=== PATIENT | male | born 1985 | race Caucasian/White ===

== ENCOUNTER 2024-02-05 08:13 | Emergency (ER) | payer MEDICAID, SELFPAY ==
--- NOTE | ~2024-02-05 | XR_ITS ---
CHEST RADIOGRAPH CLINICAL HISTORY: seizure . COMPARISON: None available TECHNIQUE: Single portable view of the chest. FINDINGS The cardiomediastinal silhouette is unremarkable. Spinal stimulator projects over the left mid to lower lung field, obscuring the underlying parenchyma . Patchy groundglass opacification detected bilaterally, most concentrated the bilateral pulmonary kavon , probable sequelae of low lung volumes. No focal infiltrate. Visualized osseous structures and soft tissues are unremarkable. IMPRESSION: No focal infiltrate or effusion. Reviewed, dictated and finalized at location [facility]
[2024-02-05 08:15] VITALS: BP 125/82; PULSE 106; RESP 27; O2SAT 97
--- NOTE | 2024-02-05 08:18 | ED.GENADULT ---
HPI - General Adult General Chief complaint: Seizure Stated complaint: seizing Time Seen by Provider: 02/05/24 08:17 History of Present Illness HPI narrative: 38-year-old male with history of traumatic brain injury and seizure disorder presents to the emergency department for evaluation for recurrent seizure. Patient does have a vagal nerve stimulator in place. Patient typically follows up with Dr. Noble and [facility]. Patient typically stays at a senior living and [place] but is home for the holidays. Mother noticed he was having a seizure this morning and did use his vagal nerve stimulator. EMS was called for the persistent seizure in patient was treated with 20 mg of Valium intranasally times to by mother and than as additional 10 mg IV Versed my EMS. Upon arrival to the emergency department patient is alert making eye contact. Related Data Allergies Allergy/AdvReac Type Severity Reaction Status Date / Time marijuana (cannabis) AdvReac Hives Verified 02/05/24 08:31 cillins Allergy Hives Uncoded 02/05/24 08:31 Review of Systems Review of Systems: All systems reviewed & are unremarkable except as noted in HPI and below Exam Narrative: APPEARANCE: Postictal appearing upon arrival to the emergency department. HEAD: normocephalic, atraumatic. EYES: PERRLA/EOMI, conjunctivae clear. NOSE: Normal no drainage EARS:TMS clear with good light reflex. THROAT: Pharynx clear, no exudate. NECK: Supple. No adenopathy, no masses. RESPIRATORY: Airway patent, respirations nonlabored. Clear to auscultation bilaterally, no rales, rhonchi, wheezing. CARDIOVASCULAR: Regular rate and rhythm without murmurs rubs or gallops. ABDOMINAL: Soft, nontender, nondistended, normal bowel sounds MUSCULOSKELETAL: Moves all extremities. Strength/ROM intact, No edema, No calf tenderness. NEURO: Alert. Nonverbal SKIN: Warm, dry. Normal Color Course Vital Signs Vital signs: Vital Signs Pulse Rate 106 H 02/05/24 08:15 Respiratory Rate 27 H 02/05/24 08:15 Blood Pressure 125/82 02/05/24 08:15 Pulse Oximetry 97 02/05/24 08:15 Oxygen Delivery Room Air 02/05/24 08:15 Temperature 97.8 F 02/05/24 12:08 Pulse Rate 84 02/05/24 12:08 Respiratory Rate 18 02/05/24 12:08 Blood Pressure 110/79 02/05/24 12:08 Pulse Oximetry 96 02/05/24 12:08 Oxygen Delivery Room Air 02/05/24 08:47 Medical Decision Making MDM Narrative Medical decision making narrative: 38-year-old male with history of traumatic brain injury presented emergency department for evaluation for increased seizure activity. Patient does have a VNS stimulator and does have history of frequent seizures. Family felt that his seizure frequency had increased over the last 2 days. Mother states that overnight patient had multiple seizures and this morning he had to 20 minute seizures. Upon arrival to the emergency department patient was confused and agitated but no longer having seizure like activity. Patient continued to improve in the emergency department. Patient was afebrile with no leukocytosis and hemoglobin of 13.3 lactic acid of 2.1, no acute abnormalities on the UA and patient was negative for influenza RSV and for COVID. Chest x-ray showed no acute cardiopulmonary abnormality. I did discuss the case with [facility] neurology and they felt with the patient's history intractable seizures that this could still be managed as outpatient. The neurologist did not feel there is going to be any benefit to the patient for inpatient treatment. I did discuss this with the family and they are also comfortable taking the patient back home. They will have close follow-up with to have any medication changes. The neurologist on-call did not feel comfortable making any changes to the med list due to the patient's complex past medical history. Patient was well-appearing at time of discharge. Differential Diagnosis Differential Diagnosis: Status epilepticus, seizure, breakthrough seizure, medication noncompliance, sleep deprivation Vital Signs Vital Signs: Vital Signs Pulse Rate 106 H 02/05/24 08:15 Respiratory Rate 27 H 02/05/24 08:15 Blood Pressure 125/82 02/05/24 08:15 Pulse Oximetry 97 02/05/24 08:15 Oxygen Delivery Room Air 02/05/24 08:15 Temperature 97.8 F 02/05/24 12:08 Pulse Rate 84 02/05/24 12:08 Respiratory Rate 18 02/05/24 12:08 Blood Pressure 110/79 02/05/24 12:08 Pulse Oximetry 96 02/05/24 12:08 Oxygen Delivery Room Air 02/05/24 08:47 Lab Data Lab results reviewed: Yes I reviewed the patient's lab results. 02/05/24 08:55 02/05/24 08:55 Labs: Lab Results 02/05/24 02/05/24 Range/Units 08:55 08:57 WBC 5.3 (4.5-10.0) K/mm3 RBC 4.28 L (4.6-6.20) M/mm3 Hgb 13.3 L (14.0-18.0) g/dL Hct 38.3 L (42.0-52.0) % MCV 89.5 (80-100) fl MCH 31.1 (26-34) pg MCHC 34.7 (32-36) g/dl RDW 14.2 (11.5-14.5) % Plt Count 179 (150-375) k/mm3 MPV 8.9 (7.4-10.4) fl Immature Gran % (Auto) 0.4 (0-0.5) % Neut % (Auto) 59.9 (45.5-73.1) % Lymph % (Auto) 23.9 (18.3-44.2) % [place] % (Auto) 8.8 H (2.6-8.5) % Eos % (Auto) 4.9 H (0-4.4) % Baso % (Auto) 2.1 H (0.2-1.2) % Lymph # (Auto) 1.27 (0.9-3.2) K/mm3 [place] # (Auto) 0.5 (0.1-0.6) K/mm3 Eos # (Auto) 0.3 (0-0.3) K/mm3 Baso # (Auto) 0.1 (0.0-0.1) K/mm3 Abs Immat Gran (auto) 0.02 (0.00-0.031) K/mm3 Absolute Neuts (auto) 3.2 (1.3-6.7) K/mm3 Absolute Nucleated RBC 0.000 (0.0-0.012) K/mm3 Nucleated RBC % 0.0 (0.0-0.2) % Sodium 140 (137-145) mmol/L Potassium 4.0 (3.4-5.0) mmol/L Chloride 110 H (98-107) mmol/L Carbon Dioxide 24 (22-30) mmol/L Anion Gap 6 (4-12) mmol/L BUN 21 H (9-20) mg/dL Creatinine 0.90 (0.7-1.3) mg/dL Estim Creat Clear Calc 99 ml/min Estimated GFR > 60 (59 - ) Glucose 102 (65-110) mg/dL Lactic Acid 2.1 H (0.7-2.0) mmol/L Calcium 9.6 (8.4-10.2) mg/dL Total Bilirubin 0.6 (0.2-1.3) mg/dL AST 28 (17-59) U/L ALT 43 (6-50) U/L Alkaline Phosphatase 120 (38-126) U/L Total Protein 8.0 (6.3-8.2) g/dL Albumin 4.6 (3.5-5.1) g/dL Urine Color Yellow (Yellow) Urine Appearance Clear (Clear) Urine pH 6.5 (5.0-9.0) Ur Specific [place] 1.022 (1.001-1.035) Urine Protein Negative (Negative) mg/dL Urine Glucose (UA) Negative (Negative) mg/dL Urine Ketones Negative (Negative) mg/dL Ur Blood (Man) Negative (Negative) Urine Nitrate Negative (Negative) Urine Bilirubin Negative (Negative) Urine Urobilinogen 1.0 (<2.0) mg/dL Leukocyte Esterase Rfl Negative (Negative) CHAPIS/UL Influenza A (RT-PCR) Negative (Negative) Influenza B (RT-PCR) Negative (Negative) RSV (RT-PCR) Negative (Negative) SARS-CoV-2 RNA (RT-PCR) Negative (Negative) Imaging Data Radiologist's impression: Impressions Chest X-Ray 02/05/24 10:08 IMPRESSION: No focal infiltrate or effusion. Discharge Plan Discharge Clinical Impression: Intractable seizure disorder Patient Disposition: Home, Self-Care Condition: Stable Instructions: Antibiotic Form, Epilepsy (ED) Additional Instructions: Continue to have close follow-up with neurology for potential medication changes. Patient Language: Italian Follow-up/Referrals: Rajesh,MD Gulshan [Primary Care Provider] -
[2024-02-05] MEDS: LORazepam INJ (*CRX) 2 MG/ML VIAL IV PUSH (08:36)
[2024-02-05 08:47] VITALS: PULSE 86; O2SAT 96
[2024-02-05] MEDS: SODIUM CHLORIDE 0.9% IV 1,000 ML 999 ML IV CONT (09:00)
[2024-02-05 09:03] LABS: Basophils Absolute Auto 0.1 K/mm3 (0.0-0.1); Basophils Percent Auto 2.1 % (0.2-1.2); Eosinophils Absolute Auto 0.3 K/mm3 (0-0.3); Eosinophils Percent Auto 4.9 % (0-4.4); Hematocrit 38.3 % (42.0-52.0); Hemoglobin 13.3 g/dL (14.0-18.0); Immature Granulocyte Absolute 0.02 K/mm3 (0.00-0.031); Immature Granulocyte Percent A 0.4 % (0-0.5); Lymphocytes Absolute Auto 1.27 K/mm3 (0.9-3.2); Lymphocytes Percent Auto 23.9 % (18.3-44.2); Mean Corpuscular HGB Conc 34.7 g/dl (32-36); Mean Corpuscular Hemoglobin 31.1 pg (26-34); Mean Corpuscular Volume 89.5 fl (80-100); Mean Platelet Volume 8.9 fl (7.4-10.4); Monocytes Absolute Auto 0.5 K/mm3 (0.1-0.6); Monocytes Percent Auto 8.8 % (2.6-8.5); Neutrophils Absolute Auto 3.2 K/mm3 (1.3-6.7); Neutrophils Percent Auto 59.9 % (45.5-73.1); Platelet Count Result 179 k/mm3 (150-375); Red Blood Count 4.28 M/mm3 (4.6-6.20); Red Cell Distribution Width 14.2 % (11.5-14.5); White Blood Count 5.3 K/mm3 (4.5-10.0)
[2024-02-05 09:15] LABS: Alanine Aminotransferase 43 U/L (6-50); Albumin Level 4.6 g/dL (3.5-5.1); Alkaline Phosphatase 120 U/L (38-126); Anion Gap 6 mmol/L (4-12); Aspartate Amino Transferase 28 U/L (17-59); Bilirubin,Total 0.6 mg/dL (0.2-1.3); Blood Urea Nitrogen 21 mg/dL (9-20); Calcium 9.6 mg/dL (8.4-10.2); Carbon Dioxide 24 mmol/L (22-30); Chloride 110 mmol/L (98-107); Estimated CRCL calculation 99 ml/min; Estimated Glomerular Filt Rate > 60; Glucose 102 mg/dL (65-110); Sodium 140 mmol/L (137-145)
[2024-02-05 09:16] LABS: Lactic Acid Reflex 2.1 mmol/L (0.7-2.0)
[2024-02-05 09:19] LABS: Add Urine Microscopic? NO; Appearance Urine Clear (Clear); Bilirubin Urine Negative (Negative); Blood Urine Negative (Negative); Color Urine Yellow (Yellow); Glucose Urine UA Negative (Negative); Ketones Urine Negative (Negative); Leukocyte Esterase Ur Negative LEU/UL (Negative); Nitrate Urine Negative (Negative); Protein Urine Negative (Negative); Specific Grav Ur 1.022 (1.001-1.035); pH Urine 6.5 (5.0-9.0)
[2024-02-05 09:32] VITALS: BP 109/65; PULSE 87; RESP 19; TEMP 36.6; O2SAT 93
[2024-02-05 09:40] LABS: Influenza A QL RT-PCR Negative (Negative); Influenza B QL RT-PCR Negative (Negative); RSV RNA, RT-PCR Negative (Negative); SARS-CoV-2 RNA PCR Negative (Negative)
[2024-02-05 10:00] VITALS: BP 110/60; PULSE 88; RESP 18; TEMP 36.5; O2SAT 98
[2024-02-05 11:00] VITALS: BP 105/70; PULSE 88; RESP 18; O2SAT 95
[2024-02-05 12:01] LABS: Reflex Lactic Acid Yes or No Add Lactic
[2024-02-05 12:08] VITALS: BP 110/79; PULSE 84; RESP 18; TEMP 36.6; O2SAT 96
--- OUTSIDE RECORDS SUMMARY | 2024-02-12 05:05 | XMS_ITS | Encounter Summary ---
Author Organization [facility] Address [address] [place] [address] Care Team Providers Care Drag Seiner Name Role Phone Gulshan Mena MD Primary Care Provider Reason for Visit * Reason Onset Date Comments Follow-up 05/24/2020 Encounter Details Date Type Department Care Team (Late st Contact Info) Description 05/24/2020 Telephone [facility] [address] [facility] [place] [address] Felicitas Chou Follow-up Social History Tobacco Use Types Packs/Day Years Used Date Smoking Tobacco: Never Smokeless Tobacco: Never Alcohol Use Standard Drinks/Week Comments No 0 (1 standard drink = 0.6 oz pur e alcohol) Sex and Gender Information Value Date Recorded Sex Assigned at Not on file Gender Identity Not on file Sexual Orientation Not on file documented as of this encounter Miscellaneous Notes * Telephone Encounter - Felicitas Chou - 05/24/2020 11:44 AM CDT Contact patient. Reviewed surgery instructions for tomorrow. Arrival time 0700am to [facility] 1st floor ACU. NPO after midnight. Patients mom POA. Left patients [facility] message [facility] Patients mom # [phone]. documented in this encounter Plan of Treatment Not on file documented as of this encounter Visit Diagnoses Not on filedocumented in this encounter Care Teams Drag Seiner Relationship Specialty Start Date End Date Gulshan Mena MD [address] [place] [address] PCP - General Family Medicine 12/19/09 documented as of this encounter
--- OUTSIDE RECORDS SUMMARY | 2024-02-12 05:05 | XMS_ITS | Encounter Summary ---
Author Organization [facility] Address [address] [place] [address] Care Team Providers Care Website Project Manager Name Role Phone Gulshan Mena MD Primary Care Provider [phone] Encounter Details Date Type Department Care Team (Latest Contact Info) Description 05/01/2018 9:10 AM CDT - 05/01/2018 9:47 AM CDT Hospital Encounter [facility] RAD OP [address] [place] [id number] Michi Longo MD [address] [place] [address] Discharge Disposition: Home or Self Care Social History Tobacco Use Types Packs/Day Years Used Date Smoking Tobacco: Never Smokeless Tobacco: Never Alcohol Use Standard Drinks/Week Comments No 0 (1 standard drink = 0.6 oz pur e alcohol) Sex and Gender Information Value Date Recorded Sex Assigned at Not on file Gender Identity Not on file Sexual Orientation Not on file documented as of this encounter Medications at Time of Discharge Medication Sig Dispensed Refills Start Date End Date bisacodyl (DULCOLAX) 10 MG suppository Insert 10 mg into the rectum as needed for Constipation bisacodyl EC (BISACODYL EC) 5 MG tabletIndications:5 pm on day 4 of No BM Take 5 mg by mouth once as needed for Constipation Reasons: 5 pm on day 4 of No BM busPIRone (BUSPAR) 10 MG tablet 1 Tab 3 times daily. cloBAZam (ONFI) 10 MG tabletIndications:At bedtime Take 20 mg by mouth once daily Reasons: At bedtime cloNIDine (CATAPRES) 0.1 MG tablet Take 0.3 mg by mouth once daily docusate sodium (COLACE) 100 MG capsule Take 100 mg by mouth 2 times daily. 12/20/2009 Fexofenadine HCl (MUCINEX ALLERGY PO) Take 400 mg by mouth as needed lacosamide (VIMPAT) 200 MG tablet Take 100 tablets by mouth 2 times daily lamoTRIgine (LAMICTAL) 150 MG tablet 2 Tabs 3 times daily. loperamide (IMODIUM) 2 MG capsuleIndications:Sara rrhea Take 2 mg by mouth as needed for Diarrhea Reasons: Diarrhea loratadine (CLARITIN) 10 MG tablet Take 10 mg by mouth daily. Magnesium Hydroxide (MILK OF MAGNESIA PO) Take 30 mL by mouth every Saturday & Saturday multivitamin daily (THERAGRAN) tablet Take 1 Tab by mouth daily with food. Nutritional Supplements (ENSURE NUTRITION SHAKE PO) Take by mouth as needed Polyethylene Glycol 3350 (MIRALAX PO) Take 8.5 g by mouth as needed propranolol (INDERAL) 80 MG tablet Take 80 mg by mouth once pseudoephedrine (SUDAFED) 30 MG tabletIndications:Nasa l Congestion Take 10 mg by mouth as needed for Nasal Congestion Reasons: Stuffy Nose SALINE NASAL SPRAY NA [place] into the nose as needed VITAMIN D PO Take 50,000 Units by mouth every 14 days Take one tab weekly zonisamide (ZONEGRAN) 100 MG capsule Take 100 mg by mouth 2 times daily raNITIdine (ZANTAC) 150 MG tablet Take 150 mg by mouth 2 times daily 05/24/2020 documented as of this encounter Plan of Treatment Not on file documented as of this encounter Visit Diagnoses Not on filedocumented in this encounter Care Teams Website Project Manager Relationship Specialty Start Date End Date Gulshan Mena MD [address] [place] [address] PCP - General Family Medicine 12/19/09 documented as of this encounter
--- OUTSIDE RECORDS SUMMARY | 2024-02-12 05:05 | XMS_ITS | Encounter Summary ---
Author Organization [facility] Address [address] [place] [address] Care Team Providers Care Garland Machine Operator Name Role Phone Gulshan Mena MD Primary Care Provider [phone] Encounter Details Date Type Department Care Team (Latest Contact Info) Description 07/24/2018 9:40 AM CDT - 07/24/2018 11:59 PM CDT Hospital Encounter [facility] RAD OP [address] [place] [phone] Michi Longo MD [address] [place] [address] Discharge Disposition: Home or Self Care Social [...] 3 times daily. loperamide (IMODIUM) 2 MG capsuleIndications:Di arrhea Take 2 mg by mouth as needed [...] by mouth once pseudoephedrine (SUDAFED) 30 MG tabletIndications:Danilo al Congestion Take 10 mg by mouth as needed for Nasal Congestion Reasons: Stuffy Nose SALINE NASAL SPRAY NA [place] into the nose as needed VITAMIN D PO Take 50,000 Units by mouth every 14 days Take one tab weekly zonisamide (ZONEGRAN) 100 MG capsule Take 100 mg by mouth 2 times daily oxyCODONE-acetaminoph en (PERCOCET) 5-325 MG tablet Take 1 tablet by mouth every 4 hours as needed for Pain Do not exceed 3 grams of acetaminophen (TYLENOL) daily. 20 tablet 05/16/2018 05/24/2020 raNITIdine (ZANTAC) 150 MG tablet Take 150 mg by mouth 2 times daily 05/24/2020 documented as of this encounter Plan of Treatment Not on file documented as of this encounter Procedures Procedure Name Priority Date/Time Associated Diagnosis Comments XR CHEST 1VW Routine 07/24/2018 10:08 AM CDT Development delay documented in this encounter Results * XR CHEST 1VW (07/24/2018 10:08 AM CDT) Anatomical Region Laterality Modality Chest Radiographic Vanessa ging 07/24/2018 10:1 8 AM CDT Impressions 07/24/2018 11:33 AM CDT FINDINGS/IMPRESSION: A vagal nerve stimulator battery pack superimposes the inferior left hemothorax, with lead extending up the left neck. The lungs are hypoinflated with bronchovascular crowding. There is mild left basilar atelectasis. There is no pleural effusion or pneumothorax. The cardiomediastinal silhouette is normal. The visible bony thorax is intact. Dictated by James Black MD (operations vice president). This report was approved ??by James Black ?? on 07/24/2018 10:51 AM . Kristin, Dr. Dr. KATARINA BALDERRAMA MD have personally reviewed and interpreted this examination/study. This report was electronically signed by Dr. KATARINA BALDERRAMA MD ??on 07/24/2018 11:33 AM . Narrative 07/24/2018 11:33 AM CDT EXAMINATION: XR CHEST 1VW HISTORY: post op eval COMPARISON: Chest radiograph dated 05/16/2018. Procedure Note Katarina Balderrama MD - 07/24/2018 EXAMINATION: XR CHEST 1VW HISTORY: post op eval COMPARISON: Chest radiograph dated 05/16/2018. FINDINGS/IMPRESSION: A vagal nerve stimulator battery pack superimposes the inferior left hemothorax, with lead extending up the left neck. The lungs are hypoinflated with bronchovascular crowding. There is mild left basilar atelectasis. There is no pleural effusion or pneumothorax. The cardiomediastinal silhouette is normal. The visible bony thorax isintact. Dictated by James Black MD (operations vice president). This report was approved by James Black on 07/24/2018 10:51 AM . Kristin, Dr. Dr. KATARINA BALDERRAMA MD have personally reviewed and interpretedthis examination/study. This report was electronically signed by Dr. KATARINA BALDERRAMA MD on 07/24/2018 11:33 AM . Diego Olvera MD DIAGNOSTIC IMAGING [facility] documented in this encounter Visit Diagnoses Diagnosis Development delay Unspecified delay in development documented in this encounter Care Teams Garland Machine Operator Relationship Specialty Start Date End Date Gulshan Mena MD [address] [place] [address] PCP - General Family Medicine 12/19/09 documented as of this encounter
--- OUTSIDE RECORDS SUMMARY | 2024-02-12 05:05 | XMS_ITS | Encounter Summary ---
Author Organization [facility] Address [address] [place] [address] Care Team Providers Care Intramural Director Name Role Phone Gulshan Mena MD Primary Care Provider [phone] Reason for Visit * Reason Onset Date Comments Surgery Scheduling 05/13/2018 Encounter Details Date Type Department Care Team (Late st Contact Info) Description 05/13/2018 Telephone [facility] [address] [place] [address] Felicitas Chou Surgery Scheduling Social History Tobacco Use Types Packs/Day Years [...] * Telephone Encounter - Felicitas Chou - 05/13/2018 10:43 AM CDT Spoke with Emmy from nursing facility. Surgery date scheduled for 05/16/2018 [id number]. NPO after midnight can only have small sips of water for anti-seizure medications. Emmy verbalized understanding with no further questions. Patient consent was obtain by patients mother. documented in this encounter Plan of Treatment Not on file documented as of this encounter Visit Diagnoses Not on filedocumented in this encounter Care Teams Intramural Director Relationship Specialty Start Date End Date Gulshan Mena MD [address] [place] [address] PCP - General Family Medicine 12/19/09 documented as of this encounter
--- OUTSIDE RECORDS SUMMARY | 2024-02-12 05:05 | XMS_ITS | Encounter Summary ---
Author Organization [facility] Address [address] [place] [address] Care Team Providers Care Quirk Sander Name Role Phone Gulshan Mena MD Primary Care Provider [phone] Reason for Visit * Reason Comments Post-Op WOUND CHECK Encounter Details Date Type Department Care Team (Late st Contact Info) Description 05/29/2018 8:30 AM CDT Office Visit [facility] [address] [place] [address] Michi Longo MD [address] [place] [address] Status post VNS (vagus nerve stimulator) placement (Primary Dx) Social History Tobacco Use Types Packs/Day Years Used Date Smoking Tobacco: Never Smokeless Tobacco: Never Tobacco Cessation:Counseling Given: No Alcohol Use Standard Drinks/Week Comments No 0 (1 standard drink = 0.6 oz pur e alcohol) Sex and Gender Information Value Date Recorded Sex Assigned at Not on file Gender Identity Not on file Sexual Orientation Not on file documented as of this encounter Last Filed Vital Signs Vital Sign Reading Time Taken Comments Blood Pressure 106/72 05/29/2018 8:19 AM CDT Pulse 70 05/29/2018 8:19 AM CDT Temperature 36.1 ??C (96.9 ??F) 05/29/2018 8:19 AM CD T Respiratory Rate - - Oxygen Saturation - - Inhaled Oxygen Concentration - - Weight 83.9 kg (185 lb) 05/29/2018 8:19 AM CDT Height 170.2 cm (5' 7 ) 05/29/2018 8:19 AM CDT Body Mass Index 28.98 05/29/2018 8:19 AM CDT documented in this encounter Patient Instructions * Patient Instructions* Felicitas Chou - 05/29/2018 8:51 AM CDT Follow up in 6 weeks for wound check Discontinue narcotics For any questions please call Felicitas [phone] documented in this encounter Progress Notes * Michi Longo MD - 05/29/2018 8:53 AM CDT Note from resident reviewed, edited, patient seen and examined, no new images to review, and situation discussed with patient;s caregivers. For additional details please refer to communication to referring physician. * Koby Almanza MD - 05/29/2018 8:36 AM CDT Neurosurgery Clinic Progress Note Chief Complaint (CC): Postoperative follow up HISTORY OF PRESENT ILLNESS (HPI): Travis Beebe is a 33 year-old male with history of Emmett-Gastaut syndrome, autism spectum disorded, mental retardation, refractory generalized non- convulsive epilepsy on four different antiepileptic medications with initial left sided vagal nerve stimulator(VNS) placed in 2013 with battery reached the end of its life now status post left VNS generator revision with [employer] system on 05/16/2018. He is here today for a 2 weeks follow after his recent surgery. Patient is unable to provide any significant history, he is accompanied today by his nurse. Before his recent revision he had 12 to 25 seizures over a month period lasting from 1 to 10 minutes each. Onset of seizures is reported back to 1997. After his recent revision he has had 3 seizures of one minute duration. Left chest incision clean dry well approximated without surrounding erythema or swelling. Past Medical History: Diagnosis Date ??? ADHD (attention deficit hyperactivity disorder) ??? Aggression - adjustment disorder ??? Autism ??? Constipation ??? GERD (gastroesophageal reflux disease) ??? MR (mental retardation) severe ??? Seizure disorder last one 02/13/2014 ??? Static encephalopathy Past Surgical History: Procedure Laterality Date ??? DEEP BRAIN NEURO STIMULATOR Left 05/16/2018 Left; VAGAL NERVE NEUROSTIMULATOR GENERATOR REPLACEMENT ??? EGD 12/20/09 Marcu--gastritis ??? OTHER SURGERY 10/2013 V and S inplanted Current Outpatient Prescriptions Medication ??? bisacodyl (DULCOLAX) 10 MG suppository ??? bisacodyl EC (BISACODYL EC) 5 MG tablet ??? busPIRone (BUSPAR) 10 MG tablet ??? cloBAZam (ONFI) 10 MG tablet ??? cloNIDine (CATAPRES) 0.1 MG tablet ??? docusate sodium (COLACE) 100 MG capsule ??? Fexofenadine HCl (MUCINEX ALLERGY PO) ??? lacosamide (VIMPAT) 200 MG tablet ??? lamoTRIgine (LAMICTAL) 150 MG tablet ??? loperamide (IMODIUM) 2 MG capsule ??? loratadine (CLARITIN) 10 MG tablet ??? Magnesium Hydroxide (MILK OF MAGNESIA PO) ??? multivitamin daily (THERAGRAN) tablet ??? Nutritional Supplements (ENSURE NUTRITION SHAKE PO) ??? oxyCODONE-acetaminophen (PERCOCET) 5-325 MG tablet ??? Polyethylene Glycol 3350 (MIRALAX PO) ??? propranolol (INDERAL) 80 MG tablet ??? pseudoephedrine (SUDAFED) 30 MG tablet ??? raNITIdine (ZANTAC) 150 MG tablet ??? SALINE NASAL SPRAY NA ??? VITAMIN D PO ??? zonisamide (ZONEGRAN) 100 MG capsule No current facility-administered medications for this visit. Allergies Allergen Reactions ??? Amoxicillin ??? Dilantin [Phenytoin Sodium] ??? Tegretol [Carbamazepine] Social History Substance Use Topics ??? Smoking status: Never Smoker ??? Smokeless tobacco: Never Used ??? Alcohol use No Family: No family history on file. REVIEW OF SYSTEMS Pertinent items are noted in HPI. PHYSICAL EXAM BP 106/72 (BP SITE: LEFT ARM, BP POSITION: SITTING, BP CUFF SIZE: 11) Pulse 70 Temp 96.9 ??F (36.1 ??C) (Axillary) Ht 5' 7 (1.702 m) Wt 185 lb (83.9 kg) BMI 28.98 kg/m2 General: No acute distress Chest: L upper chest incision well approximated without surrounding erythema or swelling Cardiovascular: Regular rate Respiratory: non-labored breathing Abdominal: Soft, non tender, non distended Neuro: The patient is awake, alert, follows simple commands. No verbal output during this visit. Pupils are equal and reactive to light. Face is symmetric. Tongue protrudes??midline. Muscle strength is symmetric and good against resistance throughout, with slightly increased tone to the left lower e xtremity.??Sensation unable to assess, withdraws all extremities to light painful stimuli. Deep tendon reflexes Left patellar +3, Right patellar +2, biceps normal +2 and symmetric bilaterally. Gait is unsteady. RADIOLOGICAL REVIEW: No new neuroimaging taken on this visit. Assessment/Plan: Travis Beebe has a [place]-Gastaut syndrome, autism spectum disorded, mental retardation, refractory generalized non-convulsive epilepsy most recently status post left VNS generator revision with [employer] system on 05/16/2018. He is here today for a 2 weeks follow after his recent surgery. He is recovering well. Frequency and duration of seizures has decreased. We would like to see the patient back in 6 weeks for another wound check. Please establish appointment with neurology for generator reprogramming. Please do not hesitate to contact our office with any questions or concerns. Koby Almanza MD 05/29/2018 8:36 AM documented in this encounter Plan of Treatment Not on file documented as of this encounter Visit Diagnoses Diagnosis Status post VNS (vagus nerve stimulator) placement- Primary Other postprocedural status documented in this encounter Care Teams Quirk Sander Relationship Specialty Start Date End Date Gulshan Mena MD [address] [place] [address] PCP - General Family Medicine 12/19/09 documented as of this encounter
--- OUTSIDE RECORDS SUMMARY | 2024-02-12 05:05 | XMS_ITS | Patient Health Summary ---
Author Organization [facility] Address [address] [place] [address] Care Team Providers Care Eyedotter Name Role Phone Gulshan Mena MD Primary Care Provider [phone] Note from [facility] [place],non-owned Affiliates and Associated Physician Practices is amultiple site organization consisting of ambulatory clinics and hospital sitesin [place], [place], [place] and [place]. This disclosure is being madepursuant to the Care Everywhere program and may not contain all information available regarding this patient. Last updated 17.[facility] Allergies * Amoxicillin(Urticaria) -Medium Criticality * Phenytoin Sodium(Urticaria) -Medium Criticality * Penicillins(Urticaria) -High Criticality * Carbamazepine(Angioedema) -High Criticality Medications * Be aware that medications may not be up to date on this document. Alwaysverify current medications with the patient. * lacosamide (VIMPAT) 200 MG tablet Take 100 tablets by mouth 2 times daily * lamoTRIgine (LAMICTAL) 150 MG tablet 2 Tabs 3 times daily. * busPIRone (BUSPAR) 10 MG tablet 1 Tab 3 times daily. * VITAMIN D PO Take 50,000 Units by mouth every 14 days Take one tab weekly * multivitamin daily (THERAGRAN) tablet Take 1 Tab by mouth daily with food. * loratadine (CLARITIN) 10 MG tablet Take 10 mg by mouth daily. * docusate sodium (COLACE) 100 MG capsule(Started 12/20/2009) Take 100 mg by mouth 2 times daily. * cloBAZam (ONFI) 10 MG tablet Take 20 mg by mouth once daily Reasons: At bedtime * cloNIDine (CATAPRES) 0.1 MG tablet Take 0.3 mg by mouth once daily * Magnesium Hydroxide (MILK OF MAGNESIA PO) Take 30 mL by mouth every Saturday & Saturday * Fexofenadine HCl (MUCINEX ALLERGY PO) Take 400 mg by mouth as needed * Nutritional Supplements (ENSURE NUTRITION SHAKE PO) Take by mouth as needed * Polyethylene Glycol 3350 (MIRALAX PO) Take 8.5 g by mouth as needed * SALINE NASAL SPRAY NA [place] into the nose as needed * propranolol (INDERAL) 80 MG tablet Take 80 mg by mouth once * zonisamide (ZONEGRAN) 100 MG capsule Take 100 mg by mouth 2 times daily * bisacodyl EC (BISACODYL EC) 5 MG tablet Take 5 mg by mouth once as needed for Constipation Reasons: 5 pm on day 4 of No BM * bisacodyl (DULCOLAX) 10 MG suppository Insert 10 mg into the rectum as needed for Constipation * loperamide (IMODIUM) 2 MG capsule Take 2 mg by mouth as needed for Diarrhea Reasons: Diarrhea * pseudoephedrine (SUDAFED) 30 MG tablet Take 10 mg by mouth as needed for Nasal Congestion Reasons: Stuffy Nose * diazePAM (VALTOCO 10 MG DOSE) 10 MG/0.1ML nasal spray(Started 03/18/2020) [place] 10 mg into the nose * famotidine (PEPCID) 20 MG tablet Take 20 mg by mouth 2 times daily * HYDROcodone-acetaminophen (NORCO) 5-325 MG tablet(Started 05/25/2020) Take 1 (one) tablet by mouth every 6 hours as needed for Pain * diazePAM (Valtoco 10 MG Dose) 10 MG/0.1ML nasal spray(Started 01/11/2024) [place] 0.1 mL into the nose as needed for Seizures Active Problems Problem Noted Date Diagnosed Date Status post VNS (vagus nerve stimulator) placeme nt 10/06/2017 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, complex pa rtial, with intractable epilepsy 10/15/2013 Development delay 10/14/2013 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 Seizure 07/16/2013 Intractable [place]-Gastaut s yndrome without status epilepticus 10/20/2012 Active autistic disorder 07/10/2012 Developmental delay 07/10/2012 ADHD (attention deficit hyperactivity disorder) 08/17/2009 Intractable epilepsy 08/17/2009 Sleep disorder 08/17/2009 Static encephalopathy 08/17/2009 Battery end of life of vagus nerve stimulator Immunizations * INFLUENZA(Given 11/05/2019) Social History Tobacco Use Types Packs/Day Years Used Date Smoking Tobacco: Never Smokeless Tobacco: Never Tobacco Cessation:Counseling Given: No Alcohol Use Standard Drinks/Week Comments No 0 (1 standard drink = 0.6 oz pur e alcohol) Sex and Gender Information Value Date Recorded Sex Assigned at Not on file Gender Identity Not on file Sexual Orientation Not on file Last Filed Vital Signs Vital Sign Reading Time Taken Comments Blood Pressure 120/82 01/11/2024 3:39 PM [facility] Pulse 98 01/11/2024 3:39 PM [facility] Temperature 37 ??C (98.6 ??F) 01/11/2024 3:39 PM [facility] [employer] Respiratory Rate 18 09/01/2020 9:32 AM CDT Oxygen Saturation 100% 01/11/2024 3:39 PM [facility] Inhaled Oxygen Concentration - - Weight 83.9 kg (185 lb) 09/01/2020 9:32 AM CDT Height 170.2 cm (5' 7 ) 09/01/2020 9:32 AM CDT Body Mass Index 28.98 09/01/2020 9:32 AM CDT Medical Devices Implanted Type Area Technical Support Technician Device Identifier Shelf Expiration Date Model / Serial / Lot Gntr Nrstm Vagus Nrv Ep - [id number] Implanted:Qty: 1 on 05/25/2020 by Michi Longo MD at [facility] Left: Chest [employer] 12/22/2021 [id number] 2 / [id number] / Explanted Type Area Technical Support Technician Device Identifier Shelf Expiration Date Model / Serial / Lot Sys Ns Vagus Nrv Eplp - [id number] Implanted:Qty: 1 on 05/16/2018 by Michi Longo MD at [facility] Explanted:Qty: 1 on 05/25/[address] [facility] Left: Chest [employer] 08/29/2019 1000 / [id number] / Procedures * CARDIAC EKG ORDER(Performed 01/13/2024) * XR CHEST 1VW PORTABLE(Performed 01/11/2024) Performed for Seizure (HCC) * LACTIC ACID BLOOD REFLEX TO REPEAT(Performed 01/11/2024) * MAGNESIUM BLOOD(Performed 01/11/2024) * CK BLOOD(Performed 01/11/2024) * COMPREHENSIVE METABOLIC PANEL(Performed 01/11/2024) * CBC W AUTO DIFFERENTIAL(Performed 01/11/2024) * EKG 12-LEAD(Performed 01/11/2024) Performed for Seizure (HCC) * LAB RESULTS ORDER(Performed 05/27/2020) * XR CHEST 1VW PORTABLE(Performed 05/25/2020) Performed for Status post VNS (vagus nerve stimulator) placement * PATHOLOGY TISSUE(Performed 05/25/2020) Performed for Battery end of life of vagus nerve stimulator * VA INSRT/REPL CRANIAL NEUROSTIM GEN/RECV; W/1 ARRAY(Performed 05/25/2020) Performed for Battery end of life of vagus nerve stimulator * ENDOTRACHEAL TUBE NOTE(Performed 05/25/2020) * PT-INR [facility](Performed 04/21/2020) Performed for Pre-op testing * PTT [facility](Performed 04/21/2020) Performed for Pre-op testing * CBC W AUTO DIFFERENTIAL(Performed 04/21/2020) Performed for Pre-op testing * BASIC METABOLIC PANEL (CALCIUM TOTAL)(Performed 04/21/2020) Performed for Pre-op testing * XR NECK SOFT TISSUE(Performed 04/21/2020) Performed for Pre-op testing * XR CHEST 2VW(Performed 04/21/2020) Performed for Pre-op testing * EKG 12-LEAD(Performed 04/21/2020) Performed for Pre-op testing * CARDIAC EKG ORDER(Performed 08/21/2019) * XR CHEST 1VW(Performed 07/24/2018) Performed for Development delay * CARDIAC PROCEDURE ORDER(Performed 05/19/2018) * XR CHEST 1VW PORTABLE(Performed 05/16/2018) Performed for Status post VNS (vagus nerve stimulator) placement * PATHOLOGY TISSUE(Performed 05/16/2018) Performed for Diagnosis unknown * INSERTION/REPLACEMENT CRANIAL NERVE (VAGUS) NEUROSTIMULATOR(Performed 05/16/2018) Performed for Diagnosis unknown * ENDOTRACHEAL TUBE NOTE(Performed 05/16/2018) * CARDIAC EKG ORDER(Performed 05/08/2018) * XR NECK SOFT TISSUE(Performed 05/01/2018) Performed for Seizures (HCC), Battery end of life of vagus nerve stimulator, Pre-op testing * XR CHEST 2VW(Performed 05/01/2018) Performed for Seizures (HCC), Battery end of life of vagus nerve stimulator, Pre-op testing * CBC W AUTO DIFFERENTIAL(Performed 05/01/2018) Performed for Intractable [place]-Gastaut syndrome without status epilepticus (HCC), Seizure (HCC) * PT-INR [facility](Performed 05/01/2018) Performed for 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 (HCC), Seizure (HCC) * PTT [facility](Performed 05/01/2018) Performed for 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 (HCC), Seizure (HCC) * BASIC METABOLIC PANEL (CALCIUM TOTAL)(Performed 04/29/2018) Performed for Pre-op testing * EKG 12-LEAD(Performed 04/29/2018) Performed for Pre-op testing * LAB HISTORICAL RESULTS-ONBASE(Performed 01/03/2010) * EGD(Performed 12/20/2009) * HELICOBACTER PYLORI UREASE(Performed 12/20/2009) * GROSS + MICRO EXAM(Performed 12/20/2009) Results * CARDIAC EKG ORDER (01/13/2024 3:49 PM [facility]MWORK [employer]P[facility]) Only the most recent of3 resultswithin the time period is included. Narrative 01/13/2024 3:49 PM [facility] Ordered by an unspecified provider. Scanned Document CARDIAC SERVICES ORD ERABLES * XR CHEST 1VW PORTABLE (01/11/2024 1:48 PM [facility]WORK [employer]P[facility]) Only the most recent of3 resultswithin the time period is included. Anatomical Region Laterality Modality Chest Computed Radiogr aphy 01/11/2024 1:55 PM [facility] [employer] Impressions 01/11/2024 1:56 PM [facility] IMPRESSION: No acute cardiopulmonary abnormality. > Interpreting Provider: Destini Ontiveros MD on 01/11/2024 1:56 PM Narrative 01/11/2024 1:56 PM [facility] PROCEDURE: ??XR CHEST 1VW PORTABLE DATE/TIME OF EXAM: ??01/11/2024 1:48 PM INDICATION: R56.9: Unspecified convulsions (HCC). COMPARISON: None. FINDINGS: The cardiomediastinal silhouette is within normal limits. A neurostimulator device projects over the left chest wall. The lungs are clear. No pleural effusion or pneumothorax. No acute osseous abnormality. Procedure Note Destini Ontiveros MD - 01/11/2024 PROCEDURE: XR CHEST 1VW PORTABLE DATE/TIME OF EXAM: 01/11/2024 1:48 PM INDICATION: R56.9: Unspecified convulsions (HCC). COMPARISON: None. FINDINGS: The cardiomediastinal silhouette is within normal limits. Aneurostimulator device projects over the left chest wall. The lungs are clear. Nopleural effusion or pneumothorax. No acute osseous abnormality. IMPRESSION: No acute cardiopulmonary abnormality. > Interpreting Provider: Destini Ontiveros MD on 01/11/2024 1:56 PM Chip Chacon DO DIAGNOSTIC IMAGING O RDERABLES * (ABNORMAL) LACTIC ACID BLOOD REFLEX TO REPEAT (01/11/2024 12:29 PM [facility]) Pathologist [facility] Lactic Acid 2.3(H) <=2.0 mmol/L 01/11/2024 12:55 PM [facility] Blood BLOOD SPECIMEN / Unknown Venipuncture / Unknown 01/11/2024 12:29 PM [facility] [employer] 01/11/2024 12:30 PM [facility] [employer] Leonor Alvares PA-C LAB - CHEMISTRY OR DERABLES [facility] [address] [place] [address] * (ABNORMAL) CBC W AUTO DIFFERENTIAL (01/11/2024 12:29 PM [facility]) Only the most recent of3 resultswithin the time period is included. WBC 7.3 4.0 - 10.7 x10E9/L 01/11/2024 12:36 PM [facility] RBC Count 4.41 4.30 - 5.80 x10E12/L 01/11/2024 12:36 PM [facility] Hemoglobin 13.7 13.3 - 17.5 g/dL 01/11/2024 12:36 PM [facility] Hematocrit 40.6 38.7 - 51.1 % 01/11/2024 12:36 PM [facility] MCV 92.1 80.0 - 98.0 fL 01/11/2024 12:36 PM [facility] MCH 31.1 26.7 - 33.6 pg 01/11/2024 12:36 PM [facility] MCHC 33.7 31.7 - 36.3 g/dL 01/11/2024 12:36 PM [facility] RDW-CV 13.2 11.3 - 14.8 % 01/11/2024 12:36 PM [facility] Platelet Count 184 150 - 420 x10E9/L 01/11/2024 12:36 PM [facility] MPV 9.2 7.8 - 11.4 fL 01/11/2024 12:36 PM [facility] Neutrophil % 71.8 41.0 - 74.0 % 01/11/2024 12:36 PM [facility] [employer] Lymphocyte % 13.2(L) 17.0 - 47.0 % 01/11/2024 12:36 PM [facility] Monocyte % 11.0 3.0 - 11.0 % 01/11/2024 12:36 PM [facility] Eosinophil % 3.3 0.0 - 7.0 % 01/11/2024 12:36 PM [facility] Basophil % 0.6 0.0 - 1.6 % 01/11/2024 12:36 PM [facility] Immature Granulocytes % 0.1 0.0 - 1.0 % 01/11/2024 12:36 PM [facility] Neutrophil Absolute 5.22 1.60 - 7.50 x10E9/L 01/11/2024 12:36 PM [facility] [employer] Lymphocyte Absolute 0.96(L) 1.00 - 4.40 x10E9/L 01/11/2024 12:36 PM [facility] Monocyte Absolute 0.80 0.15 - 1.00 x10E9/L 01/11/2024 12:36 PM [facility] Eosinophil Absolute 0.24 0.00 - 0.60 x10E9/L 01/11/2024 12:36 PM [facility] Basophil Absolute 0.04 0.00 - 0.13 x10E9/L 01/11/2024 12:36 PM [facility] Blood BLOOD SPECIMEN / Unknown Venipuncture / Unknown 01/11/2024 12:29 PM [facility] [employer] 01/11/2024 12:30 PM [facility] Leonor Alvares PA-C LAB - HEMATOLOGY O RDERABLES [facility] [address] [place] [address] * (ABNORMAL) COMPREHENSIVE METABOLIC PANEL (01/11/2024 12:29 PM [facility] [employer]) Glucose 112(H) 70 - 99 mg/dL 01/11/2024 12:59 PM [facility] Sodium 140 136 - 145 mmol/L 01/11/2024 12:59 PM [facility] Potassium 4.7 3.5 - 5.1 mmol/L 01/11/2024 12:59 PM [facility] Chloride 108(H) 98 - 107 mmol/L 01/11/2024 12:59 PM [facility] CO2 23 22 - 29 mmol/L 01/11/2024 12:59 PM [facility] Calcium 9.7 8.4 - 10.4 mg/dL 01/11/2024 12:59 PM [facility] Anion Gap 9 6 - 16 mmol/L 01/11/2024 12:59 PM [facility] BUN 20(H) 5.3 - 18.7 mg/dL 01/11/2024 12:59 PM [facility] Creatinine 0.99 0.72 - 1.25 mg/dL 01/11/2024 12:59 PM [facility] Alkaline Phosphatase 167(H) 40 - 150 U/L 01/11/2024 12:59 PM [facility] ALT 82(H) 0 - 55 U/L 01/11/2024 12:59 PM [facility] AST 36(H) 5 - 34 U/L 01/11/2024 12:59 PM [facility] Protein Total 8.1 6.4 - 8.3 gm/dL 01/11/2024 12:59 PM [facility] Albumin 4.3 3.4 - 5.0 gm/dL 01/11/2024 12:59 PM [facility] Bilirubin Total 0.5 0.2 - 1.2 mg/dL 01/11/2024 12:59 PM [facility] eGFR by CKD-EPI >90 >=90 mL/min/1.7 3 m2 01/11/2024 12:59 PM [facility] Blood BLOOD SPECIMEN / Unknown Venipuncture / Unknown 01/11/2024 12:29 PM [facility] 01/11/2024 12:30 PM [facility] [employer] Leonor Alvares PA-C LAB - CHEMISTRY OR DERABLES Performing Organization Address City/[facility]/ZIP Co de Phone Number [facility] [address] [place] [phone] * MAGNESIUM BLOOD (01/11/2024 12:29 PM [facility]) Magnesium 1.7 1.6 - 2.6 mg/dL 01/11/2024 12:59 PM [facility] -[facility] Blood BLOOD SPECIMEN / Unknown Venipuncture / Unknown 01/11/2024 12:29 PM [facility] [employer] 01/11/2024 12:30 PM [employer] Leonor Alvares PA-C LAB - CHEMISTRY OR DERABLES [facility] [address] [place] [id number] * (ABNORMAL) CK BLOOD (01/11/2024 12:29 PM [facility]) CK 19(L) 30 - 200 U/L 01/11/2024 12:59 PM [facility] Blood BLOOD SPECIMEN / Unknown Venipuncture / Unknown 01/11/2024 12:29 PM [facility] [employer] 01/11/2024 12:30 PM [employer] Leonor Alvares PA-C LAB - CHEMISTRY OR DERABLES Performing Organization Address City/[facility]/ZIP Co de Phone Number -[facility] [address] [place] [address] * EKG 12-LEAD (01/11/2024 12:19 PM [facility]) Only the most recent of3 resultswithin the time period is included. Ventricular Rate 106 BPM [facility] Atrial Rate 106 BPM [facility] P-R Interval 154 ms [facility] QRS Duration ms 80 ms [facility] Q-T Interval ms 310 ms [facility] QTC Calculation (Bezet) 411 ms [facility] Calculated P Leopold 31 degrees [facility] Calculated R Leopold 45 degrees [facility] Calculated T Leopold 39 degrees [facility] Interpretation EKG Sinus tachycardia Otherwise normal ECG No previous ECGs available Confirmed by FLACO AWAN, FLORESITA ([id number]) on 01/13/2024 1:57:39 PM [facility] 01/11/2024 12:1 9 PM [facility] 01/13/2024 1:57 PM [employer] Leonor Alvares PA-C ECG ORDERABLES [facility] * LAB RESULTS ORDER (05/27/2020 2:41 PM CDT) Narrative 05/27/2020 2:41 PM CDT Ordered by an unspecified provider. Scanned Document LAB - THERAPEUTIC DR DEVI MONITORING ORDERABLES * PATHOLOGY TISSUE (05/25/2020 10:12 AM CDT) Only the most recent of2 resultswithin the time period is included. Case Report Surgical Pathology Report ? Case: [id number] ? Authorizing Provider: ??Michi Longo MD ? Collected: ? 05/25/2020 10:12 AM ? Ordering Location: ? [facility] ?Received: ?05/25/2020 11:36 AM ? Pathologist: ? Teena Samayoa MD ? Specimen: ?Foreign Object, Generator for end of life ? 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 06/06/2020 5:33 PM CDT [facility] Gross Description The requisition and specimen(s) are identified with the patient's name, Travis Granados Beebe. Received fresh without fixative, specimen A is a silver metallic foreign object measuring 4.5 x 3.2 x 0.7 cm. There is a plastic component at one end with a wire connection. This writing on one face of the specimen as follows: [employer]rapy , [employer]ENT[employer]A , MODEL 1000 , SN: [id number] , [employer] There is no attached soft tissue. The specimen is submitted for gross examination only. 06/06/2020 5:33 PM CDT [facility] Disclaimer The performance characteristics of all immunohistochemical and indirect immunofluorescence stains (if any) cited in this report were determined by the Histopathology Laboratory of [facility]. Some of these tests were developed by our own laboratory and have not been cleared or approved by the US Food and Drug Administration. The FDA does not require this test to go through premarket FDA review. These tests are used for clinical purposes. They should not be regarded as investigational or for research. This laboratory is certified under the Clinical Laboratory Improvement Amendments (CLIA) as qualified to perform high complexity clinical laboratory testing. This case has been personally reviewed and interpreted by the attending (teaching) pathologist. 06/06/2020 5:33 PM CDT [facility] Embedded Images 06/06/2020 5:33 PM CDT [facility] Removal MISCELLANEOUS SAMPLES / Unknown 05/25/2020 10:12 AM CDT 05/25/2020 11:36 AM CDT Comment:Pre-op diagnosis: end of VNS battery life Michi Longo MD LAB - PATHOLOGY/CYT OLOGY ORDERABLES Performing Organization Address [facility] Phone Number [facility] [address] [phone] * ETT LINE PERFORMABLE (05/25/2020 9:52 AM CDT) Narrative Maura Max APRN-CRNA - 05/25/2020 9:52 AM CDT Maura Max APRN-CRNA ? 05/25/2020 ??9:52 AM Endotracheal Tube Placement: ? Patient Location: OR. Intubation Event Date/Time: ??05/25/2020 9:38 AM Procedure: intubation (23476). Procedure Section: ?? Sedation: under general anesthesia. Indications for Airway Management: ??anesthesia Induction: standard IV Mask Ventilation: easy. Blade Type: Beatriz Blade Size: 4 Laryngoscopy View: grade 1 (full cords) Intubation Adjuncts: stylet Tube: endotracheal tube Placement: oral Tube type: cuff - inflated Tube Size (MM): 8 Depth of Insertion (CM): 23.5 Cuff Inflated With: air Number of Attempts: 1. Placement Verified By: direct visualization, bilateral breath sounds, chest auscultation and CO2 monitor Tube secured with: ??adhesive tape. Dentition unchanged? ??Yes Difficult Airway? ??No. Procedure Start Time: 05/25/2020 9:38 AM. Staff Section ?? Anesthesia Provider: Maura Max, [employer]STITUTE [employer]IVER-[employer] PROFESSOR, Performed the procedure Provider #1: Maura Campbell MD. Maura Campbell MD GENERAL ANESTHESIA ORDERABLES * PTT [facility] (04/21/2020 9:45 AM [facility]) Only the most recent of2 resultswithin the time period is included. APTT 34.7 23.0 - 38.4 Seconds 04/21/2020 10:32 AM [facility] Comment:Suggested therapeuti c range for full dose I.V. unfractionated heparin therapy for venous thromboembolism is 71 to 109 seconds. Blood BLOOD SPECIMEN / Unknown Lab Venipuncture / Unknown 04/21/2020 9:45 AM [facility] 04/21/2020 10:24 AM [employer] Michi Longo MD LAB - COAGULATION O RDERABLES [facility] [address] [place] [address], [facility] [phone] * PT-INR [facility] (04/21/2020 9:45 AM [facility]WORK [employer]P[facility]) Only the most recent of2 resultswithin the time period is included. PT 13.4 12.1 - 14.8 Seconds 04/21/2020 10:32 AM [facility] INR 1.1 See Comment 04/21/2020 10:32 AM [facility] Comment:The suggested therap eutic range for standard coumadin (warfarin) therapy is an INR of 2.0-3.0. For high-risk patients (Mechanical Mitral Valve Prosthesis, etc.), the suggested prophylactic therapeutic range is an INR of 2.5-3.5. Blood BLOOD SPECIMEN / Unknown Lab Venipuncture / Unknown 04/21/2020 9:45 AM [facility] [employer] 04/21/2020 10:24 AM [employer] Michi Longo MD LAB - COAGULATION O RDERABLES [facility] [address] [place] [address], [facility] [phone] * (ABNORMAL) BASIC METABOLIC PANEL (CALCIUM TOTAL) (04/21/2020 9:45 AM [facility]) Only the most recent of2 resultswithin the time period is included. BUN 15 7 - 26 mg/dL 04/21/2020 10:45 AM [facility] Creatinine 0.9 0.6 - 1.2 mg/dL 04/21/2020 10:45 AM [facility] Sodium 143 136 - 145 mmol/L 04/21/2020 10:45 AM [facility] Potassium 3.9 3.5 - 4.5 mmol/L 04/21/2020 10:45 AM [facility] Chloride 109(H) 98 - 107 mmol/L 04/21/2020 10:45 AM [facility] CO2 23 22 - 29 mmol/L 04/21/2020 10:45 AM [facility] Glucose 84 70 - 115 mg/dL 04/21/2020 10:45 AM [facility] Calcium 9.2 8.4 - 10.2 mg/dL 04/21/2020 10:45 AM [facility] Anion Gap 15 8 - 18 04/21/2020 10:45 AM [facility] BUN/Creatinine Ratio 17 7 - 23 04/21/2020 10:45 AM [facility] Osmolality Calculated 296 270 - 300 mOsm/kg 04/21/2020 10:45 AM [facility] eGFR >60 >60 mL/min/1.7 3 m2 04/21/2020 10:45 AM [facility] Blood BLOOD SPECIMEN / Unknown Lab Venipuncture / Unknown 04/21/2020 9:45 AM [facility] 04/21/2020 10:22 AM [facility] Michi Longo MD LAB - CHEMISTRY ORD ERABLES [facility] [address] [place] [address], [facility] [phone] * XR CHEST 2VW (04/21/2020 9:30 AM [facility] [employer]) Only the most recent of2 resultswithin the time period is included. Anatomical Region Laterality Modality Chest Radiographic Vanessa ging 04/21/2020 10:4 4 AM [facility] Impressions 04/21/2020 11:48 AM [facility] IMPRESSION: 1.Vagal nerve stimulator superimposes the left chest with leads extending into the left neck and terminating in the left neck soft tissue. 2.No acute pulmonary process. Dictated by Marley Jaimes MD (president of the [place]). I, Dr. SHAHNAZ HUNT have personally reviewed and interpreted this examination/study. This report was electronically signed by SHAHNAZ HUNT ??on 04/21/2020 11:48 AM . Narrative 04/21/2020 11:48 AM [facility] EXAMINATION: XR NECK SOFT TISSUE, XR CHEST 2VW HISTORY: Z01.818: Pre-op testing COMPARISON: Left neck and chest radiograph dated 05/01/2018. FINDINGS: Vagal nerve stimulator seen superimposing the left chest with leads extending into the left neck and terminating in the left neck soft tissue. Chest: The lungs are hypoinflated with bronchovascular crowding and mild compressive atelectasis. There is no focal consolidation, pleural effusion, or pneumothorax. The cardiomediastinal silhouette is normal. The visible bony thorax is intact. Neck soft tissue: There is no prevertebral soft tissue swelling. The airway is patent. The vertebral bodies are normally aligned. No acute fracture or compression deformity is identified. The intervertebral disc spaces are maintained. Procedure Note Shahnaz Hunt DO - 04/21/2020 EXAMINATION: XR NECK SOFT TISSUE, XR CHEST 2VW HISTORY: Z01.818: Pre-op testing COMPARISON: Left neck and chest radiograph dated 05/01/2018. FINDINGS: Vagal nerve stimulator seen superimposing the left chest with leads extending into the left neck and terminating in the left neck softtissue. Chest: The lungs are hypoinflated with bronchovascular crowding and mild compressive atelectasis. There is no focal consolidation, pleural effusion, or pneumothorax. The cardiomediastinal silhouette is normal.The visible bony thorax is intact. Neck soft tissue: There is no prevertebral soft tissue swelling. The airway is patent. The vertebral bodies are normally aligned. No acute fracture or compression deformity is identified. The intervertebral disc spaces are maintained. IMPRESSION: 1.Vagal nerve stimulator superimposes the left chest with leadsextending into the left neck and terminating in the left neck soft tissue. 2.No acute pulmonary process. Dictated by Marley Jaimes MD (president of the [place]). Dr. SHAHNAZ Foster have personally reviewed and interpreted this examination/study. This report was electronically signed by SHAHNAZ HUNT on 04/21/2020 11:48 AM . Michi Longo MD DIAGNOSTIC IMAGING ORDERABLES * XR NECK SOFT TISSUE (04/21/2020 9:30 AM FORMWORK CARPENTER) Only the most recent of2 resultswithin the time period is included. Anatomical Region Laterality Modality Head Radiographic Vanessa ging 04/21/2020 10:4 4 AM FORMWORK CARPENTER Impressions 04/21/2020 11:48 AM FORMWORK CARPENTER IMPRESSION: 1.Vagal nerve stimulator superimposes the left chest with leads extending into the left neck and terminating in the left neck soft tissue. 2.No acute pulmonary process. Dictated by Marley Jaimes MD (president of the [place]). Dr. SHAHNAZ Foster have personally reviewed and interpreted this examination/study. This report was electronically signed by SHAHNAZ HUNT ??on 04/21/2020 11:48 AM . Narrative 04/21/2020 11:48 AM FORMWORK CARPENTER EXAMINATION: XR NECK SOFT TISSUE, XR CHEST 2VW HISTORY: Z01.818: Pre-op testing COMPARISON: Left neck and chest radiograph dated 05/01/2018. FINDINGS: Vagal nerve stimulator seen superimposing the left chest with leads extending into the left neck and terminating in the left neck soft tissue. Chest: The lungs are hypoinflated with bronchovascular crowding and mild compressive atelectasis. There is no focal consolidation, pleural effusion, or pneumothorax. The cardiomediastinal silhouette is normal. The visible bony thorax is intact. Neck soft tissue: There is no prevertebral soft tissue swelling. The airway is patent. The vertebral bodies are normally aligned. No acute fracture or compression deformity is identified. The intervertebral disc spaces are maintained. Procedure Note Shahnaz Hunt, DO - 04/21/2020 EXAMINATION: XR NECK SOFT TISSUE, XR CHEST 2VW HISTORY: Z01.818: Pre-op testing COMPARISON: Left neck and chest radiograph dated 05/01/2018. FINDINGS: Vagal nerve stimulator seen superimposing the left chest with leads extending into the left neck and terminating in the left neck softtissue. Chest: The lungs are hypoinflated with bronchovascular crowding and mild compressive atelectasis. There is no focal consolidation, pleural effusion, or pneumothorax. The cardiomediastinal silhouette is normal.The visible bony thorax is intact. Neck soft tissue: There is no prevertebral soft tissue swelling. The airway is patent. The vertebral bodies are normally aligned. No acute fracture or compression deformity is identified. The intervertebral disc spaces are maintained. IMPRESSION: 1.Vagal nerve stimulator superimposes the left chest with leadsextending into the left neck and terminating in the left neck soft tissue. 2.No acute pulmonary process. Dictated by Marley Jaimes MD (president of the [place]). I, Dr. SHAHNAZ HUNT have personally reviewed and interpreted this examination/study. This report was electronically signed by SHAHNAZ HUNT on 04/21/2020 11:48 AM . Michi Longo MD DIAGNOSTIC IMAGING ORDERABLES * XR CHEST 1VW (07/24/2018 10:08 AM [...] is intact. Dictated by James Black MD (president of the [place]). This report was approved ??by James Black ?? on 07/24/2018 10:[address] KATARINA Foster MD have personally reviewed and interpreted this [...] thorax isintact. Dictated by James Black MD (president of the [place]). This report was approved by James Black on 07/24/2018 10:[address] KATARINA Foster MD have personally reviewed and interpretedthis examination/study. This report was electronically signed by Dr. KATARINA BALDERRAMA MD on 07/24/2018 11:33 AM . Diego Olvera MD DIAGNOSTIC IMAGING O RDERABLES * CARDIAC PROCEDURE ORDER (05/19/2018 2:13 PM CDT) Narrative 05/19/2018 2:13 PM CDT Ordered by an unspecified provider. Scanned Document CARDIAC SERVICES ORD ERABLES * LAB HISTORICAL RESULTS-ONBASE (01/03/2010) 01/03/2010 Historical Provider LAB - CHEMISTRY O RDERABLES [facility] * EGD (12/20/2009 10:03 AM FORMWORK CARPENTER) Report Indications/ Pre Op Diagnosis: Nausea. Vomiting. Loss of 8 lb over the past 2 weeks. H and P: ??Past medical history was non-contributory. Physical exam revealed lungs and airway clear, heart unremarkable, abdomen unremarkable and mental status normal. Allergies and Medications were reviewed from the patient's Home Medications Sheet. See attached History and Physical note. Consent: ??I have explained the nature, purpose and necessity of the operation/procedur e, possible alternative methods of treatment and anesthetic plan, the risks involved and possibility of complications. Informed consent was obtained from the patient. Preparation: ??EKG, pulse, pulse oximetry and blood pressure were monitored throughout the procedure. ASA Classification: Class 2 - Patient has mild to moderate systemic disturbance that may or may not be related to the disorder requiring surgery. Medications: Monitored anesthesia care. See anesthesia record. Procedure: ??The endoscope was passed with ease through the mouth under direct visualization; it was extended to the 3rd portion of the duodenum. The scope was withdrawn and the mucosa was carefully examined. Findings: ?? Esophagus: The cricopharyngeus, entire esophagus, and cardia appeared to be normal, 38 cm from the entry site. ?Stomach: A striped area of mild non-erosive gastritis was found in the antrum. ?? Two cold forceps biopsies was taken from the antrum and body of the stomach. The specimens were collected for H. pylori. Otherwise, the stomach appeared to be normal. ?? Duodenum: The duodenum appeared to be normal. ??Multiple cold forceps biopsies was taken from the duodenum. The specimens were collected for pathology (jar 1). Unplanned Events: There were no complications. Estimated Blood Loss: ??None. Specimen/ Post Op Diagnosis: Normal cricopharyngeus, entire esophagus, and cardia. Mild gastritis found in the antrum. Biopsy of the antrum and body of the stomach performed. The specimens were collected for H. pylori Normal duodenum. Multiple cold forceps random biopsies taken from the duodenum and placed in (jar 1). Recommendations: Resume regular diet as tolerated. Continue current medications. Begin taking omeprazole (Prilosec) 20 mg PO every day. Call for biopsy results in one (1) week. Follow-up appointment with the attending physician as needed. Follow-up appointment with the referring physician as needed. Discharge home when standard parameters are met. Procedure Codes: 47013: EGD with biopsy Version 1, electronically signed by Dr. RASHI PERKINS on 12/20/2009 at 09:07. [facility] 12/20/2009 10:0 3 AM FORMWORK CARPENTER Rashi Perkins MD GI PROCEDURE ORDERAB LES Performing Organization Address City/[facility]/ZIP Co de Phone Number [facility] * HELICOBACTER PYLORI UREASE (12/20/2009 9:02 AM FORMWORK CARPENTER) Helicobacter pylori Urease Positive at 4hrs Negative [facility] GASTRIC ANTRAL BIOPSY SPECIMEN / Unknown 12/20/2009 9:02 AM FORMWORK CARPENTER 12/20/2009 11:33 AM FORMWORK CARPENTER Narrative [facility] - 12/20/2009 11:34 AM FORMWORK CARPENTER For gastritis Rashi Perkins MD LAB - 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 O RDERABLES Performing Organization Address City/[facility]/ZIP Co de Phone Number [facility] [address] [place] [address] * GROSS + MICRO EXAM (12/20/2009 9:00 AM FORMWORK CARPENTER) [facility] Pre-Op Diagnosis Nausea, vomiting + 8lb wt loss over 2 weeks [facility] Post-Op Diagnosis Mild gastritis + normal duodenum [facility] Clinical Findings as above [facility] Gross Description [facility] Comment: One portion received in Histochoice labeled duodenal biopsy consists of five peace villous mucosal fragments, 3-6 mm, submitted in screened cassette. ME (mep)clr BLOCK: ?A - Duodenal biopsy, levels Grossed By Karthikeyan Garza M.D. [facility] Microscopic Examination [facility] Comment:Microscopic examinat ion corroborates the diagnosis below. (etm)clr Diagnosis [facility] Comment: Duodenum, endoscopic biopsy: ? No pathologic abnormality 12.21.09 Read by Juany Perrin M.D. [facility] Released by JUANY PERRIN, [facility] Performed By [facility],[address] [place] [address] [facility] DUODENAL BIOPSY SPECIMEN / Unknown 12/20/2009 9:00 AM FORMWORK CARPENTER 12/20/2009 11:30 AM FORMWORK CARPENTER Rashi Perkins MD LAB - PATHOLOGY/CYTO LOGY ORDERABLES [facility] [address] [place] [address] Care Teams Eyedotter Relationship Specialty Start Date End Date Gulshan Mena MD [address] [place] [id number] PCP - General Family Medicine 12/19/09
--- OUTSIDE RECORDS SUMMARY | 2024-02-12 05:05 | XMS_ITS | Encounter Summary ---
Author Organization [facility] Address [address] [place] [address] Care Team Providers Care Bench Loom Weaver Name Role Phone Gulshan Mena MD Primary Care Provider [phone] Encounter Details Date Type Department Care Team (Latest Contact Info) Description 05/01/2018 9:00 AM CDT - 05/01/2018 9:09 AM CDT Hospital Encounter [facility] LAB OP DRAW STATION [address] [place] [id number] Michi Longo MD [facility] [place] [address] Discharge Disposition: Home or Self Care Social [...] Reasons: Stuffy Nose SALINE NASAL SPRAY NA [place] into the nose as needed VITAMIN D [...] Procedure Name Priority Date/Time Associated Diagnosis Comments PTT [facility] Routine 05/01/2018 9:22 AM CDT 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 3 /uL 05/01/2018 9:51 AM [facility] RBC 4.61 4.30 - 5.70 10? 6 /uL 05/01/2018 9:51 AM [facility] Hemoglobin 14.7 13.5 - 17.5 g/dL 05/01/2018 9:51 AM [facility] Hematocrit 42.4 39.0 - 50.0 % 05/01/2018 9:51 AM [facility] MCV 92.0 81.0 - 97.0 fL 05/01/2018 9:51 AM [facility] MCH 31.9 28.0 - 34.0 pg 05/01/2018 9:51 AM [facility] MCHC 34.7 32.0 - 36.0 g/dL 05/01/2018 9:51 AM [facility] Platelet Count 212 150 - 400 10? 3 /uL 05/01/2018 9:51 AM [facility] RDW-SD 45.0 36.0 - 50.0 fL 05/01/2018 9:51 AM [facility] RDW-CV 13.6 11.2 - 14.8 % 05/01/2018 9:51 AM [facility] MPV 9.6 9.3 - 12.8 fL 05/01/2018 9:51 AM [facility] nRBC Absolute 0.00 0 10? 3 /uL 05/01/2018 9:51 AM [facility] nRBC Auto 0.0 0 /100 WBC 05/01/2018 9:51 AM [facility] Neutrophils % 59.9 35.0 - 70.0 % 05/01/2018 9:51 AM [facility] Lymphocytes % 27.5 19.7 - 55.1 % 05/01/2018 9:51 AM [facility] Monocytes % 8.8 3.0 - 15.0 % 05/01/2018 9:51 AM [facility] Eosinophils % 3.0 0.0 - 6.0 % 05/01/2018 9:51 AM [facility] Basophil % 0.5 0.0 - 1.5 % 05/01/2018 9:51 AM [facility] Neutrophils Absolute 3.5 1.6 - 7.0 10? 3 /uL 05/01/2018 9:51 AM [facility] Lymphocyte Absolute 1.6 0.8 - 2.9 10? 3 /uL 05/01/2018 9:51 AM [facility] Monocytes Absolute 0.52 0.14 - 0.66 10? 3 /uL 05/01/2018 9:51 AM [facility] Eosinophils Absolute 0.18 0.00 - 0.45 10? 3 /uL 05/01/2018 9:51 AM [facility] Basophils Absolute 0.03 0.00 - 0.06 10? 3 /uL 05/01/2018 9:51 AM [facility] Immature Granulocytes % 0.3 0.0 - 1.0 % 05/01/2018 9:51 AM [facility] Blood BLOOD SPECIMEN / Unknown Lab Venipuncture / Unknown 05/01/2018 9:22 AM CDT 05/01/2018 9:33 AM T Michi Longo MD LAB - HEMATOLOGY OR DERABLES [facility] [address] [phone] * PT-INR [facility] (05/01/2018 9:22 AM CDT) PT 13.1 12.1 - 14.8 Seconds 05/01/2018 9:56 AM [facility] INR 1.0 See Comment 05/01/2018 9:56 AM [facility] Comment: The suggested therapeutic range for standard coumadin (warfarin) therapy is an INR of 2.0-3.0. For high-risk patients (Mechanical Mitral Valve Prosthesis, etc.), the suggested prophylactic therapeutic range is an INR of 2.5-3.5. Blood BLOOD SPECIMEN / Unknown Lab Venipuncture / Unknown 05/01/2018 9:22 AM CDT 05/01/2018 9:33 AM CDT Michi Longo MD LAB - COAGULATION [place] LOZA Performing Organization Address [facility] Co de Phone Number [address] [phone] * PTT [facility] (05/01/2018 9:22 AM CDT) APTT 37.3 23.0 - 38.4 Seconds 05/01/2018 9:57 AM CDT [facility] Comment: Suggested therapeutic range for full dose I.V. heparin therapy for venous thromboembolism is 66.0-91.0 seconds. 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
--- OUTSIDE RECORDS SUMMARY | 2024-02-12 05:05 | XMS_ITS | Encounter Summary ---
Author Organization [facility] Address [address] [place] [place] [address] Care Team Providers Care Concession Worker Name Role Phone Gulshan Mnea MD Primary Care Provider [phone] Reason for Visit * Home Health Care (Routine) - Closed Specialty Diagnoses / Procedures Referred By Contac t Referred To Contact Home Health Services Diagnoses Acute calculous cholecystitis Autism (HCC) Jessica Angel MD [address] [place] [address] [place] [address] [place] [address] Referral ID Status Reason Start Date Expiration Date V isits Requested Visits Authorized [id number] Closed Specialty Services Required 11/28/2023 11/27/[phone] Encounter Details Date Type Department Care Team (Late st Contact Info) Description 11/29/2023 12:00 PM CDT Home Care Visit [facility] [address] [place] [address] Alina Ortega MD [address] [place] [address] Neelima Salinas RN SN NON ADMIT Social History Tobacco Use Types Packs/Day Years Used Date Smoking Tobacco: Never Smokeless Tobacco: Never Alcohol Use Standard Drinks/Week Comments No 0 (1 standard drink = 0.6 oz pur e alcohol) Sex and Gender Information Value Date Recorded Sex Assigned at Not on file Gender Identity Not on file Sexual Orientation Not on file COVID-19 Exposure Response Date Recorded In the last 10 days, have yo u been in contact with someone who was confirmed or suspected to have Coronavirus/COVID-19? No / Unsure 11/29/2023 1:35 PM CDT documented as of this encounter OR Notes * Case Communication - Neelima Salinas RN - 11/29/2023 6:02 PM CDTHHRN ARRIVED FOR SCHED SOC, UPON ARRIVAL TO LONG-TERM WHERE PATIENT RESIDES, THE SENIOR ADMINISTRATOR SUPPORT INFORMED RN THAT PATIENT WAS HAVING A SEIZURE AND 911 HAD BEEN CALLED. school bus operator THEN ARRIVED AND PER [facility] GUIDELINES IF A RESIDENT HAS A SEIZURE FOR 20 MIN OR LONGER MUST BE SENT TO ER VIA AMBULANCE. PATIENT WAS THEN TAKEN TO HOSPITAL. NO ASSESSMENT WAS ABLE TO BE PERFORMED. PATIENT WILL NOT BE OPENED TO SERVICES AT THIS TIME. documented in this encounter Plan of Treatment Scheduled Referrals Name Type Priority Associated Diagnoses Orde r Schedule AMB REFERRAL TO HOME HEALTH CARE Outpatient Referral Routine Acute calculous cholecystitis Autism (HCC) Ordered: 11/28/2023 documented as of this encounter Visit Diagnoses Not on filedocumented in this encounter Care Teams Concession Worker Relationship Specialty Start Date End Date Gulshan Mena MD [address] [place] [address] PCP - General Family Medicine 12/19/09 documented as of this encounter
--- OUTSIDE RECORDS SUMMARY | 2024-02-12 05:05 | XMS_ITS | Encounter Summary ---
Author Organization [facility] Address [address] [place] [address] Care Team Providers Care Repack Room Worker Name Role Phone Gulshan Mena MD Primary Care Provider [phone] Reason for Referral * Procedure (Routine) - Closed Specialty Diagnoses / Procedures Referred By Contac t Referred To Contact Cardiology Diagnoses Pre-op testing Procedures EKG 12-LEAD Michi Longo MD [address] [place] [address] [address] [place] [address] Referral ID Status Reason Start Date Expiration Date Visits Re quested Visits Authorized [id number] Closed 04/21/2020 04/21/2021 1 1 ORIC PRESERVATIONIST Reason for Visit * Reason Comments Establish Care Encounter Details Date Type Department Care Team (Late st Contact Info) Description 04/21/2020 8:30 AM HISTORIC PRESERVATIONIST Office Visit [facility] Neurosurgery [address] [place] [address], [place] [id number] Michi Longo MD [address] [place] [address] [address] [place], [place] [id number] Battery end of life of vagus nerve stimulator (Primary Dx); Pre-op testing; Partial symptomatic epilepsy with complex partial seizures, intractable, without status epilepticus (HCC) Social History Tobacco Use Types Packs/Day Years Used Date Smoking Tobacco: Never Smokeless Tobacco: Never Alcohol Use Standard Drinks/Week Comments No 0 (1 standard drink = 0.6 oz pur e alcohol) Sex and Gender Information Value Date Recorded Sex Assigned at Not on file Gender Identity Not on file Sexual Orientation Not on file COVID-19 Exposure Response Date Recorded In the last month, have you been in contact with someone who was confirmed or suspected to have Coronavirus / COVID-19? No / Unsure 04/21/2020 9:07 AM HISTORIC PRESERVATIONIST documented as of this encounter Last Filed Vital Signs Vital Sign Reading Time Taken Comments Blood Pressure 98/67 04/21/2020 8:41 AM HISTORIC PRESERVATIONIST Pulse 70 04/21/2020 8:41 AM HISTORIC PRESERVATIONIST Temperature 36.2 ??C (97.1 ??F) 04/21/2020 8:41 AM CS T Respiratory Rate 20 04/21/2020 8:41 AM HISTORIC PRESERVATIONIST Oxygen Saturation 98% 04/21/2020 8:41 AM HISTORIC PRESERVATIONIST Inhaled Oxygen Concentration - - Weight 83.9 kg (185 lb) 04/21/2020 8:41 AM HISTORIC PRESERVATIONIST Height - - Body Mass Index 28.98 07/24/2018 10:39 AM CDT documented in this encounter Patient Instructions * Patient Instructions* Felicitas Chou - 04/21/2020 8:56 AM HISTORIC PRESERVATIONIST Surgery date 05/25/2020 will need to arrive at 0700am to [facility] 1st floor ACU Surgery: VNS generator replacement NPO (nothing to eat or drink) after midnight Call pre admission testing 3 weeks prior to surgery for anesthesia clearance at [phone] Hold Asprin and NSAIDs 7 days prior to surgery Covid 19 test 5 days prior to surgery -must self isolate after swab until surgery date For any questions please call Felicitas at [phone] ORIC PRESERVATIONIST documented in this encounter Progress Notes * Kristin Kat APRN-CNP - 04/21/2020 8:38 AM CST Images from the original note were not included. 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 The patient lives in a care home care facil ity is accompanied today by staff. Patient is currently managed on multiple antiepileptic medications. Staff reports patient has about 1 seizures per day when patient falls asleep. The patient has been evaluated by his neurologist, Dr. Noble, who noticed that his VNS system was nearing the end of its service. The device helped to decrease the frequency and severity of their seizures. The prior chest wall and anterior neck surgical scars are without signs of infection. The patient has no major medical co-morbidities and staff denies patient having heart attacks, strokes, or having been on anyblood thinners. Past Medical History: Diagnosis Date ??? ADHD [...] 10/2013 V and S inplanted Current Outpatient Medications Medication ??? bisacodyl (DULCOLAX) 10 MG suppository ??? bisacodyl EC (BISACODYL EC) 5 MG tablet ??? busPIRone (BUSPAR) 10 MG tablet ??? cloBAZam (ONFI) 10 MG tablet ??? cloNIDine (CATAPRES) 0.1 MG tablet ??? diazePAM (VALTOCO 10 MG DOSE) 10 MG/0.1ML nasal spray ??? docusate sodium (COLACE) 100 MG capsule [...] [Phenytoin Sodium] ??? Tegretol [Carbamazepine] Social History Tobacco Use ??? Smoking status: Never Smoker ??? Smokeless tobacco: Never Used Substance Use Topics ??? Alcohol use: No No family history on file. REVIEW OF SYSTEMS per facility staff Constitutional: Negative Eyes: Negative Ears, nose, mouth, throat, and face: Negative Respiratory: Negative Cardiovascular: Negative Gastrointestinal: Negative Genitourinary:negative Integument/breast: negative Hematologic/lymphatic: Negative Musculoskeletal:Negative Neurological: Positive for seizures PHYSICAL EXAM BP 98/67 (BP SITE: LEFT ARM) Pulse 70 Temp 97.1 ??F (36.2 ??C) (Oral) Resp 20 Wt 185 lb (83.9 kg) SpO2 98% BMI 28.98 kg/m2 General: no acute distress Cardiovascular: warm, well profused Respiratory: non-labored breathing Integument: no lesions found. Prior VNS incisions are well healed. Neuro: The patient is awake, alert, and non verbal. Pupils are equal and reactive to light. Extraoccular movements intact. Face is symmetric. Follows simple commands, moves all extremities symmetrically. Patient in wheel chair on exam. RADIOLOGICAL REVIEW: No new neuroradiological imaging for review. VNS INTERROGATION: Assessment/Plan: Travis Beebe is a 35 year old male with a history of Guttenberg-Gastaut syndrome, autism spectum disorded, developmental delay, and medically-refractory generalized non-convulsive epilepsy status post vagal nerve stimulator (VNS) placement in 2013, and VNS generator revision on 05/16/18, who is presenting to clinic today for his VNS battery nearing the end of life. 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 Patient is non verbal and appears in no distress. Staff reports patient has about 1 seizure per day that typically occurs when he sleeps. System interrogation during this visit demonstrating battery was near end of life with 0% remaining. The device helped to decrease the frequency and severity of their seizures. We will plan for a vagus nerve stimulator (VNS) generator revision. Dr. Longo, discussed the risks and benefits of the operation explained in detail including infection, bleeding, need for re-operation, treatment failure, component fracture or disconnection, voice hoarseness, need for entire system replacement, damage to the adjacent structures with the staff. Staff indicated full understanding and selected to proceed with the operation. Patient has a guardian that is his mother. All questions answered BRANDAN Gonzalez 04/21/2020 8:59 AM ORIC PRESERVATIONIST documented in this encounter Plan of Treatment Not on file documented as of this encounter Results * PT-INR [facility] (04/21/2020 9:45 AM HISTORIC PRESERVATIONIST) PT 13.4 12.1 - 14.8 Seconds 04/21/2020 10:32 AM [facility] INR 1.1 See Comment 04/21/2020 10:32 AM [facility] Comment:The suggested therap eutic range for standard coumadin (warfarin) therapy is an INR of 2.0-3.0. For high-risk patients (Mechanical Mitral Valve Prosthesis, etc.), the suggested prophylactic therapeutic range is an INR of 2.5-3.5. Blood BLOOD SPECIMEN / Unknown Lab Venipuncture / Unknown 04/21/2020 9:45 AM HISTORIC PRESERVATIONIST 04/21/2020 10:24 AM HISTORIC PRESERVATIONIST Michi Longo MD LAB - COAGULATION O DENIA [address] [address], [facility] [phone] * PTT [facility] (04/21/2020 9:45 AM HISTORIC PRESERVATIONIST) APTT 34.7 23.0 - 38.4 Seconds 04/21/2020 10:32 AM [facility] Comment:Suggested therapeuti c range for full dose I.V. unfractionated heparin therapy for venous thromboembolism is 71 to 109 seconds. Blood BLOOD SPECIMEN / Unknown Lab Venipuncture / Unknown 04/21/2020 9:45 AM HISTORIC PRESERVATIONIST 04/21/2020 10:24 AM HISTORIC PRESERVATIONIST Michi Longo MD LAB - COAGULATION O DENIA Performing Organization Address City/[facility]/ZIP Co de Phone Number [address] [address], [facility] [phone] * CBC WITH DIFFERENTIAL (04/21/2020 9:45 AM HISTORIC PRESERVATIONIST) WBC 6.4 3.5 - 10.5 10? 3 /uL 04/21/2020 10:27 AM [facility] RBC 4.64 4.30 - 5.70 10? 6 /uL 04/21/2020 10:27 AM [facility] Hemoglobin 15.1 13.5 - 17.5 g/dL 04/21/2020 10:27 AM [facility] Hematocrit 44.0 39.0 - 50.0 % 04/21/2020 10:27 AM [facility] MCV 94.8 81.0 - 97.0 fL 04/21/2020 10:27 AM [facility] MCH 32.5 28.0 - 34.0 pg 04/21/2020 10:27 AM [facility] MCHC 34.3 32.0 - 36.0 g/dL 04/21/2020 10:27 AM [facility] Platelet Count 214 150 - 400 10? 3 /uL 04/21/2020 10:27 AM [facility] RDW-SD 46.9 36.0 - 50.0 fL 04/21/2020 10:27 AM [facility] RDW-CV 13.5 11.2 - 14.8 % 04/21/2020 10:27 AM [facility] MPV 9.8 9.3 - 12.8 fL 04/21/2020 10:27 AM [facility] nRBC Absolute 0.00 0 10? 3 /uL 04/21/2020 10:27 AM [facility] nRBC Auto 0.0 0 /100 WBC 04/21/2020 10:27 AM [facility] Neutrophils % 53.3 35.0 - 70.0 % 04/21/2020 10:27 AM [facility] Lymphocytes % 33.4 19.7 - 55.1 % 04/21/2020 10:27 AM [facility] Monocytes % 8.9 3.0 - 15.0 % 04/21/2020 10:27 AM [facility] Eosinophils % 3.5 0.0 - 6.0 % 04/21/2020 10:27 AM [facility] Basophil % 0.6 0.0 - 1.5 % 04/21/2020 10:27 AM [facility] Neutrophils Absolute 3.4 1.6 - 7.0 10? 3 /uL 04/21/2020 10:27 AM [facility] Lymphocyte Absolute 2.1 0.8 - 2.9 10? 3 /uL 04/21/2020 10:27 AM [facility] Monocytes Absolute 0.57 0.14 - 0.66 10? 3 /uL 04/21/2020 10:27 AM [facility] Eosinophils Absolute 0.22 0.00 - 0.45 10? 3 /uL 04/21/2020 10:27 AM [facility] Basophils Absolute 0.04 0.00 - 0.06 10? 3 /uL 04/21/2020 10:27 AM [facility] Immature Granulocytes % 0.3 0.0 - 1.0 % 04/21/2020 10:27 AM [facility] Blood BLOOD SPECIMEN / Unknown Lab Venipuncture / Unknown 04/21/2020 9:45 AM HISTORIC PRESERVATIONIST 04/21/2020 10:22 AM HISTORIC PRESERVATIONIST Michi Longo MD LAB - HEMATOLOGY OR DERABLES [facility] [address] [place] [id number], [facility] [phone] * (ABNORMAL) BASIC METABOLIC PANEL (CALCIUM TOTAL) (04/21/2020 9:45 AM HISTORIC PRESERVATIONIST) BUN 15 7 - 26 mg/dL 04/21/2020 10:45 AM [facility] Creatinine 0.9 0.6 - 1.2 mg/dL 04/21/2020 10:45 AM [facility] Sodium 143 136 - 145 mmol/L 04/21/2020 10:45 AM [facility] Potassium 3.9 3.5 - 4.5 mmol/L 04/21/2020 10:45 AM [facility] Chloride 109(H) 98 - 107 mmol/L 04/21/2020 10:45 AM [facility] CO2 23 22 - 29 mmol/L 04/21/2020 10:45 AM [facility] Glucose 84 70 - 115 mg/dL 04/21/2020 10:45 AM [facility] Calcium 9.2 8.4 - 10.2 mg/dL 04/21/2020 10:45 AM [facility] Anion Gap 15 8 - 18 04/21/2020 10:45 AM [facility] BUN/Creatinine Ratio 17 7 - 23 04/21/2020 10:45 AM [facility] Osmolality Calculated 296 270 - 300 mOsm/kg 04/21/2020 10:45 AM [facility] eGFR >60 >60 mL/min/1.7 3 m2 04/21/2020 10:45 AM [facility] Blood BLOOD SPECIMEN / Unknown Lab Venipuncture / Unknown 04/21/2020 9:45 AM HISTORIC PRESERVATIONIST 04/21/2020 10:22 AM HISTORIC PRESERVATIONIST Michi Longo MD LAB - CHEMISTRY ORD ERABLES [facility] [address] [place] [phone] [phone] * XR NECK SOFT TISSUE (04/21/2020 9:30 AM HISTORIC PRESERVATIONIST) Anatomical Region Laterality Modality Head Radiographic Vanessa ging 04/21/2020 10:4 4 AM HISTORIC PRESERVATIONIST Impressions 04/21/2020 11:48 AM HISTORIC PRESERVATIONIST IMPRESSION: 1.Vagal nerve stimulator superimposes the left chest with leads extending into the left neck and terminating in the left neck soft tissue. 2.No acute pulmonary process. Dictated by Marley Jaimes MD (residential sales). I, Dr. SHAHNAZ HUNT have personally reviewed and interpreted this examination/study. This report was electronically signed by SHAHNAZ HUNT ??on 04/21/2020 11:48 AM . Narrative 04/21/2020 11:48 AM HISTORIC PRESERVATIONIST EXAMINATION: XR NECK SOFT TISSUE, XR CHEST [...] spaces are maintained. Procedure Note Shahnaz Hunt, - 04/21/2020 EXAMINATION: XR NECK SOFT TISSUE, [...] pulmonary process. Dictated by Marley Jaimes MD (residential sales). Dr. SHAHNAZ Foster have personally reviewed and interpreted this examination/study. This report was electronically signed by SHAHNAZ HUNT on 04/21/2020 11:48 AM . Michi Longo MD DIAGNOSTIC IMAGING ORDERABLES * XR CHEST 2VW (04/21/2020 9:30 AM HISTORIC PRESERVATIONIST) Anatomical Region Laterality Modality Chest Radiographic Vanessa ging 04/21/2020 10:4 4 AM HISTORIC PRESERVATIONIST Impressions 04/21/2020 11:48 AM HISTORIC PRESERVATIONIST IMPRESSION: 1.Vagal nerve stimulator superimposes the left chest with leads extending into the left neck and terminating in the left neck soft tissue. 2.No acute pulmonary process. Dictated by Marley Jaimes MD (residential sales). Dr. SHAHNAZ Foster have personally reviewed and interpreted this examination/study. This report was electronically signed by SHAHNAZ HUNT ??on 04/21/2020 11:48 AM . Narrative 04/21/2020 11:48 AM HISTORIC PRESERVATIONIST EXAMINATION: XR NECK SOFT TISSUE, XR CHEST [...] pulmonary process. Dictated by Marley Jaimes MD (residential sales). I, Dr. SHAHNAZ HUNT have personally reviewed and interpreted this examination/study. This report was electronically signed by SHAHNAZ HUNT on 04/21/2020 11:48 AM . Michi Longo MD DIAGNOSTIC IMAGING ORDERABLES * EKG 12-LEAD (04/21/2020 9:27 AM HISTORIC PRESERVATIONIST) Ventricular Rate 67 BPM [facility] MUSE Atrial Rate 67 BPM [facility] MUSE P-R Interval 172 ms [facility] MUSE QRS Duration ms 86 ms [facility] MUSE Q-T Interval ms 396 ms [facility] MUSE QTC Calculation (Bezet) 418 ms [facility] MUSE Calculated P [place] 24 degrees SL MUSE Calculated R [place] 24 degrees SL MUSE Calculated T [place] 37 degrees [facility] MUSE Interpretation EKG NORMAL SINUS RHYTHM NORMAL ECG WHEN COMPARED WITH ECG OF 29-APR-2018 11:00, NO SIGNIFICANT CHANGE WAS FOUND Confirmed by Augustin Mitchell ([id number]) on 04/23/2020 2:20:05 PM [facility] MUSE 04/21/2020 9:27 AM HISTORIC PRESERVATIONIST 04/23/2020 2:20 PM HISTORIC PRESERVATIONIST Michi Longo MD ECG ORDERABLES [facility] MUSE documented in this encounter Visit Diagnoses Diagnosis Battery end of life of vagus nerve stimulator- Primary Pre-op testing Preoperative examination, unspecified Partial symptomatic epilepsy with complex partial seizures, intractable, without status epilepticus (HCC) Pre-op testing Preoperative examination, unspecified documented in this encounter Care Teams Repack Room Worker Relationship Specialty Start Date End Date Gulshan Mena MD [address] [place] [address] PCP - General Family Medicine 12/19/09 documented as of this encounter
--- OUTSIDE RECORDS SUMMARY | 2024-02-12 05:05 | XMS_ITS | Encounter Summary ---
Author Organization [facility] Health Address [address] [place] [address] Care Team Providers Care Grader Tender Name Role Phone Gulshan Mena MD Primary Care Provider [phone] Reason for Visit * Reason Onset Date Comments Reminder Call 05/26/2018 clld to confirm ANICETO mcnulty LM Encounter Details Date Type Department Care Team (Late st Contact Info) Description 05/26/2018 Telephone [facility] Neurosurgery [address] [place] [address] Michi Longo MD [address] [place] [address] Reminder Call (clld to confirm ANICETO mcnulty LM) Social History Tobacco Use Types Packs/Day Years [...] encounter Miscellaneous Notes * Telephone Encounter - Bruna Atkins - 05/26/2018 10:56 AM CDT clld to confirm pricila NA LM documented in this encounter Plan of Treatment Not on file documented as of this encounter Visit Diagnoses Not on filedocumented in this encounter Care Teams Grader Tender Relationship Specialty Start Date End Date Gulshan Mena MD [address] [place] [address] PCP - General Family Medicine 12/19/09 documented as of this encounter
--- OUTSIDE RECORDS SUMMARY | 2024-02-12 05:05 | XMS_ITS | Encounter Summary ---
Author Organization [facility] Address [address] [place] [address] Care Team Providers Care Reel Repairer Name Role Phone Gulshan Mena MD Primary Care Provider [phone] Encounter Details Date Type Department Care Team (Latest Contact Info) Description 05/01/2018 9:48 AM CDT Hospital Encounter [facility] DIAGNOSTIC RAD OP [address] [place] [id number] Michi Longo MD [address] [facility] [address] [place] [address] Discharge Disposition: Home or Self Care Social [...] Reasons: Stuffy Nose [place] NA [place] into the nose as needed VITAMIN D [...] Priority Date/Time Associated Diagnosis Comments XR CHEST 2VW Routine 05/01/2018 10:18 AM CDT Seizures (HCC) Battery end of life of vagus nerve stimulator Pre-op testing documented in this encounter Results * XR CHEST 2VW (05/01/2018 10:18 AM CDT) Anatomical Region Laterality Modality Chest Radiographic Vanessa ging 05/01/2018 10:1 5 AM CDT Impressions 05/02/2018 6:25 AM CDT IMPRESSION: No acute pulmonary process. Dictated by Dalton Saez MD (rn radiology). Kristin, Dr. QUOC HUNT have personally reviewed and interpreted this examination/study. This report was electronically signed by QUOC HUNT ??on 05/02/2018 6:25 AM . Narrative 05/02/2018 6:25 AM CDT EXAMINATION: XR CHEST 2VW HISTORY: pre op FINDINGS: No prior study is available for comparison at the time of this dictation. A vagus nerve stimulator overlies the left chest with leads extending up the left neck. The lungs are hypoinflated causing marked vascular crowding. There is no focal consolidation, pleural effusion, or pneumothorax. The cardiomediastinal silhouette is normal. The visible bony thorax is intact. Procedure Note Quoc Hunt, DO - 05/02/2018 EXAMINATION: XR CHEST 2VW HISTORY: pre op FINDINGS: No prior study is available for comparison at the time of this dictation. A vagus nerve stimulator overlies the left chest with leads extending up the left neck. The lungs are hypoinflated causing marked vascular crowding. There is no focal consolidation, pleural effusion, or pneumothorax. The cardiomediastinal silhouette is normal. The visible bony thorax isintact. IMPRESSION: No acute pulmonary process. Dictated by Dalton Saez MD (rn radiology). Dr. QUOC Foster have personally reviewed and interpreted this examination/study. This report was electronically signed by QUOC HUNT on 05/02/2018 6:25 AM . Michi Longo MD DIAGNOSTIC IMAGING ORDERABLES documented in this encounter Visit Diagnoses Diagnosis Seizures (HCC) Other convulsions Battery end of life of vagus nerve stimulator Pre-op testing Preoperative examination, unspecified documented in this encounter Care Teams Reel Repairer Relationship Specialty Start Date End Date Gulshan Mena MD [address] [place] [address] PCP - General Family Medicine 12/19/09 documented as of this encounter
--- OUTSIDE RECORDS SUMMARY | 2024-02-12 05:05 | XMS_ITS | Encounter Summary ---
Author Organization [facility] Health Address [address] [facility] [place] [address] Care Team Providers Care Infusion Nurse Name Role Phone Gulshan Mena MD Primary Care Provider [phone] Encounter Details Date Type Department Care Team (Latest Contact Info) Description 01/11/2024 Travel Social History Tobacco Use Types Packs/Day Years Used Date Smoking Tobacco: Never Smokeless Tobacco: Never Alcohol Use Standard Drinks/Week Comments No 0 (1 standard drink = 0.6 oz pur e alcohol) Sex and Gender Information Value Date Recorded Sex Assigned at Not on file Gender Identity Not on file Sexual Orientation Not on file documented as of this encounter Plan of Treatment Not on file documented as of this encounter Visit Diagnoses Not on filedocumented in this encounter Care Teams Infusion Nurse Relationship Specialty Start Date End Date Gulshan Mena MD [address] [place] [address] PCP - General Family Medicine 12/19/09 documented as of this encounter
--- OUTSIDE RECORDS SUMMARY | 2024-02-12 05:05 | XMS_ITS | Encounter Summary ---
Author Organization [facility] Address [address] [place] [address] Care Team Providers Care Senior Javascript Engineer Name Role Phone Gulshan Mena MD Primary Care Provider [phone] Reason for Visit * Auth/Cert Specialty Diagnoses / Procedures Referred By Contac t Referred To Contact Diagnoses Diagnosis unknown end of VNS battery life Procedures INSERTION CRANIAL/VAGAL NERVE NEUROSTIMULATOR ELECTRODES/GENERATOR Referral ID Status Reason Start Date Expiration Date Visits Re quested Visits Authorized [id number] 1 1 Encounter Details Date Type Department Care Team (Late st Contact Info) Description 05/16/2018 7:30 AM CDT - 05/16/2018 9:20 AM CDT Surgery [facility] [address] [place] [id number] Michi Longo MD [address] [place] [address] VAGAL NERVE NEUROSTIMULATOR GENERATOR REPLACEMENT Surgery Details Date/Time Status Location OR Service Patient Class Case Class Case Type Trauma Case? 05/16/2018 7:30 AM Posted [facility] OR OR 09 Neurosurgery Surgery Day Care Panel 1 Procedure LRB Anes Op Region Wound Class Comments VAGAL NERVE NEUROSTIMULATOR GENERATOR REPLACEMENT Left General Chest Clean Surgeon Surgeon Role Service Panel Michi Longo MD Primary Neurosurgery 1 Diego Cota MD Resident - Assisting Neurosurgery 1 Special Needs SUPINE, LIVANOVA documented in this encounter Social History Tobacco Use Types Packs/Day Years [...] Sign Reading Time Taken Comments Blood Pressure 112/67 05/16/2018 10:30 AM CDT Pulse 62 05/16/2018 10:30 AM CDT Temperature 36.6 ??C (97.8 ??F) 05/16/2018 9:45 AM CD T Respiratory Rate 19 05/16/2018 9:50 AM CDT Oxygen Saturation 97% 05/16/2018 10: 30 AM CDT Inhaled Oxygen Concentration - - Weight 79.2 kg (174 lb 11.2 oz) 05/16/2018 5:50 AM CDT Height 170.2 cm (5' 7 ) 05/16/2018 5:50 AM CDT Body Mass Index 27.36 05/16/2018 5:50 AM CDT documented in this encounter Discharge Instructions * Discharge Instructions* Soumya Truong RN - 05/16/2018 10:26 AM CDT Pt had vagal neuro stimulator generator replacement today, 05/16/18. Please return to clinic for follow up in 10-14 days Please keep wound clean dry and intact Please return to ED for abnormal wound discharge, high grade fever Do not lift weights > 10 pounds for the first 6 weeks after surgery Please resume you home medication and your regular diet. documented in this encounter Medications at Time of Discharge [...] Reasons: Stuffy Nose SALINE NASAL SPRAY NA [place] into the nose as needed VITAMIN D [...] daily 05/24/2020 documented as of this encounter H&P Notes * Rah Rinaldi MD - 05/16/2018 6:23 AM CDT Neurosurgery History and Physical Name: Curtpete Ryder : 1985 Date of Admission:05/16/2018 Date of Consult:05/16/2018 6:23 AM Chief Complaint (CC): generalized seizures refractory to medical treatment HISTORY OF PRESENT ILLNESS (HPI): Patient is a 33 year old male with history of [place]-Gast[place] syndrome, autism spectrum disorder, mental retardation, refractory generalized non-convulsive epilepsy, refractory epilepsy s/p left sidedvagal nerve stimulator (VNS) placement in 2013 who was last seen in the clinic with concerns that battery was approximating the end of its life. It was found to be at 70% after interrogation. Patienthas continued to have seizure episodes at least once a month despite a functioning VNS. Today he presents for VNS generator replacement with Sentiva device. Past Medical History: Diagnosis Date ??? ADHD (attention deficit hyperactivity disorder) ??? Aggression - adjustment disorder ??? Autism ??? Constipation ??? GERD (gastroesophageal reflux disease) ??? MR (mental retardation) severe ??? Seizure disorder last one 02/13/2014 ??? Static encephalopathy Past Surgical History: Procedure Laterality Date ??? EGD 12/20/09 Marcu--gastritis ??? OTHER SURGERY 10/2013 V and S inplanted Allergies Allergen Reactions ??? Amoxicillin ??? Dilantin [Phenytoin Sodium] ??? Tegretol [Carbamazepine] Current Medications bisacodyl (DULCOLAX) 10 MG suppository Insert 10 mg into the rectum as needed for Constipation bisacodyl EC (BISACODYL EC) 5 MG tablet Take 5 mg by mouth once as needed for Constipation Reasons:5 pm on day 4 of No BM busPIRone (BUSPAR) 10 MG tablet 1 Tab 3 times daily. cloBAZam (ONFI) 10 MG tablet Take 20 mg by mouth once daily Reasons: At bedtime cloNIDine (CATAPRES) 0.1 MG tablet Take 0.3 mg by mouth once daily docusate sodium (COLACE) 100 MG capsule Take 100 mg by mouth 2 times daily. Fexofenadine HCl (MUCINEX ALLERGY PO) Take 400 mg by mouth as needed lacosamide (VIMPAT) 200 MG tablet Take 100 tablets by mouth 2 times daily lamoTRIgine (LAMICTAL) 150 MG tablet 2 Tabs 3 times daily. loperamide (IMODIUM) 2 MG capsule Take 2 [...] by mouth once pseudoephedrine (SUDAFED) 30 MG tablet Take 10 mg by mouth as needed for Nasal Congestion Reasons: Stuffy Nose raNITIdine (ZANTAC) 150 MG tablet Take 150 mg by mouth 2 times daily SALINE NASAL SPRAY NA [place] into the nose as needed VITAMIN D PO Take 50,000 Units by mouth every 14 days Take one tab weekly zonisamide (ZONEGRAN) 100 MG capsule Take 100 mg by mouth 2 times daily Current Facility-Administered Medications Medication ??? lactated ringers infusion ??? vancomycin (VANCOCIN) 1,000 mg in 0.9% NaCl 250 mL IVPB Social History Substance Use Topics ??? Smoking status: Never Smoker ??? Smokeless tobacco: Never Used ??? Alcohol use No No family history on file. REVIEW OF SYSTEMS Pertinent items per HPI. PHYSICAL EXAM BP 105/72 Pulse 63 Temp 97.4 ??F (36.3 ??C) Resp 20 Ht 5' 7 (1.702 m) Wt 174 lb 11.2 oz (79.2 kg) SpO2 100% BMI 27.36 kg/m2 General: no acute distress Neuro: awake, alert, follows simple commands. No verbal output during this visit.??Pupils are equaland reactive to light. Face is symmetric. Tongue protrudes??midline. Muscle strength is symmetric and good against resistance throughout, with slightly increased tone to the left lower extremity.??Sensation unable to assess, withdraws all extremities to light painful stimuli. Gait deferred. Chest Incisions are well healed for age without surrounding erythema. LABORATORY Recent Labs Component Name 05/01/18 0922 WBC 5.9 HGB 14.7 HCT 42.4 PLTCOUNT 212 Recent Labs Component Name 04/29/18 1321 NA 140 POTASSIUM 3.9 CO2 19* BUN 22 CREATININE 1.0 Recent Labs Component Name 05/01/18 0922 INR 1.0 RADIOLOGY No new neuroimaging. Assessment: 33 year old male with intractable epilepsy status post vagal nerve stimulator insertion (VNS) in 2013 with persistent seizures despite a functioning VNS who presents for left VNS generator revision with Sentiva device. Plan: - OR today for left chest VNS generator replacement. - The risks and benefits of the procedure were discussed in detail, including: pain, infection, bleeding, damage to surrounding tissues, possible need for future procedures. The patient expressed understanding and willingness to proceed. - Consent signed and in chart. - Site marked. - Ok to proceed with OR when ready. Rah Rinaldi MD 05/16/2018 6:23 AM Associated attestation - Michi Longo MD - 05/16/2018 7:01 AM CDT 33 yo patient with severe epilepsy efractory to medical management. Presented to outside neurologist and felt to be a good candidate for left VNS. Underwent the placement of a left VNS system with postop partial reduction of seizures. Now for left generator revision as current system does not offerthe options for programming provided by Sentiva system. Risks and complications of procedure, and alternatives thereunto, discussed at length with patient and family. All questions answered, and informed consent obtained. documented in this encounter Nursing Notes * Irma De La Paz RN - 05/16/2018 6:48 AM CDT 0640 --- pt's eyes closed; does not respond to tactile/verbal stimulation. Emmy, software project manager, states he might be getting ready to have a seizure. Emmy has magnet and Diastat suppositorypresent if needed. SR up x2; rails padded with pillows. residential field manager at bedside and aware. documented in this encounter OR Notes * Brief Op Note - Diego Cota MD - 05/16/2018 8:24 AM CDT Brief Op Note Procedure: VAGAL NERVE NEUROSTIMULATOR GENERATOR REPLACEMENT Patient Name: Curt Ryder Date of Service: 05/16/2018 Pre-Op Diagnosis: end of VNS battery life Post-Op Diagnosis: Same Surgeon(s) and Role: * Michi Longo MD - Primary * Diego Cota MD - Resident - Assisting Anesthesia Type: general Complications: none EBL: minimal blood loss Drains: Specimen(s): none Diego Olvera MD * Operative - Michi Longo MD - 05/16/2018 7:30 AM CDT Images from the original note were not included. NEUROSURGERY OPERATIVE NOTE NAME: CURT RYDER : 1985 AGE: 33 PROC DATE: 05/16/2018 SEX: M SURGEON: Michi Longo MD PREOPERATIVE DIAGNOSIS: Intractable epilepsy. POSTOPERATIVE DIAGNOSIS: Intractable epilepsy. PROCEDURE: Revision of left vagal nerve stimulator generator with electronic analysis and programming of implanted neurostimulator pulse generator. SURGEON: Michi Longo MD CONTROL EQUIPMENT ELECTRICIAN: Diego Olvera MD ESTIMATED BLOOD LOSS: 5 mL. SPONGE COUNT: Correct. INDICATIONS: This patient presents with epilepsy refractory to medical management. He has had a partial response to vagal nerve stimulation. It is felt that replacement of his generator with a SenTiva generator will afford additional capabilities in controlling seizures. FINDINGS: The existing Jobster model 105, serial #[id number] was replaced with a new Jobster [id number], serial #[id number]. Impedance of the system was 2886 ohms as indicated in this screen capture of the programming device taken at the end of the procedure: Heart rate sensitivity was set to 3, heart rate threshold was set at 70%. Programming was set for normal settings of output of 2.0 milliamps, frequency of 30 Hz, pulse width of 500 microseconds, on time of 30 seconds and off time of 1.1 minutes. Magnet mode was set output of 2.5 milliamps, pulse width of 500 microseconds, and on time of 60 seconds. AutoStim settings were set to an output of 2.5 milliamps, pulse width of 500 microseconds and on time of 30 seconds. The patient was brought to the recovery room in good condition. DESCRIPTION OF PROCEDURE: The patient was brought to the operating room and after suitable timeout for identification, placed on the operating room table and placed under general endotracheal anesthesia. The existing scar from the previous operation was prepped and draped in the usual fashion. The incision was infiltrated with 1% lidocaine with epinephrine. Using the PhotonBlade, the incision wastaken down to the capsule around the generator. The capsule was opened. The suture holding the generator to the pectoralis muscle fascia was cut. The generator was delivered out of the wound. New generator was placed side by side to the old generator. Using the torque wrench, the lead was removed to the old generator, cleaned and placed into the new system. It was secured with a torque wrench. The generator was placed back in the pocket. The system was queried and programmed as well. The wound was copiously irrigated with bacitracin irrigation. Vancomycin powder was placed into the wound. Thegenerator was sutured to the pectoralis muscle fascia with two 2-0 silk. The wound was closed with 3-0 Vicryl in the subcutaneous layer and 4-0 Monocryl in subcuticular technique. Dermabond was placed on the skin edges and the patient was brought to recovery room in good condition. I, Dr. Michi Longo, do hereby certify that I was present in the honeycutt aspects of the procedure including identifying the patient, opening the wound, removing the old generator, placing the new generator, programming the system and closing the case. MD VIKTORIYA Basurto Professor of Neurosurgery office chair assembler, Department of Neurosurgery [id number] Doc ID: [id number] Voice Job ID: [id number] documented in this encounter Plan of Treatment Not on file documented as of this encounter Procedures Procedure Name Priority Date/Time Associated Diagnosis Comments CARDIAC PROCEDURE ORDER 05/19/2018 2:13 PM CDT XR CHEST 1VW PORTABLE STAT 05/16/2018 9:49 AM CDT Status post VNS (vagus nerve stimulator) placement PATHOLOGY TISSUE Routine 05/16/2018 8:44 AM CDT Diagnosis unknown INSERTION/REPLACEMENT CRANIAL NERVE (VAGUS) NEUROSTIMULATOR 05/16/2018 8:04 AM CDT Diagnosis unknown Special Needs SUPINE, LIVANOVA documented in this encounter Results * XR [...] is intact. Dictated by James Black MD (resident in diagnostic radiology). This report was approved ??by James Black [...] thorax isintact. Dictated by James Black MD (resident in diagnostic radiology). This report was approved by James Black [...] ORD ERABLES * XR CHEST 1VW PORTABLE (05/16/2018 9:49 AM CDT) Anatomical Region Laterality Modality Chest Radiographic Vanessa ging 05/16/2018 9:47 AM CDT Impressions 05/16/2018 9:50 AM CDT IMPRESSION: Interval placement of a new vagal nerve stimulator. Dictated by Dalton Saez MD (resident in diagnostic radiology). I, Dr. SHAHNAZ HUNT have personally reviewed and interpreted this examination/study. This report was electronically signed by SHAHNAZ HUNT ??on 05/16/2018 9:50 AM . Narrative 05/16/2018 9:50 AM CDT EXAMINATION: XR CHEST 1VW PORTABLE HISTORY: s/p VNS replacement FINDINGS: Comparison is made with a chest radiograph from 05/01/2018 A vagal nerve stimulator battery pack overlies left chest lead extending to the left neck. The lungs are hypoinflated with bibasilar atelectasis and bronchovascular crowding. There is no focal consolidation, pleural effusion, or pneumothorax. The cardiomediastinal silhouette is normal. The visible bony thorax is intact. Procedure Note Shahnaz Hunt, DO - 05/16/2018 EXAMINATION: XR CHEST 1VW PORTABLE HISTORY: s/p VNS replacement FINDINGS: Comparison is made with a chest radiograph from 05/01/2018 A vagal nerve stimulator battery pack overlies left chest lead extending to the left neck. The lungs are hypoinflated with bibasilar atelectasis andbronchovascular crowding. There is no focal consolidation, pleural effusion, or pneumothorax. The cardiomediastinal silhouette is normal. The visiblebony thorax is intact. IMPRESSION: Interval placement of a new vagal nerve stimulator. Dictated by Dalton Saez MD (resident in diagnostic radiology). I, Dr. SHAHNAZ HUNT have personally reviewed and interpreted this examination/study. This report was electronically signed by SHAHNAZ HUNT on 05/16/2018 9:50 AM . Koby Almanza MD DIAGNOSTIC IMAGI NG ORDERABLES * PATHOLOGY TISSUE (05/16/2018 8:44 AM CDT) Case Report Surgical Pathology Report ? Case: [id number] ? Authorizing Provider: ??Michi Longo MD ? Collected: ? 05/16/2018 08:44 AM ? Ordering Location: ? [facility] ? Received: ?05/16/2018 10:10 AM ? Pathologist: ? Teena Samayoa MD ? Specimen: ?Foreign Object, end of life generator ? 05/19/2018 7:42 PM CDT [facility] Final Diagnosis Foreign object, registered medical assistant, replacement: - Vagal nerve neurostimulator generator (gross examination only) 05/19/2018 7:42 PM CDT [facility] Clinical History End of rated battery life of VNS generator, needs replacement 05/19/2018 7:42 PM CDT [facility] Gross Description The requisition and specimen label(s) are identified with the patient name, Curt Ryder. The specimen is received fresh, specimen A, foreign object, end of life generator consists of a metallic discoid registered medical assistant measuring 5.3 x 5.0 x 1.0 cm. The following inscription is seen on one side of the specimen Aspire HC (trademark) Model 105 Serial #[id number] [employer]. [place], [place]. There is no attached soft tissue, no sections are taken. OEM/cml 05/19/2018 7:42 PM [facility] Disclaimer The performance characteristics of all immunohistochemical and indirect immunofluorescence stains (if any) cited in this report were determined by the Histopathology Laboratory of [facility]. Some of these tests were developed by [...] and interpreted by the attending (teaching) pathologist. 05/19/2018 7:42 PM [facility] Embedded Images 05/19/2018 7:42 PM [facility] Removal MISCELLANEOUS SAMPLES / Unknown 05/16/2018 8:44 AM CDT 05/16/2018 10:10 AM CDT Michi Longo MD LAB - PATHOLOGY/CYT OLOGY ORDERABLES Performing Organization Address City/State/[facility] Co de Phone Number [facility] [address] [phone] documented in this encounter Visit Diagnoses Diagnosis Development delay- Primary Unspecified delay in development Diagnosis unknown Other unknown and unspecified cause of morbidity or mortality Status post VNS (vagus nerve stimulator) placement Other postprocedural status Diagnosis unknown Other unknown and unspecified cause of morbidity or mortality Development delay Unspecified delay in development documented in this encounter Administered Medications Inactive Administered Medications - up to 3 most recent administrations Medication Order MAR Action Action Date Dose Rate Site bacitracin 50,000 Units in NaCl 0.9 % 1,000 mL irrigation PRN, Starting on Sat05/16/18 at 0815, Until Sat05/16/18 at 0832, Intra-op $ Given 05/16/2018 8:15 AM CDT lactated ringers infusion at 20 mL/hr, Intravenous, PRE-OP CONTINUOUS, Starting on Sat05/16/18 at 0545, Until Sat05/16/18 at 1154, Pre-op $ New Bag/Syringe 05/16/2018 6:52 AM CDT 1,000 mL 20 mL/hr lidocaine 1% - EPINEPHrine 1:100,000 injection PRN, Starting on Sat05/16/18 at 0815, Until Sat05/16/18 at 0832, Intra-op $ Given 05/16/2018 8:15 AM CDT 6 mL vancomycin (VANCOCIN) injection PRN, Starting on Sat05/16/18 at 0816, Until Sat05/16/18 at 0832, Indication for anti-infective therapy: Surgical prophylaxis, Intra-op $ Given 05/16/2018 8:16 AM CDT 1,000 mg documented in this encounter Active and Recently Administered Medications Times are shown in CDT. Scheduled Medication Order 05/14/2018 05/15/2018 05/16/2018 albuterol-ipratropium (DUO-NEB) nebulizer solution 3 mL 3 mL, Inhalation, POST-OP MULTIPLE, Starting on Sat05/16/18 at 0842, Until Sat05/16/18 at 1154, For wheezing. Notify anesthesia immediately., PACU hydrALAZINE (APRESOLINE) injection 5 mg 5 mg, Intravenous, POST-OP MULTIPLE, Starting on Sat05/16/18 at 0842, Until Sat05/16/18 at 1154, IV given slowly over 1 minute, up to 20 mg. Repeat 5 mg IV dose every 10-15 minutes for sustained hypertension SBP greater than 180, DBP greater than 100., PACU labetalol (NORMODYNE; TRANDATE) injection 5 mg 5 mg, Intravenous, POST-OP MULTIPLE, Starting on Sat05/16/18 at 0842, Until Sat05/16/18 at 1154, IV given slowly over 1 minute up to 20 mg. Repeat every 10-15 minutes in 5 mg doses. Hold if heart rate is less than 60. Give for hypertension SBP greater than 180, DBP greater than 100., PACU naloxone (NARCAN) injection 0.04 mg 0.04 mg, Intravenous, POST-OP MULTIPLE, Starting on Sat05/16/18 at 0842, Until Sat05/16/18 at 1154, Notify physician immediately, and mix 0.4 mg Naloxone in 9 mL Normal Saline for slow IV push. Administer dilute Naloxone solution IV very slowly (1 mL over 30 seconds) while observing the patient response and titrating to effect. If no response, call Rapid Response, continue IV Naloxone at the same rate up to a total of 0.8 mg of diluted Naloxone., PACU vancomycin (VANCOCIN) 1,000 mg in 0.9% NaCl 250 mL IVPB(Linked Group 1) 1,000 mg, at 250 mL/hr, Intravenous, ONCE, 1 dose, On Sat05/16/18 at 0645, Infuse over 60 minutes, initiated within 2 hours prior to surgical incision., Indication for anti-infective therapy: Surgical prophylaxis, Pre-op 0645 (Due) Continuous Medication Order 05/14/2018 05/15/2018 05/16/2018 lactated ringers infusion at 20 mL/hr, Intravenous, PRE-OP CONTINUOUS, Starting on Sat05/16/18 at 0545, Until Sat05/16/18 at 1154, Pre-op 0652 ($ New Bag/Syri nge - Provider: Irma De La Paz RN) PRN Medication Order 05/14/2018 05/15/2018 05/16/2018 bacitracin 50,000 Units in NaCl 0.9 % 1,000 mL irrigation (CANCELED) PRN, Starting on Sat05/16/18 at 0815, Until Sat05/16/18 at 0832, Intra-op 0815 ($ Given - Prov ider: Diego Olvera MD - Comment: concentrated irrigation on sterile field) diphenhydrAMINE (BENADRYL) injection 25 mg 25 mg, Intravenous, ONCE PRN, Nausea/Vomiting, 1 dose, Starting on Sat05/16/18 at 0842, Until Sat05/16/18 at 1154, Second choice, use if first choice was ineffective., PACU fentaNYL (PF) (SUBLIMAZE) injection 50 mcg 50 mcg, Intravenous, EVERY 10 MIN PRN, Moderate Pain, 4 doses, Starting on Sat05/16/18 at 0842, Until Sat05/16/18 at 1154, Maximum total of 4 doses. If patient reaches max total dose, please consult anesthesiologist prior to further administration of pain meds. Hold pain meds if there are signs of hypoventilation., PACU HYDROmorphone (DILAUDID) injection 0.5 mg 0.5 mg, Intravenous, EVERY 10 MIN PRN, Severe Pain, 4 doses, Starting on Sat05/16/18 at 0842, Until Sat05/16/18 at 1154, Maximum total of 4 doses If patient reaches max total dose, please consult anesthesiologist prior to further administration of pain meds. Hold pain meds if there are signs of hypoventilation., PACU lidocaine 1% - EPINEPHrine 1:100,000 injection (CANCELED) PRN, Starting on Sat05/16/18 at 0815, Until Sat05/16/18 at 0832, Intra-op 0815 ($ Given - Prov ider: Diego Olvera MD - Comment: at injection site) meperidine (DEMEROL) injection 12.5 mg 12.5 mg, Intravenous, ONCE PRN, shivering, Starting on Sat05/16/18 at 0842, Until Sat05/16/18 at 1154, PACU ondansetron (ZOFRAN) injection 4 mg 4 mg, Intravenous, ONCE PRN, Nausea/Vomiting, 1 dose, Starting on Sat05/16/18 at 0842, Until Sat05/16/18 at 1154, Third choice, use if first and second choice was ineffective., PACU prochlorperazine (COMPAZINE) injection 10 mg 10 mg, Intravenous, ONCE PRN, Nausea/Vomiting, Starting on Sat05/16/18 at 0842, Until Sat05/16/18 at 1154, First choice, PACU vancomycin (VANCOCIN) injection (CANCELED) PRN, Starting on Sat05/16/18 at 0816, Until Sat05/16/18 at 0832, Indication for anti-infective therapy: Surgical prophylaxis, Intra-op 0816 ($ Given - Prov ider: Diego Olvera MD - Comment: applied to wound bed) Linked Groups Order Group 1: Vancomycin is being ordered due to: () Vancomycin is being ordered due to: Beta-lactam (penicillin or cephalosporin) allergy, Pre-op And vancomycin (VANCOCIN) 1,000 mg in 0.9% NaCl 250 mL IVPBJump to med 1,000 mg, at 250 mL/hr, Intravenous, ONCE, 1 dose, On Sat05/16/18 at 0645, Infuse over 60 minutes, initiated within 2 hours prior to surgical incision., Indication for anti-infective therapy: Surgical prophylaxis, Pre-op documented in this encounter Care Teams Senior Javascript Engineer Relationship Specialty Start Date End Date Gulshan Mena MD [address] [place] [address] PCP - General Family Medicine 12/19/09 documented as of this encounter
--- OUTSIDE RECORDS SUMMARY | 2024-02-12 05:05 | XMS_ITS | Encounter Summary ---
Author Organization [facility] Address [address] [place] [address] Care Team Providers Care Auto Overhauler Name Role Phone Gulshan Mena MD Primary Care Provider [phone] Reason for Referral * Procedure (Routine) - Closed Specialty Diagnoses / Procedures Referred By Contac t Referred To Contact Cardiology Diagnoses Pre-op testing Procedures EKG 12-LEAD Michi Longo MD [address] [facility] [address] [place] [address] Referral ID Status Reason Start Date Expiration Date Visits Re quested Visits Authorized [id number] Closed 04/21/2020 04/21/2021 1 1 RWRITING ANALYST Reason for Visit * Procedure (Routine) - Closed Specialty Diagnoses / Procedures Referred By Contac t Referred To Contact Cardiology Diagnoses Pre-op testing Procedures EKG 12-LEAD Michi Longo MD [address] [facility] [address] [place] [address] Referral ID Status Reason Start Date Expiration Date Visits Re quested Visits Authorized [id number] Closed 04/21/2020 04/21/2021 1 1 Encounter Details Date Type Department Care Team (Latest Contact Info) Description 04/21/2020 9:30 AM UNDERWRITING ANALYST - 04/21/2020 9:36 AM UNDERWRITING ANALYST Hospital Encounter [facility] EKG/HOLTER [address] [place] [id number] Michi Longo MD [address] [facility] [address] [place] [address] Discharge Disposition: Home or Self Care Social [...] COVID-19? No / Unsure 04/21/2020 9:07 AM UNDERWRITING ANALYST documented as of this encounter Medications at [...] Take 0.3 mg by mouth once daily diazePAM (VALTOCO 10 MG DOSE) 10 MG/0.1ML nasal spray [place] 10 mg into the nose 03/18/2020 docusate sodium (COLACE) 100 MG capsule Take 100 mg by mouth 2 times daily. 12/20/2009 famotidine (PEPCID) 20 MG tablet Take 20 mg by mouth 2 times daily Fexofenadine HCl (MUCINEX ALLERGY PO) Take 400 mg by mouth as needed HYDROcodone-acetamino phen (NORCO) 5-325 MG tablet Take 1 (one) tablet by mouth every 6 hours as needed for Pain 12 tablet 05/25/2020 lacosamide (VIMPAT) 200 MG tablet Take 100 [...] Reasons: Stuffy Nose SALINE NASAL SPRAY NA [place] into the nose as needed VITAMIN D [...] Procedure Name Priority Date/Time Associated Diagnosis Comments EKG 12-LEAD Routine 04/21/2020 9:27 AM UNDERWRITING ANALYST Pre-op testing documented in this encounter Results * EKG 12-LEAD (04/21/2020 9:27 AM UNDERWRITING ANALYST) Ventricular Rate 67 BPM [facility] MUSE Atrial Rate 67 BPM [facility] P-R Interval 172 ms [facility] MUSE QRS Duration ms 86 ms [facility] Q-T Interval ms 396 ms [facility] QTC Calculation (Bezet) 418 ms [facility] Calculated P Dalton 24 degrees [facility] Calculated R Dalton 24 degrees [facility] Calculated T Dalton 37 degrees [facility] Interpretation EKG NORMAL SINUS RHYTHM NORMAL ECG WHEN COMPARED WITH ECG OF 29-APR-2018 11:00, NO SIGNIFICANT CHANGE WAS FOUND Confirmed by Augustin Mitchell ([id number]) on 04/23/2020 2:20:05 PM [facility] MUSE 04/21/2020 9:27 AM UNDERWRITING ANALYST 04/23/2020 2:20 PM UNDERWRITING ANALYST Michi Longo MD ECG ORDERABLES [facility] MUSE documented in this encounter Visit Diagnoses Diagnosis Pre-op testing Preoperative examination, unspecified documented in this encounter Care Teams Auto Overhauler Relationship Specialty Start Date End Date Gulshan Mena MD [address] [place] [address] PCP - General Family Medicine 12/19/09 documented as of this encounter
--- OUTSIDE RECORDS SUMMARY | 2024-02-12 05:05 | XMS_ITS | Encounter Summary ---
Author Organization [facility] Address [address] [facility] [address] Care Team Providers Care Supervisor [employer]aking Shop Name Role Phone Gulshan Mena MD Primary Care Provider [phone] Reason for Referral * Home Health Care (Routine) - Closed Specialty Diagnoses / Procedures Referred By Contac t Referred To Contact Home Health Services Diagnoses Acute calculous cholecystitis Autism (HCC) Jessica Angel MD [address] [place] [address], [address] [address] Referral ID Status Reason Start Date Expiration Date V isits Requested Visits Authorized [id number] Closed Specialty Services Required 11/28/2023 11/27/2024 999 999 Encounter Details Date Type Department Care Team (Late st Contact Info) Description 11/28/2023 Orders Only [facility] Scheduling [address] [place] [address] Jessica Angel MD [address] [facility] [id number] Acute calculous cholecystitis ; Autism (HCC) Social History Tobacco Use Types Packs/Day Years Used Date Smoking Tobacco: Never Smokeless Tobacco: Never Alcohol Use Standard Drinks/Week Comments No 0 (1 standard drink = 0.6 oz pur e alcohol) Sex and Gender Information Value Date Recorded Sex Assigned at Not on file Gender Identity Not on file Sexual Orientation Not on file documented as of this encounter Plan of Treatment Scheduled Referrals Name Type Priority Associated Diagnoses Orde r Schedule AMB REFERRAL TO HOME HEALTH CARE Outpatient Referral Routine Acute calculous cholecystitis Autism (HCC) Ordered: 11/28/2023 documented as of this encounter Visit Diagnoses Diagnosis Acute calculous cholecystitis- Primary Calculus of gallbladder with acute cholecystitis, without mention of obstruction Autism (HCC) Autistic disorder, current or active state documented in this encounter Care Teams Supervisor [employer]aking [employer] Relationship Specialty Start Date End Date Gulshan Mena MD [address] [place] [address] PCP - General Family Medicine 12/19/09 documented as of this encounter
--- OUTSIDE RECORDS SUMMARY | 2024-02-12 05:05 | XMS_ITS | Encounter Summary ---
Author Organization [facility] Address [address] [place] [address] Care Team Providers Care Supervisor [employer] Name Role Phone Gulshan Mena MD Primary Care Provider [phone] Reason for Visit * Reason Comments Post-Op 6 WEEK Encounter Details Date Type Department Care Team (Late st Contact Info) Description 07/24/2018 10:45 AM CDT Office Visit [facility] [address] [place] [address] Michi Longo MD [address] [place] [address] Status post VNS (vagus nerve stimulator) placement [...] Sign Reading Time Taken Comments Blood Pressure 108/75 07/24/2018 10:39 AM CDT Pulse 66 07/24/2018 10:39 AM CDT Temperature 35.9 ??C (96.6 ??F) 07/24/2018 10:39 AM C DT Respiratory Rate - - Oxygen Saturation - - Inhaled Oxygen Concentration - - Weight 83.9 kg (185 lb) 07/24/2018 10:39 AM CDT Height 170.2 cm (5' 7 ) 07/24/2018 10:39 AM CDT Body Mass Index 28.98 07/24/2018 10:39 AM CDT documented in this encounter Patient Instructions * Patient Instructions* Felicitas Chou - 07/24/2018 11:12 AM CDT Discharge from clinic For any questions please call Felicitas [phone] documented in this encounter Progress Notes * Tony Caery MD - 07/24/2018 1:47 PM CDT Neurosurgery Clinic Progress Note Chief Complaint (CC): follow up HISTORY OF PRESENT ILLNESS (HPI): This patient is a 33 year old male with a history of Emmett-Gastaut syndrome, autism spectum disorded, mental retardation, and 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 History was obtained from his nurse. She denies any recent fevers, chills, or discharge from the wound. Past Medical History: Diagnosis Date ??? ADHD [...] family history on file. REVIEW OF SYSTEMS Constitutional: negative Cardiovascular: negative Pulmonary: negative Renal: negative Gastrointestinal: negative Musculoskeletal: negative Neurologic: positive for seizures PHYSICAL EXAM BP 108/75 (BP SITE: LEFT ARM, BP POSITION: SITTING, BP CUFF SIZE: 11) Pulse 66 Temp 96.6 ??F (35.9 ??C) (Axillary) Ht 5' 7 (1.702 m) Wt 185 lb (83.9 kg) BMI 28.98 kg/m2 General: no acute distress Cardiovascular: warm, well perfused Respiratory: non-labored breathing Abdominal: soft, nontender, nondistended Integument: no lesions found Vascular: capillary refill < 3 seconds Neurologic: Awake, alert, nonverbal, pupils are equal and reactive to light, face is symmetric, follows simple commands, symmetric strength in extremities, left chest incision is healing well RADIOLOGICAL REVIEW No new neuroimaging was obtained for this visit. Assessment and Plan: Travis Beebe is status post recent VNS generator revision, presenting to clinic for follow up. Hisincision is healing well without concern for infection. He should continue to follow with his neurologist for further management of his VNS. He is discharged from our clinic at this time. Tony Carey MD 07/24/2018 1:47 PM * Michi Longo MD - 07/24/2018 11:10 AM CDT Note from resident reviewed, edited, patient seen and examined, no new images to review, and situation discussed with patient's two caregivers present. For additional details please refer to communication to referring physician / Aide in [place]. documented in this encounter Plan of Treatment Not on file documented as of this encounter Visit Diagnoses Diagnosis Status post VNS (vagus nerve stimulator) placement- Primary Other postprocedural status documented in this encounter Care Teams Supervisor Core Shop Relationship Specialty Start Date End Date Gulshan Mena MD [address] [place] [address] PCP - General Family Medicine 12/19/09 documented as of this encounter
--- OUTSIDE RECORDS SUMMARY | 2024-02-12 05:05 | XMS_ITS | Encounter Summary ---
Author Organization [facility] Address [address] [facility] [place] [address] Care Team Providers Care Presser Hand Name Role Phone Gulshan Mena MD Primary Care Provider [phone] Encounter Details Date Type Department Care Team (Latest Contact Info) Description 04/21/2020 9:10 AM MAGNETIC DOCTOR - 04/21/2020 9:14 AM MAGNETIC DOCTOR Hospital Encounter [facility] DIAGNOSTIC RAD OP [address] [place] [phone] Michi Longo MD [address] [place] [address] Discharge Disposition: Home or Self Care Social [...] COVID-19? No / Unsure 04/21/2020 9:07 AM MAGNETIC DOCTOR documented as of this encounter Medications at [...] 10 MG DOSE) 10 MG/0.1ML nasal spray [place] 10 mg into the nose 03/18/2020 docusate [...] Reasons: Stuffy Nose SALINE NASAL SPRAY NA [place] into the nose as needed VITAMIN D [...] Associated Diagnosis Comments XR CHEST 2VW Routine 04/21/2020 9:30 AM MAGNETIC DOCTOR Pre-op testing XR NECK SOFT TISSUE Routine 04/21/2020 9 :30 AM MAGNETIC DOCTOR Pre-op testing documented in this encounter Results * XR NECK SOFT TISSUE (04/21/2020 9:30 AM MAGNETIC DOCTOR) Anatomical Region Laterality Modality Head Radiographic Vanessa ging 04/21/2020 10:4 4 AM MAGNETIC DOCTOR Impressions 04/21/2020 11:48 AM MAGNETIC DOCTOR IMPRESSION: 1.Vagal nerve stimulator superimposes the left chest with leads extending into the left neck and terminating in the left neck soft tissue. 2.No acute pulmonary process. Dictated by Marley Jaimes MD (vice president of sales). I, Dr. QUOC HUNT have personally reviewed and interpreted this examination/study. This report was electronically signed by QUOC HUNT ??on 04/21/2020 11:48 AM . Narrative 04/21/2020 11:48 AM MAGNETIC DOCTOR EXAMINATION: XR NECK SOFT TISSUE, XR CHEST [...] intervertebral disc spaces are maintained. Procedure Note CarineQuoc cummings Mariana, - 04/21/2020 EXAMINATION: XR NECK SOFT TISSUE, [...] pulmonary process. Dictated by Marley Jaimes MD (vice president of sales). IDr. QUOC have personally reviewed and interpreted this examination/study. This report was electronically signed by QUOC HUNT on 04/21/2020 11:48 AM . Michi Longo MD DIAGNOSTIC IMAGING ORDERABLES * XR CHEST 2VW (04/21/2020 9:30 AM MAGNETIC DOCTOR) Anatomical Region Laterality Modality Chest Radiographic Vanessa ging 04/21/2020 10:4 4 AM MAGNETIC DOCTOR Impressions 04/21/2020 11:48 AM MAGNETIC DOCTOR IMPRESSION: 1.Vagal nerve stimulator superimposes the left chest with leads extending into the left neck and terminating in the left neck soft tissue. 2.No acute pulmonary process. Dictated by Marley Jaimes MD (vice president of sales). Dr. QUOC Foster have personally reviewed and interpreted this examination/study. This report was electronically signed by QUOC HUNT ??on 04/21/2020 11:48 AM . Narrative 04/21/2020 11:48 AM MAGNETIC DOCTOR EXAMINATION: XR NECK SOFT TISSUE, XR CHEST [...] intervertebral disc spaces are maintained. Procedure Note Quoc Hunt, - 04/21/2020 EXAMINATION: XR NECK SOFT [...] pulmonary process. Dictated by Marley Jaimes MD (vice president of sales). I, Dr. QUOC HUNT have personally reviewed and interpreted this examination/study. This report was electronically signed by QUOC HUNT on 04/21/2020 11:48 AM . Michi Longo MD DIAGNOSTIC IMAGING ORDERABLES documented in this encounter Visit Diagnoses Diagnosis Pre-op testing Preoperative examination, unspecified documented in this encounter Care Teams Presser Hand Relationship Specialty Start Date End Date Gulshan Mena MD [address] [place] [address] PCP - General Family Medicine 12/19/09 documented as of this encounter
--- OUTSIDE RECORDS SUMMARY | 2024-02-12 05:05 | XMS_ITS | Encounter Summary ---
Author Organization [facility] Address [address] [facility] [place] [address] Care Team Providers Care Senior Data Mining Analyst Name Role Phone Gulshan Mena MD Primary Care Provider [phone] Reason for Visit * Auth/Cert Specialty Diagnoses / Procedures Referred By Contac t Referred To Contact Diagnoses Diagnosis unknown end of VNS battery life Procedures INSERTION CRANIAL/VAGAL NERVE NEUROSTIMULATOR ELECTRODES/GENERATOR Referral ID Status Reason Start Date Expiration Date Visits Re quested Visits Authorized [id number] 1 1 Encounter Details Date Type Department Care Team (Latest Contact Info) Description 05/16/2018 5:15 AM CDT - 05/16/2018 10:53 AM CDT Hospital Encounter [facility] [address] [place] [phone] Michi Longo MD [address] [facility] 2[address] [place] [address] Neurosurgery Discharge Disposition: Other Facility Not Defined Elsewhere Social History Tobacco Use Types Packs/Day Years [...] Reasons: Stuffy Nose SALINE NASAL SPRAY NA [place] into the nose as needed VITAMIN D [...] AM CDT Neurosurgery History and Physical Name: Curt Ryder : 1985 Date of Admission:05/16/2018 Date of Consult:05/16/2018 6:23 AM Chief Complaint (CC): generalized seizures refractory to medical treatment HISTORY OF PRESENT ILLNESS (HPI): Patient is a 33 year old male with history of Oxford-Gastaut syndrome, autism spectrum disorder, mental retardation, refractory generalized non-convulsive epilepsy, refractory epilepsy s/p left sidedvagal nerve stimulator (VNS) placement in 2013 who was last seen in the clinic with concerns that battery was approximating the end of its life. It was found to be at 70% after interrogation. Patientedis continued to have seizure episodes at least [...] 2 times daily SALINE NASAL SPRAY NA [place] into the nose as needed VITAMIN D [...] m) Wt 174 lb 11.2 oz (79.2 kg)SpO2 100% BMI 27.36 kg/m2 General: no acute [...] presents for left VNS generator revision with ReFlow Medicalva device. Plan: - OR today for left [...] not offerthe options for programming provided by [facility] system. Risks and complications of procedure, and alternatives thereunto, discussed at length with patient and family. All questions answered, and informed consent obtained. documented in this encounter Nursing Notes * Irma De La Paz RN - 05/16/2018 6:48 AM CDT 0640 --- pt's eyes closed; does not respond to tactile/verbal stimulation. Emmy, erp manager, states he might be getting ready to have a seizure. Emmy has magnet and Diastat suppositorypresent if needed. SR up x2; rails padded with pillows. residential child care counselor at bedside and aware. documented in this [...] neurostimulator pulse generator. SURGEON: Michi Longo MD EXPERIENCE PLANNING STRATEGIST: Diego Olvera MD ESTIMATED BLOOD LOSS: 5 mL. SPONGE COUNT: Correct. INDICATIONS: This patient presents with epilepsy refractory to medical management. He has had a partial response to vagal nerve stimulation. It is felt that replacement of his generator with a SenTiva generator will afford additional capabilities in controlling seizures. FINDINGS: The existing Crowd Cast model 105, serial #[id number] was replaced with a new [employer] [id number], serial #[id number]. Impedance of the system was 2886 ohms [...] case. MD VIKTORIYA Basurto Professor of Neurosurgery engineering department chair, Department of Neurosurgery [id number] Doc ID: [id number] Voice Job ID: [id number] documented in this encounter Plan of Treatment [...] intact. Dictated by James Black MD (resident program specialist). This report was approved ??by James Black [...] isintact. Dictated by James Black MD (resident program specialist). This report was approved by James Black [...] stimulator. Dictated by Dalton Saez MD (resident program specialist). Dr. SHAHNAZ Foster have personally reviewed and [...] stimulator. Dictated by Dalton Saez MD (resident program specialist). Dr. SHAHNAZ Foster have personally reviewed and interpreted this examination/study. This report was electronically signed by SHAHNAZ HUNT on 05/16/2018 9:50 AM . Koby Almanza MD DIAGNOSTIC IMAGI NG ORDERABLES * PATHOLOGY TISSUE (05/16/2018 8:44 AM CDT) Case Report Surgical Pathology Report ? Case: [id number] ? Authorizing Provider: ??Michi Longo MD ? Collected: ? 05/16/2018 08:44 AM ? Ordering Location: ? [facility] ? Received: ?05/16/2018 10:10 AM ? Pathologist: ? Teena Samayoa MD ? Specimen: ?Foreign Object, end of life generator ? 05/19/2018 7:42 PM [facility] Final Diagnosis Foreign object, emergency medical service manager, replacement: - Vagal nerve neurostimulator generator (gross examination only) 05/19/2018 7:42 PM [facility] Clinical History End of rated battery life of VNS generator, needs replacement 05/19/2018 7:42 PM [facility] Gross Description The requisition and specimen label(s) are identified with the patient name, Curt Ryder. The specimen is received fresh, specimen A, foreign object, end of life generator consists of a metallic discoid emergency medical service manager measuring 5.3 x 5.0 x 1.0 cm. The following inscription is seen on one side of the specimen [employer]ire HC (trademark) Model 105 Serial #[id number] [employer] [place], [place]. There is no attached soft tissue, no sections are taken. OEM/cml 05/19/2018 7:42 PM CDT [facility] Disclaimer The performance characteristics of all immunohistochemical and indirect immunofluorescence stains (if any) cited in this report were determined by the Histopathology Laboratory of [facility]. Some of these tests were [...] the attending (teaching) pathologist. 05/19/2018 7:42 PM CDT [facility] Embedded Images 05/19/2018 7:42 PM CDT [facility] Removal MISCELLANEOUS SAMPLES / Unknown 05/16/2018 8:44 AM CDT 05/16/2018 10:10 AM CDT Michi Longo MD LAB - PATHOLOGY/CYT OLOGY ORDERABLES [facility] [address] [phone] documented in this encounter Visit Diagnoses Diagnosis Development delay- Primary Unspecified delay in development Diagnosis unknown Other unknown and unspecified cause of morbidity or mortality Status post VNS (vagus nerve stimulator) placement Other postprocedural status Development delay Unspecified delay in development documented in this encounter Administered Medications Inactive Administered Medications - up to 3 most recent administrations Medication Order MAR Action Action Date Dose Rate Site lactated ringers infusion at 20 mL/hr, Intravenous, PRE-OP CONTINUOUS, Starting on Sat05/16/18 at 0545, Until Sat05/16/18 at 1154, Pre-op $ New Bag/Syringe 05/16/2018 6:52 AM CDT 1,000 mL 20 mL/hr documented in this encounter Active and Recently [...] documented in this encounter Care Teams Senior Data Mining Analyst Relationship Specialty Start Date End Date Gulshan Mena MD [address] [place] [address] PCP - General Family Medicine 12/19/09 documented as of this encounter
--- OUTSIDE RECORDS SUMMARY | 2024-02-12 05:05 | XMS_ITS | Encounter Summary ---
Author Organization [facility] Health Address [address] [place] [address] Care Team Providers Care Aircraft Machinist Helper Name Role Phone Gulshan Mena MD Primary Care Provider [phone] Reason for Visit * Auth/Cert Specialty Diagnoses / Procedures Referred By Contac t Referred To Contact Diagnoses Diagnosis unknown end of VNS battery life Procedures INSERTION CRANIAL/VAGAL NERVE NEUROSTIMULATOR ELECTRODES/GENERATOR Referral ID Status Reason Start Date Expiration Date Visits Re quested Visits Authorized [id number] 1 1 Encounter Details Date Type Department Care Team (Latest Contact Info) Description 05/07/2018 10:34 AM CDT - 05/07/2018 1:45 PM CDT Hospital Encounter [facility] [address] [place] [id number] Michi Longo MD [address] [facility] [address] [place] [address] Surgery General Discharge Disposition: Other Facility Not Defined Elsewhere [...] Sign Reading Time Taken Comments Blood Pressure 109/64 05/07/2018 11:05 AM CDT Pulse 64 05/07/2018 11:05 AM CDT Temperature 35.9 ??C (96.6 ??F) 05/07/2018 11:05 AM C DT Respiratory Rate 14 05/07/2018 11:05 AM CDT Oxygen Saturation 100% 05/07/2018 11:05 AM CDT Inhaled Oxygen Concentration - - Weight 76.9 kg (169 lb 8 oz) 05/07/2018 11:05 AM CDT Height 170.2 cm (5' 7 ) 05/07/2018 11:05 AM CDT Body Mass Index 26.55 05/07/2018 11:05 AM CDT documented in this encounter Medications at Time [...] Reasons: Stuffy Nose SALINE NASAL SPRAY NA Parker into the nose as needed VITAMIN D PO Take 50,000 Units by mouth every 14 days Take one tab weekly zonisamide (ZONEGRAN) 100 MG capsule Take 100 mg by mouth 2 times daily raNITIdine (ZANTAC) 150 MG tablet Take 150 mg by mouth 2 times daily 05/24/2020 documented as of this encounter H&P Notes * Michi Longo MD - 05/07/2018 11:58 AM CDT Neurosurgery H&P Name: Travis Beebe :1985 Date of Admission:05/07/2018 Date of Consult:05/07/201811:59 AM HISTORY OF PRESENT ILLNESS (HPI): Patient is a 33 year old male with history of Emmett-Gastaut syndrome, autism spectrum disorder, mental retardation, refractory [...] for VNS generator replacement with Sentiva device. Mom denies any recent changes in boy's health. Consent obtained via the phone(Mary Beebe, mother) Past Medical History: Diagnosis Date ??? ADHD (attention deficit hyperactivity disorder) ??? Aggression - adjustment disorder ??? Autism ??? Constipation ??? GERD (gastroesophageal reflux disease) ??? MR (mental retardation) severe ??? Seizure disorder last one 02/13/2014 ??? Static encephalopathy Past Surgical History: Procedure Laterality Date ??? EGD 12/20/09 Marcu--gastritis ??? OTHER SURGERY 10/2013 V and S inplanted Current Facility-Administered Medications Medication ??? lactated ringers infusion Allergies Allergen Reactions ??? Amoxicillin ??? Dilantin [Phenytoin Sodium] ??? Tegretol [Carbamazepine] Social History Substance Use Topics ??? Smoking status: Never Smoker ??? Smokeless tobacco: Never Used ??? Alcohol use No No family history on file. REVIEW OF SYSTEMS Pertinent items are noted in HPI. PHYSICAL EXAM BP 109/64 Pulse 64 Temp 96.6 ??F (35.9 ??C) Resp 14 Ht 5' 7 (1.702 m) Wt 169 lb 8 oz (76.9 kg) SpO2 100% BMI 26.55 kg/m2 General: The patient is in no acute distress. Heart: Regular rate Lungs: Non labored breathing Neuro: awake, alert, follows simple commands. No verbal output during this visit.??Pupils are equaland reactive to light. Face is symmetric. Tongue protrudes??midline. Muscle strength is symmetric and good against resistance throughout, with slightly increased tone to the left lower extremity.??Sensation unable to assess, withdraws all extremities to light painful stimuli. Gait deferred Chest Incisions are well healed for age without surrounding erythema. ?? 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 ? OR for left VNS generator revision Risks and complications of the procedure, and alternatives thereunto, discussed at length, and all questions answered Consent obtained via the phone(Mary Beebe, mother) Ok to proceed when cleared by an anesthesia Koby Almanza MD 05/07/2018 11:59 AM Multiple attempts to reach mother; according to rn urgent care she has been unreachable for weeks. Battery is in good condition; the surgery was meant to provide the patient with a system with advanced features that might better control his seizures. However, in absence of ability to obtain informed consent, we must cancel surgery and hopefully at some point mother might be reachable and she might bemotivated to give consent for revision. documented in this encounter Nursing Notes * Felicitas Pool RN - 05/07/2018 1:47 PM CDT Unable to get a hold of mother, who is legal guardian, to obtain consent - surgery cancelled documented in this encounter Plan of Treatment Not on file documented as of this encounter Visit Diagnoses Not on filedocumented in this encounter Administered Medications Inactive Administered Medications - up to 3 most recent administrations Medication Order MAR Action Action Date Dose Rate Site 0.9% NaCl infusion at 75 mL/hr, Intravenous, CONTINUOUS, Starting on Sat05/07/18 at 1245, Until Sat05/07/18 at 1501, Pre-op lactated ringers infusion at 20 mL/hr, Intravenous, PRE-OP CONTINUOUS, Starting on Sat05/07/18 at 1115, Until Sat05/07/18 at 1501, Pre-op $ New Bag/Syringe 05/07/2018 12:00 PM CDT 1,000 mL 20 mL/hr documented in this encounter Active and Recently Administered Medications Times are shown in CDT. Scheduled Medication Order 05/05/2018 05/06/2018 05/07/2018 clindamycin (CLEOCIN) 900 mg in 50 mL D5W IVPB 900 mg, at 100 mL/hr, Intravenous, ONCE, 1 dose, On Sat05/07/18 at 1230, Initiate within 30 minutes prior to surgical incision., Indication for anti-infective therapy: Surgical prophylaxis, Pre-op 1230 (Due) Continuous Medication Order 05/05/2018 05/06/2018 05/07/2018 0.9% NaCl infusion at 75 mL/hr, Intravenous, CONTINUOUS, Starting on Sat05/07/18 at 1245, Until Sat05/07/18 at 1501, Pre-op 1245 (Due) lactated ringers infusion at 20 mL/hr, Intravenous, PRE-OP CONTINUOUS, Starting on Sat05/07/18 at 1115, Until Sat05/07/18 at 1501, Pre-op 1200 ($ New Bag/Syri nge - Provider: Felicitas Pool, RN) documented in this encounter Care Teams Aircraft Machinist Helper Relationship Specialty Start Date End Date Gulshan Mena MD [address] [place] [address] PCP - General Family Medicine 12/19/09 documented as of this encounter
--- OUTSIDE RECORDS SUMMARY | 2024-02-12 05:05 | XMS_ITS | Encounter Summary ---
Author Organization [facility] Health Address [address] [place] [address] Care Team Providers Care Test Kitchen Home Economist Name Role Phone Gulshan Mena MD Primary Care Provider [phone] Reason for Visit * Reason Comments Seizure Presents to ED via E MS from long-term after 20 minute seizure. Given 20 mg Volume given by staff. Per EMS, broke upon EMS arrival. Pt arrives to ED at baseline. Hx autism, TBI. Staff present with pt. Encounter Details Date Type Department Care Team (Late st Contact Info) Description 01/11/2024 11:38 AM WATER TREATMENT PLANT REPAIRER - 01/11/2024 3:40 PM WATER TREATMENT PLANT REPAIRER Emergency ER at [facility] [address] [place] [address] Chip Chacon, DO [address] [place] [address] Breakthrough seizure (HCC) (Primary Dx); Seizure (HCC) Discharge Disposition: Home or Self Care Social [...] Comments Blood Pressure 120/82 01/11/2024 3:39 PM WATER TREATMENT PLANT REPAIRER Pulse 98 01/11/2024 3:39 PM WATER TREATMENT PLANT REPAIRER Temperature 37 ??C (98.6 ??F) 01/11/2024 3:39 PM WATER TREATMENT PLANT REPAIRER Respiratory Rate - - Oxygen Saturation 100% 01/11/2024 3:39 PM WATER TREATMENT PLANT REPAIRER Inhaled Oxygen Concentration - - Weight - - Height - - Body Mass Index - - documented in this encounter Discharge Instructions * Discharge Instructions* Chip Chacon DO - 01/11/2024 2:42 PM WATER TREATMENT PLANT REPAIRER Follow up with your primary care physician in 1-3 days. Follow up with your already scheduled appointment on Saturday with urine neurologist. Take medication(s) as prescribed. Return to the emergency department if worse. R TREATMENT PLANT REPAIRER documented in this encounter Medications at Time [...] 0.3 mg by mouth once daily diazePAM (Valtoco 10 MG Dose) 10 MG/0.1ML nasal spray Edwards 0.1 mL into the nose as needed for Seizures 2 Each 01/11/2024 diazePAM (VALTOCO 10 MG DOSE) 10 MG/0.1ML nasal spray Edwards 10 mg into the nose 03/18/2020 docusate sodium (COLACE) 100 MG capsule Take 100 mg by mouth 2 times daily. 12/20/2009 famotidine (PEPCID) 20 MG tablet Take 20 mg by mouth 2 times daily Fexofenadine HCl (MUCINEX ALLERGY PO) Take 400 mg by mouth as needed HYDROcodone-acetaminop hen (NORCO) 5-325 MG tablet Take 1 (one) [...] Reasons: Stuffy Nose SALINE NASAL SPRAY NA Edwards into the nose as needed VITAMIN D PO Take 50,000 Units by mouth every 14 days Take one tab weekly zonisamide (ZONEGRAN) 100 MG capsule Take 100 mg by mouth 2 times daily documented as of this encounter ED Notes * Trixie Haro RN - 01/11/2024 3:35 PM CST Pt discharge prior to blood draw, urine sample. Uelk aware. No further action at this time. R TREATMENT PLANT REPAIRER * Trixie Haro RN - 01/11/2024 3:30 PM CST Discharge instructions reviewed with pt child care sitter at this time. All questions answered. Pt was discharged to child care sitter. Pt left via wheelchair. R TREATMENT PLANT REPAIRER * Trixie Haro RN - 01/11/2024 1:19 PM CST External male pure wick placed for UA sample. Pt tolerated well. R TREATMENT PLANT REPAIRER * Trixie Haro RN - 01/11/2024 1:05 PM CST skilled helper at bedside states pt was crying out earlier. States she thinks pt may be in pain. Oswaldo notified. R TREATMENT PLANT REPAIRER * Chip Chacon DO - 01/11/2024 12:28 PM CST Travis Beebe [id number] ER AT [facility] History Chief Complaint Patient presents with Seizure Presents to ED via EMS from long-term after 20 minute seizure. Given 20 mg Volume given by staff. Per EMS, broke upon EMS arrival. Pt arrives to ED at baseline. Hx autism, TBI. Staff present with pt. HPI 38-year-old male with a history of a TBI and epilepsy presents emergency department complaining of a seizure at his long-term where it reportedly lasted approximately 20-25 minutes and was generalized tonic-clonic like. He was reportedly given 20 mg of Versed with improvement. Reportedly he does have seizures around every other day. Reportedly he had a seizure a couple days ago that lasted approximately 40 minutes and was admitted to [facility] and then discharged yesterday. Reportedly he was seen by Neurology. He is compliant with his medications. He is normally nonverbal therefore history is limited. His significant other has not notice any abnormal symptoms lately other than the seizures. She denies noticing any obvious pain nausea vomiting fevers headache focal weakness focal numbness cough urinary symptoms or any other complaints at this time. 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 Social History Socioeconomic History Marital status: Single Spouse name: Not on file Number of children: Not on file Years of education: Not on file Highest education level: Not on file Occupational History Not on file Tobacco Use Smoking status: Never Smokeless tobacco: Never Vaping Use Vaping status: Never Used Substance and Sexual Activity Alcohol use: No Drug use: No Sexual activity: Never Other Topics Concern Service Not Asked Blood Transfusions Not Asked Caffeine Concern No Occupational Exposure Not Asked Hobby Hazards Not Asked Sleep Concern Not Asked Stress Concern Not Asked Weight Concern Yes Comment: wt loss - 10# in 8 days Special Diet Not Asked Back Care Not Asked Exercise Not Asked Bike Helmet Not Asked Seat Belt Not Asked Self-Exams Not Asked Social History Narrative Not on file Social Determinants of Health Financial Resource Strain: Not on file Food Insecurity: No Food Insecurity (01/08/2024) Received from [place], [place] and [facility] Food Insecurity Social/Environmental Concerns: No concerns Transportation Needs: No Transportation Needs (01/08/2024) Received from [place], [place] and [facility] Transportation Needs Social/Environmental Concerns: No concerns Stress: Not on file Housing Stability: Low Risk (01/08/2024) Received from [place], [place] and [facility] Housing Stability Social/Environmental Concerns: No concerns Review of Systems ROS Physical Exam BP 124/90 Pulse 109 Temp 99.1 ??F (37.3 ??C) (Axillary) SpO2 97% Physical Exam Vitals and nursing note reviewed. Constitutional: General: He is not in acute distress. Appearance: He is well-developed. He is not diaphoretic. HENT: Head: Normocephalic and atraumatic. Eyes: Extraocular Movements: Extraocular movements intact. Conjunctiva/sclera: Conjunctivae normal. Pupils: Pupils are equal, round, and reactive to light. Comments: Pupils 3 mm bilaterally and reactive. Neck: Vascular: No JVD. Trachea: No tracheal deviation. Cardiovascular: Rate and Rhythm: Normal rate and regular rhythm. Heart sounds: Normal heart sounds. No murmur heard. No friction rub. No gallop. Pulmonary: Effort: Pulmonary effort is normal. No respiratory distress. Breath sounds: Normal breath sounds. No stridor. No wheezing or rales. Abdominal: General: Bowel sounds are normal. There is no distension. Palpations: Abdomen is soft. Tenderness: There is no abdominal tenderness. There is no guarding or rebound. Musculoskeletal: General: No tenderness. Normal range of motion. Cervical back: Neck supple. Comments: No edema. Negative Homans sign bilateral lower extremities. Skin: Coloration: Skin is not pale. Findings: No erythema or rash. Neurological: Mental Status: He is alert. GCS: GCS eye subscore is 4. GCS verbal subscore is 5. GCS motor subscore is 6. Coordination: Coordination normal. Comments: Unable to perform heel to forde Unable to perform No meningeal signs Sensation intact x4 extremities Muscular strength 5/5 x4 extremities Finger to nose intact bilaterally Psychiatric: Mood and Affect: Mood normal. Medications Current Outpatient Medications Medication Sig Dispense Refill bisacodyl (DULCOLAX) 10 MG suppository Insert 10 [...] 0.3 mg by mouth once daily diazePAM (Valtoco 10 MG Dose) 10 MG/0.1ML nasal spray Edwards 0.1 mL into the nose as needed for Seizures 2 Each 0 diazePAM (VALTOCO 10 MG DOSE) 10 MG/0.1ML nasal spray Edwards 10 mg into the nose docusate sodium (COLACE) 100 MG capsule Take 100 mg by mouth 2 times daily. famotidine (PEPCID) 20 MG tablet Take 20 mg by mouth 2 times daily Fexofenadine HCl (MUCINEX ALLERGY PO) Take 400 mg by mouth as needed HYDROcodone-acetaminophen (NORCO) 5-325 MG tablet Take 1 (one) tablet by mouth every 6 hours as needed for Pain 12 tablet 0 lacosamide (VIMPAT) 200 MG tablet Take 100 [...] Reasons: Stuffy Nose SALINE NASAL SPRAY NA Edwards into the nose as needed VITAMIN D PO Take 50,000 Units by mouth every 14 days Take one tab weekly zonisamide (ZONEGRAN) 100 MG capsule Take 100 mg by mouth 2 times daily Procedures Procedures EKG: Sinus tachycardia, rate 106. No acute ST or T-wave changes. Impression: Otherwise normal EKG. Lab Interpretation Oxygen Saturation Interpretation Hospital Encounter on 01/11/24 CBC W AUTO DIFFERENTIAL Result Value Ref Range WBC 7.3 4.0 - 10.7 x10E9/L RBC Count 4.41 4.30 - 5.80 x10E12/L Hemoglobin 13.7 13.3 - 17.5 g/dL Hematocrit 40.6 38.7 - 51.1 % MCV 92.1 80.0 - 98.0 fL MCH 31.1 26.7 - 33.6 pg MCHC 33.7 31.7 - 36.3 g/dL RDW-CV 13.2 11.3 - 14.8 % Platelet Count 184 150 - 420 x10E9/L MPV 9.2 7.8 - 11.4 fL Neutrophil % 71.8 41.0 - 74.0 % Lymphocyte % 13.2 (L) 17.0 - 47.0 % Monocyte % 11.0 3.0 - 11.0 % Eosinophil % 3.3 0.0 - 7.0 % Basophil % 0.6 0.0 - 1.6 % Immature Granulocytes % 0.1 0.0 - 1.0 % Neutrophil Absolute 5.22 1.60 - 7.50 x10E9/L Lymphocyte Absolute 0.96 (L) 1.00 - 4.40 x10E9/L Monocyte Absolute 0.80 0.15 - 1.00 x10E9/L Eosinophil Absolute 0.24 0.00 - 0.60 x10E9/L Basophil Absolute 0.04 0.00 - 0.13 x10E9/L COMPREHENSIVE METABOLIC PANEL Result Value Ref Range Glucose 112 (H) 70 - 99 mg/dL Sodium 140 136 - 145 mmol/L Potassium 4.7 3.5 - 5.1 mmol/L Chloride 108 (H) 98 - 107 mmol/L CO2 23 22 - 29 mmol/L Calcium 9.7 8.4 - 10.4 mg/dL Anion Gap 9 6 - 16 mmol/L BUN 20 (H) 5.3 - 18.7 mg/dL Creatinine 0.99 0.72 - 1.25 mg/dL Alkaline Phosphatase 167 (H) 40 - 150 U/L ALT 82 (H) 0 - 55 U/L AST 36 (H) 5 - 34 U/L Protein Total 8.1 6.4 - 8.3 gm/dL Albumin 4.3 3.4 - 5.0 gm/dL Bilirubin Total 0.5 0.2 - 1.2 mg/dL eGFR by CKD-EPI >90 >=90 mL/min/1.73 m2 CK BLOOD Result Value Ref Range CK 19 (L) 30 - 200 U/L MAGNESIUM BLOOD Result Value Ref Range Magnesium 1.7 1.6 - 2.6 mg/dL LACTIC ACID BLOOD REFLEX TO REPEAT Result Value Ref Range Lactic Acid 2.3 (H) <=2.0 mmol/L XR CHEST 1VW PORTABLE Final Result PROCEDURE: XR CHEST 1VW PORTABLE DATE/TIME OF EXAM: 01/11/2024 1:48 PM INDICATION: R56.9: Unspecified convulsions (HCC). COMPARISON: None. FINDINGS: The cardiomediastinal silhouette is within normal limits. A neurostimulator device projects over the left chest wall. The lungs are clear. No pleural effusion or pneumothorax. No acute osseous abnormality. IMPRESSION: No acute cardiopulmonary abnormality. > Interpreting Provider: Destini Ontiveros MD on 01/11/2024 1:56 PM Progress Notes 2:38 PM Patient is significantly improved. Patient was just admitted for similar complaints. Reportedly he was seen by a neurologist. He also has a neurologist appointment on Saturday. Patient stable for outpatient follow-up. Patient advised to follow up with his primary care physician in 1-3 days and his neurologist on his already scheduled appointment on Saturday. Patient advised to return to the emergencydepartment if worse in any way. ED Course Clinical Impressions as of 01/11/24 1512 Seizure (HCC) Breakthrough seizure (HCC) Medical Decision Making Amount and/or Complexity of Data Reviewed Labs: ordered. Radiology: ordered. Risk Prescription drug management. The patient presents with a breakthrough seizure without signs of WELDER SETTER RESISTANCE MACHINE bleed, stroke, infection, or other serious etiology. The patient is neurologically intact. Given the extremely low risk of these diagnoses further testing and evaluation for these possibilities does not appear to be indicated at this time. The patient has been instructed to return if the symptoms worsen or change in any way. Orders Placed This Encounter XR CHEST 1VW PORTABLE CBC W AUTO DIFFERENTIAL COMPREHENSIVE METABOLIC PANEL CK BLOOD MAGNESIUM BLOOD LACTIC ACID BLOOD REFLEX TO REPEAT URINE DRUG SCREEN IMMUNOASSAY URINALYSIS REFLEX TO MICROSCOPIC NO CULTURE LACTIC ACID BLOOD REFLEX TO REPEAT ZONISAMIDE LEVEL LAMOTRIGINE LEVEL LACOSAMIDE EKG 12-LEAD LORazepam (Ativan) injection 2 mg LORazepam (Ativan) injection ADS Med 0.9% NaCl IV bolus ketorolac (Toradol) injection 30 mg diazePAM (Valtoco 10 MG Dose) 10 MG/0.1ML nasal spray Follow-up Information Gulshan Mena MD. Schedule an appointment as soon as possible for a visit in 1 day. Specialty: Family Medicine Contact information: [address] [place] [id number] R TREATMENT PLANT REPAIRER * Trixie Haro RN - 01/11/2024 11:45 AM CST seizure pads placed to bilateral side rails. R TREATMENT PLANT REPAIRER * Trixie Haro RN - 01/11/2024 11:39 AM CST Bed: 25 Expected date: Expected time: Means of arrival: Ambulance Comments: [id number] R TREATMENT PLANT REPAIRER documented in this encounter Plan of Treatment Scheduled Orders Name Type Priority Associated Diagnoses Orde r Schedule URINE DRUG SCREEN IMMUNOASSAY Lab STAT ONCE for 1 Occur rences starting 01/11/2024 until 01/11/2024 URINALYSIS REFLEX TO MICROSCOPIC NO CULTURE Lab STAT ONCE for 1 Occurrences starting 01/11/2024 until 01/11/2024 LACTIC ACID BLOOD REFLEX TO REPEAT Lab Timed STAT Once for 1 Occur rences starting 01/11/2024 until 01/11/2024 ZONISAMIDE LEVEL Lab STAT ONCE for 1 Occurrences starting 01/11/2024 until 01/11/2024 LAMOTRIGINE LEVEL Lab STAT ONCE fo r 1 Occurrences starting 01/11/2024 until 01/11/2024 LACOSAMIDE Lab STAT ONCE for 1 Occ urrences starting 01/11/2024 until 01/11/2024 documented as of this encounter Procedures Procedure Name Priority Date/Time Associated Diagnosis Comments CARDIAC EKG ORDER 01/13/2024 3:4 9 PM WATER TREATMENT PLANT REPAIRER XR CHEST 1VW PORTABLE STAT 01/11/2024 1:48 PM WATER TREATMENT PLANT REPAIRER Seizure (HCC) LACTIC ACID BLOOD REFLEX TO REPEAT STAT 01/11/2024 12:29 PM WATER TREATMENT PLANT REPAIRER CBC W AUTO DIFFERENTIAL STAT 01/11/2024 12:29 PM WATER TREATMENT PLANT REPAIRER COMPREHENSIVE METABOLIC PANEL STAT 01/11/2024 12:29 PM WATER TREATMENT PLANT REPAIRER MAGNESIUM BLOOD STAT 01/11/2024 12:29 PM WATER TREATMENT PLANT REPAIRER CK BLOOD STAT 01/11/2024 12:29 PM WATER TREATMENT PLANT REPAIRER EKG 12-LEAD STAT 01/11/2024 12:19 PM WATER TREATMENT PLANT REPAIRER Seizure (HCC) documented in this encounter Results * CARDIAC EKG ORDER (01/13/2024 3:49 PM WATER TREATMENT PLANT REPAIRER) Narrative 01/13/2024 3:49 PM WATER TREATMENT PLANT REPAIRER Ordered by an unspecified provider. Scanned Document CARDIAC SERVICES ORD ERABLES * XR CHEST 1VW PORTABLE (01/11/2024 1:48 PM WATER TREATMENT PLANT REPAIRER) Anatomical Region Laterality Modality Chest Computed Radiogr aphy 01/11/2024 1:55 PM WATER TREATMENT PLANT REPAIRER Impressions 01/11/2024 1:56 PM WATER TREATMENT PLANT REPAIRER IMPRESSION: No acute cardiopulmonary abnormality. > Interpreting Provider: Destini Ontiveros MD on 01/11/2024 1:56 PM Narrative 01/11/2024 1:56 PM WATER TREATMENT PLANT REPAIRER PROCEDURE: ??XR CHEST 1VW PORTABLE DATE/TIME OF [...] BLOOD REFLEX TO REPEAT (01/11/2024 12:29 PM WATER TREATMENT PLANT REPAIRER) Lactic Acid 2.3(H) <=2.0 mmol/L 01/11/2024 12:55 PM WATER TREATMENT PLANT REPAIRER [facility] Blood BLOOD SPECIMEN / Unknown Venipuncture / Unknown 01/11/2024 12:29 PM WATER TREATMENT PLANT REPAIRER 01/11/2024 12:30 PM WATER TREATMENT PLANT REPAIRER Leonor Alvares PA-C LAB - CHEMISTRY OR DERABLES Performing Organization Address [facility] Co de Phone Number [facility] [address] [place] [phone] * MAGNESIUM BLOOD (01/11/2024 12:29 PM WATER TREATMENT PLANT REPAIRER) Magnesium 1.7 1.6 - 2.6 mg/dL 01/11/2024 12:59 PM WATER TREATMENT PLANT REPAIRER [facility] Blood BLOOD SPECIMEN / Unknown Venipuncture / Unknown 01/11/2024 12:29 PM WATER TREATMENT PLANT REPAIRER 01/11/2024 12:30 PM WATER TREATMENT PLANT REPAIRER Leonor Alvares PA-C LAB - CHEMISTRY OR DERABLES Performing Organization Address [facility] de Phone Number [facility] [address] [place] [phone] * (ABNORMAL) CK BLOOD (01/11/2024 12:29 PM WATER TREATMENT PLANT REPAIRER) CK 19(L) 30 - 200 U/L 01/11/2024 12:59 PM WATER TREATMENT PLANT REPAIRER [facility] Blood BLOOD SPECIMEN / Unknown Venipuncture / Unknown 01/11/2024 12:29 PM WATER TREATMENT PLANT REPAIRER 01/11/2024 12:30 PM WATER TREATMENT PLANT REPAIRER Leonor Alvares PA-C LAB - CHEMISTRY OR DERABLES Performing Organization Address [facility] de Phone Number [facility] [address] [place] [phone] * (ABNORMAL) COMPREHENSIVE METABOLIC PANEL (01/11/2024 12:29 PM WATER TREATMENT PLANT REPAIRER) Glucose 112(H) 70 - 99 mg/dL 01/11/2024 12:59 PM WATER TREATMENT PLANT REPAIRER -[facility] Sodium 140 136 - 145 mmol/L 01/11/2024 12:59 PM WATER TREATMENT PLANT REPAIRER -[facility] Potassium 4.7 3.5 - 5.1 mmol/L 01/11/2024 12:59 PM WATER TREATMENT PLANT REPAIRER -[facility] Chloride 108(H) 98 - 107 mmol/L 01/11/2024 12:59 PM [facility] CO2 23 22 - 29 mmol/L 01/11/2024 12:59 PM [facility] Calcium 9.7 8.4 - 10.4 mg/dL 01/11/2024 12:59 PM [facility] Anion Gap 9 6 - 16 mmol/L 01/11/2024 12:59 PM [facility] BUN 20(H) 5.3 - 18.7 mg/dL 01/11/2024 12:59 PM [facility] Creatinine 0.99 0.72 - 1.25 mg/dL 01/11/2024 12:59 PM [facility] Alkaline Phosphatase 167(H) 40 - 150 U/L 01/11/2024 12:59 PM [facility] ALT 82(H) 0 - 55 U/L 01/11/2024 12:59 PM [facility] AST 36(H) 5 - 34 U/L 01/11/2024 12:59 PM [facility] Protein Total 8.1 6.4 - 8.3 gm/dL 01/11/2024 12:59 PM [facility] Albumin 4.3 3.4 - 5.0 gm/dL 01/11/2024 12:59 PM [facility] Bilirubin Total 0.5 0.2 - 1.2 mg/dL 01/11/2024 12:59 PM [facility] eGFR by CKD-EPI >90 >=90 mL/min/1.7 3 m2 01/11/2024 12:59 PM [facility] Blood BLOOD SPECIMEN / Unknown Venipuncture / Unknown 01/11/2024 12:29 PM WATER TREATMENT PLANT REPAIRER 01/11/2024 12:30 PM [facility] Leonor Alvares PA-C LAB - CHEMISTRY OR DERABLES [facility] [address] [place] [address] * (ABNORMAL) CBC W AUTO DIFFERENTIAL (01/11/2024 12:29 PM [facility]) [facility] WBC 7.3 4.0 - 10.7 x10E9/L 01/11/2024 12:36 PM WATER TREATMENT PLANT REPAIRER [facility] RBC Count 4.41 4.30 - 5.80 x10E12/L 01/11/2024 12:36 PM WATER TREATMENT PLANT REPAIRER [facility] Hemoglobin 13.7 13.3 - 17.5 g/dL 01/11/2024 12:36 PM WATER TREATMENT PLANT REPAIRER [facility] Hematocrit 40.6 38.7 - 51.1 % 01/11/2024 12:36 PM WATER TREATMENT PLANT REPAIRER [facility] MCV 92.1 80.0 - 98.0 fL 01/11/2024 12:36 PM WATER TREATMENT PLANT REPAIRER [facility] MCH 31.1 26.7 - 33.6 pg 01/11/2024 12:36 PM WATER TREATMENT PLANT REPAIRER [facility] MCHC 33.7 31.7 - 36.3 g/dL 01/11/2024 12:36 PM WATER TREATMENT PLANT REPAIRER [facility] RDW-CV 13.2 11.3 - 14.8 % 01/11/2024 12:36 PM WATER TREATMENT PLANT REPAIRER [facility] Platelet Count 184 150 - 420 x10E9/L 01/11/2024 12:36 PM WATER TREATMENT PLANT REPAIRER [facility] MPV 9.2 7.8 - 11.4 fL 01/11/2024 12:36 PM WATER TREATMENT PLANT REPAIRER [facility] Neutrophil % 71.8 41.0 - 74.0 % 01/11/2024 12:36 PM WATER TREATMENT PLANT REPAIRER [facility] Lymphocyte % 13.2(L) 17.0 - 47.0 % 01/11/2024 12:36 PM WATER TREATMENT PLANT REPAIRER [facility] Monocyte % 11.0 3.0 - 11.0 % 01/11/2024 12:36 PM WATER TREATMENT PLANT REPAIRER [facility] Eosinophil % 3.3 0.0 - 7.0 % 01/11/2024 12:36 PM WATER TREATMENT PLANT REPAIRER [facility] Basophil % 0.6 0.0 - 1.6 % 01/11/2024 12:36 PM WATER TREATMENT PLANT REPAIRER [facility] Immature Granulocytes % 0.1 0.0 - 1.0 % 01/11/2024 12:36 PM WATER TREATMENT PLANT REPAIRER [facility] Neutrophil Absolute 5.22 1.60 - 7.50 x10E9/L 01/11/2024 12:36 PM WATER TREATMENT PLANT REPAIRER -[facility] Lymphocyte Absolute 0.96(L) 1.00 - 4.40 x10E9/L 01/11/2024 12:36 PM WATER TREATMENT PLANT REPAIRER -[facility] Monocyte Absolute 0.80 0.15 - 1.00 x10E9/L 01/11/2024 12:36 PM WATER TREATMENT PLANT REPAIRER -[facility] Eosinophil Absolute 0.24 0.00 - 0.60 x10E9/L 01/11/2024 12:36 PM WATER TREATMENT PLANT REPAIRER -[facility] Basophil Absolute 0.04 0.00 - 0.13 x10E9/L 01/11/2024 12:36 PM WATER TREATMENT PLANT REPAIRER -[facility] Blood BLOOD SPECIMEN / Unknown Venipuncture / Unknown 01/11/2024 12:29 PM WATER TREATMENT PLANT REPAIRER 01/11/2024 12:30 PM WATER TREATMENT PLANT REPAIRER Leonor Alvares PA-C LAB - HEMATOLOGY O RDERABLES -[facility] [address] [place] [address] * EKG 12-LEAD (01/11/2024 12:19 PM WATER TREATMENT PLANT REPAIRER) Ventricular Rate 106 BPM [facility] Atrial Rate 106 BPM [facility] P-R Interval 154 ms [facility] QRS Duration ms 80 ms [facility] Q-T Interval ms 310 ms [facility] QTC Calculation (Bezet) 411 ms [facility] Calculated P [place] 31 degrees [facility] Calculated R [place] 45 degrees [facility] Calculated T [place] 39 degrees [facility] Interpretation EKG Sinus tachycardia Otherwise normal ECG No previous ECGs available Confirmed by FLORESITA SAM MD ([id number]) on 01/13/2024 1:57:39 PM [facility] 01/11/2024 12:1 9 PM WATER TREATMENT PLANT REPAIRER 01/13/2024 1:57 PM WATER TREATMENT PLANT REPAIRER Leonor B Giorgio PA-C ECG ORDERABLES [facility] documented in this encounter Visit Diagnoses Diagnosis Breakthrough seizure (HCC)- Primary Unspecified epilepsy with intractable epilepsy Seizure (HCC) Other convulsions documented in this encounter Administered Medications Inactive Administered Medications - up to 3 most recent administrations Medication Order MAR Action Action Date Dose Rate Site 0.9% NaCl IV bolus 1,000 mL, at 1,935.48 mL/hr, Administer over 31 Minutes, NOW, 1 dose, On 01/11/24 at 1230 $ New Bag/Syringe 01/11/2024 1:07 PM WATER TREATMENT PLANT REPAIRER 1,000 mL 1935.48 mL/hr ketorolac (Toradol) injection 30 mg 30 mg, Intravenous, NOW, 1 dose, On 01/11/24 at 1315, Patient preference for lesser PRN pain meds may be honored when the patient requests a less strong medication, a lower dose, or a less intrusive route of administration when the lesser drug, dose and route have been ordered for the patient. This patient request must be documented in the MAR. If both oral and IV options are ordered for the same pain severity, give oral first unless patient cannot tolerate oral intake $ Given 01/11/2024 1:13 PM WATER TREATMENT PLANT REPAIRER 30 mg documented in this encounter Active and Recently Administered Medications Times are shown in WATER TREATMENT PLANT REPAIRER. Scheduled Medication Order 01/09/2024 01/10/2024 01/11/2024 0.9% NaCl IV bolus (COMPLETED) 1,000 mL, at 1,935.48 mL/hr, Administer over 31 Minutes, NOW, 1 dose, On 01/11/24 at 1230 1307 ($ New Bag/Syri nge - Provider: Trixie Haro, MAURO)1533 (Stopped - Provider: Trixie Haro, RN) ketorolac (Toradol) injection 30 mg (COMPLETED) 30 mg, Intravenous, NOW, 1 dose, On 01/11/24 at 1315, Patient preference for lesser PRN pain meds may be honored when the patient requests a less strong medication, a lower dose, or a less intrusive route of administration when the lesser drug, dose and route have been ordered for the patient. This patient request must be documented in the MAR. If both oral and IV options are ordered for the same pain severity, give oral first unless patient cannot tolerate oral intake 1313 ($ Given - Prov ider: Trixie Haro RN) LORazepam (Ativan) injection 2 mg 2 mg, Intravenous, ONCE, 1 dose, On 01/11/24 at 1230 1534 (Not Administer ed - Provider: Trixie Haro RN - Reason: Patient Condition) documented in this encounter Care Teams Test Kitchen Home Economist Relationship Specialty Start Date End Date Gulshan Mena MD [address] [place] [address] PCP - General Family Medicine 12/19/09 documented as of this encounter
--- OUTSIDE RECORDS SUMMARY | 2024-02-12 05:05 | XMS_ITS | Encounter Summary ---
Author Organization [facility], [facility] Address [address] [place] [address] Care Team Providers Care Automotive Service Cashier Name Role Phone Gulshan Mena MD Primary Care Provider [phone] Reason for Visit * Auth/Cert Specialty Diagnoses / Procedures Referred By Contac t Referred To Contact Diagnoses Battery end of life of vagus nerve stimulator end of VNS battery life Procedures REPLACEMENT CRANIAL NEUROSTIMULATOR GENERATOR/BATTERY Referral ID Status Reason Start Date Expiration Date Visits Re quested Visits Authorized [id number] 1 1 Encounter Details Date Type Department Care Team (Late st Contact Info) Description 05/25/2020 9:15 AM CDT - 05/25/2020 10:50 AM CDT Surgery [facility] [address] [place] [id number] Michi Longo MD [address] [place] [address] Vagus nerve stimulator generator replacement Surgery Details Date/Time Status Location OR Service Patient Class Case Class Case Type Trauma Case? 05/25/2020 9:15 AM Posted [facility] OR OR 14 Neurosurgery Surgery Day Care Panel 1 Procedure LRB Anes Op Region Wound Class Comments Vagus nerve stimulator gener ator replacement Left General Clean Surgeon Surgeon Role Service Panel Michi Longo MD Primary Neurosurgery 1 Estefany Gusman MD Resident - Assisting Neurosurgery 1 Special Needs [place] notified 05/20 documented in this encounter Social History Tobacco [...] COVID-19? 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 documented as of this encounter Last Filed Vital Signs Vital Sign Reading Time Taken Comments Blood Pressure 143/90 05/25/2020 10:50 AM CDT Pulse 88 05/25/2020 10:50 AM CDT Temperature 36.4 ??C (97.6 ??F) 05/25/2020 10:42 AM C DT Respiratory Rate 19 05/25/2020 10:50 AM CDT Oxygen Saturation 100% 05/25/2020 10:50 AM CDT Inhaled Oxygen Concentration - - Weight 83.9 kg (185 lb) 05/25/2020 8:10 AM CDT Height 170.2 cm (5' 7 ) 05/25/2020 8:10 AM CDT Body Mass Index 28.98 05/25/2020 8:10 AM CDT documented in this encounter Medications [...] 10 MG DOSE) 10 MG/0.1ML nasal spray [place] 10 mg into the nose 03/18/2020 docusate [...] Reasons: Stuffy Nose SALINE NASAL SPRAY NA [place] into the nose as needed VITAMIN D PO Take 50,000 Units by mouth every 14 days Take one tab weekly zonisamide (ZONEGRAN) 100 MG capsule Take 100 mg by mouth 2 times daily documented as of this encounter H&P Notes * Michi Longo MD - 05/25/2020 8:58 AM CDT Patient with epilepsy responsive to vagal nerve stimulator now with left chest generator at end of service. For revision. Risks and complications of the procedure, and alternatives thereunto, discussed at length, and all questions answered. Informed consent obtained. * Estefany Gusman MD - 05/25/2020 7:03 AM CDT Images from the original note were not included. Neurosurgery History and Physical Note Name: Curt Ryder : 1985 Date of Admission:05/25/2020 No changes to H&P signed by attending below. In Brief, Curt Ryder is here for VNS generator replacement. Denies recent fevers, chills, chest pain, shortness of breath. Allergies: Allergies Allergen Reactions Penicillins Urticaria Amoxicillin Urticaria Tegretol [Carbamazepine] Angioedema meds given no artificial airway needed Dilantin [Phenytoin Sodium] Urticaria EXAM: BP 121/80 Pulse 59 Temp 97.6 ??F (36.4 ??C) (Temporal) Resp 8 Ht 1.702 m (5' 7 ) Wt 83.9 kg (185 lb) SpO2 88% BMI 28.98 kg/m2 Gen:NAD, pleasant Resp: unlabored, no audible wheeze CV: RRR Neuro: The patient is awake, alert, and non verbal. Pupils are equal and reactive to light. Extraoccular movements intact. Face is symmetric. Follows simple commands, moves all extremities symmetrically. Plan: - To OR for L chest VNS generator revision - The risks and benefits of the procedure were discussed in detail, including: pain, infection, bleeding, CSF leak, damage to surrounding tissues including nerves and blood vessels resulting in paralysis,or possible need for future procedures, . - The patient expressed understanding and willingness to proceed. 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 The patient lives in a jail care facil ity is accompanied today by [...] having been on anyblood thinners. Past Medical History Past Medical History: Diagnosis Date ADHD (attention deficit hyperactivity disorder) Aggression - adjustment disorder Autism Constipation GERD (gastroesophageal reflux disease) MR (mental retardation) severe Seizure disorder last one 02/13/2014 Static encephalopathy Past Surgical History Past Surgical History: Procedure Laterality Date DEEP BRAIN NEURO STIMULATOR Left 05/16/2018 Left; VAGAL NERVE NEUROSTIMULATOR GENERATOR REPLACEMENT EGD 12/20/09 Marcu--gastritis OTHER SURGERY 10/2013 V and S inplanted Medications Current Outpatient Medications Medication bisacodyl (DULCOLAX) 10 MG suppository bisacodyl EC (BISACODYL EC) 5 MG tablet busPIRone (BUSPAR) 10 MG tablet cloBAZam (ONFI) 10 MG tablet cloNIDine (CATAPRES) 0.1 MG tablet diazePAM (VALTOCO 10 MG DOSE) 10 MG/0.1ML nasal spray docusate sodium (COLACE) 100 MG capsule Fexofenadine HCl (MUCINEX ALLERGY PO) lacosamide (VIMPAT) 200 MG tablet lamoTRIgine (LAMICTAL) 150 MG tablet loperamide (IMODIUM) 2 MG capsule loratadine (CLARITIN) 10 MG tablet Magnesium Hydroxide (MILK OF MAGNESIA PO) multivitamin daily (THERAGRAN) tablet Nutritional Supplements (ENSURE NUTRITION SHAKE PO) oxyCODONE-acetaminophen (PERCOCET) 5-325 MG tablet Polyethylene Glycol 3350 (MIRALAX PO) propranolol (INDERAL) 80 MG tablet pseudoephedrine (SUDAFED) 30 MG tablet raNITIdine (ZANTAC) 150 MG tablet SALINE NASAL SPRAY NA VITAMIN D PO zonisamide (ZONEGRAN) 100 MG capsule No current facility-administered medications for this visit. Allergies Allergen Reactions Amoxicillin Dilantin [Phenytoin Sodium] Tegretol [Carbamazepine] Social History Tobacco Use Smoking status: Never Smoker Smokeless tobacco: Never Used Substance Use Topics Alcohol use: No Family History No family history on file. REVIEW OF [...] neuroradiological imaging for review. VNS INTERROGATION: Assessment/Plan: Curt Ryder is a 35 year old male with a history of Weldon-Gastaut syndrome, autism spectum disorded, developmental delay, and medically-refractory generalized non-convulsive epilepsy status post vagal nerve stimulator (VNS) placement in 2013, and VNS generator revision on 05/16/18, who is presenting to clinic today for his VNS battery nearing the end of life. 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 All questions answered Kristin Kat APRN-TAPAN 04/21/2020 8:59 AM documented in this encounter OR Notes * Brief Op Note - Estefany Gusman MD - 05/25/2020 9:59 AM CDT Brief Op Note Procedure: Vagus nerve stimulator generator replacement Patient Name: Curt Ryder Date of Service: 05/25/2020 Pre-Op Diagnosis: end of VNS battery life Post-Op Diagnosis: same Surgeon(s) and Role: * Michi Lonog MD - Primary * Estefany Gusman MD - Resident - Assisting Director Of Slot Operations(s): Ethan Dougherty MS3 Anesthesia Type: general ETT Complications: none Findings: end of life geenrator replaced, good impedances EBL: minimal blood loss Urine Output : n/a IV Fluid Intake: per anesthesia Drains: * No LDAs found * Specimen(s): Order Name Source Comment Collection Info Order Time PATHOLOGY TISSUE Foreign Object Pre-op diagnosis: end of VNS battery life Collected By: Michi Longo MD 05/25/2020 10:15 AM Release to patient Immediate Implant Name Type Inv. Item Serial No. Track Moving Machine Operator Lot No. LRB No. Used Action SYS NS VAGUS NRV EPLP - [id number] Gntr Nrstm Vagus Nrv Eplp [id number] LivaNova Left 1 Explanted GNTR NRSTM VAGUS NRV EPLP - [id number] Gntr Nrstm Vagus Nrv Eplp [id number] LivaNova Left 1 Implanted Estefany Gusman MD Associated attestation - Michi Longo MD - 05/25/2020 12:52 PM CDT Note from resident reviewed, patient seen and examined, all images reviewed, and situation discussed with patient and janitor caretaker present. At NE baseline; wound benign; rady for discharge. * Operative - Michi Longo MD - 05/25/2020 9:00 AM CDT Images from the original note were not included. NEUROSURGERY OPERATIVE NOTE NAME: CURT RYDER : 1985 AGE: 35 PROC DATE: 05/25/2020 SEX: M SURGEON: Michi Longo MD TIME: 09:00 a.m. OPERATION PERFORMED: Revision of left vagal nerve stimulator generator with electronic analysis andprogramming of implanted neurostimulator pulse generator. SURGEON: Michi Longo M.D. MULTICULTURAL SERVICES LIBRARIAN: Dr. Estefany Gusman. PREOPERATIVE DIAGNOSIS: Epilepsy, responsive to vagal nerve stimulation with generator at end of service. POSTOPERATIVE DIAGNOSIS: Epilepsy, responsive to vagal nerve stimulation with generator at end of service. SPONGE COUNT: Correct. ESTIMATED BLOOD LOSS: 5 mL INDICATIONS FOR PROCEDURE: This patient has had a partial response with implantation of a vagal nerve stimulator for his epilepsy felt intractable to medical management. The generator is now at end of service. FINDINGS: The existing Novafora, model 1000, serial #[id number] was removed and replaced with a Novafora model 1000, serial #[id number] in the left chest wall. The impedance of the system was 3700 ohms asgiven in the screen capture of the programming device taken at the end of the procedure and reproduced below: Heart rate sensitivity was set to 3, heart rate threshold was set to 40%. As the system had not been activated since December, the system was left in the off position. Therefore, the programming for normal settings were set to an output of 0 milliamps, a frequency of 30 Hz, a pulse width of 500 microseconds and on time of 30 seconds and off time of 1.1 minutes. Magnet mode was set to an output of0 milliamps, a pulse width of 500 microseconds and on time of 60 seconds. AutoStim settings were set to an output of 0 milliamps, a pulse width of 500 microseconds and on time of 30 seconds as per this image: The patient was brought to the recovery room in good condition. DESCRIPTION OF PROCEDURE: The patient was brought to the operating room and after suitable timeout for identification, placed on the operating room table under general endotracheal anesthesia. The existing left chest scar was prepped and draped in the usual fashion as in this image: The incision was infiltrated with 1% lidocaine with epinephrine. Using the PhotonBlade, the incision was taken down to the capsule surrounding the generator. The capsule was opened. The suture holding the generator to the pectoralis muscle was cut. The generator was carefully developed out of the wo und. Using the torque wrench, the electrode was freed from the generator, cleaned and placed into the new generator. The generator was placed into the pocket. The system was queried and programmed above. The wound was copiously irrigated with bacitracin irrigation. Vancomycin powder was placed in the wound. The generator sutured to the pectoralis muscle fascia with 2-0 silk. The wound was closed in layers using 3-0 Vicryl in the subcutaneous tissue, 3-0 Monocryl barbed in the subcuticular technique and an advanced Steri-Drape dressing on the skin. The patient was brought to recovery room in good condition. I, Dr. Michi Longo, do hereby certify that I was present for the honeycutt aspects of the procedure including identifying the patient, opening the incision, removing the old generator, attaching the new generator, programming the system, and closing the case. MD VIKTORIYA Basurto Professor of Neurosurgery office chair assembler, Department of Neurosurgery [id number] Doc ID: [id number] Voice Job ID: [id number] documented in this encounter Plan of Treatment Not on file documented as of this encounter Procedures Procedure Name Priority Date/Time Associated Diagnosis Comments LAB RESULTS ORDER 05/27/2020 2:4 1 PM CDT XR CHEST 1VW PORTABLE Routine 05/25/2020 11:19 AM CDT Status post VNS (vagus nerve stimulator) placement PATHOLOGY TISSUE Routine 05/25/2020 10:1 2 AM CDT Battery end of life of vagus nerve stimulator OK INSRT/REPL CRANIAL NEUROSTIM GEN/RECV; W/1 ARRAY 05/25/2020 9:59 AM CDT Battery end of life of vagus nerve stimulator Special Needs SUPINE, [place]--[place] notified 05/20 documented in this encounter Results * LAB RESULTS ORDER (05/27/2020 2:41 PM CDT) Narrative 05/27/2020 2:41 PM CDT Ordered by an unspecified provider. Scanned Document LAB - THERAPEUTIC DR DEVI MONITORING ORDERABLES * XR CHEST 1VW PORTABLE (05/25/2020 11:19 AM CDT) Anatomical Region Laterality Modality Chest Radiographic Vanessa ging 05/25/2020 11:1 7 AM CDT Impressions 05/25/2020 1:12 PM CDT FINDINGS/IMPRESSION: Lines and tubes: *There is a vagal nerve stimulator superimposing the left lateral chest wall with leads extending into the left neck, terminating within the left neck soft tissues. There are low bilateral lung volumes with associated bronchovascular crowding. There is no focal consolidation, pleural effusion, or pneumothorax. The cardiomediastinal silhouette is normal. The visible bony thorax is intact. Dictated by Rajat Diehl MD (vice president of talent acquisition). This report was approved ??by Rajat Diehl ?? on 05/25/2020 11:20 AM . I, . Dr. KATARINA BALDERRAMA MD have personally reviewed and interpreted this examination/study. This report was electronically signed by Dr. KATARINA BALDERRAMA MD ??on 05/25/2020 1:12 PM . Narrative 05/25/2020 1:12 PM CDT EXAMINATION: XR CHEST 1VW PORTABLE HISTORY: Z96.89: Status post VNS (vagus nerve stimulator) placement COMPARISON: Chest x-ray dated 04/21/2020. Procedure Note Katarina Balderrama MD - 05/25/2020 EXAMINATION: XR CHEST 1VW PORTABLE HISTORY: Z96.89: Status post VNS (vagus nerve stimulator) placement COMPARISON: Chest x-ray dated 04/21/2020. FINDINGS/IMPRESSION: Lines and tubes: *There is a vagal nerve stimulator superimposing the left lateral chest wall with leads extending into the left neck, terminating within theleft neck soft tissues. There are low bilateral lung volumes with associated bronchovascular crowding. There is no focal consolidation, pleural effusion, or pneumothorax. The cardiomediastinal silhouette is normal. The visiblebony thorax is intact. Dictated by Rajat Diehl MD (vice president of talent acquisition). This report was approved by Rajat Diehl on 05/25/2020 11:20 AM . I, Dr. Dr. KATARINA BALDERRAMA MD have personally reviewed and interpretedthis examination/study. This report was electronically signed by Dr. KATARINA BALDERRAMA MD on 05/25/2020 1:12 PM . Michi Longo MD DIAGNOSTIC IMAGING ORDERABLES * PATHOLOGY TISSUE (05/25/2020 10:12 AM CDT) Case Report Surgical Pathology Report ? Case: [id number] ? Authorizing Provider: ??Michi Longo MD ? Collected: ? 05/25/2020 10:12 AM ? Ordering Location: ? [facility] ?Received: ?05/25/2020 11:36 AM ? Pathologist: ? Teena Samayoa MD ? Specimen: ?Foreign Object, Generator for end of life ? 06/06/2020 5:33 PM CDT [facility] Final Diagnosis Foreign object, vagus nerve stimulator generator, replacement: - Foreign object, consistent with medical safety director (gross examination only) 06/06/2020 5:33 PM CDT [facility] Clinical History The patient is a 35-year-old man who presents with battery end of life of the vagus nerve stimulator. 06/06/2020 5:33 PM [facility] Gross Description The requisition and specimen(s) are identified with the patient's name, Curt Ryder. Received fresh without fixative, specimen A is a silver metallic foreign object measuring 4.5 x 3.2 x 0.7 cm. There is a plastic component at one end with a wire connection. This writing on one face of the specimen as follows: VNSTherapy , SENTIVA , MODEL 1000 , SN: [id number] , [employer] There is no attached soft tissue. The specimen is submitted for gross examination only. 06/06/2020 5:33 PM T [facility] Disclaimer The performance characteristics of all immunohistochemical and indirect immunofluorescence stains (if any) cited in this report were determined by the Histopathology Laboratory of [facility]. Some of these tests were developed [...] the attending (teaching) pathologist. 06/06/2020 5:33 PM T [facility] Embedded Images 06/06/2020 5:33 PM [facility] Removal MISCELLANEOUS SAMPLES / Unknown 05/25/2020 10:12 AM CDT 05/25/2020 11:36 AM CDT Comment:Pre-op diagnosis: end of VNS battery life Michi Longo MD LAB - PATHOLOGY/CYT OLOGY ORDERABLES [facility] [address] [phone] documented in this encounter Visit Diagnoses Diagnosis Status post VNS (vagus nerve stimulator) placement- Primary Other postprocedural status Battery end of life of vagus nerve stimulator Battery end of life of vagus nerve stimulator Battery end of life of vagus nerve stimulator documented in this encounter Admitting Diagnoses Diagnosis Battery end of life of vagus nerve stimulator documented in this encounter Administered Medications Inactive Administered Medications - up to 3 most recent administrations Medication Order MAR Action Action Date Dose Rate Site lactated ringers infusion at 20 mL/hr, Intravenous, PRE-OP CONTINUOUS, Starting on Sat05/25/20 at 0800, Until Sat05/25/20 at 1353, Pre-op Rate Change 05/25/2020 10:42 AM CDT 80 0 mL/hr $ New Bag/Syringe 05/25/2020 8:55 AM CDT 20 mL/ hr lidocaine 1% (Xylocaine-MPF) - EPINEPHrine 1:100,000 injection PRN, Starting on Sat05/25/20 at 1008, Until Sat05/25/20 at 1047, Intra-op $ Given 05/25/2020 10:08 AM CDT 4 mL vancomycin (Vancocin) injection PRN, Starting on Sat05/25/20 at 1008, Until Sat05/25/20 at 1047, Indication for anti-infective therapy: Surgical prophylaxis, Intra-op $ Given 05/25/2020 10:08 AM CDT 1,000 mg documented in this encounter Active and Recently Administered Medications Times are shown in CDT. Scheduled Medication Order 05/23/2020 05/24/2020 05/25/2020 naloxone (Narcan) injection 0.04 mg 0.04 mg, Intravenous, POST-OP MULTIPLE, Starting on Sat05/25/20 at 1108, Until Sat05/25/20 at 1353, Notify physician immediately, and mix 0.4 mg Naloxone in 9 mL Normal Saline for slow IV push. Administer dilute Naloxone solution IV very slowly (1 mL over 30 seconds) while observing the patient response and titrating to effect. If no response, call Rapid Response, continue IV Naloxone at the same rate up to a total of 0.8 mg of diluted Naloxone., PACU Continuous Medication Order 05/23/2020 05/24/2020 05/25/2020 lactated ringers infusion at 20 mL/hr, Intravenous, PRE-OP CONTINUOUS, Starting on Sat05/25/20 at 0800, Until Sat05/25/20 at 1353, Pre-op 0855 ($ New Bag/Syri nge - Provider: Maura Sanchez RN)1042 (Rate Change - Provider: Connie Muñiz DO) lactated ringers infusion at 125 mL/hr, Intravenous, CONTINUOUS, Starting on Sat05/25/20 at 1115, Until Sat05/25/20 at 1353, PACU 1115 (Due) PRN Medication Order 05/23/2020 05/24/2020 05/25/2020 fentaNYL (PF) (Sublimaze) injection 25 mcg 25 mcg, Intravenous, EVERY 10 MIN PRN, Mild Pain, 4 doses, Starting on Sat05/25/20 at 1108, Until Sat05/25/20 at 1353, Maximum total of 4 doses. If patient reaches max total dose, please consult anesthesiologist prior to further administration of pain meds. Hold pain meds if there are signs of hypoventilation., PACU fentaNYL (PF) (Sublimaze) injection 50 mcg 50 mcg, Intravenous, EVERY 10 MIN PRN, Moderate Pain, 4 doses, Starting on Sat05/25/20 at 1108, Until Sat05/25/20 at 1353, Maximum total of 4 doses. If patient reaches max total dose, please consult anesthesiologist prior to further administration of pain meds. Hold pain meds if there are signs of hypoventilation., PACU lidocaine 1% (Xylocaine-MPF) - EPINEPHrine 1:100,000 injection (CANCELED) PRN, Starting on Sat05/25/20 at 1008, Until Sat05/25/20 at 1047, Intra-op 1008 ($ Given - Prov ider: Michi Longo MD) prochlorperazine (Compazine) injection 10 mg 10 mg, Intravenous, ONCE PRN, Nausea/Vomiting, 1 dose, Starting on Sat05/25/20 at 1108, Until Sat05/25/20 at 1353, First choice, PACU vancomycin (Vancocin) injection (CANCELED) PRN, Starting on Sat05/25/20 at 1008, Until Sat05/25/20 at 1047, Indication for anti-infective therapy: Surgical prophylaxis, Intra-op 1008 ($ Given - Prov ider: Michi Longo MD) documented in this encounter Care Teams Automotive Service Cashier Relationship Specialty Start Date End Date Gulshan Mena MD [address] [place] [address] PCP - General Family Medicine 12/19/09 documented as of this encounter
--- OUTSIDE RECORDS SUMMARY | 2024-02-12 05:05 | XMS_ITS | Encounter Summary ---
Author Organization [facility] Address [address] [place] [address] Care Team Providers Care Paint Department Supervisor Name Role Phone Gulshan Mena MD Primary Care Provider [phone] Reason for Visit * Reason Onset Date Comments Follow-up 05/06/2018 Encounter Details Date Type Department Care Team (Late st Contact Info) Description 05/06/2018 Telephone [facility] [address] [facility] [facility] [place] [id number] Felicitas Chou Follow-up Social History Tobacco Use [...] * Telephone Encounter - Felicitas Chou - 05/06/2018 1:05 PM CDT Spoke with nursing facility to go over surgery instructions for tomorrow. Arrival time 1030am to [facility] 3rd floor ACU. NPO after midnight. documented in this encounter Plan of Treatment Not on file documented as of this encounter Visit Diagnoses Not on filedocumented in this encounter Care Teams Paint Department Supervisor Relationship Specialty Start Date End Date Gulshan Mena MD [address] [place] [address] PCP - General Family Medicine 12/19/09 documented as of this encounter
--- OUTSIDE RECORDS SUMMARY | 2024-02-12 05:05 | XMS_ITS | Encounter Summary ---
Author Organization [facility] Health Address [address] [place] [address] Care Team Providers Care Fruit Washer Name Role Phone Gulshan Mena MD Primary Care Provider [phone] Reason for Visit * Auth/Cert Specialty Diagnoses / Procedures Referred By Contac t Referred To Contact Diagnoses Battery end of life of vagus nerve stimulator end of VNS battery life Procedures REPLACEMENT CRANIAL NEUROSTIMULATOR GENERATOR/BATTERY Referral ID Status Reason Start Date Expiration Date Visits Re quested Visits Authorized [id number] 1 1 Encounter Details Date Type Department Care Team (Latest Contact Info) Description 05/25/2020 7:25 AM CDT - 05/25/2020 12:51 PM CDT Hospital Encounter [facility] [address] [place] [id number] Michi Longo MD [address] [facility] 2L [place] [address] Neurosurgery Discharge Disposition: Other Facility Not Defined [...] COVID-19? No / Unsure 04/21/2020 9:07 AM FLOUR WORKER documented as of this encounter Last Filed Vital Signs Vital Sign Reading Time Taken Comments Blood Pressure 119/76 05/25/2020 12:15 PM CDT Pulse 76 05/25/2020 12:15 PM CDT Temperature 36.6 ??C (97.8 ??F) 05/25/2020 11:20 AM C DT Respiratory Rate 15 05/25/2020 12:15 PM CDT Oxygen Saturation 99% 05/25/2020 12:00 PM CDT Inhaled Oxygen Concentration - - Weight [...] 10 MG DOSE) 10 MG/0.1ML nasal spray [place] 10 mg into the nose 03/18/2020 docusate [...] Reasons: Stuffy Nose SALINE NASAL SPRAY NA [place] into the nose as needed VITAMIN D [...] signed by attending below. In Brief, Curt Granados Abiel is here for VNS generator replacement. Denies [...] of life. The patient lives in a technician terminal and repeater care facil ity is accompanied today by [...] the end of life. Patient lives in senior care care facility and is accompanied by staff [...] his mother. All questions answered Kristin Kat APRN-SLICING MACHINE FEEDER 04/21/2020 8:59 AM documented in this encounter OR Notes * Brief Op Note - Estefany Gusman MD - 05/25/2020 9:59 AM CDT Brief Op Note Procedure: Vagus nerve stimulator generator replacement Patient Name: Curt Ryder Date of Service: 05/25/2020 Pre-Op Diagnosis: end of VNS battery life Post-Op Diagnosis: same Surgeon(s) and Role: * Michi Longo MD - Primary * Estefany Gusman MD - Resident - Assisting Rubbing Bed Operator(s): Ethan Dougherty, MS3 Anesthesia Type: general ETT Complications: none [...] Implant Name Type Inv. Item Serial No. Network Pricing Consultant Lot No. LRB No. Used Action SYS NS VAGUS NRV EPLP - [id number] Gntr Nrstm Vagus Nrv Eplp [id number] LivaNova Left 1 Explanted GNTR NRSTM VAGUS NRV EPLP - [id number] Gntr Nrstm Vagus Nrv Eplp [id number] LivaNova Left 1 Implanted Etsefany Gusman MD Associated attestation - Michi Longo MD - 05/25/2020 12:52 PM CDT Note from resident reviewed, patient seen and examined, all images reviewed, and situation discussed with patient and child care nurse present. At NE baseline; wound benign; rady [...] neurostimulator pulse generator. SURGEON: Michi Longo M.D. REAGENT TENDER HELPER: Dr. Estefany Gusman. PREOPERATIVE DIAGNOSIS: Epilepsy, responsive [...] at end of service. FINDINGS: The existing Fashionchick, model 1000, serial #[id number] was removed and replaced with a Fashionchick model 1000, serial #[id number] in the left chest wall. The impedance [...] case. MD VIKTORIYA Basurto Professor of Neurosurgery psychology department chair, Department of Neurosurgery [id number] Doc ID: [id number] Voice Job ID: [id number] documented in this encounter Plan of Treatment Not on file documented as of this encounter Procedures Procedure Name Priority Date/Time Associated Diagnosis Comments LAB RESULTS ORDER 05/27/2020 2:4 1 PM CDT XR CHEST 1VW PORTABLE Routine 05/25/2020 11:19 AM CDT Status post VNS (vagus nerve stimulator) placement PATHOLOGY TISSUE Routine 05/25/2020 10:1 2 AM CDT Battery end of life of vagus nerve stimulator [place] INSRT/REPL CRANIAL NEUROSTIM GEN/RECV; W/1 ARRAY 05/25/2020 [...] is intact. Dictated by Rajat Diehl MD (secretary to the vice president). This report was approved ??by Rajat Diehl ?? on 05/25/2020 11:[address] KATARINA Foster MD [...] is intact. Dictated by Rajat Diehl MD (secretary to the vice president). This report was approved by Rajat Diehl on 05/25/2020 11:[address] KATARINA Foster MD have personally reviewed and interpretedthis examination/study. This report was electronically signed by Dr. KATARINA BALDERRAMA MD on 05/25/2020 1:12 PM . Michi Longo MD DIAGNOSTIC IMAGING ORDERABLES * PATHOLOGY TISSUE (05/25/2020 10:12 AM CDT) Case Report Surgical Pathology Report ? Case: [id number] ? Authorizing Provider: ??Michi Longo MD ? Collected: ? 05/25/2020 10:12 AM ? Ordering Location: ? [facility] ?Received: ?05/25/2020 11:36 AM ? Pathologist: ? Teena Samayoa MD ? Specimen: ?Foreign Object, Generator for end of life ? 06/06/2020 5:33 PM CDT [facility] Final Diagnosis Foreign object, vagus nerve stimulator generator, replacement: - Foreign object, consistent with medical records assistant (gross examination only) 06/06/2020 5:33 PM CDT [facility] Clinical History The patient is a 35-year-old man who presents with battery end of life of the vagus nerve stimulator. 06/06/2020 5:33 PM CDT [facility] Gross Description The requisition and specimen(s) are identified with the patient's name, Crut Ryder. Received fresh without fixative, specimen A is a silver metallic foreign object measuring 4.5 x 3.2 x 0.7 cm. There is a plastic component at one end with a wire connection. This writing on one face of the specimen as follows: VNSTherapy , SENTIVA , MODEL 1000 , SN: [id number] , [employer] There is no attached soft tissue. The specimen is submitted for gross examination only. 06/06/2020 5:33 PM CDT [facility] Disclaimer The performance characteristics of all immunohistochemical and indirect immunofluorescence stains (if any) cited in this report were determined by the Histopathology Laboratory of [facility]. Some of these tests were developed [...] attending (teaching) pathologist. 06/06/2020 5:33 PM CDT [facility] Embedded Images 06/06/2020 5:33 PM T [facility] Removal MISCELLANEOUS SAMPLES / Unknown 05/25/2020 10:12 AM CDT 05/25/2020 11:36 AM CDT Comment:Pre-op diagnosis: end of VNS battery life Michi Longo MD LAB - PATHOLOGY/CYT OLOGY ORDERABLES Performing Organization Address City/State/[facility] Co de Phone Number [facility] [address] [phone] documented in this encounter Visit Diagnoses Diagnosis [...] 05/25/2020 8:55 AM CDT 20 mL/ hr documented in this encounter Active and Recently [...] MD) documented in this encounter Care Teams Fruit Washer Relationship Specialty Start Date End Date Gulshan Mena MD [address] [place] [address] PCP - General Family Medicine 12/19/09 documented as of this encounter
--- OUTSIDE RECORDS SUMMARY | 2024-02-12 05:05 | XMS_ITS | Encounter Summary ---
Author Organization [facility] Health Address [address] [place] [address] Care Team Providers Care Performance Improvement Consultant Name Role Phone Gulshan Mena MD Primary Care Provider [phone] Encounter Details Date Type Department Care Team (Latest Contact Info) Description 11/29/2023 Travel Social History Tobacco Use Types Packs/Day [...] PM CDT documented as of this encounter Plan of Treatment Not on file documented as of this encounter Visit Diagnoses Not on filedocumented in this encounter Care Teams Performance Improvement Consultant Relationship Specialty Start Date End Date Gulshan Mena MD [address] [facility] [address] [place] [id number] PCP - General Family Medicine 12/19/09 documented as of this encounter
--- OUTSIDE RECORDS SUMMARY | 2024-02-12 05:05 | XMS_ITS | Referral Summary ---
Author Organization [facility] Address [address] [place] [address] Care Team Providers Care Salesperson Used Cars Name Role Phone Gulshan Mena MD Primary Care Provider [phone] Source Comments [facility],non-owned Affiliates and Associated Physician Practices is amultiple site organization consisting of ambulatory clinics and hospital sitesin [place], [place], [place] and [place]. This disclosure is being madepursuant to the Care Everywhere program and may not contain all information available regarding this patient. Last updated 17.[facility] Encounters Date Type Department Care Team Description 01/11/2024 Travel 01/11/2024 11:38 AM TRAPEZE PERFORMER - 01/11/2024 3:40 PM TRAPEZE PERFORMER Emergency ER at [facility] [address] [place] [address] Chip Chacon, Breakthrough seizure (HCC) (Primary Dx); Seizure (HCC) Discharge Disposition: Home or Self Care 11/29/2023 Travel 11/29/2023 12:00 PM CDT Home Care Visit [facility] [address] [place] [id number] Alina Ortega MD Perry, Allison, RN SN NON ADMIT 11/28/2023 Orders Only [facility] Health at Home Scheduling [address] [place] [address] Jessica Angel MD Acute calculous cholecystitis ; Autism (HCC) from Last 3 Months Allergies Active Allergy Reactions Criticality Noted Date Comments Amoxicillin Urticaria Medium 12/19/2009 Phenytoin Sodium Urticaria Medium 12/19/2009 Penicillins Urticaria High 05/24/2020 Carbamazepine Angioedema High 12/19/2009 meds given no artificial airway needed Medications * Be aware that medications may not be up to date on this document. Alwaysverify current medications with the patient. Medication Sig Dispensed Refills Start Date End Date Status lacosamide (VIMPAT) 200 MG tablet Take 100 tablets by mouth 2 times daily Active lamoTRIgine (LAMICTAL) 150 MG tablet 2 Tabs 3 times daily. Active busPIRone (BUSPAR) 10 MG tablet 1 Tab 3 times daily. Active VITAMIN D PO Take 50,000 Units by mouth every 14 days Take one tab weekly Active multivitamin daily (THERAGRAN) tablet Take 1 Tab by mouth daily with food. Active loratadine (CLARITIN) 10 MG tablet Take 10 mg by mouth daily. Active docusate sodium (COLACE) 100 MG capsule Take 100 mg by mouth 2 times daily. 12/20/2009 Active cloBAZam (ONFI) 10 MG tabletIndications:A t bedtime Take 20 mg by mouth once daily Reasons: At bedtime Active cloNIDine (CATAPRES) 0.1 MG tablet Take 0.3 mg by mouth once daily Active Magnesium Hydroxide (MILK OF MAGNESIA PO) Take 30 mL by mouth every Saturday & Saturday Active Fexofenadine HCl (MUCINEX ALLERGY PO) Take 400 mg by mouth as needed Active Nutritional Supplements (ENSURE NUTRITION SHAKE PO) Take by mouth as needed Active Polyethylene Glycol 3350 (MIRALAX PO) Take 8.5 g by mouth as needed Active SALINE NASAL SPRAY NA [place] into the nose as needed Active propranolol (INDERAL) 80 MG tablet Take 80 mg by mouth once Active zonisamide (ZONEGRAN) 100 MG capsule Take 100 mg by mouth 2 times daily Active bisacodyl EC (BISACODYL EC) 5 MG tabletIndications:5 pm on day 4 of No BM Take 5 mg by mouth once as needed for Constipation Reasons: 5 pm on day 4 of No BM Active bisacodyl (DULCOLAX) 10 MG suppository Insert 10 mg into the rectum as needed for Constipation Active loperamide (IMODIUM) 2 MG capsuleIndications: Diarrhea Take 2 mg by mouth as needed for Diarrhea Reasons: Diarrhea Active pseudoephedrine (SUDAFED) 30 MG tabletIndications:N antonia Congestion Take 10 mg by mouth as needed for Nasal Congestion Reasons: Stuffy Nose Active diazePAM (VALTOCO 10 MG DOSE) 10 MG/0.1ML nasal spray [place] 10 mg into the nose 03/18/2020 Active famotidine (PEPCID) 20 MG tablet Take 20 mg by mouth 2 times daily Active HYDROcodone-acetami nophen (NORCO) 5-325 MG tablet Take 1 (one) tablet by mouth every 6 hours as needed for Pain 12 tablet 05/25/2020 Active diazePAM (Valtoco 10 MG Dose) 10 MG/0.1ML nasal spray [place] 0.1 mL into the nose as needed for Seizures 2 Each 01/11/2024 Active Active Problems Problem Noted Date Diagnosed Date Status post VNS (vagus nerve stimulator) placeme nt 10/06/2017 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 Overview (10/06/2017): Overview: Infantile autism Seizure disorder, complex pa rtial, with intractable epilepsy 10/15/2013 Development delay 10/14/2013 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 Overview (05/29/2018): Overview: Refractory generalized nonconvulsive epilepsy Overview: Refractory generalized nonconvulsive epilepsy Seizure 07/16/2013 Overview (05/29/2018): Overview: Seizure Overview: Seizure 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 Overview (05/29/2018): Overview: Emmett-Gastaut syndrome Overview: Emmett-Gastaut syndrome Active autistic disorder 07/10/2012 Overview (10/06/2017): Overview: Autism disorder Developmental delay 07/10/2012 Overview (10/06/2017): Overview: Development delay ADHD (attention deficit hyperactivity disorder) 08/17/2009 Intractable epilepsy 08/17/2009 Sleep disorder 08/17/2009 Static encephalopathy 08/17/2009 Battery end of life of vagus nerve stimulator Immunizations Name Administration Dates Next Due INFLUENZA 11/05/2019 Social History Tobacco Use Types Packs/Day Years [...] Comments Blood Pressure 120/82 01/11/2024 3:39 PM TRAPEZE PERFORMER Pulse 98 01/11/2024 3:39 PM TRAPEZE PERFORMER Temperature 37 ??C (98.6 ??F) 01/11/2024 3:39 PM TRAPEZE PERFORMER Respiratory Rate 18 09/01/2020 9:32 AM CDT Oxygen Saturation 100% 01/11/2024 3:39 PM TRAPEZE PERFORMER Inhaled Oxygen Concentration - - Weight 83.9 kg (185 lb) 09/01/2020 9:32 AM CDT Height 170.2 cm (5' 7 ) 09/01/2020 9:32 AM CDT Body Mass Index 28.98 09/01/2020 9:32 AM CDT Plan of Treatment Not on file Medical Devices Implanted Type Area Rn Lvn Device Identifier Shelf Expiration Date Model / Serial / Lot Gntr Nrstm Vagus Nrv [facility] - [id number] Implanted:Qty: 1 on 05/25/2020 by Michi Longo MD at [facility] Left: Chest LivaNova 12/22/2021 10-0012-500 2 / [id number] / Explanted Type Area Rn Lvn Device Identifier Shelf Expiration Date Model / Serial / Lot Sys Ns Vagus Nrv Ep - [id number] Implanted:Qty: 1 on 05/16/2018 by Michi Longo MD at [facility] Explanted:Qty: 1 on 05/25/2020 at [facility] Left: Chest LivaNova 08/29/2019 1000 / [id number] / Procedures Procedure Name Priority Date/Time Associated Diagnosis Comments CARDIAC EKG ORDER 01/13/2024 3:4 9 PM TRAPEZE PERFORMER XR CHEST 1VW PORTABLE STAT 01/11/2024 1:48 PM TRAPEZE PERFORMER Seizure (HCC) LACTIC ACID BLOOD REFLEX TO REPEAT STAT 01/11/2024 12:29 PM TRAPEZE PERFORMER MAGNESIUM BLOOD STAT 01/11/2024 12:29 PM TRAPEZE PERFORMER CK BLOOD STAT 01/11/2024 12:29 PM TRAPEZE PERFORMER COMPREHENSIVE METABOLIC PANEL STAT 01/11/2024 12:29 PM TRAPEZE PERFORMER CBC W AUTO DIFFERENTIAL STAT 01/11/2024 12:29 PM TRAPEZE PERFORMER EKG 12-LEAD STAT 01/11/2024 12:19 PM TRAPEZE PERFORMER Seizure (HCC) from Last 3 Months Results * CARDIAC EKG ORDER (01/13/2024 3:49 PM TRAPEZE PERFORMER) Narrative 01/13/2024 3:49 PM TRAPEZE PERFORMER Ordered by an unspecified provider. Scanned Document CARDIAC SERVICES ORD ERABLES * XR CHEST 1VW PORTABLE (01/11/2024 1:48 PM TRAPEZE PERFORMER) Anatomical Region Laterality Modality Chest Computed Radiogr aphy 01/11/2024 1:55 PM TRAPEZE PERFORMER Impressions 01/11/2024 1:56 PM TRAPEZE PERFORMER IMPRESSION: No acute cardiopulmonary abnormality. > Interpreting Provider: Destini Ontiveros MD on 01/11/2024 1:56 PM Narrative 01/11/2024 1:56 PM TRAPEZE PERFORMER PROCEDURE: ??XR CHEST 1VW PORTABLE DATE/TIME OF [...] BLOOD REFLEX TO REPEAT (01/11/2024 12:29 PM TRAPEZE PERFORMER) Pathologist [facility] Lactic Acid 2.3(H) <=2.0 mmol/L 01/11/2024 12:55 PM TRAPEZE PERFORMER [facility] Blood BLOOD SPECIMEN / Unknown Venipuncture / Unknown 01/11/2024 12:29 PM TRAPEZE PERFORMER 01/11/2024 12:30 PM TRAPEZE PERFORMER Leonor Alvares PA-C LAB - CHEMISTRY OR DERABLES [facility] [address] [place] [address] * (ABNORMAL) CBC W AUTO DIFFERENTIAL (01/11/2024 12:29 PM TRAPEZE PERFORMER) Pathologist [facility] WBC 7.3 4.0 - 10.7 x10E9/L 01/11/2024 12:36 PM TRAPEZE PERFORMER [facility] RBC Count 4.41 4.30 - 5.80 x10E12/L 01/11/2024 12:36 PM TRAPEZE PERFORMER [facility] Hemoglobin 13.7 13.3 - 17.5 g/dL 01/11/2024 12:36 PM TRAPEZE PERFORMER [facility] Hematocrit 40.6 38.7 - 51.1 % 01/11/2024 12:36 PM TRAPEZE PERFORMER [facility] MCV 92.1 80.0 - 98.0 fL 01/11/2024 12:36 PM [facility] MCH 31.1 26.7 - 33.6 pg 01/11/2024 12:36 PM TRAPEZE PERFORMER [facility] MCHC 33.7 31.7 - 36.3 g/dL 01/11/2024 12:36 PM [facility] RDW-CV 13.2 11.3 - 14.8 % 01/11/2024 12:36 PM TRAPEZE PERFORMER [facility] Platelet Count 184 150 - 420 x10E9/L 01/11/2024 12:36 PM [facility] MPV 9.2 7.8 - 11.4 fL 01/11/2024 12:36 PM [facility] Neutrophil % 71.8 41.0 - 74.0 % 01/11/2024 12:36 PM [facility] Lymphocyte % 13.2(L) 17.0 - 47.0 % 01/11/2024 12:36 PM [facility] Monocyte % 11.0 3.0 - 11.0 % 01/11/2024 12:36 PM [facility] Eosinophil % 3.3 0.0 - 7.0 % 01/11/2024 12:36 PM [facility] Basophil % 0.6 0.0 - 1.6 % 01/11/2024 12:36 PM [facility] Immature Granulocytes % 0.1 0.0 - 1.0 % 01/11/2024 12:36 PM [facility] Neutrophil Absolute 5.22 1.60 - 7.50 x10E9/L 01/11/2024 12:36 PM [facility] Lymphocyte Absolute 0.96(L) 1.00 - 4.40 x10E9/L 01/11/2024 12:36 PM [facility] Monocyte Absolute 0.80 0.15 - 1.00 x10E9/L 01/11/2024 12:36 PM [facility] Eosinophil Absolute 0.24 0.00 - 0.60 x10E9/L 01/11/2024 12:36 PM [facility] Basophil Absolute 0.04 0.00 - 0.13 x10E9/L 01/11/2024 12:36 PM [facility] Blood BLOOD SPECIMEN / Unknown Venipuncture / Unknown 01/11/2024 12:29 PM TRAPEZE PERFORMER 01/11/2024 12:30 PM TRAPEZE PERFORMER Leonor Alvares PA-C LAB - HEMATOLOGY O RDERABLES [facility] [address] [place] [address] * (ABNORMAL) COMPREHENSIVE METABOLIC PANEL (01/11/2024 12:29 PM TRAPEZE PERFORMER) Glucose 112(H) 70 - 99 mg/dL 01/11/2024 12:59 PM [facility] Sodium 140 136 - 145 mmol/L 01/11/2024 12:59 PM [facility] Potassium 4.7 3.5 - 5.1 mmol/L 01/11/2024 12:59 PM [facility] Chloride 108(H) 98 - 107 mmol/L 01/11/2024 12:59 PM [facility] CO2 23 22 - 29 mmol/L 01/11/2024 12:59 PM [facility] Calcium 9.7 8.4 - 10.4 mg/dL 01/11/2024 12:59 PM [facility] Anion Gap 9 6 - 16 mmol/L 01/11/2024 12:59 PM [facility] BUN 20(H) 5.3 - 18.7 mg/dL 01/11/2024 12:59 PM [facility] Creatinine 0.99 0.72 - 1.25 mg/dL 01/11/2024 12:59 PM [facility] Alkaline Phosphatase 167(H) 40 - 150 U/L 01/11/2024 12:59 PM [facility] ALT 82(H) 0 - 55 U/L 01/11/2024 12:59 PM [facility] AST 36(H) 5 - 34 U/L 01/11/2024 12:59 PM [facility] Protein Total 8.1 6.4 - 8.3 gm/dL 01/11/2024 12:59 PM TRAPEZE PERFORMER [facility] Albumin 4.3 3.4 - 5.0 gm/dL 01/11/2024 12:59 PM TRAPEZE PERFORMER -[facility] Bilirubin Total 0.5 0.2 - 1.2 mg/dL 01/11/2024 12:59 PM TRAPEZE PERFORMER -[facility] eGFR by CKD-EPI >90 >=90 mL/min/1.7 3 m2 01/11/2024 12:59 PM TRAPEZE PERFORMER [facility] Blood BLOOD SPECIMEN / Unknown Venipuncture / Unknown 01/11/2024 12:29 PM TRAPEZE PERFORMER 01/11/2024 12:30 PM TRAPEZE PERFORMER Leonor Alvares PA-C LAB - CHEMISTRY OR DERABLES [facility] [address] [place] [id number] * MAGNESIUM BLOOD (01/11/2024 12:29 PM TRAPEZE PERFORMER) Magnesium 1.7 1.6 - 2.6 mg/dL 01/11/2024 12:59 PM TRAPEZE PERFORMER [facility] Blood BLOOD SPECIMEN / Unknown Venipuncture / Unknown 01/11/2024 12:29 PM TRAPEZE PERFORMER 01/11/2024 12:30 PM TRAPEZE PERFORMER Leonor Alvares PA-C LAB - CHEMISTRY OR DERABLES [facility] [address] [place] [address] * (ABNORMAL) CK BLOOD (01/11/2024 12:29 PM TRAPEZE PERFORMER) CK 19(L) 30 - 200 U/L 01/11/2024 12:59 PM TRAPEZE PERFORMER [facility] Blood BLOOD SPECIMEN / Unknown Venipuncture / Unknown 01/11/2024 12:29 PM TRAPEZE PERFORMER 01/11/2024 12:30 PM TRAPEZE PERFORMER Leonor Alvares PA-C LAB - CHEMISTRY OR DERABLES [facility] [address] [place] [address] * EKG 12-LEAD (01/11/2024 12:19 PM TRAPEZE PERFORMER) Ventricular Rate 106 BPM [facility] Atrial Rate 106 BPM [facility] P-R Interval 154 ms [facility] QRS Duration ms 80 ms [facility] Q-T Interval ms 310 ms [facility] QTC Calculation (Bezet) 411 ms [facility] Calculated P [place] 31 degrees [facility] Calculated R [place] 45 degrees [facility] Calculated T [place] 39 degrees [facility] Interpretation EKG Sinus tachycardia Otherwise normal ECG No previous ECGs available Confirmed by FLORESITA SAM MD ([id number]) on 01/13/2024 1:57:39 PM [facility] 01/11/2024 12:1 9 PM TRAPEZE PERFORMER 01/13/2024 1:57 PM TRAPEZE PERFORMER Leonor Alvares PA-C ECG ORDERABLES Performing Organization Address City/[facility] Co de Phone Number [facility] from Last 3 Months Advance Directives Documents on File Type Date Recorded Patient Helper Driver Expl anation Adv Directive/Living Will/POA 01/11/2024 1:57 PM LEGAL GUARDIAN Care Teams Salesperson Used Cars Relationship Specialty Start Date End Date Gulshan Mena MD [address] [place], [place] [id number] PCP - General Family Medicine 12/19/09
--- OUTSIDE RECORDS SUMMARY | 2024-02-12 05:05 | XMS_ITS | Encounter Summary ---
Author Organization [facility] Health Address [address] [place] [address] Care Team Providers Care Broomcorn Sorter Name Role Phone Gulshan Mean MD Primary Care Provider [phone] Encounter Details Date Type Department Care Team (Latest Contact Info) Description 04/21/2020 Travel Social History Tobacco Use Types Packs/Day [...] COVID-19? No / Unsure 04/21/2020 9:07 AM DRAPERY INSTALLER documented as of this encounter Plan of Treatment Not on file documented as of this encounter Visit Diagnoses Not on filedocumented in this encounter Care Teams Broomcorn Sorter Relationship Specialty Start Date End Date Gulshan Mena MD [address] [place] [id number] PCP - General Family Medicine 12/19/09 documented as of this encounter
--- OUTSIDE RECORDS SUMMARY | 2024-02-12 05:05 | XMS_ITS | Clinical Summary ---
Author Organization [facility] Address [address] [place] [address] Care Team Providers Care Insulation Applicator Name Role Phone Gulshan Mena MD Primary Care Provider [phone] Source Comments [facility],non-owned Affiliates and Associated Physician Practices is amultiple site organization consisting of ambulatory clinics and hospital sitesin [place], [place], [place] and [place]. This disclosure is being madepursuant to the Care Everywhere program and may not contain all information available regarding this patient. Last updated 17.[facility] Allergies Active Allergy Reactions Criticality Noted Date [...] as needed Active SALINE NASAL SPRAY NA Charlo into the nose as needed Active propranolol [...] 10 MG DOSE) 10 MG/0.1ML nasal spray Charlo 10 mg into the nose 03/18/2020 Active famotidine (PEPCID) 20 MG tablet Take 20 mg by mouth 2 times daily Active HYDROcodone-acetami nophen (NORCO) 5-325 MG tablet Take 1 (one) tablet by mouth every 6 hours as needed for Pain 12 tablet 05/25/2020 Active diazePAM (Valtoco 10 MG Dose) 10 MG/0.1ML nasal spray Charlo 0.1 mL into the nose as needed for Seizures 2 Each 01/11/2024 Active Active Problems Problem Noted Date Diagnosed Date Status post VNS (vagus nerve stimulator) placeme nt 10/06/2017 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 Overview (10/06/2017): Overview: Infantile autism Seizure disorder, complex pa rtial, with intractable epilepsy 10/15/2013 Development delay 10/14/2013 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 Overview (05/29/2018): Overview: Refractory generalized nonconvulsive epilepsy Overview: Refractory generalized nonconvulsive epilepsy Seizure 07/16/2013 Overview (05/29/2018): Overview: Seizure Overview: Seizure Intractable [place]-Gastaut s yndrome without status epilepticus 10/20/2012 Overview (05/29/2018): Overview: [place]-Gast[place] syndrome Overview: [place]-Gast[place] syndrome Active autistic disorder 07/10/2012 Overview (10/06/2017): Overview: Autism disorder Developmental delay 07/10/2012 Overview (10/06/2017): Overview: Development delay ADHD (attention deficit hyperactivity disorder) 08/17/2009 Intractable epilepsy 08/17/2009 Sleep disorder 08/17/2009 Static encephalopathy 08/17/2009 Battery end of life of vagus nerve stimulator Encounters Date Type Department Care Team Description 01/11/2024 11:38 AM DIRECTOR CRITICAL CARE - 01/11/2024 3:40 PM DIRECTOR CRITICAL CARE Emergency ER at [facility] [address] [place] [address] Chip Chacon DO Breakthrough seizure (HCC) (Primary Dx); Seizure (HCC) Discharge Disposition: Home or Self Care 01/11/2024 Travel 11/29/2023 12:00 PM CDT Home Care Visit [facility] [address], [address] [address] Alina Ortega MD Perry, AllisonMAUOR SN NON ADMIT 11/29/2023 Travel 11/28/2023 Orders Only [facility] Scheduling [address] [facility] [place] [address] Jessica Angel MD Acute calculous cholecystitis ; Autism (HCC) from Last 3 Months Immunizations Name Administration Dates Next Due INFLUENZA [...] Comments Blood Pressure 120/82 01/11/2024 3:39 PM DIRECTOR CRITICAL CARE Pulse 98 01/11/2024 3:39 PM DIRECTOR CRITICAL CARE Temperature 37 ??C (98.6 ??F) 01/11/2024 3:39 PM DIRECTOR CRITICAL CARE Respiratory Rate 18 09/01/2020 9:32 AM CDT Oxygen Saturation 100% 01/11/2024 3:39 PM DIRECTOR CRITICAL CARE Inhaled Oxygen Concentration - - Weight 83.9 kg (185 lb) 09/01/2020 9:32 AM CDT Height 170.2 cm (5' 7 ) 09/01/2020 9:32 AM CDT Body Mass Index 28.98 09/01/2020 9:32 AM CDT Plan of Treatment Health Maintenance Due Date Last Done Comments HIV SCREENING 2001 HEPATITIS C SCREENING 04/10/2004 DTAP/TDAP/TD VACCINES (1 - Tdap) 2005 HEPATITIS B VACCINE (1 of 3 - 19+ 3-dose series) 2005 DEPRESSION SCREENING 02/11/2023 COVID-19 VACCINE ( - 2023-2 5 season) 2023 INFLUENZA VACCINE (#1) 2023 0, 11/10/2013 ZOSTER VACCINE (1 of 2) 2036 HIB VACCINE Aged Out No longer eligi ble based on patient's age to complete this topic HPV VACCINE Aged Out No longer eligi ble based on patient's age to complete this topic MENINGOCOCCAL VACCINE Aged Out No michelle vonda eligible based on patient's age to complete this topic PNEUMOCOCCAL VACCINE Aged Out No long er eligible based on patient's age to complete this topic Medical Devices Implanted Type Area Consumer Loan Manager Device Identifier Shelf Expiration Date Model / Serial / Lot Gntr Nrstm Vagus Nrv Eplp - [id number] Implanted:Qty: 1 on 05/25/2020 by Michi Longo MD at [facility] Left: Chest [employer] 12/22/2021 [id number] 2 / [id number] / Explanted Type Area Consumer Loan Manager Device Identifier Shelf Expiration Date Model / Serial / Lot Sys Ns Vagus Nrv Eplp - [id number] Implanted:Qty: 1 on 05/16/2018 by Michi Longo MD at [facility] Explanted:Qty: 1 on 05/25/2020 at [facility] Left: Chest [employer] 08/29/2019 1000 / [id number] / Procedures Procedure Name Priority Date/Time Associated Diagnosis Comments CARDIAC EKG ORDER 01/13/2024 3:4 9 PM DIRECTOR CRITICAL CARE XR CHEST 1VW PORTABLE STAT 01/11/2024 1:48 PM DIRECTOR CRITICAL CARE Seizure (HCC) LACTIC ACID BLOOD REFLEX TO REPEAT STAT 01/11/2024 12:29 PM DIRECTOR CRITICAL CARE MAGNESIUM BLOOD STAT 01/11/2024 12:29 PM DIRECTOR CRITICAL CARE CK BLOOD STAT 01/11/2024 12:29 PM DIRECTOR CRITICAL CARE COMPREHENSIVE METABOLIC PANEL STAT 01/11/2024 12:29 PM DIRECTOR CRITICAL CARE CBC W AUTO DIFFERENTIAL STAT 01/11/2024 12:29 PM DIRECTOR CRITICAL CARE EKG 12-LEAD STAT 01/11/2024 12:19 PM DIRECTOR CRITICAL CARE Seizure (HCC) from Last 3 Months Results * CARDIAC EKG ORDER (01/13/2024 3:49 PM DIRECTOR CRITICAL CARE) Narrative 01/13/2024 3:49 PM DIRECTOR CRITICAL CARE Ordered by an unspecified provider. Scanned Document CARDIAC SERVICES ORD ERABLES * XR CHEST 1VW PORTABLE (01/11/2024 1:48 PM DIRECTOR CRITICAL CARE) Anatomical Region Laterality Modality Chest Computed Radiogr aphy 01/11/2024 1:55 PM DIRECTOR CRITICAL CARE Impressions 01/11/2024 1:56 PM DIRECTOR CRITICAL CARE IMPRESSION: No acute cardiopulmonary abnormality. > Interpreting Provider: Destini Ontiveros MD on 01/11/2024 1:56 PM Narrative 01/11/2024 1:56 PM DIRECTOR CRITICAL CARE PROCEDURE: ??XR CHEST 1VW PORTABLE DATE/TIME OF [...] BLOOD REFLEX TO REPEAT (01/11/2024 12:29 PM DIRECTOR CRITICAL CARE) Lactic Acid 2.3(H) <=2.0 mmol/L 01/11/2024 12:55 PM DIRECTOR CRITICAL CARE [facility] Blood BLOOD SPECIMEN / Unknown Venipuncture / Unknown 01/11/2024 12:29 PM DIRECTOR CRITICAL CARE 01/11/2024 12:30 PM DIRECTOR CRITICAL CARE Leonor Alvares PA-C LAB - CHEMISTRY OR DERABLES [facility] [address] [place] [address] * (ABNORMAL) CBC W AUTO DIFFERENTIAL (01/11/2024 12:29 PM DIRECTOR CRITICAL CARE) WBC 7.3 4.0 - 10.7 x10E9/L 01/11/2024 12:36 PM DIRECTOR CRITICAL CARE [facility] RBC Count 4.41 4.30 - 5.80 x10E12/L 01/11/2024 12:36 PM DIRECTOR CRITICAL CARE [facility] Hemoglobin 13.7 13.3 - 17.5 g/dL 01/11/2024 12:36 PM DIRECTOR CRITICAL CARE [facility] Hematocrit 40.6 38.7 - 51.1 % 01/11/2024 12:36 PM DIRECTOR CRITICAL CARE [facility] MCV 92.1 80.0 - 98.0 fL 01/11/2024 12:36 PM DIRECTOR CRITICAL CARE [facility] MCH 31.1 26.7 - 33.6 pg 01/11/2024 12:36 PM DIRECTOR CRITICAL CARE [facility] MCHC 33.7 31.7 - 36.3 g/dL 01/11/2024 12:36 PM DIRECTOR CRITICAL CARE [facility] RDW-CV 13.2 11.3 - 14.8 % 01/11/2024 12:36 PM DIRECTOR CRITICAL CARE [facility] Platelet Count 184 150 - 420 x10E9/L 01/11/2024 12:36 PM DIRECTOR CRITICAL CARE [facility] MPV 9.2 7.8 - 11.4 fL 01/11/2024 12:36 PM DIRECTOR CRITICAL CARE [facility] Neutrophil % 71.8 41.0 - 74.0 % 01/11/2024 12:36 PM DIRECTOR CRITICAL CARE [facility] Lymphocyte % 13.2(L) 17.0 - 47.0 % 01/11/2024 12:36 PM DIRECTOR CRITICAL CARE [facility] Monocyte % 11.0 3.0 - 11.0 % 01/11/2024 12:36 PM DIRECTOR CRITICAL CARE [facility] Eosinophil % 3.3 0.0 - 7.0 % 01/11/2024 12:36 PM DIRECTOR CRITICAL CARE [facility] Basophil % 0.6 0.0 - 1.6 % 01/11/2024 12:36 PM [facility] Immature Granulocytes % 0.1 0.0 - 1.0 % 01/11/2024 12:36 PM [facility] Neutrophil Absolute 5.22 1.60 - 7.50 x10E9/L 01/11/2024 12:36 PM [facility] Lymphocyte Absolute 0.96(L) 1.00 - 4.40 x10E9/L 01/11/2024 12:36 PM [facility] Monocyte Absolute 0.80 0.15 - 1.00 x10E9/L 01/11/2024 12:36 PM [facility] Eosinophil Absolute 0.24 0.00 - 0.60 x10E9/L 01/11/2024 12:36 PM [facility] Basophil Absolute 0.04 0.00 - 0.13 x10E9/L 01/11/2024 12:36 PM [facility] Blood BLOOD SPECIMEN / Unknown Venipuncture / Unknown 01/11/2024 12:29 PM DIRECTOR CRITICAL CARE 01/11/2024 12:30 PM DIRECTOR CRITICAL CARE Leonor Alvares PA-C LAB - HEMATOLOGY O RDERABLES [facility] [address] [place] [address] * (ABNORMAL) COMPREHENSIVE METABOLIC PANEL (01/11/2024 12:29 PM DIRECTOR CRITICAL CARE) Glucose 112(H) 70 - 99 mg/dL 01/11/2024 12:59 PM [facility] Sodium 140 136 - 145 mmol/L 01/11/2024 12:59 PM [facility] Potassium 4.7 3.5 - 5.1 mmol/L 01/11/2024 12:59 PM [facility] Chloride 108(H) 98 - 107 mmol/L 01/11/2024 12:59 PM [facility] CO2 23 22 - 29 mmol/L 01/11/2024 12:59 PM [facility] Calcium 9.7 8.4 - 10.4 mg/dL 01/11/2024 12:59 PM [facility] Anion Gap 9 6 - 16 mmol/L 01/11/2024 12:59 PM [facility] BUN 20(H) 5.3 - 18.7 mg/dL 01/11/2024 12:59 PM [facility] Creatinine 0.99 0.72 - 1.25 mg/dL 01/11/2024 12:59 PM [facility] Alkaline Phosphatase 167(H) 40 - 150 U/L 01/11/2024 12:59 PM [facility] ALT 82(H) 0 - 55 U/L 01/11/2024 12:59 PM [facility] AST 36(H) 5 - 34 U/L 01/11/2024 12:59 PM [facility] Protein Total 8.1 6.4 - 8.3 gm/dL 01/11/2024 12:59 PM [facility] Albumin 4.3 3.4 - 5.0 gm/dL 01/11/2024 12:59 PM [facility] Bilirubin Total 0.5 0.2 - 1.2 mg/dL 01/11/2024 12:59 PM [facility] eGFR by CKD-EPI >90 >=90 mL/min/1.7 3 m2 01/11/2024 12:59 PM [facility] Blood BLOOD SPECIMEN / Unknown Venipuncture / Unknown 01/11/2024 12:29 PM DIRECTOR CRITICAL CARE 01/11/2024 12:30 PM [facility] Leonor Alvares PA-C LAB - CHEMISTRY OR DERABLES [facility] [address] [place] [address] * MAGNESIUM BLOOD (01/11/2024 12:29 PM [facility]) Magnesium 1.7 1.6 - 2.6 mg/dL 01/11/2024 12:59 PM [facility] Blood BLOOD SPECIMEN / Unknown Venipuncture / Unknown 01/11/2024 12:29 PM DIRECTOR CRITICAL CARE 01/11/2024 12:30 PM DIRECTOR CRITICAL CARE Leonor Alvares PA-C LAB - CHEMISTRY OR DERABLES [facility] [address] [place] [address] * (ABNORMAL) CK BLOOD (01/11/2024 12:29 PM DIRECTOR CRITICAL CARE) CK 19(L) 30 - 200 U/L 01/11/2024 12:59 PM DIRECTOR CRITICAL CARE -[facility] Blood BLOOD SPECIMEN / Unknown Venipuncture / Unknown 01/11/2024 12:29 PM DIRECTOR CRITICAL CARE 01/11/2024 12:30 PM DIRECTOR CRITICAL CARE Leonor Alvares PA-C LAB - CHEMISTRY OR DERABLES Performing Organization Address [facility] [employer] de Phone Number [facility] [address] [place] [id number] * EKG 12-LEAD (01/11/2024 12:19 PM DIRECTOR CRITICAL CARE) Ventricular Rate 106 BPM [facility] Atrial Rate 106 BPM [facility] P-R Interval 154 ms [facility] QRS Duration ms 80 ms [facility] Q-T Interval ms 310 ms [facility] QTC Calculation (Bezet) 411 ms [facility] Calculated P [place] 31 degrees [facility] Calculated R [place] 45 degrees [facility] Calculated T [place] 39 degrees [facility] Interpretation EKG Sinus tachycardia Otherwise normal ECG No previous ECGs available Confirmed by FLORESITA SAM MD ([id number]) on 01/13/2024 1:57:39 PM [facility] 01/11/2024 12:1 9 PM DIRECTOR CRITICAL CARE 01/13/2024 1:57 PM DIRECTOR CRITICAL CARE Leonor Alvares PA-C [facility] Advance Directives Documents on File Type Date Recorded Patient Fractionating Still Operator Expl anation Adv Directive/Living Will/POA 01/11/2024 1:57 PM LEGAL GUARDIAN Care Teams Insulation Applicator Relationship Specialty Start Date End Date Gulshan Mena MD [address] [place] [address] PCP - General Family Medicine 12/19/09
--- OUTSIDE RECORDS SUMMARY | 2024-02-12 05:05 | XMS_ITS | Encounter Summary ---
Author Organization [facility] Address [address] [place] [address] Care Team Providers Care Swaging Machine Operator Name Role Phone Gulshan Mena MD Primary Care Provider [phone] Reason for Visit * Reason Comments Establish Care Rev of L VNS 3m f/u Encounter Details Date Type Department Care Team (Late st Contact Info) Description 09/01/2020 8:45 AM CDT Office Visit [facility] [address] [place] [address], [place] [id number] Michi Longo MD [address] [place] [address] [place] [address] Status post VNS (vagus nerve stimulator) placement [...] Sign Reading Time Taken Comments Blood Pressure 121/71 09/01/2020 9:32 AM CDT Pulse 72 09/01/2020 9:32 AM CDT Temperature 36.2 ??C (97.2 ??F) 09/01/2020 9:32 AM CD T Respiratory Rate 18 09/01/2020 9:32 AM CDT Oxygen Saturation 99% 09/01/2020 9:32 AM CDT Inhaled Oxygen Concentration - - Weight 83.9 kg (185 lb) 09/01/2020 9:32 AM CDT Height 170.2 cm (5' 7 ) 09/01/2020 9:32 AM CDT Body Mass Index 28.98 09/01/2020 9:32 AM CDT documented in this encounter Patient Instructions * Patient Instructions* Felicitas Chou - 09/01/2020 9:37 AM CDT Discharge from clinic For any questions please call Felicitas [phone] documented in this encounter Progress Notes * Michi Longo MD - 09/01/2020 9:39 AM CDT Neurosurgery Clinic Progress Note Chief Complaint (CC): follow up revision vagal nerve stimulator (VNS) battery HISTORY OF PRESENT ILLNESS (HPI): This patient is a 35 year old male with a history of??Emmett-Gastaut syndrome, autism spectum disorded,??developmental delay,??and medically-refractory generalized non-convulsive epilepsy??status post vagal nerve stimulator (VNS) placement in 2013, and??VNS generator revision on 05/16/18,??who is??presenting to clinic??today after the latest revision of his generator on May 25, 2020. The??patientwas accompanied on today's visit by one of the care givers in his intermediate card tender care facility who did not know anything about the patient's seizure frequency, but did report that he has had no swelling about the system. She also did not know about follow up appointments with his neurologist.?? Past Medical History: Diagnosis Date ??? ADHD (attention deficit hyperactivity disorder) ??? Aggression - adjustment disorder ??? Autism ??? Constipation ??? Convulsions last seizure 05/24/20 ??? GERD (gastroesophageal reflux disease) ??? Emmett-Gastaut syndrome, intractable, with status epilepticus ??? MR (mental retardation) severe ??? Seizure disorder last one 02/13/2014 ??? Static encephalopathy Past Surgical History: Procedure Laterality Date ??? DEEP BRAIN NEURO STIMULATOR Left 05/16/2018 Left; VAGAL NERVE NEUROSTIMULATOR GENERATOR REPLACEMENT ??? DEEP BRAIN NEURO STIMULATOR Left 05/25/2020 Left; Vagus nerve stimulator generator replacement ??? EGD 12/20/09 Marcu--gastritis ??? OTHER SURGERY [...] docusate sodium (COLACE) 100 MG capsule ??? famotidine (PEPCID) 20 MG tablet ??? Fexofenadine HCl (MUCINEX ALLERGY PO) ??? HYDROcodone-acetaminophen (NORCO) 5-325 MG tablet ??? lacosamide (VIMPAT) 200 MG tablet ??? lamoTRIgine (LAMICTAL) 150 MG tablet ??? loperamide (IMODIUM) 2 MG capsule ??? loratadine (CLARITIN) 10 MG tablet ??? Magnesium Hydroxide (MILK OF MAGNESIA PO) ??? multivitamin daily (THERAGRAN) tablet ??? Nutritional Supplements (ENSURE NUTRITION SHAKE PO) ??? Polyethylene Glycol 3350 (MIRALAX PO) ??? propranolol (INDERAL) 80 MG tablet ??? pseudoephedrine (SUDAFED) 30 MG tablet ??? SALINE NASAL SPRAY NA ??? VITAMIN D PO ??? zonisamide (ZONEGRAN) 100 MG capsule No current facility-administered medications for this visit. Allergies Allergen Reactions ??? Penicillins Urticaria ??? Amoxicillin Urticaria ??? Tegretol [Carbamazepine] Angioedema meds given no artificial airway needed ??? Dilantin [Phenytoin Sodium] Urticaria Social History Tobacco Use ??? Smoking status: Never Smoker ??? Smokeless tobacco: Never Used Substance Use Topics ??? Alcohol use: No Family: No family history on file. REVIEW OF SYSTEMS A comprehensive review of systems was negative. PHYSICAL EXAM BP 121/71 Pulse 72 Temp 97.2 ??F (36.2 ??C) (Temporal) Resp 18 Ht 1.702 m (5' 7 ) Wt 83.9 kg (185 lb) SpO2 99% BMI 28.98 kg/m2 General: NAD Cardiovascular: warm, well profused Respiratory: non-labored breathing Abdominal: S, NT, ND Integument: no lesions found Vascular: capillary refill <3 seconds Neuro: Alert but no speech, pupils equal and reactive to light, extra-occular muscles intact, face symmetric, does not follows commands, wound well healed without erythema or induration. RADIOLOGICAL REVIEW: No films taken on this visit. Assessment/Plan: Travis Beebe is a 35 year old male who is dong well three months following revision of hsi VNS battery. He was discharged from our clinic as of this date. Michi Longo MD 09/01/2020 9:39 AM documented in this encounter Plan of Treatment Not on file documented as of this encounter Visit Diagnoses Diagnosis Status post VNS (vagus nerve stimulator) placement- Primary Other postprocedural status documented in this encounter Care Teams Swaging Machine Operator Relationship Specialty Start Date End Date Gulshan Mena MD [address] [place] [address] PCP - General Family Medicine 12/19/09 documented as of this encounter
--- OUTSIDE RECORDS SUMMARY | 2024-02-12 05:05 | XMS_ITS | Encounter Summary ---
Author Organization [facility] Health Address [address] [place] [address] Care Team Providers Care Referral Specialist Name Role Phone Gulshan Mena MD Primary Care Provider [phone] Encounter Details Date Type Department Care Team (Latest Contact Info) Description 04/21/2020 9:37 AM FITNESS WORKER - 04/21/2020 11:59 PM FITNESS WORKER Hospital Encounter [facility] LAB OP DRAW STATION [address] [place] [id number] Michi Longo MD [address] [place] [address] Discharge Disposition: Home or Self Care Social [...] COVID-19? No / Unsure 04/21/2020 9:07 AM FITNESS WORKER documented as of this encounter Medications at [...] 10 MG DOSE) 10 MG/0.1ML nasal spray Sanford 10 mg into the nose 03/18/2020 docusate [...] Reasons: Stuffy Nose SALINE NASAL SPRAY NA Sanford into the nose as needed VITAMIN D [...] Name Priority Date/Time Associated Diagnosis Comments PTT [facility] Routine 04/21/2020 9:45 AM FITNESS WORKER Pre-op testing PT-INR [facility] Routine 04/21/2020 9:45 AM FITNESS WORKER Pre-op testing CBC W AUTO DIFFERENTIAL Routine 04/21/2020 9:45 AM FITNESS WORKER Pre-op testing BASIC METABOLIC PANEL (CALCIUM TOTAL) Routine 04/21/2020 9:45 AM FITNESS WORKER Pre-op testing documented in this encounter Results * PT-INR [facility] (04/21/2020 9:45 AM FITNESS WORKER) PT 13.4 12.1 - 14.8 Seconds 04/21/2020 10:32 AM [facility] INR 1.1 See Comment 04/21/2020 10:32 AM [facility] Comment:The suggested therap eutic range for standard coumadin (warfarin) therapy is an INR of 2.0-3.0. For high-risk patients (Mechanical Mitral Valve Prosthesis, etc.), the suggested prophylactic therapeutic range is an INR of 2.5-3.5. Blood BLOOD SPECIMEN / Unknown Lab Venipuncture / Unknown 04/21/2020 9:45 AM FITNESS WORKER 04/21/2020 10:24 AM FITNESS WORKER Michi Longo MD LAB - COAGULATION O RDERABLES [facility] [address] [place] [address], [facility] [phone] * PTT [facility] (04/21/2020 9:45 AM FITNESS WORKER) APTT 34.7 23.0 - 38.4 Seconds 04/21/2020 10:32 AM [facility] Comment:Suggested therapeuti c range for full dose I.V. unfractionated heparin therapy for venous thromboembolism is 71 to 109 seconds. Blood BLOOD SPECIMEN / Unknown Lab Venipuncture / Unknown 04/21/2020 9:45 AM FITNESS WORKER 04/21/2020 10:24 AM FITNESS WORKER Michi Longo MD LAB - COAGULATION O RDERABLES [facility] [address] [place] [address], [facility] [phone] * CBC WITH DIFFERENTIAL (04/21/2020 9:45 AM FITNESS WORKER) Pathologist [facility] WBC 6.4 3.5 - 10.5 10? 3 /uL 04/21/2020 10:27 AM [facility] RBC 4.64 4.30 - 5.70 10? 6 /uL 04/21/2020 10:27 AM [facility] Hemoglobin 15.1 13.5 - 17.5 g/dL 04/21/2020 10:27 AM [facility] Hematocrit 44.0 39.0 - 50.0 % 04/21/2020 10:27 AM [facility] MCV 94.8 81.0 - 97.0 fL 04/21/2020 10:27 AM [facility] MCH 32.5 28.0 - 34.0 pg 04/21/2020 10:27 AM [facility] MCHC 34.3 32.0 - 36.0 g/dL 04/21/2020 10:27 AM [facility] Platelet Count 214 150 - 400 10? 3 /uL 04/21/2020 10:27 AM [facility] RDW-SD 46.9 36.0 - 50.0 fL 04/21/2020 10:27 AM [facility] RDW-CV 13.5 11.2 - 14.8 % 04/21/2020 10:27 AM [facility] MPV 9.8 9.3 - 12.8 fL 04/21/2020 10:27 AM [facility] nRBC Absolute 0.00 0 10? 3 /uL 04/21/2020 10:27 AM [facility] nRBC Auto 0.0 0 /100 WBC 04/21/2020 10:27 AM [facility] Neutrophils % 53.3 35.0 - 70.0 % 04/21/2020 10:27 AM [facility] Lymphocytes % 33.4 19.7 - 55.1 % 04/21/2020 10:27 AM [facility] Monocytes % 8.9 3.0 - 15.0 % 04/21/2020 10:27 AM [facility] Eosinophils % 3.5 0.0 - 6.0 % 04/21/2020 10:27 AM [facility] Basophil % 0.6 0.0 - 1.5 % 04/21/2020 10:27 AM [facility] Neutrophils Absolute 3.4 1.6 - 7.0 10? 3 /uL 04/21/2020 10:27 AM [facility] Lymphocyte Absolute 2.1 0.8 - 2.9 10? 3 /uL 04/21/2020 10:27 AM [facility] Monocytes Absolute 0.57 0.14 - 0.66 10? 3 /uL 04/21/2020 10:27 AM [facility] Eosinophils Absolute 0.22 0.00 - 0.45 10? 3 /uL 04/21/2020 10:27 AM [facility] Basophils Absolute 0.04 0.00 - 0.06 10? 3 /uL 04/21/2020 10:27 AM [facility] Immature Granulocytes % 0.3 0.0 - 1.0 % 04/21/2020 10:27 AM [facility] Blood BLOOD SPECIMEN / Unknown Lab Venipuncture / Unknown 04/21/2020 9:45 AM FITNESS WORKER 04/21/2020 10:22 AM [facility] Michi Longo MD LAB - HEMATOLOGY OR DERABLES [facility] [address] [place] [address], [facility] [phone] * (ABNORMAL) BASIC METABOLIC PANEL (CALCIUM TOTAL) (04/21/2020 9:45 AM [facility]) BUN 15 7 - 26 mg/dL 04/21/2020 10:45 AM [facility] Creatinine 0.9 0.6 - 1.2 mg/dL 04/21/2020 10:45 AM [facility] Sodium 143 136 - 145 mmol/L 04/21/2020 10:45 AM [facility] Potassium 3.9 3.5 - 4.5 mmol/L 04/21/2020 10:45 AM [facility] Chloride 109(H) 98 - 107 mmol/L 04/21/2020 10:45 AM [facility] CO2 23 22 - 29 mmol/L 04/21/2020 10:45 AM [facility] Glucose 84 70 - 115 mg/dL 04/21/2020 10:45 AM [facility] Calcium 9.2 8.4 - 10.2 mg/dL 04/21/2020 10:45 AM [facility] Anion Gap 15 8 - 18 04/21/2020 10:45 AM [facility] BUN/Creatinine Ratio 17 7 - 23 04/21/2020 10:45 AM [facility] Osmolality Calculated 296 270 - 300 mOsm/kg 04/21/2020 10:45 AM [facility] eGFR >60 >60 mL/min/1.7 3 m2 04/21/2020 10:45 AM [facility] Blood BLOOD SPECIMEN / Unknown Lab Venipuncture / Unknown 04/21/2020 9:45 AM [facility] 04/21/2020 10:22 AM [facility] Michi Longo MD LAB - CHEMISTRY ORD ERABLES [facility] [address] [place] [address], [place] [phone] documented in this encounter Visit Diagnoses Diagnosis Pre-op testing- Primary Preoperative examination, unspecified documented in this encounter Care Teams Referral Specialist Relationship Specialty Start Date End Date Gulshan Mena MD [address] [place] [address] PCP - General Family Medicine 12/19/09 documented as of this encounter
--- OUTSIDE RECORDS SUMMARY | 2024-02-12 05:05 | XMS_ITS | Encounter Summary ---
Author Organization [facility] Health Address [address] [facility] [place] [address] Care Team Providers Care Day Camp Counselor Name Role Phone Gulshan Mena MD Primary Care Provider [phone] Reason for Visit * Reason Comments Post-Op Encounter Details Date Type Department Care Team (Late st Contact Info) Description 06/09/2020 8:45 AM CDT Office Visit [facility] [address] [place] [address], [place] [id number] Michi Longo MD [address] [place] [address] [place] [address] Status post VNS (vagus nerve stimulator) placement [...] Sign Reading Time Taken Comments Blood Pressure 124/84 06/09/2020 9:02 AM CDT Pulse 79 06/09/2020 9:02 AM CDT Temperature 36.2 ??C (97.2 ??F) 06/09/2020 9:02 AM CD T Respiratory Rate 20 06/09/2020 9:02 AM CDT Oxygen Saturation 97% 06/09/2020 9:02 AM CDT Inhaled Oxygen Concentration - - Weight 82.6 kg (182 lb) 06/09/2020 9:02 AM CDT Height 170.2 cm (5' 7 ) 06/09/2020 9:02 AM CDT Body Mass Index 28.51 06/09/2020 9:02 AM CDT documented in this encounter Patient Instructions * Patient Instructions* Felicitas Chou - 06/09/2020 9:09 AM CDT Follow up in 3 months for wound check For any questions please call Felicitas [phone] documented in this encounter Progress Notes * Michi Longo MD - 06/09/2020 9:10 AM CDT Neurosurgery Clinic Progress Note Chief Complaint (CC): follow up revision vagal nerve stimulator generator HISTORY OF PRESENT ILLNESS (HPI): This patient is a 35 year old male with a 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 The patient was accompanied on today's visit by one of the care givers in his well surveying engineer care facility who indicated that the patient had three seizures yesterday, and that Dr. Noble, activated the system yesterday. The system was left off postop as the system was completely non-functional when he presented to us on 04/21. Dr. Noble will see the patient again in three weeks for further programming. The chest walland anterior neck surgical scars??are??without signs of infection. Past Medical History: Diagnosis Date ??? ADHD (attention deficit hyperactivity disorder) ??? Aggression - adjustment disorder ??? Autism ??? Constipation ??? Convulsions last seizure 4/13/21 ??? GERD (gastroesophageal reflux disease) ??? [place]-Gastaut syndrome, intractable, with status epilepticus ??? MR [...] of systems was negative. PHYSICAL EXAM BP 124/84 (BP SITE: LEFT ARM) Pulse 79 Temp 97.2 ??F (36.2 ??C) (Oral) Resp 20 Ht 1.702 m (5' 7 ) Wt 82.6 kg (182 lb) SpO2 97% BMI 28.51 kg/m2 General: NAD Cardiovascular: warm, well profused Respiratory: non-labored breathing Abdominal: S, NT, ND Integument: no lesions found Vascular: capillary refill <3 seconds Neuro: Alert, essentially no speech clear, pupils equal and reactive to light, extra-occular muscles intact, face symmetric, does not follow commands no apparent sensory deficit. Left chest wound well healed without erythema or swelling. RADIOLOGICAL REVIEW: No additional films taken on this visit. Assessment/Plan: Travis Beebe is a 35 year old male who is status post revision of his VNS battery currently doing well. .We will see him in follow up one last time in three months for a wound check. Michi Longo MD 06/09/2020 9:10 AM documented in this encounter Plan of Treatment Not on file documented as of this encounter Visit Diagnoses Diagnosis Status post VNS (vagus nerve stimulator) placement- Primary Other postprocedural status documented in this encounter Care Teams Day Camp Counselor Relationship Specialty Start Date End Date Gulshan Mena MD [address] [place] [address] PCP - General Family Medicine 12/19/09 documented as of this encounter
--- OUTSIDE RECORDS SUMMARY | 2024-02-12 05:05 | XMS_ITS | Encounter Summary ---
Author Organization [facility] Address [address] [facility] [place] [address] Care Team Providers Care Charge Weigher Name Role Phone Gulshan Mena MD Primary Care Provider [phone] Encounter Details Date Type Department Care Team (Late st Contact Info) Description 05/07/2018 12:55 PM CDT Anesthesia Event [facility] [address] [place] [phone] Jimi Kemp MD [facility] DEPT OF ANESTHESIOLOGY [place], [place] Anesthesia Record Procedure Summary Procedure Name Responsible Anesthesiologist Anesthesia Start Time Anesthesia Stop Time VAGAL NERVE NEUROSTIMULATOR GENERATOR REPLACEMENT (Left: Neck) Events No events on file. Meds * Agents No agents on file. * Blood No blood administrations on file. Lines, Drains, and Airways No LDAs on file. documented in this encounter Social History Tobacco [...] COVID-19? No / Unsure 04/21/2020 9:07 AM ANESTHETIC ASSISTANT documented as of this encounter Consult Notes * Alfred Hoyos MD - 04/29/2018 12:04 PM CDT ANESTHESIA PREOPERATIVE EVALUATION NOTE Procedure: VAGAL NERVE NEUROSTIMULATOR GENERATOR REPLACEMENT (Left Neck) Vitals: No data found. ANESTHESIA PRE-EVALUATION NOTE History of Present Illness: This is a 33 y.o. Male with PMHx of Emmett-Gastaut syndrome, autism spectrum disorder, mental retardation, refractory generalized non-convulsive epilepsy, currently on four different antiepileptic medication, who underwent a left sided vagal nerve stimulator (VNS) placement in 2013. Currently, seizures are not controlled on previous stimulator placement and now he is scheduled for replacement with Dr. Longo. Review of Systems: History of anesthetic complications: No GERD: No Poor Exercise Tolerance: No Recent Chest Pain: No Shortness of Breath: No AICD/Pacemaker: No Renal Disease: No Diagnostic Tests: ECG(s) reviewed: Yes Chest X-Ray(s) reviewed: Yes. Lab(s) reviewed: Yes. Other Findings: 04/29/18 ECG NSR All labs and CXR drawn in PAT clinic reviewed and normal ANESTHESIA PLAN ASA Score: 3 NPO Status: Patient instructed to be NPO after midnight Anesthesia Plan: general ETT Planned Induction: intravenous Planned Postop Destination: PACU Anesthetic plan was discussed with: other - comments (prison caretakers: with consent given by mother) BMI, Height, Weight Tobacco History Estimated body mass index is 29.86 kg/(m^2) as calculated from the following: Height as of an earlier encounter on 04/29/18: 1.676 m (5' 6 ). Weight as of an earlier encounter on 04/29/18: 83.9 kg (185 lb). History Smoking Status ??? Never Smoker Smokeless Tobacco ??? Never Used Alcohol History Drug History History Alcohol Use No History Drug Use No Outpatient Medications: Inpatient Medications: No outpatient prescriptions have been marked as taking for [facility] No current facility-administered medications for this visit. Allergies: Allergies Allergen Reactions ??? Amoxicillin ??? Dilantin [Phenytoin Sodium] ??? Tegretol [Carbamazepine] Problem List: Patient Active Problem List Diagnosis Date Noted ??? Status post VNS (vagus nerve stimulator) placement 10/06/2017 Priority: Not Prioritized ??? 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 Priority: Not Prioritized Overview: Infantile autism ??? Seizure disorder, complex partial, with intractable epilepsy 10/15/2013 Priority: Not Prioritized ??? Development delay 10/14/2013 Priority: Not Prioritized ??? Intractable Emmett-Gastaut syndrome 10/14/2013 Priority: Not Prioritized ??? Refractory generalized nonconvulsive epilepsy 07/16/2013 Priority: Not Prioritized Overview: Refractory generalized nonconvulsive epilepsy ??? Seizure 07/16/2013 Priority: Not Prioritized Overview: Seizure ??? Intractable [place]-Gastaut syndrome without status epilepticus 10/20/2012 Priority: Not Prioritized Overview: [place]-Gastaut syndrome ??? Active autistic disorder 07/10/2012 Priority: Not Prioritized Overview: Autism disorder ??? Developmental delay 07/10/2012 Priority: Not Prioritized Overview: Development delay ??? ADHD (attention deficit hyperactivity disorder) 08/17/2009 Priority: Not Prioritized ??? Intractable epilepsy 08/17/2009 Priority: Not Prioritized ??? Sleep disorder 08/17/2009 Priority: Not Prioritized ??? Static encephalopathy 08/17/2009 Priority: Not Prioritized Medical History: Past Medical History: Diagnosis Date ??? ADHD (attention deficit hyperactivity disorder) ??? Aggression - adjustment disorder ??? Autism ??? MR (mental retardation) severe ??? Seizure disorder last one 02/13/2014 ??? Static encephalopathy Surgical History: Past Surgical History: Procedure Laterality Date ??? EGD 12/20/09 Marcu--gastritis ??? OTHER SURGERY 10/2013 V and S inplanted Lab Results: PAT Evaluation summary: I. Perioperative Cardiac Risk Index Stratification based on 2014 ACC/AHA Guidelines Perioperative risk of a Major Adverse Cardiac Event (MACE). Add one point (0-6) for each positive RCRI (Revised Cardiac Risk Index) Is the surgery high-risk? no Intraperitoneal Intrathoracic Major vascular Neurosurgical spine or craniotomy History of ischemic heart disease? no History of ID History of positive stress test Current chest pain considered due to myocardial ischemia Use of nitrate therapy ECG with pathologic Q waves History of congestive heart failure? no Pulmonary edema, bilateral rales or S3 gallop Paroxysmal nocturnal dyspnea CXR showing pulmonary vascular congestion History of cerebrovascular disease? no Prior TIA or stroke Carotid bruit on exam? no Copy and paste any recent carotid duplex results here Insulin-dependent Diabetes? no Preoperative creatinine > 2 mg/dl? no RCRI correlation with MACE (www.mdcalc.com/taqqdyz-qxwpqjx-efen-inwmj-egp-egrgidvuq-risk, originally validated by Eusebio T. Circulation. 1999;100:5314-0108) 0 Points - 0.4% risk 1 Point - 0.9% risk 2 Points - 6.6% risk 3 or more Points - 11% risk This patient has 0 RCRI and the risk of MACE= 0.4 % If MACE < 1%, no further testing required. Proceed to surgery. Patient is at low risk of MACE. If MACE > 1% Elevated risk. Need to assess the patient's functional capacity. 4 METs = Can walk up a flight of steps or a hill or walk on level ground at 3 mph If > 4 METs. Proceed to surgery. If < 4 METs or unknown functional capacity then discuss with attending, as further workup may beindicated. (Source: 2014 ACC/AHA Guideline on Perioperative Cardiovascular Evaluation and Management of Patients Undergoing Noncardiac Surgery) II. Consults: Cardiology / medicine/ other risk stratification or consults requested: no (date and results): III. CIEDs (cardiovascular implantable electronic device) Patient does not have any CIEDs If yes then complete as below and place interrogation report in chart Information needed (clinical laboratory science professor, mode, indication for CIED, battery life, magnet function, PM dependence): Call PAT director or board worker to discuss any patient with a CIED Timing of interrogation should be: Within 1 year for PM and Within 6 months for AICD (Source: 2010 The Heart Rhythm Society (HRS)/[place] Society of Anesthesiologists (ASA) Expert Consensus Statement on the Perioperative Management of Patients with Implantable Defibrillators, Pacemakers and Arrhythmia Monitors: Facilities and Patient Management) IV. Anticoagulants Is patient receiving antiplatelet/ anticoagulant medications. no If yes then describe the periop plan / last dose / bridging, etc) V. Previous transfusions / blood products If high risk procedure or risk of blood loss > 250 ml, then order: - 1st Type and Screen in PAT AND 2nd Type and Screen for DOS OR - If patient is not seen in PAT then order a T&S for DOS (We will need an additional re-type which blood bank will automatically send to [facility]. [facility] requires a 2nd confirmatory T&S before releasing crossmatched blood) Previous blood transfusion? no - If patient had a previous transfusion and likelihood of surgical blood loss is >250ml or a high risk procedure, then every attempt should be made to obtain a T&S in PAT, otherwise patient should be instructed to arrive early or not scheduled as a first start case. Please call pens and pencils dipper to discuss plan and document here: Patients with previous transfusions may have developed alloantibodies to donor RBC surface antigens, which may cause hemolytic or delayed hemolytic transfusion reactions upon subsequent exposure to donor PRBCs. . Most recent EKG 04/29/18 NSR EKG needed with 3 months if: (based upon 2014 ACC / AHA guidelines) ASA > 2 OR any RCRI (including high risk surgery) VII. Additional testing needed within 1 month prior to DOS (if possible, else on DOS) - CBC w/o diff if ASA >2 OR expected blood loss >250 OR previously abnormal - BMP is ASA >2 OR taking diuretics, K+ supplements, FANNIE-I, ARBs OR any RCRI (including high risk procedure) - for patients with DM, refer to PCP or project management analyst for BG >200 - CMP (instead of BMP) for patient with chronic liver disease or previously abnormal -PT/ PTT/ INR if recent use of anticoagulants (VKAs, DTIs, fXa-I) OR vascular procedures Additional testing needed on DOS as below: - EPOC blood glucose on DOS - EPOC whole blood K+ for patient with ESRD or poorly controlled K+ - any test above not previously available in PAT Any additional tests ordered by the surgical team: yes - CBC, BMP, PT/INR, UA (specify test and date with any relevant results, ie urine cx, UDS, etc.) Summary: Travis Beebe is a 33 year old @GENDER@ presenting for VAGAL NERVE NEUROSTIMULATOR GENERATOR REPLACEMENT (Left Neck). They have an ASA score of ASA 3 and 0 RCRI, which correlates with a MACE score of _0.4____%. They was medically optimized for this procedure. (If not, explain here:) Labs/ tests ordered for DOS: (please list here): Preoperative plan was discussed w/ PAT attending (04/29/18 Dr. Siu). (please note that ALL chartsmust be discussed with the PAT director or designated person) PAT evaluation is complete including review of all pending consults, CIEDs, review of labs ordered in PAT. (Please note that the evaluation is NOT complete until all the above have been reviewed) Jimi Kemp MD 04/29/2018 1:10 PM Patient is non-verbal and unable to give consent. Mother is POA, multiple attempts made to contact her and unable to reach her so case was cancelled. Alfred Hoyos MD 05/07/2018 1:53 PM documented in this encounter Plan of Treatment Not on file documented as of this encounter Visit Diagnoses Not on filedocumented in this encounter Care Teams Charge Weigher Relationship Specialty Start Date End Date Gulshan Mena MD [address] [place] [address] PCP - General Family Medicine 12/19/09 documented as of this encounter
--- OUTSIDE RECORDS SUMMARY | 2024-02-12 05:05 | XMS_ITS | Encounter Summary ---
Author Organization [facility] Health Address [address] [facility] [place] [address] Care Team Providers Care High [employer] Assistant Football Coach Name Role Phone Gulshan Mena MD Primary Care Provider Reason for Visit * Reason Onset Date Comments Reminder Call 07/23/2018 confirmed appt a nd details w/pt mother Encounter Details Date Type Department Care Team (Late st Contact Info) Description 07/23/2018 Telephone [facility] Neurosurgery [address] [place] [address] Michi Longo MD [address] [address] Reminder Call (confirmed appt and details w/pt mother ) Social History Tobacco Use Types Packs/Day Years [...] * Telephone Encounter - Bruna Atkins - 07/23/2018 2:59 PM CDT Confirmed appt and details w/pt mother documented in this encounter Plan of Treatment Not on file documented as of this encounter Visit Diagnoses Not on filedocumented in this encounter Care Teams High School Assistant Football Coach Relationship Specialty Start Date End Date Gulshan Mena MD [address] [place] [address] PCP - General Family Medicine 12/19/09 documented as of this encounter
--- OUTSIDE RECORDS SUMMARY | 2024-02-12 05:05 | XMS_ITS | Encounter Summary ---
Author Organization [facility] Address [address] [place] [address] Care Team Providers Care Electronic Development Technician Name Role Phone Gulshan Mena MD Primary Care Provider [phone] Reason for Visit * Reason Onset Date Comments Follow-up 05/06/2018 Encounter Details Date Type Department Care Team (Late st Contact Info) Description 05/06/2018 Telephone [facility] [address] [place], [place] [id number] Felicitas Chou Follow-up Social History Tobacco Use [...] Telephone Encounter - Felicitas Chou - 05/06/2018 2:14 PM CDT Left patients mom message who is patients POA for consent to call back so we can get consent for tomorrows procedure. Patient mom name Mary Beebe [phone] documented in this encounter Plan of Treatment Not on file documented as of this encounter Visit Diagnoses Not on filedocumented in this encounter Care Teams Electronic Development Technician Relationship Specialty Start Date End Date Gulshan Mena MD [address] [place] [address] PCP - General Family Medicine 12/19/09 documented as of this encounter
--- OUTSIDE RECORDS SUMMARY | 2024-02-12 05:05 | XMS_ITS | Encounter Summary ---
Author Organization [facility] Address [address] [place] [address] Care Team Providers Care Beauty Therapist Name Role Phone Gulshan Mena MD Primary Care Provider [phone] Reason for Visit * Auth/Cert Specialty Diagnoses / Procedures Referred By Contac t Referred To Contact Diagnoses Battery end of life of vagus nerve stimulator end of VNS battery life Procedures REPLACEMENT CRANIAL NEUROSTIMULATOR GENERATOR/BATTERY Referral ID Status Reason Start Date Expiration Date Visits Re quested Visits Authorized [id number] 1 1 Encounter Details Date Type Department Care Team (Late st Contact Info) Description 05/25/2020 9:29 AM CDT Anesthesia Event [facility] [address] [place] [id number] Maura Campbell MD [address] [place] [address] Melyssa Pat, LINE MAINTAINER-TRANSPLANT SURGEON [address] [place] [address] Anesthesia Record Procedure Summary Procedure Name Responsible Anesthesiologist Anesthesia Start Time Anesthesia Stop Time Vagus nerve stimulator generator replacement (Left) Maura Campbell MD 05/25/20 0929 05/25/20 1043 Events Date Time Event Comment 05/25/2020 0853 0929 Pt In Room 0929 An Start 0929 An Start Data 0933 Anes Timeout 0934 Induction 0938 An Intubation 0942 PT Reassessment 0944 Anes Ready 0958 Time Out Anesthesia part icipated in timeout at the time documented in the record by nursing 0959 Proc Start 1008 Local Infiltration by Surgeo n 1029 Proc Stop 1033 An Emergence 1037 Extubation 1039 an stop data 1039 Pt out of Room 1039 ANPTO2 1043 An Stop Meds Name Total midazolam 2 mg/2mL injection 1 mg fentaNYL 100 mcg/2ml injection 50 mcg lidocaine PF 2% 80 mg propofol 200mg/20mL injection 150 mg rocuronium 50 mg/5 mL injection 40 mg ePHEDrine 25 mg/5 mL prefilled syringe 2 0 mg ondansetron 4mg/2mL injection 4 mg dexamethasone 10 mg/ml PF injection 4 mg sugammadex 200 mg/2mL injection 168 mg ceFAZolin 2,000 mg IVPB 2 g labetalol 5 mg/mL injection 10 mg lactated ringers infusion 0 mL * Agents Name Insp. N2O Exp. Sevoflurane Exp. N2O O2 Air Insp. Sevoflurane * Blood No blood administrations on file. Lines, Drains, and Airways Type Details Placement Removal Peripheral IV Date: 05/25/20; Time : 0838; Orientation: Anterior, Left; Tolerance: Well 05/25/20 0838 by Maura Sanchez RN 05/25/20 1253 by Maura Sanchez RN ETT Date: 05/25/20; Time : 0938; Placed By: CÉSAR Shah; Vent: easy mask; Induction: Standard IV; Blade Type: Beatriz; Blade Size: 4; Laryngoscopy View: Grade 1 (full cords); Intubation Adjuncts: Stylet; Tube: Endotracheal Tube; Placement: Oral; Tube Type: Cuffed-inflated; Tube Size(mm): 8 MM; Depth of Insertion: 23.5 CM; Attempts: 1; Cuff Infated: Air; Verified By: Direct visualization, Bilateral breath sounds, Chest Auscultation, CO2 Monitor 05/25/20 0938 by Maura Max APRN-CRNA 05/25/20 1039 by Maura Max APRN-CRNA Procedural Site (Incision) 05/25/20; 1009; Left; Chest; 05/25/20; 1853 05/25/20 1009 by Sue Carson RN 05/25/20 1853 by Generic, Auto Release documented in this encounter Social History Tobacco Use Types Packs/Day Years Used Date Smoking Tobacco: Never Smokeless Tobacco: Never Alcohol Use Standard Drinks/Week Comments No 0 (1 standard drink = 0.6 oz pur e alcohol) Sex and Gender Information Value Date Recorded Sex Assigned at Not on file Gender Identity Not on file Sexual Orientation Not on file documented as of this encounter Progress Notes * Maura Campbell MD - 05/25/2020 11:42 AM CDT ANESTHESIA POSTOP EVALUATION NOTE Procedure: Vagus nerve stimulator generator replacement (Left ) Travis Beebe is a 35 year old male Patient Vitals for the past 6 hrs: BP Temp Pulse Resp SpO2 Pain Scale/Observation 05/25/20 0808 121/80 -- -- -- -- -- 05/25/20 0809 -- -- -- -- 99 % -- 05/25/20 0812 -- -- 61 9 99 % -- 05/25/20 0813 -- -- 59 (!) 8 (!) 88 % -- 05/25/20 0816 -- 97.6 ??F (36.4 ??C) -- -- -- B 05/25/20 1042 144/89 97.6 ??F (36.4 ??C) 86 12 100 % -- 05/25/20 1045 146/90 -- 82 13 100 % -- 05/25/20 1050 143/90 -- 88 19 100 % -- 05/25/20 1055 143/89 -- 85 13 100 % -- 05/25/20 1100 145/87 -- 87 16 100 % -- 05/25/20 1105 133/83 -- 80 13 99 % -- 05/25/20 1110 135/85 -- 81 11 98 % -- 05/25/20 1115 114/80 -- 90 14 99 % -- 05/25/20 1120 113/85 97.8 ??F (36.6 ??C) 76 16 96 % -- Anesthesia Type: general ETT Pre-op Diagnosis Codes: * Battery end of life of vagus nerve stimulator [Z45.42] Mental Status: awake and sufficiently recovered from acute administration of anesthesia to participate in the evaluation Respiratory Function: natural Cardiac Function: stable Postop Pain: adequate Postop Hydration: adequate Postop Nausea: none Assessment: no apparent anesthetic complications, patient tolerated procedure well and no evidence of recall Patient Disposition: Release from Anesthesia Care COMPLICATIONS: No complications documented. 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 He is scheduled for VNS generator replacement with Dr. Longo. Medical history is significant for Emmett-Gastaut syndrome, autism spectum disorded, mental retardation, and medically-refractory generalized non-convulsive epilepsy status post vagal nerve stimulator (VNS) placement in 2013 and revision on 05/16/18, GERD Allergies- Penicillins, amoxicillin, Tegretol, Dilantin Patient accompanied by Attendant from [facility]: Mother has consented via surgeon Physical Exam: Heart: normal - S1 S2 Lungs: clear to ausculation bilaterally Abdomen Exam: normal Physical Exam Additional Comments: Calm in pre-post during interview. Follows staff with his gaze. Attendant describes his seizures as extending of his legs and arms. No real tonic-clonic movements.Will still direct his gaze to attend to his enviroment. Review of Systems: GERD: No Diagnostic Tests: ECG(s) reviewed: Yes (04/21/20 NORMAL SINUS RHYTHM 67 bpm) Chest X-Ray(s) reviewed: Yes (04/21/20). Lab(s) reviewed: Yes (04/21/20 BMP, CBC, PT/INR, PTT without significant findings). Other Findings: 04/21/20 CT NECK IMPRESSION: ?? 1.Vagal nerve stimulator superimposes the left chest with leads extending into the left neck and terminating in the left neck soft tissue. 2.No acute pulmonary process. ?? 04/21/20 XR CHEST IMPRESSION: ?? 1.Vagal nerve stimulator superimposes the left chest with leads extending into the left neck and terminating in the left neck soft tissue. 2.No acute pulmonary process. ANESTHESIA PLAN ASA Score: 3 NPO Status: Patient instructed to be NPO after midnight Anesthesia Plan: general Planned Induction: intravenous Planned Postop Destination: PACU BMI, Height, Weight Tobacco History Estimated body mass index is 28.98 kg/m?? as calculated from the following: Height as of 07/24/18: 1.702 m (5' 7 ). Weight as of 04/21/20: 83.9 kg (185 lb). Social History Tobacco Use Smoking Status Never Smoker Smokeless Tobacco Never Used Alcohol History Drug History Social History Substance and Sexual Activity Alcohol Use No Social History Substance and Sexual Activity Drug Use No Outpatient Medications: Inpatient Medications: Outpatient Medications Marked as Taking for the 05/25/20 encounter (Hospital Encounter) Medication Sig Last Dose ??? bisacodyl Insert 10 mg into the rectum as needed for Constipation ??? bisacodyl EC Take 5 mg by mouth once as needed for Constipation Reasons: 5 pm on day 4 of No BM ??? busPIRone 1 Tab 3 times daily. ??? cloBAZam Take 20 mg by mouth once daily Reasons: At bedtime ??? cloNIDine Take 0.3 mg by mouth once daily ??? Valtoco 10 MG Dose [place] 10 mg into the nose ??? docusate sodium Take 100 mg by mouth 2 times daily. ??? famotidine Take 20 mg by mouth 2 times daily ??? Fexofenadine HCl (MUCINEX ALLERGY PO) Take 400 mg by mouth as needed ??? lacosamide Take 100 tablets by mouth 2 times daily ??? lamoTRIgine 2 Tabs 3 times daily. ??? loperamide Take 2 mg by mouth as needed for Diarrhea Reasons: Diarrhea ??? loratadine Take 10 mg by mouth daily. ? ? Magnesium Hydroxide (MILK OF MAGNESIA PO) Take 30 mL by mouth every Saturday & Saturday ??? multivitamin daily Take 1 Tab by mouth daily with food. ??? Nutritional Supplements (ENSURE NUTRITION SHAKE PO) Take by mouth as needed ??? propranolol Take 80 mg by mouth once ??? pseudoephedrine Take 10 mg by mouth as needed for Nasal Congestion Reasons: Stuffy Nose ??? SALINE NASAL SPRAY NA [place] into the nose as needed ??? VITAMIN D PO Take 50,000 Units by mouth every 14 days Take one tab weekly ??? zonisamide Take 100 mg by mouth 2 times daily No current facility-administered medications for this encounter. Allergies: Allergies Allergen Reactions ??? Penicillins Urticaria ??? Amoxicillin Urticaria ??? Tegretol [Carbamazepine] Angioedema meds given no artificial airway needed ??? Dilantin [Phenytoin Sodium] Urticaria Relevant Problems No relevant active problems Problem List: Patient Active Problem List Diagnosis Date Noted ??? Status post VNS (vagus nerve stimulator) placement 10/06/2017 Priority: Not Prioritized ??? 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 Priority: Not Prioritized Overview: Infantile autism ??? Seizure disorder, complex partial, with intractable epilepsy 10/15/2013 Priority: Not Prioritized ??? Development delay 10/14/2013 Priority: Not Prioritized ??? 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 Refractory generalized nonconvulsive epilepsy 07/16/2013 Priority: Not Prioritized Overview: Refractory generalized nonconvulsive epilepsy Overview: Refractory generalized nonconvulsive epilepsy ??? Seizure 07/16/2013 Priority: Not Prioritized Overview: Seizure Overview: Seizure ??? 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 Active autistic disorder 07/10/2012 Priority: [...] 10/2013 V and S inplanted Lab Results: Recent Labs Component Name 04/21/20 0945 WBC 6.4 RBC 4.64 HCT 44.0 HGB 15.1 PLTCOUNT 214 MCV 94.8 MCH 32.5 MCHC 34.3 MPV 9.8 Recent Labs Component Name 04/21/20 0945 POTASSIUM 3.9 CALCIUM 9.2 CO2 23 GLUCOSE 84 BUN 15 CREATININE 0.9 Recent Labs Component Name 04/21/20 0945 PTT 34.7 PT 13.4 INR 1.1 No results found for requested labs within last 120 days. Recent Labs Result Component Current Result Anion Gap 15 (04/21/2020) eGFR >60 (04/21/2020) PAT Evaluation summary: I. Perioperative Cardiac Risk Index Stratification based on 2014 ACC/AHA Guidelines Perioperative risk of a Major Adverse Cardiac Event (MACE). Add one point (0-6) for each positive RCRI (Revised Cardiac Risk Index) Is the surgery high-risk? no Intraperitoneal Intrathoracic Major vascular Neurosurgical spine or craniotomy History of ischemic heart disease? no Recent IL with 60 days = very high risk of MACE, requires cardiac consultation History of IL > 60 days History of positive stress test Current chest pain considered due to myocardial ischemia Use of nitrate therapy ECG with pathologic Q waves History of congestive heart failure? no Pulmonary edema, bilateral rales or S3 gallop Paroxysmal nocturnal dyspnea CXR showing pulmonary vascular congestion History of cerebrovascular disease? no Prior TIA or stroke Carotid bruit on exam? Not seen in PAT clinic Copy and paste any recent carotid duplex results here Insulin-dependent Diabetes? no Preoperative creatinine > 2 mg/dl? no RCRI correlation with MACE (www.Sitedeskalc.com/jvombbm-rxfcpcv-mnij-nxlbz-wxx-gpogkhhpw-risk, originally validated by Antwan Kaplan. Circulation. 1999;100:7580-7798) 0 Points - 0.4% risk 1 Point [...] other risk stratification or consults requested: no III. CIEDs (cardiovascular implantable electronic device) Patient does not have any CIEDs IV. Anticoagulants Is patient receiving antiplatelet/ anticoagulant medications. no V. Previous transfusions / blood products Previous blood transfusion? Unknown . Most recent EKG 04/21/20 NORMAL SINUS RHYTHM 67 bpm VII. Additional testing needed within 1 month prior to DOS (if possible, else on DOS) - CBC w/o diff if ASA >2 OR expected blood loss >250 OR previously abnormal - BMP is ASA >2 OR taking diuretics, K+ supplements, FANNIE-I, ARBs OR any RCRI (including high risk procedure) - for patients with DM, refer to PCP or rheostat assembler for BG >200 - CMP (instead of [...] additional tests ordered by the surgical team: COVID- surgeon reviews independently Summary: Travis Beebe is a 35 year old male presenting for Vagus nerve stimulator generator replacement (Left ). He has an ASA score of ASA 3 and 0 RCRI, which correlates with a MACE score of 0.4%. He is medically optimized for this procedure. Final evaluation pending evaluation by Body Repairer on DOS. Labs/ tests ordered for DOS: none Preoperative plan was not discussed w/ PAT attending. To be discussed DOS in ACU. COVID Testing- completed 05/23/20 at Facility. Facility to bring in copy of negative result on DOS. PAT evaluation is complete including review of all pending consults, CIEDs, review of labs ordered in PAT. >>Mother is Legal Guardian (Mary) [phone] documented in this encounter Procedure Notes * Maul, MauraCÉSAR Hooks - 05/25/2020 9:52 AM CDTAssociated Order(s): ETT Placement Endotracheal Tube Placement: Patient Location: OR. Intubation Event Date/Time: 05/25/2020 9:38 AM Procedure: intubation ([id number]). Procedure Section: Sedation: under general anesthesia. Indications for Airway Management: anesthesia Induction: standard IV Mask Ventilation: easy. Blade [...] auscultation and CO2 monitor Tube secured with: adhesive tape. Dentition unchanged? Yes Difficult Airway? No. Procedure Start Time: 05/25/2020 9:38 AM. Staff Section Anesthesia Provider: Maura Max APRN-CRNA, Performed the procedure Provider #1: Maura Campbell MD. documented in this encounter Miscellaneous Notes * Anesthesia Transfer of Care - Connie MuñizDO - 05/25/2020 10:43 AM CDT ANESTHESIA TRANSFER OF CARE NOTE Today's Date: 05/25/2020 Date of : 1985 Patient: Travis Beebe Procedure(s): Vagus nerve stimulator generator replacement Surgeon(s): Primary: Michi Longo MD Resident - Assisting: Estefany Gusman MD Preop Diagnosis: Pre-op Diagnois: * Battery end of life of vagus nerve stimulator [Z45.42] Pre-op Meds (From admission, onward) Start Stop Status Route Frequency Ordered 05/25/20 0800 lactated ringers infusion -- Dispensed IV PRE-OP CONTINUOUS 05/25/20 0753 05/25/20 1008 lidocaine 1% (Xylocaine-MPF) - EPINEPHrine 1:100,000 injection -- Sent PRN 05/25/20 1008 05/25/20 1008 vancomycin (Vancocin) injection -- Sent PRN 05/25/20 1008 Post-op Diagnosis: * Battery end of life of vagus nerve stimulator [Z45.42] . Allergies Allergen Reactions ??? Penicillins Urticaria ??? Amoxicillin Urticaria ??? Tegretol [Carbamazepine] Angioedema meds given no artificial airway needed ??? Dilantin [Phenytoin Sodium] Urticaria Vitals: Patient Vitals for the past 3 hrs: BP Temp Pulse Resp SpO2 05/25/20 0816 -- 97.6 ??F (36.4 ??C) -- -- -- 05/25/20 0813 -- -- 59 (!) 8 (!) 88 % 05/25/2012 -- -- 61 9 99 % 05/25/20 0809 -- -- -- -- 99 % 05/25/20 0808 121/80 -- -- -- -- Lines, Drains, and Airways Type Details Placement Removal Peripheral IV Date: 05/25/20; Time: 837; Orientation: Anterior, Left; Location: Wrist; Gauge: 22 Gauge ; Tolerance: Well 05/25/20837 by Maura Sanchez RN ETT Date: 05/25/20; Time: 937; Placed By: CÉSAR Shah; Vent: easy mask; Induction: Standard IV; Blade Type: Beatriz; Blade Size: 4; Laryngoscopy View: Grade 1 (full cords); Intubation Adjuncts: Stylet; Tube: Endotracheal Tube; Placement: Oral; Tube Type: Cuffed-inflated; Tube Size(mm): 8 MM; Depth of Insertion: 23.5 CM; Attempts: 1; Cuff Infated: Air; Verified By: Direct visualization, Bilateral breath sounds, Chest Auscultation, CO2 Monitor 05/25/20 09 by Maura Max APRN-CRNA 05/25/20 1039 by Maura Max APRN-CRNA Intraprocedure I/O Totals None Patient Transfer Location: PACU Transport Airway: spontaneous respirations and supplemental O2 Transport Monitoring: continuous pulse oximetry and heart rate Complications: None Handoff Given? Yes Checklist or Protocol - The honeycutt handoff elements that must be included in the transfer of care checklist include: 1. Identification of patient. 2. Identification of responsible practitioner (PACU nurse or advanced practitioner). 3. Discussion of pertinent medical history. 4. Discussion of the surgical/procedure course (procedure, reason for surgery, procedure performed). 5. Intraoperative anesthetic management and issue/concerns. 6. Expectations/Plans for the early post-procedure period. 7. Opportunity for questions and acknowledgement of understanding of report from the receiving PACUteam. Connie Muñiz DO documented in this encounter Plan of Treatment Not on file documented as of this encounter Procedures Procedure Name Priority Date/Time Associated Diagnosis Comments ENDOTRACHEAL TUBE NOTE Routine 05/25/2020 9:52 AM CDT documented in this encounter Results * ETT LINE PERFORMABLE (05/25/2020 9:52 AM CDT) Narrative Maura Max APRN-CRNA - 05/25/2020 9:52 AM CDT Maura Max APRN-CRNA ? 05/25/2020 ??9:52 AM Endotracheal Tube Placement: ? Patient Location: OR. Intubation Event Date/Time: ??05/25/2020 9:38 AM Procedure: intubation ([id number]). Procedure Section: ?? Sedation: under general anesthesia. [...] AM. Staff Section ?? Anesthesia Provider: Maura Max APRN-CRNA, Performed the procedure Provider #1: Maura Campbell MD. Maura Campbell MD GENERAL ANESTHESIA ORDERABLES documented in this encounter Visit Diagnoses Not on filedocumented in this encounter Administered Medications Inactive Administered Medications - up to 3 most recent administrations Medication Order MAR Action Action Date Dose Rate Site ceFAZolin (Ancef) 2,000 mg in 50 ml IVPB Intravenous, PRN, Starting on Sat05/25/20 at 0947, Until Sat05/25/20 at 1043, Anesthesia Intra-op $ Given 05/25/2020 9:47 AM CDT 2 g Dexamethasone Sod Phosphate PF injection Intravenous, PRN, Starting on Sat05/25/20 at 1000, Until Sat05/25/20 at 1043, Anesthesia Intra-op $ Given 05/25/2020 10:00 AM CDT 4 mg ePHEDrine 50-0.9 MG/10ML-% prefilled syringe Intravenous, PRN, Starting on Sat05/25/20 at 1004, Until Sat05/25/20 at 1043, Anesthesia Intra-op $ Given 05/25/2020 10:07 AM CDT 10 mg $ Given 05/25/2020 10:04 AM CDT 10 mg fentaNYL (PF) (Sublimaze) injection Intravenous, PRN, Starting on Sat05/25/20 at 0934, Until Sat05/25/20 at 1043, Anesthesia Intra-op $ Given 05/25/2020 9:34 AM CDT 50 mcg labetalol (Normodyne; Trandate) injection Intravenous, PRN, Starting on Sat05/25/20 at 1015, Until Sat05/25/20 at 1043, Anesthesia Intra-op $ Given 05/25/2020 10:15 AM CDT 10 mg lactated ringers infusion at 20 mL/hr, Intravenous, PRE-OP CONTINUOUS, Starting on Sat05/25/20 at 0800, Until Sat05/25/20 at 1353, Pre-op Rate Change 05/25/2020 10:42 AM CDT 800 mL /hr $ New Bag/Syringe 05/25/2020 8:55 AM CDT 20 mL/ hr lidocaine hcl (PF) (Xylocaine Mpf) 2 % injection Infiltration, PRN, Starting on Sat05/25/20 at 0934, Until Sat05/25/20 at 1043, Anesthesia Intra-op $ Given 05/25/2020 9:34 AM CDT 80 mg midazolam (Versed) injection Intravenous, PRN, Starting on Sat05/25/20 at 0929, Until Sat05/25/20 at 1043, Anesthesia Intra-op $ Given 05/25/2020 9:29 AM CDT 1 mg Ondansetron HCl (Zofran) injection Intravenous, PRN, Starting on Sat05/25/20 at 1000, Until Sat05/25/20 at 1043, Anesthesia Intra-op $ Given 05/25/2020 10:00 AM CDT 4 mg propofol (Diprivan) injection Intravenous, PRN, Starting on Sat05/25/20 at 0934, Until Sat05/25/20 at 1043, Anesthesia Intra-op $ Given 05/25/2020 9:34 AM CDT 150 mg rocuronium (Zemuron) injection Intravenous, PRN, Starting on Sat05/25/20 at 0935, Until Sat05/25/20 at 1043, Anesthesia Intra-op $ Given 05/25/2020 9:35 AM CDT 40 mg sugammadex (Bridion) injection Intravenous, PRN, Starting on Sat05/25/20 at 1029, Until Sat05/25/20 at 1043, Anesthesia Intra-op $ Given 05/25/2020 10:29 AM CDT 168 mg documented in this encounter Care Teams Beauty Therapist Relationship Specialty Start Date End Date Gulshan Mena MD [address] [place] [address] PCP - General Family Medicine 12/19/09 documented as of this encounter
--- OUTSIDE RECORDS SUMMARY | 2024-02-12 05:05 | XMS_ITS | Encounter Summary ---
Author Organization [facility] Address [address] [address] Care Team Providers Care Fluid Dynamicist Name Role Phone Gulshan Mena MD Primary Care Provider [phone] Encounter Details Date Type Department Care Team (Latest Contact Info) Description 05/01/2018 9:49 AM CDT - 05/01/2018 11:59 PM CDT Hospital Encounter [facility] OP [address] [place] [id number] Michi Longo MD [address] [address] Discharge Disposition: Home or Self Care Social [...] Reasons: Stuffy Nose SALINE NASAL SPRAY NA [place] into the nose as needed VITAMIN D [...] Name Priority Date/Time Associated Diagnosis Comments XR NECK SOFT TISSUE Routine 05/01/2018 1 0:19 AM CDT Seizures (HCC) Battery end of life of vagus nerve stimulator Pre-op testing documented in this encounter Results * XR NECK SOFT TISSUE (05/01/2018 10:19 AM CDT) Anatomical Region Laterality Modality Head Radiographic Vanessa ging 05/01/2018 10:1 6 AM CDT Impressions 05/02/2018 6:26 AM CDT FINDINGS/IMPRESSION: Vagal stimulator is seen in the left chest with a lead extending into the left neck. The lead ends anterior to the fifth cervical body. The trachea is patent. The cervical vertebrae are aligned without signs of fracture. The predental interval and prevertebral soft tissues are normal. Dictated by Lakshmi Galdamez MD (supervisor residential). Dr. QUOC Foster have personally reviewed and interpreted this examination/study. This report was electronically signed by QUOC HUNT ??on 05/02/2018 6:26 AM . Narrative 05/02/2018 6:26 AM CDT EXAMINATION: XR NECK SOFT TISSUE HISTORY: pre op COMPARISON: No prior study is available for comparison at the time of this dictation. Procedure Note Quoc Hunt, DO - 05/02/2018 EXAMINATION: XR NECK SOFT TISSUE HISTORY: pre op COMPARISON: No prior study is available for comparison at the time ofthis dictation. FINDINGS/IMPRESSION: Vagal stimulator is seen in the left chest with a lead extending intothe left neck. The lead ends anterior to the fifth cervical body. Thetrachea is patent. The cervical vertebrae are aligned without signs of fracture. The predental interval and prevertebral soft tissues are normal. Dictated by Lakshmi Galdamez MD (supervisor residential). Dr. QUOC Foster have personally reviewed and interpreted this examination/study. This report was electronically signed by QUOC HUNT on 05/02/2018 6:26 AM . Michi Longo MD DIAGNOSTIC IMAGING ORDERABLES documented in this encounter Visit Diagnoses Diagnosis Seizures (HCC) Other convulsions Battery end of life of vagus nerve stimulator Pre-op testing Preoperative examination, unspecified documented in this encounter Care Teams Fluid Dynamicist Relationship Specialty Start Date End Date Gulshan Mena MD [address] [place] [address] PCP - General Family Medicine 12/19/09 documented as of this encounter
--- OUTSIDE RECORDS SUMMARY | 2024-02-12 05:05 | XMS_ITS | Encounter Summary ---
Author Organization [facility] Address [address] [place] [address] Care Team Providers Care Garbage Collector Name Role Phone Gulshan Mena MD Primary Care Provider [phone] Reason for Visit * Auth/Cert Specialty Diagnoses / Procedures Referred By Contac t Referred To Contact Diagnoses Diagnosis unknown end of VNS battery life Procedures INSERTION CRANIAL/VAGAL NERVE NEUROSTIMULATOR ELECTRODES/GENERATOR Referral ID Status Reason Start Date Expiration Date Visits Re quested Visits Authorized [id number] 1 1 Encounter Details Date Type Department Care Team (Late st Contact Info) Description 05/16/2018 7:31 AM CDT Anesthesia Event [facility] [address] [place] [id number] Leticia Siu MD [address] [place] [address] [place], [address] [facility] [address] [place] [address] Anesthesia Record Procedure Summary Procedure Name Responsible Anesthesiologist Anesthesia Start Time Anesthesia Stop Time VAGAL NERVE NEUROSTIMULATOR GENERATOR REPLACEMENT (Left: Chest) Leticia Siu MD 05/16/18 0731 05/16/18 0836 Events Date Time Event Comment 05/16/2018 0712 0731 Pt In Room 0731 An Start 0731 An Start Data 0733 Anes Timeout 0733 PT Reassessment 0737 Induction 0738 An Intubation 0745 Anes Ready 0804 Time Out Anesthesia part icipated in timeout at the time documented in the record by nursing 0804 Proc Start 0822 Proc Stop 0823 An Emergence 0829 Extubation 0831 an stop data 0831 Pt out of Room 0831 ANPTO2 0836 An Stop Meds Name Total midazolam 2 mg/2mL injection 4 mg fentaNYL 100 mcg/2ml injection 50 mcg lidocaine PF 2% 60 mg propofol 200mg/20mL injection 150 mg succinylcholine 20 mg/mL injection 100 m g ceFAZolin 2,000 mg IVPB 2 g LR (Lactated ringers) 500 mL * Agents Name Exp. Sevoflurane Exp. N2O Insp. Sevoflurane * Blood No blood administrations on file. Lines, Drains, and Airways Type Details Placement Removal Peripheral IV Date: 05/16/18; Time : 06; Orientation: Right; Placed By: Abraham De La Paz RN; Tolerance: Well 05/16/18 0618 by Irma De La Paz RN 05/16/18 1040 by Soumya Truong RN ETT Date: 05/16/18; Time : 07; Placed By: Denzel John MD; Vent: easy mask; Induction: Standard IV; Blade Type: Beatriz; Blade Size: 3; Laryngoscopy View: Grade 1 (full cords); Intubation Adjuncts: Stylet; Tube: Endotracheal Tube; Placement: Oral; Tube Type: Cuffed-inflated; Tube Size(mm): 8 MM; Depth of Insertion: 23 CM; Measured From: lips; Attempts: 1; Cuff Infated: Air; Verified By: Direct visualization, Bilateral breath sounds, Chest Auscultation, CO2 Monitor 05/16/18 0738 by Denzel John MD 05/16/18 0829 by Denzel John MD Procedural Site (Incision) 05/16/18; 0818; Left; Chest; EXOFIN; 05/16/18; 1654 05/16/18 0818 by Gege De La Rosa RN 05/16/18 1654 by Sendori, Auto Release documented in this encounter Social [...] as of this encounter Progress Notes * Leticia Siu MD - 05/16/2018 10:00 AM CDT ANESTHESIA POSTOP EVALUATION NOTE Procedure: VAGAL NERVE NEUROSTIMULATOR GENERATOR REPLACEMENT (Left Chest) Travis Beebe is a 33 year old male Patient Vitals for the past 6 hrs: BP Temp Pulse Resp SpO2 Pain Rating Score #1 05/16/18 0550 105/72 97.4 ??F (36.3 ??C) 63 20 100 % 0 05/16/18 0645 103/66 - 50 17 - - 05/16/18 0835 111/63 97.7 ??F (36.5 ??C) 54 15 100 % - 05/16/18 0840 116/60 - 59 16 100 % - 05/16/18 0845 112/63 - 58 - 100 % - 05/16/18 0850 115/54 - 58 - 99 % - 05/16/18 0855 105/60 - 55 12 99 % - 05/16/18 0900 108/60 - 57 14 97 % - 05/16/18 0905 - - 56 16 96 % - 05/16/18 0910 100/58 - 56 16 95 % - 05/16/18 0915 - - 56 14 97 % - 05/16/18 0920 103/59 - 56 16 95 % - 05/16/18 0925 - - 56 16 97 % - 05/16/18 0930 98/60 - 55 16 98 % - 05/16/18 0935 - - 53 16 98 % - 05/16/18 0940 106/62 - 54 13 99 % - 05/16/18 0945 - 97.8 ??F (36.6 ??C) 60 18 100 % - Anesthesia Type: general Pre-op Diagnosis Codes: * Diagnosis unknown [R69] Mental Status: awake and alert Neuro Status: No numbess, tingling or visual disturbances Respiratory Function: natural Cardiac Function: stable Postop Pain: adequate Postop Hydration: adequate Postop Nausea: none Assessment: no apparent anesthetic complications, patient tolerated procedure well and no evidence of recall Patient Disposition: Release from Anesthesia Care documented in this encounter Procedure Notes * Denzel John MD - 05/16/2018 7:45 AM CDTAssociated Order(s): ENDOTRACHEAL TUBE NOTE Endotracheal Tube Placement: Patient Location: OR. Intubation Event Date/Time: 05/16/2018 7:38 AM Procedure: intubation ([id number]). Procedure Section: Sedation: under general anesthesia. Indications for Airway Management: anesthesia Pretreatment: 100% O2. Induction: standard IV Patient Position: supine Mask Ventilation: easy. Blade Type: Beatriz Blade Size: 3 Laryngoscopy View: grade 1 (full cords) Intubation Adjuncts: stylet Device: endotracheal tube Placement: oral Tube type: cuff - inflated Tube Size (MM): 8 Depth of Insertion (CM): 23 Measured From: lips Cuff Inflated With: air Number of Attempts: 1. Placement Verified By: direct visualization, bilateral breath sounds, chest auscultation and CO2 monitor CXR Findings: ETT in proper place. Procedure Start Time: 05/16/2018 7:38 AM. Staff Section Anesthesia Provider: DENZEL JOHN, Performed the procedure documented in this encounter Consult Notes * Leticia Siu MD - 05/16/2018 6:51 AM CDT ANESTHESIA PREOPERATIVE EVALUATION NOTE Procedure: VAGAL NERVE NEUROSTIMULATOR GENERATOR REPLACEMENT (N/A Neck) NPO status: Since Midnight (05/16/2018 6:37 AM) Vitals: Patient Vitals for the past 6 hrs: BP Temp Pulse Resp SpO2 Pain Rating Score #1 05/16/18 0645 103/66 - 50 17 - - 05/16/18 0550 105/72 97.4 ??F (36.3 ??C) 63 20 100 % 0 ANESTHESIA PRE-EVALUATION NOTE History of Present Illness: 33yoM w/ Emmett-Gastaut syndrome, autism spectrum disorder, mental retardation, refractory generalized non-convulsive epilepsy, refractory epilepsy s/p left sided vagal nerve stimulator (VNS) placement in 2013 who was last seen in the clinic with concerns that battery was approximating the end of its life. It was found to be at 70% after interrogation. Patient has continued to have seizure episodes at least once a month despite a functioning VNS. Today he presents for VNS generator replacement with Sentiva device. Mom denies any recent changes in his health. Previous Airway Management: ETT Placed: ETT Size: 7 Blade Type: Michaels Blade Size: 2 Mask Airway: Easy Physical Exam: Heart: regular rate rhythm Lungs: normal Abdomen Exam: normal Physical Exam Additional Comments: Will not cooperate with exam, non verbal, non communicative Review of Systems: History of anesthetic complications: No GERD: No Poor Exercise Tolerance: No Recent Chest Pain: No Shortness of Breath: No AICD/Pacemaker: No Renal Disease: No Diagnostic Tests: Lab(s) reviewed: Yes. ANESTHESIA PLAN ASA Score: 3 NPO Status: No liquids within 2 hours and No solids since midnight Anesthesia Plan: general ETT Planned Induction: intravenous Planned Postop Destination: PACU Anesthetic plan was discussed with: legal guardian Anesthetic Plan discussion was: Consented Use of blood products were discussed with: legal guardian Use of blood product discussion was: Consented Attending Provider: I have reviewed the chart, I have interviewed and examined the patient, I agree with the documentation and have dicussed the anesthesia plan w/ the Resident, AUTO PORTER or AA and The pateint agrees with the plan and accpets the risks and benefits I attest to documenting, updating or reviewing a patient's current medications using all immediate resources available on the date of the encounter. This list must include ALL known prescriptions, gtfh-[id number], herbals, and vitamin/mineral/dietary (nutritional) supplements AND must contain the medications' name, dosages, frequency and route of administration. BMI, Height, Weight Tobacco History Estimated body mass index is 27.36 kg/(m^2) as calculated from the following: Height as of this encounter: 1.702 m (5' 7 ). Weight as of this encounter: 79.2 kg (174 lb 11.2 oz). History Smoking Status ??? Never Smoker Smokeless Tobacco ??? Never Used Alcohol History Drug History History Alcohol Use No History Drug Use No Outpatient Medications: Inpatient Medications: Outpatient Prescriptions Marked as Taking for the 05/16/18 encounter (Hospital Encounter) Medication Sig Last Dose ??? busPIRone 1 Tab 3 times daily. 05/15/2018 at 2100 ??? cloBAZam Take 20 mg by mouth once daily Reasons: At bedtime 05/15/2018 at Unknown time ??? cloNIDine Take 0.3 mg by mouth once daily 05/15/2018 at Unknown time ??? lacosamide Take 100 tablets by mouth 2 times daily 05/15/2018 at Unknown time ??? lamoTRIgine 2 Tabs 3 times daily. 05/15/2018 at Unknown time ??? loratadine Take 10 mg by mouth daily. 05/15/2018 at Unknown time ? ? Magnesium Hydroxide (MILK OF MAGNESIA PO) Take 30 mL by mouth every Saturday & Saturday Past Week at Unknown time ??? multivitamin daily Take 1 Tab by mouth daily with food. 05/15/2018 at Unknown time ??? Nutritional Supplements (ENSURE NUTRITION SHAKE PO) Take by mouth as needed Past Month at Unknown time ??? propranolol Take 80 mg by mouth once 05/15/2018 at 0800 ??? raNITIdine Take 150 mg by mouth 2 times daily 05/15/2018 at Unknown time ??? VITAMIN D PO Take 50,000 Units by mouth every 14 days Take one tab weekly 05/15/2018 at Unknown time ??? zonisamide Take 100 mg by mouth 2 times daily 05/15/2018 at Unknown time Current Facility-Administered Medications Medication Dose Last Dose ??? lactated ringers ??? vancomycin 1,000 mg Allergies: Allergies Allergen Reactions ??? Amoxicillin ??? [...] Priority: Not Prioritized Overview: Seizure ??? Intractable [place]-Gastaut syndrome without status epilepticus 10/20/2012 Priority: Not Prioritized Overview: Emmett-Gastaut syndrome ??? Active autistic disorder 07/10/2012 Priority: [...] inplanted Lab Results: Recent Labs Component Name 05/01/18 0922 WBC 5.9 HGB 14.7 HCT 42.4 PLTCOUNT 212 INR 1.0 PTT 37.3 Recent Labs Component Name 04/29/18 1321 NA 140 POTASSIUM 3.9 CO2 19* BUN 22 CREATININE 1.0 Recent Labs Component Name 04/29/18 1321 GLU 71 CALCIUM 10.2 documented in this encounter Miscellaneous Notes * Anesthesia Transfer of Care - Leticia Siu MD - 05/16/2018 8:36 AM CDT ANESTHESIA TRANSFER OF CARE NOTE Today's Date: 05/16/2018 Date of : 1985 Patient: Travis Beebe Procedure(s): VAGAL NERVE NEUROSTIMULATOR GENERATOR REPLACEMENT Surgeon(s): Primary: Michi Longo MD Resident - Assisting: Diego Cota MD Preop Diagnosis: Pre-op Diagnois: * Diagnosis unknown [R69] Post-op Diagnosis: * Diagnosis unknown [R69] . Allergies Allergen Reactions ??? Amoxicillin ??? Dilantin [Phenytoin Sodium] ??? Tegretol [Carbamazepine] Vitals: Patient Vitals for the past 3 hrs: BP Temp Pulse Resp SpO2 Pain Rating Score #1 05/16/18 0645 103/66 - 50 17 - - 05/16/18 0550 105/72 97.4 ??F (36.3 ??C) 63 20 100 % 0 Lines, Drains, and Airways Type Details Placement Removal Peripheral IV 05/16/18; 06; Right; Hand; M RN; 20 Gauge; Anatomical Landmarks; 2; None; Well05/16/18 06 by Irma De La Paz RN ETT 05/16/18; 07 (created via procedure documentation); Denzel John MD; easy mask; Standard IV; Beatriz; 3; Grade 1 (full cords); Stylet; Endotracheal Tube; Oral; Cuffed-inflated; 8 MM; 23 CM; lips; 1; Air; Direct visualization, Bilateral breath sounds, Chest Auscultation, CO2 Monitor; 05/16/18; 0829 05/16/18 0738 by Denzel John MD 05/16/18 0829 by Denzel John MD Intraprocedure I/O Totals LR (Lactated ringers) Volume infused 500 ml Patient Transfer Location: PACU Complications: None Handoff Given? Yes Checklist or [...] understanding of report from the receiving PACUteam. Leticia iSu MD documented in this encounter Plan of Treatment Not on file documented as of this encounter Procedures Procedure Name Priority Date/Time Associated Diagnosis Comments ENDOTRACHEAL TUBE NOTE Routine 05/16/2018 7:49 AM CDT Procedure Note - Denzel John MD - 05/16/2018 7:45 AM CDTThis note is in progress. Endotracheal Tube Placement: Patient Location: OR. Intubation Event Date/Time: 05/16/2018 7:38 AM Procedure: intubation ([id number]). Procedure Section: Sedation: under general anesthesia. Indications for Airway Management: anesthesia Pretreatment: 100% O2. Induction: standard IV Patient Position: supine Mask Ventilation: easy. Blade Type: Beatriz Blade Size: 3 Laryngoscopy View: grade 1 (full cords) Intubation Adjuncts: stylet Device: endotracheal tube Placement: oral Tube type: cuff - inflated Tube Size (MM): 8 Depth of Insertion (CM): 23 Measured From: lips Cuff Inflated With: air Number of Attempts: 1. Placement Verified By: direct visualization, bilateral breath sounds,chest auscultation and CO2 monitor CXR Findings: ETT in proper place. Procedure Start Time: 05/16/2018 7:38 AM. Staff Section Anesthesia Provider: DENZEL JOHN, Performed the procedure documented in this encounter Visit Diagnoses Not on filedocumented in this encounter Administered Medications Inactive Administered Medications - up to 3 most recent administrations Medication Order MAR Action Action Date Dose Rate Site ceFAZolin (ANCEF) 2,000 mg in 50 ml IVPB PRN, Starting on Sat05/16/18 at 0742, Until Sat05/16/18 at 0836, Anesthesia Intra-op $ Given 05/16/2018 7:58 AM CDT 1.5 g $ Given 05/16/2018 7:42 AM CDT 0.5 g fentaNYL (PF) (SUBLIMAZE) injection Intravenous, PRN, Starting on Sat05/16/18 at 0806, Until Sat05/16/18 at 0836, Anesthesia Intra-op $ Given 05/16/2018 8:06 AM CDT 50 mcg lactated ringers infusion Intravenous, CONTINUOUS PRN, Starting on Sat05/16/18 at 0730, Until Sat05/16/18 at 0836, Anesthesia Intra-op $ New Bag/Syringe 05/16/2018 7:30 AM CDT lidocaine hcl (PF) (XYLOCAINE MPF) 2 % injection Infiltration, PRN, Starting on Sat05/16/18 at 0737, Until Sat05/16/18 at 0836, Anesthesia Intra-op $ Given 05/16/2018 7:37 AM CDT 60 mg midazolam (VERSED) injection Intravenous, PRN, Starting on Sat05/16/18 at 0733, Until Sat05/16/18 at 08, Anesthesia Intra-op $ Given 05/16/2018 7:33 AM CDT 2 mg $ Given 05/16/2018 7:31 AM CDT 2 mg propofol (DIPRIVAN) injection Intravenous, PRN, Starting on Sat05/16/18 at 0737, Until Sat05/16/18 at 08, Anesthesia Intra-op $ Given 05/16/2018 7:37 AM CDT 150 mg succinylcholine (ANECTINE) injection Intravenous, PRN, Starting on Sat05/16/18 at 0737, Until Sat05/16/18 at 08, Anesthesia Intra-op $ Given 05/16/2018 7:37 AM CDT 100 mg documented in this encounter Care Teams Garbage Collector Relationship Specialty Start Date End Date Gulshan Mena MD [address] [place], [place] [address] [address] PCP - General Family Medicine 12/19/09 documented as of this encounter
--- OUTSIDE RECORDS SUMMARY | 2024-02-12 05:05 | XMS_ITS | Encounter Summary ---
Author Organization [facility] Address [address] [address] Care Team Providers Care Editor News Name Role Phone Gulshan Mena MD Primary Care Provider [phone] Reason for Visit * Reason Onset Date Comments Follow-up 05/15/2018 Encounter Details Date Type Department Care Team (Late st Contact Info) Description 05/15/2018 Telephone [facility] [address] [place] [id number] Felicitas Chou Follow-up Social History Tobacco Use [...] * Telephone Encounter - Felicitas Chou - 05/15/2018 3:56 PM CDT Spoke with Emmy from nursing facility. Reviewed surgery instructions for tomorrow. Arrival time 0530am to [facility] 3rd floor ACU. NPO after midnight. documented in this encounter Plan of Treatment Not on file documented as of this encounter Visit Diagnoses Not on filedocumented in this encounter Care Teams Editor News Relationship Specialty Start Date End Date Gulshan Mena MD [address] [place] [address] PCP - General Family Medicine 12/19/09 documented as of this encounter
--- OUTSIDE RECORDS SUMMARY | 2024-02-12 05:06 | XMS_ITS | Clinical Summary ---
Author Organization [facility] Medical Office Building 3 Address [address] [place] [address] Care Team Providers Care Branch Services Manager Name Role Phone Gulshan Mena DO Primary Care Provider Allergies Active Allergy Reactions Criticality Noted Date Comments Amoxicillin High Carbamazepine High Cannabidiol Rash Medium 01/29/2024 Penicillins Hives Medium Phenytoin Sodium Other (See comments) Low 0 Medications busPIRone (BUSPAR) 10 mg tablet take 1 tablet by oral route 3 times every day 270 3 014 Active ergocalciferol (VITAMIN D2) 50,000 unit capsule take 1 capsule by oral route every week 0 0 013 Active carbamide peroxide (DEBROX) 6.5 % otic solution 6.5 %. 0 drop 0 013 Active multivitamin tablet tablet take 2 Tablet by Oral route every day 0 0 013 Active magnesium hydroxide (CONCENTRATED MILK of MAGNESIA) 240 mg/ mL suspension Take 30 mL by mouth every other day Active cloNIDine (CATAPRES) 0.1 mg tablet Take 3 tablets (0.3 mg total) by mouth daily Active docusate sodium (COLACE) 100 mg capsuleIndicatio ns:constipation Take 1 capsule (100 mg total) by mouth 2 (two) times a day Active acetaminophen (TYLENOL) 325 mg tablet Take 2 tablets (650 mg total) by mouth every 6 (six) hours as needed for pain Active guaiFENesin ER (MUCINEX) 600 mg 12 hr tablet Take 400 mg by mouth Every 4-6 hours as needed cough/congestio n Active bisacodyl (DULCOLAX) 10 mg suppository Insert 1 suppository (10 mg total) into the rectum daily as needed for constipation Active loperamide (IMODIUM) 2 mg capsule Take 2 capsules (4 mg total) by mouth At onset of diarrhea, give adtl tab after each diarrheal stool up to 4 tabs a day Active sodium chloride (OCEAN) 0.65 % nasal spray Administer 2 sprays into each nostril as needed Active zonisamide (ZONEGRAN) 100 mg capsuleIndicatio ns:Partial Epilepsy Treatment Adjunct Take 4 capsules (400 mg total) by mouth 2 (two) times a day. 240 capsule 11 017 Active food supplemt, lactose-reduced 0.04-1.05 gram-kcal/mL liquid Active famotidine (PEPCID) 20 mg tablet Take 1 tablet (20 mg total) by mouth 2 (two) times a day Active bisacodyl EC (DULCOLAX EC) 5 mg EC tabletIndication s:constipation Take 1 tablet (5 mg total) by mouth daily as needed for constipation Active polyethylene glycol (MIRALAX) 17 gram packetIndication s:constipation Take 1 packet (17 g total) by mouth daily Active loratadine (CLARITIN) 10 mg tablet Take 1 tablet (10 mg total) by mouth daily Active diphenhydrAMINE (BENADRYL) 25 mg capsule Take 1 tablet/capsule (25 mg total) by mouth every 6 (six) hours as needed for itching Active propranolol LA (INDERAL LA) 120 mg 24 hr capsule Take 1 capsule (120 mg total) by mouth daily Active lacosamide (VIMPAT) 100 mg tablet TAKE (2) TABLETS BY MOUTH TWICE DAILY. 120 tablet 4 024 Active lacosamide (VIMPAT) 100 mg tablet TAKE (2) TABLETS BY MOUTH TWICE DAILY. 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 IF CONTINUES; USE 2ND DOSE IN OTHER NOSTRIL. MAX DOSE 20MG/24HRS. NO MORE THAN 5 DOSES SHOULD BE UTILIZED IN A WEEK. CALL 2 each 4 Active cloBAZam (ONFI) 20 mg tablet Take 1.5 tablets (30 mg total) by mouth nightly 45 tablet 5 024 2024 Active hydrOXYzine (ATARAX) 50 mg tablet Take 1 tablet (50 mg total) by mouth every 6 (six) hours as needed for anxiety for up to 10 doses 10 tablet 022 2021 Discontinued(E rror) dicyclomine (BENTYL) 20 mg tablet Take 1 tablet (20 mg total) by mouth every 8 (eight) hours as needed (opiate withdrawal abdominal cramping) for up to 10 doses 10 tablet 022 2021 Discontinued(E rror) cloBAZam (ONFI) 20 mg tablet TAKE (1) TABLET BY MOUTH AT BEDTIME. 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 2 each 5 024 2023 Discontinued cannabidiol, CBD, (EPIDIOLEX) 100 mg/mL solutionIndicati ons:Emmett-Gasta ut Epilepsy Take 3.1 mL (310 mg total) by mouth 2 (two) times a day 200 mL 11 024 2023 Discontinued(O ther) cloBAZam (ONFI) 20 mg tablet TAKE (1) TABLET BY MOUTH AT BEDTIME. 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 s yndrome without status epilepticus (CMS/HCC) 10/20/2012 Overview (05/18/2016): Wilton-Gastaut syndrome Active autistic disorder 07/10/2012 Overview (05/17/2016): Autism disorder Developmental delay 07/10/2012 Overview (05/17/2016): Development delay Encounters Date Type Department Care Team Description 02/11/2024 Orders Only [facility] Neurology at [place] [address] [place] [address] Jn Noble DO 02/11/2024 Telephone [facility] Neurology [address] [place] [address] Jn Noble DO Med Management 01/29/2024 Telephone [facility] Neurology [place] [address] [place] [address] Jn Noble DO Rash 01/13/2024 10:45 AM 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 Office Visit [facility] Neurology at [place] [address] [place] [address] Jn Noble DO 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) (Primary Dx); Refractory generalized nonconvulsive epilepsy (HCC); Active autistic disorder; S/P placement of VNS (vagus nerve stimulation) device 01/13/2024 Telephone [facility] Medical Group Neurology at [address] [place] [address] Jn Noble, Med Management 12/03/2023 Telephone [facility] Medical Group Neurology at [address] [place] [address] Tosha Elaine PA Advice Only 11/28/2023 Telephone [facility] Home Care Services [address] [place] [address] Unknown, Notinfile Home Health from Last 3 Months Surgical History Surgery Date Site/Laterality Comments OTHER SURGICAL HISTORY Left VNS GALLBLADDER SURGERY Medical History Medical History Date Comments Wilton-Gastaut syndrome (HCC) Le nnox-Gastaut; Comments: [facility] 07/16/2013 - Seizure disorder (CMS/HCC) (HCC) Seizure disorder Tension headache Headache, tensi on Hx Other Medical Headache, migra ine Autism Encephalopathy Social History Tobacco Use Types Packs/Day Years Used Date Smoking Tobacco: Never Smokeless Tobacco: Never Alcohol Use Standard Drinks/Week Comments No 0 (1 standard drink = 0.6 oz pur e alcohol) AUDIT-C Answer Date Recorded Frequency of Alcohol Consumption Not on file 04/04/2022 Q2: How many drinks containi ng alcohol do you have on a typical day when you are drinking? Patient does not drink Frequency of Binge Drinking Not on file 03/15 Personal Safety Answer Date Recorded Have you ever been in or are you currently in a harmful physical or emotional relationship or is someone making you feel afraid or unsafe? 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 Gender Identity Not on file Sexual Orientation Not on file Obstetrics History Last Filed Vital Signs Vital Sign Reading Time Taken Comments Blood Pressure 118/62 11/06/2023 9:56 AM CDT Pulse 66 05/25/2023 12:55 AM CDT Temperature 36.3 ??C (97.3 ??F) 05/24/2023 11:50 PM C DT Respiratory Rate 15 05/25/2023 12:55 AM CDT Oxygen Saturation 100% 05/25/2023 12:55 AM CDT Inhaled Oxygen Concentration - - Weight 74.8 kg (165 lb) 11/06/2023 9:56 AM CDT Height 165.1 cm (5' 5 ) 01/13/2024 10:54 AM FINAL 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 Body Mass Index 27.46 11/06/2023 9:56 AM CDT Plan of Treatment Health Maintenance Due Date Last Done Comments Depression Screening 1986 Hepatitis C Screening 1986 DTaP/Tdap/Td Vaccine (1 - Tdap) 1997 Varicella Vaccines (1 of 2 - 13+ 2-dose series) 04/16/1999 Hepatitis B Screening 2004 Regular Well Visit/Exam 18-64 2004 Influenza Vaccine (#1) 2023 0, 11/10/2013 HPV Vaccines Aged Out No longer eligi ble based on patient's age to complete this topic Pneumococcal vaccine <65 Aged Out No longer eligible based on patient's age to complete this topic Medical Devices Implanted Type Area Hand Weaver Device Identifier Shelf Expiration Date Model / Serial / Lot Vns Chest Insurance IN [employer] DIVISION [facility] [employer] IN [employer] DIV[employer] Care Teams Branch Services Manager Relationship Specialty Start Date End Date Gulshan Mena DO [address] [place], [place] [phone] PCP - General 05/11/16
--- OUTSIDE RECORDS SUMMARY | 2024-02-12 05:06 | XMS_ITS | Encounter Summary ---
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 Care Coordination phone line and informed her that [facility] Home Health is unable to accept this patient. We are at full clinical capacity inthe patient's area and are unable to staff in a safe and timely manner. Referral declined. Fax Com ID #[id number]. documented in this encounter Plan of Treatment Not on file documented as of this encounter Visit Diagnoses Not on filedocumented in this encounter Care Teams Student Success Advisor Relationship Specialty Start Date End Date Gulshan Mena DO [address] [place] [address] PCP - General 05/11/16 documented as of this encounter
--- OUTSIDE RECORDS SUMMARY | 2024-02-12 05:06 | XMS_ITS | Encounter Summary ---
Author Organization [facility] Health Address [address] [facility] [place] [address] Care Team Providers Care Usability Architect Name Role Phone Gulshan Mena MD Primary Care Provider [phone] Reason for Referral * Procedure (Routine) - Closed Specialty Diagnoses / Procedures Referred By Contac t Referred To Contact Cardiology Diagnoses Pre-op testing Procedures EKG 12-LEAD Michi Longo MD [address] [place] [address] Referral ID Status Reason Start Date Expiration Date Visits Re quested Visits Authorized [id number] Closed 04/25/2018 10/22/2018 1 1 Encounter Details Date Type Department Care Team (Late st Contact Info) Description 04/25/2018 Orders Only [facility] [address] [place] [address] Michi Longo MD [address] [place] [address] Seizures (HCC) ; Battery end of life of vagus nerve stimulator; Pre-op testing Social History Tobacco Use Types Packs/Day Years [...] documented as of this encounter Results * (ABNORMAL) BASIC METABOLIC PANEL (CALCIUM TOTAL) (04/29/2018 1:21 PM CDT) BUN 22 7 - 26 mg/dL 04/29/2018 2:36 PM [facility] Creatinine 1.0 0.6 - 1.2 mg/dL 04/29/2018 2:36 PM [facility] Sodium 140 136 - 145 mmol/L 04/29/2018 2:36 PM [facility] Potassium 3.9 3.5 - 4.5 mmol/L 04/29/2018 2:36 PM [facility] Chloride 108(H) 98 - 107 mmol/L 04/29/2018 2:36 PM [facility] CO2 19(L) 22 - 29 mmol/L 04/29/2018 2:36 PM [facility] Glucose 71 70 - 115 mg/dL 04/29/2018 2:36 PM [facility] Calcium 10.2 8.4 - 10.2 mg/dL 04/29/2018 2:36 PM [facility] Anion Gap 17 8 - 18 04/29/2018 2:36 PM [facility] BUN/Creatinine Ratio 22 7 - 23 04/29/2018 2:36 PM [facility] Osmolality Calculated 292 270 - 300 mOsm/kg 04/29/2018 2:36 PM [facility] eGFR >60 >60 mL/min/1.7 3 m2 04/29/2018 2:36 PM [facility] Blood BLOOD SPECIMEN / Unknown Lab Venipuncture / Unknown 04/29/2018 1:21 PM CDT 04/29/2018 1:40 PM T Michi Longo MD LAB - CHEMISTRY ORD ERABLES [facility] [address] [phone] * EKG 12-LEAD (04/29/2018 11:00 AM CDT) Ventricular Rate 67 BPM [facility] Atrial Rate 67 BPM [facility] P-R Interval 186 ms [facility] QRS Duration ms 92 ms [facility] Q-T Interval ms 382 ms [facility] QTC Calculation (Bezet) 403 ms [facility] Calculated P [place] 13 degrees [facility] Calculated R [place] 0 degrees [facility] Calculated T [place] 18 degrees [facility] Interpretation EKG NORMAL SINUS RHYTHM MINIMAL VOLTAGE CRITERIA FOR LVH, MAY BE NORMAL VARIANT BORDERLINE ECG NO PREVIOUS ECGS AVAILABLE Confirmed by Ehsan BORJAS, MOHAMUD ([id number]), film and video editor YINA CHAVEZ ([id number]) on 05/23/2018 2:33:24 PM [facility] M[facility] 04/29/2018 11:0 0 AM CDT 05/23/2018 2:33 PM CDT Michi Longo MD ECG ORDERABLES [facility] documented in this encounter Visit Diagnoses Diagnosis Seizures (HCC)- Primary Other convulsions Battery end of life of vagus nerve stimulator Pre-op testing Preoperative examination, unspecified documented in this encounter Care Teams Usability Architect Relationship Specialty Start Date End Date Gulshan Mena MD [address] [place] [address] PCP - General Family Medicine 12/19/09 documented as of this encounter
--- OUTSIDE RECORDS SUMMARY | 2024-02-12 05:06 | XMS_ITS | Encounter Summary ---
Author Organization [facility] Health Address [address] [place] [address] Care Team Providers Care Fourth Grade Teacher Name Role Phone Gulshan Mena MD Primary Care Provider [phone] Reason for Referral * Procedure (Routine) - Closed Specialty Diagnoses / Procedures Referred By Contac t Referred To Contact Cardiology Diagnoses Pre-op testing Procedures EKG 12-LEAD Michi Longo MD [address] [place] [id number] Referral ID Status Reason Start Date Expiration Date Visits Re quested Visits Authorized [id number] Closed 04/25/2018 10/22/2018 1 1 Reason for Visit * Procedure (Routine) - Closed Specialty Diagnoses / Procedures Referred By Contac t Referred To Contact Cardiology Diagnoses Pre-op testing Procedures EKG 12-LEAD Michi Longo MD [address] [place] [address] Referral ID Status Reason Start Date Expiration Date Visits Re quested Visits Authorized [id number] Closed 04/25/2018 10/22/2018 1 1 Encounter Details Date Type Department Care Team (Latest Contact Info) Description 04/29/2018 11:45 AM CDT - 04/29/2018 12:29 PM CDT Hospital Encounter [facility] EKG/HOLTER [address] [place] [id number] Melyssa Erikcson MD [address] [facility] [address] [place] [address] Discharge Disposition: Home or Self Care Social [...] Reasons: Stuffy Nose SALINE NASAL [place]AY [place] into the nose as needed VITAMIN D [...] Date/Time Associated Diagnosis Comments CARDIAC EKG ORDER 08/21/2019 9:2 0 AM CDT EKG 12-LEAD Routine 04/29/2018 11:00 AM CDT Pre-op testing documented in this encounter Results * CARDIAC EKG ORDER (08/21/2019 9:20 AM CDT) Narrative 08/21/2019 9:20 AM CDT Ordered by an unspecified provider. Scanned Document CARDIAC SERVICES ORD ERABLES * EKG 12-LEAD (04/29/2018 11:00 AM CDT) Ventricular Rate 67 BPM [facility] Atrial Rate 67 BPM [facility] MUSE P-R Interval 186 ms [facility] MUSE QRS Duration ms 92 ms [facility] MUSE Q-T Interval ms 382 ms [facility] MUSE QTC Calculation (Bezet) 403 ms [facility]USE Calculated P [place] 13 degrees [facility] Calculated R [place] 0 degrees [facility] Calculated T [place] 18 degrees [facility] Interpretation EKG NORMAL SINUS RHYTHM MINIMAL VOLTAGE CRITERIA FOR LVH, MAY BE NORMAL VARIANT BORDERLINE ECG NO PREVIOUS ECGS AVAILABLE Confirmed by Ehsan BORJAS, MOHAMUD ([id number]), advertising editor YINA CHAVEZ ([id number]) on 05/23/2018 2:33:24 PM [facility] MUSE 04/29/2018 11:0 0 AM CDT 05/23/2018 2:33 PM CDT Michi Longo MD ECG ORDERABLES [facility] [id number] documented in this encounter Visit Diagnoses Diagnosis Pre-op testing Preoperative examination, unspecified documented in this encounter Care Teams Fourth Grade Teacher Relationship Specialty Start Date End Date Gulshan Mena MD [address] [address] PCP - General Family Medicine 12/19/09 documented as of this encounter
--- OUTSIDE RECORDS SUMMARY | 2024-02-12 05:06 | XMS_ITS | Encounter Summary ---
Author Organization [facility] Address [address] [place] [address] Care Team Providers Care Planer Setup Operator Name Role Phone Gulshan Mena MD Primary Care Provider [phone] Reason for Visit * Reason Onset Date Comments Future Appointment 10/02/2017 Encounter Details Date Type Department Care Team (Late st Contact Info) Description 10/02/2017 Telephone [facility] [address] [place] [address] Michi Longo MD [address] [address] Future Appointment Social History Tobacco Use Types Packs/Day Years Used Date Smoking Tobacco: Never Alcohol Use Standard Drinks/Week Comments No 0 (1 standard drink = 0.6 oz pur e alcohol) Sex and Gender Information Value Date Recorded Sex Assigned at Not on file Gender Identity Not on file Sexual Orientation Not on file documented as of this encounter Miscellaneous Notes * Telephone Encounter - Lilo Reis - 10/02/2017 8:52 AM CDT Ray spoke to patient about 10/03 appointment @ 10:45. Patient understood and did not have any questions. documented in this encounter Plan of Treatment Not on file documented as of this encounter Visit Diagnoses Not on filedocumented in this encounter Care Teams Planer Setup Operator Relationship Specialty Start Date End Date Gulshan Mena MD [address] [place] [address] PCP - General Family Medicine 12/19/09 documented as of this encounter
--- OUTSIDE RECORDS SUMMARY | 2024-02-12 05:06 | XMS_ITS | Encounter Summary ---
Author Organization [facility] Healthcare Address [address] [place] [address] Care Team Providers Care Nurse Specialist Name Role Phone Gulshan Mena DO Primary Care Provider Encounter Details Date Type Department Care Team (Late st Contact Info) Description 05/10/2023 Telephone [facility] Medical Group Neurology at [place] [address] [facility] [address] [place] [address] Jess Campos LPN Social History Tobacco Use Types Packs/Day Years [...] file 03/15 Personal Safety Answer Date Recorded Getting School Help Needed Not on file 01/21 Sex and Gender Information Value Date Recorded Sex Assigned at Not on file 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 Gender Identity Not on file Sexual Orientation Not on file documented as of this encounter Miscellaneous Notes * Telephone Encounter - Jess Campos LPN - 05/10/2023 11:49 AM CDT ----- Message from ANGIE Hanley sent at 05/10/2023 11:26 AM CDT ----- Please call pt and inform them that their labs were normal documented in this encounter Plan of Treatment Not on file documented as of this encounter Visit Diagnoses Not on filedocumented in this encounter Care Teams Nurse Specialist Relationship Specialty Start Date End Date Gulshan Mena DO [address] [place] [address] PCP - General 05/11/16 documented as of this encounter
--- OUTSIDE RECORDS SUMMARY | 2024-02-12 05:06 | XMS_ITS | Encounter Summary ---
Author Organization [facility] Address [address] [place] [address] Care Team Providers Care Insurance Business Analyst Name Role Phone Gulshan Mena MD Primary Care Provider [phone] Reason for Visit * Reason Comments Weight loss ever since V&S imp lant 10/2013 has not been eating and has lost 15 # - slowly regaining eating habits, wanted to know if there was any other suggestions for the pt Encounter Details Date Type Department Care Team (Late st Contact Info) Description 02/15/2014 2:00 PM TUGBOAT PILOT Office Visit [facility] - GI [address] [place] [address] Rashi Vazquez MD [address] [place] [address] Abnormal weight loss (Primary Dx); Gastritis; Oropharyngeal dysphagia; Seizures (HCC) Social History Tobacco Use Types Packs/Day [...] Sign Reading Time Taken Comments Blood Pressure 122/68 02/15/2014 2:14 PM TUGBOAT PILOT Pulse - - Temperature - - Respiratory Rate - - Oxygen Saturation - - Inhaled Oxygen Concentration - - Weight 68.9 kg (152 lb) 02/15/2014 2:14 PM TUGBOAT PILOT Height 167.6 cm (5' 6 ) 02/15/2014 2:14 PM TUGBOAT PILOT Body Mass Index 24.53 02/15/2014 2:14 PM TUGBOAT PILOT documented in this encounter Progress Notes * Tiff Holliday - 02/16/2014 7:00 AM CST Changed [id number] to [id number] as Medicaid will not accept consults for PBB. OAT PILOT * Rashi Vazquez MD - 02/15/2014 2:54 PM CST GI Consult Note: I was asked to see Travis Beebe by Gulshan Mena for evaluation of decreased appetite and weightloss Thank you for this kind consultation. Subjective: Travis Beebe is an 28 y.o. male, with history of seizures, mental retardation, and gastritis (withthe last EGD done in 12/2009), who presents for evaluation of Weight Loss and Oropharyngeal Dysphagia The patient had a V&S implant in 10/2013 (for treatment of seizures); since then, he decreased the amount of food he eats, with subsequent weight loss of 15 lbs (lateley, he started eating better). The caregiver also describes episodes of coughing after drinking water and other thin liquids (nocoughing with thick liquids or with sold food) and he was evaluated for oropharyngeal dysphagia, but the patient refused to complete the test. Allergies: Allergies Allergen Reactions ??? Amoxicillin ??? Dilantin [Phenytoin Sodium] ??? Tegretol [Carbamazepine] Meds: Current Outpatient Prescriptions Medication Sig Dispense Refill ??? levETIRAcetam (KEPPRA) 750 MG tablet Take 750 mg by mouth 2 times daily. ??? cloBAZam (ONFI) 20 MG TABS tablet Take 30 mg by mouth at bedtime. ??? pantoprazole EC (PROTONIX) 40 MG tablet Take 1 Tab by mouth once daily. 30 Tab 1 ??? propranolol CR 24hr (INDERAL LA) 160 MG capsule daily. ??? zonisamide (ZONEGRAN) 100 MG capsule 2 Caps 2 times daily. ??? lacosamide (VIMPAT) 200 MG tablet 1 Tab 2 times daily. ??? lamoTRIgine (LAMICTAL) 150 MG tablet 2 Tabs 3 times daily. ??? carbamide peroxide (DEBROX) 6.5 % otic solution Instill 3-4 Drops into both ears 2 times daily.First 3 days of the month ??? multivitamin daily (THERAGRAN) tablet Take 1 Tab by mouth daily with food. ??? loratadine (CLARITIN) 10 MG tablet Take 10 mg by mouth daily. ??? docusate sodium (COLACE) 100 MG capsule Take 100 mg by mouth 2 times daily. ??? omeprazole (PRILOSEC) 20 MG capsule Take 1 Cap by mouth daily before breakfast. 30 Cap 1 ??? cloNIDine (CATAPRES) 0.3 MG tablet 1 Tab at bedtime. ??? busPIRone (BUSPAR) 10 MG tablet 1 Tab 3 times daily. ??? clonazePAM (KLONOPIN) 1 MG tablet 1 Tab at bedtime. ??? diazepam (DIASTAT) 10 MG gel prn ??? VITAMIN D PO Take one tab weekly ??? Nutritional Supplements (ENSURE PO) 1 Can 2 times daily. No current facility-administered medications for this visit. No current facility-administered medications for this visit. No current facility-administered medications for this visit. Past Medical History Diagnosis Date ??? Seizure disorder last one 02/13/2014 ??? MR (mental retardation) severe ??? Static encephalopathy ??? ADHD (attention deficit hyperactivity disorder) ??? Aggression - adjustment disorder ??? Autism Past Surgical History Procedure Laterality Date ??? Egd 12/20/09 Marcu--gastritis ??? Other surgery 10/2013 V and S inplanted No family history on file. Patient denies family history of colorectal cancer, polyps, inflammatory bowel disease, chronic liver or pancrease diseases. History Substance Use Topics ??? Smoking status: Never Smoker ??? Smokeless tobacco: Not on file ??? Alcohol Use: No Review of Systems: Constitutional: Negative for fevers, chills, sweats, malaise, anorexia. Eyes: Negative for double vision, redness bilaterally Ears, nose, mouth, and throat: Negative for vertigo, hoarseness Respiratory: Negative for hemoptysis, pleuritic chest pain Cardiovascular: Negative for orthopnea, cyanosis Gastrointestinal: Negative for poor appetite, jaundice Skin: Negative for rash, urticaria Breast: Negative for nipple discharge, tenderness Hematologic/lymphatic: Negative for weight loss, blood clots Musculoskeletal:Negative for chronic low back pain, chronic neck pain, muscle pain Neurological: Negative for seizures, diplopia Behavioral/Psych: Negative for hallucinations, delusions Endocrine: Negative for polyphagia, polydipsia A comprehensive review of systems was otherwise negative except as described above and in HPI. Objective: BP 122/68 Wt 68.947 kg (152 lb) BMI 24.55 kg/m2 General: alert, not cooperative, no distress, not oriented to person, place, and time Skin: Normal. and no rash or abnormalities Eyes: sclera and conjunctiva clear, EOMI and PERRLA, lids normal Mouth: MMM no lesions Lungs: clear to auscultation bilaterally, without rhonchi, crackels, or wheezing Heart: regular rate and rhythm, S1, S2 normal, no murmur, click, rub or gallop Abdomen: soft without mass, non-tender, with normal bowel sounds CVA: absent Genitourinary: defer exam Extremities: extremities normal, atraumatic, no cyanosis or edema, no edema, redness or tenderness in the calves or thighs Neurologic: AOx3. Reflexes and motor strength normal and symmetric. Cranial nerves 2-12 and sensation grossly intact. Psychiatric: mental retardation I reviewed all pertinent labs and radiology data. No results for input(s): CREATININE, BUN, SODIUM, POTASSIUM in the last 47606 hours. No results for input(s): WBC, HGB, PLTCOUNT, MCV, INR in the last 67527 hours. No results for input(s): AST, ALT, ALKPHOS, TBIL, DBIL, ALBUMIN, LIPASE, AMYLASE in the last 02686 hours. No results for input(s): FERRITIN, IRON, TSH in the last 74767 hours. Invalid input(s): SATURATION Assessment: 1. Abnormal weight loss 2. Gastritis 3. Oropharyngeal dysphagia 4. Seizures 1. Abnormal weight loss and decreased appetite after a V&S implant in 10/2013 - in a patient with history of gastritis, seizures, and mental retardation; lately, the patient started eating better. Consider peptic esophagitis/gastritis/peptic ulcer disease. 2. Oropharyngeal dysphagia - episodes of coughing after drinking water and other thin liquids (no coughing with thick liquids or with sold food) and he was evaluated for oropharyngeal dysphagia, but the patient refused to complete the test. Plan: 1. Empiric treatment with Protonix (pantoprazole) 40 mg orally daily for 2 months; for persistent inappetence and weight loss, consider repeating EGD 2. Thicken the liquids, and follow up with the speech therapist at the alf (discussed it with the caregiver). 3. Frequent meals for now (every 2 hours) and snacks. 4. The risks and benefits of my recommendations, as well as other treatment options were discussed with the adult interior surface insulation worker today. Questions were answered. 5. Follow up as needed. OAT PILOT documented in this encounter Miscellaneous Notes * Addendum Note - Tiff Holliday - 02/16/2014 7:01 AM CSTAddended by: TIFF HOLLIDAY on: 02/16/2014 07:01 AM Modules accepted: Level of Service OAT PILOT documented in this encounter Plan of Treatment Not on file documented as of this encounter Visit Diagnoses Diagnosis Abnormal weight loss- Primary Loss of weight Gastritis Unspecified gastritis and gastroduodenitis without mention of hemorrhage Oropharyngeal dysphagia Dysphagia, oropharyngeal phase Seizures (HCC) Other convulsions documented in this encounter Care Teams Insurance Business Analyst Relationship Specialty Start Date End Date Gulshan Mena MD [address] [place] [address] PCP - General Family Medicine 12/19/09 documented as of this encounter
--- OUTSIDE RECORDS SUMMARY | 2024-02-12 05:06 | XMS_ITS | Encounter Summary ---
Author Organization [facility] Address [address] [place] [address] Care Team Providers Care Certified Scrub Tech Name Role Phone Gulshan Mena DO Primary Care Provider [phone] Reason for Visit * Reason Comments Intractable [place]-Gastaut syndrome with out status epilepti Encounter Details Date Type Department Care Team (Late st Contact Info) Description 01/13/2024 10:45 AM MARBLE SETTER Office Visit 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) (HCC) (Primary Dx); Refractory generalized nonconvulsive epilepsy (HCC); Active autistic disorder; S/P placement of VNS (vagus nerve stimulation) device Social History Tobacco Use Types Packs/Day Years [...] on file Legal Sex Male 12:55 PM MARBLE SETTER Gender Identity Not on file Sexual Orientation Not on file documented as of this encounter Last Filed Vital Signs Vital Sign Reading Time Taken Comments Blood Pressure - - Pulse - - Temperature - - Respiratory Rate - - Oxygen Saturation - - Inhaled Oxygen Concentration - - Weight - - Height 165.1 cm (5' 5 ) 01/13/2024 10:54 AM MARBLE SETTER Body Mass Index - - documented in this encounter Ordered Prescriptions Prescription Sig Dispense Quantity Refills Last Filled Start Date End Date cannabidiol, CBD, (EPIDIOLEX) 100 mg/mL solutionIndications :Emmett-Gastaut Epilepsy Take 3.1 mL (310 mg total) by mouth 2 (two) times a day 200 mL 11 01/13/2024 01/13/2024 documented in this encounter Progress Notes * Jn Noble DO - 01/13/2024 10:45 AM CST NEUROLOGY FOLLOW-UP Patient ID: Travis Beebe is a 38 y.o. male This patient is sent from Gulshan Mena DO for treatment of his seizures. IMP/REC: 1. Refractory generalized nonconvulsive epilepsy (CMS/HCC) Patient continues to have refractory seizures. In the future we could consider adding additional medications such as cannabidiol oral solution in the future. The patients VNS was adjusted today. I increased output parameters today and have kept the auto stim off in order to ramp his output current to 2.0 milliamps over the course of the next 8 visits. This would allow for a better battery life. The VNS improved his seizure frequency quite a bit. Railway Shunter understands how to utilize the magnet as well as frequency of intranasal Valtoco. His most recent labs showed elevated lacosamide so we decrease this to 2 in the morning, 1 in the afternoon and 2 at night. We will continue to monitor for toxicity of zonisamide, lacosamide, Lamictal. Increase VNS output parameters today. If he continues to have significant amount of seizures in the future (especially episodes lasting >20 minutes). C He has had multiple refractory seizures recently it has been in the hospital for them. Was last at [facility] in late December of 2023 and no medication changes were made per the neurologist on staff there. 2. 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 Add cannabidiol 3. Active autistic disorder He does follow only the simplest of commands, has a couple of words that he now 4. S/P placement of VNS (vagus nerve stimulation) device The patient had VNS replaced by Dr. Longo. We will keep auto stimulation features since his threshold is so high. Currently, his battery life is estimated to be 25-50 %. History of present illness: Interval history: He has had recent seizures, is on maximal doses of four ASMs Travis Beebe is a 35 y.o. male with a PMHx of Emmett-Gastaut syndrome, epilepsy, developmental delay who p/w seizures. The patient had COVID in July. He also had a 20 minute seizure 09/28/21. It did not subside with VNS magnet nor Valtoco. The due to the length of the seizure the preceded to call EMS. Seizure occurred while he was in the car. There was no injury during the event. He also had 1 week before lasting approximately 9 minutes. He has had VNS replacement and overall had improvement. Prior to the seizures his last seizure was in September. Reportedly, pt was at care home and he had a seizure at around 1930, lasted 1-2 mins 09/15/2020. He rec'd all of his night time seizure meds at [facility]. He had a second seizure at 2014 and was given diazepam 10mg IN at this time. He had reportedly fallen to the ground with this seizure, but reportedly did not fall and hit head and no trauma. EMS was called because they were having difficulty getting pt up off the floor. The patient has Streem model 1000, serial #[id number] in the left chest wall. The impedance of the system was 3700 ohms as given in the screen capture of the programming device taken at the end of the procedure and reproduced below: The magnet is to be used every 1-2 minutes as well as the nasal spray, 10 minutes between dosage, alternate nostrils and max 2 doses per day. If patient continues seizing after 3-5 minutes, call 911.Anson administrations should be by 3 days, with no more than 5 uses per month. Patient is otherwise doing well, appetite is good. Railway Shunter reports difficulty with sleep and night terrors hich are probable seizures. They report that most seizures are occurring in the morningsor waking up from naps. The new VNS has remarkably cut down on need to take diazepam. He is tolerating medications well. Sometimes he hits if asked to do something he doesn't want to do. Railway Shunter rep orts no problems with the vagal nerve stimulator. He takes all his medications as prescribed. Latest Reference Range & Units Most Recent Lamotrigine, ser 2.5 - 15.0 mcg/mL 21.7 (H) 09/12/23 10:37 Zonisamide 10.0 - 40.0 mcg/mL 39.3 09/12/23 10:37 Lacosamide mcg/mL 13.2 09/12/23 10:37 (H): Data is abnormally high Reviewed lacosamide level from 10/02 9.5, ZNG 31 08/01 10.1, zonisamide 08/01 32, both decent levels On January 06 the lamotrigine level was 12 VNS: The [employer] M1000 vagal nerve stimulator device is interrogated and adjusted today as follows... Output current is continued at 1.5 milliamps Signal frequency remains at 30 hertz Pulse width is 250 ??s Signal on time remains at 30 sec Signal off time remains at 1.1 min Magnet output current is 1.875 mA Magnet on and off times remained the same Magnet pulse width is continued at 250 micro Auto stim output current is continued for 1.5 mA Auto stim pulse width is 250 ??s Heart beat detection sensitivity remains at 3 Duty cycle is 35 % Auto stim threshold is 40% Output current is good as well as lead impedance at 3178 battery stimulus indicator remains green, 25-50% At least 25 minutes was spent with patient, evaluate the device and discussing VNS device. Current Outpatient Medications: acetaminophen (TYLENOL) 325 mg tablet, Take 2 tablets (650 mg total) by mouth every 6 (six) hours as needed for pain, Disp: , Rfl: bisacodyl (DULCOLAX) 10 mg suppository, Insert 1 suppository (10 mg total) into the rectum daily asneeded for constipation, Disp: , Rfl: bisacodyl EC (DULCOLAX EC) 5 mg EC tablet, Take 1 tablet (5 mg total) by mouth daily as needed for constipation, Disp: , Rfl: busPIRone (BUSPAR) 10 mg tablet, take 1 tablet by oral route 3 times every day, Disp: 270, Rfl: 3 carbamide peroxide (DEBROX) 6.5 % otic solution, 6.5 %., Disp: 0 drop, Rfl: 0 Chest Congestion Relief 400 mg tablet, , Disp: , Rfl: cloBAZam (ONFI) 20 mg tablet, TAKE (1) TABLET BY MOUTH AT BEDTIME., Disp: 30 tablet, Rfl: 4 cloNIDine (CATAPRES) 0.1 mg tablet, Take 3 tablets (0.3 mg total) by mouth daily, Disp: , Rfl: diazePAM (Valtoco) 10 mg/spray (0.1 mL) spray,non-aerosol, Administer 10 mg into one nostril once as needed (seizure) for up to 1 dose May repeat if needed, max of 2 doses in 1 day., Disp: 2 each, Rfl: 5 diphenhydrAMINE (BENADRYL) 25 mg capsule, Take 1 tablet/capsule (25 mg total) by mouth every 6 (six) hours as needed for itching, Disp: , Rfl: docusate sodium (COLACE) 100 mg capsule, Take 1 capsule (100 mg total) by mouth 2 (two) times a day, Disp: , Rfl: ergocalciferol (VITAMIN D2) 50,000 unit capsule, take 1 capsule by oral route every week, Disp: 0, Rfl: 0 famotidine (PEPCID) 20 mg tablet, Take 1 tablet (20 mg total) by mouth 2 (two) times a day, Disp: ,Rfl: food supplemt, lactose-reduced 0.04-1.05 gram-kcal/mL liquid, , Disp: , Rfl: guaiFENesin ER (MUCINEX) 600 mg 12 hr tablet, Take 400 mg by mouth Every 4-6 hours as needed cough/congestion, Disp: , Rfl: lacosamide (VIMPAT) 100 mg tablet, TAKE (2) TABLETS BY MOUTH TWICE DAILY., Disp: 120 tablet, Rfl: 4 lacosamide (VIMPAT) 100 mg tablet, Take 2 tablets (200 mg total) by mouth 2 (two) times a day, Disp: 360 tablet, Rfl: 3 lamoTRIgine (LaMICtal) 150 mg tablet, Take two tabs in the morning, one tab in the afternoon, and two at night., Disp: 450 tablet, Rfl: 3 loperamide (IMODIUM) 2 mg capsule, Take 2 capsules (4 mg total) by mouth At onset of diarrhea, giveadtl tab after each diarrheal stool up to 4 tabs a day, Disp: , Rfl: loratadine (CLARITIN) 10 mg tablet, Take 1 tablet (10 mg total) by mouth daily, Disp: , Rfl: magnesium hydroxide (CONCENTRATED MILK of MAGNESIA) 240 mg/ mL suspension, Take 30 mL by mouth every other day, Disp: , Rfl: multivitamin tablet tablet, take 2 Tablet by Oral route every day, Disp: 0, Rfl: 0 polyethylene glycol (MIRALAX) 17 gram packet, Take 1 packet (17 g total) by mouth daily, Disp: , Rfl: propranolol LA (INDERAL LA) 120 mg 24 hr capsule, Take 1 capsule (120 mg total) by mouth daily, Disp: , Rfl: sodium chloride (OCEAN) 0.65 % nasal spray, Administer 2 sprays into each nostril as needed, Disp: , Rfl: lacosamide (VIMPAT) 100 mg tablet, TAKE (2) TABLETS BY MOUTH TWICE DAILY., Disp: 120 tablet, Rfl: 4 zonisamide (ZONEGRAN) 100 mg capsule, Take 4 capsules (400 mg total) by mouth 2 (two) times a day.,Disp: 240 capsule, Rfl: 11 No current facility-administered medications for this visit. Review of Systems Much of this is gleaned from staff... Constitutional: Negative for fatigue, fever and unexpected weight change. HENT: Negative for ear discharge, ear pain and hearing loss. Eyes: Negative for pain, itching and visual disturbance. Respiratory: Negative for apnea, cough, chest tightness and shortness of breath. Cardiovascular: Negative for chest pain, palpitations and leg swelling. Gastrointestinal: Negative for diarrhea, nausea and vomiting. Genitourinary: Negative for dysuria, flank pain and hematuria. Musculoskeletal: Negative for arthralgias, back pain and myalgias. Neurological: Negative for weakness, numbness and headaches. Psychiatric/Behavioral: Negative for agitation, confusion and hallucinations. Physical Exam Constitutional: The patient appears well-developed and well-nourished. Vitals reviewed. Head: Normocephalic and atraumatic but he wears the protective helmet. Neck: Normal range of motion. Neck supple. Cardiovascular: Normal rate and regular rhythm. Pulmonary/Chest: Effort normal. No respiratory distress. Abdominal: Soft. There is no rebound. Musculoskeletal: Normal range of motion. Lymphadenopathy: The patient has no cervical adenopathy. Skin: Skin is warm and dry. Neurological exam: Mental Status: Alert and disoriented, speech is mumbly and insight is poor Sensory: A sensory exam is non focal for temperature and vibration bilaterally but he is not the greatest sensory witness Cranial Nerves: PERRL, EOMI, VF's full, vessels normal, face symmetric for sensation and strength, hearing is intact, tongue and oropharynx are symmetric and in the midline, shoulder shrug is intact Motor: 5/5 MRC strength upper & lower extremities, tone is equal, no pronator drift Reflexes: Symmetric in the upper and lower extremities, toes are downgoing Gait and Station: A little bit of an unsteady gait and he has ataxia with finger to nose or rapid alternating movements Zac Noble D.O. 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
--- OUTSIDE RECORDS SUMMARY | 2024-02-12 05:06 | XMS_ITS | Encounter Summary ---
Author Organization [facility] Healthcare Address [address] [place] [address] Care Team Providers Care Mortgage Or Loan Underwriter Name Role Phone Gulshan Mena DO Primary Care Provider Reason for Visit * Reason Comments Seizures Multiple seizures. S ee list. 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 NEUROLOGY FOLLOW-UP Patient ID: Travis Beebe is [...] improved his seizure frequency quite a bit. Radio Mechanic Apprentice understands how to utilize the magnet as [...] in the future (especially episodes lasting >20 minutes considering adding additional medication such as: CANNABIDIOL 100 MG/ML ORAL SOLUTION - Lamotrigine level; Future - Lacosamide level; Future - Zonisamide level; Future 2. 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 3. Active autistic disorder He does follow only the simplest of commands 4. S/P placement of VNS (vagus nerve stimulation) device The patient had VNS replaced by Dr. Longo. We will keep auto stimulation features since his threshold is so high. Currently, his battery life is estimated to be 25-50 %. History of present illness: Interval history: Patient has had taken seizures September. He had 22 seizures. So far in October you had 11 seizures.He has not had to go to the ER for lengthy seizures since June. We are watching his VNS which has been stable although the battery level is 25-50%. 3.2023 Patient had an 8 minute seizure this morning. She did not administer the Valtoco, but this has beenadministered for prior seizures. Radio Mechanic Apprentice is at bedside and helps provide history. She is new and not sure how many seizures patient has experienced since last visit. After review of documentation patient had seizure 04/09/2023, 04/23/2023, 04/25/2023, 04/28/2023, 05/08/2023. Seizures have been frequent. Valtoco is used and is mostly effective. I reviewed 22 page log of seizure journal which included an average of 17 seizures per month. Two which were greater than 20 minutes. Magnet and nasal spray attempted. Denies any difficulty with medication ingestion. 2.2022 Patient's railroad wheels and axle inspector Lorenza is at bedside who helps provide history. She is been with them since fall 2021. She states that he has multiple daily seizure episodes, at baseline. She knows when to use the magnet and when to use the Valtoco nasal spray. She reports that he had to go into the ED for cellulitis of the arm, was admitted and given IV antibiotics in January. Since then he has been doing pretty well. Sleeping well at night and getting along with others. Travis Beebe is a 35 y.o. male with a PMHx of [place]-Gastaut syndrome, epilepsy, developmental delay who p/w seizures. [...] was in September. Reportedly, pt was at nursing home and he had a seizure at [...] up off the floor. The patient has [employer] model 1000, serial #[id number] in the left chest wall. The impedance [...] patient continues seizing after 3-5 minutes, call 911.[place] administrations should be by 3 days, with no more than 5 uses per month. Patient is otherwise doing well, appetite is good. Radio Mechanic Apprentice reports difficulty with sleep and night terrors hich are probable seizures. They report that most seizures are occurring in the morningsor waking up from naps. The new VNS has remarkably cut down on need to take diazepam. He is tolerating medications well. Sometimes he hits if asked to do something he doesn't want to do. Radio Mechanic Apprentice rep orts no problems with the vagal [...] 10.1, zonisamide 08/01 32, both decent levels 06/2017 lacosamide was 12.7, high end of normal, zonisamide was normal at 30 LTG 9, LAC 9.9, ZGN 23 VNS: The [employer]ruik M1000 vagal nerve stimulator device is interrogated and adjusted today as follows... Output current is increased to 1.5 mA Signal frequency remains at 30 hertz Pulse width is 250 ??s Signal on time remains at 30 sec Signal off time remains at 1.1 min Magnet output current is 1.875 mA Magnet on and off times remained the same Magnet pulse width is decreased to 250 ??s Auto stim output current is increased to 1.5 mA Auto stim pulse width is 250 ??s Heart beat detection sensitivity remains at 3 Duty cycle is 35 % Auto stim threshold is 40% Output current is good as well as lead impedance at 3305 battery stimulus indicator remains green, 25-50% At least 25 minutes was spent with patient, adjusting the device and discussing VNS device. Three adjustments were made, counseling is offered, and interview regarding impact in quality of life is also addressed My total encounter time on 11/06/2023 was 35 minutes which was spent in the activities documented inthe note. This includes time spent prior to the visit and after the visit in direct care of the patient. This time does not include time spent in any separately reportable services. Current Outpatient Medications: acetaminophen (TYLENOL) 325 mg [...] peroxide (DEBROX) 6.5 % otic solution, 6.5 %. (Patient taking differently: Administer 4 drops into each ear 2 (two) times a day First 3 days of each month), Disp: 0 drop, Rfl: 0 Chest Congestion [...] TWICE DAILY., Disp: 120 tablet, Rfl: 4 lamoTRIgine (LaMICtal) 150 mg tablet, Take two [...] a day, Disp: 360 tablet, Rfl: 3 zonisamide (ZONEGRAN) 100 mg capsule, Take 4 capsules (400 mg total) by mouth 2 (two) times a day.,Disp: 240 capsule, Rfl: 11 Review of Systems Much of this is [...] finger to nose or rapid alternating movements Return in about 4 months (around 03/07/2024). Physician Area Field Worker, Neurology Office: documented in this encounter Plan of Treatment Not on file documented as of this encounter Visit Diagnoses Diagnosis Intractable [place]-Gastaut syndrome without status epilepticus (CMS/HCC) (HCC)- Primary Refractory generalized nonconvulsive epilepsy (HCC) documented in this encounter Historical Medications * This list may reflect changes made after this encounter. Medication Sig Dispense Quantity Refills Last Filled Start D ate End Date Chest Congestion Relief 400 mg tablet 10/07/2023 added in this encounter Care Teams Mortgage Or Loan Underwriter Relationship Specialty Start Date End Date Gulshan Mena DO [address] [place] [address] PCP - General 05/11/16 documented as of this encounter
--- OUTSIDE RECORDS SUMMARY | 2024-02-12 05:06 | XMS_ITS | Encounter Summary ---
Author Organization [facility] Healthcare Address [address] [place] [address] Care Team Providers Care Head Of Ict Name Role Phone Gulshan Mena DO Primary Care Provider Reason for Visit * Reason Onset Date Comments Scheduling Appointments 05/27/2023 Encounter Details Date Type Department Care Team (Late st Contact Info) Description 05/27/2023 Telephone [facility] Neurology at [place] [address] [facility] [address] [place] [address] Tosha Elaine PA [address] [facility] [address] [place] [address] Scheduling Appointments Social History Tobacco Use Types Packs/Day Years [...] on file 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 Upon return call, please make Johanna aware of below and obtain their fax number to send both seizureand VNS protocols to. * Telephone Encounter - Tosha Elaine PA - 05/28/2023 9:44 AM CDT Patient does not need urgent appointment, he has breakthrough seizures at baseline. Make sure the new home has the information about acute seizure activity for VNS * Telephone Encounter - Pamela Daivs - 05/27/2023 3:01 PM CDT Patient has new alf- he's now with [facility]. Patient recently went to hospital and they sent you summary of care to you. They wanted to make hospital f/u appt for break through seizures, but he was recently here. Please advise/ scheduling? documented in this encounter Plan of Treatment Not on file documented as of this encounter Visit Diagnoses Not on filedocumented in this encounter Care Teams Head Of Ict Relationship Specialty Start Date End Date Gulshan Mena DO [address] [place] [address] PCP - General 05/11/16 documented as of this encounter
--- OUTSIDE RECORDS SUMMARY | 2024-02-12 05:06 | XMS_ITS | Encounter Summary ---
Author Organization [facility] Address [address] [place] [address] Care Team Providers Care Flag Football Coach Name Role Phone Gulshan Mena MD Primary Care Provider [phone] Encounter Details Date Type Department Care Team (Latest Contact Info) Description 12/20/2009 7:42 AM WELDER GAS TUNGSTEN ARC - 12/20/2009 10:25 AM WELDER GAS TUNGSTEN ARC Hospital Encounter [facility] - Endoscopy [address] [place] [address] Rashi Perkins MD [address] [place] [address] Endoscopy Discharge Disposition: Correction Acute Care Social History Tobacco Use Types Packs/Day [...] Sign Reading Time Taken Comments Blood Pressure 97/60 12/20/2009 9:40 AM WELDER GAS TUNGSTEN ARC Pulse 45 12/20/2009 9:40 AM WELDER GAS TUNGSTEN ARC Temperature 36.8 ??C (98.2 ??F) 12/20/2009 8:21 AM CS T Respiratory Rate 13 12/20/2009 9:40 AM WELDER GAS TUNGSTEN ARC Oxygen Saturation 97% 12/20/2009 9:40 AM WELDER GAS TUNGSTEN ARC Inhaled Oxygen Concentration - - Weight 64.4 kg (142 lb) 12/20/2009 8:21 AM WELDER GAS TUNGSTEN ARC Height 170.2 cm (5' 7 ) 12/20/2009 8:21 AM WELDER GAS TUNGSTEN ARC Body Mass Index 22.24 12/20/2009 8:21 AM WELDER GAS TUNGSTEN ARC documented in this encounter Discharge Instructions * Discharge Instructions* Document, Scanned - 12/21/2009 10:03 AM WELDER GAS TUNGSTEN ARC documented in this encounter Medications at Time of Discharge Medication Sig Dispensed Refills Start Date End Date busPIRone (BUSPAR) 10 MG tablet 1 Tab 3 times daily. docusate sodium (COLACE) 100 MG capsule Take 100 mg by mouth 2 times daily. 12/20/2009 lacosamide (VIMPAT) 200 MG tablet Take 100 tablets by mouth 2 times daily lamoTRIgine (LAMICTAL) 150 MG tablet 2 Tabs 3 times daily. loratadine (CLARITIN) 10 MG tablet Take 10 mg by mouth daily. multivitamin daily (THERAGRAN) tablet Take 1 Tab by mouth daily with food. VITAMIN D PO Take 50,000 Units by mouth every 14 days Take one tab weekly carbamide peroxide (DEBROX) 6.5 % otic solution Instill 3-4 Drops into both ears 2 times daily. First 3 days of the month 04/29/2018 clonazePAM (KLONOPIN) 1 MG tablet 1 Tab at bedtime. 02/15/2014 cloNIDine (CATAPRES) 0.3 MG tablet 1 Tab at bedtime. 10/03/2017 diazepam (DIASTAT) 10 MG gel prn 02/15/2014 Nutritional Supplements (ENSURE PO) 1 Can 2 times daily. 018 propranolol CR 24hr (INDERAL LA) 160 MG capsule Take 80 mg by mouth once daily 10/03/2017 zonisamide (ZONEGRAN) 100 MG capsule 2 Caps 2 times daily. 10/03/2017 documented as of this encounter Progress Notes * Wil Bennett MD - 12/29/2009 10:39 AM CST POST-OP ANESTHESIA EVALUATION Travis Beebe is a 24 y.o. male The patient is sufficiently recovered from the acute administration of the anesthesia so as to participate in the evaluation or neurologic status has returned to pre-operative or expected level of consciousness. The post-anesthesia assessment was completed based upon the elements below. The patient is stable and has adequately recovered from anesthesia unless otherwise noted. Post-op Evaluation: Temp: 98.2 ??F Pulse: 45 Resp: 13 SpO2: 97 % BP: 97/60 mmHg Pain Rating Score #: 0 Resp function: Natural Airway Cardiac Function: Stable Mental Status : Awake/Alert Pain: Comfortable / acceptable Nausea / Vomiting: None Post Procedure Hydration: Adequate Other complications A post-op evaluation was performed on the patient with the following assessment: No Apparent Anesthesia Complications Unless otherwise indicated, the patient is being discharged from anesthesia care. Wil Bennett MD ER GAS TUNGSTEN ARC * Silvia Cary RN - 12/22/2009 12:04 PM CSTQuick Note: Results given to residential career counselor, verbalized understanding ER GAS TUNGSTEN ARC * Rashi Perkins MD - 12/22/2009 10:13 AM CSTQuick Note: Please call the patient. 1. Normal PERI gastritis. 2. Normal duodenal biopsy Rec: 1. Cont PPI (Prilosec). 2. Ask the patient to call back for persistent/worsening symptoms. ER GAS TUNGSTEN ARC * Rashi Perkins MD - 12/20/2009 3:42 PM CSTQuick Note: Please call the patient. 1. Normal PERI gastritis. Rec: 1. Cont PPI (Prilosec). 2. Ask the patient to call back for persistent/worsening symptoms. ER GAS TUNGSTEN ARC * Shayla Munroe RN - 12/20/2009 9:06 AM CST EGD w/MAC completed. Pt tolerated well. All specimens verified with MD. Please see MD note for additional information. ER GAS TUNGSTEN ARC * Blanco Méndez CRNA - 12/20/2009 8:50 AM CST PRE-ANESTHESIA EVALUATION Evaluated By: Blanco Méndez CRNA, 12/20/2009 8:50 AM Travis Beebe is a 24 y.o. male Purpose: Hospital Problem List There is no problem list on file for this patient. Allergies Dilantin, Amoxicillin and Tegretol Meds Prescriptions prior to admission Medication Sig Dispense Refill ??? carbamide peroxide (DEBROX) 6.5 % otic solution Instill 3-4 Drops into both ears 2 times daily.First 3 days of the month ??? multivitamin daily (THERAGRAN) tablet Take 1 Tab by mouth daily with food. ??? loratadine (CLARITIN) 10 MG tablet Take 10 mg by mouth daily. ??? docusate sodium (COLACE) 100 MG capsule Take 100 mg by mouth 2 times daily. ??? propranolol CR 24hr (INDERAL LA) 160 MG capsule daily. ??? zonisamide (ZONEGRAN) 100 MG capsule 4 Caps at bedtime. ??? lacosamide (VIMPAT) 200 MG tablet 1 Tab 2 times daily. ??? cloNIDine (CATAPRES) 0.3 MG tablet 1 Tab at bedtime. ??? lamoTRIgine (LAMICTAL) 150 MG tablet 2 Tabs 3 times daily. ??? busPIRone (BUSPAR) 10 MG tablet 1 Tab 3 times daily. ??? clonazePAM (KLONOPIN) 1 MG tablet 1 Tab at bedtime. ??? diazepam (DIASTAT) 10 MG gel prn ??? VITAMIN D PO Take one tab weekly ??? Nutritional Supplements (ENSURE PO) 1 Can 2 times daily. Current facility-administered medications Medication Dose Route Frequency Provider Last Rate Last Dose ??? lactated ringers infusion Intravenous Continuous Rashi Perkins MD 20 mL/hr (12/20/09 0843) ??? lidocaine (XYLOCAINE) 2 % viscous solution 5 mL 5 mL Mouth/Throat Once Rashi Perkins MD Past Medical History Past Medical History Diagnosis Date ??? Seizure disorder ??? MR (mental retardation) severe ??? Static encephalopathy ??? ADHD (attention deficit hyperactivity disorder) ??? Aggression - adjustment disorder ??? Autism Past Surgical History No past surgical history on file. Past Social History History Social History ??? Marital Status: Single Spouse Name: N/A Number of Children: N/A ??? Years of Education: N/A Occupational History ??? Not on file. Social History Main Topics ??? Tobacco Use: Never ??? Alcohol Use: No ??? Drug Use: Not on file ??? Sexually Active: Not on file Other Topics Concern ??? Caffeine Concern No ??? Weight Concern Yes wt loss - 10# in 8 days Social History Narrative ??? No narrative on file Last Vital SignsVITAL SIGNS Temp: 98.2 ??F Pulse: 55 Resp: 11 BP: 93/68 mmHg Weight: 142 lb (64.411 kg) Height: 5' 7 (170.2 cm) SpO2: 100 % Pre-Eval ExamPrevious Review I reviewed previous documentation: Yes PHYSICAL EXAM NPO status: Since Midnight Heart Sounds: S1 S2 Respiratory Pattern/Effort: CTA Oriented x 3: Yes Teeth: Chipped (upper right tooth broken off) Airway Class: II ANESTHESIA ASA: II Anesthesia Choices: MAC Post-Op: PACU PRE-EVAL REVIEW I have reviewed all previously documented physician evaluations: Yes ER GAS TUNGSTEN ARC documented in this encounter H&P Notes * Document, Scanned - 12/21/2009 10:03 AM WELDER GAS TUNGSTEN ARC documented in this encounter Miscellaneous Notes * Miscellaneous Scans - Document, Scanned - 01/02/2010 7:56 AM WELDER GAS TUNGSTEN ARC * Miscellaneous Scans - Document, Scanned - 12/21/2009 10:03 AM WELDER GAS TUNGSTEN ARC * Miscellaneous Scans - Document, Scanned - 12/21/2009 10:03 AM WELDER GAS TUNGSTEN ARC * Miscellaneous Scans - Document, Scanned - 12/21/2009 10:03 AM WELDER GAS TUNGSTEN ARC * Miscellaneous Scans - Document, Scanned - 12/21/2009 10:03 AM WELDER GAS TUNGSTEN ARC documented in this encounter Plan of Treatment Not on file documented as of this encounter Procedures Procedure Name Priority Date/Time Associated Diagnosis Comments EGD Routine 12/20/2009 10:03 AM WELDER GAS TUNGSTEN ARC HELICOBACTER PYLORI UREASE Routine 12/20/2009 9:02 AM WELDER GAS TUNGSTEN ARC GROSS + MICRO EXAM Routine 12/20/2009 9: 00 AM WELDER GAS TUNGSTEN ARC documented in this encounter Results * EGD (12/20/2009 10:03 AM WELDER GAS TUNGSTEN ARC) Report Indications/ Pre Op Diagnosis: Nausea. Vomiting. [...] when standard parameters are met. Procedure Codes: 37522: EGD with biopsy Version 1, electronically signed by Dr. RASHI PERKINS on 12/20/2009 at 09:07. [facility]ADON 12/20/2009 10:0 3 AM WELDER GAS TUNGSTEN ARC Rashi Perkins MD GI PROCEDURE ORDERAB LES Performing Organization Address [facility]/ZIP Co de Phone Number [facility] KAYLAH * HELICOBACTER PYLORI UREASE (12/20/2009 9:02 AM WELDER GAS TUNGSTEN ARC) Helicobacter pylori Urease Positive at 4hrs Negative [facility] GASTRIC ANTRAL BIOPSY SPECIMEN / Unknown 12/20/2009 9:02 AM WELDER GAS TUNGSTEN ARC 12/20/2009 11:33 AM WELDER GAS TUNGSTEN ARC Narrative [facility] - 12/20/2009 11:34 AM WELDER GAS TUNGSTEN ARC For gastritis Rashi Perkins MD LAB - 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 O RDERABLES Performing Organization Address City/[facility] Co de Phone Number [facility] [address] [place] [address] * GROSS + MICRO EXAM (12/20/2009 9:00 AM WELDER GAS TUNGSTEN ARC) [facility] Pre-Op Diagnosis Nausea, vomiting + 8lb wt loss over 2 weeks [facility] Post-Op Diagnosis Mild gastritis + normal duodenum [facility] Clinical Findings as above [facility] Gross Description [facility] Comment: One portion received in Histochoice labeled duodenal biopsy consists of five peace villous mucosal fragments, 3-6 mm, submitted in screened cassette. [place] ([facility])clr BLOCK: ?A - Duodenal biopsy, levels Grossed By Karthikeyan Garza M.D. [facility] Microscopic Examination [facility] Comment:Microscopic examinat ion corroborates the diagnosis below. (etm)clr Diagnosis [facility] Comment: Duodenum, endoscopic biopsy: ? No pathologic abnormality 12.21.09 Read by Juany Perrin M.D. [facility] Released by JUANY PERRIN, [facility] Performed By [facility]ologists [facility],[address] [place] [address] [facility] DUODENAL BIOPSY SPECIMEN / Unknown 12/20/2009 9:00 AM WELDER GAS TUNGSTEN ARC 12/20/2009 11:30 AM WELDER GAS TUNGSTEN ARC Rashi Perkins MD LAB - PATHOLOGY/CYTO LOGY ORDERABLES [facility] [address] [place] [address] documented in this encounter Visit Diagnoses Not on filedocumented in this encounter Administered Medications Inactive Administered Medications - up to 3 most recent administrations Medication Order MAR Action Action Date Dose Rate Site lactated ringers infusion at 20 mL/hr, Intravenous, CONTINUOUS, Starting on Sat12/20/09 at 0845, Until Sat12/20/09 at 1544 $ New Bag/Syringe 12/20/2009 8:43 AM WELDER GAS TUNGSTEN ARC 20 mL/ hr lidocaine (XYLOCAINE) 2 % viscous solution 5 mL 5 mL, Mouth/Throat, ONCE, 1 dose, On Sat12/20/09 at 0845, Maximum 8 doses per day. $ Given 12/20/2009 8:55 AM WELDER GAS TUNGSTEN ARC 5 mL documented in this encounter Active and Recently Administered Medications Due to Daylight Saving Time, this section may contain times in both CDT and WELDER GAS TUNGSTEN ARC. Scheduled Medication Order 12/18/2009 12/19/2009 12/20/2009 lidocaine (XYLOCAINE) 2 % viscous solution 5 mL (COMPLETED) 5 mL, Mouth/Throat, ONCE, 1 dose, On Sat12/20/09 at 0845, Maximum 8 doses per day. 0855 ($ Given - Prov ider: Shayla Munroe RN) Continuous Medication Order 12/18/2009 12/19/2009 12/20/2009 lactated ringers infusion (CANCELED) at 20 mL/hr, Intravenous, CONTINUOUS, Starting on Sat12/20/09 at 0845, Until Sat12/20/09 at 1544 0843 ($ New Bag/Syri nge - Provider: Sally Valeor, MAURO)[id number] (Stopped - Provider: Shayla Munroe, MAURO) documented in this encounter Care Teams Flag Football Coach Relationship Specialty Start Date End Date Gulshan Mena MD [address] [place] [address] PCP - General Family Medicine 12/19/09 documented as of this encounter
--- OUTSIDE RECORDS SUMMARY | 2024-02-12 05:06 | XMS_ITS | Encounter Summary ---
Author Organization [facility] Address [address] [address] Care Team Providers Care Tipple Greaser Name Role Phone Gulshan Mena MD Primary Care Provider [phone] Reason for Visit * Reason Onset Date Comments Medication Issue 02/17/2014 ins. wont appro ve pantoprazole Encounter Details Date Type Department Care Team (Late st Contact Info) Description 02/17/2014 Telephone [facility] - GI [address] [place], [place] [id number] Rashi Vazquez MD [address] [facility] [address] [place] [address] Medication Issue (ins. wont approve pantoprazole) Social History Tobacco Use Types Packs/Day Years Used Date Smoking Tobacco: Never Alcohol Use Standard Drinks/Week Comments No 0 (1 standard drink = 0.6 oz pur e alcohol) Sex and Gender Information Value Date Recorded Sex Assigned at Not on file Gender Identity Not on file Sexual Orientation Not on file documented as of this encounter Miscellaneous Notes * Telephone Encounter - Audra Steele RN - 02/17/2014 2:39 PM SET UP AND LAY OUT INSPECTOR Pt's caregiver Pau notified. Rx ordered. UP AND LAY OUT INSPECTOR * Telephone Encounter - Rashi Vazquez MD - 02/17/2014 2:07 PM CST Jennifer, please call the patient: due to insurance requirements, the patient needs to fail atrial ofZantac (ranitidine) 150 mg orally BID for 60 days prior to starting a proton pump inhibitor. I discontinued Protonix -Please send prescription for Zantac (ranitidine) 150 mg orally BID #30, 11 refills -The insurance is [employer] [phone], can fax a rx or can do electronic. -Also need to call Pau back and let her know so she can call his living place and tell them. Her # [phone] UP AND LAY OUT INSPECTOR * Telephone Encounter - Yasmin Barker MA - 02/17/2014 9:48 AM SET UP AND LAY OUT INSPECTOR Saw him the other day. rx pantoprazole 40 mg od. Insurance wants him to take zantac 150mg od for 60days first because he has never been on any type of this medication before. The insurance is spring [phone], can fax a rx or can do electronic. Would need ranitidine 150mg od # 30 with 1 refill. Needs to try this first. Also need to call Pau back and let her know so she can call his living place and tell them. Her # [phone] Pau UP AND LAY OUT INSPECTOR documented in this encounter Plan of Treatment Not on file documented as of this encounter Visit Diagnoses Not on filedocumented in this encounter Care Teams Tipple Greaser Relationship Specialty Start Date End Date Gulshan Mena MD [address] [place] [address] PCP - General Family Medicine 12/19/09 documented as of this encounter
--- OUTSIDE RECORDS SUMMARY | 2024-02-12 05:06 | XMS_ITS | Encounter Summary ---
Author Organization [facility] Healthcare Address [address] [place] [address] Care Team Providers Care Cash Teller Name Role Phone Gulshan Mena DO Primary Care Provider Reason for Visit * Reason Onset Date Comments Advice Only 12/03/2023 Encounter Details Date Type Department Care Team (Late st Contact Info) Description 12/03/2023 Telephone [facility] [place] [address] [facility] [address] [place] [address] Tosha Elaine PA 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 I refaxed it and called her to let us her know I faxed it. APPLICATION REPRESENTATIVE * Telephone Encounter - Jess Campos LPN - 12/09/2023 8:35 AM CDT Letter faxed * Telephone Encounter - Pamela Davsi - 12/04/2023 4:47 PM CDT Emmy called back so I called her and told her what MARY and MAGDY said. Can you please make that letter for the patient and fax it to Emmy at [phone]. * Telephone Encounter - Blossom Jackson LPN - 12/04/2023 2:29 PM CDT Lvm for call back wanted to give the following I don't feel strongly he needs to come back in so soon. It is likely due to stress on the body fromhis recent surgery caused the longer seizure, check with pcp. Ok to letter to keep daniel appt * Telephone Encounter - Jess Campos LPN - 12/03/2023 3:06 PM CDT LVM for call back * Telephone Encounter - Tosha Elaine PA - 12/03/2023 11:04 AM CDT I don't feel strongly he needs to come back in so soon. It is likely due to stress on the body fromhis recent surgery caused the longer seizure, check with pcp. Ok to letter to keep daniel appt * Telephone Encounter - Pamela Davis - 12/03/2023 10:55 AM CDT Patient's home facility called, he went to [facility] for one seizure that lasted over 25 minutes. This discharge letter say for him to make an appt with his Neurologist within 3 days of discharge. He was recently in, did you want him to come in again? Do you advise of anything? If not, can you writea letter for their records that he doesn't have to come in and fax it to # [phone]. Emmy - Interior Design Assistant at his house. Call- Emmy [phone] if you have questions. documented in this encounter Plan of Treatment Not on file documented as of this encounter Visit Diagnoses Not on filedocumented in this encounter Care Teams Cash Teller Relationship Specialty Start Date End Date Gulshan Mena DO [address] [place] [address] PCP - General 05/11/16 documented as of this encounter
--- OUTSIDE RECORDS SUMMARY | 2024-02-12 05:06 | XMS_ITS | Encounter Summary ---
Author Organization [facility] Address [address] [place] [address] Care Team Providers Care Instructor Painting Name Role Phone Gulshan Mena MD Primary Care Provider [phone] Reason for Visit * Reason Comments Procedure Encounter Details Date Type Department Care Team (Late st Contact Info) Description 12/20/2009 8:00 AM COMMERCIAL REAL ESTATE MANAGER Office Visit [facility] Medical [facility] - [place] [address] [place] [address] Rashi Vazquez MD [address] [place] [address] Other specified gastritis without mention of hemorrhage (Primary Dx) Social History Tobacco Use Types Packs/Day Years Used Date Smoking Tobacco: Never Alcohol Use Standard Drinks/Week Comments No 0 (1 standard drink = 0.6 oz pur e alcohol) Sex and Gender Information Value Date Recorded Sex Assigned at Not on file Gender Identity Not on file Sexual Orientation Not on file documented as of this encounter Progress Notes * Rashi Vazquez MD - 12/20/2009 3:41 PM CSTAddended by: RASHI VAZQUEZ I. on: 12/20/2009 Modules accepted: Orders ERCIAL REAL ESTATE MANAGER * Audra Steele RN - 12/20/2009 9:41 AM CST Outpt EGD ERCIAL REAL ESTATE MANAGER documented in this encounter Plan of Treatment Not on file documented as of this encounter Visit Diagnoses Diagnosis Other specified gastritis without mention of hemorrhage- Primary documented in this encounter Care Teams Instructor Painting Relationship Specialty Start Date End Date Gulshan Mena MD [address] [place] [address] PCP - General Family Medicine 12/19/09 documented as of this encounter
--- OUTSIDE RECORDS SUMMARY | 2024-02-12 05:06 | XMS_ITS | Encounter Summary ---
Author Organization [facility] Address [address] [place] [address] Care Team Providers Care Principal Clerk Name Role Phone Gulshan Mena MD Primary Care Provider [phone] Reason for Visit * Reason Onset Date Comments Update 05/24/2014 eating better an d weight back Encounter Details Date Type Department Care Team (Late st Contact Info) Description 05/24/2014 Telephone [facility] - GI [address] [place], [place] [id number] Rashi Vazquez MD [address] [facility] [address] [place], [place] [id number] Update (eating better and weight back) Social History Tobacco Use Types Packs/Day Years Used Date Smoking Tobacco: Never Alcohol Use Standard Drinks/Week Comments No 0 (1 standard drink = 0.6 oz pur e alcohol) Sex and Gender Information Value Date Recorded Sex Assigned at Not on file Gender Identity Not on file Sexual Orientation Not on file documented as of this encounter Miscellaneous Notes * Telephone Encounter - Rashi Vazquez MD - 05/24/2014 10:22 AM CDT Travis Beebe called. On Ranitidine 150mg BID. Doing real good eating and his weight is back. Recommendations: -Will continue Ranitidine 150 mg BID -Call back for persitent/worsening GI symptoms. * Telephone Encounter - Yasmin Barker MA - 05/24/2014 10:06 AM CDT On ranitidine 150mg BID. Doing real good eating and his weight is back. Will cont. Ranitidine as long as it is ok With you documented in this encounter Plan of Treatment Not on file documented as of this encounter Visit Diagnoses Not on filedocumented in this encounter Care Teams Principal Clerk Relationship Specialty Start Date End Date Gulshan Mena MD [address] [place] [address] PCP - General Family Medicine 12/19/09 documented as of this encounter
--- OUTSIDE RECORDS SUMMARY | 2024-02-12 05:06 | XMS_ITS | Encounter Summary ---
Author Organization [facility] Healthcare Address [address] [place] [address] Care Team Providers Care Production Control Coordinating Clerk Name Role Phone Gulshan Mena DO Primary Care Provider [phone] Reason for Visit * Reason Onset Date Comments Med Management 09/25/2023 Encounter Details Date Type Department Care Team (Late st Contact Info) Description 09/25/2023 Telephone [facility] Medical Group [facility] [place] [address] [facility] [address] [place] [address] Jn Noble DO [address] [address] [place] [address] Med Management Social History Tobacco Use Types Packs/Day Years [...] on file 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 * Telephone Encounter - Pamela Davis - 09/27/2023 12:00 PM CDT Patient's malt house loader Sally called they need the new order and why we changed the lamotrigine medand also the lab results. We can fax it # [phone] * Telephone Encounter - Meg Lee LPN - 09/27/2023 9:37 AM CDT Spoke with malt house loader and informed of lab results and updated dose sent to pharmacy. * Telephone Encounter - Darryl Chacon - 09/26/2023 4:16 PM CDT Mary, patient's mother, LVM that she if we are calling about lab results and any med changes we needto call the malt house loader and [facility] patient [facility]. [phone] * Telephone Encounter - Jess Campos LPN - 09/26/2023 10:43 AM CDT LVM for return call. * Telephone Encounter - Meg Lee LPN - 09/25/2023 9:24 AM CDT LVM for call back to go over lab results and to give the following recommendation: Decrease lamotrigine to two tablets in the morning one in the afternoon and two at night. * Telephone Encounter - Meg Lee LPN - 09/25/2023 9:24 AM CDT ----- Message from Jn Noble DO sent at 09/25/2023 9:13 AM CDT ----- Decrease lamotrigine to two tablets in the morning one in the afternoon and two at night documented in this encounter Plan of Treatment Not on file documented as of this encounter Visit Diagnoses Not on filedocumented in this encounter Care Teams Production Control Coordinating Clerk Relationship Specialty Start Date End Date Gulshan Mena DO [address] [place] [address] PCP - General 05/11/16 documented as of this encounter
--- OUTSIDE RECORDS SUMMARY | 2024-02-12 05:06 | XMS_ITS | Encounter Summary ---
Author Organization [facility] Healthcare Address [address] [place] [address] Care Team Providers Care [employer] Craft Crewman Name Role Phone Gulshan Mena DO Primary Care Provider [phone] Reason for Visit * Reason Comments Seizures BIBEMS: pt non verba l at baseline, lives at a correction. Pt has hx of seizure, facility stated he had a total of 4 tonic colonic seizure lasting a few minutes a time this evening. Pt has an implantable device which stopped the seizures. Pt back to baseline per facility. 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 Gender Identity Not on file Sexual Orientation Not on file documented as of this encounter Last Filed Vital Signs Vital Sign Reading Time Taken Comments Blood Pressure 115/73 05/25/2023 12:55 AM CDT Pulse 66 05/25/2023 12:55 AM CDT Temperature 36.3 ??C (97.3 ??F) 05/24/2023 11:50 PM C DT Respiratory Rate 15 05/25/2023 12:55 AM CDT Oxygen Saturation 100% 05/25/2023 12:55 AM CDT Inhaled Oxygen Concentration - - Weight 81.6 kg (180 lb) 05/24/2023 11:50 PM CDT Height 165.1 cm (5' 5 ) 05/24/2023 11:50 PM CDT Body Mass Index 29.95 05/24/2023 11:50 PM CDT documented in this encounter Discharge Instructions * Discharge Instructions* Timmy Arthur MD - 05/25/2023 12:49 AM CDT Continue current medications and treatment. Return for any concerns * Attachments The following attachments cannot be sent through Care Everywhere. * Seizure, Recurrent (Adult) (Irish) documented in this encounter Medications at Time of Discharge acetaminophen (TYLENOL) 325 mg tablet Take 2 tablets (650 mg total) by mouth every 6 (six) hours as needed for pain bisacodyl (DULCOLAX) 10 mg suppository Insert 1 suppository (10 mg total) into the rectum daily as needed for constipation bisacodyl EC (DULCOLAX EC) 5 mg EC tabletIndications :constipation Take 1 tablet (5 mg total) by mouth daily as needed for constipation busPIRone (BUSPAR) 10 mg tablet take 1 tablet by oral route 3 times every day 270 3 07/16/2013 carbamide peroxide (DEBROX) 6.5 % otic solution 6.5 %. 0 drop 0 08/11/2012 cloNIDine (CATAPRES) 0.1 mg tablet Take 3 tablets (0.3 mg total) by mouth daily diphenhydrAMINE (BENADRYL) 25 mg capsule Take 1 tablet/capsule (25 mg total) by mouth every 6 (six) hours as needed for itching docusate sodium (COLACE) 100 mg capsuleIndication s:constipation Take 1 capsule (100 mg total) by mouth 2 (two) times a day ergocalciferol (VITAMIN D2) 50,000 unit capsule take 1 capsule by oral route every week 0 0 08/11/2012 famotidine (PEPCID) 20 mg tablet Take 1 tablet (20 mg total) by mouth 2 (two) times a day food supplemt, lactose-reduced 0.04-1.05 gram-kcal/mL liquid guaiFENesin ER (MUCINEX) 600 mg 12 hr tablet Take 400 mg by mouth Every 4-6 hours as needed cough/congestion lacosamide (VIMPAT) 100 mg tablet TAKE (2) TABLETS BY MOUTH TWICE DAILY. 120 tablet 4 03/19/2023 lacosamide (VIMPAT) 100 mg tablet TAKE (2) TABLETS BY MOUTH TWICE DAILY. 120 tablet 4 03/19/2023 loperamide (IMODIUM) 2 mg capsule Take 2 capsules (4 mg total) by mouth At onset of diarrhea, give adtl tab after each diarrheal stool up to 4 tabs a day loratadine (CLARITIN) 10 mg tablet Take 1 tablet (10 mg total) by mouth daily magnesium hydroxide (CONCENTRATED MILK of MAGNESIA) 240 mg/ mL suspension Take 30 mL by mouth every other day multivitamin tablet tablet take 2 Tablet by Oral route every day 0 0 08/11/2012 polyethylene glycol (MIRALAX) 17 gram packetIndications :constipation Take 1 packet (17 g total) by mouth daily propranolol LA (INDERAL LA) 120 mg 24 hr capsule Take 1 capsule (120 mg total) by mouth daily sodium chloride (OCEAN) 0.65 % nasal spray Administer 2 sprays into each nostril as needed cloBAZam (ONFI) 20 mg tablet TAKE (1) TABLET BY MOUTH AT BEDTIME. 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 2 each 5 05/08/2023 4 lamoTRIgine (LaMICtal) 150 mg tablet TAKE (2) TABLETS BY MOUTH THREE TIMES DAILY. 186 tablet 08/25/2018 4 documented as of this encounter Discharge Disposition Disposition Code Departure Means Destination Comment s Discharge to home or self care documented in this encounter ED Notes * Timmy Arthur MD - 05/25/2023 12:39 AM CDT HPI Chief Complaint Patient presents with Seizures BIBEMS: pt non verbal at baseline, lives at a correction. Pt has hx of seizure, facility stated he had a total of 4 tonic colonic seizure lasting a few minutes a time this evening. Pt has an implantable device which stopped the seizures. Pt back to baseline per facility. 38-year-old male with history of autism, Emmett-Gastaut syndrome with yrs, vagal nerve stimulator, on zonisamide, lacosamide and Lamictal presents with 4 separate seizures this evening. Apparently seizures were broken with magnet over the vagal nerve stimulator. No head trauma noted. No fevers or chills. Patient is back to neurologic baseline. Bedside caregiver tells me that if he has for seizures that they are supposed to bring him to the hospital. 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 Social History Tobacco Use Smoking status: Never Smokeless tobacco: Never Substance and Sexual Activity Alcohol use: No Drug use: No Sexual activity: Never Social History Social History Narrative Not on file Review of Systems Review of Systems Unable to perform ROS: Patient nonverbal Constitutional: Negative for fever. Gastrointestinal: Negative for vomiting. Neurological: Positive for seizures. Physical Exam ED Triage Vitals [05/24/23 2350] Temp Pulse Resp BP SpO2 36.3 ??C (97.3 ??F) 68 17 108/74 95 % Temp src Heart Rate Source Patient Position BP Location FiO2 (%) Temporal -- -- -- -- Height Height Method Weight Weight Method 1.651 m (5' 5 ) Stated 81.6 kg (180 lb) Bed scale Physical Exam Vitals and nursing note reviewed. Constitutional: General: He is not in acute distress. Appearance: He is not ill-appearing or toxic-appearing. HENT: Head: Atraumatic. Eyes: Extraocular Movements: Extraocular movements intact. Cardiovascular: Rate and Rhythm: Normal rate and regular rhythm. Pulses: Normal pulses. Heart sounds: No murmur heard. Pulmonary: Effort: Pulmonary effort is normal. Breath sounds: Normal breath sounds. No wheezing, rhonchi or rales. Abdominal: General: Abdomen is flat. Bowel sounds are normal. Palpations: Abdomen is soft. Tenderness: There is no abdominal tenderness. There is no guarding or rebound. Musculoskeletal: General: No deformity. Cervical back: Normal range of motion. No tenderness. Right lower leg: No edema. Left lower leg: No edema. Skin: General: Skin is warm and dry. Neurological: Mental Status: He is alert. Mental status is at baseline. [facility] Medical Decision Making 38-year-old male with previously mentioned history presents with recurrent seizure. He does have frequent seizure despite higher ranges of antiepileptic medications. He is back to neurologic baselineat this time. Will evaluate for electrolyte disturbance such as hyponatremia, no symptoms of infection at this time such as cough, vomiting, URI. Suspect breakthrough seizure, will likely discharge home if labs appear within normal limits Amount and/or Complexity of Data Reviewed Labs: Decision-making details documented in ED Course. ECG/medicine tests: ordered and independent interpretation performed. Details: Normal sinus rhythm with a rate of 68, no ST elevation, QTC 392 Attending Summary of Care ED Course as of 05/25/23419 Time: 05/24 48 Value: Alk phos(!): 164 Comment: Baseline By: Timmy Arthur MD Breakthrough seizure (CMS/HCC) ([facility]) Timmy Arthur MD 05/25/23419 * Joe Sparrow RN - 05/24/2023 11:48 PM CDT BIBEMS: pt non verbal at baseline, lives at a correction. Pt has hx of seizure, facility stated he had a total of 4 tonic colonic seizure lasting a few minutes a time this evening. Pt has an implantable device which stopped the seizures. Pt back to baseline per facility. * Swapna Mcbride RN - 05/24/2023 11:45 PM CDT Bed: ED06 Expected date: Expected time: Means of arrival: Comments: 241 seizure Swapna Mcbride RN 05/24/23 0110 documented in this encounter Plan of Treatment Not on file documented as of this encounter Procedures Procedure Name Priority Date/Time Associated Diagnosis Comments EGFR STAT 05/24/2023 11:57 PM CDT DIFFERENTIAL AUTO STAT 05/24/2023 11: 57 PM CDT CBC WITH AUTO DIFFERENTIAL STAT 05/24/2023 11:57 PM CDT COMPREHENSIVE METABOLIC PANEL STAT 05/24/2023 11:57 PM CDT ECG 12-LEAD STAT 05/24/2023 11:50 PM CDT documented in this encounter Results * eGFR (05/24/2023 11:57 PM CDT) eGFR 78 >=60 mL/min/1. 73 m2 Comment: Interpretive Data Reference Interval Normal ?>/= 90 mL/min/1.73m2 Mildly decreased* ? 60 - 89 mL/min/1.73m2 Mildly to moderately decreased ?45 - 59 mL/min/1.73m2 Moderately to severely decreased ??30 - 44 mL/min/1.73m2 Severely decreased ?15 - 29 mL/min/1.73m2 Kidney Failure ?< 15 ??mL/min/1.73m2 *Relative to young adult level Estimated glomerular filtration rate is determined by the 2020 CKD-EPI equation recommended by the National Kidney Foundation (A Unifying Approach to GFR Estimation: Recommendations of the NKF-ASK Task Force on Reassessing the Inclusion of Race in Diagnosing Kidney Disease, JASN 2020). The CKD-EPI equation should not be used for patients with unstable renal function and has not been validated in children and those over 70. Current interpretive data was last reviewed 2020. Blood 05/24/2023 11:5 7 PM CDT 05/25/2023 us Timmy Arthur MD LAB BLOOD ORDERABLES Marissa choi Result [facility] [address] Department [place] [address] * Differential, auto (05/24/2023 11:57 PM CDT) Neutrophil abs 2.9 1.5 - 6.5 K/cumm Imm gran abs 0.0 0.0 - 0.1 K/cumm [facility] Lymphocyte abs 2.3 0.8 - 3.3 K/cumm [facility] Monocyte abs 0.5 0.2 - 0.8 K/cumm [facility] Eosinophil abs 0.1 0.0 - 0.5 K/cumm [facility] Basophil abs 0.0 0.0 - 0.1 K/cumm [facility] Neutrophil pct 49.2 % [facility] Comment: Interpretive Data Percent cell count reference ranges are not reported, since discordance with absolute values may lead to misinterpretation of CBC data. Current Interpretive Data was last revised on 2017. Imm gran pct 0.3 % [facility] Comment: Interpretive Data Percent cell count reference ranges are not reported, since discordance with absolute values may lead to misinterpretation of CBC data. Current Interpretive Data was last revised on 2017. Lymphocyte pct 38.6 % [facility] Comment: Interpretive Data Percent cell count reference ranges are not reported, since discordance with absolute values may lead to misinterpretation of CBC data. Current Interpretive Data was last revised on 2017. Monocyte pct 9.0 % [facility] Comment: Interpretive Data Percent cell count reference ranges are not reported, since discordance with absolute values may lead to misinterpretation of CBC data. Current Interpretive Data was last revised on 2017. Eosinophil pct 2.4 % [facility] Comment: Interpretive Data Percent cell count reference ranges are not reported, since discordance with absolute values may lead to misinterpretation of CBC data. Current Interpretive Data was last revised on 2017. Basophil pct 0.5 % [facility] Comment: Interpretive Data Percent cell count reference ranges are not reported, since discordance with absolute values may lead to misinterpretation of CBC data. Current Interpretive Data was last revised on 2017. Blood 05/24/2023 11:5 7 PM CDT 05/25/2023 us Timmy Arthur MD LAB BLOOD ORDERABLES Marissa choi Result [facility] [address] [facility] Department [place] [address] * (ABNORMAL) Comprehensive metabolic panel (05/24/2023 11:57 PM CDT) Sodium 140 135 - 145 mmol/L Potassium, pl 3.5 3.3 - 4.9 mmol/L [facility] Chloride 104 97 - 110 mmol/L [facility] CO2 27 22 - 32 mmol/L [facility] Anion gap 9 2 - 15 mmol/L [facility] BUN 17 6 - 25 mg/dL [facility] Creatinine 1.23 0.80 - 1.30 mg/dL [facility] Glucose 71 70 - 199 mg/dL [facility] Comment: Interpretive Data Fasting glucose >/= 126 mg/dl is diagnostic for diabetes. ?? Fasting is defined as no caloric intake for at least 8 hours. Fasting glucose between 100 mg/dl to 125 mg/dl is diagnostic of prediabetes. In a patient with classic symptoms of hyperglycemia or hyperglycemic crisis, a random glucose >/= 200 mg/dl is diagnostic for diabetes. In the absence of unequivocal hyperglycemia, results should be confirmed by repeat testing. The classification and Diagnosis of Diabetes Diabetes Care 202; 46: S19-S40. Current interpretive data was last revised 2022. Calcium 9.9 8.5 - 10.3 mg/dL [facility] Bilirubin, total 0.2 0.1 - 1.2 mg/dL [facility] Protein, pl 7.7 6.5 - 8.5 g/dL [facility] Albumin 4.7 3.5 - 5.0 g/dL [facility] Alk phos 164(H) 40 - 130 Units/L [facility] ALT 63(H) 7 - 55 Units/L [facility] AST 36 10 - 50 Units/L [facility] Blood 05/24/2023 11:5 7 PM CDT 05/25/2023 us Timmy Arthur MD LAB BLOOD ORDERABLES Marissa steph Result [address] Department [place] [address] * CBC with auto differential (05/24/2023 11:57 PM CDT) WBC 5.9 3.8 - 9.9 K/cumm Hgb 14.2 13.0 - 17.5 g/dL [facility] Hct 40.9 38.9 - 50.3 % [facility] Plt 200 150 - 400 K/cumm [facility] MPV 9.1 9.1 - 12.3 fL [facility] RBC 4.40 4.30 - 5.80 M/cumm [facility] MCV 93.0 81.3 - 96.4 fL [facility] MCH 32.3 27.1 - 33.3 pg [facility] MCHC 34.7 32.3 - 35.7 g/dL [facility] RDW CV 13.2 11.1 - 14.9 % [facility] RDW SD 44.6 35.7 - 48.1 fL [facility] NRBC abs 0.00 0.00 - 0.01 K/cumm [facility] Blood 05/24/2023 11:5 7 PM CDT 05/25/2023 Timmy Arthur MD LAB BLOOD ORDERABLES Marissa l Result Performing Organization Address [facility]/State/ZIP Co de Phone Number [address] Department [place] [address] * ECG 12 lead (05/24/2023 11:50 PM CDT) 05/24/2023 11:[address] [facility] - 05/27/2023 11:28 AM CDT Vent Rate: 68 bpm RR Interval: 872 msec [place] Interval: 187 msec QRS Duration: 104 msec QT Interval: 374 msec QTC Interval: 392 msec P-R-T [place]: 15 - 12 - 30 degrees IMPRESSION: SINUS RHYTHM NONSPECIFIC T-WAVE ABNORMALITY BORDERLINE ECG Electronically Signed By: Gulshan Gillis DO, [facility] us Timmy Arthur MD ECG ORDERABLES Final Res ult [facility] documented in this encounter Visit Diagnoses Diagnosis Breakthrough seizure (CMS/HCC) (HCC)- Primary documented in this encounter Care Teams [employer]man Relationship Specialty Start Date End Date Gulshan Mena DO [address] [place] [address] PCP - General 05/11/16 documented as of this encounter
--- OUTSIDE RECORDS SUMMARY | 2024-02-12 05:06 | XMS_ITS | Encounter Summary ---
Author Organization [facility] Health Address [address] [place] [address] Care Team Providers Care Travel Guide Name Role Phone Gulshan Mena MD Primary Care Provider [phone] Reason for Visit * Reason Comments Refill Request Encounter Details Date Type Department Care Team (Late st Contact Info) Description 01/12/2015 Refill [facility] - GI [address] [place] [address] Rashi Vazquez MD [address] [facility] [address] [place] [address] Refill Request Social History Tobacco Use Types Packs/Day Years [...] Telephone Encounter - Audra Steele RN - 01/12/2015 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 B TECHNICIAN documented in this encounter Plan of Treatment Not on file documented as of this encounter Visit Diagnoses Not on filedocumented in this encounter Care Teams Travel Guide Relationship Specialty Start Date End Date Gulshan Mena MD [address] [place] [address] PCP - General Family Medicine 12/19/09 documented as of this encounter
--- OUTSIDE RECORDS SUMMARY | 2024-02-12 05:06 | XMS_ITS | Referral Summary ---
Author Organization [facility] Medical Office Building 3 Address [address] [place] [address] Care Team Providers Care Surgical Garment Assembler Name Role Phone Gulshan Mena DO Primary Care Provider Encounters Date Type Department Care Team Description 02/11/2024 Orders Only [facility] Medical [facility] Neurology [address] [address] Jn Noble DO 02/11/2024 Telephone [facility] Neurology [address] [address] Jn Noble, Med Management 01/29/2024 Telephone [facility] Neurology [address] [address] Jn Noble, Rash 01/13/2024 Telephone [facility] Neurology [address] [address] Jn Noble DO Med Management 01/13/2024 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 Office Visit [facility] Neurology [address] [address] Jn Noble, 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 120 tablet 4 Active lacosamide (VIMPAT) 100 mg tablet TAKE (2) TABLETS BY MOUTH TWICE DAILY. 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 IF CONTINUES; USE 2ND DOSE IN OTHER NOSTRIL. MAX DOSE 20MG/24HRS. NO MORE THAN 5 DOSES SHOULD BE UTILIZED IN A WEEK. CALL 2 each 4 Active cloBAZam (ONFI) 20 mg tablet Take 1.5 tablets (30 mg total) by mouth nightly 45 tablet 5 2024 Active hydrOXYzine (ATARAX) 50 mg tablet [...] BY MOUTH AT BEDTIME. 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 Gender Identity Not on file Sexual Orientation [...] cm (5' 5 ) 01/13/2024 10:54 AM NOCTURNIST PHYSICIAN Body Mass Index 27.46 11/06/2023 9:56 AM CDT Plan of Treatment Not on file Medical Devices Implanted Type Area Electric Mule Driver Device Identifier Shelf Expiration Date Model / Serial / Lot Vns Chest Insurance [facility] Member Subscriber Plan / Payer (Ef fective 2016-Present) Name:TRAVIS RYDER Relation to Subscriber:Self Name:Travis Ryder Payer ID:[id number] Group ID:Not on file Type:MEDICAID [place] Address: [place] [id number] [place] [employer] Care Teams Surgical Garment Assembler Relationship Specialty Start Date End Date Gulshan Mena DO [address] [place] [address] PCP - General 05/11/16
--- OUTSIDE RECORDS SUMMARY | 2024-02-12 05:06 | XMS_ITS | Encounter Summary ---
Author Organization [facility] Address [address] [place] [address] Care Team Providers Care Senior Linux Unix Administrator Name Role Phone Gulshan Mena DO Primary Care Provider [phone] Encounter Details Date Type Department Care Team (Late st Contact Info) Description 05/08/2023 10:45 AM CDT Lab [address] [address] Refractory generalized nonconvulsive epilepsy (HCC) Social History [...] on file Legal Sex Male 12:55 PM GLASS BELT SANDER Gender Identity Not on file Sexual Orientation Not on file documented as of this encounter Miscellaneous Notes * Result Encounter Note - Tosha Elaine PA - 05/10/2023 11:26 AM CDT Please call pt and inform them that their labs were normal documented in this encounter Plan of Treatment Not on file documented as of this encounter Procedures Procedure Name Priority Date/Time Associated Diagnosis Comments LACOSAMIDE Routine 05/08/2023 11:00 AM CDT Refractory generalized nonconvulsive epilepsy (HCC) ZONISAMIDE LEVEL Routine 05/08/2023 11:0 0 AM CDT Refractory generalized nonconvulsive epilepsy (HCC) LAMOTRIGINE LEVEL Routine 05/08/2023 11: 00 AM CDT Refractory generalized nonconvulsive epilepsy (HCC) documented in this encounter Results * Lamotrigine level (05/08/2023 11:00 AM CDT) Lamotrigine 16.6 3.0 - 15.0 mcg/mL [place] [facility] Comment: ADDITIONAL INFORMATION This test was developed and its performance characteristics determined by [facility] in a manner consistent with CLIA requirements. This test has not been cleared or approved by the U.S. Food and Drug Administration. Test Performed by: [facility] - [place] [id number] Pathology Secretary/Transcriptionist: Jim Quispe M.D. Ph.D.; CLIA# [id number] Blood 05/08/2023 11:0 0 AM CDT 05/08/2023 11:01 AM CDT us Tosha ADAMS LAB BLOOD ORDERABLES Final Resul t [facility]ERNER [facility] [address] [facility] Department [place] [address] [place] ref [facility] * Zonisamide level (05/08/2023 11:00 AM CDT) Zonisamide 31 10 - 40 mcg/mL [place] [facility] Comment: ADDITIONAL INFORMATION This test was developed and its performance characteristics determined by [facility] in a manner consistent with CLIA requirements. This test has not been cleared or approved by the U.S. Food and Drug Administration. Test Performed by: [facility] [place] [address] Pathology Secretary/Transcriptionist: Jim Quispe M.D. Ph.D.; CLIA# [id number] Blood 05/08/2023 11:0 0 AM CDT 05/08/2023 11:01 AM CDT Tosha ADAMS LAB BLOOD ORDERABLES Final Resul t Performing Organization Address [facility] Co de Phone Number [address] [place] [address] [place] [facility] * (ABNORMAL) Lacosamide level (05/08/2023 11:00 AM CDT) Lacosamide 12.1(H) 1.0 - 10.0 mcg/mL [place] [facility] Comment: ADDITIONAL INFORMATION This test was developed and its performance characteristics determined by [facility] in a manner consistent with CLIA requirements. This test has not been cleared or approved by the U.S. Food and Drug Administration. Test Performed by: [facility] [employer] - [place] [id number] Pathology Secretary/Transcriptionist: Jim Quispe M.D. Ph.D.; CLIA# [id number] Blood 05/08/2023 11:0 0 AM CDT 05/08/2023 11:01 AM CDT Tosha ADAMS LAB BLOOD ORDERABLES Final Resul t Performing Organization Address City/[facility] Co de Phone Number [address] [address] [place] [facility] documented in this encounter Visit Diagnoses Diagnosis Refractory generalized nonconvulsive epilepsy (HCC) documented in this encounter Care Teams Senior Linux Unix Administrator Relationship Specialty Start Date End Date Gulshan Mena DO [address] [place] [address] PCP - General 05/11/16 documented as of this encounter
--- OUTSIDE RECORDS SUMMARY | 2024-02-12 05:06 | XMS_ITS | Encounter Summary ---
Author Organization [facility] Healthcare Address [address] [place] [address] Care Team Providers Care Jet Ski Mechanic Name Role Phone Gulshan Mena DO Primary Care Provider Reason for Visit * Reason Onset Date Comments Rash 01/29/2024 Encounter Details Date Type Department Care Team (Late st Contact Info) Description 01/29/2024 Telephone [facility] Neurology at [place] [address] [place] [id number] Jn Noble DO [address] [place] [address] Rash Social History Tobacco Use Types Packs/Day Years [...] on file Legal Sex Male 12:55 PM KILN BURNER Gender Identity Not on file Sexual Orientation Not on file documented as of this encounter Miscellaneous Notes * Telephone Encounter - Jess Campos LPN - 01/29/2024 1:55 PM KILN BURNER Destini made aware. Called [facility] to d/c med and add to allergy list per Destini's request. BURNER * Telephone Encounter - Meg Lee LPN - 01/29/2024 1:17 PM KILN BURNER LVM with Destini and let her know pt can stop the Epidolex. BURNER * Telephone Encounter - Jn Noble DO - 01/29/2024 12:59 PM CST Please note in his chart that he is allergic to Epidiolex and yes he should stop it BURNER * Telephone Encounter - Darryl Chacon - 01/29/2024 12:28 PM CST Patient's caregiver, Destini, said patient developed a rash over the weekend. It started on arms andlegs. It has now spread all over. It is itchy hives. He went to urgent care and was prescribed pridnisone. This has helped with redness but it still seems like he is itchy. She wants to know if you think it is he new med he started.- Epidiolex. Do you think he should stopthis med? [phone] BURNER documented in this encounter Plan of Treatment Not on file documented as of this encounter Visit Diagnoses Not on filedocumented in this encounter Care Teams Jet Ski Mechanic Relationship Specialty Start Date End Date Gulshan Mena DO [address] [place] [address] PCP - General 05/11/16 documented as of this encounter
--- OUTSIDE RECORDS SUMMARY | 2024-02-12 05:06 | XMS_ITS | Encounter Summary ---
Author Organization [facility] Health Address [address] [facility] [place] [address] Care Team Providers Care Cutting Table Operator Name Role Phone Gulshan Mena MD Primary Care Provider [phone] Reason for Visit * Reason Comments Follow-up Discuss Surgery Encounter Details Date Type Department Care Team (Late st Contact Info) Description 04/29/2018 11:00 AM CDT Office Visit [facility] [address] [place] [address] Michi Longo MD [address] [address] Status post VNS (vagus nerve stimulator) placement [...] Sign Reading Time Taken Comments Blood Pressure 104/66 04/29/2018 11:03 AM CDT Pulse 67 04/29/2018 11:03 AM CDT Temperature - - Respiratory Rate - - Oxygen Saturation - - Inhaled Oxygen Concentration - - Weight 83.9 kg (185 lb) 04/29/2018 11:03 AM CDT Height 167.6 cm (5' 6 ) 04/29/2018 11:03 AM CDT Body Mass Index 29.86 04/29/2018 11:03 AM CDT documented in this encounter Progress Notes * Michi Longo MD - 04/29/2018 11:25 AM CDT Note from resident reviewed, edited, patient seen and examined, no new images to review, and situation discussed with patient's group product manager. For additional details please refer to communication to referring physician. * Rah Rinaldi MD - 04/29/2018 10:53 AM CDT Neurosurgery Clinic Progress Note Chief Complaint (CC): Status post vagal nerve stimulator, generator replacement HISTORY OF PRESENT ILLNESS (HPI): Patient is a 33 year old male with history of Emmett-Gastaut syndrome, autism spectrum disorder, mental retardation, refractory generalized non-convulsive epilepsy, currently on four different antiepileptic medication, who underwent a left sided vagal nerve stimulator (VNS) placement in 2013. Patient was last seen in clinic on 10/04/18 for concerns of possible battery approximating its end of life. Battery was interrogated and found to be above 70% of life. Since last visit, per health partner, patient has continued to have seizure episodes at least once a month despite having a functioning VNS. Instructions were given for patient to come to clinic due to seizures refractory to medical and surgical management. Today, patient presents for pre operative evaluation in light of evidence demonstrating better seizure control with Sentiva battery. PMH: Past Medical History: Diagnosis Date ??? ADHD (attention deficit hyperactivity disorder) ??? Aggression - adjustment disorder ??? Autism ??? MR (mental retardation) severe ??? Seizure disorder last one 02/13/2014 ??? Static encephalopathy PSH: Past Surgical History: Procedure Laterality Date ??? EGD 12/20/09 Marcu--gastritis ??? OTHER SURGERY 10/2013 V and S inplanted Meds: Current Outpatient Prescriptions Medication ??? acetaminophen (TYLENOL) 325 MG tablet ??? busPIRone (BUSPAR) 10 MG tablet ??? carbamide peroxide (DEBROX) 6.5 % otic solution ??? Chlorpheniramine-Phenylephrine 4-10 MG ??? cloBAZam (ONFI) 10 MG tablet ??? cloNIDine (CATAPRES) 0.1 MG tablet ??? Dextromethorphan-Guaifenesin (ROBITUSSIN DM PO) ??? docusate sodium (COLACE) 100 MG capsule ??? Fexofenadine HCl (MUCINEX ALLERGY PO) ??? lacosamide (VIMPAT) 200 MG tablet ??? lamoTRIgine (LAMICTAL) 150 MG tablet ??? levETIRAcetam (KEPPRA) 750 MG tablet ??? loratadine (CLARITIN) 10 MG tablet ??? Magnesium Hydroxide (MILK OF MAGNESIA PO) ??? multivitamin daily (THERAGRAN) tablet ??? Nutritional Supplements (ENSURE NUTRITION SHAKE PO) ??? Polyethylene Glycol 3350 (MIRALAX PO) ??? raNITIdine (ZANTAC) 150 MG tablet ??? SALINE NASAL SPRAY NA ??? VITAMIN D PO No current facility-administered medications for this visit. Allergies Allergies Allergen Reactions ??? Amoxicillin ??? Dilantin [Phenytoin Sodium] ??? Tegretol [Carbamazepine] Social: Social History Substance Use Topics ??? Smoking status: Never Smoker ??? Smokeless tobacco: Never Used ??? Alcohol use No Family: No family history on file. REVIEW OF SYSTEMS Pertinent items are noted in HPI. PHYSICAL EXAM There were no vitals taken for this visit. General: no acute distress Neuro: awake, alert, [...] +2 and symmetric bilaterally. Gait is unsteady. Incisions are well healed for age without surrounding erythema. RADIOLOGY: No new neuroimaging. Assessment/Plan: Travis Beebe is a 33 year old male with [place]-Gastaut syndrome, autism spectum disorded, mental retardation, refractory generalized non-convulsive epilepsy currently on four different antiepilepticmedications who underwent a left sided vagal nerve stimulator placement in 2014 who is here today for pre operative evaluation for generator replacement. Patient's seizure are not under controlled with current VNS system. Updated evidence demonstrates better seizure control with new Sentiva generator. Will plan for left chest VNS generator replacement for a Sentiva generator on 05/07/18. Rah Rinaldi MD 04/29/2018 10:53 AM documented in this encounter Plan of Treatment Not on file documented as of this encounter Visit Diagnoses Diagnosis Status post VNS (vagus nerve stimulator) placement- Primary Other postprocedural status documented in this encounter Care Teams Cutting Table Operator Relationship Specialty Start Date End Date Gulshan Mena MD [address] [place] [address] PCP - General Family Medicine 12/19/09 documented as of this encounter
--- OUTSIDE RECORDS SUMMARY | 2024-02-12 05:06 | XMS_ITS | Encounter Summary ---
Author Organization [facility] Address [address] [address] Care Team Providers Care Lamination Operator Name Role Phone Gulshan Mena MD Primary Care Provider [phone] Reason for Visit * Reason Comments Vomiting liquid diet x 2 week s - improved vomiting - none for 1 week Encounter Details Date Type Department Care Team (Late st Contact Info) Description 12/19/2009 2:20 PM INSIDE SALES SPECIALIST Office Visit [facility] [address] [place] [address] Rashi Vazquez MD [address] [place] [address] Nausea & vomiting (Primary Dx); Loss of weight; Autistic disorder, current or active state (HCC); Unspecified mental retardation Social History Tobacco Use Types Packs/Day Years [...] Sign Reading Time Taken Comments Blood Pressure 104/62 12/19/2009 2:35 PM INSIDE SALES SPECIALIST Pulse - - Temperature - - Respiratory Rate - - Oxygen Saturation - - Inhaled Oxygen Concentration - - Weight 64.8 kg (142 lb 12.8 oz) 12/19/2009 2:35 PM INSIDE SALES SPECIALIST Height 170.2 cm (5' 7 ) 12/19/2009 2:35 PM INSIDE SALES SPECIALIST Body Mass Index 22.37 12/19/2009 2:35 PM INSIDE SALES SPECIALIST documented in this encounter Progress Notes * Melba Velasquez - 12/20/2009 12:47 PM CSTAddended by: MELBA VELASQUEZ on: 12/20/2009 Modules accepted: Level of Service DE SALES SPECIALIST * Audra Steele RN - 12/19/2009 4:12 PM CST Instructions and papers given to pt's caregivers. DE SALES SPECIALIST * Rashi Vazquez MD - 12/19/2009 3:11 PM CST GI Consult Note: I was asked to see Travis Beebe by Gulshan Mena MD for evaluation of nausea, vomiting, and weight loss Thank you for this kind consultation. Subjective: Travis Beebe is an 24 y.o. male, with autism, mental retardation and history of seizures (he is essentially non-verbal), without significant past GI medical history, who presents for evaluation of Nausea / Vomiting Patient complains of nausea and vomiting. Onset of symptoms was 2 weeks ago, when the serum Lamictal level was high. Seen previously for this?: no. The caregiver describes symptoms as nausea: moderate, essentially resolved 1 week ago vomiting: occurring many times over past 2 weeks (no more vomiting over the last week). Course to date has been gradually improving. Evaluation to date has been none. Treatment to date has been none.He has been on liquid diet for the last 2 weeks, and he lost 8 lbs. Allergies Allergen Reactions ??? Dilantin (Phenytoin Sodium) ??? Amoxicillin ??? Tegretol (Carbamazepine) Meds: Current outpatient prescriptions Medication Sig Dispense Refill ??? propranolol CR 24hr (INDERAL LA) 160 [...] (ENSURE PO) 1 Can 2 times daily. Past Medical History Diagnosis Date ??? Seizure disorder ??? MR (mental retardation) severe ??? Static encephalopathy ??? ADHD (attention deficit hyperactivity disorder) ??? Aggression - adjustment disorder ??? Autism No past surgical history on file. No family history on file. Patient denies family history of colorectal cancer, polyps, inflammatory bowel disease, chronic liver or pancrease diseases. History Substance Use Topics ??? Tobacco Use: Never ??? Alcohol Use: No Review of Systems: [...] described above and in HPI. Objective: BP 104/62 Wt 142 lb 12.8 oz (64.774 kg) General: alert, not cooperative, no distress, non verbal, wearing a soft helmet Skin: Normal. and no rash or abnormalities [...] nerves 2-12 and sensation grossly intact. Psychiatric: non focal, with normal mood and memory I reviewed all pertinent labs and radiology data. No results found for this basename: CREATININE:3,BUN:3,SODIUM:3,POTASSIUM:3 in the last 81192 hours No results found for this basename: WBC:3,HGB:3,PLTCOUNT:3,MCV:3,INR:3 in the last 05661 hours No results found for this basename: AST:3,ALT:3,ALKPHOS:3,TBIL:3,DBIL:3,ALBUMIN:3,LIPASE:3,AMYLASE:3 in the last 66703 hours No results found for this basename: FERRITIN:3,IRON:3,SATURATION:3,TSH:3 in the last 25773 hours Assessment: 1. Nausea & vomiting (787.01H) 1. Nausea and vomiting for 3 weeks (significanly improved over the last week), occuring initially when the Lamictal level was high; he has been on liquid diet since then, and he had a weight loss of 8 lbs (probably due to poor nutrition). The nausea and vomiting were probably side effects of medication, but would also rule out gastritis, peptic ulcer disease, and peptic esophagitis Plan: 1. Schedule for upper endoscopy for tomorrow. 2. Consider starting a proton pump inhibitor 3. More recommendation to follow, depending on the findings seen during the endoscopy. 4. The risks and benefits of my recommendations, as well as other treatment options were discussed with the adult counselor marriage and family today. Questions were answered. 5. Follow up: as needed DE SALES SPECIALIST documented in this encounter Plan of Treatment Not on file documented as of this encounter Visit Diagnoses Diagnosis Nausea & vomiting- Primary Nausea with vomiting Loss of weight Autistic disorder, current or active state (HCC) Autistic disorder, current or active state Unspecified intellectual disabilities documented in this encounter Care Teams Lamination Operator Relationship Specialty Start Date End Date Gulshan Mena MD [address] [place] [address] PCP - General Family Medicine 12/19/09 documented as of this encounter
--- OUTSIDE RECORDS SUMMARY | 2024-02-12 05:06 | XMS_ITS | Encounter Summary ---
Author Organization [facility] Health Address [address] [place] [place] [address] Care Team Providers Care Planting Machine Operator Name Role Phone Gulshan Mena MD Primary Care Provider Reason for Visit * Reason Comments Establish Care VNS Encounter Details Date Type Department Care Team (Late st Contact Info) Description 10/03/2017 10:45 AM CDT Office Visit [facility] [address] [place] [address] Michi Longo MD [address] [place] [address] Status post VNS (vagus nerve stimulator) placement [...] Sign Reading Time Taken Comments Blood Pressure 116/70 10/03/2017 11:01 AM CDT Pulse 69 10/03/2017 11:01 AM CDT Temperature - - Respiratory Rate - - Oxygen Saturation - - Inhaled Oxygen Concentration - - Weight 83.9 kg (185 lb) 10/03/2017 11:01 AM CDT Height 167.6 cm (5' 6 ) 10/03/2017 11:01 AM CDT Body Mass Index 29.86 10/03/2017 11:01 AM CDT documented in this encounter Patient Instructions * Patient Instructions* Felicitas Chou - 10/03/2017 11:17 AM CDT Follow up once battery is low For any questions please call Felicitas [phone] documented in this encounter Progress Notes * Michi Longo MD - 10/06/2017 11:04 AM CDT Note from resident reviewed, edited, patient seen and examined, no new images to review, and situation discussed with patient and any and all family present. For additional details please refer to communication to referring physician. * Koby Almanza MD - 10/04/2017 12:52 AM CDT Images from the original note were not included. Neurosurgery Clinic Progress Note Chief Complaint (CC): Status post vagal nerve stimulator, concerns for battery approaching end of life HISTORY OF PRESENT ILLNESS (HPI): Travis Beebe is a 32 year-old male with history of Bruce-Gastaut syndrome, autism spectum disorded, mental retardation, refractory generalized non- convulsive epilepsy currently on four different antiepileptic medications(zonisamide, lacosamide, lamotrigine, onfi) who underwent a left sided vagal nerve stimulator placement in 2013. Patient is unable to provide any significant history, he is accompanied today by his nurse. He has 12 to 25 seizures over a month period. Onset of seizures is reported back to 1997. He was sent to our office with concerns that the battery is nearing the end of itslife. Vagal nerve stimulator device was interrogated during this visit and the battery was found above 70%(images attached). Incisions are clean dry well healed without surrounding erythema. PMH: Past Medical History: Diagnosis Date ??? ADHD (attention deficit hyperactivity disorder) ??? Aggression - adjustment disorder ??? Autism ??? MR (mental retardation) severe ??? Seizure disorder last one 02/13/2014 ??? Static encephalopathy PSH: Past Surgical History: Procedure Laterality Date ??? EGD 12/20/09 Marcu--gastritis ??? OTHER SURGERY 10/2013 V and S inplanted Meds: Current Outpatient Prescriptions Medication ??? cloBAZam (ONFI) 10 MG tablet ??? raNITIdine (ZANTAC) 150 MG tablet ??? cloNIDine (CATAPRES) 0.1 MG tablet ??? Magnesium Hydroxide (MILK OF MAGNESIA PO) ??? acetaminophen (TYLENOL) 325 MG tablet ??? Chlorpheniramine-Phenylephrine 4-10 MG ??? Dextromethorphan-Guaifenesin (ROBITUSSIN DM PO) ??? Fexofenadine HCl (MUCINEX ALLERGY PO) ??? Nutritional Supplements (ENSURE NUTRITION SHAKE PO) ??? Polyethylene Glycol 3350 (MIRALAX PO) ??? SALINE NASAL SPRAY NA ??? carbamide peroxide (DEBROX) 6.5 % otic solution ??? multivitamin daily (THERAGRAN) tablet ??? loratadine (CLARITIN) 10 MG tablet ??? docusate sodium (COLACE) 100 MG capsule ??? lacosamide (VIMPAT) 200 MG tablet ??? lamoTRIgine (LAMICTAL) 150 MG tablet ??? busPIRone (BUSPAR) 10 MG tablet ??? VITAMIN D PO ??? levETIRAcetam (KEPPRA) 750 MG tablet No current facility-administered medications for this visit. Allergies Allergies Allergen Reactions ??? Amoxicillin ??? Dilantin [Phenytoin Sodium] ??? Tegretol [Carbamazepine] Social: Social History Substance Use Topics ??? Smoking status: Never Smoker ??? Smokeless tobacco: Never Used ??? Alcohol use No Family: No family history on file. PHYSICAL EXAM BP 116/70 (BP SITE: LEFT ARM, BP POSITION: SITTING, BP CUFF SIZE: 11) Pulse 69 Ht 5' 6 (1.676 m) Wt 185 lb (83.9 kg) BMI 29.86 kg/m2 General: No acute distress Cardiovascular: Regular rate Respiratory: non-labored breathing Abdominal: [...] well healed for age without surrounding erythema. Assessment/Plan: Travis Beebe has Emmett-Gastaut syndrome, autism spectum disorded, mental retardation, refractory generalized non-convulsive epilepsy currently on four different antiepileptic medications(zonisamide, lacosamide, lamotrigine, onfi) who underwent a left sided vagal nerve stimulator placement in 2013who is here today with concerns that the battery is nearing the end of its life. Vagal nerve stimulator device was interrogated during this visit and the battery was found above 70%(images attached). There is no need for battery replacement at the current time. Please continue regular interrogations and have the patient follow up in our clinic once the battery level is low. Koby Almanza MD 10/04/2017 12:52 AM documented in this encounter Plan of Treatment Not on file documented as of this encounter Visit Diagnoses Diagnosis Status post VNS (vagus nerve stimulator) placement- Primary Other postprocedural status documented in this encounter Care Teams Planting Machine Operator Relationship Specialty Start Date End Date Gulshan Mena MD [address] [place] [address] PCP - General Family Medicine 12/19/09 documented as of this encounter
--- OUTSIDE RECORDS SUMMARY | 2024-02-12 05:06 | XMS_ITS | Encounter Summary ---
Author Organization [facility] Address [address] [place] [address] Care Team Providers Care Weigh Tank Operator Name Role Phone Gulshan Mena MD Primary Care Provider [phone] Encounter Details Date Type Department Care Team (Latest Contact Info) Description 04/29/2018 12:30 PM CDT - 04/29/2018 11:59 PM T Hospital Encounter [facility] OP DRAW STATION [address] [place] [phone] Melyssa Erickson MD [address] [facility] [address] [place] [phone] Discharge Disposition: Home or Self Care Social [...] Reasons: Stuffy Nose SALINE NASAL SPRAY NA [place] into the nose as needed VITAMIN D [...] Procedure Name Priority Date/Time Associated Diagnosis Comments BASIC METABOLIC PANEL (CALCIUM TOTAL) Routine 04/29/2018 1:21 PM CDT Pre-op testing documented in this encounter Results * CBC WITH DIFFERENTIAL (05/01/2018 9:22 AM CDT) [facility] WBC 5.9 3.5 - 10.5 10? 3 /uL 05/01/2018 9:51 AM [facility] RBC 4.61 4.30 - 5.70 10? 6 /uL 05/01/2018 9:51 AM [facility] Hemoglobin 14.7 13.5 - 17.5 g/dL 05/01/2018 9:51 AM [facility] Hematocrit 42.4 39.0 - 50.0 % 05/01/2018 9:51 AM [facility] MCV 92.0 81.0 - 97.0 fL 05/01/2018 9:51 AM [facility] MCH 31.9 28.0 - 34.0 pg 05/01/2018 9:51 AM [facility] MCHC 34.7 32.0 - 36.0 g/dL 05/01/2018 9:51 AM [facility] Platelet Count 212 150 - 400 10? 3 /uL 05/01/2018 9:51 AM [facility] RDW-SD 45.0 36.0 - 50.0 fL 05/01/2018 9:51 AM [facility] RDW-CV 13.6 11.2 - 14.8 % 05/01/2018 9:51 AM [facility] MPV 9.6 9.3 - 12.8 fL 05/01/2018 9:51 AM [facility] nRBC Absolute 0.00 0 10? 3 /uL 05/01/2018 9:51 AM [facility] nRBC Auto 0.0 0 /100 WBC 05/01/2018 9:51 AM [facility] Neutrophils % 59.9 35.0 - 70.0 % 05/01/2018 9:51 AM [facility] Lymphocytes % 27.5 19.7 - 55.1 % 05/01/2018 9:51 AM [facility] Monocytes % 8.8 3.0 - 15.0 % 05/01/2018 9:51 AM [facility] Eosinophils % 3.0 0.0 - 6.0 % 05/01/2018 9:51 AM [facility] Basophil % 0.5 0.0 - 1.5 % 05/01/2018 9:51 AM [facility] Neutrophils Absolute 3.5 1.6 - 7.0 10? 3 /uL 05/01/2018 9:51 AM [facility] Lymphocyte Absolute 1.6 0.8 - 2.9 10? 3 /uL 05/01/2018 9:51 AM [facility] Monocytes Absolute 0.52 0.14 - 0.66 10? 3 /uL 05/01/2018 9:51 AM [facility] Eosinophils Absolute 0.18 0.00 - 0.45 10? 3 /uL 05/01/2018 9:51 AM [facility] Basophils Absolute 0.03 0.00 - 0.06 10? 3 /uL 05/01/2018 9:51 AM [facility] Immature Granulocytes % 0.3 0.0 - 1.0 % 05/01/2018 9:51 AM [facility] Blood BLOOD SPECIMEN / Unknown Lab Venipuncture / Unknown 05/01/2018 9:22 AM CDT 05/01/2018 9:33 AM CDT Michi Longo MD LAB - HEMATOLOGY OR DERABLES Performing Organization Address City/State/[facility] Co de Phone Number [facility] [address] [place] [address] * PT-INR [facility] (05/01/2018 9:22 AM CDT) PT 13.1 12.1 - 14.8 Seconds 05/01/2018 9:56 AM [facility] INR 1.0 See Comment 05/01/2018 9:56 AM [facility] Comment: The suggested therapeutic range for standard coumadin (warfarin) therapy is an INR of 2.0-3.0. For high-risk patients (Mechanical Mitral Valve Prosthesis, etc.), the suggested prophylactic therapeutic range is an INR of 2.5-3.5. Blood BLOOD SPECIMEN / Unknown Lab Venipuncture / Unknown 05/01/2018 9:22 AM CDT 05/01/2018 9:33 AM CDT Michi Longo MD LAB - COAGULATION O RDTOR [address] [phone] * PTT [facility] (05/01/2018 9:22 AM CDT) APTT 37.3 23.0 - 38.4 Seconds 05/01/2018 9:57 AM T [facility] Comment: Suggested therapeutic range for full dose I.V. heparin therapy for venous thromboembolism is 66.0-91.0 seconds. Blood BLOOD SPECIMEN / Unknown Lab Venipuncture / Unknown 05/01/2018 9:22 AM CDT 05/01/2018 9:33 AM CDT Michi Longo MD LAB - COAGULATION O DENIA Performing Organization Address [facility]/ZIP Co de Phone Number [address] [phone] * (ABNORMAL) BASIC METABOLIC PANEL (CALCIUM TOTAL) (04/29/2018 1:21 PM CDT) BUN 22 7 - 26 mg/dL 04/29/2018 2:36 PM [facility] Creatinine 1.0 0.6 - 1.2 mg/dL 04/29/2018 2:36 PM [facility] Sodium 140 136 - 145 mmol/L 04/29/2018 2:36 PM [facility] Potassium 3.9 3.5 - 4.5 mmol/L 04/29/2018 2:36 PM [facility] Chloride 108(H) 98 - 107 mmol/L 04/29/2018 2:36 PM [facility] CO2 19(L) 22 - 29 mmol/L 04/29/2018 2:36 PM [facility] Glucose 71 70 - 115 mg/dL 04/29/2018 2:36 PM [facility] Calcium 10.2 8.4 - 10.2 mg/dL 04/29/2018 2:36 PM [facility] Anion Gap 17 8 - 18 04/29/2018 2:36 PM [facility] BUN/Creatinine Ratio 22 7 - 23 04/29/2018 2:36 PM CDT [facility] Osmolality Calculated 292 270 - 300 mOsm/kg 04/29/2018 2:36 PM CDT [facility] eGFR >60 >60 mL/min/1.7 3 m2 04/29/2018 2:36 PM CDT [facility] Blood BLOOD SPECIMEN / Unknown Lab Venipuncture / Unknown 04/29/2018 1:21 PM CDT 04/29/2018 1:40 PM CDT Michi Longo MD LAB - CHEMISTRY ORD ERABLES [facility] [address] [phone] documented in this encounter Visit Diagnoses Diagnosis 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
--- OUTSIDE RECORDS SUMMARY | 2024-02-12 05:06 | XMS_ITS | Encounter Summary ---
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 Gender Identity Not on file Sexual Orientation Not on file documented as of this encounter Plan of Treatment Not on file documented as of this encounter Procedures Procedure Name Priority Date/Time Associated Diagnosis Comments LACOSAMIDE Routine 09/12/2023 10:37 AM CDT ZONISAMIDE LEVEL Routine 09/12/2023 10:3 7 AM CDT LAMOTRIGINE LEVEL Routine 09/12/2023 10: 37 AM CDT documented in this encounter Results * Zonisamide level (09/12/2023 10:37 AM CDT) ZONISAMIDE 39.3 10.0 - 40.0 mcg/mL [facility] Comment: (Note) This test was developed and its analytical performance characteristics have been determined by [employer]. It has not been cleared or approved by the FDA. This assay has been validated pursuant to the CLIA regulations and is used for clinical purposes. [employer] [address] [address],[address] [facility] [address] Claudia Solo MD, PhD 09/12/2023 10:3 7 AM CDT 09/12/2023 10:39 AM CDT Narrative [facility] - 09/25/2023 1:38 PM CDT FASTING:NO FASTING: NO us F Driss Noble DO LAB BLOOD ORDERABLES Final Res ult S[facility] [address] [place] [address], [address] [place] [address] * Lacosamide level (09/12/2023 10:37 AM CDT) LACOSAMIDE, LC/MS/MS 13.2 mcg/mL [facility] Comment: (Note) Expected concentrations of Lacosamide in patients receiving recommended daily dosages: Up to 15.0 mcg/mL.Toxic range not established. This test was developed and its analytical performance characteristics have been determined by [employer]. It has not been cleared or approved by the FDA. This assay has been validated pursuant to the CLIA regulations and is used for clinical purposes. [employer] [facility] [address] [address],[address] [facility] [address] Claudia Solo MD, PhD 09/12/2023 10:3 7 AM CDT 09/12/2023 10:39 AM CDT Narrative [facility] - 09/25/2023 1:38 PM CDT FASTING:NO FASTING: NO [facility] Aide DO LAB BLOOD ORDERABLES Final Res ult [facility] [address] [place] [address], [address] [place] [phone] * (ABNORMAL) Lamotrigine level (09/12/2023 10:37 AM CDT) LAMOTRIGINE 21.7(H) 2.5 - 15.0 mcg/mL [facility] Comment: (Note) This test was developed and its analytical performance characteristics have been determined by [employer]. It has not been cleared or approved by the FDA. This assay has been validated pursuant to the CLIA regulations and is used for clinical purposes. [employer] [facility] [address] [place] [address],[address] [place] [address] Claudia Solo MD, PhD 09/12/2023 10:3 7 AM CDT 09/12/2023 10:39 AM CDT Narrative [facility] - 09/25/2023 1:38 PM CDT FASTING:NO FASTING: NO [facility] Driss Howe DO LAB BLOOD ORDERABLES Final Res ult [facility] [address] [place] [address], [address] [place] [phone] documented in this encounter Visit Diagnoses Not on filedocumented in this encounter Care Teams Vamp Cut Out Worker Relationship Specialty Start Date End Date Gulshan Mena DO [facility] [place] [address] PCP - General 05/11/16 documented as of this encounter
--- OUTSIDE RECORDS SUMMARY | 2024-02-12 05:06 | XMS_ITS | Encounter Summary ---
Author Organization [facility] Address [address] [place] [address] Care Team Providers Care Marine Insurance Claim Examiner Name Role Phone Gulshan Mena MD Primary Care Provider [phone] Reason for Visit * Reason Onset Date Comments Surgery Scheduling 04/25/2018 Encounter Details Date Type Department Care Team (Late st Contact Info) Description 04/25/2018 Telephone [facility] [address] [place], [place] [id number] Felicitas Chou Surgery Scheduling Social History Tobacco [...] * Telephone Encounter - Felicitas Chou - 04/25/2018 10:53 AM CDT Left patients mom voice mail with surgery date and time. documented in this encounter Plan of Treatment Not on file documented as of this encounter Visit Diagnoses Not on filedocumented in this encounter Care Teams Marine Insurance Claim Examiner Relationship Specialty Start Date End Date Gulshan Mena MD [address] [place] [address] PCP - General Family Medicine 12/19/09 documented as of this encounter
--- OUTSIDE RECORDS SUMMARY | 2024-02-12 05:06 | XMS_ITS | Encounter Summary ---
Author Organization [facility] Healthcare Address [address] [place] [address] Care Team Providers Care Milk Receiver Tank Truck Name Role Phone Gulshan Mena DO Primary Care Provider Reason for Visit * Reason Onset Date Comments Med Management 01/13/2024 Encounter Details Date Type Department Care Team (Late st Contact Info) Description 01/13/[address] 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 It looks like it may have been printed. Could you resend this script to [facility]? P MACHINE TENDER documented in this encounter Plan of Treatment Not on file documented as of this encounter Visit Diagnoses Not on filedocumented in this encounter Care Teams Milk Receiver Tank Truck Relationship Specialty Start Date End Date Gulshan Mena DO [address] [place] [address] PCP - General 05/11/16 documented as of this encounter
--- OUTSIDE RECORDS SUMMARY | 2024-02-12 05:06 | XMS_ITS | Encounter Summary ---
Author Organization [facility] Address [address] [facility] [place] [address] Care Team Providers Care Hydroelectric Powerplant Supervisor Name Role Phone Gulshan Mena MD Primary Care Provider [phone] Encounter Details Date Type Department Care Team (Late st Contact Info) Description 04/29/2018 11:30 AM CDT Clinical Support [facility] [address] [place] [phone] Michi Longo MD [address] [place] [address] Anesthesia Record Procedure Summary Procedure Name Responsible [...] Sign Reading Time Taken Comments Blood Pressure 119/78 04/29/2018 12:03 PM CDT Pulse 70 04/29/2018 12:03 PM CDT Temperature 36.3 ??C (97.3 ??F) 04/29/2018 12:03 PM C DT Respiratory Rate 16 04/29/2018 12:03 PM CDT Oxygen Saturation 99% 04/29/2018 12:03 PM CDT Inhaled Oxygen Concentration - - Weight 83.9 kg (185 lb) 04/29/2018 12:03 PM CDT Height 170.2 cm (5' 7 ) 04/29/2018 12:03 PM CDT Body Mass Index 28.98 04/29/2018 12:03 PM CDT documented in this encounter Plan of Treatment Not on file documented as of this encounter Procedures Procedure Name Priority Date/Time Associated Diagnosis Comments CARDIAC EKG ORDER 05/08/2018 2:1 5 PM CDT documented in this encounter Results * CARDIAC EKG ORDER (05/08/2018 2:15 PM CDT) Narrative 05/08/2018 2:15 PM CDT Ordered by an unspecified provider. Scanned Document CARDIAC SERVICES ORD ERABLES documented in this encounter Visit Diagnoses Not on filedocumented in this encounter Care Teams Hydroelectric Powerplant Supervisor Relationship Specialty Start Date End Date Gulshan Mena MD [address] [place] [address] PCP - General Family Medicine 12/19/09 documented as of this encounter
--- OUTSIDE RECORDS SUMMARY | 2024-02-12 05:07 | XMS_ITS | Encounter Summary ---
Author Organization [facility] Medical [facility] Address [address] [facility] [address] [place] [address] Care Team Providers Care Manager Of Community Relations Name Role Phone Gulshan Mena DO Primary Care Provider [phone] Reason for Visit * Reason Onset Date Comments medication request 12/09/2019 Encounter Details Date Type Department Care Team (Late st Contact Info) Description 12/09/2019 Telephone [facility] Neurology at [facility] [address] [facility] [address] [place] [address] Jn Noble DO [address] [facility] [address] [place] [address] medication request Social History Tobacco Use Types Packs/Day Years Used Date Smoking Tobacco: Never Smokeless Tobacco: Never Alcohol Use Standard Drinks/Week Comments No 0 (1 standard drink = 0.6 oz pur e alcohol) Sex and Gender Information Value Date Recorded Sex Assigned at Not on file 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 Gender Identity Not on file Sexual Orientation Not on file documented as of this encounter Ordered Prescriptions Prescription Sig Dispense Quantity Refills Last Filled Start Date End Date midazolam (NAYZILAM) 5 mg/spray (0.1 mL) spray,non-aerosol spray unitsIndications:A cute Repetitive Seizures Administer 2 sprays (10 mg total) into one nostril as needed (Seizure that does not stop) 4 each 5 12/09/2019 1 documented in this encounter Miscellaneous Notes * Telephone Encounter - Darryl Chacon - 12/09/2019 8:46 AM CDT The pharm states they need a new script for the nasal spray documented in this encounter Plan of Treatment Not on file documented as of this encounter Visit Diagnoses Not on filedocumented in this encounter Discontinued Medications Medication Sig Discontinue Reason Start Date End Da te midazolam 5 mg/spray (0.1 mL) spray,non-aerosolIndic ations:Acute Repetitive Seizures Administer 2 ampules into affected nostril(s) as needed (Seizure that does not stop) 07/31/2019 12/09/2019 documented as of this encounter Care Teams Manager Of Community Relations Relationship Specialty Start Date End Date Gulshan Mena DO [address] [place] [address] PCP - General 05/11/16 documented as of this encounter
--- OUTSIDE RECORDS SUMMARY | 2024-02-12 05:07 | XMS_ITS | Encounter Summary ---
Author Organization [facility] Medical Group Address [address] [facility] [address] [place] [address] Care Team Providers Care Roofing Applicator Name Role Phone Gulshan Mena DO Primary Care Provider [phone] Reason for Visit * Reason Onset Date Comments medication question 11/02/2020 Encounter Details Date Type Department Care Team (Late st Contact Info) Description 11/02/2020 Telephone [facility] at [facility] [address] [facility] [address] [place] [address] Jn Noble DO [address] [facility] [address] [place] [address] medication question Social History Tobacco Use Types Packs/Day Years Used Date Smoking Tobacco: Never Smokeless Tobacco: Never Alcohol Use Standard Drinks/Week Comments No 0 (1 standard drink = 0.6 oz pur e alcohol) Sex and Gender Information Value Date Recorded Sex Assigned at Not on file 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 * Telephone Encounter - Zac Noble DO - 11/02/2020 1:15 PM CDT Yes, he should take all three pills at some point today, spaced out or what ever * Telephone Encounter - InesDarryl - 11/02/2020 12:25 PM CDT Per call from Destini, a nurse at the [facility], patient missed his morning dose of Lamictal. He normally takes it 8, 12 and 8. Should they double up on another dose today or just continue with normal dosage. Please advise [phone] documented in this encounter Plan of Treatment Not on file documented as of this encounter Visit Diagnoses Not on filedocumented in this encounter Care Teams Roofing Applicator Relationship Specialty Start Date End Date Gulshan Mena DO [address] [place] [address] PCP - General 05/11/16 documented as of this encounter
--- OUTSIDE RECORDS SUMMARY | 2024-02-12 05:07 | XMS_ITS | Encounter Summary ---
Author Organization [facility] Address [address] [place] [address] Care Team Providers Care Furnace Feeder Name Role Phone Gulshan Mena DO Primary Care Provider Reason for Visit * Reason Comments Seizures Encounter Details Date Type Department Care Team (Late Contact Info) Description 04/04/2021 9:15 AM MAMMAL CONTROL AGENT Office Visit [facility] Neurology at [facility] [address] [place] [address] Tosha Elaine PA [address] [place] [address] 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 Never 04/04/2021 Average Number of Drinks Not on file 022 Frequency of Binge Drinking Not on file 03/15 Sex and Gender Information Value Date Recorded Sex Assigned at Not on file Legal Sex Male 12:55 PM MAMMAL CONTROL AGENT Gender Identity Not on file Sexual Orientation Not on file documented as of this encounter Last Filed Vital Signs Vital Sign Reading Time Taken Comments Blood Pressure - - Pulse - - Temperature - - Respiratory Rate 18 04/04/2021 9:18 AM MAMMAL CONTROL AGENT Oxygen Saturation - - Inhaled Oxygen Concentration - - Weight 81.6 kg (180 lb) 04/04/2021 9:18 AM MAMMAL CONTROL AGENT Height 165.1 cm (5' 5 ) 04/04/2021 9:18 AM MAMMAL CONTROL AGENT Body Mass Index 29.95 04/04/2021 9:18 AM MAMMAL CONTROL AGENT documented in this encounter Progress Notes * Tosha Diamond PA - 04/04/2021 9:15 AM CST NEUROLOGY FOLLOW-UP Patient ID: Travis Beebe is a 35 y.o. male This patient is sent from Gulshan Mena DO for treatment of his seizures. History of present illness: Travis Beebe is a 35 y.o. male with a PMHx of Emmett-Gastaut syndrome, epilepsy, developmental delay??who p/w seizures. After VNS replacement he has had remarkable improvement. He has not had any seizures reported by caregiver today. His last seizure was in September. Reportedly, pt was at group homeand he had a seizure at around 1930, lasted 1-2 mins 09/15/2020. He rec'd all of his night time seizure meds at around 1999. He had a second seizure at 2014 and was given diazepam 10mg IN at this time. He had reportedly fallen to the ground with this seizure, but reportedly did not fall and hit head and no trauma. EMS was called because they were having difficulty getting pt up off the floor. The patient has Zang model 1000, serial #[id number] in the left chest wall. The impedance [...] patient continues seizing after 3-5 minutes, call 911.[place] administrations should be by 3 days, with no more than 5 uses per month. Patient is otherwise doing well, appetite is good. [employer] Professor reports difficulty with sleep and night terrors hich are probable seizures. They report that most seizures are occurring in the morningsor waking up from naps. The new VNS has remarkably cut down on need to take diazepam. He is tolerating medications well. Sometimes he hits if asked to do something he doesn't want to do. [employer] Professor rep orts no problems with the vagal nerve stimulator. He takes all his medications as prescribed. Reviewed lacosamide level from 08/01 10.1, zonisamide 08/01 32, both decent levels 06/2017 lacosamide was 12.7, high end of normal, zonisamide was normal at 30 LTG 9, LAC 9.9, ZGN 23 The Runcom M1000 vagal nerve stimulator device is interrogated and adjusted today as follows... Output current is increased to 0.875 mA Signal frequency remains at 30 hertz Pulse width is 250 ??s Signal on time remains at 30 sec Signal off time remains at 1.1 min Magnet output current is increased to 1.25 mA Magnet on and off times remained the same Auto stim output current is increased to 0.875 mA Auto stim pulse width is decreased to 250 ??s Heart beat detection sensitivity remains at 3 Duty cycle is 35 % Auto stim threshold is 40% Output current is good as well as lead impedance at 3292 and battery stimulus indicator remains green At least 35 minutes was spent with patient, adjusting the device and discussing VNS device. Three adjustments were made, counseling is offered, and interview regarding impact in quality of life is also addressed Current Outpatient Medications: ??? acetaminophen (TYLENOL) 325 mg tablet, Take 650 mg by mouth every 6 (six) hours as needed for pain., Disp: , Rfl: ??? bisacodyl (DULCOLAX) 10 mg suppository, Insert 10 mg into the rectum daily as needed for constipation., Disp: , Rfl: ??? busPIRone (BUSPAR) 10 mg tablet, take 1 tablet by oral route 3 times every day, Disp: 270, Rfl:3 ??? carbamide peroxide (DEBROX) 6.5 % otic solution, 6.5 %. (Patient taking differently: Administer4 drops into each ear 2 (two) times a day. First 3 days of each month ), Disp: 0 drop, Rfl: 0 ??? cloBAZam (ONFI) 20 mg tablet, Take 2 tablets (40 mg total) by mouth nightly, Disp: 60 tablet, Rfl: 4 ??? clonazePAM (KlonoPIN) 0.5 mg tablet, Take 1 tablet by mouth twice daily, Disp: 60 tablet, Rfl: 3 ??? cloNIDine (CATAPRES) 0.1 mg tablet, Take 0.3 mg by mouth daily., Disp: , Rfl: ??? diazePAM (Valtoco) 10 mg/spray (0.1 mL) spray,non-aerosol, Administer 10 mg into one nostril once as needed (seizure) for up to 1 dose May repeat if needed, max of 2 doses in 1 day., Disp: 2 each, Rfl: 5 ??? docusate sodium (COLACE) 100 mg capsule, Take 100 mg by mouth 2 (two) times a day., Disp: , Rfl: ??? ergocalciferol (VITAMIN D2) 50,000 unit capsule, take 1 capsule by oral route every week, Disp:0, Rfl: 0 ??? food supplemt, lactose-reduced (ENSURE ORIGINAL) 0.04-1.05 gram-kcal/mL liquid, , Disp: , Rfl: ??? guaiFENesin ER (MUCINEX) 600 mg 12 hr tablet, Take 400 mg by mouth. Every 4- 6 hours as needed cough/congestion, Disp: , Rfl: ??? lamoTRIgine (LaMICtal) 150 mg tablet, TAKE (2) TABLETS BY MOUTH THREE TIMES DAILY., Disp: 186 tablet, Rfl: 0 ??? loperamide (IMODIUM) 2 mg capsule, Take 4 mg by mouth. At onset of diarrhea, give adtl tab after each diarrheal stool up to 4 tabs a day, Disp: , Rfl: ??? loratadine (CLARITIN) 10 mg tablet, take 1 tablet by oral route every day, Disp: 0, Rfl: 0 ??? magnesium hydroxide (CONCENTRATED MILK of MAGNESIA) 240 mg/ mL suspension, Take 30 mL by mouth every other day., Disp: , Rfl: ??? magnesium hydroxide (TORRES CHEWS) 311 mg tablet,chewable chewable tablet, Take 30 mL by mouth, Disp: , Rfl: ??? multivitamin tablet tablet, take 2 Tablet by Oral route every day (Patient taking differently: take 1 Tablet by Oral route every day), Disp: 0, Rfl: 0 ??? phenylephrine (SUDAFED PE) 10 mg tablet, Take 10 mg by mouth. Every 4-6 hours prn, Disp: , Rfl: ??? propranolol LA (INDERAL LA) 160 mg 24 hr capsule, take 1 capsule by oral route every bedtime, Disp: 0, Rfl: 0 ??? raNITIdine (ZANTAC) 150 mg tablet, Take 150 mg by mouth 2 (two) times a day. , Disp: , Rfl: ??? sodium chloride (OCEAN) 0.65 % nasal spray, Administer 2 sprays into each nostril as needed., Disp: , Rfl: ??? Vimpat 100 mg tablet, TAKE (2) TABLETS BY MOUTH TWICE DAILY., Disp: 120 tablet, Rfl: 4 ??? Vimpat 100 mg tablet, TAKE (2) TABLETS BY MOUTH TWICE DAILY., Disp: 120 tablet, Rfl: 4 ??? zonisamide (ZONEGRAN) 100 mg capsule, Take 4 capsules (400 mg total) by mouth 2 (two) times a day., Disp: 240 capsule, Rfl: 11 Review of Systems [...] finger to nose or rapid alternating movements IMP/REC: 1. Refractory generalized nonconvulsive epilepsy (CMS/HCC) His last levels were normal in July. The patients VNS was adjust today. My plan is to keep auto stim off and ramp of his output current to 2.0 milliamps over the course of the next 8 visits. This would allow for a better battery life seeing as he is getting less than 1 auto stimulation per day anyway. The VNS improved his seizure frequency quite a bit. [employer] Professor understands how to utilize the magnet as well as frequency of intranasal midazolam Check labs at the next visit, zonisamide, lacosamide 2. 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 3. Active autistic disorder He does follow only the simplest of commands 4. S/P placement of VNS (vagus nerve stimulation) device The patient had VNS replaced by Dr. Longo. We will keep auto stimulation features since his threshold is so high. Return in about 6 months (around 10/02/2021). 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)- Primary Refractory generalized nonconvulsive epilepsy (HCC) Active autistic disorder Autistic disorder, current or active state S/P placement of VNS (vagus nerve stimulation) device documented in this encounter Discontinued Medications Medication Sig Discontinue Reason Start Date End Da te clonazePAM (KlonoPIN) 0.5 mg tablet Take 1 tablet by mouth twice daily 08/14/2018 04/04/2021 magnesium hydroxide (TORRES CHEWS) 311 mg tablet,chewable chewable tablet Take 30 mL by mouth 04/04/2021 phenylephrine (SUDAFED PE) 10 mg tabletIndications:Nasal Congestion Take 10 mg by mouth Every 4-6 hours prn 04/04/2021 raNITIdine (ZANTAC) 150 mg tablet Take 150 mg by mouth 2 (two) times a day. 04/04/2021 documented as of this encounter Historical Medications * This list may reflect changes made after this encounter. polyethylene glycol (MIRALAX) 17 gram packetIndication s:constipation Take 1 packet (17 g total) by mouth daily bisacodyl EC (DULCOLAX EC) 5 mg EC tabletIndication s:constipation Take 1 tablet (5 mg total) by mouth daily as needed for constipation famotidine (PEPCID) 20 mg tablet Take 1 tablet (20 mg total) by mouth 2 (two) times a day added in this encounter Care Teams Furnace Feeder Relationship Specialty Start Date End Date Gulshan Mena DO [address] [place] [address] PCP - General 05/11/16 documented as of this encounter
--- OUTSIDE RECORDS SUMMARY | 2024-02-12 05:07 | XMS_ITS | Encounter Summary ---
Author Organization [facility] Healthcare Address [address] [place] [address] Care Team Providers Care Rug Measurer Name Role Phone Gulshan Mena DO Primary Care Provider Reason for Visit * Reason Comments Altered Mental Status Encounter Details Date Type Department Care Team (Late st Contact Info) Description 09/11/2020 1:11 PM CDT - 09/11/2020 7:02 PM CDT Emergency [facility] [address] [place] [id number] Nas Armas MD [address] [place] [address] [place] [address] Altered mental status, unspecified altered mental status type (Primary Dx); 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) (HCC) Discharge Disposition: Discharge to home or self care Social History Tobacco Use Types Packs/Day Years Used Date Smoking Tobacco: Never Smokeless Tobacco: Never Alcohol Use Standard Drinks/Week Comments No 0 (1 standard drink = 0.6 oz pur e alcohol) Sex and Gender Information Value Date Recorded Sex Assigned at Not on file 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 Gender Identity Not on file Sexual Orientation Not on file documented as of this encounter Last Filed Vital Signs Vital Sign Reading Time Taken Comments Blood Pressure 99/72 09/11/2020 6:30 PM CDT Pulse 52 09/11/2020 6:55 PM CDT Temperature 36.6 ??C (97.9 ??F) 09/11/2020 1:22 PM CD T Respiratory Rate 14 09/11/2020 6:55 PM CDT Oxygen Saturation 99% 09/11/2020 5:45 PM CDT Inhaled Oxygen Concentration - - Weight 85.7 kg (189 lb) 09/11/2020 1:22 PM CDT Height 170.2 cm (5' 7.01 ) 09/11/2020 1:22 PM CD T Body Mass Index 29.59 09/11/2020 1:22 PM CDT documented in this encounter Discharge Diagnoses Diagnosis Altered mental status, unspecified - ALTERED MENTAL STATUS, UNSPECIFIED Tano-Gastaut syndrome, intractable, without status epilepticus (CMS/HCC) (HCC) - TANO-GASTAUT SYNDROME, INTRACTABLE, WITHOUT STATUS EPILEPTICUS Contact with and (suspected) exposure to covid-19 - CONTACT WITH AND (SUSPECTED) EXPOSURE TO COVID-19 documented in this encounter Discharge Instructions * Discharge Instructions* Tony Villalobos MD - 09/11/2020 6:10 PM CDT Please return to the nearest ER immediately if you have any worsening fevers, chills, chest pain, shortness of breath, especially recurrence of headache, focal weakness, any speech, eating, drinking or balance problems, any vision changes, difficulty walking or other concerning signs or symptoms asyou may have an emergency medical condition necessitating additional management and possible inpatient admission. Please follow up with your primary care physician. It is important to follow up with them in 1 weeks as discussed. It was a pleasure to take care of you today. * Attachments The following attachments cannot be sent through Care Everywhere. * Altered Level of Consciousness (LOC) (Moroccan) documented in this encounter Medications at Time of Discharge acetaminophen (TYLENOL) 325 mg tablet Take 2 tablets (650 mg total) by mouth every 6 (six) hours as needed for pain bisacodyl (DULCOLAX) 10 mg suppository Insert 1 suppository (10 mg total) into the rectum daily as needed for constipation busPIRone (BUSPAR) 10 mg tablet take 1 tablet by oral route 3 times every day 270 3 07/16/2013 carbamide peroxide (DEBROX) 6.5 % otic solution 6.5 %. 0 drop 0 08/11/2012 cloNIDine (CATAPRES) 0.1 mg tablet Take 3 tablets (0.3 mg total) by mouth daily docusate sodium (COLACE) 100 mg capsuleIndication s:constipation Take 1 capsule (100 mg total) by mouth 2 (two) times a day ergocalciferol (VITAMIN D2) 50,000 unit capsule take 1 capsule by oral route every week 0 0 08/11/2012 food supplemt, lactose-reduced 0.04-1.05 gram-kcal/mL liquid guaiFENesin ER (MUCINEX) 600 mg 12 hr tablet Take 400 mg by mouth Every 4-6 hours as needed cough/congestion loperamide (IMODIUM) 2 mg capsule Take 2 capsules (4 mg total) by mouth At onset of diarrhea, give adtl tab after each diarrheal stool up to 4 tabs a day magnesium hydroxide (CONCENTRATED MILK of MAGNESIA) 240 mg/ mL suspension Take 30 mL by mouth every other day multivitamin tablet tablet take 2 Tablet by Oral route every day 0 0 08/11/2012 sodium chloride (OCEAN) 0.65 % nasal spray Administer 2 sprays into each nostril as needed cloBAZam (ONFI) 20 mg tablet TAKE (2) TABLETS BY MOUTH AT BEDTIME. 60 tablet 4 08/10/2020 1 clonazePAM (KlonoPIN) 0.5 mg tablet Take 1 tablet by mouth twice daily 60 tablet 3 08/14/2018 2 diazePAM (Valtoco) 10 mg/spray (0.1 mL) spray,non-aerosol Administer 10 mg into affected nostril(s) once as needed (seizure) for up to 1 dose May repeat if needed, max of 2 doses in 1 day. 2 each 5 03/18/2020 1 lamoTRIgine (LaMICtal) 150 mg tablet TAKE (2) TABLETS BY MOUTH THREE TIMES DAILY. 186 tablet 08/25/2018 4 loratadine (CLARITIN) 10 mg tablet take 1 tablet by oral route every day 0 0 07/16/2013 2 magnesium hydroxide (TORRES CHEWS) 311 mg tablet,chewable chewable tablet Take 30 mL by mouth 2 phenylephrine (SUDAFED PE) 10 mg tabletIndications :Nasal Congestion Take 10 mg by mouth Every 4-6 hours prn 2 propranolol LA (INDERAL LA) 160 mg 24 hr capsule take 1 capsule by oral route every bedtime 0 0 07/16/2013 3 raNITIdine (ZANTAC) 150 mg tablet Take 150 mg by mouth 2 (two) times a day. 2 Vimpat 100 mg tablet TAKE (2) TABLETS BY MOUTH TWICE DAILY. 120 tablet 4 04/18/2020 1 Vimpat 100 mg tablet TAKE (2) TABLETS BY MOUTH TWICE DAILY. 120 tablet 4 04/18/2020 1 documented as of this encounter Discharge Disposition Disposition Code Departure Means Destination Discharge to home or self care documented in this encounter ED Notes * Tony Villalobos MD - 09/11/2020 1:26 PM CDT HPI Chief Complaint Patient presents with ??? Altered Mental Status Portions of the record may have been created with voice recognition software. Occasional wrong-word or '[id number]' substitutions may have occurred due to the inherent limitations of voice recognition software. Read the chart carefully and recognize, using context, where substitutions have occurred. 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 At baseline, he lives jose home with constant supervision. He can say 1 word at baseline which is ball. He is A&O times 0 at baseline. This morning, nurses thought that he was much less expressive than usual. He usually can make multiple facial expression. Today, he seemed much more restricted in his facial expression output. In addition, he did not want to shaved today which is unusual. Usually enjoys being shaved in the morning. Finally, nursing staff believes that he felt cold to touch and that his eyes were glossier than usual. Therefore they wanted him to present for further evaluation. Nursing staff denies any recent falls or trauma. Reports that he did have a severe seizure 1 week prior that he was hospitalized for. No recent seizure activity. Has not taken some his seizure medications this morning which is unusual for him. They do not know if he is COVID-19 vaccinated. PSH: Vagal nerve stimulator Rx: Onfi and multiple other antiepileptic All: Amoxicillin SH: Denies drinking, smoking, drug use FH: Unable to obtain as patient is nonverbal Patient History: Patient Active Problem List Diagnosis Date Noted ??? Refractory generalized nonconvulsive epilepsy (CMS/HCC) ([facility] 07/16/2013 ??? 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 Active autistic disorder 07/10/2012 ??? Developmental delay 07/10/2012 Past Medical History: Diagnosis Date ??? HX OTHER MEDICAL Headache, migraine ??? Ottosen-Gastaut syndrome (HCC) Ottosen-Gastaut; Comments: [facility] 07/16/2013 - ??? Seizure disorder (CMS/HCC) ([facility]) Seizure disorder ??? Tension headache Headache, tension Past Surgical History: Procedure Laterality Date ??? OTHER SURGICAL HISTORY Left VNS History reviewed. No pertinent family history. Social History Tobacco Use ??? Smoking status: Never Smoker ??? Smokeless tobacco: Never Used Substance Use Topics ??? Alcohol use: No ??? Drug use: No Social History Social History Narrative ??? Not on file Review of Systems Review of Systems Psychiatric/Behavioral: Positive for decreased concentration. All other systems reviewed and are negative. Physical Exam ED Triage Vitals [09/11/20 1322] Temp Pulse Resp BP SpO2 36.6 ??C (97.9 ??F) 65 18 115/71 96 % Temp src Heart Rate Source Patient Position BP Location FiO2 (%) Oral -- -- -- -- Physical Exam Vitals and nursing note reviewed. Constitutional: General: He is not in acute distress. Appearance: He is not diaphoretic. Comments: Lying in bed no acute distress, afebrile HENT: Head: Normocephalic and atraumatic. Eyes: Conjunctiva/sclera: Conjunctivae normal. Pupils: Pupils are equal, round, and reactive to light. Neck: Vascular: No JVD. Comments: No meningismus Cardiovascular: Rate and Rhythm: Normal rate and regular rhythm. Heart sounds: Normal heart sounds. No murmur heard. No friction rub. No gallop. Pulmonary: Effort: Pulmonary effort is normal. No respiratory distress. Breath sounds: Normal breath sounds. No wheezing. Comments: Lungs are clear Abdominal: General: Bowel sounds are normal. There is no distension. Palpations: Abdomen is soft. Tenderness: There is no abdominal tenderness. There is no guarding or rebound. Musculoskeletal: Cervical back: Neck supple. Lymphadenopathy: Cervical: No cervical adenopathy. Skin: General: Skin is warm and dry. Findings: No rash. Comments: No cellulitis or purpura Neurological: Mental Status: He is alert. GCS: GCS eye subscore is 4. GCS verbal subscore is 1. GCS motor subscore is 5. Cranial Nerves: No cranial nerve deficit. Comments: Patient is able to alert, regards, maintain eye contact. He is not able to follow any commands. He is not able to verbalize. He has no cranial nerve deficit. His pupils are equally round reactive to light. His eyes can cross midline bilaterally. He has slightly increased muscular tone. Heis moving all extremities without a focal motor deficit. Psychiatric: Behavior: Behavior normal. MDM MDM MDM: Assessment: Travis Beebe is a 35 y.o.-old male with the aforementioned past medical history presenting with altered mental status. He is well-appearing on examination, he does not have a focal neurologic deficit, he is afebrile with normal vital signs, his lungs are clear, no murmurs, soft abdomen, no cellulitis or purpura, appears to be at his neurologic baseline. Will plan for broad altered mental status workup including head CT to evaluate vagal nerve stimulator, wide panel labs looking fortoxic, metabolic, electrolyte, infectious causes of altered mental status such as hyponatremia, acute renal injury, uremia, UTI, pneumonia, alcohol intoxication. Disposition pending workup. If no abnormality found, likely be safe to be discharge back to care home with strict return precautions. Otherwise will admit for further care. Attending Summary of Care ED Course as of Sep 11 1904 Time: 09/11 1329 Comment: Chest x-ray with vagal stimulator, clear lungs By: Tony Villalobos MD Time: 09/11 1450 Value: AST: 19 Comment: (Reviewed) By: Tony Villalobos MD Time: 09/11 1450 Value: ALT: 35 Comment: (Reviewed) By: Tony Villalobos MD Time: 09/11 1450 Value: Bilirubin, total: 0.6 Comment: (Reviewed) By: Tony Vlilalobos MD Time: 09/11 1450 Value: Ethanol: <10 Comment: (Reviewed) By: Tony Villalobos MD Time: 09/11 1450 Value: Creatinine: 0.99 Comment: (Reviewed) By: Tony Villalobos MD Time: 08/01 1451 Value: Ammonia, Plasma: 33 Comment: (Reviewed) By: Tony Villalobos MD Time: 09/11 1633 Value: COVID-19 RNA: Negative Comment: (Reviewed) By: Tony Villalobos MD Time: 09/11 1634 Comment: Findings: - No acute intracranial abnormality. By: Tony Villalobos MD Time: 09/11 1808 Value: Specific gravity, ur(!): >=1.030 Comment: (Reviewed) By: Tony Villalobos MD Time: 09/11 1808 Value: Nitrite, ur: Negative Comment: (Reviewed) By: Tony Villalobos MD Time: 09/11 1808 Value: Leukocyte esterase, ur: Negative Comment: Urine clean. Patient has been observed for several hours, he has been afebrile with normalvital signs. No life-threatening pathology found on his broad workup. Will discharge with strict return precautions and outpatient follow-up. 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 I have reviewed and agree with the resident's findings, including all diagnostic interpretations and treatment plan as written. I was present for the honeycutt portions of any procedures performed and the inclusive time noted for any critical care statement. ATTENDING SUMMARY OF CARE Patient was seen with oTny Villalobos MD. Please see his documentation for full details. I have read and agree with the documentation. . PAST MEDICAL HISTORY: I have read and agree with the pertinent medical/surgical history, psychiatric history, social history, and family history as documented by nursing. MEDICAL DECISION MAKING/EMERGENCY DEPARTMENT COURSE Briefly, this is a 35-year-old male with history of intellectual disability, seizure disorder status post vagal nerve stimulator who presents with worsening confusion. On my exam, the patient has returned to his baseline. He is in no distress. We are extending a broad metabolic and infectious workup for further differentiation. . 1. Altered mental status, unspecified altered mental status type 2. 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 [place] altered mental status since last PM. Hx of MR, non-verbal. Usually loves to shave, but today refused to say his only word which is ball. . Strong urine smell coming clothing. Has Hx of tremors and Sz. No Sz activty reported. * Linda Lozoya RN - 09/11/2020 1:11 PM CDT Bed: ED14 Expected date: Expected time: Means of arrival: Comments: EMS Linda Lozoya, MAURO 09/11/20 1311 documented in this encounter Plan of Treatment Not on file documented as of this encounter Procedures Procedure Name Priority Date/Time Associated Diagnosis Comments CT HEAD WO CONTRAST ED 09/11/2020 3 :56 PM CDT URINALYSIS AND REFLEX TO MICROSCOPIC AND CULTURE STAT 09/11/2020 3:45 PM CDT DRUGS OF ABUSE SCREEN, URINE WITHOUT CONFIRMATION STAT 09/11/2020 3:45 PM CDT EGFR STAT 09/11/2020 2:21 PM CDT DIFFERENTIAL AUTO STAT 09/11/2020 2:2 1 PM CDT CALCIUM, IONIZED Routine 09/11/2020 2:21 PM CDT CBC WITH AUTO DIFFERENTIAL STAT 09/11/2020 2:21 PM CDT MAGNESIUM STAT 09/11/2020 2:21 PM CDT AMMONIA STAT 09/11/2020 2:21 PM CDT ETHANOL STAT 09/11/2020 2:21 PM CDT HEPATIC FUNCTION PANEL STAT 09/11/2020 2:21 PM CDT BASIC METABOLIC PANEL STAT 09/11/2020 2:21 PM CDT XR CHEST 1 VIEW ED Urgent/IP Urgent 09/11/2020 1:47 PM CDT COVID-19 CORONAVIRUS RNA Routine 09/11/2020 1:36 PM CDT ECG 12-LEAD STAT 09/11/2020 1:15 PM CDT documented in this encounter Results * CT Head WO Contrast (09/11/2020 3:56 PM CDT) Anatomical Region Laterality Modality Head and Neck N/A Computed Tomogra phy 09/12/2020 7:41 AM CDT Impressions 09/12/2020 7:41 AM CDT 1. ??No CT evidence of any acute intracranial abnormality. 2. ??A preliminary report was provided by the teleradiologist seasonal greenery bundler. ?? Electronically signed by: Joe Adams M.D. Narrative 09/12/2020 7:41 AM CDT EXAMINATION: CT head without contrast DATE: 09/11/2020 3:05 PM HISTORY: Altered mental status. TECHNIQUE: Standard CT head protocol without contrast. ?? COMPARISON: 07/22/2010. FINDINGS: No acute intra or extraaxial fluid collections or hemorrhage. The brain parenchyma is normal with preservation of the rosado-white matter differentiation. The ventricles are of normal size, shape, and morphology. The basilar cisterns are patent. The orbits are intact. The visualized paranasal sinuses and mastoids are normal. No acute fractures. Procedure Note Joe Adams MD - 09/12/2020 EXAMINATION: CT head without contrast DATE: 09/11/2020 3:05 PM HISTORY: Altered mental status. TECHNIQUE: Standard CT head protocol without contrast. COMPARISON: 07/22/2010. FINDINGS: No acute intra or extraaxial fluid collections or hemorrhage. The brain parenchyma is normal with preservation of the rosado-white matter differentiation. The ventricles are of normal size, shape, and morphology. The basilar cisterns are patent. The orbits are intact. The visualized paranasal sinuses and mastoids are normal. No acute fractures. IMPRESSION: 1. No CT evidence of any acute intracranial abnormality. 2. A preliminary report was provided by the teleradiologist seasonal greenery bundler. Electronically signed by: Joe Adams M.D. Tony Villalobos MD IMG CT PROCEDURES Final Resu lt * (ABNORMAL) Drugs of Abuse Screen, Urine without Confirmation (09/11/2020 3:45 PM CDT) Amphetamine, ur Not Detected CutOff 500ng/mL [facility] Comment: Interpretive Data - Amphetamines: ??Samples containing greater than 500 ng/mL d-methamphetamine ??or other cross-reacting amphetamine compounds are reported as positive. ??Amphetamine immunoassays are subject to significant false positive rates due to cross-reactivity of non-amphetamine drugs. Current Interpretive Data was last reviewed 2018. Barbiturates, ur Not Detected CutOff 200ng/mL [facility] Comment: Interpretive Data - Barbiturates: ??Samples containing greater than 200 ng/mL secobarbital or other cross-reacting barbiturate compounds are reported as positive. ??False positive and false negative results are possible. Current Interpretive Data was last reviewed 2018. Benzodiazepines, ur Detected(A) CutOff 100ng/mL [facility] Comment: Interpretive Data - Benzodiazepines: ??Samples containing greater than 100 ng/mL nordiazepam or other cross-reacting compounds are reported as positive. ?? False positive and false negative results are possible. ?? Current Interpretive Data was last reviewed 2018. Cannabinoids, ur Not Detected CutOff 50 ng/mL [facility] Comment: Interpretive Data - Cannabinoids: ??Samples containing greater than 50 ng/mL delta-9 THC -COOH or other cross-reacting compounds are reported as positive. ??False positive and false negative results are possible. ?? Current Interpretive Data was last reviewed 2018. Cocaine, ur Not Detected CutOff 150ng/mL [facility] Comment: Interpretive Data - Cocaine: ??Samples containing greater than 150 ng/mL benzoylecgonine or other cross-reacting compounds are reported as positive. False positive and false negative results are possible. Current Interpretive Data was last reviewed 2018. Fentanyl, Ur Not Detected Cutoff 1 ng/mL [facility] Comment: Interpretive Data - Fentanyls: ??Samples containing greater than 1 ng/mL fentanyl or other cross-reacting fentanyl compounds are reported as detected. ??False positive and false negative results are possible. Current Interpretive Data was last reviewed 2018. Methadone, ur Not Detected CutOff 300ng/mL [facility] Comment: Interpretive Data - Methadone: ??Samples containing greater than 300 ng/mL d,l-methadone or other cross-reacting compounds are reported as positive. ??False positive and false negative results are possible. Current Interpretive Data was last reviewed 2018. Opiates, ur Not Detected CutOff 300ng/mL [facility] Comment: Interpretive Data - Opiates: ??Samples containing greater than 300 ng/mL morphine or other cross-reacting compounds are reported as positive. ??False positive and false negative results are possible. Current Interpretive Data was last reviewed 2018. Oxycodone, ur Not Detected CutOff 100ng/mL [facility] Comment: Interpretive Data - Oxycodone: ??Samples containing greater than 100 ng/mL oxycodone or other cross-reacting compounds are reported as positive. ??False positive and false negative results are possible. ?? Current Interpretive Data was last reviewed 2018. Phencyclidine, ur Detected(A) CutOff 25 ng/mL [facility] Comment: Interpretive Data - Phencyclidine: ??Samples containing greater than 25 ng/mL phencyclidine or other cross-reacting compounds are reported as positive. ??False positive and false negative results are possible. ?? Current Interpretive Data was last reviewed 2018. Urine Creatinine 210 mg/dL [facility] Comment: Interpretive Data Urine Creatinine: < 10 mg/dL is extremely dilute = or > 10 but < 20 mg/dL is dilute = or > 20 mg/dL is normal Current Interpretive Data was last revised on 2017. Urine 09/11/2020 3:45 PM CDT 09/11/2020 5:49 PM CDT Narrative [facility] - 09/11/2020 6:42 PM CDT Drug of Abuse screening is performed by immunoassay for medical purposes only. ??This is not to be used for Pain Management purposes. Tony Villalobos MD LAB URINE ORDERABLES Final R esult [address] Department of Laboratories [place] [id number] * (ABNORMAL) Urinalysis reflex to microscopic and culture Urine (09/11/2020 3:45 PM CDT) Color, ur Yellow [facility] Clarity, ur Clear Clear [facility] Specific gravity, ur >=1.030(A) 1.010 - 1.025 [facility] pH, urine 6.5 [facility] Protein, ur ql Negative Negative [facility] Glucose, ur ql Negative Negative [facility] Ketones, ur Trace Negative [facility] Bilirubin, ur Negative Negative [facility] Blood, ur Negative Negative [facility] Urobilinogen, ur 0.2 <2.0 mg/dL [facility] Nitrite, ur Negative Negative [facility] Leukocyte esterase, ur Negative Negative [facility] UA reflex comment Reflex conditions for microscopic UA and culture not met. [facility] Urine 09/11/2020 3:45 PM CDT 09/11/2020 5:49 PM CDT us Nas Armas MD LAB 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 - GE NERAL ORDERABLES Final Result Performing Organization Address [facility] Co de Phone Number SERGEI HAGEN[address] Department [place] [address] * eGFR (09/11/2020 2:21 PM CDT) Pathologist [facility] eGFR 99 mL/min/1.7 3 m2 [facility] Comment: Interpretive Data Reference Interval Normal ?>/= 90 mL/min/1.73m2 Mildly decreased* ? 60 - 89 mL/min/1.73m2 Mildly to moderately decreased ?45 - 59 mL/min/1.73m2 Moderately to severely decreased ??30 - 44 mL/min/1.73m2 Severely decreased ?15 - 29 mL/min/1.73m2 Kidney Failure ?< 15 ??mL/min/1.73m2 *Relative to young adult level Estimated glomerular filtration rate is determined by the CKD-EPI equation recommended by the National Kidney Foundation (KDIGO 2012 Clinical Practice Guideline for the Evaluation and Management of Chronic Kidney Disease. Kidney Intnl Suppl Feb 2012;3:1). The CKD-EPI equation should not be used for patients with unstable renal function and has not been validated in children and those over 70. Current interpretive data was last reviewed 2020 Blood specimen (specimen) 09/11/2020 2:21 PM CDT 09/11/2020 2:25 PM CDT us Tony Villalobos MD LAB BLOOD ORDERABLES Final R esult Performing Organization Address [facility] Hospital/ZIP Co de Phone Number [address] [place] [address] * Differential, auto (09/11/2020 2:21 PM CDT) Neutrophil abs 3.9 1.7 - 6.5 K/cumm [facility] Imm gran abs 0.0 0.0 - 0.1 K/cumm [facility] Lymphocyte abs 2.1 0.8 - 3.3 K/cumm [facility] Monocyte abs 0.6 0.2 - 0.8 K/cumm [facility] Eosinophil abs 0.2 0.0 - 0.5 K/cumm [facility] Basophil abs 0.0 0.0 - 0.1 K/cumm [facility] Neutrophil pct 57.3 % [facility] Comment: Interpretive Data Percent cell count reference ranges are not reported, since discordance with absolute values may lead to misinterpretation of CBC data. Current Interpretive Data was last revised on 2017. Imm gran pct 0.1 % [facility] Comment: Interpretive Data Percent cell count reference ranges are not reported, since discordance with absolute values may lead to misinterpretation of CBC data. Current Interpretive Data was last revised on 2017. Lymphocyte pct 30.9 % [facility] Comment: Interpretive Data Percent cell count reference ranges are not reported, since discordance with absolute values may lead to misinterpretation of CBC data. Current Interpretive Data was last revised on 2017. Monocyte pct 8.3 % [facility] Comment: Interpretive Data Percent cell count reference ranges are not reported, since discordance with absolute values may lead to misinterpretation of CBC data. Current Interpretive Data was last revised on 2017. Eosinophil pct 2.8 % [facility] Comment: Interpretive Data Percent cell count reference ranges are not reported, since discordance with absolute values may lead to misinterpretation of CBC data. Current Interpretive Data was last revised on 2017. Basophil pct 0.6 % [facility] Comment: Interpretive Data Percent cell count reference ranges are not reported, since discordance with absolute values may lead to misinterpretation of CBC data. Current Interpretive Data was last revised on 2017. Blood specimen (specimen) 09/11/2020 2:21 PM CDT 09/11/2020 2:25 PM CDT us Nas Armas MD LAB BLOOD ORDERABLES Final Result Performing Organization Address City/[facility]/ZIP Co de Phone Number [address] [address] * Ammonia (09/11/2020 2:21 PM CDT) Ammonia 33 17 - 60 mcmol/L [facility] Blood specimen (specimen) 09/11/2020 2:21 PM CDT 09/11/2020 2:25 PM CDT us Tony Villalobos MD LAB BLOOD ORDERABLES Final R esult Performing Organization Address [facility] [place]/[facility] Co de Phone Number [address] [address] * Ethanol (09/11/2020 2:21 PM CDT) Ethanol <10 <=10 mg/dL [facility] Comment: Interpretive Data Legal limit of intoxication > or = 80 mg/dL Levels > or = 400 mg/dL are potentially TOXIC. Current interpretive data was last revised on 2018. Blood specimen (specimen) 09/11/2020 2:21 PM CDT 09/11/2020 2:25 PM CDT us Tony Villalobos MD LAB BLOOD ORDERABLES Final R esult Performing Organization Address [facility] [place]/[facility]/ZIP Co de Phone Number [address] [address] * Calcium, ionized (09/11/2020 2:21 PM CDT) Calcium, Ionized 4.75 4.50 - 5.09 mg/dL [facility] Blood specimen (specimen) 09/11/2020 2:21 PM CDT 09/11/2020 2:25 PM CDT us Tony Villalobos MD LAB BLOOD ORDERABLES Final R esult [address] [place] [address] * Magnesium (09/11/2020 2:21 PM CDT) Pathologist [facility] Magnesium 1.9 1.4 - 2.5 mg/dL [facility] Blood specimen (specimen) 09/11/2020 2:21 PM CDT 09/11/2020 2:25 PM CDT us Tony Villalobos MD LAB BLOOD ORDERABLES Final R esult Performing Organization Address [facility] [place]/[facility] Co de Phone Number [address] [place] [address] * (ABNORMAL) Hepatic function panel (09/11/2020 2:21 PM CDT) Bilirubin, total 0.6 0.1 - 1.2 mg/dL [facility] Bilirubin, direct <0.2 0.1 - 0.3 mg/dL [facility] Protein, pl 8.1 6.5 - 8.5 g/dL [facility] Albumin 4.8 3.5 - 5.0 g/dL [facility] Alk phos 162(H) 40 - 130 Units/L [facility] ALT 35 7 - 55 Units/L [facility] AST 19 10 - 50 Units/L [facility] Blood specimen (specimen) 09/11/2020 2:21 PM CDT 09/11/2020 2:25 PM CDT us Tony Villalobos MD LAB BLOOD ORDERABLES Final R esult Performing Organization Address City/[facility]/ZIP Co de Phone Number [address] [place] [address] * Basic metabolic panel (09/11/2020 2:21 PM CDT) Pathologist [facility] Sodium 139 135 - 145 mmol/L [facility] Potassium, pl 4.1 3.3 - 4.9 mmol/L [facility] Chloride 105 97 - 110 mmol/L [facility] CO2 23 22 - 32 mmol/L [facility] Anion gap 11 2 - 15 mmol/L [facility] BUN 21 8 - 25 mg/dL [facility] Creatinine 0.99 0.80 - 1.30 mg/dL [facility] Glucose 89 70 - 199 mg/dL [facility] Comment: Interpretive Data Fasting glucose >/= 126 [...] classification and Diagnosis of Diabetes Diabetes Care 2017;40 (Suppl. 1):S11. Current interpretive data was last revised 2016. Calcium 9.8 8.5 - 10.3 mg/dL [facility] Blood specimen (specimen) 09/11/2020 2:21 PM CDT 09/11/2020 2:25 PM CDT Tony Villalobos MD LAB BLOOD ORDERABLES Final R esult [facility] [address] [facility] [place] [address] * CBC with auto differential (09/11/2020 2:21 PM CDT) Pathologist [facility] WBC 6.9 3.8 - 9.9 K/cumm [facility] Hgb 15.7 13.0 - 17.5 g/dL [facility] Hct 46.1 38.9 - 50.3 % [facility] Plt 192 150 - 400 K/cumm [facility] MPV 9.4 9.1 - 12.3 fL [facility] RBC 4.81 4.30 - 5.80 M/cumm [facility] MCV 95.8 81.3 - 96.4 fL [facility] MCH 32.6 27.1 - 33.3 pg [facility] MCHC 34.1 32.3 - 35.7 g/dL [facility] RDW CV 13.3 11.1 - 14.9 % [facility] RDW SD 47.1 35.7 - 48.1 fL [facility] NRBC abs 0.00 0.00 - 0.01 K/cumm [facility] Blood specimen (specimen) 09/11/2020 2:21 PM CDT 09/11/2020 2:25 PM CDT Nas Armas MD LAB BLOOD ORDERABLES Final Result Performing Organization Address City/State/[facility] Co de Phone Number [address] [place] [address] * XR Chest 1 Vw (09/11/2020 1:47 PM CDT) Anatomical Region Laterality Modality Body, Chest N/A Computed Radiogr aphy 09/12/2020 8:06 AM CDT Impressions 09/12/2020 8:06 AM CDT 1. Hypoventilation with resulting bibasilar platelike atelectasis and crowding of the central pulmonary vascular structures. Electronically signed by: Joe Adams M.D. Narrative 09/12/2020 8:06 AM CDT EXAMINATION: Chest Radiograph, 1 view DATE: 09/11/2020 1:25 PM HISTORY: ??Altered mental status. COMPARISON: 01/19/2014. ?? FINDINGS: ??Lung volumes are small, with streaky platelike atelectasis seen at both lung bases and crowding of the central vascular structures. The cardiomediastinal silhouette is stable in appearance. A left-sided vagal nerve stimulator device noted. Procedure Note Joe Adams MD - 09/12/2020 EXAMINATION: Chest Radiograph, 1 view DATE: 09/11/2020 1:25 PM HISTORY: Altered mental status. COMPARISON: 01/19/2014. FINDINGS: Lung volumes are small, with streaky platelike atelectasis seen at both lung bases and crowding of the central vascular structures. The cardiomediastinal silhouette is stable in appearance. A left-sided vagal nerve stimulator device noted. IMPRESSION: 1. Hypoventilation with resulting bibasilar platelike atelectasis and crowding of the central pulmonary vascular structures. Electronically signed by: Joe Adams M.D. Tony Villalobos MD IMG XR PROCEDURES Final Resu lt * COVID-19 Coronavirus RNA Nasopharyngeal (09/11/2020 1:36 PM CDT) COVID-19 RNA Negative Negative [facility] Comment: Interpretive data: Synonyms for this test include: PCR and NAAT . ??This test is performed using the [employer] Xpert Xpress assay. This is a real-time RT-PCR test intended for the qualitative detection of nucleic acid from the SARS-CoV-2. This assay has been reviewed by the FDA for Emergency Use Authorization (EUA). The performance characteristics have been verified by the performing laboratory. Results must be considered in the clinical context and a negative result does not rule out infection. Interpretive data last revised March 17, 2020. First COVID-19 test? No [facility] Employeed in healthcare? No [facility] status? No [facility] Group care resident? No [facility] Hospitalized? No [facility] Is patient in ICU? No [facility] Symptomatic as defined by CDC? 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 OPERATOR Vent Rate: 62 bpm RR Interval: 964 msec CA Interval: 183 msec QRS Duration: 92 msec QT Interval: 373 msec QTC Interval: 378 msec P-R-T [place]: 9 - 0 - 30 degrees SINUS RHYTHM NONSPECIFIC T-WAVE ABNORMALITY BORDERLINE ECG Electronically Signed By: Gulshan Gillis DO, [facility] us Nas Armas MD ECG ORDERABLES Edite d Result - Final Performing Organization Address City/[facility]/ZIP Co de Phone Number [facility] documented in this encounter Visit Diagnoses Diagnosis Altered mental status, unspecified altered mental status type- Primary 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 Scheduled Medication Order 09/09/2020 09/10/2020 09/11/2020 OLANZapine (ZyPREXA ZYDIS) disintegrating tablet 5 mg (COMPLETED) 5 mg, sublingual, Once, On 09/11/20 at 1445, For 1 dose 1450 (Given - Provid er: Heike Harris RN) documented in this encounter Orders Medications Ordered That Negro ht Not Have Been Administered Count Last Ordered Date First Ordered Date midazolam (VERSED) 1 mg/mL p reservative free injection 1 mg 1 09/11/2020 documented in this encounter Care Teams Rug Measurer Relationship Specialty Start Date End Date Gulshan Mena DO [address] [place] [address] PCP - General 05/11/16 documented as of this encounter
--- OUTSIDE RECORDS SUMMARY | 2024-02-12 05:07 | XMS_ITS | Encounter Summary ---
Author Organization [facility] Medical [facility] Address [address] [place] [address] Care Team Providers Care Implementation Specialist Name Role Phone Gulshan Mena DO Primary Care Provider Reason for Visit * Reason Onset Date Comments medication request 08/10/2020 Encounter Details Date Type Department Care Team (Late st Contact Info) Description 08/10/2020 Telephone [facility] at [facility] [address] [place] [address] Jn Noble DO [address] [facility] [address] [place] [address] medication request Social History Tobacco Use Types Packs/Day Years Used Date Smoking Tobacco: Never Smokeless Tobacco: Never Alcohol Use Standard Drinks/Week Comments No 0 (1 standard drink = 0.6 oz pur e alcohol) Sex and Gender Information Value Date Recorded Sex Assigned at Not on file 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 * Telephone Encounter - Darryl Chacon - 08/10/2020 3:59 PM CDT Donal egan called and said they did not get our script for the Onfi. She ask if we can re fax it to [phone] documented in this encounter Plan of Treatment Not on file documented as of this encounter Visit Diagnoses Not on filedocumented in this encounter Care Teams Implementation Specialist Relationship Specialty Start Date End Date Gulshan Mena DO [address] [place] [address] PCP - General 05/11/16 documented as of this encounter
--- OUTSIDE RECORDS SUMMARY | 2024-02-12 05:07 | XMS_ITS | Encounter Summary ---
Author Organization [facility] Medical Group Address [address] [place] [address] Care Team Providers Care Port Purser Name Role Phone Gulshan Mena DO Primary Care Provider [phone] Reason for Visit * Reason Onset Date Comments Med Management 03/17/2020 Encounter Details Date Type Department Care Team (Late st Contact Info) Description 03/17/2020 [facility] [address] [place] [address] Cass Walker MA Med Management Social History Tobacco Use Types Packs/Day Years Used Date Smoking Tobacco: Never Smokeless Tobacco: Never Alcohol Use Standard Drinks/Week Comments No 0 (1 standard drink = 0.6 oz pur e alcohol) Sex and Gender Information Value Date Recorded Sex Assigned at Not on file 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 2 each 5 03/18/2020 1 documented in this encounter Miscellaneous Notes * Telephone Encounter - Jess Campos LPN - 03/18/2020 8:34 AM RUBBER WASHER Please send pended script ER WASHER * Telephone Encounter - Zac Noble DO - 03/17/2020 4:27 PM CST 20 mg ER WASHER * Telephone Encounter - Jess Campos LPN - 03/17/2020 4:20 PM RUBBER WASHER What is the max dose per day? ER WASHER * Telephone Encounter - Zac Noble DO - 03/17/2020 3:51 PM CST 10 mg spray once prn seizure ER WASHER * Telephone Encounter - Jess Campos LPN - 03/17/2020 3:47 PM RUBBER WASHER What is the strength and sig for Valtoco? ER WASHER * Telephone Encounter - Zac Noble DO - 03/17/2020 3:45 PM CST Yes please do so ER WASHER * Telephone Encounter - Cass Walker MA - 03/17/2020 2:16 PM RUBBER WASHER Nica from pharmacy said nasal spray is not covered by insurance pt must try and fail nasal spray Valtoco first per insurance, would you like to switch to this one? ER WASHER documented in this encounter Plan of Treatment Not on file documented as of this encounter Visit Diagnoses Not on filedocumented in this encounter Discontinued Medications Medication Sig Discontinue Reason Start Date End Da te midazolam (NAYZILAM) 5 mg/spray (0.1 mL) spray,non-aerosol spray unitsIndications:Acute Repetitive Seizures Administer 2 sprays (10 mg total) into one nostril as needed (Seizure that does not stop) Alternate therapy 12/09/2019 03/18/2020 documented as of this encounter Care Teams Port Purser Relationship Specialty Start Date End Date Gulshan Mena DO [address] [place] [address] PCP - General 05/11/16 documented as of this encounter
--- OUTSIDE RECORDS SUMMARY | 2024-02-12 05:07 | XMS_ITS | Encounter Summary ---
Author Organization [facility] Medical Group Address [address] [place] [address] Care Team Providers Care Mobile Designer Name Role Phone Gulshan Mena DO Primary Care Provider Reason for Visit * Reason Onset Date Comments Forms/questionnaires 07/31/2019 Encounter Details Date Type Department Care Team (Late st Contact Info) Description 07/31/2019 Telephone 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 Gender Identity Not on file Sexual Orientation Not on file documented as of this encounter Ordered Prescriptions Prescription Sig Dispense Quantity Refills Last Filled Start Date End Date midazolam 5 mg/spray (0.1 mL) spray,non-aerosolI ndications:Acute Repetitive Seizures Administer 2 ampules into affected nostril(s) as needed (Seizure that does not stop) 4 each 5 07/31/2019 0 documented in this encounter Miscellaneous Notes * Telephone Encounter - Jess Campos LPN - 07/31/2019 4:01 PM CDT Letter faxed * Telephone Encounter - Zac Noble DO - 07/31/2019 3:21 PM CDT Looks good, thanks * Telephone Encounter - Jess Campos LPN - 07/31/2019 2:44 PM CDT Seizure Precautions: -Do not try to hold the patient or stop their movements. -Stay with the patient until they are fully awake. -Remove harmful objects near the patient and if possible, gently move the patient away from dangerous areas. Call 911 if: -Not breathing or turning blue -Generalized tonic-clonic seizures that last longer than five minutes -Repeated seizures without any response to touch and sound between seizures -Fall with concern for injury before, during or after seizure -Seizures in water, such as a pool or bathtub -No response to painful stimuli after seizures -Neurological symptoms after the seizure, such as weakness on one side, that are not usually present or lasting longer than usual -Vomiting during a seizure, followed by unconsciousness or not breathing properly Anything you would like added or removed? * Telephone Encounter - Zac Noble DO - 07/31/2019 11:18 AM CDT Do we have a ???seizure protocol?? ? * Telephone Encounter - Darryl Chacon - 07/31/2019 10:49 AM CDT [facility] a seizure prodigal For this patient that can be given to the nursing staff Fax number [phone] documented in this encounter Plan of Treatment Not on file documented as of this encounter Visit Diagnoses Not on filedocumented in this encounter Discontinued Medications Medication Sig Discontinue Reason Start Date End Da te midazolam 5 mg/spray (0.1 mL) spray,non-aerosolIndic ations:Acute Repetitive Seizures Administer 2 ampules into affected nostril(s) as needed (Seizure that does not stop) Reorder 01/22/2019 07/31/2019 documented as of this encounter Care Teams Mobile Designer Relationship Specialty Start Date End Date Gulshan Mena DO [address] [place] [address] PCP - General 05/11/16 documented as of this encounter
--- OUTSIDE RECORDS SUMMARY | 2024-02-12 05:07 | XMS_ITS | Encounter Summary ---
Author Organization [facility] Healthcare Address [address] [place] [address] Care Team Providers Care Spacecraft Systems Engineer Name Role Phone Gulshan Mena DO Primary Care Provider Reason for Visit * Reason Comments Seizures Encounter Details Date Type Department Care Team (Late st Contact Info) Description 09/28/2021 3:53 PM CDT - 09/28/2021 7:55 PM CDT Emergency [facility] Emergency Department [address] [place] [id number] Nas Armas MD [address] [place] [address] [place] [address] Breakthrough seizure (CMS/HCC) (HCC) (Primary Dx) Discharge [...] on file Legal Sex Male 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 Gender Identity Not on file Sexual Orientation Not on file documented as of this encounter Last Filed Vital Signs Vital Sign Reading Time Taken Comments Blood Pressure 132/87 09/28/2021 7:30 PM CDT Pulse 68 09/28/2021 7:30 PM CDT Temperature 37.2 ??C (98.9 ??F) 09/28/2021 3:54 PM CD T Respiratory Rate 20 09/28/2021 7:30 PM CDT Oxygen Saturation 95% 09/28/2021 7:30 PM CDT Inhaled Oxygen Concentration - - Weight 81 kg (178 lb 9.2 oz) 09/28/2021 3:54 PM CDT Height - - Body Mass Index 29.72 04/04/2021 9:18 AM NEWSPAPER PRESS OPERATOR APPRENTICE documented in this encounter Discharge Diagnoses Diagnosis Epilepsy, unspecified, not intractable, without status epilepticus (HCC) - EPILEPSY, UNSPECIFIED, NOT INTRACTABLE, WITHOUT STATUS EPILEPTICUS Other terminal operator (current) drug therapy - OTHER LUBE ATTENDANT (CURRENT) DRUG THERAPY senior care (current) use of non-steroidal anti-inflammatories (nsaid) - RETIREMENT (CURRENT) USE OF NON-STEROIDAL ANTI-INFLAMMATORIES (NSAID) Allergy status to penicillin - ALLERGY STATUS TO PENICILLIN Allergy status to other drugs, medicaments and biological substances - ALLERGY STATUS TO OTHER DRUGS, MEDICAMENTS AND BIOLOGICAL SUBSTANCES documented in this encounter Discharge Instructions * Discharge Instructions* Girish Guzmán PA - 09/28/2021 5:35 PM CDT Continue current medications. Follow-up on 10/02 as already scheduled. * Attachments The following attachments cannot be sent through Care Everywhere. * Seizure, Recurrent (Adult) (Guinean) documented in this encounter Medications at Time [...] packet (17 g total) by mouth daily sodium chloride (OCEAN) 0.65 % nasal spray Administer 2 sprays into each nostril as needed cloBAZam (ONFI) 20 mg tablet Take 1 tablet (20 mg total) by mouth nightly 60 tablet 4 06/30/2021 2 diazePAM (Valtoco) 10 mg/spray (0.1 mL) spray,non-aerosol Administer 10 mg into one nostril once as needed (seizure) for up to 1 dose May repeat if needed, max of 2 doses in 1 day. 2 each 5 06/27/2021 2 lacosamide (Vimpat) 100 mg tablet Take 2 tablets by mouth twice daily 180 tablet 5 09/26/2021 3 lamoTRIgine (LaMICtal) 150 mg tablet TAKE (2) TABLETS BY MOUTH THREE TIMES DAILY. 186 tablet 08/25/2018 4 propranolol LA (INDERAL LA) 160 mg 24 hr capsule take 1 capsule by oral route every bedtime 0 0 07/16/2013 3 Vimpat 100 mg tablet TAKE (2) TABLETS BY MOUTH TWICE DAILY. 120 tablet 4 03/20/2021 3 documented as of this encounter Ordered Prescriptions Prescription Sig Dispense Quantity Refills Last Filled Start Date End Date dicyclomine (BENTYL) 20 mg tablet Take 1 tablet (20 mg total) by mouth every 8 (eight) hours as needed (opiate withdrawal abdominal cramping) for up to 10 doses 10 tablet 09/28/2021 2 ondansetron ODT (ZOFRAN-ODT) 4 mg disintegrating tablet Take 1 tablet (4 mg total) by mouth every 8 (eight) hours as needed for nausea or vomiting 20 tablet 09/28/2021 2 hydrOXYzine (ATARAX) 50 mg tablet Take 1 tablet (50 mg total) by mouth every 6 (six) hours as needed for anxiety for up to 10 doses 10 tablet 09/28/2021 2 documented in this encounter Discharge Disposition Disposition Code Departure Means Destination Discharge to home or self care documented in this encounter ED Notes * Girish Guzmán PA - 09/28/2021 5:01 PM CDT Images from the original note were not included. ED Provider Note HPI: Travis Beebe is a 36 y.o. male with history of Autism, encephalopathy, Emmett- Gastaut syndrome, seizure disorder who presents to ED via EMS due to seizures. He is treated with a vagal nerve stimulator and multiple seizure medications. Intranasal midazolam is also utilized prn. Per caregiver patient was sitting in the car when he had a seizure for 27 minutes. Per their protocol they have to call EMS when it has continued for more than 25 minutes while administering their medication sequence. She states he didn't fall or sustain any injuries while seizing. The last time she witnessed a seizureit was for 19 minutes on Saturday and a second pharmacy customer care specialist witnessed one last week lasting 9 minutes in length. The normal amount of time for his seizure duration is 1-2 minutes. She states since arrival he has been calm and comfortable, noting that when his leg is crossed that an indication that he is relaxed. According to erp business analyst patient has a neurology appointment scheduled for next week 10/02. PMH: Past Medical History: Diagnosis Date ??? Autism ??? Encephalopathy ??? HX OTHER MEDICAL Headache, migraine ??? [place]-Gastaut syndrome (HCC) Emmett-Gastaut; Comments: [facility] 07/16/2013 - ??? Seizure disorder (CMS/HCC) (HCC) Seizure disorder ??? Tension headache Headache, tension PMHx, SOCIAL / FAMILY HISTORY: I have read and agree with the pertinent medical/surgical history, psychiatric history, social history, and family history as documented by nursing. REVIEW OF SYSTEMS: Review of Systems Unable to perform ROS: Patient nonverbal Neurological: Positive for seizures. HOME MEDICATIONS: No current facility-administered medications on file prior to encounter. Current Outpatient Medications on File Prior to Encounter Medication Sig Dispense Refill ??? acetaminophen (TYLENOL) 325 mg tablet Take 650 mg by mouth every 6 (six) hours as needed for pain. ??? bisacodyl (DULCOLAX) 10 mg suppository Insert 10 mg into the rectum daily as needed for constipation. ??? bisacodyl EC (DULCOLAX EC) 5 mg EC tablet Take 5 mg by mouth daily as needed for constipation ??? busPIRone (BUSPAR) 10 mg tablet take 1 tablet by oral route 3 times every day (Patient taking differently: Take 5 mg by mouth 3 (three) times a day) 270 3 ??? carbamide peroxide (DEBROX) 6.5 % otic solution 6.5 %. (Patient taking differently: Administer 4 drops into each ear 2 (two) times a day First 3 days of each month) 0 drop 0 ??? cloBAZam (ONFI) 20 mg tablet Take 1 tablet (20 mg total) by mouth nightly 60 tablet 4 ??? cloNIDine (CATAPRES) 0.1 mg tablet Take 0.3 mg by mouth daily. ??? diazePAM (Valtoco) 10 mg/spray (0.1 mL) spray,non-aerosol Administer 10 mg into one nostril once as needed (seizure) for up to 1 dose May repeat if needed, max of 2 doses in 1 day. 2 each 5 ??? docusate sodium (COLACE) 100 mg capsule Take 100 mg by mouth 2 (two) times a day. ??? ergocalciferol (VITAMIN D2) 50,000 unit capsule take 1 capsule by oral route every week 0 0 ??? famotidine (PEPCID) 20 mg tablet Take 20 mg by mouth 2 (two) times a day ??? food supplemt, lactose-reduced 0.04-1.05 gram-kcal/mL liquid ??? guaiFENesin ER (MUCINEX) 600 mg 12 hr tablet Take 400 mg by mouth Every 4-6 hours as needed cough/congestion ??? lacosamide (Vimpat) 100 mg tablet Take 2 tablets by mouth twice daily 180 tablet 5 ??? lamoTRIgine (LaMICtal) 150 mg tablet TAKE (2) TABLETS BY MOUTH THREE TIMES DAILY. 186 tablet 0 ??? loperamide (IMODIUM) 2 mg capsule Take 4 mg by mouth At onset of diarrhea, give adtl tab after each diarrheal stool up to 4 tabs a day ??? magnesium hydroxide (CONCENTRATED MILK of MAGNESIA) 240 mg/ mL suspension Take 30 mL by mouth every other day. ??? multivitamin tablet tablet take 2 Tablet by Oral route every day 0 0 ??? polyethylene glycol (MIRALAX) 17 gram packet Take 17 g by mouth daily ??? propranolol LA (INDERAL LA) 160 mg 24 hr capsule take 1 capsule by oral route every bedtime 0 0 ??? sodium chloride (OCEAN) 0.65 % nasal spray Administer 2 sprays into each nostril as needed. ??? Vimpat 100 mg tablet TAKE (2) TABLETS BY MOUTH TWICE DAILY. 120 tablet 4 ??? zonisamide (ZONEGRAN) 100 mg capsule Take 4 capsules (400 mg total) by mouth 2 (two) times a day. 240 capsule 11 VITALS: Vitals: 09/28/21 1554 09/28/21 1900 09/28/21 1930 BP: 117/81 117/71 132/87 Pulse: 83 70 68 Resp: 16 21 20 Temp: 37.2 ??C (98.9 ??F) TempSrc: Temporal SpO2: 96% 94% 95% Weight: 81 kg (178 lb 9.2 oz) PHYSICAL EXAM: Vital signs reviewed. General: Patient is calm and resting comfortably in bed. Skin: warm, dry, small red lesions noted in different stages of healing bilaterally on LE. Head: Normocephalic, atraumatic, wearing padded head protection. HEENT: PEARLA, EOM intact. No nasal discharge. External ear intact bilaterally. Mucus membranes arepink and moist. Neck: Supple, trachea midline. CV: Regular rate and rhythm. No murmurs appreciated. Pulm: Lungs clear to auscultation. Abdomen: Non-tender, non-distended scaphoid abdomen. Normoactive BS. Musculoskeletal: No new weakness or deficits noted by caretakers. Neuro: Neurologic exam unable to complete due to patient's nonverbal status. Labs Reviewed COMPREHENSIVE METABOLIC PANEL - Abnormal Result Value Sodium 140 Potassium, pl 3.9 Chloride 106 CO2 22 Anion gap 13 BUN 21 Creatinine 0.95 Glucose 142 Calcium 9.8 Bilirubin, total 0.2 Protein, pl 7.7 Albumin 4.7 Alk phos 149 (*) ALT 28 AST 18 CBC WITH AUTO DIFFERENTIAL - Abnormal WBC 6.3 Hgb 13.8 Hct 40.2 Plt 232 MPV 9.3 RBC 4.29 (*) MCV 93.7 MCH 32.2 MCHC 34.3 RDW CV 13.2 RDW SD 44.8 NRBC abs 0.00 URINALYSIS AND REFLEX TO MICROSCOPIC AND CULTURE DIFFERENTIAL AUTO Neutrophil abs 3.6 Imm gran abs 0.0 Lymphocyte abs 2.0 Monocyte abs 0.5 Eosinophil abs 0.2 Basophil abs 0.1 Neutrophil pct 56.9 Imm gran pct 0.3 Lymphocyte pct 31.3 Monocyte pct 8.2 Eosinophil pct 2.4 Basophil pct 0.9 EGFR eGFR 107 LACOSAMIDE ZONISAMIDE LEVEL No orders to display Procedures ED Course: Travis Beebe is a 36 y.o. male who presents to ED today due to a seizure lasting 27 minutes. He isback to baseline at this time. Labs are normal. Seizure medication levels will be sent out. Case discussed with patient's neurologist, Dr. Noble, who recommends no change in meds at this time. I have explained plan of care to patient's group social worker, who will update family about plan of care. Impression: 1. Breakthrough seizure (CMS/HCC) (HCC) Signed by ANGIE Schaefer, 09/29/21 1:17 AM. Medications given/initiated during ED stay: Medications - No data to display New Rx for this encounter: No orders of the defined types were placed in this encounter. Girish Guzmán PA 09/29/21 0119 Cosigned by Nas Armas MD at 10/03/2021 12:39 AM CDT * Vijay Chan RN - 09/28/2021 3:57 PM CDT Pt presents to ED via EMS from day care/residential for c/o seizures. Pt has hx of MR/CP and frequent seizures. Pt had 3 seizures today that the caregiver noted to be of a duration longer than usual. Caregiver administered diazepam IN prior to EMS arrival, no seizure activity for EMS. Pt at baselineon arrival. VSS, caregiver at bedside with instructions to call if seizure activity presents. * Arti Neal RN - 09/28/2021 3:53 PM CDT Bed: ED07 Expected date: 09/28/21 Expected time: 3:39 PM Means of arrival: Comments: [facility] 221 Arti Neal RN 09/28/21 1553 documented in this encounter Plan of Treatment Scheduled Orders Name Type Priority Associated Diagnoses Orde r Schedule Urinalysis reflex to microscopic and culture Urine Microbiology STAT STAT for 1 Occurrences starting 09/28/2021 until 09/28/2021 documented as of this encounter Procedures Procedure Name Priority Date/Time Associated Diagnosis Comments ECG 12-LEAD STAT 09/28/2021 4:49 PM CDT EGFR STAT 09/28/2021 4:42 PM CDT DIFFERENTIAL AUTO STAT 09/28/2021 4:4 2 PM CDT LACOSAMIDE Routine 09/28/2021 4:42 PM CDT CBC WITH AUTO DIFFERENTIAL STAT 09/28/2021 4:42 PM CDT ZONISAMIDE LEVEL Timed 09/28/2021 4:42 PM CDT COMPREHENSIVE METABOLIC PANEL STAT 09/28/2021 4:42 PM CDT documented in this encounter Results * ECG 12 lead (09/28/2021 4:49 PM CDT) 09/28/2021 4:49 PM CDT Narrative [facility] - 10/01/2021 1:47 PM CDT Vent Rate: 77 bpm RR Interval: 773 msec DE Interval: 177 msec QRS Duration: 93 msec QT Interval: 362 msec QTC Interval: 394 msec P-R-T Beattie: 8 - 5 - 13 degrees SINUS RHYTHM NONSPECIFIC T-WAVE ABNORMALITY BORDERLINE ECG Electronically Signed By: Otoniel Stakr MD, [facility] us Nas Armas MD ECG ORDERABLES Final Result [facility] * eGFR (09/28/2021 4:42 PM CDT) eGFR 107 mL/min/1. 73 m2 [facility] Comment: Interpretive Data Reference Interval Normal [...] interpretive data was last reviewed 2020. Blood 09/28/2021 4:42 PM CDT 09/28/2021 4:45 PM CDT us Nas Armas MD LAB BLOOD ORDERABLES Final Result [address] Department [place] [address] * Differential, auto (09/28/2021 4:42 PM CDT) Neutrophil abs 3.6 1.7 - 6.5 K/cumm [facility] Imm gran abs 0.0 0.0 - 0.1 K/cumm [facility] Lymphocyte abs 2.0 0.8 - 3.3 K/cumm [facility] Monocyte abs 0.5 0.2 - 0.8 K/cumm [facility] Eosinophil abs 0.2 0.0 - 0.5 K/cumm [facility] Basophil abs 0.1 0.0 - 0.1 K/cumm [facility] Neutrophil pct 56.9 % [facility] Comment: Interpretive Data Percent cell count reference ranges are not reported, since discordance with absolute values may lead to misinterpretation of CBC data. Current Interpretive Data was last revised on 2017. Imm gran pct 0.3 % [facility] Comment: Interpretive Data Percent cell count reference ranges are not reported, since discordance with absolute values may lead to misinterpretation of CBC data. Current Interpretive Data was last revised on 2017. Lymphocyte pct 31.3 % [facility] Comment: Interpretive Data Percent cell count reference ranges are not reported, since discordance with absolute values may lead to misinterpretation of CBC data. Current Interpretive Data was last revised on 2017. Monocyte pct 8.2 % [facility] Comment: Interpretive Data Percent cell count reference ranges are not reported, since discordance with absolute values may lead to misinterpretation of CBC data. Current Interpretive Data was last revised on 2017. Eosinophil pct 2.4 % [facility] Comment: Interpretive Data Percent cell count reference ranges are not reported, since discordance with absolute values may lead to misinterpretation of CBC data. Current Interpretive Data was last revised on 2017. Basophil pct 0.9 % [facility] Comment: Interpretive Data Percent cell count reference ranges are not reported, since discordance with absolute values may lead to misinterpretation of CBC data. Current Interpretive Data was last revised on 2017. Blood 09/28/2021 4:42 PM CDT 09/28/2021 4:45 PM CDT us Nas Armas MD LAB BLOOD ORDERABLES Final Result [address] Department [place] [address] * (ABNORMAL) CBC with auto differential (09/28/2021 4:42 PM CDT) WBC 6.3 3.8 - 9.9 K/cumm [facility] Hgb 13.8 13.0 - 17.5 g/dL [facility] Hct 40.2 38.9 - 50.3 % [facility] Plt 232 150 - 400 K/cumm [facility] MPV 9.3 9.1 - 12.3 fL [facility] RBC 4.29(L) 4.30 - 5.80 M/cumm [facility] MCV 93.7 81.3 - 96.4 fL [facility] MCH 32.2 27.1 - 33.3 pg [facility] MCHC 34.3 32.3 - 35.7 g/dL [facility] RDW CV 13.2 11.1 - 14.9 % [facility] RDW SD 44.8 35.7 - 48.1 fL [facility] NRBC abs 0.00 0.00 - 0.01 K/cumm [facility] Blood 09/28/2021 4:42 PM CDT 09/28/2021 4:45 PM CDT us Nas Armas MD LAB BLOOD ORDERABLES Final Result [address] Department [place] [address] * (ABNORMAL) Comprehensive metabolic panel (09/28/2021 4:42 PM CDT) Sodium 140 135 - 145 mmol/L [facility] Potassium, pl 3.9 3.3 - 4.9 mmol/L [facility] Chloride 106 97 - 110 mmol/L [facility] CO2 22 22 - 32 mmol/L [facility] Anion gap 13 2 - 15 mmol/L [facility] BUN 21 8 - 25 mg/dL [facility] Creatinine 0.95 0.80 - 1.30 mg/dL [facility] Glucose 142 70 - 199 mg/dL [facility] Comment: Interpretive Data Fasting glucose >/= [...] 2016. Calcium 9.8 8.5 - 10.3 mg/dL [facility] Bilirubin, total 0.2 0.1 - 1.2 mg/dL [facility] Protein, pl 7.7 6.5 - 8.5 g/dL [facility] Albumin 4.7 3.5 - 5.0 g/dL [facility] Alk phos 149(H) 40 - 130 Units/L [facility] ALT 28 7 - 55 Units/L [facility] AST 18 10 - 50 Units/L [facility] Blood 09/28/2021 4:42 PM CDT 09/28/2021 4:45 PM CDT Nas Armas MD LAB BLOOD ORDERABLES Final Result Performing Organization Address City/[facility]/ZIP Co de Phone Number [address] [address] * Zonisamide level (09/28/2021 4:42 PM CDT) Zonisamide 31 10 - 40 mcg/mL [facility] Comment: ADDITIONAL INFORMATION This test was developed and its performance characteristics determined by [facility] in a manner consistent with CLIA requirements. This test has not been cleared or approved by the U.S. Food and Drug Administration. Test Performed by: [facility] [place] [address] Bleaching Machine Operator: Jim Quispe M.D. Ph.D.; CLIA# [id number] Blood 09/28/2021 4:42 PM CDT 09/28/2021 4:45 PM CDT aNs Armas MD LAB BLOOD ORDERABLES Final Result Performing Organization Address City/[facility]/ZIP Co de Phone Number [address] [phone] * Lacosamide level (09/28/2021 4:42 PM CDT) Lacosamide 9.5 1.0 - 10.0 mcg/mL [facility] Comment: ADDITIONAL INFORMATION This test was developed and its performance characteristics determined by [facility] in a manner consistent with CLIA requirements. This test has not been cleared or approved by the U.S. Food and Drug Administration. Test Performed by: [facility] - [facility] [address] [place] [address] Bleaching Machine Operator: Jim Quispe M.D. Ph.D.; CLIA# [id number] Blood 09/28/2021 4:42 PM CDT 09/28/2021 4:45 PM CDT Nas Armas MD LAB BLOOD ORDERABLES Final Result [address] Department [place] [address] documented in this encounter Visit Diagnoses Diagnosis Breakthrough seizure (CMS/HCC) (HCC)- Primary documented in this encounter Discontinued Medications Medication Sig Discontinue Reason Start Date End Da te loratadine (CLARITIN) 10 mg tablet take 1 tablet by oral route every day Therapy completed 07/16/2013 09/28/2021 hydrOXYzine (ATARAX) 50 mg tablet Take 1 tablet (50 mg total) by mouth every 6 (six) hours as needed for anxiety for up to 10 doses Error 09/28/2021 09/28/2021 ondansetron ODT (ZOFRAN-ODT) 4 mg disintegrating tablet Take 1 tablet (4 mg total) by mouth every 8 (eight) hours as needed for nausea or vomiting Error 09/28/2021 09/28/2021 dicyclomine (BENTYL) 20 mg tablet Take 1 tablet (20 mg total) by mouth every 8 (eight) hours as needed (opiate withdrawal abdominal cramping) for up to 10 doses Error 09/28/2021 09/28/2021 documented as of this encounter Additional Health Concerns Infection Onset Date Last Indicated Resolved Time COVID: Recovered Comment:Added based on recent COVID infection. 08/19/2021 09/26/2021 12/17/2021 3:05 AM Maureen HORNE documented as of this encounter Care Teams Spacecraft Systems Engineer Relationship Specialty Start Date End Date Gulshan Mena DO [address] [place] [address] PCP - General 05/11/16 documented as of this encounter
--- OUTSIDE RECORDS SUMMARY | 2024-02-12 05:07 | XMS_ITS | Encounter Summary ---
Author Organization [facility] Medical [facility] Address [address] [place] [address] Care Team Providers Care Emotional Support Teacher Name Role Phone Gulshan Mena DO Primary Care Provider [phone] Reason for Visit * Reason Comments Seizures Encounter Details Date Type Department Care Team (Late st Contact Info) Description 12/30/2019 10:15 AM RN SPINE Office [place] [facility] [place] [facility] [address] [place] [address] Tosha Elaine PA [address] [facility] [address] [place] [address] 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); Refractory generalized nonconvulsive epilepsy (CMS/HCC); Active autistic disorder Social History Tobacco Use Types Packs/Day Years Used Date Smoking Tobacco: Never Smokeless Tobacco: Never Alcohol Use Standard Drinks/Week Comments No 0 (1 standard drink = 0.6 oz pur e alcohol) Sex and Gender Information Value Date Recorded Sex Assigned at Not on file Legal Sex Male 12:55 PM RN SPINE Gender Identity Not on file Sexual Orientation Not on file documented as of this encounter Last Filed Vital Signs Vital Sign Reading Time Taken Comments Blood Pressure 110/60 12/30/2019 10:55 AM RN SPINE Pulse - - Temperature 35.8 ??C (96.4 ??F) 12/30/2019 10:[address] Respiratory Rate - - Oxygen Saturation - - Inhaled Oxygen Concentration - - Weight 80.3 kg (177 lb) 12/30/2019 10:55 AM RN SPINE Height 175.3 cm (5' 9 ) 12/30/2019 10:55 AM RN SPINE Body Mass Index 26.14 12/30/2019 10:55 AM RN SPINE documented in this encounter Progress Notes * Tosha Diamond PA - 12/30/2019 10:15 AM CST NEUROLOGY FOLLOW-UP Patient ID: Travis Beebe is a 34 y.o. male This patient is sent from Gulshan Mena DO for treatment of his seizures. History of present illness: Patient presents today with his program project analyst. Patient's VNS battery is low at 8-15% and needs to be replaced. This was discussed with program project analyst and understood. Rn Cardiology is using the magnet every 2 minutes and using the nasal spray as directed when seizures occur. Nasal spray frequency was discussed with the program project analyst: One spray in nostril when seizure occurs and another in opposite nostril 10 minutes after, if needed. [place] administrations should be by 3 days, with no more than [address] Longo is the neurosurgeon last seen 07/24/18. Patient is otherwise doing well, appetite is good. Rn Cardiology reports difficulty with sleep and night terror. Patient experienced 7 seizures in the month of Dec thus far which is average for him. 15 seizures were reported in the month of November. The longest seizure was 14 minutes in Nov. 15 seizures were reported in the month of October. Interrogated his vagal nerve stimulator device today. This device was implanted May 16, 2017 The output current is decreased to 2.25 milliamps, auto stim output is 2.5 milliamps and magnet output is increased to 2.75 milliamps. signal on time is is to remain at 30 sec, signal off time is to remain at 1.1 min, pulse width is 500 micro seconds and magnet stimulation time is 60 seconds Lead impedence is 3028 ohms Battery status is low at 8-15% Duty cycle is 35% Pt presents today with his program project analyst. Most seizures are occurring in the mornings or waking up fromnaps. The new VNS has remarkably cut down on need to take diazepam. He is tolerating medications well. Sometimes he hits if asked to do something he doesn't want to do. Rn Cardiology reports no problems with the vagal nerve stimulator. He takes all his medications as prescribed. This patient has last had a seizure on the of this month, frequency is now at 2-3 per month. December he had around 18. Reviewed lamotrigine level from 06/2017 which was normal at 7.1, lacosamide was 12.7, high end of normal, zonisamide was normal at 30 6/19 LTG 9, LAC 9.9, ZGN 23 Current Outpatient Medications: ??? acetaminophen (TYLENOL) 325 [...] Disp: 0 drop, Rfl: 0 ??? cloBAZam (Onfi) 20 mg tablet, Take 2 tablets by mouth daily at bedtime, Disp: 60 tablet, Rfl: 5 ??? clonazePAM (KlonoPIN) 0.5 mg tablet, Take 1 tablet by mouth twice daily, Disp: 60 tablet, Rfl: 3 ??? cloNIDine (CATAPRES) 0.1 mg tablet, Take 0.3 mg by mouth daily., Disp: , Rfl: ??? docusate sodium (COLACE) 100 mg capsule, [...] mL by mouth, Disp: , Rfl: ??? midazolam (NAYZILAM) 5 mg/spray (0.1 mL) spray,non-aerosol spray units, Administer 2 sprays (10mg total) into one nostril as needed (Seizure that does not stop), Disp: 4 each, Rfl: 5 ??? multivitamin tablet tablet, take 2 Tablet [...] IMP/REC: 1. Refractory generalized nonconvulsive epilepsy (CMS/HCC) We will check antiepileptic drug levels today. The patient already has a low battery since his lastreplacement May 2018. We will start the paperwork and have him follow with Dr. Longo. I would advise going back to a 106 and not using the auto stimulation features since his threshold is so high. This would allow for a better battery life seeing as he is getting less than 1 auto stimulation per day anyway. The VNS improved his seizure frequency quite a bit. Advised the patient's caregiver directions on how to use the magnet as well as frequency of intranasal midazolam - Lamotrigine level; Future - Zonisamide level; Future - Lacosamide level; Future 2. 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 3. 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 Every 4-6 hours as needed for cough 12/30/2019 documented as of this encounter Care Teams Emotional Support Teacher Relationship Specialty Start Date End Date Gulshan Mena DO [address] [place] [address] PCP - General 05/11/16 documented as of this encounter
--- OUTSIDE RECORDS SUMMARY | 2024-02-12 05:07 | XMS_ITS | Encounter Summary ---
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); [...] on file 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 male This patient is sent from Gulshan Mena DO for treatment of his seizures. History of present illness: Patient presents today with his digital marketing lead. Patient's VNS was replaced by Dr. Longo as he had battery depleted. Patient had Uevoc model 1000, serial #[id number] in the left chest wall. The impedance [...] 30 seconds as per this image: The patient's digital marketing lead had questions today regarding utilizing magnet. I advised utilizing magnet every 1-2 minutes as well as the nasal spray, 10 minutes between dosage, alternate nostrils and max 2 doses per day. If patient continues seizing after 3-5 minutes, call 911. [place] administrations should be by 3 days, with no more than 5 uses per month. Patient is otherwise doing well, appetite is good. Striker Out reports difficulty with sleep and night terrors hich are probable seizures. They report that most seizures are occurring in the morningsor waking up from naps. The new VNS has remarkably cut down on need to take diazepam. He is tolerating medications well. Sometimes he hits if asked to do something he doesn't want to do. Striker Out rep orts no problems with the vagal nerve stimulator. He takes all his medications as prescribed. Reviewed lamotrigine level from 06/2017 which was normal at 7.1, lacosamide was 12.7, high end of normal, zonisamide was normal at 30 / LTG 9, LAC 9.9, ZGN 23 The [employer] M1000 vagal nerve stimulator device is interrogated and adjusted today as follows... Output current is increased to 0.125 mA Signal frequency remains at 30 hertz Pulse width is 500 ??s Signal on time remains at 30 sec Signal off time remains at 1.1 min Magnet output current is increased to 0.25 mA Magnet on and off times remained the same Auto stim output current is increased to 0.125 mA Auto stim pulse width is 500 ??s Heart beat detection sensitivity remains at 3 Duty cycle is 35 % Output current is good as well as lead impedance at 3866 and battery stimulus indicator remains green At least 35 minutes was spent with patient, adjusting the device and discussing VNS device. Five adjustments were made, counseling is offered, and [...] 0 ??? cloBAZam (ONFI) 20 mg tablet, TAKE (2) TABLETS BY MOUTH AT BEDTIME., Disp: 60 tablet, Rfl: 4 ??? clonazePAM (KlonoPIN) 0.5 mg tablet, Take 1 tablet by mouth twice daily, Disp: 60 tablet, Rfl: 3 ??? cloNIDine (CATAPRES) 0.1 mg tablet, Take 0.3 mg by mouth daily., Disp: , Rfl: ??? diazePAM (Valtoco) 10 mg/spray (0.1 mL) spray,non-aerosol, Administer 10 mg into affected nostril(s) once [...] will check antiepileptic drug levels today. The patients VNS battery and now have to start normal output current protocol, increasing settings every 2 weeks. Likely will increase 0.25 milliamps each visit. My plan is to keep auto stim off and ramp of his output current to 2.0 milliamps overthe course of the next 8 visits. The patient had VNS replaced by Dr. Longo. We will keep auto stimulation features since his threshold is so high. This would allow for a better battery life seeing as he is getting less than 1 auto stimulation per day anyway. The VNS improved his seizure frequencyquite a bit. Advised the patient's caregiver directions on how to use the magnet as well as frequency of intranasal midazolam - Lamotrigine level; Future - Zonisamide level; Future 2. 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 3. Active autistic disorder He does follow only the simplest of commands Follow up again in 2 weeks, sooner if needed No follow-ups on file. Tosha Diamond PA-C Physician Ply Splicer, Neurology Office: documented in this encounter Plan of Treatment Not on file documented as of this encounter Results * (ABNORMAL) Lacosamide level (06/08/2020 12:03 PM CDT) Lacosamide 11.4(H) 1.0 - 10.0 mcg/mL SERGEI CHA Comment: ADDITIONAL INFORMATION This test was developed and its performance characteristics determined by [facility] in a manner consistent with CLIA requirements. This test has not been cleared or approved by the U.S. Food and Drug Administration. Test Performed by: [facility] [place] [address] Gill Tender: Jim Quispe M.D. Ph.D.; CLIA# [id number] Blood specimen (specimen) 06/08/2020 12:03 PM CDT 06/08/2020 6:35 PM CDT Tosha ADAMS LAB BLOOD ORDERABLES Final Resul t Performing Organization Address City/[facility] Co de Phone Number SERGEI STARLA [phone] [place] [address] * Zonisamide level (06/08/2020 12:03 PM CDT) Zonisamide 30 10 - 40 mcg/mL SERGEI CHA Comment: ADDITIONAL INFORMATION This test was developed and its performance characteristics determined by [facility] in a manner consistent with CLIA requirements. This test has not been cleared or approved by the U.S. Food and Drug Administration. Test Performed by: [facility] [place] [address] Gill Tender: Jim Quispe M.D. 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
--- OUTSIDE RECORDS SUMMARY | 2024-02-12 05:07 | XMS_ITS | Encounter Summary ---
Author Organization [facility] Healthcare Address [address] [place] [address] Care Team Providers Care Food Service Driver Name Role Phone Gulshan Mena DO Primary Care Provider Reason for Visit * Reason Comments [facility], per staff pt has had a cough and mild congestion as of recent, reports a hx of covid in March, staff was also concerned that pt was not getting up for wheelchair and walking around as much a he usually does, upon ems arrival pt stood up from chair and began walking without any difficulty, pt is nonverbal at baseline Encounter Details Date Type Department Care Team (Late st Contact Info) Description 08/09/2021 11:31 AM CDT - 08/09/2021 6:37 PM CDT Emergency [facility] Emergency Department [address] [place] [id number] Jim Garcia, [address] [place] [address] URI with cough and congestion (Primary Dx); COVID-19 virus detected Discharge Disposition: Discharge to home or self [...] on file 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 Gender Identity Not on file Sexual Orientation Not on file documented as of this encounter Last Filed Vital Signs Vital Sign Reading Time Taken Comments Blood Pressure 113/80 08/09/2021 3:24 PM CDT Pulse 84 08/09/2021 5:00 PM CDT Temperature 36.7 ??C (98.1 ??F) 08/09/2021 11:36 AM C DT Respiratory Rate 16 08/09/2021 5:00 PM CDT Oxygen Saturation 94% 08/09/2021 5:00 PM CDT Inhaled Oxygen Concentration - - Weight - - Height - - Body Mass Index - - documented in this encounter Discharge Diagnoses Diagnosis COVID-19 - COVID-19 Acute upper respiratory infection, unspecified - ACUTE UPPER RESPIRATORY INFECTION, UNSPECIFIED documented in this encounter Discharge Instructions * Attachments The following attachments cannot be sent through Care Everywhere. * Coronavirus Disease 2019 (COVID-19)- Overview (Citizen [place]) * Coronavirus Disease 2019: Caring for Yourself and Others (Citizen [place]) * Coronavirus Disease 2019 (COVID-19): Prevention (Citizen [place]) * URI, Viral, No Abx (Adult) (Citizen [place]) documented in this encounter Medications at Time [...] 1 day. 2 each 5 06/27/2021 2 lamoTRIgine (LaMICtal) 150 mg tablet TAKE (2) TABLETS BY MOUTH THREE TIMES DAILY. 186 tablet 08/25/2018 4 loratadine (CLARITIN) 10 mg tablet take 1 tablet by oral route every day 0 0 07/16/2013 2 propranolol LA (INDERAL LA) 160 mg 24 hr capsule take 1 capsule by oral route every bedtime 0 0 07/16/2013 3 Vimpat 100 mg tablet TAKE (2) TABLETS BY MOUTH TWICE DAILY. 120 tablet 4 03/20/2021 2 Vimpat 100 mg tablet TAKE (2) TABLETS BY MOUTH TWICE DAILY. 120 tablet 4 03/20/2021 3 documented as of this encounter Discharge Disposition Disposition Code Departure Means Destination Discharge to home or self care documented in this encounter ED Notes * Maxwell Salinas PA - 08/09/2021 1:27 PM CDT ED Provider Note HPI: Travis Beebe is a 36 y.o. 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 Per career technical supervisor patient has notbeen himself since onset of symptoms and last time patient was this way he had COVID. Denies fever,ST, neck stiffness, CP, SOB, N/V/D, abdominal pain, dysuria, rash, or other complaints. No sick cont acts. 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 PMH: Past Medical History: Diagnosis Date ??? Autism ??? Encephalopathy ??? HX OTHER MEDICAL Headache, migraine ??? Deerton-Gastaut syndrome (HCC) Deerton-Gastaut; Comments: [facility] 07/16/2013 - ??? Seizure disorder (CMS/HCC) (HCC) Seizure disorder ??? Tension headache Headache, tension PMHx, SOCIAL / FAMILY HISTORY: I have read and agree with the pertinent medical/surgical history, psychiatric history, social history, and family history as documented by nursing. REVIEW OF SYSTEMS: Review of Systems Reason unable to perform ROS: Limited due to patients medical condition. Constitutional: Positive for malaise/fatigue. Negative for chills and fever. HENT: Positive for congestion. Negative for sore throat. Respiratory: Positive for cough. Negative for shortness of breath. Cardiovascular: Negative for chest pain. Gastrointestinal: Negative for abdominal pain, diarrhea, nausea and vomiting. Genitourinary: Negative for dysuria and hematuria. Musculoskeletal: Negative for back pain. Skin: Negative for rash. Neurological: Negative for dizziness and headaches. Psychiatric/Behavioral: The patient is not nervous/anxious. All other systems reviewed and are negative. HOME MEDICATIONS: No current facility-administered medications on [...] Every 4-6 hours as needed cough/congestion ??? lamoTRIgine (LaMICtal) 150 mg tablet TAKE (2) TABLETS BY MOUTH THREE TIMES DAILY. 186 tablet 0 ??? loperamide (IMODIUM) 2 mg capsule Take 4 mg by mouth At onset of diarrhea, give adtl tab after each diarrheal stool up to 4 tabs a day ??? loratadine (CLARITIN) 10 mg tablet take 1 tablet by oral route every day 0 0 ??? magnesium hydroxide (CONCENTRATED MILK of [...] MOUTH TWICE DAILY. 120 tablet 4 ??? Vimpat 100 mg tablet TAKE (2) TABLETS BY MOUTH TWICE DAILY. 120 tablet 4 ??? zonisamide (ZONEGRAN) 100 mg capsule Take 4 capsules (400 mg total) by mouth 2 (two) times a day. 240 capsule 11 VITALS: Vitals: 08/09/21 1136 08/09/21 1339 BP: 122/77 117/73 Pulse: 81 86 Resp: 16 16 Temp: 36.7 ??C (98.1 ??F) TempSrc: Temporal SpO2: 96% 98% PHYSICAL EXAM: Vital signs reviewed. Physical Exam Vitals and nursing note reviewed. Constitutional: General: He is not in acute distress. Appearance: Normal appearance. He is obese. He is not ill-appearing or toxic-appearing. HENT: Head: Normocephalic and atraumatic. Right Ear: Tympanic membrane, ear canal and external ear normal. Left Ear: Tympanic membrane, ear canal and external ear normal. Nose: Congestion (Clear) present. Mouth/Throat: Mouth: Mucous membranes are moist. Pharynx: Oropharynx is clear. Eyes: Conjunctiva/sclera: Conjunctivae normal. Cardiovascular: Rate and Rhythm: Normal rate and regular rhythm. Pulses: Normal pulses. Pulmonary: Effort: Pulmonary effort is normal. No respiratory distress. Breath sounds: Normal breath sounds. No stridor. No wheezing, rhonchi or rales. Abdominal: General: Abdomen is flat. Bowel sounds are normal. There is no distension. Palpations: Abdomen is soft. Tenderness: There is no abdominal tenderness. There is no guarding or rebound. Musculoskeletal: General: Normal range of motion. Cervical back: Normal range of motion and neck supple. No rigidity or tenderness. Skin: General: Skin is warm and dry. Capillary Refill: Capillary refill takes less than 2 seconds. Findings: No erythema or rash. Neurological: General: No focal deficit present. Mental Status: He is alert. Mental status is at baseline. Psychiatric: Mood and Affect: Mood normal. Behavior: Behavior normal. Labs Reviewed INFLUENZA A/B, RSV, AND COVID-19 PCR - Abnormal Result Value COVID-19 RNA Positive (*) Influenza A RNA Negative Influenza B RNA Negative RSV RNA Negative Narrative: Is the Patient experiencing symptoms consistent with COVID?->Yes Date of Symptom Onset->08/07/21 Reason for testing?->Symptomatic XR Chest 1 View Final Result 1. Low lung volumes with mild bibasilar atelectasis. Electronically signed by: Ethan aSlamanca M.D. MDM: Travis Beebe is a 36 y.o. male who presents to ED today due to cough, congestion and fatigue. CXR is unremarkable. No clinical evidence of pneumonia, dehydration, meningitis or sepsis. Do not suspect bacterial infection at this time. Will not treat with antibiotics at this time. COVID (+). RSV (-). Influenza (-). The patient was evaluated during the global COVID-19 pandemic, and that diagnosis was suspected/considered upon their initial presentation. Their evaluation, treatment and testing wasconsistent with current guidelines for patients who present with complaints or symptoms that may berelated to COVID-19. Patient is afebrile and non-toxic appearing. Patient with no S/S of distress. Impression: 1. URI with cough and congestion 2. COVID-19 virus detected Signed by ANGIE Barrios, 08/09/21 3:00 PM. Medications given/initiated during ED stay: Medications - No data to display New Rx for this encounter: No orders of the defined types were placed in this encounter. Maxwell Salinas PA 08/09/21 1501 Cosigned by Jim Garcia DO at 08/30/2021 9:59 AM CDT * Gulshan Cohen RN - 08/09/2021 11:31 AM CDT Bed: ED08 Expected date: Expected time: Means of arrival: Comments: 242 Gulshan Cohen RN 08/09/21 1131 documented in this encounter Plan of Treatment Not on file documented as of this encounter Procedures Procedure Name Priority Date/Time Associated Diagnosis Comments XR CHEST 1 VIEW ED 08/09/2021 1:59 PM CDT INFLUENZA A/B, RSV, AND COVID-19 PCR Routine 08/09/2021 1:38 PM CDT documented in this encounter Results * XR Chest 1 View (08/09/2021 1:59 PM CDT) Anatomical Region Laterality Modality Body, Chest N/A Computed Radiogr aphy 08/09/2021 2:06 PM CDT Impressions 08/09/2021 2:06 PM CDT 1. ??Low lung volumes with mild bibasilar atelectasis. Electronically signed by: Ethan Salamanca M.D. Narrative 08/09/2021 2:06 PM CDT EXAMINATION: Chest x ray, 1 view DATE: ??08/09/2021 1:40 PM HISTORY: cough COMPARISON: 09/11/2020 FINDINGS: ?? Low lung volumes. ??Mild bibasilar atelectasis. ??No definite pleural effusion. ??No pneumothorax. ??The cardiomediastinal silhouette is normal. ??Left-sided vagal nerve stimulator present. Procedure Note Ethan Salamanca MD - 08/09/2021 EXAMINATION: Chest x ray, 1 view DATE: 08/09/2021 1:40 PM HISTORY: cough COMPARISON: 09/11/2020 FINDINGS: Low lung volumes. Mild bibasilar atelectasis. No definite pleural effusion. No pneumothorax. The cardiomediastinal silhouette is normal. Left-sided vagal nerve stimulator present. IMPRESSION: 1. Low lung volumes with mild bibasilar atelectasis. Electronically signed by: Ethan Salamanca M.D. [facility] XR PROCEDURES F inal Result * (ABNORMAL) Influenza A/B, RSV, and COVID-19 PCR Nasopharyngeal (08/09/2021 1:38 PM CDT) COVID-19 RNA Positive(A) Negative [facility] Influenza A RNA Negative Negative [facility] Influenza B RNA Negative Negative [facility] RSV RNA Negative Negative [facility] Comment: Interpretive data: This test is performed using the [employer] Xpert Xpress CoV-2/Flu/RSV plus assay. This is a multiplex, real-time reverse transcriptase PCR assay intended for the qualitative detection of nucleic acid from SARS-CoV-2, influenza A, influenza B, and respiratory syncytial virus. This assay has been reviewed by the FDA for Emergency Use Authorization (EUA). The performance characteristics have been verified by the performing laboratory. Results must be considered in the clinical context, and a negative result does not rule out infection. Interpretive Data last revised 2021. Nasopharyngeal 08/09/2021 1: 38 PM CDT 08/09/2021 1:45 PM CDT Narrative [facility] - 08/09/2021 2:23 PM CDT Is the Patient experiencing symptoms consistent with COVID?->Yes Date of Symptom Onset->08/07/21 Reason for testing?->Symptomatic [facility] 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 - GENERAL ORDERABLES Final Result [facility] [address] [place] [address] documented in this encounter Visit Diagnoses Diagnosis URI with cough and congestion- Primary COVID-19 virus detected documented in this encounter Additional Health Concerns Infection Onset Date Last Indicated Resolved Time COVID: Suspected 08/09/2021 08/09/2021 08/09/2021 2:23 PM CDT COVID19 08/09/2021 08/09/2021 08/19/2021 3:05 AM CDT documented as of this encounter Care Teams Food Service Driver Relationship Specialty Start Date End Date Gulshan Mena DO [address] [place] [address] PCP - General 05/11/16 documented as of this encounter
--- OUTSIDE RECORDS SUMMARY | 2024-02-12 05:07 | XMS_ITS | Encounter Summary ---
Author Organization [facility] Medical Group Address [address] [place] [address] Care Team Providers Care Rustic Fence Builder Name Role Phone Gulshan Mena DO Primary Care Provider [phone] Reason for Visit * Reason Onset Date Comments Med Management 12/02/2019 Encounter Details Date Type Department Care Team (Late st Contact Info) Description 12/02/2019 Telephone [facility] [address] [place] [address] Jn Noble DO [address] [place] [address] Med Management Social History Tobacco Use Types Packs/Day Years Used Date Smoking Tobacco: Never Smokeless Tobacco: Never Alcohol Use Standard Drinks/Week Comments No 0 (1 standard drink = 0.6 oz pur e alcohol) Sex and Gender Information Value Date Recorded Sex Assigned at Not on file 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 Is there a different medication we want to have filled for the patient? documented in this encounter Plan of Treatment Not on file documented as of this encounter Visit Diagnoses Not on filedocumented in this encounter Care Teams Rustic Fence Builder Relationship Specialty Start Date End Date Gulshan Mena DO [address] [place] [address] PCP - General 05/11/16 documented as of this encounter
--- OUTSIDE RECORDS SUMMARY | 2024-02-12 05:07 | XMS_ITS | Encounter Summary ---
Author Organization [facility] Medical Group Address [address] [address] Care Team Providers Care Custom Home Installer Name Role Phone Gulshan Mena DO Primary Care Provider Reason for Visit * Reason Onset Date Comments Covid-19 Home Monitoring 08/12/2021 Enrollm ent call Encounter Details Date Type Department Care Team (Late st Contact Info) Description 08/12/2021 Telephone [facility] Accountable Care Organization [address] [place] [address] Yanci Morton MA [address] [place] [phone] Covid-19 Home Monitoring (Enrollment call) Social History Tobacco Use Types Packs/Day Years [...] on file 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 She states that he is still bed bound but that's because he isn't walking very well. This patient was identified as a candidate for the [facility]/ COVID home monitoring program. The patient was contacted via phone for enrollment in the program. The patient has declined to participate in the automated MyChart Insurance Appraiser Program, but has verbally agreed to the Phone Only Home Monitoring Program, which includes being contacted for a daily phone assessment by a [facility] staff member. The patient was informed that members of the healthcare team will contact them depending on the symptoms that they report. This call could come from a variety of phone numbers depending on which member of the healthcare team is contacting the patient, and the patient should be prepared to answer calls from a variety of phone numbers. If the patient is unable to be reached for 3 days, they will be disenrolled from the program. Patient is aware that we will try and reach them at every available phone number, including HIPAA contacts. After review, the patient declined to participate. The ???COVID19 Home Monitoring?? order was not placed to enroll the patient in the phone only version of the program. documented in this encounter Plan of Treatment Not on file documented as of this encounter Visit Diagnoses Not on filedocumented in this encounter Additional Health Concerns Infection Onset Date Last Indicated Resolved Time COVID19 08/09/2021 08/09/2021 08/19/2021 3:05 AM CDT documented as of this encounter Care Teams Custom Home Installer Relationship Specialty Start Date End Date Gulshan Mena DO NPKristin: [phone] [address] [place] [address] PCP - General 05/11/16 documented as of this encounter
--- OUTSIDE RECORDS SUMMARY | 2024-02-12 05:07 | XMS_ITS | Encounter Summary ---
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 [...] on file 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 Gender Identity Not on file Sexual Orientation Not on file documented as of this encounter Last Filed Vital Signs Vital Sign Reading Time Taken Comments Blood Pressure - - Pulse - - Temperature - - Respiratory Rate - - Oxygen Saturation - - Inhaled Oxygen Concentration - - Weight 81.6 kg (180 lb) 05/08/2023 10:05 AM CDT Height 166 cm (5' 5.35 ) 05/08/2023 10:05 AM CDT Body Mass Index 29.63 05/08/2023 10:05 AM CDT documented in this encounter Ordered Prescriptions Prescription Sig Dispense Quantity Refills Last Filled Start Date End Date diazePAM (Valtoco) 10 mg/spray (0.1 mL) spray,non-aerosolI ndications: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 2 each 5 05/08/2023 4 documented in this encounter Progress Notes * Tosha Elaine PA - 05/08/2023 10:00 AM CDT Images from the original note were not included. NEUROLOGY FOLLOW-UP Patient ID: Travis Beebe is a 38 y.o. male This patient is sent from Gulshan Mena DO for treatment of his seizures. IMP/REC: 1. Refractory generalized nonconvulsive epilepsy (CMS/HCC) Patient continues to have refractory seizures despite stable ASM levels that are above normal. Discussed adding additional medications such as cannabidiol oral solution in the future. The patients VNS was adjusted today. I increased output parameters today and have kept the auto stim off in order to ramp his output current to 2.0 milliamps over the course of the next 8 visits. This would allow for a better battery life seeing as he is getting less than 1 autostimulation per day anyway. The VNS improved his seizure frequency quite a bit. Attendant Sales understands how to utilize the magnet as well as frequency of intranasal Valtoco. That you use to do this recognizes I just seen in Skye pre on because at 0 2 why remember the main role Neurology working stopped caring I have a day it is hard Checked labs today to monitor for toxicity of zonisamide, lacosamide, Lamictal. Increase VNS outputparameters today. If he continues to have significant [...] %. History of present illness: Interval history: 3 Patient had an 8 minute seizure this morning. She did not administer the Valtoco, but this has beenadministered for prior seizures. Attendant Sales is at bedside and helps provide history. She is new and not sure how many seizures patient has experienced since last visit. After review of documentation patient had seizure 04/09/2023, 04/23/2023, 04/25/2023, 04/28/2023, 05/08/2023. 8 Seizures have been frequent. Valtoco is used and is mostly effective. I reviewed 22 page log of seizure journal which included an average of 17 seizures per month. Two which were greater than 20 minutes. Magnet and nasal spray attempted. Denies any difficulty with medication ingestion. Patient's gum scoring machine operator Lorenza is at bedside who helps provide [...] was in September. Reportedly, pt was at detention and he had a seizure at around [...] up off the floor. The patient has [employer] model 1000, serial #[id number] in the left chest wall. The impedance [...] patient continues seizing after 3-5 minutes, call 911.[place] administrations should be by 3 days, with no more than 5 uses per month. Patient is otherwise doing well, appetite is good. Attendant Sales reports difficulty with sleep and night terrors hich are probable seizures. They report that most seizures are occurring in the morningsor waking up from naps. The new VNS has remarkably cut down on need to take diazepam. He is tolerating medications well. Sometimes he hits if asked to do something he doesn't want to do. Attendant Sales rep orts no problems with the vagal nerve stimulator. He takes all his medications as prescribed. Reviewed lacosamide level from 10/02 9.5, ZNG 31 08/01 10.1, zonisamide 08/01 32, both decent levels 06/2017 lacosamide was 12.7, high end of normal, zonisamide was normal at 30 6/'19 LTG 9, LAC 9.9, ZGN 23 Latest Reference Range & Units Most Recent 04/04/22 10:00 Lamotrigine, ser 3.0 - 15.0 mcg/mL 13.9 04/04/22 10:00 13.9 Zonisamide 10 - 40 mcg/mL 34 04/04/22 10:00 34 Lacosamide 1.0 - 10.0 mcg/mL 10.4 (H) 04/04/22 10:00 10.4 (H) (H): Data is abnormally high VNS: The [employer] M1000 vagal nerve stimulator device is interrogated and adjusted today as follows... Output current is increased to 1.375 mA Signal frequency remains at 30 hertz Pulse width is 250 ??s Signal on time remains at 30 sec Signal off time remains at 1.1 min Magnet output current is 1.75 mA Magnet on and off times remained the same Magnet pulse width is decreased to 250 ??s Auto stim output current is increased to 1.375 mA Auto stim pulse width is 250 [...] also addressed My total encounter time on 05/08/2023 was 37 minutes which was spent in the activities [...] each month), Disp: 0 drop, Rfl: 0 cloBAZam (ONFI) 20 mg tablet, TAKE (1) TABLET BY MOUTH AT BEDTIME., Disp: 30 tablet, Rfl: 4 cloNIDine (CATAPRES) 0.1 mg tablet, Take 3 tablets (0.3 mg total) by mouth daily, Disp: , Rfl: diphenhydrAMINE (BENADRYL) 25 mg capsule, Take 1 [...] Rfl: 4 lacosamide (VIMPAT) 100 mg tablet, TAKE (2) TABLETS BY MOUTH TWICE DAILY., Disp: 120 tablet, Rfl: 4 lamoTRIgine (LaMICtal) 150 mg tablet, TAKE (2) TABLETS BY MOUTH THREE TIMES DAILY., Disp: 186 tablet, Rfl: 0 loperamide (IMODIUM) 2 mg capsule, Take 2 [...] each nostril as needed, Disp: , Rfl: diazePAM (Valtoco) 10 mg/spray (0.1 mL) spray,non-aerosol, Administer 10 mg into one nostril once as needed (seizure) for up to 1 dose May repeat if needed, max of 2 doses in 1 day., Disp: 2 each, Rfl: 5 zonisamide (ZONEGRAN) 100 mg capsule, Take 4 [...] or rapid alternating movements Return in about 6 months (around 11/08/2023). Physician Wheel Cleaner, Neurology Office: documented in this encounter Plan of Treatment Not on file documented as of this encounter Results * (ABNORMAL) Lacosamide level (05/08/2023 11:00 AM CDT) Lacosamide 12.1(H) 1.0 - 10.0 mcg/mL [facility] Comment: ADDITIONAL INFORMATION This test was developed and its performance characteristics determined by [facility] in a manner consistent with CLIA requirements. This test has not been cleared or approved by the U.S. Food and Drug Administration. Test Performed by: [facility] - [address] [address] Radio Repair Teacher: Jim Quispe M.D. Ph.D.; CLIA# [id number] Blood 05/08/2023 11:0 0 AM CDT 05/08/2023 11:01 AM CDT us Tosha ADAMS LAB BLOOD ORDERABLES Final Resul t [facility] [address] [facility] Department [place] [address] [facility] * Zonisamide level (05/08/2023 11:00 AM CDT) Zonisamide 31 10 - 40 mcg/mL [facility] Comment: ADDITIONAL INFORMATION This test was developed and its performance characteristics determined by [facility] in a manner consistent with CLIA requirements. This test has not been cleared or approved by the U.S. Food and Drug Administration. Test Performed by: [facility] [place] [address] Radio Repair Teacher: Jim Quispe M.D. Ph.D.; CLIA# [id number] Blood 05/08/2023 11:0 0 AM CDT 05/08/2023 11:01 AM CDT Tosha ADAMS LAB BLOOD ORDERABLES Final Resul t [facility] [address] Department [place] [address] [facility] * Lamotrigine level (05/08/2023 11:00 AM CDT) Lamotrigine 16.6 3.0 - 15.0 mcg/mL [facility] Comment: ADDITIONAL INFORMATION This test was developed and its performance characteristics determined by [facility] in a manner consistent with CLIA requirements. This test has not been cleared or approved by the U.S. Food and Drug Administration. Test Performed by: [facility] - [place] [address] Radio Repair Teacher: Jim Quispe M.D. 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 Reorder 08/02/2022 05/08/2023 documented as of this encounter Care Teams Turbine Mechanic Relationship Specialty Start Date End Date Gulshan Mena DO [address] [place] [address] PCP - General 05/11/16 documented as of this encounter
--- OUTSIDE RECORDS SUMMARY | 2024-02-12 05:07 | XMS_ITS | Encounter Summary ---
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
--- OUTSIDE RECORDS SUMMARY | 2024-02-12 05:07 | XMS_ITS | Encounter Summary ---
Author Organization [facility] Medical Group Address [address] [place] [address] Care Team Providers Care Chancery Clerk Name Role Phone Gulshan Mena DO Primary Care Provider Reason for Visit * Reason Onset Date Comments medication question 12/03/2019 Encounter Details Date Type Department Care Team (Late st Contact Info) Description 12/03/2019 Telephone [facility] [place] [facility] [address] [place] [address] Jn Noble DO [address] [facility] [address] [place] [address] medication question Social History Tobacco Use Types Packs/Day Years Used Date Smoking Tobacco: Never Smokeless Tobacco: Never Alcohol Use Standard Drinks/Week Comments No 0 (1 standard drink = 0.6 oz pur e alcohol) Sex and Gender Information Value Date Recorded Sex Assigned at Not on file 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 * Telephone Encounter - Jess Campos LPN - 12/04/2019 10:26 AM CDT Tootie made aware yesterday- see previous message * Telephone Encounter - Zac Noble DO - 12/03/2019 4:22 PM CDT I do not, he can wait a couple of weeks * Telephone Encounter - Darryl Chacon - 12/03/2019 4:17 PM CDT Monica from [facility] called to let us know the nasal spray Midazolam is on back order and they probably won't be able to get it until 12/18. Do you want to send a different script? documented in this encounter Plan of Treatment Not on file documented as of this encounter Visit Diagnoses Not on filedocumented in this encounter Care Teams Chancery Clerk Relationship Specialty Start Date End Date Gulshan Mena DO [address] [place] [address] PCP - General 05/11/16 documented as of this encounter
--- OUTSIDE RECORDS SUMMARY | 2024-02-12 05:07 | XMS_ITS | Encounter Summary ---
Author Organization [facility] Healthcare Address [address] [place] [address] Care Team Providers Care Systems Design Engineer Name Role Phone Gulshan Mena DO Primary Care Provider [phone] Reason for Visit * Reason Comments Seizures Patient has had mult iple seizures per staff this AM that have lasted longer than usual. Encounter Details Date Type Department Care Team (Late st Contact Info) Description 09/08/2020 9:01 AM CDT - 09/08/2020 11:29 AM CDT Emergency [facility] Emergency Department [address] [place] [id number] Gulshan Lopez MD [address] [place] [address] [place] [address] Breakthrough seizure (CMS/HCC) (HCC) (Primary Dx) Discharge Disposition: Discharge to home or self care Social History Tobacco Use Types Packs/Day Years Used Date Smoking Tobacco: Never Smokeless Tobacco: Never Alcohol Use Standard Drinks/Week Comments No 0 (1 standard drink = 0.6 oz pur e alcohol) Sex and Gender Information Value Date Recorded Sex Assigned at Not on file 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 Gender Identity Not on file Sexual Orientation Not on file documented as of this encounter Last Filed Vital Signs Vital Sign Reading Time Taken Comments Blood Pressure 163/141 09/08/2020 9:30 AM CDT Pulse 84 09/08/2020 11:25 AM CDT Temperature 37.4 ??C (99.3 ??F) 09/08/2020 9:00 AM CD T Respiratory Rate 22 09/08/2020 11:25 AM CDT Oxygen Saturation 99% 09/08/2020 11:25 AM CDT Inhaled Oxygen Concentration - - Weight 81.6 kg (180 lb) 09/08/2020 9:41 AM CDT Height - - Body Mass Index 28.19 07/05/2020 11:01 AM CDT documented in this encounter Discharge Diagnoses Diagnosis Unspecified convulsions (HCC) - UNSPECIFIED CONVULSIONS documented in this encounter Discharge Instructions * Discharge Instructions* Gulshan Lopez MD - 09/08/2020 11:08 AM CDT Schedule a follow up appointment with neurology. * Attachments The following attachments cannot be sent through Care Everywhere. * Seizure, Recurrent (Adult) (Ghanaian) documented in this encounter Medications at Time [...] documented in this encounter ED Notes * Gulshan Lopez MD - 09/08/2020 9:14 AM CDT HPI: Travis Beebe is a 35 y.o. male with a PMHx of Emmett-Gastaut syndrome, epilepsy, developmental delay who p/w seizures. He does have frequent breakthrough seizures. Today, he had a seizure, he was given his nasal diazepam and his vagal nerve stimulator was used, but according to his caregiver, his s eizure lasted longer than usual, about 16 minutes and so he was brought here. I am unable to get further information at this time due to pt's baseline mental status, and caregiver was not present during the event this morning. He did receive his morning medications today. He takes clobazam (Onfi) 40mg qHS, lamotrigine (Lamictal) 200mg TID, Vimpat 200mg BID, zonisamide (Zonegran) 400mg BID. He was here on 06/17/20 with a similar presentation. VNS was interrogated and adjusted on 06/21, 07/05, 07/19. As of 07/22, AED levels were good and dose was kept. PMHx, SOCIAL / FAMILY HISTORY: I have read and agree with the pertinent medical/surgical history, psychiatric history, social history, and family history as documented by nursing. REVIEW OF SYSTEMS: unable to perform ROS due to pt's mental status and caregiver not being with pt today until ED presentation. VITALS Vitals: 09/08/20 0900 09/08/20 0930 09/08/20 0941 BP: (!) 142/115 (!) 163/141 Pulse: 82 72 Resp: 20 16 Temp: 37.4 ??C (99.3 ??F) TempSrc: Axillary SpO2: 99% Weight: 81.6 kg (180 lb) PHYSICAL EXAM: VS Reviewed - CONSTITUTIONAL: Well-developed, well-nourished. - HEAD: Normocephalic, atraumatic. - EYES: EOMI, no conjunctival injection. - CARDS: Regular rate and rhythm - RESP: Breath sounds clear b/l. Breathing unlabored. - ABD: Soft, non-tender w/o guarding or rebound. - EXT: Full ROM x4. Distal pulses intact. No edema. - SKIN: Warm and dry. No rashes. - NEURO: Alert, interactive with examiner, CN II-XII intact. Grossly intact w no focal abnormality. MEDICAL DECISION MAKING: - Pt with frequent breakthrough seizures here with breakthrough seizure. He has been seizure free since he has been here. His AED levels were just checked a month ago, and his VNS was adjusted then as well. ED Course as of Sep 09 1107 Time: 09/08 1106 Comment: I spoke to Dr. Anguiano. No AED adjustments recommended today. Will have him f/u as an outpt with neuro. By: Gulshan Lopez MD 1. Breakthrough seizure (CMS/HCC) Signed by Gulshan Lopez MD, 09/08/20 11:08 AM. ???Portions of the record may have been created with voice recognition software. Occasional wrong-word or ???[id number]??? substitutions may have occurred due to the inherent limitations of voice recognition software. Read the chart carefully and recognize, using context, where substitutions haveoccurred.?? Gulshan Lopez MD 09/08/201107 * Christine Richardson RN - 09/08/2020 9:01 AM CDT Bed: ED04 Expected date: Expected time: Means of arrival: Comments: Sccad [address] Christine Richardson, MAURO 09/08/20 09 documented in this encounter Plan of Treatment Not on file documented as of this encounter Visit Diagnoses Diagnosis Breakthrough seizure (CMS/HCC) (HCC)- Primary documented in this encounter Care Teams Systems Design Engineer Relationship Specialty Start Date End Date Gulshan Mena DO [facility] [address] [place] [address] PCP - General 05/11/16 documented as of this encounter
--- OUTSIDE RECORDS SUMMARY | 2024-02-12 05:07 | XMS_ITS | Encounter Summary ---
Author Organization [facility] Medical Group Address [address] [place] [address] Care Team Providers Care Desk Top Publisher Name Role Phone Gulshan Mena DO Primary Care Provider Reason for Visit * Reason Onset Date Comments Seizure protocol 02/15/2020 Encounter Details Date Type Department Care Team (Late st Contact Info) Description 02/15/2020 Telephone [facility] [place] at [facility] [address] [place] [address] Jn Noble DO [address] [facility] [address] [place] [address] Seizure protocol Social History Tobacco Use Types Packs/Day Years Used Date Smoking Tobacco: Never Smokeless Tobacco: Never Alcohol Use Standard Drinks/Week Comments No 0 (1 standard drink = 0.6 oz pur e alcohol) Sex and Gender Information Value Date Recorded Sex Assigned at Not on file 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 INSERTER * Telephone Encounter - Mamadou Shi LPN - 02/16/2020 1:44 PM TIP INSERTER LVM for Destini to call back office. Please inform her that said every 3 minutes, total oftwo doses if needed. If seizures continue after 2nd dose and 3-5 minutes has passed, call 911 INSERTER * Telephone Encounter - Darryl Chacon - 02/16/2020 12:02 PM CST Destini LVM returning our call [phone] INSERTER * Telephone Encounter - Mamadou Shi LPN - 02/15/2020 3:10 PM TIP INSERTER Unable to reach DestiniCUBA for her to call back office. INSERTER * Telephone Encounter - Skye Daly - 02/15/2020 1:25 PM CST Emmy and Destini have two diff seizure protocols, one was from the office visit in Nov and the other from the mychart note. She would like a call to go over the seizure protocol with someone so theyknow they have it right. INSERTER documented in this encounter Plan of Treatment Not on file documented as of this encounter Visit Diagnoses Not on filedocumented in this encounter Care Teams Desk Top Publisher Relationship Specialty Start Date End Date Gulshan Mena DO [address] [address] PCP - General 05/11/16 documented as of this encounter
--- OUTSIDE RECORDS SUMMARY | 2024-02-12 05:07 | XMS_ITS | Encounter Summary ---
Author Organization [facility] Medical Group Address [address] [place] [address] Care Team Providers Care Drilling Engineer Name Role Phone Gulshan Mena DO Primary Care Provider Reason for Visit * Reason Onset Date Comments Test Results 06/13/2020 Encounter Details Date Type Department Care Team (Late st Contact Info) Description 06/13/2020 Telephone [facility] Neurology at [facility] [address] [place] [address] Cass Walker MA Test Results Social History Tobacco Use Types Packs/Day Years Used Date Smoking Tobacco: Never Smokeless Tobacco: Never Alcohol Use Standard Drinks/Week Comments No 0 (1 standard drink = 0.6 oz pur e alcohol) Sex and Gender Information Value Date Recorded Sex Assigned at Not on file 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 Gender Identity Not on file Sexual Orientation Not on file documented as of this encounter Miscellaneous Notes * Telephone Encounter - Mamadou Shi LPN - 06/16/2020 8:16 AM CDT Unable to reach, box full * Telephone Encounter - Mamadou Shi LPN - 06/14/2020 8:58 AM CDT Unable to reach, vm box full * Telephone Encounter - Cass Walker MA - 06/13/2020 12:30 PM CDT LVM asked for r/c * Telephone Encounter - Cass Walker MA - 06/13/2020 12:30 PM CDT ----- Message from ANGIE Rodriguez sent at 06/13/2020 12:26 PM CDT ----- Please call patient's defense analyst and inform them that I note some minor lab abnormalities that have been stable over time, these are of doubtful clinical significance; continue meds as prescribed documented in this encounter Plan of Treatment Not on file documented as of this encounter Visit Diagnoses Not on filedocumented in this encounter Care Teams Drilling Engineer Relationship Specialty Start Date End Date Gulshan Mena DO [address] [place] [address] PCP - General 05/11/16 documented as of this encounter
--- OUTSIDE RECORDS SUMMARY | 2024-02-12 05:07 | XMS_ITS | Encounter Summary ---
Author Organization [facility] Healthcare Address [address] [place] [address] Care Team Providers Care Welding Machine Operator Arc Name Role Phone Gulshan Mena DO Primary Care Provider Reason for Visit * Reason Comments Seizures Encounter Details Date Type Department Care Team (Late st Contact Info) Description 06/17/2020 7:45 PM CDT - 06/17/2020 11:24 PM CDT Emergency [facility] Emergency Department [address] [place] [address] Timmy Arthur MD [facility] [place] [address] Breakthrough seizure (CMS/HCC) (Primary Dx) Discharge Disposition: Discharge to home or self care Social History Tobacco Use Types Packs/Day Years Used Date Smoking Tobacco: Never Smokeless Tobacco: Never Alcohol Use Standard Drinks/Week Comments No 0 (1 standard drink = 0.6 oz pur e alcohol) Sex and Gender Information Value Date Recorded Sex Assigned at Not on file Legal Sex Male 12:55 PM 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 Gender Identity Not on file Sexual Orientation Not on file documented as of this encounter Last Filed Vital Signs Vital Sign Reading Time Taken Comments Blood Pressure 116/83 06/17/2020 11:00 PM CDT Pulse 68 06/17/2020 9:45 PM CDT Temperature 37.3 ??C (99.2 ??F) 06/17/2020 7:50 PM CD T Respiratory Rate 18 06/17/2020 9:45 PM CDT Oxygen Saturation 98% 06/17/2020 8:00 PM CDT Inhaled Oxygen Concentration - - Weight 83.9 kg (185 lb) 06/17/2020 7:50 PM CDT Height 170.2 cm (5' 7 ) 06/17/2020 7:50 PM CDT Body Mass Index 28.98 06/17/2020 7:50 PM CDT documented in this encounter Discharge Diagnoses Diagnosis Epilepsy, unspecified, not intractable, without status epilepticus (HCC) - EPILEPSY, UNSPECIFIED, NOT INTRACTABLE, WITHOUT STATUS EPILEPTICUS Fairview-Gastaut syndrome, not intractable, with status epilepticus (CMS/HCC) (HCC) - TANO-GASTAUT SYNDROME, NOT INTRACTABLE, WITH STATUS EPILEPTICUS Unspecified lack of expected normal physiological development in childhood - UNSPECIFIED LACK OF EXPECTED NORMAL PHYSIOLOGICAL DEVELOPMENT IN CHILDHOOD documented in this encounter Discharge Instructions * Discharge Instructions* Timmy Arthur MD - 06/17/2020 10:55 PM CDT Continue current seizure medication, return for any concerns * Attachments The following attachments cannot be sent through Care Everywhere. * Epilepsy (AfterCare(R) Instructions(ER/ED)) (Hungarian) documented in this encounter Medications at Time [...] BY MOUTH AT BEDTIME. 60 tablet 4 03/09/2020 1 clonazePAM (KlonoPIN) 0.5 mg tablet Take [...] ED Notes * Timmy Arthur MD - 06/17/2020 9:59 PM CDT HPI Chief Complaint Patient presents with ??? Seizures 35 year old male with a history of Tano-Gastaut syndrome, epilepsy, developmental delay presents with breakthrough seizures. He started having seizure tonight around 18:41. He has a vagus nerve stimulator which was used which initially stopped the seizure. He had recurrence around 10 minutes later, vagal nerve stimulator used again which did not completely stop the seizure. He was given intranasal diazepam 10 mg, then repeated for ongoing seizure activity. The seizure activities began to slow, however he continued to have intermittent grimacing and twitching to the face. He did not have generalized tonic-clonic activity. Since arriving to the emergency department the grimacing has slow tahmina n. There has been no other tonic-clonic activity. There has been no other illness such as fever, cough or diarrhea. There has been no trauma. He does have very frequent seizures Patient History: Patient Active Problem List Diagnosis Date Noted ??? 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 Active autistic disorder 07/10/2012 ??? Developmental delay 07/10/2012 Past Medical History: Diagnosis Date ??? HX OTHER MEDICAL Headache, migraine ??? Tano-Gastaut syndrome (CMS/HCC) Fairview-Gastaut; Comments: [facility] 07/16/2013 - ??? Seizure disorder (CMS/HCC) Seizure disorder ??? Tension headache Headache, tension [...] file Review of Systems Review of Systems Constitutional: Negative for fever. Eyes: Positive for itching. Respiratory: Negative. Cardiovascular: Negative. Gastrointestinal: Negative. Neurological: Positive for seizures. Psychiatric/Behavioral: Negative. Physical Exam ED Triage Vitals Temp Pulse Resp BP SpO2 06/17/20194906/17/20194406/17/20194906/17/20194406/17/201944 37.3 ??C (99.2 ??F) 68 21 102/73 97 % Temp src Heart Rate Source Patient Position BP Location FiO2 (%) 06/17/201949 -- -- -- -- Axillary Physical Exam Vitals and nursing note reviewed. Constitutional: General: He is not in acute distress. Appearance: Normal appearance. He is not ill-appearing or toxic-appearing. HENT: Head: Normocephalic. Eyes: Extraocular Movements: Extraocular movements intact. Comments: Tracks examiner Cardiovascular: Rate and Rhythm: Normal rate and regular rhythm. Pulses: Normal pulses. Heart sounds: Normal heart sounds. Pulmonary: Effort: Pulmonary effort is normal. Breath sounds: Normal breath sounds. Abdominal: General: Abdomen is flat. There is no distension. Palpations: Abdomen is soft. Tenderness: There is no abdominal tenderness. Musculoskeletal: General: No deformity. Cervical back: Normal range of motion and neck supple. Skin: Capillary Refill: Capillary refill takes less than 2 seconds. Neurological: Mental Status: He is alert. Mental status is at baseline. [facility] Medical Decision Making Differential Diagnosis or Management Options: 35-year-old male with previously mentioned past medical history presents with breakthrough seizures. He has been given 2 doses of intranasal diazepam prior to arrival and patient has not had any seizure activity during my examination. He is back to his baseline per staff. He is due for his evening medications including Vimpat and Onfi. Will obtain these through pharmacy, check for electrolyte disturbance. Fortunately he had no head trauma. He has had no recent illnesses. If seizure activity stabilizes anticipate discharge home. Attending Summary of Care ED Course as of Jun 18 2307 Time: 06/17 2252 Comment: No further seizure activity noted. Labs reassuring. Will discharge back home. He has received his evening antiepileptic medication. By: Timmy Arthur MD Breakthrough seizure (CMS/HCC) Timmy Arthur MD 06/17/200 * Fela Dickson RN - 06/17/2020 8:19 PM CDT Pt presented to ED with complaint of seizure activity tonight. Pt has a VNS implanted in left chest. Pt is non-verbal at baseline. Pt was given seizure medication, last dose at 0, pt still having small seizure like activity. Seizure pads placed on bed, suction ready at bedside if needed, caregiver at bedside. Fela Dickson RN 06/17/202020 * Tammy Esteves RN - 06/17/2020 7:45 PM CDT Bed: ED05 Expected date: Expected time: Means of arrival: Comments: Medic 242 Tammy Esteves RN 06/17/201944 documented in this encounter Plan of Treatment Not on file documented as of this encounter Procedures Procedure Name Priority Date/Time Associated Diagnosis Comments EGFR STAT 06/17/2020 8:08 PM CDT DIFFERENTIAL AUTO STAT 06/17/2020 8:0 8 PM CDT CBC WITH AUTO DIFFERENTIAL STAT 06/17/2020 8:08 PM CDT BASIC METABOLIC PANEL STAT 06/17/2020 8:08 PM CDT documented in this encounter Results * eGFR (06/17/2020 8:08 PM CDT) eGFR 99 mL/min/1.7 3 m2 [facility] Comment: Interpretive Data Reference Interval Normal [...] was last reviewed 2020 Blood specimen (specimen) 06/17/2020 8:08 PM CDT 06/17/2020 8:12 PM CDT us Timmy Arthur MD LAB BLOOD ORDERABLES Marissa l Result [facility] [address] [facility] Department [place] [address] * Differential, auto (06/17/2020 8:08 PM CDT) Pathologist [facility] Neutrophil abs 3.5 1.7 - 6.5 K/cumm [facility] Imm gran abs 0.0 0.0 - 0.1 K/cumm [facility] Lymphocyte abs 2.4 0.8 - 3.3 K/cumm [facility] Monocyte abs 0.5 0.2 - 0.8 K/cumm [facility] Eosinophil abs 0.2 0.0 - 0.5 K/cumm [facility] Basophil abs 0.0 0.0 - 0.1 K/cumm [facility] Neutrophil pct 52.7 % [facility] Comment: Interpretive Data Percent cell count reference ranges are not reported, since discordance with absolute values may lead to misinterpretation of CBC data. Current Interpretive Data was last revised on 2017. Imm gran pct 0.5 % [facility] Comment: Interpretive Data Percent cell count reference ranges are not reported, since discordance with absolute values may lead to misinterpretation of CBC data. Current Interpretive Data was last revised on 2017. Lymphocyte pct 35.9 % [facility] Comment: Interpretive Data Percent cell count reference ranges are not reported, since discordance with absolute values may lead to misinterpretation of CBC data. Current Interpretive Data was last revised on 2017. Monocyte pct 7.6 % [facility] Comment: Interpretive Data Percent cell count reference ranges are not reported, since discordance with absolute values may lead to misinterpretation of CBC data. Current Interpretive Data was last revised on 2017. Eosinophil pct 2.7 % [facility] Comment: Interpretive Data Percent cell count reference ranges are not reported, since discordance with absolute values may lead to misinterpretation of CBC data. Current Interpretive Data was last revised on 2017. Basophil pct 0.6 % [facility] Comment: Interpretive Data Percent cell count reference ranges are not reported, since discordance with absolute values may lead to misinterpretation of CBC data. Current Interpretive Data was last revised on 2017. Blood specimen (specimen) 06/17/2020 8:08 PM CDT 06/17/2020 8:12 PM CDT us Timmy Arthur MD LAB BLOOD ORDERABLES Marissa l Result [facility] [address] [facility] Department [place] [address] * Basic metabolic panel (06/17/2020 8:08 PM CDT) Pathologist [facility] Sodium 135 135 - 145 mmol/L [facility] Potassium, pl 4.3 3.3 - 4.9 mmol/L [facility] Chloride 104 97 - 110 mmol/L [facility] CO2 22 22 - 32 mmol/L [facility] Anion gap 9 2 - 15 mmol/L [facility] BUN 19 8 - 25 mg/dL [facility] Creatinine 0.99 0.80 - 1.30 mg/dL [facility] Glucose 90 70 - 199 mg/dL [facility] Comment: Interpretive Data Fasting glucose >/= [...] interpretive data was last revised 2016. Calcium 9.0 8.5 - 10.3 mg/dL [facility] Blood specimen (specimen) 06/17/2020 8:08 PM CDT 06/17/2020 8:12 PM CDT Timmy Arthur MD LAB BLOOD ORDERABLES Marissa l Result [facility] [address] [facility] Department [place] [address] * CBC with auto differential (06/17/2020 8:08 PM CDT) Pathologist [facility] WBC 6.6 3.8 - 9.9 K/cumm [facility] Hgb 14.5 13.0 - 17.5 g/dL [facility] Hct 42.7 38.9 - 50.3 % [facility] Plt 228 150 - 400 K/cumm [facility] MPV 9.3 9.1 - 12.3 fL [facility] RBC 4.53 4.30 - 5.80 M/cumm [facility] MCV 94.3 81.3 - 96.4 fL [facility] MCH 32.0 27.1 - 33.3 pg [facility] MCHC 34.0 32.3 - 35.7 g/dL [facility] RDW CV 12.4 11.1 - 14.9 % [facility] RDW SD 42.6 35.7 - 48.1 fL [facility] NRBC abs 0.00 0.00 - 0.01 K/cumm [facility] Blood specimen (specimen) 06/17/2020 8:08 PM CDT 06/17/2020 8:12 PM CDT Timmy Arthur MD LAB BLOOD ORDERABLES Marissa choi Result Performing Organization Address City/State/[facility] Co de Phone Number [facility] [address] [facility] Department [place] [address] documented in this encounter Visit Diagnoses Diagnosis Breakthrough seizure (CMS/HCC) (HCC)- Primary documented in this encounter Administered Medications Inactive Administered Medications - up to 3 most recent administrations Medication Order MAR Action Action Date Dose Rate Site cloBAZam (ONFI) tablet 40 mg 40 mg, oral, Nightly, First dose on Sat06/17/20 at 2134, Indications: Tano-Gastaut Syndrome Treatment AdjunctIndications:Fairview-Gastaut Syndrome Treatment Adjunct Given 06/17/2020 9:53 PM CDT 40 mg lacosamide (VIMPAT) tablet 200 mg 200 mg, oral, Once, On Sat06/17/20 at 2133, For 1 dose Given 06/17/2020 9:51 PM CDT 200 mg documented in this encounter Active and Recently Administered Medications Times are shown in CDT. Scheduled Medication Order 06/15/2020 06/16/2020 06/17/2020 cloBAZam (ONFI) tablet 40 mg 40 mg, oral, Nightly, First dose on Sat06/17/20 at 2134, Indications: Fairview-Gastaut Syndrome Treatment Adjunct 2152 (Given - Provid er: Fela Dickson RN) lacosamide (VIMPAT) tablet 200 mg (COMPLETED) 200 mg, oral, Once, On Sat06/17/20 at 2133, For 1 dose 2150 (Given - Provid er: Fela Dickson RN) documented in this encounter Orders Medications Ordered That Negro ht Not Have Been Administered Count Last Ordered Date First Ordered Date lacosamide (VIMPAT) tablet 200 mg 1 021 documented in this encounter Care Teams Welding Machine Operator Arc Relationship Specialty Start Date End Date Gulshan Mena DO [address] [place] [address] PCP - General 05/11/16 documented as of this encounter
--- OUTSIDE RECORDS SUMMARY | 2024-02-12 05:07 | XMS_ITS | Encounter Summary ---
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 Destini can be reached at [phone] documented in this encounter Plan of Treatment Not on file documented as of this encounter Visit Diagnoses Not on filedocumented in this encounter Care Teams Washer Operator Relationship Specialty Start Date End Date Gulshan Mena DO [address] [place] [address] PCP - General 05/11/16 documented as of this encounter
--- OUTSIDE RECORDS SUMMARY | 2024-02-12 05:07 | XMS_ITS | Encounter Summary ---
Author Organization [facility] Medical Group Address [address] [place] [address] Care Team Providers Care Disk Recordist Name Role Phone Gulshan Mena DO Primary Care Provider Reason for Visit * Reason Comments Seizures Encounter Details Date Type Department Care Team (Late Contact Info) Description 01/22/2019 10:15 AM HISTORICAL ARCHEOLOGIST Office Visit 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 (CMS/HCC) (Primary Dx); [...] on file Legal Sex Male 12:55 PM HISTORICAL ARCHEOLOGIST Gender Identity Not on file Sexual Orientation Not on file documented as of this encounter Last Filed Vital Signs Vital Sign Reading Time Taken Comments Blood Pressure 128/68 01/22/2019 10:33 AM HISTORICAL ARCHEOLOGIST Pulse - - Temperature - - Respiratory Rate 18 01/22/2019 10:33 AM HISTORICAL ARCHEOLOGIST Oxygen Saturation - - Inhaled Oxygen Concentration - - Weight 78.9 kg (174 lb) 01/22/2019 10:33 AM HISTORICAL ARCHEOLOGIST Height 175.3 cm (5' 9 ) 01/22/2019 10:33 AM HISTORICAL ARCHEOLOGIST Body Mass Index 25.7 01/22/2019 10:33 AM HISTORICAL ARCHEOLOGIST documented in this encounter Ordered Prescriptions Prescription Sig Dispense Quantity Refills Last Filled Start Date End Date midazolam 5 mg/spray (0.1 mL) spray,non-aerosolI ndications:Acute Repetitive Seizures Administer 2 ampules into affected nostril(s) as needed (Seizure that does not stop) 4 each 5 01/22/2019 0 documented in this encounter Progress Notes * Zac Noble DO - 01/22/2019 10:15 AM CST NEUROLOGY FOLLOW-UP NOTE Patient ID: Travis Beebe is a 33 y.o. male This patient is sent from Gulshan Mena DO for treatment of his seizures. History of present illness: Interrogated his new vagal nerve stimulator device today. The output current is increased to 2.5 milliamps, auto stim output is 2.5 milliamps and magnet output is increased to 2.75 milliamps. signal on time is is to remain at 30 sec, signal off time is to remain at 1.1 min, pulse width is 500 micro seconds and magnet stimulation time is 60 seconds Lead impedence is 3212 ohms Battery status is 50-75 the % Duty cycle is 35% Pt presents today with his loss prevention officer. Most seizures are occurring in the mornings or waking up fromnaps. The new VNS has remarkably cut down on need to take diazepam. He is tolerating medications well. Sometimes he hits if asked to do something he doesn't want to do. Tube Mounter reports no problems with the vagal nerve stimulator. He takes all his medications as prescribed. This patient has last had a seizure on the of this month, frequency is now at 2-3 per month. December he had around 18. Reviewed lamotrigine level from 06/2017 which was normal at 7.1, lacosamide was 12.7, high end of normal, zonisamide was normal at 30 6/ LTG 9, LAC 9.9, ZGN 23 Current [...] (ONFI) 20 mg tablet, Take 2 tablets by mouth daily at bedtime, Disp: 60 tablet, Rfl: 5 ??? clonazePAM (KlonoPIN) 0.5 mg tablet, Take 1 tablet by mouth twice daily, Disp: 60 tablet, Rfl: 3 ??? cloNIDine (CATAPRES) 0.1 mg tablet, Take 0.3 mg by mouth daily., Disp: , Rfl: ??? dextromethorphan-guaiFENesin (ROBITUSSIN-DM) 2-20 mg/mL liquid, Take 10 mL by mouth. Every 4-6 hours as needed for cough, Disp: , Rfl: ??? diazePAM (DIASTAT ACUDIAL) rectal kit, GIVE 20MG DIRECTED ONE TIME ONLY FOR STATUS EPILEPTICUS (Patient taking differently: give 20mg rectally for generalized seizures lasting more than 5 minutes, if still convulsing 30 minutes later give diastat 10mg rectally. If continuous partial seizure lasting more than 15 minutes guve diastat 20mg rectally. If still ticking or asn't returned to baseline 60 minutes later, give Diastat 10mg rectally. Call nurse if seizure activity continues after above protocol. Protocol m/b repeated in 4 hours PRN), Disp: 20 mg, Rfl: 5 ??? docusate sodium (COLACE) 100 [...] as needed cough/congestion, Disp: , Rfl: ??? lacosamide (VIMPAT) 100 mg tablet, Take 2 tablets (200 mg total) by mouth 2 (two) times a day, Disp: 120 tablet, Rfl: 5 ??? lamoTRIgine (LaMICtal) 150 mg tablet, TAKE [...] nostril as needed., Disp: , Rfl: ??? zonisamide (ZONEGRAN) 100 mg capsule, Take [...] (CMS/HCC) We will check antiepileptic drug levels at the next visit. The new vagal nerve stimulator device has improved his seizure frequency quite a bit but had a bad month in December of 2018. Will change Diastat to intranasal midazolam 2. 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 3. Active autistic disorder He does follow only the simplest of commands Follow up again in four months, sooner if needed Zac Noble D.O. 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
--- OUTSIDE RECORDS SUMMARY | 2024-02-12 05:07 | XMS_ITS | Encounter Summary ---
Author Organization [facility] Medical Group Address [address] [place] [address] Care Team Providers Care Medical Imaging Technologist Name Role Phone Gulshan Mena DO Primary Care Provider Reason for Visit * Reason Onset Date Comments Refill request 09/16/2020 Encounter Details Date Type Department Care Team (Late st Contact Info) Description 09/16/2020 Telephone [facility] Neurology at [facility] [address] [facility] [address] [place] [address] Jn Bishop DO [address] [facility] [address] [place] [address] Refill request Social History Tobacco Use Types Packs/Day Years Used Date Smoking Tobacco: Never Smokeless Tobacco: Never Alcohol Use Standard Drinks/Week Comments No 0 (1 standard drink = 0.6 oz pur e alcohol) Sex and Gender Information Value Date Recorded Sex Assigned at Not on file 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 2 each 5 09/16/2020 2 documented in this encounter Miscellaneous Notes * Addendum Note - Zac Bishop DO - 09/16/2020 3:56 PM CDTAddended by: Zac BISHOP on: 09/16/2020 03:56 PM Modules accepted: Orders * Addendum Note - Yash Daigle LPN - 09/16/2020 3:55 PM CDTAddended by: YASH DAIGLE on: 09/16/2020 03:55 PM Modules accepted: Orders * Telephone Encounter - Yash Daigle LPN - 09/16/2020 3:55 PM CDT Med pended * Telephone Encounter - Skye Daly - 09/16/2020 3:17 PM CDT Destini, nurse from [facility] told them a refill is needed for the Valtoco nasal spray. She would appreciate this done today so they have one at the facility [facility]. Dsetini would like a r/c at [phone] documented in this encounter Plan of Treatment [...] of 2 doses in 1 day. Reorder 03/18/2020 09/16/2020 documented as of this encounter Care Teams Medical Imaging Technologist Relationship Specialty Start Date End Date Gulshan Mena DO [address] [place] [address] PCP - General 05/11/16 documented as of this encounter
--- OUTSIDE RECORDS SUMMARY | 2024-02-12 05:07 | XMS_ITS | Encounter Summary ---
Author Organization [facility] Medical Group Address [address] [place] [address] Care Team Providers Care Programmable Logic Controller Assembler Name Role Phone Gulshan Mena DO Primary Care Provider [phone] Reason for Visit * Reason Onset Date Comments medication questions 12/10/2019 Encounter Details Date Type Department Care Team (Late st Contact Info) Description 12/10/2019 Telephone [facility] [place] [place] Neurology at [facility] [address] [place] [address] Jn Noble DO [address] [place] [address] medication questions Social History Tobacco Use Types Packs/Day Years Used Date Smoking Tobacco: Never Smokeless Tobacco: Never Alcohol Use Standard Drinks/Week Comments No 0 (1 standard drink = 0.6 oz pur e alcohol) Sex and Gender Information Value Date Recorded Sex Assigned at Not on file 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 * Telephone Encounter - Zac Noble DO - 12/10/2019 3:42 PM CDT ok * Telephone Encounter - Jess Campos LPN - 12/10/2019 2:46 PM CDT See below * Telephone Encounter - Darryl Chacon - 12/10/2019 2:02 PM CDT Yanely from [facility] wants a call from us to verify if we are increasing the nasal spray. Previously it was 1 spray PRN and now it is 2. [phone] documented in this encounter Plan of Treatment Not on file documented as of this encounter Visit Diagnoses Not on filedocumented in this encounter Care Teams Programmable Logic Controller Assembler Relationship Specialty Start Date End Date Gulshan [place] [address] PCP - General 05/11/16 documented as of this encounter
--- OUTSIDE RECORDS SUMMARY | 2024-02-12 05:07 | XMS_ITS | Encounter Summary ---
Author Organization [facility] Address [address] [place] [address] Care Team Providers Care Airplane Flight Attendant Name Role Phone Gulshan Mena DO Primary Care Provider [phone] Encounter Details Date Type Department Care Team (Late st Contact Info) Description 04/18/2020 Telephone [facility] [place] Neurology at [address] [address] Jess Campos LPN Social History Tobacco Use Types Packs/Day Years Used Date Smoking Tobacco: Never Smokeless Tobacco: Never Alcohol Use Standard Drinks/Week Comments No 0 (1 standard drink = 0.6 oz pur e alcohol) Sex and Gender Information Value Date Recorded Sex Assigned at Not on file Legal Sex Male 12:55 PM ONCOLOGY PHYSICIAN ASSISTANT Gender Identity Not on file Sexual Orientation Not on file documented as of this encounter Miscellaneous Notes * Telephone Encounter - Jess Campos LPN - 04/18/2020 8:30 AM ONCOLOGY PHYSICIAN ASSISTANT LVM for someone to call back regarding pt's VNS surgery. Is he still planning on getting his battery changed? Per the note, it is less than 15% so this needs to be scheduled urgently. The VNS surgeon's office has been unable to get in contact with anyone to schedule this procedure. If they want to go ahead with the VNS battery change, please call James at [phone] LOGY PHYSICIAN ASSISTANT documented in this encounter Plan of Treatment Not on file documented as of this encounter Visit Diagnoses Not on filedocumented in this encounter Care Teams Airplane Flight Attendant Relationship Specialty Start Date End Date Gulshan Mena DO [address] [place] [address] PCP - General 05/11/16 documented as of this encounter
--- OUTSIDE RECORDS SUMMARY | 2024-02-12 05:07 | XMS_ITS | Encounter Summary ---
Author Organization [facility] Healthcare Address [address] [place] [address] Care Team Providers Care Principal Quality Engineer Name Role Phone Gulshan Mena DO Primary Care Provider [phone] Encounter Details Date Type Department Care Team (Late st Contact Info) Description 04/04/2022 9:50 AM BAIL BONDSMAN Lab [address] [address] Refractory generalized nonconvulsive epilepsy (CMS/HCC) ([facility]) Social History Tobacco Use Types Packs/Day Years [...] on file Legal Sex Male 12:55 PM BAIL BONDSMAN Gender Identity Not on file Sexual Orientation Not on file documented as of this encounter Miscellaneous Notes * Result Encounter Note - Tosha Diamond PA - 04/06/2022 1:27 PM CST Please call pt and inform them that their labs were normal BONDSMAN documented in this encounter Plan of Treatment Not on file documented as of this encounter Procedures Procedure Name Priority Date/Time Associated Diagnosis Comments EDILIAMIDE Routine 04/04/2022 10:00 AM BAIL BONDSMAN Refractory generalized nonconvulsive epilepsy (CMS/HCC) (HCC) ZONISAMIDE LEVEL Routine 04/04/2022 10:0 0 AM BAIL BONDSMAN Refractory generalized nonconvulsive epilepsy (CMS/HCC) (HCC) LAMOTRIGINE LEVEL Routine 04/04/2022 10: 00 AM BAIL BONDSMAN Refractory generalized nonconvulsive epilepsy (CMS/HCC) (HCC) documented in this encounter Results * Zonisamide level (04/04/2022 10:00 AM BAIL BONDSMAN) Zonisamide 34 10 - 40 mcg/mL [facility] Comment: ADDITIONAL INFORMATION This test was developed and its performance characteristics determined by [facility] in a manner consistent with CLIA requirements. This test has not been cleared or approved by the U.S. Food and Drug Administration. Test Performed by: [facility] [place] [address] Chemical Inspector: Jim Quispe M.D. Ph.D.; CLIA# [id number] Blood 04/04/2022 10:0 0 AM BAIL BONDSMAN 04/04/2022 10:02 AM BAIL BONDSMAN us Tosha [facility] BLOOD ORDERABLES Final Resul t [facility] [address] Department [place] [address] * Lamotrigine level (04/04/2022 10:00 AM BAIL BONDSMAN) Lamotrigine 13.9 3.0 - 15.0 mcg/mL [facility] Comment: ADDITIONAL INFORMATION This test was developed and its performance characteristics determined by [facility] in a manner consistent with CLIA requirements. This test has not been cleared or approved by the U.S. Food and Drug Administration. Test Performed by: [facility] [place] [address] Chemical Inspector: Jim Quispe M.D. Ph.D.; CLIA# [id number] Blood 04/04/2022 10:0 0 AM BAIL BONDSMAN 04/04/2022 10:02 AM BAIL BONDSMAN us Tosha [facility] BLOOD ORDERABLES Final Resul t Performing Organization Address [facility] de Phone Number [address] [address] * (ABNORMAL) Lacosamide level (04/04/2022 10:00 AM BAIL BONDSMAN) Lacosamide 10.4(H) 1.0 - 10.0 mcg/mL [facility] Comment: ADDITIONAL INFORMATION This test was developed and its performance characteristics determined by [facility] in a manner consistent with CLIA requirements. This test has not been cleared or approved by the U.S. Food and Drug Administration. Test Performed by: [facility] [place] [address] Chemical Inspector: Jim Quispe M.D. Ph.D.; CLIA# [id number] Blood 04/04/2022 10:0 0 AM BAIL BONDSMAN 04/04/2022 10:02 AM BAIL BONDSMAN us Tosha [facility] BLOOD ORDERABLES Final Resul t Performing Organization Address [facility] Co de Phone Number [address] [phone] documented in this encounter Visit Diagnoses Diagnosis Refractory generalized nonconvulsive epilepsy (HCC) documented in this encounter Care Teams Principal Quality Engineer Relationship Specialty Start Date End Date Gulshan Mena DO [address] [place] [address] PCP - General 05/11/16 documented as of this encounter
--- OUTSIDE RECORDS SUMMARY | 2024-02-12 05:07 | XMS_ITS | Encounter Summary ---
Author Organization [facility] Medical Group Address [address] [place] [address] Care Team Providers Care Drawing Tender Name Role Phone Gulshan Mena DO Primary Care Provider Reason for Visit * Reason Comments Seizures Encounter Details Date Type Department Care Team (Late st Contact Info) Description 10/04/2020 9:30 AM CDT Office Visit [facility] Neurology at [facility] [address] [place] [phone] Tosha Elaine PA [address] [place] [address] Refractory generalized nonconvulsive epilepsy (CMS/HCC) (HCC) (Primary Dx); 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 male This patient is sent from Gulshan Mena DO for treatment of his seizures. History of present illness: Travis Beebe is a 35 y.o. male with a PMHx of Emmett-Gastaut syndrome, epilepsy, developmental delay??who p/w seizures. Reportedly, pt was at skilled nursing and he had a seizure at around 1930, lasted 1-2 mins 09/15/2020. He rec'd all of his night time seizure meds at around 1999. He had a second seizure at 2014 and was given diazepam 10mg IN at this time. He had reportedly fallen to the ground withthis seizure, but reportedly did not fall and hit head and no trauma. EMS was called because they were having difficulty getting pt up off the floor. EMS found his glucose to be 99. Pt is non-verbal and I am unable to get further hx at this time Patient presents today with his central office operator supervisor Andria. The patient has NanoRackss model 1000, serial #[id number] in the left chest wall. The impedance [...] 30 seconds as per this image: The magnet is to be used every 1-2 minutes as well as the nasal spray, 10 minutes between dosage, alternate nostrils and max 2 doses per day. If patient continues seizing after 3-5 minutes, call 911.Shinglehouse administrations should be by 3 days, with no more than 5 uses per month. Patient is otherwise doing well, appetite is good. Quality Inspector reports difficulty with sleep and night terrors hich are probable seizures. They report that most seizures are occurring in the morningsor waking up from naps. The new VNS has remarkably cut down on need to take diazepam. He is tolerating medications well. Sometimes he hits if asked to do something he doesn't want to do. Quality Inspector rep orts no problems with the vagal nerve stimulator. He takes all his medications as prescribed. Reviewed lacosamide level from 08/01 10.1, zonisamide 08/01 32, both decent levels 06/2017 lacosamide was 12.7, high end of normal, zonisamide was normal at 30 LTG 9, LAC 9.9, ZGN 23 The eMithilaHaat M1000 vagal nerve stimulator device is interrogated [...] 0.875 mA Auto stim pulse width is 500 [...] needed cough/congestion, Disp: , Rfl: ??? lacosamide (Vimpat) 100 mg tablet, Take 2 tablets (200 mg total) by mouth 2 (two) times a day, Disp: 360 tablet, Rfl: 3 ??? lamoTRIgine (LaMICtal) 150 mg tablet, TAKE [...] normal in July. The patients VNS was increased today. My plan is to keep auto stim off and ramp of his output current to 2.0 milliamps over the course of the next 8 visits. The patient had VNS replaced by Dr. Longo. We will keep auto stimulation features since his threshold is so high. This would allow for a better battery life seeing as he is getting less than 1 auto stimulation per day anyway. The VNS improved his seizure frequency quite a bit. Quality Inspector understands howto utilize the magnet as well as frequency of intranasal midazolam 2. 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 3. Active autistic disorder He does follow only the simplest of commands Return in about 6 months (around 04/06/2021). 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
--- OUTSIDE RECORDS SUMMARY | 2024-02-12 05:07 | XMS_ITS | Encounter Summary ---
Author Organization [facility] Address [address] [place] [address] Care Team Providers Care Store Operations Associate Name Role Phone Gulshan Mena DO Primary Care Provider Reason for Visit * Reason Comments Seizures Encounter Details Date Type Department Care Team (Latest Contact Info) Description 06/21/2020 11:00 AM CDT Procedure visit [facility] [place] Neurology at [facility] [address] [place] [address] Intractable [place]-Gastaut syndrome without status epilepticus (CMS/HCC) (Primary Dx) Social History Tobacco Use Types Packs/Day Years Used Date Smoking Tobacco: Never Smokeless Tobacco: Never Alcohol Use Standard Drinks/Week Comments No 0 (1 standard drink = 0.6 oz pur e alcohol) Sex and Gender Information Value Date Recorded Sex Assigned at Not on file Legal Sex Male 12:55 PM WINDOWS TECHNICAL SPECIALIST Gender Identity Not on file Sexual Orientation Not on file documented as of this encounter Last Filed Vital Signs Vital Sign Reading Time Taken Comments Blood Pressure 120/72 06/21/2020 10:54 AM CDT Pulse - - Temperature - - Respiratory Rate - - Oxygen Saturation - - Inhaled Oxygen Concentration - - Weight 83.9 kg (185 lb) 06/21/2020 10:54 AM CDT Height 170.2 cm (5' 7 ) 06/21/2020 10:54 AM CDT Body Mass Index 28.98 06/21/2020 10:54 AM CDT documented in this encounter Procedure Notes * Tosha Diamond PA - 06/21/2020 11:00 AM CDT Procedures Reviewed lamotrigine level from 06/08/2020 lacosamide was 11.4, high end of normal, zonisamide was normal at 30 LTG 9, LAC 9.9, ZGN 23 ?? The Sentiva M1000 vagal nerve stimulator device is interrogated and adjusted today as follows... Output current is increased to 0.375 mA Signal frequency remains at 30 hertz Pulse width is decreased to 250 ??s Signal on time remains at 30 sec Signal off time remains at 1.1 min Magnet output current is increased to 0.5 mA Magnet on and off times remained the same Auto stim output current is increased to 0.375 mA Auto stim pulse width is decreased [...] in quality of life is also addressed The patient had a seizure lasting approximately 1 hour 06/18/2020. [facility] proceeded to [facility]. He was given intranasal diazepam 10 mg, then repeated for ongoing seizure activity. The seizure activities began to slow, however he continued to have intermittent grimacing and twitching to the face. He did not have generalized tonic-clonic activity. There has been no other tonic-clonic activity. ?? 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
--- OUTSIDE RECORDS SUMMARY | 2024-02-12 05:07 | XMS_ITS | Encounter Summary ---
Author Organization [facility] Medical Group Address [address] [place] [address] Care Team Providers Care Protozoologist Name Role Phone Gulshan Mena DO Primary Care Provider Reason for Visit * Reason Onset Date Comments Medication order 09/01/2018 Encounter Details Date Type Department Care Team (Late st Contact Info) Description 09/01/2018 Telephone [facility] [place]rology at [facility] [address] [place] [address] Jn Noble DO [address] [place] [address] Medication order Social History Tobacco Use Types Packs/Day Years Used Date Smoking Tobacco: Never Smokeless Tobacco: Never Alcohol Use Standard Drinks/Week Comments No 0 (1 standard drink = 0.6 oz pur e alcohol) Sex and Gender Information Value Date Recorded Sex Assigned at Not on file Legal Sex Male 12:55 PM MENTAL HEALTH NURSE Gender Identity Not on file Sexual Orientation Not on file documented as of this encounter Miscellaneous Notes * Telephone Encounter - Dereck Jesus LPN - 09/01/2018 12:51 PM CDT Verbal order given to [facility] * Telephone Encounter - Zac Noble DO - 09/01/2018 11:11 AM CDT OK * Telephone Encounter - Skye Daly - 09/01/2018 10:54 AM CDT Nicci at [facility] called stating the pharmacy needs a new order for the Diastat acudial rectal kit. documented in this encounter Plan of Treatment Not on file documented as of this encounter Visit Diagnoses Not on filedocumented in this encounter Care Teams Protozoologist Relationship Specialty Start Date End Date Gulshan Mena DO [address] [place] [address] PCP - General 05/11/16 documented as of this encounter
--- OUTSIDE RECORDS SUMMARY | 2024-02-12 05:07 | XMS_ITS | Encounter Summary ---
Author Organization [facility] Medical Group Address [address] [place] [address] Care Team Providers Care Metallurgical Engineer Name Role Phone Gulshan Mena DO Primary Care Provider Encounter Details Date Type Department Care Team (Late st Contact Info) Description 08/14/2018 Orders Only [facility]rology at [facility] [address] [place] [address] Tosha Elaine PA [address] [place] [address] Social History Tobacco Use Types Packs/Day Years Used Date Smoking Tobacco: Never Smokeless Tobacco: Never Alcohol Use Standard Drinks/Week Comments No 0 (1 standard drink = 0.6 oz pur e alcohol) Sex and Gender Information Value Date Recorded Sex Assigned at Not on file Legal Sex Male 12:55 PM FLAME CUTTING SUPERVISOR Gender Identity Not on file Sexual Orientation Not on file documented as of this encounter Ordered Prescriptions Prescription Sig Dispense Quantity Refills Last Filled Start Date End Date clonazePAM (KlonoPIN) 0.5 mg tablet Take 1 tablet by mouth twice daily 60 tablet 3 08/14/2018 04/04/2021 documented in this encounter Plan of Treatment Not on file documented as of this encounter Visit Diagnoses Not on filedocumented in this encounter Discontinued Medications Medication Sig Discontinue Reason Start Date End Da te clonazePAM (KlonoPIN) 0.5 mg tablet TAKE (1) TABLET BY MOUTH TWICE A DAY. Reorder 06/16/2018 08/14/2018 documented as of this encounter Care Teams Metallurgical Engineer Relationship Specialty Start Date End Date Gulshan Mena DO [address] [place] [address] PCP - General 05/11/16 documented as of this encounter
--- OUTSIDE RECORDS SUMMARY | 2024-02-12 05:07 | XMS_ITS | Encounter Summary ---
Author Organization [facility] Medical Group Address [address] [place] [address] Care Team Providers Care Nuclear Worker Technician Name Role Phone Gulshan Mena DO Primary Care Provider Encounter Details Date Type Department Care Team (Late st Contact Info) Description 06/30/2021 Orders Only [facility] [address] [place] [address] Lali Diaz, [facility] Social History Tobacco Use Types Packs/Day Years [...] on file Legal Sex Male 12:55 PM INVESTIGATION MANAGER Gender Identity Not on file Sexual Orientation Not on file documented as of this encounter Plan of Treatment Not on file documented as of this encounter Visit Diagnoses Not on filedocumented in this encounter Care Teams Nuclear Worker Technician Relationship Specialty Start Date End Date Gulshan Mena DO [address] [place] [address] PCP - General 05/11/16 documented as of this encounter
--- OUTSIDE RECORDS SUMMARY | 2024-02-12 05:07 | XMS_ITS | Encounter Summary ---
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) Discharge Disposition: Discharge to home or self care Social History Tobacco Use Types Packs/Day Years Used Date Smoking Tobacco: Never Smokeless Tobacco: Never Alcohol Use Standard Drinks/Week Comments No 0 (1 standard drink = 0.6 oz pur e alcohol) Sex and Gender Information Value Date Recorded Sex Assigned at Not on file Legal Sex Male 12:55 PM BOX REPAIRER Gender Identity Not on file Sexual Orientation Not on file documented as of this encounter Discharge Disposition Disposition Code Departure Means Destination Discharge to home or self care documented in this encounter Plan of Treatment Not on file documented as of this encounter Procedures Procedure Name Priority Date/Time Associated Diagnosis Comments LACOSAMIDE Routine 06/08/2020 12:03 PM CDT 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 This test has not been cleared or approved by the U.S. Food and Drug Administration. Test Performed by: [facility] [place] [address] Police Commissioner: Jim Quispe M.D. Ph.D.; CLIA# [id number] Blood specimen (specimen) 06/08/2020 12:03 PM CDT 06/08/2020 6:35 PM CDT us Tosha ADAMS LAB BLOOD ORDERABLES Final Resul t SERGEI [address] Department [place] [address] * (ABNORMAL) Lacosamide level (06/08/2020 12:03 PM CDT) Lacosamide 11.4(H) 1.0 - 10.0 mcg/mL SERGEI Comment: ADDITIONAL INFORMATION This test was developed and its performance characteristics determined by [facility] in a manner consistent with CLIA requirements. This test has not been cleared or approved by the U.S. Food and Drug Administration. Test Performed by: [facility] [address] [place] [address] Police Commissioner: Jim Quispe M.D. 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
--- OUTSIDE RECORDS SUMMARY | 2024-02-12 05:07 | XMS_ITS | Encounter Summary ---
Author Organization [facility] Medical Group Address [address] [place] [address] Care Team Providers Care Market Stall Vendor Name Role Phone Gulshan Mena DO Primary Care Provider [phone] Reason for Visit * Reason Onset Date Comments medication request 08/13/2018 Encounter Details Date Type Department Care Team (Late st Contact Info) Description 08/13/2018 Telephone [facility] Neurology at [facility] [address] [place] [address] Tosha Elaine PA [address] [address] [address] [place] [address] medication request Social History Tobacco Use Types Packs/Day Years Used Date Smoking Tobacco: Never Smokeless Tobacco: Never Alcohol Use Standard Drinks/Week Comments No 0 (1 standard drink = 0.6 oz pur e alcohol) Sex and Gender Information Value Date Recorded Sex Assigned at Not on file Legal Sex Male 12:55 PM HAT MAKER Gender Identity Not on file Sexual Orientation Not on file documented as of this encounter Miscellaneous Notes * Telephone Encounter - Tosha Diamond PA - 08/14/2018 9:13 AM CDT done * Telephone Encounter - Darryl Chacon - 08/13/2018 11:31 AM CDT Abena from [facility] needs us to send a new script for Clonazepam with Tosha as prescriber since Dr Noble is not able to prescribe [place]. Pt will be out of med today. Can we E scribe a new script? documented in this encounter Plan of Treatment Not on file documented as of this encounter Visit Diagnoses Not on filedocumented in this encounter Care Teams Market Stall Vendor Relationship Specialty Start Date End Date Gulshan Mena DO [address] [place] [address] PCP - General 05/11/16 documented as of this encounter
--- OUTSIDE RECORDS SUMMARY | 2024-02-12 05:07 | XMS_ITS | Encounter Summary ---
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); Refractory generalized nonconvulsive epilepsy (CMS/HCC); Developmental delay; Active autistic disorder Social History Tobacco Use Types Packs/Day Years Used Date Smoking Tobacco: Never Smokeless Tobacco: Never Alcohol Use Standard Drinks/Week Comments No 0 (1 standard drink = 0.6 oz pur e alcohol) Sex and Gender Information Value Date Recorded Sex Assigned at Not on file 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 The??Sentiva M1000 vagal nerve stimulator device is interrogated and adjusted today as follows... Output current is increased to 0.75 mA Signal frequency remains at 30 hertz Pulse width is??decreased to 250?s Signal on time remains at??30??sec Signal off time remains at??1.1??min Magnet output current is increased to??1.00??mA Magnet on and off times remained the same Magnet pulse width remains at 500 ??s Auto stim output current is increased to 0.75 mA Auto stim pulse width is??decreased to 250 ??s Heart beat detection sensitivity remains at 3 Duty cycle is 35 % Output current is good as well as lead impedance at 3866 and battery stimulus indicator remains green At least 35 minutes was spent with patient, adjusting the device and discussing VNS device. ??Five adjustments were made, counseling is offered, and interview regarding impact in quality of life is also addressed ?? The patient had two seizures this morning, each lasting approximately 1 minute. They were able to use the magnet which stopped the seizure activity. ??The seizure activities began to slow, however hecontinued to have intermittent grimacing and twitching to the face. ??He did not have generalized tonic-clonic activity.??There has been no other tonic-clonic activity. Some lethargy. documented in this encounter Plan of Treatment Not on file documented as of this encounter Results * (ABNORMAL) Lacosamide level (07/19/2020 12:17 PM CDT) Lacosamide 10.1(H) 1.0 - 10.0 mcg/mL SER[facility] CHA Comment: ADDITIONAL INFORMATION This test was developed and its performance characteristics determined by [facility] in a manner consistent with CLIA requirements. This test has not been cleared or approved by the U.S. Food and Drug Administration. Test Performed by: [facility] [address] [place] [address] Customer Solutions Specialist: Jim Quispe M.D. Ph.D.; CLIA# [id number] Blood specimen (specimen) 07/19/2020 12:17 PM CDT 07/19/2020 6:52 PM CDT Tosha ADAMS LAB BLOOD ORDERABLES Final Resul t Performing Organization Address [facility] Co de Phone Number SERGEI CHA [address] [place] [address] * Zonisamide level (07/19/2020 12:17 PM CDT) Zonisamide 32 10 - 40 mcg/mL SERGE[facility] CHA Comment: ADDITIONAL INFORMATION This test was developed and its performance characteristics determined by [facility] in a manner consistent with CLIA requirements. This test has not been cleared or approved by the U.S. Food and Drug Administration. Test Performed by: [facility] [address] [place] [address] Customer Solutions Specialist: Jim Quispe M.D. 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
--- OUTSIDE RECORDS SUMMARY | 2024-02-12 05:07 | XMS_ITS | Encounter Summary ---
Author Organization [facility] Medical Group Address [address] [place] [address] Care Team Providers Care Executive Producer Name Role Phone Gulshan Mena DO Primary Care Provider Reason for Visit * Reason Onset Date Comments Test Results 07/22/2020 Encounter Details Date Type Department Care Team (Late st Contact Info) Description 07/22/2020 Telephone [facility] Neurology at [address] [address] Cass Walker MA Test Results Social History Tobacco Use Types Packs/Day Years Used Date Smoking Tobacco: Never Smokeless Tobacco: Never Alcohol Use Standard Drinks/Week Comments No 0 (1 standard drink = 0.6 oz pur e alcohol) Sex and Gender Information Value Date Recorded Sex Assigned at Not on file 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 Gender Identity Not on file Sexual Orientation Not on file documented as of this encounter Miscellaneous Notes * Telephone Encounter - Cass Walker MA - 07/22/2020 3:15 PM CDT lvm for pt no need to r/c * Telephone Encounter - Cass Walker MA - 07/22/2020 3:14 PM CDT ----- Message from Zac Noble DO sent at 07/22/2020 2:29 PM CDT ----- The AED level is good, stay on the current dose documented in this encounter Plan of Treatment Not on file documented as of this encounter Visit Diagnoses Not on filedocumented in this encounter Care Teams Executive Producer Relationship Specialty Start Date End Date Gulshan Mena DO [address] [place] [address] PCP - General 05/11/16 documented as of this encounter
--- OUTSIDE RECORDS SUMMARY | 2024-02-12 05:07 | XMS_ITS | Encounter Summary ---
Author Organization [facility] Address [address] [place] [address] Care Team Providers Care Assistant Softball Coach Name Role Phone Gulshan Mena DO Primary Care Provider Reason for Visit * Reason Onset Date Comments medication question 08/18/2018 Encounter Details Date Type Department Care Team (Late st Contact Info) Description 08/18/2018 Telephone [facility] Neurology at [facility] [address] [place] [address] Jn Noble DO [address] [facility] [address] [place] [address] medication question Social History Tobacco Use Types Packs/Day Years Used Date Smoking Tobacco: Never Smokeless Tobacco: Never Alcohol Use Standard Drinks/Week Comments No 0 (1 standard drink = 0.6 oz pur e alcohol) Sex and Gender Information Value Date Recorded Sex Assigned at Not on file 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 Gender Identity Not on file Sexual Orientation Not on file documented as of this encounter Miscellaneous Notes * Telephone Encounter - Dereck Jesus LPN - 08/19/2018 2:21 PM CDT Left message for Erin to return call with fax# to fax Clonazepam D/C order * Telephone Encounter - Zac Noble DO - 08/18/2018 4:22 PM CDT DC clonazepam * Telephone Encounter - Steff Evans LPN - 08/18/2018 3:08 PM CDT MSG sent to to review and determine if medication was to be d/c or if pt is to still be on both medications * Telephone Encounter - Darryl Chacon - 08/18/2018 12:07 PM CDT Erin, a nurse from [facility], said she thinks there has been a miscommunication about meds.We need to send an order to DC Clonazepam because pt has not been taking this and to take Clobazam.These orders need to go to [facility] jignesh and erin for her file. Erin number [phone] documented in this encounter Plan of Treatment Not on file documented as of this encounter Visit Diagnoses Not on filedocumented in this encounter Care Teams Assistant Softball Coach Relationship Specialty Start Date End Date Gulshan Mena DO [address] [place] [address] PCP - General 05/11/16 documented as of this encounter
--- OUTSIDE RECORDS SUMMARY | 2024-02-12 05:07 | XMS_ITS | Encounter Summary ---
Author Organization [facility] Healthcare Address [address] [place] [address] Care Team Providers Care Emergency Veterinarian Name Role Phone Gulshan Mena DO Primary Care Provider Encounter Details Date Type Department Care Team (Late st Contact Info) Description 07/19/2020 12:20 PM CDT Lab [facility] Outpatient [facility] Services at [facility] [address] [place] [phone] Jn Noble DO [address] [place] [address] Tosha Elaine PA [address] [place] [address] Intractable [place]-Gastaut syndrome without status epilepticus (CMS/HCC) Discharge Disposition: Discharge to home or self care Social History Tobacco Use Types Packs/Day Years Used Date Smoking Tobacco: Never Smokeless Tobacco: Never Alcohol Use Standard Drinks/Week Comments No 0 (1 standard drink = 0.6 oz pur e alcohol) Sex and Gender Information Value Date Recorded Sex Assigned at Not on file 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 Gender Identity Not on file Sexual Orientation Not on file documented as of this encounter Discharge Disposition Disposition Code Departure Means Destination Discharge to home or self care documented in this encounter Plan of Treatment Not on file documented as of this encounter Procedures Procedure Name Priority Date/Time Associated Diagnosis Comments LACOSAMIDE Routine 07/19/2020 12:17 PM CDT 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 This test has not been cleared or approved by the U.S. Food and Drug Administration. Test Performed by: [place] [address] Director Of Alumni Relations: Jim Quispe M.D. Ph.D.; CLIA# [id number] Blood specimen (specimen) 07/19/2020 12:17 PM CDT 07/19/2020 6:52 PM CDT us Tosha ADAMS LAB BLOOD ORDERABLES Final Resul t SERGEI CHA [address] [place] [address] * (ABNORMAL) Lacosamide level (07/19/2020 12:17 PM CDT) Lacosamide 10.1(H) 1.0 - 10.0 mcg/mL SER[facility]I CHA Comment: ADDITIONAL INFORMATION This test was developed and its performance characteristics determined by [facility] in a manner consistent with CLIA requirements. This test has not been cleared or approved by the U.S. Food and Drug Administration. Test Performed by: [facility] [address] [place] [address] Director Of Alumni Relations: Jim Quispe M.D. Ph.D.; CLIA# [id number] Blood specimen (specimen) 07/19/2020 12:17 PM CDT 07/19/2020 6:52 PM CDT us Tosha ADAMS LAB BLOOD ORDERABLES Final Resul t SERGEI [address] [place] [address] documented in this encounter Visit Diagnoses Diagnosis Intractable El[place]-Gastaut syndrome without status epilepticus (CMS/HCC) (HCC) documented in this encounter Care Teams Emergency Veterinarian Relationship Specialty Start Date End Date Gulshan Mena DO [address] [place] [address] PCP - General 05/11/16 documented as of this encounter
--- OUTSIDE RECORDS SUMMARY | 2024-02-12 05:07 | XMS_ITS | Encounter Summary ---
Author Organization [facility] Address [address] [place] [address] Care Team Providers Care Yard Caller Name Role Phone Gulshan Mena DO Primary Care Provider [phone] Encounter Details Date Type Department Care Team (Late st Contact Info) Description 04/04/2022 9:00 AM LANDING SCALER Office Visit [facility] Neurology at [address] [place] [phone] Emiliana Elaine PA [address] [place] [address] Refractory generalized nonconvulsive epilepsy (CMS/HCC) (HCC) (Primary Dx); 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) (HCC); Active autistic disorder; S/P placement [...] on file Legal Sex Male 12:55 PM LANDING SCALER Gender Identity Not on file Sexual Orientation Not on file documented as of this encounter Last Filed Vital Signs Vital Sign Reading Time Taken Comments Blood Pressure 116/76 04/04/2022 9:12 AM LANDING SCALER Pulse - - Temperature - - Respiratory Rate - - Oxygen Saturation - - Inhaled Oxygen Concentration - - Weight 80.7 kg (178 lb) 04/04/2022 9:12 AM LANDING SCALER Height 166 cm (5' 5.35 ) 04/04/2022 9:12 AM LANDING SCALER Body Mass Index 29.3 04/04/2022 9:12 AM LANDING SCALER documented in this encounter Progress Notes * Emiliana Diamond PA - 04/04/2022 9:00 AM CST NEUROLOGY FOLLOW-UP Patient ID: Travis Beebe is a 36 y.o. male This patient is sent from Gulshan Mena DO for treatment of his seizures. History of present illness: Patient's travel registered nurse icu Lorenza is at bedside who helps provide [...] in January. Since then he has been doingpretty well. Sleeping well at night and getting along with others. Travis Beebe is a 35 y.o. male with a PMHx of Centerpoint-Gastaut syndrome, epilepsy, developmental delay who p/w seizures. [...] was in September. Reportedly, [facility] and he had a seizure at around [...] up off the floor. The patient has [employer] model 1000, serial #[id number] in the left chest wall. The impedance [...] patient continues seizing after 3-5 minutes, call 911.[place] administrations should be by 3 days, with no more than 5 uses per month. Patient is otherwise doing well, appetite is good. Global Sales Manager reports difficulty with sleep and night terrors hich are probable seizures. They report that most seizures are occurring in the morningsor waking up from naps. The new VNS has remarkably cut down on need to take diazepam. He is tolerating medications well. Sometimes he hits if asked to do something he doesn't want to do. Global Sales Manager rep orts no problems with the vagal nerve stimulator. He takes all his medications as prescribed. Reviewed lacosamide level from 10/02 9.5, ZNG 31 08/01 10.1, zonisamide 08/01 32, both decent levels 06/2017 lacosamide was 12.7, high end of normal, zonisamide was normal at 30 6/19 LTG 9, LAC 9.9, ZGN 23 [employer] M1000 vagal nerve stimulator device is interrogated and adjusted today as follows... Output current is increased to 1.125 mA Signal frequency remains at 30 hertz Pulse width is 250 ??s Signal on time remains at 30 sec Signal off time remains at 1.1 min Magnet output current is increased to 1.625 mA Magnet on and off times remained the same Auto stim output current is increased to 1.125 mA Auto stim pulse width is decreased to 250 ??s Heart beat detection sensitivity remains at 3 Duty cycle is 35 % Auto stim threshold is 40% Output current is good as well as lead impedance at 3318 and battery stimulus indicator remains green, 50-75% At least 25 minutes was spent with patient, adjusting the device and discussing VNS device. Three adjustments were made, counseling is offered, and interview regarding impact in quality of life is also addressed Current Outpatient Medications: acetaminophen (TYLENOL) 325 mg tablet, Take 650 mg by mouth every 6 (six) hours as needed for pain., Disp: , Rfl: bisacodyl (DULCOLAX) 10 mg suppository, Insert 10 mg into the rectum daily as needed for constipation., Disp: , Rfl: bisacodyl EC (DULCOLAX EC) 5 mg EC tablet, Take 5 mg by mouth daily as needed for constipation, Disp: , Rfl: busPIRone (BUSPAR) 10 mg tablet, take 1 tablet by oral route 3 times every day (Patient taking differently: Take 10 mg by mouth 3 (three) times a day), Disp: 270, Rfl: 3 carbamide peroxide (DEBROX) 6.5 % otic solution, 6.5 %. (Patient taking differently: Administer 4 drops into each ear 2 (two) times a day First 3 days of each month), Disp: 0 drop, Rfl: 0 cloBAZam (ONFI) 20 mg tablet, TAKE (1) TABLET BY MOUTH AT BEDTIME., Disp: 30 tablet, Rfl: 5 cloNIDine (CATAPRES) 0.1 mg tablet, Take 0.3 mg by mouth daily., Disp: , Rfl: diazePAM (Valtoco) 10 mg/spray (0.1 mL) spray,non-aerosol, Administer 10 mg into one nostril once as needed (seizure) for up to 1 dose May repeat if needed, max of 2 doses in 1 day., Disp: 2 each, Rfl: 5 docusate sodium (COLACE) 100 mg capsule, Take 100 mg by mouth 2 (two) times a day., Disp: , Rfl: ergocalciferol (VITAMIN D2) 50,000 unit capsule, take 1 capsule by oral route every week, Disp: 0, Rfl: 0 famotidine (PEPCID) 20 mg tablet, Take 20 mg by mouth 2 (two) times a day, Disp: , Rfl: food supplemt, lactose-reduced 0.04-1.05 gram-kcal/mL liquid, , Disp: , Rfl: guaiFENesin ER (MUCINEX) 600 mg 12 hr tablet, Take 400 mg by mouth Every 4-6 hours as needed cough/congestion, Disp: , Rfl: lacosamide (VIMPAT) 100 mg tablet, TAKE (2) TABLETS BY MOUTH TWICE DAILY., Disp: 120 tablet, Rfl: 5 lamoTRIgine (LaMICtal) 150 mg tablet, TAKE (2) TABLETS BY MOUTH THREE TIMES DAILY., Disp: 186 tablet, Rfl: 0 loperamide (IMODIUM) 2 mg capsule, Take 4 mg by mouth At onset of diarrhea, give adtl tab after each diarrheal stool up to 4 tabs a day, Disp: , Rfl: loratadine (CLARITIN) 10 mg tablet, Take 10 mg by mouth daily, Disp: , Rfl: magnesium hydroxide (CONCENTRATED MILK of MAGNESIA) 240 mg/ mL suspension, Take 30 mL by mouth every other day., Disp: , Rfl: multivitamin tablet tablet, take 2 Tablet by Oral route every day, Disp: 0, Rfl: 0 polyethylene glycol (MIRALAX) 17 gram packet, Take 17 g by mouth daily, Disp: , Rfl: propranolol LA (INDERAL LA) 160 mg 24 hr capsule, take 1 capsule by oral route every bedtime, Disp:0, Rfl: 0 sodium chloride (OCEAN) 0.65 % nasal spray, Administer 2 sprays into each nostril as needed., Disp:, Rfl: zonisamide (ZONEGRAN) 100 mg capsule, Take 4 [...] nonconvulsive epilepsy (CMS/HCC) His last levels were normal. The patients VNS was adjusted today. My plan is to keep auto stim off and ramp of his output current to 2.0 milliamps over the course of the next 8 visits. This would allow for a better battery life seeing as he is getting less than 1 autostimulation per day anyway. TheVNS improved his seizure frequency quite a bit. Global Sales Manager understands how to utilize the magnet as well as frequency of intranasal Valtoco. Check labs today zonisamide, lacosamide, Lamictal to monitor for toxicity - Lamotrigine level; Future - Lacosamide level; [...] his battery life is estimated to be 50-75%. Return in about 4 months (around 08/02/2022). My total encounter time on 04/04/2022 was 25 minutes which was spent in the activities documented inthe note. This includes time spent prior to the visit and after the visit in direct care of the patient. This time does not include time spent in any separately reportable services. Emiliana Diamond PA-C Physician Channel Man, Neurology Office: ING SCALER documented in this encounter Miscellaneous Notes * Addendum Note - Emiliana Diamond PA - 04/04/2022 9:00 AM CSTAddended by: EMILIANA DIAMOND on: 04/04/2022 10:50 AM Modules accepted: Level of Service ING SCALER documented in this encounter Plan of Treatment Not on file documented as of this encounter Results * Zonisamide level (04/04/2022 10:00 AM LANDING SCALER) Zonisamide 34 10 - 40 mcg/mL [facility] Comment: ADDITIONAL INFORMATION This test was developed and its performance characteristics determined by [facility] in a manner consistent with CLIA requirements. This test has not been cleared or approved by the U.S. Food and Drug Administration. Test Performed by: [facility] [place] [address] Airways Operations Specialist: Jim Quispe M.D. Ph.D.; CLIA# [id number] Blood 04/04/2022 10:0 0 AM LANDING SCALER 04/04/2022 10:02 AM LANDING SCALER us Emiliana ADAMS LAB BLOOD ORDERABLES Final Resul t [facility] [address] [facility] [facility] Department [place] [address] * (ABNORMAL) Lacosamide level (04/04/2022 10:00 AM LANDING SCALER) Lacosamide 10.4(H) 1.0 - 10.0 mcg/mL [facility] Comment: ADDITIONAL INFORMATION This test was developed and its performance characteristics determined by [facility] in a manner consistent with CLIA requirements. This test has not been cleared or approved by the U.S. Food and Drug Administration. Test Performed by: [facility] [place] [address] Airways Operations Specialist: Jim Quispe M.D. Ph.D.; CLIA# [id number] Blood 04/04/2022 10:0 0 AM LANDING SCALER 04/04/2022 10:02 AM LANDING SCALER us Emiliana ADAMS LAB BLOOD ORDERABLES Final Resul t Performing Organization Address [facility] de Phone Number [address] Department [place] [address] * Lamotrigine level (04/04/2022 10:00 AM LANDING SCALER) Pathologist [facility] Lamotrigine 13.9 3.0 - 15.0 mcg/mL [facility] Comment: ADDITIONAL INFORMATION This test was developed and its performance characteristics determined by [facility] in a manner consistent with CLIA requirements. This test has not been cleared or approved by the U.S. Food and Drug Administration. Test Performed by: [facility] - [address] [address] Airways Operations Specialist: Jim Quispe M.D. Ph.D.; CLIA# [id number] Blood 04/04/2022 10:0 0 AM LANDING SCALER 04/04/2022 10:02 AM LANDING SCALER us Emiliana ADAMS LAB BLOOD ORDERABLES Final Resul t Performing Organization Address [facility] de Phone Number [facility] [address] [facility] Department 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 03/20/2021 04/04/2022 propranolol LA (INDERAL LA) 160 mg 24 hr capsule take 1 capsule by oral route every bedtime 07/16/2013 04/04/2022 documented as of this encounter Historical Medications * This list may reflect changes made after this encounter. propranolol LA (INDERAL LA) 120 mg 24 hr capsule Take 1 capsule (120 mg total) by mouth daily diphenhydrAMINE (BENADRYL) 25 mg capsule Take 1 tablet/capsule (25 mg total) by mouth every 6 (six) hours as needed for itching added in this encounter Care Teams Yard Caller Relationship Specialty Start Date End Date Gulshan [place] [address] PCP - General 05/11/16 documented as of this encounter
--- OUTSIDE RECORDS SUMMARY | 2024-02-12 05:07 | XMS_ITS | Encounter Summary ---
Author Organization [facility] Address [address] [place] [address] Care Team Providers Care Clinical Nurse Reviewer Name Role Phone Gulshan Mena DO Primary Care Provider Encounter Details Date Type Department Care Team (Late st Contact Info) Description 04/06/2022 Telephone [facility] at [address] [place] [address] Meg Lee LPN Social History Tobacco Use Types Packs/Day [...] on file Legal Sex Male 12:55 PM MANAGER OF CUSTOMER BILLING Gender Identity Not on file Sexual Orientation Not on file documented as of this encounter Miscellaneous Notes * Telephone Encounter - Meg Lee LPN - 04/06/2022 1:39 PM MANAGER OF CUSTOMER BILLING Spoke with Hermila on hippa to inform that pt labs were normal. GER OF CUSTOMER BILLING * Telephone Encounter - Meg Lee LPN - 04/06/2022 1:38 PM MANAGER OF CUSTOMER BILLING ----- Message from ANGIE Rodriguez sent at 04/06/2022 1:27 PM MANAGER OF CUSTOMER BILLING ----- Please call pt and inform them that their labs were normal GER OF CUSTOMER BILLING documented in this encounter Plan of Treatment Not on file documented as of this encounter Visit Diagnoses Not on filedocumented in this encounter Care Teams Clinical Nurse Reviewer Relationship Specialty Start Date End Date Gulshan Mena DO [address] [place] [address] PCP - General 05/11/16 documented as of this encounter
--- OUTSIDE RECORDS SUMMARY | 2024-02-12 05:07 | XMS_ITS | Encounter Summary ---
Author Organization [facility] Address [address] [place] [address] Care Team Providers Care Retread Builder Name Role Phone Gulshan Mena DO Primary Care Provider [phone] Encounter Details Date Type Department Care Team (Late st Contact Info) Description 10/10/2022 11:00 AM CDT Office Visit [facility] Neurology at [place] [address] 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 Gender Identity Not on file Sexual Orientation Not on file documented as of this encounter Last Filed Vital Signs Vital Sign Reading Time Taken Comments Blood Pressure 120/74 10/10/2022 11:18 AM CDT Pulse - - Temperature - - Respiratory Rate - - Oxygen Saturation - - Inhaled Oxygen Concentration - - Weight - - Height - - Body Mass Index - - documented in this encounter Patient Instructions * Patient Instructions* Tosha Diamond PA - 10/10/2022 11:00 AM CDT documented in this encounter Progress Notes * Tosha Diamond PA - 10/10/2022 11:00 AM CDT NEUROLOGY FOLLOW-UP Patient ID: Travis Beebe is a 37 y.o. male This patient is sent from Gulshan Mena DO for treatment of his seizures. IMP/REC: 1. Refractory generalized nonconvulsive epilepsy (CMS/HCC) Patient continues to have refractory seizures despite stable ASM levels that are above normal. Discussed adding additional medications such as cannabidiol oral solution. The patients VNS was adjustedtoday. I increased output parameters today and have kept the auto stim off in order to ramp his output current to 2.0 milliamps over the course of the next 8 visits. This would allow for a better battery life seeing as he is getting less than 1 autostimulation per day anyway. The VNS improved his seizure frequency quite a bit. Contract Technical Writer understands how to utilize the magnet as well as frequency of intranasal Valtoco. That you use to do this recognizes I just seen in [place] pre on because at 0 2 why remember the main role Neurology working stopped caring I have a day it is hard Checked labs at the last visit for zonisamide, lacosamide, Lamictal to monitor for toxicity and there were normal. Increase VNS output parameters today. If he continues to have significant amount of seizures in the future (especially episodes lasting >20 minutes considering adding additional medication such as: CANNABIDIOL 100 MG/ML ORAL SOLUTION Unfortunately, this may result in having to change onfi, etc dosages Repeat in 6 months: - Lamotrigine level; Future - Lacosamide level; Future - Zonisamide level; Future 2. 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 History of present illness: Interval history: Seizures have been frequent. Valtoco is used and is mostly effective. I reviewed 22 page log of seizure journal which included an average of 17 seizures per month. Two which were greater than 20 minutes. Magnet and nasal spray attempted. Denies any difficulty with medication ingestion. 2.[address] judge Lorenza is at bedside who helps provide [...] was in September. Reportedly, pt was at [facility] and he had a seizure at around [...] up off the floor. The patient has [employer] model 1000, serial #[id number] in the left chest wall. The impedance [...] patient continues seizing after 3-5 minutes, call 911.[place] administrations should be by 3 days, with no more than 5 uses per month. Patient is otherwise doing well, appetite is good. Contract Technical Writer reports difficulty with sleep and night terrors hich are probable seizures. They report that most seizures are occurring in the morningsor waking up from naps. The new VNS has remarkably cut down on need to take diazepam. He is tolerating medications well. Sometimes he hits if asked to do something he doesn't want to do. Contract Technical Writer rep orts no problems with the vagal [...] 10.4 (H) (H): Data is abnormally high [employer] M1000 vagal nerve stimulator device is interrogated and adjusted today as follows... Output current is increased to 1.25 mA Signal frequency remains at 30 hertz Pulse width is 250 ??s Signal on time remains at 30 sec Signal off time remains at 1.1 min Magnet output current is increased to 1.75 mA Magnet on and off times remained the same Auto stim output current is increased to 1.25 mA Auto stim pulse width is decreased [...] also addressed My total encounter time on 10/10/2022 was 32 minutes which was spent in the activities [...] 4 cloNIDine (CATAPRES) 0.1 mg tablet, Take 0.3 mg by mouth daily., Disp: , Rfl: diazePAM (Valtoco) 10 mg/spray (0.1 mL) spray,non-aerosol, Administer 10 mg into one nostril once as needed (seizure) for up to 1 dose May repeat if needed, max of 2 doses in 1 day., Disp: 2 each, Rfl: 5 diphenhydrAMINE (BENADRYL) 25 mg capsule, Take 25 mg by mouth every 6 (six) hours [...] LA) 120 mg 24 hr capsule, Take 120 mg by mouth daily, Disp: , Rfl: sodium [...] movements Return in about 6 months (around 04/11/2023). 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
--- OUTSIDE RECORDS SUMMARY | 2024-02-12 05:07 | XMS_ITS | Encounter Summary ---
Author Organization [facility] Address [address] [place] [address] Care Team Providers Care Skill Training Program Coordinator Name Role Phone Gulshan Mena DO Primary Care Provider [phone] Reason for Visit * Reason Comments Seizures 8/18- 20 min seizure . VNS was swiped. 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 male This patient is sent from Gulshan Mena DO for treatment of his seizures. History of present illness: Travis Beebe is a 35 y.o. male with a PMHx of Mullica Hill-Gastaut syndrome, epilepsy, developmental delay??who p/w seizures. The patient had COVID in July. He also had a 20 minute seizure 09/28/21. It didnot subside with VNS magnet nor Valtoco. The [...] was in September. Reportedly, [facility] and he had a seizure at around 1930, lasted 1-2 mins 09/15/2020. He rec'd all of his night time seizure meds at ar ound 1999. He had a second seizure at 2014 and was given diazepam 10mg IN at this time. He had reportedly fallen to the ground with this seizure, but reportedly did not fall and hit head and no trauma. EMS was called because they were having difficulty getting pt up off the floor. The patient has [employer] model 1000, serial #[id number] in the left chest wall. The impedance [...] patient continues seizing after 3-5 minutes, call 911.[place] administrations should be by 3 days, with no more than 5 uses per month. Patient is otherwise doing well, appetite is good. Ground Support Agent reports difficulty with sleep and night terrors hich are probable seizures. They report that most seizures are occurring in the morningsor waking up from naps. The new VNS has remarkably cut down on need to take diazepam. He is tolerating medications well. Sometimes he hits if asked to do something he doesn't want to do. Ground Support Agent rep orts no problems with the vagal nerve stimulator. He takes all his medications as prescribed. Reviewed lacosamide level from 10/02 9.5, ZNG 31 08/01 10.1, zonisamide 08/01 32, both decent levels 06/2017 lacosamide was 12.7, high end of normal, zonisamide was normal at 30 LTG 9, LAC 9.9, ZGN 23 The Sentiva M1000 vagal nerve stimulator device is interrogated and adjusted today as follows... Output current is increased to 1.00 mA Signal frequency remains at 30 hertz Pulse width is 250 ??s Signal on time remains at 30 sec Signal off time remains at 1.1 min Magnet output current is increased to 1.5 mA Magnet on and off times remained the same Auto stim output current is increased to 1.00 mA Auto stim pulse width is decreased to 250 ??s Heart beat detection sensitivity remains at 3 Duty cycle is 35 % Auto stim threshold is 40% Output current is good as well as lead impedance at 3445 and battery stimulus indicator remains green, 50-75% At least 35 minutes was spent with [...] needed for constipation., Disp: , Rfl: ??? bisacodyl EC (DULCOLAX EC) 5 mg EC tablet, Take 5 mg by mouth daily as needed for constipation,Disp: , Rfl: ??? busPIRone (BUSPAR) 10 mg tablet, take 1 tablet by oral route 3 times every day (Patient taking differently: Take 5 mg by mouth 3 (three) times a day), Disp: 270, Rfl: 3 ??? carbamide peroxide (DEBROX) 6.5 % otic solution, 6.5 %. (Patient taking differently: Administer4 drops into each ear 2 (two) times a day First 3 days of each month), Disp: 0 drop, Rfl: 0 ??? cloBAZam (ONFI) 20 mg tablet, Take 1 tablet (20 mg total) by mouth nightly, Disp: 60 tablet, Rfl: 4 ??? cloNIDine (CATAPRES) 0.1 mg tablet, Take [...] route every week, Disp:0, Rfl: 0 ??? famotidine (PEPCID) 20 mg tablet, Take 20 mg by mouth 2 (two) times a day, Disp: , Rfl: ??? food supplemt, lactose-reduced 0.04-1.05 gram-kcal/mL liquid, , Disp: , Rfl: ??? guaiFENesin ER (MUCINEX) 600 mg 12 hr tablet, Take 400 mg by mouth Every 4-6 hours as needed cough/congestion, Disp: , Rfl: ??? lacosamide (Vimpat) 100 mg tablet, Take 2 tablets by mouth twice daily, Disp: 180 tablet, Rfl: 5 ??? lamoTRIgine (LaMICtal) 150 mg tablet, TAKE (2) TABLETS BY MOUTH THREE TIMES DAILY., Disp: 186 tablet, Rfl: 0 ??? loperamide (IMODIUM) 2 mg capsule, Take 4 mg by mouth At onset of diarrhea, give adtl tab aftereach diarrheal stool up to 4 tabs a day, Disp: , Rfl: ??? magnesium hydroxide (CONCENTRATED MILK of MAGNESIA) 240 mg/ mL suspension, Take 30 mL by mouth every other day., Disp: , Rfl: ??? multivitamin tablet tablet, take 2 Tablet by Oral route every day, Disp: 0, Rfl: 0 ??? polyethylene glycol (MIRALAX) 17 gram packet, Take 17 g by mouth daily, Disp: , Rfl: ??? propranolol LA (INDERAL LA) 160 mg 24 hr capsule, take 1 capsule by oral route every bedtime, Disp: 0, Rfl: 0 ??? sodium chloride (OCEAN) 0.65 % [...] (CMS/HCC) His last levels were normal in this month. The patients VNS was adjusted today. My plan is to keep auto stim off and ramp of his output current to 2.0 milliamps over the course of the next 8 visits. This would allow for a better battery life seeing as he is getting less than 1 autostimulation per day anyway. The VNS improved his seizure frequency quite a bit. Ground Support Agent understands how to utilize the magnet as well as frequency of intranasal Valtoco. Check labs at the next visit, zonisamide, [...] estimated to be 50-75%. Return in about 6 months (around 04/04/2022). 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 loratadine (CLARITIN) 10 mg tablet Take 1 tablet (10 mg total) by mouth daily added in this encounter Additional Health Concerns Infection Onset Date Last Indicated Resolved Time COVID: Recovered Comment:Added based on recent COVID infection. 08/19/2021 09/26/2021 12/17/2021 3:[address] documented as of this encounter Care Teams Skill Training Program Coordinator Relationship Specialty Start Date End Date Gulshan Mena DO [address] [place] [address] PCP - General 05/11/16 documented as of this encounter
--- OUTSIDE RECORDS SUMMARY | 2024-02-12 05:07 | XMS_ITS | Encounter Summary ---
Author Organization [facility] Address [address] [place] [address] Care Team Providers Care Bookkeeping Machine Mechanic Name Role Phone Gulshan Mena DO Primary Care Provider Reason for Visit * Reason Comments Seizures Encounter Details Date Type Department Care Team (Late st Contact Info) Description 09/15/2020 8:59 PM CDT - 09/15/2020 10:52 PM CDT Emergency [facility] Emergency Department [address] [place] [id number] Gulshan Lopez MD [address] [place] [address] [place] [address] Breakthrough seizure (CMS/HCC) (HCC) (Primary Dx) Discharge Disposition: Discharge to home or self care Social History Tobacco Use Types Packs/Day Years Used Date Smoking Tobacco: Never Smokeless Tobacco: Never Alcohol Use Standard Drinks/Week Comments No 0 (1 standard drink = 0.6 oz pur e alcohol) Sex and Gender Information Value Date Recorded Sex Assigned at Not on file 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 Gender Identity Not on file Sexual Orientation Not on file documented as of this encounter Last Filed Vital Signs Vital Sign Reading Time Taken Comments Blood Pressure 105/67 09/15/2020 10:00 PM CDT Pulse 77 09/15/2020 10:00 PM CDT Temperature 36.9 ??C (98.5 ??F) 09/15/2020 9:02 PM CD T Respiratory Rate 19 09/15/2020 10:00 PM CDT Oxygen Saturation 95% 09/15/2020 10:00 PM CDT Inhaled Oxygen Concentration - - Weight 81.7 kg (180 lb 1.9 oz) 09/15/2020 9:02 P M CDT Height 165.1 cm (5' 5 ) 09/15/2020 9:02 PM CDT Body Mass Index 29.97 09/15/2020 9:02 PM CDT documented in this encounter Discharge Diagnoses Diagnosis Tracy-Gastaut syndrome, not intractable, with status epilepticus (CMS/HCC) (HCC) - TANO-GASTAUT SYNDROME, NOT INTRACTABLE, WITH STATUS EPILEPTICUS Allergy status to penicillin - ALLERGY STATUS TO PENICILLIN documented in this encounter Discharge Instructions * Discharge Instructions* Gulshan Lopez MD - 09/15/2020 10:15 PM CDT Call your neurologist to discuss further management as needed. * Attachments The following attachments cannot be sent through Care Everywhere. * Seizure, Recurrent (Adult) (Sammarinese) documented in this encounter Medications at Time [...] ED Notes * Gulshan Lopez MD - 09/15/2020 10:06 PM CDT HPI: Travis Beebe is a 35 y.o. male with a PMHx of Tano-Gastaut syndrome, epilepsy, developmental delay who p/w seizures. Reportedly, pt was at [facility]-way and he had a seizure at around 1930, lasted 1-2 mins. He rec'd all of his night time [...] unable to get further hx at this time. PMHx, SOCIAL / FAMILY HISTORY: I have read and agree with the pertinent medical/surgical history, psychiatric history, social history, and family history as documented by nursing. REVIEW OF SYSTEMS: Unable to perform ROS due to non-verbal VITALS Vitals: 09/15/20 2102 09/15/20 2130 09/15/20 2200 BP: 112/76 103/64 105/67 Pulse: 77 74 77 Resp: 16 17 19 Temp: 36.9 ??C (98.5 ??F) TempSrc: Axillary SpO2: 93% 93% 95% Weight: 81.7 kg (180 lb 1.9 oz) Height: 165.1 cm (5' 5 ) PHYSICAL EXAM: VS Reviewed - CONSTITUTIONAL: Well-developed, well-nourished. - HEAD: Normocephalic. - EYES: EOMI, no conjunctival injection. - CARDS: Regular rate and rhythm - RESP: Breath sounds clear b/l. Breathing unlabored. - ABD: Soft, non-tender w/o guarding or rebound. - EXT: MAEW. Distal pulses intact. No edema. - SKIN: Warm and dry. No rashes. - NEURO: Alert and interactive, regards examiner, non-verbal which is baseline. Appears grossly intact w no focal abnormality. MEDICAL DECISION MAKING: - Pt here with breakthrough seizures this evening. No signs of trauma. Workup here is unremarkable.Will instruct outpt f/u with neuro. 1. Breakthrough seizure (CMS/HCC) (HCC) Signed by Gulshan Lopez MD, 09/15/20 10:15 PM. ???Portions of the record may have been created with voice recognition software. Occasional wrong-word or ???[id number]??? substitutions may have occurred due to the inherent limitations of voice recognition software. Read the chart carefully and recognize, using context, where substitutions haveoccurred.?? Gulshan Lopez MD 09/15/202214 * Tammy Esteves RN - 09/15/2020 8:59 PM CDT Bed: ED02 Expected date: Expected time: Means of arrival: Comments: Medic 242 Tammy Esteves RN 09/15/202058 * Sally Warren RN - 09/15/2020 8:57 PM CDT Pt from half-way w/ 3 witnessed seizures, each lasting about 1-2 min per staff. First seizure around 1930; 3rd seizure around 2014 and IN Valtoco 10mg given. VSS for medics, BS 99. Non-verbal baseline. documented in this encounter Plan of Treatment Not on file documented as of this encounter Procedures Procedure Name Priority Date/Time Associated Diagnosis Comments LACTATE STAT 09/15/2020 9:04 PM CDT EGFR STAT 09/15/2020 9:04 PM CDT DIFFERENTIAL AUTO STAT 09/15/2020 9:0 4 PM CDT CBC WITH AUTO DIFFERENTIAL STAT 09/15/2020 9:04 PM CDT BASIC METABOLIC PANEL STAT 09/15/2020 9:04 PM CDT ECG 12-LEAD STAT 09/15/2020 9:01 PM CDT documented in this encounter Results * eGFR (09/15/2020 9:04 PM CDT) eGFR 84 mL/min/1.7 3 m2 [facility] Comment: Interpretive Data Reference Interval Normal [...] was last reviewed 2020 Blood specimen (specimen) 09/15/2020 9:04 PM CDT 09/15/2020 9:14 PM CDT us Gulshan Lopez MD LAB BLOOD ORDERABLES Final Re sult [facility] [address] [place] [address] * Differential, auto (09/15/2020 9:04 PM CDT) Neutrophil abs 3.8 1.7 - 6.5 K/cumm [facility] Imm gran abs 0.0 0.0 - 0.1 K/cumm [facility] Lymphocyte abs 1.9 0.8 - 3.3 K/cumm [facility] Monocyte abs 0.6 0.2 - 0.8 K/cumm [facility] Eosinophil abs 0.2 0.0 - 0.5 K/cumm [facility] Basophil abs 0.1 0.0 - 0.1 K/cumm [facility] Neutrophil pct 57.3 % [facility] Comment: Interpretive Data Percent cell count reference ranges are not reported, since discordance with absolute values may lead to misinterpretation of CBC data. Current Interpretive Data was last revised on 2017. Imm gran pct 0.2 % [facility] Comment: Interpretive Data Percent cell count reference ranges are not reported, since discordance with absolute values may lead to misinterpretation of CBC data. Current Interpretive Data was last revised on 2017. Lymphocyte pct 29.4 % [facility] Comment: Interpretive Data Percent cell count reference ranges are not reported, since discordance with absolute values may lead to misinterpretation of CBC data. Current Interpretive Data was last revised on 2017. Monocyte pct 9.6 % [facility] Comment: Interpretive Data Percent cell count reference ranges are not reported, since discordance with absolute values may lead to misinterpretation of CBC data. Current Interpretive Data was last revised on 2017. Eosinophil pct 2.7 % [facility] Comment: Interpretive Data Percent cell count reference ranges are not reported, since discordance with absolute values may lead to misinterpretation of CBC data. Current Interpretive Data was last revised on 2017. Basophil pct 0.8 % [facility] Comment: Interpretive Data Percent cell count reference ranges are not reported, since discordance with absolute values may lead to misinterpretation of CBC data. Current Interpretive Data was last revised on 2017. Blood specimen (specimen) 09/15/2020 9:04 PM CDT 09/15/2020 9:14 PM CDT Gulshan Lopez MD LAB BLOOD ORDERABLES Final Re sult Performing Organization Address City/[facility]/ZIP Co de Phone Number [address] [place] [address] * Lactate (09/15/2020 9:04 PM CDT) [facility] Lactate 0.9 0.7 - 2.0 mmol/L [facility] Blood specimen (specimen) 09/15/2020 9:04 PM CDT 09/15/2020 9:15 PM CDT Gulshan Lopez MD LAB BLOOD ORDERABLES Final Re sult Performing Organization Address [facility] Co de Phone Number [address] [address] * CBC with auto differential (09/15/2020 9:04 PM CDT) [facility] WBC 6.6 3.8 - 9.9 K/cumm [facility] Hgb 14.2 13.0 - 17.5 g/dL [facility] Hct 41.3 38.9 - 50.3 % [facility] Plt 209 150 - 400 K/cumm [facility] MPV 9.3 9.1 - 12.3 fL [facility] RBC 4.39 4.30 - 5.80 M/cumm [facility] MCV 94.1 81.3 - 96.4 fL [facility] MCH 32.3 27.1 - 33.3 pg [facility] MCHC 34.4 32.3 - 35.7 g/dL [facility] RDW CV 13.0 11.1 - 14.9 % [facility] RDW SD 44.7 35.7 - 48.1 fL [facility] NRBC abs 0.00 0.00 - 0.01 K/cumm [facility] Blood specimen (specimen) 09/15/2020 9:04 PM CDT 09/15/2020 9:14 PM CDT Gulshan Lopez MD LAB BLOOD ORDERABLES Final Re sult Performing Organization Address [facility] Co de Phone Number [facility] [address] Department [place] [address] * Basic metabolic panel (09/15/2020 9:04 PM CDT) [facility] Sodium 137 135 - 145 mmol/L [facility] Potassium, pl 4.0 3.3 - 4.9 mmol/L [facility] Chloride 106 97 - 110 mmol/L [facility] CO2 22 22 - 32 mmol/L [facility] Anion gap 9 2 - 15 mmol/L [facility] BUN 18 8 - 25 mg/dL [facility] Creatinine 1.13 0.80 - 1.30 mg/dL [facility] Glucose 107 70 - 199 mg/dL [facility] Comment: Interpretive Data Fasting glucose >/= 126 [...] interpretive data was last revised 2016. Calcium 9.1 8.5 - 10.3 mg/dL [facility] Blood specimen (specimen) 09/15/2020 9:04 PM CDT 09/15/2020 9:14 PM CDT Gulshan Lopez MD LAB BLOOD ORDERABLES Final Re sult Performing Organization Address [facility] Co de Phone Number [address] [place] [address] * ECG 12 lead (09/15/2020 9:01 PM CDT) 09/15/2020 9:01 PM CDT Narrative [facility] - 01/27/2021 2:54 AM GRAVITY PROSPECTING OBSERVER HELPER Vent Rate: 77 bpm RR Interval: 777 msec MA Interval: 175 msec QRS Duration: 98 msec QT Interval: 361 msec QTC Interval: 392 msec P-R-T [place]: 2 - -2 - 8 degrees SINUS RHYTHM NONSPECIFIC T-WAVE ABNORMALITY BORDERLINE ECG Electronically Signed By: Gulshan Gillis DO, [facility] us Gulshan Lopez MD ECG ORDERABLES Edited Result - Final [facility] documented in this encounter Visit Diagnoses Diagnosis Breakthrough seizure (CMS/HCC) (HCC)- Primary documented in this encounter Orders Nursing Count Last Ordered Date First Orde red Date CARDIO RESPIRATORY MONITORING 1 09/15/2020 IV Count Last Ordered Date First Orde red Date INSERT PERIPHERAL IV 1 09/15/2020 SALINE LOCK IV 1 09/15/2020 documented in this encounter Care Teams Bookkeeping Machine Mechanic Relationship Specialty Start Date End Date Gulshan Mena DO [address] [place] [address] PCP - General 05/11/16 documented as of this encounter
--- OUTSIDE RECORDS SUMMARY | 2024-02-12 05:07 | XMS_ITS | Encounter Summary ---
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
--- OUTSIDE RECORDS SUMMARY | 2024-02-12 05:07 | XMS_ITS | Encounter Summary ---
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) Social History Tobacco Use Types Packs/Day Years Used Date Smoking Tobacco: Never Smokeless Tobacco: Never Alcohol Use Standard Drinks/Week Comments No 0 (1 standard drink = 0.6 oz pur e alcohol) Sex and Gender Information Value Date Recorded Sex Assigned at Not on file Legal Sex Male 12:55 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 Gender Identity Not on file Sexual Orientation Not on file documented as of this encounter Last Filed Vital Signs Vital Sign Reading Time Taken Comments Blood Pressure 122/70 07/05/2020 11:01 AM CDT Pulse - - Temperature - - Respiratory Rate - - Oxygen Saturation - - Inhaled Oxygen Concentration - - Weight 83.9 kg (185 lb) 07/05/2020 11:01 AM CDT Height 170.2 cm (5' 7 ) 07/05/2020 11:01 AM CDT Body Mass Index 28.98 07/05/2020 11:01 AM CDT documented in this encounter Procedure Notes * Tosha Diamond PA - 07/05/2020 11:00 AM CDT Procedures Reviewed lamotrigine level from 06/08/2020 lacosamide was 11.4, high end of normal, zonisamide was normal at 30 6/'19 ??LTG 9, LAC 9.9, ZGN 23 ?? The??Sentiva M1000 vagal nerve stimulator device is interrogated and adjusted today as follows... Output current is increased to 0.5 mA Signal frequency remains at 30 hertz Pulse width is decreased to 250 ??s Signal on time remains at??30??sec Signal off time remains at??1.1??min Magnet output current is increased to??0.75??mA Magnet on and off times remained the same Auto stim output current is increased to 0.5 mA Auto stim pulse width is decreased [...] is also addressed ?? The patient had a seizure lasting approximately 1 hour 06/18/2020. He proceeded to [facility]. ??He was given intranasal diazepam 10 mg, then repeated for ongoing seizure activity. ??The seizure activities began to slow, however he continued to have intermittent grimacing and twitching to the face. ??He did not have generalized tonic-clonic activity.??There has been no othertonic-clonic activity. ?? 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
--- OUTSIDE RECORDS SUMMARY | 2024-02-12 05:08 | XMS_ITS | Encounter Summary ---
Author Organization [facility] Medical Group Address [address] [place] [address] Care Team Providers Care Tube Bending Machine Operator Name Role Phone Gulshan Mena DO Primary Care Provider Reason for Visit * Reason Onset Date Comments Med Refill 05/05/2018 Encounter Details Date Type Department Care Team (Late st Contact Info) Description 05/05/2018 Telephone [facility] [place] Neurology at 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 It can be called or faxed in. He is down to his last one. documented in this encounter Plan of Treatment Not on file documented as of this encounter Visit Diagnoses Not on filedocumented in this encounter Care Teams Tube Bending Machine Operator Relationship Specialty Start Date End Date Gulshan Mena DO [address] [place] [address] PCP - General 05/11/16 documented as of this encounter
--- OUTSIDE RECORDS SUMMARY | 2024-02-12 05:08 | XMS_ITS | Encounter Summary ---
Author Organization [facility] Medical Group Address [address] [place] [address] Care Team Providers Care Data Governance Analyst Name Role Phone Gulshan Mena DO Primary Care Provider [phone] Reason for Visit * Reason Onset Date Comments VNS question 04/30/2017 Encounter Details Date Type Department Care Team (Late st Contact Info) Description 04/30/2017 Telephone [facility] [place] Neurology at [facility] [address] [place] [address] Jn Noble DO [address] [place] [address] VNS question Social History Tobacco Use Types Packs/Day Years Used Date Smoking Tobacco: Never Alcohol Use Standard Drinks/Week Comments No 0 (1 standard drink = 0.6 oz pur e alcohol) Sex and Gender Information Value Date Recorded Sex Assigned at Not on file 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 Noble he wants the pt to get the new model for his VNS replacement,Gudelia was informed. * Telephone Encounter - Darryl Chacon - 04/30/2017 1:51 PM CDT Pt is waiting to Sentiva to be approved. Gudelia wants to talk to some one about which model they should pick. documented in this encounter Plan of Treatment Not on file documented as of this encounter Visit Diagnoses Not on filedocumented in this encounter Care Teams Data Governance Analyst Relationship Specialty Start Date End Date Gulshan Mena DO [address] [place] [address] PCP - General 05/11/16 documented as of this encounter
--- OUTSIDE RECORDS SUMMARY | 2024-02-12 05:08 | XMS_ITS | Encounter Summary ---
Author Organization [facility] Medical Group Address [address] [place] [address] Care Team Providers Care Desktop Publishing Operator Name Role Phone Gulshan Mena DO Primary Care Provider Encounter Details Date Type Department Care Team (Late st Contact Info) Description 01/18/2017 10:00 AM POLE PEELING MACHINE OPERATOR Procedure visit [facility] [address] [place] [address] Jn Noble DO [address] [place] [address] 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); Active autistic disorder Social History Tobacco Use Types Packs/Day Years Used Date Smoking Tobacco: Never Alcohol Use Standard Drinks/Week Comments No 0 (1 standard drink = 0.6 oz pur e alcohol) Sex and Gender Information Value Date Recorded Sex Assigned at Not on file Legal Sex Male 12:55 PM POLE PEELING MACHINE OPERATOR Gender Identity Not on file Sexual Orientation Not on file documented as of this encounter Ordered Prescriptions Prescription Sig Dispense Quantity Refills Last Filled Start Date End Date zonisamide (ZONEGRAN) 100 mg capsuleIndications :Partial Epilepsy Treatment Adjunct Take 4 capsules (400 mg total) by mouth 2 (two) times a day. 240 capsule 11 01/18/2017 documented in this encounter Progress Notes * Jn Noble DO - 01/18/2017 10:00 AM CST Patient ID: Travis Beebe is a 31 y.o. male This patient is sent from Gulshan Mena DO for treatment of his seizures. HPI: Seizures Patient been doing pretty well with the seizures. He has had 12 over the past month which is under decent control for Travis. In September there were 13 seizures, October he had quite a few more 22 nic exact. He has had to have Diastat utilized in the past few months. He takes his medications as prescribed. He has been more active in the community, going bowling. He is happy for the most part. They are interested newer VNS device with the heart rate detector. Reviewed laboratory data from 08/06/2016 which revealed lamotrigine level of 10.4, good, lacosamidelevel of 8, good, zonisamide level 22.2, decent. Current Outpatient Prescriptions: ??? acetaminophen (TYLENOL) 325 mg tablet, Take 650 mg by mouth every 6 (six) hours as needed for pain., Disp: , Rfl: ??? bisacodyl (DULCOLAX) 10 mg suppository, Insert 10 mg into the rectum daily as needed for constipation., Disp: , Rfl: ??? bisacodyl 5 mg tablet, Take 10 mg by mouth daily as needed (constipation)., Disp: , Rfl: ??? busPIRone (BUSPAR) 10 mg tablet, take 1 tablet by oral route 3 times every day, Disp: 270, Rfl:3 ??? carbamide peroxide (DEBROX) 6.5 % otic solution, 6.5 %. (Patient taking differently: Administer4 drops into each ear 2 (two) times a day. First 3 days of each month ), Disp: 0 drop, Rfl: 0 ??? cloBAZam (ONFI) tablet, Take 2 tablet by mouth daily at bedtime (Patient taking differently: Take 20 mg by mouth nightly. Take 2 tablet by mouth daily at bedtime ), Disp: 60 tablet, Rfl: 5 ??? cloNIDine (CATAPRES) 0.1 mg tablet, Take [...] PRN), Disp: 20 mg, Rfl: 5 ??? diazePAM (DIASTAT) 2.5 mg kit, insert 10 milligram by rectal route every prn seizure (Patient taking differently: 2.5 mg. give 20mg rectally for generalized seizures lasting more than 5 minutes, if still convulsing 30 minutes later give diastat 10mg rectally. If continuous partial seizure lasting more than 15 minutes guve diastat ), Disp: 2 kit, Rfl: 1 ??? docusate sodium (COLACE) 100 mg capsule, Take 100 mg by mouth 2 (two) times a day., Disp: , Rfl: ??? ergocalciferol (VITAMIN D2) 50,000 unit capsule, take 1 capsule by oral route every week, Disp:0, Rfl: 0 ??? guaiFENesin ER (MUCINEX) 600 mg 12 hr tablet, Take 400 mg by mouth. Every 4- 6 hours as needed cough/congestion, Disp: , Rfl: ??? lacosamide (VIMPAT) 100 mg tablet, Take 2 tablets (200 mg total) by mouth 2 (two) times a day.,Disp: , Rfl: ??? lamoTRIgine (LaMICtal) 150 mg tablet, Take 300 mg by mouth 3 (three) times a day. , Disp: , Rfl: ??? loperamide (IMODIUM) 2 mg capsule, Take [...] ??? zonisamide (ZONEGRAN) 100 mg capsule, Take 100 mg by mouth. Take 2 caps by mouth at 8am and 4 caps at 8pm, Disp: , Rfl: Review of Systems Much of this is [...] Refractory generalized nonconvulsive epilepsy (CMS/HCC) We will increase the zonisamide by 200 mg, he will take 40 mg twice daily and continue the other seizure medications as prescribed. 2. 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 3. Active autistic disorder He does follow only the simplest of commands Vagal nerve stimulator device was interrogated, we did not make changes to any of the settings and could not get a good handle on the battery life but we are pretty certain that it is nearing the endof its life cycle prompting need for the newer device. Zac Noble D.O. 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 Take 2 caps by mouth at 8am and 4 caps at 8pm Reorder 01/18/2017 documented as of this encounter Care Teams Desktop Publishing Operator Relationship Specialty Start Date End Date Gulshan Mena DO [facility] [place] [address] PCP - General 05/11/16 documented as of this encounter
--- OUTSIDE RECORDS SUMMARY | 2024-02-12 05:08 | XMS_ITS | Encounter Summary ---
Author Organization [facility] Medical Group Address [address] [place] [address] Care Team Providers Care Manuscripts Curator Name Role Phone Gulshan Mena DO Primary Care Provider [phone] Reason for Visit * Reason Onset Date Comments Med Refill 07/04/2017 vimpat Encounter Details Date Type Department Care Team (Late st Contact Info) Description 07/04/2017 Telephone [facility] [place] Neurology at [facility] [address] [place] [address] Jn Noble DO [address] [place] [address] Med Refill (vimpat) Social History Tobacco Use Types Packs/Day Years Used Date Smoking Tobacco: Never Alcohol Use Standard Drinks/Week Comments No 0 (1 standard drink = 0.6 oz pur e alcohol) Sex and Gender Information Value Date Recorded Sex Assigned at Not on file 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 Can we send refill to [facility]. documented in this encounter Plan of Treatment Not on file documented as of this encounter Visit Diagnoses Not on filedocumented in this encounter Discontinued Medications Medication Sig Discontinue Reason Start Date End Da te lacosamide (VIMPAT) 100 mg tablet Take 2 tablets (200 mg total) by mouth 2 (two) times a day. Reorder 08/29/2016 07/04/2017 documented as of this encounter Care Teams Manuscripts Curator Relationship Specialty Start Date End Date Gulshan Mena DO [address] [place] [address] PCP - General 05/11/16 documented as of this encounter
--- OUTSIDE RECORDS SUMMARY | 2024-02-12 05:08 | XMS_ITS | Encounter Summary ---
Author Organization [facility] Medical Group Address [address] [place] [address] Care Team Providers Care Senior Windows Administrator Name Role Phone Gulshan Mena DO Primary Care Provider [phone] Reason for Visit * Reason Onset Date Comments VNS update 02/22/2017 Encounter Details Date Type Department Care Team (Late st Contact Info) Description 02/22/2017 Telephone [facility] [place] [facility] [address] [place] [address] Jn Noble DO [address] [place] [address] VNS update Social History Tobacco Use Types Packs/Day Years Used Date Smoking Tobacco: Never Alcohol Use Standard Drinks/Week Comments No 0 (1 standard drink = 0.6 oz pur e alcohol) Sex and Gender Information Value Date Recorded Sex Assigned at Not on file 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 He scheduled with Dr Ingram at [facility]. PROCESSING SUPERVISOR documented in this encounter Plan of Treatment Not on file documented as of this encounter Visit Diagnoses Not on filedocumented in this encounter Care Teams Senior Windows Administrator Relationship Specialty Start Date End Date Gulshan Mena DO [address] [place] [address] PCP - General 05/11/16 documented as of this encounter
--- OUTSIDE RECORDS SUMMARY | 2024-02-12 05:08 | XMS_ITS | Encounter Summary ---
Author Organization [facility] Medical Group Address [address] [place] [address] Care Team Providers Care Technical Rep Name Role Phone Gulshan Mena DO Primary Care Provider Reason for Visit * Reason Comments Seizures Encounter Details Date Type Department Care Team (Late Contact Info) Description 03/20/2018 9:45 AM NURSE SCHOOL Office Visit [facility] [place] Neurology at [facility] [address] [place] [address] Jn Noble DO [address] [facility] [address] [place] [address] 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); Developmental delay Social History Tobacco Use Types Packs/Day Years Used Date Smoking Tobacco: Never Smokeless Tobacco: Never Alcohol Use Standard Drinks/Week Comments No 0 (1 standard drink = 0.6 oz pur e alcohol) Sex and Gender Information Value Date Recorded Sex Assigned at Not on file Legal Sex Male 12:55 PM 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 SCHOOL Gender Identity Not on file Sexual Orientation Not on file documented as of this encounter Last Filed Vital Signs Vital Sign Reading Time Taken Comments Blood Pressure 106/66 03/20/2018 9:57 AM NURSE SCHOOL Pulse 88 03/20/2018 9:57 AM NURSE SCHOOL Temperature - - Respiratory Rate - - Oxygen Saturation - - Inhaled Oxygen Concentration - - Weight 82.5 kg (181 lb 12.8 oz) 03/20/2018 9:57 AM NURSE SCHOOL Height 175.3 cm (5' 9.02 ) 03/20/2018 9:57 AM CS T Body Mass Index 26.83 03/20/2018 9:57 AM NURSE SCHOOL documented in this encounter Progress Notes * Zac Noble, - 03/20/2018 9:45 AM CST Patient ID: Travis Beebe is a 32 y.o. male This patient is sent from Gulshan Mena DO for treatment of his seizures. 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 The output current remains at 2.0, signal on time is decreased to 30 sec, signal off time is decreased to 1.1 min Battery status indicator is now accurate and is at 25%-50% Lead impedence is 2922 ohms Duty cycle is 35% Pt presents today with his academic computing director. Most seizures are occurring in the mornings or waking up fromnaps. Seizures are as follows: 11/2017 - 9, 12/29 - 6, 01/28 - 14. 1 seizure in January required diazepam. VNS has remarkably cut down on need to take diazepam. He is tolerating medications well. Sometimes he hits if asked to do something he doesn't want to do. Nail Technician Teacher reports no problems with the vagal nerve stimulator. He takes all his medications as prescribed. This patient has frequent nocturnal seizures, up to 12 per night, we believe this is an indication for the new vagal nerve stimulator device that monitors heart rate and initiates a stimulus. Reviewed lamotrigine level from 06/2017 which was normal at 7.1, lacosamide was 12.7, high end of normal, zonisamide was normal at 30 Current Outpatient Prescriptions: ??? acetaminophen (TYLENOL) 325 [...] 0 ??? cloBAZam (ONFI) tablet, Take 2 tablets (40 mg total) by mouth nightly., Disp: 60 tablet, Rfl: 5 ??? clonazePAM (KlonoPIN) 0.5 mg disintegrating tablet, Take 0.5 mg by mouth 2 (two) times a day., Disp: , Rfl: ??? cloNIDine (CATAPRES) 0.1 mg tablet, Take [...] by mouth 2 (two) times a day. Take 2 tablets by mouth BID, Disp: 120 tablet, Rfl: 4 ??? lamoTRIgine (LaMICtal) 150 mg tablet, Take [...] Refractory generalized nonconvulsive epilepsy (CMS/HCC) We will continue zonisamide 400 mg twice daily and continue the other seizure medications as prescribed. 2. 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 We will follow with Dr. Longo for the Sentiva VNS device. 3. Active autistic disorder He does follow only the simplest of commands Follow up again in three months, sooner if needed Zac Noble D.O. , Neurology & Neurophysiology Office: [employer] documented in this encounter Plan of Treatment Not on file documented as of this encounter Visit Diagnoses Diagnosis Refractory generalized nonconvulsive epilepsy (HCC)- Primary Developmental delay Unspecified delay in development documented in this encounter Historical Medications * This list may reflect changes made after this encounter. clonazePAM (KlonoPIN) 0.5 mg disintegrating tablet Take 0.5 mg by mouth 2 (two) times a day. 9 added in this encounter Care Teams Technical Rep Relationship Specialty Start Date End Date Gulshan Mena DO [address] [place] [address] PCP - General 05/11/16 documented as of this encounter
--- OUTSIDE RECORDS SUMMARY | 2024-02-12 05:08 | XMS_ITS | Encounter Summary ---
Author Organization [facility] Address [address] [place] [address] Care Team Providers Care Quality Assurance Project Manager Name Role Phone Gulshan Mena DO Primary Care Provider Encounter Details Date Type Department Care Team (Late st Contact Info) Description 08/19/2014 9:55 PM CDT - 08/19/2014 11:01 PM CDT [facility] [address] [place] [address] Convulsions (CMS/[facility]) Social History Tobacco Use Types Packs/Day Years Used Date Smoking Tobacco: Never Alcohol Use Standard Drinks/Week Comments No 0 (1 standard drink = 0.6 oz pur e alcohol) Sex and Gender Information Value Date Recorded Sex Assigned at Not on file 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 Gender Identity Not on file Sexual Orientation Not on file documented as of this encounter Last Filed Vital Signs Vital Sign Reading Time Taken Comments Blood Pressure - - Pulse - - Temperature - - Respiratory Rate - - Oxygen Saturation - - Inhaled Oxygen Concentration - - Weight 65.1 kg (143 lb 8.3 oz) 08/19/2014 10:13 PM CDT Height 175.3 cm (5' 9.02 ) 08/19/2014 10:13 PM C DT Body Mass Index 21.18 08/19/2014 10:13 PM CDT documented in this encounter Medications at Time of Discharge busPIRone (BUSPAR) 10 mg tablet take 1 tablet by oral route 3 times every day 270 3 07/16/2013 carbamide peroxide (DEBROX) 6.5 % otic solution 6.5 %. 0 drop 0 08/11/2012 ergocalciferol (VITAMIN D2) 50,000 unit capsule take 1 capsule by oral route every week 0 0 08/11/2012 multivitamin tablet tablet take 2 Tablet by Oral route every day 0 0 08/11/2012 cloBAZam (ONFI) tablet take 2 Tablet by oral route once at bedtime 60 5 05/12/2014 7 cloNIDine (CATAPRES) 0.1 mg tablet take 1 tablet by oral route every evening 0 0 07/16/2013 7 diazePAM (DIASTAT) 2.5 mg kit insert 10 milligram by rectal route every prn seizure 2 kit 1 05/12/2014 9 docusate sodium (COLACE) 100 mg capsule take 1 capsule by oral route every day at bedtime as needed 0 0 08/11/2012 7 lacosamide (VIMPAT) 100 mg tablet take 2 Tablet by Oral route 2 times every day 120 5 09/23/2013 7 lamoTRIgine (LaMICtal) 150 mg tablet take 2 tablet by oral route 3 times every day 0 0 03/24/2013 7 loratadine (CLARITIN) 10 mg tablet take 1 tablet by oral route every day 0 0 07/16/2013 2 propranolol LA (INDERAL LA) 160 mg 24 hr capsule take 1 capsule by oral route every bedtime 0 0 07/16/2013 3 zonisamide (ZONEGRAN) 100 mg capsule take 2 Capsule by oral route in the morning, and 4 Capsule by oral route every bedtime. 540 3 05/12/2014 7 documented as of this encounter Plan of Treatment Not on file documented as of this encounter Procedures Procedure Name Priority Date/Time Associated Diagnosis Comments PLASMA COMPREHENSIVE METABOLIC PANEL Routine 08/19/2014 5:20 PM CDT BLOOD CELL COUNT (CBC), MORPHOLOGIC EXAM Routine 08/19/2014 5:20 PM CDT DISCHARGE LABORATORY CUMULATIVE REPORT 08/19/2014 documented in this encounter Results * (ABNORMAL) Plasma comprehensive metabolic panel (08/19/2014 5:20 PM CDT) eGFR >60 ml/min/1.7 3 m2 HISTORICAL RESULTS Comment: GFR Reference Range: = > 60 mL/min/1.73 m2 This result has been calculated assuming the patient is Non-. ??If the patient is , please multiply this result by 1.21. Sodium 137 136 - 145 mmol/L HISTORICAL RESULTS K, pl 3.5 3.5 - 5.1 mmol/L HISTORICAL RESULTS Chloride 105 98 - 107 mmol/L HISTORICAL RESULTS CO2 23 22 - 29 mmol/L HISTORICAL RESULTS A. gap 9 5 - 15 mmol/L HISTORICAL RESULTS Glucose 126(H) 65 - 99 mg/dl HISTORICAL RESULTS Comment: If specimen is from a non-fasting patient, Reference Range is 70 - 99 mg/dL. BUN 19(H) 7 - 18 mg/dl HISTORICAL RESULTS Creatinine 1.1 0.7 - 1.2 mg/dl HISTORICAL RESULTS Calcium 9.1 8.6 - 10.2 mg/dl HISTORICAL RESULTS Alb 4.3 3.5 - 5.2 g/dl HISTORICAL RESULTS Alk phos 132(H) 40 - 129 Units/L HISTORICAL RESULTS ALT 81(H) 5 - 40 Units/L HISTORICAL RESULTS AST 35 5 - 39 Units/L HISTORICAL RESULTS Bilirubin 0.4 0.1 - 1.0 mg/dl HISTORICAL RESULTS Protein, pl 7.3 6.6 - 8.7 g/dl HISTORICAL RESULTS Plasma 08/19/2014 5:20 PM CDT Narrative HISTORICAL RESULTS - 08/19/2014 5:50 PM CDT Special Instructions: us Miguel Rae MD LAB BLOOD ORDERABLES Final Result HISTORICAL RESULTS * (ABNORMAL) Blood cell count (CBC), morphologic exam (08/19/2014 5:20 PM CDT) WBC 6.1 3.8 - 9.8 K/cumm HISTORICAL RESULTS RBC 4.18(L) 4.50 - 5.70 M/cumm HISTORICAL RESULTS Hgb 13.6(L) 13.8 - 17.2 g/dl HISTORICAL RESULTS Hct 38.0(L) 40.7 - 50.3 % HISTORICAL RESULTS MCV 90.9 80.0 - 100.0 fl HISTORICAL RESULTS MCH 32.5 26.7 - 33.7 pg HISTORICAL RESULTS MCHC 35.8 32.7 - 36.0 g/dl HISTORICAL RESULTS RDW 40.3 38.0 - 56.6 fl HISTORICAL RESULTS Rdw 12.2 11.5 - 14.6 % HISTORICAL RESULTS Platelets 170 140 - 440 K/cumm HISTORICAL RESULTS MPV 9.4 8.0 - 12.0 fl HISTORICAL RESULTS Neutrophils 55.8 42.0 - 75.0 % HISTORICAL RESULTS Immature granulocytes 0.2 0.0 - 0.6 % HISTORICAL RESULTS Comment: Please note new methodology and reference ranges due to new instrumentation Lymphocytes 32.6 16.7 - 46.3 % HISTORICAL RESULTS Monos 7.9 0.0 - 10.0 % HISTORICAL RESULTS Eosinophils 3.0 0.0 - 6.8 % HISTORICAL RESULTS Basophils 0.5 0.0 - 1.5 % HISTORICAL RESULTS NRBC 0.0 0.0 - 0.0 % HISTORICAL RESULTS Neutrophils, abs 3.4 1.4 - 7.4 K/cumm HISTORICAL RESULTS Immature granulocyte, abs 0.0 0.0 - 0.1 K/cumm HISTORICAL RESULTS Lymphocytes, abs 2.0 0.6 - 3.4 K/cumm HISTORICAL RESULTS Monocytes, absolute 0.5 0.0 - 0.9 K/cumm HISTORICAL RESULTS Eosinophils, abs 0.2 0.0 - 0.6 K/cumm HISTORICAL RESULTS Basophils, abs 0.0 0.0 - 0.5 K/cumm HISTORICAL RESULTS NRBC, abs 0. 0 - 0 K/cumm HISTORICAL RESULTS Blood specimen (specimen) 08/19/2014 5:20 PM CDT Narrative HISTORICAL RESULTS - 08/19/2014 5:32 PM CDT Special Instructions: Miguel Rae MD LAB BLOOD ORDERABLES Final Result HISTORICAL RESULTS * DISCHARGE LABORATORY CUMULATIVE REPORT (08/19/2014) Narrative 08/19/2014 Ordered by an unspecified provider. us Historical Provider LAB BLOOD ORDERABLES Marissa l Result documented in this encounter Visit Diagnoses Diagnosis Convulsions (HCC) Other convulsions documented in this encounter Care Teams Quality Assurance Project Manager Relationship Specialty Start Date End Date Gulshan Mena DO [address] [place] [address] PCP - General 05/12/14 05/10/16 documented as of this encounter
--- OUTSIDE RECORDS SUMMARY | 2024-02-12 05:08 | XMS_ITS | Encounter Summary ---
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) Procedures VNS Analysis - Jn Bishop DO Phone: tel: fax: Referral ID Status Reason Start Date Expiration Date Visits Re quested Visits Authorized [id number] Closed 08/02/2016 01/29/2017 1 1 Reason for Visit * Reason Comments Seizures VNS Autism Other [place]-G[place] syndr ome Encounter Details Date Type Department Care Team (Late st Contact Info) Description 08/02/2016 1:30 PM CDT Office Visit [facility] [address] [place] [address] Jn Bishop DO [address] [place] [address] 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); 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); Active autistic disorder Social History Tobacco Use Types Packs/Day Years Used Date Smoking Tobacco: Never Alcohol Use Standard Drinks/Week Comments No 0 (1 standard drink = 0.6 oz pur e alcohol) Sex and Gender Information Value Date Recorded Sex Assigned at Not on file 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 Gender Identity Not on file Sexual Orientation Not on file documented as of this encounter Last Filed Vital Signs Vital Sign Reading Time Taken Comments Blood Pressure 104/62 08/02/2016 1:55 PM CDT Pulse 72 08/02/2016 1:55 PM CDT Temperature - - Respiratory Rate 16 08/02/2016 1:55 PM CDT Oxygen Saturation - - Inhaled Oxygen Concentration - - Weight 77.1 kg (170 lb) 08/02/2016 1:55 PM CDT Height 175.3 cm (5' 9 ) 08/02/2016 1:55 PM CDT Body Mass Index 25.1 08/02/2016 1:55 PM CDT documented in this encounter Ordered Prescriptions Prescription Sig Dispense Quantity Refills Last Filled Start Date End Date lamoTRIgine (LaMICtal) 150 mg tablet Take 2 tablets (300 mg total) by mouth 2 (two) times a day. 120 tablet 11 08/02/2016 7 zonisamide (ZONEGRAN) 100 mg capsule Take 3 capsules (300 mg total) by mouth 2 (two) times a day. 180 capsule 08/02/2016 7 lacosamide (VIMPAT) 100 mg tablet Take 1 tablet (100 mg total) by mouth 2 (two) times a day. 60 tablet 5 08/02/2016 7 cloBAZam (ONFI) tablet Take 2 tablet by mouth daily at bedtime 60 tablet 5 08/02/2016 8 documented in this encounter Progress Notes * Zac Bishop DO - 08/02/2016 1:30 PM CDT Patient ID: Travis Beebe is a 31 y.o. male This patient is sent from Gulshan Mena DO for treatment of his seizures HPI: HPI Patient been doing pretty well with the seizures. He has had 13 over the past month which is good for Travis. No Diastat has been utilized. He takes his medications as prescribed. He has been more active in the community, going to the zoo. He is happy for the most part. We interrogated and investigated the vagal nerve stimulator device and made adjustments as well as made note of patient's response Reviewed lamotrigine level from 01/2016 which was normal at 8.6, lacosamide was 7.6, zonisamide wasnormal at 20 I have reviewed: allergies, current medications, past family history, past medical history, past social history, past surgical history and problem list Current Outpatient Prescriptions: ??? busPIRone (BUSPAR) 10 mg tablet, take 1 tablet by oral route 3 times every day, Disp: 270, Rfl:3 ??? carbamide peroxide (DEBROX) 6.5 % otic solution, 6.5 %., Disp: 0 drop, Rfl: 0 ??? cloBAZam (ONFI) tablet, Take 2 tablet by mouth daily at bedtime, Disp: 60 tablet, Rfl: 5 ??? cloNIDine (CATAPRES) 0.1 mg tablet, take 1 tablet by oral route every evening (Patient taking differently: 0.3 mg. ), Disp: 0, Rfl: 0 ??? docusate sodium (COLACE) 100 mg capsule, take 1 capsule by oral route every day at bedtime as needed, Disp: 0, Rfl: 0 ??? ergocalciferol (VITAMIN D2) 50,000 unit capsule, take 1 capsule by oral route every week, Disp:0, Rfl: 0 ??? lacosamide (VIMPAT) 100 mg tablet, take 2 Tablet by Oral route 2 times every day, Disp: 120, Rfl: 5 ??? lamoTRIgine (LaMICtal) 150 mg tablet, take 2 tablet by oral route 3 times every day, Disp: 0, Rfl: 0 ??? loratadine (CLARITIN) 10 mg tablet, take 1 tablet by oral route every day, Disp: 0, Rfl: 0 ??? magnesium hydroxide (CONCENTRATED MILK of MAGNESIA) 240 mg/ mL suspension, Take 30 mL by mouth every other day., Disp: , Rfl: ??? multivitamin tablet tablet, take 2 Tablet by Oral route every day, Disp: 0, Rfl: 0 ??? propranolol LA (INDERAL LA) 160 mg 24 hr capsule, take 1 capsule by oral route every bedtime, Disp: 0, Rfl: 0 ??? zonisamide (ZONEGRAN) 100 mg capsule, take 2 Capsule by oral route in the morning, and 4 Capsule by oral route every bedtime., Disp: 540, Rfl: 3 ??? diazePAM (DIASTAT) 2.5 mg kit, insert 10 milligram by rectal route every prn seizure, Disp: 2 kit, Rfl: 1 ??? raNITIdine (ZANTAC) 150 mg tablet, Take 150 mg by mouth., Disp: , Rfl: Review of Systems Much [...] and well-nourished. Vitals reviewed. Head: Normocephalic and atraumatic. Neck: Normal range of motion. Neck supple. Cardiovascular: Normal rate and regular rhythm. Pulmonary/Chest: Effort normal. No respiratory distress. Abdominal: Soft. There is no rebound. Musculoskeletal: Normal range of motion. Lymphadenopathy: The patient has no cervical adenopathy. Skin: Skin is warm and dry. Neurological exam: Mental Status: Alert and disoriented times three, speech is mumbly and insight is poor [...] Refractory generalized nonconvulsive epilepsy (CMS/HCC) We will stay the course with his current seizure medications. 2. 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 Active autistic disorder He does follow only the simplest of commands Zac Bishop D.O. 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) VNS Analysis Date/Time: 08/02/2016 2:28 PM Performed by: Zac BISHOP Authorized by: Zac BISHOP Local anesthesia used: no Anesthesia: Local anesthesia used: no Sedation: Patient sedated: no Patient tolerance: Patient tolerated the procedure well with no immediate complications Comments: We adjusted the vagal nerve stimulator device as follows, signal frequency is increased from 25 hertz to 30 hertz, output current is good, average number seizures per day is improved to oneevery two days and his mood has improved and impact on quality of life has improved documented in this encounter Plan of Treatment Not on file documented as of this encounter Procedures Procedure Name Priority Date/Time Associated Diagnosis Comments VNS ANALYSIS Routine 08/02/2016 2:30 PM CDT 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 08/02/2016 ??2:30 PM VNS Analysis Date/Time: 08/02/2016 2:28 PM Performed by: Zac BISHOP Authorized by: Zac BISHOP Local anesthesia used: no Anesthesia: Local anesthesia used: no Sedation: Patient sedated: no Patient tolerance: Patient tolerated the procedure well with no immediate complications Comments: We adjusted the vagal nerve stimulator device as follows, signal frequency is increased from 25 hertz to 30 hertz, output current is good, average number seizures per day is improved to one every two days and his mood has improved and impact on quality of life has improved F Driss Bishop DO NEUROLOGY ORDERABLES Final Res ult documented in this encounter Visit Diagnoses Diagnosis Refractory generalized nonconvulsive epilepsy (HCC)- Primary 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 Reorder 05/12/2014 08/02/2016 lamoTRIgine (LaMICtal) 150 mg tablet take 2 tablet by oral route 3 times every day Reorder 03/24/2013 08/02/2016 documented as of this encounter Historical Medications * This list may reflect changes made after this encounter. magnesium hydroxide (CONCENTRATED MILK of MAGNESIA) 240 mg/ mL suspension Take 30 mL by mouth every other day raNITIdine (ZANTAC) 150 mg tablet Take 150 mg by mouth 2 (two) times a day. 04/04/2021 added in this encounter Care Teams Silvering Applicator Relationship Specialty Start Date End Date Gulshan Mena DO [facility] [address] [place] [address] PCP - General 05/11/16 documented as of this encounter
--- OUTSIDE RECORDS SUMMARY | 2024-02-12 05:08 | XMS_ITS | Encounter Summary ---
Author Organization [facility] Healthcare Address [address] [place] [address] Care Team Providers Care Curb Attendant Name Role Phone Unavailable Primary Care Provider Unavailabl e Encounter Details Date Type Department Care Team (Late st Contact Info) Description 01/20/2011 11:22 AM AMBULATORY SERVICE REPRESENTATIVE - 01/20/2011 1:41 PM AMBULATORY SERVICE REPRESENTATIVE Hospital Encounter [facility] Miguel Rae MD [address] [place] [address] Convulsions (HCC) Social History Tobacco Use Types Packs/Day Years Used Date Smoking Tobacco: Never Assessed Sex and Gender Information Value Date Recorded Sex Assigned at Not on file 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
--- OUTSIDE RECORDS SUMMARY | 2024-02-12 05:08 | XMS_ITS | Encounter Summary ---
Author Organization [facility] Address [address] [place] [address] Care Team Providers Care Student Success Counselor Name Role Phone Gulshan Mena DO Primary Care Provider Reason for Visit * Reason Comments Refractory generalized nonconvulsive epi lepsy Encounter Details Date Type Department Care Team (Late st Contact Info) Description 07/23/2018 10:00 AM CDT Office Visit [facility] [address] [place] [address] Jn Noble DO [address] [facility] [address] [address] [address] [place] [address] Intractable [place]-Gastaut syndrome without status epilepticus (CMS/HCC) (Primary Dx); Developmental delay Social History Tobacco Use Types Packs/Day Years Used Date Smoking Tobacco: Never Smokeless Tobacco: Never Alcohol Use Standard Drinks/Week Comments No 0 (1 standard drink = 0.6 oz pur e alcohol) Sex and Gender Information Value Date Recorded Sex Assigned at Not on file 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 Gender Identity Not on file Sexual Orientation Not on file documented as of this encounter Last Filed Vital Signs Vital Sign Reading Time Taken Comments Blood Pressure 114/66 07/23/2018 10:05 AM CDT Pulse - - Temperature - - Respiratory Rate 16 07/23/2018 10:05 AM CDT Oxygen Saturation - - Inhaled Oxygen Concentration - - Weight 79.4 kg (175 lb) 07/23/2018 10:05 AM CDT Height 175.3 cm (5' 9.02 ) 07/23/2018 10:05 AM C DT Body Mass Index 25.83 07/23/2018 10:05 AM CDT documented in this encounter Progress Notes * Zac Noble DO - 07/23/2018 10:00 AM CDT NEUROLOGY FOLLOW-UP NOTE Patient ID: Travis Beebe is a 33 y.o. male This patient is sent from Gulshan Mena DO for treatment of his seizures. History of present illness: Interrogated his new vagal nerve stimulator device today. The output current remains at 2.0, auto stim output is 2.5 milliamps as is the magnet. signal on time is decreased to 30 sec, signal off time is decreased to 1.1 min, pulse width is 500 micro secondsand magnet stimulation time is 60 seconds Lead impedence is 3141 ohms Battery status is 75-100% Duty cycle is 35% Pt presents today with his meter attendant. Most seizures are occurring in the mornings or waking up fromnaps. The new VNS has remarkably cut down on need to take diazepam. He is tolerating medications well. Sometimes he hits if asked to do something he doesn't want to do. Anode Crew Supervisor reports no problems with the vagal nerve stimulator. He takes all his medications as prescribed. This patient has last had a seizure on the 8th of this month, frequency is now at 3-4 per month. Reviewed lamotrigine level from 06/2017 which was normal at 7.1, lacosamide was 12.7, high end of normal, zonisamide was normal at 30 Current Outpatient Medications: ??? acetaminophen (TYLENOL) 325 [...] 5 ??? clonazePAM (KlonoPIN) 0.5 mg tablet, TAKE (1) TABLET BY MOUTH TWICE A DAY., Disp: 60 tablet, Rfl: 0 ??? cloNIDine (CATAPRES) 0.1 mg tablet, Take [...] nostril as needed., Disp: , Rfl: ??? VIMPAT 100 mg tablet, TAKE 2 TABLETS BY MOUTH 2 TIMES A DAY., Disp: 120 tablet, Rfl: 5 ??? zonisamide (ZONEGRAN) 100 mg capsule, Take [...] (CMS/HCC) We will check antiepileptic drug levels now. The new vagal nerve stimulator device has improved his seizure frequency dramatically. 2. 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 3. Active autistic disorder He does follow only the simplest of commands Follow up again in six months, sooner if needed Zac Noble D.O. 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 07/23/2018 cloBAZam 20 mg film Take 40 mg by mouth daily 07/23/2018 documented as of this encounter Care Teams Student Success Counselor Relationship Specialty Start Date End Date Gulshan Mena DO [address] [place] [address] PCP - General 05/11/16 documented as of this encounter
--- OUTSIDE RECORDS SUMMARY | 2024-02-12 05:08 | XMS_ITS | Encounter Summary ---
Author Organization [facility] Healthcare Address [address] [place] [address] Care Team Providers Care Rn Occupational Name Role Phone Gulshan Mena DO Primary Care Provider Encounter Details Date Type Department Care Team (Late st Contact Info) Description 12/31/2013 9:57 AM BIOMEDICAL ELECTRONICS TECHNICIAN - 12/31/2013 11:59 PM BIOMEDICAL ELECTRONICS TECHNICIAN Hospital Encounter [facility] Gulshan Mena DO [address] [facility] [place] [address] Epilepsy (HCC); Weight loss; Constipation; Other postprocedural states Social History Tobacco Use Types Packs/Day Years Used Date Smoking Tobacco: Never Alcohol Use Standard Drinks/Week Comments No 0 (1 standard drink = 0.6 oz pur e alcohol) Sex and Gender Information Value Date Recorded Sex Assigned at Not on file Legal Sex Male 12:55 PM BIOMEDICAL ELECTRONICS TECHNICIAN Gender Identity Not on file Sexual Orientation Not on file documented as of this encounter Last Filed Vital Signs Vital Sign Reading Time Taken Comments Blood Pressure - - Pulse - - Temperature - - Respiratory Rate - - Oxygen Saturation - - Inhaled Oxygen Concentration - - Weight 65.1 kg (143 lb 8.3 oz) 12/31/2013 9:03 A M BIOMEDICAL ELECTRONICS TECHNICIAN Height 175.3 cm (5' 9.02 ) 12/31/2013 9:03 AM CS T Body Mass Index 21.18 12/31/2013 9:03 AM BIOMEDICAL ELECTRONICS TECHNICIAN documented in this encounter Medications at Time [...] Oral route every day 0 0 08/11/2012 cloNIDine (CATAPRES) 0.1 mg tablet take 1 tablet by oral route every evening 0 0 07/16/2013 12/13/2016 docusate sodium (COLACE) 100 mg capsule take 1 capsule by oral route every day at bedtime as needed 0 0 08/11/2012 12/13/2016 lacosamide (VIMPAT) 100 mg tablet take 2 Tablet by Oral route 2 times every day 120 5 09/23/2013 08/02/2016 lamoTRIgine (LaMICtal) 150 mg tablet take 2 tablet by oral route 3 times every day 0 0 03/24/2013 08/02/2016 loratadine (CLARITIN) 10 mg tablet take 1 tablet by oral route every day 0 0 07/16/2013 09/28/2021 propranolol LA (INDERAL LA) 160 mg 24 hr capsule take 1 capsule by oral route every bedtime 0 0 07/16/2013 04/04/2022 documented as of this encounter Plan of Treatment Not on file documented as of this encounter Procedures Procedure Name Priority Date/Time Associated Diagnosis Comments PHARYNGEAL RADIOGRAPHY WITH BARIUM CONTRAST, MODIFIED Routine 01/01/2014 12:00 AM BIOMEDICAL ELECTRONICS TECHNICIAN FL ESOPHAGRAM, SINGLE CONTRAST Routine 12/31/2013 10:44 AM BIOMEDICAL ELECTRONICS TECHNICIAN documented in this encounter Results * PHARYNGEAL RADIOGRAPHY WITH BARIUM CONTRAST, MODIFIED (01/01/2014 12:00 AM BIOMEDICAL ELECTRONICS TECHNICIAN) Anatomical Region Laterality Modality N/A Radiographic Vanessa ging 01/01/2014 Narrative 01/01/2014 5:16 PM BIOMEDICAL ELECTRONICS TECHNICIAN ?Account: ??[id number] : ? 1985 ?Admit Date: ? 12/31/2013 ? Proc. Date: ? 01/01/2014 Patient: ??TRAVIS RYDER Attending: ? GULSHAN MENA D.O. Room No: Patient Type: ANC Dictating: ? ERINN GARCIA, MS [facility] YARDER OPERATOR ?MODIFIED BARIUM SWALLOW STUDY PROCEDURE PERFORMED: ??MODIFIED BARIUM SWALLOW SPEECH/LANGUAGE PATHOLOGIST: ??ERINN GARCIA MS [facility]-GRAPPLE YARDER OPERATOR RADIOLOGIST: ??DR. KATARINA ONEAL INDICATION: ??The patient presents with a history of infantile autism and chronic epilepsy. A vagus nerve stimulator has recently been placed. ??The patient exhibits decreased willingness to eat in recent weeks and has lost weight. EVALUATION: ??The patient exhibits unwillingness to participate in the exam. One trial of puree was administered successfully. ??The oral and pharyngeal stages of the swallow appeared to be intact with no weakness or signs or symptoms of aspiration. IMPRESSION: ??One trial of puree is within normal limits. RECOMMENDATIONS: ??Encourage increased PO to maintain appropriate nutrition and hydration needs. Thank you, Dr. Mena, for the referral for the modified barium swallow. ERINN GARCIA MS CCC-GRAPPLE YARDER OPERATOR / Job #: ??[id number] DD: ??01/01/2014 16:53 TD: ??01/01/2014 17:16 CC: GULSHAN MENA MD Authenticated and Edited by Erinn Garcia, [facility] YARDER OPERATOR On 01/04/14 5:22:54 PM Procedure Note Provider, MD [place] - 06/12/2016 Account: [id number] : 1985 Admit Date: 12/31/2013 Proc. Date: 01/01/2014 Patient: TRAVIS RYDER Attending: GULSHAN MENA D.O. Room No: Patient Type: ANC Dictating: ERINN GARCIA, MS CCC-GRAPPLE YARDER OPERATOR MODIFIED BARIUM SWALLOW STUDY PROCEDURE PERFORMED: MODIFIED BARIUM SWALLOW SPEECH/LANGUAGE PATHOLOGIST: ERINN GARCIA, MS CCC-GRAPPLE YARDER OPERATOR RADIOLOGIST: DR. KATARINA ONEAL INDICATION: The patient presents with a history of infantile autism and chronic epilepsy. A vagus nerve stimulator has recently been placed.The patient exhibits decreased willingness to eat in recent weeks and haslost weight. EVALUATION: The patient exhibits unwillingness to participate in theexam. One trial of puree was administered successfully. The oral and pharyngealstages of the swallow appeared to be intact with no weakness or signs or symptomsof aspiration. IMPRESSION: One trial of puree is within normal limits. RECOMMENDATIONS: Encourage increased PO to maintain appropriate nutritionand hydration needs. Thank you, Dr. Mena, for the referral for the modified barium swallow. ERINN GARCIA, MS CCC-GRAPPLE YARDER OPERATOR /sl TD: 01/01/2014 17:16 CC: GULSHAN MENA MD Authenticated and Edited by Erinn Garcia, MSCCC-GRAPPLE YARDER OPERATOR On 01/04/14 5:22:54PM us Historical Provider MD PIPER FLUOROSCOPY PROCEDURE S Final Result * XR ESOPHAGRAM BARIUM SWALLOW (12/31/2013 10:44 AM BIOMEDICAL ELECTRONICS TECHNICIAN) Anatomical Region Laterality Modality Body N/A Radiographic Vanessa ging 12/31/2013 10:4 4 AM BIOMEDICAL ELECTRONICS TECHNICIAN Narrative 12/31/2013 10:54 AM BIOMEDICAL ELECTRONICS TECHNICIAN EXAMINATION: Modified Barium Swallow DATE: ??Dec 31, 2013 10:44:00 AM HISTORY: 28-year-old male with chronic epilepsy status post recent vagal nerve stimulator placement, presenting with significant weight loss and refusal to eat. ?? TECHNIQUE: ??In conjunction with the speech pathology service, the patient was given barium of multiple different consistencies to swallow. ??Video fluoroscopy was employed during the exam. FINDINGS: The distal aspect of vagal nerve stimulator wire leads are identified in the neck soft tissues. ??Due to inability of the patient to fully cooperate, only one identifiable swallow was recorded. This demonstrated normal oral stage of swallowing, with the swallow response is initiated at the level of the vallecula. ??No significant base of tongue weakness, vallecular residue, or reduction in pharyngeal strength. There was no laryngeal penetration or aspiration seen during this single swallow. ?? IMPRESSION: 1. Suboptimal examination (secondary to inability of the patient to fully cooperate) demonstrates no significant oropharyngeal swallowing dysfunction. 2. No evidence of penetration/aspiration during the single recorded swallow. ?? 3. Please see separate Speech Pathology report for further details and recommendations. Radiologist: KATARINA ONEAL M.D. RADIOLOGIST ?? Attending: ??GULSHAN MENA DO Requesting: GULSHAN MENA DO Requesting Fax: ?? Requesting ID: [id number] Attending Fax: ?? Attending ID: ?? [id number] Completed Time: ?? 12/31/2013 10:44 AM Dictated Time: ?N/A Transcribed Time: 12/31/2013 10:54 AM Signed by: ?KATARINA ONEAL M.D. ??RADIOLOGIST on 12/31/2013 10:54 AM Report To 1 ID: Report To 1 Name: , Report To 1 FAX: Report To 2 ID: Report To 2 Name: , Report To 2 FAX: Report To 3 ID: Report To 3 Name: , Report To 3 FAX: NextGen Order #: Procedure Note Provider, MD [place] - 06/02/2016 EXAMINATION: Modified Barium Swallow DATE: Dec 31, 2013 10:44:00 AM HISTORY: 28-year-old male with chronic epilepsy status post recent vagal nerve stimulator placement, presenting with significant weight loss and refusal to eat. TECHNIQUE: In conjunction with the speech pathology service, the patient was given barium of multiple different consistencies to swallow. Video fluoroscopy was employed during the exam. FINDINGS: The distal aspect of vagal nerve stimulator wire leads are identified in the neck soft tissues. Due to inability of the patient to fully cooperate, only one identifiable swallow was recorded. This demonstrated normal oral stage of swallowing, with the swallow response is initiated at the level of the vallecula. No significant base of tongue weakness, vallecular residue, or reduction in pharyngeal strength. There was no laryngeal penetration or aspiration seen during this single swallow. IMPRESSION: 1. Suboptimal examination (secondary to inability of the patient to fully cooperate) demonstrates no significant oropharyngeal swallowing dysfunction. 2. No evidence of penetration/aspiration during the single recorded swallow. 3. Please see separate Speech Pathology report for further details and recommendations. Radiologist: KATARINA ONEAL M.D. RADIOLOGIST Attending: GULSHAN MENA DO Requesting: GULSHAN MENA DO Requesting Requesting ID: [id number] Attending Attending ID: [id number] Completed Time: 12/31/2013 10:44 AM Dictated Time: N/A Transcribed Time: 12/31/2013 10:54 AM Signed by: KATARINA ONEAL M.D. RADIOLOGIST on 12/31/2013 10:54AM Report To 1 ID: Report To 1 Name: , Report To 1 FAX: Report To 2 ID: Report To 2 Name: , Report To 2 FAX: Report To 3 ID: Report To 3 Name: , Report To 3 FAX: NextGen Order #: us Historical Provider MD PIPER FLUOROSCOPY PROCEDURE S Final Result documented in this encounter Visit Diagnoses Diagnosis Epilepsy (HCC) Unspecified epilepsy without mention of intractable epilepsy Weight loss Loss of weight Constipation Unspecified constipation Other postprocedural states documented in this encounter Care Teams Rn Occupational Relationship Specialty Start Date End Date Gulshan Mena DO [facility] [place] [place] [address] PCP - General 11/04/13 05/11/14 documented as of this encounter
--- OUTSIDE RECORDS SUMMARY | 2024-02-12 05:08 | XMS_ITS | Encounter Summary ---
Author Organization [facility] Address [address] [place] [address] Phone Care Team Providers Care Compound Machine Operator Name Role Phone Gulshan Mena DO Primary Care Provider Reason for Visit * Reason Comments Skin Exam Encounter Details Date Type Department Care Team (Late st Contact Info) Description 06/17/2018 10:15 AM CDT Office Visit [facility] [address] [place] [address] Dereck Santiago MD [address] [place] [address] [address] Seborrheic dermatitis (Primary Dx) Social History Tobacco Use Types Packs/Day Years Used Date Smoking Tobacco: Never Smokeless Tobacco: Never Alcohol Use Standard Drinks/Week Comments No 0 (1 standard drink = 0.6 oz pur e alcohol) Sex and Gender Information Value Date Recorded Sex Assigned at Not on file Legal Sex Male 12:55 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 male patient here for a full skin check. Pt was previously treated for seborrheic dermatitis and symptoms are resolved currently with tx. He is using Head and Shoulders shampoo with good control. Caregiver notes that when he has seizures, he scratches his arms and still has some scratches present, healing. *Pt here with a social work program coordinator and a complex care nurse present [facility]. Pt has hx of MR with severe developmental delay, seizure disorder, ADHD, Autism, and Anxiety disorder He also had VNS placement for his seizure disorder History of non-melanoma skin cancer: no History of Melanoma: no Sunscreen Use: no Family History of Melanoma: no History of Tanning bed use: no History of Blistering Sunburn: no Visit Patient Questionnaire Reviewed: 06/17/2018 Relevant changes documented ROS Fever: not present Unintentional weight loss: not present Fatigue: not present Headache: not present Vision Problems: not present Difficulty Breathing: not present Chest Pain: not present Cough: not present Sore Throat: not present Abdominal Pain: not present Nausea/Diarrhea: not present Burning sensation when urinating: not present Joint Pain, Localized: not present. PHYSICAL EXAM GENERAL: Pt. sitting in chair with helmet on, rocking occasionally. He is somewhat responsive with moving for exam but not verbal. FACE: No cutaneous abnormalities EYES: No icterus, No Scleral Injection, No Conjunctival erythema EYELIDS:No cutaneous abnormalities LIPS:No cutaneous abnormalities EARS:No cutaneous abnormalities SCALP: Healing scratches on dorsal forearms HAIR: No abnormalities. Normal consistency. No alopecia NECK: No cutaneous abnormalities CHEST: No cutaneous abnormalities BACK: No cutaneous abnormalities ABDOMEN: No cutaneous abnormalities Right Upper Extremity: Healing scratches on dorsal forearms - no evidence of secondary infection Left Upper Extremity: Healing scratches on dorsal forearms Right Lower Extremity: No cutaneous abnormalities Left Lower Extremity:No cutaneous abnormalities DIGITS/NAILS: No pitting, no onychodystrophy, no erythema. A complete skin examination was not done. The patient's caregivers declined to have evaluation under their shorts. They assisted in lifting his shirt up for eval. They are aware if the risks of missed lesions. LYMPH: No head/neck lymphadenopathy including negative lymph node exam of anterior & posterior cervical chain, submental & submandibular nodes ASSESSMENT / PLAN Seborrheic Dermatitis - resolved/well controlled -Continue OTC Head and Shoulders Discussed chronic intermittent nature of seborrheic dermatitis and that it is not infectious or contagious. Reviewed symptomatic treatment options. Use medicated shampoo: nizoral or selsun. Apply for10 minutes dry then lather, shampoo, and rinse off. Treat daily for one week and then twice weekly as needed to control symptoms. Follow up promptly if worsening or as needed. Healing excoriations on dorsal forearms No evidence of infection Discussed using vaseline petroleum jelly or aquaphor on arms to help them heal and keeping nails cut short to help him not get scratches with seizures. Return visit can be made as needed if scalp symptoms return/prn All patient questions were answered in detail. Additional comments and concerns were solicited by the provider. The patient and complex care nurse indicated satisfaction with their care. They were instructedto immediately report back to the clinic or contact me directly with any new, changing and/or worsening lesions or systemic symptoms, side effects of treatment, or as needed. The patient was advised on monthly self-skin exams, daily sun protection/avoidance, Vitamin D, and routine follow up dermatology skin exams. Scribe statement: Evita Foster scribe, am personally taking down the notes in the presence of Dr. Santiago. documented in this encounter Plan of Treatment Not on file documented as of this encounter Visit Diagnoses Diagnosis Seborrheic dermatitis- Primary Unspecified seborrheic dermatitis documented in this encounter Historical Medications * This list may reflect changes made after this encounter. magnesium hydroxide (TORRES CHEWS) 311 mg tablet,chewable chewable tablet Take 30 mL by mouth 04/04/2021 cloBAZam 20 mg film Take 40 mg by mouth daily 07/23/2018 added in this encounter Care Teams Compound Machine Operator Relationship Specialty Start Date End Date Gulshan Mena DO [address] [place] [address] PCP - General 05/11/16 documented as of this encounter
--- OUTSIDE RECORDS SUMMARY | 2024-02-12 05:08 | XMS_ITS | Encounter Summary ---
Author Organization [facility] Healthcare Address [address] [place] [address] Care Team Providers Care Finish Remover Name Role Phone Unavailable Primary Care Provider Unavailabl e Encounter Details Date Type Department Care Team (Latest Contact Info) Description 07/22/2010 1:32 PM CDT - 07/22/2010 4:45 PM T [facility] [address] [place] [address] Observation following accident; Epilepsy (HCC); Mental retardation; Fall resulting in striking against other object; Unspecified place of occurrence Social History Tobacco Use Types Packs/Day Years Used Date Smoking Tobacco: Never Assessed Sex and Gender Information Value Date Recorded Sex Assigned at Not on file Legal Sex Male 12:55 PM 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
--- OUTSIDE RECORDS SUMMARY | 2024-02-12 05:08 | XMS_ITS | Encounter Summary ---
Author Organization [facility] Healthcare Address [address] [place] [address] Care Team Providers Care Investment Advisor Name Role Phone Unavailable Primary Care Provider Unavailabl e Encounter Details Date Type Department Care Team (Late st Contact Info) Description 12/30/2010 11:13 AM FLEET MANAGER/DISPATCH - 12/30/2010 2:38 PM FLEET MANAGER/DISPATCH Hospital Encounter [facility] Timmy Arthur MD [address] [place] [address] Convulsions (HCC); Fever due to unspecified condition; Mental retardation Social History Tobacco Use Types Packs/Day Years Used Date Smoking Tobacco: Never Assessed Sex and Gender Information Value Date Recorded Sex Assigned at Not on file Legal Sex Male 12:55 PM FLEET MANAGER/DISPATCH Gender Identity Not on file Sexual Orientation Not on file documented as of this encounter Plan of Treatment Not on file documented as of this encounter Visit Diagnoses Diagnosis Convulsions (HCC) Other convulsions Fever due to unspecified condition Mental retardation Unspecified mental retardation documented in this encounter
--- OUTSIDE RECORDS SUMMARY | 2024-02-12 05:08 | XMS_ITS | Encounter Summary ---
Author Organization [facility] Address [address] [place] [address] Care Team Providers Care Business School Dean Name Role Phone Gulshan Mena DO Primary Care Provider Reason for Visit * Reason Onset Date Comments medication question 08/28/2016 Vimpat Encounter Details Date Type Department Care Team (Late st Contact Info) Description 08/28/2016 Telephone [facility] [address] [place] [address] Jn Noble DO [address] [place] [address] medication question (Vimpat) Social History Tobacco Use Types Packs/Day Years Used Date Smoking Tobacco: Never Alcohol Use Standard Drinks/Week Comments No 0 (1 standard drink = 0.6 oz pur e alcohol) Sex and Gender Information Value Date Recorded Sex Assigned at Not on file Legal Sex Male 12:55 PM NONFARM ANIMAL CARETAKER Gender Identity Not on file Sexual Orientation Not on file documented as of this encounter Ordered Prescriptions Prescription Sig Dispense Quantity Refills Last Filled Start Date End Date lacosamide (VIMPAT) 100 mg tablet Take 2 tablets (200 mg total) by mouth 2 (two) times a day. 08/29/2016 8 documented in this encounter Miscellaneous Notes * Telephone Encounter - Jess Campos LPN - 08/30/2016 8:43 AM CDT Meds were clarified with [facility] by Bernie * Telephone Encounter - Darryl Chacon - 08/28/2016 9:50 AM CDT Silvia from [facility] needs to know how much Vimpat pt is to get. They have down that he Is to take 200mg BID and they talked to chery and they are showing 100mg BID. Please contact Lisandra let her know which it should be. [phone] documented in this encounter Plan of Treatment Not on file documented as of this encounter Visit Diagnoses Not on filedocumented in this encounter Discontinued Medications Medication Sig Discontinue Reason Start Date End Da te lacosamide (VIMPAT) 100 mg tablet Take 1 tablet (100 mg total) by mouth 2 (two) times a day. Reorder 08/02/2016 08/29/2016 documented as of this encounter Care Teams Business School Dean Relationship Specialty Start Date End Date Gulshan Mena DO [address] [place] [address] PCP - General 05/11/16 documented as of this encounter
--- OUTSIDE RECORDS SUMMARY | 2024-02-12 05:08 | XMS_ITS | Encounter Summary ---
Author Organization [facility] Healthcare Address [address] [place] [address] Care Team Providers Care Lehr Stripper Name Role Phone Unavailable Primary Care Provider Unavailabl e Encounter Details Date Type Department Care Team (Late st Contact Info) Description 12/07/2009 12:20 PM CDT - 12/07/2009 11:59 PM CDT Hospital Encounter [facility] Gulshan Mena, DO [address] [place] [address] Vomiting alone; Constipation Social History Tobacco Use Types Packs/Day Years Used Date Smoking Tobacco: Never Assessed Sex and Gender Information Value Date Recorded Sex Assigned at Not on file Legal Sex Male 12:55 PM GEOGRAPHY TEACHER Gender Identity Not on file Sexual Orientation Not on file documented as of this encounter Plan of Treatment Not on file documented as of this encounter Visit Diagnoses Diagnosis Vomiting alone Constipation Unspecified constipation documented in this encounter
--- OUTSIDE RECORDS SUMMARY | 2024-02-12 05:08 | XMS_ITS | Encounter Summary ---
Author Organization [facility] Healthcare Address [address] [place] [address] Care Team Providers Care Public Relations Sales Marketing Name Role Phone Unavailable Primary Care Provider Unavailabl e Encounter Details Date Type Department Care Team (Late st Contact Info) Description 09/18/2008 1:33 PM CDT - 09/18/2008 4:04 PM CDT Hospital Encounter [facility] Otoniel Benjamin MD [address] [place] [id number] Epilepsy (HCC) Social History Tobacco Use Types Packs/Day Years Used Date Smoking Tobacco: Never Assessed Sex and Gender Information Value Date Recorded Sex Assigned at Not on file Legal Sex Male 12:55 PM MANAGER OF APPLICATION DEVELOPMENT Gender Identity Not on file Sexual Orientation Not on file documented as of this encounter Plan of Treatment Not on file documented as of this encounter Visit Diagnoses Diagnosis Epilepsy (HCC) Unspecified epilepsy without mention of intractable epilepsy documented in this encounter
--- OUTSIDE RECORDS SUMMARY | 2024-02-12 05:08 | XMS_ITS | Encounter Summary ---
Author Organization [facility] Medical [facility] Address [address] [place] [address] Care Team Providers Care Line Up Examiner Name Role Phone Gulshan Mena DO Primary Care Provider Reason for Visit * Reason Comments Seizures Intractable Rob[place]-G astaut syndrome without status epilepticus Seizures Refractory generaliz ed nonconvulsive epilepsy Neuro Problem Active autistic diso rder Encounter Details Date Type Department Care Team (Late st Contact Info) Description 11/12/2017 10:00 AM CDT Office Visit [facility] [place] at [facility] [address] [place] [address] Tosha Elaine PA [address] [facility] [address] [place] [address] 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); Developmental delay; Active autistic disorder; Refractory generalized nonconvulsive epilepsy (CMS/HCC) Social History Tobacco Use Types Packs/Day Years Used Date Smoking Tobacco: Never Smokeless Tobacco: Never Alcohol Use Standard Drinks/Week Comments No 0 (1 standard drink = 0.6 oz pur e alcohol) Sex and Gender Information Value Date Recorded Sex Assigned at Not on file Legal Sex Male 12:55 PM INTERNAL CONSULTANT Gender Identity Not on file Sexual Orientation Not on file documented as of this encounter Ordered Prescriptions Prescription Sig Dispense Quantity Refills Last Filled Start Date End Date lacosamide (VIMPAT) 100 mg tablet Take 2 tablets (200 mg total) by mouth 2 (two) times a day. Take 2 tablets by mouth BID 120 tablet 4 11/12/2017 9 cloBAZam (ONFI) tablet Take 2 tablets (40 mg total) by mouth nightly. 60 tablet 5 11/12/2017 9 documented in this encounter Progress Notes * Tosha Diamond PA - 11/12/2017 10:00 AM CDT Patient ID: Travis Beebe is a 32 y.o. male This patient is sent from Gulshan Mena DO for treatment of his seizures. HPI: Seizures He has been unsteady on his feet for the past couple of days. Patient has been having more seizures. He has had more at night, especially in the morning hours which is worse for Travis. He usually has them in the mornings. In September there were 13 seizures, October he had quite a few more 24 to beexact. He has had to have Diastat utilized in the past few months. He takes his medications as presc ribed. He has been more active in the community, going bowling. He is happy for the most part. Theyare interested in the Sentiva VNS device which would be better for him as he has nocturnal seizuresand it would be covered by insurance. Reviewed lamotrigine level from 06/2017 which was [...] nightly., Disp: 60 tablet, Rfl: 5 ??? cloNIDine [...] (VIMPAT) 100 mg tablet, Take 2 tablets by mouth BID, Disp: [...] other seizure medications as prescribed. 2. 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 We will follow with Dr. Longo for the Sentiva VNS device. 3. Active autistic disorder He does follow only the simplest of commands Follow up again in three months, sooner if needed Tosha Diamond PA-C Physician Hot Repairman, Neurology Office: Zac Noble D.O. 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 The output current remains at 2.0, signal on time is decreased to 30 sec, signal off time is decreased to 1.1 min Battery status indicator is now accurate and is at 50%-75% This patient has frequent nocturnal seizures, up to 12 per night, we believe this is an indication for the new vagal nerve stimulator device that monitors heart rate and initiates a stimulus. The Zac Noble D.O. 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 Reorder 06/14/2017 11/12/2017 lacosamide (VIMPAT) 100 mg tablet Take 2 tablets by mouth BID Reorder 07/04/2017 11/12/2017 documented as of this encounter Care Teams Line Up Examiner Relationship Specialty Start Date End Date Gulshan Mena DO [address] [place] [address] PCP - General 05/11/16 documented as of this encounter
--- OUTSIDE RECORDS SUMMARY | 2024-02-12 05:08 | XMS_ITS | Encounter Summary ---
Author Organization [facility] Medical [facility] Address [address] [place] [address] Care Team Providers Care English Composition Instructor Name Role Phone Gulshan Mena DO Primary Care Provider Encounter Details Date Type Department Care Team (Late st Contact Info) Description 02/28/2017 [place] [facility] [place] [address] [address] Jess Campos LPN Social History Tobacco Use Types Packs/Day Years Used Date Smoking Tobacco: Never Alcohol Use Standard Drinks/Week Comments No 0 (1 standard drink = 0.6 oz pur e alcohol) Sex and Gender Information Value Date Recorded Sex Assigned at Not on file Legal Sex Male 12:55 PM WIRE STRETCHER Gender Identity Not on file Sexual Orientation Not on file documented as of this encounter Miscellaneous Notes * Telephone Encounter - Jess Campos LPN - 08/28/2017 3:43 PM CDT Note written to close encounter documented in this encounter Plan of Treatment Not on file documented as of this encounter Visit Diagnoses Not on filedocumented in this encounter Care Teams English Composition Instructor Relationship Specialty Start Date End Date Gulshan Mena DO [address] [place], [place] [id number] PCP - General 05/11/16 documented as of this encounter
--- OUTSIDE RECORDS SUMMARY | 2024-02-12 05:08 | XMS_ITS | Encounter Summary ---
Author Organization [facility] Medical [facility] Address [address] [place] [address] Care Team Providers Care Polisher Sand Name Role Phone Gulshan Mena DO Primary Care Provider Reason for Visit * Reason Onset Date Comments Medication Problem 08/17/2016 Encounter Details Date Type Department Care Team (Late st Contact Info) Description 08/17/2016 Telephone [facility] 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 Sariah crum she was informed that it has been taking care of . documented in this encounter Plan of Treatment Not on file documented as of this encounter Visit Diagnoses Not on filedocumented in this encounter Care Teams Polisher Sand Relationship Specialty Start Date End Date Gulshan Mena DO [address] [place] [address] PCP - General 05/11/16 documented as of this encounter
--- OUTSIDE RECORDS SUMMARY | 2024-02-12 05:08 | XMS_ITS | Encounter Summary ---
Author Organization [facility] Healthcare Address [address] [place] [address] Care Team Providers Care Automotive Parts Counterperson Name Role Phone Gulshan Mena DO Primary Care Provider [phone] Encounter Details Date Type Department Care Team (Late st Contact Info) Description 01/21/2016 5:31 PM CORE ANALYST - 01/21/2016 8:19 PM CORE ANALYST Hospital Encounter [facility] Jose R Koroma MD [address] [place] [address] Epilepsy without status epilepticus, not intractable (CMS/HCC); Autistic disorder; Anxiety disorder Social History Tobacco Use Types Packs/Day Years Used Date Smoking Tobacco: Never Alcohol Use Standard Drinks/Week Comments No 0 (1 standard drink = 0.6 oz pur e alcohol) Sex and Gender Information Value Date Recorded Sex Assigned at Not on file Legal Sex Male 12:55 PM CORE ANALYST Gender Identity Not on file Sexual Orientation Not on file documented as of this encounter Last Filed Vital Signs Vital Sign Reading Time Taken Comments Blood Pressure - - Pulse - - Temperature - - Respiratory Rate - - Oxygen Saturation - - Inhaled Oxygen Concentration - - Weight 65.1 kg (143 lb 8.3 oz) 01/21/2016 5:07 P M CORE ANALYST Height 175.3 cm (5' 9.02 ) 01/21/2016 5:07 PM CS T Body Mass Index 21.18 01/21/2016 5:07 PM CORE ANALYST documented in this encounter Medications at Time [...] Procedure Name Priority Date/Time Associated Diagnosis Comments BLOOD GLUCOSE, POC Routine 01/21/2016 5: 43 PM CORE ANALYST SERUM ZONISAMIDE DRUG LEVEL Routine 01/21/2016 2:08 PM CORE ANALYST SERUM LAMOTRIGINE DRUG LEVEL Routine 01/21/2016 2:08 PM CORE ANALYST SERUM LACOSAMIDE DRUG LEVEL Routine 01/21/2016 2:08 PM CORE ANALYST PLASMA COMPREHENSIVE METABOLIC PANEL Routine 01/21/2016 11:51 AM CORE ANALYST BLOOD CELL COUNT (CBC), MORPHOLOGIC EXAM Routine 01/21/2016 11:51 AM CORE ANALYST DISCHARGE LABORATORY CUMULATIVE REPORT 01/21/2016 documented in this encounter Results * Blood glucose, POC (01/21/2016 5:43 PM CORE ANALYST) Glucose, POC, bld 100 70 - 100 mg/dl CDR HISTORICAL RESULTS Blood specimen (specimen) 01/21/2016 5:43 PM CORE ANALYST Historical Provider LAB BLOOD ORDERABLES Marissa l Result Performing Organization Address [facility] Co de Phone Number CDR HISTORICAL RESULTS * Serum lamotrigine drug level (01/21/2016 2:08 PM CORE ANALYST) Lamotrigine 8.6 2.5 - 15.0 mcg/ml CDR HISTORICAL RESULTS Comment: ADDITIONAL INFORMATION This test was developed and its performance characteristics determined by [facility] in a manner consistent with CLIA requirements. This test has not been cleared or approved by the U.S. Food and Drug Administration. Serum 01/21/2016 2:08 PM CORE ANALYST Narrative CDR HISTORICAL RESULTS - 01/24/2016 2:35 PM CORE ANALYST Test performed at [facility] Medicine [facility] Pathology, [address] [place] [address], [place], [address]. Jose R Ebenezer Koroma MD LAB BLOOD ORDERABLES Final R esult Performing Organization Address [facility]/ZIP Co de Phone Number CDR HISTORICAL RESULTS * Serum lacosamide drug level (01/21/2016 2:08 PM CORE ANALYST) Lacosamide 7.6 1.0 - 10.0 mcg/ml CDR HISTORICAL RESULTS Comment: ADDITIONAL INFORMATION This test was developed and its performance characteristics determined by [facility] in a manner consistent with CLIA requirements. This test has not been cleared or approved by the U.S. Food and Drug Administration. Serum 01/21/2016 2:08 PM CORE ANALYST Narrative CDR HISTORICAL RESULTS - 01/25/2016 4:45 AM CORE ANALYST Test performed at [facility], [address] [place] [address], [facility]. Jose R Koroma MD LAB BLOOD ORDERABLES Final R AppShare Performing Organization Address [facility] de Phone Number CDR HISTORICAL RESULTS * Serum zonisamide drug level (01/21/2016 2:08 PM CORE ANALYST) Zonisamide 20 10 - 40 mcg/ml CDR HISTORICAL RESULTS Comment: ADDITIONAL INFORMATION This test was developed and its performance characteristics determined by [facility] in a manner consistent with CLIA requirements. This test has not been cleared or approved by the U.S. Food and Drug Administration. Serum 01/21/2016 2:08 PM CORE ANALYST Narrative CDR HISTORICAL RESULTS - 01/26/2016 1:45 AM CORE ANALYST Test performed at [facility] Pathology, [address] [place] [address], [facility]. Jose R Koroma MD LAB BLOOD ORDERABLES Final R esult Performing Organization Address [facility] de Phone Number CDR HISTORICAL RESULTS * (ABNORMAL) Plasma comprehensive metabolic panel (01/21/2016 11:51 AM CORE ANALYST) Pathologist [facility] eGFR >60 ml/min/1. 73 m2 CDR HISTORICAL RESULTS Comment: GFR Reference Range: = > 60 mL/min/1.73 m2 This result has been calculated assuming the patient is Non-. ??If the patient is , please multiply this result by 1.21. Sodium 141 136 - 145 mmol/L CDR HISTORICAL RESULTS K, pl 3.9 3.5 - 5.1 mmol/L CDR HISTORICAL RESULTS Chloride 103 98 - 107 mmol/L CDR HISTORICAL RESULTS CO2 23 22 - 29 mmol/L CDR HISTORICAL RESULTS A. gap 15 5 - 15 mmol/L CDR HISTORICAL RESULTS Glucose 98 65 - 99 mg/dl CDR HISTORICAL RESULTS Comment: If specimen is from a non-fasting patient, Reference Range is 70 - 99 mg/dL. BUN 21(H) 7 - 18 mg/dl CDR HISTORICAL RESULTS Creatinine 1.0 0.7 - 1.2 mg/dl CDR HISTORICAL RESULTS Comment: Due to the Methodology of this test it may be falsely decreased when the test is run on samples obtained before sufficient time has lasped after the administration of the drugs Acetaminophen and N-acetylcysteine. Calcium 9.7 8.6 - 10.2 mg/dl CDR HISTORICAL RESULTS Alb 4.8 3.5 - 5.2 g/dl CDR HISTORICAL RESULTS Alk phos 149(H) 40 - 129 Units/L CDR HISTORICAL RESULTS ALT 66(H) 5 - 40 Units/L CDR HISTORICAL RESULTS AST 32 5 - 39 Units/L CDR HISTORICAL RESULTS Bilirubin 0.4 0.1 - 1.0 mg/dl CDR HISTORICAL RESULTS Protein, pl 8.0 6.6 - 8.7 g/dl CDR HISTORICAL RESULTS Plasma 01/21/2016 11:5 1 AM CORE ANALYST Narrative CDR HISTORICAL RESULTS - 01/21/2016 12:22 PM CORE ANALYST Special Instructions: us Jose R Koroma MD LAB BLOOD ORDERABLES Final R esult CDR HISTORICAL RESULTS * Blood cell count (CBC), morphologic exam (01/21/2016 11:51 AM CORE ANALYST) Pathologist [facility] Rdw 12.6 11.5 - 14.6 % CDR HISTORICAL RESULTS WBC 6.9 3.8 - 9.8 K/cumm CDR HISTORICAL RESULTS Platelets 200 140 - 440 K/cumm CDR HISTORICAL RESULTS RBC 4.66 4.50 - 5.70 M/cumm CDR HISTORICAL RESULTS MPV 9.7 8.0 - 12.0 fl CDR HISTORICAL RESULTS Hgb 15.4 13.8 - 17.2 g/dl CDR HISTORICAL RESULTS Neutrophils 67.4 42.0 - 75.0 % CDR HISTORICAL RESULTS Hct 43.2 40.7 - 50.3 % CDR HISTORICAL RESULTS Immature granulocytes 0.6 0.0 - 0.6 % CDR HISTORICAL RESULTS MCV 92.7 80.0 - 100.0 fl CDR HISTORICAL RESULTS Lymphocytes 22.4 16.7 - 46.3 % CDR HISTORICAL RESULTS MCH 33.0 26.7 - 33.7 pg CDR HISTORICAL RESULTS Monos 6.1 0.0 - 10.0 % CDR HISTORICAL RESULTS MCHC 35.6 32.7 - 36.0 g/dl CDR HISTORICAL RESULTS Eosinophils 3.1 0.0 - 6.8 % CDR HISTORICAL RESULTS RDW 42.5 38.0 - 56.6 fl CDR HISTORICAL RESULTS Basophils 0.4 0.0 - 1.5 % CDR HISTORICAL RESULTS NRBC 0.0 0.0 - 0.0 % CDR HISTORICAL RESULTS Neutrophils, abs 4.6 1.4 - 7.4 K/cumm CDR HISTORICAL RESULTS Immature granulocyte, abs 0.0 0.0 - 0.1 K/cumm CDR HISTORICAL RESULTS Lymphocytes, abs 1.5 0.6 - 3.4 K/cumm CDR HISTORICAL RESULTS Monocytes, absolute 0.4 0.0 - 0.9 K/cumm CDR HISTORICAL RESULTS Eosinophils, abs 0.2 0.0 - 0.6 K/cumm CDR HISTORICAL RESULTS Basophils, abs 0.0 0.0 - 0.5 K/cumm CDR HISTORICAL RESULTS NRBC, abs 0.00 0.00 - 0.00 K/cumm CDR HISTORICAL RESULTS Blood specimen (specimen) 01/21/2016 11:51 AM CORE ANALYST Narrative CDR HISTORICAL RESULTS - 01/21/2016 12:03 PM CORE ANALYST Special Instructions: us Jose R Ebenezer Koroma MD LAB BLOOD ORDERABLES Final R esult CDR HISTORICAL RESULTS * DISCHARGE LABORATORY CUMULATIVE REPORT (01/21/2016) Narrative 01/21/2016 Ordered by an unspecified provider. us Historical Provider LAB BLOOD ORDERABLES Marissa l Result documented in this encounter Visit Diagnoses Diagnosis Epilepsy without status epilepticus, not intractable (HCC) Autistic disorder Autistic disorder, current or active state Anxiety disorder Anxiety state, unspecified documented in this encounter Care Teams Automotive Parts Counterperson Relationship Specialty Start Date End Date Gulshan Mena DO [address] [place] [address] PCP - General 05/12/14 05/10/16 documented as of this encounter
--- OUTSIDE RECORDS SUMMARY | 2024-02-12 05:08 | XMS_ITS | Encounter Summary ---
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; Attention deficit disorder with hyperactivity Social History Tobacco Use Types Packs/Day Years Used Date Smoking Tobacco: Never Assessed Sex and Gender Information Value Date Recorded Sex Assigned at Not on file Legal Sex Male 12:55 PM HOSPITAL TELEVISION RENTAL CLERK Gender Identity Not on file Sexual Orientation Not on file documented as of this encounter Last Filed Vital Signs Vital Sign Reading Time Taken Comments Blood Pressure - - Pulse - - Temperature - - Respiratory Rate - - Oxygen Saturation - - Inhaled Oxygen Concentration - - Weight 65.1 kg (143 lb 8.3 oz) 03/30/2012 4:58 P M HOSPITAL TELEVISION RENTAL CLERK Height 175.3 cm (5' 9.02 ) 03/30/2012 4:58 PM CS T Body Mass Index 21.18 04/24/2012 8:50 AM CDT documented in this encounter Plan of Treatment Not on file documented as of this encounter Procedures Procedure Name Priority Date/Time Associated Diagnosis Comments PLASMA PHENYTOIN DRUG LEVEL Routine 03/30/2012 12:40 PM HOSPITAL TELEVISION RENTAL CLERK PLASMA BASIC METABOLIC PANEL Routine 03/30/2012 12:40 PM HOSPITAL TELEVISION RENTAL CLERK DISCHARGE LABORATORY CUMULATIVE REPORT 03/30/2012 documented in this encounter Results * Plasma basic metabolic panel (03/30/2012 12:40 PM HOSPITAL TELEVISION RENTAL CLERK) eGFR >60 ml/min/1.7 3 m2 HISTORICAL RESULTS Comment: GFR Reference Range: = > 60 mL/min/1.73 m2 This result has been calculated assuming the patient is Non-. ??If the patient is , please multiply this result by 1.21. Sodium 139 136 - 145 mmol/L HISTORICAL RESULTS K, pl 3.9 3.5 - 5.1 mmol/L HISTORICAL RESULTS Chloride 105 98 - 107 mmol/L HISTORICAL RESULTS CO2 26 22 - 29 mmol/L HISTORICAL RESULTS A. gap 8 5 - 15 mmol/L HISTORICAL RESULTS Glucose 96 65 - 99 mg/dl HISTORICAL RESULTS Comment: If specimen is from a non-fasting patient, Reference Range is 65-199 mg/dL. BUN 16 7 - 18 mg/dl HISTORICAL RESULTS Creatinine 0.8 0.7 - 1.2 mg/dl HISTORICAL RESULTS Calcium 9.4 8.6 - 10.2 mg/dl HISTORICAL RESULTS Plasma 03/30/2012 12:4 0 PM HOSPITAL TELEVISION RENTAL CLERK Narrative HISTORICAL RESULTS - 03/30/2012 1:18 PM HOSPITAL TELEVISION RENTAL CLERK Special Instructions: Dereck Villagomez MD LAB BLOOD ORDERABLES Final Re sult Performing Organization Address City/State/[facility] Co de Phone Number HISTORICAL RESULTS * (ABNORMAL) Plasma phenytoin drug level (03/30/2012 12:40 PM HOSPITAL TELEVISION RENTAL CLERK) Phenytoin 22.8(H) 10.0 - 20.0 mcg/ml HISTORICAL RESULTS Plasma 03/30/2012 12:4 0 PM HOSPITAL TELEVISION RENTAL CLERK Narrative HISTORICAL RESULTS - 03/30/2012 1:18 PM HOSPITAL TELEVISION RENTAL CLERK Special Instructions: us Dereck Villagomez MD LAB BLOOD ORDERABLES Final Re sult HISTORICAL RESULTS * DISCHARGE LABORATORY CUMULATIVE REPORT (03/30/2012) Narrative 03/30/2012 Ordered by an unspecified provider. 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
--- OUTSIDE RECORDS SUMMARY | 2024-02-12 05:08 | XMS_ITS | Encounter Summary ---
Author Organization [facility] Medical [facility] Address [address] [facility] [address] [place] [address] Care Team Providers Care Cab Starter Name Role Phone Gulshan Mena DO Primary Care Provider [phone] Encounter Details Date Type Department Care Team (Late st Contact Info) Description 07/22/2017 Telephone [facility] [place] Neurology at [address] [address] Jess Campos LPN Social History Tobacco Use Types Packs/Day Years Used Date Smoking Tobacco: Never Smokeless Tobacco: Never Alcohol Use Standard Drinks/Week Comments No 0 (1 standard drink = 0.6 oz pur e alcohol) Sex and Gender Information Value Date Recorded Sex Assigned at Not on file Legal Sex Male 12:55 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 She will relay info to Ana Lilia who will let us know if pt is having any seizures and needs the lamotrigine increased. * Telephone Encounter - Jess Campos LPN - 07/22/2017 3:02 PM CDT ----- Message from Jn Noble DO sent at 07/19/2017 10:30 AM CDT ----- Lamotrigine is 7, lacosamide is 12, zonisamide is 30. Room to increase the lamotrigine if needed documented in this encounter Plan of Treatment Not on file documented as of this encounter Visit Diagnoses Not on filedocumented in this encounter Care Teams Cab Starter Relationship Specialty Start Date End Date Gulshan Mena DO [address] [place] [address] PCP - General 05/11/16 documented as of this encounter
--- OUTSIDE RECORDS SUMMARY | 2024-02-12 05:08 | XMS_ITS | Encounter Summary ---
Author Organization [facility] Address [address] [place] [address] Care Team Providers Care Packaging Specialist Name Role Phone Gulshan Mena DO Primary Care Provider Encounter Details Date Type Department Care Team (Late st Contact Info) Description 07/19/2016 Orders Only [facility] [address] [place] [address] Roxanne Banuelos [place] Social History Tobacco Use Types Packs/Day Years Used Date Smoking Tobacco: Never Alcohol Use Standard Drinks/Week Comments No 0 (1 standard drink = 0.6 oz pur e alcohol) Sex and Gender Information Value Date Recorded Sex Assigned at Not on file Legal Sex Male 12:55 PM COMMUNICATION ASSISTANT Gender Identity Not on file Sexual Orientation Not on file documented as of this encounter Ordered Prescriptions Prescription Sig Dispense Quantity Refills Last Filled Start Date End Date cloBAZam (ONFI) tablet Take 2 tablet by mouth daily at bedtime 60 tablet 3 07/19/2016 7 documented in this encounter Plan of Treatment Not on file documented as of this encounter Visit Diagnoses Not on filedocumented in this encounter Discontinued Medications Medication Sig Discontinue Reason Start Date End Da te cloBAZam (ONFI) tablet take 2 Tablet by oral route once at bedtime Reorder 05/12/2014 07/19/2016 documented as of this encounter Care Teams Packaging Specialist Relationship Specialty Start Date End Date Gulshan Mena DO [address] [place] [address] PCP - General 05/11/16 documented as of this encounter
--- OUTSIDE RECORDS SUMMARY | 2024-02-12 05:08 | XMS_ITS | Encounter Summary ---
Author Organization [facility] Healthcare Address [address] [place] [address] Care Team Providers Care Chart Calculator Name Role Phone Unavailable Primary Care Provider Unavailabl e Encounter Details Date Type Department Care Team (Late st Contact Info) Description 05/30/2010 8:37 PM CDT - 05/30/2010 10:16 PM CDT Hospital Encounter [facility] Dereck Villagomez MD [address] [place] [address] Generalized convulsive epilepsy (HCC) Social History Tobacco Use Types Packs/Day Years Used Date Smoking Tobacco: Never Assessed Sex and Gender Information Value Date Recorded Sex Assigned at Not on file Legal Sex Male 12:55 PM HEALTHCARE CONSULTANT Gender Identity Not on file Sexual Orientation Not on file documented as of this encounter Plan of Treatment Not on file documented as of this encounter Visit Diagnoses Diagnosis Generalized convulsive epilepsy (HCC) Generalized convulsive epilepsy without mention of intractable epilepsy documented in this encounter
--- OUTSIDE RECORDS SUMMARY | 2024-02-12 05:08 | XMS_ITS | Encounter Summary ---
Author Organization [facility] Medical [facility] Address [address] [place] [address] Care Team Providers Care Cyber Security Specialist Name Role Phone Gulshan Mena DO Primary Care Provider Reason for Visit * Reason Comments Seizures VNS Encounter Details Date Type Department Care Team (Late Contact Info) Description 07/09/2017 10:45 AM CDT Procedure visit [facility] at [facility] [address] [place] [address] Jn Noble DO [address] [place] [address] 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); Refractory generalized nonconvulsive epilepsy (CMS/HCC) Social History Tobacco Use Types Packs/Day Years Used Date Smoking Tobacco: Never Smokeless Tobacco: Never Alcohol Use Standard Drinks/Week Comments No 0 (1 standard drink = 0.6 oz pur e alcohol) Sex and Gender Information Value Date Recorded Sex Assigned at Not on file 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 Gender Identity Not on file Sexual Orientation Not on file documented as of this encounter Last Filed Vital Signs Vital Sign Reading Time Taken Comments Blood Pressure 118/62 07/09/2017 11:09 AM CDT Pulse 76 07/09/2017 11:09 AM CDT Temperature - - Respiratory Rate 18 07/09/2017 11:09 AM CDT Oxygen Saturation - - Inhaled Oxygen Concentration - - Weight 87.8 kg (193 lb 9.6 oz) 07/09/2017 11:09 AM CDT Height 175.3 cm (5' 9.02 ) 07/09/2017 11:09 AM C DT Body Mass Index 28.58 07/09/2017 11:09 AM CDT documented in this encounter Progress Notes * [place], F DO Driss - 07/09/2017 10:45 AM CDT Patient ID: Travis Beebe is a 32 y.o. male This patient is sent from Gulshan Mena DO for treatment of his seizures. HPI: Seizures He has been unsteady on his feet for the past couple of days. Patient been doing pretty well with the seizures. He has had none at HS, a few during the day which is under decent control for Travis. He usually has them in the mornings. In September there were 13 seizures, October he had quite a few more 22 to be exact. He has had to have Diastat utilized in the past few months. He has had 15 or so per month. He takes his medications as prescribed. He has been more active in the community, going bowling. He is happy for the most part. They are interested newer VNS device coming out next month. Reviewed lamotrigine level from 01/2016 which was normal at 8.6, lacosamide was 7.6, zonisamide wasnormal at 20 Reviewed laboratory data from 08/06/2016 which revealed [...] zonisamide by 200 mg, he will take 400 mg twice daily and continue the other seizure medications as prescribed. 2. 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 We will start the paperwork for the new VNS device. 3. Active autistic disorder He does follow only the simplest of commands Follow up again in three months, sooner if needed Zac Noble D.O. [facility], Neurology & Neurophysiology Office: documented in this encounter Procedure Notes * Jn Noble DO - 07/09/2017 10:45 AM CDT Procedures VNS adjustment note Is output current is increased to two milliamps All other parameters remain the same His lead impedance is 2950 Ohms Is battery status indicators screen, 50-75% Seizure severity is about the same, his level of alertness and interaction with the environment is decent Zac Noble D.O. 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) Ordered: 07/09/2017 documented as of this encounter Procedures Procedure Name Priority Date/Time Associated Diagnosis Comments LACOSAMIDE Routine 07/17/2017 2:55 PM CDT 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 Medication Sig Dispense Quantity Refills Last Filled Start D ate End Date food supplemt, lactose-reduced 0.04-1.05 gram-kcal/mL liquid added in this encounter Care Teams Cyber Security Specialist Relationship Specialty Start Date End Date Gulshan Mena DO [address] [place] [address] PCP - General 05/11/16 documented as of this encounter
--- OUTSIDE RECORDS SUMMARY | 2024-02-12 05:08 | XMS_ITS | Encounter Summary ---
Author Organization [facility] Healthcare Address [address] [place] [address] Care Team Providers Care Motion Designer Name Role Phone Unavailable Primary Care Provider Unavailabl e Encounter Details Date Type Department Care Team (Late st Contact Info) Description 11/18/2009 7:35 PM CDT - 11/18/2009 10:32 PM CDT Hospital Encounter [facility] Dereck Villagomez MD [address] [place] [address] Closed fracture of other facial bone; Closed fracture of nasal bone; Fall; Place of occurrence, home Social History Tobacco Use Types Packs/Day Years Used Date Smoking Tobacco: Never Assessed Sex and Gender Information Value Date Recorded Sex Assigned at Not on file 

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
--- OUTSIDE RECORDS SUMMARY | 2024-02-12 05:08 | XMS_ITS | Encounter Summary ---
Author Organization [facility] Address [address] [place] [address] Care Team Providers Care Machine Sign Writer Name Role Phone Gulshan Mena DO Primary Care Provider Encounter Details Date Type Department Care Team (Late st Contact Info) Description 06/14/2017 [facility] [facility] [place] [address] [place] [address] Jess Campos LPN Social History Tobacco Use Types Packs/Day Years Used Date Smoking Tobacco: Never Alcohol Use Standard Drinks/Week Comments No 0 (1 standard drink = 0.6 oz pur e alcohol) Sex and Gender Information Value Date Recorded Sex Assigned at Not on file 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 60 tablet 5 06/14/2017 8 documented in this encounter Miscellaneous Notes * Telephone Encounter - Jess Campos LPN - 06/14/2017 1:52 PM CDT Onfi refilled per faxed request. TO given to Rico documented in this encounter Plan of Treatment Not on file documented as of this encounter Visit Diagnoses Not on filedocumented in this encounter Discontinued Medications Medication Sig Discontinue Reason Start Date End Da te cloBAZam (ONFI) tablet Take 2 tablet by mouth daily at bedtime Reorder 08/02/2016 06/14/2017 documented as of this encounter Care Teams Machine Sign Writer Relationship Specialty Start Date End Date Gulshan Mena DO [address] [place] [address] PCP - General 05/11/16 documented as of this encounter
--- OUTSIDE RECORDS SUMMARY | 2024-02-12 05:08 | XMS_ITS | Encounter Summary ---
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
--- OUTSIDE RECORDS SUMMARY | 2024-02-12 05:08 | XMS_ITS | Encounter Summary ---
Author Organization [facility] Medical [facility] Address [address] [place] [address] Care Team Providers Care Rehabilitation Specialist Name Role Phone Gulshan Mena DO Primary Care Provider Reason for Visit * Reason Onset Date Comments medication request 06/21/2017 [facility] Encounter Details Date Type Department Care Team (Late st Contact Info) Description 06/21/2017 [facility] at [facility] [address] [address] Jn Noble DO [address] [place] [address] medication request ([facility]) Social History Tobacco Use Types Packs/Day Years Used Date Smoking Tobacco: Never Alcohol Use Standard Drinks/Week Comments No 0 (1 standard drink = 0.6 oz pur e alcohol) Sex and Gender Information Value Date Recorded Sex Assigned at Not on file 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 He is down to one so can we fill this AILYN. documented in this encounter Plan of Treatment Not on file documented as of this encounter Visit Diagnoses Not on filedocumented in this encounter Care Teams Rehabilitation Specialist Relationship Specialty Start Date End Date Gulshan Mena DO [address] [place] [address] PCP - General 05/11/16 documented as of this encounter
--- OUTSIDE RECORDS SUMMARY | 2024-02-12 05:08 | XMS_ITS | Encounter Summary ---
Author Organization [facility] Address [address] [place] [address] Care Team Providers Care Clerk Analyst Name Role Phone Gulshan Mena DO Primary Care Provider Reason for Visit * Reason Comments Seizures Encounter Details Date Type Department Care Team (Late st Contact Info) Description 12/13/2016 10:00 AM CDT Office Visit [facility] [address] [place] [address] Tosha Elaine PA [address] [place] [address] Refractory generalized nonconvulsive epilepsy (CMS/HCC) [...] on file 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 Gender Identity Not on file Sexual Orientation Not on file documented as of this encounter Last Filed Vital Signs Vital Sign Reading Time Taken Comments Blood Pressure 118/62 12/13/2016 10:29 AM CDT Pulse 76 12/13/2016 10:29 AM CDT Temperature - - Respiratory Rate 16 12/13/2016 10:29 AM CDT Oxygen Saturation - - Inhaled Oxygen Concentration - - Weight 77.1 kg (170 lb) 12/13/2016 10:29 AM CDT Height 175.3 cm (5' 9 ) 12/13/2016 10:29 AM CDT Body Mass Index 25.1 12/13/2016 10:29 AM CDT documented in this encounter Progress Notes * Tosha Diamond PA - 12/13/2016 10:00 AM CDT Patient ID: Travis Beebe is a 31 y.o. male This patient is sent from Gulshan Mena DO for treatment of his seizures. HPI: HPI Patient been doing pretty well [...] of 8, good, zonisamide level 22.2, decent. I have reviewed: allergies, current medications, past family history, past medical history, past social history, past surgical history and problem list Current Outpatient Prescriptions: ??? lacosamide (VIMPAT) 100 mg tablet, Take 2 tablets (200 mg total) by mouth 2 (two) times a day.,Disp: , Rfl: ??? zonisamide (ZONEGRAN) 100 mg capsule, Take 100 mg by mouth. Take 2 caps by mouth at 8am and 4 caps at 8pm, Disp: , Rfl: ??? busPIRone (BUSPAR) 10 mg tablet, take 1 tablet by oral route 3 times every day, Disp: 270, Rfl:3 ??? carbamide peroxide (DEBROX) 6.5 % otic solution, 6.5 %., Disp: 0 drop, Rfl: 0 ??? cloBAZam (ONFI) tablet, Take 2 tablet by mouth daily at bedtime, Disp: 60 tablet, Rfl: 5 ??? diazePAM (DIASTAT ACUDIAL) rectal kit, GIVE 20MG DIRECTED ONE TIME ONLY FOR STATUS EPILEPTICUS, Disp: 20 mg, Rfl: 5 ??? diazePAM (DIASTAT) 2.5 mg kit, insert 10 milligram by rectal route every prn seizure, Disp: 2 kit, Rfl: 1 ??? ergocalciferol (VITAMIN D2) 50,000 unit capsule, take 1 capsule by oral route every week, Disp:0, Rfl: 0 ??? lamoTRIgine (LaMICtal) 150 mg tablet, Take 300 mg by mouth., Disp: , Rfl: ??? loratadine (CLARITIN) 10 [...] other seizure medications as prescribed. 2. Intractable [place]-Gastaut syndrome without status epilepticus (CMS/HCC) He is on decent doses of lacosamide, lamotrigine and Onfi, we will refill prescriptions today. We will start the paperwork for the new VNS device. 3. Active autistic disorder He does follow only the simplest of commands Return in about 6 months (around 06/12/2017). Tosha Diamond PA-C Physician Hydramatic Mechanic, Neurology Office: documented in this encounter Plan of Treatment Not on file documented as of this encounter Visit Diagnoses Diagnosis Refractory generalized nonconvulsive epilepsy (HCC)- Primary Intractable [place]-Gastaut syndrome without status epilepticus (CMS/HCC) (HCC) Active autistic disorder Autistic disorder, current or active state documented in this encounter Discontinued Medications Medication Sig Discontinue Reason Start Date End Da te zonisamide (ZONEGRAN) 100 mg capsule Take 3 capsules (300 mg total) by mouth 2 (two) times a day. 08/02/2016 12/13/2016 lamoTRIgine (LaMICtal) 150 mg tablet Take 2 tablets (300 mg total) by mouth 2 (two) times a day. 08/02/2016 12/13/2016 cloNIDine (CATAPRES) 0.1 mg tablet take 1 tablet by oral route every evening 07/16/2013 12/13/2016 docusate sodium (COLACE) 100 mg capsule take 1 capsule by oral route every day at bedtime as needed 08/11/2012 12/13/2016 documented as of this encounter Historical Medications * This list may reflect changes made after this encounter. sodium chloride (OCEAN) 0.65 % nasal spray Administer 2 sprays into each nostril as needed loperamide (IMODIUM) 2 mg capsule Take 2 capsules (4 mg total) by mouth At onset of diarrhea, give adtl tab after each diarrheal stool up to 4 tabs a day bisacodyl (DULCOLAX) 10 mg suppository Insert 1 suppository (10 mg total) into the rectum daily as needed for constipation guaiFENesin ER (MUCINEX) 600 mg 12 hr tablet Take 400 mg by mouth Every 4-6 hours as needed cough/congestion acetaminophen (TYLENOL) 325 mg tablet Take 2 tablets (650 mg total) by mouth every 6 (six) hours as needed for pain docusate sodium (COLACE) 100 mg capsuleIndication s:constipation Take 1 capsule (100 mg total) by mouth 2 (two) times a day cloNIDine (CATAPRES) 0.1 mg tablet Take 3 tablets (0.3 mg total) by mouth daily bisacodyl 5 mg tablet Take 10 mg by mouth daily as needed (constipation). 9 dextromethorphan- guaiFENesin (ROBITUSSIN-DM) 2-20 mg/mL liquid Take 10 mL by mouth. Every 4-6 hours as needed for cough 0 phenylephrine (SUDAFED PE) 10 mg tabletIndications :Nasal Congestion Take 10 mg by mouth Every 4-6 hours prn 2 lamoTRIgine (LaMICtal) 150 mg tablet Take 300 mg by mouth 3 (three) times a day. 9 zonisamide (ZONEGRAN) 100 mg capsuleIndication s:Partial Epilepsy Treatment Adjunct Take 100 mg by mouth. Take 2 caps by mouth at 8am and 4 caps at 8pm 7 added in this encounter Care Teams Clerk Analyst Relationship Specialty Start Date End Date Gulshan Mena DO [address] [place] [address] PCP - General 05/11/16 documented as of this encounter
--- OUTSIDE RECORDS SUMMARY | 2024-02-12 05:08 | XMS_ITS | Encounter Summary ---
Author Organization [facility] Healthcare Address [address] [place] [address] Care Team Providers Care Principal Law Clerk Name Role Phone Gulshan Mena DO Primary Care Provider Encounter Details Date Type Department Care Team (Late st Contact Info) Description 01/19/2014 12:55 PM CLOTH TRIMMER HAND - 01/19/2014 3:23 PM CLOTH TRIMMER HAND Hospital Encounter [facility] Chase Villagomez MD [address] [place] [address] Influenza with respiratory manifestation Social History Tobacco Use Types Packs/Day Years Used Date Smoking Tobacco: Never Alcohol Use Standard Drinks/Week Comments No 0 (1 standard drink = 0.6 oz pur e alcohol) Sex and Gender Information Value Date Recorded Sex Assigned at Not on file 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 Gender Identity Not on file Sexual Orientation Not on file documented as of this encounter Last Filed Vital Signs Vital Sign Reading Time Taken Comments Blood Pressure - - Pulse - - Temperature - - Respiratory Rate - - Oxygen Saturation - - Inhaled Oxygen Concentration - - Weight 65.1 kg (143 lb 8.3 oz) 01/19/2014 12:04 PM CLOTH TRIMMER HAND Height 175.3 cm (5' 9.02 ) 01/19/2014 12:[address] Body Mass Index 21.18 01/19/2014 12:04 PM CLOTH TRIMMER HAND documented in this encounter Medications at Time [...] Associated Diagnosis Comments XR CHEST 1 VIEW Routine 01/19/2014 2:24 PM CLOTH TRIMMER HAND INFLUENZA A OR B SCREEN 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 Routine 01/19/2014 12:00 AM CLOTH TRIMMER HAND DISCHARGE LABORATORY CUMULATIVE REPORT 01/19/2014 documented in this encounter Results * XR Chest 1 View (01/19/2014 2:24 PM CLOTH TRIMMER HAND) Anatomical Region Laterality Modality Body, Chest N/A Radiographic Vanessa ging 01/19/2014 2:24 PM CLOTH TRIMMER HAND Narrative 01/19/2014 2:32 PM CLOTH TRIMMER HAND EXAMINATION: ??Single portable view of the chest DATE: ??Jan 19, 2014 02:24:00 PM COMPARISON: 01/20/2011 HISTORY: Cough FINDINGS: There is a battery projected over the left hemithorax. ?? There is a lead that extends superiorly towards the left neck. ??There are bibasilar opacities most likely representing atelectasis. ??No vascular redistribution. ??The bones are unchanged. ??Heart size and mediastinal contours are similar to before. ?? IMPRESSION: ?? 1. Bibasilar opacities most likely representing atelectasis. ?? Follow-up. Radiologist: CARLITO DELGADO ? Attending: ??CHASE VILLAGOMEZ ??Evan Requesting: PAT SALAZAR ?? Requesting Fax: ?? Requesting ID: [id number] Attending Fax: ?? Attending ID: ?? [id number] Completed Time: ?? 01/19/2014 2:24 PM Dictated Time: ?N/A Transcribed Time: 01/19/2014 2:32 PM Signed by: ?CARLITO DELGADO ?on 01/19/2014 2:32 PM Report To 1 ID: Report To 1 Name: , Report To 1 FAX: Report To 2 ID: Report To 2 Name: , Report To 2 FAX: Report To 3 ID: Report To 3 Name: , Report To 3 FAX: NextGen Order #: Procedure Note Provider, MD [place] - 06/02/2016 EXAMINATION: Single portable view of the chest DATE: Jan 19, 2014 02:24:00 PM COMPARISON: 01/20/2011 HISTORY: Cough FINDINGS: There is a battery projected over the left hemithorax. There is a lead that extends superiorly towards the left neck. There are bibasilar opacities most likely representing atelectasis. No vascular redistribution. The bones are unchanged. Heart size and mediastinal contours are similar to before. IMPRESSION: 1. Bibasilar opacities most likely representing atelectasis. Follow-up. Radiologist: CARLITO DELGADO Attending: CHASE VILLAGOMEZ M.D. Requesting: PAT SALAZAR Requesting Requesting ID: [id number] Attending Attending ID: [id number] Completed Time: 01/19/2014 2:24 PM Dictated Time: N/A Transcribed Time: 01/19/2014 2:32 PM Signed by: CARLITO DELGADO on 01/19/2014 2:32 PM Report To 1 ID: Report To 1 Name: , Report To 1 FAX: Report To 2 ID: Report To 2 Name: , Report To 2 FAX: Report To 3 ID: Report To 3 Name: , Report To 3 FAX: NextGen Order #: us Historical Provider MD PIPER XR PROCEDURES Final R esult * Influenza A or B Screen Microbiology (01/19/2014 12:00 AM CLOTH TRIMMER HAND) 01/19/2014 12:0 0 AM CLOTH TRIMMER HAND Narrative HISTORICAL RESULTS - 01/19/2014 5:08 PM CLOTH TRIMMER HAND ? [facility] Microbiology ? [address] ??[place], [place] ??[address] ? Tele: ?Honey Andrade M.D. - Public Health Outreach Worker - Doreen Llamas - Brushing Operator ?? Patient: CURT RYDER ? Admission #: ??[id number] ?? : 1985 ?Location:[facility] ?? Gender: M ?? Admit Date: 01/19/2014 ? = = = = = = = = = = = = = = = = = = = = = = = = = = = = = = = = = = = = = = Rapid Influenza Antigen ? Nasopharyngeal ?? Swab ?? Collected ? 01/19/2014 ?Units ? Reference Range ?(1) ? 13:15 ? (2) ?? Influenza A ? Positive ?Negative ?? Antigen ? (3) ?? Influenza B ? Negative ?Negative ?? Antigen ?? (1) ?? Special Instructions: ?? (2) ?? CALLED TO [facility] ?? (3) ?? Presumptive negative for the presence of Influenza B Antigen. = = = = = = = = = = = = = = = = = = = = = = = = = = = = = = = = = = = = = ? Physician: ?[facility] Microbiology Report-ClinDesk ? Historical Provider LAB 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 - GENERA L ORDERABLES Final Result HISTORICAL RESULTS * DISCHARGE LABORATORY CUMULATIVE REPORT (01/19/2014) Narrative 01/19/2014 Ordered by an unspecified provider. us Historical Provider LAB BLOOD ORDERABLES Marissa l Result documented in this encounter Visit Diagnoses Diagnosis Influenza with respiratory manifestation documented in this encounter Care Teams Principal Law Clerk Relationship Specialty Start Date End Date Gulshan Mena DO [address] [place] [address] PCP - General 11/04/13 05/11/14 documented as of this encounter
--- OUTSIDE RECORDS SUMMARY | 2024-02-12 05:08 | XMS_ITS | Encounter Summary ---
Author Organization [facility] Address [address] [place] [address] Care Team Providers Care Hand Cutter Name Role Phone Gulshan Mena DO Primary Care Provider Reason for Visit * Reason Onset Date Comments sched question 12/25/2016 Encounter Details Date Type Department Care Team (Late st Contact Info) Description 12/25/[address] [facility] 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 NIC PREPARATION ANALYST * Telephone Encounter - Darryl Chacon - 12/25/2016 2:25 PM CST Gudelia wants to talk to malika or eh about sched this pt. She wants him to see Dr Noble and wants him soon. NIC PREPARATION ANALYST documented in this encounter Plan of Treatment Not on file documented as of this encounter Visit Diagnoses Not on filedocumented in this encounter Care Teams Hand Cutter Relationship Specialty Start Date End Date Gulshan Mena DO [address] [place] [address] PCP - General 05/11/16 documented as of this encounter
--- OUTSIDE RECORDS SUMMARY | 2024-02-12 05:08 | XMS_ITS | Encounter Summary ---
Author Organization [facility] Address [address] [place] [address] Care Team Providers Care Ad Compositor Name Role Phone Gulshan Mena DO Primary Care Provider [phone] Reason for Visit * Reason Onset Date Comments medical question 02/15/2017 Encounter Details Date Type Department Care Team (Late st Contact Info) Description 02/15/2017 Telephone [facility] [address] [place] [address] Jn Noble DO [address] [facility] [address] [place] [address] medical question Social History Tobacco Use Types Packs/Day Years Used Date Smoking Tobacco: Never Alcohol Use Standard Drinks/Week Comments No 0 (1 standard drink = 0.6 oz pur e alcohol) Sex and Gender Information Value Date Recorded Sex Assigned at Not on file 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 AT INFORMATION CENTER OFFICER * Telephone Encounter - Darryl Chacon - 02/15/2017 4:19 PM CST Nicci said she wants to talk to Kim or Bernie about pt being sched. She said she can not get hold of James. AT INFORMATION CENTER OFFICER documented in this encounter Plan of Treatment Not on file documented as of this encounter Visit Diagnoses Not on filedocumented in this encounter Care Teams Ad Compositor Relationship Specialty Start Date End Date Gulshan Mena DO [address] [place] [address] PCP - General 05/11/16 documented as of this encounter
--- OUTSIDE RECORDS SUMMARY | 2024-02-12 05:08 | XMS_ITS | Encounter Summary ---
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
--- OUTSIDE RECORDS SUMMARY | 2024-02-12 05:08 | XMS_ITS | Encounter Summary ---
Author Organization [facility] Healthcare Address [address] [place] [address] Care Team Providers Care Carton Maker Name Role Phone Unavailable Primary Care Provider Unavailabl e Encounter Details Date Type Department Care Team (Late st Contact Info) Description 10/31/2009 6:54 AM CDT - 11/03/2009 2:56 PM CDT Hospital [place] [address] [address] Epilepsy (HCC); Other encephalopathy; Mental retardation Social History Tobacco Use Types Packs/Day Years Used Date Smoking Tobacco: Never Assessed Sex and Gender Information Value Date Recorded Sex Assigned at Not on file 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
--- OUTSIDE RECORDS SUMMARY | 2024-02-12 05:08 | XMS_ITS | Encounter Summary ---
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
--- OUTSIDE RECORDS SUMMARY | 2024-02-12 05:08 | XMS_ITS | Encounter Summary ---
Author Organization [facility] Healthcare Address [address] [place] [address] Care Team Providers Care Mountain Or Glacier Guide Name Role Phone Unavailable Primary Care Provider Unavailabl e Encounter Details Date Type Department Care Team (Late st Contact Info) Description 07/14/2008 8:58 AM CDT - 07/15/2008 1:01 PM CDT Hospital Encounter [facility] Joe Ku, DMD [address] [place] [address] Disturbances in tooth eruption; Dental caries; Active autistic disorder; Attention deficit disorder with hyperactivity; Epilepsy (HCC) Social History Tobacco Use Types Packs/Day Years Used Date Smoking Tobacco: Never Assessed Sex and Gender Information Value Date Recorded Sex Assigned at Not on file 

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
--- OUTSIDE RECORDS SUMMARY | 2024-02-12 05:12 | XMS_ITS | Encounter Summary ---
Author Organization [facility] Address [address] Miguel: Epic Prelude ADT [place] [address] Care Team Providers Care Grad Intern Name Role Phone Gulshan Mena DO Primary Care Provider [phone] Encounter Details Date Type Department Care Team (Latest Contact Info) Description 12/28/2023 Travel Social History Tobacco Use Types Packs/Day Years Used Date Smoking Tobacco: Never Smokeless Tobacco: Never Alcohol Use Standard Drinks/Week Comments No 0 (1 standard drink = 0.6 oz pur e alcohol) Feeling Safe Answer Date Recorded Are you in a relationship wi th someone who hurts you emotionally and/or physically? No 12/28/2023 Food Insecurity Answer Date Recorded Social/Environmental Concerns [...] on filedocumented in this encounter Care Teams Grad Intern Relationship Specialty Start Date End Date Gulshan Mena DO [address] [place] [address] PCP - General 01/26/15 documented as of this encounter
--- OUTSIDE RECORDS SUMMARY | 2024-02-12 05:12 | XMS_ITS | Encounter Summary ---
Author Organization [employer] Address [address] [place] [address] Care Team Providers Care Shoulder Sawyer Name Role Phone Gulshan Mena DO Primary Care Provider [phone] Encounter Details Date Type Department Care Team (Late st Contact Info) Description 12/16/2023 External Device Data [place] ABSTRACTION Provider, Abstract NO ADDRESS ON FILE Social History Tobacco Use Types Packs/Day Years Used Date Smoking Tobacco: Never Smokeless Tobacco: Never Alcohol Use Standard Drinks/Week Comments No 0 (1 standard drink = 0.6 oz pur e alcohol) Feeling Safe Answer Date Recorded Are you in a relationship wi th someone who hurts you emotionally and/or physically? No 11/29/2023 Food Insecurity Answer Date Recorded Social/Environmental Concerns [...] on filedocumented in this encounter Care Teams Shoulder Sawyer Relationship Specialty Start Date End Date Gulshan Mena DO [address] [place] [address] PCP - General 01/26/15 documented as of this encounter
--- OUTSIDE RECORDS SUMMARY | 2024-02-12 05:12 | XMS_ITS | Encounter Summary ---
Author Organization [facility] Address [address] [place] [address] Care Team Providers Care Insurance Agency Manager Name Role Phone Gulshan Mena DO Primary Care Provider [phone] Reason for Visit * Reason Onset Date Comments Letter for School/Work 12/23/2023 Encounter Details Date Type Department Care Team (Late st Contact Info) Description 12/23/2023 Telephone [facility] Tra[facility] Surgery [address] [place] [address] Henok Artis MD [address] [facility] [facility] [place] [address] Letter for School/Work Social History Tobacco Use Types Packs/Day Years [...] encounter Miscellaneous Notes * Telephone Encounter - Sindy Dye CMA - 12/23/2023 11:43 AM [facility] Emmy phoned to get a letter for patient to be able to return to normal activities, such as swimming and his regular day program. Patient was restricted to no lifting more than 10 pounds at last visit, will include in letter. [facility] documented in this encounter Plan of Treatment Not on file documented as of this encounter Visit Diagnoses Not on filedocumented in this encounter Care Teams Insurance Agency Manager Relationship Specialty Start Date End Date Gulshan Mena DO [address] [place] [address] PCP - General 01/26/15 documented as of this encounter
--- OUTSIDE RECORDS SUMMARY | 2024-02-12 05:12 | XMS_ITS | Clinical Summary ---
Author Organization [email or web address] [facility] Address [address] [facility] [place] [address] Phone Care Team Providers Care Receiver Name Role Phone Gulshan Mena DO Primary Care Provider [phone] Allergies Active Allergy Reactions Criticality Noted Date Comments Amoxicillin Hives High 12/19/2009 Carbamazepine Other (See Comments) High 12/19/2009 tremors Penicillins Hives High Phenytoin Sodium Rash,Nausea and Vomiting Low 12/19 Medications Medication Sig Dispensed Refills Start Date End Date Status lamoTRIgine (LaMICtal) 150 mg tablet Take 300 mg by mouth 2 times daily. Active docusate sodium (COLACE) 100 mg Oral capsule Take 100 mg by mouth 2 times daily. Active lacosamide (VIMPAT) 100 mg tablet Take 200 mg by mouth 2 times daily . Active busPIRone (BUSPAR) 10 mg Oral tablet Take 10 mg by mouth 3 times daily. Active LACTOSE-FREE FOOD (ENSURE ORAL) Take by mouth 1 time daily as needed. Active ergocalciferol (VITAMIN D2) 50,000 unit capsule Take 50,000 Units by mouth every 7 days Saturday. Active multivitamin (DAILY-KALYN) tablet Take 1 Tab by mouth daily. Active acetaminophen (TYLENOL) 325 mg tablet Take 2 Tabs by mouth every 4 hours as needed for Pain. 60 Tab 0 10/27/2013 Active bisacodyl (DULCOLAX) 5 mg Delayed Release tablet Take 10 mg by mouth 1 time daily as needed for Constipation. Active GUAIFENESIN (MUCINEX ORAL) Take 400 mg by mouth Every 4-6 hours PRN . Active Zonisamide (ZONEGRAN) 100 mg capsuleIndications:A T HS Take 400 mg by mouth 2 times daily. Active magnesium hydroxide (MILK OF MAGNESIA) 400 mg/5 mL suspension Take 30 mL by mouth 1 time daily as needed for Constipation. Active diazePAM (Valtoco) 10 mg/spray (0.1 mL) [place], Non-Aerosol Administer 10 mg in each nostril 1 time daily as needed for Seizures. 01/09/2022 Active cloBAZam (ONFI) 10 mg Tablet Take 20 mg by mouth daily at bedtime. Active famotidine (PEPCID) 20 mg tablet Take 20 mg by mouth 2 times daily. Active lamoTRIgine (LaMICtal) 150 mg tablet Take 150 mg by mouth daily after lunch. Active diphenhydrAMINE (Banophen) 25 mg capsule Take 25 mg by mouth every 6 hours as needed for Allergies or Itching. Active hydrOXYzine HCL (ATARAX) 25 mg tablet Take 25 mg by mouth 3 times daily as needed for Itching. Active loratadine (CLARITIN) 10 mg tablet Take 10 mg by mouth 1 time daily as needed for Allergies. Active cloNIDine HCL (CATAPRES) 0.3 mg tablet Take 1 Tablet (0.3 mg) by mouth late in the day. 11/28/2023 Active propranoloL (INDERAL LA) 160 mg Long Acting 24 hour capsule Take 160 mg by mouth daily. 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 Development delay 10/14/2013 Autism 10/14/2013 ADHD (attention deficit hyperactivity disorder) 10/14/2013 Encounters Date Type Department Care Team Description 02/08/2024 9:26 PM HAT MODEL - 02/11/2024 10:23 AM HAT MODEL Hospital Encounter [facility] [address] [place] [phone] Daniel Cid DO Long, Robert Nathan, MD Husain, Ali, MD Austin, Karen, MD Seizure disorder Discharge Disposition: Home or Self Care 02/07/2024 8:11 PM HAT MODEL - 02/08/2024 1:50 AM [facility] Emergency Department [address] [place] [phone] Bulmaro Hoff MD 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 (Primary Dx); Seizure disorder, complex partial, with intractable epilepsy Discharge Disposition: Home or Self Care 02/07/2024 Travel 02/01/2024 9:54 AM HAT MODEL - 02/01/2024 3:16 PM [facility] Emergency Department [address] [place] [phone] Juany Hu MD Breakthrough seizure (Primary Dx) Discharge Disposition: Another type of healthcare institution not defined elsewhere 02/01/2024 Travel 01/14/2024 External Device Data ST[facility] ABSTRACTION Provider, Abstract 01/07/2024 9:27 PM HAT MODEL - 01/10/2024 4:00 PM [facility]science [address] [place] [phone] Darius Sanchez MD Long, Robert Nathan, MD Khan, Mafaza, MD Garri, Mikael, MD Seizure disorder, complex partial, with intractable epilepsy Discharge Disposition: Home or Self Care 12/28/2023 8:53 PM HAT MODEL - 12/28/2023 11:39 PM [facility] Emergency Department [address] [place] [phone] Darius Sanchez MD Seizure (Primary Dx) Discharge Disposition: Home or Self Care 12/28/2023 Travel 12/23/2023 8:54 PM HAT MODEL - 12/24/2023 12:50 AM [facility] Emergency Department [address] [place] [address] Dereck Perez MD Seizure (Primary Dx) Discharge Disposition: Home or Self Care 12/23/2023 Telephone [facility] Tra[facility] General Surgery [address] [address] Henok Artis MD Letter for School/Work 12/16/2023 External Device Data STL ABSTRACTION Provider, Abstract 12/04/2023 10:00 AM CDT Office Visit [facility] Tra[facility] and General Surgery [address] [phone] Henok Artis MD Postoperative follow-up (Primary Dx) 11/29/2023 2:30 PM CDT - 11/29/2023 10:38 PM CDT Emergency [facility] Emergency Department [address] [place] [address] Juany Hu MD Breakthrough seizure (Primary Dx); Nonintractable epilepsy without status epilepticus, unspecified epilepsy type Discharge Disposition: Home or Self Care 11/29/2023 Travel 11/19/2023 External Device Data STL ABSTRACTION Provider, Abstract 11/19/2023 External Device Data STL ABSTRACTION Provider, Abstract 11/19/2023 External Device Data STL ABSTRACTION Provider, Abstract 11/16/2023 3:31 PM CDT Anesthesia Event [facility] Operating Room [address] [place] [address] Olga Walters MD Simeon, Rudy M, MD 11/16/2023 12:48 PM CDT - 11/16/2023 3:14 PM CDT Surgery [facility] [address] [place] [address] Henok Artis MD CHOLECYSTECTOMY LAPAROSCOPIC 11/14/2023 Travel 11/13/2023 6:02 PM CDT - 11/28/2023 9:40 PM CDT Hospital Encounter [facility] Medicine [address]B [address] [place] [address] Gilberto Nettles DO Nuspl, Kara Elise, DO PaulaYaima MD Freie, Jordan A, MD Dundoo, Gayathri, MD Gravely, Sean Eric, DO Chinnasamy, Ramya, MD Acute calculous cholecystitis Discharge Disposition: Intermediate Care Facility from Last 3 Months Family History Medical History Relation Name Comments Healthy Brother 1 MERRILL Healthy Brother 2 EDWIGE Other Father PSYCHIATRIC ISS UES Cancer Maternal Grandfather PERHAPS KIDNEY OR LIVER Diabetes Maternal Grandfather High Cholesterol Maternal Grandfather Hypertension Maternal Grandfather Hypertension Maternal Grandmother Other Mother SANDOR MS Diabetes Paternal Grandmother Hypertension Paternal Grandmother Healthy Sister 1 CRISTOBAL Healthy Sister 2 YOBANY Relation Name Status Comments Brother 1 MERRILL Alive Brother 2 EDWIGE Alive Father Alive Maternal Grandfather Maternal Grandmother Alive Mother SANDOR Alive Paternal Grandmother Alive Sister 1 CRISTOBAL Alive Sister 2 YOBANY Alive Social History Tobacco Use Types Packs/Day Years Used Date Smoking Tobacco: Never Smokeless Tobacco: Never Tobacco Cessation:Counseling Given: Not Answered Alcohol Use Standard Drinks/Week Comments No 0 (1 standard drink = 0.6 oz pur e alcohol) Feeling Safe Answer Date Recorded Are you in a relationship wi th someone who hurts you emotionally and/or physically? No 02/09/2024 Food Insecurity Answer Date Recorded Social/Environmental Concerns [...] Sign Reading Time Taken Comments Blood Pressure 123/72 02/11/2024 4:51 AM HAT MODEL Pulse 90 02/11/2024 4:51 AM HAT MODEL Temperature 36.2 ??C (97.1 ??F) 02/11/2024 4:51 AM CS T Respiratory Rate 18 02/11/2024 4:51 AM HAT MODEL Oxygen Saturation 97% 02/11/2024 4:51 AM HAT MODEL Inhaled Oxygen Concentration - - Weight 72.9 kg (160 lb 11.5 oz) 12:02 AM HAT MODEL Height 170.2 cm (5' 7 ) 02/09/2024 12:0 2 AM HAT MODEL Body Mass Index 25.17 02/09/2024 12:02 AM HAT MODEL Plan of Treatment Health Maintenance Due Date Last Done Comments Pre-Diabetes and Diabetes Screening 1986 DTAP/TDAP/TD VACCINES (1 - Tdap) 2005 HEPATITIS B VACCINES (1 of 3 - 19+ 3-dose series) 2005 INFLUENZA VACCINE (#1) 2023 HPV VACCINES Aged Out No longer eligi ble based on patient's age to complete this topic PNEUMOCOCCAL VACCINE 0-64 YEARS Aged Out No longer eligible based on patient's age to complete this topic Medical Devices Implanted Type Area Cath Lab Device Identifier Shelf Expiration Date Model / Serial / Lot Agent Hemostat Surgicel 4x8in 2s - [id number] Implanted:Qty : 1 on 11/16/2023 by Jewels Hermosillo MD at [facility] Hemostatic N/A: Abdomen J&J- [employer] 03/13/2028 1952S / / [id number] Agent Hemostat Surgicel 4x8in - Sna Implanted:Qty : 1 on 11/16/2023 by Jewels Hermosillo MD at [facility] Hemostatic N/A: Abdomen J&J- [employer] 03/13/20282S / NA / [id number] Hemostatic Surgiflo 8ml W/ Thrombin 2993 - Sna Implanted:Qty : 1 on 11/16/2023 by Henok Artis MD at [facility] Hemostatic N/A: Abdomen J[employer]J- [employer] 05/11/2024 2994 / NA / [id number] Description:it s a kit Agent Hemostat Surgicel 4x8in - Sna Implanted:Qty : 1 on 11/16/2023 by Henok Artis MD at [facility] Hemostatic N/A: Abdomen J&J- [employer] [id number] 02/11/2028 1952S / NA / [id number] Lead Vns Therapy 2mm 303-20 - [id number] Implanted:Qty : 1 on 10/27/2013 by Hieu Macias MD at [facility] Lead Left: Chest [employer] 09/10/2017 303-20 / [id number] / Generator Vns 105 - [id number] Implanted:Qty : 1 on 10/27/2013 by Hieu Macias MD at [facility] Neuro Left: Chest [employer] 08/11/2015 105 / [id number] / Procedures Procedure Name Priority Date/Time Associated Diagnosis Comments PROLACTIN Stat 02/08/2024 9:44 PM HAT MODEL BASIC METABOLIC PANEL Stat 02/08/2024 9:44 PM HAT MODEL CBC WITH DIFFERENTIAL Stat 02/08/2024 9:44 PM HAT MODEL POC ELECTROLYTES/BMP Stat 02/07/2024 10:04 PM HAT MODEL CBC WITH DIFFERENTIAL Stat 02/07/2024 8:51 PM HAT MODEL COMPREHENSIVE METABOLIC PANEL Stat 02/07/2024 8:51 PM HAT MODEL LAMOTRIGINE LEVEL Stat 02/01/2024 10:41 AM HAT MODEL LACOSAMIDE LEVEL Stat 02/01/2024 10:41 AM HAT MODEL COMPREHENSIVE METABOLIC PANEL Stat 02/01/2024 10:41 AM HAT MODEL CBC WITH DIFFERENTIAL Stat 02/01/2024 10:41 AM HAT MODEL URINALYSIS W/REFLEX MICROSCOPIC Stat 01/08/2024 1:42 PM HAT MODEL PURCHASING DEPARTMENT CLERK EVALUATE AND TREAT Routine 10:[address] HEAD WO CONTRAST Stat 01/07/2024 11:28 PM HAT MODEL RESPIRATORY PATHOGEN PCR PANEL Stat 01/07/2024 10:32 PM HAT MODEL ZONISAMIDE LEVEL Stat 01/07/2024 10:11 PM HAT MODEL LAMOTRIGINE LEVEL Stat 01/07/2024 10:11 PM HAT MODEL MAGNESIUM LEVEL Stat 01/07/2024 10:11 PM HAT MODEL COMPREHENSIVE METABOLIC PANEL Stat 01/07/2024 10:11 PM HAT MODEL CBC WITH DIFFERENTIAL Stat 01/07/2024 10:11 PM HAT MODEL EKG 12-LEAD Stat 01/07/2024 9:33 PM HAT MODEL LAMOTRIGINE LEVEL Stat 12/28/2023 9:0 6 PM HAT MODEL PHOSPHORUS Stat 12/28/2023 9:06 PM HAT MODEL MAGNESIUM LEVEL Stat 12/28/2023 9:06 PM HAT MODEL COMPREHENSIVE METABOLIC PANEL Stat 12/28/2023 9:06 PM HAT MODEL CBC WITH DIFFERENTIAL Stat 12/28/2023 9:06 PM HAT MODEL PROLACTIN Stat 12/23/2023 10:05 PM HAT MODEL COMPREHENSIVE METABOLIC PANEL Stat 12/23/2023 10:05 PM HAT MODEL CBC WITH DIFFERENTIAL Stat 12/23/2023 10:05 PM HAT MODEL C-REACTIVE PROTEIN Stat 11/29/2023 3: 09 PM CDT LAMOTRIGINE LEVEL Stat 11/29/2023 3:0 9 PM CDT COMPREHENSIVE METABOLIC PANEL Stat 11/29/2023 3:09 PM CDT CBC WITH DIFFERENTIAL Stat 11/29/2023 3:09 PM CDT EEG 24 HOUR Routine 11/26/2023 8:02 AM CDT DIFFERENTIAL, MANUAL Routine 11/25/2023 6:16 AM CDT BASIC METABOLIC PANEL Routine 11/25/2023 6:16 AM CDT CBC WITH DIFFERENTIAL Routine 11/25/2023 6:16 AM CDT URINALYSIS W/REFLEX MICROSCOPIC Routine 11/25/2023 6:16 AM CDT URINE CULTURE Routine 11/25/2023 6:[address] HEAD WO CONTRAST Stat 11/24/2023 7 :49 PM CDT BLOOD GAS ARTERIAL Routine 11/24/2023 6: 42 PM CDT DIFFERENTIAL, MANUAL Routine 11/24/2023 6:41 PM CDT MAGNESIUM LEVEL Routine 11/24/2023 6:41 PM CDT BASIC METABOLIC PANEL Routine 11/24/2023 6:41 PM CDT CBC WITH DIFFERENTIAL Routine 11/24/2023 6:41 PM CDT LACTIC ACID Stat 11/24/2023 6:41 PM CDT PROLACTIN Routine 11/24/2023 6:41 PM CDT POC GLUCOSE Routine 11/24/2023 6:17 PM CDT BLOOD CULTURE Routine 11/24/2023 1:56 PM CDT BLOOD CULTURE Routine 11/24/2023 1:56 PM CDT BLOOD CULTURE Routine 11/24/2023 1:56 PM CDT BLOOD CULTURE Routine 11/24/2023 1:56 PM CDT XR CHEST PA OR AP 1 VW Routine 11:12 AM CDT DIFFERENTIAL, MANUAL Routine 11/24/2023 5:08 AM CDT CBC WITH DIFFERENTIAL Routine 11/24/2023 5:08 AM CDT DIFFERENTIAL, MANUAL Routine 11/23/2023 6:18 AM CDT CBC WITH DIFFERENTIAL Routine 11/23/2023 6:18 AM CDT DIFFERENTIAL, MANUAL Routine 11/22/2023 6:11 AM CDT BASIC METABOLIC PANEL Routine 11/22/2023 6:11 AM CDT CBC WITH DIFFERENTIAL Routine 11/22/2023 6:11 AM CDT HEMOGLOBIN AND HEMATOCRIT Routine 11/21/2023 12:21 PM CDT CTA CHEST W WO CONTRAST Pending Discharge 11/21/2023 10:16 AM CDT DIFFERENTIAL, MANUAL Routine 11/21/2023 5:54 AM CDT CBC WITH DIFFERENTIAL Routine 11/21/2023 5:54 AM CDT COMPREHENSIVE METABOLIC PANEL Routine 11/21/2023 5:54 AM CDT BLOOD GAS ARTERIAL Stat 11/20/2023 2: 48 PM CDT XR CHEST PA OR AP 1 VW Pending Discharge 11/20/2023 12:54 PM CDT CBC WITH DIFFERENTIAL Routine 11/20/2023 3:38 AM CDT COMPREHENSIVE METABOLIC PANEL Routine 11/20/2023 3:38 AM CDT CBC WITH DIFFERENTIAL Routine 11/19/2023 6:10 AM CDT COMPREHENSIVE METABOLIC PANEL Routine 11/19/2023 6:10 AM CDT URINALYSIS W/REFLEX MICROSCOPIC Stat 11/18/2023 1:39 PM CDT C-REACTIVE PROTEIN Routine 11/18/2023 4: 35 AM CDT CBC WITH DIFFERENTIAL Routine 11/18/2023 4:35 AM CDT COMPREHENSIVE METABOLIC PANEL Routine 11/18/2023 4:35 AM CDT ECHOCARDIOGRAM W/ CONTRAST AGENT Routine 11/17/2023 6:00 AM CDT C-REACTIVE PROTEIN Routine 11/17/2023 5: 03 AM CDT PHOSPHORUS Routine 11/17/2023 5:03 AM CDT MAGNESIUM LEVEL Routine 11/17/2023 5:03 AM CDT COMPREHENSIVE METABOLIC PANEL Routine 11/17/2023 5:03 AM CDT BLOOD CULTURE Routine 11/17/2023 5:03 AM CDT BLOOD CULTURE Routine 11/17/2023 5:03 AM CDT CBC WITH DIFFERENTIAL Routine 11/17/2023 4:55 AM CDT BLOOD CULTURE Routine 11/17/2023 4:55 AM CDT BLOOD CULTURE Routine 11/17/2023 4:[address] SINUS FACIAL BONES W CONTRAST Routine 11/17/2023 3:46 AM CDT CBC WITH DIFFERENTIAL Routine 11/16/2023 11:59 PM CDT PATHOLOGY Pathology 11/16/2023 6:26 PM CDT WA ANES INSERT ENDOTRACHEAL AIRWAY Routine 11/16/2023 3:59 PM CDT WA CHOLECSTOT/CHOLECSTOST W/EXPL DRG/RMVL ST1 SPX 11/16/2023 12:48 PM CDT WA LAPAROSCOPY SURG CHOLECYSTECTOMY 11/16/2023 12:48 PM CDT CBC WITH DIFFERENTIAL Routine 11/16/2023 3:53 AM CDT COMPREHENSIVE METABOLIC PANEL Routine 11/16/2023 3:53 AM CDT NM HEPATOBILIARY SCAN Stat 11/15/2023 10:30 AM CDT C-REACTIVE PROTEIN Routine 11/15/2023 3: 17 AM CDT CBC WITH DIFFERENTIAL Routine 11/15/2023 3:17 AM CDT COMPREHENSIVE METABOLIC PANEL Routine 11/15/2023 3:17 AM CDT BLOOD GAS VENOUS Routine 11/14/2023 7:28 PM CDT LACTIC ACID Stat 11/14/2023 5:23 PM CDT CBC WITH DIFFERENTIAL Stat 11/14/2023 3:44 AM CDT COMPREHENSIVE METABOLIC PANEL Stat 11/14/2023 3:44 AM CDT TROPONIN 6 HR, 5TH GEN Stat 4 3:44 AM CDT C-REACTIVE PROTEIN Stat 11/13/2023 10:25 PM CDT TROPONIN 2 HR, 5TH GEN Timed Study 10:[address] CHEST ABDOMEN PELVIS WO CONT Stat 11/13/2023 8:39 PM CDT POC LACTIC ACID Stat 11/13/2023 6:57 PM CDT LIPASE Stat 11/13/2023 6:51 PM CDT PROLACTIN Stat 11/13/2023 6:51 PM CDT TROPONIN BASELINE, 5TH GEN Stat 11/13/2023 6:51 PM CDT BRAIN NATRIURETIC PEPTIDE, BNP OR PROBNP Stat 11/13/2023 6:51 PM CDT COMPREHENSIVE METABOLIC PANEL Stat 11/13/2023 6:51 PM CDT CBC WITH DIFFERENTIAL Stat 11/13/2023 6:51 PM CDT BLOOD CULTURE PATHOGEN PCR PANEL Routine 11/13/2023 6:51 PM CDT BLOOD CULTURE Stat 11/13/2023 6:51 PM CDT BLOOD CULTURE Stat 11/13/2023 6:51 PM CDT BLOOD CULTURE Stat 11/13/2023 6:51 PM CDT BLOOD CULTURE Stat 11/13/2023 6:51 PM CDT EKG 12-LEAD Stat 11/13/2023 6:26 PM CDT RESPIRATORY PATHOGEN PCR PANEL Stat 11/13/2023 6:11 PM CDT from Last 3 Months Results * (ABNORMAL) CBC WITH DIFFERENTIAL (02/08/2024 9:44 PM HAT MODEL) Only the most recent of22 resultswithin the time period is included. Pathologist [facility] WBC 7.1 4.0 - 9.8 K/uL 02/08/2024 10:05 PM HAT MODEL [facility] RBC 4.17(L) 4.50 - 5.40 M/uL 02/08/2024 10:05 PM HAT MODEL [facility] HEMOGLOBIN 13.2(L) 13.6 - 16.5 g/dL 02/08/2024 10:05 PM [facility] HEMATOCRIT 37.3(L) 40.0 - 48.0 % 02/08/2024 10:05 PM HAT MODEL [facility] MCV 89.4 82.0 - 99.0 fL 02/08/2024 10:05 PM HAT MODEL [employer] MCH 31.7 27.2 - 32.6 pg 02/08/2024 10:05 PM HAT MODEL [facility] [facility] MCHC 35.4 31.5 - 35.5 g/dL 02/08/2024 10:05 PM HAT MODEL [facility] [facility] RDW 14.3 11.5 - 14.5 % 02/08/2024 10:05 PM [facility] RDW-STDEV 46.5 37.1 - 48.7 fL 02/08/2024 10:05 PM [facility] PLATELETS 201 140 - 350 K/uL 02/08/2024 10:05 PM [facility] MPV 9.5 9.3 - 12.4 fL 02/08/2024 10:05 PM [facility] NEUTROPHILS 57 % 02/08/2024 10:05 PM HAT MODEL [facility] [facility] [facility] LYMPHOCYTES 27 % 02/08/2024 10:05 PM [facility] MONOCYTES 11 % 02/08/2024 10:05 PM [facility] EOSINOPHILS 4 % 02/08/2024 10:05 PM HAT MODEL [facility] [facility] BASOPHILS 1 % 02/08/2024 10:05 PM HAT MODEL [facility] [facility] IMMATURE GRANULOCYTES 0 % 02/08/2024 10:05 PM HAT MODEL [facility] [facility] NEUTROPHIL ABSOLUTE 4.03 1.90 - 7.00 K/uL 02/08/2024 10:05 PM HAT MODEL [facility] [facility] LYMPHOCYTE ABSOLUTE 1.88 0.70 - 4.50 K/uL 02/08/2024 10:05 PM [facility] MONOCYTE ABSOLUTE 0.77 0.10 - 1.30 K/uL 02/08/2024 10:05 PM HAT MODEL [facility] EOSINOPHIL ABSOLUTE 0.30 0.00 - 0.70 K/uL 02/08/2024 10:05 PM HAT MODEL [facility] BASOPHILS ABSOLUTE 0.08 0.00 - 0.20 K/uL 02/08/2024 10:05 PM HAT MODEL [facility] IMMATURE GRANULOCYTES ABSOLUTE 0.02 0.00 - 0.03 K/uL 02/08/2024 10:05 PM [facility] Blood Venipuncture / Unknown 02/08/2024 9:44 PM HAT MODEL 02/08/2024 9:48 PM HAT MODEL Daniel Cid DO HEMATOLOGY ORDERABLE S [facility] CLIA# [id number] [address] [place], [place] [id number] * PROLACTIN (02/08/2024 9:44 PM HAT MODEL) Only the most recent of4 resultswithin the time period is included. PROLACTIN 5.0 4.0 - 15.2 ng/mL 02/08/2024 10:48 PM HAT MODEL [facility] Blood Venipuncture / Unknown 02/08/2024 9:44 PM HAT MODEL 02/08/2024 9:48 PM HAT MODEL Daniel Rowlandeo DO CHEMISTRY ORDERABLES [id number] [address] [place], [place] [address] * BASIC METABOLIC PANEL (02/08/2024 9:44 PM HAT MODEL) Only the most recent of4 resultswithin the time period is included. SODIUM 141 136 - 145 mmol/L 02/08/2024 10:48 PM HAT MODEL [facility] POTASSIUM 3.6 3.5 - 5.0 mmol/L 02/08/2024 10:48 PM HAT MODEL [facility] CHLORIDE 107 98 - 107 mmol/L 02/08/2024 10:48 PM [facility] CO2 23 22 - 29 mmol/L 02/08/2024 10:48 PM [facility] CALCIUM 9.9 8.6 - 10.2 mg/dL 02/08/2024 10:48 PM [facility] BUN 20 6 - 20 mg/dL 02/08/2024 10:48 PM [facility] CREATININE 0.87 0.67 - 1.17 mg/dL 02/08/2024 10:48 PM [facility] GLUCOSE 94 74 - 99 mg/dL 02/08/2024 10:48 PM [facility] GFR >60 >=60 mL/min/1.7 3 sq meter 02/08/2024 10:48 PM [facility] Comment:eGFR calculated with 2020 CKD-EPI equation. Vegetarian diet, extremely high or low muscle mass, and may affect results. Cystatin C with Glomerular Filtration Rate is a suitable alternative for these patients. ANION GAP 11 8 - 16 mmol/L 02/08/2024 10:48 PM [facility] [employer] [facility] Blood Venipuncture / Unknown 02/08/2024 9:44 PM HAT MODEL 02/08/2024 9:48 PM HAT MODEL Daniel Cid DO CHEMISTRY ORDERABLES [facility] [employer] [facility]# [id number] [address] [place] [id number] * POC ELECTROLYTES/BMP (02/07/2024 10:04 PM HAT MODEL) POTASSIUM POC 4.3 3.5 - 5.0 mmol/L 02/07/2024 10:04 PM [facility] COMMENT, BMP POC Responsible Clinical Caregiver notified 02/07/2024 10:04 PM [facility] [employer] [facility] Blood 02/07/2024 10:0 4 PM HAT MODEL 02/07/2024 10:05 PM HAT MODEL Bulmaro Hoff MD POINT OF CARE TESTIN G [facility]# [id number] [address] [facility] [place] [id number] * COMPREHENSIVE METABOLIC PANEL (02/07/2024 8:51 PM HAT MODEL) Only the most recent of15 resultswithin the time period is included. SODIUM 140 136 - 145 mmol/L 02/07/2024 9:51 PM HAT MODEL [facility] [facility] [facility] POTASSIUM 02/07/2024 9:51 PM HAT MODEL [facility] [facility] - [facility] Comment: Test cannot be performed. ??Sample hemolysis interference above limits. ??Redraw if indicated. ED team secure chatted at [id number] 107 98 - 107 mmol/L 02/07/2024 9:51 PM H[facility]DEL [employer] [facility]ORAT[facility] - [facility] CO2 22 22 - 29 mmol/L 02/07/2024 9:51 PM [facility] [employer] [employer] [facility]ORATORY [facility] - [facility] CALCIUM 9.7 8.6 - 10.2 mg/dL 02/07/2024 9:51 PM [facility] [employer] LABORATORY [facility] - . [facility] BUN 15 6 - 20 mg/dL 02/07/2024 9:51 PM [facility] [employer] LABORATORY SERVICES [facility] CREATININE 0.98 0.67 - 1.17 mg/dL 02/07/2024 9:51 PM [facility] [employer] [employer] LABORATORY SERVICES [facility]. [facility] GLUCOSE 93 74 - 99 mg/dL 02/07/2024 9:51 PM H[facility] [employer]DEL [employer] LABORATORY SERVICES [facility]. [facility] TOTAL PROTEIN 8.0 6.7 - 8.6 g/dL 02/07/2024 9:51 PM H[facility] MODEL [employer] LABORATORY SERVICES - . [facility] ALBUMIN 4.4 3.5 - 5.2 g/dL 02/07/2024 9:51 PM H[facility] [employer]DEL [employer] LABORATORY SERVICES - . [facility] BILIRUBIN TOTAL 0.4 0.3 - 1.2 mg/dL 02/07/2024 9:51 PM H[facility] MODEL [employer] LABORATORY SERVICES [facility] ALKALINE PHOSPHATASE 02/07/2024 9:51 PM [facility] Comment:Test cannot be perfo rmed. Sample hemolysis interference above limits. Redraw if indicated. AST 02/07/2024 9:51 PM [facility] Comment:Test cannot be perfo rmed. Sample hemolysis interference above limits. Redraw if indicated. ALT 02/07/2024 9:51 PM [facility] Comment:Test cannot be perfo rmed. Sample hemolysis interference above limits. Redraw if indicated. GFR >60 >=60 mL/min/1.7 3 sq meter 02/07/2024 9:51 PM [facility] Comment:eGFR calculated with 2020 CKD-EPI equation. Vegetarian diet, extremely high or low muscle mass, and may affect results. Cystatin C with Glomerular Filtration Rate is a suitable alternative for these patients. ANION GAP 11 8 - 16 mmol/L 02/07/2024 9:51 PM [facility] Blood Venipuncture / Unknown 02/07/2024 8:51 PM HAT MODEL 02/07/2024 8:57 PM HAT MODEL Narrative [facility] - 02/07/2024 9:51 PM HAT MODEL Samples containing indocyanine green cause interferences on Total and/or Direct Bilirubin and must not be measured. Bulmaro Hoff MD CHEMISTRY ORDERABLES [facility]# [id number] [address] [place] [address] [place] [address] * LACOSAMIDE LEVEL (02/01/2024 10:41 AM HAT MODEL) LACOSAMIDE 13.0 mcg/mL 02/06/2024 1:32 PM HAT MODEL [facility] Comment: (Note) Expected concentrations of Lacosamide in patients receiving recommended daily dosages: Up to 15.0 mcg/mL.Toxic range not established. This test was developed and its analytical performance characteristics have been determined by [employer]. It has not been cleared or approved by the FDA. This assay has been validated pursuant to the CLIA regulations and is used for clinical purposes. [facility] [address] [facility] [address] [employer] [address] Claudia Solo MD, PhD Blood Venipuncture / Unknown 02/01/2024 10:41 AM HAT MODEL 02/01/2024 10:44 AM HAT MODEL Narrative [facility] - 02/06/2024 1:32 PM HAT MODEL Performing Organization Information: ?Site ID: [id number] ?Name: [facility] ?Address: [address] [place] [address] [address], [address] [place] [address] ?Director: Claudia Solo MD,PhD Juany Hu MD CHEMISTRY ORDERA BLES [facility] [phone] * LAMOTRIGINE LEVEL (02/01/2024 10:41 AM HAT MODEL) Only the most recent of4 resultswithin the time period is included. LAMOTRIGINE LEVEL 11.1 2.5 - 15.0 mcg/mL 02/06/2024 1:32 PM HAT MODEL [facility] Comment: This test was developed and its analytical performance characteristics have been determined by [facility] [place]. It has not been cleared or approved by the U.S. Food and Drug Administration. This assay has been validated pursuant to the CLIA regulations and is used for clinical purposes. Blood Venipuncture / Unknown 02/01/2024 10:41 AM HAT MODEL 02/01/2024 10:44 AM HAT MODEL Narrative [facility] - 02/06/2024 1:32 PM HAT MODEL Performing Organization Information: ?Site ID: AMD ?Name: [facility] ?Address: [address] [place] [address] [place], [place] ?Director: Kwasi Pham M.D.,PhD Performing Organization Information: ?Site ID: AMD ?Name: [facility] ?Address: [address] [place] [address] [place] ?Director: Kwasi Pham M.D.,PhD Juany Hu MD CHEMISTRY ORDERA BLES [facility] [phone] * (ABNORMAL) URINALYSIS WITH REFLEX MICROSCOPIC (01/08/2024 1:42 PM HAT MODEL) Only the most recent of3 resultswithin the time period is included. COLOR UA Yellow Pale to Dark Yellow 01/08/2024 2:05 PM HAT MODEL [facility] LABORATORY SERVICES - [facility] CLARITY UA Cloudy(A) Clear 01/08/2024 2:05 PM HAT MODEL [facility] LABORATORY SERVICES - [facility] SPECIFIC GRAVITY UA 1.014 1.003 - 1.035 01/08/2024 2:05 PM HAT MODEL [facility] LABORATORY SERVICES - [facility] PH UA 7.0 5.0 - 8.0 01/08/2024 2:05 PM HAT MODEL [facility] LABORATORY SERVICES - [facility] LEUKOCYTE ESTERASE UA Negative Negative 01/08/2024 2:05 PM HAT MODEL [facility] LABORATORY SERVICES - [facility] NITRITE UA Negative Negative 01/08/2024 2:05 PM HAT MODEL [facility] LABORATORY SERVICES - [facility] PROTEIN UA Negative Negative 01/08/2024 2:05 PM HAT MODEL [facility] LABORATORY SERVICES - [facility] GLUCOSE UA Negative Negative 01/08/2024 2:05 PM HAT MODEL [facility] LABORATORY SERVICES - [facility] KETONES UA Negative Negative 01/08/2024 2:05 PM HAT MODEL [facility] LABORATORY SERVICES - [facility] UROBILINOGEN UA Normal <2.0 mg/dL 2:05 PM HAT MODEL [facility] LABORATORY SERVICES - [facility] BILIRUBIN UA Negative Negative 01/08/2024 2:05 PM HAT MODEL [facility] LABORATORY SERVICES - [facility] BLOOD UA Negative Negative 01/08/2024 2:05 PM HAT MODEL [facility] LABORATORY SERVICES - [facility] WBC UA 6-10(A) 0 - 2 /hpf 01/08/2024 2:05 PM HAT MODEL [facility] LABORATORY SERVICES - [facility] RBC UA 3-5(A) 0 - 2 /hpf 01/08/2024 2:05 PM HAT MODEL [facility] BACTERIA UA 1+(A) Negative /hpf 01/08/2024 2:05 PM [facility] AMORPHOUS CRYSTAL Present(A) Absent 01/08/2024 2:05 PM HAT MODEL [facility] Urine URINE SPECIMEN OBTAINED BY CLEAN CATCH PROCEDURE / Unknown Collection / Unknown 01/08/2024 1:42 PM HAT MODEL 01/08/2024 1:48 PM HAT MODEL Darius Sanchez MD URINE ORDERABLES [facility] CLIA# [id number] [address] [place] [address] * CT HEAD WO CONTRAST (01/07/2024 11:28 PM HAT MODEL) Only the most recent of2 resultswithin the time period is included. Anatomical Region Laterality Modality Head Computed Tomogra phy 01/07/2024 11:2 8 PM HAT MODEL Impressions 01/07/2024 11:33 PM HAT MODEL IMPRESSION: 1. ??No CT evidence of acute intracranial abnormality within the limitations of patient motion. 2. ??Mild cerebellar atrophy. DICTATION LOCATION: Location 4 Narrative 01/07/2024 11:[address] HEAD WO CONTRAST DATE: 01/07/2024 11:28 PM CLINICAL INDICATION: Seizure. COMPARISON: CT head without contrast 11/24/2023. TECHNIQUE: CT of the head was performed without the administration of intravenous contrast. The examination was performed with the adjustment of mA according to the patient size and/or the use of Iterative Reconstruction Technique. ?? FINDINGS: ?? No CT evidence of acute infarction, intracranial hemorrhage or mass lesion. The ventricles are normal without evidence of hydrocephalus. Mild prominence of the cerebellar folia suggests mild cerebellar atrophy. There are no extra-axial fluid collections. The visualized orbits are grossly unremarkable. Minimal paranasal sinus mucosal inflammatory changes. The mastoid air cells are clear. The visualized calvarium appears grossly intact. Procedure Note Tyshawn Lee DO - 01/07/2024 CT HEAD WO CONTRAST DATE: 01/07/2024 11:28 PM CLINICAL INDICATION: Seizure. COMPARISON: CT head without contrast 11/24/2023. TECHNIQUE: CT of the head was performed without the administration of intravenous contrast. The examination was performed with the adjustment of mA according to the patient size and/or the use of Iterative Reconstruction Technique. FINDINGS: No CT evidence of acute infarction, intracranial hemorrhage or mass lesion. The ventricles are normal without evidence of hydrocephalus. Mild prominence of the cerebellar folia suggests mild cerebellar atrophy. There are no extra-axial fluid collections. The visualized orbits are grossly unremarkable. Minimal paranasal sinus mucosal inflammatory changes. The mastoid air cells are clear. The visualized calvarium appears grossly intact. IMPRESSION: 1. No CT evidence of acute intracranial abnormality within the limitations of patient motion. 2. Mild cerebellar atrophy. DICTATION LOCATION: Location [address] ORDERABLES * RESPIRATORY PATHOGEN PCR PANEL (01/07/2024 10:32 PM HAT MODEL) Only the most recent of2 resultswithin the time period is included. Pathologist [facility] Respiratory Pathogen PCR Panel NOT DETECTED No respiratory pathogen nucleic acids detected. 01/07/2024 11:41 PM HAT MODEL [facility] COVID-19 PCR NOT DETECTED Not Detected 01/07/2024 11:41 PM HAT MODEL [facility] Upper Respiratory ENTIRE NASOPHARYNX / Unknown Collection / Unknown 01/07/2024 10:32 PM HAT MODEL 01/07/2024 10:38 PM HAT MODEL Narrative [facility] LABORATORY [facility] - 01/07/2024 11:41 PM HAT MODEL The Film Array Respiratory Panel (RP2.1) is a multiplex nucleic acid detection test for 22 targets. Viruses: Adenovirus Coronavirus HKU1, NL63, 229E, and OC43 COVID-19/Severe Acute Respiratory Syndrome Coronavirus 2 Influenza A with the following subtypes: H1, H1-2009, and H3 Influenza B Human Metapneumovirus Parainfluenza virus 1, 2, 3, and 4 Respiratory Syncytial virus (RSV) Rhinovirus/Enterovirus (cannot differentiate due to genetic similarities) Bacteria: Bordetella pertussis Bordetella parapertussis Chlamydophila pneumoniae Mycoplasma pneumoniae Darius Sanchez MD 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 - [facility] AL ORDERABLES [facility] CLIA# [id number] [address] [place] [address] * ZONISAMIDE LEVEL (01/07/2024 10:11 PM HAT MODEL) ZONISAMIDE, BLOOD 21.1 10.0 - 40.0 mcg/mL 01/13/2024 5:49 PM HAT MODEL [facility] Comment: (Note) This test was developed and its analytical performance characteristics have been determined by [employer]. It has not been cleared or approved by the FDA. This assay has been validated pursuant to the CLIA regulations and is used for clinical purposes. [facility] [address] [place] [address],[address] [place] [address] Claudia Solo MD, PhD Blood Venipuncture / Unknown 01/07/2024 10:11 PM HAT MODEL 01/07/2024 10:16 PM HAT MODEL Narrative [facility] - 01/13/2024 5:49 PM HAT MODEL Performing Organization Information: ?Site ID: [id number] ?Name: [facility] ?Address: [address] [place] [address], [address] [address] ?Director: Claudia Solo MD,PhD Darius Sanchez MD CHEMISTRY ORDERABLES [facility] [phone] * MAGNESIUM LEVEL (01/07/2024 10:11 PM HAT MODEL) Only the most recent of4 resultswithin the time period is included. MAGNESIUM 2.3 1.6 - 2.6 mg/dL 01/07/2024 10:59 PM HAT MODEL [facility] Blood Venipuncture / Unknown 01/07/2024 10:11 PM HAT MODEL 01/07/2024 10:16 PM HAT MODEL Darius Sanchez MD CHEMISTRY ORDERABLES Performing Organization Address [facility]/State/ZIP Co de Phone Number [facility] LABORATORY SERVICES [facility]# [id number] [address] [facility] [place] [address] * EKG 12-LEAD (01/07/2024 9:33 PM HAT MODEL) Only the most recent of2 resultswithin the time period is included. 01/07/2024 9:33 PM HAT MODEL Narrative INTERFACE SYSTEM - 01/08/2024 8:25 AM HAT MODEL ? [facility] ? [address] [facility] [place] [address] ? Test Date: ?2024-01-07 Pat Name: ? CURT RYDER ?Department: ?? 38 ? Room: ? 3348 Gender: ? Male ? 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 [email or web address] : ?1985 ? Requested By: DARIUS SANCHEZ ?? Order Number: [id number] ? Aixa AWAN: ?? Rob Almendarez ? Measurements Intervals ?Icard ? Rate: ? 74 ? P: ?13 WA: ? 174 ?QRS: ?7 QRSD: ? 101 ?T: ?8 QT: ? 387 ? QTc: ?430 ? Interpretive Statements Sinus rhythm Electronically Signed On 01-08-2024 8:25:08 HAT MODEL by Rob Almendarez Procedure Note Rob Almendarez MD - 01/08/2024 [facility] [address] [place] [address] Test Date: 2024-01-07 Pat Name: CURT RYDER Department: 38 Room: 3348 Gender: Male Automotive Professional: [email or web address] : 1985 Requested By: DARIUS SANCHEZ Order Number: [id number] Aixa MD: Rob Almendarez Measurements Intervals Icard Rate: 74 P: 13 WA: 174 QRS: 7 QRSD: 101 T: 8 QT: 387 QTc: 430 Interpretive Statements Sinus rhythm Electronically Signed On 01-08-2024 8:25:08 HAT MODEL by Rob Almendarez Darius Sanchez MD ECG ORDERABLES INTERFACE SYSTEM Refer to clinic/hospital department * PHOSPHORUS (12/28/2023 9:06 PM HAT MODEL) Only the most recent of2 resultswithin the time period is included. PHOSPHORUS 3.6 2.5 - 4.5 mg/dL 12/28/2023 10:02 PM HAT MODEL [facility] LABORATORY [facility] Blood Venipuncture / Unknown 12/28/2023 9:06 PM HAT MODEL 12/28/2023 9:08 PM HAT MODEL Darius Sanchez MD CHEMISTRY ORDERABLES Performing Organization Address [facility] Co de Phone Number [facility] CLNY# [id number] [address] [place] [address] * C-REACTIVE PROTEIN (11/29/2023 3:09 PM CDT) Only the most recent of5 resultswithin the time period is included. CRP 4.1 <5.0 mg/L 11/29/2023 4:16 PM CDT [facility] Blood Venipuncture / Unknown 11/29/2023 3:09 PM CDT 11/29/2023 3:18 PM CDT Juany Hu MD CHEMISTRY ORDERA BLES Performing Organization Address City/[facility]/ZIP Co de Phone Number [facility] CLIA# [id number] [address] [place] [address] * EEG 24 HOUR (11/26/2023 8:02 AM CDT) Narrative [facility] - 11/26/2023 8:02 AM CDT Raleigh Kaplan MD ? 11/26/2023 ??5:05 PM Video-EEG Report Patient Name: Curt Ryder [facility] Medical Record Number (MRN): [id number] Date of (): 1985 Start Time: 9:22 AM on 11/25/2023 ? End Time: 7 AM on 11/26/2023 Introduction: Mr. Ryder is a 38 y.o. male. Reason for the study: Developmental delay, seizure. This is a report of continuous video-EEG monitoring. High definition digital video and digital EEG were recorded continuously. Electrodes were placed following the 10/20 International System. EEG Description: As the recording began, the patient was seen on the video lethargic. The patient's background rhythm consisted of mild to moderate background slowing and disorganization. There were no focal, lateralized or epileptiform abnormalities. There were no clinical or electrographic events. The patient's EKG showed a sinus rhythm. The patient's video portion was simultaneously reviewed as appropriate with the EEG recording. Interpretation: No seizures were captured during the recording. The interictal EEG was abnormal due to background slowing and disorganization consistent with significant but nonspecific global cerebral dysfunction. Tomasa Kaplan MD Neurology Lyndon Reed Dashnoris NEUROLOGY ORDERABLE S [facility] * (ABNORMAL) MANUAL DIFFERENTIAL (11/25/2023 6:16 AM CDT) Only the most recent of6 resultswithin the time period is included. SEGMENTED NEUTROPHILS 61 % 11/25/2023 7:04 AM CDT [facility] LABORATORY SERVICES - . [facility] LYMPHOCYTES RELATIVE 24(L) 43 - 53 % 11/25/2023 7:04 AM CDT [facility] LABORATORY SERVICES - . [facility] ATYPICAL LYMPHOCYTES RELATIVE 5 0 - 5 % 11/25/2023 7:04 AM CDT [facility] LABORATORY SERVICES - . [facility] MONOCYTES RELATIVE 4 % 11/25/2023 7:04 AM CDT [facility] LABORATORY SERVICES - . [facility] EOSINOPHILS RELATIVE 3 % 11/25/2023 7:04 AM CDT [facility] LABORATORY SERVICES - . [facility] METAMYELOCYTES RELATIVE 2(H) <=0 % 11/25/2023 7:04 AM CDT [facility] LABORATORY SERVICES - . [facility] MYELOCYTES - REL (DIFF) 2(H) <=0 % 11/25/2023 7:04 AM CDT [facility] LABORATORY SERVICES - [facility] NEUTROPHILS ABSOLUTE COUNT 5.35 1.90 - 7.00 K/uL 11/25/2023 7:04 AM CDT [facility] LAB[facility]ATORY SERVICES - [facility] LYMPHOCYTES ABSOLUTE 2.08 0.70 - 4.50 K/uL 11/25/2023 7:04 AM T [facility]ATORY SERVICES - [facility] MONOCYTES ABSOLUTE 0.32 0.10 - 1.30 K/uL 11/25/2023 7:04 AM CDT [facility]ATORY SERVICES - [facility] EOSINOPHILS ABSOLUTE 0.24 0.00 - 0.70 K/uL 11/25/2023 7:04 AM T [facility]ATORY SERVICES - [facility] TOTAL CELLS COUNTED IN DIFF 109 11/25/2023 7:04 AM [facility] LABORATORY SERVICES - [facility] RBC MORPHOLOGY abnormal 11/25/2023 7:04 AM [facility] LABORATORY SERVICES - [facility] PLATELET EST. Consistent w Count 11/25/2023 7:04 AM T [facility] - [facility] ANISOCYTOSIS 2+ /hpf 11/25/2023 7:04 AM T [facility] - [facility] MACROCYTES 1+ /hpf 11/25/2023 7:04 AM T [facility] SERVICES - [facility] POLYCHROMASIA 2+ /hpf 11/25/2023 7:04 AM [facility] LABORATORY SERVICES - [facility] Blood Venipuncture / Unknown 11/25/2023 6:16 AM CDT 11/25/2023 6:21 AM CDT Yaima Mitchell MD HEMATOLOGY ORDERABLE S COM [facility] [id number] [address] [facility] [address] [address] * URINE CULTURE (11/25/2023 6:16 AM CDT) CULTURE No growth at 24 hours 11/26/2023 7:11 AM T [facility] - [facility] Urine URINE SPECIMEN OBTAINED BY CLEAN CATCH PROCEDURE / Unknown Collection / Unknown 11/25/2023 6:16 AM CDT 11/25/2023 6:40 AM CDT Lyndon Gupta DO 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 - GENE RAL ORDERABLES [facility] LABORATORY SERVICES [facility] CLIA# [id number] [address] [place] [address] * (ABNORMAL) BLOOD GAS ARTERIAL (11/24/2023 6:42 PM CDT) Only the most recent of2 resultswithin the time period is included. PH ARTERIAL 7.39 7.35 - 7.45 11/24/2023 6:58 PM CDT [facility] LABORATORY SERVICES [facility] PCO2 ARTERIAL 37 35 - 48 mm Hg 11/24/2023 6:58 PM CDT [facility] LABORATORY SERVICES [facility] PO2 ARTERIAL 89 83 - 108 mm Hg 11/24/2023 6:58 PM T [facility] LAB[facility] HCO3 ARTERIAL 22 22 - 26 mmol/L 11/24/2023 6:58 PM CDT [facility] LABORATORY SERVICES [facility] BASE EXCESS ABG -2.3(L) -2.0 - 3.0 mmol/L 11/24/2023 6:58 PM CDT [facility] LABORATORY SERVICES [facility] O2 SAT EST ARTERIAL 98 95 - 99 % 11/24/2023 6:58 PM T [facility] LABORATORY SERVICES [facility] P/F RATIO ARTERIAL 424 11/24/2023 6:58 PM T [facility] LABORATORY SERVICES [facility] OXYGEN MODE Room Air 11/24/2023 6:58 PM T [facility] LABORATORY SERVICES [facility] FIO2 21.0 21.0 - 100.0 % 11/24/2023 6:58 PM T [facility] LABORATORY SERVICES [facility] Blood, arterial Arterial / Unknown 2023 6:42 PM CDT 11/24/2023 6:47 PM CDT Chely L Elías [employer] OPERATOR ABG ORDERABLES [facility] LABORATORY [facility]# [id number] [address] [place] [address] * LACTIC ACID (11/24/2023 6:41 PM CDT) Only the most recent of2 resultswithin the time period is included. Pathologist [facility] LACTIC ACID 1.2 <=2.0 mmol/L 11/24/2023 7:12 PM CDT [facility] Blood Venipuncture / Unknown 11/24/2023 6:41 PM CDT 11/24/2023 6:47 PM CDT Chely Mckinley [employer] OPERATOR CHEMISTRY ORDERABLES Performing Organization Address [facility]/State/ZIP Co de Phone Number [facility]# [id number] [address] [place] [address] * (ABNORMAL) POC GLUCOSE (11/24/2023 6:17 PM CDT) [facility] GLUCOSE POC 112(H) 74 - 99 mg/dL 11/24/2023 6:17 PM CDT [facility] SPECIMEN SOURCE, GLUCOSE POC Whole Blood 11/24/2023 6:17 PM CDT [facility] Blood, whole 11/24/2023 6:17 PM CDT 11/24/2023 6:25 PM CDT Lyndon Gupta DO POINT OF CARE TESTI NG [facility]# [id number] [address] [place] [address] * BLOOD CULTURE (11/24/2023 1:56 PM CDT) Only the most recent of6 resultswithin the time period is included. [facility] BLOOD CULTURE No growth 11/29/2023 2:51 PM CDT [facility] Blood (Peripheral) Venipuncture / Unknown 11/24/2023 1:56 PM CDT 11/24/2023 1:59 PM CDT Lyndon Gupta DO 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 - GENE RAL ORDERABLES [facility] [employer] CLJOAO# [id number] [address] [place] [address] * XR CHEST PA OR AP 1 VW (11/24/2023 11:12 AM CDT) Only the most recent of2 resultswithin the time period is included. Anatomical Region Laterality Modality Chest Computed Radiogr aphy 11/24/2023 11:1 2 AM CDT Impressions 11/24/2023 3:22 PM CDT IMPRESSION: Decreased bibasilar opacities and right effusion. ?? DICTATION LOCATION: Location 4 Narrative 11/24/2023 3:22 PM CDT PORTABLE AP VIEW OF THE CHEST ?? DATE: 11/24/2023 11:12 AM HISTORY: Fever COMPARISON: 11/20/2023 FINDINGS: ?? Left chest vagal nerve stimulator is present. Lung volumes remain small with decreased bibasilar opacities. The heart size is normal. The right pleural effusion appears decreased. Procedure Note Skye Mark MD - 11/24/2023 PORTABLE AP VIEW OF THE CHEST DATE: 11/24/2023 11:12 AM HISTORY: Fever COMPARISON: 11/20/2023 FINDINGS: Left chest vagal nerve stimulator is present. Lung volumes remain small with decreased bibasilar opacities. The heart size is normal. The right pleural effusion appears decreased. IMPRESSION: Decreased bibasilar opacities and right effusion. DICTATION LOCATION: Location 4 Lyndon Gupta DO DIAGNOSTIC IMAGING ORDERABLES * (ABNORMAL) HEMOGLOBIN AND HEMATOCRIT (11/21/2023 12:21 PM CDT) HEMOGLOBIN 8.1(L) 13.6 - 16.5 g/dL 11/21/2023 12:37 PM CDT [facility] [employer] HEMATOCRIT 25.5(L) 40.0 - 48.0 % 11/21/2023 12:37 PM CDT [facility] LAB[facility] Blood Venipuncture / Unknown 11/21/2023 12:21 PM CDT 11/21/2023 12:29 PM CDT Jessica Angel MD HEMATOLOGY ORDERABLE S [facility] CLIA# [id number] [address] [place] [address] * CTA CHEST W WO CONTRAST (11/21/2023 10:16 AM CDT) Anatomical Region Laterality Modality Chest Computed Tomogra phy 11/21/2023 10:1 6 AM CDT Impressions 11/21/2023 10:38 AM CDT IMPRESSION: 1. ??No pulmonary embolus. 2. ??New small right pleural effusion. Bilateral lower lobe and right middle lobe atelectasis. 3. ??Right upper lobe pulmonary tree-in-bud opacities are likely infectious/inflammatory. 4. ??Interval cholecystectomy. DICTATION LOCATION: Location 1 - [facility] Narrative 11/21/2023 10:38 AM CDT EXAMINATION: Computed tomography angiography (CTA) of the chest without and with intravenous contrast with reformatted images DATE: 11/21/2023 10:16 AM HISTORY: Pulmonary embolism (PE) suspected, high prob. 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 ?? TECHNIQUE: CTA of the chest was performed prior to and following the uneventful intravenous administration of IOPAMIDOL 61 % INTRAVENOUS SOLUTION (MULTI-DOSE BULK PACK) Given:80 mL contrast according to standard protocol. 3-D reconstructions were created on a separate workstation by a certified ophthalmic technologist and submitted for review. The examination was performed with the adjustment of mA according to the patient size and/or the use of Iterative Reconstruction Technique. ?? COMPARISON: 11/13/2023 FINDINGS: Vascular: There is adequate opacification of the pulmonary arteries. No evidence of pulmonary embolus. The aorta and main pulmonary artery normal in caliber. Mild coronary artery atherosclerosis. Chest: LUNGS: New small right pleural effusion. Complete right lower lobe atelectasis. Partial left lower lobe and right middle lobe atelectasis. Patchy opacification of the left lower lobe bronchi with mucous/debris. No pneumothorax. Right upper lobe tree-in-bud opacities are new. HEART/VESSELS: Normal heart size without a pericardial effusion. ?? MEDIASTINUM/RADHA: Within normal limits. CHEST WALL/LOWER NECK: Left chest electronic device and left neck lead are partially imaged. UPPER ABDOMEN: Interval cholecystectomy. OSSEOUS: ??Within normal limits Procedure Note Joe Hall MD - 11/21/2023 EXAMINATION: Computed tomography angiography (CTA) of the chest without and with intravenous contrast with reformatted images DATE: 11/21/2023 10:16 AM HISTORY: Pulmonary embolism (PE) suspected, high prob. 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 TECHNIQUE: CTA of the chest was performed prior to and following the uneventful intravenous administration of IOPAMIDOL 61 % INTRAVENOUS SOLUTION (MULTI-DOSE BULK PACK) Given:80 mL contrast according to standard protocol. 3-D reconstructions were created on a separate workstation by a certified ophthalmic technologist and submitted for review. The examination was performed with the adjustment of mA according to the patient size and/or the use of Iterative Reconstruction Technique. COMPARISON: 11/13/2023 FINDINGS: Vascular: There is adequate opacification of the pulmonary arteries. No evidence of pulmonary embolus. The aorta and main pulmonary artery normal in caliber. Mild coronary artery atherosclerosis. Chest: LUNGS: New small right pleural effusion. Complete right lower lobe atelectasis. Partial left lower lobe and right middle lobe atelectasis. Patchy opacification of the left lower lobe bronchi with mucous/debris. No pneumothorax. Right upper lobe tree-in-bud opacities are new. HEART/VESSELS: Normal heart size without a pericardial effusion. MEDIASTINUM/RADHA: Within normal limits. CHEST WALL/LOWER NECK: Left chest electronic device and left neck lead are partially imaged. UPPER ABDOMEN: Interval cholecystectomy. OSSEOUS: Within normal limits IMPRESSION: 1. No pulmonary embolus. 2. New small right pleural effusion. Bilateral lower lobe and right middle lobe atelectasis. 3. Right upper lobe pulmonary tree-in-bud opacities are likely infectious/inflammatory. 4. Interval cholecystectomy. DICTATION LOCATION: Location 1 - [facility] Jessica Angel MD CT ORDERABLES * ECHOCARDIOGRAM W/ CONTRAST AGENT (11/17/2023 6:00 AM CDT) EJECTION FRACTION 701 INTERFACE SYSTEM 11/17/2023 5:34 AM CDT Narrative INTERFACE SYSTEM - 11/17/2023 8:38 AM CDT [address] [address] [employer] Transthoracic Echocardiogram Patient: ?Abiel, Curt Darwin MRN: ?[id number] Study ID: ? ECHO COMPLETE - Gender: ? M : ?1985 Age: ?38 Race: ? CAU Height ?170.2cm Study Date: ? 11/17/2023 Weight: ? 76.1kg Access. #: ?[id number] Account #: ?[id number] BP: *Referring Physician:* Evelio Miller *Ordering Physician:* ??Evelio Miller commissioner of conciliation: Nurse: Indications: Bacteremia / Endocarditis. STUDY CONCLUSIONS: SUMMARY: - Left ventricle: The cavity size was normal. Wall thickness was normal. ??Global systolic function is normal. For Epic reporting: the left ventricular ??ejection fraction is 701% . Left ventricular diastolic function parameters ??are normal. - Left atrium: The atrium is normal in size. - Right ventricle: The cavity size is normal. Systolic function is normal. - Pulmonary arteries: Systolic pressure was within the normal range. Cardiac Anatomy: LEFT VENTRICLE: ??The cavity size was normal. Wall thickness was normal. Global systolic function is normal. For Epic reporting: the left ventricular ejection fraction is 701% . Wall motion is normal; there are no regional wall motion abnormalities. Left ventricular diastolic function parameters are normal. AORTIC VALVE: ?? Structurally normal valve. Trileaflet. Velocity is within the normal range. There was no stenosis. ??No significant regurgitation. The mean systolic gradient is 6mm Hg. The peak systolic gradient is 11mm Hg. The LVOT to aortic valve VTI ratio is 0.75. The valve area is 3.4cm^2. The ratio of LVOT to aortic valve peak velocity is 0.77. AORTA: Aortic root: The root is normal-sized. MITRAL VALVE: ?? Structurally normal valve. ?? Inflow velocity is within the normal range. There is no evidence for stenosis. ??Trace regurgitation. The mean diastolic gradient is 2mm Hg. The peak diastolic gradient is 2mm Hg. LEFT ATRIUM: ??The atrium is normal in size. RIGHT VENTRICLE: ??The cavity size is normal. Systolic function is normal. PULMONIC VALVE: ?? Structurally normal valve. ?No significant regurgitation. TRICUSPID VALVE: ?? Structurally normal valve. ?Mild regurgitation. PULMONARY ARTERY: ??Systolic pressure was within the normal range. RIGHT ATRIUM: ??The atrium was normal in size. SYSTEMIC VEINS: Inferior vena cava: The IVC is normal-sized. PERICARDIUM: ?? There is no pericardial effusion. Measurements Left ventricle ? Value ?Ref DELL, LAX ? (L) 3.1 ?? cm ? 4.2 - 5.8 DELL/bsa, LAX ? (L) 1.7 ?? cm/m^2 ?? 2.2 - 3.0 DELL, LAX chord ? (N) 5.2 ?? cm ? 4.2 - 5.8 ESD, LAX chord ? (N) 3.1 ?? cm ? 2.5 - 4.0 DELL/bsa, LAX chord ? (N) 2.8 ?? cm/m^2 ?? 2.2 - 3.0 ESD/bsa, LAX chord ? (N) 1.6 ?? cm/m^2 ?? 1.3 - 2.1 FS, LAX chord ?(N) 41 ?% ?25 - 43 IVS, ED ?(H) 1.1 ?? cm ? 0.6 - 1.0 PW, ED ? (H) 1.1 ?? cm ? 0.6 - 1.0 EDV, 2-p ? (N) 140 ?? ml ? 62 - 150 ESV, 2-p ? (N) 31 ?ml ? 21 - 61 SV, 2-p ?109 ?? ml ? --------- SV/bsa, 2-p ?58 ?ml/m^2 ?? --------- E', lat fernie, TDI ? (N) 18.3 ??cm/sec ?? >=10.0 E/e', lat fernie, TDI ? (N) 5 ?<=13 E', med fernie, TDI ? (N) 12.6 ??cm/sec ?? >=7.0 E/e', med fernie, TDI ? 7 ?--------- E', avg, TDI ? 15.5 ??cm/sec ?? --------- E/e', avg, TDI ? (N) 5 ?<=14 LVOT ? Value ?Ref Diam, S ?2.3 ?? cm ? --------- Area ? 4.5 ?? cm^2 ? --------- Peak patricia, S ?1.13 ??m/sec ?--------- VTI, S ? 20.3 ??cm ? --------- Peak grad, S ? 5 ? mm Hg ?--------- Right ventricle ?Value ?Ref DELL minor ax, A4C base (N) 3.8 ?? cm ? 2.5 - 4.1 DELL minor ax, A4C mid ??(H) 4.2 ?? cm ? 1.9 - 3.5 Left atrium ?Value ?Ref AP dim, ES ? (N) 3.5 ?? cm ? 3.0 - 4.0 AP dim index, ES ? (N) 1.9 ?? cm/m^2 ?? 1.5 - 2.3 SI dim, A4C ?4.5 ?? cm ? --------- Area ES, A4C ? (N) 14 ?cm^2 ? <=20 Area/bsa ES, A4C ? 7.39 ??cm^2/m^2 --------- SI dim, A2C ?4.1 ?? cm ? --------- SI dim, shorter ?4.1 ?? cm ? --------- Vol, ES, 1-p A4C ? (N) 33 ?ml ? 18 - 58 Vol/bsa, ES, 1-p A4C ?? (N) 18 ?ml/m^2 ?? 12 - 37 Vol, ES, 1-p A2C ? (N) 35 ?ml ? 18 - 58 Vol/bsa, ES, 1-p A2C ?? (N) 19 ?ml/m^2 ?? 11 - 43 Vol, ES, 2-p ? 36 ?ml ? --------- Vol/bsa, ES, 2-p ? (N) 19 ?ml/m^2 ?? 16 - 34 LA/Ao root ratio ? 1.03 ? --------- Right atrium ? Value ?Ref SI dim, ES, A4C ?(N) 4.4 ?? cm ? 3.4 - 5.3 SI dim/bsa, ES, A4C ?(N) 2.3 ?? cm/m^2 ?? 1.8 - 3.0 Area, ES, A4C ?(N) 10 ?cm^2 ? 10 - 18 Vol, ES, 1-p A4C ? 15 ?ml ? --------- Vol/bsa, ES, 1-p A4C ?? (L) 8 ? ml/m^2 ?? 11 - 39 Aortic valve ? Value ?Ref Peak v, S ?1.5 ?? m/sec ?--------- Mean v, S ?1.13 ??m/sec ?--------- VTI, S ? 27.1 ??cm ? --------- Mean grad, S ? 6 ? mm Hg ?--------- Peak grad, S ? 11 ?mm Hg ?--------- LVOT/AV, VTI ratio ? 0.75 ? --------- RAMONE, VTI ? 3.4 ?? cm^2 ? --------- RAMONE/bsa, VTI ? 1.8 ?? cm^2/m^2 --------- LVOT/AV, Vpeak ratio ? 0.77 ? --------- RAMONE, Vmax ?3.3 ?? cm^2 ? --------- RAMONE/bsa, Vmax ?1.74 ??cm^2/m^2 --------- Mitral valve ? Value ?Ref Mean v, D ?0.6 ?? m/sec ?--------- Peak E ? 0.84 ??m/sec ?--------- Peak A ? 0.73 ??m/sec ?--------- Decel time ? 179 ?? ms ? --------- PHT ?52 ?ms ? --------- Mean grad, D ? 2 ? mm Hg ?--------- Peak grad, D ? 2 ? mm Hg ?--------- Peak E/A ratio ? 1.1 ?--------- A-VTI ?18.2 ??cm ? --------- MVA, PHT ? 4.2 ?? cm^2 ? --------- MVA/bsa, PHT ? 2.25 ??cm^2/m^2 --------- Pulmonic valve ? Value ?Ref Peak v, S ?1.4 ?? m/sec ?--------- Peak grad, S ? 8 ? mm Hg ?--------- Tricuspid valve ?Value ?Ref TR peak v ?(N) 2.7 ?? m/sec ?<=2.8 Peak RV-RA grad, S ? 30 ?mm Hg ?--------- Aortic root ?Value ?Ref Root diam, ? 3.4 ?? cm ? --------- Ascending aorta ?Value ?Ref AAo AP diam, S ? 3.4 ?? cm ? --------- AAo AP diam/bsa, S ? 1.8 ?? cm/m^2 ?? --------- Legend: (L) ??and ??(H) ??girish values outside specified reference range. (N) ??luke values inside specified reference range. Procedure data: Procedure information: ??A transthoracic echocardiogram was performed. Scanning was performed from the parasternal, apical, and subcostal acoustic windows. Intravenous contrast (Definity) was administered. ?Transthoracic echocardiogram. ??Complete 2D, complete spectral Doppler, and color Doppler. Birthdate: ??Patient birthdate: 1985. ??Age: ??Patient is 38year(s) old. Sex: ?? gender: male. ??Height: ??170.2cm. 67in. ??Weight: ??76.1kg. 167.8lb. Body mass index: ??26.3kg/m^2. ??Body surface area: ?1.88m^2. ??Study date: Study date: 11/17/2023. Study time: 05:34 AM. ?Prepared and Electronically Authenticated Rob Almendarez MD [id number] Procedure Note Rob Almendarez MD - 11/17/2023 [place] [address] [employer] Transthoracic Echocardiogram Patient: Curt Ryder Study ID: ECHO COMPLETE - Gender: M : 1985 Age: 38 Race: [facility] Height 170.2cm Study Date: 11/17/2023 Weight: 76.1kg Access. #: [id number] BP: *Referring Physician:* Evelio Miller *Ordering Physician:Evelio Mederos commissioner of conciliation: Nurse: Indications: Bacteremia / Endocarditis. STUDY CONCLUSIONS: SUMMARY: - Left ventricle: The cavity size was normal. Wall thickness was normal. Global systolic function is normal. For Epic reporting: the leftventricular ejection fraction is 701% . Left ventricular diastolic functionparameters are normal. - Left atrium: The atrium is normal in size. - Right ventricle: The cavity size is normal. Systolic function isnormal. - Pulmonary arteries: Systolic pressure was within the normal range. Cardiac Anatomy: LEFT VENTRICLE: The cavity size was normal. Wall thickness was normal.Global systolic function is normal. For Epic reporting: the left ventricularejection fraction is 701% . Wall motion is normal; there are no regional wallmotion abnormalities. Left ventricular diastolic function parameters arenormal. AORTIC VALVE: Structurally normal valve. Trileaflet. Velocity is withinthe normal range. There was no stenosis. No significant regurgitation. Themean systolic gradient is 6mm Hg. The peak systolic gradient is 11mm Hg. TheLVOT to aortic valve VTI ratio is 0.75. The valve area is 3.4cm^2. The ratioof LVOT to aortic valve peak velocity is 0.77. AORTA: Aortic root: The root is normal-sized. MITRAL VALVE: Structurally normal valve. Inflow velocity is withinthe normal range. There is no evidence for stenosis. Trace regurgitation.The mean diastolic gradient is 2mm Hg. The peak diastolic gradient is 2mmHg. LEFT ATRIUM: The atrium is normal in size. RIGHT VENTRICLE: The cavity size is normal. Systolic function isnormal. PULMONIC VALVE: Structurally normal valve. No significantregurgitation. TRICUSPID VALVE: Structurally normal valve. Mild regurgitation. PULMONARY ARTERY: Systolic pressure was within the normal range. RIGHT ATRIUM: The atrium was normal in size. SYSTEMIC VEINS: Inferior vena cava: The IVC is normal-sized. PERICARDIUM: There is no pericardial effusion. Measurements Left ventricle Value Ref DELL, LAX (L) 3.1 cm 4.2 - 5.8 DELL/bsa, LAX (L) 1.7 cm/m^2 2.2 - 3.0 DELL, LAX chord (N) 5.2 cm 4.2 - 5.8 ESD, LAX chord (N) 3.1 cm 2.5 - 4.0 DELL/bsa, LAX chord (N) 2.8 cm/m^2 2.2 - 3.0 ESD/bsa, LAX chord (N) 1.6 cm/m^2 1.3 - 2.1 FS, LAX chord (N) 41 % 25 - 43 IVS, ED (H) 1.1 cm 0.6 - 1.0 PW, ED (H) 1.1 cm 0.6 - 1.0 EDV, 2-p (N) 140 ml 62 - 150 ESV, 2-p (N) 31 ml 21 - 61 SV, 2-p 109 ml --------- SV/bsa, 2-p 58 ml/m^2 --------- E', lat fernie, TDI (N) 18.3 cm/sec >=10.0 E/e', lat fernie, TDI (N) 5 <=13 E', med fernie, TDI (N) 12.6 cm/sec >=7.0 E/e', med frenie, TDI 7 --------- E', avg, TDI 15.5 cm/sec --------- E/e', avg, TDI (N) 5 <=14 LVOT Value Ref Diam, S 2.3 cm --------- Area 4.5 cm^2 --------- Peak patricia, S 1.13 m/sec --------- VTI, S 20.3 cm --------- Peak grad, S 5 mm Hg --------- Right ventricle Value Ref DELL minor ax, A4C base (N) 3.8 cm 2.5 - 4.1 DELL minor ax, A4C mid (H) 4.2 cm 1.9 - 3.5 Left atrium Value Ref AP dim, ES (N) 3.5 cm 3.0 - 4.0 AP dim index, ES (N) 1.9 cm/m^2 1.5 - 2.3 SI dim, A4C 4.5 cm --------- Area ES, A4C (N) 14 cm^2 <=20 Area/bsa ES, A4C 7.39 cm^2/m^2 --------- SI dim, A2C 4.1 cm --------- SI dim, shorter 4.1 cm --------- Vol, ES, 1-p A4C (N) 33 ml 18 - 58 Vol/bsa, ES, 1-p A4C (N) 18 ml/m^2 12 - 37 Vol, ES, 1-p A2C (N) 35 ml 18 - 58 Vol/bsa, ES, 1-p A2C (N) 19 ml/m^2 11 - 43 Vol, ES, 2-p 36 ml --------- Vol/bsa, ES, 2-p (N) 19 ml/m^2 16 - 34 LA/Ao root ratio 1.03 --------- Right atrium Value Ref SI dim, ES, A4C (N) 4.4 cm 3.4 - 5.3 SI dim/bsa, ES, A4C (N) 2.3 cm/m^2 1.8 - 3.0 Area, ES, A4C (N) 10 cm^2 10 - 18 Vol, ES, 1-p A4C 15 ml --------- Vol/bsa, ES, 1-p A4C (L) 8 ml/m^2 11 - 39 Aortic valve Value Ref Peak v, S 1.5 m/sec --------- Mean v, S 1.13 m/sec --------- VTI, S 27.1 cm --------- Mean grad, S 6 mm Hg --------- Peak grad, S 11 mm Hg --------- LVOT/AV, VTI ratio 0.75 --------- RAMONE, VTI 3.4 cm^2 --------- RAMONE/bsa, VTI 1.8 cm^2/m^2 --------- LVOT/AV, Vpeak ratio 0.77 --------- RAMONE, Vmax 3.3 cm^2 --------- RAMONE/bsa, Vmax 1.74 cm^2/m^2 --------- Mitral valve Value Ref Mean v, D 0.6 m/sec --------- Peak E 0.84 m/sec --------- Peak A 0.73 m/sec --------- Decel time 179 ms --------- PHT 52 ms --------- Mean grad, D 2 mm Hg --------- Peak grad, D 2 mm Hg --------- Peak E/A ratio 1.1 --------- A-VTI 18.2 cm --------- MVA, PHT 4.2 cm^2 --------- MVA/bsa, PHT 2.25 cm^2/m^2 --------- Pulmonic valve Value Ref Peak v, S 1.4 m/sec --------- Peak grad, S 8 mm Hg --------- Tricuspid valve Value Ref TR peak v (N) 2.7 m/sec <=2.8 Peak RV-RA grad, S 30 mm Hg --------- Aortic root Value Ref Root diam, 3.4 cm --------- Ascending aorta Value Ref AAo AP diam, S 3.4 cm --------- AAo AP diam/bsa, S 1.8 cm/m^2 --------- Legend: (L) and (H) girish values outside specified reference range. (N) luke values inside specified reference range. Procedure data: Procedure information: A transthoracic echocardiogram was performed.Scanning was performed from the parasternal, apical, and subcostal acousticwindows. Intravenous contrast (Definity) was administered. Transthoracic echocardiogram. Complete 2D, complete spectral Doppler, and colorDoppler. Birthdate: Patient birthdate: 1985. Age: Patient is 38year(s)old. Sex: gender: male. Height: 170.2cm. 67in. Weight: 76.1kg.167.8lb. Body mass index: 26.3kg/m^2. Body surface area: 1.88m^2. Studydate: Study date: 11/17/2023. Study time: 05:34 AM. Prepared andElectronically Authenticated Rob Almendarez MD [id number] Evelio Miller MD ORDERABLES INTERFACE SYSTEM Refer to clinic/hospital department * CT SINUS FACIAL BONES W CONTRAST (11/17/2023 3:46 AM CDT) Anatomical Region Laterality Modality Head Computed Tomogra phy 11/17/2023 3:15 AM CDT Impressions 11/17/2023 7:40 AM CDT IMPRESSION: ?? 1. ??No obvious bone erosion, periapical lucency, or peripherally enhancing fluid collection in the oral cavity. Correlation with dental evaluation is recommended. ?? The examination was performed with the adjustment of mA according to the patient size and/or the use of Iterative Reconstruction Technique. ?? DICTATION LOCATION: Location 1 - [facility] 11/17/2023 7:40 AM CDT EXAM: CT SINUS FACIAL BONES W CONTRAST DATE: 11/17/2023 3:46 AM CLINICAL INDICATION: suspected oral source for bacteremia, evaluate for tooth abscess, jaw osteomyelitis ?? TECHNIQUE: ?? Multiple contiguous axial CT images were obtained through the maxillofacial ??region after the administration of IV contrast material. Sagittal and coronal reformations were rendered utilizing the axial image data set. ?? IV CONTRAST: ??100 mL Isovue 300 COMPARISON: December 06, 2006. FINDINGS: The visualized intracranial structures are unremarkable. ??The visualized portions of the globes and orbits appear normal. The visualized mastoid air cells are clear. ??Bony spur on the nasal septum on the left. Mild to moderate sinus mucosal disease involving the ethmoid and maxillary sinuses. Mild sphenoid sinus mucosal disease. No areas of osseous destruction or bony dehiscence are identified. No abnormality is identified in the visualized soft tissues. INCIDENTAL FINDINGS: ??Metallic leads for presumed vagal nerve stimulator on the left. Procedure Note Maxwell Menchaca MD - 11/17/2023 EXAM: CT SINUS FACIAL BONES W CONTRAST DATE: 11/17/2023 3:46 AM CLINICAL INDICATION: suspected oral source for bacteremia, evaluate for tooth abscess, jaw osteomyelitis TECHNIQUE: Multiple contiguous axial CT images were obtained through the maxillofacial region after the administration of IV contrast material. Sagittal and coronal reformations were rendered utilizing the axial image data set. IV CONTRAST: 100 mL Isovue 300 COMPARISON: December 06, 2006. FINDINGS: The visualized intracranial structures are unremarkable. The visualized portions of the globes and orbits appear normal. The visualized mastoid air cells are clear. Bony spur on the nasal septum on the left. Mild to moderate sinus mucosal disease involving the ethmoid and maxillary sinuses. Mild sphenoid sinus mucosal disease. No areas of osseous destruction or bony dehiscence are identified. No abnormality is identified in the visualized soft tissues. INCIDENTAL FINDINGS: Metallic leads for presumed vagal nerve stimulator on the left. IMPRESSION: 1. No obvious bone erosion, periapical lucency, or peripherally enhancing fluid collection in the oral cavity. Correlation with dental evaluation is recommended. The examination was performed with the adjustment of mA according to the patient size and/or the use of Iterative Reconstruction Technique. DICTATION LOCATION: Location 1 - [facility] Evelio Miller MD CT ORDERABLES * PATHOLOGY (11/16/2023 6:26 PM CDT) CASE REPORT Surgical Pathology Report ? Case: [id number] ? Authorizing Provider: ??Henok Artis MD Collected: ? 11/16/2023 06:26 PM ? Ordering Location: ? [facility] ?Received: ?11/18/2023 06:56 AM ? Operating Room ? Pathologist: ? Skylar Nevarez MD ? Specimen: ?Gallbladder, gallbladder ? 4 10:33 AM [facility] [employer] [facility] FINAL DIAGNOSIS Gallbladder, laparoscopic cholecystectomy: -Acute gangrenous cholecystitis with abscess formation. -No evidence of malignancy. 10:33 AM [facility] [employer] [facility] S DESCRIPTION Received in a single container labeled Curt Granados Ryder and gallbladder, is a 9.8 x 6 x 2.8 cm gallbladder with a clamped, patent cystic duct that has a diameter of 0.3 cm and is inked blue. The serosal surface is red, focally hemorrhagic, rubbery, and has focal green discolored areas. There is a 3 x 2 cm defect in the fundus. The lumen contains no bile and no stones. The mucosa is edematous, red-ma to dark green, focally velvety, and has a wall thickness 0.4 to 1.9 cm. There is green discoloration in the wall, consistent with possible necrosis. Property Accountant sections of gallbladder wall are submitted in cassettes A1 through A3, with A1 containing the en face cystic duct margin. [facility] 4 10:33 AM [facility] MICROSCOPIC DESCRIPTION The slides are labeled [id number] and Curt Ryder. Sections of gallbladder reveal thickened wall with diffuse acute inflammation, surface ulceration, gangrenous necrosis and abscess formation. A piece of adhesed the liver with acute and chronic inflammation is present. There are submucosal spindled to epithelioid cells, suggestive of reactive fibroblasts with surrounding vascular proliferation. The cells are negative for pancytokeratin and CD34, confirming reactive changes. 4 10:33 AM [facility] OPERATIVE PROCEDURE 1: CHOLECYSTECTOMY LAPAROSCOPIC 2: CHOLECYSTOMY 4 10:33 AM [facility] COMMENT Special stain, immunohistochemical, and/or in situ hybridization results are interpreted with controls that demonstrate appropriate staining reactions. Note on use of immunohistochemistry reagents and in situ hybridization probes: These tests were developed and their performance characteristics determined by [facility] Department of Laboratory Medicine. It has not been cleared or approved by the U.S. Food and Drug Administration. The FDA has determined that such clearance or approval is not necessary. The test is used for clinical purposes. It should not be regarded as investigational or for research. This laboratory is certified to perform high complexity testing. Frozen section/operating room consultation, gross examination and dissection, and case sign out may have been performed in part or completely in the following laboratories: [facility], CLIA #[id number] [address] [place] [address] [facility], CLIA #[id number] [address] [place] [address] [facility], CLIA #[id number] [place] [address] This report was created with the [employer] voice-activated dictation system. Inherent to this system is the possibility of syntax, grammar, punctuation and other errors that could impact the interpretation of the report. If there are interpretative questions about aspects of this report, please contact the performing pathologist. 10:33 AM CDT [facility] Tissue ENTIRE GALLBLADDER / Unknown Collection / Unknown 11/16/2023 6:26 PM CDT 11/18/2023 6:56 AM CDT Henok Artis MD PATHOLOGY/CYTOL OGY ORDERABLES [facility]# [id number] [address] [place] [address] * WA ANES INSERT ENDOTRACHEAL AIRWAY (11/16/2023 3:59 PM CDT) Narrative Leroy Hopkins AA - 11/16/2023 3:59 PM CDT Leroy Hopkins AA ? 11/16/2023 ??4:39 PM Airway Date/Time: 11/16/2023 3:59 PM Location: OR Plan: routine intubation Patient Identity Confirmed by: ??Verbally with patient and armband Airway: not difficult Staffing Performed: Student NA/AA Authorized by: Trevor Velazco MD ?? Performed by: Leroy Hopkins AA Indications and Patient Condition: ??Indications for Airway Management: ??Anesthesia ??Sedation Level: general anesthesia ??Preoxygenated: yes ?Patient Position: ??Sniffing ??Mask Difficulty Assessment: ??1 - vent by mask ??Plan to extubate at end of case: Yes ?? Final Airway Details: ??Final Airway Type: ??Endotracheal airway ??ETT ??Cuffed: Yes ?Cuff Volume (mL): ??6 ??Technique Used for Successful ETT Placement: ??Video laryngoscopy ??Devices/Methods Used in Placement: ??Intubating stylet ??Blade Size: ??3 ??Insertion Site: ??Oral ??ETT Size (mm): ??7.0 ??Video Laryngoscopy Devices: GlideScope ??Measured from: ??Teeth ??ETT to Teeth (cm): ??22 ??Tube secured with: ??Tape ??Placement Verified by: auscultation, end tidal CO2 and chest rise ?Cormack-Lehane Classification: ??Grade I - full view of glottis ??Number of Attempts at Approach: ??1 Additional Procedure Information: atraumatic and dentition unchanged Trevor Velazco MD PROCEDURE/MINOR SURG ICAL ORDERABLES * NM HEPATOBILIARY SCAN (11/15/2023 10:30 AM CDT) Anatomical Region Laterality Modality Abdomen Nuclear Medicine 11/15/2023 11:3 4 AM CDT Impressions 11/15/2023 11:41 AM CDT IMPRESSION: ??Abnormal hepatobiliary imaging study. Nonvisualization of the gallbladder at 60 minutes supportive of the diagnosis of acute acalculous cholecystitis. Dictated by Dr. Girish Sanchez MD DICTATION LOCATION: 1 Narrative 11/15/2023 11:41 AM CDT HEPATOBILIARY IMAGING DATE: 11/15/2023 9:34 AM History: Right upper quadrant abdominal pain. Suspected acute cholecystitis. Prior exams: CT of the chest, abdomen and pelvis 11/13/2023 showed a distended gallbladder with circumferential gallbladder wall thickening and adjacent inflammatory fat stranding suspicious for cholecystitis. PROCEDURE: Static imaging of the abdomen at 60 minutes. RADIOPHARMACEUTICAL: 5.03 mCi Technetium-99m Mebrofenin Route of injection: Left antecubital vein. INCIDENTAL FINDINGS: ??None. IMAGE QUALITY: Satisfactory. FINDINGS: The liver has typical morphology. Substantial small bowel activity is present with nonvisualization of the gallbladder Procedure Note Girish Sanchez MD - 11/15/2023 HEPATOBILIARY IMAGING DATE: 11/15/2023 9:34 AM History: Right upper quadrant abdominal pain. Suspected acute cholecystitis. Prior exams: CT of the chest, abdomen and pelvis 11/13/2023 showed a distended gallbladder with circumferential gallbladder wall thickening and adjacent inflammatory fat stranding suspicious for cholecystitis. PROCEDURE: Static imaging of the abdomen at 60 minutes. RADIOPHARMACEUTICAL: 5.03 mCi Technetium-99m Mebrofenin Route of injection: Left antecubital vein. INCIDENTAL FINDINGS: None. IMAGE QUALITY: Satisfactory. FINDINGS: The liver has typical morphology. Substantial small bowel activity is present with nonvisualization of the gallbladder IMPRESSION: Abnormal hepatobiliary imaging study. Nonvisualization of the gallbladder at 60 minutes supportive of the diagnosis of acute acalculous cholecystitis. Dictated by Dr. Girish Sanchez MD DICTATION LOCATION: [address] [facility] [place] ORDERABLES * (ABNORMAL) BLOOD GAS VENOUS (11/14/2023 7:28 PM CDT) PH, VENOUS 7.41 7.32 - 7.43 11/14/2023 7:32 PM CDT [facility] PCO2 VENOUS 31(L) 38 - 50 mm Hg 11/14/2023 7:32 PM CDT [facility] PO2 VENOUS 90(H) 25 - 40 mm Hg 11/14/2023 7:32 PM CDT [facility] HCO3 VENOUS 19(L) 22 - 29 mmol/L 7:32 PM CDT [facility] BASE EXCESS VENOUS -4.2 Reference Range Not Established mmol/L 11/14/2023 7:32 PM CDT [facility] HEMOGLOBIN VENOUS 14.4 No Ref Range Estab g/dL 11/14/2023 7:32 PM CDT [facility] O2 SAT EST VENOUS 98(H) 40 - 70 % 11/14/2023 7:32 PM T [facility] Blood, venous Venipuncture / Unknown 11/14/2023 7:28 PM CDT 11/14/2023 6:41 PM CDT Jim Nguyen MD ABG ORDERABLES [facility] [id number] [address] [place] [address] * TROPONIN 6 HR, 5TH GEN (11/14/2023 3:44 AM CDT) TROPONIN T, 6 HR 5TH GEN 9 <=15 ng/L 11/14/2023 4:44 AM CDT [facility] Blood Venipuncture / Unknown 11/14/2023 3:44 AM CDT 11/14/2023 3:51 AM CDT Critical access hospital [facility] - 11/14/2023 4:44 AM CDT Troponin Detectable but normal range. Unable to calculate delta. Delay in collection of timed specimen beyond recommended collection interval. Results must be interpreted in clinical context. Yaima Mitchell MD CHEMISTRY ORDERABLES Performing Organization Address [facility] Co de Phone Number [facility] CLNY# [id number] [address] [place] [address] * TROPONIN 2 HR, 5TH GEN (11/13/2023 10:25 PM CDT) TROPONIN T, 2 HR 5TH GEN 6 <=15 ng/L 11/13/2023 11:24 PM CDT [facility] Blood Venipuncture / Unknown 11/13/2023 10:25 PM CDT 11/13/2023 10:40 PM CDT Critical access hospital [facility] - 11/13/2023 11:24 PM CDT Troponin Detectable but normal range. Delay in collection of timed specimen beyond recommended collection interval. Results must be interpreted in clinical context. Unable to calculate delta. Gilberto Nettles DO CHEMISTRY ORDERABLES [facility] CLNY# [id number] [address] [place] [address] * CT CHEST ABDOMEN PELVIS WO CONT (11/13/2023 8:39 PM CDT) Anatomical Region Laterality Modality Chest Computed Tomogra phy 11/13/2023 8:39 PM CDT Impressions 11/13/2023 9:59 PM CDT IMPRESSION: 1. Mild right middle and lower lobe basilar opacities that favor atelectasis. 2. Otherwise no acute process within limits of motion artifact and a noncontrast exam. ABDOMEN AND PELVIS FINDINGS: The gallbladder is distended and there is circumferential bladder wall thickening with adjacent inflammatory fat stranding. There is no CT evidence of cholelithiasis or biliary dilatation. The spleen, liver, pancreas, adrenal glands, and kidneys are normal aside from a couple of nonobstructing left renal calculi that measure up to 3 mm. The stomach and bowel loops are normal in caliber with no acute process. The appendix is normal. The bladder is decompressed. The abdominal aorta is normal in caliber. No organized collection, free air, or lymphadenopathy is seen. The osseous structures are intact with no acute change. IMPRESSION: 1. Distended gallbladder with moderate wall thickening and surrounding inflammatory stranding suggestive of cholecystitis. DICTATION LOCATION: Location 1 [facility] 11/13/2023 9:[address] CHEST, ABDOMEN AND PELVIS WITHOUT CONTRAST ?? DATE: 11/13/2023 8:39 PM HISTORY: Fever. ? TECHNIQUE: Multislice helical axial without contrast. The examination was performed with the adjustment of mA according to the patient size and/or the use of Iterative Reconstruction Technique. COMPARISON: None. ?? CHEST FINDINGS: The heart size is normal. The thoracic aorta is normal in caliber. There is no coronary artery calcification. No lymphadenopathy is seen within the chest. There is an implanted stimulator device at the left anterior chest wall with a lead extending towards the left neck. The osseous structures are intact with no acute process. The lungs are obscured by breathing motion artifact. There are mild right middle and bilateral lower lobe opacities that suggest atelectasis. No dense consolidation, pleural effusion, or pneumothorax is seen. Evaluation for pulmonary nodules is technically limited. Procedure Note Pablo Meng MD - 11/13/2023 CT CHEST, ABDOMEN AND PELVIS WITHOUT CONTRAST DATE: 11/13/2023 8:39 PM HISTORY: Fever. TECHNIQUE: Multislice helical axial without contrast. The examination was performed with the adjustment of mA according to the patient size and/or the use of Iterative Reconstruction Technique. COMPARISON: None. CHEST FINDINGS: The heart size is normal. The thoracic aorta is normal in caliber. There is no coronary artery calcification. No lymphadenopathy is seen within the chest. There is an implanted stimulator device at the left anterior chest wall with a lead extending towards the left neck. The osseous structures are intact with no acute process. The lungs are obscured by breathing motion artifact. There are mild right middle and bilateral lower lobe opacities that suggest atelectasis. No dense consolidation, pleural effusion, or pneumothorax is seen. Evaluation for pulmonary nodules is technically limited. IMPRESSION: 1. Mild right middle and lower lobe basilar opacities that favor atelectasis. 2. Otherwise no acute process within limits of motion artifact and a noncontrast exam. ABDOMEN AND PELVIS FINDINGS: The gallbladder is distended and there is circumferential bladder wall thickening with adjacent inflammatory fat stranding. There is no CT evidence of cholelithiasis or biliary dilatation. The spleen, liver, pancreas, adrenal glands, and kidneys are normal aside from a couple of nonobstructing left renal calculi that measure up to 3 mm. The stomach and bowel loops are normal in caliber with no acute process. The appendix is normal. The bladder is decompressed. The abdominal aorta is normal in caliber. No organized collection, free air, or lymphadenopathy is seen. The osseous structures are intact with no acute change. IMPRESSION: 1. Distended gallbladder with moderate wall thickening and surrounding inflammatory stranding suggestive of cholecystitis. DICTATION LOCATION: Location 1 - [facility] Gilberto MURILLO ORDERABLES * POC LACTIC ACID (11/13/2023 6:57 PM CDT) LACTIC ACID POC 1.9 <=2.0 mmol/L 11/13/2023 6:57 PM CDT [facility] SPECIMEN SOURCE, GASES POC Blank 11/13/2023 6:57 PM CDT [facility] COMMENT, GASES POC Responsible Clinical Caregiver notified 11/13/2023 6:57 PM CDT [facility] Blood 11/13/2023 6:57 PM CDT 11/13/2023 6:58 PM CDT Gilberto Nettles DO POINT OF CARE TESTIN G Performing Organization Address [facility]/State/ZIP Co de Phone Number [facility]# [id number] [address] [place] [address] * TROPONIN BASELINE, 5TH GEN (11/13/2023 6:51 PM CDT) Pathologist [facility] TROPONIN T, BASELINE 5TH GEN <6 <=15 ng/L 11/13/2023 7:49 PM CDT [facility] Blood Venipuncture / Unknown 11/13/2023 6:51 PM CDT 11/13/2023 7:03 PM CDT Critical access hospital [facility] - 11/13/2023 7:49 PM CDT Troponin Undetectable Gilberto Nettles DO CHEMISTRY ORDERABLES Performing Organization Address [facility] Co de Phone Number [facility]# [id number] [address] [place] [address] * (ABNORMAL) BLOOD CULTURE PATHOGEN PCR PANEL (11/13/2023 6:51 PM CDT) [facility] Streptococcus spp by PCR DETECTED( A) Not Detected 11/14/2023 2:28 PM CDT [facility] Blood (Peripheral) Venipuncture / Unknown 11/13/2023 6:51 PM CDT 11/13/2023 7:02 PM CDT Critical access hospital [facility] - 11/14/2023 2:28 PM CDT [employer] Blood Culture Identification Panel is a multiplexed nucleic acid detection test for bacterial and yeast nucleic acids in positive blood cultures. ??It also detects genetic determinants of resistance to methicillin (mecA/C and MREJ), vancomycin (Jalen and vanB), carbapenems (IMP, KPC, NDM, OXA-48 like and VIM), colistin (mcr-1) and ESBL (CTX-M). ??The following organisms are identified using the [employer] BCID Panel: Gram Positive Bacteria Enterococcus faecalis Enterococcus faecium Listeria monocytogenes Staphylococcus Staphylococcus aureus Staphylococcus epidermidis Staphylococcus lugdunensis Streptococcus Streptococcus agalactiae Streptococcus pneumoniae Streptococcus pyogenes Gram Negative Bacteria Acinetobacter calcoaceticus-baumannii Bacteroides fragilis Haemophilus influenzae Neisseria meningitidis (encapsulated) Pseudomonas aeruginosa Stenotrophomonas maltophilia Enterobacterales Enterobacter cloacae complex Escherichia coli Klebsiella aerogenes Klebsiella oxytoca Klebsiella pneumoniae group Proteus Salmonella Serratia marcescens Yeast Tatiana albicans Tatiana auris Nakaseomyces glabrata(formerly Tatiana glabrata) Pichia kudriavzevii(formerly Attiana krusei) Tatiana parapsilosis Tatiana tropicalis Cryptococcus neoformans/iveth Gilberto Nettles DO 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 - GENER AL ORDERABLES [facility]# [id number] [address] [facility] [place] [address] * (ABNORMAL) BRAIN NATRIURETIC PEPTIDE, BNP OR PROBNP (11/13/2023 6:51 PM CDT) PROBNP, N TERMINAL 979(H) <124 pg/mL 11/13/2023 7:49 PM CDT [facility] Comment: INTERPRETIVE COMMENT based on diagnosis: Diagnostic NT pro-BNP cutoffs for Heart Failure in the absence of renal failure is suggested for the following ranges ?? <75 ??years: <125 pg/mL >=75 ??years: <450 pg/mL Exclusionary rule out cut-point for Acute Decompensated Heart Failure(ADHF) All ages: <300 pg/mL Diagnostic NT pro-BNP cutoffs for Acute Decompensated Heart Failure(ADHF) in the absence of renal failure is suggested for the following ages ?? <50 ??years: > 450 ??pg/mL 50-75 years: > 900 ??pg/mL ?? >75 ??years: >1800 pg/mL Blood Venipuncture / Unknown 11/13/2023 6:51 PM CDT 11/13/2023 7:03 PM CDT Gilberto Nettles DO CHEMISTRY ORDERABLES Performing Organization Address City/[facility]/ZIP Co de Phone Number [facility] CLIA# [id number] [address] [place] [address] * (ABNORMAL) LIPASE (11/13/2023 6:51 PM CDT) LIPASE 10(L) 13 - 60 U/L 11/13/2023 9:35 PM CDT [facility] Blood Venipuncture / Unknown 11/13/2023 6:51 PM CDT 11/13/2023 7:03 PM CDT Gilberto Nettles DO CHEMISTRY ORDERABLES Performing Organization Address [facility]/ZIP Co de Phone Number [facility] CLIA# [id number] [address] [place] [address] from Last 3 Months Advance Directives For more information, please contact: [phone] * Full Code (Latest Code Status on File) Date Activated Date Inactivated Comments 02/09/2024 8:20 AM 02/11/2024 12:24 PM * Full Code Date Activated Date Inactivated Comments 01/08/2024 9:42 AM 01/10/2024 6:00 PM * Full Code Date Activated Date Inactivated Comments 11/16/2023 4:52 PM 11/29/2023 12:06 AM * Full Code Date Activated Date Inactivated Comments 11/14/2023 1:23 AM 11/16/2023 4:52 PM * Full Code Date Activated Date Inactivated Comments 02/09/2022 11:15 PM 02/13/2022 7:14 PM Care Teams Receiver Relationship Specialty Start Date End Date Gulshan Mena DO [address] [place] [phone] PCP - General 01/26/15
--- OUTSIDE RECORDS SUMMARY | 2024-02-12 05:12 | XMS_ITS | Encounter Summary ---
Author Organization [facility] Address [address] [place] [address] Care Team Providers Care Cop Breaker Name Role Phone Gulshan Mena DO Primary Care Provider [phone] Reason for Visit * Reason Comments Seizure 38y/o male arrives v ia EMS after possible seizure. Staff states pt.had a witnessed seizure and they administered 10mg of IN Diazepam @2049. Per EMS pt.is non-verbal and has tremors at baseline. BS 113. HX.of epilepsy and tremors * Auth/Cert (Routine) Specialty Diagnoses / Procedures Referred By Padmini t Referred To Contact Emergency Medicine [facility] Emergency Dept [address] [place] [address] Referral ID Status Reason Start Date Expiration Date Visits Re quested Visits Authorized [id number] 1 1 Encounter Details Date Type Department Care Team (Latest Contact Info) Description 01/07/2024 9:27 PM GMAT TUTOR - 01/10/2024 4:00 PM GMAT TUTOR Hospital Encounter [facility] [address] [place] [address] Darius Sanchez MD [address] [place] [address] Joe Auguste MD [address] [facility] [address] [place] [address] Divina Valero MD [address] [place] [address] Alfie Toledo MD [address] [facility] [address] [place] [address] Seizure disorder, complex partial, with intractable epilepsy Discharge Disposition: Home or Self Care Social [...] Sign Reading Time Taken Comments Blood Pressure 122/76 01/10/2024 1:00 PM GMAT TUTOR Pulse 83 01/10/2024 1:00 PM GMAT TUTOR Temperature 37.1 ??C (98.8 ??F) 01/10/2024 1:00 PM CS T Respiratory Rate 16 01/09/2024 7:43 PM GMAT TUTOR Oxygen Saturation 98% 01/10/2024 1:00 PM GMAT TUTOR Inhaled Oxygen Concentration - - Weight 72.6 kg (160 lb) 01/07/2024 9:31 PM GMAT TUTOR Height 170.2 cm (5' 7 ) 01/07/2024 9:31 PM GMAT TUTOR Body Mass Index 25.06 01/07/2024 9:31 PM GMAT TUTOR documented in this encounter Discharge Summaries * Daron Borja NP - 01/10/2024 1:57 PM CST Images from the original note were not included. [facility] Adult Hospitalist Discharge Summary Curt Benoitb 38 y.o. male 1985 CSN: [id number] Date of Admission: 01/07/2024 Date of Discharge: 01/10/2024 Discharging Physician: Alfie Toledo MD Kevin M Kuria, NP LOS: 3 days PCP: Gulshan Mena DO Activity: activity as tolerated. Dispo: home Diet: DIET GENERAL Effective Now Code Status at Discharge: Full Code Wound Care: None needed Hospital Course: Curt Ryder is a 38 y.o. 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 Last night, the staff states the patient had a witnessed seizure and they administered 10 mg of diazepam at 8:50 PM. At the facility patient has a protocol where they allow him to seize for 10 minutes, then give benzodiazepines, wait another 10 minutes and then call EMS. In the ED, patient is at his baseline which is nonverbal. Labs unremarkable. EKG without ischemia. Head CT negative. Neurology was consulted for further input. Per neurology, the patient's breakthrough seizure is likely unprovoked hiven his known history of refractory epilepsy. UA negative for infection. Given that the patient is already on four different anti-seizure medications at near-maximum doses, we will plan to continue current his regimen. Per chart review, primary neurologist noted considering adding another anti-seizure medication such as felbamate or Epidiolex. We will defer any medication to the patient's primary neurologist in the outpatient setting. Patient is currently stable at his baseline. 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, complex partial, with intractable epilepsy S/p placement of VNS (vagus nerve stimulation) device - Patient presented with increasing frequency of breakthrough seizures - Follows with neurology at [facility] - CT head with no acute abnormality - Resumed [place] [employer] LAW CLERK Zonisamide 400mg BID, Lacosamide 200 mg BID, Lamictal 300mg BID and 150mg at noon, and Clobazam 20 mg at bedtime - Neurology consulted, appreciate recommendations HTN - Held [place] [employer] LAW CLERK clonidine due to normal/low pressures - monitored BP closely -stable at the time of discharge S/p recent open cholecystomy (11/16/23) - Follows with up with TACS as outpatient, recovering well Essential tremor - Continued [place] [employer] LAW CLERK propranolol GERD - Continue [place] LAW CL[employer] Pepcid Autism with developmental delay - nonverbal, currently at baseline - Continued [facility] [employer] [place] [employer] LAW CLERK Buspar Nutritional status and in-house recommendations: Current Diet and/or Nutritional Supplementation ordered: DIET GENERAL Effective Now Admitting Dx: Seizure disorder, complex partial, with intractable epilepsy Discharge Diagnoses: Active Hospital Problems Diagnosis Breakthrough seizure Seizure disorder, complex partial, with intractable epilepsy Autism Development delay Intractable Mount Vernon-Gastaut syndrome Resolved Hospital Problems No resolved problems to display. Follow-up: Gulshan Mena DO in 3 days. Labs Needing Follow Up: N/A Discharge medications and new prescriptions: Medication List CONTINUE taking these medications acetaminophen 325 mg tablet Commonly known as: TYLENOL Take 2 Tabs by mouth every 4 hours as needed for Pain. Signed by: Dr. Antwan Macias Quantity: 60 Tab Refills: 0 Banophen 25 mg capsule Take 25 mg by mouth every 6 hours as needed for Allergies or Itching. Refills: 0 Generic drug: diphenhydrAMINE bisacodyL 5 mg Delayed Release tablet Commonly known as: DULCOLAX Take 10 mg by mouth 1 time daily as needed for Constipation. Refills: 0 busPIRone 10 mg tablet Commonly known as: BUSPAR Take 10 mg by mouth 3 times daily. Refills: 0 cloBAZam 10 mg Tablet Commonly known as: ONFI Take 20 mg by mouth daily at bedtime. Refills: 0 cloNIDine HCL 0.3 mg tablet Commonly known as: CATAPRES Take 1 Tablet (0.3 mg) by mouth late in the day. Signed by: Dr. Elaine Gutierrez Refills: 0 Colace 100 mg capsule Take 100 mg by mouth 2 times daily. Refills: 0 Generic drug: docusate sodium ENSURE ORAL Take by mouth 1 time daily as needed. Refills: 0 famotidine 20 mg tablet Commonly known as: PEPCID Take 20 mg by mouth 2 times daily. Refills: 0 hydrOXYzine HCL 25 mg tablet Commonly known as: ATARAX Take 25 mg by mouth 3 times daily as needed for Itching. Refills: 0 lacosamide 100 mg tablet Commonly known as: VIMPAT Take 200 mg by mouth 2 times daily . Refills: 0 * lamoTRIgine 150 mg tablet Commonly known as: LaMICtal Take 150 mg by mouth daily after lunch. Refills: 0 * LaMICtal 150 mg tablet Take 300 mg by mouth 2 times daily. Refills: 0 Generic drug: lamoTRIgine loratadine 10 mg tablet Commonly known as: CLARITIN Take 10 mg by mouth 1 time daily as needed for Allergies. Refills: 0 magnesium hydroxide 400 mg/5 mL suspension Commonly known as: MILK OF MAGNESIA Take 30 mL by mouth 1 time daily as needed for Constipation. Refills: 0 MUCINEX ORAL Take 400 mg by mouth Every 4-6 hours PRN . Refills: 0 multivitamin tablet Commonly known as: DAILY-KALYN Take 1 Tab by mouth daily. Refills: 0 propranoloL 160 mg Long Acting 24 hour capsule Commonly known as: INDERAL LA Take 160 mg by mouth daily. Refills: 0 Valtoco 10 mg/spray (0.1 mL) [place], Non-Aerosol Administer 10 mg in each nostril 1 time daily as needed for Seizures. Refills: 0 Generic drug: diazePAM Vitamin D2 50,000 unit capsule Take 50,000 Units by mouth every 7 days Saturday. Refills: 0 Generic drug: ergocalciferol Zonisamide 100 mg capsule Commonly known as: ZONEGRAN Take 400 mg by mouth 2 times daily. Refills: 0 Indications of Use: AT HS * !!Potential duplicate medications found. Review medication list carefully. Consultants: IP CONSULT TO NEUROLOGY Significant Diagnostic Studies This Admission: N/A Discharge Lab Data: Lab Results Component Value Date WBC 5.8 01/07/2024 HGB 12.3 (L) 01/07/2024 HCT 35.6 (L) 01/07/2024 PLT 172 01/07/2024 NA 137 01/07/2024 CL 105 01/07/2024 K 4.1 01/07/2024 CO2 22 01/07/2024 BUN 15 01/07/2024 CREAT 0.88 01/07/2024 GLUCOSE 117 (H) 01/07/2024 AST 01/07/2024 Comment: Test cannot be performed. Sample hemolysis interference above limits. Redraw if indicated. ALT 53 (H) 01/07/2024 CRP 4.1 11/29/2023 Discharge Exam: BP 122/76 (BP Location: Left arm, Patient Position (BP): Supine) Pulse 83 Temp 98.8 ??F (37.1 ??C) (Axillary) Resp 16 Ht 5' 7 (1.702 m) Wt 72.6 kg (160 lb) SpO2 98% BMI 25.06 kg/m?? Exam: Gen alert, no distress Lungs clear to auscultation bilaterally Heart regular rate and rhythm, S1, S2 normal, no murmur, Abdomen soft, non-tender. Bowel sounds normal. Extremities No edema Mental Status Pleasant mood, non-verbal Discharge Condition: improved to baseline Daron Borja NP TUTOR Associated attestation - Alfie Toledo MD - 01/10/2024 2:50 PM GMAT TUTOR I discussed this pt with Daron Borja NP and I agree with her plan as outlined. I also examined the pt independently. Exam Not in any distress Chest : B/L air entry Neuro: awake and alert Seizure disorder, complex partial, with intractable epilepsy: Increasing frequency of breakthrough seizures Continue [employer] LAW CLERK, lacosamide, Lamictal, clobazam. CT head nonconcerning. Not in status epilepticus currently. Seen by neurology * Shirlene Alcazar PA-C - 01/08/2024 2:38 PM CST Images from the original note were not included. [facility] Adult Hospitalist Discharge Summary Curt Ryder 38 y.o. male 1985 CSN: [id number] Date of Admission: 01/07/2024 Date of Discharge: 01/08/2024 Discharging Physician: Divina Valero MD Abbigail Webster, PA-C LOS: 1 day PCP: Gulshan Mena DO Activity: activity as tolerated. Dispo: home Diet: DIET GENERAL Effective Now Code Status at Discharge: Full Code Wound Care: None needed Hospital Course: Curt Ryder is a 38 y.o. 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 Last night, the staff states the patient had a witnessed seizure and they administered 10 mg of diazepam at 8:50 PM. At the facility patient has a protocol where they allow him to seize for 10 minutes, then give benzodiazepines, wait another 10 minutes and then call EMS. In the ED, patient is at his baseline which is nonverbal. Labs unremarkable. EKG without ischemia. Head CT negative. Neurology was consulted for further input. Per neurology, the patient's breakthrough seizure is likely unprovoked hiven his known history of refractory epilepsy. UA negative for infection. Given that the patient is already on four different anti-seizure medications at near-maximum doses, we will plan to continue current his regimen. Per chart review, primary neurologist noted considering adding another anti-seizure medication such as felbamate or Epidiolex. We will defer any medication to the patient's primary neurologist in the outpatient setting. Patient is currently stable at his baseline. Nutritional status and in-house recommendations: Current Diet and/or Nutritional Supplementation ordered: DIET GENERAL Effective Now Admitting Dx: Seizure disorder, complex partial, with intractable epilepsy Discharge Diagnoses: Active Hospital Problems Diagnosis Breakthrough seizure Seizure disorder, complex partial, with intractable epilepsy Autism Development delay Intractable Mount Vernon-Gastaut syndrome Resolved Hospital Problems No resolved problems to display. Follow-up: Gulshan Mena DO in 3 days. Labs Needing Follow Up: N/A Discharge medications and new prescriptions: Medication List CONTINUE taking these medications acetaminophen 325 mg tablet Commonly known as: TYLENOL Take 2 Tabs by mouth every 4 hours as needed for Pain. Signed by: Dr. Antwan Macias Quantity: 60 Tab Refills: 0 Banophen 25 mg capsule Take 25 mg by mouth every 6 hours as needed for Allergies or Itching. Refills: 0 Generic drug: diphenhydrAMINE bisacodyL 5 mg Delayed Release tablet Commonly known as: DULCOLAX Take 10 mg by mouth 1 time daily as needed for Constipation. Refills: 0 busPIRone 10 mg tablet Commonly known as: BUSPAR Take 10 mg by mouth 3 times daily. Refills: 0 cloBAZam 10 mg Tablet Commonly known as: ONFI Take 20 mg by mouth daily at bedtime. Refills: 0 cloNIDine HCL 0.3 mg tablet Commonly known as: CATAPRES Take 1 Tablet (0.3 mg) by mouth late in the day. Signed by: Dr. Elaine Gutierrez Refills: 0 Colace 100 mg capsule Take 100 mg by mouth 2 times daily. Refills: 0 Generic drug: docusate sodium ENSURE ORAL Take by mouth 1 time daily as needed. Refills: 0 famotidine 20 mg tablet Commonly known as: PEPCID Take 20 mg by mouth 2 times daily. Refills: 0 hydrOXYzine HCL 25 mg tablet Commonly known as: ATARAX Take 25 mg by mouth 3 times daily as needed for Itching. Refills: 0 lacosamide 100 mg tablet Commonly known as: VIMPAT Take 200 mg by mouth 2 times daily . Refills: 0 * lamoTRIgine 150 mg tablet Commonly known as: LaMICtal Take 150 mg by mouth daily after lunch. Refills: 0 * LaMICtal 150 mg tablet Take 300 mg by mouth 2 times daily. Refills: 0 Generic drug: lamoTRIgine loratadine 10 mg tablet Commonly known as: CLARITIN Take 10 mg by mouth 1 time daily as needed for Allergies. Refills: 0 magnesium hydroxide 400 mg/5 mL suspension Commonly known as: MILK OF MAGNESIA Take 30 mL by mouth 1 time daily as needed for Constipation. Refills: 0 MUCINEX ORAL Take 400 mg by mouth Every 4-6 hours PRN . Refills: 0 multivitamin tablet Commonly known as: DAILY-KALYN Take 1 Tab by mouth daily. Refills: 0 propranoloL 160 mg Long Acting 24 hour capsule Commonly known as: INDERAL LA Take 160 mg by mouth daily. Refills: 0 Valtoco 10 mg/spray (0.1 mL) [place], Non-Aerosol Administer 10 mg in each nostril 1 time daily as needed for Seizures. Refills: 0 Generic drug: diazePAM Vitamin D2 50,000 unit capsule Take 50,000 Units by mouth every 7 days Saturday. Refills: 0 Generic drug: ergocalciferol Zonisamide 100 mg capsule Commonly known as: ZONEGRAN Take 400 mg by mouth 2 times daily. Refills: 0 Indications of Use: AT HS * !!Potential duplicate medications found. Review medication list carefully. Consultants: IP CONSULT TO NEUROLOGY Significant Diagnostic Studies This Admission: N/A Discharge Lab Data: Lab Results Component Value Date WBC 5.8 01/07/2024 HGB 12.3 (L) 01/07/2024 HCT 35.6 (L) 01/07/2024 PLT 172 01/07/2024 NA 137 01/07/2024 CL 105 01/07/2024 K 4.1 01/07/2024 CO2 22 01/07/2024 BUN 15 01/07/2024 CREAT 0.88 01/07/2024 GLUCOSE 117 (H) 01/07/2024 AST 01/07/2024 Comment: Test cannot be performed. Sample hemolysis interference above limits. Redraw if indicated. ALT 53 (H) 01/07/2024 CRP 4.1 11/29/2023 Discharge Exam: BP (!) 116/95 (BP Location: Left arm, Patient Position (BP): Sitting) Pulse 75 Temp 97.8 ??F (36.6 ??C) (Axillary) Resp 18 Ht 5' 7 (1.702 m) Wt 72.6 kg (160 lb) SpO2 100% BMI 25.06 kg/m?? Exam: Gen alert, no distress Lungs clear to auscultation bilaterally Heart regular rate and rhythm, S1, S2 normal, no murmur, click, rub or gallop Abdomen soft, non-tender. Bowel sounds normal. Extremities No cyanosis or edema Mental Status Pleasant mood, non-verbal Discharge Condition: improved to baseline Shirlene Alcazar PA-C TUTOR Associated attestation - Divina Valero MD - 01/23/2024 3:58 PM GMAT TUTOR Patient information and note discussed with Advanced Practitioner Shirlene Alcazar PA-C 01/08/2024. I agree with major elements of this note as outlined. Divina Valero MD Please contact the [facility] via [employer] Secure Chat from 7am-7pm After hours please place E-ticket to [facility]ist documented in this encounter Medications at Time [...] Allergies. diazePAM (Valtoco) 10 mg/spray (0.1 mL) [place], Non-Aerosol Administer 10 mg in each nostril [...] as needed. 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, complex partial, with intractable epilepsy S/p placement of VNS (vagus nerve stimulation) device - Patient presents with increasing frequency of breakthrough seizures - Follows with neurology at [facility] - CT head with no acute abnormality - Resume [facility] [employer] LAW CLERK Zonisamide 400mg BID, Lacosamide 200 mg BID, Lamictal 300mg BID and 150mg at noon, andClobazam 20 mg at bedtime - Neurology consulted, appreciate recommendations HTN - Holding [facility] [employer] LAW CLERK clonidine due to normal/low pressures - monitor BP closely S/p recent open cholecystomy (11/16/23) - Followed up with TACS as outpatient, recovering well Essential tremor - Continue [facility] [employer] LAW CLERK propranolol GERD - Continue [facility] [employer] LAW CLERK Pepcid Autism with developmental delay - Minimally verbal, currently at baseline - Continue [facility] [employer] LAW CLERK Buspar Nutrition: Current Diet and/or Nutritional Supplementation ordered: DIET GENERAL Effective Now Quality/Safety/Core Measures/Disposition Planning: DVT Prophylaxis - Enoxaparin PT POC OT POC Chavez catheter:absent Current Code Status -Full Code Plan discussed with patient, questions answered. Estimated Discharge Day: Current Planned Disposition - Dispo: assisted pending placement availability. Subjective Previous history of present illness and review of systems have been reviewed today as documented inthe H&P on 01/07/2024; medications, labs, studies, notes, orders and consults have been reviewed. I have reviewed the notes from admission. 01/08: The patient is seen and evaluated. The patient is nonverbal. The patient does not follow anycommands. The patient does not seem to be in any acute distress. Objective BP 99/62 (BP Location: Left arm, Patient Position (BP): Supine) Pulse 73 Temp 99 ??F (37.2 ??C)(Axillary) Resp 18 Ht 5' 7 (1.702 m) Wt 72.6 kg (160 lb) SpO2 100% BMI 25.06 kg/m?? Temp(24hrs), Av.6 ??F (37.6 ??C), Min:99 ??F (37.2 ??C), Max:100.1 ??F (37.8 ??C) Exam: Gen alert, not in any acute distress, appears stated age Lungs clear to auscultation bilaterally Heart regular rate and rhythm, S1, S2 normal, no murmur Abdomen soft, non-tender. Bowel sounds normal. Nondistended Extremities Extremities atraumatic, no edema Mental Status Not oriented, nonverbal. Data: I have reviewed all new labs and studies resulted and pertinent ones are noted above Daron Borja NP Please contact me via [employer] Secure Chat from 7am-7pm After hours please place E-ticket to [facility] TUTOR Associated attestation - Alfie Toledo MD - 01/09/2024 2:50 PM GMAT TUTOR I discussed this pt with Daron Borja NP and I agree with her plan as outlined. I also examined the pt independently. Exam Not in any distress Chest : B/L air entry Neuro: awake and alert Seizure disorder, complex partial, with intractable epilepsy: Increasing frequency of breakthrough seizures Continue [employer] LAW CLERK, lacosamide, Lamictal, clobazam. CT head nonconcerning. Not in status epilepticus currently. Seen by neurology * Macie Donahue RN - 01/07/2024 9:54 PM CST Virtual Neurology Team vRN Note: Patient Name: Curt Ryder Patient Patient : 1985 Patient Age: 38 y.o. Patient gender: male Virtual Neurology Nurse notified by [facility] via secure chat at: 01-07-2024 21:49:45 Phone consultation request sent to virtual neurologist at: 01-07-2024 21:51:45 Macie Donahue RN, SCRN 01/07/2024 9:54 PM To reach [facility] Neurology please call [phone]. TUTOR documented in this encounter H&P Notes * Shirlene Alcazar PA-C - 01/08/2024 9:29 AM CST [facility] Adult Hospitalist H&P Patient Name: Curt Ryder 1985 Primary Care Doctor: Gulshan Mena DO Date of Admission: 01/07/2024 Date of Service: 01/08/2024 Assessment and Plan: Intractable Emmett-Gastaut syndrome Refractory generalized epilepsy S/p placement of VNS (vagus nerve stimulation) device - Patient presents with increasing frequency of breakthrough seizures - Follows with neurology at [facility] - CT head with no acute abnormality - Resume [facility] [employer] LAW CLERK Zonisamide 400mg BID, Lacosamide 200 mg BID, Lamictal 300mg BID and 150mg at noon, andClobazam 20 mg at bedtime - Neurology consulted, appreciate recommendations HTN - Holding [facility] [employer] LAW CLERK clonidine due to normal/low pressures S/p recent open cholecystomy (11/16/23) - Followed up with TACS as outpatient, recovering well Recent streptococcus sanguinous bacteremia - Completed 2 weeks course of ceftriaxone Essential tremor - Continue [facility] [employer] LAW CL[employer] propranolol GERD - Continue [facility] [facility] [employer] LAW CLERK Pepsid Autism with developmental delay - Minimally verbal, currently at baseline - Continue [facility] [employer] LAW CLERK Buspar DVT Prophylaxis Enoxaparin GI Prophylaxis: None Code status Prior Disposition: This patient was admitted under Inpatient: Based upon the patient's clinical conditionand documented clinical information, the patient is expected to require hospital care that crosses 2 midnights or more. Chief Complaint: Breakthrough seizures HPI: Patient is a 38 y.o. male with PMHx of autism with developmental delay, GERD, essential tremor, andintractable [place]-Gastaut syndrome with refractory generalized epilepsy who presents from his homeat [place] with increasing frequency of breakthrough seizures. Last night, the staff states the patient had a witnessed seizure and they administered 10 mg of diazepam at 8:50 PM. At the facility patient has a protocol where they allow him to seize for 10 minutes, then give benzodiazepines, wait another 10 minutes and then call EMS. In the ED, patient is at his baseline which is nonverbal. Labs unremarkable. EKG without ischemia. Head CT negative. Patient admitted and neurology consulted for further workup. Past Medical History: Diagnosis Date ADHD (attention deficit hyperactivity disorder) Adjustment reaction with aggression Allergic rhinitis Autism Constipation COVID-19 virus detected 02/13/2021 02/13/2021 Developmental delay disorder Mount Vernon-Gastaut syndrome Other general symptoms(780.99) Aggression-Adjustment Disorder Psychiatric disorder anxiety S/P placement of VNS (vagus nerve stimulation) device Seizure disorder Static encephalopathy Tremors of nervous system Past Surgical History: Procedure Laterality Date HX WISDOM TEETH EXTRACTION 2008 front teeth ND CHOLECSTOT/CHOLECSTOST W/EXPL DRG/RMVL ST1 SPX N/A 11/16/2023 CONVERTED TO OPEN CHOLECYSTOMY performed by Henok Artis MD at [facility] OR MAIN ND INSJ/RPLCMT CRANIAL NEUROSTIM GENER 2/> ELTRDS Left 10/27/2013 VAGUS NERVE STIMULATOR PLACEMENT performed by Hieu Macias MD at [facility] OR ND LAPAROSCOPY SURG CHOLECYSTECTOMY N/A 11/16/2023 CHOLECYSTECTOMY LAPAROSCOPIC performed by Henok Artis MD at [facility] OR MAIN ND UNLISTED PROCEDURE DENTOALVEOLAR STRUCTURES N/A 10/20/2014 DENTAL REHABILITATION performed by Dereck Dunbar DDS at [facility] OR MAIN ND UNLISTED PROCEDURE DENTOALVEOLAR STRUCTURES N/A 12/06/2016 DENTAL REHABILITATION performed by Dereck Dunbar DDS at [facility] OR MAIN Family History Problem Relation Name Age of Onset Other Father PSYCHIATRIC ISSUES Other Mother SANDOR MS Healthy Sister CRISTOBAL Healthy Brother MERRILL Hypertension Maternal Grandmother High Cholesterol Maternal Grandfather Hypertension Maternal Grandfather Diabetes Maternal Grandfather Cancer Maternal Grandfather PERHAPS KIDNEY OR LIVER Hypertension Paternal Grandmother Diabetes Paternal Grandmother Healthy Sister YOBANY Healthy Brother EDWIGE Social History Tobacco Use Smoking status: Never Smokeless tobacco: Never Substance Use Topics Alcohol use: No Prior to Admission Medications Prescriptions Last Dose Informant Patient Reported? Taking? GUAIFENESIN (MUCINEX ORAL) Yes Yes Sig: Take 400 mg by mouth Every 4-6 hours PRN . LACTOSE-FREE FOOD (ENSURE ORAL) Yes No Sig: Take by mouth 1 time daily as needed. Zonisamide (ZONEGRAN) 100 mg capsule Yes Yes Sig: Take 400 mg by mouth 2 times daily. acetaminophen (TYLENOL) 325 mg tablet No Yes Sig: Take 2 Tabs by mouth every 4 hours as needed for Pain. bisacodyl (DULCOLAX) 5 mg Delayed Release tablet Yes Yes Sig: Take 10 mg by mouth 1 time daily as needed for Constipation. busPIRone (BUSPAR) 10 mg Oral tablet Yes No Sig: Take 10 mg by mouth 3 times daily. cloBAZam (ONFI) 10 mg Tablet Yes No Sig: Take 40 mg by mouth daily at bedtime. cloNIDine HCL (CATAPRES) 0.3 mg tablet No No Sig: Take 1 Tablet (0.3 mg) by mouth late in the day. diazePAM (Valtoco) 10 mg/spray (0.1 mL) [place], Non-Aerosol Yes Yes Sig: Administer 10 mg in each nostril 1 time daily as needed for Seizures. diphenhydrAMINE (Banophen) 25 mg capsule Yes Yes Sig: Take 25 mg by mouth every 6 hours as needed for Allergies or Itching. docusate sodium (COLACE) 100 mg Oral capsule Yes No Sig: Take 100 mg by mouth 2 times daily. ergocalciferol (VITAMIN D2) 50,000 unit capsule Yes Yes Sig: Take 50,000 Units by mouth every 7 days Saturday. famotidine (PEPCID) 20 mg tablet Yes No Sig: Take 20 mg by mouth 2 times daily. hydrOXYzine HCL (ATARAX) 25 mg tablet Yes Yes Sig: Take 25 mg by mouth 3 times daily as needed for Itching. lacosamide (VIMPAT) 100 mg tablet Yes No Sig: Take 200 mg by mouth 2 times daily . lamoTRIgine (LaMICtal) 150 mg tablet Yes No Sig: Take 300 mg by mouth 2 times daily. lamoTRIgine (LaMICtal) 150 mg tablet Yes No Sig: Take 150 mg by mouth daily after lunch. loratadine (CLARITIN) 10 mg tablet Yes Yes Sig: Take 10 mg by mouth 1 time daily as needed for Allergies. magnesium hydroxide (MILK OF MAGNESIA) 400 mg/5 mL suspension Yes No Sig: Take 30 mL by mouth 1 time daily as needed for Constipation. multivitamin (DAILY-KALYN) tablet Yes No Sig: Take 1 Tab by mouth daily. propranoloL (INDERAL LA) 120 mg Long Acting 24 hour capsule Yes Yes Sig: Take 120 mg by mouth daily at bedtime. Facility-Administered Medications: None Allergies Allergen Reactions Amoxicillin Hives Carbamazepine Other (See Comments) tremors Penicillins Hives Phenytoin Sodium Rash and Nausea and Vomiting Review of Systems: Unable to obtain as patient is nonverbal Physical Exam: Patient Vitals for the past 8 hrs: BP Temp Temp src Pulse Resp SpO2 01/08/24 0510 98/52 97.8 ??F (36.6 ??C) Axillary 98 18 99 % General: Alert, no distress. Heart: Regular rate and rhythm, S1, S2 normal, no murmur, click, rub or gallop. Lungs: Clear to auscultation bilaterally Abdomen: Soft, non-tender. Bowel sounds times four. Extremities: No clubbing, cyanosis or edema Skin: Skin color, texture, turgor normal. No rashes or lesions. Warm and dry. Head: Normocephalic, atraumatic Neck: Supple, symmetrical, trachea midline, no adenopathy. Data Base: Lab: Results for orders placed or performed during the hospital encounter of 01/07/24 (from the past 24 hour(s)) CBC WITH DIFFERENTIAL Result Value Ref Range WBC 5.8 4.0 - 9.8 K/uL RBC 3.88 (L) 4.50 - 5.40 M/uL HEMOGLOBIN 12.3 (L) 13.6 - 16.5 g/dL HEMATOCRIT 35.6 (L) 40.0 - 48.0 % MCV 91.8 82.0 - 99.0 fL MCH 31.7 27.2 - 32.6 pg MCHC 34.6 31.5 - 35.5 g/dL RDW 13.2 11.5 - 14.5 % RDW-STDEV 43.9 37.1 - 48.7 fL PLATELETS 172 140 - 350 K/uL MPV 9.5 9.3 - 12.4 fL NEUTROPHILS 61 % LYMPHOCYTES 27 % MONOCYTES 8 % EOSINOPHILS 3 % BASOPHILS 1 % IMMATURE GRANULOCYTES 0 % NEUTROPHIL ABSOLUTE 3.56 1.90 - 7.00 K/uL LYMPHOCYTE ABSOLUTE 1.59 0.70 - 4.50 K/uL MONOCYTE ABSOLUTE 0.45 0.10 - 1.30 K/uL EOSINOPHIL ABSOLUTE 0.17 0.00 - 0.70 K/uL BASOPHILS ABSOLUTE 0.03 0.00 - 0.20 K/uL IMMATURE GRANULOCYTES ABSOLUTE 0.01 0.00 - 0.03 K/uL COMPREHENSIVE METABOLIC PANEL Result Value Ref Range SODIUM 137 136 - 145 mmol/L POTASSIUM 4.1 3.5 - 5.0 mmol/L CHLORIDE 105 98 - 107 mmol/L CO2 22 22 - 29 mmol/L CALCIUM 9.0 8.6 - 10.2 mg/dL BUN 15 6 - 20 mg/dL CREATININE 0.88 0.67 - 1.17 mg/dL GLUCOSE 117 (H) 74 - 99 mg/dL TOTAL PROTEIN 6.9 6.7 - 8.6 g/dL ALBUMIN 4.2 3.5 - 5.2 g/dL BILIRUBIN TOTAL 0.3 0.3 - 1.2 mg/dL ALKALINE PHOSPHATASE 160 (H) 40 - 129 U/L AST ALT 53 (H) <42 U/L GFR >60 >=60 mL/min/1.73 sq meter ANION GAP 10 8 - 16 mmol/L MAGNESIUM LEVEL Result Value Ref Range MAGNESIUM 2.3 1.6 - 2.6 mg/dL RESPIRATORY PATHOGEN PCR PANEL Specimen: Nasopharynx; Upper Respiratory Result Value Ref Range Respiratory Pathogen PCR Panel No respiratory pathogen nucleic acids detected. No respiratory pathogen nucleic acids detected. COVID-19 PCR Not Detected Not Detected ECG personally reviewed: NSR, rate 74, no ST elevation or depression, no T wave inversion, normal axis, normal ND and QT intervals Patient discussed and reviewed with attending, Divina Valero MD. Shirlene Alcazar PA-C Please contact me via [employer] Secure Chat from 7am-7pm After hours please place E-ticket to [facility] TUTOR Associated attestation - Divina Valero MD - 01/08/2024 12:55 PM GMAT TUTOR Patient seen and examined with the Advanced Practitioner Shirlene Alcazar PA-C on 01/08/2024. I have reviewed the note as dictated and agree with the assessment and plan, as dictated, with the exceptions, if any, noted below. BP 98/52 (BP Location: Left arm, Patient Position (BP): Lying right side) Pulse 98 Temp 97.8 ??F (36.6 ??C) (Axillary) Resp 18 Ht 5' 7 (1.702 m) Wt 72.6 kg (160 lb) SpO2 99% BMI 25.06 kg/m?? Exam: General: Alert, no distress. Heart: Regular rate and rhythm, S1, S2 normal, no murmur, click, rub or gallop. Lungs: Clear to auscultation bilaterally Abdomen: Soft, non-tender. Bowel sounds times four. No masses, No organomegaly. Extremities: No clubbing, cyanosis or edema Skin: Skin color, texture, turgor normal. No rashes or lesions. Warm and dry. Head: Normocephalic, atraumatic Data Review: Discussed and as indicated above. Assessment/Plan: Seizure disorder, complex partial, with intractable epilepsy: Increasing frequency of breakthrough seizures. Neurology consulted, appreciate recs. 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 CT head nonconcerning. Not in status epilepticus currently. Divina Valero MD, [facility] documented in this encounter Consult Notes * Burton Snow MD - 01/08/2024 9:[address] [facility] Neurohospitalist Service Neurology Consultation Date of Consult: 01/08/24 Patient Location: 3348/ Requesting Physician: Divina Valero MD ASSESSMENT Curt Ryder is a 38 y.o. 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 His breakthrough seizure is likely unprovoked given his known history of refractory epilepsy. His urinalysis should be checked to ensure he does not have a urinary tract infection lowering his seizure threshold. Given that he is on four different anti-seizure medications at near-maximum doses, I do not think it would be helpful to increase the dose of his anti- seizure medications or add a fifth conventional anti-seizure medication. He may benefit from the addition of a medication such as felbamate or Epidiolex, but these medications are non-formulary, require prior authorization, and should be started inthe outpatient setting at the behest of his neurologist. PLAN Urinalysis Continue Zonisamide 400 mg BID Continue Lamotrigine 300/150/300 Continue Lacosamide 200 mg BID Continue Onfi 20 mg nightly Given his history of refractory epilepsy with protracted seizures, I would reserve benzodiazapine administration for seizures lasting longer than five minutes. No additional neurologic workup is required in the inpatient setting. He appears to be at his baseline. He should follow-up with his outpatient neurologist. We will sign off. Burton Snow MD [facility] Neurohospitalist Between 07:00 - 19:00, please secure chat me. Between 19:00 - 07:00, please contact Virtual Neurology (Epic Group Chat: [facility] Neurohospitalist Consults or call [phone]) CHIEF COMPLAINT / CONSULT QUESTION Seizure HISTORY OF PRESENT ILLNESS Curt Ryder is a 38 y.o. 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 His last appointment with his outpatient neurology PA, Tosha Elaine, was on 11/06/2023. At this time, he reportedly had 22 seizures in September 2023 and 11+ seizures in October 2023. His VNS output parameters were increased during this clinic visit. There was a tentative plan that if he continues to have significant seizure burden in the future, then there would be consideration for starting Epidiolex. He had an episode where he had increased tone in his upper extremities and was making chewing motions with his mouth. The episode lasted for an unclear duration. According to the facility staff, thisepisode is apparently different than his typical seizures where he puts his hands up in the air andmakes incomprehensible sounds. He was given IN diazepam 10 mg and sent to our facility. It is unclear if he received his evening anti-seizure medications prior to arrival to our facility. He has not received any medications while at our facility to-date. PAST MEDICAL/SURGICAL/FAMILY/SOCIAL HISTORY Reviewed with relevant information documented in the history of present illness. MEDICATIONS & ALLERGIES Medications Prior to Admission Medication Sig Dispense Refill Last Dose propranoloL (INDERAL LA) 160 mg Long Acting 24 hour capsule Take 160 mg by mouth daily. cloNIDine HCL (CATAPRES) 0.3 mg tablet Take 1 Tablet (0.3 mg) by mouth late in the day. famotidine (PEPCID) 20 mg tablet Take 20 [...] Allergies. diazePAM (Valtoco) 10 mg/spray (0.1 mL) [place], Non-Aerosol Administer 10 mg in each nostril 1 time daily as needed for Seizures. cloBAZam (ONFI) 10 mg Tablet Take 20 mg by mouth daily at bedtime. Zonisamide (ZONEGRAN) 100 mg capsule Take 400 mg by mouth 2 times daily. GUAIFENESIN (MUCINEX ORAL) Take 400 mg by mouth Every 4-6 hours PRN . bisacodyl (DULCOLAX) 5 mg Delayed Release tablet Take 10 mg by mouth 1 time daily as needed for Constipation. acetaminophen (TYLENOL) 325 mg tablet Take 2 Tabs by mouth every 4 hours as needed for Pain. 60 Tab0 ergocalciferol (VITAMIN D2) 50,000 unit capsule Take 50,000 Units by mouth every 7 days Saturday. lamoTRIgine (LaMICtal) 150 mg tablet Take 300 mg by mouth 2 times daily. lacosamide (VIMPAT) 100 mg tablet Take 200 mg by mouth 2 times daily . magnesium hydroxide (MILK OF MAGNESIA) 400 mg/5 mL suspension Take 30 mL by mouth 1 time daily as needed for Constipation. multivitamin (DAILY-KALYN) tablet Take 1 Tab by mouth daily. docusate sodium (COLACE) 100 mg Oral capsule Take 100 mg by mouth 2 times daily. busPIRone (BUSPAR) 10 mg Oral tablet Take 10 mg by mouth 3 times daily. LACTOSE-FREE FOOD (ENSURE ORAL) Take by mouth 1 time daily as needed. Current Facility-Administered Medications Medication bisacodyL (DULCOLAX) delayed release tablet 10 mg busPIRone (BUSPAR) tablet 10 mg [Held by Provider] cloNIDine HCL (CATAPRES) tablet 0.3 mg docusate sodium (COLACE) capsule 100 mg famotidine (PEPCID) tablet 20 mg hydrOXYzine HCL (ATARAX) tablet 25 mg lamoTRIgine (LaMICtal) tablet 150 mg lamoTRIgine (LaMICtal) tablet 300 mg magnesium hydroxide (MILK OF MAGNESIA) oral suspension 30 mL multivitamin tx with iron and folic acid tablet tablet 1 Tablet lacosamide (VIMPAT) tablet 200 mg Zonisamide (ZONEGRAN) capsule 400 mg sodium chloride flush injection 5 mL sodium chloride flush injection 5 mL sodium chloride 0.9 % flush bag 25 mL dextrose 5 % in water 250 mL flush bag 25 mL naloxone (NARCAN) 0.4 mg/mL injection 0.1-0.4 mg enoxaparin (LOVENOX) injection 40 mg propranoloL (INDERAL LA) SR 24 hour capsule 160 mg cloBAZam (ONFI) tablet 20 mg LORazepam (ATIVAN) 2 mg/mL injection 1 mg Allergies Allergen Reactions Amoxicillin Hives Carbamazepine Other (See Comments) tremors Penicillins Hives Phenytoin Sodium Rash and Nausea and Vomiting REVIEW OF SYSTEMS Reviewed with relevant information documented in the history of present illness. PHYSICAL EXAM Vital Signs: BP (!) 116/95 (BP Location: Left arm, Patient Position (BP): Sitting) Pulse 75 Temp 97.8 ??F (36.6 ??C) (Axillary) Resp 18 Ht 5' 7 (1.702 m) Wt 72.6 kg (160 lb) SpO2 100% BMI 25.06 kg/m?? NEUROLOGIC EXAM: MENTAL STATUS: Awake with spontaneous eye opening. Alert and able to track & regard. He does not follow any commands. LANGUAGE: Non-verbal. CRANIAL NERVES: Pupils are equal and round. Extraocular movements are full. Face is symmetric at rest and on activation. MOTOR: Moves all four extremities at least antigravity with no gross asymmetry. SENSORY: SILT x 4. DATA CBC normal, no leukocytosis. CMP/Mg unremarkable, no significant electrolyte abnormalities. RVP negative. UA pending. HEAD CT: No acute findings. All brain imaging was personally reviewed and interpreted. TIME & MEDICAL DECISION MAKING The medical decision making complexity is high due to: 1 acute or chronic illness or injury that poses a threat to life or bodily function Extensive amount and/or complexity of data reviewed and analyzed including review of prior externalnotes and results and independent interpretation of a test performed by another physician or qualified health professional TUTOR * Rick Larson MD - 01/07/2024 10:39 PM CSTAssociated Order(s): IP CONSULT TO NEUROLOGY Neuro Consult for AM TUTOR documented in this encounter ED Notes * Anne Connelly RN - 01/07/2024 11:59 PM CST Pt.laying comfortably on stretcher with career information specialist at bedside. outside dealer sales representative updated on plan of care and bed status at this time TUTOR * Juana Fleming RN - 01/07/2024 11:05 PM CST Pt to CT TUTOR * Anne Connelly RN - 01/07/2024 10:18 PM CST Chief Complaint Patient presents with Seizure 38y/o male arrives via EMS after possible seizure. Staff states pt.had a witnessed seizure and theyadministered 10mg of IN Diazepam @2049. Per EMS pt.is non-verbal and has tremors at baseline. BS 113. HX.of epilepsy and tremors This RN wrote and agrees with triage note. Per facility staff pt.usually tenses up his arms up intothe air and makes incomprehensible sounds when having seizures. Staff says this time it was different , pt.was tensing hands and making chewing motions with his mouth. 10mg of IN valium was administered by staff prior to arrival to ED. Per EMS pt.became agitated and aggressive toward them on the way to the ED. Pt.making chew motion upon initial arrival to txt room. Pt.now calm and laying still on stretcher with eyes closed. Pt.opens eyes to name but is unable to respond verbally or physically to questions which is his baseline. Pt.placed on continuous cardiac monitoring, SPO2 and BP upon arri eh. Facility staff at bedside. TUTOR * Darius Sanchez MD - 01/07/2024 9:27 PM CST HISTORY OF PRESENT ILLNESS 9:27 PM: Curt Ryder is a 38 y.o. male with a history of seizure disorder, autism, and ADHD, who presents to the Emergency Department with complaints of seizure. Per EMS, the patient is non verbal and has tremors at baseline. He also has history of epilepsy andtremors. The staff states the patient had a witnessed seizure and they administered 10 mg of IM Diazepam at 8:50 PM. History provided by: The EMS personnel and medical records History limited by: The condition of the patient Arrived by: EMS Arrived from: Home Seizure PAST MEDICAL HISTORY REVIEWED MEDICAL: Patient has a past medical history of ADHD (attention deficit hyperactivity disorder), Adjustment reaction with aggression, Allergic rhinitis, Autism, Constipation, COVID-19 virus detected (02/13/2021), Developmental delay disorder, [place]-Gastaut syndrome, Other general symptoms(780.99), Psychiatric disorder, S/P [...] Phenytoin sodium PHYSICAL EXAM INITIAL VS BP: 104/67 (01/07/242130), Heart Rate: 72 bpm (01/07/242130), Resp: 18 (01/07/242130), Pulse: 72(01/07/242130), Temp: 97.2 ??F (36.2 ??C) (01/07/242130), Temp src: Axillary (01/07/242130), SpO2: 99 % (01/07/242130), Height: 5' 7 (170.2 cm) (01/07/242130), Weight: 72.6 kg (160 lb) (01/07/242130), BMI (Calculated): (!) 25.06 (01/07/242130) No LMP for male patient. Physical Exam Vitals and nursing note reviewed. Constitutional: General: He is not in acute distress. Appearance: He is not toxic-appearing. HENT: Head: Normocephalic and atraumatic. Right Ear: External ear normal. Left Ear: External ear normal. Nose: No congestion or rhinorrhea. Mouth/Throat: Mouth: Mucous membranes are moist. Eyes: General: Right eye: No discharge. Left eye: No discharge. Pupils: Pupils are equal, round, and reactive to light. Cardiovascular: Rate and Rhythm: Normal rate and regular rhythm. Heart sounds: No murmur heard. Pulmonary: Effort: Pulmonary effort is normal. Breath sounds: Normal breath sounds. Abdominal: General: There is no distension. Palpations: Abdomen is soft. Musculoskeletal: General: Normal range of motion. Cervical back: Normal range of motion. Skin: General: Skin is warm and dry. Capillary Refill: Capillary refill takes less than 2 seconds. Findings: No rash. Neurological: Mental Status: He is alert. Comments: Nonverbal. Alert. Tracks movements with eyes. DIAGNOSTICS LAB: CBC WITH DIFFERENTIAL - Abnormal Result Value WBC 5.8 RBC 3.88 (*) HEMOGLOBIN 12.3 (*) HEMATOCRIT 35.6 (*) MCV 91.8 MCH 31.7 MCHC 34.6 RDW 13.2 RDW-STDEV 43.9 PLATELETS 172 MPV 9.5 NEUTROPHILS 61 LYMPHOCYTES 27 MONOCYTES 8 EOSINOPHILS 3 BASOPHILS 1 IMMATURE GRANULOCYTES 0 NEUTROPHIL ABSOLUTE 3.56 LYMPHOCYTE ABSOLUTE 1.59 MONOCYTE ABSOLUTE 0.45 EOSINOPHIL ABSOLUTE 0.17 BASOPHILS ABSOLUTE 0.03 IMMATURE GRANULOCYTES ABSOLUTE 0.01 COMPREHENSIVE METABOLIC PANEL - Abnormal SODIUM 137 POTASSIUM 4.1 CHLORIDE 105 CO2 22 CALCIUM 9.0 BUN 15 CREATININE 0.88 GLUCOSE 117 (*) TOTAL PROTEIN 6.9 ALBUMIN 4.2 BILIRUBIN TOTAL 0.3 ALKALINE PHOSPHATASE 160 (*) AST ALT 53 (*) GFR >60 ANION GAP 10 MAGNESIUM LEVEL - Normal MAGNESIUM 2.3 RESPIRATORY PATHOGEN PCR PANEL URINALYSIS WITH REFLEX MICROSCOPIC LAMOTRIGINE LEVEL ZONISAMIDE LEVEL RADIOLOGY: No orders to display EKG: NSR, rate 74, no ST elevation or depression, no T wave inversion, normal axis, normal ND and QT intervals PROCEDURES Procedures MEDICAL DECISION MAKING AND PLAN OF CARE --On initial evaluation, saw and examined the patient. Discussed plan for labs, imaging, and EKG. ED provider and ED nurse verbally discussed patient plan of care at this time. 10:38 PM: Discussed with neurology who agree to consult on this patient. Medical Decision Making 38-year-old male with history of Emmett-Gastaut syndrome, epilepsy, frequent breakthrough seizures presenting to the emergency department from his living facility for a breakthrough seizure. Patient was seen 2 other times in the past 2 weeks for breakthrough seizures. This is an increased frequencyfrom normal. At the facility patient has a protocol where they allow him to seize for 10 minutes, then give benzodiazepines, wait another 10 minutes and then call EMS. So each time he arrives he has had already a prolonged seizure. Patient is currently at his baseline, which is nonverbal, tracks. Vital signs reassuring. Labs without significant concerning derangement, EKG without ischemia. Head CT negative. Discussed with neurology. Plan for admission for further workup for increased seizure activity. Amount and/or Complexity of Data Reviewed Independent Historian: EMS External Data Reviewed: labs and notes. Labs: ordered. Decision-making details documented in ED Course. Radiology: ordered and independent interpretation performed. Decision-making details documented in ED Course. ECG/medicine tests: ordered and independent interpretation performed. Decision- making details documented in ED Course. Risk Prescription drug management. Decision regarding hospitalization. MDM Consults: neurology . New Prescriptions for this Encounter LAST VS BP: 104/67 (01/07/242130), Heart Rate: 72 bpm (01/07/242130), Resp: 18 (01/07/242130), Pulse: 72(01/07/242130), Temp: 97.2 ??F (36.2 ??C) (01/07/242130), Temp src: Axillary (01/07/242130), SpO2: 99 % (01/07/242130) CLINICAL IMPRESSION Final diagnoses: [G40.919] Breakthrough seizure (Primary) DISPOSITION, EDUCATION AND MEDICATION RECONCILIATION Medications reconciled. See after visit summary for patient education on discharged patients. ED Disposition ED Disposition Admit Condition Stable User Darius Sanchez MD Date/Time SatJan 07, 2024 9:47 PM Comment -- ATTESTATION STATEMENTS This note has been prepared by Sandra Weinberg and KEATON acting as a scribe for Dr. Darius Sanchez on 01/07/2024 at 9:55 PM. The scribe's documentation has been prepared under my direction and personally reviewed by me, Darius Sanchez, in its entirety on 01/07/24 at 10:59 PM. I confirm that the note above accurately reflects all work, treatment, procedures, and medical decision making performed by me. Diagnosis Diagnosis Comment Added By Time Added Breakthrough seizure [G40.919] Darius Sanchez MD 01/07/2024 9:47 PM TUTOR documented in this encounter Miscellaneous Notes * Care Plan - Patrizia Dior RN - 01/10/2024 2:10 PM CST Problem: Pain, Potential/Actual Goal: Verbalizes/displays acceptable comfort level or baseline comfort level Description: Outcome: Progressing Problem: Infection Risk/Actual Goal: Infection Risk/Actual: Infection prevention, control, or resolution by discharge Description: Outcome: Progressing Problem: Safety/Fall Goal: Safety/Fall: Absence of fall, injury, harm during hospitalization Description: Absence of/reduce fall risk during current hospitalization related to: 1. History of falls 2. Mobility deficits 3. Medications 4. Mental status/LOC/awareness 5. Toileting needs 6. Volume/electrolyte status 7. Communication/sensory 8. Behavior Outcome: Progressing Problem: Discharge Planning Goal: Identify discharge needs upon admission and through discharge Description: Outcome: Progressing Problem: Cognitive/Perceptual/Neuro Goal: Achieve optimal cognitive/perceptual/neurological function by discharge or maintain baseline function Outcome: Progressing Problem: Genitourinary/Renal Goal: Achieve optimal genitourinary and renal function by discharge or maintain baseline function Outcome: Progressing Problem: Musculoskeletal Goal: Achieve optimal musculoskeletal function by discharge or maintain baseline function Outcome: Progressing Problem: Skin Goal: Maintain skin integrity and/or promote wound healing by discharge Outcome: Progressing Problem: Gastrointestinal Goal: Achieve optimal gastrointestinal function by discharge or maintain baseline function Outcome: Progressing TUTOR * Care Plan - Merna Schneider LMSW - 01/10/2024 9:33 AM CST FERNANDO spoke to Emmy ([phone]) with [facility] who confirmed they reviewed DC summary and patient can return today. Stated their transport will be at the hospital around 1400 and come to the room for transport. INSULATION FOREMAN and RN informed. FERNANDO called patient's legal guardian Sandor to confirm DC today. Sandor agreeable. SW will continue to follow. SONI Schaefer, [facility] Neuro Fitness Coordinator [phone] Problem: Discharge Planning Goal: Identify discharge needs upon admission and through discharge Description: Outcome: Progressing TUTOR * Care Plan - Patrizia Dior RN - 01/09/2024 6:48 PM CST Pt is A&o x0, nonverbal, does not appear to be in pain He is resting in bed Problem: Pain, Potential/Actual Goal: Verbalizes/displays acceptable comfort level or baseline comfort level Description: Outcome: Progressing Problem: Infection Risk/Actual Goal: Infection Risk/Actual: Infection prevention, control, or resolution by discharge Description: Outcome: Progressing Problem: Safety/Fall Goal: Safety/Fall: Absence of fall, injury, harm during hospitalization Description: Absence of/reduce fall risk during current hospitalization related to: 1. History of falls 2. Mobility deficits 3. Medications 4. Mental status/LOC/awareness 5. Toileting needs 6. Volume/electrolyte status 7. Communication/sensory 8. Behavior Outcome: Progressing Problem: Discharge Planning Goal: Identify discharge needs upon admission and through discharge Description: Outcome: Progressing Problem: Cognitive/Perceptual/Neuro Goal: Achieve optimal cognitive/perceptual/neurological function by discharge or maintain baseline function Outcome: Progressing Problem: Genitourinary/Renal Goal: Achieve optimal genitourinary and renal function by discharge or maintain baseline function Outcome: Progressing Problem: Musculoskeletal Goal: Achieve optimal musculoskeletal function by discharge or maintain baseline function Outcome: Progressing Problem: Skin Goal: Maintain skin integrity and/or promote wound healing by discharge Outcome: Progressing Problem: Therapy: Dysphagia/Swallow Goal: Tolerates least restrictive diet utilizing swallowing precautions/strategies with no signs/symptoms of aspiration Outcome: Progressing Problem: Gastrointestinal Goal: Achieve optimal gastrointestinal function by discharge or maintain baseline function Outcome: Progressing TUTOR * Care Plan - Oswald Ross RN - 01/09/2024 1:25 AM CST A&OX 0-1/unable to assess due to not talking. Calm. No pain. Room air. VSS. Body temperature slightly elevated hospitalist notified and PRN tylenol X1 given. General diet with good appetite. Mealneeds assist. Took meds whole with ice cream and water/soda. External catheter in place with adequate UOP. No BM. Problem: Cognitive/Perceptual/Neuro Goal: Achieve optimal cognitive/perceptual/neurological function by discharge or maintain baseline function Outcome: Variance Problem: Musculoskeletal Goal: Achieve optimal musculoskeletal function by discharge or maintain baseline function Outcome: Variance TUTOR * Care Plan - Merna Schneider LMSW - 01/08/2024 2:46 PM CST SW added legal guardianship paperwork to patient's paper chart. [facility] (F: [phone]). If they are able to review paperwork, patient should be able to return to [facility] on Saturday. SW will continue to follow. SONI Schaefer, JER Neuro Fitness Coordinator [phone] TUTOR * Care Plan - Lucy Steele SLP - 01/08/2024 2:09 PM CST Problem: Therapy: Dysphagia/Swallow Goal: Tolerates least restrictive diet utilizing swallowing precautions/strategies with no signs/symptoms of aspiration Outcome: Progressing Flowsheets (Taken 01/08/2024 9337) Therapy Plan of Care: s/o on 01/07 Therapy Start Time: 1130 Therapy Stop Time: 1153 Total Therapy Minutes: 23 Wed: X Pain Rating: Rest: 0 Speech-Language Pathology Swallow Evaluation Pertinent Medical History: Curt Ryder is a 38 y.o. 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 His last appointment with his outpatient neurology PA, Tosha Elaine, was on 11/06/2023. At this time, he reportedly had 22 seizures in September 2023 and 11+ seizures in October 2023. His VNS output parameters were increased during this clinic visit. There was a tentative plan that if he continues to have significant seizure burden in the future, then there would be consideration for starting Epidiolex. Consent: Consent for swallow evaluation given by Patient Orientation/Cognition/Behavior: Pt alert. Non-verbal (baseline). At times appear to nod head yes and pushes any food or drinks away that he is not interested in. Oral Mechanism Examination: Unable to follow commands for formal oral mech evaluation. Upon informal observation, pt appears to maintain majority of natural dentition with the exception of his two top anterior teeth. Oral cavity appears clean and moist. Respiratory Status: Oxygen Therapy O2 Device: room air (01/08/24 1223) Baseline Diet/Dysphagia: Pt's baseline diet is unknown. Currently NPO pending swallow assessment. Results of po trials: ACETYLENE TORCH OPERATOR administering po trials of soda via standard straw, vanilla ice cream, and hue crackers. Oral phase was fairly prompt with some mild oral residuals present following hue cracker trials. Pt benefiting from liquid wash to fully clear oral residuals. AP transit appearedto be functional. Laryngeal elevation was present and appeared appropriate as well. No overt s/s ofaspiration noted. Patient Education: The Pt was educated on the impressions, recommendations, and aspiration precautions. Pt verbalized understanding RN notified of recommendations Impressions: Pt's oropharyngeal swallow appears intact. Pt is safe for diet of regular solids and thin liquids. Use of general aspiration precautions recommended. ACETYLENE TORCH OPERATOR will sign off, as pt appears to be at baseline swallow function. Recommendations: 1. Regular solids and Level 0 Thin liquid 2. Aspiration Precautions: - Sit fully upright for all PO intake including medication, - Alternate liquids and solids, - Small, single bites, - Small, single sips, - Slow rate 3. ACETYLENE TORCH OPERATOR signing off. Pt at baseline level of function and has accomplished all goals. No further skilled ACETYLENE TORCH OPERATOR intervention warranted at this time. Please reconsult if needed. Lucy Moser M.S., [facility]-ACETYLENE TORCH OPERATOR Speech Therapy Ext. [phone] For Weekend ACETYLENE TORCH OPERATOR: [phone] TUTOR * Care Plan - Merna Schneider, NNP - 01/08/2024 9:34 AM CST Care Management Initial Assessment Initial Discharge Planning Assessment completed. Discussed Care Management's role and Discharge planning. Discharge Plan: Plan Discharge To: Home with family assist Does the patient have family and/or a caregiver that is willing, able and available to assist if needed? Yes - Name/Relation: Caregivers at assisted Comments: FERNANDO called patient's assisted house decorator Emmy to complete assessment and confirm demographics. Per Emmy, they are unable to accept patient tomorrow () and are unable to accept over the weekend. Stated they can accept Saturday, but need DC paperwork 24 hours in advance to review. Also stated that patient does not require an onsite at this time, as he was admitted for a seizure and will not require any kind of surgery. Confirmed assisted can provide transport M-F until 1600. FERNANDO also informed by Emmy that patient's mother Sandor is patient's legal guardian. Per chart review, there is no paperwork and no mention of a legal guardian. SW was also unable to find paperworkon [employer]. Per Emmy, she is faxing PA information and can include guardianship paperwork, as well. Patient Discharge Planning Goal: medical stability Patient will potentially discharge to a SNF/NH? No Care Management visited with: assisted house decorator Emmy via phone. Prior to admission, patient resides at: [facility]. Patient resides in a 1 story home with 0 stairs to enter. Patient's bedroom and bathroom are located on the first floor. Prior to admission, living arrangements: group setting. Prior to admission, patient's functional level:requires assistance; uses gait belt for mobility, isable to walk in the community but caregivers always have a wheelchair if needed; needs assistance with iADLs: bathing, dressing, toileting, meal preparation, transportation, shopping, running errands, medication management, housekeeping, telephone use, and managing finances Community Ambulator: yes Prior to admission, the patient has the following DME? Yes - gait belt, helmet, wheelchair Services in the home/community: caregivers at assisted provide all care for patient Receives hemodialysis? No Emergency contact(s): Extended Emergency Contact Information Primary Emergency Contact: ALEKSEYSANDOR Address: [address] [place] [address] [address] [place], [place] [id number] [place] [address] Mobile Relation: Mother Secondary Emergency Contact: EMMY NAVARRO Mobile Relation: Patient Identified Receptionist Nurse Outreach Case Manager needed? No Prescription coverage: yes Preferred Pharmacy verified: [facility] - [place], [place] - [address] [facility] [address], [address] [place] [address] Insurance coverage verified: Payor: MEDICAID / Plan: [place]ICAID [place] / Product Type: Medicaid / Secondary Insurance:N/A Medicaid Status: no spend down Has VA Benefits: no Employment Status: disabled DOES receive Disability Income. PCP verified as: Gulshan Mena, DO Patient has not had a stay at an acute care hospital in the last 30 days. Recent Falls?: Last Known Fall: No falls Plan for transportation at discharge: assisted transport Care Management contact information provided. Care Management will continue to follow and assist asneeded. SONI Schaefer, JER Neuro Fitness Coordinator [phone] Problem: Discharge Planning Goal: Identify discharge needs upon admission and through discharge Description: Outcome: Progressing TUTOR * Care Plan - Felicitas Quintanilla RN - 01/08/2024 1:15 AM CST Problem: Pain, Potential/Actual Goal: Verbalizes/displays acceptable comfort level or baseline comfort level Description: Outcome: Progressing Problem: Infection Risk/Actual Goal: Infection Risk/Actual: Infection prevention, control, or resolution by discharge Description: Outcome: Progressing Problem: Safety/Fall Goal: Safety/Fall: Absence of fall, injury, harm during hospitalization Description: Absence of/reduce fall risk during current hospitalization related to: 1. History of falls 2. Mobility deficits 3. Medications 4. Mental status/LOC/awareness 5. Toileting needs 6. Volume/electrolyte status 7. Communication/sensory 8. Behavior Outcome: Progressing Problem: Discharge Planning Goal: Identify discharge needs upon admission and through discharge Description: Outcome: Progressing Problem: Cognitive/Perceptual/Neuro Goal: Achieve optimal cognitive/perceptual/neurological function by discharge or maintain baseline function Outcome: Progressing Problem: Genitourinary/Renal Goal: Achieve optimal genitourinary and renal function by discharge or maintain baseline function Outcome: Progressing Problem: Musculoskeletal Goal: Achieve optimal musculoskeletal function by discharge or maintain baseline function Outcome: Progressing Problem: Skin Goal: Maintain skin integrity and/or promote wound healing by discharge Outcome: Progressing TUTOR * Gen AI ED Handoff - NURSING, GENERAUSMAN AI HANDOFF NOTE - 01/08/2024 12:05 AM CST ##Situation##: Patient ( ) is a 38-year-old male who has been in the ER for 2 hours. He came to the ER due to seizure. The patient's most recent care team on record included: Anne Connelly. ##Background##: This patient has allergies to Amoxicillin, Carbamazepine, Penicillins, Phenytoin Sodium. ##Assessment##: Patient's most recent vitals recorded in flowsheets were as follows: *BP: 107/57 *Temp: 36.2C, 97.2F *Resp: 18 *Pulse oximetry: 97% *Pulse: 72 Lines most recently placed include: angiocath at 2024-01-07 22:18:29. Last recorded oxygen source was room air. The patient, Curt Ryder, is a 38-year-old male with a history of seizure disorder, autism, ADHD, epilepsy, and tremors. He is non-verbal and has tremors at baseline. The patient had a witnessed seizure and was administered 10 mg of IM Diazepam. He has a VNS (vagus nerve stimulation) device and a history of [place]-Gastaut syndrome, static encephalopathy, and developmental delay disorder. The patient has allergies to Amoxicillin, Carbamazepine, Penicillins, and Phenytoin sodium. The physical exam shows he is alert but non-verbal, tracks movements with his eyes, and has normal vital signs. The CBC and comprehensive metabolic panel showed some abnormal values, including low RBC, hemoglobin, hematocrit, elevated glucose, and alkaline phosphatase. ##Recommendation##: Continue monitoring the patient with continuous cardiac monitoring, SPO2, and BP. Neurology consult has been placed and agreed upon. Ensure the patient is on a stable condition plan. Administer medications as needed for seizure management. Follow up on the abnormal lab results, particularly the low RBC, hemoglobin, hematocrit, elevated glucose, and alkaline phosphatase. Maintain communication with the patient's director of compensation and update them on the plan of care. Ensure the patient is comfortable and monitor for any changes in his condition. Consider further imaging and diagnostics as needed. This summary was created by juwan GOMES. The responses are meant to enhance, not replace normal workflow. Please contact the ED nurse for any follow up or additional information. TUTOR * ED Bed Hold Comment Note - Sally Soliz RN - 01/07/2024 9:27 PM GMAT TUTOR Bed: 18 Expected date: 01/07/24 Expected time: 9:27 PM Means of arrival: [facility]. EMS Comments: 242 - 38M seizure, non-verbal at baseline, caregivers gave 10 mg Diazepam nasally, not seizing for EMS, tremors at baseline TUTOR documented in this encounter Plan of Treatment Not on file documented as of this encounter Procedures Procedure Name Priority Date/Time Associated Diagnosis Comments URINALYSIS W/REFLEX MICROSCOPIC Stat 01/08/2024 1:42 PM GMAT TUTOR ACETYLENE TORCH OPERATOR EVALUATE AND TREAT Routine 10:[address] HEAD WO CONTRAST Stat 01/07/2024 1 1:28 PM GMAT TUTOR RESPIRATORY PATHOGEN PCR PANEL Stat 01/07/2024 10:32 PM GMAT TUTOR ZONISAMIDE LEVEL Stat 01/07/2024 10:1 1 PM GMAT TUTOR CBC WITH DIFFERENTIAL Stat 01/07/2024 10:11 PM GMAT TUTOR LAMOTRIGINE LEVEL Stat 01/07/2024 10: 11 PM GMAT TUTOR MAGNESIUM LEVEL Stat 01/07/2024 10:11 PM GMAT TUTOR COMPREHENSIVE METABOLIC PANEL Stat 01/07/2024 10:11 PM GMAT TUTOR EKG 12-LEAD Stat 01/07/2024 9:33 PM GMAT TUTOR documented in this encounter Results * (ABNORMAL) URINALYSIS WITH REFLEX MICROSCOPIC (01/08/2024 1:42 PM GMAT TUTOR) COLOR UA Yellow Pale to Dark Yellow 01/08/2024 2:05 PM GMAT TUTOR [facility] CLARITY UA Cloudy(A) Clear 01/08/2024 2:05 PM GMAT TUTOR [facility] SPECIFIC GRAVITY UA 1.014 1.003 - 1.035 01/08/2024 2:05 PM GMAT TUTOR [facility] PH UA 7.0 5.0 - 8.0 01/08/2024 2:05 PM GMAT TUTOR [facility] LEUKOCYTE ESTERASE UA Negative Negative 01/08/2024 2:05 PM GMAT TUTOR [facility] NITRITE UA Negative Negative 01/08/2024 2:05 PM [facility] PROTEIN UA Negative Negative 01/08/2024 2:05 PM GMAT TUTOR [facility] GLUCOSE UA Negative Negative 01/08/2024 2:05 PM GMAT TUTOR [facility] KETONES UA Negative Negative 01/08/2024 2:05 PM GMAT TUTOR [facility] UROBILINOGEN UA Normal <2.0 mg/dL 2:05 PM GMAT TUTOR [facility] BILIRUBIN UA Negative Negative 01/08/2024 2:05 PM GMAT TUTOR [facility] BLOOD UA Negative Negative 01/08/2024 2:05 PM GMAT TUTOR [facility] WBC UA 6-10(A) 0 - 2 /hpf 01/08/2024 2:05 PM GMAT TUTOR [facility]ATORY SERVICES - [facility] MELY RBC UA 3-5(A) 0 - 2 /hpf 01/08/2024 2:05 PM GMAT TUTOR [facility] BACTERIA UA 1+(A) Negative /hpf 01/08/2024 2:05 PM [facility] AMORPHOUS CRYSTAL Present(A) Absent 01/08/2024 2:05 PM [facility] Urine URINE SPECIMEN OBTAINED BY CLEAN CATCH PROCEDURE / Unknown Collection / Unknown 01/08/2024 1:42 PM GMAT TUTOR 01/08/2024 1:48 PM GMAT TUTOR Darius Sanchez MD URINE ORDERABLES [facility] CLIA# [id number] [address] [place] [address] * CT HEAD WO CONTRAST (01/07/2024 11:28 PM GMAT TUTOR) Anatomical Region Laterality Modality Head Computed Tomogra phy 01/07/2024 11:2 8 PM GMAT TUTOR Impressions 01/07/2024 11:33 PM GMAT TUTOR IMPRESSION: 1. ??No CT evidence of acute intracranial abnormality within the limitations of patient motion. 2. ??Mild cerebellar atrophy. DICTATION LOCATION: Location 4 Narrative 01/07/2024 11:[address] HEAD WO CONTRAST DATE: 01/07/2024 11:28 [...] RESPIRATORY PATHOGEN PCR PANEL (01/07/2024 10:32 PM GMAT TUTOR) [facility] Respiratory Pathogen PCR Panel NOT DETECTED No respiratory pathogen nucleic acids detected. 01/07/2024 11:41 PM GMAT TUTOR [facility] COVID-19 PCR NOT DETECTED Not Detected 01/07/2024 11:41 PM GMAT TUTOR [facility] Upper Respiratory ENTIRE NASOPHARYNX / Unknown Collection / Unknown 01/07/2024 10:32 PM GMAT TUTOR 01/07/2024 10:38 PM GMAT TUTOR [facility]ATORY [facility] - 01/07/2024 11:41 PM GMAT TUTOR The Film Array Respiratory Panel (RP2.1) is [...] Mycoplasma pneumoniae Darius Sanchez MD 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 - [facility] AL ORDERABLES Performing Organization Address [facility]/State/ZIP Co de Phone Number [facility]# [id number] [address] [place] [address] * ZONISAMIDE LEVEL (01/07/2024 10:11 PM GMAT TUTOR) ZONISAMIDE, BLOOD 21.1 10.0 - 40.0 mcg/mL 01/13/2024 5:49 PM GMAT TUTOR [facility] Comment: (Note) This test was developed and its analytical performance characteristics have been determined by [facility]. It has not been cleared or approved by the FDA. This assay has been validated pursuant to the CLIA regulations and is used for clinical purposes. [facility] [address] [place] [address],[place] [address] Claudia Solo MD, PhD Blood Venipuncture / Unknown 01/07/2024 10:11 PM GMAT TUTOR 01/07/2024 10:16 PM GMAT TUTOR Narrative [facility] - 01/13/2024 5:49 PM GMAT TUTOR Performing Organization Information: ?Site ID: [id number] ?Name: [facility] ?Address: [address] [place] [address], [address] [address] ?Director: Claudia Solo MD,PhD Darius Sanchez MD CHEMISTRY ORDERABLES [facility] [phone] * LAMOTRIGINE LEVEL (01/07/2024 10:11 PM GMAT TUTOR) LAMOTRIGINE LEVEL 12.0 2.5 - 15.0 mcg/mL 01/13/2024 5:49 PM GMAT TUTOR [facility] Comment: This test was developed and its analytical performance characteristics have been determined by [facility] [place]. It has not been cleared or approved by the U.S. Food and Drug Administration. This assay has been validated pursuant to the CLIA regulations and is used for clinical purposes. Blood Venipuncture / Unknown 01/07/2024 10:11 PM GMAT TUTOR 01/07/2024 10:16 PM GMAT TUTOR Narrative [facility] - 01/13/2024 5:49 PM GMAT TUTOR Performing Organization Information: ?Site ID: AMD ?Name: [facility] ?Address: [address] [place] [address] [place], [place] ?Director: Kwasi Pham M.D.,PhD Performing Organization Information: ?Site ID: AMD ?Name: [facility] ?Address: [address] [place] [address] [place] ?Director: Kwasi Pham M.D.,PhD Darius Sanchez MD CHEMISTRY ORDERABLES Performing Organization Address City/[facility]/ZIP Co de Phone Number [facility]ENCE [facility] [phone] * MAGNESIUM LEVEL (01/07/2024 10:11 PM GMAT TUTOR) Pathologist [facility] MAGNESIUM 2.3 1.6 - 2.6 mg/dL 01/07/2024 10:59 PM GMAT TUTOR [facility] Blood Venipuncture / Unknown 01/07/2024 10:11 PM GMAT TUTOR 01/07/2024 10:16 PM GMAT TUTOR Darius Sanchez MD CHEMISTRY ORDERABLES Performing Organization Address City/[facility]/ZIP Co de Phone Number [facility] [employer] [facility] CLIA# [id number] [address] [address] * (ABNORMAL) COMPREHENSIVE METABOLIC PANEL (01/07/2024 10:11 PM GMAT TUTOR) SODIUM 137 136 - 145 mmol/L 01/07/2024 10:59 PM GMAT TUTOR [facility] POTASSIUM 4.1 3.5 - 5.0 mmol/L 01/07/2024 10:59 PM [facility] CHLORIDE 105 98 - 107 mmol/L 01/07/2024 10:59 PM [facility] LABORATORY [facility] - . [facility] CO2 22 22 - 29 mmol/L 01/07/2024 10:59 PM [facility] - [facility] CALCIUM 9.0 8.6 - 10.2 mg/dL 01/07/2024 10:59 PM [facility] BUN 15 6 - 20 mg/dL 01/07/2024 10:59 PM [facility] CREATININE 0.88 0.67 - 1.17 mg/dL 01/07/2024 10:59 PM [facility] GLUCOSE 117(H) 74 - 99 mg/dL 01/07/2024 10:59 PM [facility] TOTAL PROTEIN 6.9 6.7 - 8.6 g/dL 01/07/2024 10:59 PM [facility] ALBUMIN 4.2 3.5 - 5.2 g/dL 01/07/2024 10:59 PM [facility] BILIRUBIN TOTAL 0.3 0.3 - 1.2 mg/dL 01/07/2024 10:59 PM [facility] ALKALINE PHOSPHATASE 160(H) 40 - 129 U/L 01/07/2024 10:59 PM [facility] AST 01/07/2024 10:59 PM [facility] Comment:Test cannot be perfo rmed. Sample hemolysis interference above limits. Redraw if indicated. ALT 53(H) <42 U/L 01/07/2024 10:59 PM [facility] GFR >60 >=60 mL/min/1.7 3 sq meter 01/07/2024 10:59 PM [facility] Comment:eGFR calculated with 2020 CKD-EPI equation. Vegetarian diet, extremely high or low muscle mass, and may affect results. Cystatin C with Glomerular Filtration Rate is a suitable alternative for these patients. ANION GAP 10 8 - 16 mmol/L 01/07/2024 10:59 PM [facility] Blood Venipuncture / Unknown 01/07/2024 10:11 PM GMAT TUTOR 01/07/2024 10:16 PM GMAT TUTOR [facility] - 01/07/2024 10:59 PM GMAT TUTOR Samples containing indocyanine green cause interferences on Total and/or Direct Bilirubin and must not be measured. Darius Sanchez MD CHEMISTRY ORDERABLES [facility] CLIA# [id number] [address] [facility] [address] [place] [address] * (ABNORMAL) CBC WITH DIFFERENTIAL (01/07/2024 10:11 PM GMAT TUTOR) WBC 5.8 4.0 - 9.8 K/uL 01/07/2024 10:26 PM [facility] [employer] [facility] RBC 3.88(L) 4.50 - 5.40 M/uL 01/07/2024 10:26 PM [facility] HEMOGLOBIN 12.3(L) 13.6 - 16.5 g/dL 01/07/2024 10:26 PM [facility] HEMATOCRIT 35.6(L) 40.0 - 48.0 % 01/07/2024 10:26 PM [facility] [employer] [facility] MCV 91.8 82.0 - 99.0 fL 01/07/2024 10:26 PM [facility] [employer] [facility] MCH 31.7 27.2 - 32.6 pg 01/07/2024 10:26 PM [facility] [employer] [facility] MCHC 34.6 31.5 - 35.5 g/dL 01/07/2024 10:26 PM [facility] [employer] [facility] RDW 13.2 11.5 - 14.5 % 01/07/2024 10:26 PM [facility] [employer] [facility] RDW-STDEV 43.9 37.1 - 48.7 fL 01/07/2024 10:26 PM [facility] [employer] [facility] PLATELETS 172 140 - 350 K/uL 01/07/2024 10:26 PM [facility] MPV 9.5 9.3 - 12.4 fL 01/07/2024 10:26 PM [facility] NEUTROPHILS 61 % 01/07/2024 10:26 PM [facility] LYMPHOCYTES 27 % 01/07/2024 10:26 PM [facility] MONOCYTES 8 % 01/07/2024 10:26 PM [facility] EOSINOPHILS 3 % 01/07/2024 10:26 PM [facility] BASOPHILS 1 % 01/07/2024 10:26 PM [facility] IMMATURE GRANULOCYTES 0 % 01/07/2024 10:26 PM [facility] NEUTROPHIL ABSOLUTE 3.56 1.90 - 7.00 K/uL 01/07/2024 10:26 PM [facility] LYMPHOCYTE ABSOLUTE 1.59 0.70 - 4.50 K/uL 01/07/2024 10:26 PM [facility] MONOCYTE ABSOLUTE 0.45 0.10 - 1.30 K/uL 01/07/2024 10:26 PM [facility] EOSINOPHIL ABSOLUTE 0.17 0.00 - 0.70 K/uL 01/07/2024 10:26 PM [facility] [employer] BASOPHILS ABSOLUTE 0.03 0.00 - 0.20 K/uL 01/07/2024 10:26 PM [facility] IMMATURE GRANULOCYTES ABSOLUTE 0.01 0.00 - 0.03 K/uL 01/07/2024 10:26 PM [facility] [employer] Blood Venipuncture / Unknown 01/07/2024 10:11 PM GMAT TUTOR 01/07/2024 10:16 PM GMAT TUTOR Darius Sanchez MD HEMATOLOGY ORDERABLE S [facility] CLIA# [id number] [address] [facility] [place] [address] * EKG 12-LEAD (01/07/2024 9:33 PM GMAT TUTOR) 01/07/2024 9:33 PM GMAT TUTOR Narrative INTERFACE SYSTEM - 01/08/2024 8:25 AM GMAT TUTOR ? [facility] ? [address], [place] [address] ? Test Date: ?2024-01-07 Pat Name: ? CURT RYDER ?Department: ?? 38 ? Room: ? 3348 Gender: ? Male ? Industrial Maintenance Millwright: ?? [email or web address] : ?1985 ? Requested By: DARIUS SANCHEZ ?? Order Number: [id number] ? Reading MD: ?? Rob Almendarez ? Measurements Intervals ?Yantic ? Rate: ? 74 ? P: ?13 ND: ? 174 ?QRS: ?7 QRSD: ? 101 ?T: ?8 QT: ? 387 ? QTc: ?430 ? Interpretive Statements Sinus rhythm Electronically Signed On 01-08-2024 8:25:08 GMAT TUTOR by Rob Almendarez Procedure Note Rob Almendarez MD - 01/08/2024 [facility] [address] [place] [address] Test Date: 2024-01-07 Pat Name: CURT RYDER Department: 38 Room: 334 Gender: Male Industrial Maintenance Millwright: [email or web address] : 1985 Requested By: DARIUS SANCHEZ Order Number: [id number] Reading MD: Rob Almendarez Measurements Intervals Yantic Rate: 74 P: 13 ND: 174 QRS: 7 QRSD: 101 T: 8 QT: 387 QTc: 430 Interpretive Statements Sinus rhythm Electronically Signed On 01-08-2024 8:25:08 GMAT TUTOR by Rob Almendarez Darius Sanchez MD ECG ORDERABLES INTERFACE SYSTEM Refer to clinic/hospital department documented in this encounter Visit Diagnoses Diagnosis Seizure disorder, complex partial, with intractable epilepsy- Primary Localization-related (focal) (partial) epilepsy and epileptic syndromes with complex partial seizures, with intractable epilepsy Breakthrough seizure Unspecified epilepsy with intractable epilepsy Autism Autistic disorder, current or active state Development delay Unspecified delay in development Intractable Emmett-Gastaut syndrome Breakthrough seizure Unspecified epilepsy with intractable epilepsy documented in this encounter Administered Medications Inactive Administered Medications - up to 3 most recent administrations Medication Order MAR Action Action Date Dose Rate Site acetaminophen (TYLENOL) tablet 650 mg 650 mg, Oral, EVERY 4 HOURS PRN, Starting on Sat01/08/24 at 2149, Until Sat01/10/24 at 1800, Pain, Temperature, >100F, Routine Given 01/08/2024 10:08 PM GMAT TUTOR 650 mg busPIRone (BUSPAR) tablet 10 mg 10 mg, Oral, THREE TIMES DAILY, First dose on Sat01/08/24 at 1200, Until Discontinued, Routine, Previous Med: busPIRone (BUSPAR) 10 mg Oral tablet - Orig Sig - Take 10 mg by mouth 3 times daily. Given 01/10/2024 12:50 PM GMAT TUTOR 10 mg Given 01/10/2024 6:58 AM GMAT TUTOR 10 mg Given 01/09/2024 6:21 PM GMAT TUTOR 10 mg cloBAZam (ONFI) tablet 20 mg 20 mg, Oral, DAILY AT BEDTIME, First dose (after last modification) on Sat01/08/24 at 2100, Until Discontinued, Routine, Previous Med: cloBAZam (ONFI) 10 mg Tablet - Orig Sig - Take 40 mg by mouth daily at bedtime. Given 01/09/2024 10:33 PM GMAT TUTOR 20 mg Given 01/08/2024 10:07 PM GMAT TUTOR 20 mg dextrose 5 % in water 250 mL flush bag 25 mL 25 mL, IV, SEE ADMIN INSTRUCTIONS, Starting on Sat01/08/24 at 0941, Until Sat01/10/24 at 1800, Routine docusate sodium (COLACE) capsule 100 mg 100 mg, Oral, TWO TIMES DAILY, First dose on Sat01/08/24 at 0845, Until Discontinued, Routine, Previous Med: docusate sodium (COLACE) 100 mg Oral capsule - Orig Sig - Take 100 mg by mouth 2 times daily. Given 01/10/2024 6:58 AM GMAT TUTOR 100 mg Given 01/09/2024 6:21 PM GMAT TUTOR 100 mg Given 01/09/2024 6:00 AM GMAT TUTOR 100 mg enoxaparin (LOVENOX) injection 40 mg 40 mg, subCUT, EVERY 24 HOURS, First dose on Sat01/08/24 at 1000, Until Discontinued, Routine, Indication: Prophylaxis of VTE, Dose to be adjusted per facility protocol? Yes Given 01/10/2024 12:50 PM GMAT TUTOR 40 mg Abdomen, Right Lower Quadrant Given 01/09/2024 12:07 PM GMAT TUTOR 40 mg A bdomen, Left Lower Quadrant Given 01/08/2024 12:23 PM GMAT TUTOR 40 mg A bdominal Tissue famotidine (PEPCID) tablet 20 mg 20 mg, Oral, TWO TIMES DAILY, First dose on Sat01/08/24 at 0845, Until Discontinued, Routine, Previous Med: famotidine (PEPCID) 20 mg tablet - Orig Sig - Take 20 mg by mouth 2 times daily. Given 01/10/2024 6:58 AM GMAT TUTOR 20 mg Given 01/09/2024 6:21 PM GMAT TUTOR 20 mg Given 01/09/2024 6:00 AM GMAT TUTOR 20 mg lacosamide (VIMPAT) tablet 200 mg 200 mg, Oral, TWO TIMES DAILY, First dose on Sat01/08/24 at 0845, Until Discontinued, Routine, Previous Med: lacosamide (VIMPAT) 100 mg tablet - Orig Sig - Take 200 mg by mouth 2 times daily . Given 01/10/2024 6:57 AM GMAT TUTOR 200 mg Given 01/09/2024 6:20 PM GMAT TUTOR 200 mg Given 01/09/2024 6:00 AM GMAT TUTOR 200 mg lamoTRIgine (LaMICtal) tablet 150 mg 150 mg, Oral, DAILY AFTER LUNCH, First dose on Sat01/08/24 at 1300, Until Discontinued, Routine, Previous Med: lamoTRIgine (LaMICtal) 150 mg tablet - Orig Sig - Take 150 mg by mouth daily after lunch. Given 01/10/2024 12:50 PM GMAT TUTOR 150 mg Given 01/09/2024 12:05 PM GMAT TUTOR 150 mg Given 01/08/2024 12:20 PM GMAT TUTOR 150 mg lamoTRIgine (LaMICtal) tablet 300 mg 300 mg, Oral, TWO TIMES DAILY, First dose on Sat01/08/24 at 0845, Until Discontinued, Routine, Previous Med: lamoTRIgine (LaMICtal) 150 mg tablet - Orig Sig - Take 300 mg by mouth 2 times daily. Given 01/10/2024 6:57 AM GMAT TUTOR 300 mg Given 01/09/2024 6:20 PM GMAT TUTOR 300 mg Given 01/09/2024 6:00 AM GMAT TUTOR 300 mg multivitamin tx with iron and folic acid tablet tablet 1 Tablet 1 Tablet, Oral, DAILY, First dose on Sat01/08/24 at 0900, Until Discontinued, Routine, Previous Med: multivitamin (DAILY-KALYN) tablet - Orig Sig - Take 1 Tab by mouth daily. Given 01/10/2024 6:58 AM GMAT TUTOR 1 Tablet Given 01/09/2024 6:00 AM GMAT TUTOR 1 Tablet Given 01/08/2024 12:22 PM GMAT TUTOR 1 Tablet naloxone (NARCAN) 0.4 mg/mL injection 0.1-0.4 mg 0.1-0.4 mg, IV, SEE ADMIN INSTRUCTIONS, Starting on Sat01/08/24 at 0941, Until Sat01/10/24 at 1800, Routine propranoloL (INDERAL LA) SR 24 hour capsule 160 mg 160 mg, Oral, DAILY, First dose (after last modification) on Sat01/08/24 at 1100, Until Discontinued, Routine, Previous Med: propranoloL (INDERAL LA) 120 mg Long Acting 24 hour capsule - Orig Sig - Take 120 mg by mouth daily at bedtime. Given 01/10/2024 6:58 AM GMAT TUTOR 160 mg Given 01/09/2024 6:02 AM GMAT TUTOR 160 mg sodium chloride 0.9 % flush bag 25 mL 25 mL, IV, SEE ADMIN INSTRUCTIONS, Starting on Sat01/08/24 at 0941, Until Sat01/10/24 at 1800, Routine sodium chloride flush injection 5 mL 5 mL, IV, EVERY 12 HOURS (BlD), First dose on Sat01/08/24 at 0945, Until Discontinued, Routine Given 01/10/2024 6:59 AM GMAT TUTOR 5 mL Given 01/09/2024 6:02 AM GMAT TUTOR 5 mL Given 01/08/2024 6:00 PM GMAT TUTOR 5 mL sodium chloride flush injection 5 mL 5 mL, IV, SEE ADMIN INSTRUCTIONS, Starting on Sat01/08/24 at 0941, Until Sat01/10/24 at 1800, Routine Zonisamide (ZONEGRAN) capsule 400 mg 400 mg, Oral, TWO TIMES DAILY, First dose on Sat01/08/24 at 0900, Until Discontinued, Routine, Previous Med: Zonisamide (ZONEGRAN) 100 mg capsule - Orig Sig - Take 400 mg by mouth 2 times daily. Given 01/10/2024 6:57 AM GMAT TUTOR 400 mg Given 01/09/2024 10:33 PM GMAT TUTOR 400 mg Given 01/09/2024 6:05 AM GMAT TUTOR 400 mg documented in this encounter Active and Recently Administered Medications Times are shown in GMAT TUTOR. Scheduled Medication Order 01/08/2024 01/09/2024 01/10/2024 busPIRone (BUSPAR) tablet 10 mg 10 mg, Oral, THREE TIMES DAILY, First dose on Sat01/08/24 at 1200, Until Discontinued, Routine, Previous Med: busPIRone (BUSPAR) 10 mg Oral tablet - Orig Sig - Take 10 mg by mouth 3 times daily. 1220 (Given - Provider: Rigo Henley, MAURO)1716 (Given - Provider: Rigo Henley RN) 0600 (Given - Provider: Oswald Ross RN)1205 (Given - Provider: Patrizia Dior, MAURO)1821 (Given - Provider: Patrizia Dior, MAURO) 0658 (Given - Provider: Jennifer Giordano, MAURO)1250 (Given - Provider: Patrizia Dior RN) cloBAZam (ONFI) tablet 20 mg 20 mg, Oral, DAILY AT BEDTIME, First dose (after last modification) on Sat01/08/24 at 2100, Until Discontinued, Routine, Previous Med: cloBAZam (ONFI) 10 mg Tablet - Orig Sig - Take 40 mg by mouth daily at bedtime. 2207 (Given - Provider: Oswald Ross, MAURO) 2233 (Given - Provider: Jennifer Giordano, MAURO) cloNIDine HCL (CATAPRES) tablet 0.3 mg 0.3 mg, Oral, DAILY LATE, First dose on Sat01/08/24 at 1600, Until Discontinued, Routine, Previous Med: cloNIDine HCL (CATAPRES) 0.3 mg tablet - Orig Sig - Take 1 Tablet (0.3 mg) by mouth late in the day. , On hold since Sat01/08/2024 at 0838 until manually unheld 0838 (Held by Provider - Provider: Shirlene Alcazar PA-C - Reason: Lab results)1600 (Automatically Held) 1600 (Automatically Held) 1600 (Automatically Held)1800 (Order Unhold - Provider: PROVIDER, DISCHARGE PATIENT) dextrose 5 % in water 250 mL flush bag 25 mL 25 mL, IV, SEE ADMIN INSTRUCTIONS, Starting on Sat01/08/24 at 0941, Until Sat01/10/24 at 1800, Routine docusate sodium (COLACE) capsule 100 mg 100 mg, Oral, TWO TIMES DAILY, First dose on Sat01/08/24 at 0845, Until Discontinued, Routine, Previous Med: docusate sodium (COLACE) 100 mg Oral capsule - Orig Sig - Take 100 mg by mouth 2 times daily. 0845 (Not Given - Provider: Rigo Henley RN - Reason: Other - See Comment - Comment: ACETYLENE TORCH OPERATOR consult)1716 (Given - Provider: Rigo Henley RN) 0600 (Given - Provider: Oswald Ross, MAURO)1821 (Given - Provider: Patrizia Dior, MAURO) 0658 (Given - Provider: Jennifer Giordano, MAURO) enoxaparin (LOVENOX) injection 40 mg 40 mg, subCUT, EVERY 24 HOURS, First dose on Sat01/08/24 at 1000, Until Discontinued, Routine, Indication: Prophylaxis of VTE, Dose to be adjusted per facility protocol? Yes 1223 (Given - Provider: Rigo Henley RN) 1207 (Given - Provider: Patrizia Dior, MAURO) 1250 (Given - Provider: Patrizia Dior, MAURO) famotidine (PEPCID) tablet 20 mg 20 mg, Oral, TWO TIMES DAILY, First dose on Sat01/08/24 at 0845, Until Discontinued, Routine, Previous Med: famotidine (PEPCID) 20 mg tablet - Orig Sig - Take 20 mg by mouth 2 times daily. 1222 (Given - Provider: Rigo Henley RN)1716 (Given - Provider: Rigo Henley RN) 0600 (Given - Provider: Oswald Ross, MAURO)1821 (Given - Provider: Patrizia Dior, MAURO) 0658 (Given - Provider: Jennifer Giordano, MAURO) lacosamide (VIMPAT) tablet 200 mg 200 mg, Oral, TWO TIMES DAILY, First dose on Sat01/08/24 at 0845, Until Discontinued, Routine, Previous Med: lacosamide (VIMPAT) 100 mg tablet - Orig Sig - Take 200 mg by mouth 2 times daily . 1221 (Given - Provider: Rigo Henley RN)1716 (Given - Provider: Rigo Henley RN) 0600 (Given - Provider: Oswald Ross, MAURO)1820 (Given - Provider: Patrizia Dior, MAURO) 0657 (Given - Provider: Jennifer Giordano, MAURO) lamoTRIgine (LaMICtal) tablet 150 mg 150 mg, Oral, DAILY AFTER LUNCH, First dose on Sat01/08/24 at 1300, Until Discontinued, Routine, Previous Med: lamoTRIgine (LaMICtal) 150 mg tablet - Orig Sig - Take 150 mg by mouth daily after lunch. 1220 (Given - Provider: Rigo Henley RN) 1205 (Given - Provider: Patrizia Dior, MAURO) 1250 (Given - Provider: Patrizia Dior RN) lamoTRIgine (LaMICtal) tablet 300 mg 300 mg, Oral, TWO TIMES DAILY, First dose on Sat01/08/24 at 0845, Until Discontinued, Routine, Previous Med: lamoTRIgine (LaMICtal) 150 mg tablet - Orig Sig - Take 300 mg by mouth 2 times daily. 0845 (Not Given - Provider: Rigo Henley RN - Reason: Other - See Comment)1716 (Given - Provider: Rigo Henley RN) 0600 (Given - Provider: Oswald Ross RN)1820 (Given - Provider: Patrizia Dior, MAURO) 0657 (Given - Provider: Jennifer Giordano, MAURO) LORazepam (ATIVAN) 2 mg/mL injection 1 mg 1 mg, IV, ONE TIME ONLY, 1 dose, On Sat01/07/24 at 2200, Routine multivitamin tx with iron and folic acid tablet tablet 1 Tablet 1 Tablet, Oral, DAILY, First dose on Sat01/08/24 at 0900, Until Discontinued, Routine, Previous Med: multivitamin (DAILY-KALYN) tablet - Orig Sig - Take 1 Tab by mouth daily. 1222 (Given - Provider: Rigo Henley RN) 0600 (Given - Provider: Oswald Ross, MAURO) 0658 (Given - Provider: Jennifer Giordano, RN) naloxone (NARCAN) 0.4 mg/mL injection 0.1-0.4 mg 0.1-0.4 mg, IV, SEE ADMIN INSTRUCTIONS, Starting on Sat01/08/24 at 0941, Until Sat01/10/24 at 1800, Routine propranoloL (INDERAL LA) SR 24 hour capsule 160 mg 160 mg, Oral, DAILY, First dose (after last modification) on Sat01/08/24 at 1100, Until Discontinued, Routine, Previous Med: propranoloL (INDERAL LA) 120 mg Long Acting 24 hour capsule - Orig Sig - Take 120 mg by mouth daily at bedtime. 1100 (Not Given - Provider: Rigo Henley RN - Reason: Patient condition) 0602 (Given - Provider: Oswald Ross, MAURO) 0658 (Given - Provider: Jennifer Giordano, RN) sodium chloride 0.9 % flush bag 25 mL 25 mL, IV, SEE ADMIN INSTRUCTIONS, Starting on Sat01/08/24 at 0941, Until Sat01/10/24 at 1800, Routine sodium chloride flush injection 5 mL 5 mL, IV, EVERY 12 HOURS (BlD), First dose on Sat01/08/24 at 0945, Until Discontinued, Routine 0945 (Refused - Provider: Rigo Henley RN)1800 (Given - Provider: Rigo Henley RN) 0602 (Given - Provider: Oswald Ross, MAURO)1800 (Canceled Entry - Provider: Patrizia Dior RN) 0659 (Given - Provider: Jennifer Giordano, MAURO) sodium chloride flush injection 5 mL 5 mL, IV, SEE ADMIN INSTRUCTIONS, Starting on Sat01/08/24 at 0941, Until Sat01/10/24 at 1800, Routine Zonisamide (ZONEGRAN) capsule 400 mg 400 mg, Oral, TWO TIMES DAILY, First dose on Sat01/08/24 at 0900, Until Discontinued, Routine, Previous Med: Zonisamide (ZONEGRAN) 100 mg capsule - Orig Sig - Take 400 mg by mouth 2 times daily. 1222 (Given - Provider: Rigo Henley RN)1733 (Given - Provider: Rigo Henley RN) 0605 (Given - Provider: Oswald Ross, MAURO)2233 (Given - Provider: Jennifer Giordano, RN) 0657 (Given - Provider: Jennifer Giordano, RN) PRN Medication Order 01/08/2024 01/09/2024 01/10/2024 acetaminophen (TYLENOL) tablet 650 mg 650 mg, Oral, EVERY 4 HOURS PRN, Starting on Sat01/08/24 at 2149, Until Sat01/10/24 at 1800, Pain, Temperature, >100F, Routine 2208 (Given - Provider: Oswald Ross RN) bisacodyL (DULCOLAX) delayed release tablet 10 mg 10 mg, Oral, DAILY PRN, Starting on Sat01/08/24 at 0835, Until Sat01/10/24 at 1800, Constipation, Routine, Previous Med: bisacodyl (DULCOLAX) 5 mg Delayed Release tablet - Orig Sig - Take 10 mg by mouth 1 time daily as needed for Constipation. hydrOXYzine HCL (ATARAX) tablet 25 mg 25 mg, Oral, THREE TIMES DAILY PRN, Starting on Sat01/08/24 at 0837, Until Sat01/10/24 at 1800, Itching, Routine, Previous Med: hydrOXYzine HCL (ATARAX) 25 mg tablet - Orig Sig - Take 25 mg by mouth 3 times daily as needed for Itching. magnesium hydroxide (MILK OF MAGNESIA) oral suspension 30 mL 30 mL, Oral, DAILY PRN, Starting on Sat01/08/24 at 0837, Until Sat01/10/24 at 1800, Constipation, Routine, Previous Med: magnesium hydroxide (MILK OF MAGNESIA) 400 mg/5 mL suspension - Orig Sig - Take 30 mL by mouth 1 time daily as needed for Constipation. documented in this encounter Additional Health Concerns Infection Onset Date Last Indicated Resolved Time R/O Respiratory 01/07/2024 01/07/2024 01/07/2024 1 1:41 PM GMAT TUTOR documented as of this encounter Care Teams Cop Breaker Relationship Specialty Start Date End Date Gulshan Mena DO [address] [place] [address] PCP - General 01/26/15 documented as of this encounter
--- OUTSIDE RECORDS SUMMARY | 2024-02-12 05:12 | XMS_ITS | Encounter Summary ---
Author Organization [facility] Address [address] [place] [address] Care Team Providers Care School Athletic Director Name Role Phone Gulshan Mena DO Primary Care Provider [phone] Reason for Visit * Reason Comments Post-op Visit S/p marilou shin 11/15 Encounter Details Date Type Department Care Team (Latest Contact Info) Description 12/04/2023 10:00 AM CDT Office Visit [facility] Trauma and General Surgery [address] [facility] [address] [place] [address] Henok Artis MD [address] [facility] [address] [place] [address] Postoperative follow-up (Primary Dx) Social History Tobacco Use Types [...] Sign Reading Time Taken Comments Blood Pressure 110/70 12/04/2023 10:10 AM CDT Pulse 95 12/04/2023 10:10 AM CDT Temperature - - Respiratory Rate 18 12/04/2023 10:10 AM CDT Oxygen Saturation 98% 12/04/2023 10:10 AM CDT Inhaled Oxygen Concentration - - Weight 75.8 kg (167 lb) 12/04/2023 10:10 AM CDT Height 170.2 cm (5' 7 ) 12/04/2023 10:10 AM CDT Body Mass Index 26.16 12/04/2023 10:10 AM CDT documented in this encounter Progress Notes * Henok Artis MD - 12/04/2023 10:28 AM CDT Progress Note 12/04/23 Subjective: Patient is s/p laparoscopic converted to an open cholecystectomy on 11/16/23 No complaints. Tolerating PO. Having BM. No nausea or emesis. Denies fever or chills. Past Medical History: Diagnosis Date ADHD (attention deficit hyperactivity disorder) Adjustment reaction with aggression Allergic rhinitis Autism Constipation COVID-19 virus detected 02/13/2021 02/13/2021 Developmental delay disorder Emmett-Gastaut syndrome Other general symptoms(780.99) Aggression-Adjustment Disorder Psychiatric disorder anxiety S/P placement of VNS (vagus nerve stimulation) device Seizure disorder Static encephalopathy Tremors of nervous system Past Surgical History: Procedure Laterality Date HX WISDOM TEETH EXTRACTION 2008 front teeth MS CHOLECSTOT/CHOLECSTOST W/EXPL DRG/RMVL ST1 SPX N/A 11/16/2023 CONVERTED TO OPEN CHOLECYSTOMY performed by Henok Artis MD at [facility] OR MAIN MS INSJ/RPLCMT CRANIAL NEUROSTIM GENER 2/> ELTRDS Left 10/27/2013 VAGUS NERVE STIMULATOR PLACEMENT performed by Hieu Macias MD at [facility] OR MS LAPAROSCOPY SURG CHOLECYSTECTOMY N/A 11/16/2023 CHOLECYSTECTOMY LAPAROSCOPIC performed by Henok Artis MD at [facility] OR MAIN MS UNLISTED PROCEDURE DENTOALVEOLAR STRUCTURES N/A 10/20/2014 DENTAL REHABILITATION performed by Dereck Dunbar DDS at [facility] OR MAIN MS UNLISTED PROCEDURE DENTOALVEOLAR STRUCTURES N/A 12/06/2016 DENTAL REHABILITATION performed by Dereck Dunbar DDS at [facility] OR MAIN Family History Problem Relation Name Age of Onset Other Father PSYCHIATRIC ISSUES Other Mother SANDOR LERNER Healthy Sister CRISTOBAL Healthy Brother MERRILL Hypertension Maternal Grandmother High Cholesterol Maternal Grandfather Hypertension Maternal Grandfather Diabetes Maternal Grandfather Cancer Maternal Grandfather PERHAPS KIDNEY OR LIVER Hypertension Paternal Grandmother Diabetes Paternal Grandmother Healthy Sister YOBANY Healthy Brother EDWIGE Tobacco Use: Low Risk (12/04/2023) Patient History Smoking Tobacco Use: Never Smokeless Tobacco Use: Never Passive Exposure: Not on file Objective: BP 110/70 (BP Location: Left arm, Patient Position (BP): Sitting, BP Cuff Size: Adult) Pulse 95 Resp 18 Ht 5' 7 (1.702 m) Wt 75.8 kg (167 lb) SpO2 98% BMI 26.16 kg/m?? Physical Examination: Gen: no distress HEENT: normal Abdomen: soft, ND, NT, incision clean/dry, healed, helen removed, steri strips placed. Extremities: No edema, pulses intact Data Review: Pathology: acute gangrenous cholecystitis with abscess A/P Keep Incision clean and dry Do not remove steri strips until it falls off Weight lift restrictions: 10 lbs for two months. Follow up with PCP for medical management Follow up with surgery as needed. Henok Artis MD, 12/04/2023 10:33 AM * Arleen Guzmán, [facility] - 12/04/2023 10:00 AM CDT Patient is here for a Follow Up visit from ED admit on 11/13/2023 for epilepsy, presenting with seizure and Acute calculous cholecystitis - S/p Laparoscopic converted to open cholecystocolotomy on 11/[address] Artis. Pt discharged to care facility (epilepsy+seizure) on 11/27, but back to ED on 11/28 for seizure. *Pt is non-verbal* Pt here for post op wound check and staple removal. has complaints of decrease in appetite (unsure if related to pain).. Pain is controlled with current analgesics. Medication(s) being used: acetaminophen. No GI Sx absent fever documented in this encounter Miscellaneous Notes * Patient Instructions - Henok Artis MD - 12/04/2023 10:33 AM CDT Keep Incision clean and dry Do not remove steri strips until it falls off Weight lift restrictions: 10 lbs for two months. Follow up with PCP for medical management Follow up with surgery as needed. documented in this encounter Plan of Treatment Not on file documented as of this encounter Visit Diagnoses Diagnosis Postoperative follow-up- Primary Follow-up examination, following unspecified surgery documented in this encounter Additional Health Concerns Infection Onset Date Last Indicated Resolved Time Respiratory Syncytial Virus (RSV) 11/13/2023 024 12/11/2023 1:16 AM CDT documented as of this encounter Care Teams School Athletic Director Relationship Specialty Start Date End Date Gulshan Mena DO [address] [place] [id number] PCP - General 01/26/15 documented as of this encounter
--- OUTSIDE RECORDS SUMMARY | 2024-02-12 05:12 | XMS_ITS | Encounter Summary ---
Author Organization [facility] Address [address] Miguel: Epic Prelude ADT [place] [address] Care Team Providers Care Baller Tender Name Role Phone Gulshan Mena DO Primary Care Provider [phone] Encounter Details Date Type Department Care Team (Latest Contact Info) Description 02/01/2024 Travel Social History Tobacco Use Types Packs/Day [...] on filedocumented in this encounter Care Teams Baller Tender Relationship Specialty Start Date End Date Gulshan Mena DO [address] [place] [address] PCP - General 01/26/15 documented as of this encounter
--- OUTSIDE RECORDS SUMMARY | 2024-02-12 05:12 | XMS_ITS | Encounter Summary ---
Author Organization [employer] Address [address] [place] [address] Care Team Providers Care Business Applications Manager Name Role Phone RajeshGulshan Primary Care Provider [phone] Reason for Visit * Reason Comments Seizure 38 y/o male presents to the ER after a seizure today from home. Pt has 24/hr care and caregivers reported Pt started seizing at 1940 and did not stop seizing until EMS arrived at 2014. Pt given 20mg of Valtoko intranasally by caregivers. When EMS arrived Pt received 5mg versed IM. EMS reported Pt stopped seizing after receiving the versed. Per EMS Pts BG was 66. Pt is A/Ox0 at baseline, has hx of autism and developmental delays. Pt has tremors at baseline. * Auth/Cert (Routine) Specialty Diagnoses / Procedures Referred By Padmini vogt Referred To Contact Emergency Medicine [facility] Emergency Dept [address] [place] [address] Referral ID Status Reason Start Date Expiration Date Visits Re quested Visits Authorized [id number] 1 1 Encounter Details Date Type Department Care Team (Late st Contact Info) Description 12/23/2023 8:54 PM ROPE COILING MACHINE OPERATOR - 12/24/2023 12:50 AM [facility] [[email or web address]] Emergency [facility] Emergency Department [address] [place] [address] Dereck Perez MD [address] [place] [address] Seizure (Primary Dx) Discharge Disposition: Home or Self Care Social [...] Sign Reading Time Taken Comments Blood Pressure 96/61 12/24/2023 12:00 AM ROPE COILING MACHINE OPERATOR Pulse 62 12/23/2023 11:00 PM ROPE COILING MACHINE OPERATOR Temperature 36.4 ??C (97.6 ??F) 12/24/2023 12:[address] Respiratory Rate 14 12/24/2023 12:00 AM ROPE COILING MACHINE OPERATOR Oxygen Saturation 96% 12/24/2023 12:00 AM ROPE COILING MACHINE OPERATOR Inhaled Oxygen Concentration - - Weight - - Height - - Body Mass Index - - documented in this encounter Discharge Instructions * Discharge Instructions* Dereck Perez MD - 12/23/2023 10:46 PM ROPE COILING MACHINE OPERATOR Return for any fevers, chest pain, shortness or breath, worsening pain or symptoms, or any new concerns. Follow up with your regular doctor this week Return for any new concerns Take home medications as prescribed COILING MACHINE OPERATOR documented in this encounter Medications at Time of Discharge Medication Sig Dispensed Refills Start Date End Date cloNIDine HCL (CATAPRES) 0.3 mg tablet Take [...] Allergies. diazePAM (Valtoco) 10 mg/spray (0.1 mL) [place], Non-Aerosol Administer 10 mg in each nostril [...] by mouth 1 time daily as needed. propranoloL (INDERAL LA) 160 mg Long Acting 24 hour capsule Take 120 mg by mouth daily. 01/08/2024 documented as of this encounter ED Notes * Fior Jain RN - 12/24/2023 12:47 AM CST Pts Mom called 3x times to update her on Pts dc to come back home with caregiver Marquise Discharge instructions reviewed with patient. Patient verbalizes understanding of teaching and needfor follow up care. Pt denies any other needs or concerns at this time. COILING MACHINE OPERATOR * Fior Jain RN - 12/23/2023 10:15 PM CST Patient resting comfortably and quietly in bed with even and non-labored respirations. No new verbalized needs at this time. Call light in reach. Caregiver at bedside COILING MACHINE OPERATOR * Fior Jain RN - 12/23/2023 9:12 PM CST Chief Complaint Patient presents with Seizure 38 y/o male presents to the ER after a seizure today from home. Pt has 24/hr care and caregivers reported Pt started seizing at 1940 and did not stop seizing until EMS arrived at 2014. Pt given 20mg of Valtoko intranasally by caregivers. When EMS arrived Pt received 5mg versed IM. EMS reported Pt stopped seizing after receiving the versed. Per EMS Pts BG was 66. Pt is A/Ox0 at baseline, has hx of autism and developmental delays. Pt has tremors at baseline. A&Ox0 upon arrival (baseline) RR equal and unlabored. Skin pink, warm and dry. Pt connected to continuous cardiac monitoring, NIBP, and pulse oximetry. Bed in low position, wheels locked and calllight in reach. COILING MACHINE OPERATOR * Dereck Perez MD - 12/23/2023 9:08 PM CST HISTORY OF PRESENT ILLNESS Documented Triage Chief Complaint: Seizure 9:08 PM: Travis Beebe is a 38 y.o. male with a history of seizure disorder, autism, and ADHD, who presents to the Emergency Department. Per EMS: They report the patient had a seizure today from 7:40 PM to 8:15 PM and his care givers gave him nasal diazepam. EMS administered 5 mg IM versed en route. They report the patient's caregivers are on their way . Physician(s): Gulshan Mena DO History provided by: Medical records and the EMS personnel History limited by: A developmental delay interpreter for the deaf used: No Arrived by: Private vehicle Arrived from: Home PAST MEDICAL HISTORY REVIEWED MEDICAL: Patient has a past medical history of ADHD (attention deficit hyperactivity disorder), Adjustment reaction with aggression, Allergic rhinitis, Autism, Constipation, COVID-19 virus detected (02/13/2021), Developmental delay disorder, [place] syndrome, Other general symptoms(780.99), Psychiatric disorder, S/P [...] Phenytoin sodium PHYSICAL EXAM INITIAL VS BP: 117/77 (12/23/232101), Heart Rate: 75 bpm (12/23/232101), Resp: 17 (12/23/232101), Pulse: (not recorded), Temp: 97.7 ??F (36.5 ??C) (12/23/232101), Temp src: Axillary (12/23/232101), SpO2: 98 % (12/23/232101), Height: (not recorded), Weight: (not recorded), BMI (Calculated): (not recorded) No LMP for male patient. Physical Exam Vitals and nursing note reviewed. Constitutional: General: He is not in acute distress. Appearance: He is not diaphoretic. HENT: Head: Normocephalic and atraumatic. Mouth/Throat: Pharynx: No oropharyngeal exudate. Eyes: General: No scleral icterus. Neck: Trachea: No tracheal deviation. Cardiovascular: Rate and Rhythm: Normal rate and regular rhythm. Heart sounds: Normal heart sounds. No murmur heard. No friction rub. No gallop. Pulmonary: Effort: No respiratory distress. Breath sounds: No wheezing or rales. Chest: Chest wall: No tenderness. Abdominal: General: Bowel sounds are normal. There is no distension. Palpations: Abdomen is soft. There is no mass. Tenderness: There is no abdominal tenderness. There is no guarding or rebound. Musculoskeletal: General: No tenderness. Lymphadenopathy: Cervical: No cervical adenopathy. Skin: Findings: No erythema or rash. Neurological: Mental Status: He is alert. Comments: Tracks as you walk across the room. Moving all extremities spontaneously. Does not followcommands or answer questions, which is baseline per caregivers. Psychiatric: Judgment: Judgment normal. DIAGNOSTICS LAB: CBC WITH DIFFERENTIAL - Abnormal Result Value WBC 5.5 RBC 3.63 (*) HEMOGLOBIN 11.3 (*) HEMATOCRIT 34.8 (*) MCV 95.9 MCH 31.1 MCHC 32.5 RDW 13.3 RDW-STDEV 47.1 PLATELETS 155 MPV 9.5 NEUTROPHILS 64 LYMPHOCYTES 24 MONOCYTES 8 EOSINOPHILS 3 BASOPHILS 1 IMMATURE GRANULOCYTES 0 NEUTROPHIL ABSOLUTE 3.50 LYMPHOCYTE ABSOLUTE 1.33 MONOCYTE ABSOLUTE 0.44 EOSINOPHIL ABSOLUTE 0.18 BASOPHILS ABSOLUTE 0.03 IMMATURE GRANULOCYTES ABSOLUTE 0.02 COMPREHENSIVE METABOLIC PANEL PROLACTIN RADIOLOGY: No orders to display EKG: PROCEDURES Procedures MEDICAL DECISION MAKING AND PLAN OF CARE --On initial evaluation, saw and examined the patient. Discussed plan for labs. ED provider and ED nurse verbally discussed patient plan of care at this time. Medical Decision Making 38-year-old white male presents to the emergency room after having a seizure at home. Differential diagnosis includes, is not limited to, epilepsy, electrolyte disturbance, meningitis. Prior encounters to healthcare system reviewed and he is nonverbal and does have a history of epilepsy. Imaging obtained in the emergency room was none. History is provided by EMS personnel and prehospital notes asno one was with the patient and the patient is nonverbal at baseline. Social determinants to healthinclude chronic illness. Meds given in the emergency room were none. The patient was observed in the emergency room for several hours. There is no further seizure activity. Blood work was unremarkable . The patient was discharged home in stable condition to follow-up with his primary care physician. Amount and/or Complexity of Data Reviewed Independent Historian: EMS Labs: ordered. Decision-making details documented in ED Course. Clinical Scoring & Consults . New Prescriptions for this Encounter LAST VS BP: 117/77 (12/23/232101), Heart Rate: 75 bpm (12/23/232101), Resp: 17 (12/23/232101), Pulse: (not recorded), Temp: 97.7 ??F (36.5 ??C) (12/23/232101), Temp src: Axillary (12/23/232101), SpO2: 98 % (12/23/232101) CLINICAL IMPRESSION Final diagnoses: [R56.9] Seizure (Primary) DISPOSITION, EDUCATION AND MEDICATION RECONCILIATION Medications reconciled. See after visit summary for patient education on discharged patients. ED Disposition ED Disposition Discharge Condition Stable User Dereck Perez MD Date/Time SatDec 23, 2023 10:46 PM Comment -- ATTESTATION STATEMENTS This note has been prepared by Yolanda Feliz Enterprise Application Developer, for Dr. Dereck Perez on 12/23/23 8:59 PM. The scribe's documentation has been prepared under my direction and personally reviewed by me in its entirety. I confirm that the note above accurately reflects all work, treatment, procedures, and medical decision making performed by me -- Chris on 12/23/23 10:49 PM. Diagnosis Diagnosis Comment Added By Time Added Seizure [R56.9] Dereck Perez MD 12/23/2023 10:46 PM COILING MACHINE OPERATOR documented in this encounter Miscellaneous Notes * ED Bed Hold Comment Note - Sebastien Nicholson RN - 12/23/2023 8:54 PM ROPE COILING MACHINE OPERATOR Bed: 21 Expected date: Expected time: Means of arrival: [place] EMS Comments: Sccad 241-37 seizure COILING MACHINE OPERATOR documented in this encounter Plan of Treatment Not on file documented as of this encounter Procedures Procedure Name Priority Date/Time Associated Diagnosis Comments CBC WITH DIFFERENTIAL Stat 12/23/2023 10:05 PM ROPE COILING MACHINE OPERATOR PROLACTIN Stat 12/23/2023 10:05 PM ROPE COILING MACHINE OPERATOR COMPREHENSIVE METABOLIC PANEL Stat 12/23/2023 10:05 PM ROPE COILING MACHINE OPERATOR documented in this encounter Results * PROLACTIN (12/23/2023 10:05 PM ROPE COILING MACHINE OPERATOR) Pathologist [facility] PROLACTIN 14.6 4.0 - 15.2 ng/mL 12/23/2023 10:54 PM ROPE COILING MACHINE OPERATOR [employer] LABORATORY SERVICES - [facility] Blood Venipuncture / Unknown 12/23/2023 10:05 PM ROPE COILING MACHINE OPERATOR 12/23/2023 10:08 PM ROPE COILING MACHINE OPERATOR Dereck Perez MD CHEMISTRY ORDERABLES [facility] [employer] [facility]# [id number] [address] [facility] [place] [address] * (ABNORMAL) COMPREHENSIVE METABOLIC PANEL (12/23/2023 10:05 PM ROPE COILING MACHINE OPERATOR) [facility] SODIUM 136 136 - 145 mmol/L 12/23/2023 10:54 PM [facility] [[email or web address]] [employer] LABOR[facility]ORY SERVICES - [facility] POTASSIUM 3.9 3.5 - 5.0 mmol/L 12/23/2023 10:54 PM [facility] [[email or web address]] [employer] LABORATORY SERVICES - . [facility] CHLORIDE 107 98 - 107 mmol/L 12/23/2023 10:54 PM [facility] [[email or web address]] [employer] LABORATORY SERVICES - . [facility] CO2 20(L) 22 - 29 mmol/L 12/23/2023 10:54 PM ROPE COILING MACHINE OPERATOR [employer] [facility] - . [facility] CALCIUM 9.1 8.6 - 10.2 mg/dL 12/23/2023 10:54 PM ROPE COILING MACHINE OPERATOR [employer] [facility] BUN 18 6 - 20 mg/dL 12/23/2023 10:54 PM ROPE COILING MACHINE OPERATOR [employer] [facility]AT[facility] - . [facility] CREATININE 0.84 0.67 - 1.17 mg/dL 12/23/2023 10:54 PM ROPE COILING MACHINE OPERATOR [employer] LABORATORY SERVICES - . [facility] GLUCOSE 116(H) 74 - 99 mg/dL 12/23/2023 10:54 PM ROPE COILING MACHINE OPERATOR [employer] LABORATORY SERVICES - . [facility] TOTAL PROTEIN 6.7 6.7 - 8.6 g/dL 12/23/2023 10:54 PM [facility] ALBUMIN 3.9 3.5 - 5.2 g/dL 12/23/2023 10:54 PM [facility] BILIRUBIN TOTAL 0.2(L) 0.3 - 1.2 mg/dL 12/23/2023 10:54 PM [facility] ALKALINE PHOSPHATASE 154(H) 40 - 129 U/L 12/23/2023 10:54 PM [facility] AST 27 <41 U/L 12/23/2023 10:54 PM [facility] ALT 39 <42 U/L 12/23/2023 10:54 PM [facility] GFR >60 >=60 mL/min/1.7 3 sq meter 12/23/2023 10:54 PM [facility] Comment:eGFR calculated with 2020 CKD-EPI equation. Vegetarian diet, extremely high or low muscle mass, and may affect results. Cystatin C with Glomerular Filtration Rate is a suitable alternative for these patients. ANION GAP 9 8 - 16 mmol/L 12/23/2023 10:54 PM [facility] Blood Venipuncture / Unknown 12/23/2023 10:05 PM ROPE COILING MACHINE OPERATOR 12/23/2023 10:08 PM [facility] - 12/23/2023 10:54 PM ROPE COILING MACHINE OPERATOR Samples containing indocyanine green cause interferences on Total and/or Direct Bilirubin and must not be measured. Dereck Perez MD CHEMISTRY ORDERABLES [facility] CLIA# [id number] [address] [facility] [place] [address] * (ABNORMAL) CBC WITH DIFFERENTIAL (12/23/2023 10:05 PM ROPE COILING MACHINE OPERATOR) WBC 5.5 4.0 - 9.8 K/uL 12/23/2023 10:15 PM [facility] RBC 3.63(L) 4.50 - 5.40 M/uL 12/23/2023 10:15 PM ROPE COILING MACHINE OPERATOR [employer] [facility] HEMOGLOBIN 11.3(L) 13.6 - 16.5 g/dL 12/23/2023 10:15 PM ROPE COILING MACHINE OPERATOR [employer] [facility] - [facility] HEMATOCRIT 34.8(L) 40.0 - 48.0 % 12/23/2023 10:15 PM ROPE COILING MACHINE OPERATOR [employer] [facility] MCV 95.9 82.0 - 99.0 fL 12/23/2023 10:15 PM ROPE COILING MACHINE OPERATOR [employer] [facility] MCH 31.1 27.2 - 32.6 pg 12/23/2023 10:15 PM ROPE COILING MACHINE OPERATOR [employer] [facility] MCHC 32.5 31.5 - 35.5 g/dL 12/23/2023 10:15 PM ROPE COILING MACHINE OPERATOR [employer] [facility] RDW 13.3 11.5 - 14.5 % 12/23/2023 10:15 PM ROPE COILING MACHINE OPERATOR [employer] [facility] RDW-STDEV 47.1 37.1 - 48.7 fL 12/23/2023 10:15 PM ROPE COILING MACHINE OPERATOR [employer] [facility] PLATELETS 155 140 - 350 K/uL 12/23/2023 10:15 PM ROPE COILING MACHINE OPERATOR [employer] [facility] MPV 9.5 9.3 - 12.4 fL 12/23/2023 10:15 PM ROPE COILING MACHINE OPERATOR [employer] [facility] NEUTROPHILS 64 % 12/23/2023 10:15 PM ROPE COILING MACHINE OPERATOR [employer] [facility] LYMPHOCYTES 24 % 12/23/2023 10:15 PM ROPE COILING MACHINE OPERATOR [employer] [facility] MONOCYTES 8 % 12/23/2023 10:15 PM ROPE COILING MACHINE OPERATOR [employer] [facility] EOSINOPHILS 3 % 12/23/2023 10:15 PM ROPE COILING MACHINE OPERATOR [employer] [facility] BASOPHILS 1 % 12/23/2023 10:15 PM ROPE COILING MACHINE OPERATOR [employer] [facility] IMMATURE GRANULOCYTES 0 % 12/23/2023 10:15 PM ROPE COILING MACHINE OPERATOR [employer] [facility] NEUTROPHIL ABSOLUTE 3.50 1.90 - 7.00 K/uL 12/23/2023 10:15 PM ROPE COILING MACHINE OPERATOR [employer] [facility] LYMPHOCYTE ABSOLUTE 1.33 0.70 - 4.50 K/uL 12/23/2023 10:15 PM ROPE COILING MACHINE OPERATOR [facility] MONOCYTE ABSOLUTE 0.44 0.10 - 1.30 K/uL 12/23/2023 10:15 PM ROPE COILING MACHINE OPERATOR [facility] EOSINOPHIL ABSOLUTE 0.18 0.00 - 0.70 K/uL 12/23/2023 10:15 PM ROPE COILING MACHINE OPERATOR [facility] BASOPHILS ABSOLUTE 0.03 0.00 - 0.20 K/uL 12/23/2023 10:15 PM ROPE COILING MACHINE OPERATOR [facility] IMMATURE GRANULOCYTES ABSOLUTE 0.02 0.00 - 0.03 K/uL 12/23/2023 10:15 PM ROPE COILING MACHINE OPERATOR [facility] Blood Venipuncture / Unknown 12/23/2023 10:05 PM ROPE COILING MACHINE OPERATOR 12/23/2023 10:08 PM ROPE COILING MACHINE OPERATOR Dereck Perez MD HEMATOLOGY ORDERABLE S [facility] LABORATORY SERVICES [facility]# [id number] [address] [place] [address] documented in this encounter Visit Diagnoses Diagnosis Seizure- Primary Other convulsions documented in this encounter Care Teams Business Applications Manager Relationship Specialty Start Date End Date Gulshan Mena DO [address] [place] [id number] PCP - General 01/26/15 documented as of this encounter
--- OUTSIDE RECORDS SUMMARY | 2024-02-12 05:12 | XMS_ITS | Encounter Summary ---
Author Organization [employer] [facility] Address [address] [place] [address] Care Team Providers [employer] Name Role Phone Gulshan Mena DO Primary Care Provider [phone] Reason for Visit * Reason Comments Seizure Patient presents to ED from [facility] after having a seizure lasting approximately 20 minutes. Long hx of seizures. Patient got 2 doses of intranasal diazepam and his vagus nerve stimulator with no relief of the seizure. Patient has hx of autism and aggressive behavior and is now awake upon arrival swinging at staff. No injury from the seizure. * Auth/Cert (Routine) Specialty Diagnoses / Procedures Referred By Padmini vogt Referred To Contact Emergency Medicine [facility] Emergency Dept [address] [place] [address] Referral ID Status Reason Start Date Expiration Date Visits Re quested Visits Authorized [id number] 1 1 Encounter Details Date Type Department Care Team (Late st Contact Info) Description 11/29/2023 2:30 PM CDT - 11/29/2023 10:38 PM CDT Emergency [facility] Emergency Department [address] [place] [address] [place] [address] [place] [address] Breakthrough seizure (Primary Dx); Nonintractable epilepsy without status epilepticus, unspecified epilepsy type Discharge Disposition: Home or Self Care Social [...] Sign Reading Time Taken Comments Blood Pressure 118/91 11/29/2023 4:30 PM CDT Pulse 140 11/29/2023 2:31 PM CDT Temperature 36.2 ??C (97.1 ??F) 11/29/2023 2:31 PM CD T Respiratory Rate 18 11/29/2023 2:31 PM CDT Oxygen Saturation 96% 11/29/2023 2:31 PM CDT Inhaled Oxygen Concentration - - Weight - - Height - - Body Mass Index - - documented in this encounter Discharge Instructions * Discharge Instructions* Juany Hu MD - 11/29/2023 4:43 PM CDT Travis's workup today was reassuring. His inflammatory markers were normal and his electrolytes were normal. He should follow-up with his neurologist for medication management for his seizures. He should follow-up with his primary doctor in the next several days for reevaluation. Return immediately if you develop worsening pain, shortness of breath, fevers, or any new or concerning symptoms. * Attachments The following attachments cannot be sent through Care Everywhere. * Epilepsy (Kazakh) documented in this encounter Medications at Time [...] Allergies. diazePAM (Valtoco) 10 mg/spray (0.1 mL) [place], Non-Aerosol Administer 10 mg in each nostril [...] by mouth 1 time daily as needed. naproxen (NAPROSYN) 250 mg tablet Take 1 Tablet (250 mg) by mouth 2 times daily with meals for 14 days. 28 Tablet 11/27/2023 12/11/2023 propranoloL (INDERAL LA) 160 mg Long Acting 24 hour capsule Take 120 mg by mouth daily. 01/08/2024 documented as of this encounter ED Notes * Christie Cain RN - 11/29/2023 8:49 PM CDT Linens and dirty brief changed. Pt cleaned and clean brief and linens placed under pt. Caregiver remains at bedside. * Gayatri Cam RN - 11/29/2023 5:00 PM CDT Pt cleaned up and new diaper placed on patient. Caregiver updated on discharge plan. States the patient will need an EMS transport back to facility. * Rajat Vicente RN - 11/29/2023 3:00 PM CDT Patient is a 38-year-old male presents to [facility] emergency department via EMS complaints of a seizure from his care home last approximately 20 minutes long. According to EMS patient was given 2 dosesof intranasal diazepam along with using his vagus nerve stimulator none of which stopped the seizure. Patient seizure eventually stopped on his own according to EMS upon their arrival patient was postictal with intermittent episodes of waking up and being agitated. Patient has history of autism andaggressive behavior. He arrives to ED awake but nonverbal swinging at staff. Caregiver states that the patient also has RSV was diagnosed a little over a week ago. Patient vital signs are stable he does not appear in any acute distress. * Juany Hu MD - 11/29/2023 2:30 PM CDT HISTORY OF PRESENT ILLNESS 38-year-old male with a history of developmental delay, nonverbal at baseline, recent admission forgallbladder removal, epilepsy, presenting with seizure. The patient was recently admitted for gallbladder removal, RSV, bacteremia. Went home to his care facility yesterday evening. Today he had a prolonged seizure lasting more than 20 minutes. He does get breakthrough seizures relatively frequently but per his caregiver this lasted longer and was continuous as opposed to intermittent. He received 2 doses of diazepam as well as basal nerve stimulator. EMS was called. By time he arrived to the emergency department he was no longer seizing. He is mildly combative, hitting at caregivers. His certified social workers in health care reports he is acting normal but it has been a little more irritable since getting back. Patient nonverbal and unable to give additional history. PAST MEDICAL HISTORY REVIEWED MEDICAL: Patient has [...] Phenytoin sodium PHYSICAL EXAM INITIAL VS BP: 139/83 (11/29/23 1431), Heart Rate: (!) 140 bpm (11/29/23 1431), Resp: 18 (11/29/23 1431), Pulse: (!) 140 (11/29/23 1431), Temp: 97.1 ??F (36.2 ??C) (11/29/23 1431), Temp src: Oral (11/29/23 1431), SpO2: 96 % (11/29/23 1431), Height: (not recorded), Weight: (not recorded), BMI (Calculated): (not recorded) No LMP for male patient. Physical Exam Vitals and nursing note reviewed. Constitutional: General: He is not in acute distress. Appearance: Normal appearance. He is not toxic-appearing. HENT: Head: Normocephalic and atraumatic. Right Ear: External ear normal. Left Ear: External ear normal. Nose: Nose normal. Mouth/Throat: Mouth: Mucous membranes are moist. Pharynx: No oropharyngeal exudate or posterior oropharyngeal erythema. Eyes: Extraocular Movements: Extraocular movements intact. Pupils: Pupils are equal, round, and reactive to light. Cardiovascular: Rate and Rhythm: Regular rhythm. Tachycardia present. Pulses: Normal pulses. Heart sounds: Normal heart sounds. No murmur heard. No friction rub. No gallop. Pulmonary: Effort: Pulmonary effort is normal. No respiratory distress. Breath sounds: No wheezing, rhonchi or rales. Abdominal: General: There is no distension. Palpations: Abdomen is soft. There is no mass. Tenderness: There is no abdominal tenderness. There is no guarding or rebound. Comments: No obvious abdominal tenderness. Gallbladder incision with helen in place. No redness, warmth, or drainage. Musculoskeletal: General: No tenderness or deformity. Cervical back: Normal range of motion and neck supple. No muscular tenderness. Right lower leg: No edema. Left lower leg: No edema. Skin: General: Skin is warm and dry. Capillary Refill: Capillary refill takes less than 2 seconds. Findings: No rash. Neurological: Mental Status: He is alert. Comments: Awake and alert, moving all extremities equally. Psychiatric: Mood and Affect: Mood normal. DIAGNOSTICS LAB: CBC WITH DIFFERENTIAL - Abnormal Result Value WBC 7.9 RBC 3.56 (*) HEMOGLOBIN 11.4 (*) HEMATOCRIT 35.0 (*) MCV 98.3 MCH 32.0 MCHC 32.6 RDW 16.0 (*) RDW-STDEV 56.3 (*) PLATELETS 535 (*) MPV 8.8 (*) NEUTROPHILS 65 LYMPHOCYTES 23 MONOCYTES 9 EOSINOPHILS 2 BASOPHILS 1 IMMATURE GRANULOCYTES 1 NEUTROPHIL ABSOLUTE 5.11 LYMPHOCYTE ABSOLUTE 1.77 MONOCYTE ABSOLUTE 0.70 EOSINOPHIL ABSOLUTE 0.13 BASOPHILS ABSOLUTE 0.06 IMMATURE GRANULOCYTES ABSOLUTE 0.10 (*) COMPREHENSIVE METABOLIC PANEL - Abnormal SODIUM 139 POTASSIUM 4.1 CHLORIDE 103 CO2 22 CALCIUM 9.5 BUN 22 (*) CREATININE 0.87 GLUCOSE 94 TOTAL PROTEIN 8.0 ALBUMIN 4.2 BILIRUBIN TOTAL 0.2 (*) ALKALINE PHOSPHATASE 268 (*) AST 37 ALT 49 (*) GFR >60 ANION GAP 14 C-REACTIVE PROTEIN - Normal CRP 4.1 LAMOTRIGINE LEVEL RADIOLOGY: No orders to display EKG: PROCEDURES Procedures MEDICAL DECISION MAKING AND PLAN OF CARE Medical Decision Making 38-year-old male with developmental delay presenting with breakthrough seizure. Differential diagnosis includes simple breakthrough seizure, infection, electrolyte abnormality, trauma, among others. Caregiver denies hitting his head or falls at his facility. Labs notable for normal electrolytes andwhite blood cell count. CRP normal. Lamictal level ordered and pending. Abdominal incision site appears to be healing well with no redness or warmth. No obvious tenderness on abdominal exam but exam limited by nonverbal status. Heart rate mildly elevated on arrival but improving on its own. Given reassuring workup and baseline labs suspect this is just due to breakthrough seizure. Will discharge w ith outpatient follow-up. Amount and/or Complexity of Data Reviewed Independent Historian: caregiver External Data Reviewed: notes. Details: Recent hospital admission for cholecystitis Labs: ordered. Risk Prescription drug management. Decision regarding hospitalization. Diagnosis or treatment significantly limited by social determinants of health. Clinical Scoring & Consults . New Prescriptions for this Encounter LAST VS BP: 139/83 (11/29/23 143), Heart Rate: (!) 140 bpm (11/29/23 1431), Resp: 18 (11/29/23 1431), Pulse: (!) 140 (11/29/23 143), Temp: 97.1 ??F (36.2 ??C) (11/29/23 1431), Temp src: Oral (11/29/23 143), SpO2: 96 % (11/29/23 143) CLINICAL IMPRESSION Final diagnoses: [G40.919] Breakthrough seizure (Primary) [G40.909] Nonintractable epilepsy without status epilepticus, unspecified epilepsy type DISPOSITION, EDUCATION AND MEDICATION RECONCILIATION Medications reconciled. See after visit summary for patient education on discharged patients. ED Disposition ED Disposition Discharge Condition Stable User Juany Hu MD Date/Time SatNov 29, 2023 4:41 PM Comment -- ATTESTATION STATEMENTS Diagnoses Diagnosis Comment Added By Time Added Breakthrough seizure [G40.919] Juany Hu MD 11/29/2023 4:41 PM Nonintractable epilepsy without status epilepticus, unspecified epilepsy type [G40.909] Juany Hu MD 11/29/2023 4:42 PM documented in this encounter Miscellaneous Notes * ED Bed Hold Comment Note - Maia Reyes, RN - 11/29/2023 2:30 PM CDT Bed: 17 Expected date: Expected time: Means of arrival: Comments: [id number]: 38M sz for approx 20min, agitated, VSS documented in this encounter Plan of Treatment Not on file documented as of this encounter Procedures Procedure Name Priority Date/Time Associated Diagnosis Comments CBC WITH DIFFERENTIAL Stat 11/29/2023 3:09 PM CDT LAMOTRIGINE LEVEL Stat 11/29/2023 3:0 9 PM CDT C-REACTIVE PROTEIN Stat 11/29/2023 3: 09 PM CDT COMPREHENSIVE METABOLIC PANEL Stat 11/29/2023 3:09 PM CDT documented in this encounter Results * C-REACTIVE PROTEIN (11/29/2023 3:09 PM CDT) CRP 4.1 <5.0 mg/L 11/29/2023 4:16 PM CDT [facility] Blood Venipuncture / Unknown 11/29/2023 3:09 PM CDT 11/29/2023 3:18 PM CDT Juany Hu MD CHEMISTRY ORDERA BLES [facility] CLIA# [id number] [address] [place] [address] * LAMOTRIGINE LEVEL (11/29/2023 3:09 PM CDT) [facility] LAMOTRIGINE LEVEL 7.0 2.5 - 15.0 mcg/mL 12/04/2023 7:17 AM CDT [facility] Comment: This test was developed and its analytical performance characteristics have been determined by [facility] [place], [place]. It has not been cleared or approved by the U.S. Food and Drug Administration. This assay has been validated pursuant to the CLIA regulations and is used for clinical purposes. Blood Venipuncture / Unknown 11/29/2023 3:09 PM CDT 11/29/2023 3:18 PM CDT Narrative [facility] - 12/04/2023 7:17 AM CDT Performing Organization Information: ?Site ID: AMD ?Name: [facility] ?Address: [address] [place] [address] [place], [place] ?Director: Kwasi Pham M.D.,PhD Juany Hu MD CHEMISTRY ORDERA BLES [facility] [phone] * (ABNORMAL) COMPREHENSIVE METABOLIC PANEL (11/29/2023 3:09 PM CDT) [facility] SODIUM 139 136 - 145 mmol/L 11/29/2023 4:16 PM CDT [facility] POTASSIUM 4.1 3.5 - 5.0 mmol/L 11/29/2023 4:16 PM CDT [facility] CHLORIDE 103 98 - 107 mmol/L 11/29/2023 4:16 PM CDT [facility] - . [facility] CO2 22 22 - 29 mmol/L 11/29/2023 4:16 PM CDT [facility] - . [facility] CALCIUM 9.5 8.6 - 10.2 mg/dL 11/29/2023 4:16 PM CDT [facility] BUN 22(H) 6 - 20 mg/dL 11/29/2023 4:16 PM CDT [facility] - . [facility] CREATININE 0.87 0.67 - 1.17 mg/dL 11/29/2023 4:16 PM [facility] GLUCOSE 94 74 - 99 mg/dL 11/29/2023 4:16 PM [facility] TOTAL PROTEIN 8.0 6.7 - 8.6 g/dL 11/29/2023 4:16 PM [facility] ALBUMIN 4.2 3.5 - 5.2 g/dL 11/29/2023 4:16 PM [facility] BILIRUBIN TOTAL 0.2(L) 0.3 - 1.2 mg/dL 11/29/2023 4:16 PM [facility] ALKALINE PHOSPHATASE 268(H) 40 - 129 U/L 11/29/2023 4:16 PM [facility] AST 37 <41 U/L 11/29/2023 4:16 PM [facility] Comment:Hemolysis present. R esult may be falsely elevated. ALT 49(H) <42 U/L 11/29/2023 4:16 PM [facility] GFR >60 >=60 mL/min/1.7 3 sq meter 11/29/2023 4:16 PM [facility] Comment:eGFR calculated with 2020 CKD-EPI equation. Vegetarian diet, extremely high or low muscle mass, and may affect results. Cystatin C with Glomerular Filtration Rate is a suitable alternative for these patients. ANION GAP 14 8 - 16 mmol/L 11/29/2023 4:16 PM [facility] Blood Venipuncture / Unknown 11/29/2023 3:09 PM CDT 11/29/2023 3:18 PM CDT [facility] - 11/29/2023 4:16 PM CD Samples containing indocyanine green cause interferences on Total and/or Direct Bilirubin and must not be measured. Juany Hu MD CHEMISTRY ORDERA BLES [facility]. [facility] CLIA# [id number] [address] [place] [address] * (ABNORMAL) CBC WITH DIFFERENTIAL (11/29/2023 3:09 PM CDT) [facility] WBC 7.9 4.0 - 9.8 K/uL 11/29/2023 4:00 PM CDT [facility]. [facility] RBC 3.56(L) 4.50 - 5.40 M/uL 11/29/2023 4:00 PM T [facility] HEMOGLOBIN 11.4(L) 13.6 - 16.5 g/dL 11/29/2023 4:00 PM [facility] Comment:Significant change f rom prior result, correlate clinically and redraw if necessary. HEMATOCRIT 35.0(L) 40.0 - 48.0 % 11/29/2023 4:00 PM CDT [facility] MCV 98.3 82.0 - 99.0 fL 11/29/2023 4:00 PM CDT [facility] MCH 32.0 27.2 - 32.6 pg 11/29/2023 4:00 PM CDT [facility] MCHC 32.6 31.5 - 35.5 g/dL 11/29/2023 4:00 PM CDT [facility] RDW 16.0(H) 11.5 - 14.5 % 11/29/2023 4:00 PM CDT [facility] RDW-STDEV 56.3(H) 37.1 - 48.7 fL 11/29/2023 4:00 PM CDT [facility] PLATELETS 535(H) 140 - 350 K/uL 11/29/2023 4:00 PM CDT [facility] [employer] [facility]. [facility] MPV 8.8(L) 9.3 - 12.4 fL 11/29/2023 4:00 PM CDT [facility]. [facility] NEUTROPHILS 65 % 11/29/2023 4:00 PM CDT [facility]. [facility] LYMPHOCYTES 23 % 11/29/2023 4:00 PM CDT [facility] MONOCYTES 9 % 11/29/2023 4:00 PM CDT [facility] - . [facility] EOSINOPHILS 2 % 11/29/2023 4:00 PM CDT [facility] - . [facility] BASOPHILS 1 % 11/29/2023 4:00 PM CDT [facility] IMMATURE GRANULOCYTES 1 % 11/29/2023 4:00 PM CDT [facility] Comment:IG (Immature Granulo cyte) count includes Metamyelocytes, Myelocytes, and Promyelocytes NEUTROPHIL ABSOLUTE 5.11 1.90 - 7.00 K/uL 11/29/2023 4:00 PM CDT [facility] - . [facility] LYMPHOCYTE ABSOLUTE 1.77 0.70 - 4.50 K/uL 11/29/2023 4:00 PM CDT [facility] - . [facility] MONOCYTE ABSOLUTE 0.70 0.10 - 1.30 K/uL 11/29/2023 4:00 PM CDT [facility] - . [facility] EOSINOPHIL ABSOLUTE 0.13 0.00 - 0.70 K/uL 11/29/2023 4:00 PM CDT [facility] - . [facility] BASOPHILS ABSOLUTE 0.06 0.00 - 0.20 K/uL 11/29/2023 4:00 PM CDT [facility] IMMATURE GRANULOCYTES ABSOLUTE 0.10(H) 0.00 - 0.03 K/uL 11/29/2023 4:00 PM T [facility] Blood Venipuncture / Unknown 11/29/2023 3:09 PM CDT 11/29/2023 3:18 PM CDT Juany Hu MD HEMATOLOGY ORDER [facility]# [id number] 5 [facility] [address] [place] [address] documented in this encounter Visit Diagnoses Diagnosis Breakthrough seizure- Primary Unspecified epilepsy with intractable epilepsy Nonintractable epilepsy without status epilepticus, unspecified epilepsy type documented in this encounter Additional Health Concerns Infection Onset Date Last Indicated Resolved Time Respiratory Syncytial Virus (RSV) 11/13/2023 024 12/11/2023 1:16 AM CDT documented as of this encounter Care Teams [employer] Relationship Specialty Start Date End Date Gulshan Mena DO [address] [place] [address] PCP - General 01/26/15 documented as of this encounter
--- OUTSIDE RECORDS SUMMARY | 2024-02-12 05:12 | XMS_ITS | Encounter Summary ---
Author Organization [employer] Address [address] [place] [address] Care Team Providers Care Web Search Evaluator Name Role Phone Rajesh Blane DO Primary Care Provider [phone] Reason for Visit * Reason Comments Seizure Pt is special needs pt and lives in a half-way. He has hx of seizures and tonight he had a seizure and after 10 min staff gave him 10mg of Valuim intranasally and still seizing 10 min from that so they gave another 10mg. Continued to seize. Per protocol after the 2nd dose given if still seizing 3 min call 911. Per EMS pt didn't have any seizure activity for them and is not seizing now. He is nonverbal. * Auth/Cert (Routine) Specialty Diagnoses / Procedures Referred By Padmini vogt Referred To Contact Emergency Medicine [facility] Emergency Dept [address] [place] [address] Referral ID Status Reason Start Date Expiration Date Visits Re quested Visits Authorized [id number] 1 1 Encounter Details Date Type Department Care Team (Late st Contact Info) Description 12/28/2023 8:53 PM PLANNING COORDINATOR - 12/28/2023 11:39 PM [facility] Emergency [facility] Emergency Department [address] [place] [address] Yanci Gardner MD [address] [place] [address] Seizure (Primary Dx) Discharge Disposition: Home or [...] Sign Reading Time Taken Comments Blood Pressure 94/60 12/28/2023 11:00 PM PLANNING COORDINATOR Pulse 77 12/28/2023 11:00 PM PLANNING COORDINATOR Temperature 36.3 ??C (97.4 ??F) 12/28/2023 11:[address] Respiratory Rate 18 12/28/2023 8:56 PM PLANNING COORDINATOR Oxygen Saturation 97% 12/28/2023 11:00 PM PLANNING COORDINATOR Inhaled Oxygen Concentration - - Weight - - Height - - Body Mass Index - - documented in this encounter Discharge Instructions * Discharge Instructions* Yanci Gardner MD - 12/28/2023 10:18 PM PLANNING COORDINATOR Your labs today did not show any concerning abnormalities. Continue previously prescribed medications. Please contact your neurologist for medication adjustments given breakthrough seizures. Return to the ER with recurrence of seizure or any other new concerning issue. NING COORDINATOR * Attachments The following attachments cannot be sent through Care Everywhere. * Seizure (Swedish) documented in this encounter Medications at Time [...] Allergies. diazePAM (Valtoco) 10 mg/spray (0.1 mL) [place], Non-Aerosol Administer 10 mg in each nostril [...] as of this encounter ED Notes * Marion Wallace RN - 12/28/2023 11:39 PM CST Caregiver verbalizes understanding of discharge instructions and need for follow up at this time. Pt ambulates with steady gait and is being transported home with caregiver. NING COORDINATOR * Marion Wallace RN - 12/28/2023 11:00 PM CST This RN received report from Emmy WADE and assumed care for this pt. Pt resting on stretcher with caregiver at bedside. NING COORDINATOR * Yanci Gardner MD - 12/28/2023 9:00 PM CST HISTORY OF PRESENT ILLNESS Documented Triage Chief Complaint: Seizure 9:00 PM: Travis Beebe is a 38 y.o. male with a history of Eldena-Gastaut syndrome, Autism, ADHD, and Seizure disorder, who presents to the Emergency Department with complaints of a seizure. Per Pt's power transmission engineer: Pt began having a seizure that lasted a total of 30 minutes. Pt was given nasalvalium at 10 and 20 minutes. After the 30 minutes EMS was called. Yarder Operator denies fever, chills, vomiting, diarrhea, cold symptoms, cough, or missed medicine doses. Pt had his gallbladder removed on 11/16/23. Physician(s): Gulshan Mena DO History provided by: Medical records, the EMS personnel and a caregiver History limited by: A developmental delay cardiovascular surgical tech used: No Arrived by: EMS Arrived from: Home PAST MEDICAL HISTORY REVIEWED [...] Phenytoin sodium PHYSICAL EXAM INITIAL VS BP: (!) 116/93 (12/28/232054), Heart Rate: 84 bpm (12/28/232054), Resp: 18 (12/28/232055), Pulse: 85 (12/28/232054), Temp: 97.9 ??F (36.6 ??C) (12/28/232055), Temp src: Oral (12/28/232055), SpO2: 99 % (12/28/232054), Height: (not recorded), Weight: (not recorded), BMI (Calculated): (not recorded) No LMP for male patient. Physical Exam Vitals and nursing note reviewed. Constitutional: General: He is awake. Appearance: He is not toxic-appearing. Comments: Nonverbal tracks. Doesn't respond to instructions. HENT: Head: Normocephalic and atraumatic. Right Ear: [...] than 2 seconds. Findings: No rash. Neurological: General: No focal deficit present. Mental Status: He is alert. DIAGNOSTICS LAB: No data to display RADIOLOGY: No orders to display EKG: PROCEDURES Procedures MEDICAL DECISION MAKING AND PLAN OF CARE --On initial evaluation, saw and examined the patient. Discussed plan for labs. Patient understandsand agrees with the plan. ED provider and ED nurse verbally discussed patient plan of care at this time. Medical Decision Making 38-year-old male with history of Eldena-Gastaut syndrome, autism, ADHD, seizure disorder presentingemergency department after a seizure. EMS and caregiver bedside and help provide history as patientis nonverbal at baseline. Their protocol is to allow him to seize for 10 minutes, give first dose of benzodiazepine, after another 10 minutes a second dose is given and if patient continues to seize for 3 additional minutes they are to call EMS. This occurred today. Seizure lasted approximately 30 minutes total. Patient is now awake and alert, tracking is removed, responding to voice, nonverbal, does not respond to basic instruction which is his baseline. Vital signs reassuring. Plan for labs, monitoring. If patient remains seizure-free could potentially just discharge back to facility with outpatient neurology follow-up Amount and/or Complexity of Data Reviewed Independent Historian: caregiver Details: Caregiver provided the HPI. Labs: ordered. Clinical Scoring & Consults . New Prescriptions for this Encounter LAST VS BP: (!) 116/93 (12/28/232054), Heart Rate: 84 bpm (12/28/232055), Resp: 18 (12/28/232055), Pulse: 84 (12/28/232055), Temp: 97.9 ??F (36.6 ??C) (12/28/232055), Temp src: Oral (12/28/232055), SpO2: 97 % (12/28/232055) CLINICAL IMPRESSION Final diagnoses: None DISPOSITION, EDUCATION AND MEDICATION RECONCILIATION Medications reconciled. See after visit summary for patient education on discharged patients. ATTESTATION STATEMENTS This note has been prepared by Trevor Reddy acting as a scribe for Dr. Yanci Gardner on 12/28/2023 at 9:27 PM. The scribe's documentation has been prepared under my direction and personally reviewed by me, Yanci Gardner, in its entirety on 12/28/23 at 8:59 PM. I confirm that the note above accurately reflects all work, treatment, procedures, and medical decision making performed by me. Diagnosis None NING COORDINATOR documented in this encounter Miscellaneous Notes * ED Bed Hold Comment Note - Elaine Turpin RN - 12/28/2023 8:53 PM PLANNING COORDINATOR Bed: 29 Expected date: Expected time: Means of arrival: Comments: [id number] NING COORDINATOR documented in this encounter Plan of Treatment Not on file documented as of this encounter Procedures Procedure Name Priority Date/Time Associated Diagnosis Comments CBC WITH DIFFERENTIAL Stat 12/28/2023 9:06 PM PLANNING COORDINATOR LAMOTRIGINE LEVEL Stat 12/28/2023 9:0 6 PM PLANNING COORDINATOR PHOSPHORUS Stat 12/28/2023 9:06 PM PLANNING COORDINATOR MAGNESIUM LEVEL Stat 12/28/2023 9:06 PM PLANNING COORDINATOR COMPREHENSIVE METABOLIC PANEL Stat 12/28/2023 9:06 PM PLANNING COORDINATOR documented in this encounter Results * LAMOTRIGINE LEVEL (12/28/2023 9:06 PM PLANNING COORDINATOR) LAMOTRIGINE LEVEL 9.2 2.5 - 15.0 mcg/mL 01/02/2024 7:53 AM PLANNING COORDINATOR [facility] Comment: This test was developed and its analytical performance characteristics have been determined by [facility] [place], [place]. It has not been cleared or approved by the U.S. Food and Drug Administration. This assay has been validated pursuant to the CLIA regulations and is used for clinical purposes. Blood Venipuncture / Unknown 12/28/2023 9:06 PM PLANNING COORDINATOR 12/28/2023 9:08 PM PLANNING COORDINATOR Narrative [facility] - 01/02/2024 7:53 AM PLANNING COORDINATOR Performing Organization Information: ?Site ID: AMD ?Name: [facility] ?Address: [address] [place] [address] [place], [place] ?Director: Kwasi Pham M.D.,PhD Yanci Gardner MD CHEMISTRY ORDERABLES [facility] [phone] * PHOSPHORUS (12/28/2023 9:06 PM PLANNING COORDINATOR) PHOSPHORUS 3.6 2.5 - 4.5 mg/dL 12/28/2023 10:02 PM PLANNING COORDINATOR [facility] Blood Venipuncture / Unknown 12/28/2023 9:06 PM PLANNING COORDINATOR 12/28/2023 9:08 PM PLANNING COORDINATOR Yanci Gardner MD CHEMISTRY ORDERABLES Performing Organization Address City/[facility]/ZIP Co de Phone Number [facility] [employer] [facility] CLIA# [id number] [address] [place] [address] * MAGNESIUM LEVEL (12/28/2023 9:06 PM PLANNING COORDINATOR) MAGNESIUM 2.1 1.6 - 2.6 mg/dL 12/28/2023 10:02 PM PLANNING COORDINATOR [employer] [facility] Blood Venipuncture / Unknown 12/28/2023 9:06 PM PLANNING COORDINATOR 12/28/2023 9:08 PM PLANNING COORDINATOR Yanci Gardner MD CHEMISTRY ORDERABLES Performing Organization Address City/[facility]/ZIP Co de Phone Number [facility] [employer] [facility] CLIA# [id number] [address] [place] [address] * (ABNORMAL) COMPREHENSIVE METABOLIC PANEL (12/28/2023 9:06 PM PLANNING COORDINATOR) SODIUM 137 136 - 145 mmol/L 12/28/2023 10:02 PM PLANNING COORDINATOR [facility] [employer] POTASSIUM 4.1 3.5 - 5.0 mmol/L 12/28/2023 10:02 PM PLANNING COORDINATOR [employer] [facility] CHLORIDE 105 98 - 107 mmol/L 12/28/2023 10:02 PM PLANNING COORDINATOR [facility] CO2 21(L) 22 - 29 mmol/L 12/28/2023 10:02 PM [facility] . [facility] CALCIUM 9.7 8.6 - 10.2 mg/dL 12/28/2023 10:02 PM [facility]. [facility] BUN 14 6 - 20 mg/dL 12/28/2023 10:02 PM [facility]. [facility] CREATININE 0.98 0.67 - 1.17 mg/dL 12/28/2023 10:02 PM [facility]. [facility] GLUCOSE 99 74 - 99 mg/dL 12/28/2023 10:02 PM [facility]. [facility] TOTAL PROTEIN 8.4 6.7 - 8.6 g/dL 12/28/2023 10:02 PM [facility]. [facility] ALBUMIN 4.7 3.5 - 5.2 g/dL 12/28/2023 10:02 PM [facility] BILIRUBIN TOTAL 0.4 0.3 - 1.2 mg/dL 12/28/2023 10:02 PM [facility] ALKALINE PHOSPHATASE 190(H) 40 - 129 U/L 12/28/2023 10:02 PM [facility] AST 28 <41 U/L 12/28/2023 10:02 PM [facility] ALT 35 <42 U/L 12/28/2023 10:02 PM [facility] GFR >60 >=60 mL/min/1.7 3 sq meter 12/28/2023 10:02 PM [facility] Comment:eGFR calculated with 2020 CKD-EPI equation. Vegetarian diet, extremely high or low muscle mass, and may affect results. Cystatin C with Glomerular Filtration Rate is a suitable alternative for these patients. ANION GAP 11 8 - 16 mmol/L 12/28/2023 10:02 PM [facility] Blood Venipuncture / Unknown 12/28/2023 9:06 PM PLANNING COORDINATOR 12/28/2023 9:08 PM [facility] LABORATORY SERVICES - [facility] - 12/28/2023 10:02 PM PLANNING COORDINATOR Samples containing indocyanine green cause interferences on Total and/or Direct Bilirubin and must not be measured. Yanci Gardner MD CHEMISTRY ORDERABLES [facility] [employer] SERVICES [facility] CLIA# [id number] [address] [place] [address] * (ABNORMAL) CBC WITH DIFFERENTIAL (12/28/2023 9:06 PM PLANNING COORDINATOR) [facility] WBC 5.4 4.0 - 9.8 K/uL 12/28/2023 9:44 PM [facility] [facility] RBC 4.46(L) 4.50 - 5.40 M/uL 12/28/2023 9:44 PM [facility] [employer] [facility] HEMOGLOBIN 14.2 13.6 - 16.5 g/dL 12/28/2023 9:44 PM [facility] Comment:Significant change f rom prior result, correlate clinically and redraw if necessary. HEMATOCRIT 41.8 40.0 - 48.0 % 12/28/2023 9:44 PM [facility] MCV 93.7 82.0 - 99.0 fL 12/28/2023 9:44 PM [facility] [employer] [facility] MCH 31.8 27.2 - 32.6 pg 12/28/2023 9:44 PM [facility] [employer] [facility] MCHC 34.0 31.5 - 35.5 g/dL 12/28/2023 9:44 PM [facility] [employer] [facility] - . [facility] RDW 13.2 11.5 - 14.5 % 12/28/2023 9:44 PM [facility] [employer] [facility] RDW-STDEV 45.1 37.1 - 48.7 fL 12/28/2023 9:44 PM [facility] PLATELETS 224 140 - 350 K/uL 12/28/2023 9:44 PM [facility] [employer] [facility] - . [facility] MPV 9.6 9.3 - 12.4 fL 12/28/2023 9:44 PM [facility] NEUTROPHILS 60 % 12/28/2023 9:44 PM [facility] LYMPHOCYTES 29 % 12/28/2023 9:44 PM [facility] MONOCYTES 7 % 12/28/2023 9:44 PM [facility] EOSINOPHILS 3 % 12/28/2023 9:44 PM [facility] BASOPHILS 1 % 12/28/2023 9:44 PM [facility] IMMATURE GRANULOCYTES 1 % 12/28/2023 9:44 PM [facility] Comment:IG (Immature Granulo cyte) count includes Metamyelocytes, Myelocytes, and Promyelocytes NEUTROPHIL ABSOLUTE 3.24 1.90 - 7.00 K/uL 12/28/2023 9:44 PM [facility] LYMPHOCYTE ABSOLUTE 1.57 0.70 - 4.50 K/uL 12/28/2023 9:44 PM [facility] MONOCYTE ABSOLUTE 0.39 0.10 - 1.30 K/uL 12/28/2023 9:44 PM [facility] EOSINOPHIL ABSOLUTE 0.14 0.00 - 0.70 K/uL 12/28/2023 9:44 PM [facility] BASOPHILS ABSOLUTE 0.04 0.00 - 0.20 K/uL 12/28/2023 9:44 PM [facility] - . [facility] IMMATURE GRANULOCYTES ABSOLUTE 0.03 0.00 - 0.03 K/uL 12/28/2023 9:44 PM [facility] - . [facility] Blood Venipuncture / Unknown 12/28/2023 9:06 PM PLANNING COORDINATOR 12/28/2023 9:08 PM PLANNING COORDINATOR Yanci Gardner MD HEMATOLOGY ORDERABLE S [facility] SERVICES [facility] CLIA# [id number] [address] [facility] [place] [address] documented in this encounter Visit Diagnoses Diagnosis Seizure- Primary Other convulsions documented in this encounter Care Teams Web Search Evaluator Relationship Specialty Start Date End Date Gulshan Mena DO [address] [place] [address] PCP - General 01/26/15 documented as of this encounter
--- OUTSIDE RECORDS SUMMARY | 2024-02-12 05:13 | XMS_ITS | Encounter Summary ---
Author Organization [employer] Address [address] [place] [address] Care Team Providers Care Farm Machine Operator Name Role Phone Gulshan Mena DO Primary Care Provider [phone] Encounter Details Date Type Department Care Team (Late st Contact Info) Description 11/19/2023 External Device Data [place] ABSTRACTION Provider, Abstract NO ADDRESS ON FILE Social History Tobacco Use Types Packs/Day Years Used Date Smoking Tobacco: Never Smokeless Tobacco: Never Alcohol Use Standard Drinks/Week Comments No 0 (1 standard drink = 0.6 oz pur e alcohol) Feeling Safe Answer Date Recorded Are you in a relationship wi th someone who hurts you emotionally and/or physically? No 11/14/2023 Food Insecurity Answer Date Recorded Social/Environmental Concerns [...] documented as of this encounter Care Teams Farm Machine Operator Relationship Specialty Start Date End Date Gulshan Mena DO [address] [place] [id number] PCP - General 01/26/15 documented as of this encounter
--- OUTSIDE RECORDS SUMMARY | 2024-02-12 05:13 | XMS_ITS | Encounter Summary ---
Author Organization [facility] Address [address] [facility] Attn: Epic Prelude [place]T [place] [address] Care Team Providers Care Tool And Die Maker Name Role Phone Gulshan Mena DO Primary Care Provider [phone] Encounter Details Date Type Department Care Team (Latest Contact Info) Description 11/14/2023 Travel Social History Tobacco Use Types Packs/Day [...] documented as of this encounter Care Teams Tool And Die Maker Relationship Specialty Start Date End Date Gulshan Mena DO [address] [place] [address] PCP - General 01/26/15 documented as of this encounter
--- OUTSIDE RECORDS SUMMARY | 2024-02-12 05:13 | XMS_ITS | Encounter Summary ---
Author Organization [facility] Address [address] [place] [address] Care Team Providers Care K 12 Principal Name Role Phone Gulshan Mena DO Primary Care Provider [phone] Reason for Referral * Occupational Therapy (Routine) - Open Specialty Diagnoses / Procedures Referred By Padmini vogt Referred To Contact Diagnoses Generalized muscle weakness Jessica Angel MD [address] [address] Referral ID Status Reason Start Date Expiration Date Visits Re quested Visits Authorized [id number] Open 11/20/2023 11/19/2024 1 1 * Physical Therapy (Routine) - Open Specialty Diagnoses / Procedures Referred By Padmini vogt Referred To Contact Physical Therapy Diagnoses Generalized muscle weakness Jessica Angel MD [address] [address] Referral ID Status Reason Start Date Expiration Date Visits Re quested Visits Authorized [id number] Open 11/20/2023 11/19/2024 6 6 Reason for Visit * Reason Comments Fever 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 Pt is non-verbal at baseline. * Auth/Cert (Routine) Specialty Diagnoses / Procedures Referred By Padmini vogt Referred To Contact Emergency [facility] [address] [place] [address] Referral ID Status Reason Start Date Expiration Date Visits Re quested Visits Authorized [id number] 1 1 Encounter Details Date Type Department Care Team (Latest Contact Info) Description 11/13/2023 6:02 PM CDT - 11/28/2023 9:40 PM CDT Hospital Encounter [facility] Medicine [address] [place] [address] Gilberto Cote DO NO ADDRESS ON FILE Moiragentrysteph Pau Alaniz DO [address] [facility] [address] [place] [address] [place] [address] [facility] [address] [place] [address] Jim Nguyen MD [address] [facility] [address] [address] Jessica Angel MD [address] [address] [facility] [id number] Lyndon Gupta DO [address] [place] [address] Aundrea Gutierrez MD [address] [place] [address] Acute calculous cholecystitis Discharge Disposition: Intermediate Care Facility Social History Tobacco Use Types Packs/Day Years [...] Sign Reading Time Taken Comments Blood Pressure 137/58 11/28/2023 9:19 PM CDT Pulse 94 11/28/2023 9:19 PM CDT Temperature 36.7 ??C (98.1 ??F) 11/28/2023 4:53 PM CD T Respiratory Rate 20 11/28/2023 4:53 PM CDT Oxygen Saturation 97% 11/28/2023 9:19 PM CDT Inhaled Oxygen Concentration - - Weight 76.1 kg (167 lb 12.8 oz) 11/14/2023 3:12 AM CDT Height 170.2 cm (5' 7 ) 11/14/2023 3:12 AM CDT Body Mass Index 26.28 11/14/2023 3:12 AM CDT documented in this encounter Discharge Summaries * Aundrea Gutierrez MD - 11/28/2023 7:54 AM CDT Images from the original note were not included. Curt Beebe 38 y.o. male 1985 CSN: [id number] Date of Admission: 11/13/2023 Date of Discharge: 11/28/2023 Discharging Physician: Aundrea Gutierrez MD LOS: 15 days PCP: Gulshan Mena, Activity: activity as tolerated. Dispo: home Diet: DIET GENERAL Effective Now DIET SUPPLEMENT GEN ADULT TID; Complete Oral Supplement, Code Status at Discharge: Full Code Wound Care: As directed Admitting Dx: Acute calculous cholecystitis Discharge Diagnoses: Principal Problem: Acute calculous cholecystitis Active Problems: Development delay Autism Seizure disorder, complex partial, with intractable epilepsy RSV infection Streptococcal bacteremia History of penicillin allergy Generalized muscle weakness Post-ictal state Discharge medications and new prescriptions: Medication List START taking these medications naproxen 250 mg tablet Commonly known as: NAPROSYN Take 1 Tablet (250 mg) by mouth 2 times daily with meals for 14 days. Signed by: Dr. Elaine Gutierrez Quantity: 28 Tablet Refills: 0 CHANGE how you take these medications cloNIDine HCL 0.3 mg tablet Commonly known as: CATAPRES What changed: additional instructions Take 1 Tablet (0.3 mg) by mouth late in the day. Signed by: Dr. Elaine Gutierrez Refills: 0 CONTINUE taking these medications acetaminophen 325 mg [...] mg Tablet Commonly known as: ONFI Take 40 mg by mouth daily at bedtime. Refills: 0 Colace 100 mg capsule Take [...] Refills: 0 Valtoco 10 mg/spray (0.1 mL) [place], Non-Aerosol Administer 10 mg in each nostril [...] duplicate medications found. Review medication list carefully. Where to Get Your Medications These medications were sent to [address] [address] Hours: Open Daily 8 am - 12 am (midnight) naproxen 250 mg tablet Information about where to get these medications is not yet available Ask your nurse or doctor about these medications cloNIDine HCL 0.3 mg tablet Consultants: IP CONSULT TO GENERAL SURGERY IP CONSULT TO INFECTIOUS DISEASES IP CONSULT TO SOCIAL WORK IP CONSULT TO HOME CARE NEEDS Significant Diagnostic Studies This Admission: CT C/A/P: 1. Mild right middle and lower lobe basilar opacities that favor atelectasis. 2. Otherwise no acute process within limits of motion artifact and a noncontrast exam. 1. Distended gallbladder with moderate wall thickening and surrounding inflammatory stranding suggestive of cholecystitis HIDA: Abnormal hepatobiliary imaging study. Nonvisualization of the gallbladder at 60 minutes supportive of the diagnosis of acute acalculous cholecystitis. CT sinus and face: No obvious bone erosion, periapical lucency, or peripherally enhancing fluid collection in the oral cavity. Correlation with dental evaluation is recommended. CTA chest: 1. No pulmonary embolus. 2. New small right pleural effusion. Bilateral lower lobe and right middle lobe atelectasis. 3. Right upper lobe pulmonary tree-in-bud opacities are likely infectious/inflammatory. 4. Interval cholecystectomy CT head: No acute intracranial abnormality. TTE: - Left ventricle: The cavity size was normal. Wall thickness was normal. Global systolic function is normal. For Epic reporting: the left ventricular ejection fraction is 70% . Left ventricular diastolic function parameters are normal. - Left atrium: The atrium is normal in size. - Right ventricle: The cavity size is normal. Systolic function is normal. - Pulmonary arteries: Systolic pressure was within the normal range. Labs from this Hospitalization Needing Follow Up: None Discharge Lab Data: Lab Results Component Value Date WBC 8.7 11/25/2023 HGB 8.5 (L) 11/25/2023 HCT 27.1 (L) 11/25/2023 PLT 329 11/25/2023 NA 137 11/25/2023 CL 106 11/25/2023 K 4.1 11/25/2023 CO2 21 (L) 11/25/2023 BUN 16 11/25/2023 CREAT 0.70 11/25/2023 GLUCOSE 94 11/25/2023 AST 33 11/21/2023 ALT 33 11/21/2023 CRP 146.0 (H) 11/18/2023 Discharge Exam: BP 99/59 (BP Location: Right arm, Patient Position (BP): Supine) Pulse 82 Temp 97.5 ??F (36.4 ??C) (Axillary) Resp 20 Ht 5' 7 (1.702 m) Wt 76.1 kg (167 lb 12.8 oz) SpO2 97% BMI 26.28 kg/m?? Physical Exam: General: Alert, no distress. Heart: Regular rate and rhythm, S1, S2 normal Lungs: Clear to auscultation bilaterally Abdomen: Soft, non-tender. Bowel sounds times four. Extremities: No clubbing, cyanosis or edema Skin: Skin color, texture, turgor normal. Head: Normocephalic, atraumatic Neck: Supple, symmetrical, trachea midline, no adenopathy. Neuro: Moving all 4 extremities. HPI: As per HPI, aisha is a 38 y.o. male with PMHx of Intellectual disability who presents to the emergency room with increased work of breathing. The patient is nonverbal so history is obtained from the caregiver at the bedside. The patient lives in a snf. He yesterday was noted to be a little out of it but the caregiver reports that he intermittently gets that way. However, today, he was noticed to have increased work of breathing and increased respiratory rate. He was brought to the emergency roomfor further evaluation. In the emergency room, he was found to have RSV. He also was found on imaging to have possible cholecystitis. He is being admitted for further management. The caregiver denies any nausea or vomiting. He is unable to tell if he is having any abdominal pain but he has not been visibly uncomfortable I was able to talk to him mom/caregiver. She reports that the patient had significant decreased po intake yesterday but no pain. She admits that it is hard to tell if he is uncomfortable due to his intellectual disability. Hospital Course: Acute calculus cholecystitis-laparoscopic converted to open cholecystectomy on 11/15. TRENT drain removed on 11/18. Follow-up with TACS 2 weeks postdischarge. Streptococcus sanguinous bacteremia- TTE without vegetation.CT facial bones and sinus-no abscess orosteomyelitis. Completed 2 weeks course of ceftriaxone. RSV-not hypoxic. Conservative management. Acute on chronic postop anemia-H&H stable. Monitor. Complex partial seizure disorder-follows up with neurologist at [facility].S/p VNS in place. No need for device check per prior hospitalist discussion with device rep. Concern for breakthrough seizure on 11/23 with postictal.MET was called. CT head no acute process and cEEG no seizures. Refused to take meds intermittently for few days.Takes meds w chocolate icecream.Continue clobazam, Vimpat ,zonisamide and Lamictal. Essential tremor-continue Inderal and clonidine. GERD-continue Pepcid. Autism with developmental delay-minimally verbal. Continue BuSpar. Physical debility-patient need manual wheelchair for home mobility. Unable to ambulate with walker.Patient has caregiver who is willing to navigate wheelchair. DIET GENERAL Effective Now DIET SUPPLEMENT GEN ADULT TID; Complete Oral Supplement, Discharge Condition: improving. Follow-up: Gulshan Mena DO in 5 day(s). More than 32 minutes were spent in this discharge activity. Signed: Aundrea Gutierrez MD 11/28/2023, 7:55 AM * Aundrea Gutierrez MD - 11/27/2023 10:57 AM CDT Images from the original note were not included. Curt Beebe 38 y.o. male 1985 CSN: [id number] Date of Admission: 11/13/2023 Date of Discharge: 11/27/2023 Discharging Physician: Aundrea Gutierrez MD LOS: 14 days PCP: Gulshan Mena DO Activity: activity as tolerated. Dispo: home Diet: DIET GENERAL Effective Now DIET SUPPLEMENT GEN ADULT TID; Complete Oral Supplement, Code Status at Discharge: Full Code Wound Care: As directed Admitting Dx: Acute calculous cholecystitis Discharge Diagnoses: Principal Problem: Acute calculous cholecystitis Active Problems: Development delay Autism Seizure disorder, complex partial, with intractable epilepsy RSV infection Streptococcal bacteremia History of penicillin allergy Generalized muscle weakness Post-ictal state Discharge medications and new prescriptions: Medication List START taking these medications naproxen 250 mg tablet Commonly known as: NAPROSYN Take 1 Tablet (250 mg) by mouth 2 times daily with meals for 14 days. Signed by: Dr. Elaine Gutierrez Quantity: 28 Tablet Refills: 0 CHANGE how you take these medications cloNIDine HCL 0.3 mg tablet Commonly known as: CATAPRES What changed: additional instructions Take 1 Tablet (0.3 mg) by mouth late in the day. He has clonidine patch. Remove the patch on 11/28/2023 and then restart clonidine pill 8 to 12 hours later removing the patch. Signed by: Dr. Elaine Gutierrez Refills: 0 CONTINUE taking these medications acetaminophen 325 mg [...] mg Tablet Commonly known as: ONFI Take 40 mg by mouth daily at bedtime. Refills: 0 Colace 100 mg capsule Take [...] Refills: 0 Valtoco 10 mg/spray (0.1 mL) [place], Non-Aerosol Administer 10 mg in each nostril [...] duplicate medications found. Review medication list carefully. Where to Get Your Medications These medications were sent to [address] [facility] [address] Hours: Open Daily 8 am - 12 am (midnight) naproxen 250 mg tablet Information about where to get these medications is not yet available Ask your nurse or doctor about these medications cloNIDine HCL 0.3 mg tablet Consultants: IP CONSULT TO GENERAL SURGERY IP CONSULT TO INFECTIOUS DISEASES IP CONSULT TO SOCIAL WORK IP CONSULT TO HOME CARE NEEDS Significant Diagnostic Studies This Admission: CT C/A/P: 1. Mild right middle and lower lobe basilar opacities that favor atelectasis. 2. Otherwise no acute process within limits of motion artifact and a noncontrast exam. 1. Distended gallbladder with moderate wall thickening and surrounding inflammatory stranding suggestive of cholecystitis HIDA: Abnormal hepatobiliary imaging study. Nonvisualization of the gallbladder at 60 minutes supportive of the diagnosis of acute acalculous cholecystitis. CT sinus and face: No obvious bone erosion, periapical lucency, or peripherally enhancing fluid collection in the oral cavity. Correlation with dental evaluation is recommended. CTA chest: 1. No pulmonary embolus. 2. New small right pleural effusion. Bilateral lower lobe and right middle lobe atelectasis. 3. Right upper lobe pulmonary tree-in-bud opacities are likely infectious/inflammatory. 4. Interval cholecystectomy CT head: No acute intracranial abnormality. TTE: - Left ventricle: The cavity size was normal. Wall thickness was normal. Global systolic function is normal. For Epic reporting: the left ventricular ejection fraction is 70% . Left ventricular diastolic function parameters are normal. - Left atrium: The atrium is normal in size. - Right ventricle: The cavity size is normal. Systolic function is normal. - Pulmonary arteries: Systolic pressure was within the normal range. Labs from this Hospitalization Needing Follow Up: None Discharge Lab Data: Lab Results Component Value Date WBC 8.7 11/25/2023 HGB 8.5 (L) 11/25/2023 HCT 27.1 (L) 11/25/2023 PLT 329 11/25/2023 NA 137 11/25/2023 CL 106 11/25/2023 K 4.1 11/25/2023 CO2 21 (L) 11/25/2023 BUN 16 11/25/2023 CREAT 0.70 11/25/2023 GLUCOSE 94 11/25/2023 AST 33 11/21/2023 ALT 33 11/21/2023 CRP 146.0 (H) 11/18/2023 Discharge Exam: BP 128/84 Pulse 82 Temp 98.4 ??F (36.9 ??C) (Axillary) Resp 23 Ht 5' 7 (1.702 m) Wt 76.1kg (167 lb 12.8 oz) SpO2 95% BMI 26.28 kg/m?? Physical Exam: General: Alert, no distress. Heart: Regular rate and rhythm, S1, S2 normal Lungs: Clear to auscultation bilaterally Abdomen: Soft, non-tender. Bowel sounds times four. Extremities: No clubbing, cyanosis or edema Skin: Skin color, texture, turgor normal. Head: Normocephalic, atraumatic Neck: Supple, symmetrical, trachea midline, no adenopathy. Neuro: Moving all 4 extremities. HPI: As per HPI, aisha is a 38 y.o. male with PMHx of Intellectual disability who presents to the emergency room with increased work of breathing. The patient is nonverbal so history is obtained from the caregiver at the bedside. The patient lives in a snf. He yesterday was noted to be a little out of it but the caregiver reports that he intermittently gets that way. However, today, he was noticed to have increased work of breathing and increased respiratory rate. He was brought to the emergency roomfor further evaluation. In the emergency room, he was found to have RSV. He also was found on imaging to have possible cholecystitis. He is being admitted for further management. The caregiver denies any nausea or vomiting. He is unable to tell if he is having any abdominal pain but he has not been visibly uncomfortable I was able to talk to him mom/caregiver. She reports that the patient had significant decreased po intake yesterday but no pain. She admits that it is hard to tell if he is uncomfortable due to his intellectual disability. Hospital Course: Acute calculus cholecystitis-laparoscopic converted to open cholecystectomy on 11/15. TRENT drain removed on 11/18. Follow-up with TACS 2 weeks postdischarge. Streptococcus sanguinous bacteremia- TTE without vegetation.CT facial bones and sinus-no abscess orosteomyelitis. Completed 2 weeks course of ceftriaxone. RSV-not hypoxic. Conservative management. Acute on chronic postop anemia-H&H stable. Monitor. Complex partial seizure disorder-follows up with neurologist at [facility].S/p VNS in place. No need for device check per prior hospitalist discussion with device rep. Concern for breakthrough seizure on 11/23 with postictal.MET was called. CT head no acute process and cEEG no seizures. Refused to take meds intermittently for few days. Now compliance w meds.Continue clobazam, Vimpat ,zonisamide and Lamictal. 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 Instruction given for transition from clonidine patch to pill. GERD-continue Pepcid. Autism with developmental delay-minimally verbal. Continue BuSpar. Physical debility-patient need manual wheelchair for home mobility. Unable to ambulate with walker.Patient has caregiver who is willing to navigate wheelchair. DIET GENERAL Effective Now DIET SUPPLEMENT GEN ADULT TID; Complete Oral Supplement, Discharge Condition: improving. Follow-up: Gulshan Mena DO in 5 day(s). More than 32 minutes were spent in this discharge activity. Signed: Aundrea Gutierrez MD 11/27/2023, 1:41 PM * Aundrea Gutierrez MD - 11/26/2023 9:40 AM CDT Images from the original note were not included. Curt Granados Beebe 38 y.o. male 1985 CSN: [id number] Date of Admission: 11/13/2023 Date of Discharge: 11/26/2023 Discharging Physician: Aundrea Gutierrez MD LOS: 13 days PCP: Gulshan Mena DO Activity: activity as tolerated. Dispo: home Diet: DIET GENERAL Effective Now DIET SUPPLEMENT GEN ADULT TID; Complete Oral Supplement, Code Status at Discharge: Full Code Wound Care: As directed Admitting Dx: Acute calculous cholecystitis Discharge Diagnoses: Principal Problem: Acute calculous cholecystitis Active Problems: Development delay Autism Seizure disorder, complex partial, with intractable epilepsy RSV infection Streptococcal bacteremia History of penicillin allergy Generalized muscle weakness Post-ictal state Discharge medications and new prescriptions: Medication List START taking these medications cefdinir 300 mg capsule Commonly known as: OMNICEF Take 1 Capsule (300 mg) by mouth every 12 hours for 1 day. Start taking on: November 27, 2023 Signed by: Dr. Elaine Gutierrez Quantity: 2 Capsule Refills: 0 naproxen 250 mg tablet Commonly known as: NAPROSYN Take 1 Tablet (250 mg) by mouth 2 times daily as needed for Pain, Moderate. Signed by: Dr. Elaine Gutierrez Quantity: 60 Tablet Refills: 0 CHANGE how you take these medications cloNIDine HCL 0.3 mg tablet Commonly known as: CATAPRES What changed: additional instructions Take 1 Tablet (0.3 mg) by mouth late in the day. He has clonidine patch. Remove the patch on 11/28/2023 and then restart clonidine pill 8 to 12 hours later removing the patch. Signed by: Dr. Elaine Gutierrez Refills: 0 CONTINUE taking these medications acetaminophen 325 mg [...] mg Tablet Commonly known as: ONFI Take 40 mg by mouth daily at bedtime. Refills: 0 Colace 100 mg capsule Take [...] Refills: 0 Valtoco 10 mg/spray (0.1 mL) [place], Non-Aerosol Administer 10 mg in each nostril [...] duplicate medications found. Review medication list carefully. Where to Get Your Medications These medications were sent to [place] [id number] Hours: Open Daily 8 am - 12 am (midnight) cefdinir 300 mg capsule naproxen 250 mg tablet Information about where to get these medications is not yet available Ask your nurse or doctor about these medications cloNIDine HCL 0.3 mg tablet Consultants: IP CONSULT TO GENERAL SURGERY IP CONSULT TO INFECTIOUS DISEASES IP CONSULT TO SOCIAL WORK IP CONSULT TO HOME CARE NEEDS Significant Diagnostic Studies This Admission: CT C/A/P: 1. Mild right middle and lower lobe basilar opacities that favor atelectasis. 2. Otherwise no acute process within limits of motion artifact and a noncontrast exam. 1. Distended gallbladder with moderate wall thickening and surrounding inflammatory stranding suggestive of cholecystitis HIDA: Abnormal hepatobiliary imaging study. Nonvisualization of the gallbladder at 60 minutes supportive of the diagnosis of acute acalculous cholecystitis. CT sinus and face: No obvious bone erosion, periapical lucency, or peripherally enhancing fluid collection in the oral cavity. Correlation with dental evaluation is recommended. CTA chest: 1. No pulmonary embolus. 2. New small right pleural effusion. Bilateral lower lobe and right middle lobe atelectasis. 3. Right upper lobe pulmonary tree-in-bud opacities are likely infectious/inflammatory. 4. Interval cholecystectomy CT head: No acute intracranial abnormality. TTE: - Left ventricle: The cavity size was normal. Wall thickness was normal. Global systolic function is normal. For Epic reporting: the left ventricular ejection fraction is 70% . Left ventricular diastolic function parameters are normal. - Left atrium: The atrium is normal in size. - Right ventricle: The cavity size is normal. Systolic function is normal. - Pulmonary arteries: Systolic pressure was within the normal range. Labs from this Hospitalization Needing Follow Up: None Discharge Lab Data: Lab Results Component Value Date WBC 8.7 11/25/2023 HGB 8.5 (L) 11/25/2023 HCT 27.1 (L) 11/25/2023 PLT 329 11/25/2023 NA 137 11/25/2023 CL 106 11/25/2023 K 4.1 11/25/2023 CO2 21 (L) 11/25/2023 BUN 16 11/25/2023 CREAT 0.70 11/25/2023 GLUCOSE 94 11/25/2023 AST 33 11/21/2023 ALT 33 11/21/2023 CRP 146.0 (H) 11/18/2023 Discharge Exam: BP 97/58 (BP Location: Left arm, Patient Position (BP): Supine) Pulse 93 Temp 98.5 ??F (36.9 ??C) (Axillary) Resp 16 Ht 5' 7 (1.702 m) Wt 76.1 kg (167 lb 12.8 oz) SpO2 99% BMI 26.28 kg/m?? Physical Exam: General: Alert, no distress. Heart: Regular rate and rhythm, S1, S2 normal Lungs: Clear to auscultation bilaterally Abdomen: Soft, non-tender. Bowel sounds times four. Extremities: No clubbing, cyanosis or edema Skin: Skin color, texture, turgor normal. Head: Normocephalic, atraumatic Neck: Supple, symmetrical, trachea midline, no adenopathy. Neuro: Moving all 4 extremities. HPI: As per HPI, aisha is a 38 y.o. male with PMHx of Intellectual disability who presents to the emergency room with increased work of breathing. The patient is nonverbal so history is obtained from the caregiver at the bedside. The patient lives in a snf. He yesterday was noted to be a little out of it but the caregiver reports that he intermittently gets that way. However, today, he was noticed to have increased work of breathing and increased respiratory rate. He was brought to the emergency roomfor further evaluation. In the emergency room, he was found to have RSV. He also was found on imaging to have possible cholecystitis. He is being admitted for further management. The caregiver denies any nausea or vomiting. He is unable to tell if he is having any abdominal pain but he has not been visibly uncomfortable I was able to talk to him mom/caregiver. She reports that the patient had significant decreased po intake yesterday but no pain. She admits that it is hard to tell if he is uncomfortable due to his intellectual disability. Hospital Course: Acute calculus cholecystitis-laparoscopic converted to open cholecystectomy on 11/15. TRENT drain removed on 11/18. Follow-up with TACS 2 weeks postdischarge. Streptococcus sanguinous bacteremia- TTE without vegetation.CT facial bones and sinus-no abscess orosteomyelitis. Complete total of 2 weeks course of antibiotic through 11/26. Received ceftriaxone in the hospital. Changed to cefdinir at DC to complete the course. RSV-not hypoxic. Conservative management. Acute on chronic postop anemia-H&H stable. Monitor. Complex partial seizure disorder-follows up with neurologist at [facility].S/p VNS in place. No need for device check per prior hospitalist discussion with device rep. Concern for breakthrough seizure on 11/23 with postictal.MET was called. CT head no acute process and cEEG no seizures. Refused to take meds intermittently for few days. Now compliance w meds.Continue clobazam, Vimpat ,zonisamide and Lamictal. 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 Instruction given for transition from clonidine patch to pill. GERD-continue Pepcid. Autism with developmental delay-minimally verbal. Continue BuSpar. Physical debility-patient need manual wheelchair for home mobility. Unable to ambulate with walker.Patient has caregiver who is willing to navigate wheelchair. DIET GENERAL Effective Now DIET SUPPLEMENT GEN ADULT TID; Complete Oral Supplement, Discharge Condition: improving. Follow-up: Gulshan Mena DO in 5 day(s). More than 32 minutes were spent in this discharge activity. Signed: Aundrea Gutierrez MD 11/26/2023, 9:44 AM documented in this encounter Discharge Instructions * Discharge Instructions* Aundrea Gutierrez MD - 11/19/2023 10:50 AM CDT Your discharging physician is Aundrea Gutierrez MD and may be reached at for any questions or concerns until you see your doctor. FOLLOW-UP Follow up with Gulshan Mena DO in 5 days. Follow up with surgeon in 2 weeks. Prescriptions given?No ACTIVITY Your activity level is: increase activity as tolerated. DIET Your diet is: DIET GENERAL Effective Now DIET SUPPLEMENT GEN ADULT TID; Complete Oral Supplement, General Surgery Discharge Instructions: Incisions have glue on them. Do not pick it off, it will fall off on its own. You may shower, allow soap/water to run over incisions and pat dry afterwards. No submerging in pool/tub/bath until incisions are completely healed. OK for regular diet, would recommend small/light frequent meals for the first few days as your intestines recover. No lifting above 10 lbs for 4 weeks OK for stairs, normal activities No driving while taking narcotic pain medications or still having abdominal pain Follow up in surgery clinic in 2 weeks for routine check documented in this encounter Medications at Time [...] Allergies. diazePAM (Valtoco) 10 mg/spray (0.1 mL) [place], Non-Aerosol Administer 10 mg in each nostril [...] daily. 01/08/2024 documented as of this encounter Progress Notes * Merrill Soliman MSW - 11/28/2023 3:38 PM CDT 11/28/23 1300 Discharge Planning Plan Discharge To Intermediate care facility/assisted living;Other (Comment) (senior living) Patient/Family Communications Confirmed Discharge Plan Discharge Plan Agreed Upon Family member Has discharge transport been arranged? Yes Transportation Provider [facility] Provider Phone Final Discharge Arrangements Final Discharge Disposition Intermedia (senior living) Care Facility Name [facility] Contact Name [facility] Services Arranged For Discharge Home health Agency Name [facility] Service Agency Contact Name [facility] Date Of Pick-Up 11/28/23 Time Of Pick-Up 2100 Copy of this transfer form will be sent with patient along with: Demographic sheet;AVS;Pertinent Medical Records All discharge arrangements completed. [facility] and pt's mother notified of EMS transport time, all amenable. Transportation upon Discharge form completed. Patient requires supervision for transport: YES Options for safe transport discussed with care team and presented to patient/ family. Mother contacted and aware of discharge. If patient going LTAC, REHAB, SNF, INTERMEDIATE CARE FACILITY: Attending MD is Gulshan Mena DO, who can be reached at [phone]. * Tammy Sena RN - 11/27/2023 11:30 PM CDT Shift Summary Assumed care around 1500. Alert. Non-verbal. Appears comfortable. RA. No new UO noted around 2030; bladder scan showed 440 ml. Tatianna Briones notified. Order for straight cath received. Prior to performing straight cath, pt was incontinent of large amount of urine. Repeat bladder scan showed 7 ml. Straight cath was not performed. Abdominal incision WDL. Fall and seizure precautions. Report given to and care assumed by MAURO Graham around 2330. * Odalys Brantley NP - 11/27/2023 8:43 PM CDT [facility] 11/27/23 8:44 PM Contacted for: I have not noticed urine output since I took over Curt's care at 1500. I just bladder scanned him and it showed 440 ml. Can I straight cath? Vitals: 11/27/232020 BP: 108/77 Pulse: 84 Resp: 20 Temp: 98.8 ??F (37.1 ??C) SpO2: 98% Intervention/Follow up/Discussion: Reviewed chart, patient here for acute calculus cholecystitis, autism, complex partial seizure. Straight cath x 1 ordered. Odalys Brantley NP * Naty Varner RN - 11/26/2023 5:47 PM CDT Report called to 6th floor RN, transportation ordered. * Fanny Pappas GN - 11/26/2023 5:03 AM CDT End of Shift Note: Patient had no acute changes this shift. No contact from family during this shift. Patient is resting in bed at this time. No complaints or concerns. Neuro: Non verbal patient. Does follow commands. Seizure precautions in place. Resp: Room air. Clear lung sounds bilaterally. CV: HR 80-90. SBP 110. 2/2 pulses. Afebrile. GI: One moderate BM this shift. Endocrine: General diet. : Male purwick in place. Adequate urine output. Skin: Scattered bruising. 20G L arm. Q2 turns. Sleep Evaluation: Patient slept during most of this shift. But sleep was interrupted during turningtimes. * Raleigh Kaplan MD - 11/25/2023 4:29 PM CDT Continuous EEG a 38-year-old man with developmental delay, history of seizure EEG shows mild to moderate generalized background slowing and disorganization. No seizure. * Cate Cartagena RD - 11/25/2023 12:08 PM CDT Images from the original note were not included. CLINICAL DIETITIAN PROGRESS NOTE [facility] Follow Up Nutrition Assessment PT with improved PO intake with 100% of most meals. Sending 10 oz shakes & Ensure - variety of flavors at all meals. Encouraged high protein foods q meals to aid with healing and recovery. Assessment: Recent Labs 11/24/23 1841 11/25/23 0616 GLUCOSE 123* 94 BUN 18 16 CREAT 0.67 0.70 GFR >60 >60 NA 137 137 K 4.0 4.1 CL 105 106 CO2 20* 21* ANIONGAP 12 10 CA 8.7 8.8 MG 2.6 -- Skin: See Flowsheet for more wound documentation Star Score: 13 (11/25/23 0923) Anthropometrics: Height: 5' 7 (170.2 cm) (11/14/23311) Weight: 76.1 kg (167 lb 12.8 oz) (11/14/23311) Body massindex is 26.28 kg/m??. Last Bowel Movement (mm/dd/yyyy): 11/23/23 (11/23/23 2100) Nutrition Prescription: DIET GENERAL Effective Now DIET SUPPLEMENT GEN ADULT TID; Complete Oral Supplement, Food/Meal: Breakfast (11/25/23 0800) Diet/Feeding Tolerance: good (11/24/23 0900) Nutrition intake is currently meeting recommended nutritional needs D: Same/ I:Nutrition Intervention: DIET GENERAL Effective Now DIET SUPPLEMENT GEN ADULT TID; Complete Oral Supplement, Goal: Consume 75% of meals/ supplements Time spent: 15 minutes M/E: 1. Continue to monitor: Anthropometrics, Digestive, Skin, and Biochemical data 2. Follow up every 4-7 days and as needed. Samantha Cartagena RD LD Cell phone [phone] Office phone: [phone] Secure chat * Aundrea Gutierrez MD - 11/25/2023 10:56 AM CDT [facility] Adult Hospitalist Progress Note Admit Date: 11/13/2023 Date of Note: 11/25/2023, 11:14 AM LOS: 12 days Previous history of present illness and review of systems have been reviewed today as documented inthe H&P on 11/13/2023; medications, labs, studies, notes, orders and consults have been reviewed. I have reviewed the notes from yesterday. Assessment and Plan Principal Problem: Acute calculous cholecystitis Active Problems: Development delay Autism Seizure disorder, complex partial, with intractable epilepsy RSV infection Streptococcal bacteremia History of penicillin allergy Generalized muscle weakness Post-ictal state Acute calculus cholecystitis-laparoscopic converted to open cholecystectomy on 11/15. TRENT drain removed on 11/18. Follow-up with TACS 2 weeks postdischarge. Streptococcus sanguinous bacteremia- TTE without vegetation.CT facial bones and sinus-no abscess orosteomyelitis. Complete total of 2 weeks course of antibiotic through 11/26. Continue IV ceftriaxone in the hospital. Changed to cefdinir at DC to complete the course. RSV-not hypoxic. Conservative management. Acute on chronic postop anemia-H&H stable. Monitor. Complex partial seizure disorder-follows up with neurologist at [facility].S/p VNS in place. No need for device check per prior hospitalist discussion with device rep. Concern for breakthrough seizure on 11/23 with postictal.MET was called. CT head no acute process. Follow-up EEG. Patient has been taking his medications for the past 3 days. Continue clobazam, Vimpat ,zonisamide and Lamictal. Essential tremor-continue clonidine patch and Inderal. GERD-continue Pepcid. Autism with developmental delay-minimally verbal. Continue BuSpar. Physical debility-patient need manual wheelchair for home mobility. Unable to ambulate with walker.Patient has caregiver who is willing to navigate wheelchair. Called patient's mom Mary, didn't answer.Left VM. DIET GENERAL Effective Now DIET SUPPLEMENT GEN ADULT TID; Complete Oral Supplement, DVT Prophylaxis - Enoxaparin Chavez catheter:absent Lines: Peripheral IV Activity Order: As tolerated Current Code Status -Full Code Current Planned Disposition - Home ? tomorrow Subjective: Patient seen today morning. Alert. No fever. Objective: BP 106/66 (BP Location: Left arm, Patient Position (BP): Supine) Pulse 78 Temp 97.7 ??F (36.5 ??C) (Axillary) Resp 25 Ht 5' 7 (1.702 m) Wt 76.1 kg (167 lb 12.8 oz) SpO2 98% BMI 26.28 kg/m?? Temp (24hrs), Av.3 ??F (36.8 ??C), Min:97.6 ??F (36.4 ??C), Max:98.8 ??F (37.1 ??C) Incontinent large amount stool (11/23/23 2100) Exam: General: Alert, no distress. Heart: Regular rate and rhythm, S1, S2 normal. Lungs: Clear to auscultation bilaterally. Abdomen: Soft, non-tender. Bowel sounds times four. Extremities: No clubbing, cyanosis or edema Skin: Skin color, texture, turgor normal. Head: Normocephalic, atraumatic Neck: Supple, symmetrical, trachea midline. Neuro: Moving all 4 extremities Labs Recent labs reviewed. CT C/A/P: 1. Mild right middle and lower lobe basilar opacities that favor atelectasis. 2. Otherwise no acute process within limits of motion artifact and a noncontrast exam. 1. Distended gallbladder with moderate wall thickening and surrounding inflammatory stranding suggestive of cholecystitis HIDA: Abnormal hepatobiliary imaging study. Nonvisualization of the gallbladder at 60 minutes supportive of the diagnosis of acute acalculous cholecystitis. CT sinus and face: No obvious bone erosion, periapical lucency, or peripherally enhancing fluid collection in the oral cavity. Correlation with dental evaluation is recommended. CTA chest: 1. No pulmonary embolus. 2. New small right pleural effusion. Bilateral lower lobe and right middle lobe atelectasis. 3. Right upper lobe pulmonary tree-in-bud opacities are likely infectious/inflammatory. 4. Interval cholecystectomy CT head: No acute intracranial abnormality. TTE: - Left ventricle: The cavity size was normal. Wall thickness was normal. Global systolic function is normal. For Epic reporting: the left ventricular ejection fraction is 70% . Left ventricular diastolic function parameters are normal. - Left atrium: The atrium is normal in size. - Right ventricle: The cavity size is normal. Systolic function is normal. - Pulmonary arteries: Systolic pressure was within the normal range. Aundrea Gutierrez MD, Hospitalist Please contact via T[employer] Secure Chat from 7am-7pm After hours please place [facility] * Chely Mckinley, BUTTON MAKER AND INSTALLER - 11/24/2023 6:24 PM CDT Images from the original note were not included. RAPID RESPONSE TEAM ADULT CRITICAL CARE MEDICINE DATE: 11/24/2023 NAME: Curt Beebe : 1985 CSN: [id number] Subjective: Reason for rapid response team activation: AMS, lethargy. Brief summary of events leading to activation of rapid response: During RN afternoon assessment patient appeared to be less responsive and somnolent. Patient briefly wakes to verbal and tactile stimulation but will quickly fall back asleep. MET team called for evaluation. Objective: History of present illness and review of systems have been reviewed today as documented in the on admission. Medications, labs, pertinent imaging studies, notes, consults (if present) and orders from current encounter have been reviewed. Most recent vital signs: Patient Vitals for the past 2 hrs: Temp 11/24/23 1800 98.8 ??F (37.1 ??C) Intake/Output Summary (Last 24 hours) at 11/24/2023 1928 Last data filed at 11/24/2023 1630 Gross per 24 hour Intake 493.31 ml Output 765 ml Net -271.69 ml Results for orders placed or performed during the hospital encounter of 11/13/23 (from the past 24 hour(s)) CBC WITH DIFFERENTIAL Result Value Ref Range WBC 9.8 4.0 - 9.8 K/uL RBC 2.90 (L) 4.50 - 5.40 M/uL HEMOGLOBIN 9.0 (L) 13.6 - 16.5 g/dL HEMATOCRIT 27.5 (L) 40.0 - 48.0 % MCV 94.8 82.0 - 99.0 fL MCH 31.0 27.2 - 32.6 pg MCHC 32.7 31.5 - 35.5 g/dL RDW 13.9 11.5 - 14.5 % RDW-STDEV 44.9 37.1 - 48.7 fL PLATELETS 361 (H) 140 - 350 K/uL MPV 8.9 (L) 9.3 - 12.4 fL MANUAL DIFFERENTIAL Result Value Ref Range SEGMENTED NEUTROPHILS 61 % LYMPHOCYTES RELATIVE 27 (L) 43 - 53 % ATYPICAL LYMPHOCYTES RELATIVE 5 0 - 5 % MONOCYTES RELATIVE 2 % EOSINOPHILS RELATIVE 3 % BASOPHILS RELATIVE 2 % METAMYELOCYTES RELATIVE 1 (H) <=0 % NEUTROPHILS ABSOLUTE COUNT 5.97 1.90 - 7.00 K/uL LYMPHOCYTES ABSOLUTE 2.67 0.70 - 4.50 K/uL MONOCYTES ABSOLUTE 0.18 0.10 - 1.30 K/uL EOSINOPHILS ABSOLUTE 0.27 0.00 - 0.70 K/uL BASOPHILS ABSOLUTE 0.18 0.00 - 0.20 K/uL TOTAL CELLS COUNTED IN DIFF 110 RBC MORPHOLOGY abnormal PLATELET EST. Consistent w Count ANISOCYTOSIS 1+ /hpf POLYCHROMASIA 1+ /hpf POC GLUCOSE Result Value Ref Range GLUCOSE POC 112 (H) 74 - 99 mg/dL SPECIMEN SOURCE, GLUCOSE POC Whole Blood LACTIC ACID Result Value Ref Range LACTIC ACID 1.2 <=2.0 mmol/L CBC WITH DIFFERENTIAL Result Value Ref Range WBC 10.3 (H) 4.0 - 9.8 K/uL RBC 2.73 (L) 4.50 - 5.40 M/uL HEMOGLOBIN 8.6 (L) 13.6 - 16.5 g/dL HEMATOCRIT 25.9 (L) 40.0 - 48.0 % MCV 94.9 82.0 - 99.0 fL MCH 31.5 27.2 - 32.6 pg MCHC 33.2 31.5 - 35.5 g/dL RDW 14.5 11.5 - 14.5 % RDW-STDEV 46.1 37.1 - 48.7 fL PLATELETS 370 (H) 140 - 350 K/uL MPV 8.8 (L) 9.3 - 12.4 fL BASIC METABOLIC PANEL Result Value Ref Range SODIUM 137 136 - 145 mmol/L POTASSIUM 4.0 3.5 - 5.0 mmol/L CHLORIDE 105 98 - 107 mmol/L CO2 20 (L) 22 - 29 mmol/L CALCIUM 8.7 8.6 - 10.2 mg/dL BUN 18 6 - 20 mg/dL CREATININE 0.67 0.67 - 1.17 mg/dL GLUCOSE 123 (H) 74 - 99 mg/dL GFR >60 >=60 mL/min/1.73 sq meter ANION GAP 12 8 - 16 mmol/L MAGNESIUM LEVEL Result Value Ref Range MAGNESIUM 2.6 1.6 - 2.6 mg/dL BLOOD GAS ARTERIAL Result Value Ref Range PH ARTERIAL 7.39 7.35 - 7.45 PCO2 ARTERIAL 37 35 - 48 mm Hg PO2 ARTERIAL 89 83 - 108 mm Hg HCO3 ARTERIAL 22 22 - 26 mmol/L BASE EXCESS ABG -2.3 (L) -2.0 - 3.0 mmol/L O2 SAT EST ARTERIAL 98 95 - 99 % P/F RATIO ARTERIAL 424 OXYGEN MODE Room Air FIO2 21.0 21.0 - 100.0 % POC glucose: 113 POC ABG: pH 7.39 , pCO2 37 , HCO3 22, pO2 89, SO2 98 12 lead ECG: (independent interpretation) PHYSICAL EXAM: Gen: Afebrile. Appears in no acute distress. Somnolent Neuro: Wakes briefly to verbal and tactile stimulation. HEENT: PERRLA. EOMI. Sclera clear, anicteric. Oropharynx clear, no oral lesions noted, mucous membranes pink and moist. Trachea midline. Cardiac: Normal rate, regular rhythm. No murmurs, rubs, clicks or gallops appreciated. Pulm: Lungs CTA in all lobes. Resp deep, even and unlabored. Good john air entry with symmetrical chest wall movement. Abdomen: Round, soft, non-tender, non-distended. Normal bowel sounds. Skin: [place], warm/dry. Extremities: Peripheral pulses 2+ with no edema noted. Assessment/Plan: On arrival of Met team, patient was laying in bed with eyes closed. Patient did not appear in acutedistress. Patient afebrile, VSS. RN states that patient was awake and alert for breakfast and lunch. At baseline patient has known developmental delay and autism and is minimally verbal. During afternoon assessment, RN noticed that patient was more somnolent. Patient has known seizure disorder and takes 4 different medications for seizure control. Patient had received all medications today and also has a history of breakthrough seizures while on medication. Patient was not observed having a seizure. Cannot rule out seizure with postictal presentation. Patient has not received any narcotics. Patient will wake up to verbal and tactile stimulation. Patient will drift back to sleep once stimulation has stopped. ABG, CBC, BMP, lactic, prolactin ordered. Discussed with hospitalist. Hospitalist ordered 24-hour EEG and CT of head. RN also notes that patient has not urinated since 9 AM. 1 L LR started. UA and urine culture pending collection from this morning. Brother came to visit and states that patient has a history of seizures that he will freeze position and stare . Explained to brother that patient was suspected postictal. VS remained stable. Patient on room air. As patient was leaving for CT scan he woke up and was laughing and communicating with family. Patient remained awake and alert. Somnolent suspected secondary to seizure -CT head -ABG -CBC, BMP, MG, Phos, Lactic Additional comments: I reviewed rapid response team events with Dr. Gupta via phone call. Patient disposition: stayed in room. Critical care time approximately 60 minutes. E/M visit level III Chely Mckinley APRN-[facility] Adult Critical Care Medicine [facility] * Kanika Feliz GN - 11/24/2023 5:25 PM CDT Neuro: Nonverbal, Utilized FLACC; Seizure Precaution in place Resp: RA CV: HR: 80-90 SBP: 90-120. SQ Lovenox GI/: Regular Diet Skin: Abdominal Incision [place] Met Call @ 1817: Caregiver at the bedside reporting difficulty arousing patient. Pt responds to painful stimuli and a sternal rub but remains hard to arouse. Eventually, pt became arousable, though still lethargic. Met team was called to assess. Labs were collected, and a CT completed for further evaluation. To confirm, the patient has received all antiepileptic medications over the past three days. There has been no urine output since 0900. BSCAN performed at 1600 @250. Provider notified at 1630 of absence of urine and BSCAN amount. Blood cultures were collected today; currently awaiting urine output to send UA specimen. * Lyndon Gupta, DO - 11/24/2023 10:52 AM CDT [facility] Adult Hospitalist Progress Note Admit Date: 11/13/2023 Date of Note: 11/24/2023, 10:55 AM LOS: 11 days ASSESSMENT AND PLAN: Principal Problem: Cholecystitis Active Problems: Development delay Seizure disorder, complex partial, with intractable epilepsy RSV (acute bronchiolitis due to respiratory syncytial virus) Leukocytosis (leucocytosis) Febrile RSV infection Streptococcal bacteremia History of penicillin allergy Acute acalculous cholecystitis Generalized muscle weakness Impression/plan 1. Streptococcus sanguinis bacteremia-appreciate infectious disease assistance in patient care. Echocardiogram did not show any evidence of vegetations. Patient will continue with IV Rocephin while inpatient with plans to transition to oral cefdinir for 1 week at discharge per infectious disease recommendations. CRP is trending down. CT facial bones did not show any evidence of osteomyelitis nor abscess. CT of chest showed opacities in right middle and lower lobes. CT of abdomen showed distended gallbladder consistent with cholecystitis. Will need to monitor vagal nerve stimulator closely forany signs of infection. 2. Acute calculus cholecystitis-patient is status post cholecystectomy on 11/16/2023. TRENT drain was removed on 11/19/2023. Surgery signed off. Patient will need to follow-up with surgery in outpatient setting in 2 weeks after discharge. 3. RSV infection-will continue on droplet/contact precautions. Patient has not been hypoxic. Will continue with symptomatic care. 4. Seizure disorder-status post vagal nerve stimulator placement. Patient has been more compliant with taking his medications over the past 3 days per nursing report. Patient will continue with Vimpat, Lamictal and Zonegran. Patient has been following with neurology at [facility]. Patient has a history ofhaving frequent breakthrough seizures. Prior hospitalist discussed with VNS device rep and it was felt that there is no need for device check while inpatient. Patient will need to follow-up with neurology in the office after discharge for device check. 5. Essential tremor-patient will continue with Inderal and clonidine patch. 6. Acute on chronic anemia-hemoglobin appears to be stable. Will continue to monitor closely for now. 7. Fever-will obtain portable chest x-ray along with urinalysis with urine C&S if indicated andwill repeat blood cultures. Nutrition: Current Diet and/or Nutritional Supplementation ordered: DIET GENERAL Effective Now DIET SUPPLEMENT GEN ADULT TID; Complete Oral Supplement, Quality/Safety/Core Measures/Disposition Planning: DVT Prophylaxis - Enoxaparin PT POC OT Current Discharge Recommendation: Other (comment in note) (11/22/23 8914) OT POC PT Current Discharge Recommendation: Post acute care;Will tolerate 3 hours of therapy (11/22/23 3435) Chavez catheter:absent Current Code Status -Full Code Plan discussed with patient, questions answered. Estimated Discharge Day: 11/27/2023 Current Planned Disposition - Dispo: home SUBJECTIVE: Patient was seen and evaluated at bedside this morning with nursing present in the room. Patient was sitting up in the chair without any acute distress. It was brought to my attention that patient had a temperature of 100.2 degrees last evening. Patient does not appear to have any obvious pain nor respiratory distress. Patient has been compliant with taking his antiseizure medication per nursing report over the past 3 days. ROS: History obtained from patient's nurse Constitutional: Patient had a fever last pm. Pulmonary: No obvious respiratory distress Objective BP 110/60 (BP Location: Left arm, Patient Position (BP): Supine) Pulse 89 Temp 99.8 ??F (37.7 ??C) Resp 28 Ht 5' 7 (1.702 m) Wt 76.1 kg (167 lb 12.8 oz) SpO2 97% BMI 26.28 kg/m?? Temp (24hrs), Av.3 ??F (37.4 ??C), Min:98.4 ??F (36.9 ??C), Max:100.2 ??F (37.9 ??C) Incontinent large amount stool (11/23/23 2100) EXAM: General: alert, in no distress . Patient is nonverbal. Neurologic: Grossly normal HEENT: atraumatic, Normocephalic, without obvious abnormality Lungs: clear to auscultation bilaterally, normal respiratory effort Heart: normal rate, regular rhythm, normal S1, S2, no murmurs, rubs, clicks or gallops Abdomen: Soft, non-tender. Bowel sounds normal. No masses, no organomegaly. Incision with helen is without any signs of obvious infection. Extremities: no cyanosis or edema LABORATORY: Recent Labs 11/21/23 1221 11/22/23 0611 11/23/23 0618 11/24/23 0508 WBC -- 10.1* 8.5 9.8 HGB 8.1* 8.4* 8.9* 9.0* HCT 25.5* 25.2* 27.0* 27.5* PLT -- 335 295 361* Recent Labs 11/22/23 0611 NA 138 K 4.0 CL 107 CO2 21* CA 8.5* BUN 12 CREAT 0.66* GLUCOSE 113* Diagnostic testing reviewed by me: Medications reviewed by me Lyndon Gupta DO Please contact me via [employer] Secure Chat from 7am-7pm After hours please place E-ticket to [facility] This documentation was written in part with the use of [employer]ap speech to text software. Effort has been done to assure accuracy of boiler welder. Any errors in spelling, syntax, or meaningshould be interpreted in the context of the broader note. Any obvious errors or omissions should beclarified with the author of the document. * Trish Romero RN - 11/24/2023 6:03 AM CDT End of Shift Note: Neuro: Nonverbal No c/o pain. Sz precautions in place Resp: Room air Clear lung sounds CV: SR 90 SBP 90-110 Pulses 2/1 TMAX 100.2, Tylenol given SQ Lovenox GIGU: Regular Purewick w/AUOP +BM Skin: Abd incision helen CDI. No new skin changes. Q2 turns Lines: 20 L arm * Kanika Feliz GN - 11/23/2023 5:57 PM CDT Neuro: Nonverbal; FLACC utalized. Resp: Room Air CV: WDL; SubQ lovenox GI/: Male Purewick; General Diet; takes meds with chocolate ice cream. Skin: Abdominal helen * Lyndon Gupta DO - 11/23/2023 12:27 PM CDT [facility] Adult Hospitalist Progress Note Admit Date: 11/13/2023 Date of Note: 11/23/2023, 12:28 PM LOS: 10 days ASSESSMENT AND PLAN: Principal Problem: Cholecystitis Active Problems: Development delay Seizure disorder, complex partial, with intractable epilepsy RSV (acute bronchiolitis due to respiratory syncytial virus) Leukocytosis (leucocytosis) Febrile RSV infection Streptococcal bacteremia History of penicillin allergy Acute acalculous cholecystitis Generalized muscle weakness Impression/plan 1. Streptococcus sanguinis bacteremia-appreciate infectious disease assistance in patient care. Echocardiogram did not show any evidence of vegetations. Patient will continue with IV Rocephin while inpatient with plans to transition to oral cefdinir for 1 week at discharge per infectious disease recommendations. CRP is trending down. CT facial bones did not show any evidence of osteomyelitis nor abscess. CT of chest showed opacities in right middle and lower lobes. CT of abdomen showed distended gallbladder consistent with cholecystitis. Will need to monitor vagal nerve stimulator closely forany signs of infection. 2. Acute calculus cholecystitis-patient is status post cholecystectomy on 11/16/2023. TRENT drain was removed on 11/19/2023. Surgery signed off. Patient will need to follow-up with surgery in outpatient setting in 2 weeks after discharge. 3. RSV infection-will continue on droplet/contact precautions. Patient has not been hypoxic. Will continue with symptomatic care. 4. Seizure disorder-status post vagal nerve stimulator placement. Patient has been refusing oral medications intermittently. Patient will continue with Vimpat, Lamictal and Zonegran. [facility]. Patient has a history of having frequent breakthrough seizures. Prior hospitalist discussed with [employer] device rep and it was felt that there is no need for device checkwhile inpatient. Patient will need to follow-up with neurology in the office after discharge for device check. 5. Essential tremor-patient will continue with Inderal and clonidine patch. 6. Acute on chronic anemia-hemoglobin appears to be stable. Will continue to monitor closely for now. Nutrition: Current Diet and/or Nutritional Supplementation ordered: DIET GENERAL Effective Now DIET SUPPLEMENT GEN ADULT TID; Complete Oral Supplement, Quality/Safety/Core Measures/Disposition Planning: DVT Prophylaxis - Enoxaparin PT POC OT Current Discharge Recommendation: Other (comment in note) (11/22/23 0808) OT POC PT Current Discharge Recommendation: Post acute care;Will tolerate 3 hours of therapy (11/22/23 0993) Chavez catheter:absent Current Code Status -Full Code Plan discussed with patient, questions answered. Estimated Discharge Day: 11/25/2023 Current Planned Disposition - Dispo: home SUBJECTIVE: Patient was seen and evaluated at bedside this morning with nursing present in the room. Patient isnonverbal. According to nursing report, patient has not consistently been taking his medications. Patient has been eating. Patient does not appear to have any obvious pain or respiratory distress. Telemetry showed a sinus rhythm. ROS: History obtained from patient's nurse Constitutional: Patient's been afebrile Pulmonary: No obvious respiratory distress Objective BP 100/60 (BP Location: Left arm, Patient Position (BP): Supine) Pulse 85 Temp 98.9 ??F (37.2 ??C) (Axillary) Resp 25 Ht 5' 7 (1.702 m) Wt 76.1 kg (167 lb 12.8 oz) SpO2 95% BMI 26.28 kg/m?? Temp (24hrs), Av.1 ??F (37.3 ??C), Min:98.8 ??F (37.1 ??C), Max:99.6 ??F (37.6 ??C) Incontinent large amount stool (11/22/23 0000) EXAM: General: alert, in no distress Neurologic: Grossly normal HEENT: atraumatic, Normocephalic, without obvious abnormality Lungs: clear to auscultation bilaterally, normal respiratory effort Heart: normal rate, regular rhythm, normal S1, S2, no murmurs, rubs, clicks or gallops Abdomen: Soft, non-tender. Bowel sounds normal. No masses, no organomegaly. Extremities: no cyanosis or edema LABORATORY: Recent Labs 11/21/23 0554 11/21/23 1221 11/22/23 0611 11/23/23 0618 WBC 9.1 -- 10.1* 8.5 HGB 7.3* 8.1* 8.4* 8.9* HCT 22.1* 25.5* 25.2* 27.0* PLT 324 -- 335 295 Recent Labs 11/21/23 0554 11/22/23 0611 NA 139 138 K 3.6 4.0 CL 107 107 CO2 21* 21* CA 8.1* 8.5* BUN 13 12 CREAT 0.68 0.66* GLUCOSE 117* 113* Recent Labs 11/21/23 0554 TOTALPROTEIN 5.8* ALBUMIN 3.0* BILITOTAL 0.4 ALKPHOS 206* AST 33 ALT 33 Diagnostic testing reviewed by me: Medications reviewed by me Lyndon Gupta, DO Please contact me via [employer] Secure Chat from 7am-7pm After hours please place E-ticket to [facility] This documentation was written in part with the use of [employer] speech to text software. Effort has been done to assure accuracy of boiler welder. Any errors in spelling, syntax, or meaningshould be interpreted in the context of the broader note. Any obvious errors or omissions should beclarified with the author of the document. * Trish Romero RN - 11/23/2023 6:32 AM CDT End of Shift Note: Neuro: Nonverbal No c/o pain. Sz precautions in place Resp: Room air Clear lung sounds Tachypnea CV: SR 80 SBP 100-110 Pulses 2/ Afebrile SQ Lovenox GIGU: Regular Purewick w/AUOP Skin: Abd incision helen CDI. No new skin changes. Q2 turns Lines: 20 L arm * Jessica Angel MD - 11/22/2023 1:22 PM CDT [facility] ([facility] Adult Hospitalist Progress Note Admit Date: 11/13/2023 Date of Note: 11/22/2023, 1:22 PM LOS: 9 days Assessment and Plan: Active Problems: Strep sanguinis bacteremia- CT facial bones without abscess or OM. CT chest revealed opacities in the right middle and lower lobe. CT abdomen with distended gallbladder c/w cholecystitis. Echo without vegetations. Close monitoring of vagal nerve stimulator site for any signs of infection. Continue IV antibiotics with Rocephin while inpt. BC 11/16 NGTD. Transition to po abx cefdinir for 1 week at discharge per ID recs. CRP trending down Acute calculous cholecystitis- s/p open CCK 11/15. TRENT drain removed by surgery today 11/18. Surgery signed off. Follow-up with surgery as outpatient in 2 weeks after dc RSV- symptomatic care. Droplet/contact precautions. Not hypoxic Acute on chronic anemia- rpt H/H today. Monitor. Physical debility- Patient needs manual wheelchair for in home mobility and is unable to ambulate with walker, patient has caregiver that is willing and able to navigate wheelchair. SW consulted ?SOB- CTA negative for PE. Sats are fine on RA. Chronic/Stable/Resolved Problems: Seizure disorder, VNS-refuses medications intermittently. Pt took all his morning meds today also 11/21. 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 Continue Vimpat IV. Hold iv Keppra for now. Hx of frequent breakthrough seizures. Follows with neurology at [facility] Dr. Noble. No need for device check per prior hospitalist's discussion with device rep. Follow up in office with neurology fordevice check. Developmental delay, autism- noted. Minimally verbal. Essential tremor- Inderal if he will take. Clonidine patch. GERD- H2 flora. Family communication: updated mother Mary via telephone today 11/19 and 11/20. Case was discussed with social work staff regarding disposition planning, bedside RN about plan of care. Nutrition: Current Diet and/or Nutritional Supplementation ordered: DIET GENERAL Effective Now DIET SUPPLEMENT GEN ADULT TID; Complete Oral Supplement, Quality/Safety/Core Measures/Disposition Planning: DVT Prophylaxis - Enoxaparin PT POC OT Current Discharge Recommendation: Other (comment in note) (11/22/23 0814) OT POC PT Current Discharge Recommendation: Post acute care;To be determined (11/20/23 4690) Chavez catheter: absent Current Code Status -Full Code Plan discussed with patient, questions answered. Estimated Discharge Day: 11/23/2023 Current Planned Disposition - Dispo: return to snf in 1-2 days. Subjective Previous history of present illness and review of systems have been reviewed today as documented inthe H&P on 11/13/2023; medications, labs, studies, notes, orders and consults have been reviewed. I have reviewed the notes from admission. Overnight no acute overnight events. Nonverbal at baseline Afebrile now Objective BP 104/79 (BP Location: Left arm, Patient Position (BP): Sitting) Pulse 87 Temp 99.1 ??F (37.3 ??C) (Axillary) Resp 29 Ht 5' 7 (1.702 m) Wt 76.1 kg (167 lb 12.8 oz) SpO2 97% BMI 26.28 kg/m?? Temp (24hrs), Av.5 ??F (36.9 ??C), Min:98 ??F (36.7 ??C), Max:99.1 ??F (37.3 ??C) Incontinent large amount stool (11/22/23 0000) Exam: GENERAL: Alert, NAD HEENT: NCAT. EOMI. CARDIOVASCULAR: RRR, no m/r/g PULMONARY: CTAB, no w/r/r ABDOMEN: SNT, Bsx4. No masses or organomegaly, helen RUQ in place NEURO: alert and nonverbal at baseline. Moves all extremities spontaneously. EXTREMITIES: Atraumatic. No pedal edema. Data: I have reviewed all new labs and studies resulted and independently interpreted below. Jessica Angel MD Please contact me via [employer] Secure Chat from 7am-7pm After hours please place E-ticket to [facility] Hospitalist * Jessica Angel MD - 11/21/2023 11:24 AM CDT [facility] ([facility] Adult Hospitalist Progress Note Admit Date: 11/13/2023 Date of Note: 11/21/2023, 11:24 AM LOS: 8 days Assessment and Plan: Active Problems: Strep sanguinis bacteremia- CT facial bones without abscess or OM. CT chest revealed opacities in the right middle and lower lobe. CT abdomen with distended gallbladder c/w cholecystitis. Echo without vegetations. ID following the patient. Close monitoring of vagal nerve stimulator site for any signs of infection. Continue IV antibiotics with Rocephin while inpt. BC 10/6 NGTD. Transition to po abx cefdinir for 1 week at discharge per ID recs. CRP trending down Acute calculous cholecystitis- s/p open CCK 11/15. TRENT drain removed by surgery today 11/18. Surgery signed off. Follow-up with surgery as outpatient in 2 weeks after dc RSV- symptomatic care. Droplet/contact precautions. Not hypoxic Acute on chronic anemia- rpt H/H today. Monitor. Physical debility- Patient needs manual wheelchair for in home mobility and is unable to ambulate with walker, patient has caregiver that is willing and able to navigate wheelchair. SW consulted ?SOB- CTA negative for PE. Sats are fine on RA. Chronic/Stable/Resolved Problems: Seizure disorder, VNS-refuses medications intermittently. Pt took all his morning meds today. 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 Continue Vimpat IV. Hold iv Keppra for now. Hx of frequent breakthrough seizures. This was prior discussed with neurology by prior hospitalist. Follows with neurology at [facility] Dr. Noble. No need for device check per prior hospitalist's discussion withpolly garcia. Follow up in office with neurology for device check. Developmental delay, autism- noted. Minimally verbal. Essential tremor- Inderal if he will take. Clonidine patch. GERD- H2 flora. Family communication: updated mother Mary via telephone today 11/19 and 11/20. Case was discussed with social work staff regarding disposition planning, bedside RN about plan of care. Nutrition: Current Diet and/or Nutritional Supplementation ordered: DIET GENERAL Effective Now DIET SUPPLEMENT GEN ADULT TID; Complete Oral Supplement, Quality/Safety/Core Measures/Disposition Planning: DVT Prophylaxis - Enoxaparin PT POC OT Current Discharge Recommendation: Post acute care (11/20/23 0800) OT POC PT Current Discharge Recommendation: Post acute care;To be determined (11/20/23 1615) Chavez catheter: absent Current Code Status -Full Code Plan discussed with patient, questions answered. Estimated Discharge Day: 11/20/2023 Current Planned Disposition - Dispo: return to snf in 1-2 days. Subjective Previous history of present illness and review of systems have been reviewed today as documented inthe H&P on 11/13/2023; medications, labs, studies, notes, orders and consults have been reviewed. I have reviewed the notes from admission. Overnight no acute overnight events. Nonverbal at baseline RN called for bedside plan of care visit, and discussed about plan of care . Tmax 100.6 over the last 24 hrs Objective BP 105/71 (BP Location: Left arm, Patient Position (BP): Lying left side) Pulse 85 Temp 98.5 ??F (36.9 ??C) (Axillary) Resp 26 Ht 5' 7 (1.702 m) Wt 76.1 kg (167 lb 12.8 oz) SpO2 97% BMI 26.28 kg/m?? Temp (24hrs), Av.4 ??F (37.4 ??C), Min:98.1 ??F (36.7 ??C), Max:100.6 ??F (38.1 ??C) Incontinent large amount stool (11/20/23 1651) Exam: GENERAL: Alert, NAD HEENT: NCAT. EOMI. CARDIOVASCULAR: RRR, no m/r/g PULMONARY: CTAB, no w/r/r ABDOMEN: SNT, Bsx4. No masses or organomegaly, helen RUQ in place NEURO: alert and nonverbal at baseline. Moves all extremities spontaneously. EXTREMITIES: Atraumatic. No pedal edema. Data: I have reviewed all new labs and studies resulted and independently interpreted below. Jessica Angel MD Please contact me via [employer] Secure Chat from 7am-7pm After hours please place E-ticket to [facility] Hospitalist * Glenna Gray GN - 11/20/2023 7:09 PM CDT End of Shift Note: Patient refused PO medications ~ 1300 (buspirone 10mg, lacosamide 200mg, and lamotrigine 150mg). Provider notified. Neuro: Patient nonverbal. Flacc scale used to assess pain, toradol given per MAR. Resp: RA. CV: SR-ST 90-100s. SBP 100-130s. 2/2 pulses. GI: Suppository given per APR. BM this shift. Decreased oral intake. : Purewick in place. Skin: No acute skin changes this shift. Procedures/Labs/Diagnostic Tests: ABG collected this shift. * Cate Cartagena, RD - 11/20/2023 1:18 PM CDT Images from the original note were not included. CLINICAL DIETITIAN PROGRESS NOTE [facility] Nutrition Risk Screen for LOS with decreased PO intake. 38 y.o. male with PMHx of Intellectual disability with increased work of breathing. Now with RSV. He also was found on imaging to have possible cholecystitis. Pt is non verbal. Food and Nutrition Related History: PO intake 10-20% of meals, pt seen asleep with lunch tray. Will add 10 oz shakes & Ensure - variety of flavors to help with PO intake. Noted wt loss 5% x 6 mos. Will follow PO intake and wt trends. -Assist & encouraged high protein foods q meals to aid with healing and recovery. Assessment: Recent Labs 11/18/23 0435 11/19/23 0610 11/20/23 0338 GLUCOSE 164* 104* 117* BUN 6 8 11 CREAT 0.55* 0.61* 0.60* GFR >60 >60 >60 NA 139 139 140 K 3.9 3.9 3.9 CL 108* 108* 105 CO2 21* 22 23 ANIONGAP 10 9 12 CA 8.2* 8.4* 8.5* ALBUMIN 3.3* 3.1* 3.1* ALKPHOS 110 161* 213* ALT 35 31 28 AST 39 27 24 BILITOTAL 0.3 0.4 0.4 No results found for: HGBA1C , [id number] Pert Meds:noted Skin: See Flowsheet for more wound documentation Star Score: 13 (11/20/23 0925) Anthropometrics: Height: 5' 7 (170.2 cm) (11/14/23311) Weight: 76.1 kg (167 lb 12.8 oz) (11/14/23311) Body mass index is 26.28 kg/m??. [place] body weight: 66.1 kg (145 lb 11.6 oz) Adjusted ideal body weight: 70.1 kg (154 lb 8.9 oz) Admit weight: Weight: 76.1 kg (167 lb 12.8 oz) (11/14/23311) Wt Readings from Last 10 Encounters: 11/14/23 76.1 kg (167 lb 12.8 oz) 06/06/23 79.4 kg (175 lb) 04/19/23 79.7 kg (175 lb 9.6 oz) 08/08/22 83.5 kg (184 lb) 02/10/22 86.5 kg (190 lb 11.2 oz) 02/13/21 74.4 kg (164 lb) 12/11/17 83.9 kg (185 lb) 07/09/17 85.3 kg (188 lb) 07/07/17 85.3 kg (188 lb) 12/06/16 86.2 kg (190 lb) Last seven weights (if available) from 10/23/23 1450 to 11/20/23 1449 (Last 7 readings): Weight Weight Method 11/14/23311 76.1 kg (167 lb 12.8 oz) Actual 11/13/23 1804 79.4 kg (175 lb) -- Nutrition Prescription: DIET GENERAL Effective Now DIET SUPPLEMENT GEN ADULT TID; Complete Oral Supplement, Food/Meal: Breakfast (11/20/23 0800) Diet/Feeding Tolerance: fair (11/20/23 0338) Nutrition intake is meeting less than 50% of recommended nutritional needs Food Allergies: No known food allergies D: Inadequate oral intake, Risk of malnutrition r/t oral/esophageal/GI motility changes as evidenced by inadequate nutrient intake compared to estimated or measure nutrient requirements Nutrition Needs: 25-30 kcal/ kg= 3494-4018 kcal Pro:1.1-1.1 g/kg= 85-91 g Normal fluids: 1 ml/kcal I:Nutrition Intervention: DIET GENERAL Effective Now DIET SUPPLEMENT GEN ADULT TID; Complete Oral Supplement, Goal: improved PO intake Time spent: 15 minutes M/E: 1. Continue to monitor: Anthropometrics, Digestive, Skin, and Biochemical data 2. Follow up every 4-7 days and as needed. Samantha Cartagena RD LD Cell phone [phone] Office phone: [phone] Secure chat * Rachael Valadez GN - 11/20/2023 8:14 AM CDT End of Shift Note: Pt intermittently refused meds. See MAR for refused meds. Pt has a poor diet, he refused his dinner. Gave him jello and applesauce, he only took a bite from each with a few sips from apple juice Neuro: Pt non verbal A/Ox0 Resp: Pt on room air CV: Pt was tachycardic overnight, no signs of pain using behavioral pain scale * Jessica Angel MD - 11/20/2023 7:26 AM CDT [facility] Adult Hospitalist Progress Note Admit Date: 11/13/2023 Date of Note: 11/20/2023, 7:26 AM LOS: 7 days Assessment and Plan: Active Problems: Strep sanguinis bacteremia- ID following. CT facial bones without abscess or OM. CT chest revealed opacities in the right middle and lower lobe. CT abdomen with distended gallbladder c/w cholecystitis. Echo without vegetations. ID following the patient. Close monitoring of vagal nerve stimulator site for any signs of infection. Continue IV antibiotics with Rocephin. BC 11/16 NGTD. Transition to po abx cefdinir for 1 week at discharge per ID recs. CRP trending down Acute calculous cholecystitis- s/p open CCK 11/15. TRENT drain removed by surgery today 11/18. Surgery signed off. Follow-up with surgery as outpatient in 2 weeks after dc RSV- symptomatic care. Droplet/contact precautions. Not hypoxic Chronic/Stable/Resolved Problems: Seizure disorder, VNS-refuses medications intermittently. 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 Continue Vimpat IV. iv Keppra added this admission until reliably taking meds, as there is a history of frequent breakthrough seizures. This was prior discussed with neurology by prior kathryn alvarengatalvanessa. Follows with neurology at [facility] Dr. Noble. No need for device check per prior hospitalist's discussion with device rep. Follow up in office with neurology for device check. Developmental delay, autism- noted. Minimally verbal. Essential tremor- Inderal if he will take. Clonidine patch. GERD- H2 flora. Family communication: updated mother Mary via telephone today 11/19. Mother is concerned about patient's shortness of breath at times. Will repeat chest x-ray today. Case was discussed with social work staff regarding disposition planning, bedside RN about plan of care. Nutrition: Current Diet and/or Nutritional Supplementation ordered: DIET GENERAL Effective Now Quality/Safety/Core Measures/Disposition Planning: DVT Prophylaxis - Enoxaparin PT POC OT Current Discharge Recommendation: Post acute care (11/19/23 1400) OT POC PT Current Discharge Recommendation: Post acute care;Will tolerate 3 hours of therapy (11/17/23 1439) Chavez catheter: absent Current Code Status -Full Code Plan discussed with patient, questions answered. Estimated Discharge Day: 11/20/2023 Current Planned Disposition - Dispo: pending therapy recs- ?SNF prior to returning to snf. Subjective Previous history of present illness and review of systems have been reviewed today as documented inthe H&P on 11/13/2023; medications, labs, studies, notes, orders and consults have been reviewed. I have reviewed the notes from admission. Overnight no acute overnight events. Patient not answering the questions. Not at his baseline per mother and per staff at the snf. RN called for bedside plan of care visit, and discussed about plan of care . Objective BP 131/73 (BP Location: Right leg, Patient Position (BP): Supine) Pulse (!) 101 Temp 99.6 ??F (37.6 ??C) (Axillary) Resp (!) 31 Ht 5' 7 (1.702 m) Wt 76.1 kg (167 lb 12.8 oz) SpO2 93% BMI 26.28 kg/m?? Temp (24hrs), Av.4 ??F (37.4 ??C), Min:98.9 ??F (37.2 ??C), Max:99.7 ??F (37.6 ??C) Small amount stool (11/15/23 1700) Exam: GENERAL: Alert, NAD HEENT: NCAT. EOMI. CARDIOVASCULAR: RRR, no m/r/g PULMONARY: CTAB, no w/r/r ABDOMEN: SNT, Bsx4. No masses or organomegaly, NEURO: Moves all extremities spontaneously. Nonverbal. EXTREMITIES: Atraumatic. No pedal edema. Data: I have reviewed all new labs and studies resulted and independently interpreted below. Jessica Angel MD Please contact me via [employer] Secure Chat from 7am-7pm After hours please place E-ticket to [facility] * Glenna Gray GN - 11/19/2023 8:08 PM CDT End of Shift Note: Patient refused PO medications ~ 1930pm (lamotrigine 300mg, zonisamide 400mg, buspirone 10mg). tool pusher RN notified to see if patient will take later this night. Neuro: Nonverbal. FLACC scale used to assess pain. Resp: RA. CV: SR-ST 70-100s.SBP 120-130s. 2/2 pulses. Temperature 99s F. GI: No BM this shift. Diet changed to general diet. : Purewick in place. Skin: Right TRENT drain removed by provider this shift. Abdominal dressings removed by provider, abdominal helen open to air. * Evelio Miller MD - 11/19/2023 11:54 AM CDT Infectious Diseases Progress Note Date of service: 11/19/2023,11:54 AM Admit Date: 11/13/2023 LOS: 6 days Current antimicrobials/duration: Rocephin Subjective-24 hr events: Doing well. No concerning fever Objective: Patient Vitals for the past 24 hrs: BP Temp Temp src Pulse Resp SpO2 11/19/23 1100 133/86 99.5 ??F (37.5 ??C) Axillary -- -- -- 11/19/23 0800 -- 99.7 ??F (37.6 ??C) Axillary -- -- -- 11/19/23 0600 -- -- -- 88 27 94 % 11/19/23 0400 129/71 99.9 ??F (37.7 ??C) Axillary 80 15 93 % 11/19/23 0129 -- -- -- 89 10 92 % 11/19/23 0000 112/71 100 ??F (37.8 ??C) Axillary 88 26 94 % 11/18/23 2354 113/65 98.9 ??F (37.2 ??C) Axillary 84 26 95 % 11/18/23 2019 -- 99 ??F (37.2 ??C) Axillary 88 30 96 % 11/18/23 2000 (!) 149/92 -- -- -- 27 96 % 11/18/23 1800 -- 100.3 ??F (37.9 ??C) -- -- -- -- 11/18/23 1636 -- 98.6 ??F (37 ??C) Axillary -- -- -- 11/18/23 1600 -- 99.7 ??F (37.6 ??C) Axillary -- -- -- Intake/Output Summary (Last 24 hours) at 11/19/2023 1154 Last data filed at 11/19/2023 1037 Gross per 24 hour Intake 288.82 ml Output 1736 ml Net -1447.18 ml Physical Exam: General Appearance: awake, appears comfortable HEENT: no icterus Heart:RRR Chest: CTA Abdomen: soft, dressings intact Extremities: no edema Results for orders placed or performed during the hospital encounter of 11/13/23 (from the past 24 hour(s)) URINALYSIS WITH REFLEX MICROSCOPIC Result Value Ref Range COLOR UA Yellow Pale to Dark Yellow CLARITY UA Clear Clear SPECIFIC GRAVITY UA 1.025 1.003 - 1.035 PH UA 7.0 5.0 - 8.0 LEUKOCYTE ESTERASE UA Negative Negative NITRITE UA Negative Negative PROTEIN UA 1+ (A) Negative GLUCOSE UA Negative Negative KETONES UA Negative Negative UROBILINOGEN UA 0.2 <2.0 mg/dL BILIRUBIN UA Negative Negative BLOOD UA 1+ (A) Negative WBC UA 3-5 (A) 0 - 2 /hpf RBC UA 0-2 0 - 2 /hpf BACTERIA UA 1+ (A) Negative /hpf COMPREHENSIVE METABOLIC PANEL Result Value Ref Range SODIUM 139 136 - 145 mmol/L POTASSIUM 3.9 3.5 - 5.0 mmol/L CHLORIDE 108 (H) 98 - 107 mmol/L CO2 22 22 - 29 mmol/L CALCIUM 8.4 (L) 8.6 - 10.2 mg/dL BUN 8 6 - 20 mg/dL CREATININE 0.61 (L) 0.67 - 1.17 mg/dL GLUCOSE 104 (H) 74 - 99 mg/dL TOTAL PROTEIN 5.9 (L) 6.7 - 8.6 g/dL ALBUMIN 3.1 (L) 3.5 - 5.2 g/dL BILIRUBIN TOTAL 0.4 0.3 - 1.2 mg/dL ALKALINE PHOSPHATASE 161 (H) 40 - 129 U/L AST 27 <41 U/L ALT 31 <42 U/L GFR >60 >=60 mL/min/1.73 sq meter ANION GAP 9 8 - 16 mmol/L CBC WITH DIFFERENTIAL Result Value Ref Range WBC 10.9 (H) 4.0 - 9.8 K/uL RBC 2.73 (L) 4.50 - 5.40 M/uL HEMOGLOBIN 8.6 (L) 13.6 - 16.5 g/dL HEMATOCRIT 25.7 (L) 40.0 - 48.0 % MCV 94.1 82.0 - 99.0 fL MCH 31.5 27.2 - 32.6 pg MCHC 33.5 31.5 - 35.5 g/dL RDW 12.9 11.5 - 14.5 % RDW-STDEV 44.0 37.1 - 48.7 fL PLATELETS 304 140 - 350 K/uL MPV 9.2 (L) 9.3 - 12.4 fL NEUTROPHILS 67 % LYMPHOCYTES 16 % MONOCYTES 12 % EOSINOPHILS 3 % BASOPHILS 1 % IMMATURE GRANULOCYTES 2 % NEUTROPHIL ABSOLUTE 7.33 (H) 1.90 - 7.00 K/uL LYMPHOCYTE ABSOLUTE 1.71 0.70 - 4.50 K/uL MONOCYTE ABSOLUTE 1.26 0.10 - 1.30 K/uL EOSINOPHIL ABSOLUTE 0.35 0.00 - 0.70 K/uL BASOPHILS ABSOLUTE 0.05 0.00 - 0.20 K/uL IMMATURE GRANULOCYTES ABSOLUTE 0.21 (H) 0.00 - 0.03 K/uL Estimated Creatinine Clearance: 155 mL/min (A) (by C-G formula based on SCr of 0.61 mg/dL (L)). Assessment: RSV infection Acute acalculous cholecystitis S/P cholecystectomy Strep sanguinis bacteremia Echo without vegetations CT facial bones with no abscess or osteomyelitis History of penicillin allergy Plan: Continue same treatment. Noted repeat blood cultures are negative at 48 hours No objection to discharge in AM, if stable, on PO Cefdinir for 1 week Follow-up after discharge: Evelio Miller MD, FACP, [facility] Infectious Diseases Office Exchange: [phone] * Ronaldo Mendoza DO - 11/19/2023 10:46 AM CDT TACS Attending: S/E at bedside. No nausea/vomiting since yesterday. No objective signs of distress at this time. JPserosang. Abdomen benign. Dressings removed, incisions clear/dry/intact. AVSS, baseline mental status, no distress NCAT, MMM RRR CTAB Soft, subcostal incision c/d/I with helen, TRENT serosang (removed), umbilical incision healing well -c/c/e WPD 38M s/p lap converted to open cholecystectomy General diet TRENT removed, site dressed OK for other incisions to be covered with dry gauze or open to air No antibiotic need from general surgery. Defer to 1' given patient's bacteremia Cleared for discharge from surgery standpoint. DC instructions and followup information placed in DC navigator. Will sign off. For routine needs, contact the TACS team signed onto the patient's care team. For urgent needs: TACS Consult Pager: [phone] TACS Trauma Emergency: [phone] (STAB) [facility] General Surgery Emergency: [phone] (GALL) Ronaldo Mendoza DO, MPH Trauma & Acute Care Surgery Attending * Pau Melendrez DO - 11/19/2023 10:35 AM CDT [facility] (Former[facility]) Adult Hospitalist Progress Note Admit Date: 11/13/2023 Date of Note: 11/19/2023, 10:35 AM LOS: 6 days Assessment and Plan: Active Problems: Strep sanguinis bacteremia- ?GB source. CT facial bones without abscess/OM. TTE without vegetations. Continue Rocephin. ID consulted, appreciate recommendations. BC 11/16 NGTD. Acute calculous cholecystitis- s/p open CCK 11/15. General surgery following, appreciate recommendations. TRENT drain removed by surgery today. RSV- symptomatic care. Droplet/contact precautions. 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 Continue Vimpat IV, added Keppra until reliably taking meds, as there is a history of frequent breakthrough seizures. This was prior discussed with neurology by prior hospitalist. Follows with neurology at [facility] Dr. Noble. No need for device check per prior hospitalist's discussion with device rep. Follow up in office with neurology for device check. Developmental delay, autism- noted. Minimally verbal. Essential tremor- Inderal if he will take. Clonidine patch. GERD- H2 flora. Family communication: updated mother Mary via telephone. Case was discussed with social work staff regarding disposition planning, bedside RN about plan of care. Nutrition: Current Diet and/or Nutritional Supplementation ordered: DIET GENERAL Effective Now Quality/Safety/Core Measures/Disposition Planning: DVT Prophylaxis - Enoxaparin PT POC OT Current Discharge Recommendation: Post acute care (11/18/23 0777) OT POC PT Current Discharge Recommendation: Post acute care;Will tolerate 3 hours of therapy (11/17/23 1439) Chavez catheter: absent Current Code Status -Full Code Plan discussed with patient, questions answered. Estimated Discharge Day: 11/21/2023 Current Planned Disposition - Dispo: pending therapy recs- ?SNF prior to returning to snf. Subjective Previous history of present illness and review of systems have been reviewed today as documented inthe H&P on 11/13/2023; medications, labs, studies, notes, orders and consults have been reviewed. I have reviewed the notes from admission. Overnight no acute overnight events. Unable to answer questions this AM RN called for bedside plan of care visit, no answer. Objective BP 129/71 Pulse 88 Temp 99.7 ??F (37.6 ??C) (Axillary) Resp 27 Ht 5' 7 (1.702 m) Wt 76.1kg (167 lb 12.8 oz) SpO2 94% BMI 26.28 kg/m?? Temp (24hrs), Av.5 ??F (37.5 ??C), Min:98.6 ??F (37 ??C), Max:100.3 ??F (37.9 ??C) Small amount stool (11/15/23 1700) Exam: GENERAL: Alert, nor oriented, NAD HEENT: NCAT. EOMI. Oral mucosa moist. CARDIOVASCULAR: RRR, no m/r/g PULMONARY: CTAB, no w/r/r ABDOMEN: SNT, Bsx4. No masses or organomegaly NEURO: No focal deficits. Moves all extremities spontaneously. Minimally verbal. EXTREMITIES: Atraumatic. No pedal edema. Data: I have reviewed all new labs and studies resulted and independently interpreted below. Pau Melendrez DO Please contact me via [employer] Secure Chat from 7am-7pm After hours please place [facility] * Yanci De La Rosa, RN - 11/19/2023 7:42 AM CDT 0700 - Hospitalist notified that pt refusing po medications this am including anti-seizure medications - lamotrigine, propanolol, zonisamide - as well as colace, multivitamin (centrum silver). and buspar. Day shift RN notified. Due time of medications moved to 0800 in agreement with day shift RN Glenna. Glenna RN will see if family arrives soon to assist in pt compliance with po medications. * Jim Deras NP - 11/18/2023 2:37 PM CDT Images from the original note were not included. DATE: 11/18/2023 NAME: Curt Beebe : 1985 CSN: [id number] [facility] General Surgery Progress Note Last 24 hours: - No acute events overnight - Started on clear liquid diet today - Resting comfortably in bed, sitter remains at bs ASSESSMENT/PLAN: 38 y.o. male presenting with increased work of breathing and tachypnea, found to have RSV, and Strep viridans bacteremia and elevated CRP. HIDA is suggestive for an acute cholecystitis. Operations/Procedures Course: -11/16/23: Laparoscopic converted to open cholecystectomy (Chandra) Problem List: # Incidentally found inflamed/distended gallbladder # RUQ tenderness to palpation - Patient having RUQ tenderness on examination - HIDA positive for acute acute cholecystitis. - s/p open cholecystectomy for acute calculous cholecystitis. - Continue clear liquids - advance diet as tolerated. - Watch TRENT output, possibly DC tomorrow 11/18 - Continue antibiotics per ID recommendation - Rest of care per primary # RSV #Bacteremia - Per primary # History of Mental Disability # Malnutrition?: No (if yes, add MELISSASPCMSulaiman dot phrase here) Nutritional status: Current Diet and/or Nutritional Supplementation ordered: DIET CLEAR LIQUID Jim Deras, REPAIR TECH, 11/18/2023 2:37 PM For routine needs from 7am-7pm, contact the [facility] team signed onto the patient's care team via secure chat. For urgent needs: [facility] Pager: [phone] [facility] Trauma Emergency Phone: (1STAB) [facility] General Emergency Phone: (1GALL) Admit Date: 11/13/2023 LOS: 0 days Active Hospital Problems Diagnosis Streptococcal bacteremia History of penicillin allergy Acute acalculous cholecystitis Leukocytosis (leucocytosis) Febrile RSV infection Cholecystitis RSV (acute bronchiolitis due to respiratory syncytial virus) Seizure disorder, complex partial, with intractable epilepsy Development delay Resolved Hospital Problems No resolved problems to display. 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 Pt is non-verbalat baseline. HPI: Curt Beebe is a 38 y.o. male with a PMH of autisum, ADHD, static encephalopathy, nonverbal at baseline who is presenting with fevers and leukocytosis. Caregiver said patient had been acting differently the last few days and was not eating today. Lives [facility]. Nonverbal at baseline. David gil consulted when CT remarkable for cholecystitis Scheduled Medications: cefTRIAXone, 2,000 mg, every 24 hours (daily) levETIRAcetam, 1,000 mg, BID cloNIDine, 1 Patch, every 7 days lamoTRIgine, 300 mg, BID propranoloL, 160 mg, daily docusate sodium, 100 mg, BID [Held by Provider] lacosamide, 200 mg, BID busPIRone, 10 mg, TID ergocalciferol, 50,000 Units, every 7 days multivitamin with ydtudhvd-tlvlvinu-fipobw, 1 Tablet, daily [Held by Provider] cloNIDine HCL, 0.3 mg, daily LATE Zonisamide, 400 mg, BID cloBAZam, 40 mg, daily BEDTIME famotidine, 20 mg, BID lamoTRIgine, 150 mg, daily AFTER lunch naloxone, 0.1 mg, see admin instructions LORazepam, , LORazepam, 1 mg, ONE time only enoxaparin, 40 mg, every 24 hours lacosamide, 200 mg, every 12 hours IV Medications: potassium Cl in dextrose 5% - NaCl 0.9% 1,000 mL, Last Rate: 75 mL/hr at 11/18/23 0813 PRN Medications: ibuprofen, 400 mg, every 6 hours PRN bisacodyL, 10 mg, daily PRN magnesium hydroxide, 30 mL, daily PRN diphenhydrAMINE, 25 mg, every 6 hours PRN hydrOXYzine HCL, 25 mg, TID PRN aluminum - magnesium - simethicone, 30 mL, every 2 hours PRN HYDROcodone-acetaminophen, 1 Tablet, every 4 hours PRN morphine, 2 mg, every 4 hours PRN LORazepam, , LORazepam, 1 mg, every 6 hours PRN ondansetron, 4 mg, every 6 hours PRN prochlorperazine, 5 mg, every 6 hours PRN acetaminophen, 650 mg, every 6 hours PRN OBJECTIVE: BP 135/81 (BP Location: Left arm, Patient Position (BP): Supine) Pulse 80 Temp 99.6 ??F (37.6 ??C) (Axillary) Resp 24 Ht 5' 7 (1.702 m) Wt 76.1 kg (167 lb 12.8 oz) SpO2 99% BMI 26.28 kg/m?? BP Min: 130/85 Max: 142/89 Temp Av.7 ??F (37.6 ??C) Min: 99.1 ??F (37.3 ??C) Max: 100.4 ??F (38 ??C) Pulse Av.4 Min: 65 Max: 82 Resp Av Min: 23 Max: 35 SpO2 Av.3 % Min: 95 % Max: 99 % Intake/Output Summary (Last 24 hours) at 11/18/2023 1437 Last data filed at 11/18/2023 1400 Gross per 24 hour Intake 30 ml Output 2533 ml Net -2503 ml Output by Drain (mL) 11/16/23 0700 - 11/16/23185811/16/231899 - 11/17/23 0659 11/17/23699 - 11/17/23 18511/17/231899 - 11/18/23 0659 11/18/23 07 - 11/18/23 1437 Drain/Device Site 11/16/23 1752 #1 Right: abdomen channel 80 50 20 Small amount stool (11/15/23 1700) Physical Exam: Gen Alert, in no distress, sitting up in bed, no family at bs Neuro Eyes open, nonverbal, YOUNG HEENT Normal Heart regular rate Lungs normal respiratory effort Abdomen Soft, mildly distended, incision with intact dressing. TRENT drain with serosanguinous output. Extremities no edema, redness or tenderness in the calves or thighs Skin Skin color, texture, turgor normal. No rashes or lesions Other PIV Labs/Imaging: Most recent CBC results: Recent Labs 11/16/23 2359 11/17/23 0455 11/18/23 0435 WBC 7.2 8.3 11.1* HGB 8.4* 8.7* 9.3* HCT 24.2* 25.3* 28.4* PLT 205 243 338 Most recent BMP results: Recent Labs 11/16/23 0353 11/17/23 0503 11/18/23 0435 NA 142 141 139 K 3.5 3.8 3.9 CL 110* 111* 108* CO2 21* 22 21* BUN 11 7 6 CREAT 0.65* 0.62* 0.55* GLUCOSE 122* 167* 164* CA 8.8 7.9* 8.2* MG -- 1.8 -- PO4 -- 2.3* -- Most recent LFT results: Recent Labs 11/16/23 0353 11/17/23 0503 11/18/23 0435 TOTALPROTEIN 6.7 5.5* 5.8* ALBUMIN 3.3* 3.2* 3.3* BILITOTAL 0.5 0.3 0.3 ALKPHOS 182* 266* 110 AST 14 69* 39 ALT 14 41 35 Most recent Coagulation results: No results for input(s): PT , INR in the last 72 hours. Invalid input(s): PTT Most recent ABG results: No results for input(s): PH , PHARTERIAL , PCO2 , JNQ1EFD , PO2 , PO2ART , HCO3 , LKI8XEN , BASEEXCESS , SO2 , PUNCSITE in the last 72 hours. Most recent Accucheck results: Lab Results Component Value Date GLUCPOC 106 (H) 06/13/2023 GLUCPOC 105 (H) 06/06/2023 GLUCPOC 89 04/19/2023 GLUCPOC 159 (H) 02/14/2021 GLUCPOC 148 (H) 02/14/2021 I personally reviewed all images. Jim Deras, AMADA Associated attestation - Ronaldo Mendoza DO - 11/18/2023 6:10 PM CDT S/E at bedside, agree with REPAIR TECH note. Postop, incision c/d/I. Some vomiting earlier today. Resting comfortably, TRENT serous with possibly slight bilious tinge. Keep on clears for today, if no vomiting overnight then will advance diet tomorrow. If TRENT continues to appear bilious, may need HIDA, but patient's mental status may preclude that particular study being done easily. Will re-eval based on drain volume and character tomorrow Remainder per 1'. For routine needs, contact the [facility] team signed onto the patient's care team. For urgent needs: [facility] Consult Pager: [phone] [facility] Trauma Emergency: [phone] (STAB) [facility] General Surgery Emergency: [phone] (GALL) Ronaldo Mendoza DO, MPH Trauma & Acute Care Surgery Attending * Kanika Feliz GN - 11/18/2023 11:22 AM CDT Neuro: Nonverbal, Utilized FLACC to asses pain. Resp: RA CV: HR 60-80; BP 120-140's GI/: Clear liquid diet. Male Purewick. Bladder Scan 130ml at 1700. 1 emesis episode. Skin: Abdominal Incision w/Island dressing. TRENT drain with sanguineous output. * Jim Nguyen MD - 11/18/2023 8:49 AM CDT [facility] Adult Hospitalist Progress Note Admit Date: 11/13/2023 Date of Note: 11/18/2023, 8:49 AM LOS: 0 days Previous history of present illness and review of systems have been reviewed today as documented inthe H&P on 11/13/2023; medications, labs, studies, notes, orders and consults have been reviewed. I have reviewed the notes from admission. Subjective: Nonverbal, no high fever past 2+ days, tolerated clears yest, no reported overnight events, taking pills reasonably well Objective: BP 130/85 (BP Location: Left arm, Patient Position (BP): Supine) Pulse 80 Temp 99.1 ??F (37.3 ??C) (Axillary) Resp 24 Ht 5' 7 (1.702 m) Wt 76.1 kg (167 lb 12.8 oz) SpO2 99% BMI 26.28 kg/m?? Temp (24hrs), Av.7 ??F (37.6 ??C), Min:99.1 ??F (37.3 ??C), Max:100.4 ??F (38 ??C) Small amount stool (11/15/23 1700) Exam: Gen Awake alert, nonverbal, noncooperative, no distress, appears stated age, unable to follow commands Lungs clear to auscultation bilaterally Heart regular rhythm, tachy rate, S1, S2 normal Abdomen soft, suspect mild postop RUQ TTP, Bowel sounds normal. No masses, No organomegaly, no guard/rebound Ext no cyanosis or edema Data Base: I have reviewed all new labs and studies resulted and pertinent ones are noted below. Assessment/Plan of Actively Managed Problems Strep viridans-sanguinis bacteremia/Fever: CRP 300=> 146. CXR ?infiltrate. Appreciate Dr Paul COOMBS assistance. ?GB origin. CT face/sinuses benign. TTE benign. Repeat blood cult 11/16 pending NGTD. Cont IV ceftriaxone. Calculous cholecystitis: S/P lap converted to open cholecystectomy 11/[address] Artis. Now on clears. N/V: Likely from cholecystitis. Moving bowels. CT neg for obs. Cont IVF and prn nausea meds. Appears resolved RSV - supportive care. Droplet precautions. This is not the cause of his illness Seizure disorder - continue on home medications. Changed vimpat to IV and added keppra IV after discussion with Neuroogy due to N/V limiting PO meds at times. Pt has freq breakthrough seizures even on 4 meds and has implanted L chest VagalNerveStimulator as well. Stop keppra once reliably taking seizure meds Developmental delay/Autism: Minimally verbal Tremor: Cont inderal. Changed PO clonidine to patch for now Anti-Seizure VNS: Anesth Dr Velazco spoke with pt's Neuro at [facility] Dr Noble who indicated that no follow up needed to verify VNS function post op. I spoke with the device company [employer] who indicatedno specific interrogation is conducted by them and they advise to follow up with pt's Neurologist to ensure device function Nutrition: Current Diet and/or Nutritional Supplementation ordered: DIET CLEAR LIQUID DVT Prophylaxis - Enoxaparin Chavez catheter:absent Lines: Peripheral IV PT/OT:yes Current Code Status -Full Code Plan discussed with patient,Mom Current Planned Disposition - TBD, lives [facility] ?if will need SNF short term >35 minutes spent in patient care today > 50 %time spent in coordinating care communicating with nursing staff, social work. Jim Nguyen MD * Mark ArevaloWESTLEY - 11/18/2023 6:50 AM CDT End of Shift Note: Pt resting in bed w/ bed alarm on. No concerns or complaints noted. Neuro: Pt nonverbal, ISMAEL. Pain assessment FLACC scale utilized. Two episodes of emesis. Given PRN antiemetic. Resp: RA. CV: NSR 60s-80s. BP 120s-140s sys. Low grade fever, Tylenol administered PRN. GI: Clear liquid diet. Last BM 11/16/23. Chavez cath in place. Chavez care performed. Clear, yellow output noted. Skin: Surgical abdominal incision w/ island drsg WDL. TRENT drain w/ drsg WDL and sanguineous output noted. * Evelio Miller MD - 11/17/2023 2:44 PM CDT Infectious Diseases Progress Note Date of service: 11/17/2023,2:44 PM Admit Date: 11/13/2023 LOS: 0 days Current antimicrobials/duration: Rocephin Subjective-24 hr events: Underwent open cholecystectomy yesterday. Doing well post-op. Low grade fever Objective: Patient Vitals for the past 24 hrs: BP Temp Temp src Pulse Resp SpO2 11/17/23 1113 126/89 99.8 ??F (37.7 ??C) Axillary 90 21 93 % 11/17/23 0844 132/78 -- -- 94 -- -- 11/17/23 0732 139/82 100.1 ??F (37.8 ??C) Axillary -- 21 -- 11/17/23 0600 -- -- -- 89 20 91 % 11/17/23 0500 -- -- -- 92 22 95 % 11/17/23 0400 130/76 -- -- 94 (!) 32 92 % 11/17/23 0336 135/70 99.5 ??F (37.5 ??C) Axillary 98 30 97 % 11/17/23 0300 136/79 -- -- 88 25 99 % 11/17/23 0200 -- -- -- 96 26 94 % 11/17/23 0100 -- -- -- 99 20 94 % 11/17/23 0000 127/82 -- -- (!) 102 29 98 % 11/16/23 2344 127/70 98.3 ??F (36.8 ??C) Axillary 94 24 92 % 11/16/23 2300 -- -- -- 95 24 100 % 11/16/23 2245 123/75 98.9 ??F (37.2 ??C) Axillary (!) 112 27 92 % 11/16/23 2159 138/77 98.8 ??F (37.1 ??C) Oral (!) 103 21 97 % 11/16/23 2130 (!) 143/72 98.1 ??F (36.7 ??C) Temporal (!) 101 20 97 % 11/16/232114 (!) 145/81 -- -- 95 20 97 % 11/16/232099 136/73 -- -- 93 19 97 % 11/16/232044 (!) 144/73 -- -- 98 20 97 % 11/16/232029 (!) 155/79 -- -- 99 23 97 % 11/16/232024 (!) 152/77 -- -- (!) 102 20 92 % 11/16/232014 (!) 145/84 -- -- (!) 103 26 (!) 65 % 11/16/232007 133/72 98.1 ??F (36.7 ??C) Temporal (!) 104 24 96 % Intake/Output Summary (Last 24 hours) at 11/17/2023 1444 Last data filed at 11/17/2023 1300 Gross per 24 hour Intake 3554.57 ml Output 2845 ml Net 709.57 ml Physical Exam: General Appearance: arouses to touch HEENT: no icterus Heart:RRR Chest: CTA Abdomen: soft, dressings intact Extremities: no edema Results for orders placed or performed during the hospital encounter of 11/13/23 (from the past 24 hour(s)) CBC WITH DIFFERENTIAL Result Value Ref Range WBC 7.2 4.0 - 9.8 K/uL RBC 2.60 (L) 4.50 - 5.40 M/uL HEMOGLOBIN 8.4 (L) 13.6 - 16.5 g/dL HEMATOCRIT 24.2 (L) 40.0 - 48.0 % MCV 93.1 82.0 - 99.0 fL MCH 32.3 27.2 - 32.6 pg MCHC 34.7 31.5 - 35.5 g/dL RDW 13.0 11.5 - 14.5 % RDW-STDEV 44.3 37.1 - 48.7 fL PLATELETS 205 140 - 350 K/uL MPV 8.9 (L) 9.3 - 12.4 fL NEUTROPHILS 85 % LYMPHOCYTES 6 % MONOCYTES 9 % EOSINOPHILS 0 % BASOPHILS 0 % IMMATURE GRANULOCYTES 1 % NEUTROPHIL ABSOLUTE 6.07 1.90 - 7.00 K/uL LYMPHOCYTE ABSOLUTE 0.40 (L) 0.70 - 4.50 K/uL MONOCYTE ABSOLUTE 0.62 0.10 - 1.30 K/uL EOSINOPHIL ABSOLUTE 0.01 0.00 - 0.70 K/uL BASOPHILS ABSOLUTE 0.01 0.00 - 0.20 K/uL IMMATURE GRANULOCYTES ABSOLUTE 0.04 (H) 0.00 - 0.03 K/uL CBC WITH DIFFERENTIAL Result Value Ref Range WBC 8.3 4.0 - 9.8 K/uL RBC 2.73 (L) 4.50 - 5.40 M/uL HEMOGLOBIN 8.7 (L) 13.6 - 16.5 g/dL HEMATOCRIT 25.3 (L) 40.0 - 48.0 % MCV 92.7 82.0 - 99.0 fL MCH 31.9 27.2 - 32.6 pg MCHC 34.4 31.5 - 35.5 g/dL RDW 13.0 11.5 - 14.5 % RDW-STDEV 43.6 37.1 - 48.7 fL PLATELETS 243 140 - 350 K/uL MPV 9.0 (L) 9.3 - 12.4 fL NEUTROPHILS 78 % LYMPHOCYTES 10 % MONOCYTES 12 % EOSINOPHILS 0 % BASOPHILS 0 % IMMATURE GRANULOCYTES 1 % NEUTROPHIL ABSOLUTE 6.44 1.90 - 7.00 K/uL LYMPHOCYTE ABSOLUTE 0.83 0.70 - 4.50 K/uL MONOCYTE ABSOLUTE 0.95 0.10 - 1.30 K/uL EOSINOPHIL ABSOLUTE 0.01 0.00 - 0.70 K/uL BASOPHILS ABSOLUTE 0.01 0.00 - 0.20 K/uL IMMATURE GRANULOCYTES ABSOLUTE 0.04 (H) 0.00 - 0.03 K/uL COMPREHENSIVE METABOLIC PANEL Result Value Ref Range SODIUM 141 136 - 145 mmol/L POTASSIUM 3.8 3.5 - 5.0 mmol/L CHLORIDE 111 (H) 98 - 107 mmol/L CO2 22 22 - 29 mmol/L CALCIUM 7.9 (L) 8.6 - 10.2 mg/dL BUN 7 6 - 20 mg/dL CREATININE 0.62 (L) 0.67 - 1.17 mg/dL GLUCOSE 167 (H) 74 - 99 mg/dL TOTAL PROTEIN 5.5 (L) 6.7 - 8.6 g/dL ALBUMIN 3.2 (L) 3.5 - 5.2 g/dL BILIRUBIN TOTAL 0.3 0.3 - 1.2 mg/dL ALKALINE PHOSPHATASE 266 (H) 40 - 129 U/L AST 69 (H) <41 U/L ALT 41 <42 U/L GFR >60 >=60 mL/min/1.73 sq meter ANION GAP 8 8 - 16 mmol/L MAGNESIUM LEVEL Result Value Ref Range MAGNESIUM 1.8 1.6 - 2.6 mg/dL PHOSPHORUS Result Value Ref Range PHOSPHORUS 2.3 (L) 2.5 - 4.5 mg/dL C-REACTIVE PROTEIN Result Value Ref Range CRP 184.0 (H) <5.0 mg/L ECHOCARDIOGRAM W/ CONTRAST AGENT Result Value Ref Range EJECTION FRACTION 701 Estimated Creatinine Clearance: 152.5 mL/min (A) (by C-G formula based on SCr of 0.62 mg/dL (L)). Assessment: RSV infection Acute acalculous cholecystitis S/P cholecystectomy Strep sanguinis bacteremia Echo without vegetations CT facial bones with no abscess or osteomyelitis History of penicillin allergy Plan: Continue same treatment. Monitoring repeat blood cultures Will follow Follow-up after discharge: Evelio Miller MD, FACP, [facility] Infectious Diseases Office Exchange: [phone] * Henok Artis MD - 11/17/2023 12:38 PM CDT Images from the original note were not included. DATE: 11/17/2023 NAME: Curt Beebe : 1985 CSN: [id number] [facility] General Surgery Progress Note Last 24 hours: - Had laparoscopic converted to open cholecystectomy yesterday. - H/H dropped, now stable. ASSESSMENT/PLAN: 38 y.o. male presenting with increased work of breathing and tachypnea, found to have RSV, and Strep viridans bacteremia and elevated CRP. HIDA is suggestive for an acute cholecystitis. Operations/Procedures Course: -11/16/23: Laparoscopic converted to open cholecystectomy (Chandra) Problem List: # Incidentally found inflamed/distended gallbladder # RUQ tenderness to palpation - Patient having RUQ tenderness on examination - HIDA positive for acute acute cholecystitis. - s/p cholecystectomy for acute calculous cholecystitis. -start clear liquids - advance diet as tolerated. - Watch TRENT output. - Continue antibiotics per ID recommendation - Medical management per medicine service # RSV #Bacteremia - Per primary # History of Mental Disability # Malnutrition?: No (if yes, add TACSPCMSulaiman dot phrase here) Nutritional status: Current Diet and/or Nutritional Supplementation ordered: DIET NPO Sips w/Meds, Henok Artis MD, 11/17/2023 12:38 PM For routine needs from 7am-7pm, contact the [facility] team signed onto the patient's care team via secure chat. For urgent needs: [facility] Pager: [phone] [facility] Trauma Emergency Phone: (1STAB) [facility] General Emergency Phone: (1GALL) Admit Date: 11/13/2023 LOS: 0 days Active Hospital Problems Diagnosis Streptococcal bacteremia History of penicillin allergy Acute acalculous cholecystitis Leukocytosis (leucocytosis) Febrile RSV infection Cholecystitis RSV (acute bronchiolitis due to respiratory syncytial virus) Seizure disorder, complex partial, with intractable epilepsy Development delay Resolved Hospital Problems No resolved problems to display. 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 Pt is non-verbalat baseline. HPI: Curt Beebe is a 38 y.o. male with a PMH of autisum, ADHD, static encephalopathy, nonverbal at baseline who is presenting with fevers and leukocytosis. Caregiver said patient had been acting differently the last few days and was not eating today. Lives [facility] snf. Nonverbal at baseline. S urgery consulted when CT remarkable for cholecystitis Scheduled Medications: cefTRIAXone, 2,000 mg, every 24 hours (daily) levETIRAcetam, 1,000 mg, BID cloNIDine, 1 Patch, every 7 days lamoTRIgine, 300 mg, BID propranoloL, 160 mg, daily docusate sodium, 100 mg, BID [Held by Provider] lacosamide, 200 mg, BID busPIRone, 10 mg, TID ergocalciferol, 50,000 Units, every 7 days multivitamin with icwgygmk-jhiwzmgn-xngfhs, 1 Tablet, daily [Held by Provider] cloNIDine HCL, 0.3 mg, daily LATE Zonisamide, 400 mg, BID cloBAZam, 40 mg, daily BEDTIME famotidine, 20 mg, BID lamoTRIgine, 150 mg, daily AFTER lunch naloxone, 0.1 mg, see admin instructions LORazepam, , LORazepam, 1 mg, ONE time only enoxaparin, 40 mg, every 24 hours lacosamide, 200 mg, every 12 hours IV Medications: potassium Cl in dextrose 5% - NaCl 0.9% 1,000 mL, Last Rate: 125 mL/hr at 11/17/23 0626 PRN Medications: ibuprofen, 400 mg, every 6 hours PRN bisacodyL, 10 mg, daily PRN magnesium hydroxide, 30 mL, daily PRN diphenhydrAMINE, 25 mg, every 6 hours PRN hydrOXYzine HCL, 25 mg, TID PRN aluminum - magnesium - simethicone, 30 mL, every 2 hours PRN HYDROcodone-acetaminophen, 1 Tablet, every 4 hours PRN morphine, 2 mg, every 4 hours PRN LORazepam, , LORazepam, 1 mg, every 6 hours PRN ondansetron, 4 mg, every 6 hours PRN prochlorperazine, 5 mg, every 6 hours PRN acetaminophen, 650 mg, every 6 hours PRN OBJECTIVE: BP 126/89 (BP Location: Left arm, Patient Position (BP): Supine) Pulse 90 Temp 99.8 ??F (37.7 ??C) (Axillary) Resp 21 Ht 5' 7 (1.702 m) Wt 76.1 kg (167 lb 12.8 oz) SpO2 93% BMI 26.28 kg/m?? BP Min: 107/91 Max: 155/79 Temp Av ??F (37.2 ??C) Min: 98.1 ??F (36.7 ??C) Max: 100.1 ??F (37.8 ??C) Pulse Av.6 Min: 88 Max: 118 Resp Av.9 Min: 18 Max: 32 SpO2 Av.3 % Min: 65 % Max: 100 % Intake/Output Summary (Last 24 hours) at 11/17/2023 1238 Last data filed at 11/17/2023 0859 Gross per 24 hour Intake 3554.57 ml Output 1670 ml Net 1884.57 ml Output by Drain (mL) 11/15/23699 - 11/15/23 18511/15/23 190 - 11/16/23 0659 11/16/23699 - 11/16/23 18511/16/23 1900 - 11/17/23 0659 11/17/23 07 - 11/17/23 1238 Drain/Device Site 11/16/23 1752 #1 Right: abdomen channel 80 40 Small amount stool (11/15/23 1700) Physical Exam: Gen alert, in no distress, non-verbal, appears uncomfortable Neuro Eyes open, nonverbal, YOUNG HEENT Normal Heart regular rate Lungs normal respiratory effort Abdomen Soft, mildly distended, incision with intact dressing. TRENT drain with serosanguinous output. Extremities no edema, redness or tenderness in the calves or thighs Skin Skin color, texture, turgor normal. No rashes or lesions Other PIV Labs/Imaging: Most recent CBC results: Recent Labs 11/16/2335211/16/23 2359 11/17/23 0455 WBC 9.3 7.2 8.3 HGB 11.4* 8.4* 8.7* HCT 33.4* 24.2* 25.3* PLT 249 205 243 Most recent BMP results: Recent Labs 11/15/2331611/16/23 0353 11/17/23 0503 NA 139 142 141 K 3.7 3.5 3.8 CL 107 110* 111* CO2 20* 21* 22 BUN 16 11 7 CREAT 0.79 0.65* 0.62* GLUCOSE 110* 122* 167* CA 8.9 8.8 7.9* MG -- -- 1.8 PO4 -- -- 2.3* Most recent LFT results: Recent Labs 11/15/2331611/16/23 0353 11/17/23 0503 TOTALPROTEIN 7.0 6.7 5.5* ALBUMIN 3.4* 3.3* 3.2* BILITOTAL 0.7 0.5 0.3 ALKPHOS 159* 182* 266* AST 17 14 69* ALT 17 14 41 Most recent Coagulation results: No results for input(s): PT , INR in the last 72 hours. Invalid input(s): PTT Most recent ABG results: Recent Labs 11/14/231927 PH 7.41 Most recent Accucheck results: Lab Results Component Value Date GLUCPOC 106 (H) 06/13/2023 GLUCPOC 105 (H) 06/06/2023 GLUCPOC 89 04/19/2023 GLUCPOC 159 (H) 02/14/2021 GLUCPOC 148 (H) 02/14/2021 I personally reviewed all images. Henok Artis MD * Jim Nguyen MD - 11/17/2023 11:45 AM CDT [facility] (Formerly [facility]) Adult Hospitalist Progress Note Admit Date: 11/13/2023 Date of Note: 11/17/2023, 11:45 AM LOS: 0 days Previous history of present illness and review of systems have been reviewed today as documented inthe H&P on 11/13/2023; medications, labs, studies, notes, orders and consults have been reviewed. I have reviewed the notes from admission. Subjective: Nonverbal, afebrile last 24H Objective: BP 126/89 (BP Location: Left arm, Patient Position (BP): Supine) Pulse 90 Temp 100.1 ??F (37.8 ??C) (Axillary) Resp 21 Ht 5' 7 (1.702 m) Wt 76.1 kg (167 lb 12.8 oz) SpO2 93% BMI 26.28 kg/m?? Temp (24hrs), Av.9 ??F (37.2 ??C), Min:98.1 ??F (36.7 ??C), Max:100.1 ??F (37.8 ??C) Small amount stool (11/15/23 1700) Exam: Gen Awake alert,nonverbal, noncooperative, no distress, appears stated age, unable to follow commands Lungs clear to auscultation bilaterally Heart regular rhythm, tachy rate, S1, S2 normal Abdomen soft, mild postop RUQ TTP, Bowel sounds normal. No masses, No organomegaly Ext no cyanosis or edema Data Base: I have reviewed all new labs and studies resulted and pertinent ones are noted below. Assessment/Plan of Actively Managed Problems Strep viridans-sanguinis bacteremia/Fever: CRP 300. CXR ?infiltrate. Appreciate ID assistance. ?GB origin. CT face/sinuses benign. TTE benign. Repeat blood cult 11/16 pending Cont IV ceftriaxone. Calculous cholecystitis: S/P lap converted to open cholecystectomy 11/[address] Artis N/V: Likely from cholecystitis. Moving bowels. CT neg for obs. Cont IVF and prn nausea meds RSV - supportive care. Droplet precautions. This is not the cause of his illness Seizure disorder - continue on home medications. Changed vimpat to IV and added keppra IV after discussion with Neuroogy due to N/V limiting PO meds at times Pt has freq breakthrough seizures even on4 meds and uses VNS as well Developmental delay/Autism: Miimally verbal Tremor: Cont inderal. Changed PO clonidine to patch Nutrition: Current Diet and/or Nutritional Supplementation ordered: DIET NPO Sips w/Meds, DVT Prophylaxis - Enoxaparin Chavez catheter:absent Lines: Peripheral IV PT/OT:yes Current Code Status -Full Code Plan discussed with patient,Mom Current Planned Disposition - TBD >35 minutes spent in patient care today > 50 %time spent in coordinating care communicating with nursing staff, social work. Jim Nguyen MD * Shaun Maloney, RT - 11/17/2023 3:47 AM CDT Images from the original note were not included. ST[facility] IMS Medication and Flush Protocol- CT and MRI Procedures [facility] Approved by: [facility]-Medical Executive Committee Approval Date: 08/01/2023 ORDERS ARE ENTERED ???PER PROTOCOL?? Enter the protocol in the patient's electronic health record using smartphrase: .imagingctmriprotocol Communication Orders: For ordered imaging procedures requiring intravenous access: Initiate a peripheral IV, if not already in place, and discontinue IV prior to discharge (if outpatient). Enter order if needed: Insert Peripheral IV Bariatric Oral Contrast: Post-surgical bariatric patients will have markedly reduced ability to drink normal quantities of liquid. Four ounces will be the maximum amount or less if the patient cannot comfortably tolerate. Cancel oral contrast if patient is nauseated or vomiting. Water based contrast only. Medication Orders: Local Anesthetic for use to initiate IV ADULT Lidocaine 4% (L.M.X.4) applied topically ONE TIME prior to IV catheter insertion PRN (L.M.X.4 % should be applied 15 minutes prior to procedure) PEDIATRIC Lidocaine 4% (L.M.X.4) applied topically ONE TIME prior to IV catheter insertion PRN (apply 30 minutes prior to procedure) Sucrose 24% (Squirts) given PO prior to IV catheter insertion (administer 1 - 2 minutes prior to procedure) OR Sucrose 24% (Tootsweet; Sweet-Ease) oral solution 0.2 mL oral (apply to tongue on pacifier or clean, gloved finger), ONE TIME 2 minutes prior to painful procedure. May repeat dose x1 PRN to complete procedure. Sodium chloride 0.9% (normal saline) flush 10 mL PRN for saline lock or medication administration. For respiratory distress, initiate oxygen and/or increase O2 to maintain saturation greater than 90% For all invasive procedures: obtain Lidocaine 1% for intra-procedure administration. If Lidocaine 1% unavailable, may substitute Lidocaine 2%. PROCEDURE SPECIFIC CT MEDICATIONS Any exceptions to these contrast protocols must be approved by a Radiologist and documented in the EHR Progress Notes. When multiple medications are listed with the comment ???OR?? them, select the first option until challenges from product availability make this option unavailable. Cystogram (CT Pelvis): Iopamidol (Isovue 300) 61%, 50 mL, diluted with 250mL of sterile NS. Inject Isovue into 250 mL bag of NS. Clamp chavez catheter prior to instilling solution via catheter. Instill up to 300 mL of Isovue and NS solution into bladder via catheter, one time. CT ORAL CONTRAST PROTOCOLS FOR ADULTS Use Iohexol (Omnipaque) 240 mg/mL for CT scan unless patient has a documented allergy to contrast dye. If allergy present, use Barium Sulfate (EZ Paque) for procedure. Iopamidol (Isovue 300) 300mg/ml: 30ml added to 960mL of clear liquid of patient's choice. Preferredroute is oral. May use nasoenteric tube if needed. Utilize the following administration instructions when there is a need to conserve contrast 15 mL of Iopamidol (Isovue 300) split into two cups (7.5 mL in each cup) Dilute as usual with 960 mL of clear liquid of patient's choice (480 mL in each cup) Have patient drink one cup an hour before the test, wait 30 minutes then start to drink the next cup, leaving a little over an inch in the bottom of the second cup. As the technologist is getting thepatient from the waiting room after an hour, have the patient finish the rest of the second cup so it can coat and fill the stomach OR Iohexol (Omnipaque) 240 mg/mL: 50ml added to 960mL of clear liquid of patient's choice. Preferred route is oral. May use nasoenteric tube if needed. Administer 900mL of the diluted Omnipaque 240, orally, one time only. Barium Sulfate (EZ Paque /Vanilla Silq) 96% oral suspension: Preferred route is oral. May use nasoenteric tube if needed. Administer 900mL of barium sulfate, orally, one time only. Bariatric Patient: Post-Surgery to 1 year- 50 mL total volume. NO carbonated liquids lopamidol (Isovue 300) 300 mg/mL: mixed with water. Draw 50 mL of mixed solution for patient. Preferred route is orally. May use nasoenteric tube if needed. OR lohexol (Omnipaque) 240 mg/mL: mixed with water. Draw 50mL of mixed solution for patient. Preferredroute is orally. May use nasoenteric tube if needed. (SUBJECT TO AVAILABILITY) After 1 year- no more than 236 mL (8oz) total volume. NO carbonated liquids. lopamidol (Isovue 300) 300 mg/mL: mixed with water OR lohexol (Omnipaque) 240 mg/mL: mixed with water (SUBJECT TO AVAILABILITY) CT ORAL CONTRAST PROTOCOLS FOR PEDIATRICS Pediatrics = up to age 18 Pediatric Radiologist will approve of one of the following products selected for procedure. Barium Sulfate (EZ Paque) 96% oral suspension: preferred route is oral. May use nasoenteric tube ifneeded. to 3 months Administer up to 90mL of Barium sulfate, orally, one time only 4 months to 1 year old Administer up to 240mL of Barium sulfate, Orally, One Time Only 1 year old to 5 years old Administer up to 360mL of Barium sulfate, Orally, One Time Only 5 years old to 10 years old Administer up to 480mL of Barium sulfate, Orally, One Time Only Over 10 years old Administer up to 600mL of Barium sulfate, Orally, One Time Only Iopamidol (Isovue 300) 300 mg/mL oral solution Dilute 25mL of Iohexol with 480mL of clear liquid of patient's choice. Administer the diluted solution per age as follows: Preferred route is orally. May use nasoenteric tube if needed. Send any remaining diluted Iohexol solution with the patient's nurse to CT Iopamidol (Isovue) 300 mg/ml oral solution age appropriate guidelines [place] Administer 45mL of diluted Iopamidol oral solution, orally every 30 minutes x 2 doses. 1 month to 1 year old Administer 120mL of diluted Iopamidol oral solution, orally every 30 min x 2 doses. 1 year old to 5 years old Administer 180mL of diluted Iopamidol oral solution, orally every 30 min x 2 doses. 5 years old to 10 years old Administer 240mL of diluted Iopamidol oral solution, orally every 30 min x 2 doses. Over 10 years old Administer 245mL of diluted Iopamidol oral solution, orally every 30 min x 2 doses. OR Iohexol (Omnipaque) 240 mg/mL oral solution Dilute 25mL of Iohexol with 480mL of clear liquid of patient's choice. Administer the diluted solution per age as follows: Preferred route is orally. May use nasoenteric tube if needed. Send any remaining diluted Iohexol solution with the patient's nurse to CT Iohexol (Omnipaque) 240mg/ml oral solution age appropriate guidelines [place] Administer 45mL of diluted Iohexol oral solution, orally every 30 minutes x 2 doses. 1 month to 1 year old Administer 120mL of diluted Iohexol oral solution, orally every 30 min x 2 doses. 1 year old to 5 years old Administer 180mL of Iohexol orally every 30 min x 2 doses. 5 years old to 10 years old Administer 240mL of Iohexol orally every 30 min x 2 doses. Over 10 years old Administer 250mL of Iohexol orally every 30 min x [address] RECTAL CONTRAST PROTOCOLS ADULTS: Iopamidol (Isovue) 300 mg/mL: Dilute 30mL of Isovue with 900mL of warm water in an enema bag. Administer the diluted solution rectally via gravity per patient's tolerance, up to 950mLs, one time only. OR Iohexol (Omnipaque) 240 mg/mL: Dilute 50mL of Omnipaque with 900mL of warm water in an enema bag. Administer the diluted solution rectally via gravity per patient's tolerance, up to 950mLs, one time only. CT IV CONTRAST PROTOCOLS for ADULT ADULTS: (If patient is less than 55kg and confirm dose with radiologist) Iopadmidol (Isovue-300): Administer 2.2mL/kg of Iopamidol 61%, intravenously, one time only. See table below for maximum dose, unless otherwise authorized by radiologist. If exam has been completed before the entire dose has been administered, stop the injection. Multiple doses of iodine contrast within a 24-hour period are a risk factor for OSMANY and should be avoided if possible. Emergent or other unusual circumstances where multiple doses of contrast are required in a short interval time should prompt consideration by the referring professional and radiologist to discuss the risks and benefits of contrast media administration. If exam not included in table below, contact radiologist for orders. Procedure Maximum Dose CT Head with Contrast Up to [address] Chest with Contrast Up to [address] Maxillofacial with Contrast Up to [address] Soft Tissue Neck with Contrast CT Chest Abdomen Pelvis with Contrast CT Chest Abdomen with Contrast CT Abdomen Pelvis with Contrast CT Pelvis with Contrast CT Angiogram Examinations (all) CT Soft Tissue Neck and Chest Abdomen Pelvis with Contrast Up to [address] Soft Tissue Neck and Chest with Contrast CT Urogram with Contrast CT IV CONTRAST PROTOCOLS for PEDIATRICS PEDIATRICS: Use weight-based dosing if patient is less than 55kg and confirm dose with radiologist. [place] to 15 years old Administer 2.2mL/kg (to MAX of 80 mL) of Iopamidol (Isovue-300) 61%, intravenously, one time only 15 years old and older Administer 2.2mL/kg (to MAX of 150mL) of Iopamidol (Isovue-300) 61%, intravenously, one time only PROCEDURE SPECIFIC MRI MEDICATIONS: MRI ENTEROGRAPHY: GLUGACON ADMINISTRATION Nurse will enter the following medication orders for MRI Enterography if not otherwise ordered. ADULTS: (patient 18 years or older) If the patient is diabetic, call the radiologist to verify administration of Glucagon For Outpatients: Patient will receive 2 doses of Glucagon one dose 0.5mg IM administered by nurse prior to the MRI exam beginning 2nd dose 0.5mg IV prior to the IV contrast being administered. For Inpatients: Patient will receive 1 dose of Glucagon 1 mg IV, administered by nurse prior to thestarting the MRI exam. PEDIATRICS: If the patient is diabetic call the radiologist to verify administration of Glucagon Outpatient pediatric patient: Pediatric patient weighing 24.9 kg or less should have one dose of Glucagon 0.5mg IM administered by nurse prior to MRI exam beginning. Pediatric patient weighing 25 kg or greater should have one dose of Glucagon 1 mg IM administered by nurse prior to the MRI exam beginning. Inpatient pediatric patient: Pediatric patient weighing 24.9 kg or less should have one dose of Glucagon 0.5 mg IV administered by nurse prior to MRI exam beginning. Pediatric patient weighing 25 kg or greater should have one dose of Glucagon 1 mg IV administered by nurse prior to the MRI exam beginning. MRI UROGRAM: LASIX ADMINISTRATION Nurse will enter the following medication orders for MRI Enterography if not otherwise ordered. ADULTS: Call radiologist with any questions regarding administration of Lasix Lasix 0.1mg per kg with a minimum dose of Lasix 5mg IV being given up to a max dose of Lasix 10mg IV being given. The Lasix should be administered by nurse prior to the IV contrast being administered. (Hold Lasix if: obstruction, anuria and hypersensitivity to furosemide, and electrolyte imbalance or hypotension should be corrected by nurse before administering) MRI IV CONTRAST PROTOCOLS ADULTS: Multihance and Prohance can be used for most MRI scans Prohance should be used primarily. Multihance is useful in specific circumstances as directed by the radiologist or per the appropriate sections established protocols. Group I gadolinium contrast agents shall not be administered. Generally, multiple doses of gadolinium contrast should not be administered within a 24-hour period. In emergent or other unusual circumstances where this is necessary, only Group II agents should beadministered. For Liver Studies: Contact radiologist to determine use of one of the following: Gadobenate Dimeglumine (Multihance) (0.1mmol/0.2mL), Administer 0.1mmol/kg = 0.2mL/kg up to MAX of 20 mL, intravenously, one time only Gadoteridol (Prohance) (0.1mmol/0.2mL), Administer 0.1mmol/kg = 0.2mL/kg up to MAX of 20mL, intravenously, one time only Gadoxetate (Eovist) (2.5 mmol/10mL), Administer 0.025mmol/kg = 0.1mL/kg up to MAX of 10mL, intravenously, one time only PEDIATRICS: Radiologist to determine need for contrast Term neonates up to 2 years: Gadobuterol (Gadavist) (1mmol/mL injection), Administer 0.1mmol/kg = 0.1mL/kg up to MAX of 14mmol=14mL, intravenously, one time only OR Gadobenate Dimeglumine (Multihance) (0.1mmol/mL), Administer 0.1mmol/kg = 0.1mL/kg up to MAX of 14mmol = 14mL, intravenously, one time only 2 years and older Gadobenate Dimeglumine (Multihance) (0.1mmol/0.2mL), Administer 0.1mmol/kg = 0.2mL/kg up to MAX of 20mL, intravenously, one time only OR Gadoteridol (Prohance) (0.1mmol/0.2mL), Administer 0.1mmol/kg = 0.2mL/kg up to MAX of 20mL, intravenously, one time only TABLE 1. ACR Manual Classification of Gadolinium-Based Agents Relative to Nephrogenic Systemic Fibrosis Group I: Agents associated with the greatest number of NSF cases: Gadodiamide (Omniscan?? - [employer]) Gadopentetate dimeglumine (Magnevist?? - [employer]) Gadoversetamide (OptiMARK?? - [employer]) Group II: Agents associated with few, if any, unconfounded cases of NSF: Gadobenate dimeglumine (MultiHance?? - [employer]) Gadobutrol (Gadavist?? - [employer]; Gadovist in many countries) Gadoteric acid (Dotarem?? - [employer]bet, Clariscan - [employer]) Gadoteridol (ProHance?? - [employer]) Group III: Agents for which data remains limited regarding NSF risk, but for which few, if any unconfounded cases of NSF have been reported: Gadoxetate disodium (Eovist - [employer]; Primovist in many countries) * Enedelia Strong LPN - 11/16/2023 12:15 PM CDT Patient remained stable this so far shift. No emesis. No facial grimacing indicative of pain or discomfort. Patient is non verbal with mother advocating for him at bedside. Pt has remained free of falls and is resting comfortably. Hourly rounding and safety monitoring completed this shift. * Henok Artis MD - 11/16/2023 10:24 AM CDT Images from the original note were not included. DATE: 11/16/2023 NAME: Curt Beebe : 1985 CSN: [id number] [facility] General Surgery Progress Note Last 24 hours: - no acute events. - NPO for OR ASSESSMENT/PLAN: 38 y.o. male presenting with increased work of breathing and tachypnea, found to have RSV, and Strep viridans bacteremia and elevated CRP. HIDA is suggestive for an acute cholecystitis. Operations/Procedures Course: -N/A Problem List: # Incidentally found inflamed/distended gallbladder # RUQ tenderness to palpation - Patient having RUQ tenderness on examination - HIDA positive for acute acute cholecystitis. Plan is for lap cholecystectomy today. Risks of surgery including bleeding, infection, common bile duct injury, and possibility of an open procedure were discussed with patient's mother (POA). She wishes to proceed with surgery. - Continue antibiotics # RSV #Bacteremia - Per primary # History of Mental Disability # Malnutrition?: No (if yes, add TACSPCMN dot phrase here) Nutritional status: Current Diet and/or Nutritional Supplementation ordered: DIET NPO Sips w/Meds, Henok Artis MD, 11/16/2023 10:24 AM For routine needs from 7am-7pm, contact the TACS team signed onto the patient's care team via secure chat. For urgent needs: TACS Pager: [phone] [facility] Trauma Emergency Phone: [phone] [facility] General Emergency Phone: [phone]) Admit Date: 11/13/2023 LOS: 0 days Active Hospital Problems Diagnosis Leukocytosis (leucocytosis) Febrile RSV infection Cholecystitis RSV (acute bronchiolitis due to respiratory syncytial virus) Seizure disorder, complex partial, with intractable epilepsy Development delay Resolved Hospital Problems No resolved problems to display. 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 Pt is non-verbalat baseline. HPI: Curt Beebe is a 38 y.o. male with a PMH of autisum, ADHD, static encephalopathy, nonverbal at baseline who is presenting with fevers and leukocytosis. Caregiver said patient had been acting differently the last few days and was not eating today. Lives [facility]. Nonverbal at baseline. S louise consulted when CT remarkable for cholecystitis Scheduled Medications: cefTRIAXone, 2,000 mg, every 24 hours (daily) levETIRAcetam, 1,000 mg, BID cloNIDine, 1 Patch, every 7 days lamoTRIgine, 300 mg, BID propranoloL, 160 mg, daily docusate sodium, 100 mg, BID [Held by Provider] lacosamide, 200 mg, BID busPIRone, 10 mg, TID ergocalciferol, 50,000 Units, every 7 days multivitamin with bjwwhgby-vnpmoqtg-erpjkm, 1 Tablet, daily [Held by Provider] cloNIDine HCL, 0.3 mg, daily LATE Zonisamide, 400 mg, BID cloBAZam, 40 mg, daily BEDTIME famotidine, 20 mg, BID lamoTRIgine, 150 mg, daily AFTER lunch naloxone, 0.1 mg, see admin instructions LORazepam, , LORazepam, 1 mg, ONE time only [Held by Provider] enoxaparin, 40 mg, every 24 hours lacosamide, 200 mg, every 12 hours IV Medications: potassium Cl in dextrose 5% - NaCl 0.9% 1,000 mL, Last Rate: 125 mL/hr at 11/16/23 0837 PRN Medications: ibuprofen, 400 mg, every 6 hours PRN bisacodyL, 10 mg, daily PRN magnesium hydroxide, 30 mL, daily PRN diphenhydrAMINE, 25 mg, every 6 hours PRN hydrOXYzine HCL, 25 mg, TID PRN aluminum - magnesium - simethicone, 30 mL, every 2 hours PRN HYDROcodone-acetaminophen, 1 Tablet, every 4 hours PRN morphine, 2 mg, every 4 hours PRN LORazepam, , LORazepam, 1 mg, every 6 hours PRN ondansetron, 4 mg, every 6 hours PRN prochlorperazine, 5 mg, every 6 hours PRN acetaminophen, 650 mg, every 6 hours PRN OBJECTIVE: BP 129/79 (BP Location: Right arm, Patient Position (BP): Supine) Pulse (!) 125 Temp 100 ??F (37.8 ??C) (Axillary) Resp 27 Ht 5' 7 (1.702 m) Wt 76.1 kg (167 lb 12.8 oz) SpO2 90% BMI 26.28 kg/m?? BP Min: 118/81 Max: 149/93 Temp Av.9 ??F (37.7 ??C) Min: 98.5 ??F (36.9 ??C) Max: 101.3 ??F (38.5 ??C) Pulse Av.6 Min: 106 Max: 125 Resp Av.5 Min: 27 Max: 36 SpO2 Av.5 % Min: 90 % Max: 98 % No intake or output data in the 24 hours ending 11/16/23 1024 Output by Drain (mL) 11/14/23 0700 - 11/14/23 1859 11/14/23 1900 - 11/15/23 0659 11/15/23 07 - 11/15/23 1859 11/15/23 1900 - 11/16/23 0659 11/16/23 0700 - 11/16/23 1024 Patient has no LDAs of requested type attached. Small amount stool (11/15/23 1700) Physical Exam: Gen alert, in no distress, non-verbal, appears uncomfortable Neuro Eyes open, nonverbal, YOUNG HEENT Normal Heart regular rate Lungs normal respiratory effort Abdomen Soft, mildly distended, wincing to palpation in the RUQ No chavez Extremities no edema, redness or tenderness in the calves or thighs Skin Skin color, texture, turgor normal. No rashes or lesions Other PIV Labs/Imaging: Most recent CBC results: Recent Labs 11/14/23 03411/15/2331611/16/23352 WBC 16.7* 9.9* 9.3 HGB 13.0* 11.8* 11.4* HCT 38.8* 34.6* 33.4* PLT 234 228 249 Most recent BMP results: Recent Labs 11/14/2334311/15/2331611/16/23352 NA 133* 139 142 K 3.7 3.7 3.5 CL 103 107 110* CO2 19* 20* 21* BUN 16 16 11 CREAT 0.64* 0.79 0.65* GLUCOSE 142* 110* 122* CA 8.8 8.9 8.8 Most recent LFT results: Recent Labs 11/13/23 1851 11/14/2334311/15/2331611/16/23352 TOTALPROTEIN 8.6 7.3 7.0 6.7 ALBUMIN 4.4 3.8 3.4* 3.3* BILITOTAL 1.1 1.2 0.7 0.5 ALKPHOS 212* 192* 159* 182* AST 32 31 17 14 ALT 22 23 17 14 LIPASE 10* -- -- -- Most recent Coagulation results: No results for input(s): PT , INR in the last 72 hours. Invalid input(s): PTT Most recent ABG results: Recent Labs 11/14/231927 PH 7.41 Most recent Accucheck results: Lab Results Component Value Date GLUCPOC 106 (H) 06/13/2023 GLUCPOC 105 (H) 06/06/2023 GLUCPOC 89 04/19/2023 GLUCPOC 159 (H) 02/14/2021 GLUCPOC 148 (H) 02/14/2021 I personally reviewed all images. Henok Artis MD * Jim Nguyen MD - 11/16/2023 7:00 AM CDT [facility] (Former[facility]) Adult Hospitalist Progress Note Admit Date: 11/13/2023 Date of Note: 11/16/2023, 7:00 AM LOS: 0 days Previous history of present illness and review of systems have been reviewed today as documented inthe H&P on 11/13/2023; medications, labs, studies, notes, orders and consults have been reviewed. I have reviewed the notes from admission. Subjective: Nonverbal, febrile again yest, + BM overnight, N/V this AM Objective: BP 129/79 (BP Location: Right arm, Patient Position (BP): Supine) Pulse (!) 125 Temp 100 ??F (37.8 ??C) (Axillary) Resp 27 Ht 5' 7 (1.702 m) Wt 76.1 kg (167 lb 12.8 oz) SpO2 90% BMI 26.28 kg/m?? Temp (24hrs), Av.9 ??F (37.7 ??C), Min:98.5 ??F (36.9 ??C), Max:101.3 ??F (38.5 ??C) Small amount stool (11/15/23 1700) Exam: Gen Asleep, awakens, opens eyes, nonverbal, noncooperative, no distress, appears stated age, unableto follow commands Lungs clear to auscultation bilaterally Heart regular rhythm, tachy rate, S1, S2 normal Abdomen soft, mild diffuse apparent TTP, Bowel sounds normal. No masses, No organomegaly Ext no cyanosis or edema Data Base: I have reviewed all new labs and studies resulted and pertinent ones are noted below. Assessment/Plan of Actively Managed Problems Strep viridans bacteremia/Fever: CRP 300. CXR ?infiltrate. CT and HIDA suggests cholecystitis. Appreciate Gen surg assistance. Plan lap kip today. LFTs benign. Cont IV ceftriaxone. ?BG source of strep bacteremia. ID consult N/V: Likely from cholecystitis. Moving bowels. CT neg for obs. Cont IVF and prn nausea meds RSV - supportive care. Droplet precautions. This is not the cause of his illness Seizure disorder - continue on home medications. Changed vimpat to IV and added keppra IV after discussion with Neuroogy due to N/V limiting PO meds at times Pt has freq breakthrough seizures even on4 meds and uses VNS as well Developmental delay/Autism: Miimally verbal Tremor: Cont inderal. Changed PO clonidine to patch Nutrition: Current Diet and/or Nutritional Supplementation ordered: DIET NPO Sips w/Meds, DVT Prophylaxis - Enoxaparin Chavez catheter:absent Lines: Peripheral IV PT/OT:yes Current Code Status -Full Code Plan discussed with patient,Mom Current Planned Disposition - TBD >35 minutes spent in patient care today > 50 %time spent in coordinating care communicating with nursing staff, social work. Jim Nguyen MD * Ivy Gan RN - 11/16/2023 12:08 AM CDT 0: Patient received from PACU, post surgery, in bed, accompanied by x2 nurses, on 2l/NC, non verbal, vital signs stable, dressing on incision site, right abdominal dressing scanty moist drainage, abdominal dressing dry and intact, TRENT drain site dry and intact, bulb compressed and patent, teleroom called, introduced to the nurse. * Walker Oakley PA - 11/15/2023 10:00 AM CDT Images from the original note were not included. DATE: 11/15/2023 NAME: Curt Beebe : 1985 CSN: [id number] [facility] General Surgery Progress Note Last 24 hours: no acute events. ASSESSMENT/PLAN: 38 y.o. male presenting with increased work of breathing and tachypnea, found to have RSV but also incidentally noted to have an inflamed and distended gallbladder on imaging. Operations/Procedures Course: -N/A Problem List: # Incidentally found inflamed/distended gallbladder # RUQ tenderness to palpation - Patient having RUQ tenderness on examination - HIDA ordered to r/o acute cholecystitis- results pending - NPO at midnight in event patient needs OR tomorrow, can have diet today per primary. - Continue antibiotics - OK for DVT ppx from a surgical standpoint # RSV #Bacteremia - Per primary # History of Mental Disability # Malnutrition?: No (if yes, add TACSPCMN dot phrase here) Nutritional status: Current Diet and/or Nutritional Supplementation ordered: DIET NPO Sips w/Meds, On the day of the visit, I spent 35 minutes providing care to this patient including Preparing to see the patient, Obtaining and/or reviewing separately obtained history, Performing a medically appropriate examination and/or evaluation, Counseling and educating the patient/family/caregiver, Ordering medications, tests or procedures, Documenting clinical information in the medical record, Referring and communication with other health doggy daycare activities director (not separately reported), and Independently interpreting results and communicating results to the patient/family/caregiver (not separately reported). ANGIE Mcbride, 11/15/2023 10:07 AM For routine needs from 7am-7pm, contact the [facility] team signed onto the patient's care team via secure chat. For urgent needs: [facility] Pager: [phone] [facility] Trauma Emergency Phone: (1STAB) [facility] General Emergency Phone: [phone]) Admit Date: 11/13/2023 LOS: 0 days Active Hospital Problems Diagnosis Leukocytosis (leucocytosis) Febrile RSV infection Cholecystitis RSV (acute bronchiolitis due to respiratory syncytial virus) Seizure disorder, complex partial, with intractable epilepsy Development delay Resolved Hospital Problems No resolved problems to display. 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 Pt is non-verbalat baseline. HPI: Curt Beebe is a 38 y.o. male with a PMH of autisum, ADHD, static encephalopathy, nonverbal at baseline who is presenting with fevers and leukocytosis. Caregiver said patient had been acting differently the last few days and was not eating today. Lives jose snf. Nonverbal at baseline. S louise consulted when CT remarkable for cholecystitis Scheduled Medications: cefTRIAXone, 2,000 mg, every 24 hours (daily) lamoTRIgine, 300 mg, BID propranoloL, 160 mg, daily docusate sodium, 100 mg, BID [Held by Provider] lacosamide, 200 mg, BID busPIRone, 10 mg, TID ergocalciferol, 50,000 Units, every 7 days multivitamin with bfopzuht-hbjhanff-nskfuw, 1 Tablet, daily cloNIDine HCL, 0.3 mg, daily LATE Zonisamide, 400 mg, BID cloBAZam, 40 mg, daily BEDTIME famotidine, 20 mg, BID lamoTRIgine, 150 mg, daily AFTER lunch naloxone, 0.1 mg, see admin instructions LORazepam, , LORazepam, 1 mg, ONE time only enoxaparin, 40 mg, every 24 hours lacosamide, 200 mg, every 12 hours levETIRAcetam, 1,000 mg, BID IV Medications: sodium chloride 0.9%, Last Rate: 100 mL/hr at 11/15/23 0831 PRN Medications: bisacodyL, 10 mg, daily PRN magnesium hydroxide, 30 mL, daily PRN diphenhydrAMINE, 25 mg, every 6 hours PRN hydrOXYzine HCL, 25 mg, TID PRN aluminum - magnesium - simethicone, 30 mL, every 2 hours PRN HYDROcodone-acetaminophen, 1 Tablet, every 4 hours PRN morphine, 2 mg, every 4 hours PRN LORazepam, , LORazepam, 1 mg, every 6 hours PRN ondansetron, 4 mg, every 6 hours PRN prochlorperazine, 5 mg, every 6 hours PRN acetaminophen, 650 mg, every 6 hours PRN OBJECTIVE: BP 113/72 (BP Location: Right arm, Patient Position (BP): Supine) Pulse (!) 106 Temp 99.7 ??F (37.6 ??C) (Oral) Resp 23 Ht 5' 7 (1.702 m) Wt 76.1 kg (167 lb 12.8 oz) SpO2 95% BMI 26.28kg/m?? BP Min: 111/61 Max: 128/85 Temp Av ??F (37.8 ??C) Min: 98.3 ??F (36.8 ??C) Max: 102.8 ??F (39.3 ??C) Pulse Av.8 Min: 76 Max: 107 Resp Av.6 Min: 18 Max: 36 SpO2 Av.5 % Min: 91 % Max: 97 % No intake or output data in the 24 hours ending 11/15/23 1007 Output by Drain (mL) 11/13/23 0700 - 11/13/23 1859 11/13/23 1900 - 11/14/23 0659 11/14/23 0700 - 11/14/23 1859 11/14/23 1900 - 11/15/23 0659 11/15/23 0700 - 11/15/23 1007 Patient has no LDAs of requested type attached. Large amount stool (11/15/23 1000) Physical Exam: Gen alert, in no distress, non-verbal, appears uncomfortable Neuro Eyes open, nonverbal, YONUG HEENT Normal Heart regular rate Lungs normal respiratory effort Abdomen Soft, mildly distended, wincing to palpation in the RUQ No chavez Extremities no edema, redness or tenderness in the calves or thighs Skin Skin color, texture, turgor normal. No rashes or lesions Other PIV Labs/Imaging: Most recent CBC results: Recent Labs 11/13/23185011/14/2334311/15/23316 WBC 19.9* 16.7* 9.9* HGB 14.0 13.0* 11.8* HCT 41.5 38.8* 34.6* PLT 281 234 228 Most recent BMP results: Recent Labs 11/13/23185011/14/2334311/15/23316 NA 134* 133* 139 K 4.3 3.7 3.7 CL 99 103 107 CO2 21* 19* 20* BUN 17 16 16 CREAT 0.80 0.64* 0.79 GLUCOSE 165* 142* 110* CA 10.0 8.8 8.9 Most recent LFT results: Recent Labs 11/13/23185011/14/2334311/15/23316 TOTALPROTEIN 8.6 7.3 7.0 ALBUMIN 4.4 3.8 3.4* BILITOTAL 1.1 1.2 0.7 ALKPHOS 212* 192* 159* AST 32 31 17 ALT 22 23 17 LIPASE 10* -- -- Most recent Coagulation results: No results for input(s): PT , INR in the last 72 hours. Invalid input(s): PTT Most recent ABG results: Recent Labs 11/14/231927 PH 7.41 Most recent Accucheck results: Lab Results Component Value Date GLUCPOC 106 (H) 06/13/2023 GLUCPOC 105 (H) 06/06/2023 GLUCPOC 89 04/19/2023 GLUCPOC 159 (H) 02/14/2021 GLUCPOC 148 (H) 02/14/2021 I personally reviewed all images. ANGIE Mcbride Associated attestation - Jewels Hermosillo MD - 11/16/2023 7:47 AM CDT I agree with the note below with the following comments: HIDA completed and shows acalculous cholecystitis. Will post for laparoscopic cholecystectomy on 11/15, tentative pending OR availability. NPO after midnight. Jewels Hermosillo MD Trauma, General Surgery, & Surgical Critical Care P: [phone] * Jim Nguyen MD - 11/15/2023 8:22 AM CDT [facility] ([facility] Adult Hospitalist Progress Note Admit Date: 11/13/2023 Date of Note: 11/15/2023, 8:22 AM LOS: 0 days Previous history of present illness and review of systems have been reviewed today as documented inthe H&P on 11/13/2023; medications, labs, studies, notes, orders and consults have been reviewed. I have reviewed the notes from admission. Subjective: Nonverbal, afebrile today so far today but high fever yesterday, no emesis today reports thus far Objective: BP 111/61 (BP Location: Right arm, Patient Position (BP): Lying left side) Pulse (!) 101 Temp 99.1 ??F (37.3 ??C) (Oral) Resp 27 Ht 5' 7 (1.702 m) Wt 76.1 kg (167 lb 12.8 oz) SpO2 92% BMI 26.28 kg/m?? Temp (24hrs), Av ??F (37.8 ??C), Min:98.3 ??F (36.8 ??C), Max:102.8 ??F (39.3 ??C) Moderate amount stool (11/15/23 0615) Exam: Gen Asleep, awakes, opens eyes, nonverbal, noncooperative, no distress, appears stated age, unable to follow commands Lungs clear to auscultation bilaterally Heart regular rate and rhythm, S1, S2 normal Abdomen soft, non-tender. Bowel sounds normal. No masses, No organomegaly Ext no cyanosis or edema Data Base: I have reviewed all new labs and studies resulted and pertinent ones are noted below. Assessment/Plan of Actively Managed Problems GPC chains bacteremia/Fever: High fever yest none today so far. CRP 266. CXR ?infiltrate. CT suggests cholecystitis await HIDA today. Appreciate Gen surg assistance. LFTs benign. Cont IV levoflox (PCN allergy). Tolerated ceftriaxone RSV - supportive care. Droplet precautions. This is not the cause of his illness Seizure disorder - continue on home medications. Changed vimpat to IV ad added keppra IV yest afterdiscussion with Neuroogy due to N/V but stop soon if tolerates meds. Pt has freq breakthrough seizures even on 4 meds and uses VNS as well Developmental delay/Autism: Miimally verbal N/V: CT abd/pel on admit neg for obs. Clears then ADAT after HIDA Nutrition: Current Diet and/or Nutritional Supplementation ordered: DIET NPO Sips w/Meds, DVT Prophylaxis - Enoxaparin Chavez catheter:absent Lines: Peripheral IV PT/OT:yes Current Code Status -Full Code Plan discussed with patient Current Planned Disposition - TBD home possibly 1-2 days >35 minutes spent in patient care today > 50 %time spent in coordinating care communicating with nursing staff, social work. Jim Nguyen MD * Tamy Spring RN - 11/15/2023 7:27 AM CDT This RN called and spoke with [facility]CS due to patient bowel sounds appearing to be extremely hypo active. At this time TACCS stated no new orders and to continue to monitor for any new symptoms. Patient mother discussed with this RN how the keppra is a new medication and they thought they would be stopping the other seizure medications as they were oral and only doing the keppra. This RN stated understanding and educated mother that we can get clarified when MD rounds. Mother stated understanding and asked that this RN call with an update on patient time to go for HIDA scan in AM. This RN called and spoke with mom about the scan being scheudled for approximately 0830. Mother stated understanding. * Jewels Hermosillo MD - 11/14/2023 2:39 PM CDT Images from the original note were not included. DATE: 11/14/2023 NAME: Curt Beebe : 1985 CSN: [id number] [facility] General Surgery Progress Note Last 24 hours: no acute events. Patient's mother at bedside providing additional subjective historyas patient noncontributory. She states he hasn't been eating well and not having regular BM's. She also mentions that his abdomen seems more distended than normal. ASSESSMENT/PLAN: 38 y.o. male presenting with increased work of breathing and tachypnea, found to have RSV but also incidentally noted to have an inflamed and distended gallbladder on imaging. Operations/Procedures Course: -N/A Problem List: # Incidentally found inflamed/distended gallbladder # RUQ tenderness to palpation - Patient having RUQ tenderness on exam today - HIDA ordered to r/o acute cholecystitis - NPO at midnight in event patient needs OR tomorrow - Continue antibiotics - OK for DVT ppx from a surgical standpoint # RSV - Per primary # Malnutrition?: No (if yes, add TACSPCMN dot phrase here) Nutritional status: Current Diet and/or Nutritional Supplementation ordered: DIET NPO Sips w/Meds, DIET NPO Strict On the day of the visit, I spent 35 minutes providing care to this patient including Preparing to see the patient, Obtaining and/or reviewing separately obtained history, Performing a medically appropriate examination and/or evaluation, Counseling and educating the patient/family/caregiver, Ordering medications, tests or procedures, Documenting clinical information in the medical record, Referring and communication with other health doggy daycare activities director (not separately reported), and Independently interpreting results and communicating results to the patient/family/caregiver (not separately reported). Jewels Hermosillo MD, 11/14/2023 2:39 PM For routine needs from 7am-7pm, contact the [facility] team signed onto the patient's care team via secure chat. For urgent needs: [facility] Pager: [phone] [facility] Trauma Emergency Phone: (1STAB) [facility] General Emergency Phone: [phone]) Admit Date: 11/13/2023 LOS: 0 days Active Hospital Problems Diagnosis Leukocytosis (leucocytosis) Febrile RSV infection Cholecystitis RSV (acute bronchiolitis due to respiratory syncytial virus) Seizure disorder, complex partial, with intractable epilepsy Development delay Resolved Hospital Problems No resolved problems to display. 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 Pt is non-verbalat baseline. HPI: Curt Beebe is a 38 y.o. male with a PMH of autisum, ADHD, static encephalopathy, nonverbal at baseline who is presenting with fevers and leukocytosis. Caregiver said patient had been acting differently the last few days and was not eating today. Lives jose snf. Nonverbal at baseline. S louise consulted when CT remarkable for cholecystitis Scheduled Medications: lamoTRIgine, 300 mg, BID propranoloL, 160 mg, daily docusate sodium, 100 mg, BID [Held by Provider] lacosamide, 200 mg, BID busPIRone, 10 mg, TID ergocalciferol, 50,000 Units, every 7 days multivitamin with olpdlpzu-jzsvgspw-yukmhu, 1 Tablet, daily cloNIDine HCL, 0.3 mg, daily LATE Zonisamide, 400 mg, BID cloBAZam, 40 mg, daily BEDTIME famotidine, 20 mg, BID lamoTRIgine, 150 mg, daily AFTER lunch naloxone, 0.1 mg, see admin instructions LORazepam, , LORazepam, 1 mg, ONE time only levoFLOXacin, 500 mg, every 24 hours enoxaparin, 40 mg, every 24 hours lacosamide, 200 mg, every 12 hours levETIRAcetam, 1,000 mg, BID metroNIDAZOLE, 500 mg, every 8 hours IV Medications: sodium chloride 0.9% PRN Medications: acetaminophen, 650 mg, every 4 hours PRN bisacodyL, 10 mg, daily PRN magnesium hydroxide, 30 mL, daily PRN diphenhydrAMINE, 25 mg, every 6 hours PRN hydrOXYzine HCL, 25 mg, TID PRN prochlorperazine maleate, 10 mg, every 6 hours PRN aluminum - magnesium - simethicone, 30 mL, every 2 hours PRN HYDROcodone-acetaminophen, 1 Tablet, every 4 hours PRN morphine, 2 mg, every 4 hours PRN LORazepam, , LORazepam, 1 mg, every 6 hours PRN ondansetron, 4 mg, every 6 hours PRN OBJECTIVE: BP 115/76 (BP Location: Right arm, Patient Position (BP): Sitting) Pulse 99 Temp 100.3 ??F (37.9 ??C) (Axillary) Resp 18 Ht 5' 7 (1.702 m) Wt 76.1 kg (167 lb 12.8 oz) SpO2 91% BMI 26.28 kg/m?? BP Min: 115/76 Max: 155/92 Temp Av.9 ??F (37.7 ??C) Min: 98.3 ??F (36.8 ??C) Max: 101.4 ??F (38.6 ??C) Pulse Av.8 Min: 67 Max: 99 Resp Av.6 Min: 18 Max: 24 SpO2 Av.9 % Min: 91 % Max: 98 % Height Av' 7 (170.2 cm) Min: 5' 7 (170.2 cm) Max: 5' 7 (170.2 cm) Weight Av.7 kg (171 lb 6.4 oz) Min: 76.1 kg (167 lb 12.8 oz) Max: 79.4 kg (175 lb) Intake/Output Summary (Last 24 hours) at 11/14/2023 1439 Last data filed at 11/14/2023 1000 Gross per 24 hour Intake 0 ml Output 0 ml Net 0 ml Output by Drain (mL) 11/12/23699 - 11/12/23 18511/12/231899 - 11/13/23 0659 11/13/23699 - 11/13/23 18511/13/23 190 - 11/14/23 0659 11/14/23 07 - 11/14/23 1439 Patient has no LDAs of requested type attached. Physical Exam: Gen alert, in no distress, non-verbal, appears uncomfortable Neuro Eyes open, nonverbal, YOUNG HEENT Normal Heart regular rate Lungs normal respiratory effort Abdomen Soft, mildly distended, wincing to palpation in the RUQ No chavez Extremities no edema, redness or tenderness in the calves or thighs Skin Skin color, texture, turgor normal. No rashes or lesions Other PIV Labs/Imaging: Most recent CBC results: Recent Labs 11/13/23 1851 11/14/23 0344 WBC 19.9* 16.7* HGB 14.0 13.0* HCT 41.5 38.8* PLT 281 234 Most recent BMP results: Recent Labs 11/13/23 18511/14/23 0344 NA 134* 133* K 4.3 3.7 CL 99 103 CO2 21* 19* BUN 17 16 CREAT 0.80 0.64* GLUCOSE 165* 142* CA 10.0 8.8 Most recent LFT results: Recent Labs 11/13/23 18511/14/23 0344 TOTALPROTEIN 8.6 7.3 ALBUMIN 4.4 3.8 BILITOTAL 1.1 1.2 ALKPHOS 212* 192* AST 32 31 ALT 22 23 LIPASE 10* -- Most recent Coagulation results: No results for input(s): PT , INR in the last 72 hours. Invalid input(s): PTT Most recent ABG results: No results for input(s): PH , PHARTERIAL , PCO2 , OVT3IIB , PO2 , PO2ART , HCO3 , NMM4JMD , BASEEXCESS , SO2 , PUNCSITE in the last 72 hours. Most recent Accucheck results: Lab Results Component Value Date GLUCPOC 106 (H) 06/13/2023 GLUCPOC 105 (H) 06/06/2023 GLUCPOC 89 04/19/2023 GLUCPOC 159 (H) 02/14/2021 GLUCPOC 148 (H) 02/14/2021 I personally reviewed all images. Jewels Hermosillo MD * Jim Nguyen MD - 11/14/2023 9:54 AM CDT [facility] Adult Hospitalist Progress Note Admit Date: 11/13/2023 Date of Note: 11/14/2023, 9:54 AM LOS: 1 day Previous history of present illness and review of systems have been reviewed today as documented inthe H&P on 11/13/2023; medications, labs, studies, notes, orders and consults have been reviewed. I have reviewed the notes from admission. Subjective: Nonverbal, afebrile today so far, no distress evident this AM Objective: BP (!) 137/91 (BP Location: Right arm, Patient Position (BP): Supine) Pulse 87 Temp 98.4 ??F (36.9 ??C) (Axillary) Resp 20 Ht 5' 7 (1.702 m) Wt 76.1 kg (167 lb 12.8 oz) SpO2 96% BMI 26.28 kg/m?? Temp (24hrs), Av.3 ??F (37.9 ??C), Min:98.4 ??F (36.9 ??C), Max:101.4 ??F (38.6 ??C) Exam: Gen alert, nonverbal, noncooperative, no distress, appears stated age Lungs clear to auscultation bilaterally Heart regular rate and rhythm, S1, S2 normal Abdomen soft, non-tender. Bowel sounds normal. No masses, No organomegaly Ext no cyanosis or edema Data Base: I have reviewed all new labs and studies resulted and pertinent ones are noted below. Assessment/Plan of Actively Managed Problems Fever: High fever yest none today so far. CRP 266. CXR ?infiltrate. CT suggests cholecystitis but Gen surg thinks less likely. LFTS benign. ?RSV cause of fever but high CRP unexpected. Blood cult NGTD. Cont IV flagyl. Change IV aztreonam to IV levoflox (PCN allergy) RSV - supportive care. Droplet precautions Seizure disorder - continue on home medications Developmental delay Nutrition: Current Diet and/or Nutritional Supplementation ordered: DIET NPO Strict DVT Prophylaxis - Enoxaparin Chavez catheter:absent Lines: Peripheral IV PT/OT:yes Current Code Status -Full Code Plan discussed with patient Current Planned Disposition - TBD home possibly 1-2 days >35 minutes spent in patient care today > 50 %time spent in coordinating care communicating with nursing staff, social work. Jim Nguyen MD documented in this encounter H&P Notes * Yaima Mitchell MD - 11/13/2023 11:26 PM CDT [facility] Adult Hospitalist H&P Patient Name: Curt Beebe 1985 Primary Care Doctor: Gulshan Mena DO Date of Admission: 11/13/2023 Date of Service: 11/13/2023 Assessment and Plan: Principal Problem: Cholecystitis Active Problems: Development delay Seizure disorder, complex partial, with intractable epilepsy RSV (acute bronchiolitis due to respiratory syncytial virus) Acute cholecystitis - general surgery consulted. Planning for ultrasound Will continue on antibiotics NPO after midnight RSV - supportive care. Droplet precautions Seizure disorder - continue on home medications Developmental delay DVT Prophylaxis scds only pending input from surgeons GI Prophylaxis: None Code status full per discussion with patient's mom Disposition: This patient was admitted under Observation: Based upon the patient's clinical condition and documented clinical information, the patient is expected to require hospital care for less than 2 midnights. Chief Complaint: increased work of breathing HPI: Patient is a 38 y.o. male with PMHx of Intellectual disability who presents to the emergency room with increased work of breathing. The patient is nonverbal so history is obtained from the caregiver at the bedside. The patient lives in a snf. He yesterday was noted to be a little out of it but the caregiver reports that he intermittently gets that way. However, today, he was noticed to have increased work of breathing and increased respiratory rate. He was brought to the emergency roomfor further evaluation. In the emergency room, he was found to have RSV. He also was found on imaging to have possible cholecystitis. He is being admitted for further management. The caregiver denies any nausea or vomiting. He is unable to tell if he is having any abdominal pain but he has not been visibly uncomfortable I was able to talk to him mom/caregiver. She reports that the patient had significant decreased po intake yesterday but no pain. She admits that it is hard to tell if he is uncomfortable due to his intellectual disability. Past Medical History: Diagnosis Date ADHD (attention deficit hyperactivity disorder) Adjustment reaction with aggression Allergic rhinitis Autism Constipation COVID-19 virus detected 02/13/2021 02/13/2021 Developmental delay disorder Mayfield-Gastaut syndrome Other general symptoms(780.99) Aggression-Adjustment Disorder Psychiatric disorder anxiety S/P placement of VNS (vagus nerve stimulation) device Seizure disorder Static encephalopathy Tremors of nervous system Past Surgical History: Procedure Laterality Date HX WISDOM TEETH EXTRACTION 2008 front teeth [place] INSJ/RPLCMT CRANIAL NEUROSTIM GENER 2/> ELTRDS Left 10/27/2013 VAGUS NERVE STIMULATOR PLACEMENT performed by Hieu Macias MD at [facility] OR [place] UNLISTED PROCEDURE DENTOALVEOLAR STRUCTURES N/A 10/20/2014 DENTAL REHABILITATION performed by Dereck Dunbar DDS at [facility] OR [facility] [place] UNLISTED PROCEDURE DENTOALVEOLAR STRUCTURES N/A 12/06/2016 DENTAL REHABILITATION performed by Dereck Dunbar DDS at [facility] OR [facility] Family History Problem Relation Name Age of Onset Other Father PSYCHIATRIC ISSUES Other Mother YULIANA MS Healthy Sister CRISTOBAL Healthy Brother MERRILL [...] Patient Reported? Taking? GUAIFENESIN (MUCINEX ORAL) Yes No Sig: Take 400 mg by mouth Every 4-6 hours PRN . LACTOSE-FREE FOOD (ENSURE ORAL) Yes No Sig: Take by mouth 1 time daily as needed. Zonisamide (ZONEGRAN) 100 mg capsule Yes No Sig: Take 400 mg by mouth 2 times daily. acetaminophen (TYLENOL) 325 mg tablet No No Sig: Take 2 Tabs by mouth every 4 hours as needed for Pain. bisacodyl (DULCOLAX) 5 mg Delayed Release tablet Yes No Sig: Take 10 mg by mouth 1 time daily as needed for Constipation. busPIRone (BUSPAR) 10 mg Oral tablet Yes No Sig: Take 10 mg by mouth 3 times daily. cloBAZam (ONFI) 10 mg Tablet Yes No Sig: Take 40 mg by mouth daily at bedtime. cloNIDine HCl (CATAPRES) 0.3 mg tablet Yes No Sig: Take 0.3 mg by mouth Daily LATE. At 8 PM diazePAM (Valtoco) 10 mg/spray (0.1 mL) [place], Non-Aerosol Yes No Sig: Administer 10 mg in each nostril 1 time daily as needed for Seizures. docusate sodium (COLACE) 100 mg Oral capsule Yes No Sig: Take 100 mg by mouth 2 times daily. ergocalciferol (VITAMIN D2) 50,000 unit capsule Yes No Sig: Take 50,000 Units by mouth every 7 days Saturday. lacosamide (VIMPAT) 100 mg tablet Yes No Sig: Take 200 mg by mouth 2 times daily . lamoTRIgine (LaMICtal) 150 mg tablet Yes No Sig: Take 300 mg by mouth 3 times daily. magnesium hydroxide (MILK OF MAGNESIA) 400 mg/5 mL suspension Yes No Sig: Take 30 mL by mouth 1 time daily as needed for Constipation. multivitamin (DAILY-KALYN) tablet Yes No Sig: Take 1 Tab by mouth daily. propranoloL (INDERAL LA) 160 mg Long Acting 24 hour capsule Yes No Sig: Take 160 mg by mouth daily. ranitidine (ZANTAC) 150 mg tablet Yes No Sig: Take 150 mg by mouth 2 times daily. Facility-Administered Medications: None Allergies Allergen Reactions Amoxicillin Hives Carbamazepine Other (See Comments) tremors Penicillins Hives Phenytoin Sodium Rash and Nausea and Vomiting Review of Systems: Unable to obtain as patient is non verbal Physical Exam: Patient Vitals for the past 8 hrs: BP Temp Temp src Pulse Resp SpO2 Weight 11/13/23 2215 127/83 (!) 101.2 ??F (38.4 ??C) Oral 71 23 94 % -- 11/13/23 1806 -- (!) 101.4 ??F (38.6 ??C) Oral -- -- -- -- 11/13/23 1804 (!) 155/92 -- -- 67 24 98 % 79.4 kg (175 lb) General: awake alert Lungs: clear to ausculation. Occasional increased work of breathing CV: rrr Abdomen: non distended, soft. Non tender Neuro: awake, alert. Makes eye contact. Non verbal Data Base: Lab: Results for orders placed or performed during the hospital encounter of 11/13/23 (from the past 24 hour(s)) RESPIRATORY PATHOGEN PCR PANEL Specimen: Nasopharynx; Upper Respiratory Result Value Ref Range COVID-19 PCR Not Detected Not Detected Respiratory syncytial virus by PCR Detected (A) Not Detected CBC WITH DIFFERENTIAL Result Value Ref Range WBC 19.9 (H) 4.0 - 9.8 K/uL RBC 4.39 (L) 4.50 - 5.40 M/uL HEMOGLOBIN 14.0 13.6 - 16.5 g/dL HEMATOCRIT 41.5 40.0 - 48.0 % MCV 94.5 82.0 - 99.0 fL MCH 31.9 27.2 - 32.6 pg MCHC 33.7 31.5 - 35.5 g/dL RDW 13.4 11.5 - 14.5 % RDW-STDEV 47.4 37.1 - 48.7 fL PLATELETS 281 140 - 350 K/uL MPV 10.1 9.3 - 12.4 fL NEUTROPHILS 82 % LYMPHOCYTES 5 % MONOCYTES 12 % EOSINOPHILS 0 % BASOPHILS 0 % IMMATURE GRANULOCYTES 1 % NEUTROPHIL ABSOLUTE 16.39 (H) 1.90 - 7.00 K/uL LYMPHOCYTE ABSOLUTE 0.94 0.70 - 4.50 K/uL MONOCYTE ABSOLUTE 2.37 (H) 0.10 - 1.30 K/uL EOSINOPHIL ABSOLUTE 0.02 0.00 - 0.70 K/uL BASOPHILS ABSOLUTE 0.03 0.00 - 0.20 K/uL IMMATURE GRANULOCYTES ABSOLUTE 0.14 (H) 0.00 - 0.03 K/uL COMPREHENSIVE METABOLIC PANEL Result Value Ref Range SODIUM 134 (L) 136 - 145 mmol/L POTASSIUM 4.3 3.5 - 5.0 mmol/L CHLORIDE 99 98 - 107 mmol/L CO2 21 (L) 22 - 29 mmol/L CALCIUM 10.0 8.6 - 10.2 mg/dL BUN 17 6 - 20 mg/dL CREATININE 0.80 0.67 - 1.17 mg/dL GLUCOSE 165 (H) 74 - 99 mg/dL TOTAL PROTEIN 8.6 6.7 - 8.6 g/dL ALBUMIN 4.4 3.5 - 5.2 g/dL BILIRUBIN TOTAL 1.1 0.3 - 1.2 mg/dL ALKALINE PHOSPHATASE 212 (H) 40 - 129 U/L AST 32 <41 U/L ALT 22 <42 U/L GFR >60 >=60 mL/min/1.73 sq meter ANION GAP 14 8 - 16 mmol/L BRAIN NATRIURETIC PEPTIDE, BNP OR PROBNP Result Value Ref Range PROBNP, N TERMINAL 979 (H) <124 pg/mL TROPONIN BASELINE, 5TH GEN Result Value Ref Range TROPONIN T, BASELINE 5TH GEN <6 <=15 ng/L PROLACTIN Result Value Ref Range PROLACTIN 5.5 4.0 - 15.2 ng/mL LIPASE Result Value Ref Range LIPASE 10 (L) 13 - 60 U/L POC LACTIC ACID Result Value Ref Range LACTIC ACID POC 1.9 <=2.0 mmol/L SPECIMEN SOURCE, GASES POC Blank COMMENT, GASES POC Responsible Clinical Caregiver notified TROPONIN 2 HR, 5TH GEN Result Value Ref Range TROPONIN T, 2 HR 5TH GEN 6 <=15 ng/L Yaima Mitchell MD Please contact me via [employer] Secure Chat from 7am-7pm After hours please place E-ticket to [facility] documented in this encounter Procedure Notes * Raleigh Kaplan MD - 11/26/2023 8:02 AM CDTAssociated Order(s): EEG 24 HOUR Video-EEG Report Patient Name: Curt Beebe [facility] Medical Record Number (MRN): [id number] Date of (): 1985 Start Time: 9:22 AM on 11/25/2023 End Time: 7 AM on 11/26/2023 Introduction: Mr. Beebe is a 38 y.o. male. Reason for [...] global cerebral dysfunction. Tomasa Kaplan MD Neurology * Elsa Emmanuel, RDCS - 11/17/2023 6:46 AM CDT Images from the original note were not included. [facility] DCS Definity Protocol [facility] Approved by: [facility] - Medical Executive Committee Approval Date: 08/21/2023 ORDERS ARE ENTERED ???PER PROTOCOL?? Enter the protocol in the patient's electronic health record using smartphrase: .definityprotocol SCOPE: DEFINITY?? is approved for intravenous use in patients with technically suboptimal echocardiograms to assist in left ventricular opacification, left ventricular endocardial border definition, and to offer other imaging enhancements to benefit the diagnostic value of the echocardiogram INCLUSION CRITERIA: Patient meets at least one of these inclusion criteria Credentialed provider request Patient is technically difficult to image (Citizen Of [place] Society of Echocardiography guidelines recommend use when 2 or more segments within the apical/parasternal short axis views are not discernable) The question of left ventricular function has been raised and/or suspicion for estimated ejection fraction being less than 35 percent, regardless of image quality Furthermore, DEFINITY?? use is strongly recommended by the ASE, when visualization of the endocardium is critical, particularly for use with stress echocardiography EXCLUSIONS: Verify patient does not meet any of these exclusion criteria. If patient meets/states ???yes?? to any exclusion criteria, DO NOT PROCEED WITH PROCEDURE, and annotate exam accordingly. Allergy or hypersensitivity to DEFINITY?? or octafluoropropane Allergy or hypersensitivity to Polyethylene Glycol Is DEFINITY?? is not recommended while you are , however, is not a criterion for exclusion. If patient is , formula feedings should be substituted for for one cycle following the administration of Definity. Breast milk produced within that time should be discarded. Actively being supported by ECMO (extracorporeal membrane oxygenation) *Critical Care physicians can request use of DEFINITY?? on ECMO patients. The ECMO cement kiln operator must bepresent when the DEFINITY ?? is administered and while images are being obtained. The ECMO operatorcan be reached at [phone] ([phone] in [place]) ADMINISTRATION INSTRUCTIONS: DEFINITY?? may be ordered by a credentialed provider, RN or road advisor Educate patient or responsible alliance party on DEFINITY?? indications and potential side effects and review procedure goals with the patient and/or caregiver Verify patient does not have any allergy or contraindications to receive DEFINITY?? or octaflouropropane and confirm Allergies by ???Marking as Reviewed?? in patient's chart Verify peripheral or central line IV access. If IV access is not available, then a trained road advisor liquor department manager may place peripheral IV access, as appropriate, for medication administration NOTE: Do NOT access dialysis catheter or arterial line catheter. Before activating DEFINITY??, allow the refrigerated vial to warm to room temperature Activate DEFINITY?? using the VialMix machine: Vial of DEFINITY?? should be vented prior to withdrawing medication (18g or 20g needle) and care should be taken to ensure that any excess air has been cleared from the syringe Dilute the DEFINITY?? in a syringe with 8.5mL Normal Saline to make 10 mL Administer DEFINITY?? in small increments as needed to enhance visualization up to a total of 10 mLof the diluted DEFINITY?? DEFINITY?? vials may require resuspension and/or reactivation (see image below for further information) RN or trained road advisor may discontinue peripheral IV access when IV no longer required for treatment, document start and stop time in EHR Change procedure order to include DEFINITY??, then END EXAM DEFINITY? Activation/Reactivation1,6 If activated vial is not used within 5 minutes, resuspend with 10 seconds of hand agitation prior to use. DEFINITY? may be used for up to 12 hours after activation with VIALMIX??1 If not used within 12 hours, vial may be returned to refrigeration and reactivated once with VIALMIX?? within 24 hours6 Reactivated DEFINITY? may be used for up to 12 hours1,6 documented in this encounter Consult Notes * Evelio Miller MD - 11/16/2023 11:32 AM CDTAssociated Order(s): IP CONSULT TO INFECTIOUS DISEASES INFECTIOUS DISEASES CONSULTATION NOTE Reason for consultation: Bacteremia Referring Service/Physician: Hospitalist Date of service: 11/16/2023 Subjective Patient is a 38 y.o. male admitted on 11/13/2023 with fever and cough. Here, he was noted to have leukocytosis with elevated CRP. He tested positive for RSV and imaging was suggestive of cholecystitis. Blood cultures grew Strep sanguinis. He is on Rocephin and will be undergoing laparoscopic cholecystectomy today. Principal Problem: Cholecystitis Active Problems: Development delay Seizure disorder, complex partial, with intractable epilepsy RSV (acute bronchiolitis due to respiratory syncytial virus) Leukocytosis (leucocytosis) Febrile RSV infection Past Medical History: Diagnosis Date ADHD (attention [...] HX WISDOM TEETH EXTRACTION 2008 front teeth [place] INSJ/RPLCMT CRANIAL NEUROSTIM GENER 2/> ELTRDS Left 10/27/2013 VAGUS NERVE STIMULATOR PLACEMENT performed by Hieu Macias MD at [facility] OR [place] UNLISTED PROCEDURE DENTOALVEOLAR STRUCTURES N/A 10/20/2014 DENTAL REHABILITATION performed by Dereck Dunbar DDS at [facility] OR [facility] [place] UNLISTED PROCEDURE DENTOALVEOLAR STRUCTURES N/A 12/06/2016 DENTAL REHABILITATION performed by Dereck Dunbar DDS at [facility] OR [facility] Facility-Administered Medications as of 11/16/2023 Medication Dose Frequency Provider Last Rate Last Admin potassium Cl in dextrose 5% - NaCl 0.9% 1,000 mL 20 mEq/L infusion continuous Jim Nguyen MD 125 mL/hr at 11/16/23 0837 New Bag at 11/16/23 0837 cefTRIAXone (ROCEPHIN) 2,000 mg in sodium chloride 0.9% 50 mL IVPB (MBP) 2,000 mg every 24 hours (daily) Jim Nguyen MD Stopped at 11/16/23 0721 [COMPLETED] sodium chloride flush injection 10 mL 10 mL ONE time only Girish Sanchez MD 10 mL at 11/15/23 0915 levETIRAcetam (KEPPRA) 500 mg/5 mL injection 1,000 mg 1,000 mg BID Jim Nguyen MD 1,000 mg at 11/16/23 0652 ibuprofen (MOTRIN) tablet 400 mg 400 mg every 6 hours PRN Jim Nguyen MD 400 mg at 11/15/23 182 cloNIDine (SADFJINJ-PDN-4) 0.1 mg/24 hr transdermal patch 1 Patch 1 Patch every 7 days Jim Nguyen MD 1 Patch at 11/15/232052 [COMPLETED] acetaminophen (TYLENOL) 325 mg/10.15 mL oral solution 650 mg 650 mg ONE time only Yaima Mitchell MD 650 mg at 11/14/23 0322 lamoTRIgine (LaMICtal) tablet 300 mg 300 mg BID Yaima Mitchell MD 300 mg at 11/15/23 1800 propranoloL (INDERAL LA) SR 24 hour capsule 160 mg 160 mg daily Yaima Mitchell MD docusate sodium (COLACE) capsule 100 mg 100 mg BID Yaima Mitchell MD 100 mg at 11/15/23 182 [Held by Provider] lacosamide (VIMPAT) tablet 200 mg 200 mg BID Yaima Mitchell MD busPIRone (BUSPAR) tablet 10 mg 10 mg TID Yaima Mitchell MD 10 mg at 11/15/23 182 ergocalciferol (VITAMIN D2) capsule 50,000 Units 50,000 Units every 7 days Yaima Mitchell MD multivitamin with yjtvnsew-gwqjrdjq-nldaiz (CENTRUM SILVER) 0.4 mg-300 mcg- 250 mcg per tablet 1 Tablet 1 Tablet daily Yaima Mitchell MD [Held by Provider] cloNIDine HCL (CATAPRES) tablet 0.3 mg 0.3 mg daily LATE Yaima Mitchell MD 0.3 mg at 11/14/23 174 bisacodyL (DULCOLAX) delayed release tablet 10 mg 10 mg daily PRN Yaima Mitchell MD Zonisamide (ZONEGRAN) capsule 400 mg 400 mg BID Yaima Mitchell MD 400 mg at 11/15/231824 magnesium hydroxide (MILK OF MAGNESIA) oral suspension 30 mL 30 mL daily PRN Yaima Mitchell MD cloBAZam (ONFI) tablet 40 mg 40 mg daily BEDTIME Yaima Mitchell MD 40 mg at 11/15/232052 famotidine (PEPCID) tablet 20 mg 20 mg BID Yaima Mitchell MD 20 mg at 11/15/231824 lamoTRIgine (LaMICtal) tablet 150 mg 150 mg daily AFTER lunch Yaima Mitchell MD 150 mg at 11/15/231233 diphenhydrAMINE (BENADRYL) tablet 25 mg 25 mg every 6 hours PRN Yaima iMtchell MD hydrOXYzine HCL (ATARAX) tablet 25 mg 25 mg TID PRN Yamia Mitchell MD naloxone (NARCAN) 0.4 mg/mL injection 0.1 mg 0.1 mg see admin instructions Yaima Mitchell MD aluminum - magnesium - simethicone (MYLANTA) 200-200-20 mg/5 mL oral suspension 30 mL 30 mL every 2hours PRN Yaima Mitchell MD HYDROcodone-acetaminophen (NORCO) 5-325 mg per tablet 1 Tablet 1 Tablet every 4 hours PRN Yaima Mitchell MD morphine 4 mg/mL injection 2 mg 2 mg every 4 hours PRN Yaima Mitchell MD LORAZEPAM 2 MG/ML INJECTION SOLUTION (CABINET OVERRIDE) LORazepam (ATIVAN) 2 mg/mL injection 1 mg 1 mg ONE time only Gilberto Cote DO [Held by Provider] enoxaparin (LOVENOX) injection 40 mg 40 mg every 24 hours Jim Nguyen MD 40mg at 11/15/23 1234 lacosamide (VIMPAT) 200 mg/20 mL injection 200 mg 200 mg every 12 hours Jim Nguyen MD 200 mg at 11/16/23 0017 LORazepam (ATIVAN) 2 mg/mL injection 1 mg 1 mg every 6 hours PRN Jim Nguyen MD ondansetron (ZOFRAN) 4 mg/2 mL injection 4 mg 4 mg every 6 hours PRN Jim Nguyen MD 4 mg at 11/16/23 0638 prochlorperazine (COMPAZINE) injection 5 mg 5 mg every 6 hours PRN Jim Nguyen MD 5 mg at 11/14/23 1612 acetaminophen (TYLENOL) 325 mg/10.15 mL oral solution 650 mg 650 mg every 6 hours PRN Priscilla Nguyen MD 650 mg at 11/14/23 1701 [COMPLETED] sodium chloride 0.9% bolus solution 500 mL 500 mL ONE time only Jim Nguyen MD Stopped at 11/14/23 1851 [COMPLETED] cefTRIAXone (ROCEPHIN) 2,000 mg in sodium chloride 0.9% 50 mL IVPB (MBP) 2,000 mg ONE time only Jim Nguyen MD Stopped at 11/14/23 1824 [COMPLETED] sodium chloride 0.9% bolus solution 500 mL 500 mL ONE time only Gilberto Cote DO 999 mL/hr at 11/13/23 2220 500 mL at 11/13/23 2220 [COMPLETED] aztreonam (AZACTAM) 1,000 mg in sodium chloride 0.9% 50 mL IVPB (MBP) 1,000 mg ONE timeonly Gilberto Cote DO Stopped at 11/14/23 0049 Allergies Allergen Reactions Amoxicillin Hives Carbamazepine Other (See Comments) tremors Penicillins Hives Phenytoin Sodium Rash and Nausea and Vomiting Social History Tobacco Use Smoking status: Never Smokeless tobacco: Never Substance Use Topics Alcohol use: No Family History Problem Relation Name Age of Onset Other Father PSYCHIATRIC ISSUES Other Mother YULIANA MS Healthy Sister CRISTOBAL Healthy Brother MERRILL Hypertension Maternal Grandmother High Cholesterol Maternal Grandfather Hypertension Maternal Grandfather Diabetes Maternal Grandfather Cancer Maternal Grandfather PERHAPS KIDNEY OR LIVER Hypertension Paternal Grandmother Diabetes Paternal Grandmother Healthy Sister YOBANY Healthy Brother EDWIGE There is no immunization history on file for this patient. Review of Systems Constitutional: fevers Eye: denies cataracts, glaucoma, visual disturbance, irritation, color issues Ear, Nose, Mouth, Throat: denies hearing loss, tinnitus, ear issues, nasal congestion, epistaxis, snoring, neck mass, oral issues, hoarse voice Respiratory: cough Cardiovascular: denies chest pain or discomfort, exertional chest pressure/discomfort, fatigue, pounding heart/chest, nausea, syncope, shortness of breath Gastrointestinal: abdominal pain and vomiting Genitourinary: denies dysuria, frequency, hematuria, hesitancy, nocturia, urinary incontinence Integementary, Breast: denies skin lesion(s), color change, lumps, masses, discharge, tenderness Hematologic, Oncologic, Lymphatic: denies: bruising, bleeding, lymphadenopathy, petechiae Musculoskeletal: denies: myalgia, arthralgia, stiff joints, neck pain, back pain, muscle weakness Neurological: denies blurry or disturbed vision, gait problems, dizziness, difficulty swallowing, muscle weakness, difficulty saying words Behavior, Psychologic: developmental delay Objective Patient Vitals for the past 8 hrs: BP Temp src Pulse SpO2 11/16/23 0641 129/79 Axillary (!) 125 90 % No intake or output data in the 24 hours ending 11/16/23 1132 Estimated Creatinine Clearance: 145.5 mL/min (A) (by C-G formula based on SCr of 0.65 mg/dL (L)). General Appearance: awake, no distress HEENT: no icterus, difficult to examine oral cavity Neck: supple Heart:RRR Chest: CTA Abdomen: no apparent tenderness Extremities:no edema Musculoskeletal: no joint effusions Skin: no acute rash All labs, imaging and notes from this admission have been reviewed, in addition to pertinent labs, imaging, and notes from prior admissions and hospital visits. Assessment RSV infection Acute acalculous cholecystitis Strep sanguinis bacteremia History of penicillin allergy Plan Continue Rocephin Close monitoring of vagal nerve stimulator site for signs of infection in the setting of bacteremia Ordered CT facial bones to rule out oral source of bacteremia Ordered echo to evaluate for vegetations Will repeat blood cultures tomorrow Thank you for the consultation, Evelio Miller MD, FACP, [facility] Infectious Diseases Office Exchange: [phone] * Iva Joseph PA-C - 11/13/2023 11:03 PM CDT Images from the original note were not included. DATE: 11/13/2023 NAME: Curt Beebe : 1985 CSN: [id number] [facility] General Surgery Consult ASSESSMENT/PLAN: Curt Beebe is a 38 y.o. male with PMH of autism, ADHD, static encephalopathy, nonverbal at baseline who is presenting with fevers and leukocytosis. # Acute Cholecystitis - admit to medicine - WBC 19.9 on admission, febrile Tmax 101.2 - LFTs and Tbili WNL - CT scan w/distended GB, wall thickening, fat stranding - US ordered - trend LFTs, Tbili - allergic to PCN - recommend flagyl & rocephin or flagyl & aztreonam - recommend additional w/u to r/o other causes of fever - blood cultures, UA & resp PCR - no indication for surgical intervention at this time - will follow and make decision after workupis complete. Guarding is patient's mom Mary Beebe. # in chart Incidental Findings: n/a See orders. I have reviewed this patient's history and physical, family history, acute and chronic diagnoses, all pertinent notes, vitals, labs, medications and images during my development of the above assessment and plan. I discussed case with Dr. Gresham. This patient was admitted under Inpatient: Based upon the patient's clinical condition and documented clinical information, the patient is expected to require hospital care that crosses 2 midnights or more. Iav Joseph PA-C, 11/13/2023 11:03 PM For routine needs from 7am-7pm, contact the [facility] team signed onto the patient's care team via secure chat. For urgent needs: [facility] Pager: [phone] [facility] Trauma Emergency Phone: [phone]) [facility] General Emergency Phone: [phone]) Subjective: Chief Complaint Patient presents with Fever 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 Pt is non-verbalat baseline. There are no hospital problems to display for this patient. HPI: Curt Beebe is a 38 y.o. male with a PMH of autisum, ADHD, static encephalopathy, nonverbal at baseline who is presenting with fevers and leukocytosis. Caregiver said patient had been acting differently the last few days and was not eating today. Lives jose snf. Nonverbal at baseline. S urgery consulted when CT remarkable for cholecystitis Allergies Allergen Reactions Amoxicillin Hives Carbamazepine Other (See Comments) tremors Penicillins Hives Phenytoin Sodium Rash and Nausea and Vomiting (Not in a hospital admission) Past Medical History: Diagnosis Date ADHD (attention deficit hyperactivity disorder) Adjustment reaction with aggression Allergic rhinitis Autism Constipation COVID-19 virus detected 02/13/2021 02/13/2021 Developmental delay disorder Emmett-Gastaut syndrome Other general symptoms(780.99) Aggression-Adjustment Disorder Psychiatric disorder anxiety S/P placement of VNS (vagus nerve stimulation) device Seizure disorder Static encephalopathy Tremors of nervous system Past Surgical History: Procedure Laterality Date HX WISDOM TEETH EXTRACTION 2009 front teeth [place] INSJ/RPLCMT CRANIAL NEUROSTIM GENER 2/> ELTRDS Left 10/27/2013 VAGUS NERVE STIMULATOR PLACEMENT performed by Hieu Macias MD at [facility] OR [place] UNLISTED PROCEDURE DENTOALVEOLAR STRUCTURES N/A 10/20/2014 DENTAL REHABILITATION performed by Dereck Dunbar DDS at [facility] OR [facility] [place] UNLISTED PROCEDURE DENTOALVEOLAR STRUCTURES N/A 12/06/2016 DENTAL REHABILITATION performed by Dereck Dunbar DDS at [facility] OR [facility] Family History Problem Relation Name Age of Onset Other Father PSYCHIATRIC ISSUES Other Mother YULIANA MS Healthy Sister CRISTOBAL Healthy Brother MERRILL Hypertension Maternal Grandmother High Cholesterol Maternal Grandfather Hypertension Maternal Grandfather Diabetes Maternal Grandfather Cancer Maternal Grandfather PERHAPS KIDNEY OR LIVER Hypertension Paternal Grandmother Diabetes Paternal Grandmother Healthy Sister YOBANY Healthy Brother EDWIGE Noncontributory Social History Socioeconomic History Marital status: Single Spouse name: Not on file Number of children: Not on file Years of education: Not on file Highest education level: Not on file Occupational History Employer: NOT EMPLOYED Tobacco Use Smoking status: Never Smokeless tobacco: Never Substance and Sexual Activity Alcohol use: No Drug use: No Sexual activity: Not on file Other Topics Concern Not on file Social History Narrative Not on file Social Determinants of Health Financial Resource Strain: Not on file Food Insecurity: Not on file Transportation Needs: Not on file Social Connections: Not on file Intimate Partner Violence: Patient Unable To Answer (06/13/2023) Intimate Partner Violence Patient has indicated abuse: : Patient unable to answer Housing Stability: Not on file TOBACCO COUNSELING He is not a tobacco/nicotine user. Review of Systems: Review of Systems Unable to perform ROS: Patient nonverbal Unable to obtain Objective: Patient Vitals for the past 8 hrs: BP Temp Temp src Pulse Resp SpO2 Weight 11/13/23 2215 127/83 (!) 101.2 ??F (38.4 ??C) Oral 71 23 94 % -- 11/13/23 1806 -- (!) 101.4 ??F (38.6 ??C) Oral -- -- -- -- 11/13/23 1804 (!) 155/92 -- -- 67 24 98 % 79.4 kg (175 lb) BP 127/83 (BP Location: Right arm, Patient Position (BP): Supine) Pulse 71 Temp (!) 101.2 ??F (38.4 ??C) (Oral) Resp 23 Wt 79.4 kg (175 lb) SpO2 94% BMI 27.41 kg/m?? Physical Exam: Gen In NAD. Awake and alert Neuro Grossly normal HEENT Anicteric. Dry MM Heart regular rate, regular rhythm Lungs clear to auscultation bilaterally, normal respiratory effort Abdomen Soft and ND. No guarding. No rebound No chavez Extremities Moves all extremities Skin Warm and dry Other Labs/Imaging: Results for orders placed or performed during the hospital encounter of 11/13/23 (from the past 24 hour(s)) RESPIRATORY PATHOGEN PCR PANEL Specimen: Nasopharynx; Upper Respiratory Result Value Ref Range COVID-19 PCR Not Detected Not Detected Respiratory syncytial virus by PCR Detected (A) Not Detected CBC WITH DIFFERENTIAL Result Value Ref Range WBC 19.9 (H) 4.0 - 9.8 K/uL RBC 4.39 (L) 4.50 - 5.40 M/uL HEMOGLOBIN 14.0 13.6 - 16.5 g/dL HEMATOCRIT 41.5 40.0 - 48.0 % MCV 94.5 82.0 - 99.0 fL MCH 31.9 27.2 - 32.6 pg MCHC 33.7 31.5 - 35.5 g/dL RDW 13.4 11.5 - 14.5 % RDW-STDEV 47.4 37.1 - 48.7 fL PLATELETS 281 140 - 350 K/uL MPV 10.1 9.3 - 12.4 fL NEUTROPHILS 82 % LYMPHOCYTES 5 % MONOCYTES 12 % EOSINOPHILS 0 % BASOPHILS 0 % IMMATURE GRANULOCYTES 1 % NEUTROPHIL ABSOLUTE 16.39 (H) 1.90 - 7.00 K/uL LYMPHOCYTE ABSOLUTE 0.94 0.70 - 4.50 K/uL MONOCYTE ABSOLUTE 2.37 (H) 0.10 - 1.30 K/uL EOSINOPHIL ABSOLUTE 0.02 0.00 - 0.70 K/uL BASOPHILS ABSOLUTE 0.03 0.00 - 0.20 K/uL IMMATURE GRANULOCYTES ABSOLUTE 0.14 (H) 0.00 - 0.03 K/uL COMPREHENSIVE METABOLIC PANEL Result Value Ref Range SODIUM 134 (L) 136 - 145 mmol/L POTASSIUM 4.3 3.5 - 5.0 mmol/L CHLORIDE 99 98 - 107 mmol/L CO2 21 (L) 22 - 29 mmol/L CALCIUM 10.0 8.6 - 10.2 mg/dL BUN 17 6 - 20 mg/dL CREATININE 0.80 0.67 - 1.17 mg/dL GLUCOSE 165 (H) 74 - 99 mg/dL TOTAL PROTEIN 8.6 6.7 - 8.6 g/dL ALBUMIN 4.4 3.5 - 5.2 g/dL BILIRUBIN TOTAL 1.1 0.3 - 1.2 mg/dL ALKALINE PHOSPHATASE 212 (H) 40 - 129 U/L AST 32 <41 U/L ALT 22 <42 U/L GFR >60 >=60 mL/min/1.73 sq meter ANION GAP 14 8 - 16 mmol/L BRAIN NATRIURETIC PEPTIDE, BNP OR PROBNP Result Value Ref Range PROBNP, N TERMINAL 979 (H) <124 pg/mL TROPONIN BASELINE, 5TH GEN Result Value Ref Range TROPONIN T, BASELINE 5TH GEN <6 <=15 ng/L PROLACTIN Result Value Ref Range PROLACTIN 5.5 4.0 - 15.2 ng/mL LIPASE Result Value Ref Range LIPASE 10 (L) 13 - 60 U/L POC LACTIC ACID Result Value Ref Range LACTIC ACID POC 1.9 <=2.0 mmol/L SPECIMEN SOURCE, GASES POC Blank COMMENT, GASES POC Responsible Clinical Caregiver notified I personally reviewed all images. Iva Joseph PA-C Associated attestation - Ruben Gresham Jr., MD - 11/14/2023 2:40 AM CDT I saw and examined the patient with the ANNA and directed all care. I agree with the note as written, with the addition of the below. 38-year-old nonverbal gentleman who presents with less than 24 hours of increased work of breathingand tachypnea. Per guardian, patient has not demonstrated any signs of abdominal pain or vomiting. He was evaluated in the ED and found to be febrile above 101 and has RSV on respiratory cultures. Vital signs are within normal limits. On exam abdomen is soft, nontender and nondistended. Cartagena sign is negative. White count is 19.9 LFTs are essentially within normal limits except for alk phos being 212 from a baseline of 140s based on previous labs. CT scan shows a distended gallbladder with moderate wall thickening and fat stranding suggesting inflammation. While the CT scan is concerning for acute cholecystitis patient does not clinically demonstrate this. High fevers are likely secondary to respiratory illness. There is no need for right upper quadrant ultrasound as the CT scan provides more than enough information about the state of the gallbladder. Will recommend a 10-day course of antibiotics for gallbladder inflammation but will defer surgery for now given respiratory illness. I spent 35 minutes in the direct care of this patient. Ruben Gresham MD Trauma and General Surgery - [facility] For routine needs from 7am to 5pm, contact the [facility] team signed onto the patient's care team. For urgent needs: [facility] Pager: [phone] [facility] Emergency Phone: documented in this encounter OR Notes * Operative Report - Henok Artis MD - 11/16/2023 6:41 PM CDT Images from the original note were not included. [address] [place] [address] OPERATIVE REPORT PATIENT NAME: Curt Beebe DATE OF : 1985 CSN: [id number] Date of Procedure: 11/16/2023 Pre-operative Diagnosis: Acalculous acute cholecystitis Post-operative Diagnosis: Calculous acute cholecystitis Procedure: Laparoscopic converted to open cholecystocolotomy. Surgeon: Henok Artis MD Metal Burnisher: Jewels Hermosillo MD, and Vijay Ray, ANNA: -- present and necessary for assist in every aspect of case. They provided direct assistance in retraction, mobilization of the gallbladder, suturing, and closure during the procedure. Procedure Details: The patient is a 38 yrs old with autism presented with sepsis and respiratory distress. His workup revealed Strep viridans bacteremia, RSV, and acalculous cholecystitis. A decision was made to proceed with laparoscopic cholecystectomy. The risks, benefits, complications, treatment options, and expected outcomes were discussed with the patient's mother (POA). The possibilities of reaction to medication, pulmonary aspiration, perforation of viscus, bleeding, infection, common bile duct injury, the need for an open procedure were discussed. The patient's mother concurred with the proposed plan, giving informed consent. The patient was taken to Operating Room # 22, identified as Curt Beebe and the procedure verified. A Time Out was held and the above information confirmed. The patient was placed supine after induction of a general anesthetic, an orogastric tube, Venodyne, and a Chavez catheter were placed. The abdomen was prepped and draped . An infraumbilical incision was made. The fascia was incised, 0/Vicryl suture was placed in the fascia. A Burns trocar was placed in the peritoneal cavity and pneumoperitoneum was established at a steady pressure of 15 mmHg. The abdominal cavity visually explored. A 12 mm port was placed in the epigastrium and two 5 mm ports were placed under the right subcostal margin. The patient was positioned to facilitate exposure of the right upper quadrant. The GB was very distended and acutely inflamed. The omentum was adherentto GB. The omentum was taken down with electrocautery. The GB was decompressed after aspiration of thick dark bile. The structures of the triangle of Calot was difficult to identify due to severe inflammation. At this point a decision was made to convert into an open procedure. The infraumbilical fascia was closed with 0-Vicryl suture.A skin incision was made in the right quadrant connecting the previously placed incisions in the epigastric and right upper quadrant. The fascia and muscles were divided using electrocautery. A Book sergey retractor was placed. The GB was mobilized from the fundus towards the infundibulum using electrocautery and blunt dissection. During mobilization of the GB, we entered in the GB lumen and identified stones. After mobilization of the infundibulum, the cystic artery and cystic ducts were identified. The cystic artery andthe cystic duct were divided after clips were placed in these structures. After GB was removed, we identified bleeding in the GB fossa that was controlled with bhanu seal, surgicel, and electrocautery. The GB fossa was irrigated with saline. A 19 Zackary drain was placed at the subhepatic space and secured to the skin with 3-0 Nylon suture. The fascia and muscles were closed in two layers using looped Maxon suture x 2. The skin incision was closed with helen. The infraumbilical skin incision was closed with 4-0 Monocryl suture. Dry dressing were placed at the incision sites. The patient tolerated the procedure well and was transferred to the PACU in stable condition. Instrument, sponge, and needle counts were correct prior to closure and at the conclusion of the case. Patient transferred to PACU in stable condition. Findings: Acute calculus cholecystitis Estimated Blood Loss: less than 100 ml Drains: Zackary drain x 1 Specimens: ID Type Source Tests Collected by Time A : gallbladder Tissue Gallbladder PATHOLOGY Henok Artis MD 11/16/2023 223 Implants: Implant Name Type Inv. Item Serial No. Machine Feed Operator Lot No. LRB No. Used Action AGENT HEMOSTAT SURGICEL 4X8IN 1952S - [id number] Hemostatic AGENT HEMOSTAT SURGICEL 4X8IN 1952S [employer] [id number] N/A 1 Implanted AGENT HEMOSTAT SURGICEL 4X8IN 1952S - SNA Hemostatic AGENT HEMOSTAT SURGICEL 4X8IN 1952S NA [employer] [id number] N/A 1 Implanted HEMOSTATIC SURGIFLO 8ML W/ THROMBIN 2994 - SNA Hemostatic HEMOSTATIC SURGIFLO 8ML W/ THROMBIN 2994 NA [employer] [id number] N/A 1 Implanted AGENT HEMOSTAT SURGICEL 4X8IN 1952S - SNA Hemostatic AGENT HEMOSTAT SURGICEL 4X8IN 1952S NA [employer] [id number] N/A 1 Implanted Complications: None; patient tolerated the procedure well. Henok Artis MD * Anesthesiology - Trevor Velazco MD - 11/16/2023 4:53 PM CDT Curt has vagal nerve stim implanted for seizure control. Spoke to Dr Driss Noble [facility] neurologist. Stated nothing needs to be done to device periop including postprocedure interrogation. Spoke twice to him. Device wand can be place over implant to deactivate if necessary . Device info [employer] model 1000, serial number [id number] . documented in this encounter ED Notes * Fior Kumari RN - 11/14/2023 1:22 AM CDT Pt had seizure that lasted 1min long. Pt medicated per APR with IV ativan. Siderails padded. Okay to go to ready IP bed a this time per Dr. Cote. * Fior Kumari RN - 11/13/2023 10:28 PM CDT IVF bolus started per APR. 2H trop collected and sent to lab. Pt caregiver remains at bedside. Pt remains running fever of 101.2*F oral, Dr. Cote updated on this. Pt and pt caregiver decline any further needs at this time. Call light in reach. Will continue to assess. * Fior Kumari RN - 11/13/2023 7:00 PM CDT Bedside report received from MAURO Sierra. Pt resting in stretcher. Patient remains on continuous cardiac monitoring, intermittent blood pressure and pulse oximetry. Family member at bedside. Pt and pt family member deny any further needs at this time. Will continue to assess. * Santi Marroquin RN - 11/13/2023 6:54 PM CDT Chief Complaint Patient presents with Fever 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 Pt is non-verbalat baseline. Staff denies any recent exposure to illness. Pt is resting and does not appear to be in distress. PT tolerated iv start. * Gilberto Cote DO - 11/13/2023 6:09 PM CDT HISTORY OF PRESENT ILLNESS Documented Triage Chief Complaint: Fever 6:09 PM: Curt Beebe is a 38 y.o. male with a history of ADHD, autism, seizure disorder, static encephalopathy, and tremors of nervous system, who presents to the Emergency Department with complaints of rapid and shallow breathing, and a cough. Patient's caregiver noticed these symptoms, along with the patient not acting like himself . Otherassociated symptoms include straining/grunting noises made by the patient, and loss of appetite andthirst that began today. The patient had a slight fever (101.4) upon arrival. Patient's caregiver denies any recent COVID exposure. The patient lives in a snf and is nonverbal. Physician(s): Gulshan Mena DO History provided by: A caregiver [facility] HISTORY LIMITED BY: nonverbal. Arrived by: EMS Arrived from: Other PAST MEDICAL HISTORY REVIEWED MEDICAL: Patient has [...] pr unlisted procedure dentoalveolar structures (N/A, 10/20/2014); and pr unlisted procedure dentoalveolar structures (N/A, 12/06/2016). ALLERGIES Amoxicillin, Carbamazepine, Penicillins, and Phenytoin sodium PHYSICAL EXAM INITIAL VS BP: (!) 155/92 (11/13/23 180), Heart Rate: 67 bpm (11/13/231803), Resp: 24 (11/13/231803), Pulse: 67 (11/13/231803), Temp: (!) 101.4 ??F (38.6 ??C) (11/13/231805), Temp src: Oral (11/13/231805), SpO2: 98 % (11/13/231803), Height: (not recorded), Weight: 79.4 kg (175 lb) (11/13/231803), BMI ( Calculated): (not recorded) No LMP for male patient. Physical Exam Vitals and nursing note reviewed. Constitutional: General: He is not in acute distress. Appearance: He is not diaphoretic. HENT: Head: Normocephalic and atraumatic. Nose: Nose normal. Mouth/Throat: Mouth: Mucous membranes are dry. Eyes: General: Right eye: No discharge. Left eye: No discharge. Conjunctiva/sclera: Conjunctivae normal. Pupils: Pupils are equal, round, and reactive to light. Neck: Thyroid: No thyromegaly. Vascular: No JVD. Trachea: No tracheal deviation. Cardiovascular: Rate and Rhythm: Normal rate and regular rhythm. Heart sounds: No murmur heard. No friction rub. Gallop present. S3 sounds present. Pulmonary: Effort: Pulmonary effort is normal. No respiratory distress. Breath sounds: No stridor. No rales. Abdominal: General: Bowel sounds are normal. There is no distension. Palpations: Abdomen is soft. There is no mass. Tenderness: There is no abdominal tenderness. There is no rebound. Musculoskeletal: General: No tenderness. Normal range of motion. Cervical back: Normal range of motion and neck supple. Lymphadenopathy: Cervical: No cervical adenopathy. Skin: General: Skin is warm and dry. Findings: No erythema or rash. Neurological: Mental Status: He is alert and oriented to person, place, and time. Motor: No abnormal muscle tone. DIAGNOSTICS LAB: RESPIRATORY PATHOGEN PCR PANEL - Abnormal Result Value COVID-19 PCR Not Detected Respiratory syncytial virus by PCR Detected (*) CBC WITH DIFFERENTIAL - Abnormal WBC 19.9 (*) RBC 4.39 (*) HEMOGLOBIN 14.0 HEMATOCRIT 41.5 MCV 94.5 MCH 31.9 MCHC 33.7 RDW 13.4 RDW-STDEV 47.4 PLATELETS 281 MPV 10.1 NEUTROPHILS 82 LYMPHOCYTES 5 MONOCYTES 12 EOSINOPHILS 0 BASOPHILS 0 IMMATURE GRANULOCYTES 1 NEUTROPHIL ABSOLUTE 16.39 (*) LYMPHOCYTE ABSOLUTE 0.94 MONOCYTE ABSOLUTE 2.37 (*) EOSINOPHIL ABSOLUTE 0.02 BASOPHILS ABSOLUTE 0.03 IMMATURE GRANULOCYTES ABSOLUTE 0.14 (*) COMPREHENSIVE METABOLIC PANEL - Abnormal SODIUM 134 (*) POTASSIUM 4.3 CHLORIDE 99 CO2 21 (*) CALCIUM 10.0 BUN 17 CREATININE 0.80 GLUCOSE 165 (*) TOTAL PROTEIN 8.6 ALBUMIN 4.4 BILIRUBIN TOTAL 1.1 ALKALINE PHOSPHATASE 212 (*) AST 32 ALT 22 GFR >60 ANION GAP 14 BRAIN NATRIURETIC PEPTIDE, BNP OR PROBNP - Abnormal PROBNP, N TERMINAL 979 (*) LIPASE - Abnormal LIPASE 10 (*) C-REACTIVE PROTEIN - Abnormal CRP 266.0 (*) TROPONIN BASELINE, 5TH GEN - Normal TROPONIN T, BASELINE 5TH GEN <6 TROPONIN 2 HR, 5TH GEN - Normal TROPONIN T, 2 HR 5TH GEN 6 PROLACTIN - Normal PROLACTIN 5.5 BLOOD CULTURE BLOOD CULTURE BLOOD CULTURE BLOOD CULTURE URINALYSIS WITH REFLEX MICROSCOPIC TROPONIN 6 HR, 5TH GEN COMPREHENSIVE METABOLIC PANEL CBC WITH DIFFERENTIAL POC LACTIC ACID LACTIC ACID POC 1.9 SPECIMEN SOURCE, GASES POC Blank COMMENT, GASES POC Responsible Clinical Caregiver notified POC LACTIC ACID RADIOLOGY: CT CHEST ABDOMEN PELVIS WO CONT Radiologist Impression IMPRESSION: 1. Mild right middle and lower [...] of cholecystitis. DICTATION LOCATION: Location 1 - [facility] EKG: As interpreted by me: Sinus rhythm 66 regular, nonspecific T waves. PROCEDURES Procedures MEDICAL DECISION MAKING AND PLAN OF CARE --On initial evaluation, saw and examined the patient. Discussed plan for labs, EKG, and imaging. Patient understands and agrees with the plan. 10:48 PM: D/w surgery ANNA who will consult. 10:54 PM: Discussed with Rigo ANNA for [facility] Hospitalist, who agrees with admission. 11:10 PM: Updated patient on results, diagnosis, and the plan for admission. Patient agrees with the plan. The opportunity for questions was given and questions were answered to the patient's satisfaction. All questions and concerns have been addressed. ED provider and ED nurse verbally discussed patient plan of care at this time. Medical Decision Making Summary: 38 y/o male with a history of nonverbal autism presents with a fever. Labs show leukocytosis. Imaging showed cholecystitis. EKG showed normal sinus rhythm of 66, nonspecific T waves. Hospitalist accepts for admission. Surgery will consult. Differential diagnosis includes, but is not limited to, rsv cholecystis. By virtue of history and physical, some of these diagnoses can be excluded. Imaging was interpreted by me and notable for CT abdomen pelvis with cholecystitis. Non-ED notes reviewed: 11/06/23 visit. Additional information obtained from independent historian, Caregiver. The following social determinants of health potentially complicated the patient's course and were considered in my plan of care: Transportation needs Amount and/or Complexity of Data Reviewed Independent Historian: caregiver External Data Reviewed: ECG and notes. Labs: ordered. Decision-making details documented in ED Course. Radiology: ordered and independent interpretation performed. Decision-making details documented in ED Course. ECG/medicine tests: ordered and independent interpretation performed. Decision- making details documented in ED Course. Risk OTC drugs. Prescription drug management. Decision regarding hospitalization. MDM Consults: hospitalist and general/trauma surgery Medications Administered During the ED Stay from 11/13/2023 1803 to 11/14/2023 0103 Date/Time Order Dose Route Action 11/13/20233 CDT sodium chloride 0.9% infusion -- IV Not Given 11/14/2023 0018 CDT sodium chloride 0.9% infusion -- IV New Bag 11/13/20232219 CDT sodium chloride 0.9% infusion -- IV New Bag 11/13/20232219 CDT sodium chloride 0.9% bolus solution 500 mL 500 mL IV Bolus 11/14/2023 0019 CDT aztreonam (AZACTAM) 1,000 mg in sodium chloride 0.9% 50 mL IVPB (MBP) 1,000 mg IV New Bag 11/14/2023 0043 CDT acetaminophen (TYLENOL) tablet 975 mg 975 mg Oral Not Given . 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 See after visit summary for patient education on discharged patients. ED Disposition ED Disposition Admit Condition Stable User Gilberto Cote DO Date/Time SatNov 13, 2023 10:27 PM Comment -- ATTESTATION STATEMENTS This note has been prepared by Kimberley Thacker and Kimberley Tucker acting as a scribe for Gilberto Cote DOon 11/13/2023 at 11:11 PM. The scribe's documentation has been prepared under my direction and personally reviewed by me, Gilberto Cote DO, in its entirety on 11/14/23 at 1:03 AM. I confirm that the note above accurately reflects all work, treatment, procedures, and medical decision making performed by me. 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] Gilberto Cote DO 11/13/2023 9:28 PM Seizure disorder, complex partial, with intractable epilepsy [G40.219] Gilberto Cote DO 11/13/2023 9:28 PM Leukocytosis, unspecified type [D72.829] Gilberto Cote DO 11/13/2023 9:28 PM RSV infection [B33.8] Gilberto Cote DO 11/14/2023 12:23 AM documented in this encounter Miscellaneous Notes * Home Health - Maura Paris RN - 11/28/2023 10:07 AM CDT Home Health FINAL arrangements Home Care Agency: [facility] Home Health [facility] Agency Rep: Deborah Anticipated Start of Care Date: 12/01/23 Spoke with Deborah is calling the [facility] to let them know the details. Additional Comments: * Care Plan - Gladys Mnedoza RN - 11/28/2023 6:15 AM CDT Bladder scan this morning was 310 mL. Pt voided around 2100 last night, very little after that. Hospitalist notified, did not receive any message back. Assumed care from 2300. Pt unable to verbalize needs. No signs of pain or distress noted. Clonidine patch removed from behind right ear. Abd incision dry and intact, abd binder on. Externalcath on. Turns continued. Bed alarm on. Rested well. * Care Plan - Concepcion Sahu RN - 11/27/2023 2:39 PM CDT Pain has been well controlled this shift. Patient tolerating diet well, caregiver from facility at bedside. Problem: Pain, Potential/Actual Goal: Verbalizes/displays acceptable comfort level or baseline comfort level Description: Outcome: Progressing Problem: Musculoskeletal Goal: Achieve optimal musculoskeletal function by discharge or maintain baseline function Outcome: Progressing Problem: Gastrointestinal Goal: Achieve optimal gastrointestinal function by discharge or maintain baseline function Outcome: Progressing * Therapy Progress Note - Lyric Sevilla, Occupational Therapist - 11/27/2023 12:24 PM CDT Recommend: Post acute care;Will tolerate 3 hours of therapy (11/27/23 7095) Recommendations were made on today's assessment. Additional recommendations will be based on patient's progress in therapy. Equipment Recommended at discharge: To be determined (11/17/23 1234) Additional Adaptive Equipment Recommended: none at this time S: Patient agrees to therapy on this date. The patient is non-verbal, however agreeable to therapy session. No c/o of pain as observed through facial expression O: Cognition/ Perception: Alert and oriented x person only. Follows simple one step commands inconsistently during tasks. Skin Integrity: No skin breakdown in visible areas observed, RN following Weight Bearing: No restrictions Precautions: Fall; abdominal 2/2 to abdominal incision FUNCTIONAL ACTIVITIES Grooming: Attempted to complete face washing task, however the patient throws the wash cloth on theground, does not appear to want to wash his face at this time. Mod A for hand over hand assistance to hold comb and brush hair while seated at the EOB. UE Dressing: Mod A to adjust hospital gown while seated at the EOB LE Dressing: Max A to don socks at the EOB due to decreased functional reach and balance Bed Mobility: Mod A X 2 to move supine > sit at the EOB. Assistance needed to raise trunk and lower LE's to the EOB in preparation for functional activity. Mod tactile cues for sequencing through bed mobility tasks. Min A for dynamic sitting balance to complete functional asks at the EOB. [facility] Daily Activity How much help from another person does the patient currently need? Score 1. Putting on and taking off regular lower body clothing? 2 - A lot (max to mod assist) 2. Bathing (including washing, rinsing, drying)? 2 - A lot (max to mod assist) 3. Toileting, which includes using toilet, bedpan or urinal? 2 4. Putting on and taking off regular upper body clothing? 2 - A lot (max to mod assist) 5. Taking care of personal grooming such as brushing teeth? 3 - A little (supervision to min assist) 6. Eating meals? 3 - A little (supervision to min assist) Total score 14/24 Scale: 1 - Total - requires total assistance, or cannot do at all 2 - A lot - requires a lot of help (max to mod assist), can use assistive devices 3 - A little - requires a little help (supervision, min assist) can use assistive devices 4 - None - does not require any help and does the activity independently, can use assistive devices Education: Role of OT, d/c planning, transfer training, reinforcement of education needed Positioning after tx: Patient repositioned in supine w/ bed alarm on, call light in reach, tray table in reach. senior living employee present for session. Other: bed alarm on A: Response to treatment: progressing towards goals P: Continue 2-5x/wk at bedside for: ADL Training, Functional Mobility Training, UE ROM/Strengthening, Patient Education, Cognition/Perception unless change in status [facility] Plan of Care developed, as indicated by OT assessment and patient's current status. Additional Discharge Information: none Please refer to plan of care for updates on goals. Zone #: [id number] * Care Plan - Yuliana Rincon, Dental Surgeon - 11/27/2023 12:03 PM CDT Problem: Physical Mobility, Impaired Goal: Mobility goal: Improve ambulation by discharge Description: Patient will ambulate 100 feet on level surface, using no assistive device, with independence so patient can navigate discharge environment. Outcome: Progressing Recommend: Post acute care;Will tolerate 3 hours of therapy (11/27/23 1055) Recommendations were made on today's assessment. Additional recommendations will be based on patient's progress in therapy. Equipment to be issued at discharge: DME: To be determined (11/27/23 3205) S: Patient agreeable to therapy. Pt non verbal, did not appear to be in pain O: Cognition/ Perception: Alert and followed some commands, non verbal as prior to arrival Weight Bearing: full Precautions: Fall, abdominal would benefit from binder Exercises: Bilateral LE A-AROM x 10 reps, sitting Type: Sitting exercises: hip flexion, hip abduction/adduction, Long arc quads, gluteal sets, ankle pumps --LE exercises performed to increase ROM, increase strength to promote independence with functionalmobility and gait. Therapist providing necessary assistance and/or cueing for proper mechanics and symptom management. MOBILITY ASSESSMENT Bed Mobility: supine<>sit Min-Mod A of 2 for scooting, lowering, lifting B LE's, lifting/lowering trunk, boosting to head of bed, scooting to edge of bed, lacks initiation Transfers: sit<>stand from bed Mod A of 2 w/ hand hold assist of 2, pt unable to take steps, forward flexed posture, posterior lean [facility] AM-PAC Basic Mobility How much help from another person does the patient currently need? Score 1. Turning from your back to your side while in a flat bed without using bedrails? 1 - Total assistor cannot do at all 2. Moving from lying on your back to sitting on the side of a flat bed without using bedrails? 1 - Total assist or cannot do at all 3. Moving to and from a bed to a chair (including a wheelchair)? 1 - Total assist or cannot do at all 4. Standing up from a chair using your arms (e.g., wheelchair, or bedside chair)? 1 - Total assist or cannot do at all 5. Walking in hospital room? 1 - Total assist or cannot do at all 6. Climbing 3-5 steps with a railing? 1 - Total assist or cannot do at all Total score 08/04 Scale: 1 - Total - requires total assistance, or cannot do at all 2 - A lot - requires a lot of help (max to mod assist), can use assistive devices 3 - A little - requires a little help (supervision, min assist) can use assistive devices 4 - None - does not require any help and does the activity independently, can use assistive devices Education: transfer Other: sat edge of bed Min-SBA due to leaning R, snf employee present for session Positioning after tx: pt repositioned in supine w/ bed alarm on, call light in reach, tray table inreach A: Response to treatment: Progressing towards goals P: Continue PT 2-5x/wk at bedside for Transfer training, Gait training, Exercises, Balance training, unless change in status or patient is discharged from the facility. Plan of Care developed, as indicated by PT assessment and patient's current status. Please refer to plan of care for updates on goals. Zone #: [id number] * Care Plan - Merrill Soliman MSW - 11/27/2023 10:25 AM CDT [place] Discharge Planning Expected Discharge Date Nov 26, 2023 Plan Discharge To: (Facility) (11/17/23 6020) Comment: 10:20 AM Placed call to Zeferino luciano requesting call back 10:25 AM Placed call to Zeferino Booth to discuss pt discharge plans. Karla stated she was unsure if Destini had reviewed DC Summary for the pt. Karla stated that she or Sally and Destini WADE plan on seeing pt in the hospital to confirm whether he would be able to return. SW informed Karla pt is medicallyready for discharge and provided call back number at Karla's request. 1100 Met with Destini WADE and Sally Photo Cartographer at [facility] in pt room at bedside to discuss DC. [facility] staff requested the following; -DC summary be updated to reflect DC of abx medication -Naproxen order be changed from prn to scheduled -Clonidine patch be removed prior to dc -Bandages on pt's feet be removed -Abdominal binder be ordered - Observe pt transfer with therapy from bed w/gait belt. 3:22 PM Pt DC summary updated to reflect changes in medications, Clonidine patch due to be removed 11/27, bandages on pt's feet may be removed prior to DC, abdominal binder to be delivered by [employer], and [facility] staff have observed pt transfer using gait belt with therapy staff. Referrals Status: Durable Medical Equipment - Accepted Preferred Pharmacy: [facility] - [facility], [place] - [address], [address] Patient / Family Communications Resources Provided Transportation Plan Merrill SHAFER Care Management [phone] Hrs - Saturday 8am - 6pm * Care Plan - Lincoln Paez RN - 11/27/2023 3:11 AM CDT Pt remains in bed through the night. Due to him being non-verbal, it is difficult to understand hisneeds. Meds given per MAR and mixed w/ pudding. Pt has been incontinent x 2 overnight w/ male suction catheter in place. Seizure precautions in place. Pt was displaying seizure like activity and was then becoming aggressive, ativan given. Bed low and locked with alarm in place. VSS on room air, no tele. Problem: Pain, Potential/Actual Goal: Verbalizes/displays acceptable comfort level or baseline comfort level Description: Outcome: Progressing Problem: Safety/Fall Goal: Safety/Fall: Absence of fall, injury, harm during hospitalization Description: Absence of/reduce fall risk during current hospitalization related to: 1. History of falls 2. Mobility deficits 3. Medications 4. Mental status/LOC/awareness 5. Toileting needs 6. Volume/electrolyte status 7. Communication/sensory 8. Behavior Outcome: Progressing Problem: Cognitive/Perceptual/Neuro Goal: Achieve optimal cognitive/perceptual/neurological function by discharge or maintain baseline function Outcome: Progressing * Care Plan - Pretty Gonsalves RN - 11/26/2023 6:37 PM CDT Transfer from [facility], arrived to room 6301,patient alert but unable to verbalized. Eroded coccyx noted, mepilex applied. Heels elevated on pillows and repositioned to left side. * Care Plan - Tammy De Souza MSW - 11/26/2023 10:40 AM CDT FERNANDO talked to nurse AMARI with snf and plastics fabrication supervisor. They requested clinicals and DC summary. FERNANDO faxed, SW informed mother of DC, no concerns. She is still working on [employer] anna, aware he can get PT/OTadded to if completed. Nurse AMARI is working to figure out transportation for patient. 1:00PM FERNANDO called house nurse CM about transport arrangements. They said they still haven't receivedclinicals and need to review meds. FERNANDO told them she faxed clinicals this morning with success but will resent at least DC summary and med list again. Patient has not been cleared by snf staff to return to facility. Facility to transport vs ambulance pending mobility. SONI Garza [id number] Problem: Discharge Planning Goal: Identify discharge needs upon admission and through discharge Description: 11/26/2023 1011 by Tammy De Souza MSW Outcome: Progressing * Care Plan - Tammy De Souza MSW - 11/26/2023 10:11 AM CDT FERNANDO left message with [facility] case work aide, mix house operator,house nurse case work aide, and mother to informof DC. Left voicemail's for all. SONI Garza [id number] Problem: Discharge Planning Goal: Identify discharge needs upon admission and through discharge Description: Outcome: Progressing * Care Plan - Mihir Chambers Physical Therapist - 11/25/2023 10:53 AM CDT Problem: Physical Mobility, Impaired Goal: Mobility goal: Improve transfer ability by discharge Description: Patient will transfer supine to sit and bed to/from chair with independence. Outcome: Progressing Flowsheets (Taken 11/25/2023 1053) Therapy Plan of Care: 2-5x/wk Mon: X Total Treatment Time (min): 19 PT Current Discharge Recommendation: Post acute care Will tolerate 3 hours of therapy PT Recommended DME: To be determined PT Treatment Start Time: 1053 PT Treatment Stop Time: 1111 Recommend: Post acute care;Will tolerate 3 hours of therapy (11/25/23 1053) Recommendations were made on today's assessment. Additional recommendations will be based on patient's progress in therapy. Equipment to be issued at discharge: DME: To be determined (11/25/231052) S: OK to see per RN. Patient received supine with HOB partially elevated, connected to EEG, telemetry, and male external catheter. O: Cognition/ Perception: Alert, nonverbal, unable to follow commands, enjoys halloween pumpkins and balloon toss Weight Bearing: No restrictions listed Skin Integrity: Consistent with EMR Precautions: Fall, seizure, contact, droplet Exercises: Bilateral LE PROM x 5 reps - supine ankle DF/PF and knee flexion/extension (pt only tolerated 5 reps before withdrawing legs away from therapist's touch, and was unable to follow commands to complete actively) --LE exercises performed to increase ROM, prevent loss of joint mobility to promote independence with functional mobility and gait. Therapist providing necessary assistance and/or cueing for proper mechanics and symptom management. MOBILITY ASSESSMENT Bed Mobility: - Max A for BLE advancement toward EOB to initiate supine > sit EOB. Pt initially assisted with reaching arms toward bed rail to roll, but then withdrew BLE. PT provided encouragement for participation, however pt continued withdrawing BLE with further attempts to sit EOB. Pt sat in long sittingin bed for ~5 min and intermittently participated in balloon toss. Mod A for long sitting to supinefor controlled descent of trunk - Max A to roll L/R for placement of new elizabeth pad and pillow under L hip for gluteal offloading - Max A x2 to boost toward HOB for improved therapeutic positioning Transfers, Gait: Unable to progress at current functional level [facility]-PAC Basic Mobility How much help from another person does the patient currently need? Score 1. Turning from your back to your side while in a flat bed without using bedrails? 2 - A lot (max to mod assist) 2. Moving from lying on your back to sitting on the side of a flat bed without using bedrails? 2 - A lot (max to mod assist) 3. Moving to and from a bed to a chair (including a wheelchair)? 2 - A lot (max to mod assist) 4. Standing up from a chair using your arms (e.g., wheelchair, or bedside chair)? 2 - A lot (max tomod assist) 5. Walking in hospital room? 1 - Total assist or cannot do at all 6. Climbing 3-5 steps with a railing? 1 - Total assist or cannot do at all Total score 10/24 Scale: 1 - Total - requires total assistance, or cannot do at all 2 - A lot - requires a lot of help (max to mod assist), can use assistive devices 3 - A little - requires a little help (supervision, min assist) can use assistive devices 4 - None - does not require any help and does the activity independently, can use assistive devices Education: PT purpose and POC, safety with functional mobility, importance of activity and exerciseduring hospitalization Positioning after tx: Patient positioned in bed with bed alarm on/patient educated on alarm, all lines intact, call light in reach, B UE/LEs elevated for comfort and maintained skin integrity, all needs met, RN aware A: Response to treatment: Progressing towards goals P: Continue PT 2-5x/wk at bedside for Transfer training, Gait training, Exercises, Balance training, unless change in status or patient is discharged from the facility. Plan of Care developed, as indicated by PT assessment and patient's current status. Please refer to plan of care for updates on goals. Zone #: [phone] Mihir Chambers, PT, DPT * Care Plan - Lyndon Gupta, DO - 11/24/2023 6:41 PM CDT Notified by patient's nurse of patient possibly having absence seizure. Nurse had to sternal rub toget patient to arouse. Patient is now arousable however appears more lethargic. Met team called to assess patient. Patient was arousable during their exam. ABG, lactic acid, CBC, BMP, prolactin, CT of head without contrast and EEG ordered for further evaluation. It was also brought to my attention this evening that today was the first day the patient actually received all of his antiepileptic medication. This may also contribute to drowsiness. * Care Plan - Kanika Feliz GN - 11/24/2023 2:01 PM CDT Problem: Pain, Potential/Actual Goal: Verbalizes/displays acceptable comfort [...] or maintain baseline function Outcome: Progressing Problem: Cardiovascular Goal: Achieve optimal cardiovascular function by discharge or maintain baseline function Outcome: Progressing Problem: Peripheral Neurovascular Goal: Achieve optimal peripheral neurovascular function by discharge or maintain baseline function Outcome: Progressing Problem: Respiratory Goal: Achieve optimal respiratory function by discharge and/or maintain baseline function Outcome: Progressing Problem: Coping (Adult) Goal: Demonstrates effective coping mechanisms and psychosocial functioning throughout hospitalization Outcome: Progressing Problem: Violence, Potential/Actual Goal: Residential: Demonstrates ability to control behavior as evidenced by reduction of violence by discharge. Outcome: Progressing Problem: Physical Mobility, Impaired Goal: Mobility goal: Improve transfer ability by discharge Description: Patient will transfer to/from toilet with minimal assistance. Outcome: Progressing Problem: Self-Care Deficit Goal: Self care goal: Improve ability to perform self care activities by discharge Description: Patient will require minimal assistance with grooming/bathing with adaptive equipment. Outcome: Progressing Problem: Physical Mobility, Impaired Goal: Mobility goal: Improve transfer ability by discharge Description: Patient will transfer supine to sit and bed to/from chair with independence. Outcome: Progressing Goal: Mobility goal: Improve ambulation by discharge Description: Patient will ambulate 100 feet on level surface, using no assistive device, with independence so patient can navigate discharge environment. Outcome: Progressing Problem: Nutrition/Endocrine Goal: Achieve optimal nutrition and fluid status to meet metabolic needs throughout hospitalization Outcome: Progressing Problem: Spiritual/Cultural Goal: Identify spiritual/cultural needs to support beliefs and values throughout hospitalization Outcome: Progressing * Care Plan - Lyndon Gupta DO - 11/24/2023 10:57 AM CDT I called the patient's mother Yuliana Beebe this morning and gave her an update on patient's medical condition and current treatment plan. Patient's mother requested for patient to be placed on medication similar to Toradol scheduled. Patient's mother stated that patient is not able to communicate very well whenever he has pain. Patient's mother did agree with plan to start Naprosyn twice daily. * Care Plan - Kanika Feliz GN - 11/23/2023 1:01 PM CDT Problem: Pain, Potential/Actual Goal: Verbalizes/displays acceptable comfort [...] or maintain baseline function Outcome: Progressing Problem: Cardiovascular Goal: Achieve optimal cardiovascular function by discharge or maintain baseline function Outcome: Progressing Problem: Peripheral Neurovascular Goal: Achieve optimal peripheral neurovascular function by discharge or maintain baseline function Outcome: Progressing Problem: Respiratory Goal: Achieve optimal respiratory function by discharge and/or maintain baseline function Outcome: Progressing Problem: Coping (Adult) Goal: Demonstrates effective coping mechanisms and psychosocial functioning throughout hospitalization Outcome: Progressing Problem: Violence, Potential/Actual Goal: Remote Control Mirror Installer: Demonstrates ability to control behavior as evidenced by reduction of violence by discharge. Outcome: Progressing Problem: Physical Mobility, Impaired Goal: Mobility goal: Improve transfer ability by discharge Description: Patient will transfer to/from toilet with minimal assistance. Outcome: Progressing Problem: Self-Care Deficit Goal: Self care goal: Improve ability to perform self care activities by discharge Description: Patient will require minimal assistance with grooming/bathing with adaptive equipment. Outcome: Progressing Problem: Physical Mobility, Impaired Goal: Mobility goal: Improve transfer ability by discharge Description: Patient will transfer supine to sit and bed to/from chair with independence. Outcome: Progressing Goal: Mobility goal: Improve ambulation by discharge Description: Patient will ambulate 100 feet on level surface, using no assistive device, with independence so patient can navigate discharge environment. Outcome: Progressing Problem: Nutrition/Endocrine Goal: Achieve optimal nutrition and fluid status to meet metabolic needs throughout hospitalization Outcome: Progressing Problem: Spiritual/Cultural Goal: Identify spiritual/cultural needs to support beliefs and values throughout hospitalization Outcome: Progressing * Home Health - Zeynep Mohan RN - 11/22/2023 4:23 PM CDT HOME HEALTH- HOSPITAL CONSULT - PENDING ARRANGEMENT Spoke with Yuliana Benoitb, mother, regarding the following recommended home health services. MD/REPAIR TECH in agreement to sign home care orders: Gulshan Mena DO Recommended Skilled Disciplines: [x] SN [] PT [] OT [] ST [] AIDE [] ARTILLERY SPECIALIST Place of Service: [x] Home Care will take place at permanent address [facility] in [facility] [] Home Care will take place at alternate address [address] SOL[address] disclosure of ownership discussed, list of area agencies offered for review [] Declined list of agencies for review Patient has requested consideration from the following agencies First Choice: [employer] [facility] Second Choice: First Available Agency Additional Comments: Will be adding PT/OT after being approved for [employer]. Call [phone] with questions * Care Plan - Nael Cote, Occupational Therapist - 11/22/2023 10:38 AM CDT Problem: Self-Care Deficit Goal: Self care goal: Improve ability to perform self care activities by discharge Description: Patient will require minimal assistance with grooming/bathing with adaptive equipment. Outcome: Progressing Recommend: Post acute care (11/22/23 8993) Recommendations were made on today's assessment. Additional recommendations will be based on patient's progress in therapy. Equipment Recommended at discharge: To be determined (11/22/23 4486) Additional Adaptive Equipment Recommended: to be determined S: Patient agrees to therapy O: Cognition/ Perception: non-verbal, no real command following, sleepy and groggy this AM, lookingmore alert today Skin Integrity: No signs of breakdown noted Weight Bearing: No restrictions Precautions: Fall Exercises: Bilateral UE AAROM, PROM x 15 reps ---UE Exercises: Shoulder flex/extension and abduction/adduction, elbow flex/extension, pronation/supination, hand/wrist ROM. UE exercises to help improve pts strength, ROM and [place] with selfcare. FUNCTIONAL ACTIVITIES LE Dressing: Max A to don socks Functional mobility: Max A x1 for bed mobility going supine to sitting EOB. Patient tolerates sitting up for about 5 minutes. Patient not interacting much while EOB and remains fairly sleepy and lethargic. Attempted to play with balloons with patient but not hitting balloon back to therapist and then lays himself back down. Patient then max A x1 for bed mobility going sitting to supine for safety [employer] AM-PAC Daily Activity How much help from another person does the patient currently need? Score 1. Putting on and taking off regular lower body clothing? 2 - A lot (max to mod assist) 2. Bathing (including washing, rinsing, drying)? 2 - A lot (max to mod assist) 3. Toileting, which includes using toilet, bedpan or urinal? 2 - A lot (max to mod assist) 4. Putting on and taking off regular upper body clothing? 2 - A lot (max to mod assist) 5. Taking care of personal grooming such as brushing teeth? 2 - A lot (max to mod assist) 6. Eating meals? 2 - A lot (max to mod assist) Total score 12/24 Scale: 1 - Total - requires total assistance, or cannot do at all 2 - A lot - requires a lot of help (max to mod assist), can use assistive devices 3 - A little - requires a little help (supervision, min assist) can use assistive devices 4 - None - does not require any help and does the activity independently, can use assistive devices Education: OT plan of care Positioning after tx: supine in bed Other: bed alarm on, all lines intact, RN aware A: Response to treatment: Progressing towards goals P: Continue 2-5x/wk at bedside for: ADL Training, Functional Mobility Training, UE ROM/Strengthening, Patient Education, Cognition/Perception unless change in status [facility] Plan of Care developed, as indicated by OT assessment and patient's current status. Additional Discharge Information: none Please refer to plan of care for updates on goals. Zone #: [id number] * Care Plan - Delores Aguila Physical Therapist - 11/22/2023 9:47 AM CDT Problem: Physical Mobility, Impaired Goal: Mobility goal: Improve transfer ability by discharge Description: Patient will transfer supine to sit and bed to/from chair with independence. Outcome: Progressing Goal: Mobility goal: Improve ambulation by discharge Description: Patient will ambulate 100 feet on level surface, using no assistive device, with independence so patient can navigate discharge environment. Outcome: Progressing Flowsheets Taken 11/22/2023 1323 Assistive Devices Screening: Gait belt Assistive Devices Used: Gait belt Present Activity: up to chair dangled at bedside Physical Assist/Nonphysical Assist: w/ 1 person assist Taken 11/22/2023 09 Therapy Plan of Care: 2-5x/wk Fri: X Total Treatment Time (min): 24 PT Current Discharge Recommendation: Post acute care Will tolerate 3 hours of therapy PT Recommended DME: To be determined PT Treatment Start Time: 946 PT Treatment Stop Time: 1011 Recommend: Post acute care;Will tolerate 3 hours of therapy (11/22/23946) Recommendations were made on today's assessment. Additional recommendations will be based on patient's progress in therapy. Equipment to be issued at discharge: DME: To be determined (11/22/23946) S: Patient agreeable to therapy. Patient supine in bed with telemetry and external suction catheterintact upon PT entering room. Per RN, patient is appropriate for therapy. Patient denied any pain or discomfort throughout therapy session. O: Cognition/ Perception: Alert and follows 1 step commands, nonverbal throughout session but able to nod yes/no to some questions Weight Bearing: No restrictions Skin Integrity: Consistent with EMR Precautions: Fall, seizure, abdominal, droplet, contact MOBILITY ASSESSMENT Bed Mobility: Supine to sit with HOB slightly raised and mod-max assist x1 for BLE advancement and trunk elevation. Patient required mod assist to scoot hips towards EOB and able to sit with close SBA. Transfers: Sit to stand from EOB with max assist x1 for force production. Patient required mod assist for static standing balance with cues for upright posture. Patient required mod assist to controldescent into recliner. Attempted to engage patient in dynamic sitting balance with balloon toss, however patient fatigued following transfer and did not engage in balloon toss. Gait: Patient ambulated ~4 feet from bed to chair with mod-max assist x1 for steadying using gait belt and BATCH MIXING TRUCK DRIVER. Ambulation distance limited due to bilateral knee buckling and fatigue. --Gait deviations: decreased blake, decreased step length and height, bilateral knee buckling, foot flat contact, very unsteady Stairs: Unable to perform at CLOF Returned to room from 1:51pm - 2:01pm to assist patient back to bed. Sit to stand from recliner with max assist x1 for force production and steadying. Stand pivot transfer from chair to bed with max assist x1 + min assist of another for steadying. Max assist required to control descent onto EOB. Max assist x1 for sit to supine. Max assist x2 to boost up in bed. [facility] Basic Mobility How much help from another person does the patient currently need? Score 1. Turning from your back to your side while in a flat bed without using bedrails? 2 - A lot (max to mod assist) 2. Moving from lying on your back to sitting on the side of a flat bed without using bedrails? 2 - A lot (max to mod assist) 3. Moving to and from a bed to a chair (including a wheelchair)? 2 - A lot (max to mod assist) 4. Standing up from a chair using your arms (e.g., wheelchair, or bedside chair)? 2 - A lot (max tomod assist) 5. Walking in hospital room? 1 - Total assist or cannot do at all 6. Climbing 3-5 steps with a railing? 1 - Total assist or cannot do at all Total score 10/24 Scale: 1 - Total - requires total assistance, or cannot do at all 2 - A lot - requires a lot of help (max to mod assist), can use assistive devices 3 - A little - requires a little help (supervision, min assist) can use assistive devices 4 - None - does not require any help and does the activity independently, can use assistive devices Education: Pt educated on PT role/plan of care and safety during mobility. Other: Patient tolerated therapy session fairly well, although overall mobility limited due to weakness and decreased command following. Positioning after tx: Patient positioned up in chair with chair alarm on/patient educated on alarm,all lines intact, call light in reach, B UE/LEs elevated for comfort and maintained skin integrity,all needs met, heels floated, RN aware A: Response to treatment: Progressing towards goals P: Continue PT 2-5x/wk at bedside for Transfer training, Gait training, Exercises, Balance training, unless change in status or patient is discharged from the facility. Plan of Care developed, as indicated by PT assessment and patient's current status. Additional Discharge Information: Please refer to plan of care for updates on goals. Zone #: [id number] * Care Plan - Tammy De Souza MSW - 11/22/2023 8:11 AM CDT SW attempted to call house nurse case work aide again this morning, unable to reach her. SW did get ahold of [facility] die turner Gayatri and spoke to her about WC deliver. SW informed her that we are aware the house needs 24 hour notice but I was not able to reach anyone yesterday to give them the notice and patient is ready for DC today. SW also left message for patients mother. SONI Garza [id number] Problem: Discharge Planning Goal: Identify discharge needs upon admission and through discharge Description: Outcome: Progressing * Care Plan - Maura Murray RN - 11/22/2023 6:52 AM CDT Sent message to [facility] Hosp.that patient refusing all po meds this am. Betzy RN * Care Plan - Maura Murray RN - 11/21/2023 9:33 PM CDT Explained rationale for meds and all procedures to patient , but patient is nonverbal but does appear to understand Betzy RN * Care Plan - Tammy De Souza MSW - 11/21/2023 3:54 PM CDT SW was bedside with patient, he was more interactive with SW, hitting the balloon, saying balloon. He ate a cookie that his mom made, a pack of fruit snacks, and drank an entire ensure. FERNANDO turned on [email or web address] on computer for patient. SW still waiting to hear back from house staff to schedule DCmeeting. SONI Garza [id number] Problem: Discharge Planning Goal: Identify discharge needs upon admission and through discharge Description: 11/21/2023 1443 by Tammy De Souza MSW Outcome: Progressing * Care Plan - Tammy De Souza MSW - 11/21/2023 2:43 PM CDT FERNANDO called mix house operator, she is not working today. SW called nurse case work aide at the house to schedule meeting for return. SW left message. SW also called [facility] case work aide and also left message to discuss DME orders and return to home. Gayatri said there has to be a meeting help with house staff/nurse CM and hospital SW before patient can return. SONI Garza [id number] Problem: Discharge Planning Goal: Identify discharge needs upon admission and through discharge Description: Outcome: Progressing * Care Plan - Katie Medrano RN - 11/21/2023 10:51 AM CDT Problem: Pain, Potential/Actual Goal: Verbalizes/displays acceptable comfort [...] or maintain baseline function Outcome: Progressing Problem: Cardiovascular Goal: Achieve optimal cardiovascular function by discharge or maintain baseline function Outcome: Progressing Problem: Peripheral Neurovascular Goal: Achieve optimal peripheral neurovascular function by discharge or maintain baseline function Outcome: Progressing Problem: Respiratory Goal: Achieve optimal respiratory function by discharge and/or maintain baseline function Outcome: Progressing Problem: Coping (Adult) Goal: Demonstrates effective coping mechanisms and psychosocial functioning throughout hospitalization Outcome: Progressing Problem: Violence, Potential/Actual Goal: Remote Control Mirror Installer: Demonstrates ability to control behavior as evidenced by reduction of violence by discharge. Outcome: Progressing Problem: Physical Mobility, Impaired Goal: Mobility goal: Improve transfer ability by discharge Description: Patient will transfer to/from toilet with minimal assistance. Outcome: Progressing Problem: Self-Care Deficit Goal: Self care goal: Improve ability to perform self care activities by discharge Description: Patient will require minimal assistance with grooming/bathing with adaptive equipment. Outcome: Progressing Problem: Physical Mobility, Impaired Goal: Mobility goal: Improve transfer ability by discharge Description: Patient will transfer supine to sit and bed to/from chair with independence. Outcome: Progressing Goal: Mobility goal: Improve ambulation by discharge Description: Patient will ambulate 100 feet on level surface, using no assistive device, with independence so patient can navigate discharge environment. Outcome: Progressing Problem: Nutrition/Endocrine Goal: Achieve optimal nutrition and fluid status to meet metabolic needs throughout hospitalization Outcome: Progressing * Treatment Plan - Arleen Amaya RT - 11/21/2023 10:10 AM CDT Images from the original note were not included. [facility] IMS Medication and Flush Protocol- CT and MRI Procedures [facility] Approved by: [facility]-Medical Executive Committee Approval Date: 08/01/2023 ORDERS ARE ENTERED ???PER PROTOCOL?? Enter the protocol in the patient's electronic health record using smartphrase: .imagingctmriprotocol Communication Orders: For ordered imaging procedures requiring intravenous access: Initiate a peripheral IV, if not already in place, and discontinue IV prior to discharge (if outpatient). Enter order if needed: Insert Peripheral IV Bariatric Oral Contrast: Post-surgical bariatric patients will have markedly reduced ability to drink normal quantities of liquid. Four ounces will be the maximum amount or less if the patient cannot comfortably tolerate. Cancel oral contrast if patient is nauseated or vomiting. Water based contrast only. Medication Orders: Local Anesthetic for use to initiate IV ADULT Lidocaine 4% (L.M.X.4) applied topically ONE TIME prior to IV catheter insertion PRN (L.M.X.4 % should be applied 15 minutes prior to procedure) PEDIATRIC Lidocaine 4% (L.M.X.4) applied topically ONE TIME prior to IV catheter insertion PRN (apply 30 minutes prior to procedure) Sucrose 24% (Squirts) given PO prior to IV catheter insertion (administer 1 - 2 minutes prior to procedure) OR Sucrose 24% (Tootsweet; Sweet-Ease) oral solution 0.2 mL oral (apply to tongue on pacifier or clean, gloved finger), ONE TIME 2 minutes prior to painful procedure. May repeat dose x1 PRN to complete procedure. Sodium chloride 0.9% (normal saline) flush 10 mL PRN for saline lock or medication administration. For respiratory distress, initiate oxygen and/or increase O2 to maintain saturation greater than 90% For all invasive procedures: obtain Lidocaine 1% for intra-procedure administration. If Lidocaine 1% unavailable, may substitute Lidocaine 2%. PROCEDURE SPECIFIC CT MEDICATIONS Any exceptions to these contrast protocols must be approved by a Radiologist and documented in the EHR Progress Notes. When multiple medications are listed with the comment ???OR?? them, select the first option until challenges from product availability make this option unavailable. Cystogram (CT Pelvis): Iopamidol (Isovue 300) 61%, 50 mL, diluted with 250mL of sterile NS. Inject Isovue into 250 mL bag of NS. Clamp chavez catheter prior to instilling solution via catheter. Instill up to 300 mL of Isovue and NS solution into bladder via catheter, one time. CT ORAL CONTRAST PROTOCOLS FOR ADULTS Use Iohexol (Omnipaque) 240 mg/mL for CT scan unless patient has a documented allergy to contrast dye. If allergy present, use Barium Sulfate (EZ Paque) for procedure. Iopamidol (Isovue 300) 300mg/ml: 30ml added to 960mL of clear liquid of patient's choice. Preferredroute is oral. May use nasoenteric tube if needed. Utilize the following administration instructions when there is a need to conserve contrast 15 mL of Iopamidol (Isovue 300) split into two cups (7.5 mL in each cup) Dilute as usual with 960 mL of clear liquid of patient's choice (480 mL in each cup) Have patient drink one cup an hour before the test, wait 30 minutes then start to drink the next cup, leaving a little over an inch in the bottom of the second cup. As the technologist is getting thepatient from the waiting room after an hour, have the patient finish the rest of the second cup so it can coat and fill the stomach OR Iohexol (Omnipaque) 240 mg/mL: 50ml added to 960mL of clear liquid of patient's choice. Preferred route is oral. May use nasoenteric tube if needed. Administer 900mL of the diluted Omnipaque 240, orally, one time only. Barium Sulfate (EZ Paque /Vanilla Silq) 96% oral suspension: Preferred route is oral. May use nasoenteric tube if needed. Administer 900mL of barium sulfate, orally, one time only. Bariatric Patient: Post-Surgery to 1 year- 50 mL total volume. NO carbonated liquids lopamidol (Isovue 300) 300 mg/mL: mixed with water. Draw 50 mL of mixed solution for patient. Preferred route is orally. May use nasoenteric tube if needed. OR lohexol (Omnipaque) 240 mg/mL: mixed with water. Draw 50mL of mixed solution for patient. Preferredroute is orally. May use nasoenteric tube if needed. (SUBJECT TO AVAILABILITY) After 1 year- no more than 236 mL (8oz) total volume. NO carbonated liquids. lopamidol (Isovue 300) 300 mg/mL: mixed with water OR lohexol (Omnipaque) 240 mg/mL: mixed with water (SUBJECT TO AVAILABILITY) CT ORAL CONTRAST PROTOCOLS FOR PEDIATRICS Pediatrics = up to age 18 Pediatric Radiologist will approve of one of the following products selected for procedure. Barium Sulfate (EZ Paque) 96% oral suspension: preferred route is oral. May use nasoenteric tube ifneeded. [place] to 3 months Administer up to 90mL of Barium sulfate, orally, one time only 4 months to 1 year old Administer up to 240mL of Barium sulfate, Orally, One Time Only 1 year old to 5 years old Administer up to 360mL of Barium sulfate, Orally, One Time Only 5 years old to 10 years old Administer up to 480mL of Barium sulfate, Orally, One Time Only Over 10 years old Administer up to 600mL of Barium sulfate, Orally, One Time Only Iopamidol (Isovue 300) 300 mg/mL oral solution Dilute 25mL of Iohexol with 480mL of clear liquid of patient's choice. Administer the diluted solution per age as follows: Preferred route is orally. May use nasoenteric tube if needed. Send any remaining diluted Iohexol solution with the patient's nurse to CT Iopamidol (Isovue) 300 mg/ml oral solution age appropriate guidelines [place] Administer 45mL of diluted Iopamidol oral solution, orally every 30 minutes x 2 doses. 1 month to 1 year old Administer 120mL of diluted Iopamidol oral solution, orally every 30 min x 2 doses. 1 year old to 5 years old Administer 180mL of diluted Iopamidol oral solution, orally every 30 min x 2 doses. 5 years old to 10 years old Administer 240mL of diluted Iopamidol oral solution, orally every 30 min x 2 doses. Over 10 years old Administer 245mL of diluted Iopamidol oral solution, orally every 30 min x 2 doses. OR Iohexol (Omnipaque) 240 mg/mL oral solution Dilute 25mL of Iohexol with 480mL of clear liquid of patient's choice. Administer the diluted solution per age as follows: Preferred route is orally. May use nasoenteric tube if needed. Send any remaining diluted Iohexol solution with the patient's nurse to CT Iohexol (Omnipaque) 240mg/ml oral solution age appropriate guidelines [place] Administer 45mL of diluted Iohexol oral solution, orally every 30 minutes x 2 doses. 1 month to 1 year old Administer 120mL of diluted Iohexol oral solution, orally every 30 min x 2 doses. 1 year old to 5 years old Administer 180mL of Iohexol orally every 30 min x 2 doses. 5 years old to 10 years old Administer 240mL of Iohexol orally every 30 min x 2 doses. Over 10 years old Administer 250mL of Iohexol orally every 30 min x [address] RECTAL CONTRAST PROTOCOLS ADULTS: Iopamidol (Isovue) 300 mg/mL: Dilute 30mL of Isovue with 900mL of warm water in an enema bag. Administer the diluted solution rectally via gravity per patient's tolerance, up to 950mLs, one time only. OR Iohexol (Omnipaque) 240 mg/mL: Dilute 50mL of Omnipaque with 900mL of warm water in an enema bag. Administer the diluted solution rectally via gravity per patient's tolerance, up to 950mLs, one time only. CT IV CONTRAST PROTOCOLS for ADULT ADULTS: (If patient is less than 55kg and confirm dose with radiologist) Iopadmidol (Isovue-300): Administer 2.2mL/kg of Iopamidol 61%, intravenously, one time only. See table below for maximum dose, unless otherwise authorized by radiologist. If exam has been completed before the entire dose has been administered, stop the injection. Multiple doses of iodine contrast within a 24-hour period are a risk factor for OSMANY and should be avoided if possible. Emergent or other unusual circumstances where multiple doses of contrast are required in a short interval time should prompt consideration by the referring professional and radiologist to discuss the risks and benefits of contrast media administration. If exam not included in table below, contact radiologist for orders. Procedure Maximum Dose CT Head with Contrast Up to [address] Chest with Contrast Up to [address] Maxillofacial with Contrast Up to [address] Soft Tissue Neck with Contrast CT Chest Abdomen Pelvis with Contrast CT Chest Abdomen with Contrast CT Abdomen Pelvis with Contrast CT Pelvis with Contrast CT Angiogram Examinations (all) CT Soft Tissue Neck and Chest Abdomen Pelvis with Contrast Up to [address] Soft Tissue Neck and Chest with Contrast CT Urogram with Contrast CT IV CONTRAST PROTOCOLS for PEDIATRICS PEDIATRICS: Use weight-based dosing if patient is less than 55kg and confirm dose with radiologist. [place] to 15 years old Administer 2.2mL/kg (to MAX of 80 mL) of Iopamidol (Isovue-300) 61%, intravenously, one time only 15 years old and older Administer 2.2mL/kg (to MAX of 150mL) of Iopamidol (Isovue-300) 61%, intravenously, one time only PROCEDURE SPECIFIC MRI MEDICATIONS: MRI ENTEROGRAPHY: GLUGACON ADMINISTRATION Nurse will enter the following medication orders for MRI Enterography if not otherwise ordered. ADULTS: (patient 18 years or older) If the patient is diabetic, call the radiologist to verify administration of Glucagon For Outpatients: Patient will receive 2 doses of Glucagon one dose 0.5mg IM administered by nurse prior to the MRI exam beginning 2nd dose 0.5mg IV prior to the IV contrast being administered. For Inpatients: Patient will receive 1 dose of Glucagon 1 mg IV, administered by nurse prior to thestarting the MRI exam. PEDIATRICS: If the patient is diabetic call the radiologist to verify administration of Glucagon Outpatient pediatric patient: Pediatric patient weighing 24.9 kg or less should have one dose of Glucagon 0.5mg IM administered by nurse prior to MRI exam beginning. Pediatric patient weighing 25 kg or greater should have one dose of Glucagon 1 mg IM administered by nurse prior to the MRI exam beginning. Inpatient pediatric patient: Pediatric patient weighing 24.9 kg or less should have one dose of Glucagon 0.5 mg IV administered by nurse prior to MRI exam beginning. Pediatric patient weighing 25 kg or greater should have one dose of Glucagon 1 mg IV administered by nurse prior to the MRI exam beginning. MRI UROGRAM: LASIX ADMINISTRATION Nurse will enter the following medication orders for MRI Enterography if not otherwise ordered. ADULTS: Call radiologist with any questions regarding administration of Lasix Lasix 0.1mg per kg with a minimum dose of Lasix 5mg IV being given up to a max dose of Lasix 10mg IV being given. The Lasix should be administered by nurse prior to the IV contrast being administered. (Hold Lasix if: obstruction, anuria and hypersensitivity to furosemide, and electrolyte imbalance or hypotension should be corrected by nurse before administering) MRI IV CONTRAST PROTOCOLS ADULTS: Multihance and Prohance can be used for most MRI scans Prohance should be used primarily. Multihance is useful in specific circumstances as directed by the radiologist or per the appropriate sections established protocols. Group I gadolinium contrast agents shall not be administered. Generally, multiple doses of gadolinium contrast should not be administered within a 24-hour period. In emergent or other unusual circumstances where this is necessary, only Group II agents should beadministered. For Liver Studies: Contact radiologist to determine use of one of the following: Gadobenate Dimeglumine (Multihance) (0.1mmol/0.2mL), Administer 0.1mmol/kg = 0.2mL/kg up to MAX of 20 mL, intravenously, one time only Gadoteridol (Prohance) (0.1mmol/0.2mL), Administer 0.1mmol/kg = 0.2mL/kg up to MAX of 20mL, intravenously, one time only Gadoxetate (Eovist) (2.5 mmol/10mL), Administer 0.025mmol/kg = 0.1mL/kg up to MAX of 10mL, intravenously, one time only PEDIATRICS: Radiologist to determine need for contrast Term neonates up to 2 years: Gadobuterol (Gadavist) (1mmol/mL injection), Administer 0.1mmol/kg = 0.1mL/kg up to MAX of 14mmol=14mL, intravenously, one time only OR Gadobenate Dimeglumine (Multihance) (0.1mmol/mL), Administer 0.1mmol/kg = 0.1mL/kg up to MAX of 14mmol = 14mL, intravenously, one time only 2 years and older Gadobenate Dimeglumine (Multihance) (0.1mmol/0.2mL), Administer 0.1mmol/kg = 0.2mL/kg up to MAX of 20mL, intravenously, one time only OR Gadoteridol (Prohance) (0.1mmol/0.2mL), Administer 0.1mmol/kg = 0.2mL/kg up to MAX of 20mL, intravenously, one time only TABLE 1. ACR Manual Classification of Gadolinium-Based Agents Relative to Nephrogenic Systemic Fibrosis Group I: Agents associated with the greatest number of NSF cases: Gadodiamide (Omniscan?? - [employer]) Gadopentetate dimeglumine (Magnevist?? - [employer]) Gadoversetamide (OptiMARK?? - [employer]) Group II: Agents associated with few, if any, unconfounded cases of NSF: Gadobenate dimeglumine (MultiHance?? - [employer]) Gadobutrol (Gadavist?? - [employer]; Gadovist in many countries) Gadoteric acid (Dotarem?? - Guerbet, Clariscan - [employer]) Gadoteridol (ProHance?? - [employer]) Group III: Agents for which data remains limited regarding NSF risk, but for which few, if any unconfounded cases of NSF have been reported: Gadoxetate disodium (Eovist - [employer]; Primovist in many countries) * Care Plan - Kate Borrego, Physical Therapist - 11/20/2023 4:15 PM CDT Problem: Physical Mobility, Impaired Goal: Mobility goal: Improve transfer ability by discharge Description: Patient will transfer supine to sit and bed to/from chair with independence. Outcome: Progressing Flowsheets (Taken 11/20/2023 3505) Assistive Devices Screening: Transfer pad Assistive Devices Used: Friction reducing device Present Activity: in bed dangled at bedside back to bed Physical Assist/Nonphysical Assist: w/ 2 person assist Goal: Mobility goal: Improve ambulation by discharge Description: Patient will ambulate 100 feet on level surface, using no assistive device, with independence so patient can navigate discharge environment. Outcome: Progressing Flowsheets (Taken 11/20/2023 1615) Assistive Devices Screening: Transfer pad Assistive Devices Used: Friction reducing device Present Activity: in bed dangled at bedside back to bed Physical Assist/Nonphysical Assist: w/ 2 person assist Recommend: Post acute care;To be determined (11/20/23 1545) Recommendations were made on today's assessment. Additional recommendations will be based on patient's progress in therapy. Equipment to be issued at discharge: DME: To be determined (11/17/23 5899) S: Patient agreeable to therapy. Nonverbal throughout session, does not follow commands. Mom present at end of session, reports this is very unlike pt typically. Pt received supine in bed and connected to telemetry, SPo2 monitor, purewick. O: Cognition/ Perception: Alert, nonverbal, does not follow commands Weight Bearing: No restrictions Skin Integrity: See RN notes for assessment of abdominal incisions Precautions: Fall, abdomina, contact/droplet, seizure MOBILITY ASSESSMENT Bed Mobility: maxA for supine<>sitting EOB, PT attempting to have pt perform automatic movements of getting into/out of bed but pt unable to follow commands to participate. Pt sits EOB with close SBA for ~5 min. Attempted multiple exercises and activities for BLE strength, UE coordination, and trunk support/control however pt not following commands for participation, instead motions frequently to pillow at HOB, wanting to lay down. Once supine again, pt incontinent of bowels, maxA to rollside to side to change linens and get pt cleaned up with additional assist of PCT. maxAx2 to boost to HOB Transfers: Unable to progress at current functional level Gait: Unable to progress at current functional level [facility] AM-PAC Basic Mobility How much help from another person does the patient currently need? Score 1. Turning from your back to your side while in a flat bed without using bedrails? 2 - A lot (max to mod assist) 2. Moving from lying on your back to sitting on the side of a flat bed without using bedrails? 2 - A lot (max to mod assist) 3. Moving to and from a bed to a chair (including a wheelchair)? 2 - A lot (max to mod assist) 4. Standing up from a chair using your arms (e.g., wheelchair, or bedside chair)? 2 - A lot (max tomod assist) 5. Walking in hospital room? 1 - Total assist or cannot do at all 6. Climbing 3-5 steps with a railing? 1 - Total assist or cannot do at all Total score 10/24 Scale: 1 - Total - requires total assistance, or cannot do at all 2 - A lot - requires a lot of help (max to mod assist), can use assistive devices 3 - A little - requires a little help (supervision, min assist) can use assistive devices 4 - None - does not require any help and does the activity independently, can use assistive devices Education: PT POC and role of PT Positioning after tx: Patient positioned in bed with bed alarm on/patient educated on alarm, all lines intact, call light in reach, B UE/LEs elevated for comfort and maintained skin integrity, familypresent, all needs met, heels floated, RN aware A: Response to treatment: Progressing towards goals P: Continue PT 2-5x/wk at bedside for Transfer training, Gait training, Exercises, Balance trainingunless change in status or patient is discharged from the facility. Plan of Care developed, as indicated by PT assessment and patient's current status. Please refer to plan of care for updates on goals. Zone #: [phone] Kate Borrego, PT, DPT * Care Plan - Tammy De Souza MSW - 11/20/2023 3:44 PM CDT SW spoke with patients test facility engineer. She said that baseline patient eats well, interacts with staff by laughing, smiling, pointing, and speaks a few words. He walks SBA. Now patient is not interacting with staff at all. Very hard to arouse, not eating well, and has not ambulated with therapy, barely tolerating EOB therapy and following very limited commands. Last night when mom was visiting patient was making a wincing face eyes slightly twitching. SW informed doctor and nurse of baseline information. Facility management came bedside to see patient,they said he is far from baseline. When they were baseline patient made face again, they said that is not a face he normally makes, this wasthe same face patient made when nursing stuck him for ABG indicating he is possibly in pain when making that face. Patient did take a few sips when SW assisted him with water and ensure but not interested in food. FERNANDO has attempted to schedule OP therapy for patient, he does not have therapy benefits for OP or SNF. He can receive therapy at [facility] if his mother fills out MFA and hegets approved. SW to provide mother with MFA application. Tammy De Souza, SONI [id number] Problem: Discharge Planning Goal: Identify discharge needs upon admission and through discharge Description: Outcome: Progressing * Care Plan - Nael Cote, Occupational Therapist - 11/20/2023 11:28 AM CDT Problem: Self-Care Deficit Goal: Self care goal: Improve ability to perform self care activities by discharge Description: Patient will require minimal assistance with grooming/bathing with adaptive equipment. Outcome: Progressing Recommend: Post acute care (11/20/23 0745) Recommendations were made on today's assessment. Additional recommendations will be based on patient's progress in therapy. Equipment Recommended at discharge: To be determined (11/20/23 1364) Additional Adaptive Equipment Recommended: to be determined S: Patient agrees to therapy O: Cognition/ Perception: non-verbal, no real command following, sleepy and groggy this AM Skin Integrity: No signs of breakdown noted Weight Bearing: No restrictions Precautions: Fall Exercises: Bilateral UE AAROM, PROM x 15 reps ---UE Exercises: Shoulder flex/extension and abduction/adduction, elbow flex/extension, pronation/supination, hand/wrist ROM. UE exercises to help improve pts strength, ROM and Whitley with selfcare. FUNCTIONAL ACTIVITIES LE Dressing: Max A to don socks Functional mobility: Max A x1 for bed mobility going supine to sitting EOB. Patient tolerates sitting up for about 5 minutes. Patient not interacting much while EOB and remains fairly sleepy and lethargic. Patient then max A x1 for bed mobility going sitting to supine [facility] Daily Activity How much help from another person does the patient currently need? Score 1. Putting on and taking off regular lower body clothing? 2 - A lot (max to mod assist) 2. Bathing (including washing, rinsing, drying)? 2 - A lot (max to mod assist) 3. Toileting, which includes using toilet, bedpan or urinal? 2 - A lot (max to mod assist) 4. Putting on and taking off regular upper body clothing? 2 - A lot (max to mod assist) 5. Taking care of personal grooming such as brushing teeth? 2 - A lot (max to mod assist) 6. Eating meals? 2 - A lot (max to mod assist) Total score 1224 Scale: 1 - Total - requires total assistance, or cannot do at all 2 - A lot - requires a lot of help (max to mod assist), can use assistive devices 3 - A little - requires a little help (supervision, min assist) can use assistive devices 4 - None - does not require any help and does the activity independently, can use assistive devices Education: OT plan of care Positioning after tx: supine in bed Other: bed alarm on, all lines intact A: Response to treatment: Progressing towards goals P: Continue 2-5x/wk at bedside for: ADL Training, Functional Mobility Training, UE ROM/Strengthening, Patient Education, Cognition/Perception unless change in status or patient is discharged from [facility]. Plan of Care developed, as indicated by OT assessment and patient's current status. Additional Discharge Information: none Please refer to plan of care for updates on goals. Zone #: [id number] * Care Plan - Nael Cote, Occupational Therapist - 11/19/2023 2:26 PM CDT Problem: Self-Care Deficit Goal: Self care goal: Improve ability to perform self care activities by discharge Description: Patient will require minimal assistance with grooming/bathing with adaptive equipment. Outcome: Progressing Recommend: Post acute care (11/19/23 0745) Recommendations were made on today's assessment. Additional recommendations will be based on patient's progress in therapy. Equipment Recommended at discharge: To be determined (11/17/23 1234) Additional Adaptive Equipment Recommended: to be determined S: Patient agrees to therapy O: Cognition/ Perception: non-verbal, no real command following, a little more alert today Skin Integrity: No signs of breakdown noted Weight Bearing: No restrictions Precautions: Fall Exercises: Bilateral UE AAROM, PROM x 15 reps ---UE Exercises: Shoulder flex/extension and abduction/adduction, elbow flex/extension, pronation/supination, hand/wrist ROM. UE exercises to help improve pts strength, ROM and Whitley with selfcare. FUNCTIONAL ACTIVITIES LE Dressing: Max A to don socks Functional mobility: Max A x1 for bed mobility going supine to sitting EOB. Patient tolerates sitting up for about 5 minutes. Patient more alert today but no true command following noted. Patient tolerates sitting up better today. Patient then max A x1 for bed mobility going sitting to supine [facility] Daily Activity How much help from another person does the patient currently need? Score 1. Putting on and taking off regular lower body clothing? 2 - A lot (max to mod assist) 2. Bathing (including washing, rinsing, drying)? 2 - A lot (max to mod assist) 3. Toileting, which includes using toilet, bedpan or urinal? 2 - A lot (max to mod assist) 4. Putting on and taking off regular upper body clothing? 2 - A lot (max to mod assist) 5. Taking care of personal grooming such as brushing teeth? 2 - A lot (max to mod assist) 6. Eating meals? 2 - A lot (max to mod assist) Total score 12/24 Scale: 1 - Total - requires total assistance, or cannot do at all 2 - A lot - requires a lot of help (max to mod assist), can use assistive devices 3 - A little - requires a little help (supervision, min assist) can use assistive devices 4 - None - does not require any help and does the activity independently, can use assistive devices Education: OT plan of care Positioning after tx: supine in bed Other: bed alarm on, all lines intact A: Response to treatment: Progressing towards goals P: Continue 2-5x/wk at bedside for: ADL Training, Functional Mobility Training, UE ROM/Strengthening, Patient Education, Cognition/Perception [facility] Plan of Care developed, as indicated by OT assessment and patient's current status. Additional Discharge Information: none Please refer to plan of care for updates on goals. Zone #: [phone] * Care Plan - Tammy De Souza MSW - 11/19/2023 10:42 AM CDT FERNANDO talked to microbiology lab manager, Sally in regards to meeting patients needs at DC. She said there is a house nurse that can evaluate his needs prior to DC and determine if it something she can accommodate. Destini's number is [phone]. FERNANDO will speak with her once DC needs are determined. SONI Garza [id number] Problem: Discharge Planning Goal: Identify discharge needs upon admission and through discharge Description: Outcome: Progressing * Care Plan - Nael Cote, Occupational Therapist - 11/18/2023 10:21 AM CDT Problem: Self-Care Deficit Goal: Self care goal: Improve ability to perform self care activities by discharge Description: Patient will require minimal assistance with grooming/bathing with adaptive equipment. Outcome: Progressing Recommend: Post acute care (11/18/23 9739) Recommendations were made on today's assessment. Additional recommendations will be based on patient's progress in therapy. Equipment Recommended at discharge: To be determined (11/17/23 5254) Additional Adaptive Equipment Recommended: to be determined S: Patient agrees to therapy O: Cognition/ Perception: non-verbal, no real command following, sleepy and lethargic this AM Skin Integrity: No signs of breakdown noted Weight Bearing: No restrictions Precautions: Fall Exercises: Bilateral UE AAROM, PROM x 15 reps ---UE Exercises: Shoulder flex/extension and abduction/adduction, elbow flex/extension, pronation/supination, hand/wrist ROM. UE exercises to help improve pts strength, ROM and Whitley with selfcare. FUNCTIONAL ACTIVITIES LE Dressing: Max A to don socks Functional mobility: Max A x1 for bed mobility going supine to sitting EOB. Patient tolerates sitting up for about 5 minutes. Patient not interacting much while EOB and remains fairly sleepy and lethargic. Patient then max A x1 for bed mobility going sitting to supine [facility] Daily Activity How much help from another person does the patient currently need? Score 1. Putting on and taking off regular lower body clothing? 2 - A lot (max to mod assist) 2. Bathing (including washing, rinsing, drying)? 2 - A lot (max to mod assist) 3. Toileting, which includes using toilet, bedpan or urinal? 2 - A lot (max to mod assist) 4. Putting on and taking off regular upper body clothing? 2 - A lot (max to mod assist) 5. Taking care of personal grooming such as brushing teeth? 2 - A lot (max to mod assist) 6. Eating meals? 2 - A lot (max to mod assist) Total score 12/24 Scale: 1 - Total - requires total assistance, or cannot do at all 2 - A lot - requires a lot of help (max to mod assist), can use assistive devices 3 - A little - requires a little help (supervision, min assist) can use assistive devices 4 - None - does not require any help and does the activity independently, can use assistive devices Education: OT plan of care Positioning after tx: supine in bed Other: bed alarm on, all lines intact A: Response to treatment: Progressing towards goals P: Continue 2-5x/wk at bedside for: ADL Training, Functional Mobility Training, UE ROM/Strengthening, Patient Education, Cognition/Perception unless change [facility] Plan of Care developed, as indicated by OT assessment and patient's current status. Additional Discharge Information: none Please refer to plan of care for updates on goals. Zone #: [phone] * Care Plan - Mark ArevaloWESTLEY - 11/17/2023 9:48 PM CDT Problem: Pain, Potential/Actual Goal: Verbalizes/displays acceptable comfort [...] or maintain baseline function Outcome: Progressing Problem: Cardiovascular Goal: Achieve optimal cardiovascular function by discharge or maintain baseline function Outcome: Progressing Problem: Peripheral Neurovascular Goal: Achieve optimal peripheral neurovascular function by discharge or maintain baseline function Outcome: Progressing Problem: Respiratory Goal: Achieve optimal respiratory function by discharge and/or maintain baseline function Outcome: Progressing Problem: Coping (Adult) Goal: Demonstrates effective coping mechanisms and psychosocial functioning throughout hospitalization Outcome: Progressing Problem: Violence, Potential/Actual Goal: Remote Control Mirror Installer: Demonstrates ability to control behavior as evidenced by reduction of violence by discharge. Outcome: Progressing Problem: Physical Mobility, Impaired Goal: Mobility goal: Improve transfer ability by discharge Description: Patient will transfer to/from toilet with minimal assistance. Outcome: Progressing Problem: Self-Care Deficit Goal: Self care goal: Improve ability to perform self care activities by discharge Description: Patient will require minimal assistance with grooming/bathing with adaptive equipment. Outcome: Progressing Problem: Physical Mobility, Impaired Goal: Mobility goal: Improve transfer ability by discharge Description: Patient will transfer supine to sit and bed to/from chair with independence. Outcome: Progressing Goal: Mobility goal: Improve ambulation by discharge Description: Patient will ambulate 100 feet on level surface, using no assistive device, with independence so patient can navigate discharge environment. Outcome: Progressing * Therapy Evaluation - Pau Daniel Physical Therapist - 11/17/2023 2:39 PM CDT Physical Therapy order received, chart reviewed, and evaluation completed. Please see full evaluation below for details. Daily PT notes will be located in Care Plan notes. Thank You. PT INITIAL EVALUATION Reason for Admission: calculous cholecystitis s/p open cholecystectomy, strep viridans Ordered by: Patrick Activity Order: ambulate with assist Weight Bearing Status: no restrictions Precautions: Fall; PMH: Past Medical History: Diagnosis Date ADHD (attention deficit hyperactivity disorder) Adjustment reaction with aggression Allergic rhinitis Autism Constipation COVID-19 virus detected 02/13/2021 02/13/2021 Developmental delay disorder Mayfield-Gastaut syndrome Other general symptoms(780.99) Aggression-Adjustment Disorder Psychiatric disorder anxiety S/P placement of VNS (vagus nerve stimulation) device Seizure disorder Static encephalopathy Tremors of nervous system Recommend: Post acute care;Will tolerate 3 hours of therapy (11/17/23 4014) Recommendations were made on today's assessment. Additional recommendations will be based on patient's progress in therapy. Equipment to be issued at DC: To be determined (11/17/23 6196) S: Patient agreeable to therapy. Patient reports unrated pain. Per RN, pt is appropriate for therapy Pain intervention: Unneccessary movement avoided Response to pain intervention: Appeared content Living Situation/Functional Level LABVIEW PROGRAMMER: per chart, pt was living in a residential community/snf. Pt is typically ambulatory with a gait belt and helmet (due to seizure disorder). Home Equipment: per facility O: Appearance: pt is a 38 yo male, supine in bed, RN at bedside Cognition/Perception: pt is alert, cooperative. Follows tactile cues, limited ability to follow verbal cues. Pt is nonverbal. Appears to get more restless when in pain. Skin Integrity: no concerns noted ROM: Bilateral Upper Extremity WFL, Lower Extremity WFL Muscle Tone: WFL Strength: Bilateral Upper Extremity WFL, Lower Extremity WFL Sensation: pt responds to light touch MOBILITY ASSESSMENT: Bed Mobility: pt performed supine <> sit with maxAx1 for assist with all parts of transfer Pt sat EOB for a few minutes with minAx1 for trunk support, pt appears to be in pain with mobility so pt laying self back down at this time PT assisted with therapeutic positioning of pt to allow proper BLE alignment and relief of pressurepoints. Balance: fair sitting [facility] AM-PAC Basic Mobility How much help from another person does the patient currently need? Score 1. Turning from your back to your side while in a flat bed without using bedrails? 2 - A lot (max to mod assist) 2. Moving from lying on your back to sitting on the side of a flat bed without using bedrails? 2 - A lot (max to mod assist) 3. Moving to and from a bed to a chair (including a wheelchair)? 2 - A lot (max to mod assist) 4. Standing up from a chair using your arms (e.g., wheelchair, or bedside chair)? 2 - A lot (max tomod assist) 5. Walking in hospital room? 2 - A lot (max to mod assist) 6. Climbing 3-5 steps with a railing? 1 - Total assist or cannot do at all Total score 11/24 Scale: 1 - Total - requires total assistance, or cannot do at all 2 - A lot - requires a lot of help (max to mod assist), can use assistive devices 3 - A little - requires a little help (supervision, min assist) can use assistive devices 4 - None - does not require any help and does the activity independently, can use assistive devices Patient/Family Education: PT plan of care Other: pt tolerated fair, limited by pain. Increased time for session for communication Positioning after tx: Patient positioned in bed with bed alarm on/patient educated on alarm, all lines intact, call light in reach, B UE/LEs elevated for comfort and maintained skin integrity, all needs met, heels floated A: Disabilities: Decreased functional mobility and activity tolerance Assessment: Pt would benefit from continued skilled PT services to address these deficits. Clinical Presentation: Stable and/or uncomplicated EVALUATION COMPLEXITY: Low Complexity -These findings are based on patient's self reporting, therapist's objective findings and professional determinations. P: PT to see patient: At bedside 2-5x/wk. Will continue therapy unless patient has a change in status or patient is discharged from the facility. Plan of Care developed, as indicated by PT assessmentand patient's current status. Treatment Plan: Patient to be seen for Transfer training, Gait training, Exercises, Balance training Additional Discharge Information: Recommendations: For: Patient, Nursing --OOB to chair with chair alarm, ambulate in room or hallway, with assist Equipment to be issued at DC: To be determined (11/17/23 1439) --Patient involved in goal setting: yes Patient goals will be found in the Care Plan section of the medical chart. Zone #: [phone] On weekends--please call [phone] * Therapy Evaluation - Deborah Mendoza, Occupational Therapist - 11/17/2023 12:34 PM CDT Occupational Therapy order received, chart reviewed, and evaluation completed. Please see full evaluation below for details. Daily OT notes will be located in Care Plan notes. Thank You. 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 Additional recommendations will be based on patient's progress in therapy. Equipment needed at DC: To be determined (11/17/23 1234) Additional Adaptive Equipment Recommended: to be determined S: Patient agreeable to therapy. Pain intervention: Unneccessary movement avoided, Repositioned for comfort, Premedicated for activity, RN provided medications, RN aware Response to pain intervention: appeared content Living Situation/Functional Level LABVIEW PROGRAMMER: Per chart, pt living in residential community. Per chart, ptwalks with gait belt and helmet (2/2 seizures). Can feed self with weighted utensils but requires assistance for hygiene and toileting. O: Appearance: 38yo male met in bed upon arrival, RN cleared for session Vision: unknown visual acuity at this time; pt noted to track therapist, look towards speaker. Cognition/Perception: unknown cognitive level, pt not following most commands. Often reaching for therapist at eob attempting to stand intermittently UE ROM: WFL ; preference for elbow flexion, hand stimming intermittently Muscle Tone: WFL UE Strength: WFL Coordination: bilateral Hand Dominant: unable to follow coordination assessment Sensation: unknown; pt responding to tactile stim Skin Integrity: consistent with EMR FUNCTIONAL ACTIVITIES ASSESSMENT: Feeding: total assist Grooming: max a, attempted [place] initiation for wiping face UE Dressing: total assistance LE Dressing: total assistance Toilet Transfer: total assistance; max a for standing for [place] care Tub/Shower Transfer: dependent Functional Mobility: pt met at bed level; max a for advancement for LE towards eob, max a for trunkuprighting, pt able to sustain upright posture with supervision. Requiring max a for initiation forstanding, able to progress and decrease assistance at subsequent trials with mod a, pt often reaching for therapist to initiate standing. Completed standing for [place] care and bathing with RN assistance. Assistance for return to bed, mod a for initiation for return to bed. Pt assisted with positioning for comfort, RN at bedside, SCDs replaced [facility] AM-PAC Daily Activity How much help from another person does the patient currently need? Score 1. Putting on and taking off regular lower body clothing? 1 - Total assist or cannot do at all 2. Bathing (including washing, rinsing, drying)? 1 - Total assist or cannot do at all 3. Toileting, which includes using toilet, bedpan or urinal? 1 - Total assist or cannot do at all 4. Putting on and taking off regular upper body clothing? 2 - A lot (max to mod assist) 5. Taking care of personal grooming such as brushing teeth? 2 - A lot (max to mod assist) 6. Eating meals? 2 - A lot (max to mod assist) Total score 9/24 Scale: 1 - Total - requires total assistance, or cannot do at all 2 - A lot - requires a lot of help (max to mod assist), can use assistive devices 3 - A little - requires a little help (supervision, min assist) can use assistive devices 4 - None - does not require any help and does the activity independently, can use assistive devices Positioning after tx: in bed, alarm on, needs in reach and RN aware Other: Patient/Family Education: role and poc for OT; no evidence for understanding A: Disabilities: Pt presents with decreased endurance, UE strength/ROM, decreased safety awareness/cognition, and decreased independence in basic ADLs and functional mobility. Assessment: Pt would benefit from continued skilled OT services to address deficits listed above and increase independence in basic ADLs and functional mobility prior to discharge. EVALUATION COMPLEXITY: Low Complexity -These findings are based on patient's self reporting, therapist's objective findings and professional determinations. P: OT to see patient: 2-5x/wk at bedside Treatment: OT to see patient for: ADL Training, Functional Mobility Training, UE ROM/Strengthening,Patient Education Will continue therapy unless patient has a change in status or patient is discharged from the facility. Additional Discharge Information: --Patient involved in goal setting: unable to at this time 2/2 cognition Patient goals will be found in the Care Plan section of the medical chart. Zone #: [phone] On weekends--please call [phone] * Care Plan - Shirlene Grigsby RN - 11/17/2023 6:47 AM CDT U&A (undress & assess) completed by: Niesha RN and Ivy RN - no new breakdown noted End of Shift Note: this RN assumed care @ 2300. Pt awake most of night. FLACC negative for pain. Went down to CT and tolerated well. Blood cultures drawn. Started on Rocephin. Pt took all morning meds except Propranolol (will attempt later) Neuro: Non-verbal. Follows some commands. Purposeful movements. PERRLA. FLACC negative for pain. Tremors/shaking in hands when awake. Resp: 2L vs RA. LS clear CV: HR 90s-100s. SBP 120s-130s. 2/2 pulses. Afebrile GI: NPO sips with meds. BM dredge captain. Bowel sounds hypoactive. : good u/o via [place]avez Skin: [place] drsgs to abdominal incisions. Scant amount of sanguineous drainage noted. TRENT drain in place with sanguineous output Sleep Evaluation: awake most of night Medication titrations/Procedures/OR/Labs/Diagnostic Tests: - Hgb 8.7 - Phos 2.3 - CRP 184.0 Patient Goals Not Met: sleep * Care Plan - Yanci Montes RN - 11/16/2023 8:11 PM CDT Potential for pain related to surgical/procedural intervention Interventions: Assess level of pain/comfort utilizing verbal/nonverbal pain scales; assess culturalor spiritism indicators attached to pain; administer pain medications as prescribed; utilize non-pharmacologic pain control and comfort measures Expected Outcome: Patient demonstrates and reports adequate pain control Outcome Met: Patient denies pain, PRN's available. Potential for anxiety related to surgical intervention Interventions: convey caring/supportive attitude; offer emotional support as needed; provide comfort measures (warm blanket, pillow, quiet environment); allow patient opportunity to verbalize concerns/fears/questions; explore coping behaviors; allow age-specific/special needs family support Expected Outcome: Patient will demonstrate decreased anxiety or adaptive coping strategies Outcome Met: VSS * Care Plan - Glen Clark RN - 11/16/2023 2:32 PM CDT Knowledge deficit related to procedure/environment Interventions: Assess learning needs and willingness to learn; give clear, concise explanations of the environment and sequence of events surrounding the periop experience; address patient/family questions and concerns; provide teaching as indicated, provide teaching related to postoperative pain assessment utilizing pain scales Expected Outcome: Patient verbalizes or demonstrates awareness/understanding of surgery and perioperative experience Outcome Met: patient understands nakita-op process * Therapy Evaluation - Mario Lee, Occupational Therapist - 11/16/2023 10:37 AM CDT OT order received; therapy held today as patient w/ planned procedure this date. Will continue to follow * Therapy Evaluation - Brynn Pagan, Physical Therapist - 11/16/2023 8:49 AM CDT PT ordered received and chart reviewed. Pt held on this date due to finally resting after a difficult night and planned for OR later this morning. Will continue to follow, evaluate, and treat as appropriate. Please reach out with any questions or concerns regarding physical therapy care. Thanks, [phone] * Care Plan - Manny May RN - 11/16/2023 4:37 AM CDT Problem: Safety/Fall Goal: Safety/Fall: Absence of fall, injury, harm during hospitalization Description: Absence of/reduce fall risk during current hospitalization related to: 1. History of falls 2. Mobility deficits 3. Medications 4. Mental status/LOC/awareness 5. Toileting needs 6. Volume/electrolyte status 7. Communication/sensory 8. Behavior Outcome: Progressing * Care Plan - Enedelia Strong LPN - 11/15/2023 5:01 PM CDT Problem: Pain, Potential/Actual Goal: Verbalizes/displays acceptable comfort [...] discharge or maintain baseline function Outcome: Progressing * Therapy Evaluation - Alicja Ma, Physical Therapist - 11/15/2023 9:37 AM CDT Patient not seen for PT secondary to RN hold for further testing. Will continue to follow patient .Thank you. Zone #: [id number] * Treatment Plan - Tony Banuelos CNMT - 11/15/2023 9:34 AM CDT Images from the original note were not included. [facility] IMS Medication and Flush Protocol - Nuclear Medicine Procedures [facility] Approved by: [facility] - Medical Executive Committee Approval Date: 11/01/2023 ORDERS ARE ENTERED ???PER PROTOCOL?? Enter the protocol in the patient's electronic health record using smartphrase: .imagingnucmedicineprotocol The Nuclear Medicine Department and PET/CT Department, in collaboration with the Radiology Television Host, Group Director, Non-Invasive Cardiology Television Host, the Pharmacy and Therapeutic Committee, and the Medical Executive Committee, has approved the Nuclear Medicine Medication and Flush Protocol available for implementation by the Student Life Coordinator The Student Life Coordinator may implement the Nuclear Medicine Medication and Flush Protocol when a provider orders a Nuclear Medicine study by paper or electronic order The Student Life Coordinator will order all medication that appears on the MAR using 'Per Protocol or Standing - Cosign Required' The Student Life Coordinator will: Verify the correct patient using two patient identifiers Review the order to verify appropriate procedure by reviewing the paper or electronic order before administering the radiopharmaceutical. The order must be signed by a provider. For female patients, confirm the patient is not or breast-feeding as described in department policies Ensure consent forms are obtained for Stress Test and Therapeutic procedures At the time of administration of the radiopharmaceutical, verify the correct patient, correct dosage and radiopharmaceutical with the dose ticket, and the route of administration. All administrationswill be performed in designated areas. Only authorized personnel are to administer radiopharmaceuticals. All injections are performed using radiation safety and universal precautions The exact dose amount assayed in the dose calibrator will be recorded in the Nuclear Medicine Information System Communication Orders: For ordered imaging procedures requiring intravenous access: Initiate a peripheral IV, if not already in place, and discontinue IV prior to discharge (if outpatient). Enter order if needed: Insert Peripheral IV Medication Orders: Local Anesthetic for use to initiate IV ADULT Lidocaine 4% (L.M.X.4) applied topically ONE TIME prior to IV catheter insertion PRN (L.M.X.4 % should be applied 15 minutes prior to procedure) Chart RBCTAGGINGSTL and/or WBCTAGGINGSTL smartphrase as appropriate PEDIATRIC Lidocaine 4% (L.M.X.4) applied topically ONE TIME prior to IV catheter insertion PRN (apply 15 minutes prior to procedure) Sucrose 24% (Tootsweet; Sweet-Ease) oral solution 0.2 mL oral (apply to tongue on pacifier or clean, gloved finger), ONE TIME 2 minutes prior to painful procedure. May repeat dose x1 PRN to complete procedure Sodium chloride 0.9% (normal saline) flush 10 mL PRN for saline lock or medication administration. For respiratory distress, initiate oxygen and/or increase O2 to maintain saturation greater than 90% Procedure Specific Medications: Adult Procedures & Dosages: Note: Radiopharmaceuticals dosages with a range are determined by deputy probation officer calibration Note: In acute Tc99m shortages, radiopharmaceutical dosages may be decreased with approval and documentation within department from medical sales specialist/AU. Note: Hybrid SPECT/CT imaging used as appropriate for exam and/or as directed by Radiologist PROCEDURE DOSAGE Bone Marrow Imaging Ct49g-Opiwwxdj Sulfur Colloid (Gdjkykhnjs55i- filtered sulfur colloid), Administer 8mCi, IV, ONE TIME. Bone Scan Imaging (Whole Body, Limited, 3-Phase, or SPECT) Gt83l-JUD (Trctdejxgp06l-gzdaxzcei diphosphonate), Administer 25mCi, IV, ONE TIME. OR Yi49n-EDE (Eeakmvzrsd55l-geifdwwpxvsfwknp diphosphonate), Administer 25mCi, IV, ONE TIME. Brain Imaging Gk98y-TOGZ (Hnybcztuvj34e-xejymwueqz-ahtzpqgc-rsvbsgppjiyw), Administer 20mCi, IV, ONE TIME. Brain SPECT Imaging Dw41d-UBYRL (Ceretec) (Gdaqjcrhkw35o-svxzwaomfaldcbpawju amine oxime), Administer 20mCi, IV, ONE TIME. OR Tl-201 (Thallium Chloride-201), Administer 6mCi, IV, ONE TIME. C14 Urea Breath Test (PY Test) J98-Jqwi (Carbon-14 Urea), Administer 1uCi capsule, Orally, ONE TIME. Cisternogram Imaging In-111 DTPA (Indium-111 tslwonommo-iytelfqx-dplivsevgbkc), Neuroradiologist toadminister 0.5mCi, Intrathecally, ONE TIME. Cystogram Imaging Tc-99m Pertechnetate (Swfgewforo01e-xokncodlpmgzw) Administer 1mCi Ub33w-mnwuojtyxzqbi, intra-chavez catheter, ONE TIME AND Administer NS per calculated expected bladder volume, intra-chavez catheter, ONE TIME. DaTscan Imaging I-123 Ioflupane (Iodine-123 ioflupane), Administer 5mCi, IV, ONE TIME. AND Administer SSKI (Potassium Iodide) drops, 130mg, Orally, ONE TIME 30 minutes prior to radiopharmaceutical injection. Diverticulum/Meckel's Imaging Tc-99m Pertechnetate (Wgvrjvetzb95m- pertechnetate), Administer 15mCi,IV, ONE TIME. Esophageal Reflux Imaging Wb77q-Hgryym Colloid (Jhtfthsymf60b-ckofwk colloid), Administer 1mCi in 1oz whole milk. Follow with additional 7oz whole milk, Orally, ONE TIME. Ga-67 Citrate - Planar Imaging Ga-67 Citrate (Gallium-67 Citrate), Administer 5mCi, IV, ONE TIME. Ga-67 Citrate - SPECT Imaging Ga-67 Citrate (Gallium-67 Citrate), Administer 10mCi, IV, ONE TIME. Gastric Empty Imaging - Liquid Meal Uj03g-LHZB (Zieziipttv96w-fndfruucmu-vqwnviug-nqhalbqwggb), Administer 1mCi in 300mL tap water, Orally, ONE TIME. Gastric Empty Imaging - Solid Meal Ln66j-Ohafvz Colloid (Azgencvbbi66y-zbrvlf colloid), Administer 0.5mCi in 4 oz egg beaters or in 1 package of cooked instant oatmeal or in 1 container cooked of Easy Mac 'n Cheese, Orally, ONE TIME. GI Bleed Imaging (GI Blood Loss) Tc-99m Pertechnetate (Dvwchkcnhr45z- pertechnetate), Administer 25mCi heparinized RBCs, IV, ONE TIME. Hepatic Blood Pool Imaging Tc-99m Pertechnetate (Wwrmofcsme26f-pppntijthlzck), Administer 25mCi heparinized RBCs, IV, ONE TIME. Hepatic Hemangioma Imaging Tc-99m Pertechnetate (Ltxzezlhun07m-hscvngbzsdjgs), Administer 25mCi heparinized RBCs, IV, ONE TIME. Hepatobiliary Scan Imaging Tc-99m Mebrofenin (Mkxabhvuyf40n-hvxcwpenox), Administer 5 mCi IV, ONE TIME *For inpatients only, if bilirubin >5mg/dL, Administer 8 mCi IV, ONE TIME *For inpatients only, if bilirubin > 8mg/dL, consult nuclear medicine physician prior to administering radiopharmaceutical Hepatobiliary Scan with Ejection Fraction Imaging Tc-99m Mebrofenin (Xraiiykodx66l-ovelmqmolu), Administer 5 mCi IV, ONE TIME. *For inpatients only, if bilirubin >5mg/dL, Administer 8 mCi IV, ONE TIME *For inpatients only, if bilirubin > 8mg/dL, consult nuclear medicine physician prior to administering radiopharmaceutical AND For immediate use - Sincalide (Kinevac) 0.02 mcg/kg IV, ONE TIME, diluted with NS to a total infused volume of 30 mL. Infuse via an infusion device over 30 minutes. *If Sincalide unavailable, 240mL (8oz) Ensure Plus, Orally, ONE TIME. Hepatobiliary Scan with Pre-Treatment Imaging Tc-99m Mebrofenin (Sznazgqxaq22u-dzeniyeeop), Administer 5 mCi IV, ONE TIME. *For inpatients only, if bilirubin >5mg/dL, Administer 8 mCi IV, ONE TIME *For inpatients only, if bilirubin > 8mg/dL, consult nuclear medicine physician prior to administering radiopharmaceutical AND For immediate use - Sincalide (Kinevac) 0.01 mcg/kg IV, ONE TIME, diluted with NS to a total infused volume of 5 mL, Infuse via hand push over 5 minutes. In-111 Dual Isotope Imaging In-111 Oxine (Indium-111 Oxine), Administer at least 300uCi, up to 600uCi, heparanized WBC, IV, ONETIME. AND Eo16n-NXM (Fggjkjwywc10t-hlrdrqoxk diphosphonate), Administer 20mCi for BMI < 35; Administer 25 mCi for BMI >= 35, IV, ONE TIME. OR In-111 Oxine (Indium-111 Oxine), Administer at least 300uCi, up to 600uCi, heparanized WBC, IV, ONETIME. AND Jz83g-Zofdgqkq Sulfur Colloid (Ffahvdkndd25p-uirceusl sulfur colloid), Administer 8mCi, IV, ONE TIME. In-111 WBC Imaging In-111 Oxine (Indium-111 Oxine), Administer at least 300uCi, up to 600uCi, heparanized WBC, IV, ONE TIME. Liver/Spleen Imaging Dk04j-Eaayou Colloid (Jwutquljdi96y-gwwvrb colloid), Administer 5mCi, IV, ONE TIME. Lung Xenon Perfusion Imaging (normal or quantitative) Tc-99m MAA (Tcohjmxtcq11c- macroaggregated albumin), Administer 4mCi, IV, ONE TIME. Lung Xenon Ventilation Imaging (normal or quantitative) Xe-133 (Xenon-133), Administer at least 10 mCi, up to 30 mCi, Inhalation, ONE TIME. Lung Perfusion Imaging (normal or quantitative) Tc-99m MAA (Nrjriviekt20u- macroaggregated albumin),Administer 4mCi, IV, ONE TIME. Lung Perfusion SPECT Imaging Tc-99m MAA (Lspgpjfrvc34z-gkulwyyrrcoveuu albumin), Administer 4mCi, IV, ONE TIME Lung Perfusion Imaging - Patient (normal or quantitative) Tc-99m MAA (Xnogvlwdoj40b-acsomvfoqhsldcb albumin), Administer 2mCi, IV, ONE TIME. Lymphoscintigraphy - Breast Cancer, Next Day Surgery Ne13z-Viazjdbcmr (Ubcgcicgqt96i-fvtgdpbsbw), Administer 2mCi in 2 divided doses of 1mCi each, intradermal, ONE TIME. Lymphoscintigraphy - Breast Cancer, Same Day Surgery Hr42g-Wjidmqrziy (Ittbdryftg45w-qzbeentnzp), Administer 0.5mCi in 2 divided doses of 250uCi each, intradermal, ONE TIME. Lymphoscintigraphy - Lymphedema On00n-Lptadrmmvc (Leaceetjpz16p-iskeuvcvkj), For each extremity, administer 2mCi in 2 divided dosesof 1mCi each, subcutaneous, ONE TIME. Lymphoscintigraphy - Head & Neck Cancer, Next Day Surgery Ev92j-Yiecmqhjmz (Nfwtndjwzu03r-helvwzbrjw), Administer 2mCi in 2 divided doses of 1mCi each, intradermal, ONE TIME. Lymphoscintigraphy - Head & Neck Cancer, Same Day Surgery Yu09e-Svehjqplup (Kramlavoqe73b-otvvrwyglh), Administer 0.5mCi in 2 divided doses of 250uCi each, intradermal, ONE TIME. Lymphoscintigraphy - Skin Cancer, Next Day Surgery Xe05o-Kwwvyjjuru (Wdokuunzpu18u-wupkkikhxd), Administer 2mCi in 4 divided doses of 0.5mCi each, intradermal, ONE TIME. Lymphoscintigraphy - Skin Cancer, Same Day Surgery Az80u-Dzhdaprtab (Znqvdefoer71j-xgdozckdxb), Administer 0.5mCi in 4 divided doses of 125uCi each, intradermal, ONE TIME. Lymphoscintigraphy - Skin Cancer, Small Body Area, Next Day Surgery Gy20b-Pceqaxhgoh (Vcbtbedlby79a-gtepkmphpt), Administer 2mCi in 2 divided doses of 1mCi each, intradermal, ONE TIME. Lymphoscintigraphy - Skin Cancer, Small Body Area, Same Day Surgery Tc99m- Lymphoseek (Ycxdmmgpbg36a-egbgqzkyqh), Administer 0.5mCi in 2 divided doses of 250uCi each, intradermal, ONE TIME. Lymphoscintigraphy - Vulvar Melanoma Next Day Surgery Mj25l-Mrmdnouzjf (Wtlkcmgokh90o-xxbkvdraiy), Administer 2mCi in 1 dose, intradermal, ONE TIME. Lymphoscintigraphy - Vulvar Melanoma, Same Day Surgery Uc28i-Tqkjwrarmt (Dxtpoiqqrs18r-xzzqatmoik), Administer 0.5mCi in 1 dose, intradermal, ONE TIME. MIBG Imaging I-123 MIBG (Iodine-123 metaiodobenzylguandidine), Administer 10mCi, IV, ONE TIME. AND Administer SSKI (Potassium Iodide) drops, 130mg, Orally, ONE TIME 30 minutes prior to radiopharmaceutical injection. Microsphere Mapping (Y90 Mapping) Tc-99m MAA (Fbgkrfzwju82d-lowexdhjrjiangm albumin), Interventional Radiologist to administer (1) 2mCi in in 2mL NS, intra-arterial via catheter, ONE TIME. OR Tc-99m MAA (Ybnlukefng69l-bnbnqglxhbdrlon albumin), Interventional Radiologist to administer (2) 2mCi in in 2mL NS, intra-arterial via catheter, ONE TIME. MUGA/RVG Imaging Tc-99m Pertechnetate (Tiavtzzdfo96a-dynfsqfipnehi), Administer 25mCi heparinized RBCs, IV, ONE TIME. Myocardial Amyloid Scintigraphy (Hot PYP Scan) Ih92v-PJY (Coomonbbcn29w-bgocglqolarkd), Administer 15mCi, IV, ONE TIME. OR Pe52-UWK (Rhsyluirca54s-aflhbugbgjdpbals diphosphonate), Administer 15mCi, IV, ONE TIME. Myocardial Dual Isotope Imaging Tl-201 (Thallium Chloride-201) AND Mm83a-Meqejwz (Lhohumdmvk71w-sqhlqek), Administer 3mCi Tl-201forresting images, IV, ONE TIME AND Administer Da07z-Bkowtfh (Fvdbxjybfg64q-sxvtlau), for stress images based on patient's weight, IV, ONE TIME. Male or Female Patients: <180lbs: 12mCi Male or Female Patients: 181-240lbs: 15mCi Female Patients 241-265lbs: 18mCi Male Patients 241-330lbs: 18mCi Female Patients >265lbs: 24mCi Male Patients >330lbs: 24mCi Myocardial Planar Imaging (for patients >= table weight limit) Lw64c-Hgqeqvw (Uqzhdvthbk15o-Mncimgu), Administer 30mCi, IV, ONE TIME for rest images, ONE TIME for stress images. Myocardial Rest Imaging - SPECT Imaging Tl-201 (Thallium Chloride-201), Administer 4mCi, IV, ONE TIME. OR Zu37f-Gmmfurg (Cufzrufzhi72u-Wzvyjun), Administer 6mCi for female patients ?? 264 lb., IV, ONE TIME. OR Bo33y-Tptkknr (Fommhptqha04k-Bpiaevt), Administer 6mCi for male patients ?? 329 lb., IV, ONE TIME. OR Sj72j-Shnrdbr (Wrcbosifje13u-Exsmtzk), Administer 8mCi for female patients >= 265-399 lb., IV, ONE TIME. OR Qv14b-Tgdfngi (Aeejcqjwzb34u-Bomijpz), Administer 8mCi for male patients >= 330- 399 lb., IV, ONETIME. OR Uc37w-Nkcbbci (Lygwgbnlpa18o-Lixcywj), Administer 10mCi for all patients >= 400- 500 lb., IV, ONETIME. Myocardial Stress - SPECT Imaging Me44m-Ezzbtxa (Uvsukkxdnm87s-Cztvovj), Administer 18mCi for female patients ?? 264 lb., IV, ONE TIME. OR Ge81i-Lqjcuho (Aeejuazybf05d-Atsrfnh), Administer 18mCi for male patients ?? 329 lb., IV, ONE TIME. OR Di23g-Tlbgfns (Bfghfszofx26i-Bxxedce), Administer 24mCi for female patients >= 265-399 lb., IV, ONE TIME. OR Yv31r-Ukkjepg (Kquadaurem83o-Eqguqif), Administer 24mCi for male patients >= 330-399 lb., IV, ONE TIME. OR Ez37m-Nzcigkw (Plmcnjnevv79j-Ekhwyuj), Administer 30mCi for all patients >= 400- 500 lb., IV, ONETIME. Myocardial Viability Imaging Tl-201 (Thallium Chloride-201), Administer 2.5mCi, IV, ONE TIME. Note: If patient >=250 lbs, TI-201 (Thallium Chloride-201), Administer 3.5mCi, IV, ONE TIME. Octreoscan In-111 Pentetreotide (Indium-111 Pentetreotide), Administer 6mCi, IV, ONE TIME. Parathyroid Imaging Yk82f-Ezqeyzfpr (Znlxlecfmj73z-grbyolixl), Administer 20mCi, IV, ONE TIME. Peritoneal Cavity Scintigraphy Av00e-Hzooar Colloid (Mcuotehtim45s-xkamgw colloid), Administer 2mCiin 3mL NS, via peritoneal dialysis, ONE TIME. Peritoneovenous Shunt Scintigraphy Tc-99m MAA (Yogzheicbe81s-ytnycpdvobmnvht albumin), Physician toadminister 5mCi in 3mL NS, Intraperitoneal, ONE TIME. PET/CT Axumin F-18 Axumin (Xrgdnpkg08-pzhxjmhonwgx), Administer 10mCi, IV, ONE TIME. PET/CT Brain Imaging (Amyvid) F18- florbetapir [Amyvid??, (E)-4-(2-(6-(2-(2-(2[F-18]- (fluoroethoxy)ethoxy)ethoxy)somuvdky-9-tz)vinyl)-N-methylbenzamine], Administer 10mCi, IV, ONE TIME. PET/CT Brain Imaging (FDG) F18-FDG (Vpxvjdxy47-fziktozmwitiiydcge), Administer 10mCi, IV, ONE TIME. PET/CT Dotatate Imaging Ga-68 Dotatate (Gallium-68 Dotatate), Administer 5.4mCi, IV, ONE TIME. PET/CT Dotatate Imaging Cu-64 Detectnet (Copper-64 Dotatate), Administer 4mCi, IV, ONE TIME. PET/CT Myocardial Scan (Sarcoidosis or Viability) F18-FDG (Ehuyejzb56- fluorodeoxyglucose), Administer 0.11mCi/kg with at least 8mCi, up to 17mCi, IV, ONE TIME. PET/CT Limited, Standard, or Whole-Body Oncology Imaging F18-FDG (Tnvpxsue43-zknalqkmplimrwecaf), Administer 0.11mCi/kg, with at least 8mCi, up to 17mCi, IV, ONE TIME. PET/CT Pylarify Imaging R20-Ncuejzrt (Xbensuki53-Fzucoboqpavyp), Administer 9mCi, IV, ONE TIME. Pluvicto Therapy Laverne-177 (Lutetium-177 vipivotide tetraxetan), Administer per Written Directive, IV,ONE TIME. Renal Scintigraphy (FANNIE-Inhibitor Renal Scan) Ol95r-EDQ0 (Zdcuojwzza73x- mercaptoacetyltriglcine), Administer 5mCi, IV, ONE TIME. AND Administer Enalaprilat (Vasotec) 2.5mg, IV, ONE TIME. Dilute to 5mL total volume with normal salineand infuse via hand push injection over 5 minutes. OR Administer Captopril, 50mg capsule crushed and dissolved in 150mL tap water, Orally, ONE TIME. Renal Scintigraphy (Cortical Imaging) Qz09s-VISR (Odiyquznsp91f- dimercaptosuccinic acid), Administer 5mCi, IV, ONE TIME. Renal Scintigraphy (Diuretic Renal Scan) Pg33w-HWOY (Gehkiqmphw49j-hsiizejrev-gufknkae-dpmukgkksrbz), Administer 5mCi, IV, ONE TIME. AND Administer Lasix (furosemide) 40mg, IV push over 2 minutes, ONE TIME. OR Lq68n-BQU0 (Yythgcvujj95j-hkazosyalgrfmuupdpfujsv), Administer 5mCi, IV, ONE TIME. AND Administer Lasix (furosemide), 40mg, IV push over 2 minutes, ONE TIME. Renal Scintigraphy (Flow and Function Scan) Gc97e-ZVXM (Fjnbqhkmxp11i-noeumgpool-wytvzbom-vursbgzjakbb), Administer 5mCi, IV, ONE TIME. OR Bb06v-TVV2 (Pjeqnzlmsp43v-xlrthdmfmwgsgbmllhyxtlb), Administer 5mCi, IV, ONE TIME. Renal Scintigraphy (Renal Transplant Scan) Xc71b-LHEI (Dknzhjzerr35r-jxymohppib-vjdnakuf-pivllrzazatk), Administer 5mCi, IV, ONE TIME. OR Pp44z-TTI5 (Wfsfwzddjs72i-kybhcchlwybxgyiwksxmkgm), Administer 5mCi, IV, ONE TIME. Salivary Imaging Tc-99m Pertechnetate (Yzbeopigoe02a-danclvmsgxkmp), Administer 5mCi, Orally, ONE TIME. Shunt Patency Imaging (CSF Shunt Imaging) Dx81d-QQMC (Tebscytqlq05u-csjprlxvaw-tsilzgkv-dlhiqazytaof), Neurosurgeon or neurosurgeon's PA to administer 0.5mCi, intra-shunt reservoir, ONE TIME. Splenic Imaging Tc-99m Pertechnetate (Ytyglstdoj79j-imdspzqnperwq), Administer 6mCi heparinized, heat damaged RBCs, IV, ONE TIME. Rq81m-USF Imaging Oh40m-Vwkbwbu (Zmvpkeuznv81d-Ztqudrt), Administer 15mCi heparinized WBC, IV, ONE TIME. Thyrogen Injection Thyrogen (thyrotopin maame), Administer 0.9mg, deep IM, every 24 hours for 2 doses. Thyroid Imaging Tc-99m Pertechnetate (Tqzpwhucxy52l-kujrvyiufvquv), Administer 10mCi, IV, ONE TIME. OR I-123 Na Iodide (Iodide-123 Na Iodide), Administer 200 uCi capsule, Orally, ONE TIME. Thyroid Scan & Uptake I-123 Na Iodide (Iodide-123 Na Iodide), Administer 220 uCi capsule, Orally, ONE TIME. Thyroid Uptake I-123 Na Iodide (Iodide-123 Na Iodide), Administer 220 uCi capsule, Orally, ONE TIME. OR I-131 Na Iodide (Iodide-131 Na Iodide), Administer at least 5 uCi, up to 25 uCi, Orally, ONE TIME. Whole Body I-123 Imaging I-123 Na Iodide (Iodide-123 Na Iodide), Administer 2.5 mCi capsule, Orally, ONE TIME. Whole Body I-131 Imaging Diagnostic: I-131 Na Iodide (Iodide-131 Na Iodide), Administer 3 mCi capsule or solution, Orally, ONE TIME. Therapeutic: Administer per Written Directive Xofigo Treatment Ra-223 dichloride, Administer 1.49 mCi/kg per Written Directive, IV, ONE TIME. Y90 Microsphere Treatment Y-90 SirSpheres (Yittrium-90 microspheres), Administer per Written Directive, Intra-Arterial, ONE TIME. Pediatric Procedures & Dosages: Note: Radiopharmaceuticals dosages with a range are determined by deputy probation officer calibration Note: In acute Tc99m shortages, radiopharmaceutical dosages may be decreased with approval and documentation within department from medical sales specialist/AU. Note: Hybrid SPECT/CT imaging used as appropriate for exam and/or as directed by Radiologist PROCEDURE DOSAGE Bone Marrow Imaging Yk93e-Mqhlweww Sulfur Colloid (Yahmtfaemv99h-ualvynya sulfur colloid), Administer 0.14mCi/kg with at least 1mCi, up to 8mCi, IV, ONE TIME. Bone Scan Imaging (Whole Body, Limited, 3-Phase, or SPECT) Rt31q-BNS (Tikbaeytea97x-gaijfvmis diphosphonate), Administer 0.25mCi/kg with at least 1mCi, up to 25mCi, IV, ONE TIME. OR Er37c-OFQ (Eacphrpzat93z-nuvdaxknqikozzbk diphosphonate), Administer 0.25mCi/kg with at least 1mCi,up to 25mCi, IV, ONE TIME Brain Imaging Ym96z-CVBY (Mjjkyxywav31n-gcfozxdngk-gbvnkfjy-gltqqhcwfdqb), Administer 0.3mCi/kg with at least 5mCi, up to 20mCi, IV, ONE TIME. Brain SPECT Imaging Vv33m-GFJFE (Ceretec) (Fplpagiehk68s-iwxmzsualonckpmpgfd amine oxime), Administer 0.3mCi/kg with atleast 3mCi, up to 20mCi, IV, ONE TIME. C14 Urea Breath Test (PY Test) T70-Ealk (Carbon-14 Urea), Administer 1uCi capsule, Orally, ONE TIME. Cisternogram Imaging In-111 DTPA (Indium-111 yzxuroejbp-vlwhzdth-fsxdcvoawxaw), Neuroradiologist to administer 0.07mCi/kg with at least 0.1mCi, up to 0.5mCi, Intrathecally, ONE TIME. Cystogram Imaging Tc-99m Pertechnetate (Fozsuoriog70d-yrycgfkgvzkde) Administer 1mCi, intra-chavez catheter, ONE TIME AND Administer NS per calculated expected bladder volume, intra-chavez catheter, ONE TIME. Diverticulum/Meckel's Imaging Tc-99m Pertechnetate (Znjgczrbdi58e-fpyrmggrgadqq), Administer 0.05mCi/kg with at least 0.25mCi, upto 15mCi, IV, ONE TIME. Esophageal Reflux Imaging - <1yoa Ya83g-Iqthmt Colloid (Lbrannjnfl94a-xvpjqf colloid), Administer 0.1mCi for patients <3.5lb., Orally, ONE TIME. OR Administer 0.2mCi for patients 3.5-6.5lb., Orally, ONE TIME. OR Administer 0.3mCi for patients >6.5lb., Orally, ONE TIME. *For all administrations, determine amount of formula or breast milk patient consumes in 1 hour by dividing their normal feed amount by 4. Then, take this calculated amount and divide into 2 so that you can tag ?? with the radiopharmaceutical and feed the remaining ?? 'cold'; feed the radioac tive labeled formula/milk and then 'cold' formula/milk over a 10-minute total period of time. Esophageal Reflux Imaging - >1yoa Kn05f-Zoaxqn Colloid (Shtcucnhgi98k-effywl colloid), Administer 0.5mCi in 1 oz whole milk, Orally, ONE TIME. Follow with 7 oz whole milk. Ga-67 Citrate - Planar Imaging Ga-67 Citrate (Gallium-67 Citrate), Administer 0.07mCi/kg with at least 0.5mCi, up to 5mCi, IV, ONETIME. Ga-67 Citrate - SPECT Imaging Ga-67 Citrate (Gallium-67 Citrate), Administer 0.14mCi/kg with at least 1mCi, up to 10mCi, IV, ONE TIME. Gastric Empty Imaging - Liquid Meal Xk09n-Zhohff Colloid (Cuqavwuxyb78m-xhsezr colloid), Administer7 uCi/kg with at least 250uCi, up to 500uCi, Orally, ONE TIME. *For all administrations, determine amount of formula or breast milk patient consumes in 1 hour by dividing their normal feed amount by 4. Then, take this calculated amount and divide into 2 so that you can tag ?? with the radiopharmaceutical and feed the remaining ?? 'cold'; feed the infant radioac tive labeled formula/milk and then 'cold' formula/milk over a 10-minute total period of time.OR Yg77i-XINF (Hfyuvzrgvk85g-kreryjozqr-iinkkyin-exxtbmynspi), Administer 1mCi in 300mL tap water, Orally, ONE TIME. *Follow Ux38k-NNJF dosing if the pediatric patient is not an and consumes water. Gastric Empty Imaging - Solid Meal Sn76c-Xrtkpt Colloid (Zzhxgjcfqo81o-fyvbwt colloid), Administer 7uCi/kg with at least 250uCi, up to 500uCi in 4 oz eggbeaters or in 1 package of cooked instant oatmeal, or in 1 container cooked of Easy Mac 'n Cheese, Orally, ONE TIME. GI Bleed Imaging (GI Blood Loss) Tc-99m Pertechnetate (Bvwmxbefci98v- pertechnetate), Administer 0.32mCi heparinized RBCs with at least 2mCi, up to 25mCi, IV, ONE TIME. Hepatic Blood Pool Imaging Tc-99m Pertechnetate (Qabwhncpnc63i-funqiukdpadhu), Administer 0.32mCi heparinized RBCs with at least 2mCi, up to 25mCi, IV, ONE TIME. Hepatic Hemangioma Imaging Tc-99m Pertechnetate (Iclylowukp80l-yggtwxbegdiks), Administer 0.32mCi heparinized RBCs with at least 2mCi, up to 25mCi, IV, ONE TIME. Hepatobiliary Scan Imaging Tc-99m Mebrofenin (Nnyfdwfmsn52a-qenzmqfpji), Administer 0.05mCi/kg withat least 0.5mCi, up to 5mCi, IV, ONE TIME *For inpatients only, if bilirubin >5mg/dL, Administer 0.08mCi/kg with at least 1mCi, up to 8mCi, IV, ONE TIME *For inpatients only, if bilirubin > 8mg/dL, consult nuclear medicine physician prior to administering radiopharmaceutical Hepatobiliary Scan Imaging for in Jaundice Tc-99m Mebrofenin (Uyawaiaafo05g-msfyrsvior), Administer 0.08mCi/kg with at least 1mCi, up to 8mCi, IV, ONE TIME AND Administer Phenobarbital 5mg/kg/day (may be administered in 2 divided doses) for 3 days prior to imaging, IV, ONE TIME PER DAY. Hepatobiliary Scan with Ejection Fraction Imaging Tc-99m Mebrofenin (Jtcmpkbzar59r-kyrnixehju), Administer 0.05mCi/kg with a at least 0.5mCi, up to 5mCi IV, ONE TIME *For inpatients only, if bilirubin >5mg/dL, Administer 0.08mCi/kg with at least 1mCi, up to 8mCi, IV, ONE TIME *For inpatients only, if bilirubin > 8mg/dL, consult nuclear medicine physician prior to administering radiopharmaceutical AND For immediate use - Sincalide (Kinevac) 0.02 mcg/kg IV, ONE TIME, diluted with NS to a total infused volume of 30 mLs. Infuse via an infusion device over 30 minutes. *If Sincalide unavailable, 3.5ml/kg, up to 240mL (8oz) Ensure Plus, Orally, ONE TIME. Hepatobiliary Scan with Pre-Treatment Imaging Tc-99m Mebrofenin (Cdaorebrmk50h- mebrofenin), Administer 0.05mCi/kg with a at least 0.5mCi, up to 5mCi IV, ONE TIME *For inpatients only, if bilirubin >5mg/dL, Administer 0.08mCi/kg with at least 1mCi, up to 8mCi, IV, ONE TIME *For inpatients only, if bilirubin > 8mg/dL, consult nuclear medicine physician prior to administering radiopharmaceutical AND For immediate use - Sincalide (Kinevac) 0.01 mcg/kg IV, ONE TIME, diluted with NS to a total infused volume of 5 mL, Infuse via hand push over 5 minutes. In-111 Dual Isotope Imaging In-111 Oxine (Indium-111 Oxine), Administer 5uCi/kg with at least 300uCi, up to 500uCi, heparanized WBC, IV, ONE TIME. AND Ki25c-FJQ (Gcxdsrdmld16l-tptraxwwo diphosphonate), Administer 0.25mCi/kg with at least 1mCi, up to 20mCi, IV, ONE TIME. OR In-111 Oxine (Indium-111 Oxine), Administer 5uCi/kg with at least 300uCi, up to 500uCi, heparanizedWBC, IV, ONE TIME. AND Iv79a-Kxidtnvq Sulfur Colloid (Ajpwogtcwd13u-tukoxjwn sulfur colloid), Administer 0.14mCi/kg with at least 1mCi, up to 8mCi, IV, ONE TIME. In-111 WBC Imaging In-111 Oxine (Indium-111 Oxine), Administer 5uCi/kg with at least 300uCi, up to 500uCi, heparanized WBC, IV, ONE TIME. Liver/Spleen Imaging Ai61y-Swudhf Colloid (Ashjlflxjv99l-faoilv colloid), Administer 0.05mCi/kg with at least 0.5mCi, up to 5mCi, IV, ONE TIME. Lung Xenon Perfusion Imaging (normal or quantitative) Tc-99m MAA (Ljbzccyijt93q-zevbiqirxigshmh albumin), Administer 0.03mCi/kg, with at least 0.4mCi, upto 4mCi IV, ONE TIME. Lung Xenon Ventilation Imaging (normal or quantitative) Xe-133 (Xenon-133), Administer 10 mCi, inhalation, ONE TIME. Lung Perfusion Imaging (normal or quantitative) Tc-99m MAA (Bhoynridca49u-ucxjrhndvrrynzg albumin), Administer 0.03mCi/kg, with at least 0.4mCi, upto 4mCi IV, ONE TIME. Lung Perfusion Imaging - Patient (normal or quantitative) Tc-99m MAA (Nvbllojbwl90y-zfdtqgytddnfzqv albumin), Administer 0.03mCi/kg, with at least 0.4mCi, upto 2mCi IV, ONE TIME. MIBG Imaging I-123 MIBG (Iodine-123 metaiodobenzylguandidine), Administer 0.14mCi/kg with at least 1mCi, up to 10mCi, IV, ONE TIME AND Administer SSKI (Potassium Iodide) drops 30 minutes prior to radiopharmaceutical injection. * to 1 month: 16mg, Orally, ONE TIME. * 1 month to 3 years of age: 32mg, Orally, ONE TIME. * Greater than 3 years to 17 years of age: 65mg, Orally, ONE TIME. MUGA/RVG Imaging Tc-99m Pertechnetate (Sacswhanuu11m-mfmxtzixuztgr), Administer 0.32mCi/kg heparinized RBCs with at least 2mCi, up to 25mCi, IV, ONE TIME. Myocardial Amyloid Scintigraphy (Hot PYP Scan) Tp73x-GRK (Pxccipzzwo35e- pyrophosphate), Administer 0.28mCi/kg, with at least 2.5mCi, up to 15mCi IV, ONE TIME. Myocardial Rest Imaging - SPECT Imaging Ld27j-Zgckvbb (Qgcvsfptfz15t-Kqtjrqv), Administer 0.15mCi/kg, with at least 2mCi, up to 8mCi IV, ONE TIME. Myocardial Stress Imaging - SPECT Imaging Vz84c-Pdjtlml (Mduyaxmyow37t-Wgnixhn), Administer 0.45mCi/kg, with at least 6mCi, up to 24mCi IV, ONE TIME. Octreoscan In-111 Pentetreotide (Indium-111 Pentetreotide), Administer 0.08mCi/kg with at least 1mCi, up to 6mCi, IV, ONE TIME. Parathyroid Imaging Qf89f-Fmjprwbjj (Ihkhleuoec67l-qpspwvnma), Administer 0.25mCi/kg, with at least 2mCi, up to 20mCi IV, ONE TIME. Peritoneal Cavity Scintigraphy Eb19x-Aiarep Colloid (Osbmhkzkoy68c-yqonsz colloid), Administer 0.07mCi/kg in 2mL NS with at least 1mCi, up to 2mCi, via peritoneal dialysis, ONE TIME. Peritoneovenous Shunt Scintigraphy Tc-99m MAA (Rxmdspzytq11r-rsavurgmhfebaoq albumin), Physician to administer 0.07mCi/kg with at least 1mCi, up to 5mCi in 2mL NS, Intraperitoneal, ONE TIME. PET/CT Brain Imaging (FDG) F18-FDG (Learckpn19-sdrnbebxptwvabuuxd), Administer 0.10mCi/kg with at least 2mCi, up to 10mCi, IV,ONE TIME. PET/CT Limited, Standard, or Whole-Body Oncology Imaging F18-FDG (Sqhfinnw40-maltrcisnrdatarkld), Administer 0.11mCi/kg with at least 2mCi, up to 10mCi, IV,ONE TIME. PET/CT Dotatate Imaging Ga-68 Dotatate (Gallium-68 Dotatate), Administer 0.054mCi/kg up to 5.4mCi, IV, ONE TIME. (Minimum dose determined by AU). Renal Scintigraphy (FANNIE-Inhibitor Renal Scan) Lj45b-EMY9 (Seddoiprwt87n-xvyzwpzgtrktbcrdinmwbqv), Administer 0.1mCi/kg with at least 1mCi, up to 5mCi, IV, ONE TIME. AND Administer Enalaprilat (Vasotec) 0.04mg/kg with a maximum dose of 2.5mg, IV, ONE TIME. Dilute to 5mL total volume with normal saline and infuse via hand push over 5 minutes. Renal Scintigraphy (Cortical Imaging) Fw08x-UXIZ (Diufynxzzk20e-plzquhjflefxhcfqvy acid), Administer 0.05mCi/kg with at least 0.5mCi, up to 5mCi, IV, ONE TIME. Renal Scintigraphy (Diuretic Renal Scan) Dq58p-UVWW (Hmxfobvjei69i-npgdqkhhvz-nsprjqek-gqkntuqrkapl), Administer 0.2mCi/kg with at least 2mCi, up to 5mCi, IV, ONE TIME. AND Administer Lasix (furosemide), 1mg/kg, up to 40mg, IV push over 2 minutes, ONE TIME. A reduced dosage of 0.5mg/kg may be used per direction of nuclear medicine physician. OR Sp79a-EDN7 (Gmqijlhuyy49k-zqzhvipoowopgmrqsolsjye), Administer 0.1mCi/kg with at least 1mCi, up to 5mCi, IV, ONE TIME. AND Administer Lasix (furosemide), 1mg/kg, up to 40mg, IV push over 2 minutes, ONE TIME. A reduced dosage of 0.5mg/kg may be used per direction of the nuclear medicine physician. Renal Scintigraphy (Flow and Function Scan) Lg15b-FJOW (Gxqotejaun72b-cwxiwqkuwj-ivgksana-ygknhvktcspj), Administer 0.2mCi/kg with at least 2mCi, up to 5mCi OR Fy32c-AMQ0 (Cflrayfncp88p-jtngiwgtgyygoshtoyxqkvf), Administer 0.1mCi/kg with at least 1mCi, up to 5mCi, IV, ONE TIME. Renal Scintigraphy (Renal Transplant Scan) Bj14f-HHTZ (Nzawrigazh45r-jltdawmgqw-nlvfrvjz-gghpgpolqlhi), Administer 0.2mCi/kg with at least 2mCi, up to 5mCi OR Ps23c-IDO8 (Yqfxbfyusj83s-rrymmxtzgsjvvmdjfnyspqb), Administer 0.1mCi/kg with at least 1mCi, up to 5mCi, IV, ONE TIME. Salivary Imaging Tc-99m Pertechnetate (Fdwobakhsh05q-jvyixqanhqjzc), Administer 0.05mCi/kg with at least 0.25mCi, up to 5mCi, Orally, ONE TIME. Shunt Patency Imaging (CSF Shunt Imaging) Mx04h-WZHL (Sdbsrfzttf86g-jccujmihhx-coawrsdk-yljlvfsbujzj), Neurosurgeon or neurosurgeon's PA to administer 0.01mCi/kg with at least 0.4mCi, up to 0.5mCi, intra-shunt reservoir, ONE TIME. Splenic Imaging Tc-99m Pertechnetate (Dpbatrrtzj58l-pyeyujizdvjcz), Administer 0.03mCi/kg with at least 0.5mCi, up to 6mCi heparinized, heat damaged RBCs, IV, ONE TIME. Kk08x-JAY Imaging Fv72d-Wynozhy (Bqfbzrtsrr67h-Ilezhiz), Administer 0.2mCi/kg with at least 2mCi, up to 15mCi, heparinized WBC, IV, ONE TIME. Thyroid Imaging Tc-99m Pertechnetate (Vuyxtclnod46b-owzqaxuhyamkn), Administer 0.07mCi/kg with at least 1mCi, up to 10mCi, IV, ONE TIME. Thyroid Scan & Uptake I-123 Na Iodide (Iodide-123 Na Iodide), 110uCi, Orally, ONE TIME. Thyroid Uptake I-123 Na Iodide (Iodide-123 Na Iodide), Administer dosage per treating AU & fillout special prescription form, Orally, ONE TIME. OR I-131 Na Iodide (Iodide-131 Na Iodide), Administer dosage per treating AU & fill out special prescription form, Orally, ONE TIME. Whole Body I-131 Imaging Diagnostic: I-131 Na Iodide (Iodide-131 Na Iodide), Administer 0.07uCi/kg, up to 3mCi capsule or solution (minimum dose per treating AU), Orally, ONE TIME. Therapeutic: Administer per Written Directive * Therapy Evaluation - Deborah Mendoza, Occupational Therapist - 11/15/2023 9:27 AM CDT OT orders received, Pt pending further exams to determine possible OR per RN . Will plan for followup as appropriate. [id number] * Therapy Evaluation - Kassidy Thomas Occupational Therapist - 11/14/2023 2:59 PM CDT OT orders received and pt's chart reviewed. Per RN, hold OT evaluation at this time due to current medical status. Will continue to follow [id number] * Care Plan - Carey Hopkins MSW - 11/14/2023 9:34 AM CDT Care Management Initial Assessment Initial Discharge Planning Assessment completed. Discussed Care Management's role and Discharge planning. Discharge Plan: return to snf Does the patient have family and/or a caregiver that is willing, able and available to assist if needed? Yes - Name/Relation:snf staff Comments: Spoke to pt's microbiology lab manager Karla for assessment [phone]. Verified listed address & verified pharmacy. At baseline pt walks with gait belt/helmet (d/t seizure disorder). He can feed self with weighted dishes but needs assistance with hygiene etc. At this time pt has all needed DME. Discharge will need to be coordinated with snf. . Clinicals faxed through [employer]. senior living can transport on weekdays M-F until 4pm; no returns accepted on weekend. Karla is going on vacation tomorrow so if pt does not discharge today will need to coordinate with Sally [phone]. Addendum 1:53 PM Spoke to Karla, they have received clinical information. Pt anticipated to be ready to dc in 1-2 days. senior living needs pt to return before 4pm on Saturday if he is ready to dc then; they are not able to reaccept on the weekend. Pt's helmet is being brought back to facility. Facility is unable to have caregiver at bedside during IP stay d/t it being considered double billing by state. Patient Discharge Planning Goal: medical stability Patient will potentially discharge to a SNF/NH? No [facility]. Prior to admission, patient resides at: [facility] . Patient resides in a 1 story home with 0 stairs to enter. Patient's bedroom and bathroom are located on the main floor. Prior to admission, living arrangements: group setting. Prior to admission, patient's functional level:requires assistance; uses N/A for mobility; needs assistance with iADLs: bathing, toileting, meal preparation, transportation, shopping, running errands, medication management, housekeeping, telephone use, and managing finances Community Ambulator: yes Prior to admission, the patient has the following DME? Yes other gait belt, helmet Services in the home/community: other snf caregivers Serviced by snf Receives hemodialysis? No Emergency contact(s): Extended Emergency Contact Information Primary Emergency Contact: YULIANA BEEBE Address: [address] [place] [address] [address] [place], [place] [id number] [address] Relation: Mother Secondary Emergency Contact: KARLA NAVARRO Mobile Relation: Patient Identified Finance Teacher Encyclopedia Research Worker needed? No Prescription coverage: yes Preferred Pharmacy verified: [facility] [place], [place] - [address] [place] [address], [address] [place] [address] Insurance coverage verified: Payor: MEDICAID / Plan: MEDICAID [place] / Product Type: Medicaid / Secondary Insurance:N/A Medicaid Status: no spend down Has VA Benefits: no Employment Status: not employed PCP verified as: Gulshan Mena, DO Patient has not had a stay at an acute care hospital in the last 30 days. Recent Falls?: Last Known Fall: No falls Plan for transportation at discharge: snf transport Care Management contact information provided. Care Management will continue to follow and assist asneeded. Carey Hopkins LMSW Care Management Department: [phone] Hours: Thurs-Sun [id number] * Care Plan - Richie Neves RN - 11/14/2023 3:19 AM CDT Pt admitted and resting in bed * Gen [facility] ED Handoff - JUWAN VILLAVICENCIO HANDOFF NOTE - 11/14/2023 2:46 AM CDT ##Situation##: Patient ( ) is a 38-year-old male who has been in the ER for 8 hours. He came to the ER due to fever. The patient's most recent care team on record included: Fior Kumari; Richie Neves. ##Background##: This patient has allergies to Amoxicillin, Carbamazepine, Penicillins, Phenytoin Sodium. ##Assessment##: Patient's most recent vitals recorded in flowsheets were as follows: *BP: 132/95 *Temp: 38.4C, 101.1F *Resp: 23 *Pulse oximetry: 97 *Pulse: 75 Last recorded oxygen source was room air. The patient, Curt Beebe, presents with increased work of breathing, fever, and lethargy. He is non-verbal at baseline and has a history of autism, ADHD, static encephalopathy, and seizure disorder. The patient was found to have RSV and possible cholecystitis. He has a history of developmental delay, Mayfield-Gastaut syndrome, and intractable epilepsy. The patient also has a VNS device and has experienced a seizure during the ED stay. ##Recommendation##: The patient is to be admitted for further management. General surgery has been consulted for acute cholecystitis, and an ultrasound is planned. The patient will continue on antibiotics and be NPO after midnight. Supportive care for RSV with droplet precautions is recommended. The patient's seizure disorder will be managed with home medications. DVT prophylaxis with SCDs is pending input from surgeons. Blood cultures, UA, and respiratory PCR have been ordered to rule out other causes of fever. The patient is on continuous cardiac monitoring, intermittent blood pressure, and pulse oximetry. A 10-day course of antibiotics for gallbladder inflammation is recommended, and surgery will be deferred for now due to the respiratory illness. The patient is on full code status as per discussion with the patient's mom. The patient is expected to require hospital care for less than 2 midnights. This summary was created by juwan GOMES. The responses are meant to enhance, not replace normal workflow. Please contact the ED nurse for any follow up or additional information. * ED Bed Hold Comment Note - Chino Barker RN - 11/13/2023 6:03 PM CDT Bed: 10 Expected date: Expected time: Means of arrival: Comments: [id number] nonverbal breathing fast? documented in this encounter Plan of Treatment Scheduled Referrals Name Type Priority Associated Diagnoses Order Schedule AMB REFERRAL TO PHYSICAL THERAPY Outpatient Referral Routine Generalized muscle weakness Ordered: 11/20/2023 AMB REFERRAL TO OCCUPATIONAL THERAPY Outpatient Referral Routine Generalized muscle weakness Ordered: 11/20/2023 documented as of this encounter Procedures Procedure Name Priority Date/Time Associated Diagnosis Comments EEG 24 HOUR Routine 11/26/2023 8:02 AM CDT DIFFERENTIAL, MANUAL Routine 11/25/2023 6:16 AM CDT CBC WITH DIFFERENTIAL Routine 11/25/2023 6:16 AM CDT URINALYSIS W/REFLEX MICROSCOPIC Routine 11/25/2023 6:16 AM CDT URINE CULTURE Routine 11/25/2023 6:16 AM CDT BASIC METABOLIC PANEL Routine 11/25/2023 6:[address] HEAD WO CONTRAST Stat 11/24/2023 7 :49 PM CDT BLOOD GAS ARTERIAL Routine 11/24/2023 6: 42 PM CDT DIFFERENTIAL, MANUAL Routine 11/24/2023 6:41 PM CDT LACTIC ACID Stat 11/24/2023 6:41 PM CDT CBC WITH DIFFERENTIAL Routine 11/24/2023 6:41 PM CDT PROLACTIN Routine 11/24/2023 6:41 PM CDT MAGNESIUM LEVEL Routine 11/24/2023 6:41 PM CDT BASIC METABOLIC PANEL Routine 11/24/2023 6:41 PM CDT POC GLUCOSE [...] DIFFERENTIAL, MANUAL Routine 11/22/2023 6:11 AM CDT CBC WITH DIFFERENTIAL Routine 11/22/2023 6:11 AM CDT BASIC METABOLIC PANEL Routine 11/22/2023 6:11 AM CDT HEMOGLOBIN AND [...] W/REFLEX MICROSCOPIC Stat 11/18/2023 1:39 PM CDT CBC WITH DIFFERENTIAL Routine 11/18/2023 4:35 AM CDT C-REACTIVE PROTEIN Routine 11/18/2023 4: 35 AM CDT COMPREHENSIVE METABOLIC PANEL Routine 11/18/2023 4:35 AM CDT ECHOCARDIOGRAM W/ CONTRAST AGENT Routine 11/17/2023 6:00 AM CDT BLOOD CULTURE Routine 11/17/2023 5:03 AM CDT BLOOD CULTURE Routine 11/17/2023 5:03 AM CDT C-REACTIVE PROTEIN Routine 11/17/2023 5: 03 AM CDT PHOSPHORUS Routine 11/17/2023 5:03 AM CDT MAGNESIUM LEVEL Routine 11/17/2023 5:03 AM CDT COMPREHENSIVE METABOLIC PANEL Routine 11/17/2023 5:03 AM CDT BLOOD CULTURE Routine 11/17/2023 4:55 AM CDT CBC WITH DIFFERENTIAL Routine 11/17/2023 4:55 AM CDT BLOOD CULTURE Routine 11/17/2023 4:[address] SINUS FACIAL BONES W CONTRAST Routine 11/17/2023 3:46 AM CDT CBC WITH DIFFERENTIAL Routine 11/16/2023 11:59 PM CDT PATHOLOGY Pathology 11/16/2023 6:26 PM CDT OH CHOLECSTOT/CHOLECSTOST W/EXPL DRG/RMVL ST1 SPX 11/16/2023 12:48 PM CDT OH LAPAROSCOPY SURG CHOLECYSTECTOMY 11/16/2023 12:48 PM CDT CBC WITH DIFFERENTIAL Routine 11/16/2023 3:53 AM CDT COMPREHENSIVE METABOLIC PANEL Routine 11/16/2023 3:53 AM CDT NM HEPATOBILIARY SCAN Stat 11/15/2023 10:30 AM CDT CBC WITH DIFFERENTIAL Routine 11/15/2023 3:17 AM CDT C-REACTIVE PROTEIN Routine 11/15/2023 3: 17 AM CDT COMPREHENSIVE METABOLIC PANEL Routine 11/15/2023 3:17 AM CDT BLOOD GAS VENOUS Routine 11/14/2023 7:28 PM CDT LACTIC ACID Stat 11/14/2023 5:23 PM CDT TROPONIN 6 HR, 5TH GEN Stat 4 3:44 AM CDT CBC WITH DIFFERENTIAL Stat 11/14/2023 3:44 AM CDT COMPREHENSIVE METABOLIC PANEL Stat 11/14/2023 3:44 AM CDT TROPONIN 2 HR, 5TH GEN Timed Study 10:25 PM CDT C-REACTIVE PROTEIN Stat 11/13/2023 10:[address] CHEST ABDOMEN PELVIS WO CONT Stat 11/13/2023 8:39 PM CDT POC LACTIC ACID Stat 11/13/2023 6:57 PM CDT TROPONIN BASELINE, 5TH GEN Stat 11/13/2023 6:51 PM CDT BLOOD CULTURE Stat 11/13/2023 6:51 PM CDT BLOOD CULTURE Stat 11/13/2023 6:51 PM CDT BLOOD CULTURE PATHOGEN PCR PANEL Routine 11/13/2023 6:51 PM CDT CBC WITH DIFFERENTIAL Stat 11/13/2023 6:51 PM CDT PROLACTIN Stat 11/13/2023 6:51 PM CDT BLOOD CULTURE Stat 11/13/2023 6:51 PM CDT BLOOD CULTURE Stat 11/13/2023 6:51 PM CDT BRAIN NATRIURETIC PEPTIDE, BNP OR PROBNP Stat 11/13/2023 6:51 PM CDT LIPASE Stat 11/13/2023 6:51 PM CDT COMPREHENSIVE METABOLIC PANEL Stat 11/13/2023 6:51 PM CDT EKG 12-LEAD Stat 11/13/2023 6:26 PM CDT RESPIRATORY PATHOGEN PCR PANEL Stat 11/13/2023 6:11 PM CDT documented in this encounter Results * EEG 24 HOUR (11/26/2023 8:02 AM CDT) Narrative [facility] - 11/26/2023 8:02 AM CDT Raleigh Kaplan MD ? 11/26/2023 ??5:05 PM Video-EEG Report Patient Name: Curt Beebe [facility] Medical Record Number (MRN): [id number] Date of (): 1985 Start Time: 9:22 AM on 11/25/2023 ? End Time: 7 AM on 11/26/2023 Introduction: Mr. Beebe is a 38 y.o. male. Reason for [...] (ABNORMAL) MANUAL DIFFERENTIAL (11/25/2023 6:16 AM CDT) SEGMENTED NEUTROPHILS 61 % 11/25/2023 7:04 AM [facility] LYMPHOCYTES RELATIVE 24(L) 43 - 53 % 11/25/2023 7:04 AM [facility] ATYPICAL LYMPHOCYTES RELATIVE 5 0 - 5 % 11/25/2023 7:04 AM [facility] MONOCYTES RELATIVE 4 % 11/25/2023 7:04 AM [email or web address] EOSINOPHILS RELATIVE 3 % 11/25/2023 7:04 AM [email or web address] METAMYELOCYTES RELATIVE 2(H) <=0 % 11/25/2023 7:04 AM [facility] MYELOCYTES - REL (DIFF) 2(H) <=0 % 11/25/2023 7:04 AM [facility] NEUTROPHILS ABSOLUTE COUNT 5.35 1.90 - 7.00 K/uL 11/25/2023 7:04 AM [facility] LYMPHOCYTES ABSOLUTE 2.08 0.70 - 4.50 K/uL 11/25/2023 7:04 AM [facility] MONOCYTES ABSOLUTE 0.32 0.10 - 1.30 K/uL 11/25/2023 7:04 AM [facility] EOSINOPHILS ABSOLUTE 0.24 0.00 - 0.70 K/uL 11/25/2023 7:04 AM [facility] TOTAL CELLS COUNTED IN DIFF 109 11/25/2023 7:04 AM [facility] RBC MORPHOLOGY abnormal 11/25/2023 7:04 AM [facility] PLATELET EST. Consistent w Count 11/25/2023 7:04 AM [facility] ANISOCYTOSIS 2+ /hpf 11/25/2023 7:04 AM [facility] MACROCYTES 1+ /hpf 11/25/2023 7:04 AM [facility] POLYCHROMASIA 2+ /hpf 11/25/2023 7:04 AM [facility] Blood Venipuncture / Unknown 11/25/2023 6:16 AM CDT 11/25/2023 6:21 AM CDT Yaima Mitchell MD HEMATOLOGY ORDERABLE S COM [facility] CLIA# [id number] 5 SSharif [facility] [place] [address] * (ABNORMAL) CBC WITH DIFFERENTIAL (11/25/2023 6:16 AM CDT) Pathologist [facility] WBC 8.7 4.0 - 9.8 K/uL 11/25/2023 6:32 AM CDT [facility] RBC 2.72(L) 4.50 - 5.40 M/uL 11/25/2023 6:32 AM CDT [facility] HEMOGLOBIN 8.5(L) 13.6 - 16.5 g/dL 11/25/2023 6:32 AM CDT [facility] HEMATOCRIT 27.1(L) 40.0 - 48.0 % 11/25/2023 6:32 AM CDT [facility] . [facility] MCV 99.6(H) 82.0 - 99.0 fL 11/25/2023 6:32 AM CDT [facility] . [facility] MCH 31.3 27.2 - 32.6 pg 11/25/2023 6:32 AM CDT [facility] - . [facility] MCHC 31.4(L) 31.5 - 35.5 g/dL 11/25/2023 6:32 AM CDT [facility] - . [facility] RDW 14.9(H) 11.5 - 14.5 % 11/25/2023 6:32 AM CDT [facility] - . [facility] RDW-STDEV 49.1(H) 37.1 - 48.7 fL 11/25/2023 6:32 AM CDT [facility] - . [facility] PLATELETS 329 140 - 350 K/uL 11/25/2023 6:32 AM CDT [facility] SYSTEM MPV 9.0(L) 9.3 - 12.4 fL 11/25/2023 6:32 AM [facility] [employer] LABORATORY SERVICES [facility] Blood Venipuncture / Unknown 11/25/2023 6:16 AM CDT 11/25/2023 6:21 AM CDT Yaima Mitchell MD HEMATOLOGY ORDERABLE S [facility] [id number] [address] [facility] [facility] [place] [address] * (ABNORMAL) BASIC METABOLIC PANEL (11/25/2023 6:16 AM CDT) SODIUM 137 136 - 145 mmol/L 11/25/2023 7:29 AM [facility] [employer] LABORATORY [facility] POTASSIUM 4.1 3.5 - 5.0 mmol/L 11/25/2023 7:29 AM [facility] [employer] LABORATORY [facility] CHLORIDE 106 98 - 107 mmol/L 11/25/2023 7:29 AM [facility] One[facility] CO2 21(L) 22 - 29 mmol/L 11/25/2023 7:29 AM [facility] LABORATORY [facility] CALCIUM 8.8 8.6 - 10.2 mg/dL 11/25/2023 7:29 AM [facility] LABORATORY [facility] BUN 16 6 - 20 mg/dL 11/25/2023 7:29 AM [facility] LABORATORY [facility] CREATININE 0.70 0.67 - 1.17 mg/dL 11/25/2023 7:29 AM [facility] [employer] [facility] GLUCOSE 94 74 - 99 mg/dL 11/25/2023 7:29 AM [facility] [employer] LABORATORY SERVICES [facility] GFR >60 >=60 mL/min/1.7 3 sq meter 11/25/2023 7:29 AM [facility] [employer] LABORATORY SERVICES [facility] Comment:eGFR calculated with 2020 CKD-EPI equation. Vegetarian diet, extremely high or low muscle mass, and may affect results. Cystatin C with Glomerular Filtration Rate is a suitable alternative for these patients. ANION GAP 10 8 - 16 mmol/L 11/25/2023 7:29 AM CDT [employer] LABORATORY SERVICES - [facility] Blood Venipuncture / Unknown 11/25/2023 6:16 AM CDT 11/25/2023 6:21 AM CDT Lyndon Gupta DO CHEMISTRY ORDERABLE S Performing Organization Address City/[facility]/ZIP Co de Phone Number [facility] CLIA# [id number] [address] [place] [address] * URINE CULTURE (11/25/2023 6:16 AM CDT) CULTURE No growth at 24 hours 11/26/2023 7:11 AM CDT [employer] LABORATORY SERVICES [facility] Urine URINE SPECIMEN OBTAINED BY CLEAN CATCH PROCEDURE / Unknown Collection / Unknown 11/25/2023 6:16 AM CDT 11/25/2023 6:40 AM CDT Lyndon Gupta DO 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 - GENE RAL ORDERABLES Performing Organization Address City/[facility]/ZIP Co de Phone Number [facility] [id number] [address] [place] [address] * URINALYSIS WITH REFLEX MICROSCOPIC (11/25/2023 6:16 AM CDT) COLOR UA Yellow Pale to Dark Yellow 11/25/2023 6:46 AM CDT [employer] LABORATORY SERVICES - [facility] CLARITY UA Clear Clear 11/25/2023 6:46 AM CDT [employer] LABORATORY SERVICES - . [facility] SPECIFIC GRAVITY UA 1.026 1.003 - 1.035 11/25/2023 6:46 AM CDT [employer] LABORATORY SERVICES - . [facility] PH UA 5.0 5.0 - 8.0 11/25/2023 6:46 AM CDT [employer] LABORATORY SERVICES - . [facility] LEUKOCYTE ESTERASE UA Negative Negative 11/25/2023 6:46 AM CDT [employer] LABORATORY SERVICES - . [facility] NITRITE UA Negative Negative 11/25/2023 6:46 AM CDT [facility] LABORATORY [facility] PROTEIN UA Negative Negative 11/25/2023 6:46 AM CDT [facility] LABORATORY [facility] GLUCOSE UA Negative Negative 11/25/2023 6:46 AM CDT [facility] KETONES UA Negative Negative 11/25/2023 6:46 AM CDT [facility] LABORATORY [facility] UROBILINOGEN UA Normal <2.0 mg/dL 6:46 AM CDT [facility] LABORATORY [facility] BILIRUBIN UA Negative Negative 11/25/2023 6:46 AM CDT [facility] BLOOD UA Negative Negative 11/25/2023 6:46 AM CDT [facility] LABORATORY [facility] Urine URINE SPECIMEN OBTAINED BY CLEAN CATCH PROCEDURE / Unknown Collection / Unknown 11/25/2023 6:16 AM CDT 11/25/2023 6:40 AM CDT Lyndon Gupta DO URINE ORDERABLES Performing Organization Address City/State/[facility] Co de Phone Number [facility]# [id number] [address] [place] [address] * CT HEAD WO CONTRAST (11/24/2023 7:49 PM CDT) Anatomical Region Laterality Modality Head Computed Tomogra phy 11/24/2023 7:50 PM CDT Impressions 11/24/2023 7:58 PM CDT IMPRESSION: ?? No acute intracranial abnormality. DICTATION LOCATION: Location 1 - [facility] Narrative 11/24/2023 7:58 PM CDT EXAMINATION: CT OF THE HEAD WITHOUT CONTRAST ?? DATE: 11/24/2023 7:49 PM HISTORY: Altered mental status. TECHNIQUE: Noncontrast images of the head were obtained from the vertex to the skull base using standard protocol. The examination was performed with the adjustment of mA according to the patient size and/or the use of Iterative Reconstruction Technique. ?? COMPARISON: None FINDINGS: PARENCHYMA AND VENTRICLES: No midline shift or mass effect. No acute intracranial hemorrhage. No evidence of acute ischemic infarct. ?? Normal ventricular size. EXTRA-AXIAL: No abnormal extra-axial collection. SOFT TISSUES: Normal. ?? SINUSES: Clear. ?? MASTOID AIR CELLS: Clear. ORBITS: Normal. OSSEOUS STRUCTURES: Unremarkable. Procedure Note Ac Pelletier MD - 11/24/2023 EXAMINATION: CT OF THE HEAD WITHOUT CONTRAST DATE: 11/24/2023 7:49 PM HISTORY: Altered mental status. TECHNIQUE: Noncontrast images of the head were obtained from the vertex to the skull base using standard protocol. The examination was performed with the adjustment of mA according to the patient size and/or the use of Iterative Reconstruction Technique. COMPARISON: None FINDINGS: PARENCHYMA AND VENTRICLES: No midline shift or mass effect. No acute intracranial hemorrhage. No evidence of acute ischemic infarct. Normal ventricular size. EXTRA-AXIAL: No abnormal extra-axial collection. SOFT TISSUES: Normal. SINUSES: Clear. MASTOID AIR CELLS: Clear. ORBITS: Normal. OSSEOUS STRUCTURES: Unremarkable. IMPRESSION: No acute intracranial abnormality. DICTATION LOCATION: Location 1 - [facility] Lyndon Gupta DO CT ORDERABLES * (ABNORMAL) BLOOD GAS ARTERIAL (11/24/2023 6:42 PM CDT) PH ARTERIAL 7.39 7.35 - 7.45 11/24/2023 6:58 PM T [facility] LABORATORY SERVICES [facility] PCO2 ARTERIAL 37 35 - 48 mm Hg 11/24/2023 6:58 PM T [facility] LABORATORY SERVICES [facility] PO2 ARTERIAL 89 83 - 108 mm Hg 11/24/2023 6:58 PM T [facility] LABORATORY SERVICES [facility] HCO3 ARTERIAL 22 22 - 26 mmol/L 11/24/2023 6:58 PM T [facility] LABORATORY SERVICES [facility] BASE EXCESS ABG -2.3(L) -2.0 - 3.0 mmol/L 11/24/2023 6:58 PM T [facility] LABORATORY SERVICES [facility] O2 SAT EST ARTERIAL 98 95 - 99 % 11/24/2023 6:58 PM T [facility] LABORATORY SERVICES [facility] P/F RATIO ARTERIAL 424 11/24/2023 6:58 PM [facility] LABORATORY [facility] OXYGEN MODE Room Air 11/24/2023 6:58 PM CDT [employer] LABORATORY SERVICES - [facility] FIO2 21.0 21.0 - 100.0 % 11/24/2023 6:58 PM CDT [employer] LABORATORY SERVICES - [facility] Blood, arterial Arterial / Unknown 2023 6:42 PM CDT 11/24/2023 6:47 PM CDT Chely L Elías [employer] ABG ORDERABLES [facility] LABORATORY SERVICES - [facility] CLIA# [id number] [address] [facility] [place] [address] * (ABNORMAL) MANUAL DIFFERENTIAL (11/24/2023 6:41 PM CDT) SEGMENTED NEUTROPHILS 67 % 11/24/2023 7:42 PM CDT [employer] LABORATORY SERVICES - [facility] LYMPHOCYTES RELATIVE 21(L) 43 - 53 % 11/24/2023 7:42 PM CDT [employer] LABORATORY SERVICES - . [facility] MONOCYTES RELATIVE 5 % 11/24/2023 7:42 PM CDT [employer] LABORATORY SERVICES - . [facility] EOSINOPHILS RELATIVE 5 % 11/24/2023 7:42 PM CDT [employer] LABORATORY SERVICES - . [facility] METAMYELOCYTES RELATIVE 3(H) <=0 % 11/24/2023 7:42 PM CDT [employer] LABORATORY SERVICES - [facility] MYELOCYTES - REL (DIFF) 1(H) <=0 % 11/24/2023 7:42 PM CDT [employer] LABORATORY SERVICES - . [facility] NEUTROPHILS ABSOLUTE COUNT 6.87 1.90 - 7.00 K/uL 11/24/2023 7:42 PM CDT [employer] LABORATORY SERVICES - . [facility] LYMPHOCYTES ABSOLUTE 2.13 0.70 - 4.50 K/uL 11/24/2023 7:42 PM CDT [employer] LABORATORY SERVICES - . [facility] MONOCYTES ABSOLUTE 0.46 0.10 - 1.30 K/uL 11/24/2023 7:42 PM CDT [employer] LABORATORY SERVICES - . [facility] EOSINOPHILS ABSOLUTE 0.46 0.00 - 0.70 K/uL 11/24/2023 7:42 PM CDT [facility] LABORATORY SERVICES - [facility] TOTAL CELLS COUNTED IN DIFF 111 11/24/2023 7:42 PM CDT [facility] LABORATORY SERVICES - . [facility] RBC MORPHOLOGY abnormal 11/24/2023 7:42 PM CDT [facility] LABORATORY SERVICES - . [facility] PLATELET EST. Consistent w Count 11/24/2023 7:42 PM CDT [facility] LABORATORY SERVICES - . [facility] POLYCHROMASIA 1+ /hpf 11/24/2023 7:42 PM CDT [facility] LABORATORY SERVICES - [facility] Blood Venipuncture / Unknown 11/24/2023 6:41 PM CDT 11/24/2023 6:47 PM CDT Chely L Elísa [employer] HEMATOLOGY ORDERABLE S COM Performing Organization Address City/[facility]/ZIP Co de Phone Number [facility]ORATORY [facility] CLIA# [id number] [address] [place] [address] * MAGNESIUM LEVEL (11/24/2023 6:41 PM CDT) MAGNESIUM 2.6 1.6 - 2.6 mg/dL 11/24/2023 7:27 PM CDT [facility] LABORATORY SERVICES - [facility] Blood Venipuncture / Unknown 11/24/2023 6:41 PM CDT 11/24/2023 6:47 PM CDT Chelytino Mckinley [employer] CHEMISTRY ORDERABLES Performing Organization Address City/[facility]/ZIP Co de Phone Number [facility] CLIA# [id number] [address] [place] [address] * (ABNORMAL) BASIC METABOLIC PANEL (11/24/2023 6:41 PM CDT) SODIUM 137 136 - 145 mmol/L 11/24/2023 7:27 PM CDT [facility] LABORATORY SERVICES - [facility] POTASSIUM 4.0 3.5 - 5.0 mmol/L 11/24/2023 7:27 PM CDT [facility] LABORATORY SERVICES - [facility] CHLORIDE 105 98 - 107 mmol/L 11/24/2023 7:27 PM T [facility] LABORATORY SERVICES - . [facility] CO2 20(L) 22 - 29 mmol/L 11/24/2023 7:27 PM CDT [facility] LABORATORY SERVICES - . [facility] CALCIUM 8.7 8.6 - 10.2 mg/dL 11/24/2023 7:27 PM CDT [facility] LABORATORY SERVICES - . [facility] BUN 18 6 - 20 mg/dL 11/24/2023 7:27 PM T [facility] LABORATORY SERVICES - . [facility] CREATININE 0.67 0.67 - 1.17 mg/dL 11/24/2023 7:27 PM T [facility] LABORATORY SERVICES - . [facility] GLUCOSE 123(H) 74 - 99 mg/dL 11/24/2023 7:27 PM T [facility] LABORATORY [facility] GFR >60 >=60 mL/min/1.7 3 sq meter 11/24/2023 7:27 PM T [facility] LABORATORY SERVICES - [facility] Comment:eGFR calculated with 2020 CKD-EPI equation. Vegetarian diet, extremely high or low muscle mass, and may affect results. Cystatin C with Glomerular Filtration Rate is a suitable alternative for these patients. ANION GAP 12 8 - 16 mmol/L 11/24/2023 7:27 PM T [facility] LABORATORY SERVICES [facility] Blood Venipuncture / Unknown 11/24/2023 6:41 PM CDT 11/24/2023 6:47 PM CDT Chely Mckinley [employer] CHEMISTRY ORDERABLES [facility] LABORATORY SERVICES [facility] CLIA# [id number] [address] [place], [place] [address] * (ABNORMAL) CBC WITH DIFFERENTIAL (11/24/2023 6:41 PM CDT) WBC 10.3(H) 4.0 - 9.8 K/uL 11/24/2023 7:05 PM CDT [facility] LABORATORY SERVICES [facility] RBC 2.73(L) 4.50 - 5.40 M/uL 11/24/2023 7:05 PM CDT [facility] LABORATORY SERVICES - [facility] HEMOGLOBIN 8.6(L) 13.6 - 16.5 g/dL 11/24/2023 7:05 PM T [facility] LABORATORY SERVICES - [facility] HEMATOCRIT 25.9(L) 40.0 - 48.0 % 11/24/2023 7:05 PM CDT [facility] LABORATORY SERVICES - [facility] MCV 94.9 82.0 - 99.0 fL 11/24/2023 7:05 PM CDT [facility] LABORATORY SERVICES - [facility] MCH 31.5 27.2 - 32.6 pg 11/24/2023 7:05 PM CDT [facility]ATORY SERVICES - [facility] MCHC 33.2 31.5 - 35.5 g/dL 11/24/2023 7:05 PM CDT [facility]ATORY SERVICES - [facility] RDW 14.5 11.5 - 14.5 % 11/24/2023 7:05 PM T [facility] LABORATORY SERVICES - [facility] RDW-STDEV 46.1 37.1 - 48.7 fL 11/24/2023 7:05 PM CDT [facility] LABORATORY SERVICES - [facility] PLATELETS 370(H) 140 - 350 K/uL 11/24/2023 7:05 PM T [facility]ORATORY SERVICES - [facility] MPV 8.8(L) 9.3 - 12.4 fL 11/24/2023 7:05 PM T [facility]ATORY SERVICES - [facility] Blood Venipuncture / Unknown 11/24/2023 6:41 PM CDT 11/24/2023 6:47 PM CDT Chely Mckinley [facility] HEMATOLOGY ORDERABLE S [facility] CLIA# [id number] [address] [place] [id number] * LACTIC ACID (11/24/2023 6:41 PM CDT) LACTIC ACID 1.2 <=2.0 mmol/L 11/24/2023 7:12 PM CDT [facility] LABORATORY SERVICES [facility] Blood Venipuncture / Unknown 11/24/2023 6:41 PM CDT 11/24/2023 6:47 PM CDT Chely Mckinley [employer] CHEMISTRY ORDERABLES Performing Organization Address [facility]/ZIP Co de Phone Number [facility]# [id number] [address] [place] [address] * PROLACTIN (11/24/2023 6:41 PM CDT) Pathologist [facility] PROLACTIN 7.5 4.0 - 15.2 ng/mL 11/24/2023 8:02 PM CDT [facility] Blood Venipuncture / Unknown 11/24/2023 6:41 PM CDT 11/24/2023 6:47 PM CDT Lyndon Gupta DO CHEMISTRY ORDERABLE S Performing Organization Address [facility] Co al Phone Number [facility]# [id number] [address] [place] [address] * (ABNORMAL) POC GLUCOSE (11/24/2023 6:17 PM CDT) [facility] GLUCOSE POC 112(H) 74 - 99 mg/dL 11/24/2023 6:17 PM CDT [facility] SPECIMEN SOURCE, GLUCOSE POC Whole Blood 11/24/2023 6:17 PM CDT [facility] Blood, whole 11/24/2023 6:17 PM CDT 11/24/2023 6:25 PM CDT Lyndon Gupta DO POINT OF CARE TESTI NG Performing Organization Address [facility] Co de Phone Number [facility]# [id number] [address] [place] [address] * BLOOD CULTURE (11/24/2023 1:56 PM CDT) BLOOD CULTURE No growth 11/29/2023 2:51 PM CDT [facility] Blood (Peripheral) Venipuncture / Unknown 11/24/2023 1:56 PM CDT 11/24/2023 1:59 PM CDT Lyndonsulaiman Gupta DO 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 - GENE RAL ORDERABLES Performing Organization Address [facility]/ZIP Co de Phone Number [facility]# [id number] [address] [place] [address] * BLOOD CULTURE (11/24/2023 1:56 PM CDT) BLOOD CULTURE No growth 11/29/2023 2:51 PM CDT [facility] Blood (Peripheral) Venipuncture / Unknown 11/24/2023 1:56 PM CDT 11/24/2023 1:59 PM CDT Narrative [facility] - 11/29/2023 2:51 PM CDT Specimen processed with suboptimal blood volume collected. Lyndon Derek Gupta DO 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 - GENE RAL ORDERABLES Performing Organization Address [facility] Co de Phone Number [facility]# [id number] [address] [place] [address] * XR CHEST PA OR AP 1 VW (11/24/2023 11:12 AM CDT) Anatomical Region Laterality Modality Chest Computed Radiogr [...] Gupta DO DIAGNOSTIC IMAGING ORDERABLES * (ABNORMAL) MANUAL DIFFERENTIAL (11/24/2023 5:08 AM CDT) SEGMENTED NEUTROPHILS 61 % 11/24/2023 8:14 AM CDT [facility]ORATORY SERVICES - . [facility] LYMPHOCYTES RELATIVE 27(L) 43 - 53 % 11/24/2023 8:14 AM CDT [facility] ATYPICAL LYMPHOCYTES RELATIVE 5 0 - 5 % 11/24/2023 8:14 AM CDT [facility] MONOCYTES RELATIVE 2 % 11/24/2023 8:14 AM CDT [facility] EOSINOPHILS RELATIVE 3 % 11/24/2023 8:14 AM CDT [facility] BASOPHILS RELATIVE 2 % 11/24/2023 8:14 AM CDT [facility] METAMYELOCYTES RELATIVE 1(H) <=0 % 11/24/2023 8:14 AM CDT [facility] - [facility] NEUTROPHILS ABSOLUTE COUNT 5.97 1.90 - 7.00 K/uL 11/24/2023 8:14 AM CDT [facility] - [facility] LYMPHOCYTES ABSOLUTE 2.67 0.70 - 4.50 K/uL 11/24/2023 8:14 AM CDT [facility] MONOCYTES ABSOLUTE 0.18 0.10 - 1.30 K/uL 11/24/2023 8:14 AM CDT [facility] - [facility] EOSINOPHILS ABSOLUTE 0.27 0.00 - 0.70 K/uL 11/24/2023 8:14 AM CDT [facility] LABORATORY SERVICES - [facility] BASOPHILS ABSOLUTE 0.18 0.00 - 0.20 K/uL 11/24/2023 8:14 AM CDT [facility] LABORATORY SERVICES [facility] TOTAL CELLS COUNTED IN DIFF 110 11/24/2023 8:14 AM CDT [facility] SERVICES [facility] RBC MORPHOLOGY abnormal 11/24/2023 8:14 AM CDT [facility]ATORY SERVICES [facility] PLATELET EST. Consistent w Count 11/24/2023 8:14 AM CDT [facility] ANISOCYTOSIS 1+ /hpf 11/24/2023 8:14 AM CDT [facility]ATORY SERVICES - [facility] POLYCHROMASIA 1+ /hpf 11/24/2023 8:14 AM CDT [facility] Blood Venipuncture / Unknown 11/24/2023 5:08 AM CDT 11/24/2023 5:12 AM CDT Yaima Mitchell MD HEMATOLOGY ORDERABLE S COM [facility] SERVICES - [facility]# [id number] [address] [place] [address] * (ABNORMAL) CBC WITH DIFFERENTIAL (11/24/2023 5:08 AM CDT) WBC 9.8 4.0 - 9.8 K/uL 11/24/2023 5:37 AM CDT [facility] LABORATORY SERVICES - . [facility] RBC 2.90(L) 4.50 - 5.40 M/uL 11/24/2023 5:37 AM CDT [facility] LABORATORY SERVICES - . [facility] HEMOGLOBIN 9.0(L) 13.6 - 16.5 g/dL 11/24/2023 5:37 AM CDT [facility] LABORATORY SERVICES - . [facility] HEMATOCRIT 27.5(L) 40.0 - 48.0 % 11/24/2023 5:37 AM CDT [facility] LABORATORY SERVICES - . [facility] MCV 94.8 82.0 - 99.0 fL 11/24/2023 5:37 AM CDT [facility]ORATORY SERVICES - [facility] MCH 31.0 27.2 - 32.6 pg 11/24/2023 5:37 AM CDT [facility] - [facility] MCHC 32.7 31.5 - 35.5 g/dL 11/24/2023 5:37 AM CDT [facility] RDW 13.9 11.5 - 14.5 % 11/24/2023 5:37 AM CDT [facility]ORY SERVICES - . [facility] RDW-STDEV 44.9 37.1 - 48.7 fL 11/24/2023 5:37 AM CDT [facility] SERVICES - . [facility] PLATELETS 361(H) 140 - 350 K/uL 11/24/2023 5:37 AM CDT [facility] SERVICES - . [facility] MPV 8.9(L) 9.3 - 12.4 fL 11/24/2023 5:37 AM CDT [facility] Blood Venipuncture / Unknown 11/24/2023 5:08 AM CDT 11/24/2023 5:12 AM CDT Yaima Mitchell MD HEMATOLOGY ORDERABLE S [facility] LABORATORY SERVICES [facility]# [id number] [address] [facility] [address] * (ABNORMAL) MANUAL DIFFERENTIAL (11/23/2023 6:18 AM CDT) SEGMENTED NEUTROPHILS 67 % 11/23/2023 7:24 AM CDT [facility] LYMPHOCYTES RELATIVE 15(L) 43 - 53 % 11/23/2023 7:24 AM CDT [facility] LABORATORY SERVICES - [facility] ATYPICAL LYMPHOCYTES RELATIVE 5 0 - 5 % 11/23/2023 7:24 AM CDT [facility] SERVICES - [facility] MONOCYTES RELATIVE 5 % 11/23/2023 7:24 AM CDT [facility] SERVICES - [facility] EOSINOPHILS RELATIVE 5 % 11/23/2023 7:24 AM CDT [facility] SERVICES - . [facility] BASOPHILS RELATIVE 3 % 11/23/2023 7:24 AM CDT [facility] METAMYELOCYTES RELATIVE 1(H) <=0 % 11/23/2023 7:24 AM CDT [facility] MYELOCYTES - REL (DIFF) 1(H) <=0 % 11/23/2023 7:24 AM CDT [facility] NEUTROPHILS ABSOLUTE COUNT 5.72 1.90 - 7.00 K/uL 11/23/2023 7:24 AM CDT [facility] LYMPHOCYTES ABSOLUTE 1.24 0.70 - 4.50 K/uL 11/23/2023 7:24 AM CDT [facility] MONOCYTES ABSOLUTE 0.39 0.10 - 1.30 K/uL 11/23/2023 7:24 AM CDT [facility] EOSINOPHILS ABSOLUTE 0.39 0.00 - 0.70 K/uL 11/23/2023 7:24 AM CDT [facility] BASOPHILS ABSOLUTE 0.23(H) 0.00 - 0.20 K/uL 11/23/2023 7:24 AM CDT [facility] TOTAL CELLS COUNTED IN DIFF 110 11/23/2023 7:24 AM T [facility] RBC MORPHOLOGY abnormal 11/23/2023 7:24 AM CDT [facility] PLATELET EST. Consistent w Count 11/23/2023 7:24 AM CDT [facility] POLYCHROMASIA 1+ /hpf 11/23/2023 7:24 AM T [facility] Blood Venipuncture / Unknown 11/23/2023 6:18 AM CDT 11/23/2023 6:24 AM CDT Yaima Mitchell MD HEMATOLOGY ORDERABLE S COM [facility] CLIA# [id number] [address] [facility] [place] [id number] * (ABNORMAL) CBC WITH DIFFERENTIAL (11/23/2023 6:18 AM CDT) WBC 8.5 4.0 - 9.8 K/uL 11/23/2023 6:46 AM CDT [facility] RBC 2.90(L) 4.50 - 5.40 M/uL 11/23/2023 6:46 AM CDT [facility] HEMOGLOBIN 8.9(L) 13.6 - 16.5 g/dL 11/23/2023 6:46 AM CDT [facility] HEMATOCRIT 27.0(L) 40.0 - 48.0 % 11/23/2023 6:46 AM CDT [facility] MCV 93.1 82.0 - 99.0 fL 11/23/2023 6:46 AM CDT [facility] MCH 30.7 27.2 - 32.6 pg 11/23/2023 6:46 AM CDT [facility] MCHC 33.0 31.5 - 35.5 g/dL 11/23/2023 6:46 AM CDT [facility] GENERAL LABORATORY [facility] - . [facility] RDW 13.6 11.5 - 14.5 % 11/23/2023 6:46 AM CDT [facility] - . [facility] RDW-STDEV 44.3 37.1 - 48.7 fL 11/23/2023 6:46 AM CDT [facility] - . [facility] PLATELETS 295 140 - 350 K/uL 11/23/2023 6:46 AM CDT [facility] - . [facility] MPV 8.9(L) 9.3 - 12.4 fL 11/23/2023 6:46 AM CDT [facility] - . [facility] Blood Venipuncture / Unknown 11/23/2023 6:18 AM CDT 11/23/2023 6:24 AM CDT Yaima Mitchell MD HEMATOLOGY ORDERABLE S [facility] CLIA# [id number] [address] [place] [address] * (ABNORMAL) MANUAL DIFFERENTIAL (11/22/2023 6:11 AM CDT) Pathologist [facility] SEGMENTED NEUTROPHILS 71 % 11/22/2023 7:25 AM CDT [facility] LYMPHOCYTES RELATIVE 13(L) 43 - 53 % 11/22/2023 7:25 AM CDT [facility] ATYPICAL LYMPHOCYTES RELATIVE 3 0 - 5 % 11/22/2023 7:25 AM CDT [facility] MONOCYTES RELATIVE 8 % 11/22/2023 7:25 AM CDT [facility] EOSINOPHILS RELATIVE 2 % 11/22/2023 7:25 AM CDT [facility] BASOPHILS RELATIVE 1 % 11/22/2023 7:25 AM CDT [facility] METAMYELOCYTES RELATIVE 2(H) <=0 % 11/22/2023 7:25 AM CDT [facility] - . [place] MYELOCYTES - REL (DIFF) 1(H) <=0 % 11/22/2023 7:25 AM CDT [facility] NEUTROPHILS ABSOLUTE COUNT 7.18(H) 1.90 - 7.00 K/uL 11/22/2023 7:25 AM CDT [facility] LYMPHOCYTES ABSOLUTE 1.33 0.70 - 4.50 K/uL 11/22/2023 7:25 AM CDT [facility] MONOCYTES ABSOLUTE 0.80 0.10 - 1.30 K/uL 11/22/2023 7:25 AM CDT [facility] EOSINOPHILS ABSOLUTE 0.18 0.00 - 0.70 K/uL 11/22/2023 7:25 AM CDT [email or web address] BASOPHILS ABSOLUTE 0.09 0.00 - 0.20 K/uL 11/22/2023 7:25 AM CDT [facility] - . [place] TOTAL CELLS COUNTED IN DIFF 114 11/22/2023 7:25 AM CDT [facility] RBC MORPHOLOGY abnormal 11/22/2023 7:25 AM CDT [facility] - . [facility] PLATELET EST. Consistent w Count 11/22/2023 7:25 AM CDT [facility] - . [facility] PLATELET MORPHOLOGY abnormal 11/22/2023 7:25 AM CDT [facility] ANISOCYTOSIS 1+ /hpf 11/22/2023 7:25 AM CDT [facility] POIKILOCYTES 1+ /hpf 11/22/2023 7:25 AM CDT [facility] POLYCHROMASIA 1+ /hpf 11/22/2023 7:25 AM CDT [facility] OVALOCYTES 1+ /hpf 11/22/2023 7:25 AM CDT [facility] - [facility] GIANT PLATELETS Present 7:25 AM CDT [facility] Blood Venipuncture / Unknown 11/22/2023 6:11 AM CDT 11/22/2023 6:17 AM CDT Yaima Mitchell MD HEMATOLOGY ORDERABLE S COM [id number] [place] [address] * (ABNORMAL) CBC WITH DIFFERENTIAL (11/22/2023 6:11 AM CDT) WBC 10.1(H) 4.0 - 9.8 K/uL 11/22/2023 6:37 AM CDT [facility] - . [facility] RBC 2.64(L) 4.50 - 5.40 M/uL 11/22/2023 6:37 AM CDT [facility] HEMOGLOBIN 8.4(L) 13.6 - 16.5 g/dL 11/22/2023 6:37 AM CDT [facility] HEMATOCRIT 25.2(L) 40.0 - 48.0 % 11/22/2023 6:37 AM CDT [facility] MCV 95.5 82.0 - 99.0 fL 11/22/2023 6:37 AM CDT [facility] MCH 31.8 27.2 - 32.6 pg 11/22/2023 6:37 AM CDT [facility] MCHC 33.3 31.5 - 35.5 g/dL 11/22/2023 6:37 AM CDT [facility] - . [facility] RDW 13.3 11.5 - 14.5 % 11/22/2023 6:37 AM CDT [facility] RDW-STDEV 45.1 37.1 - 48.7 fL 11/22/2023 6:37 AM CDT [facility] - . [place] PLATELETS 335 140 - 350 K/uL 11/22/2023 6:37 AM CDT [facility] - . [place] MPV 9.1(L) 9.3 - 12.4 fL 11/22/2023 6:37 AM T [facility] Blood Venipuncture / Unknown 11/22/2023 6:11 AM CDT 11/22/2023 6:17 AM CDT Yaima Mitchell MD HEMATOLOGY ORDERABLE S [facility] [id number] [facility] [place], [place] [id number] * (ABNORMAL) BASIC METABOLIC PANEL (11/22/2023 6:11 AM CDT) SODIUM 138 136 - 145 mmol/L 11/22/2023 6:56 AM T [facility] - . [place] POTASSIUM 4.0 3.5 - 5.0 mmol/L 11/22/2023 6:56 AM T [facility] CHLORIDE 107 98 - 107 mmol/L 11/22/2023 6:56 AM CDT [facility] CO2 21(L) 22 - 29 mmol/L 11/22/2023 6:56 AM CDT [facility] CALCIUM 8.5(L) 8.6 - 10.2 mg/dL 11/22/2023 6:56 AM CDT [facility] BUN 12 6 - 20 mg/dL 11/22/2023 6:56 AM CDT [facility] CREATININE 0.66(L) 0.67 - 1.17 mg/dL 11/22/2023 6:56 AM CDT [facility] GLUCOSE 113(H) 74 - 99 mg/dL 11/22/2023 6:56 AM CDT [facility] GFR >60 >=60 mL/min/1.7 3 sq meter 11/22/2023 6:56 AM T [facility] Comment:eGFR calculated with 2020 CKD-EPI equation. Vegetarian diet, extremely high or low muscle mass, and may affect results. Cystatin C with Glomerular Filtration Rate is a suitable alternative for these patients. ANION GAP 10 8 - 16 mmol/L 11/22/2023 6:56 AM T [facility] Blood Venipuncture / Unknown 11/22/2023 6:11 AM CDT 11/22/2023 6:17 AM CDT Jessica Angel MD CHEMISTRY ORDERABLES [facility] CLIA# [id number] [address] [place] [address] * (ABNORMAL) HEMOGLOBIN AND HEMATOCRIT (11/21/2023 12:21 PM CDT) [facility] HEMOGLOBIN 8.1(L) 13.6 - 16.5 g/dL 11/21/2023 12:37 PM CDT [facility] HEMATOCRIT 25.5(L) 40.0 - 48.0 % 11/21/2023 12:37 PM CDT [facility] Blood Venipuncture / Unknown 11/21/2023 12:21 PM CDT 11/21/2023 12:29 PM CDT Jessica Angel MD HEMATOLOGY ORDERABLE S [facility] CLIA# [id number] [address] [place] [address] * CTA CHEST W WO CONTRAST (11/21/2023 [...] ??Interval cholecystectomy. DICTATION LOCATION: Location 1 - [facility] 11/21/2023 10:38 AM CDT EXAMINATION: Computed tomography angiography (CTA) of the chest without and with intravenous contrast with reformatted images DATE: 11/21/2023 10:16 AM HISTORY: Pulmonary embolism (PE) suspected, high prob. 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 ?? TECHNIQUE: CTA of the chest was performed prior to and following the uneventful intravenous administration of IOPAMIDOL 61 % INTRAVENOUS SOLUTION (MULTI-DOSE BULK PACK) Given:80 mL contrast according to standard protocol. 3-D reconstructions were created on a separate workstation by a blood bank laboratory technologist and submitted for review. The examination [...] created on a separate workstation by a blood bank laboratory technologist and submitted for review. The examination [...] Interval cholecystectomy. DICTATION LOCATION: Location 1 - [facility] Jessica Angel MD CT ORDERABLES * (ABNORMAL) MANUAL DIFFERENTIAL (11/21/2023 5:54 AM CDT) Pathologist [facility] SEGMENTED NEUTROPHILS 70 % 11/21/2023 7:28 AM CDT [facility] LYMPHOCYTES RELATIVE 20(L) 43 - 53 % 11/21/2023 7:28 AM T [facility] MONOCYTES RELATIVE 7 % 11/21/2023 7:28 AM T [email or web address] - [facility] EOSINOPHILS RELATIVE 2 % 11/21/2023 7:28 AM T [facility] MYELOCYTES - REL (DIFF) 1(H) <=0 % 11/21/2023 7:28 AM T [facility] NEUTROPHILS ABSOLUTE COUNT 6.39 1.90 - 7.00 K/uL 11/21/2023 7:28 AM T [facility] LYMPHOCYTES ABSOLUTE 1.80 0.70 - 4.50 K/uL 11/21/2023 7:28 AM T [facility] MONOCYTES ABSOLUTE 0.66 0.10 - 1.30 K/uL 11/21/2023 7:28 AM T [facility] EOSINOPHILS ABSOLUTE 0.16 0.00 - 0.70 K/uL 11/21/2023 7:28 AM T [facility] TOTAL CELLS COUNTED IN DIFF 111 11/21/2023 7:28 AM T [facility] RBC MORPHOLOGY abnormal 11/21/2023 7:28 AM [email or web address] - [facility] PLATELET EST. Consistent w Count 11/21/2023 7:28 AM T [facility] ANISOCYTOSIS 1+ /hpf 11/21/2023 7:28 AM [email or web address] - [facility] MICROCYTES 1+ /hpf 11/21/2023 7:28 AM T [facility] POLYCHROMASIA 1+ /hpf 11/21/2023 7:28 AM T [facility] HYPOCHROMIA 1+ /hpf 11/21/2023 7:28 AM [email or web address] - [facility] Blood Venipuncture / Unknown 11/21/2023 5:54 AM CDT 11/21/2023 6:11 AM CDT Yaima Mitchell MD HEMATOLOGY ORDERABLE S COM [facility] CLIA# [id number] [address] [place] [address] * (ABNORMAL) CBC WITH DIFFERENTIAL (11/21/2023 5:54 AM CDT) [facility] WBC 9.1 4.0 - 9.8 K/uL 11/21/2023 6:51 AM CDT [facility] RBC 2.31(L) 4.50 - 5.40 M/uL 11/21/2023 6:51 AM CDT [facility] HEMOGLOBIN 7.3(L) 13.6 - 16.5 g/dL 11/21/2023 6:51 AM CDT [facility] HEMATOCRIT 22.1(L) 40.0 - 48.0 % 11/21/2023 6:51 AM CDT [facility] MCV 95.7 82.0 - 99.0 fL 11/21/2023 6:51 AM CDT [facility] MCH 31.6 27.2 - 32.6 pg 11/21/2023 6:51 AM CDT [facility] MCHC 33.0 31.5 - 35.5 g/dL 11/21/2023 6:51 AM CDT [facility] RDW 13.0 11.5 - 14.5 % 11/21/2023 6:51 AM CDT [facility] RDW-STDEV 44.4 37.1 - 48.7 fL 11/21/2023 6:51 AM CDT [facility] PLATELETS 324 140 - 350 K/uL 11/21/2023 6:51 AM CDT [facility] MPV 9.2(L) 9.3 - 12.4 fL 11/21/2023 6:51 AM CDT [facility] Blood Venipuncture / Unknown 11/21/2023 5:54 AM CDT 11/21/2023 6:11 AM CDT Yaima Mitchell MD HEMATOLOGY ORDERABLE S [facility] - [facility]# [id number] [address] [place] [address] * (ABNORMAL) COMPREHENSIVE METABOLIC PANEL (11/21/2023 5:54 AM CDT) SODIUM 139 136 - 145 mmol/L 11/21/2023 7:24 AM CDT [facility] POTASSIUM 3.6 3.5 - 5.0 mmol/L 11/21/2023 7:24 AM T [facility] CHLORIDE 107 98 - 107 mmol/L 11/21/2023 7:24 AM T [facility] CO2 21(L) 22 - 29 mmol/L 11/21/2023 7:24 AM T [facility] CALCIUM 8.1(L) 8.6 - 10.2 mg/dL 11/21/2023 7:24 AM T [facility] BUN 13 6 - 20 mg/dL 11/21/2023 7:24 AM T [facility] CREATININE 0.68 0.67 - 1.17 mg/dL 11/21/2023 7:24 AM T [facility] GLUCOSE 117(H) 74 - 99 mg/dL 11/21/2023 7:24 AM [facility] - [facility] TOTAL PROTEIN 5.8(L) 6.7 - 8.6 g/dL 11/21/2023 7:24 AM T [facility] ALBUMIN 3.0(L) 3.5 - 5.2 g/dL 11/21/2023 7:24 AM T [facility] BILIRUBIN TOTAL 0.4 0.3 - 1.2 mg/dL 11/21/2023 7:24 AM T [facility] ALKALINE PHOSPHATASE 206(H) 40 - 129 U/L 11/21/2023 7:24 AM T [facility] AST 33 <41 U/L 11/21/2023 7:24 AM T [facility] ALT 33 <42 U/L 11/21/2023 7:24 AM [facility] GFR >60 >=60 mL/min/1.7 3 sq meter 11/21/2023 7:24 AM [facility] Comment:eGFR calculated with 2020 CKD-EPI equation. Vegetarian diet, extremely high or low muscle mass, and may affect results. Cystatin C with Glomerular Filtration Rate is a suitable alternative for these patients. ANION GAP 11 8 - 16 mmol/L 11/21/2023 7:24 AM [facility] Blood Venipuncture / Unknown 11/21/2023 5:54 AM CDT 11/21/2023 6:11 AM CDT [facility] - 11/21/2023 7:24 AM CDT Samples containing indocyanine green cause interferences on Total and/or Direct Bilirubin and must not be measured. Yaima Mitchell MD CHEMISTRY ORDERABLES [facility]# [id number] [address] [facility] [place] [address] * (ABNORMAL) BLOOD GAS ARTERIAL (11/20/2023 2:48 PM CDT) PH ARTERIAL 7.47(H) 7.35 - 7.45 11/20/2023 2:56 PM CDT [facility] PCO2 ARTERIAL 32(L) 35 - 48 mm Hg 11/20/2023 2:56 PM T [facility] PO2 ARTERIAL 63(L) 83 - 108 mm Hg 11/20/2023 2:56 PM T [facility] HCO3 ARTERIAL 23 22 - 26 mmol/L 11/20/2023 2:56 PM T [facility] BASE EXCESS ABG -0.2 -2.0 - 3.0 mmol/L 11/20/2023 2:56 PM CDT [facility] O2 SAT EST ARTERIAL 94(L) 95 - 99 % 11/20/2023 2:56 PM CDT [facility] P/F RATIO ARTERIAL 300 11/20/2023 2:56 PM CDT [facility] OXYGEN MODE Room Air 11/20/2023 2:56 PM CDT [facility] FIO2 21.0 21.0 - 100.0 % 11/20/2023 2:56 PM CDT [facility] Blood, arterial Arterial / Unknown 2023 2:48 PM CDT 11/20/2023 2:53 PM CDT Jessica Angel MD ABG ORDERABLES [facility]# [id number] [address] [place] [address] * XR CHEST PA OR AP 1 VW (11/20/2023 12:54 PM CDT) Anatomical Region Laterality Modality Chest Computed Radiogr aphy 11/20/2023 12:5 4 PM CDT Narrative 11/20/2023 12:58 PM CDT XR CHEST PA OR AP 1 VW DATE: 11/20/2023 12:54 PM HISTORY: ??Pneumonia COMPARISON: 11/13/2023 FINDINGS: There is a shallow degree of inspiration with new infiltrate/atelectasis at the right lung base. There is an associated [id number] right pleural effusion. ??No pneumothorax. Cardiac silhouette is stable. Distended air-filled bowel is seen. There are surgical clips in the right upper quadrant and a stimulator device over the left chest. ?? DICTATION LOCATION: Location 1 - [facility] Procedure Note Maura Jones MD - 11/20/2023 XR CHEST PA OR AP 1 VW DATE: 11/20/2023 12:54 PM HISTORY: Pneumonia COMPARISON: 11/13/2023 FINDINGS: There is a shallow degree of inspiration with new infiltrate/atelectasis at the right lung base. There is an associated [id number] right pleural effusion. No pneumothorax. Cardiac silhouette is stable. Distended air-filled bowel is seen. There are surgical clips in the right upper quadrant and a stimulator device over the left chest. DICTATION LOCATION: Location 1 - [facility] Jessica Angel MD DIAGNOSTIC IMAGING O RDERABLES * (ABNORMAL) CBC WITH DIFFERENTIAL (11/20/2023 3:38 AM CDT) Pathologist [facility] WBC 9.6 4.0 - 9.8 K/uL 11/20/2023 3:53 AM CDT [facility] - [facility] RBC 2.89(L) 4.50 - 5.40 M/uL 11/20/2023 3:53 AM T [facility] - [facility] HEMOGLOBIN 8.9(L) 13.6 - 16.5 g/dL 11/20/2023 3:53 AM [facility]ATORY SERVICES - [facility] HEMATOCRIT 26.9(L) 40.0 - 48.0 % 11/20/2023 3:53 AM CDT [facility] - [facility] MCV 93.1 82.0 - 99.0 fL 11/20/2023 3:53 AM CDT [facility] - [facility] MCH 30.8 27.2 - 32.6 pg 11/20/2023 3:53 AM CDT [facility] - [facility] MCHC 33.1 31.5 - 35.5 g/dL 11/20/2023 3:53 AM CDT [facility] - [facility] RDW 12.7 11.5 - 14.5 % 11/20/2023 3:53 AM CDT [facility] - [facility] RDW-STDEV 42.5 37.1 - 48.7 fL 11/20/2023 3:53 AM CDT [facility] - [facility] PLATELETS 357(H) 140 - 350 K/uL 11/20/2023 3:53 AM CDT [facility] - [facility] MPV 8.8(L) 9.3 - 12.4 fL 11/20/2023 3:53 AM CDT [facility] - . [facility] NEUTROPHILS 63 % 11/20/2023 3:53 AM CDT [facility] LYMPHOCYTES 19 % 11/20/2023 3:53 AM CDT [facility] MONOCYTES 12 % 11/20/2023 3:53 AM CDT [facility] EOSINOPHILS 2 % 11/20/2023 3:53 AM CDT [facility] - [facility] BASOPHILS 1 % 11/20/2023 3:53 AM CDT [facility] - [facility] IMMATURE GRANULOCYTES 3 % 11/20/2023 3:53 AM CDT [facility] Comment:IG (Immature Granulo cyte) count includes Metamyelocytes, Myelocytes, and Promyelocytes NEUTROPHIL ABSOLUTE 6.08 1.90 - 7.00 K/uL 11/20/2023 3:53 AM CDT [facility] - . [facility] LYMPHOCYTE ABSOLUTE 1.79 0.70 - 4.50 K/uL 11/20/2023 3:53 AM CDT [facility] - [facility] MONOCYTE ABSOLUTE 1.13 0.10 - 1.30 K/uL 11/20/2023 3:53 AM CDT [facility] EOSINOPHIL ABSOLUTE 0.23 0.00 - 0.70 K/uL 11/20/2023 3:53 AM CDT [facility] - . [facility] BASOPHILS ABSOLUTE 0.05 0.00 - 0.20 K/uL 11/20/2023 3:53 AM CDT [facility] - . [facility] IMMATURE GRANULOCYTES ABSOLUTE 0.33(H) 0.00 - 0.03 K/uL 11/20/2023 3:53 AM CDT [facility] - . [facility] Blood Venipuncture / Unknown 11/20/2023 3:38 AM CDT 11/20/2023 3:44 AM CDT Yaima Mitchell MD HEMATOLOGY ORDERABLE S [facility] [id number] [address] [facility] [address] [place] [address] * (ABNORMAL) COMPREHENSIVE METABOLIC PANEL (11/20/2023 3:38 AM CDT) [facility] SODIUM 140 136 - 145 mmol/L 11/20/2023 4:24 AM [facility] POTASSIUM 3.9 3.5 - 5.0 mmol/L 11/20/2023 4:24 AM [facility] CHLORIDE 105 98 - 107 mmol/L 11/20/2023 4:24 AM [facility] CO2 23 22 - 29 mmol/L 11/20/2023 4:24 AM [facility] CALCIUM 8.5(L) 8.6 - 10.2 mg/dL 11/20/2023 4:24 AM [facility] - [facility] BUN 11 6 - 20 mg/dL 11/20/2023 4:24 AM [facility] - . [facility] CREATININE 0.60(L) 0.67 - 1.17 mg/dL 11/20/2023 4:24 AM [facility] - [facility] GLUCOSE 117(H) 74 - 99 mg/dL 11/20/2023 4:24 AM [facility] - [facility] TOTAL PROTEIN 7.6 6.7 - 8.6 g/dL 11/20/2023 4:24 AM [facility]. [facility] ALBUMIN 3.1(L) 3.5 - 5.2 g/dL 11/20/2023 4:24 AM [facility]. [facility] BILIRUBIN TOTAL 0.4 0.3 - 1.2 mg/dL 11/20/2023 4:24 AM [facility] - [facility] ALKALINE PHOSPHATASE 213(H) 40 - 129 U/L 11/20/2023 4:24 AM [facility] AST 24 <41 U/L 11/20/2023 4:24 AM [facility]. [facility] ALT 28 <42 U/L 11/20/2023 4:24 AM [facility] GFR >60 >=60 mL/min/1.7 3 sq meter 11/20/2023 4:24 AM [facility] Comment:eGFR calculated with 2020 CKD-EPI equation. Vegetarian diet, extremely high or low muscle mass, and may affect results. Cystatin C with Glomerular Filtration Rate is a suitable alternative for these patients. ANION GAP 12 8 - 16 mmol/L 11/20/2023 4:24 AM CDT [facility] Blood Venipuncture / Unknown 11/20/2023 3:38 AM CDT 11/20/2023 3:44 AM CDT [facility] - 11/20/2023 4:24 AM CDT Samples containing indocyanine green cause interferences on Total and/or Direct Bilirubin and must not be measured. Yaima Mitchell MD CHEMISTRY ORDERABLES [facility]# [id number] [address] [facility] [place] [address] * (ABNORMAL) CBC WITH DIFFERENTIAL (11/19/2023 6:10 AM CDT) WBC 10.9(H) 4.0 - 9.8 K/uL 11/19/2023 6:53 AM CDT [facility] RBC 2.73(L) 4.50 - 5.40 M/uL 11/19/2023 6:53 AM T [facility] HEMOGLOBIN 8.6(L) 13.6 - 16.5 g/dL 11/19/2023 6:53 AM CDT [facility] HEMATOCRIT 25.7(L) 40.0 - 48.0 % 11/19/2023 6:53 AM CDT [facility] MCV 94.1 82.0 - 99.0 fL 11/19/2023 6:53 AM CDT [facility] MCH 31.5 27.2 - 32.6 pg 11/19/2023 6:53 AM CDT [facility] MCHC 33.5 31.5 - 35.5 g/dL 11/19/2023 6:53 AM CDT [facility] RDW 12.9 11.5 - 14.5 % 11/19/2023 6:53 AM CDT [facility] RDW-STDEV 44.0 37.1 - 48.7 fL 11/19/2023 6:53 AM CDT [facility] PLATELETS 304 140 - 350 K/uL 11/19/2023 6:53 AM CDT [facility] MPV 9.2(L) 9.3 - 12.4 fL 11/19/2023 6:53 AM CDT [facility] NEUTROPHILS 67 % 11/19/2023 6:53 AM CDT [facility] LYMPHOCYTES 16 % 11/19/2023 6:53 AM CDT [facility] MONOCYTES 12 % 11/19/2023 6:53 AM CDT [facility] EOSINOPHILS 3 % 11/19/2023 6:53 AM CDT [facility] BASOPHILS 1 % 11/19/2023 6:53 AM CDT [facility] IMMATURE GRANULOCYTES 2 % 11/19/2023 6:53 AM CDT [facility] Comment:IG (Immature Granulo cyte) count includes Metamyelocytes, Myelocytes, and Promyelocytes NEUTROPHIL ABSOLUTE 7.33(H) 1.90 - 7.00 K/uL 11/19/2023 6:53 AM [employer] [facility] [place] [facility] LYMPHOCYTE ABSOLUTE 1.71 0.70 - 4.50 K/uL 11/19/2023 6:53 AM CDT [facility] MONOCYTE ABSOLUTE 1.26 0.10 - 1.30 K/uL 11/19/2023 6:53 AM CDT [facility] EOSINOPHIL ABSOLUTE 0.35 0.00 - 0.70 K/uL 11/19/2023 6:53 AM CDT [facility] BASOPHILS ABSOLUTE 0.05 0.00 - 0.20 K/uL 11/19/2023 6:53 AM CDT [facility] IMMATURE GRANULOCYTES ABSOLUTE 0.21(H) 0.00 - 0.03 K/uL 11/19/2023 6:53 AM T [facility] Blood Venipuncture / Unknown 11/19/2023 6:10 AM CDT 11/19/2023 6:34 AM CDT Yaima Mitchell MD HEMATOLOGY ORDERABLE S [facility] CLIA# [id number] [address] [facility] [place], [place] [address] * (ABNORMAL) COMPREHENSIVE METABOLIC PANEL (11/19/2023 6:10 AM CDT) SODIUM 139 136 - 145 mmol/L 11/19/2023 7:18 AM T [facility] POTASSIUM 3.9 3.5 - 5.0 mmol/L 11/19/2023 7:18 AM T [facility] CHLORIDE 108(H) 98 - 107 mmol/L 11/19/2023 7:18 AM T [facility] CO2 22 22 - 29 mmol/L 11/19/2023 7:18 AM T [facility] CALCIUM 8.4(L) 8.6 - 10.2 mg/dL 11/19/2023 7:18 AM T [facility] BUN 8 6 - 20 mg/dL 11/19/2023 7:18 AM T [facility] CREATININE 0.61(L) 0.67 - 1.17 mg/dL 11/19/2023 7:18 AM T [facility] GLUCOSE 104(H) 74 - 99 mg/dL 11/19/2023 7:18 AM T [facility] TOTAL PROTEIN 5.9(L) 6.7 - 8.6 g/dL 11/19/2023 7:18 AM T [facility] ALBUMIN 3.1(L) 3.5 - 5.2 g/dL 11/19/2023 7:18 AM T [facility] BILIRUBIN TOTAL 0.4 0.3 - 1.2 mg/dL 11/19/2023 7:18 AM T [facility] ALKALINE PHOSPHATASE 161(H) 40 - 129 U/L 11/19/2023 7:18 AM [facility] AST 27 <41 U/L 11/19/2023 7:18 AM [facility] ALT 31 <42 U/L 11/19/2023 7:18 AM [facility] GFR >60 >=60 mL/min/1.7 3 sq meter 11/19/2023 7:18 AM T [facility] Comment:eGFR calculated with 2020 CKD-EPI equation. Vegetarian diet, extremely high or low muscle mass, and may affect results. Cystatin C with Glomerular Filtration Rate is a suitable alternative for these patients. ANION GAP 9 8 - 16 mmol/L 11/19/2023 7:18 AM [facility] Blood Venipuncture / Unknown 11/19/2023 6:10 AM CDT 11/19/2023 6:34 AM CDT Narrative [facility] - 11/19/2023 7:18 AM CDT Samples containing indocyanine green cause interferences on Total and/or Direct Bilirubin and must not be measured. Yaima Mitchell MD CHEMISTRY ORDERABLES [facility]# [id number] [address] [place] [address] [place] [address] * (ABNORMAL) URINALYSIS WITH REFLEX MICROSCOPIC (11/18/2023 1:39 PM CDT) COLOR UA Yellow Pale to Dark Yellow 11/18/2023 2:39 PM CDT [facility] CLARITY UA Clear Clear 11/18/2023 2:39 PM CDT [facility] SPECIFIC GRAVITY UA 1.025 1.003 - 1.035 11/18/2023 2:39 PM T [facility] PH UA 7.0 5.0 - 8.0 11/18/2023 2:39 PM CDT [facility] LEUKOCYTE ESTERASE UA Negative Negative 11/18/2023 2:39 PM CDT [facility] NITRITE UA Negative Negative 11/18/2023 2:39 PM CDT [facility] PROTEIN UA 1+(A) Negative 11/18/2023 2:39 PM CDT [facility] GLUCOSE UA Negative Negative 11/18/2023 2:39 PM CDT [facility] KETONES UA Negative Negative 11/18/2023 2:39 PM CDT [facility] UROBILINOGEN UA 0.2 <2.0 mg/dL 2:39 PM CDT [facility] BILIRUBIN UA Negative Negative 11/18/2023 2:39 PM CDT [facility] BLOOD UA 1+(A) Negative 11/18/2023 2:39 PM CDT [facility] WBC UA 3-5(A) 0 - 2 /hpf 11/18/2023 2:39 PM CDT [facility] RBC UA 0-2 0 - 2 /hpf 11/18/2023 2:39 PM CDT [facility] Comment:<2mL of urine sample received. Microscopic performed on uncentrifuged urine. Urine sediment results may be falsely decreased. BACTERIA UA 1+(A) Negative /hpf 11/18/2023 2:39 PM CDT [facility] Urine (Urine, indwelling (Chavez) catheter) Collection / Unknown 11/18/2023 1:39 PM CDT 11/18/2023 2:04 PM CDT Yaima Mitchell MD URINE ORDERABLES [facility]# [id number] [address] [facility] [place] [address] * (ABNORMAL) CBC WITH DIFFERENTIAL (11/18/2023 4:35 AM CDT) [facility] WBC 11.1(H) 4.0 - 9.8 K/uL 11/18/2023 4:55 AM CDT [facility] RBC 2.99(L) 4.50 - 5.40 M/uL 11/18/2023 4:55 AM CDT [facility] HEMOGLOBIN 9.3(L) 13.6 - 16.5 g/dL 11/18/2023 4:55 AM CDT [facility] HEMATOCRIT 28.4(L) 40.0 - 48.0 % 11/18/2023 4:55 AM CDT [facility] MCV 95.0 82.0 - 99.0 fL 11/18/2023 4:55 AM CDT [facility] MCH 31.1 27.2 - 32.6 pg 11/18/2023 4:55 AM CDT [facility] MCHC 32.7 31.5 - 35.5 g/dL 11/18/2023 4:55 AM CDT [facility] RDW 13.0 11.5 - 14.5 % 11/18/2023 4:55 AM CDT [facility] RDW-STDEV 44.8 37.1 - 48.7 fL 11/18/2023 4:55 AM CDT [facility] PLATELETS 338 140 - 350 K/uL 11/18/2023 4:55 AM CDT [facility] MPV 8.6(L) 9.3 - 12.4 fL 11/18/2023 4:55 AM CDT [facility] - . [facility] NEUTROPHILS 74 % 11/18/2023 4:55 AM CDT [facility] LYMPHOCYTES 10 % 11/18/2023 4:55 AM CDT [facility] MONOCYTES 14 % 11/18/2023 4:55 AM CDT [facility] EOSINOPHILS 1 % 11/18/2023 4:55 AM CDT [facility] BASOPHILS 0 % 11/18/2023 4:55 AM CDT [facility] IMMATURE GRANULOCYTES 1 % 11/18/2023 4:55 AM CDT [facility] Comment:IG (Immature Granulo cyte) count includes Metamyelocytes, Myelocytes, and Promyelocytes NEUTROPHIL ABSOLUTE 8.19(H) 1.90 - 7.00 K/uL 11/18/2023 4:55 AM CDT [facility] - . [facility] LYMPHOCYTE ABSOLUTE 1.11 0.70 - 4.50 K/uL 11/18/2023 4:55 AM CDT [facility] - . [facility] MONOCYTE ABSOLUTE 1.58(H) 0.10 - 1.30 K/uL 11/18/2023 4:55 AM CDT [facility] - . [facility] EOSINOPHIL ABSOLUTE 0.10 0.00 - 0.70 K/uL 11/18/2023 4:55 AM CDT [facility] - . [facility] BASOPHILS ABSOLUTE 0.02 0.00 - 0.20 K/uL 11/18/2023 4:55 AM CDT [facility] - . [facility] IMMATURE GRANULOCYTES ABSOLUTE 0.09(H) 0.00 - 0.03 K/uL 11/18/2023 4:55 AM CDT [facility] Blood Venipuncture / Unknown 11/18/2023 4:35 AM CDT 11/18/2023 4:48 AM CDT Yaima Mitchell MD HEMATOLOGY ORDERABLE S [facility]# [id number] [address] [place] [address] * (ABNORMAL) COMPREHENSIVE METABOLIC PANEL (11/18/2023 4:35 AM CDT) Pathologist [facility] SODIUM 139 136 - 145 mmol/L 11/18/2023 5:51 AM CDT [facility] SERVICES [facility] POTASSIUM 3.9 3.5 - 5.0 mmol/L 11/18/2023 5:51 AM CDT [facility] - [facility] CHLORIDE 108(H) 98 - 107 mmol/L 11/18/2023 5:51 AM CDT [facility] CO2 21(L) 22 - 29 mmol/L 11/18/2023 5:51 AM [facility] CALCIUM 8.2(L) 8.6 - 10.2 mg/dL 11/18/2023 5:51 AM [facility] BUN 6 6 - 20 mg/dL 11/18/2023 5:51 AM [facility] CREATININE 0.55(L) 0.67 - 1.17 mg/dL 11/18/2023 5:51 AM [facility] GLUCOSE 164(H) 74 - 99 mg/dL 11/18/2023 5:51 AM [facility] TOTAL PROTEIN 5.8(L) 6.7 - 8.6 g/dL 11/18/2023 5:51 AM [facility] ALBUMIN 3.3(L) 3.5 - 5.2 g/dL 11/18/2023 5:51 AM [facility] BILIRUBIN TOTAL 0.3 0.3 - 1.2 mg/dL 11/18/2023 5:51 AM [facility] ALKALINE PHOSPHATASE 110 40 - 129 U/L 11/18/2023 5:51 AM [facility] AST 39 <41 U/L 11/18/2023 5:51 AM [facility] ALT 35 <42 U/L 11/18/2023 5:51 AM [facility] GFR >60 >=60 mL/min/1.7 3 sq meter 11/18/2023 5:51 AM [facility] Comment:eGFR calculated with 2020 CKD-EPI equation. Vegetarian diet, extremely high or low muscle mass, and may affect results. Cystatin C with Glomerular Filtration Rate is a suitable alternative for these patients. ANION GAP 10 8 - 16 mmol/L 11/18/2023 5:51 AM [facility] Blood Venipuncture / Unknown 11/18/2023 4:35 AM CDT 11/18/2023 4:48 AM CDT Narrative [facility] - 11/18/2023 5:51 AM CDT Samples containing indocyanine green cause interferences on Total and/or Direct Bilirubin and must not be measured. Yaima Mitchell MD CHEMISTRY ORDERABLES Performing Organization Address [facility]/ZIP Co de Phone Number [facility] [id number] [address] [place] [address] [place] [address] * (ABNORMAL) C-REACTIVE PROTEIN (11/18/2023 4:35 AM CDT) CRP 146.0(H) <5.0 mg/L 11/18/2023 5:51 AM CDT [facility] Blood Venipuncture / Unknown 11/18/2023 4:35 AM CDT 11/18/2023 4:48 AM CDT Jim Nguyen MD CHEMISTRY ORDERABLES Performing Organization Address City/[facility] Co de Phone Number [facility] [id number] [address] [place] [address] [place] [address] * ECHOCARDIOGRAM W/ CONTRAST AGENT (11/17/2023 6:00 AM CDT) EJECTION FRACTION 701 INTERFACE SYSTEM 11/17/2023 5:34 AM CDT Narrative INTERFACE SYSTEM - 11/17/2023 8:38 AM CDT [facility] [address] [place] [address] [email or web address]/[email or web address] Transthoracic Echocardiogram Patient: ?Beebe, Curt D MRN: ?[id number] Study ID: ? ECHO COMPLETE - Gender: ? M : ?1985 Age: ?38 Race: ? CAU Height ?170.2cm Study Date: ? 11/17/2023 Weight: ? 76.1kg Access. #: ?[id number] Account #: ?[id number] BP: *Referring Physician:* Evelio Miller *Ordering Physician:* ??Evelio Miller school speech therapist: Nurse: Indications: Bacteremia / Endocarditis. STUDY CONCLUSIONS: [...] ?Prepared and Electronically Authenticated Rob Almendarez MD [id number] Procedure Note Rob Almendarez MD - 11/17/2023 [place] [address] [email or web address] rehabilitation institute of [email or web address]/[email or web address] Transthoracic Echocardiogram Patient: Curt Beebe Study ID: ECHO COMPLETE - Gender: M : 1985 Age: 38 Race: CAU Height 170.2cm Study Date: 11/17/2023 Weight: 76.1kg Access. #: [id number] BP: *Referring Physician:* Evelio Miller *Ordering Physician:* Evelio Miller school speech therapist: Nurse: Indications: Bacteremia / Endocarditis. STUDY CONCLUSIONS: [...] TDI (N) 12.6 cm/sec >=7.0 E/e', med fernie, TDI 7 --------- E', avg, TDI 15.5 [...] AM. Prepared andElectronically Authenticated Rob Almendarez MD [id number] Evelio Miller MD ORDERABLES INTERFACE SYSTEM Refer to clinic/hospital department * BLOOD CULTURE (11/17/2023 5:03 AM CDT) BLOOD CULTURE No growth 11/22/2023 6:44 AM T [facility] Blood (Peripheral) Venipuncture / Unknown 11/17/2023 5:03 AM CDT 11/17/2023 5:11 AM CDT Evelio Miller MD 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 - [facility] AL ORDERABLES [facility] SERVICES [facility] CLIA# [id number] [address] [facility] [place] [address] * (ABNORMAL) COMPREHENSIVE METABOLIC PANEL (11/17/2023 5:03 AM CDT) SODIUM 141 136 - 145 mmol/L 11/17/2023 6:04 AM [facility] LABORATORY SERVICES [facility] POTASSIUM 3.8 3.5 - 5.0 mmol/L 11/17/2023 6:04 AM [facility] LABORATORY SERVICES [facility] CHLORIDE 111(H) 98 - 107 mmol/L 11/17/2023 6:04 AM [facility] LABORATORY SERVICES - . [facility] CO2 22 22 - 29 mmol/L 11/17/2023 6:04 AM [facility] LABORATORY SERVICES [facility]. [facility] CALCIUM 7.9(L) 8.6 - 10.2 mg/dL 11/17/2023 6:04 AM [facility] LABORATORY SERVICES [facility]. [facility] BUN 7 6 - 20 mg/dL 11/17/2023 6:04 AM [facility]ORATORY SERVICES - . [facility] CREATININE 0.62(L) 0.67 - 1.17 mg/dL 11/17/2023 6:04 AM [facility]ATORY SERVICES - . [facility] GLUCOSE 167(H) 74 - 99 mg/dL 11/17/2023 6:04 AM [facility]ORATORY SERVICES - . [facility] TOTAL PROTEIN 5.5(L) 6.7 - 8.6 g/dL 11/17/2023 6:04 AM [facility] LABORATORY SERVICES - [facility] ALBUMIN 3.2(L) 3.5 - 5.2 g/dL 11/17/2023 6:04 AM [facility] BILIRUBIN TOTAL 0.3 0.3 - 1.2 mg/dL 11/17/2023 6:04 AM [facility] ALKALINE PHOSPHATASE 266(H) 40 - 129 U/L 11/17/2023 6:04 AM [facility] AST 69(H) <41 U/L 11/17/2023 6:04 AM [facility] Comment:Hemolysis present. R esult may be falsely elevated. ALT 41 <42 U/L 11/17/2023 6:04 AM [facility] GFR >60 >=60 mL/min/1.7 3 sq meter 11/17/2023 6:04 AM [facility] Comment:eGFR calculated with 2020 CKD-EPI equation. Vegetarian diet, extremely high or low muscle mass, and may affect results. Cystatin C with Glomerular Filtration Rate is a suitable alternative for these patients. ANION GAP 8 8 - 16 mmol/L 11/17/2023 6:04 AM [facility] Blood Venipuncture / Unknown 11/17/2023 5:03 AM CDT 11/17/2023 5:11 AM T [facility] - 11/17/2023 6:04 AM CDT Samples containing indocyanine green cause interferences on Total and/or Direct Bilirubin and must not be measured. Yaima Mitchell MD CHEMISTRY ORDERABLES [facility] CLIA# [id number] [address] [facility] [address] [place] [address] * (ABNORMAL) C-REACTIVE PROTEIN (11/17/2023 5:03 AM CDT) CRP 184.0(H) <5.0 mg/L 11/17/2023 6:04 AM [facility] Blood Venipuncture / Unknown 11/17/2023 5:03 AM CDT 11/17/2023 5:11 AM CDT Iva Joseph PA-C CHEMISTRY ORDERABL ES [facility]# [id number] [address] [place] [address] * (ABNORMAL) PHOSPHORUS (11/17/2023 5:03 AM CDT) PHOSPHORUS 2.3(L) 2.5 - 4.5 mg/dL 11/17/2023 6:04 AM CDT [facility] Blood Venipuncture / Unknown 11/17/2023 5:03 AM CDT 11/17/2023 5:11 AM CDT Jim Nguyen MD CHEMISTRY ORDERABLES Performing Organization Address City/[facility]/ZIP Co de Phone Number [facility]# [id number] [address] [place] [address] * MAGNESIUM LEVEL (11/17/2023 5:03 AM CDT) MAGNESIUM 1.8 1.6 - 2.6 mg/dL 11/17/2023 6:04 AM CDT [facility] Blood Venipuncture / Unknown 11/17/2023 5:03 AM CDT 11/17/2023 5:11 AM CDT Jim Nguyen MD CHEMISTRY ORDERABLES [facility]# [id number] [address] [place] [address] * BLOOD CULTURE (11/17/2023 4:55 AM CDT) BLOOD CULTURE No growth 11/22/2023 6:44 AM CDT [facility] Blood (Peripheral) Venipuncture / Unknown 11/17/2023 4:55 AM CDT 11/17/2023 4:59 AM CDT Evelio Miller MD 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 - [facility] AL ORDERABLES [facility] - [facility] CLIA# [id number] [address] [place] [address] * (ABNORMAL) CBC WITH DIFFERENTIAL (11/17/2023 4:55 AM CDT) WBC 8.3 4.0 - 9.8 K/uL 11/17/2023 5:14 AM CDT [facility] RBC 2.73(L) 4.50 - 5.40 M/uL 11/17/2023 5:14 AM CDT [facility] HEMOGLOBIN 8.7(L) 13.6 - 16.5 g/dL 11/17/2023 5:14 AM CDT [facility] HEMATOCRIT 25.3(L) 40.0 - 48.0 % 11/17/2023 5:14 AM CDT [facility] MCV 92.7 82.0 - 99.0 fL 11/17/2023 5:14 AM CDT [facility] MCH 31.9 27.2 - 32.6 pg 11/17/2023 5:14 AM CDT [facility] MCHC 34.4 31.5 - 35.5 g/dL 11/17/2023 5:14 AM CDT [facility] RDW 13.0 11.5 - 14.5 % 11/17/2023 5:14 AM CDT [facility] RDW-STDEV 43.6 37.1 - 48.7 fL 11/17/2023 5:14 AM CDT [facility] PLATELETS 243 140 - 350 K/uL 11/17/2023 5:14 AM CDT [facility] MPV 9.0(L) 9.3 - 12.4 fL 11/17/2023 5:14 AM CDT [facility]ORATORY SERVICES - [facility] NEUTROPHILS 78 % 11/17/2023 5:14 AM CDT [facility] SERVICES - . [facility] LYMPHOCYTES 10 % 11/17/2023 5:14 AM CDT [facility] - . [facility] MONOCYTES 12 % 11/17/2023 5:14 AM CDT [facility] LAB[facility]ATORY [facility] - . [facility] EOSINOPHILS 0 % 11/17/2023 5:14 AM CDT [facility] SERVICES - . [facility] BASOPHILS 0 % 11/17/2023 5:14 AM CDT [facility] SERVICES - . [facility] IMMATURE GRANULOCYTES 1 % 11/17/2023 5:14 AM CDT [facility] - [facility] Comment:IG (Immature Granulo cyte) count includes Metamyelocytes, Myelocytes, and Promyelocytes NEUTROPHIL ABSOLUTE 6.44 1.90 - 7.00 K/uL 11/17/2023 5:14 AM CDT [facility] SERVICES - . [facility] LYMPHOCYTE ABSOLUTE 0.83 0.70 - 4.50 K/uL 11/17/2023 5:14 AM CDT [facility] SERVICES - . [facility] MONOCYTE ABSOLUTE 0.95 0.10 - 1.30 K/uL 11/17/2023 5:14 AM CDT [facility] SERVICES - . [facility] EOSINOPHIL ABSOLUTE 0.01 0.00 - 0.70 K/uL 11/17/2023 5:14 AM T [facility] - . [facility] BASOPHILS ABSOLUTE 0.01 0.00 - 0.20 K/uL 11/17/2023 5:14 AM T [facility] SERVICES - . [facility] IMMATURE GRANULOCYTES ABSOLUTE 0.04(H) 0.00 - 0.03 K/uL 11/17/2023 5:14 AM T [facility] Blood Venipuncture / Unknown 11/17/2023 4:55 AM CDT 11/17/2023 4:59 AM CDT Yaima Mitchell MD HEMATOLOGY ORDERABLE S [facility] LABORATORY SERVICES [facility]# [id number] [address] [place] [address] * CT SINUS FACIAL BONES W CONTRAST [...] Technique. ?? DICTATION LOCATION: Location 1 - [facility] Narrative 11/17/2023 7:40 AM CDT EXAM: CT SINUS [...] Reconstruction Technique. DICTATION LOCATION: Location 1 - [facility] Evelio Miller MD CT ORDERABLES * (ABNORMAL) CBC WITH DIFFERENTIAL (11/16/2023 11:59 PM CDT) WBC 7.2 4.0 - 9.8 K/uL 11/17/2023 12:25 AM T [facility] RBC 2.60(L) 4.50 - 5.40 M/uL 11/17/2023 12:25 AM [facility] LABORATORY [facility] HEMOGLOBIN 8.4(L) 13.6 - 16.5 g/dL 11/17/2023 12:25 AM [facility] LABORATORY [facility] Comment:Significant change f rom prior result, correlate clinically and redraw if necessary. HEMATOCRIT 24.2(L) 40.0 - 48.0 % 11/17/2023 12:25 AM T [facility] MCV 93.1 82.0 - 99.0 fL 11/17/2023 12:25 AM [facility] LABORATORY [facility] MCH 32.3 27.2 - 32.6 pg 11/17/2023 12:25 AM [facility] LABORATORY [facility] MCHC 34.7 31.5 - 35.5 g/dL 11/17/2023 12:25 AM [facility] LABORATORY [facility] RDW 13.0 11.5 - 14.5 % 11/17/2023 12:25 AM [employer] [place] [facility] - [facility] RDW-STDEV 44.3 37.1 - 48.7 fL 11/17/2023 12:25 AM [employer] LABORATORY SERVICES - [facility] PLATELETS 205 140 - 350 K/uL 11/17/2023 12:25 AM [employer] LABORATORY [facility] - [facility] MPV 8.9(L) 9.3 - 12.4 fL 11/17/2023 12:25 AM [employer] [facility] - [facility] NEUTROPHILS 85 % 11/17/2023 12:25 AM [employer] LABORATORY SERVICES - . [facility] LYMPHOCYTES 6 % 11/17/2023 12:25 AM [employer] [facility] - [facility] MONOCYTES 9 % 11/17/2023 12:25 AM [employer] [facility] - [facility] EOSINOPHILS 0 % 11/17/2023 12:25 AM [employer] [facility]OR[facility]ORY [facility] - [facility] BASOPHILS 0 % 11/17/2023 12:25 AM [employer] [facility] - [facility] IMMATURE GRANULOCYTES 1 % 11/17/2023 12:25 AM [employer] [facility] - [facility] Comment:IG (Immature Granulo cyte) count includes Metamyelocytes, Myelocytes, and Promyelocytes NEUTROPHIL ABSOLUTE 6.07 1.90 - 7.00 K/uL 11/17/2023 12:25 AM [employer] LABORATORY SERVICES [facility] LYMPHOCYTE ABSOLUTE 0.40(L) 0.70 - 4.50 K/uL 11/17/2023 12:25 AM [employer] LABORATORY SERVICES - . [facility] MONOCYTE ABSOLUTE 0.62 0.10 - 1.30 K/uL 11/17/2023 12:25 AM [employer] LABORATORY SERVICES - . [facility] EOSINOPHIL ABSOLUTE 0.01 0.00 - 0.70 K/uL 11/17/2023 12:25 AM [employer] [facility] - . [facility] BASOPHILS ABSOLUTE 0.01 0.00 - 0.20 K/uL 11/17/2023 12:25 AM [employer] [facility] - [facility] IMMATURE GRANULOCYTES ABSOLUTE 0.04(H) 0.00 - 0.03 K/uL 11/17/2023 12:25 AM CDT [facility] Blood Venipuncture / Unknown 11/16/2023 11:59 PM CDT 11/17/2023 12:02 AM CDT Renny Ray PA-C [facility] Performing Organization Address [facility]/State/ZIP Co de Phone Number [facility] CLIA# [id number] [address] [place] [address] * PATHOLOGY (11/16/2023 6:26 PM CDT) CASE REPORT Surgical Pathology Report ? Case: [id number] ? Authorizing Provider: ??Henok Artis MD Collected: ? 11/16/2023 06:26 PM ? Ordering Location: ? [facility] ?Received: ?11/18/2023 06:56 AM ? Operating Room ? Pathologist: ? Skylar Nevarez MD ? Specimen: ?Gallbladder, gallbladder ? 10:33 AM [facility] FINAL DIAGNOSIS Gallbladder, laparoscopic cholecystectomy: -Acute gangrenous cholecystitis with abscess formation. -No evidence of malignancy. 10:33 AM [facility] S DESCRIPTION Received in a single container labeled Curt Benoitb and gallbladder, is a 9.8 x 6 [...] in the wall, consistent with possible necrosis. Finance Teacher sections of gallbladder wall are submitted in cassettes A1 through A3, with A1 containing the en face cystic duct margin. [facility] 10:33 AM [facility] MICROSCOPIC DESCRIPTION The slides are labeled [id number] and Curt Beebe. Sections of gallbladder reveal thickened wall with diffuse acute inflammation, surface ulceration, gangrenous necrosis and abscess formation. A piece of adhesed the liver with acute and chronic inflammation is present. There are submucosal spindled to epithelioid cells, suggestive of reactive fibroblasts with surrounding vascular proliferation. The cells are negative for pancytokeratin and CD34, confirming reactive changes. 10:33 AM [facility] OneID [facility] OPERATIVE PROCEDURE 1: CHOLECYSTECTOMY LAPAROSCOPIC 2: CHOLECYSTOMY 10:33 AM [facility] One[facility] COMMENT Special stain, immunohistochemical, and/or in situ hybridization results are interpreted with controls that demonstrate appropriate staining reactions. Note on use of immunohistochemistry reagents and in situ hybridization probes: These tests were developed and their performance characteristics determined by [facility], Department of Laboratory Medicine. It has not [...] part or completely in the following laboratories: [facility], CLIA #[id number] [address] [place] [address] [facility], CLIA #[id number] [address] [place] [address] [facility], CLIA #[id number] [place] [address] This report was created with the [employer] voice-activated dictation system. Inherent to this system is the possibility of syntax, grammar, punctuation and other errors that could impact the interpretation of the report. If there are interpretative questions about aspects of this report, please contact the performing pathologist. 10:33 AM CDT [facility] Tissue ENTIRE GALLBLADDER / Unknown Collection / Unknown 11/16/2023 6:26 PM CDT 11/18/2023 6:56 AM CDT Henok Artis MD PATHOLOGY/CYTOL OGY ORDERABLES [facility] CLIA# [id number] [address] [facility] [place] [address] * (ABNORMAL) CBC WITH DIFFERENTIAL (11/16/2023 3:53 AM CDT) WBC 9.3 4.0 - 9.8 K/uL 11/16/2023 4:22 AM CDT [facility] RBC 3.59(L) 4.50 - 5.40 M/uL 11/16/2023 4:22 AM CDT [facility] HEMOGLOBIN 11.4(L) 13.6 - 16.5 g/dL 11/16/2023 4:22 AM [facility] HEMATOCRIT 33.4(L) 40.0 - 48.0 % 11/16/2023 4:22 AM [facility] MCV 93.0 82.0 - 99.0 fL 11/16/2023 4:22 AM [facility] MCH 31.8 27.2 - 32.6 pg 11/16/2023 4:22 AM [facility] MCHC 34.1 31.5 - 35.5 g/dL 11/16/2023 4:22 AM [facility] RDW 12.8 11.5 - 14.5 % 11/16/2023 4:22 AM [facility] RDW-STDEV 44.1 37.1 - 48.7 fL 11/16/2023 4:22 AM [facility] PLATELETS 249 140 - 350 K/uL 11/16/2023 4:22 AM [facility] MPV 9.1(L) 9.3 - 12.4 fL 11/16/2023 4:22 AM [facility] NEUTROPHILS 77 % 11/16/2023 4:22 AM [facility] LYMPHOCYTES 8 % 11/16/2023 4:22 AM [facility] MONOCYTES 12 % 11/16/2023 4:22 AM [facility] EOSINOPHILS 1 % 11/16/2023 4:22 AM [facility] BASOPHILS 0 % 11/16/2023 4:22 AM [facility] IMMATURE GRANULOCYTES 1 % 11/16/2023 4:22 AM [facility] Comment:IG (Immature Granulo cyte) count includes Metamyelocytes, Myelocytes, and Promyelocytes NEUTROPHIL ABSOLUTE 7.18(H) 1.90 - 7.00 K/uL 11/16/2023 4:22 AM CDT [facility] LYMPHOCYTE ABSOLUTE 0.77 0.70 - 4.50 K/uL 11/16/2023 4:22 AM CDT [facility] MONOCYTE ABSOLUTE 1.15 0.10 - 1.30 K/uL 11/16/2023 4:22 AM CDT [facility] EOSINOPHIL ABSOLUTE 0.13 0.00 - 0.70 K/uL 11/16/2023 4:22 AM CDT [facility] BASOPHILS ABSOLUTE 0.02 0.00 - 0.20 K/uL 11/16/2023 4:22 AM CDT [facility] IMMATURE GRANULOCYTES ABSOLUTE 0.05(H) 0.00 - 0.03 K/uL 11/16/2023 4:22 AM T [facility] Blood Venipuncture / Unknown 11/16/2023 3:53 AM CDT 11/16/2023 3:58 AM CDT Yaima Mitchell MD HEMATOLOGY ORDERABLE S [facility]# [id number] [facility] [place] [address] * (ABNORMAL) COMPREHENSIVE METABOLIC PANEL (11/16/2023 3:53 AM CDT) SODIUM 142 136 - 145 mmol/L 11/16/2023 4:48 AM T [facility] POTASSIUM 3.5 3.5 - 5.0 mmol/L 11/16/2023 4:48 AM T [facility] CHLORIDE 110(H) 98 - 107 mmol/L 11/16/2023 4:48 AM CDT [facility] CO2 21(L) 22 - 29 mmol/L 11/16/2023 4:48 AM CDT [facility] CALCIUM 8.8 8.6 - 10.2 mg/dL 11/16/2023 4:48 AM CDT [facility] BUN 11 6 - 20 mg/dL 11/16/2023 4:48 AM [facility] CREATININE 0.65(L) 0.67 - 1.17 mg/dL 11/16/2023 4:48 AM [facility] GLUCOSE 122(H) 74 - 99 mg/dL 11/16/2023 4:48 AM [facility] TOTAL PROTEIN 6.7 6.7 - 8.6 g/dL 11/16/2023 4:48 AM [facility] ALBUMIN 3.3(L) 3.5 - 5.2 g/dL 11/16/2023 4:48 AM [facility] BILIRUBIN TOTAL 0.5 0.3 - 1.2 mg/dL 11/16/2023 4:48 AM [facility] ALKALINE PHOSPHATASE 182(H) 40 - 129 U/L 11/16/2023 4:48 AM [facility] AST 14 <41 U/L 11/16/2023 4:48 AM [facility] ALT 14 <42 U/L 11/16/2023 4:48 AM [facility] GFR >60 >=60 mL/min/1.7 3 sq meter 11/16/2023 4:48 AM [facility] Comment:eGFR calculated with 2020 CKD-EPI equation. Vegetarian diet, extremely high or low muscle mass, and may affect results. Cystatin C with Glomerular Filtration Rate is a suitable alternative for these patients. ANION GAP 11 8 - 16 mmol/L 11/16/2023 4:48 AM [facility] One[facility] Blood Venipuncture / Unknown 11/16/2023 3:53 AM CDT 11/16/2023 3:58 AM T [facility] - 11/16/2023 4:48 AM [facility] Samples containing indocyanine green cause interferences on Total and/or Direct Bilirubin and must not be measured. Yaima Mitchell MD CHEMISTRY ORDERABLES [facility]# [id number] [address] [place] [address] * NM HEPATOBILIARY SCAN (11/15/2023 10:30 AM CDT) Anatomical Region Laterality Modality Abdomen Nuclear Medicine 11/15/2023 11:3 4 AM CDT Impressions 11/15/2023 11:41 AM CDT IMPRESSION: ??Abnormal hepatobiliary imaging study. Nonvisualization of the gallbladder at 60 minutes supportive of the diagnosis of acute acalculous cholecystitis. Dictated by Dr. Girish Sanchez MD DICTATION LOCATION: Narrative 11/15/2023 11:41 AM CDT HEPATOBILIARY IMAGING [...] 1 Juany ADAMS [place] ORDERABLES * (ABNORMAL) CBC WITH DIFFERENTIAL (11/15/2023 3:17 AM CDT) WBC 9.9(H) 4.0 - 9.8 K/uL 11/15/2023 4:16 AM CDT [facility] RBC 3.66(L) 4.50 - 5.40 M/uL 11/15/2023 4:16 AM CDT [facility] HEMOGLOBIN 11.8(L) 13.6 - 16.5 g/dL 11/15/2023 4:16 AM CDT [facility] - . [facility] HEMATOCRIT 34.6(L) 40.0 - 48.0 % 11/15/2023 4:16 AM CDT [facility] - . [facility] MCV 94.5 82.0 - 99.0 fL 11/15/2023 4:16 AM CDT [facility] . [facility] MCH 32.2 27.2 - 32.6 pg 11/15/2023 4:16 AM CDT [facility] MCHC 34.1 31.5 - 35.5 g/dL 11/15/2023 4:16 AM CDT [facility] RDW 13.1 11.5 - 14.5 % 11/15/2023 4:16 AM CDT [facility] RDW-STDEV 45.3 37.1 - 48.7 fL 11/15/2023 4:16 AM CDT [facility] - . [facility] PLATELETS 228 140 - 350 K/uL 11/15/2023 4:16 AM CDT [facility] MPV 9.6 9.3 - 12.4 fL 11/15/2023 4:16 AM CDT [facility] NEUTROPHILS 76 % 11/15/2023 4:16 AM CDT [facility] LYMPHOCYTES 10 % 11/15/2023 4:16 AM CDT [facility] MONOCYTES 13 % 11/15/2023 4:16 AM CDT [facility] EOSINOPHILS 1 % 11/15/2023 4:16 AM CDT [facility] BASOPHILS 0 % 11/15/2023 4:16 AM CDT [facility] IMMATURE GRANULOCYTES 0 % 11/15/2023 4:16 AM CDT [facility] NEUTROPHIL ABSOLUTE 7.50(H) 1.90 - 7.00 K/uL 11/15/2023 4:16 AM CDT [facility] LYMPHOCYTE ABSOLUTE 1.00 0.70 - 4.50 K/uL 11/15/2023 4:16 AM CDT [facility] MONOCYTE ABSOLUTE 1.23 0.10 - 1.30 K/uL 11/15/2023 4:16 AM CDT [facility] EOSINOPHIL ABSOLUTE 0.07 0.00 - 0.70 K/uL 11/15/2023 4:16 AM CDT [facility] BASOPHILS ABSOLUTE 0.03 0.00 - 0.20 K/uL 11/15/2023 4:16 AM CDT [facility] IMMATURE GRANULOCYTES ABSOLUTE 0.02 0.00 - 0.03 K/uL 11/15/2023 4:16 AM CDT [facility] Blood Venipuncture / Unknown 11/15/2023 3:17 AM CDT 11/15/2023 3:45 AM CDT Yaima Mitchell MD HEMATOLOGY ORDERABLE S [facility] CLIA# [id number] [address] [place] [address] * (ABNORMAL) COMPREHENSIVE METABOLIC PANEL (11/15/2023 3:17 AM CDT) SODIUM 139 136 - 145 mmol/L 11/15/2023 4:50 AM CDT [facility] POTASSIUM 3.7 3.5 - 5.0 mmol/L 11/15/2023 4:50 AM CDT [facility] CHLORIDE 107 98 - 107 mmol/L 11/15/2023 4:50 AM [facility] CO2 20(L) 22 - 29 mmol/L 11/15/2023 4:50 AM [facility] - . [facility] CALCIUM 8.9 8.6 - 10.2 mg/dL 11/15/2023 4:50 AM [facility] - . [facility] BUN 16 6 - 20 mg/dL 11/15/2023 4:50 AM [facility] - . [facility] CREATININE 0.79 0.67 - 1.17 mg/dL 11/15/2023 4:50 AM [facility] GLUCOSE 110(H) 74 - 99 mg/dL 11/15/2023 4:50 AM [facility] - . [facility] TOTAL PROTEIN 7.0 6.7 - 8.6 g/dL 11/15/2023 4:50 AM [facility] - . [facility] ALBUMIN 3.4(L) 3.5 - 5.2 g/dL 11/15/2023 4:50 AM [facility] - . [facility] BILIRUBIN TOTAL 0.7 0.3 - 1.2 mg/dL 11/15/2023 4:50 AM [facility] - . [facility] ALKALINE PHOSPHATASE 159(H) 40 - 129 U/L 11/15/2023 4:50 AM [facility] - . [facility] AST 17 <41 U/L 11/15/2023 4:50 AM [facility] - . [facility] ALT 17 <42 U/L 11/15/2023 4:50 AM [facility] - . [facility] GFR >60 >=60 mL/min/1.7 3 sq meter 11/15/2023 4:50 AM [facility] Comment:eGFR calculated with 2020 CKD-EPI equation. Vegetarian diet, extremely high or low muscle mass, and may affect results. Cystatin C with Glomerular Filtration Rate is a suitable alternative for these patients. ANION GAP 12 8 - 16 mmol/L 11/15/2023 4:50 AM [facility] [facility] Blood Venipuncture / Unknown 11/15/2023 3:17 AM CDT 11/15/2023 3:45 AM CDT Narrative [facility] - 11/15/2023 4:50 AM CDT Samples containing indocyanine green cause interferences on Total and/or Direct Bilirubin and must not be measured. Yaima Mitchell MD CHEMISTRY ORDERABLES Performing Organization Address [facility]/ZIP Co de Phone Number [facility]# [id number] [address] [place] [address] * (ABNORMAL) C-REACTIVE PROTEIN (11/15/2023 3:17 AM CDT) [facility] CRP 300.0(H) <5.0 mg/L 11/15/2023 4:50 AM CDT [facility] Blood Venipuncture / Unknown 11/15/2023 3:17 AM CDT 11/15/2023 3:45 AM CDT Jim Nguyen MD CHEMISTRY ORDERABLES Performing Organization Address City/[facility] Co de Phone Number [facility]# [id number] [facility] [place] [address] * (ABNORMAL) BLOOD GAS VENOUS (11/14/2023 7:28 PM CDT) Pathologist [facility] PH, VENOUS 7.41 7.32 - 7.43 11/14/2023 7:32 PM CDT [facility] PCO2 VENOUS 31(L) 38 - 50 mm Hg 11/14/2023 7:32 PM CDT [facility] PO2 VENOUS 90(H) 25 - 40 mm Hg 11/14/2023 7:32 PM CDT [facility] HCO3 VENOUS 19(L) 22 - 29 mmol/L 7:32 PM CDT [facility] BASE EXCESS VENOUS -4.2 Reference Range Not Established mmol/L 11/14/2023 7:32 PM CDT [facility] HEMOGLOBIN VENOUS 14.4 No Ref Range Estab g/dL 11/14/2023 7:32 PM CDT [facility] O2 SAT EST VENOUS 98(H) 40 - 70 % 11/14/2023 7:32 PM CDT [facility] Blood, venous Venipuncture / Unknown 11/14/2023 7:28 PM CDT 11/14/2023 6:41 PM CDT Jim Nguyen MD ABG ORDERABLES [facility]# [id number] [address] [place] [address] * LACTIC ACID (11/14/2023 5:23 PM CDT) LACTIC ACID 1.6 <=2.0 mmol/L 11/14/2023 5:50 PM CDT [facility] Blood Venipuncture / Unknown 11/14/2023 5:23 PM CDT 11/14/2023 5:26 PM CDT Jim Nguyen MD CHEMISTRY ORDERABLES Performing Organization Address City/[facility]/ZIP Co de Phone Number [facility]# [id number] [address] [place] [address] * (ABNORMAL) CBC WITH DIFFERENTIAL (11/14/2023 3:44 AM CDT) WBC 16.7(H) 4.0 - 9.8 K/uL 11/14/2023 4:11 AM CDT [facility] RBC 4.05(L) 4.50 - 5.40 M/uL 11/14/2023 4:11 AM CDT [facility] HEMOGLOBIN 13.0(L) 13.6 - 16.5 g/dL 11/14/2023 4:11 AM CDT [facility] HEMATOCRIT 38.8(L) 40.0 - 48.0 % 11/14/2023 4:11 AM CDT [facility] MCV 95.8 82.0 - 99.0 fL 11/14/2023 4:11 AM CDT [facility] MCH 32.1 27.2 - 32.6 pg 11/14/2023 4:11 AM CDT [facility] - . [facility] MCHC 33.5 31.5 - 35.5 g/dL 11/14/2023 4:11 AM CDT [facility] RDW 13.4 11.5 - 14.5 % 11/14/2023 4:11 AM CDT [facility] - . [facility] RDW-STDEV 47.6 37.1 - 48.7 fL 11/14/2023 4:11 AM [employer] [facility] [place] [facility] PLATELETS 234 140 - 350 K/uL 11/14/2023 4:11 AM [employer] [facility] [place] [facility] - . [facility] MPV 9.6 9.3 - 12.4 fL 11/14/2023 4:11 AM [employer] [facility] [place] [facility] NEUTROPHILS 80 % 11/14/2023 4:11 AM CDT [facility] LYMPHOCYTES 7 % 11/14/2023 4:11 AM CDT [facility] MONOCYTES 12 % 11/14/2023 4:11 AM CDT [facility] EOSINOPHILS 0 % 11/14/2023 4:11 AM CDT [facility] BASOPHILS 0 % 11/14/2023 4:11 AM CDT [facility] IMMATURE GRANULOCYTES 1 % 11/14/2023 4:11 AM CDT [facility] Comment:IG (Immature Granulo cyte) count includes Metamyelocytes, Myelocytes, and Promyelocytes NEUTROPHIL ABSOLUTE 13.42(H) 1.90 - 7.00 K/uL 11/14/2023 4:11 AM CDT [facility] - . [facility] LYMPHOCYTE ABSOLUTE 1.11 0.70 - 4.50 K/uL 11/14/2023 4:11 AM CDT [facility] MONOCYTE ABSOLUTE 2.03(H) 0.10 - 1.30 K/uL 11/14/2023 4:11 AM CDT [facility] EOSINOPHIL ABSOLUTE 0.01 0.00 - 0.70 K/uL 11/14/2023 4:11 AM CDT [facility] BASOPHILS ABSOLUTE 0.03 0.00 - 0.20 K/uL 11/14/2023 4:11 AM CDT [facility] IMMATURE GRANULOCYTES ABSOLUTE 0.11(H) 0.00 - 0.03 K/uL 11/14/2023 4:11 AM CDT [facility] Blood Venipuncture / Unknown 11/14/2023 3:44 AM CDT 11/14/2023 3:51 AM CDT Yaima Mitchell MD HEMATOLOGY ORDERABLE S [facility] CLIA# [id number] [address] [place] [address] * (ABNORMAL) COMPREHENSIVE METABOLIC PANEL (11/14/2023 3:44 AM CDT) SODIUM 133(L) 136 - 145 mmol/L 11/14/2023 4:44 AM CDT [facility] POTASSIUM 3.7 3.5 - 5.0 mmol/L 11/14/2023 4:44 AM CDT [facility] CHLORIDE 103 98 - 107 mmol/L 11/14/2023 4:44 AM CDT [facility] CO2 19(L) 22 - 29 mmol/L 11/14/2023 4:44 AM CDT [facility] CALCIUM 8.8 8.6 - 10.2 mg/dL 11/14/2023 4:44 AM CDT [facility] BUN 16 6 - 20 mg/dL 11/14/2023 4:44 AM CDT [facility] CREATININE 0.64(L) 0.67 - 1.17 mg/dL 11/14/2023 4:44 AM [facility] GLUCOSE 142(H) 74 - 99 mg/dL 11/14/2023 4:44 AM [facility] TOTAL PROTEIN 7.3 6.7 - 8.6 g/dL 11/14/2023 4:44 AM [facility] ALBUMIN 3.8 3.5 - 5.2 g/dL 11/14/2023 4:44 AM [facility] BILIRUBIN TOTAL 1.2 0.3 - 1.2 mg/dL 11/14/2023 4:44 AM [facility] ALKALINE PHOSPHATASE 192(H) 40 - 129 U/L 11/14/2023 4:44 AM [facility] AST 31 <41 U/L 11/14/2023 4:44 AM [facility] Comment:Hemolysis present. R esult may be falsely elevated. ALT 23 <42 U/L 11/14/2023 4:44 AM [facility] GFR >60 >=60 mL/min/1.7 3 sq meter 11/14/2023 4:44 AM [facility] Comment:eGFR calculated with 2020 CKD-EPI equation. Vegetarian diet, extremely high or low muscle mass, and may affect results. Cystatin C with Glomerular Filtration Rate is a suitable alternative for these patients. ANION GAP 11 8 - 16 mmol/L 11/14/2023 4:44 AM [facility] Blood Venipuncture / Unknown 11/14/2023 3:44 AM CDT 11/14/2023 3:51 AM [facility] - 11/14/2023 4:44 AM [facility] Samples containing indocyanine green cause interferences on Total and/or Direct Bilirubin and must not be measured. Yaima Mitchell MD CHEMISTRY ORDERABLES [facility] CLIA# [id number] [address] [place] [address] * TROPONIN 6 HR, 5TH GEN (11/14/2023 3:44 AM CDT) TROPONIN T, 6 HR 5TH GEN 9 <=15 ng/L 11/14/2023 4:44 AM CDT [facility] Blood Venipuncture / Unknown 11/14/2023 3:44 AM CDT 11/14/2023 3:51 AM CDT Narrative [facility] - 11/14/2023 4:44 AM CDT Troponin Detectable but normal range. Unable to calculate delta. Delay in collection of timed specimen beyond recommended collection interval. Results must be interpreted in clinical context. Yaima Mitchell MD CHEMISTRY ORDERABLES [facility] CLIA# [id number] [address] [place] [address] * (ABNORMAL) C-REACTIVE PROTEIN (11/13/2023 10:25 PM CDT) Pathologist [facility] CRP 266.0(H) <5.0 mg/L 11/13/2023 11:41 PM CDT [facility] Blood Venipuncture / Unknown 11/13/2023 10:25 PM CDT 11/13/2023 10:40 PM CDT Iva Joseph PA-C CHEMISTRY ORDERABL ES [facility] CLIA# [id number] [address] [place] [address] * TROPONIN 2 HR, 5TH GEN (11/13/2023 10:25 PM CDT) TROPONIN T, 2 HR 5TH GEN 6 <=15 ng/L 11/13/2023 11:24 PM CDT [facility] Blood Venipuncture / Unknown 11/13/2023 10:25 PM CDT 11/13/2023 10:40 PM CDT Narrative [facility] - 11/13/2023 11:24 PM CDT Troponin Detectable but normal range. Delay in collection of timed specimen beyond recommended collection interval. Results must be interpreted in clinical context. Unable to calculate delta. Gilberto Cote DO CHEMISTRY ORDERABLES [facility] CLIA# [id number] [address] [place], [place] [address] * CT CHEST ABDOMEN PELVIS WO CONT [...] of cholecystitis. DICTATION LOCATION: Location 1 - [facility] Narrative 11/13/2023 9:[address] CHEST, ABDOMEN [...] of cholecystitis. DICTATION LOCATION: Location 1 - [facility] Gilberto Cote CT ORDERABLES * POC LACTIC ACID (11/13/2023 6:57 PM CDT) LACTIC ACID POC 1.9 <=2.0 mmol/L 11/13/2023 6:57 PM CDT [facility] SPECIMEN SOURCE, GASES POC Blank 11/13/2023 6:57 PM CDT [facility] COMMENT, GASES POC Responsible Clinical Caregiver notified 11/13/2023 6:57 PM CDT [facility] Blood 11/13/2023 6:57 PM CDT 11/13/2023 6:58 PM CDT [place] POINT OF CARE TESTIN G [facility]# [id number] [address] [place] [address] * (ABNORMAL) BLOOD CULTURE PATHOGEN PCR PANEL (11/13/2023 6:51 PM CDT) [facility] Streptococcus spp by PCR DETECTED( A) Not Detected 11/14/2023 2:28 PM CDT [facility] Blood (Peripheral) Venipuncture / Unknown 11/13/2023 6:51 PM CDT 11/13/2023 7:02 PM CDT Narrative [facility] - 11/14/2023 2:28 PM CDT The Film [...] ??The following organisms are identified using the Mom[employer]me[employer] BCID Panel: Gram Positive Bacteria Enterococcus faecalis [...] auris Nakaseomyces glabrata(formerly Tatiana glabrata) Pichia kudriavzevii(formerly Tatiana krusei) Tatiana parapsilosis Tatiana tropicalis Cryptococcus neoformans/iveth Gilberto Cote DO 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 - [facility] AL ORDERABLES Performing Organization Address [facility]/ZIP Co de Phone Number [facility] [id number] [address] [facility] [place] [address] * (ABNORMAL) LIPASE (11/13/2023 6:51 PM CDT) Pathologist [facility] LIPASE 10(L) 13 - 60 U/L 11/13/2023 9:35 PM CDT [facility] Blood Venipuncture / Unknown 11/13/2023 6:51 PM CDT 11/13/2023 7:03 PM CDT Gilberto Cote DO CHEMISTRY ORDERABLES Performing Organization Address [facility] Co de Phone Number [facility]# [id number] [address] [facility] [place] [address] * (ABNORMAL) BLOOD CULTURE (11/13/2023 6:51 PM CDT) Pathologist [facility] BLOOD CULTURE Abnormal Gram Stain(A) 11/16/2023 11:13 AM CDT [facility] BLOOD CULTURE Culture positive for Streptococcus viridans-sanguini s group(A) JERMAINE MCG/ML 11/16/2023 11:13 AM CDT [facility] Comment:Susceptibility on pr evious culture. Blood (Peripheral) Venipuncture / Unknown 11/13/2023 6:51 PM CDT 11/13/2023 7:04 PM CDT [facility] - 11/16/2023 11:13 AM CDT Results called to Annmarie Graham RN on 11/14/2023 at 2:31 PM and read back verified. Time to Positivity (aerobic bottle): ??17.4 hours Time to Positivity (anaerobic bottle): ??19.8 hours Blood stream infection is more likely to be catheter related if the time to positivity of a blood culture drawn through the line is at least 2.5 hours LESS than the time to positivity of a percutaneous culture of the same volume drawn at the same time, using the same media type. Gilberto Cote DO 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 - GENER AL ORDERABLES [facility]# [id number] [address] [facility] [address] * (ABNORMAL) BLOOD CULTURE (11/13/2023 6:51 PM CDT) BLOOD CULTURE Abnormal Gram Stain(A) 11/19/2023 3:09 PM CDT [facility] BLOOD CULTURE Culture positive for Streptococcus viridans-sanguini s group(A) JERMAINE MCG/ML 11/19/2023 3:09 PM CDT [facility] Blood (Peripheral) Venipuncture / Unknown 11/13/2023 6:51 PM CDT 11/13/2023 7:02 PM CDT [facility] - 11/19/2023 3:09 PM CDT Gram stain and preliminary PCR results called to Annmarie Graham RN on 11/14/2023 at 2:30 PM and read back verified. Time to Positivity (aerobic bottle): ??16.8 hours Blood stream infection is more likely to be catheter related if the time to positivity of a blood culture drawn through the line is at least 2.5 hours LESS than the time to positivity of a percutaneous culture of the same volume drawn at the same time, using the same media type. Organism Antibiotic Method Susceptibility Streptococcus viridans-sanguinis group BENZYLPENICILLIN JERMAINE MCG/ML 0.12 mcg/mL: Susceptible Streptococcus viridans-sanguinis group AMPICILLIN JERMAINE MCG/ML <=0.25 mcg/mL: Susceptible Streptococcus viridans-sanguinis group CEFTRIAXONE JERMAINE MCG/ML <=0.12 mcg/mL: Susceptible Streptococcus viridans-sanguinis group VANCOMYCIN JERMAINE MCG/ML <=0.12 mcg/mL: Susceptible Streptococcus viridans-sanguinis group CLINDAMYCIN JERMAINE MCG/ML 0.5 mcg/mL: Intermediate Gilberto Cote DO 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 - [facility] AL ORDERABLES Performing Organization Address City/[facility]/ZIP Co de Phone Number [facility] CLIA# [id number] [address] [place] [address] * PROLACTIN (11/13/2023 6:51 PM CDT) PROLACTIN 5.5 4.0 - 15.2 ng/mL 11/13/2023 7:49 PM CDT [facility] Blood Venipuncture / Unknown 11/13/2023 6:51 PM CDT 11/13/2023 7:03 PM CDT Gilberto Cote DO CHEMISTRY ORDERABLES Performing Organization Address City/[facility]/ZIP Co de Phone Number [facility]# [id number] [address] [place] [address] * TROPONIN BASELINE, 5TH GEN (11/13/2023 6:51 PM CDT) TROPONIN T, BASELINE 5TH GEN <6 <=15 ng/L 11/13/2023 7:49 PM CDT [facility] Blood Venipuncture / Unknown 11/13/2023 6:51 PM CDT 11/13/2023 7:03 PM CDT Narrative [facility] - 11/13/2023 7:49 PM CDT Troponin Undetectable Gilberto Surajgovind SAGASTUME CHEMISTRY ORDERABLES [facility] CLIA# [id number] [address] [place] [address] * (ABNORMAL) BRAIN NATRIURETIC PEPTIDE, BNP OR PROBNP (11/13/2023 6:51 PM CDT) PROBNP, N TERMINAL 979(H) <124 pg/mL 11/13/2023 7:49 PM CDT [facility] Comment: INTERPRETIVE COMMENT based on diagnosis: Diagnostic [...] PM CDT 11/13/2023 7:03 PM CDT Gilberto Cote DO CHEMISTRY ORDERABLES [facility] CLIA# [id number] [address] [place] [address] * (ABNORMAL) COMPREHENSIVE METABOLIC PANEL (11/13/2023 6:51 PM CDT) SODIUM 134(L) 136 - 145 mmol/L 11/13/2023 7:49 PM CDT [facility] POTASSIUM 4.3 3.5 - 5.0 mmol/L 11/13/2023 7:49 PM [facility] - . [facility] CHLORIDE 99 98 - 107 mmol/L 11/13/2023 7:49 PM [facility] CO2 21(L) 22 - 29 mmol/L 11/13/2023 7:49 PM [facility] - . [facility] CALCIUM 10.0 8.6 - 10.2 mg/dL 11/13/2023 7:49 PM [facility] - . [facility] BUN 17 6 - 20 mg/dL 11/13/2023 7:49 PM [facility] - . [facility] CREATININE 0.80 0.67 - 1.17 mg/dL 11/13/2023 7:49 PM [facility] - . [facility] GLUCOSE 165(H) 74 - 99 mg/dL 11/13/2023 7:49 PM [facility] - . [facility] TOTAL PROTEIN 8.6 6.7 - 8.6 g/dL 11/13/2023 7:49 PM [facility] - . [facility] ALBUMIN 4.4 3.5 - 5.2 g/dL 11/13/2023 7:49 PM [facility] - . [facility] BILIRUBIN TOTAL 1.1 0.3 - 1.2 mg/dL 11/13/2023 7:49 PM [facility] - . [facility] ALKALINE PHOSPHATASE 212(H) 40 - 129 U/L 11/13/2023 7:49 PM [facility] - [facility] AST 32 <41 U/L 11/13/2023 7:49 PM [facility] LAB[facility]ATORY [facility] Comment:Hemolysis present. R esult may be falsely elevated. ALT 22 <42 U/L 11/13/2023 7:49 PM [facility] GFR >60 >=60 mL/min/1.7 3 sq meter 11/13/2023 7:49 PM [facility] Comment:eGFR calculated with 2020 CKD-EPI equation. Vegetarian diet, extremely high or low muscle mass, and may affect results. Cystatin C with Glomerular Filtration Rate is a suitable alternative for these patients. ANION GAP 14 8 - 16 mmol/L 11/13/2023 7:49 PM CDT [facility] Blood Venipuncture / Unknown 11/13/2023 6:51 PM CDT 11/13/2023 7:03 PM CDT [facility] LABORATORY SERVICES - [facility] - 11/13/2023 7:49 PM CDT Samples containing indocyanine green cause interferences on Total and/or Direct Bilirubin and must not be measured. Gilberto Cote DO CHEMISTRY ORDERABLES [facility] - [facility] CLIA# [id number] [address] [place] [address] * (ABNORMAL) CBC WITH DIFFERENTIAL (11/13/2023 6:51 PM CDT) WBC 19.9(H) 4.0 - 9.8 K/uL 11/13/2023 7:15 PM CDT [facility] RBC 4.39(L) 4.50 - 5.40 M/uL 11/13/2023 7:15 PM CDT [facility] HEMOGLOBIN 14.0 13.6 - 16.5 g/dL 11/13/2023 7:15 PM CDT [facility] - [facility] HEMATOCRIT 41.5 40.0 - 48.0 % 11/13/2023 7:15 PM CDT [facility] - [facility] MCV 94.5 82.0 - 99.0 fL 11/13/2023 7:15 PM CDT [facility] - [facility] MCH 31.9 27.2 - 32.6 pg 11/13/2023 7:15 PM CDT [facility] MCHC 33.7 31.5 - 35.5 g/dL 11/13/2023 7:15 PM CDT [facility] - [facility] RDW 13.4 11.5 - 14.5 % 11/13/2023 7:15 PM CDT [facility] - [facility] RDW-STDEV 47.4 37.1 - 48.7 fL 11/13/2023 7:15 PM CDT [facility] - . [facility] PLATELETS 281 140 - 350 K/uL 11/13/2023 7:15 PM CDT [facility] MPV 10.1 9.3 - 12.4 fL 11/13/2023 7:15 PM CDT [facility] - [facility] NEUTROPHILS 82 % 11/13/2023 7:15 PM CDT [facility] LYMPHOCYTES 5 % 11/13/2023 7:15 PM CDT [facility] MONOCYTES 12 % 11/13/2023 7:15 PM CDT [facility] EOSINOPHILS 0 % 11/13/2023 7:15 PM CDT [facility] BASOPHILS 0 % 11/13/2023 7:15 PM CDT [facility] - . [facility] IMMATURE GRANULOCYTES 1 % 11/13/2023 7:15 PM CDT [facility] Comment:IG (Immature Granulo cyte) count includes Metamyelocytes, Myelocytes, and Promyelocytes NEUTROPHIL ABSOLUTE 16.39(H) 1.90 - 7.00 K/uL 11/13/2023 7:15 PM CDT [facility] LYMPHOCYTE ABSOLUTE 0.94 0.70 - 4.50 K/uL 11/13/2023 7:15 PM CDT [facility] MONOCYTE ABSOLUTE 2.37(H) 0.10 - 1.30 K/uL 11/13/2023 7:15 PM CDT [facility] EOSINOPHIL ABSOLUTE 0.02 0.00 - 0.70 K/uL 11/13/2023 7:15 PM CDT [facility] BASOPHILS ABSOLUTE 0.03 0.00 - 0.20 K/uL 11/13/2023 7:15 PM CDT [facility] - . [facility] IMMATURE GRANULOCYTES ABSOLUTE 0.14(H) 0.00 - 0.03 K/uL 11/13/2023 7:15 PM CDT [facility] Blood Venipuncture / Unknown 11/13/2023 6:51 PM CDT 11/13/2023 7:03 PM CDT Gilberto Cote DO HEMATOLOGY ORDERABLE S Performing Organization Address [facility]/State/ZIP Co de Phone Number [facility]# [id number] [address] [place] [address] * EKG 12-LEAD (11/13/2023 6:26 PM CDT) 11/13/2023 6:26 PM CDT Narrative INTERFACE SYSTEM - 11/14/2023 8:30 AM CDT ? [facility] ? [address] , [place] [address] ? Test Date: ?2023-11-13 Pat Name: ? CURT BEEBE ?Department: ?? 40 ? Room: ? 7388 Gender: ? Male ? 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 kim : ?1985 ? Requested By: GILBERTO COTE ?? Order Number: [id number] ? Reading : ?? Alvarez Chan ? Measurements Intervals ?[place] ? Rate: ? 66 ? P: ?13 [place]: ? 148 ?QRS: ?16 QRSD: ? 99 ? T: ?7 QT: ? 361 ? QTc: ?379 ? 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: kim : 1985 Requested By: GILBERTO COTE Order Number: [id number] Aixa MD: Alvarez Chan Measurements Intervals [place] Rate: 66 P: 13 [place]: 148 QRS: 16 QRSD: 99 T: 7 QT: 361 QTc: 379 Interpretive Statements Incomplete analysis due to missing data in precordial lead(s) Sinus rhythm Borderline T abnormalities, anterior leads Electronically Signed On 10-3-2024 8:30:05 CDT by Alvarez Chan Gilberto Cote DO ECG ORDERABLES INTERFACE SYSTEM Refer to clinic/hospital department * (ABNORMAL) RESPIRATORY PATHOGEN PCR PANEL (11/13/2023 6:11 PM CDT) COVID-19 PCR NOT DETECTED Not Detected 11/13/2023 7:57 PM CDT [facility] Respiratory syncytial virus by PCR DETECTED(A) Not Detected 11/13/2023 7:57 PM CDT [facility] Upper Respiratory ENTIRE NASOPHARYNX / Unknown Collection / Unknown 11/13/2023 6:11 PM CDT 11/13/2023 6:39 PM CDT [facility] - 11/13/2023 7:57 PM CDT The Film Array Respiratory Panel (RP2.1) is [...] pertussis Bordetella parapertussis Chlamydophila pneumoniae Mycoplasma pneumoniae Gilberto Cote DO 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 - [facility] AL ORDERABLES [facility]# [id number] [address] [id number] documented in this encounter Visit Diagnoses Diagnosis Acute calculous cholecystitis- Primary Calculus of gallbladder with acute cholecystitis, without mention of obstruction Cholecystitis Cholecystitis, unspecified 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, complex partial, with intractable epilepsy Localization-related (focal) (partial) epilepsy and epileptic syndromes with complex partial seizures, with intractable epilepsy Leukocytosis, unspecified type RSV infection Respiratory syncytial virus (RSV) Generalized muscle weakness Muscle weakness (generalized) Development delay Unspecified delay in development Seizure disorder, complex partial, with intractable epilepsy Localization-related (focal) (partial) epilepsy and epileptic syndromes with complex partial seizures, with intractable epilepsy RSV infection Respiratory syncytial virus (RSV) Streptococcal bacteremia Bacteremia History of penicillin allergy Personal history of allergy to penicillin Generalized muscle weakness Muscle weakness (generalized) Post-ictal state Autism Autistic disorder, current or active state documented in this encounter Administered Medications Inactive Administered Medications - up to 3 most recent administrations Medication Order MAR Action Action Date Dose Rate Site acetaminophen (TYLENOL) 325 mg/10.15 mL oral solution 650 mg 650 mg, Oral, ONE TIME ONLY, 1 dose, On Emily 11/14/23 at 0030, Routine Given 11/14/2023 3:22 AM CDT 650 mg acetaminophen (TYLENOL) 325 mg/10.15 mL oral solution 650 mg 650 mg, Oral, EVERY 6 HOURS PRN, Starting on Emily 11/14/23 at 1650, Until Sat11/29/23 at 0006, Pain, Mild, Pain, Mild / Temperature, fever, Routine Given 11/26/2023 9:47 PM CDT 650 mg Given 11/25/2023 11:58 PM CDT 650 mg Given 11/24/2023 12:03 AM CDT 650 mg aluminum - magnesium - simethicone (MYLANTA) 200-200-20 mg/5 mL oral suspension 30 mL 30 mL, Oral, EVERY 2 HOURS PRN, Starting on Emily 11/14/23 at 0122, Until Sat11/29/23 at 0006, Indigestion, Routine aztreonam (AZACTAM) 1,000 mg in sodium chloride 0.9% 50 mL IVPB (MBP) 1,000 mg, IV, EVERY 8 HOURS, First dose on Emily 11/14/23 at 0900, Until Discontinued, Routine, Antibiotic Indication: Intra-abdominal infection / Fecal Contamination New Bag 11/14/2023 8:30 AM CDT 1,000 mg 118 mL/hr aztreonam (AZACTAM) 1,000 mg in sodium chloride 0.9% 50 mL IVPB (MBP) 1,000 mg, IV, ONE TIME ONLY, 1 dose, On Sat11/13/23 at 2130, Routine, Antibiotic Indication: Intra-abdominal infection / Fecal Contamination New Bag 11/14/2023 12:19 AM CDT 1,000 mg 118 mL/hr bisacodyL (DULCOLAX) rectal suppository 10 mg 10 mg, Rectal, DAILY PRN, Starting on Sat11/20/23 at 1510, Until Sat11/29/23 at 0006, Constipation, Routine Given 11/20/2023 3:17 PM CDT 10 mg busPIRone (BUSPAR) tablet 10 mg 10 mg, Oral, THREE TIMES DAILY, First dose on Sat11/14/23 at 1200, Until Discontinued, Routine, Previous Med: busPIRone (BUSPAR) 10 mg Oral tablet - Orig Sig - Take 10 mg by mouth 3 times daily. Given 11/28/2023 5:40 PM CDT 10 mg Given 11/28/2023 1:45 PM CDT 10 mg Given 11/28/2023 5:59 AM CDT 10 mg cefTRIAXone (ROCEPHIN) 2,000 mg in sodium chloride 0.9% 50 mL IVPB (MBP) 2,000 mg, IV, ONE TIME ONLY, 1 dose, On Sat11/14/23 at 1730, Routine, Tolerated cefazolin in past, Antibiotic Indication: Bacteremia New Bag 11/14/2023 5:54 PM CDT 2,000 mg 118 mL/hr cefTRIAXone (ROCEPHIN) 2,000 mg in sodium chloride 0.9% 50 mL IVPB (MBP) 2,000 mg, IV, EVERY 24 HOURS (DAILY), 13 doses, First dose (after last reorder) on Sat11/15/23 at 1100, Last dose on Sat11/27/23 at 0600, Routine, Tolerated cefazolin in past, Antibiotic Indication: Bacteremia New Bag 11/27/2023 5:18 AM CDT 2,000 m g 118 mL/hr New Bag 11/26/2023 5:56 AM CDT 2,000 mg 118 mL/hr New Bag 11/25/2023 6:21 AM CDT 2,000 mg 118 mL/hr cloBAZam (ONFI) tablet 40 mg 40 mg, Oral, DAILY AT BEDTIME, First dose on Sat11/14/23 at 2100, Until Discontinued, Routine, Previous Med: cloBAZam (ONFI) 10 mg Tablet - Orig Sig - Take 40 mg by mouth daily at bedtime. Given 11/27/2023 8:48 PM CDT 40 mg Given 11/26/2023 9:48 PM CDT 40 mg Given 11/25/2023 8:30 PM CDT 40 mg cloNIDine (MKNKVLLA-LFX-0) 0.1 mg/24 hr transdermal patch 1 Patch 1 Patch, Transdermal, EVERY 7 DAYS, First dose on Sat11/15/23 at 1900, Until Discontinued, Routine Applied 11/22/2023 7:07 PM CDT 1 Patch Ear, Right Applied 11/15/2023 8:53 PM CDT 1 Patch Ar m, Right cloNIDine HCL (CATAPRES) tablet 0.3 mg 0.3 mg, Oral, DAILY LATE, First dose on Sat11/14/23 at 1600, Until Discontinued, Routine, Previous Med: cloNIDine HCl (CATAPRES) 0.3 mg tablet - Orig Sig - Take 0.3 mg by mouth Daily LATE. At 8 PM , On hold since Sat11/15/2023 at 1644 until manually unheld Given 11/14/2023 5:48 PM CDT 0.3 mg docusate sodium (COLACE) capsule 100 mg 100 mg, Oral, TWO TIMES DAILY, First dose on Sat11/14/23 at 0600, Until Discontinued, Routine, Previous Med: docusate sodium (COLACE) 100 mg Oral capsule - Orig Sig - Take 100 mg by mouth 2 times daily. Given 11/28/2023 5:42 PM CDT 100 mg Given 11/28/2023 5:59 AM CDT 100 mg Given 11/27/2023 6:45 PM CDT 100 mg enoxaparin (LOVENOX) injection 40 mg 40 mg, subCUT, EVERY 24 HOURS, First dose on Sat11/14/23 at 1100, Until Discontinued, Routine, Indication: Prophylaxis of VTE Given 11/28/2023 11:20 AM CDT 40 mg Abdomen, Right Lower Quadrant Given 11/27/2023 10:13 AM CDT 40 mg A bdomen, Right Lower Quadrant Given 11/26/2023 11:01 AM CDT 40 mg A bdomen, Left Lower Quadrant famotidine (PEPCID) tablet 20 mg 20 mg, Oral, TWO TIMES DAILY, First dose on Sat11/14/23 at 0600, Until Discontinued, Routine, Previous Med: famotidine (PEPCID) 20 mg tablet - Orig Sig - Take 20 mg by mouth 2 times daily. Given 11/28/2023 5:41 PM CDT 20 mg Given 11/28/2023 5:59 AM CDT 20 mg Given 11/27/2023 6:45 PM CDT 20 mg famotidine PF (PEPCID) 20 mg/2 mL injection 20 mg 20 mg, IV, ONE TIME ONLY, 1 dose, On Sat11/19/23 at 0630, Routine Given 11/19/2023 6:40 AM CDT 20 mg hydrOXYzine HCL (ATARAX) tablet 25 mg 25 mg, Oral, THREE TIMES DAILY PRN, Starting on Sat11/14/23 at 0121, Until Sat11/29/23 at 0006, Itching, Routine, Previous Med: hydrOXYzine HCL (ATARAX) 25 mg tablet - Orig Sig - Take 25 mg by mouth 3 times daily as needed for Itching. Given 11/26/2023 11:00 AM CDT 25 mg ibuprofen (MOTRIN) tablet 400 mg 400 mg, Oral, EVERY 6 HOURS PRN, Starting on Sat11/15/23 at 1638, Until Sat11/24/23 at 1102, Pain, Mild, Routine, On hold since Sat11/20/2023 at 1503 until manually unheld Given 11/15/2023 6:25 PM CDT 400 mg iopamidoL (ISOVUE-300) 61% injection (drawn from multi-use bulk pack) 100 mL 100 mL, IV, INTRA-PROCEDURE ONCE, 1 dose, Starting on Sat11/17/23 at 0347, Until Sat11/17/23 at 0347, Routine Contrast Given 11/17/2023 3:47 AM CDT 100 mL iopamidoL (ISOVUE-300) 61% injection (drawn from multi-use bulk pack) 80 mL 80 mL, IV, INTRA-PROCEDURE ONCE, 1 dose, Starting on Sat11/21/23 at 1010, Until Sat11/21/23 at 1010, Routine Contrast Given 11/21/2023 10:10 AM CDT 80 mL ketorolac (TORADOL) injection 10 mg 10 mg, IV, EVERY 6 HOURS PRN, 5 doses, Starting on Sat11/20/23 at 1501, Until Sat11/21/23 at 2359, Pain, Moderate, Routine Given 11/20/2023 3:17 PM CDT 10 mg lacosamide (VIMPAT) 200 mg/20 mL injection 200 mg 200 mg, IV, EVERY 12 HOURS, First dose on Emily 11/14/23 at 1200, Until Discontinued, Routine, On hold since Sat11/22/2023 at 1445 until manually unheld Given 11/22/2023 12:46 PM CDT 200 mg Given 11/22/2023 1:45 AM CDT 200 mg Given 11/21/2023 12:17 PM CDT 200 mg lacosamide (VIMPAT) 200 mg/20 mL injection 200 mg 200 mg, IV, ONE TIME ONLY, 1 dose, On Sat11/25/23 at 1815, Routine Given 11/25/2023 6:47 PM CDT 200 mg lacosamide (VIMPAT) 200 mg/20 mL injection 200 mg 200 mg, IV, ONE TIME ONLY, 1 dose, On Sat11/27/23 at 0845, Routine Given 11/27/2023 9:34 AM CDT 200 mg lacosamide (VIMPAT) tablet 200 mg 200 mg, Oral, TWO TIMES DAILY, First dose on Emily 11/14/23 at 0900, Until Discontinued, Routine, Previous Med: lacosamide (VIMPAT) 100 mg tablet - Orig Sig - Take 200 mg by mouth 2 times daily . Given 11/28/2023 6:43 PM CDT 200 mg Given 11/28/2023 6:03 AM CDT 200 mg Given 11/27/2023 6:38 PM CDT 200 mg lactated ringers bolus solution 1,000 mL 1,000 mL, IV, ONE TIME ONLY, 1 dose, On 11/24/23 at 1900, at 2,000 mL/hr, Administer over 30 Minutes, Routine New Bag 11/24/2023 6:57 PM CDT 1,000 mL 2000 mL/hr lamoTRIgine (LaMICtal) tablet 150 mg 150 mg, Oral, DAILY AFTER LUNCH, First dose on Emily 11/14/23 at 1300, Until Discontinued, Routine, Previous Med: lamoTRIgine (LaMICtal) 150 mg tablet - Orig Sig - Take 150 mg by mouth daily after lunch. Given 11/28/2023 1:45 PM CDT 150 mg Given 11/27/2023 1:20 PM CDT 150 mg Given 11/26/2023 12:34 PM CDT 150 mg lamoTRIgine (LaMICtal) tablet 250 mg 250 mg, Oral, ONE TIME ONLY, 1 dose, On Sat11/25/23 at 2100, Routine Given 11/25/2023 8:31 PM CDT 250 mg lamoTRIgine (LaMICtal) tablet 300 mg 300 mg, Oral, TWO TIMES DAILY, First dose on Sat11/14/23 at 0900, Until Discontinued, Routine, Previous Med: lamoTRIgine (LaMICtal) 150 mg tablet - Orig Sig - Take 300 mg by mouth 2 times daily. Given 11/28/2023 5:42 PM CDT 300 mg Given 11/28/2023 5:58 AM CDT 300 mg Given 11/27/2023 6:36 PM CDT 300 mg levETIRAcetam (KEPPRA) 500 mg/5 mL injection 1,000 mg 1,000 mg, IV, TWO TIMES DAILY, First dose on Sat11/14/23 at 1145, Until Discontinued, Routine Given 11/15/2023 7:11 AM CDT 1,000 mg Given 11/14/2023 5:48 PM CDT 1,000 mg Given 11/14/2023 12:16 PM CDT 1,000 mg levETIRAcetam (KEPPRA) 500 mg/5 mL injection 1,000 mg 1,000 mg, IV, TWO TIMES DAILY, First dose on Sat11/15/23 at 1800, Until Discontinued, Routine, On hold since Sat11/21/2023 at 1124 until manually unheld Given 11/21/2023 5:58 AM CDT 1,000 mg Given 11/20/2023 5:52 PM CDT 1,000 mg Given 11/20/2023 6:33 AM CDT 1,000 mg levoFLOXacin (LEVAQUIN) 500 mg/100 mL in D5W IVPB 500 mg 500 mg, IV, EVERY 24 HOURS, First dose on Sat11/14/23 at 1100, Until Discontinued, Routine, Antibiotic Indication: Pneumonia - Community-acquired(CAP) New Bag 11/14/2023 10:46 AM CDT 500 mg 100 mL /hr LORazepam (ATIVAN) 2 mg/mL injection 1 mg 1 mg, IV, EVERY 6 HOURS PRN, Starting on Sat11/14/23 at 1144, Until Sat11/27/23 at 0737, Seizures, Routine Given 11/27/2023 1:43 AM CDT 1 mg Given 11/26/2023 6:06 PM CDT 1 mg menthol (HALLS COUGH DROP) lozenge 5.8 mg 5.8 mg (1 Lozenge), Mouth/Throat, EVERY 2 HOURS PRN, Starting on Sat11/19/23 at 1611, Until Sat11/29/23 at 0006, Sore Throat, Routine Given 11/19/2023 4:22 PM CDT 5.8 mg metroNIDAZOLE (FLAGYL) IVPB 500 mg 500 mg, IV, EVERY 8 HOURS, First dose on Sat11/13/23 at 2345, Until Discontinued, Routine, Antibiotic Indication: Intra-abdominal infection / Fecal Contamination New Bag 11/14/2023 10:48 AM CDT 500 mg 100 mL/hr New Bag 11/14/2023 3:21 AM CDT 500 mg 100 mL/hr morphine 4 mg/mL injection 2 mg 2 mg, IV, EVERY 4 HOURS PRN, Starting on Sat11/14/23 at 0122, Until Sat11/25/23 at 0648, Pain (See admin instructions), Routine Given 11/19/2023 5:59 AM CDT 2 mg Given 11/18/2023 6:47 PM CDT 2 mg multivitamin with vnvrshwy-izuskmyu-avdsly (CENTRUM SILVER) 0.4 mg-300 mcg- 250 mcg per tablet 1 Tablet 1 Tablet, Oral, DAILY, First dose on Sat11/14/23 at 0600, Until Discontinued, Routine, Previous Med: multivitamin (DAILY-KALYN) tablet - Orig Sig - Take 1 Tab by mouth daily. Given 11/17/2023 5:32 AM CDT 1 Tablet naloxone (NARCAN) 0.4 mg/mL injection 0.1 mg 0.1 mg, IV, SEE ADMIN INSTRUCTIONS, Starting on Sat11/14/23 at 0122, Until Sat11/29/23 at 0006, Routine naproxen (NAPROSYN) tablet 250 mg 250 mg, Oral, TWO TIMES DAILY WITH MEALS, First dose on Sat11/24/23 at 1130, Until Discontinued, Routine Given 11/28/2023 5:42 PM CDT 250 mg Given 11/28/2023 11:20 AM CDT 250 mg Given 11/27/2023 6:44 PM CDT 250 mg ondansetron (ZOFRAN) 4 mg/2 mL injection 4 mg 4 mg, IV, EVERY 6 HOURS PRN, Starting on Emily 11/14/23 at 1305, Until Sat11/29/23 at 0006, Nausea/Emesis, Routine Given 11/19/2023 5:53 AM CDT 4 mg Given 11/18/2023 9:10 PM CDT 4 mg Given 11/18/2023 1:00 AM CDT 4 mg pantoprazole (PROTONIX) 40 mg in sodium chloride 0.9% 10 mL injection 40 mg, IV, DAILY, First dose on Emily 11/21/23 at 0600, Until Discontinued, Routine, For vial+diluent: 10 mL NS is needed to reconstitute pantoprazole vial. For doses less than 40 mg Epic may default less than 10 mL NS. Pharmacist to change NS dispense amount to 10 mL., Indication: Gastroesophageal reflux disease (GERD) Given 11/28/2023 5:59 AM CDT 40 mg Given 11/27/2023 5:46 AM CDT 40 mg Given 11/26/2023 5:57 AM CDT 40 mg perflutren lipid microspheres (DEFINITY) 1.1 mg/mL injection 2 mL 2 mL, IV, INTRA-PROCEDURE ONCE, 1 dose, Starting on 11/17/23 at 0645, Until 11/17/23 at 0646, Routine Contrast Given 11/17/2023 6:46 AM CDT 2 mL potassium Cl in dextrose 5% - NaCl 0.9% 1,000 mL 20 mEq/L infusion IV, at 75 mL/hr, CONTINUOUS, Starting on 11/16/23 at 0715, Until 11/19/23 at 1106, Routine New Bag 11/18/2023 11:05 PM CDT 75 mL/hr Restarted 11/18/2023 9:16 PM CDT 75 mL/hr Rate Change 11/18/2023 8:13 AM CDT 75 mL/hr prochlorperazine (COMPAZINE) injection 5 mg 5 mg, IV, EVERY 6 HOURS PRN, Starting on Sat11/14/23 at 1546, Until Sat11/29/23 at 0006, Nausea/Emesis, Routine Given 11/14/2023 4:12 PM CDT 5 mg propranoloL (INDERAL LA) SR 24 hour capsule 160 mg 160 mg, Oral, DAILY, First dose on Sat11/14/23 at 0900, Until Discontinued, Routine, Previous Med: propranoloL (INDERAL LA) 160 mg Long Acting 24 hour capsule - Orig Sig - Take 160 mg by mouth daily. Given 11/27/2023 10:00 AM CDT 160 mg Given 11/26/2023 6:21 AM CDT 160 mg Given 11/24/2023 4:55 AM CDT 160 mg sodium chloride 0.9% bolus solution 500 mL 500 mL, IV, ONE TIME ONLY, 1 dose, On Sat11/13/23 at 2130, at 999 mL/hr, Administer over 30 Minutes, Routine Bolus 11/13/2023 10:20 PM CDT 500 mL 999 mL/hr sodium chloride 0.9% bolus solution 500 mL 500 mL, IV, ONE TIME ONLY, 1 dose, On Sat11/14/23 at 1700, at 500 mL/hr, Administer over 60 Minutes, Routine New Bag 11/14/2023 5:51 PM CDT 500 mL 500 mL/hr sodium chloride 0.9% infusion IV, at 100 mL/hr, CONTINUOUS, Starting on Sat11/13/23 at 1830, Until 11/16/23 at 0705, Routine New Bag 11/16/2023 6:49 AM CDT 100 mL/hr New Bag 11/15/2023 7:47 PM CDT 100 mL/hr New Bag 11/15/2023 1:05 PM CDT 100 mL/hr sodium chloride 0.9% infusion IV, at 125 mL/hr, CONTINUOUS, Starting on Sat11/13/23 at 2130, Until Sat11/14/23 at 1143, Routine New Bag 11/14/2023 12:18 AM CDT 125 m L/hr New Bag 11/13/2023 10:20 PM CDT 125 mL/hr sodium chloride flush injection 10 mL 10 mL, IV, ONE TIME ONLY, 1 dose, On Sat11/15/23 at 0945, Routine Given 11/15/2023 9:15 AM CDT 10 mL sodium chloride flush injection 10 mL 10 mL, IV, PRE-PROCEDURE ONCE, 1 dose, Starting on Emily 11/21/23 at 1010, Until Emily 11/21/23 at 1010, Routine Given 11/21/2023 10:10 AM CDT 10 mL Zonisamide (ZONEGRAN) capsule 400 mg 400 mg, Oral, TWO TIMES DAILY, First dose on Emily 11/14/23 at 0900, Until Discontinued, Routine, Previous Med: Zonisamide (ZONEGRAN) 100 mg capsule - Orig Sig - Take 400 mg by mouth 2 times daily. Given 11/28/2023 5:41 PM CDT 400 mg Given 11/28/2023 5:59 AM CDT 400 mg Given 11/27/2023 6:42 PM CDT 400 mg Zonisamide (ZONEGRAN) capsule 400 mg 400 mg, Oral, ONE TIME ONLY, 1 dose, On 11/25/23 at 2100, Routine Given 11/25/2023 8:31 PM CDT 400 mg documented in this encounter Active and Recently Administered Medications Times are shown in CDT. Scheduled Medication Order 11/26/2023 11/27/2023 11/28/2023 busPIRone (BUSPAR) tablet 10 mg 10 mg, Oral, THREE TIMES DAILY, First dose on Emily 11/14/23 at 1200, Until Discontinued, Routine, Previous Med: busPIRone (BUSPAR) 10 mg Oral tablet - Orig Sig - Take 10 mg by mouth 3 times daily. 0621 (Given - Provider: WESTLEY Lan)1101 (Given - Provider: Ethel Salazar, MAURO)1732 (Given - Provider: Naty Varner, MAURO) 0512 (Given - Provider: Lincoln Paez, MAURO)1223 (Given - Provider: Concepcion Sahu, MAURO)1841 (Given - Provider: Tammy Sean, MAURO) 0559 (Given - Provider: Gladys Mendoza, MAURO)1345 (Given - Provider: Monica Hull, MAURO)1740 (Given - Provider: Monica Hull, MAURO) cefTRIAXone (ROCEPHIN) 2,000 mg in sodium chloride 0.9% 50 mL IVPB (MBP) (COMPLETED) 2,000 mg, IV, EVERY 24 HOURS (DAILY), 13 doses, First dose (after last reorder) on Sat11/15/23 at 1100, Last dose on Sat11/27/23 at 0600, Routine, Tolerated cefazolin in past, Antibiotic Indication: Bacteremia 0556 (New Bag - Provider: WESTLEY Lan)0626 (Stopped - Provider: WESTLEY Lan) 0518 (New Bag - Provider: Lincoln Paez RN)0548 (Stopped - Provider: Lincoln Paez RN) cloBAZam (ONFI) tablet 40 mg 40 mg, Oral, DAILY AT BEDTIME, First dose on Sat11/14/23 at 2100, Until Discontinued, Routine, Previous Med: cloBAZam (ONFI) 10 mg Tablet - Orig Sig - Take 40 mg by mouth daily at bedtime. 2147 (Given - Provider: Lincoln Paez RN) 2047 (Given - Provider: Tammy Sena RN) 2131 (Refused - Provider: Janis Lainez RN - Comment: pt swung at RN when administering.) docusate sodium (COLACE) capsule 100 mg 100 mg, Oral, TWO TIMES DAILY, First dose on Sat11/14/23 at 0600, Until Discontinued, Routine, Previous Med: docusate sodium (COLACE) 100 mg Oral capsule - Orig Sig - Take 100 mg by mouth 2 times daily. 0621 (Given - Provider: WESTLEY Lan)1731 (Given - Provider: Naty Varner RN) 0512 (Given - Provider: Lincoln Paez RN)1845 (Given - Provider: Tammy Sena RN) 0559 (Given - Provider: Gladys Mendoza RN)1742 (Given - Provider: Monica Hull, MAURO) enoxaparin (LOVENOX) injection 40 mg 40 mg, subCUT, EVERY 24 HOURS, First dose on Sat11/14/23 at 1100, Until Discontinued, Routine, Indication: Prophylaxis of VTE 1101 (Given - Provider: Ethel Salazar RN) 1013 (Given - Provider: Concepcion Sahu RN) 1120 (Given - Provider: Monica Hull RN) famotidine (PEPCID) tablet 20 mg 20 mg, Oral, TWO TIMES DAILY, First dose on Sat11/14/23 at 0600, Until Discontinued, Routine, Previous Med: famotidine (PEPCID) 20 mg tablet - Orig Sig - Take 20 mg by mouth 2 times daily. 0617 (Given - Provider: WESTLEY Lan)1731 (Given - Provider: Naty Varner RN) 0512 (Given - Provider: Lincoln Paez RN)184 (Given - Provider: Tammy Sena RN) 0559 (Given - Provider: Gladys Mendoza RN)174 (Given - Provider: Monica Hull RN) lacosamide (VIMPAT) 200 mg/20 mL injection 200 mg (COMPLETED) 200 mg, IV, ONE TIME ONLY, 1 dose, On Sat11/27/23 at 0845, Routine 0934 (Given - Provider: Concepcion Sahu RN) lacosamide (VIMPAT) tablet 200 mg 200 mg, Oral, TWO TIMES DAILY, First dose on Sat11/14/23 at 0900, Until Discontinued, Routine, Previous Med: lacosamide (VIMPAT) 100 mg tablet - Orig Sig - Take 200 mg by mouth 2 times daily . 06 (Given - Provider: WESTLEY Lan)173 (Given - Provider: Naty Varner RN) 0500 (Not Given - Provider: Lincoln Paez RN - Reason: Clarify-Other (Comment) - Comment: pt swatted med out of RN's hand and refused to take)08 (Not Given - Provider: Concepcion Sahu RN - Reason: Other - See Comment - Comment: pt refusing to take)183 (Given - Provider: Tammy Sena RN) 0603 (Given - Provider: Gladys Mendoza RN)184 (Given - Provider: Monica Hull RN) lamoTRIgine (LaMICtal) tablet 150 mg 150 mg, Oral, DAILY AFTER LUNCH, First dose on Sat11/14/23 at 1300, Until Discontinued, Routine, Previous Med: lamoTRIgine (LaMICtal) 150 mg tablet - Orig Sig - Take 150 mg by mouth daily after lunch. 1234 (Given - Provider: Ethel Salazar, RN) 1320 (Given - Provider: Concepcion Sahu, RN) 1345 (Given - Provider: Monica Hull, MAURO) lamoTRIgine (LaMICtal) tablet 300 mg 300 mg, Oral, TWO TIMES DAILY, First dose on Sat11/14/23 at 0900, Until Discontinued, Routine, Previous Med: lamoTRIgine (LaMICtal) 150 mg tablet - Orig Sig - Take 300 mg by mouth 2 times daily. 0622 (Given - Provider: WESTLEY Lan)1732 (Given - Provider: Naty Varner, MAURO) 0512 (Given - Provider: Lincoln Paez RN)1836 (Given - Provider: Tammy Sena, MAURO) 0558 (Given - Provider: Gladys Mendoza RN)1742 (Given - Provider: Monica Hull, MAURO) naloxone (NARCAN) 0.4 mg/mL injection 0.1 mg 0.1 mg, IV, SEE ADMIN INSTRUCTIONS, Starting on Sat11/14/23 at 0122, Until Sat11/29/23 at 0006, Routine naproxen (NAPROSYN) tablet 250 mg 250 mg, Oral, TWO TIMES DAILY WITH MEALS, First dose on Sat11/24/23 at 1130, Until Discontinued, Routine 1101 (Given - Provider: Ethel Salazar, MAURO)1731 (Given - Provider: Naty Varner, MAURO) 1000 (Given - Provider: Concepcion Sahu, MAURO)1844 (Given - Provider: Tammy Sena, MAURO) 1120 (Given - Provider: Monica Hull, MAURO)1742 (Given - Provider: Monica Hull, MAURO) pantoprazole (PROTONIX) 40 mg in sodium chloride 0.9% 10 mL injection 40 mg, IV, DAILY, First dose on Sat11/21/23 at 0600, Until Discontinued, Routine, For vial+diluent: 10 mL NS is needed to reconstitute pantoprazole vial. For doses less than 40 mg Epic may default less than 10 mL NS. Pharmacist to change NS dispense amount to 10 mL., Indication: Gastroesophageal reflux disease (GERD) 0557 (Given - Provider: WESTLEY Lan) 0546 (Given - Provider: Lincoln Paez RN) 0559 (Given - Provider: Gladys Mendoza RN) propranoloL (INDERAL LA) SR 24 hour capsule 160 mg 160 mg, Oral, DAILY, First dose on Emily 11/14/23 at 0900, Until Discontinued, Routine, Previous Med: propranoloL (INDERAL LA) 160 mg Long Acting 24 hour capsule - Orig Sig - Take 160 mg by mouth daily. 0621 (Given - Provider: WESTLEY Lan) 1000 (Given - Provider: Concepcion Sahu RN) 0600 (Not Given - Provider: Gladys Mendoza RN - Reason: Other - See Comment - Comment: bp ) Zonisamide (ZONEGRAN) capsule 400 mg 400 mg, Oral, TWO TIMES DAILY, First dose on Emily 11/14/23 at 0900, Until Discontinued, Routine, Previous Med: Zonisamide (ZONEGRAN) 100 mg capsule - Orig Sig - Take 400 mg by mouth 2 times daily. 0621 (Given - Provider: WESTLEY Lan)1733 (Given - Provider: Naty Varner RN) 1000 (Given - Provider: Concepcion Sahu, MAURO)1842 (Given - Provider: Tammy Sena RN) 0559 (Given - Provider: Gladys Mendoza RN)1741 (Given - Provider: Monica Hull RN) PRN Medication Order 11/26/2023 11/27/2023 11/28/2023 acetaminophen (TYLENOL) 325 mg/10.15 mL oral solution 650 mg 650 mg, Oral, EVERY 6 HOURS PRN, Starting on Emily 11/14/23 at 1650, Until Sat11/29/23 at 0006, Pain, Mild, Pain, Mild / Temperature, fever, Routine 2147 (Given - Provider: Lincoln Paez RN) 1326 (Refused - Provider: Concepcion Sahu RN) aluminum - magnesium - simethicone (MYLANTA) 200-200-20 mg/5 mL oral suspension 30 mL 30 mL, Oral, EVERY 2 HOURS PRN, Starting on Emily 11/14/23 at 0122, Until Sat11/29/23 at 0006, Indigestion, Routine bisacodyL (DULCOLAX) delayed release tablet 10 mg 10 mg, Oral, DAILY PRN, Starting on Sat11/14/23 at 0121, Until Sat11/29/23 at 0006, Constipation, Routine, Previous Med: bisacodyl (DULCOLAX) 5 mg Delayed Release tablet - Orig Sig - Take 10 mg by mouth 1 time daily as needed for Constipation. 1719 (Not Given - Provider: Monica Hull RN - Reason: Other - See Comment) bisacodyL (DULCOLAX) rectal suppository 10 mg 10 mg, Rectal, DAILY PRN, Starting on Sat11/20/23 at 1510, Until Sat11/29/23 at 0006, Constipation, Routine diphenhydrAMINE (BENADRYL) tablet 25 mg 25 mg, Oral, EVERY 6 HOURS PRN, Starting on Sat11/14/23 at 0121, Until Sat11/29/23 at 0006, Allergies, Itching, Routine, Previous Med: diphenhydrAMINE (Banophen) 25 mg capsule - Orig Sig - Take 25 mg by mouth every 6 hours as needed for Allergies or Itching. hydrOXYzine HCL (ATARAX) tablet 25 mg 25 mg, Oral, THREE TIMES DAILY PRN, Starting on Sat11/14/23 at 0121, Until Sat11/29/23 at 0006, Itching, Routine, Previous Med: hydrOXYzine HCL (ATARAX) 25 mg tablet - Orig Sig - Take 25 mg by mouth 3 times daily as needed for Itching. 1100 (Given - Provider: Ethel Salazar RN) LORazepam (ATIVAN) 2 mg/mL injection 1 mg (CANCELED) 1 mg, IV, EVERY 6 HOURS PRN, Starting on Sat11/14/23 at 1144, Until Sat11/27/23 at 0737, Seizures, Routine 1806 (Given - Provider: Naty Varner RN) 0143 (Given - Provider: Lincoln Paez RN) magnesium hydroxide (MILK OF MAGNESIA) oral suspension 30 mL 30 mL, Oral, DAILY PRN, Starting on Sat11/14/23 at 0121, Until Sat11/29/23 at 0006, Constipation, Routine, Previous Med: magnesium hydroxide (MILK OF MAGNESIA) 400 mg/5 mL suspension - Orig Sig - Take 30 mL by mouth 1 time daily as needed for Constipation. menthol (HALLS COUGH DROP) lozenge 5.8 mg 5.8 mg (1 Lozenge), Mouth/Throat, EVERY 2 HOURS PRN, Starting on 11/19/23 at 1611, Until Sat11/29/23 at 0006, Sore Throat, Routine ondansetron (ZOFRAN) 4 mg/2 mL injection 4 mg 4 mg, IV, EVERY 6 HOURS PRN, Starting on Emily 11/14/23 at 1305, Until Sat11/29/23 at 0006, Nausea/Emesis, Routine prochlorperazine (COMPAZINE) injection 5 mg 5 mg, IV, EVERY 6 HOURS PRN, Starting on Emily 11/14/23 at 1546, Until Sat11/29/23 at 0006, Nausea/Emesis, Routine documented in this encounter Additional Health Concerns Infection Onset Date Last Indicated Resolved Time R/O Respiratory 11/13/2023 11/13/2023 11/13/2023 7 :57 PM CDT Respiratory Syncytial Virus (RSV) 11/13/2023 024 12/11/2023 1:16 AM CDT documented as of this encounter Care Teams K 12 Principal Relationship Specialty Start Date End Date Gulshan Mena DO [address] [place] [address] PCP - General 01/26/15 documented as of this encounter
--- OUTSIDE RECORDS SUMMARY | 2024-02-12 05:13 | XMS_ITS | Encounter Summary ---
Author Organization [employer] Address [address] [place] [address] Care Team Providers Care It Director Name Role Phone Gulshan Mena DO Primary Care Provider [phone] Encounter Details Date Type Department Care Team (Late st Contact Info) Description 07/16/2023 External Device Data [facility] ABSTRACTION Provider, Abstract [...] emotionally and/or physically? Patient unable to answer 06/13/2023 Sex and Gender Information Value Date Recorded Sex Assigned at Not on file Gender Identity Not on file Sexual Orientation Not on file documented as of this encounter Plan of Treatment Not on file documented as of this encounter Visit Diagnoses Not on filedocumented in this encounter Care Teams It Director Relationship Specialty Start Date End Date Gulshan Mena DO [facility] [address] [place] [id number] PCP - General 01/26/15 documented as of this encounter
--- OUTSIDE RECORDS SUMMARY | 2024-02-12 05:13 | XMS_ITS | Encounter Summary ---
[facility] Address [address] [place] [address] Care Team Providers Care Director Child Abuse Therapy Name Role Phone Gulshan Mena DO Primary Care Provider [phone] Reason for Visit * Reason Comments Fever Pt comes from skilled nursing after staff observer pt was breathing hard and lethargic. Pt is non-verbal at baseline. * Auth/Cert (Routine) Specialty Diagnoses / Procedures Referred By Paulinoac t Referred To Contact Emergency Medicine [facility] Emergency Dept [address] [place] [address] Referral ID Status Reason Start Date Expiration Date Visits Re quested Visits Authorized [id number] 1 1 Encounter Details Date Type Department Care Team (Late st Contact Info) Description 11/16/2023 12:48 PM CDT - 11/16/2023 3:14 PM CDT Surgery [facility] Operating Room [address] [place] [address] Henok Artis MD [address] [facility] [address] [address] CHOLECYSTECTOMY LAPAROSCOPIC Surgery Details Date/Time Status Location OR Service Patient Class Case Class Case Type Trauma Case? 11/16/2023 12:48 PM Posted [facility] OR [facility] OR General Surgery Inpatient Urgent No Panel 1 Procedure LRB Anes Op Region Wound Class Comments CHOLECYSTECTOMY LAPAROSCOPIC N/A General Abdomen C lean-I CONVERTED TO OPEN CHOLECYSTOMY N/A General Abdomen Clean-I Incision @ 1717 Surgeon Surgeon Role Service Panel Jewels Hermosillo MD General Surgery 1 Henok Artis MD Primary General Surger y 1 documented in this encounter Social History Tobacco [...] Sign Reading Time Taken Comments Blood Pressure 133/70 11/16/2023 2:00 PM CDT Pulse 118 11/16/2023 2:00 PM CDT Temperature 37.3 ??C (99.2 ??F) 11/16/2023 2:00 PM CD T Respiratory Rate 18 11/16/2023 2:00 PM CDT Oxygen Saturation 98% 11/16/2023 2:00 PM CDT Inhaled Oxygen Concentration - - [...] Granados Beebe 38 y.o. male 1985 CSN: [id number] Date of Admission: 11/13/2023 Date of Discharge: 11/28/2023 Discharging Physician: Aundrea Gutierrez MD LOS: 15 days PCP: Gulshan Mena DO Activity: activity [...] Refills: 0 Valtoco 10 mg/spray (0.1 mL) Vida, Non-Aerosol Administer 10 mg in each nostril [...] Your Medications These medications were sent to [address] [address] Hours: Open Daily 8 am - 12 [...] Moving all 4 extremities. HPI: As per Dr.Paula HPI, atient is a 38 y.o. male with PMHx of Intellectual disability who presents to the emergency room with increased work of breathing. The patient is nonverbal so history is obtained from the caregiver at the bedside. The patient lives in a mcfp. He yesterday was noted to be a [...] seizure disorder-follows up with neurologist at [facility].S/p VNS in place. No need for device [...] the original note were not included. Curt Benoitb 38 y.o. male 1985 CSN: [id number] Date of Admission: 11/13/2023 Date of Discharge: [...] Refills: 0 Valtoco 10 mg/spray (0.1 mL) Vida, Non-Aerosol Administer 10 mg in each nostril [...] Your Medications These medications were sent to [address] [facility] [address] Hours: Open Daily 8 am - 12 [...] the bedside. The patient lives in a mcfp. He yesterday was noted to be a [...] seizure disorder-follows up with neurologist at [facility].S/p VNS in place. No need for device check per prior hospitalist discussion with device rep. Concern for breakthrough seizure on 11/23 with postictal.MET was called. CT head no acute process and cEEG no seizures. Refused to take meds intermittently for few days. Now compliance w meds.Continue clobazam, Vimpat ,zonisamide and Lamictal. 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 Curt Benoitb 38 y.o. male 1985 CSN: [id number] Date of Admission: 11/13/2023 Date of Discharge: [...] Refills: 0 Valtoco 10 mg/spray (0.1 mL) Vida, Non-Aerosol Administer 10 mg in each nostril [...] Your Medications These medications were sent to [place] [address] [facility] [address] Hours: Open Daily 8 am - 12 [...] the bedside. The patient lives in a mcfp. He yesterday was noted to be a [...] seizure disorder-follows up with neurologist at [facility].S/p VNS in place. No need for device check per prior hospitalist discussion with device rep. Concern for breakthrough seizure on 11/23 with postictal.MET was called. CT head no acute process and cEEG no seizures. Refused to take meds intermittently for few days. Now compliance w meds.Continue clobazam, Vimpat ,zonisamide and Lamictal. 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 diazePAM (Valtoco) 10 mg/spray (0.1 mL) Vida, Non-Aerosol Administer 10 mg in each nostril [...] 50,000 Units by mouth every 7 days Mikey. multivitamin (DAILY-KALYN) tablet Take 1 Tab by [...] Discharge To Intermediate care facility/assisted living;Other (Comment) (skilled nursing) Patient/Family Communications Confirmed Discharge Plan Discharge Plan Agreed Upon Family member Has discharge transport been arranged? Yes Transportation Provider [facility] Transportation Provider Phone Final Discharge Arrangements Final Discharge Disposition Intermedia (skilled nursing) Care Facility Name [facility] Contact Name [facility] Services Arranged For Discharge Home health Agency Name [facility] Service Agency Contact Name [facility] Agency Date Of Pick-Up 11/28/23 Time Of Pick-Up 2100 Copy of this transfer form will be sent with patient along with: Demographic sheet;AVS;Pertinent Medical Records All discharge arrangements completed. Comment: [employer] shipping supervisor Sally and pt's mother notified of EMS transport time, all amenable. Transportation upon Discharge form completed. Patient requires supervision for transport: YES Options for safe transport discussed with care team and presented to patient/ family. Mother contacted and aware of discharge. If patient going LTAC, REHAB, SNF, INTERMEDIATE CARE FACILITY: Attending MD is Gulshan Mena DO, who can be reached at [phone]. * Tammy Sena RN - 11/27/2023 11:30 PM CDT Shift Summary Assumed care around 1500. Alert. Non-verbal. Appears comfortable. RA. No new UO noted around 2030; bladder scan showed 440 ml. [facility] notified. Order for straight cath received. Prior to performing straight cath, pt was incontinent of large amount of urine. Repeat bladder scan showed 7 ml. Straight cath was not performed. Abdominal incision WDL. Fall and seizure precautions. Report given to and care assumed by MAURO Graham around 2330. * Odalys Brantley NP - 11/27/2023 8:43 PM CDT [facility] 11/27/23 8:44 PM [...] were not included. CLINICAL DIETITIAN PROGRESS NOTE [facility] Follow Up Nutrition Assessment PT with improved [...] needed. Samantha Cartagena RD LD Cell phone [phone] Office phone: [phone] Secure chat * Aundrea Gutierrez MD - 11/25/2023 10:56 AM CDT [facility] Adult Hospitalist Progress Note Admit Date: 11/13/2023 [...] seizure disorder-follows up with neurologist at [facility].S/p VNS in place. No need for device [...] Aundrea Gutierrez MD, Hospitalist Please contact via [employer] Secure Chat from 7am-7pm After hours please place [facility] * Chely Mckinley, [facility] - 11/24/2023 6:24 PM CDT Images from the original note were not included. RAPID RESPONSE TEAM ADULT CRITICAL CARE MEDICINE DATE: 11/24/2023 NAME: Curt Darwin Beebe : 1985 CSN: [id number] Subjective: Reason for rapid response team activation: [...] been reviewed today as documented in the HP on admission. Medications, labs, pertinent imaging studies, notes, consults (if present) and orders from current encounter have been reviewed. Most recent vital signs: Patient Vitals for the past 2 hrs: Temp 11/24/23 1800 98.8 ??F (37.1 ??C) Intake/Output Summary (Last 24 hours) at 11/24/20231927 Last data filed at 11/24/2023 1630 Gross [...] soft, non-tender, non-distended. Normal bowel sounds. Skin: [place], warm/dry. Extremities: Peripheral pulses 2+ with no [...] 60 minutes. E/M visit level III Chely Mckinely APRN-SERENE [facility] Adult Critical Care Medicine [facility] * Kanika Feliz GN - 11/24/2023 5:25 PM CDT Neuro: Nonverbal, Utilized FLACC; Seizure Precaution in place Resp: RA CV: HR: 80-90 SBP: 90-120. SQ Lovenox GI/: Regular Diet Skin: Abdominal Incision Helen Met Call @ 1817: Caregiver at the [...] to send UA specimen. * Lyndon Gupta, - 11/24/2023 10:52 AM CDT [facility] Adult Hospitalist Progress Note Admit Date: 11/13/2023 [...] has been following with neurology at [facility]. Patient has a history ofhaving frequent breakthrough [...] Discharge Recommendation: Other (comment in note) (11/22/23 0907) OT POC PT Current Discharge Recommendation: Post acute care;Will tolerate 3 hours of therapy (11/22/23 0991) Chavez catheter:absent Current Code Status -Full Code [...] Lyndon Gupta, DO Please contact me via [employer] Secure Chat from 7am-7pm After hours please place E-ticket to [facility] This documentation was written in part with the use of Dragon Medical One speech to text software. Effort has been done to assure accuracy of composing machine operator. Any errors in spelling, syntax, or meaningshould [...] Gupta DO - 11/23/2023 12:27 PM CDT [facility] Adult Hospitalist Progress Note Admit Date: 11/13/2023 [...] Patient has beenfollowing with neurology at [facility]. Patient has a history of having frequent [...] Discharge Recommendation: Other (comment in note) (11/22/23 9326) OT POC PT Current Discharge Recommendation: Post acute care;Will tolerate 3 hours of therapy (11/22/23 8697) Chavez catheter:absent Current Code Status -Full Code [...] Lyndon Gupta DO Please contact me via [employer] Secure Chat from 7am-7pm After hours please place E-ticket to [facility] This documentation was written in part with the use of [employer] speech to text software. Effort has been done to assure accuracy of composing machine operator. Any errors in spelling, syntax, or meaningshould [...] Tachypnea CV: SR 80 SBP 100-110 Pulses 2/1 Afebrile SQ Lovenox GIGU: Regular Purewick w/AUOP Skin: Abd incision helen CDI. No new skin changes. Q2 turns Lines: 20 L arm * Jessica Angel MD - 11/22/2023 1:22 PM CDT [facility] Adult Hospitalist Progress Note Admit Date: 11/13/2023 [...] all his morning meds today also 11/21. ACTIVATED SLUDGE ATTENDANT medications include Vimpat, Lamictal and Zonegran. Continue Vimpat IV. Hold iv Keppra for now. Hx of frequent breakthrough seizures. Follows with neurology at [facility] Dr. Noble. No need for device check [...] Current Planned Disposition - Dispo: return to mcfp in 1-2 days. Subjective Previous history of [...] Jessica Angel MD Please contact me via [employer] Secure Chat from 7am-7pm After hours please place E-ticket to [facility] * Jessica Angel MD - 11/21/2023 11:24 AM CDT [facility] Adult Hospitalist Progress Note Admit Date: 11/13/2023 [...] Pt took all his morning meds today. ACTIVATED SLUDGE ATTENDANT medications include Vimpat, Lamictal and Zonegran. Continue Vimpat IV. Hold iv Keppra for now. Hx of frequent breakthrough seizures. This was prior discussed with neurology by prior hospitalist. Follows with neurology at [facility] Dr. Noble. No need for device check [...] Current Planned Disposition - Dispo: return to mcfp in 1-2 days. Subjective Previous history of [...] Jessica Angel MD Please contact me via [employer] Secure Chat from 7am-7pm After hours please place [facility] to [facility] * Glenna Gray GN - 11/20/2023 7:09 PM CDT End of Shift Note: Patient refused PO medications ~ 1300 (buspirone 10mg, lacosamide 200mg, and lamotrigine 150mg). Provider notified. Neuro: Patient nonverbal. Flacc scale used to assess pain, toradol given per APR. Resp: RA. CV: SR-ST 90-100s. SBP 100-130s. 2/2 pulses. GI: Suppository given per APR. BM this shift. Decreased oral intake. : Purewick in place. Skin: No acute skin changes this shift. Procedures/Labs/Diagnostic Tests: ABG collected this shift. * Cate Cartagena RD - 11/20/2023 1:18 PM CDT Images from the original note were not included. CLINICAL DIETITIAN PROGRESS NOTE [facility] Nutrition Risk Screen for LOS with decreased [...] 0.4 No results found for: HGBA1C , [id number] Pert Meds:noted Skin: See Flowsheet for more wound documentation Star Score: 13 (11/20/23924) Anthropometrics: Height: 5' 7 (170.2 cm) (11/14/23311) Weight: 76.1 kg (167 lb 12.8 oz) (11/14/23311) Body mass index is 26.28 kg/m??. [place] body weight: 66.1 kg (145 lb 11.6 [...] nutrient requirements Nutrition Needs: 25-30 kcal/ kg= 8346-3079 kcal Pro:1.1-1.1 g/kg= 85-91 g Normal fluids: 1 ml/kcal I:Nutrition Intervention: DIET GENERAL Effective Now DIET SUPPLEMENT GEN ADULT TID; Complete Oral Supplement, Goal: improved PO intake Time spent: 15 minutes M/E: 1. Continue to monitor: Anthropometrics, Digestive, Skin, and Biochemical data 2. Follow up every 4-7 days and as needed. Samantha Cartagena RD LD Cell phone [phone] Office phone: [phone] Secure chat * Rachael Valadez GN - [...] Angel MD - 11/20/2023 7:26 AM CDT [facility] Adult Hospitalist Progress Note Admit Date: 11/13/2023 [...] Chronic/Stable/Resolved Problems: Seizure disorder, VNS-refuses medications intermittently. ACTIVATED SLUDGE ATTENDANT medications include Vimpat, Lamictal and Zonegran. Continue Vimpat IV. iv Keppra added this admission until reliably taking meds, as there is a history of frequent breakthrough seizures. This was prior discussed with neurology by prior colettetalist. Follows with neurology at [facility] Dr. Noble. No need for device check [...] therapy recs- ?SNF prior to returning to mcfp. Subjective Previous history of present illness and review of systems have been reviewed today as documented inthe H&P on 11/13/2023; medications, labs, studies, notes, orders and consults have been reviewed. I have reviewed the notes from admission. Overnight no acute overnight events. Patient not answering the questions. Not at his baseline per mother and per staff at the m[facility]. RN called for bedside plan of care [...] Jessica Angel MD Please contact me via [employer] Secure Chat from 7am-7pm After hours please place E-ticket to [facility] * Glenna Gray GN - 11/19/2023 8:08 PM CDT End of Shift Note: Patient refused PO medications ~ 1930pm (lamotrigine 300mg, zonisamide 400mg, buspirone 10mg). shift engineer RN notified to see if patient will [...] (37.2 ??C) Axillary 84 26 95 % 11/18/232018 -- 99 ??F (37.2 ??C) Axillary 88 30 96 % 11/18/231999 (!) 149/92 -- -- -- 27 96 [...] Follow-up after discharge: Evelio Miller MD, FACP, [facility] Infectious Diseases Office Exchange: [phone] * Ronaldo Mendoza, - 11/19/2023 10:46 AM CDT TACS Attending: [...] team. For urgent needs: TACS Consult Pager: [phone] TACS Trauma Emergency: [phone] (STAB) [facility] General Surgery Emergency: [phone] (GALL) Roanldo Mendoza DO, MPH Trauma & Acute Care Surgery Attending * Pau Melendrez DO - 11/19/2023 10:35 AM CDT [facility] Adult Hospitalist Progress Note Admit Date: 11/13/2023 [...] hospitalist. Follows with neurology at [facility] Dr. Noble. No need for device check [...] Current Discharge Recommendation: Post acute care (11/18/23 9104) OT POC PT Current Discharge Recommendation: Post acute care;Will tolerate 3 hours of therapy (11/17/23 1439) Chavez catheter: absent Current Code Status -Full Code Plan discussed with patient, questions answered. Estimated Discharge Day: 11/21/2023 Current Planned Disposition - Dispo: pending therapy recs- ?SNF prior to returning to mcfp. Subjective Previous history of present illness and [...] Pau Melendrez DO Please contact me via [employer] Secure Chat from 7am-7pm After hours please place [facility]-ticket to [facility] * Yanci De La Rosa RN - 11/19/2023 7:42 AM CDT 0700 [...] 11/18/2023 NAME: Curt Beebe : 1985 CSN: [id number] [facility] Surgery Progress Note Last 24 hours: - [...] Disability # Malnutrition?: No (if yes, add LEXACMSulaiman dot phrase here) Nutritional status: Current Diet and/or Nutritional Supplementation ordered: DIET CLEAR LIQUID Jim Deras, FIELD CASE MANAGER, 11/18/2023 2:37 PM For routine needs from 7am-7pm, contact the [facility] team signed onto the patient's care team via secure chat. For urgent needs: [facility] Pager: [phone] [facility] Trauma Emergency Phone: (1STAB) [facility] General Emergency Phone: (1GALL) Admit Date: 11/13/2023 [...] Patient presents with Fever Pt comes from skilled nursing after staff observer pt was breathing hard and lethargic. Pt is non-verbalat baseline. HPI: Curt Beebe is a 38 y.o. male with a PMH of autisum, ADHD, static encephalopathy, nonverbal at baseline who is presenting with fevers and leukocytosis. Caregiver said patient had been acting differently the last few days and was not eating today. Lives jose [facility]. Nonverbal at baseline. S urgery consulted when CT remarkable for cholecystitis Scheduled Medications: cefTRIAXone, 2,000 mg, every 24 hours (daily) levETIRAcetam, 1,000 mg, BID cloNIDine, 1 Patch, every 7 days lamoTRIgine, 300 mg, BID propranoloL, 160 mg, daily docusate sodium, 100 mg, BID [Held by Provider] lacosamide, 200 mg, BID busPIRone, 10 mg, TID ergocalciferol, 50,000 Units, every 7 days multivitamin with qpgopole-euanddxf-gcxhag, 1 Tablet, daily [Held by Provider] cloNIDine [...] Net -2503 ml Output by Drain (mL) 11/16/23699 - 11/16/23 18511/16/231899 - 11/17/23 0659 11/17/23699 - 11/17/23 18511/17/231899 - 11/18/23 0659 11/18/23699 - 11/18/23 1437 Drain/Device Site 11/16/23 1752 #1 Right: abdomen channel 80 50 20 Small amount stool (11/15/23 1700) Physical Exam: Gen Alert, in no distress, sitting up in bed, no family at bs Neuro Eyes open, nonverbal, YOUGN HEENT Normal Heart regular rate Lungs normal [...] input(s): PH , PHARTERIAL , PCO2 , EUX7RHW , PO2 , PO2ART , HCO3 , SBP6YZF , BASEEXCESS , SO2 , PUNCSITE in the last 72 hours. Most recent Accucheck results: Lab Results Component Value Date GLUCPOC 106 (H) 06/13/2023 GLUCPOC 105 (H) 06/06/2023 GLUCPOC 89 04/19/2023 GLUCPOC 159 (H) 02/14/2021 GLUCPOC 148 (H) 02/14/2021 I personally reviewed all images. Jim Deras NP Associated attestation - Ronaldo Mendoza DO - 11/18/2023 6:10 PM CDT S/E at bedside, agree with FIELD CASE MANAGER note. Postop, incision c/d/I. Some vomiting earlier [...] per 1'. For routine needs, contact the [facility] team signed onto the patient's care team. For urgent needs: [facility] Consult Pager: [phone] [facility] Trauma Emergency: [phone] (STAB) [facility] General Surgery Emergency: [phone] (GALL) Ronaldo Mendoza DO, MPH Trauma & [...] Nguyen MD - 11/18/2023 8:49 AM CDT [facility] Adult Hospitalist Progress Note Admit Date: 11/13/2023 [...] spoke with pt's Neuro at [facility] Dr Noble who indicated that no follow up needed to verify VNS function post op. I spoke with the device company [employer] who indicatedno specific interrogation is conducted by them and they advise to follow up with pt's Neurologist to ensure device function Nutrition: Current Diet and/or Nutritional Supplementation ordered: DIET CLEAR LIQUID DVT Prophylaxis - Enoxaparin Chavez catheter:absent Lines: Peripheral IV PT/OT:yes Current Code Status -Full Code Plan discussed with patient,Mom Current Planned Disposition - TBD, lives Care Home ?if will need SNF short term >35 minutes spent in patient care today > 50 %time spent in coordinating care communicating with nursing staff, social work. Jim Nguyen MD * Mark Arevalo GN - 11/18/2023 6:50 AM CDT End of [...] -- -- (!) 102 29 98 % 11/16/234 127/70 98.3 ??F (36.8 ??C) Axillary 94 24 92 % 11/16/230 -- -- -- 95 24 100 % 11/16/235 123/75 98.9 ??F (37.2 ??C) Axillary (!) 112 27 92 % 11/16/232158 138/77 98.8 ??F (37.1 ??C) Oral (!) 103 21 97 % 11/16/232129 (!) 143/72 98.1 ??F (36.7 ??C) Temporal [...] follow Follow-up after discharge: Evelio Miller MD, [facility], [facility] Infectious Diseases Office Exchange: [phone] * Henok Artis MD - 11/17/2023 12:38 PM CDT Images from the original note were not included. DATE: 11/17/2023 NAME: Curt Beebe : 1985 CSN: [id number] [facility] General Surgery Progress Note Last 24 [...] For routine needs from 7am-7pm, contact the [facility] team signed onto the patient's care team via secure chat. For urgent needs: [facility] Pager: [phone] [facility] Trauma Emergency Phone: (1STAB) [facility] General Emergency Phone: (1GALL) Admit Date: 11/13/2023 [...] Patient presents with Fever Pt comes from skilled nursing after staff observer pt was breathing hard and lethargic. Pt is non-verbalat baseline. HPI: Curt Beebe is a 38 y.o. male with a PMH of autisum, ADHD, static encephalopathy, nonverbal at baseline who is presenting with fevers and leukocytosis. Caregiver said patient had been acting differently the last few days and was not eating today. Lives [facility]. Nonverbal at baseline. S urgery consulted when CT remarkable for cholecystitis Scheduled Medications: cefTRIAXone, 2,000 mg, every 24 hours (daily) levETIRAcetam, 1,000 mg, BID cloNIDine, 1 Patch, every 7 days lamoTRIgine, 300 mg, BID propranoloL, 160 mg, daily docusate sodium, 100 mg, BID [Held by Provider] lacosamide, 200 mg, BID busPIRone, 10 mg, TID ergocalciferol, 50,000 Units, every 7 days multivitamin with lzaqqrlu-yphlggsg-mccffe, 1 Tablet, daily [Held by Provider] cloNIDine [...] Output by Drain (mL) 11/15/23699 - 11/15/23 1859 11/15/23 1900 - 11/16/23 0659 11/16/23699 - 11/16/23 1859 11/16/23 190 - 11/17/23 0659 11/17/23699 - 11/17/23 1238 Drain/Device Site 11/16/23 1752 [...] Most recent CBC results: Recent Labs 11/16/23 0353 11/16/23 2359 11/17/23 0455 WBC 9.3 7.2 8.3 HGB 11.4* 8.4* 8.7* HCT 33.4* 24.2* 25.3* PLT 249 205 243 Most recent BMP results: Recent Labs 11/15/23 0317 11/16/23 0353 11/17/23 0503 NA 139 142 141 K 3.7 3.5 3.8 CL 107 110* 111* CO2 20* 21* 22 BUN 16 11 7 CREAT 0.79 0.65* 0.62* GLUCOSE 110* 122* 167* CA 8.9 8.8 7.9* MG -- -- 1.8 PO4 -- -- 2.3* Most recent LFT results: Recent Labs 11/15/23 0317 11/16/23 0353 11/17/23 0503 TOTALPROTEIN 7.0 6.7 5.5* [...] Nguyen MD - 11/17/2023 11:45 AM CDT [facility] Adult Hospitalist Progress Note Admit Date: 11/13/2023 [...] and Flush Protocol- CT and MRI Procedures [facility] Approved by: [facility]-Medical Executive Committee Approval Date: 08/01/2023 ORDERS ARE ENTERED ???PER PROTOCOL?? Enter the protocol in the patient's electronic health record using [employer]: .imagingctmriprotocol Communication Orders: For ordered imaging procedures [...] is oral. May use nasoenteric tube ifneeded. Dickson to 3 months Administer up to 90mL [...] 300 mg/ml oral solution age appropriate guidelines Dickson Administer 45mL of diluted Iopamidol oral solution, [...] (Omnipaque) 240mg/ml oral solution age appropriate guidelines Dickson Administer 45mL of diluted Iohexol oral solution, [...] than 55kg and confirm dose with radiologist. to 15 years old Administer 2.2mL/kg (to [...] number of NSF cases: Gadodiamide (Omniscan?? - Jodange) Gadopentetate dimeglumine (Magnevist?? - [employer]) Gadoversetamide (OptiMARK?? - Guerbet) Group II: Agents associated with few, if any, unconfounded cases of NSF: Gadobenate dimeglumine (MultiHance?? - [employer]) Gadobutrol (Gadavist?? - [employer]; Gadovist in many countries) Gadoteric acid (Dotarem?? - Guerbet, Clariscan - Jodange) Gadoteridol (ProHance?? - [employer]) Group III: Agents for which data remains limited regarding NSF risk, but for which few, if any unconfounded cases of NSF have been reported: Gadoxetate disodium (Eovist - [employer]; Primovist in many countries) * Enedelia Strong [...] 11/16/2023 NAME: Curt Beebe : 1985 CSN: [id number] [facility] General Surgery Progress Note Last 24 [...] For routine needs from 7am-7pm, contact the [facility] team signed onto the patient's care team via secure chat. For urgent needs: [facility] Pager: [phone] [facility] Trauma Emergency Phone: (1STAB) [facility] General Emergency Phone: (1GALL) Admit Date: 11/13/2023 LOS: 0 days Active Hospital Problems Diagnosis Leukocytosis (leucocytosis) Febrile RSV infection Cholecystitis RSV (acute bronchiolitis due to respiratory syncytial virus) Seizure disorder, complex partial, with intractable epilepsy Development delay Resolved Hospital Problems No resolved problems to display. SUBJECTIVE: Chief Complaint Patient presents with Fever Pt comes from skilled nursing after staff observer pt was breathing hard and lethargic. Pt is non-verbalat baseline. HPI: Curt Beebe is a 38 y.o. male with a PMH of autisum, ADHD, static encephalopathy, nonverbal at baseline who is presenting with fevers and leukocytosis. Caregiver said patient had been acting differently the last few days and was not eating today. Lives jose m[facility]. Nonverbal at baseline. S louise consulted when CT remarkable for cholecystitis Scheduled Medications: cefTRIAXone, 2,000 mg, every 24 hours (daily) levETIRAcetam, 1,000 mg, BID cloNIDine, 1 Patch, every 7 days lamoTRIgine, 300 mg, BID propranoloL, 160 mg, daily docusate sodium, 100 mg, BID [Held by Provider] lacosamide, 200 mg, BID busPIRone, 10 mg, TID ergocalciferol, 50,000 Units, every 7 days multivitamin with gnktgovd-gqbbgthk-fodsdz, 1 Tablet, daily [Held by Provider] cloNIDine [...] - 11/15/23 0659 11/15/23 0700 - 11/15/23 1859 11/15/23 1900 - 11/16/23 [...] Labs/Imaging: Most recent CBC results: Recent Labs 11/14/2334311/15/2331611/16/23352 WBC 16.7* 9.9* 9.3 HGB 13.0* 11.8* 11.4* HCT 38.8* 34.6* 33.4* PLT 234 228 249 Most recent BMP results: Recent Labs 11/14/2334311/15/2331611/16/23 035 NA 133* 139 142 K 3.7 3.7 3.5 CL 103 107 110* CO2 19* 20* 21* BUN 16 16 11 CREAT 0.64* 0.79 0.65* GLUCOSE 142* 110* 122* CA 8.8 8.9 8.8 Most recent LFT results: Recent Labs 11/13/23 1851 11/14/2334311/15/2331611/16/23 035 TOTALPROTEIN 8.6 7.3 7.0 6.7 ALBUMIN 4.4 [...] Nguyen MD - 11/16/2023 7:00 AM CDT [facility] Adult Hospitalist Progress Note Admit Date: 11/13/2023 [...] Gan RN - 11/16/2023 12:08 AM CDT 2200: Patient received from PACU, post surgery, in [...] 11/15/2023 NAME: Curt Beebe : 1985 CSN: [id number] [facility] General Surgery Progress Note Last 24 [...] record, Referring and communication with other health zoo caretaker (not separately reported), and Independently interpreting results and communicating results to the patient/family/caregiver (not separately reported). ANGIE Mcbride, 11/15/2023 10:07 AM For routine needs from 7am-7pm, contact the [facility] team signed onto the patient's care team via secure chat. For urgent needs: [facility] Pager: [phone] [facility] Trauma Emergency Phone: (1STAB) [facility] General Emergency Phone: (1GALL) Admit Date: 11/13/2023 LOS: 0 days Active Hospital Problems Diagnosis Leukocytosis (leucocytosis) Febrile RSV infection Cholecystitis RSV (acute bronchiolitis due to respiratory syncytial virus) Seizure disorder, complex partial, with intractable epilepsy Development delay Resolved Hospital Problems No resolved problems to display. SUBJECTIVE: Chief Complaint Patient presents with Fever Pt comes from skilled nursing after staff observer pt was breathing hard and lethargic. Pt is non-verbalat baseline. HPI: Curt Beebe is a 38 y.o. male with a PMH of autisum, ADHD, static encephalopathy, nonverbal at baseline who is presenting with fevers and leukocytosis. Caregiver said patient had been acting differently the last few days and was not eating today. Lives jose [facility]. Nonverbal at baseline. S louise consulted when CT remarkable for cholecystitis Scheduled Medications: cefTRIAXone, 2,000 mg, every 24 hours (daily) lamoTRIgine, 300 mg, BID propranoloL, 160 mg, daily docusate sodium, 100 mg, BID [Held by Provider] lacosamide, 200 mg, BID busPIRone, 10 mg, TID ergocalciferol, 50,000 Units, every 7 days multivitamin with phncjfyy-iilzyhyn-hdnrbq, 1 Tablet, daily cloNIDine HCL, 0.3 mg, [...] ending 11/15/23 1007 Output by Drain (mL) 11/13/23699 - 11/13/23185811/13/231899 - 11/14/23 0659 11/14/23699 - 11/14/23 18511/14/231899 - 11/15/23 0659 11/15/23699 - 11/15/23 1007 Patient has no LDAs [...] General Surgery, & Surgical Critical Care P: [phone] * Jim Nguyen MD - 11/15/2023 8:22 AM CDT [facility] Adult Hospitalist Progress Note Admit Date: 11/13/2023 [...] 11/14/2023 NAME: Curt Beebe : 1985 CSN: [id number] [facility] General Surgery Progress Note Last 24 [...] record, Referring and communication with other health zoo caretaker (not separately reported), and Independently interpreting results and communicating results to the patient/family/caregiver (not separately reported). Jewels Hermosillo MD, 11/14/2023 2:39 PM For routine needs from 7am-7pm, contact the [facility] team signed onto the patient's care team via secure chat. For urgent needs: [facility] Pager: [phone] [facility] Trauma Emergency Phone: (1STAB) [facility] General Emergency Phone: (1GALL) Admit Date: 11/13/2023 LOS: 0 days Active Hospital Problems Diagnosis Leukocytosis (leucocytosis) Febrile RSV infection Cholecystitis RSV (acute bronchiolitis due to respiratory syncytial virus) Seizure disorder, complex partial, with intractable epilepsy Development delay Resolved Hospital Problems No resolved problems to display. SUBJECTIVE: Chief Complaint Patient presents with Fever Pt comes from skilled nursing after staff observer pt was breathing hard and lethargic. Pt is non-verbalat baseline. HPI: Curt Beebe is a 38 y.o. male with a PMH of autisum, ADHD, static encephalopathy, nonverbal at baseline who is presenting with fevers and leukocytosis. Caregiver said patient had been acting differently the last few days and was not eating today. Lives jose [facility]. Nonverbal at baseline. S louise consulted when CT remarkable for cholecystitis Scheduled Medications: lamoTRIgine, 300 mg, BID propranoloL, 160 mg, daily docusate sodium, 100 mg, BID [Held by Provider] lacosamide, 200 mg, BID busPIRone, 10 mg, TID ergocalciferol, 50,000 Units, every 7 days multivitamin with pfszovdo-mmgujrgi-qtupuw, 1 Tablet, daily cloNIDine HCL, 0.3 mg, [...] Net 0 ml Output by Drain (mL) 11/12/23 07 - 11/12/23 18511/12/23 190 - 11/13/23 0659 11/13/23699 - 11/13/23 18511/13/23 1900 - 11/14/23 0659 11/14/23 0700 - 11/14/23 1439 Patient has no LDAs [...] Most recent CBC results: Recent Labs 11/13/23 18511/14/23 0344 WBC 19.9* 16.7* HGB 14.0 13.0* [...] input(s): PH , PHARTERIAL , PCO2 , QBE4VDH , PO2 , PO2ART , HCO3 , JHJ1ZRY , BASEEXCESS , SO2 , PUNCSITE in the last 72 hours. Most recent Accucheck results: Lab Results Component Value Date GLUCPOC 106 (H) 06/13/2023 GLUCPOC 105 (H) 06/06/2023 GLUCPOC 89 04/19/2023 GLUCPOC 159 (H) 02/14/2021 GLUCPOC 148 (H) 02/14/2021 I personally reviewed all images. Jewels Hermosillo MD * Jim Nguyen MD - 11/14/2023 9:54 AM CDT [facility] Adult Hospitalist Progress Note Admit Date: 11/13/2023 [...] Mitchell MD - 11/13/2023 11:26 PM CDT [facility] Adult Hospitalist H&P Patient Name: Curt Beebe [...] the bedside. The patient lives in a mcfp. He yesterday was noted to be a [...] HX WISDOM TEETH EXTRACTION 2008 front teeth [place] INSJ/RPLCMT CRANIAL NEUROSTIM GENER 2/> ELTRDS Left 10/27/2013 VAGUS NERVE STIMULATOR PLACEMENT performed by Hieu Macias MD at [facility] OR [place] UNLISTED PROCEDURE DENTOALVEOLAR STRUCTURES N/A 10/20/2014 DENTAL REHABILITATION performed by Dereck Dunbar DDS at [facility] OR MAIN [place] UNLISTED PROCEDURE DENTOALVEOLAR STRUCTURES N/A 12/06/2016 DENTAL REHABILITATION performed by Dereck Dunbar DDS at [facility] OR MAIN Family History Problem Relation [...] PM diazePAM (Valtoco) 10 mg/spray (0.1 mL) Vida, Non-Aerosol Yes No Sig: Administer 10 mg [...] Yaima Mitchell MD Please contact me via [employer] Secure Chat from 7am-7pm After hours please place E-ticket to [facility] documented in this encounter Procedure Notes * Raleigh Kaplan MD - 11/26/2023 8:02 AM CDTAssociated Order(s): EEG 24 HOUR Video-EEG Report Patient Name: Curt Beebe [facility] Medical Record Number (MRN): [id number] Date of (): 1985 Start Time: 9:22 [...] dysfunction. Tomasa Kaplan MD Neurology * Elsa Emmanuel [facility] - 11/17/2023 6:46 AM CDT Images from the original note were not included. [facility] DCS Definity Protocol [facility] Approved by: [facility] - Medical Executive Committee Approval Date: 08/21/2023 [...] request Patient is technically difficult to image ([place] Society of Echocardiography guidelines recommend use when [...] of DEFINITY?? on ECMO patients. The ECMO staying machine operator must bepresent when the DEFINITY ?? is administered and while images are being obtained. The ECMO operatorcan be reached at [phone] ([phone] in [place]) ADMINISTRATION INSTRUCTIONS: DEFINITY?? may be ordered by a credentialed provider, RN or fabric designer Educate patient or responsible alliance party on DEFINITY?? indications and potential side effects and review procedure goals with the patient and/or caregiver Verify patient does not have any allergy or contraindications to receive DEFINITY?? or octaflouropropane and confirm Allergies by ???Marking as Reviewed?? in patient's chart Verify peripheral or central line IV access. If IV access is not available, then a trained fabric designer slip cover operator may place peripheral IV access, as appropriate, [...] below for further information) RN or trained fabric designer may discontinue peripheral IV access when IV [...] HX WISDOM TEETH EXTRACTION 2009 front teeth [place] INSJ/RPLCMT CRANIAL NEUROSTIM GENER 2/> ELTRDS Left 10/27/2013 VAGUS NERVE STIMULATOR PLACEMENT performed by Hieu Macias MD at [facility] OR [place] UNLISTED PROCEDURE DENTOALVEOLAR STRUCTURES N/A 10/20/2014 DENTAL REHABILITATION performed by Dereck Dunbar DDS at [facility] OR [facility] MN UNLISTED PROCEDURE DENTOALVEOLAR STRUCTURES N/A 12/06/2016 DENTAL REHABILITATION performed by Dereck Dunbar DDS at [facility] OR [facility] Facility-Administered Medications as of 11/16/2023 Medication Dose [...] MD 400 mg at 11/15/23 182 cloNIDine (TCHZHGDV-OVV-7) 0.1 mg/24 hr transdermal patch 1 Patch [...] 7 days Yaima Mitchell MD multivitamin with lbmebmkw-ryrcwylq-cryffc (CENTRUM SILVER) 0.4 mg-300 mcg- 250 mcg [...] lunch Yaima Mitchell MD 150 mg at 11/15/23 1234 diphenhydrAMINE (BENADRYL) tablet 25 mg 25 mg every 6 hours PRN Yaima Mitchell MD hydrOXYzine HCL (ATARAX) tablet 25 mg 25 mg TID PRN Yaima Mitchell MD naloxone (NARCAN) 0.4 mg/mL injection [...] for the consultation, Evelio Miller MD, FACP, [facility] Infectious Diseases Office Exchange: [phone] * Iva Joseph PA-C - 11/13/2023 11:03 PM CDT Images from the original note were not included. DATE: 11/13/2023 NAME: Curt Beebe : 1985 CSN: [id number] [facility] General Surgery Consult ASSESSMENT/PLAN: Curt Beebe [...] care that crosses 2 midnights or more. Iva Joseph PA-C, 11/13/2023 11:03 PM For routine needs from 7am-7pm, contact the [facility] team signed onto the patient's care team via secure chat. For urgent needs: [facility] Pager: [phone] [facility] Trauma Emergency Phone: (1STAB) [facility] General Emergency Phone: (1GALL) Subjective: Chief Complaint Patient presents with Fever Pt comes from skilled nursing after staff observer pt was breathing hard [...] and was not eating today. Lives jose [facility]cf[facility]. Nonverbal at baseline. 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 Other general symptoms(780.99) Aggression-Adjustment Disorder Psychiatric disorder anxiety S/P placement of VNS (vagus nerve stimulation) device Seizure disorder Static encephalopathy Tremors of nervous system Past Surgical History: Procedure Laterality Date HX WISDOM TEETH EXTRACTION 2008 front teeth [place] INSJ/RPLCMT CRANIAL NEUROSTIM GENER 2/> ELTRDS Left 10/27/2013 VAGUS NERVE STIMULATOR PLACEMENT performed by Hieu Macias MD at [facility] OR [place] UNLISTED PROCEDURE DENTOALVEOLAR STRUCTURES N/A 10/20/2014 DENTAL REHABILITATION performed by Dereck Dunbar DDS at [facility] OR MAIN [place] UNLISTED PROCEDURE DENTOALVEOLAR STRUCTURES N/A 12/06/2016 DENTAL REHABILITATION performed by Dereck Dunbar DDS at [facility] OR MAIN Family History Problem Relation [...] Gresham MD Trauma and General Surgery - [facility] For routine needs from 7am to 5pm, contact the [facility] team signed onto the patient's care team. For urgent needs: [facility] Pager: [phone] [facility] Emergency Phone: documented in this encounter OR Notes * Operative Report - Henok Artis MD - 11/16/2023 6:41 PM CDT Images from the original note were not included. [address] [place] [address] OPERATIVE REPORT PATIENT NAME: Curt Beebe DATE OF : 1985 CSN: [id number] Date of Procedure: 11/16/2023 Pre-operative Diagnosis: Acalculous acute cholecystitis Post-operative Diagnosis: Calculous acute cholecystitis Procedure: Laparoscopic converted to open cholecystocolotomy. Surgeon: Henok Artis MD Nail Technician: Jewels Hermosillo MD, and Vijay Ray, ANNA: [...] Tissue Gallbladder PATHOLOGY Henok Artis MD 11/16/2023 1826 Implants: Implant Name Type Inv. Item Serial No. Radiochemical Technician Lot No. LRB No. Used Action AGENT HEMOSTAT SURGICEL 4X8IN - [id number] Hemostatic AGENT HEMOSTAT SURGICEL 4X8IN J&J- [employer] [id number] N/A 1 Implanted AGENT HEMOSTAT SURGICEL 4X8IN - SNA Hemostatic AGENT HEMOSTAT SURGICEL 4X8IN 1952S NA J&J- [employer] [id number] N/A 1 Implanted HEMOSTATIC SURGIFLO 8ML W/ THROMBIN 2994 - SNA Hemostatic HEMOSTATIC SURGIFLO 8ML W/ THROMBIN 2994 NA J&J- [employer] [id number] N/A 1 Implanted AGENT HEMOSTAT SURGICEL 4X8IN 1952S - SNA Hemostatic AGENT HEMOSTAT SURGICEL 4X8IN 1952S NA J&J- [employer] [id number] N/A 1 Implanted Complications: None; patient tolerated the procedure well. Henok Artis MD * Anesthesiology - Trevor Velazco MD - 11/16/2023 4:53 PM CDT Curt has vagal nerve stim implanted for seizure control. Spoke to Dr Driss Noble [facility] neurologist. Stated nothing needs to be done to device periop including postprocedure interrogation. Spoke twice to him. Device wand can be place over implant to deactivate if necessary . Device info LIVA [employer] model 1000, serial number [id number] . documented in this encounter ED Notes [...] Patient presents with Fever Pt comes from skilled nursing after staff observer pt was breathing hard [...] COVID exposure. The patient lives in a mcfp and is nonverbal. Physician(s): Gulshan Mena DO History provided by: A caregiver [facility] H[place] LIMITED BY: nonverbal. Arrived by: EMS [...] EXAM INITIAL VS BP: (!) 155/92 (11/13/23 1804), Heart Rate: 67 bpm (11/13/231803), Resp: 24 [...] of cholecystitis. DICTATION LOCATION: Location 1 - [facility] EKG: As interpreted by me: Sinus rhythm 66 regular, nonspecific T waves. PROCEDURES Procedures MEDICAL DECISION MAKING AND PLAN OF CARE --On initial evaluation, saw and examined the patient. Discussed plan for labs, EKG, and imaging. Patient understands and agrees with the plan. 10:48 PM: D/w surgery ANNA who will consult. 10:54 PM: Discussed with Rigo ANNA for [facility], who agrees with admission. 11:10 PM: Updated [...] 11/14/2023 0103 Date/Time Order Dose Route Action 11/13/2023 2208 CDT sodium chloride 0.9% infusion -- IV Not Given 11/14/2023 0018 CDT sodium chloride 0.9% infusion -- IV New Bag 11/13/2023 2220 CDT sodium chloride 0.9% infusion -- IV New Bag 11/13/2023 2220 CDT sodium chloride 0.9% bolus solution 500 mL 500 mL IV Bolus 11/14/2023 0019 CDT aztreonam (AZACTAM) 1,000 mg in sodium chloride 0.9% 50 mL IVPB (MBP) 1,000 mg IV New Bag 11/14/2023 0043 CDT acetaminophen (TYLENOL) tablet 975 mg 975 mg Oral Not Given . 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 Home Health Non [facility] Agency Rep: Deborah Anticipated Start of Care Date: 12/01/23 Spoke with Deborah is calling the [facility] to let them know the details. Additional Comments: * Care Plan - Gladys Mendoza RN - 11/28/2023 6:15 AM CDT Bladder [...] to complete functional asks at the EOB. [facility] Daily Activity How much help from another [...] light in reach, tray table in reach. skilled nursing employee present for session. Other: bed alarm on A: Response to treatment: progressing towards goals P: Continue 2-5x/wk at bedside for: ADL Training, Functional Mobility Training, UE ROM/Strengthening, Patient Education, Cognition/Perception unless change in status or patient is discharged from [facility]. Plan of Care developed, as indicated by OT assessment and patient's current status. Additional Discharge Information: none Please refer to plan of care for updates on goals. Zone #: [id number] * Care Plan - Yuliana Rincon, Senior Court Office Assistant - 11/27/2023 12:03 PM CDT Problem: Physical Mobility, Impaired Goal: Mobility goal: Improve ambulation by discharge Description: Patient will ambulate 100 feet on level surface, using no assistive device, with independence so patient can navigate discharge environment. Outcome: Progressing Recommend: Post acute care;Will tolerate 3 hours of therapy (11/27/23 105) Recommendations were made on today's assessment. Additional recommendations will be based on patient's progress in therapy. Equipment to be issued at discharge: DME: To be determined (11/27/231054) S: Patient agreeable to therapy. Pt non [...] take steps, forward flexed posture, posterior lean [facility] Basic Mobility How much help from [...] or cannot do at all Total score 24 Scale: 1 - Total - requires total [...] of bed Min-SBA due to leaning R, [facility] employee present for session Positioning after tx: [...] care for updates on goals. Zone #: [id number] * Care Plan - Merrill Soliman MSW - 11/27/2023 10:25 AM CDT Instructor Adjunct Surgical Technician Discharge Planning Expected Discharge Date Nov 26, 2023 Plan Discharge To: (Facility) (11/17/23 7691) Comment: 10:20 AM Placed call to Zeferino bradley left requesting call back 10:25 AM Placed call to Zeferino Booth to discuss pt discharge plans. Karla stated she was unsure if Destini had reviewed DC Summary for the pt. Karla stated that she or Sally and Destini WADE plan on seeing pt in the hospital to confirm whether he would be able to return. FERNANDO informed Karla pt is medicallyready for discharge and provided call back number at Karla's request. Jensen Met with Destini WADE and Sally Slubber Runner at [facility] in pt room at bedside to discuss DC. [facility] staff requested the following; -DC summary be [...] DC, abdominal binder to be delivered by [employer], and [facility] staff have observed pt transfer using gait belt with therapy staff. Referrals Status: Durable Medical Equipment - Accepted Preferred Pharmacy: [facility] [place] - [address], [address] [facility] Patient / Family Communications Resources Provided Transportation Plan Merrill Soliman MSW Care Management [phone] Hrs - Saturday 8am - 6pm * [...] - 11/26/2023 6:37 PM CDT Transfer from [facility], arrived to room 6301,patient alert but unable to verbalized. Eroded coccyx noted, mepilex applied. Heels elevated on pillows and repositioned to left side. * Care Plan - Tammy De Souza MSW - 11/26/2023 10:40 AM CDT FERNANDO talked to nurse CM with [facility] and insurance sales supervisor. They requested clinicals and DC summary. FERNANDO faxed, SW informed mother of DC, no concerns. She is still working on Door [address] anna, aware he can get PT/OTadded to if completed. Nurse CM is working to figure out transportation for patient. 1:00PM FERNANDO called house nurse CM about transport arrangements. They said they still haven't receivedclinicals and need to review meds. FERNANDO told them she faxed clinicals this morning with success but will resent at least DC summary and med list again. Patient has not been cleared by [facility] staff to return to facility. Facility to transport vs ambulance pending mobility. SONI Garza [id number] Problem: Discharge Planning Goal: Identify discharge needs upon admission and through discharge Description: 11/26/2023 1011 by Tammy De Souza MSW Outcome: Progressing * Care Plan - Tammy De Souza MSW - 11/26/2023 10:11 AM CDT FERNANDO left message with [facility] case management manager, warehouse shipping supervisor,house nurse case management manager, and mother to informof DC. Left voicemail's for all. SONI Garza [id number] Problem: Discharge Planning Goal: Identify discharge needs upon admission and through discharge Description: Outcome: Progressing * Care Plan - Mihir Chambers, Physical Therapist - 11/25/2023 10:53 AM CDT [...] Start Time: 1053 PT Treatment Stop Time: 1112 Recommend: Post acute care;Will tolerate 3 hours of therapy (11/25/23 1053) Recommendations were made on today's assessment. Additional recommendations will be based on patient's progress in therapy. Equipment to be issued at discharge: DME: To be determined (11/25/23 105) S: OK to see per RN. Patient [...] Unable to progress at current functional level [facility] AM-PAC Basic Mobility How much help from [...] with functional mobility, importance of activity and exercise during hospitalization Positioning after tx: Patient positioned in [...] care for updates on goals. Zone #: [id number] Mihir Chambres, PT, DPT * Care Plan - Lyndon Gupta, - 11/24/2023 6:41 PM CDT Notified by [...] hospitalization Outcome: Progressing Problem: Violence, Potential/Actual Goal: Usp: Demonstrates ability to control behavior as evidenced [...] hospitalization Outcome: Progressing Problem: Violence, Potential/Actual Goal: Usp: Demonstrates ability to control behavior as evidenced [...] Outcome: Progressing * Home Health - Zeynep Mohan, MAURO - 11/22/2023 4:23 PM CDT HOME HEALTH- HOSPITAL CONSULT - PENDING ARRANGEMENT Spoke with Yuliana Beebe, mother, regarding the following recommended home health services. MD/FIELD CASE MANAGER in agreement to sign home care orders: Gulshan Mena DO Recommended Skilled Disciplines: [x] SN [] PT [] OT [] ST [] AIDE [] STRUCTURAL ENGINEERING TECHNICIAN Place of Service: [x] Home Care will take place at permanent address [facility] in [facility] [] [facility] disclosure of ownership discussed, list of area agencies offered for review [] Declined list of agencies for review Patient has requested consideration from the following agencies First Choice: [facility] Second Choice: First Available Agency Additional Comments: Will be adding PT/OT after being approved for [employer]. Call [phone] with questions * Care Plan - Nael Cote, Occupational Therapist - 11/22/2023 10:38 AM CDT Problem: Self-Care Deficit Goal: Self care goal: Improve ability to perform self care activities by discharge Description: Patient will require minimal assistance with grooming/bathing with adaptive equipment. Outcome: Progressing Recommend: Post acute care (11/22/23 8856) Recommendations were made on today's assessment. Additional recommendations will be based on patient's progress in therapy. Equipment Recommended at discharge: To be determined (11/22/23 4461) Additional Adaptive Equipment Recommended: to be determined [...] to help improve pts strength, ROM and Kinder with selfcare. FUNCTIONAL ACTIVITIES LE Dressing: Max [...] mobility going sitting to supine for safety [facility] Daily Activity How much help from another [...] [facility] Plan of Care developed, as indicated by OT assessment and patient's current status. Additional Discharge Information: none Please refer to plan of care for updates on goals. Zone #: [phone] * Care Plan - Delores Aguila Physical [...] x1 for steadying using gait belt and PAPER COUNTER. Ambulation distance limited due to bilateral knee [...] assist x2 to boost up in bed. [employer] Basic Mobility How much help from another [...] care for updates on goals. Zone #: [phone] * Care Plan - Tammy De Souza MSW - 11/22/2023 8:11 AM CDT SW attempted to call [place] nurse case management manager again this morning, unable to reach her. SW did get ahold of [facility] dyer assistant Gayatri and spoke to her about WC deliver. FERNANDO informed her that we are aware the house needs 24 hour notice but I was not able to reach anyone yesterday to give them the notice and patient is ready for DC today. FERNANDO also left message for patients mother. Tammy De Souza, SONI [id number] Problem: Discharge Planning Goal: Identify discharge needs upon admission and through discharge Description: Outcome: Progressing * Care Plan - Maura Murray RN - 11/22/2023 6:52 AM CDT Sent message to [facility]that patient refusing all po meds this am. Betzy WADE * Care Plan - Maura Murray RN - 11/21/2023 9:33 PM CDT Explained rationale for meds and all procedures to patient , but patient is nonverbal but does appear to understand Betzy WADE * Care Plan - Tammy De Souza MSW - 11/21/2023 3:54 PM CDT SW was bedside with patient, he was more interactive with SW, hitting the balloon, saying balloon. He ate a cookie that his mom made, a pack of fruit snacks, and drank an entire ensure. FERNANDO turned on [employer] on computer for patient. SW still waiting to hear back from house staff to schedule DCmeeting. SONI Garza [id number] Problem: Discharge Planning Goal: Identify discharge needs upon admission and through discharge Description: 11/21/2023 1443 by Tammy De Souza MSW Outcome: Progressing * Marilin Anderson - Tammy De Souza MSW - 11/21/2023 2:43 PM CDT FERNANDO called warehouse shipping supervisor, she is not working today. FERNANDO called nurse case management manager at the house to schedule meeting for return. FERNANDO left message. FERNANDO also called [facility] case management manager and also left message to discuss DME orders and return to home. Gayatri said there has to be a meeting help with house staff/nurse CM and hospital SW before patient can return. SONI Garza [id number] Problem: Discharge Planning Goal: Identify discharge needs [...] hospitalization Outcome: Progressing Problem: Violence, Potential/Actual Goal: Conche Loader And Unloader: Demonstrates ability to control behavior as evidenced [...] and Flush Protocol- CT and MRI Procedures [facility] Approved by: [facility]-Medical Executive Committee Approval Date: 08/01/2023 ORDERS ARE [...] is oral. May use nasoenteric tube ifneeded. Dickson to 3 months Administer up to 90mL [...] 300 mg/ml oral solution age appropriate guidelines Administer 45mL of diluted Iopamidol oral solution, [...] (Omnipaque) 240mg/ml oral solution age appropriate guidelines Dickson Administer 45mL of diluted Iohexol oral solution, [...] than 55kg and confirm dose with radiologist. Dickson to 15 years old Administer 2.2mL/kg (to [...] number of NSF cases: Gadodiamide (Omniscan?? - Jodange) Gadopentetate dimeglumine (Magnevist?? - [employer]) Gadoversetamide (OptiMARK?? - Guerbet) Group II: Agents associated with few, if any, unconfounded cases of NSF: Gadobenate dimeglumine (MultiHance?? - [employer]) Gadobutrol (Gadavist?? - [employer]; Gadovist in many countries) Gadoteric acid (Dotarem?? - Guerbet, Clariscan - Jodange) Gadoteridol (ProHance?? - [employer]) Group III: Agents for which data remains limited regarding NSF risk, but for which few, if any unconfounded cases of NSF have been reported: Gadoxetate disodium (Eovist - [employer]; Primovist in many countries) * Care Plan - Kate Borrego Physical Therapist - 11/20/2023 4:15 PM CDT Problem: Physical Mobility, Impaired Goal: Mobility goal: Improve transfer ability by discharge Description: Patient will transfer supine to sit and bed to/from chair with independence. Outcome: Progressing Flowsheets (Taken 11/20/20231614) Assistive Devices Screening: Transfer pad Assistive Devices Used: Friction reducing device Present Activity: in bed dangled at bedside back to bed Physical Assist/Nonphysical Assist: w/ 2 person assist Goal: Mobility goal: Improve ambulation by discharge Description: Patient will ambulate 100 feet on level surface, using no assistive device, with independence so patient can navigate discharge environment. Outcome: Progressing Flowsheets (Taken 11/20/2023 161) Assistive Devices Screening: Transfer pad Assistive Devices Used: Friction reducing device Present Activity: in bed dangled at bedside back to bed Physical Assist/Nonphysical Assist: w/ 2 person assist Recommend: Post acute care;To be determined (11/20/23 1615) Recommendations were made on today's assessment. Additional recommendations will be based on patient's progress in therapy. Equipment to be issued at discharge: DME: To be determined (11/17/23 8530) S: Patient agreeable to therapy. Nonverbal throughout [...] participation, instead motions frequently to pillow at [facility], wanting to lay down. Once supine again, pt incontinent of bowels, maxA to rollside to side to change linens and get pt cleaned up with additional assist of PCT. maxAx2 to boost to HOB Transfers: Unable to progress at current functional level Gait: Unable to progress at current functional level [facility] AM-PAC Basic Mobility How much help from [...] care for updates on goals. Zone #: [phone] Kate Borrego, PT, DPT * Care Plan - Tammy De Souza MSW - 11/20/2023 3:44 PM CDT SW spoke with patients certified solid waste facility operator. She said that baseline patient eats well, [...] or SNF. He can receive therapy at [facility] if his mother fills out MFA and hegets approved. SW to provide mother with MFA application. SONI Garza [id number] Problem: Discharge Planning Goal: Identify discharge needs upon admission and through discharge Description: Outcome: Progressing * Care Plan - Nael Cote, Occupational Therapist - 11/20/2023 11:28 AM CDT Problem: Self-Care Deficit Goal: Self care goal: Improve ability to perform self care activities by discharge Description: Patient will require minimal assistance with grooming/bathing with adaptive equipment. Outcome: Progressing Recommend: Post acute care (11/20/23 6211) Recommendations were made on today's assessment. Additional recommendations will be based on patient's progress in therapy. Equipment Recommended at discharge: To be determined (11/20/23 1344) Additional Adaptive Equipment Recommended: to be determined [...] to help improve pts strength, ROM and Kinder with selfcare. FUNCTIONAL ACTIVITIES LE Dressing: Max A to don socks Functional mobility: Max A x1 for bed mobility going supine to sitting EOB. Patient tolerates sitting up for about 5 minutes. Patient not interacting much while EOB and remains fairly sleepy and lethargic. Patient then max A x1 for bed mobility going sitting to supine [facility] Daily Activity How much help from another [...] in status or patient is discharged from [facility]. Plan of Care developed, as indicated by OT assessment and patient's current status. Additional Discharge Information: none Please refer to plan of care for updates on goals. Zone #: [phone] * Care Plan - Nael Cote, Occupational Therapist - 11/19/2023 2:26 PM CDT Problem: Self-Care Deficit Goal: Self care goal: Improve ability to perform self care activities by discharge Description: Patient will require minimal assistance with grooming/bathing with adaptive equipment. Outcome: Progressing Recommend: Post acute care (11/19/23 5728) Recommendations were made on today's assessment. Additional [...] to help improve pts strength, ROM and Kinder with selfcare. FUNCTIONAL ACTIVITIES LE Dressing: Max A to don socks Functional mobility: Max A x1 for bed mobility going supine to sitting EOB. Patient tolerates sitting up for about 5 minutes. Patient more alert today but no true command following noted. Patient tolerates sitting up better today. Patient then max A x1 for bed mobility going sitting to supine [facility] AM-PAC Daily Activity How much help from [...] in [facility] Plan of Care developed, as indicated by OT assessment and patient's current status. Additional Discharge Information: none Please refer to plan of care for updates on goals. Zone #: [phone] * Care Plan - Tammy De Souza MSW - 11/19/2023 10:42 AM CDT FERNANDO talked to group tester, Sally in regards to meeting patients needs at DC. She said there is a house nurse that can evaluate his needs prior to DC and determine if it something she can accommodate. Destini's number is [phone]. FERNANDO will speak with her once DC needs are determined. TammySONI Basilio [id number] Problem: Discharge Planning Goal: Identify discharge needs upon admission and through discharge Description: Outcome: Progressing * Care Plan - Nael Cote, Occupational Therapist - 11/18/2023 10:21 AM CDT Problem: Self-Care Deficit Goal: Self care goal: Improve ability to perform self care activities by discharge Description: Patient will require minimal assistance with grooming/bathing with adaptive equipment. Outcome: Progressing Recommend: Post acute care (11/18/23 0778) Recommendations were made on today's assessment. Additional [...] to help improve pts strength, ROM and Kinder with selfcare. FUNCTIONAL ACTIVITIES LE Dressing: Max A to don socks Functional mobility: Max A x1 for bed mobility going supine to sitting EOB. Patient tolerates sitting up for about 5 minutes. Patient not interacting much while EOB and remains fairly sleepy and lethargic. Patient then max A x1 for bed mobility going sitting to supine [facility]-P[facility] Daily Activity How much help from another [...] in [facility] Plan of Care developed, as indicated by OT assessment and patient's current status. Additional Discharge Information: none Please refer to plan of care for updates on goals. Zone #: [phone] * Care Plan - Makr Arevalo GN - 11/17/2023 9:48 PM CDT Problem: Pain, [...] hospitalization Outcome: Progressing Problem: Violence, Potential/Actual Goal: Conche Loader And Unloader: Demonstrates ability to control behavior as evidenced [...] care;Will tolerate 3 hours of therapy (11/17/23 7436) Recommendations were made on today's assessment. Additional recommendations will be based on patient's progress in therapy. Equipment to be issued at DC: To be determined (11/17/23 5578) S: Patient agreeable to therapy. Patient reports unrated pain. Per RN, pt is appropriate for therapy Pain intervention: Unneccessary movement avoided Response to pain intervention: Appeared content Living Situation/Functional Level ACTIVATED SLUDGE ATTENDANT: per chart, pt was living in a residential community/[facility]. Pt is typically ambulatory with a gait [...] and relief of pressurepoints. Balance: fair sitting [facility] AM-PAC Basic Mobility How much help from [...] or cannot do at all Total score 01/04 Scale: 1 - Total - requires total [...] issued at DC: To be determined (11/17/23 9426) --Patient involved in goal setting: yes Patient goals will be found in the Care Plan section of the medical chart. 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 Additional recommendations will be based on patient's progress in therapy. Equipment needed at DC: To be determined (11/17/23 6524) Additional Adaptive Equipment Recommended: to be determined S: Patient agreeable to therapy. Pain intervention: Unneccessary movement avoided, Repositioned for comfort, Premedicated for activity, RN provided medications, RN aware Response to pain intervention: appeared content Living Situation/Functional Level ACTIVATED SLUDGE ATTENDANT: Per chart, pt living in residential community. [...] Feeding: total assist Grooming: max a, attempted capitan grande initiation for wiping face UE Dressing: total [...] for comfort, RN at bedside, SCDs replaced [facility] AM-PAC Daily Activity How much help from [...] section of the medical chart. Zone #: [phone] On weekends--please call [phone] * Care Plan - Shirlene Grigsby RN - 11/17/2023 6:47 AM CDT U&A (undress & assess) completed by: Niesha WADE and Ivy WADE - no new breakdown noted End of [...] Afebrile GI: NPO sips with meds. 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 Bowel sounds hypoactive. : good u/o [...] pain/comfort utilizing verbal/nonverbal pain scales; assess culturalor mormon indicators attached to pain; administer pain medications [...] to follow * Therapy Evaluation - Brynn Pagan Physical Therapist - 11/16/2023 8:49 AM CDT PT ordered received and chart reviewed. Pt held on this date due to finally resting after a difficult night and planned for OR later this morning. Will continue to follow, evaluate, and treat as appropriate. Please reach out with any questions or concerns regarding physical therapy care. Thanks, [phone] * Care Plan - Manny May RN [...] to follow patient .Thank you. Zone #: [phone] * Treatment Plan - Tony Banuelos CNMT - 11/15/2023 9:34 AM CDT Images from the original note were not included. [facility] IMS Medication and Flush Protocol - Nuclear Medicine Procedures [facility] Approved by: [facility] - Medical Executive Committee Approval Date: 11/01/2023 ORDERS ARE ENTERED ???PER PROTOCOL?? Enter the protocol in the patient's electronic health record using smartphrase: .imagingnucmedicineprotocol The Nuclear Medicine Department and PET/CT Department, in collaboration with the Radiology Glove Brusher, Dtp Operator, Non-Invasive Cardiology Glove Brusher, the Pharmacy and Therapeutic Committee, and the Medical Executive Committee, has approved the Nuclear Medicine Medication and Flush Protocol available for implementation by the Coal Grader The Coal Grader may implement the Nuclear Medicine Medication and Flush Protocol when a provider orders a Nuclear Medicine study by paper or electronic order The Coal Grader will order all medication that appears on the MAR using 'Per Protocol or Standing - Cosign Required' The Coal Grader will: Verify the correct patient using two [...] dosages with a range are determined by fumigator and sterilizer calibration Note: In acute Tc99m shortages, radiopharmaceutical dosages may be decreased with approval and documentation within department from medical equipment sales/AU. Note: Hybrid SPECT/CT imaging used as appropriate for exam and/or as directed by Radiologist PROCEDURE DOSAGE Bone Marrow Imaging Va13p-Qqkfxiex Sulfur Colloid (Ejrbwgooyf46q- filtered sulfur colloid), Administer 8mCi, IV, ONE TIME. Bone Scan Imaging (Whole Body, Limited, 3-Phase, or SPECT) Mx19a-XSS (Lkoksjjxdo70x-ibqzqfzbn diphosphonate), Administer 25mCi, IV, ONE TIME. OR Ly63e-AWV (Toadyjomzp13j-kvsdvkowinmuvrly diphosphonate), Administer 25mCi, IV, ONE TIME. Brain Imaging Zb23v-QZZN (Qstzgncpem88z-kilyuumlpi-kjagqplk-zlsjoydhzptj), Administer 20mCi, IV, ONE TIME. Brain SPECT Imaging Zk45v-PVYNA (Ceretec) (Sumckvdteu34f-gdjzkmcdoepxuiuymrn amine oxime), Administer 20mCi, IV, ONE TIME. OR Tl-201 (Thallium Chloride-201), Administer 6mCi, IV, ONE TIME. C14 Urea Breath Test (PY Test) N63-Onhm (Carbon-14 Urea), Administer 1uCi capsule, Orally, ONE TIME. Cisternogram Imaging In-111 DTPA (Indium-111 yexqlgwbxc-mzodyjsm-rwfeutebglyw), Neuroradiologist toadminister 0.5mCi, Intrathecally, ONE TIME. Cystogram Imaging Tc-99m Pertechnetate (Xqfmegadlg78v-wcrllgaqwlxkj) Administer 1mCi On07g-hcjlstjagygza, intra-chavez catheter, ONE TIME AND Administer NS per calculated expected bladder volume, intra-chavez catheter, ONE TIME. DaTscan Imaging I-123 Ioflupane (Iodine-123 ioflupane), Administer 5mCi, IV, ONE TIME. AND Administer SSKI (Potassium Iodide) drops, 130mg, Orally, ONE TIME 30 minutes prior to radiopharmaceutical injection. Diverticulum/Meckel's Imaging Tc-99m Pertechnetate (Kyqpourwlf29f- pertechnetate), Administer 15mCi,IV, ONE TIME. Esophageal Reflux Imaging Ft49z-Kzysgh Colloid (Vhveikkbno49j-xicjkq colloid), Administer 1mCi in 1oz whole milk. Follow with additional 7oz whole milk, Orally, ONE TIME. Ga-67 Citrate - Planar Imaging Ga-67 Citrate (Gallium-67 Citrate), Administer 5mCi, IV, ONE TIME. Ga-67 Citrate - SPECT Imaging Ga-67 Citrate (Gallium-67 Citrate), Administer 10mCi, IV, ONE TIME. Gastric Empty Imaging - Liquid Meal Vc80x-BHCX (Uwkkpzkzhj38r-qceuuwhqek-ucfypodj-tdpxmonoyfp), Administer 1mCi in 300mL tap water, Orally, ONE TIME. Gastric Empty Imaging - Solid Meal Po12p-Ziwunj Colloid (Xkunlddtdb61z-znhwhf colloid), Administer 0.5mCi in 4 oz egg beaters or in 1 package of cooked instant oatmeal or in 1 container cooked of Easy Mac 'n Cheese, Orally, ONE TIME. GI Bleed Imaging (GI Blood Loss) Tc-99m Pertechnetate (Hqxjltbjxn31b- pertechnetate), Administer 25mCi heparinized RBCs, IV, ONE TIME. Hepatic Blood Pool Imaging Tc-99m Pertechnetate (Joqdlqgxck23y-lsywxuoujkgxj), Administer 25mCi heparinized RBCs, IV, ONE TIME. Hepatic Hemangioma Imaging Tc-99m Pertechnetate (Spelnrpifl08q-hgbxuixlwkzkv), Administer 25mCi heparinized RBCs, IV, ONE TIME. Hepatobiliary Scan Imaging Tc-99m Mebrofenin (Ekresnpmwd22z-emhzpztleh), Administer 5 mCi IV, ONE TIME *For inpatients only, if bilirubin >5mg/dL, Administer 8 mCi IV, ONE TIME *For inpatients only, if bilirubin > 8mg/dL, consult nuclear medicine physician prior to administering radiopharmaceutical Hepatobiliary Scan with Ejection Fraction Imaging Tc-99m Mebrofenin (Hjxmmacawi86b-sbrxlxvuiq), Administer 5 mCi IV, ONE TIME. *For [...] Hepatobiliary Scan with Pre-Treatment Imaging Tc-99m Mebrofenin (Jsxyvvukbq45j-fgqzizdcik), Administer 5 mCi IV, ONE TIME. *For [...] to 600uCi, heparanized WBC, IV, ONETIME. AND Mn76k-JVP (Aeuglyjolu99j-mityqynsb diphosphonate), Administer 20mCi for BMI < 35; Administer 25 mCi for BMI >= 35, IV, ONE TIME. OR In-111 Oxine (Indium-111 Oxine), Administer at least 300uCi, up to 600uCi, heparanized WBC, IV, ONETIME. AND Hy11l-Lxkpkhbb Sulfur Colloid (Mvlneoirma77l-adskthra sulfur colloid), Administer 8mCi, IV, ONE TIME. In-111 WBC Imaging In-111 Oxine (Indium-111 Oxine), Administer at least 300uCi, up to 600uCi, heparanized WBC, IV, ONE TIME. Liver/Spleen Imaging Dc34j-Losejw Colloid (Jjlmhhouzj30q-sajvhp colloid), Administer 5mCi, IV, ONE TIME. Lung Xenon Perfusion Imaging (normal or quantitative) Tc-99m MAA (Oqjtqwedab54u- macroaggregated albumin), Administer 4mCi, IV, ONE TIME. Lung Xenon Ventilation Imaging (normal or quantitative) Xe-133 (Xenon-133), Administer at least 10 mCi, up to 30 mCi, Inhalation, ONE TIME. Lung Perfusion Imaging (normal or quantitative) Tc-99m MAA (Vijdlysczl05c- macroaggregated albumin),Administer 4mCi, IV, ONE TIME. Lung Perfusion SPECT Imaging Tc-99m MAA (Ocfgprzfnw24g-vbavxbpzoxbtriu albumin), Administer 4mCi, IV, ONE TIME Lung Perfusion Imaging - Patient (normal or quantitative) Tc-99m MAA (Xecetmmeue77b-srmrokdrvtaexeq albumin), Administer 2mCi, IV, ONE TIME. Lymphoscintigraphy - Breast Cancer, Next Day Surgery Hd11a-Weaxallijk (Wswkogwbcq00d-zlyiduvyup), Administer 2mCi in 2 divided doses of 1mCi each, intradermal, ONE TIME. Lymphoscintigraphy - Breast Cancer, Same Day Surgery Nm12k-Lfgipcqnsn (Vjhcbzzkgy90x-oaipnvxemf), Administer 0.5mCi in 2 divided doses of 250uCi each, intradermal, ONE TIME. Lymphoscintigraphy - Lymphedema Bc86e-Nkhvhrhxrr (Bkvgrssmnx07v-wanylzscrh), For each extremity, administer 2mCi in 2 divided dosesof 1mCi each, subcutaneous, ONE TIME. Lymphoscintigraphy - Head & Neck Cancer, Next Day Surgery Mu84g-Tuzopmwwtj (Apcvumawzn41f-ceryflaopv), Administer 2mCi in 2 divided doses of 1mCi each, intradermal, ONE TIME. Lymphoscintigraphy - Head & Neck Cancer, Same Day Surgery Mf80w-Mcvtpxxben (Xhibkdrlvv42p-fenwczoyqv), Administer 0.5mCi in 2 divided doses of 250uCi each, intradermal, ONE TIME. Lymphoscintigraphy - Skin Cancer, Next Day Surgery Xo14u-Jwndqxkfne (Apyjewbkjo93s-vqzhoagtxm), Administer 2mCi in 4 divided doses of 0.5mCi each, intradermal, ONE TIME. Lymphoscintigraphy - Skin Cancer, Same Day Surgery Gp01o-Hgbkhrcbtz (Fsjchhuavg68f-kycytahogg), Administer 0.5mCi in 4 divided doses of 125uCi each, intradermal, ONE TIME. Lymphoscintigraphy - Skin Cancer, Small Body Area, Next Day Surgery Fg63x-Ezlwbeoaro (Trvyzlsvqq19v-hqiufakitk), Administer 2mCi in 2 divided doses of 1mCi each, intradermal, ONE TIME. Lymphoscintigraphy - Skin Cancer, Small Body Area, Same Day Surgery Tc99m- Lymphoseek (Wkukunpwol29d-ljtduttnmg), Administer 0.5mCi in 2 divided doses of 250uCi each, intradermal, ONE TIME. Lymphoscintigraphy - Vulvar Melanoma Next Day Surgery Yn87w-Pslewukfzb (Upexxpwuer95g-yxoycdgjcq), Administer 2mCi in 1 dose, intradermal, ONE TIME. Lymphoscintigraphy - Vulvar Melanoma, Same Day Surgery Wi29u-Ymdzeuqgon (Outfismxpi49b-mceizlnint), Administer 0.5mCi in 1 dose, intradermal, ONE TIME. MIBG Imaging I-123 MIBG (Iodine-123 metaiodobenzylguandidine), Administer 10mCi, IV, ONE TIME. AND Administer SSKI (Potassium Iodide) drops, 130mg, Orally, ONE TIME 30 minutes prior to radiopharmaceutical injection. Microsphere Mapping (Y90 Mapping) Tc-99m MAA (Hjtvebkvjp84o-gdotdnbdzpjcdtq albumin), Interventional Radiologist to administer (1) 2mCi in in 2mL NS, intra-arterial via catheter, ONE TIME. OR Tc-99m MAA (Vehbkrfrdr80y-lphgenesbrhsyac albumin), Interventional Radiologist to administer (2) 2mCi in in 2mL NS, intra-arterial via catheter, ONE TIME. MUGA/RVG Imaging Tc-99m Pertechnetate (Knwdcmtgxn01v-hiwxmacmpufun), Administer 25mCi heparinized RBCs, IV, ONE TIME. Myocardial Amyloid Scintigraphy (Hot PYP Scan) Og78x-DBS (Ipgfnaueyo04t-dqyyihlkcusjp), Administer 15mCi, IV, ONE TIME. OR Fi05-EDQ (Ltlrrgjxed75e-icndcdovruhvkyth diphosphonate), Administer 15mCi, IV, ONE TIME. Myocardial Dual Isotope Imaging Tl-201 (Thallium Chloride-201) AND Af81w-Bprvbrx (Ijmyqddhkz44d-vndpkbs), Administer 3mCi Tl-201forresting images, IV, ONE TIME AND Administer Co70l-Quwzyak (Onxenhekdg26d-kwdbgss), for stress images based on patient's weight, IV, ONE TIME. Male or Female Patients: <180lbs: 12mCi Male or Female Patients: 181-240lbs: 15mCi Female Patients 241-265lbs: 18mCi Male Patients 241-330lbs: 18mCi Female Patients >265lbs: 24mCi Male Patients >330lbs: 24mCi Myocardial Planar Imaging (for patients >= table weight limit) Cd91s-Dluisvx (Ymfvicezjx30y-Ltijvhb), Administer 30mCi, IV, ONE TIME for rest images, ONE TIME for stress images. Myocardial Rest Imaging - SPECT Imaging Tl-201 (Thallium Chloride-201), Administer 4mCi, IV, ONE TIME. OR Fm39u-Ovzixjf (Aglqopetye49h-Kjlxjsh), Administer 6mCi for female patients ?? 264 lb., IV, ONE TIME. OR Hw69l-Xfujxph (Lrjftlfgef15g-Vsjdjzk), Administer 6mCi for male patients ?? 329 lb., IV, ONE TIME. OR Ek36y-Ojzkcoa (Ggjhkxoxtj70l-Momhiln), Administer 8mCi for female patients >= 265-399 lb., IV, ONE TIME. OR Mx91v-Tpjmivu (Seqswaucof09m-Dmxkqil), Administer 8mCi for male patients >= 330- 399 lb., IV, ONETIME. OR Sm15m-Hufgndm (Igsbjfqfyz00m-Fgdevry), Administer 10mCi for all patients >= 400- 500 lb., IV, ONETIME. Myocardial Stress - SPECT Imaging Br75y-Sngewum (Nrlizflqhi94z-Xrreofq), Administer 18mCi for female patients ?? 264 lb., IV, ONE TIME. OR Za43o-Pchucze (Fppsaxdbrd93k-Elvahkx), Administer 18mCi for male patients ?? 329 lb., IV, ONE TIME. OR Dc75z-Evnkzre (Skmgondxrz60n-Cxxurpm), Administer 24mCi for female patients >= 265-399 lb., IV, ONE TIME. OR Bo15e-Yvizyuc (Rakrtpnosx45c-Mzbokls), Administer 24mCi for male patients >= 330-399 lb., IV, ONE TIME. OR Bk12x-Fmrhzel (Jsbuivkvxz31k-Tyysgdi), Administer 30mCi for all patients >= 400- 500 lb., IV, ONETIME. Myocardial Viability Imaging Tl-201 (Thallium Chloride-201), Administer 2.5mCi, IV, ONE TIME. Note: If patient >=250 lbs, TI-201 (Thallium Chloride-201), Administer 3.5mCi, IV, ONE TIME. Octreoscan In-111 Pentetreotide (Indium-111 Pentetreotide), Administer 6mCi, IV, ONE TIME. Parathyroid Imaging St61w-Ofghfxjnr (Dsabfymuvc12z-qdgolbdsg), Administer 20mCi, IV, ONE TIME. Peritoneal Cavity Scintigraphy Qs64p-Ailuiq Colloid (Ssdhhgfjjc69x-bvzpzc colloid), Administer 2mCiin 3mL NS, via peritoneal dialysis, ONE TIME. Peritoneovenous Shunt Scintigraphy Tc-99m MAA (Bbkzprzesu63q-oibroguycnyceli albumin), Physician toadminister 5mCi in 3mL NS, Intraperitoneal, ONE TIME. PET/CT Axumin F-18 Axumin (Ztopsmkx23-dqgasgnikpxf), Administer 10mCi, IV, ONE TIME. PET/CT Brain Imaging (Amyvid) F18- florbetapir [Amyvid??, (E)-4-(2-(6-(2-(2-(2[F-18]- (fluoroethoxy)ethoxy)ethoxy)lqnnqpsy-8-ix)vinyl)-N-methylbenzamine], Administer 10mCi, IV, ONE TIME. PET/CT Brain Imaging (FDG) F18-FDG (Pqcqxsqj97-tzhckiqjsdzrpivlew), Administer 10mCi, IV, ONE TIME. PET/CT Dotatate Imaging Ga-68 Dotatate (Gallium-68 Dotatate), Administer 5.4mCi, IV, ONE TIME. PET/CT Dotatate Imaging Cu-64 Detectnet (Copper-64 Dotatate), Administer 4mCi, IV, ONE TIME. PET/CT Myocardial Scan (Sarcoidosis or Viability) F18-FDG (Dhzrtwzp87- fluorodeoxyglucose), Administer 0.11mCi/kg with at least 8mCi, up to 17mCi, IV, ONE TIME. PET/CT Limited, Standard, or Whole-Body Oncology Imaging F18-FDG (Ihgsqjpi74-emocscbtkqrqzhkvhc), Administer 0.11mCi/kg, with at least 8mCi, up to 17mCi, IV, ONE TIME. PET/CT Pylarify Imaging V45-Qpodujfp (Exxkpjao11-Ebohczhbkonxb), Administer 9mCi, IV, ONE TIME. Pluvicto Therapy Laverne-177 (Lutetium-177 vipivotide tetraxetan), Administer per Written Directive, IV,ONE TIME. Renal Scintigraphy (FANNIE-Inhibitor Renal Scan) Th89s-HTF4 (Ftouqfvyst56x- mercaptoacetyltriglcine), Administer 5mCi, IV, ONE TIME. AND Administer Enalaprilat (Vasotec) 2.5mg, IV, ONE TIME. Dilute to 5mL total volume with normal salineand infuse via hand push injection over 5 minutes. OR Administer Captopril, 50mg capsule crushed and dissolved in 150mL tap water, Orally, ONE TIME. Renal Scintigraphy (Cortical Imaging) Ie79l-PSVO (Dfnjlehimq70l- dimercaptosuccinic acid), Administer 5mCi, IV, ONE TIME. Renal Scintigraphy (Diuretic Renal Scan) Tl15w-WWNH (Rpbreochpb09l-mklacpfdma-wsylppnt-zjjpzkzzmkwg), Administer 5mCi, IV, ONE TIME. AND Administer Lasix (furosemide) 40mg, IV push over 2 minutes, ONE TIME. OR Fk79a-AVH4 (Lvsmsrevaq54t-lojtbcakuhbdvbxmuvatkri), Administer 5mCi, IV, ONE TIME. AND Administer Lasix (furosemide), 40mg, IV push over 2 minutes, ONE TIME. Renal Scintigraphy (Flow and Function Scan) Ip99y-TLJK (Rcmygllpqo53e-otsnphcpaq-ecmricbb-zotcsqnncpjq), Administer 5mCi, IV, ONE TIME. OR Tv56c-PBB1 (Soyimvfcbr24o-vljphxlepfsbztpcqxewseo), Administer 5mCi, IV, ONE TIME. Renal Scintigraphy (Renal Transplant Scan) Ki22d-VDAB (Srpulrhcah87t-dplibnpaak-srokbori-kuivemrhdhso), Administer 5mCi, IV, ONE TIME. OR Fn07a-FNT3 (Qjvcluizyy16w-yckzurhubiheagwssplryhn), Administer 5mCi, IV, ONE TIME. Salivary Imaging Tc-99m Pertechnetate (Wvhjstxgeq62l-cbrskrsuxrjsr), Administer 5mCi, Orally, ONE TIME. Shunt Patency Imaging (CSF Shunt Imaging) Dr73e-HYPL (Tafcncnbgk72h-bvpxvhklnu-rparklsf-fptfpzvcqsbr), Neurosurgeon or neurosurgeon's PA to administer 0.5mCi, intra-shunt reservoir, ONE TIME. Splenic Imaging Tc-99m Pertechnetate (Wbrxbojrrm62p-klemuphbtymiw), Administer 6mCi heparinized, heat damaged RBCs, IV, ONE TIME. Ei72r-FZW Imaging Yu82p-Bjhyaci (Asdwvxipef73q-Imfaojo), Administer 15mCi heparinized WBC, IV, ONE TIME. Thyrogen Injection Thyrogen (thyrotopin maame), Administer 0.9mg, deep IM, every 24 hours for 2 doses. Thyroid Imaging Tc-99m Pertechnetate (Cjdoqyyxqu62k-icerrhyronogf), Administer 10mCi, IV, ONE TIME. OR I-123 [...] dosages with a range are determined by fumigator and sterilizer calibration Note: In acute Tc99m shortages, radiopharmaceutical dosages may be decreased with approval and documentation within department from medical equipment sales/AU. Note: Hybrid SPECT/CT imaging used as appropriate for exam and/or as directed by Radiologist PROCEDURE DOSAGE Bone Marrow Imaging Oc37o-Uhganrue Sulfur Colloid (Izdqsthhyk88u-sltobjgv sulfur colloid), Administer 0.14mCi/kg with at least 1mCi, up to 8mCi, IV, ONE TIME. Bone Scan Imaging (Whole Body, Limited, 3-Phase, or SPECT) Eo58w-GBQ (Ylwicopxxr85i-zdcrhletb diphosphonate), Administer 0.25mCi/kg with at least 1mCi, up to 25mCi, IV, ONE TIME. OR Kb48r-ALI (Czkczfzzwy01h-tvgehxuwgjceimzs diphosphonate), Administer 0.25mCi/kg with at least 1mCi,up to 25mCi, IV, ONE TIME Brain Imaging Yr91n-UVNJ (Mvtchqozff55l-quctapgmez-qfhrcsea-abpmezhssyuu), Administer 0.3mCi/kg with at least 5mCi, up to 20mCi, IV, ONE TIME. Brain SPECT Imaging Zu14d-UGXBN (Ceretec) (Gyxzlziigh54g-ntifuetwjcuoklkxcfw amine oxime), Administer 0.3mCi/kg with atleast 3mCi, up to 20mCi, IV, ONE TIME. C14 Urea Breath Test (PY Test) A70-Wjje (Carbon-14 Urea), Administer 1uCi capsule, Orally, ONE TIME. Cisternogram Imaging In-111 DTPA (Indium-111 exbhyetdgo-starnbsz-pxmrzajyghfk), Neuroradiologist to administer 0.07mCi/kg with at least 0.1mCi, up to 0.5mCi, Intrathecally, ONE TIME. Cystogram Imaging Tc-99m Pertechnetate (Pivfplixpv34k-dstgxlsywazxq) Administer 1mCi, intra-chavez catheter, ONE TIME AND Administer NS per calculated expected bladder volume, intra-chavez catheter, ONE TIME. Diverticulum/Meckel's Imaging Tc-99m Pertechnetate (Pdjmuohupz92n-iaukvqsdbpvwn), Administer 0.05mCi/kg with at least 0.25mCi, upto 15mCi, IV, ONE TIME. Esophageal Reflux Imaging - <1yoa Vp88u-Azbdwf Colloid (Unlmppsdly00m-ksabju colloid), Administer 0.1mCi for patients <3.5lb., Orally, [...] of time. Esophageal Reflux Imaging - >1yoa In51n-Figqjk Colloid (Digjsmanoc28n-povbgx colloid), Administer 0.5mCi in 1 oz whole [...] TIME. Gastric Empty Imaging - Liquid Meal Nw53v-Empwmz Colloid (Txyxoejlgn37q-cqhorq colloid), Administer7 uCi/kg with at least 250uCi, [...] over a 10-minute total period of time.OR Ye23x-DKVD (Dutveywgda25u-gmwqfseodn-oxyoausa-rpwyjdohkrd), Administer 1mCi in 300mL tap water, Orally, ONE TIME. *Follow Fk14x-NQGR dosing if the pediatric patient is not an infant and consumes water. Gastric Empty Imaging - Solid Meal Xy99u-Orcgdl Colloid (Drcaafsiiv90c-lzybow colloid), Administer 7uCi/kg with at least 250uCi, up to 500uCi in 4 oz eggbeaters or in 1 package of cooked instant oatmeal, or in 1 container cooked of Easy Mac 'n Cheese, Orally, ONE TIME. GI Bleed Imaging (GI Blood Loss) Tc-99m Pertechnetate (Wkzelwktdf64x- pertechnetate), Administer 0.32mCi heparinized RBCs with at least 2mCi, up to 25mCi, IV, ONE TIME. Hepatic Blood Pool Imaging Tc-99m Pertechnetate (Zmdsgmuljh86b-dvrubdyjyfzic), Administer 0.32mCi heparinized RBCs with at least 2mCi, up to 25mCi, IV, ONE TIME. Hepatic Hemangioma Imaging Tc-99m Pertechnetate (Xbseydpenk80j-xkbndienxpjzh), Administer 0.32mCi heparinized RBCs with at least 2mCi, up to 25mCi, IV, ONE TIME. Hepatobiliary Scan Imaging Tc-99m Mebrofenin (Ieqcmquzqx54m-eqimadbucv), Administer 0.05mCi/kg withat least 0.5mCi, up to 5mCi, IV, ONE TIME *For inpatients only, if bilirubin >5mg/dL, Administer 0.08mCi/kg with at least 1mCi, up to 8mCi, IV, ONE TIME *For inpatients only, if bilirubin > 8mg/dL, consult nuclear medicine physician prior to administering radiopharmaceutical Hepatobiliary Scan Imaging for in Jaundice Tc-99m Mebrofenin (Zuymitrbnl95b-kdejksktll), Administer 0.08mCi/kg with at least 1mCi, up to 8mCi, IV, ONE TIME AND Administer Phenobarbital 5mg/kg/day (may be administered in 2 divided doses) for 3 days prior to imaging, IV, ONE TIME PER DAY. Hepatobiliary Scan with Ejection Fraction Imaging Tc-99m Mebrofenin (Hwejwziaog21s-ahmzkgvsqn), Administer 0.05mCi/kg with a at least 0.5mCi, [...] Hepatobiliary Scan with Pre-Treatment Imaging Tc-99m Mebrofenin (Cakwwflhlv40u- mebrofenin), Administer 0.05mCi/kg with a at least [...] 500uCi, heparanized WBC, IV, ONE TIME. AND Gy00g-HQR (Dskwrjidsv08d-knwzanpqb diphosphonate), Administer 0.25mCi/kg with at least 1mCi, up to 20mCi, IV, ONE TIME. OR In-111 Oxine (Indium-111 Oxine), Administer 5uCi/kg with at least 300uCi, up to 500uCi, heparanizedWBC, IV, ONE TIME. AND Ic27l-Cwwasrhs Sulfur Colloid (Dxougwtgim37t-naezkrjo sulfur colloid), Administer 0.14mCi/kg with at least 1mCi, up to 8mCi, IV, ONE TIME. In-111 WBC Imaging In-111 Oxine (Indium-111 Oxine), Administer 5uCi/kg with at least 300uCi, up to 500uCi, heparanized WBC, IV, ONE TIME. Liver/Spleen Imaging Vi11f-Afswix Colloid (Udpxifuxnv62t-nlaedp colloid), Administer 0.05mCi/kg with at least 0.5mCi, up to 5mCi, IV, ONE TIME. Lung Xenon Perfusion Imaging (normal or quantitative) Tc-99m MAA (Uxhizlmuvv87c-uoorhkkavxvkdep albumin), Administer 0.03mCi/kg, with at least 0.4mCi, upto 4mCi IV, ONE TIME. Lung Xenon Ventilation Imaging (normal or quantitative) Xe-133 (Xenon-133), Administer 10 mCi, inhalation, ONE TIME. Lung Perfusion Imaging (normal or quantitative) Tc-99m MAA (Awwhvcbdpn39o-tlamvsyicfhqfmm albumin), Administer 0.03mCi/kg, with at least 0.4mCi, upto 4mCi IV, ONE TIME. Lung Perfusion Imaging - Patient (normal or quantitative) Tc-99m MAA (Dxnfrmwlms47l-gduumyaolbpmgsi albumin), Administer 0.03mCi/kg, with at least 0.4mCi, [...] Orally, ONE TIME. MUGA/RVG Imaging Tc-99m Pertechnetate (Kpjsyjhgbp70b-hdppxfnfysbum), Administer 0.32mCi/kg heparinized RBCs with at least 2mCi, up to 25mCi, IV, ONE TIME. Myocardial Amyloid Scintigraphy (Hot PYP Scan) Og88x-EZJ (Effrmwkttn84r- pyrophosphate), Administer 0.28mCi/kg, with at least 2.5mCi, up to 15mCi IV, ONE TIME. Myocardial Rest Imaging - SPECT Imaging Nm32a-Iwcpghf (Rcjfyxqrgn63f-Gmuxuso), Administer 0.15mCi/kg, with at least 2mCi, up to 8mCi IV, ONE TIME. Myocardial Stress Imaging - SPECT Imaging Uh60y-Niyhutp (Eadjxrqvoh86y-Phycmqt), Administer 0.45mCi/kg, with at least 6mCi, up to 24mCi IV, ONE TIME. Octreoscan In-111 Pentetreotide (Indium-111 Pentetreotide), Administer 0.08mCi/kg with at least 1mCi, up to 6mCi, IV, ONE TIME. Parathyroid Imaging Hi20v-Mpgvibxjz (Meqknjurnn49f-kjyqlbckj), Administer 0.25mCi/kg, with at least 2mCi, up to 20mCi IV, ONE TIME. Peritoneal Cavity Scintigraphy Wb02t-Xvdqgy Colloid (Iiyndziuuu39t-pbyulx colloid), Administer 0.07mCi/kg in 2mL NS with at least 1mCi, up to 2mCi, via peritoneal dialysis, ONE TIME. Peritoneovenous Shunt Scintigraphy Tc-99m MAA (Jxskluweda10l-eyzhwsslegoinim albumin), Physician to administer 0.07mCi/kg with at least 1mCi, up to 5mCi in 2mL NS, Intraperitoneal, ONE TIME. PET/CT Brain Imaging (FDG) F18-FDG (Paofxuri40-lcoybhpovkemzbveky), Administer 0.10mCi/kg with at least 2mCi, up to 10mCi, IV,ONE TIME. PET/CT Limited, Standard, or Whole-Body Oncology Imaging F18-FDG (Ddgsezni31-jjvfomikhvdmdjlruq), Administer 0.11mCi/kg with at least 2mCi, up to 10mCi, IV,ONE TIME. PET/CT Dotatate Imaging Ga-68 Dotatate (Gallium-68 Dotatate), Administer 0.054mCi/kg up to 5.4mCi, IV, ONE TIME. (Minimum dose determined by AU). Renal Scintigraphy (FANNIE-Inhibitor Renal Scan) Wj24b-DXS0 (Zocmnlxhjf38s-mmkgkzmjbgttjqreqetgfvn), Administer 0.1mCi/kg with at least 1mCi, up to 5mCi, IV, ONE TIME. AND Administer Enalaprilat (Vasotec) 0.04mg/kg with a maximum dose of 2.5mg, IV, ONE TIME. Dilute to 5mL total volume with normal saline and infuse via hand push over 5 minutes. Renal Scintigraphy (Cortical Imaging) Nv32z-DJTR (Cpnpsnszeu20p-hnpufdzqulqlkkspcf acid), Administer 0.05mCi/kg with at least 0.5mCi, up to 5mCi, IV, ONE TIME. Renal Scintigraphy (Diuretic Renal Scan) Hn34r-QBYB (Eyfxlponsn55u-jfxpfeufyc-nzeemxls-zhnpicvgypwp), Administer 0.2mCi/kg with at least 2mCi, up to 5mCi, IV, ONE TIME. AND Administer Lasix (furosemide), 1mg/kg, up to 40mg, IV push over 2 minutes, ONE TIME. A reduced dosage of 0.5mg/kg may be used per direction of nuclear medicine physician. OR Rw37d-PPI2 (Gocjsrppui32g-qklpudcybnwzdsphzorftew), Administer 0.1mCi/kg with at least 1mCi, up to 5mCi, IV, ONE TIME. AND Administer Lasix (furosemide), 1mg/kg, up to 40mg, IV push over 2 minutes, ONE TIME. A reduced dosage of 0.5mg/kg may be used per direction of the nuclear medicine physician. Renal Scintigraphy (Flow and Function Scan) Tm30x-GTDT (Kcibmxmzmy50w-wsejlbyjxc-axlqxenl-gsqwmbjfmzfw), Administer 0.2mCi/kg with at least 2mCi, up to 5mCi OR Sy24p-COU4 (Dpoawvzqfr60m-pppjippxckszfrpmdkwwybk), Administer 0.1mCi/kg with at least 1mCi, up to 5mCi, IV, ONE TIME. Renal Scintigraphy (Renal Transplant Scan) Rb26w-FALU (Wtprvaxxti36p-tbwhsnorml-tougjlpx-imucthyifped), Administer 0.2mCi/kg with at least 2mCi, up to 5mCi OR Nd09x-QHB9 (Iwyhrbacrb62j-yyvjtsoswbztaxkdiwejnls), Administer 0.1mCi/kg with at least 1mCi, up to 5mCi, IV, ONE TIME. Salivary Imaging Tc-99m Pertechnetate (Enmyndxukf56b-lhdncorzmfxcb), Administer 0.05mCi/kg with at least 0.25mCi, up to 5mCi, Orally, ONE TIME. Shunt Patency Imaging (CSF Shunt Imaging) Oi20k-ABVI (Cexbjxdzbq69h-qhyjgdhrst-pvlrozmz-mphcfwgpkozf), Neurosurgeon or neurosurgeon's PA to administer 0.01mCi/kg with at least 0.4mCi, up to 0.5mCi, intra-shunt reservoir, ONE TIME. Splenic Imaging Tc-99m Pertechnetate (Asdikftdyz68w-azvholrfsbwqg), Administer 0.03mCi/kg with at least 0.5mCi, up to 6mCi heparinized, heat damaged RBCs, IV, ONE TIME. Io42i-PKA Imaging Bu15s-Rzhehll (Ebndwuyqok96q-Btajrvw), Administer 0.2mCi/kg with at least 2mCi, up to 15mCi, heparinized WBC, IV, ONE TIME. Thyroid Imaging Tc-99m Pertechnetate (Ayvrawkgto65f-rumnzexxbeuko), Administer 0.07mCi/kg with at least 1mCi, up [...] Written Directive * Therapy Evaluation - Deborah Mendoza Occupational Therapist - 11/15/2023 9:27 AM CDT OT orders received, Pt pending further exams to determine possible OR per RN . Will plan for followup as appropriate. [id number] * Therapy Evaluation - Kassidy Thomas Occupational Therapist - 11/14/2023 2:59 PM CDT OT orders received and pt's chart reviewed. Per RN, hold OT evaluation at this time due to current medical status. Will continue to follow [id number] * Care Plan - Carey Hopkins MSW - 11/14/2023 9:34 AM CDT Care Management Initial Assessment Initial Discharge Planning Assessment completed. Discussed Care Management's role and Discharge planning. Discharge Plan: return to [facility] Does the patient have family and/or a caregiver that is willing, able and available to assist if needed? Yes - Name/Relation:[facility] staff Comments: Spoke to pt's group tester Karla for assessment [phone]. Verified listed address & verified pharmacy. At baseline pt walks with gait belt/helmet (d/t seizure disorder). He can feed self with weighted dishes but needs assistance with hygiene etc. At this time pt has all needed DME. Discharge will need to be coordinated with [facility]. . Clinicals faxed through [employer]. skilled nursing can transport on weekdays M-F until 4pm; no returns accepted on weekend. Karla is going on vacation tomorrow so if pt does not discharge today will need to coordinate with Sally [phone]. Addendum 1:53 PM Spoke to Karla, they have received clinical information. Pt anticipated to be ready to dc in 1-2 days. skilled nursing needs pt to return before 4pm on [...] a SNF/NH? No [facility] 9 thru 12 teacher via phone. Prior to admission, patient resides at: [facility] . Patient resides in a 1 [...] belt, helmet Services in the home/community: other [facility] caregivers Serviced by [facility] Receives hemodialysis? No Emergency contact(s): Extended Emergency Contact Information Primary Emergency Contact: YULIANA BEEBE Address: [address] [place] [address] [address] [facility] Relation: Mother Secondary Emergency Contact: KARLA NAVARRO Mobile Relation: Patient Identified Reverser Office Support Clerk needed? No Prescription coverage: yes Preferred Pharmacy verified: [facility] [place] [place] - [facility], [address] [place] [address] Insurance coverage verified: Payor: MEDICAID / Plan: [place]ICAID [place] / Product Type: Medicaid / Secondary Insurance:N/A Medicaid Status: no spend down Has VA Benefits: no Employment Status: not employed PCP verified as: Gulshan Mena, DO Patient has not had a stay at an acute care hospital in the last 30 days. Recent Falls?: Last Known Fall: No falls Plan for transportation at discharge: [facility] transport Care Management contact information provided. Care Management will continue to follow and assist asneeded. Carey Hopkins LMSW Care Management Department: [phone] Hours: Thurs-Sun [phone] * Care Plan - Richie Neves RN - 11/14/2023 3:19 AM CDT Pt admitted and resting in bed * Gen AI ED Handoff - NURSING, GENERATIVE AI HANDOFF NOTE - 11/14/2023 2:46 AM CDT [...] He has a history of developmental delay, [place]-Gastaut syndrome, and intractable epilepsy. The patient also [...] date: Expected time: Means of arrival: Comments: [id number] nonverbal breathing fast? documented in this encounter [...] CDT PATHOLOGY Pathology 11/16/2023 6:26 PM CDT MN CHOLECSTOT/CHOLECSTOST W/EXPL DRG/RMVL ST1 SPX 11/16/2023 12:48 PM CDT MN LAPAROSCOPY SURG CHOLECYSTECTOMY 11/16/2023 12:48 PM CDT [...] CDT TROPONIN 6 HR, 5TH GEN Stat 3:44 AM CDT CBC WITH DIFFERENTIAL Stat [...] EEG 24 HOUR (11/26/2023 8:02 AM CDT) [facility] - 11/26/2023 8:02 AM CDT Raleigh Kaplan MD ? 11/26/2023 ??5:05 PM Video-EEG Report Patient Name: Curt Beebe [facility] Medical Record Number (MRN): [id number] Date of (): 1985 Start Time: 9:22 [...] cerebral dysfunction. Tomasa Kaplan MD Neurology Lyndon Gupta DO NEUROLOGY ORDERABLE S [facility] * (ABNORMAL) MANUAL DIFFERENTIAL (11/25/2023 6:16 AM CDT) SEGMENTED NEUTROPHILS 61 % 11/25/2023 7:04 AM CDT [facility] LYMPHOCYTES RELATIVE 24(L) 43 - 53 % 11/25/2023 7:04 AM CDT [facility] - [facility] ATYPICAL LYMPHOCYTES RELATIVE 5 0 - 5 % 11/25/2023 7:04 AM CDT [facility] MONOCYTES RELATIVE 4 % 11/25/2023 7:04 AM CDT [facility] [place] EOSINOPHILS RELATIVE 3 % 11/25/2023 7:04 AM CDT [facility] - . [facility] METAMYELOCYTES RELATIVE 2(H) <=0 % 11/25/2023 7:04 AM CDT [facility] MYELOCYTES - REL (DIFF) 2(H) <=0 % 11/25/2023 7:04 AM MethodT [facility] - [facility] NEUTROPHILS ABSOLUTE COUNT 5.35 1.90 - 7.00 K/uL 11/25/2023 7:04 AM MethodT [facility] LYMPHOCYTES ABSOLUTE 2.08 0.70 - 4.50 K/uL 11/25/2023 7:04 AM CDT [facility] MONOCYTES ABSOLUTE 0.32 0.10 - 1.30 K/uL 11/25/2023 7:04 AM CDT [facility] EOSINOPHILS ABSOLUTE 0.24 0.00 - 0.70 K/uL 11/25/2023 7:04 AM CDT [facility] TOTAL CELLS COUNTED IN DIFF 109 11/25/2023 7:04 AM MethodT [facility] - [facility] RBC MORPHOLOGY abnormal 11/25/2023 7:04 AM CDT [facility] [place] EST. Consistent w Count 11/25/2023 7:04 AM CDT [facility] ANISOCYTOSIS 2+ /hpf 11/25/2023 7:04 AM CDT [facility] MACROCYTES 1+ /hpf 11/25/2023 7:04 AM CDT [facility] POLYCHROMASIA 2+ /hpf 11/25/2023 7:04 AM CDT [facility] Blood Venipuncture / Unknown 11/25/2023 6:16 AM CDT 11/25/2023 6:21 AM CDT Yaima Mitchell MD HEMATOLOGY ORDERABLE S COM [facility] - [facility] CLIA# [id number] [address] [place] [address] * (ABNORMAL) CBC WITH DIFFERENTIAL (11/25/2023 6:16 AM CDT) Pathologist [facility] [place] WBC 8.7 4.0 - 9.8 K/uL 11/25/2023 6:32 AM CDT [facility] - . [facility] RBC 2.72(L) 4.50 - 5.40 M/uL 11/25/2023 6:32 AM T [facility] - . [facility] HEMOGLOBIN 8.5(L) 13.6 - 16.5 g/dL 11/25/2023 6:32 AM CDT [facility] - . [facility] HEMATOCRIT 27.1(L) 40.0 - 48.0 % 11/25/2023 6:32 AM CDT [facility] - . [facility] MCV 99.6(H) 82.0 - 99.0 fL 11/25/2023 6:32 AM CDT [facility] - . [facility] MCH 31.3 27.2 - 32.6 pg 11/25/2023 6:32 AM CDT [facility] - . [facility] MCHC 31.4(L) 31.5 - 35.5 g/dL 11/25/2023 6:32 AM CDT [facility] RDW 14.9(H) 11.5 - 14.5 % 11/25/2023 6:32 AM CDT [facility] RDW-STDEV 49.1(H) 37.1 - 48.7 fL 11/25/2023 6:32 AM CDT [facility] PLATELETS 329 140 - 350 K/uL 11/25/2023 6:32 AM CDT [facility] MPV 9.0(L) 9.3 - 12.4 fL 11/25/2023 6:32 AM CDT [facility] Blood Venipuncture / Unknown 11/25/2023 6:16 AM CDT 11/25/2023 6:21 AM CDT Yaima Mitchell MD HEMATOLOGY ORDERABLE S [facility] - [facility]# [id number] [address] [place] [address] * (ABNORMAL) BASIC METABOLIC PANEL (11/25/2023 6:16 AM CDT) SODIUM 137 136 - 145 mmol/L 11/25/2023 7:29 AM T [facility] - [facility] POTASSIUM 4.1 3.5 - 5.0 mmol/L 11/25/2023 7:29 AM T [facility] - [facility] CHLORIDE 106 98 - 107 mmol/L 11/25/2023 7:29 AM T [facility] - [facility] CO2 21(L) 22 - 29 mmol/L 11/25/2023 7:29 AM T [facility] - [facility] CALCIUM 8.8 8.6 - 10.2 mg/dL 11/25/2023 7:29 AM T [facility] - [facility] BUN 16 6 - 20 mg/dL 11/25/2023 7:29 AM T [facility] CREATININE 0.70 0.67 - 1.17 mg/dL 11/25/2023 7:29 AM [facility] LABORATORY [facility] GLUCOSE 94 74 - 99 mg/dL 11/25/2023 7:29 AM [facility] GFR >60 >=60 mL/min/1.7 3 sq meter 11/25/2023 7:29 AM [facility] LABORATORY [facility] Comment:eGFR calculated with 2020 CKD-EPI equation. Vegetarian diet, extremely high or low muscle mass, and may affect results. Cystatin C with Glomerular Filtration Rate is a suitable alternative for these patients. ANION GAP 10 8 - 16 mmol/L 11/25/2023 7:29 AM [facility] LABORATORY [facility] Blood Venipuncture / Unknown 11/25/2023 6:16 AM CDT 11/25/2023 6:21 AM CDT Lyndon Gupta DO CHEMISTRY ORDERABLE S Performing Organization Address City/[facility]/ZIP Co de Phone Number [facility] CLIA# [id number] [address] [place] [address] * URINE CULTURE (11/25/2023 6:16 AM CDT) CULTURE No growth at 24 hours 11/26/2023 7:11 AM T [facility] Urine URINE SPECIMEN OBTAINED BY CLEAN CATCH PROCEDURE / Unknown Collection / Unknown 11/25/2023 6:16 AM CDT 11/25/2023 6:40 AM CDT Lyndon Gupta DO 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 - GENE RAL ORDERABLES [facility] CLIA# [id number] [address] [place] [address] * URINALYSIS WITH REFLEX MICROSCOPIC (11/25/2023 6:16 AM CDT) COLOR UA Yellow Pale to Dark Yellow 11/25/2023 6:46 AM T [facility] CLARITY UA Clear Clear 11/25/2023 6:46 AM CDT [facility] SPECIFIC GRAVITY UA 1.026 1.003 - 1.035 11/25/2023 6:46 AM CDT [facility] - [facility] PH UA 5.0 5.0 - 8.0 11/25/2023 6:46 AM CDT [facility] - [facility] LEUKOCYTE ESTERASE UA Negative Negative 11/25/2023 6:46 AM T [facility] - [facility] NITRITE UA Negative Negative 11/25/2023 6:46 AM CDT [facility] - [facility] PROTEIN UA Negative Negative 11/25/2023 6:46 AM CDT [facility] - [facility] GLUCOSE UA Negative Negative 11/25/2023 6:46 AM T [facility] - [facility] KETONES UA Negative Negative 11/25/2023 6:46 AM T [facility] - [facility] UROBILINOGEN UA Normal <2.0 mg/dL 6:46 AM CDT [facility] - [facility] BILIRUBIN UA Negative Negative 11/25/2023 6:46 AM T [facility] - [facility] BLOOD UA Negative Negative 11/25/2023 6:46 AM T [facility] - [facility] Urine URINE SPECIMEN OBTAINED BY CLEAN CATCH PROCEDURE / Unknown Collection / Unknown 11/25/2023 6:16 AM CDT 11/25/2023 6:40 AM CDT Lyndon Gupta DO URINE ORDERABLES [id number] [address] [facility] [address] * CT HEAD WO CONTRAST (11/24/2023 7:49 PM CDT) Anatomical Region Laterality Modality Head Computed Tomogra phy 11/24/2023 7:50 PM CDT Impressions 11/24/2023 7:58 PM CDT IMPRESSION: ?? No acute intracranial abnormality. DICTATION LOCATION: Location 1 - [facility] Narrative 11/24/2023 7:58 PM CDT EXAMINATION: CT [...] intracranial abnormality. DICTATION LOCATION: Location 1 - [facility] Lyndon Derek Dashnoris DO CT ORDERABLES * (ABNORMAL) BLOOD GAS ARTERIAL (11/24/2023 6:42 PM CDT) PH ARTERIAL 7.39 7.35 - 7.45 11/24/2023 6:58 PM CDT [facility] PCO2 ARTERIAL 37 35 - 48 mm Hg 11/24/2023 6:58 PM CDT [facility] PO2 ARTERIAL 89 83 - 108 mm Hg 11/24/2023 6:58 PM CDT [facility] HCO3 ARTERIAL 22 22 - 26 mmol/L 11/24/2023 6:58 PM CDT [facility] BASE EXCESS ABG -2.3(L) -2.0 - 3.0 mmol/L 11/24/2023 6:58 PM CDT [facility] O2 SAT EST ARTERIAL 98 95 - 99 % 11/24/2023 6:58 PM CDT [facility] P/F RATIO ARTERIAL 424 11/24/2023 6:58 PM CDT [facility] OXYGEN MODE Room Air 11/24/2023 6:58 PM T [facility] FIO2 21.0 21.0 - 100.0 % 11/24/2023 6:58 PM T [facility] Blood, arterial Arterial / Unknown 2023 6:42 PM CDT 11/24/2023 6:47 PM CDT Chely L Elías REFORMATORY ATTENDANT ABG ORDERABLES [id number] [address] [place] [address] [place] [address] * (ABNORMAL) MANUAL DIFFERENTIAL (11/24/2023 6:41 PM CDT) SEGMENTED NEUTROPHILS 67 % 11/24/2023 7:42 PM CDT [facility] LYMPHOCYTES RELATIVE 21(L) 43 - 53 % 11/24/2023 7:42 PM CDT [facility]. [facility] MONOCYTES RELATIVE 5 % 11/24/2023 7:42 PM CDT [facility]. [facility] EOSINOPHILS RELATIVE 5 % 11/24/2023 7:42 PM CDT [facility]. [facility] METAMYELOCYTES RELATIVE 3(H) <=0 % 11/24/2023 7:42 PM CDT [facility]. [facility] MYELOCYTES - REL (DIFF) 1(H) <=0 % 11/24/2023 7:42 PM CDT [facility] LAB[facility]. [facility] NEUTROPHILS ABSOLUTE COUNT 6.87 1.90 - 7.00 K/uL 11/24/2023 7:42 PM CDT [facility] - [facility] LYMPHOCYTES ABSOLUTE 2.13 0.70 - 4.50 K/uL 11/24/2023 7:42 PM CDT [facility] - [facility] MONOCYTES ABSOLUTE 0.46 0.10 - 1.30 K/uL 11/24/2023 7:42 PM CDT [facility] - [facility] EOSINOPHILS ABSOLUTE 0.46 0.00 - 0.70 K/uL 11/24/2023 7:42 PM CDT [facility] - [facility] TOTAL CELLS COUNTED IN DIFF 111 11/24/2023 7:42 PM CDT [facility] - [facility] RBC MORPHOLOGY abnormal 11/24/2023 7:42 PM CDT [facility] - [facility] PLATELET EST. Consistent w Count 11/24/2023 7:42 PM CDT [facility] SERVICES - . [facility] POLYCHROMASIA 1+ /hpf 11/24/2023 7:42 PM CDT [facility] - . [facility] Blood Venipuncture / Unknown 11/24/2023 6:41 PM CDT 11/24/2023 6:47 PM CDT Chely L Elías REFORMATORY ATTENDANT HEMATOLOGY ORDERABLE S COM [facility] CLIA# [id number] [address] [place], [place] [id number] * MAGNESIUM LEVEL (11/24/2023 6:41 PM CDT) MAGNESIUM 2.6 1.6 - 2.6 mg/dL 11/24/2023 7:27 PM CDT [facility] LAB[facility]ATORY SERVICES - [facility] Blood Venipuncture / Unknown 11/24/2023 6:41 PM CDT 11/24/2023 6:47 PM CDT Chely L Leías REFORMATORY ATTENDANT CHEMISTRY ORDERABLES [facility] LAB[facility] CLIA# [id number] [address] [facility] [place] [address] * (ABNORMAL) BASIC METABOLIC PANEL (11/24/2023 6:41 PM CDT) SODIUM 137 136 - 145 mmol/L 11/24/2023 7:27 PM CDT [facility] SERVICES - . [facility] POTASSIUM 4.0 3.5 - 5.0 mmol/L 11/24/2023 7:27 PM T [facility] - [facility] CHLORIDE 105 98 - 107 mmol/L 11/24/2023 7:27 PM CDT [facility] - [facility] CO2 20(L) 22 - 29 mmol/L 11/24/2023 7:27 PM CDT [facility] - [facility] CALCIUM 8.7 8.6 - 10.2 mg/dL 11/24/2023 7:27 PM T [facility] - . [facility] BUN 18 6 - 20 mg/dL 11/24/2023 7:27 PM T [facility] - [facility] CREATININE 0.67 0.67 - 1.17 mg/dL 11/24/2023 7:27 PM T [facility] SERVICES - . [facility] GLUCOSE 123(H) 74 - 99 mg/dL 11/24/2023 7:27 PM T [facility] SERVICES - . [facility] GFR >60 >=60 mL/min/1.7 3 sq meter 11/24/2023 7:27 PM T [facility] - . [facility] Comment:eGFR calculated with 2020 CKD-EPI equation. Vegetarian diet, extremely high or low muscle mass, and may affect results. Cystatin C with Glomerular Filtration Rate is a suitable alternative for these patients. ANION GAP 12 8 - 16 mmol/L 11/24/2023 7:27 PM T [facility] SERVICES - . [facility] Blood Venipuncture / Unknown 11/24/2023 6:41 PM CDT 11/24/2023 6:47 PM CDT Chely L Elías REFORMATORY ATTENDANT CHEMISTRY ORDERABLES [facility] LABORATORY SERVICES - [facility] CLIA# [id number] [address] [place] [address] * (ABNORMAL) CBC WITH DIFFERENTIAL (11/24/2023 6:41 PM CDT) Pathologist [facility] [place] WBC 10.3(H) 4.0 - 9.8 K/uL 11/24/2023 7:05 PM CDT [facility] RBC 2.73(L) 4.50 - 5.40 M/uL 11/24/2023 7:05 PM CDT [facility] - [facility] HEMOGLOBIN 8.6(L) 13.6 - 16.5 g/dL 11/24/2023 7:05 PM CDT [facility]AT[facility] - [facility] HEMATOCRIT 25.9(L) 40.0 - 48.0 % 11/24/2023 7:05 PM CDT [facility] - [facility] MCV 94.9 82.0 - 99.0 fL 11/24/2023 7:05 PM CDT [facility] - [facility] MCH 31.5 27.2 - 32.6 pg 11/24/2023 7:05 PM CDT [facility] - [facility] MCHC 33.2 31.5 - 35.5 g/dL 11/24/2023 7:05 PM CDT [facility] - [facility] RDW 14.5 11.5 - 14.5 % 11/24/2023 7:05 PM CDT [facility] - . [facility] RDW-STDEV 46.1 37.1 - 48.7 fL 11/24/2023 7:05 PM CDT [facility] - . [facility] PLATELETS 370(H) 140 - 350 K/uL 11/24/2023 7:05 PM CDT [facility] - . [facility] MPV 8.8(L) 9.3 - 12.4 fL 11/24/2023 7:05 PM CDT [facility] - [facility] Blood Venipuncture / Unknown 11/24/2023 6:41 PM CDT 11/24/2023 6:47 PM CDT Chely Mckinley REFORMATORY ATTENDANT HEMATOLOGY ORDERABLE S Performing Organization Address City/[facility]/ZIP Co de Phone Number [facility]# [id number] [address] [place] [address] * LACTIC ACID (11/24/2023 6:41 PM CDT) LACTIC ACID 1.2 <=2.0 mmol/L 11/24/2023 7:12 PM CDT [facility] Blood Venipuncture / Unknown 11/24/2023 6:41 PM CDT 11/24/2023 6:47 PM CDT Chely Mckinley REFORMATORY ATTENDANT CHEMISTRY ORDERABLES Performing Organization Address [facility]/ZIP Co de Phone Number [facility]# [id number] [address] [place] [address] * PROLACTIN (11/24/2023 6:41 PM CDT) PROLACTIN 7.5 4.0 - 15.2 ng/mL 11/24/2023 8:02 PM CDT [facility] Blood Venipuncture / Unknown 11/24/2023 6:41 PM CDT 11/24/2023 6:47 PM CDT Lyndonsulaiman Bowlingnoris DO CHEMISTRY ORDERABLE S Performing Organization Address [facility]/ZIP Co de Phone Number [facility]# [id number] [address] [place] [address] * (ABNORMAL) POC GLUCOSE (11/24/2023 6:17 PM CDT) GLUCOSE POC 112(H) 74 - 99 mg/dL 11/24/2023 6:17 PM CDT [facility] LAB[facility] SPECIMEN SOURCE, GLUCOSE POC Whole Blood 11/24/2023 6:17 PM CDT [facility] Blood, whole 11/24/2023 6:17 PM CDT 11/24/2023 6:25 PM CDT Lyndon Gupta DO POINT OF CARE TESTI NG Performing Organization Address [facility] Co de Phone Number [facility]# [id number] [address] [place] [address] * BLOOD CULTURE (11/24/2023 1:56 PM CDT) BLOOD CULTURE No growth 11/29/2023 2:51 PM CDT [facility] Blood (Peripheral) Venipuncture / Unknown 11/24/2023 1:56 PM CDT 11/24/2023 1:59 PM CDT Lyndon Gupta DO 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 - GENE RAL ORDERABLES Performing Organization Address [facility] Co de Phone Number [facility]# [id number] [address] [place] [address] * BLOOD CULTURE (11/24/2023 1:56 PM CDT) BLOOD CULTURE No growth 11/29/2023 2:51 PM CDT [facility] Blood (Peripheral) Venipuncture / Unknown 11/24/2023 1:56 PM CDT 11/24/2023 1:59 PM CDT Narrative [facility] - 11/29/2023 2:51 PM CDT Specimen processed with suboptimal blood volume collected. Lyndon Gupta DO 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 - GENE RAL ORDERABLES Performing Organization Address [facility] Co de Phone Number [facility]# [id number] [address] [place] [address] * XR CHEST PA OR AP 1 [...] NEUTROPHILS 61 % 11/24/2023 8:14 AM CDT [facility] - . [facility] LYMPHOCYTES RELATIVE 27(L) 43 - 53 % 11/24/2023 8:14 AM CDT [facility] ATYPICAL LYMPHOCYTES RELATIVE 5 0 - 5 % 11/24/2023 8:14 AM CDT [facility] MONOCYTES RELATIVE 2 % 11/24/2023 8:14 AM CDT [facility] EOSINOPHILS RELATIVE 3 % 11/24/2023 8:14 AM CDT [facility] BASOPHILS RELATIVE 2 % 11/24/2023 8:14 AM CDT [facility] METAMYELOCYTES RELATIVE 1(H) <=0 % 11/24/2023 8:14 AM CDT [facility] NEUTROPHILS ABSOLUTE COUNT 5.97 1.90 - 7.00 K/uL 11/24/2023 8:14 AM CDT [facility] - [facility] LYMPHOCYTES ABSOLUTE 2.67 0.70 - 4.50 K/uL 11/24/2023 8:14 AM CDT [facility] - [facility] MONOCYTES ABSOLUTE 0.18 0.10 - 1.30 K/uL 11/24/2023 8:14 AM CDT [facility] - [facility] EOSINOPHILS ABSOLUTE 0.27 0.00 - 0.70 K/uL 11/24/2023 8:14 AM CDT [facility] BASOPHILS ABSOLUTE 0.18 0.00 - 0.20 K/uL 11/24/2023 8:14 AM CDT [facility] TOTAL CELLS COUNTED IN DIFF 110 11/24/2023 8:14 AM T [facility] RBC MORPHOLOGY abnormal 11/24/2023 8:14 AM CDT [facility] PLATELET EST. Consistent w Count 11/24/2023 8:14 AM CDT [facility] ANISOCYTOSIS 1+ /hpf 11/24/2023 8:14 AM T [facility] POLYCHROMASIA 1+ /hpf 11/24/2023 8:14 AM T [facility] Blood Venipuncture / Unknown 11/24/2023 5:08 AM CDT 11/24/2023 5:12 AM CDT Yaima Mitchell MD HEMATOLOGY ORDERABLE S COM [facility] SERVICES - [facility] CLIA# [id number] [address] [facility] [address] [place] [id number] * (ABNORMAL) CBC WITH DIFFERENTIAL (11/24/2023 5:08 AM CDT) Pathologist [facility] [place] WBC 9.8 4.0 - 9.8 K/uL 11/24/2023 5:37 AM CDT [facility] RBC 2.90(L) 4.50 - 5.40 M/uL 11/24/2023 5:37 AM CDT [facility] - [facility] HEMOGLOBIN 9.0(L) 13.6 - 16.5 g/dL 11/24/2023 5:37 AM CDT [facility] LAB[facility]ATORY SERVICES - . [facility] HEMATOCRIT 27.5(L) 40.0 - 48.0 % 11/24/2023 5:37 AM CDT [facility] LABORATORY SERVICES - . [facility] MCV 94.8 82.0 - 99.0 fL 11/24/2023 5:37 AM CDT [facility] LABORATORY SERVICES - [facility] MCH 31.0 27.2 - 32.6 pg 11/24/2023 5:37 AM CDT [facility] LABORATORY SERVICES - . [facility] MCHC 32.7 31.5 - 35.5 g/dL 11/24/2023 5:37 AM CDT [facility] LABORATORY SERVICES - . [facility] RDW 13.9 11.5 - 14.5 % 11/24/2023 5:37 AM CDT [facility] SERVICES - [facility] RDW-STDEV 44.9 37.1 - 48.7 fL 11/24/2023 5:37 AM CDT [facility] SERVICES - [facility] PLATELETS 361(H) 140 - 350 K/uL 11/24/2023 5:37 AM CDT [facility] SERVICES - . [facility] MPV 8.9(L) 9.3 - 12.4 fL 11/24/2023 5:37 AM CDT [facility] LAB[facility]ATORY SERVICES - . [facility] Blood Venipuncture / Unknown 11/24/2023 5:08 AM CDT 11/24/2023 5:12 AM CDT Yaima Mitchell MD HEMATOLOGY ORDERABLE S [facility] SERVICES - [facility] CLIA# [id number] [address] [facility] [address] [place] [address] * (ABNORMAL) MANUAL DIFFERENTIAL (11/23/2023 6:18 AM CDT) SEGMENTED NEUTROPHILS 67 % 11/23/2023 7:24 AM CDT [facility] SERVICES - [facility] LYMPHOCYTES RELATIVE 15(L) 43 - 53 % 11/23/2023 7:24 AM T [facility] LABORATORY SERVICES - [facility] ATYPICAL LYMPHOCYTES RELATIVE 5 0 - 5 % 11/23/2023 7:24 AM T [employer] [facility] SERVICES [facility] MONOCYTES RELATIVE 5 % 11/23/2023 7:24 AM T [employer] SERVICES - [facility] EOSINOPHILS RELATIVE 5 % 11/23/2023 7:24 AM [facility] [employer] SERVICES [facility] BASOPHILS RELATIVE 3 % 11/23/2023 7:24 AM [facility] [employer] SERVICES - . [facility] METAMYELOCYTES RELATIVE 1(H) <=0 % 11/23/2023 7:24 AM [facility] SERVICES - . [facility] MYELOCYTES - REL (DIFF) 1(H) <=0 % 11/23/2023 7:24 AM [facility] [employer] SERVICES - . [facility] NEUTROPHILS ABSOLUTE COUNT 5.72 1.90 - 7.00 K/uL 11/23/2023 7:24 AM [facility] [employer] [facility] - . [facility] LYMPHOCYTES ABSOLUTE 1.24 0.70 - 4.50 K/uL 11/23/2023 7:24 AM [facility] [employer] SERVICES - [facility] MONOCYTES ABSOLUTE 0.39 0.10 - 1.30 K/uL 11/23/2023 7:24 AM [facility] [employer] SERVICES - [facility] EOSINOPHILS ABSOLUTE 0.39 0.00 - 0.70 K/uL 11/23/2023 7:24 AM [employer] [facility] BASOPHILS ABSOLUTE 0.23(H) 0.00 - 0.20 K/uL 11/23/2023 7:24 AM [facility] [employer] SERVICES - . [facility] TOTAL CELLS COUNTED IN DIFF 110 11/23/2023 7:24 AM [facility] SERVICES - . [facility] RBC MORPHOLOGY abnormal 11/23/2023 7:24 AM [employer] [facility] - . [facility] PLATELET EST. Consistent w Count 11/23/2023 7:24 AM [employer] [facility] - . [facility] POLYCHROMASIA 1+ /hpf 11/23/2023 7:24 AM [facility] SERVICES - . [facility] Blood Venipuncture / Unknown 11/23/2023 6:18 AM CDT 11/23/2023 6:24 AM CDT Yaima Mitchell MD HEMATOLOGY ORDERABLE S COM [facility] LABORATORY SERVICES - [facility] CLIA# [id number] [address] [place] [address] * (ABNORMAL) CBC WITH DIFFERENTIAL (11/23/2023 6:18 AM CDT) Pathologist [facility] [place] WBC 8.5 4.0 - 9.8 K/uL 11/23/2023 6:46 AM CDT [facility] - . [facility] RBC 2.90(L) 4.50 - 5.40 M/uL 11/23/2023 6:46 AM CDT [facility] - . [facility] HEMOGLOBIN 8.9(L) 13.6 - 16.5 g/dL 11/23/2023 6:46 AM CDT [facility] - [facility] HEMATOCRIT 27.0(L) 40.0 - 48.0 % 11/23/2023 6:46 AM CDT [facility] - . [place] MCV 93.1 82.0 - 99.0 fL 11/23/2023 6:46 AM CDT [facility] - . [facility] MCH 30.7 27.2 - 32.6 pg 11/23/2023 6:46 AM CDT [facility] - . [facility] MCHC 33.0 31.5 - 35.5 g/dL 11/23/2023 6:46 AM CDT [facility] - . [facility] RDW 13.6 11.5 - 14.5 % 11/23/2023 6:46 AM CDT [facility] - . [facility] RDW-STDEV 44.3 37.1 - 48.7 fL 11/23/2023 6:46 AM CDT [facility] - . [facility] PLATELETS 295 140 - 350 K/uL 11/23/2023 6:46 AM CDT [facility] - . [facility] MPV 8.9(L) 9.3 - 12.4 fL 11/23/2023 6:46 AM CDT [facility] - . [facility] Blood Venipuncture / Unknown 11/23/2023 6:18 AM CDT 11/23/2023 6:24 AM CDT Yaima Mitchell MD HEMATOLOGY ORDERABLE S [facility] - [facility] CLIA# [id number] [address] [place] [address] * (ABNORMAL) MANUAL DIFFERENTIAL (11/22/2023 6:11 AM CDT) Pathologist [facility] [place] SEGMENTED NEUTROPHILS 71 % 11/22/2023 7:25 AM CDT [facility] LYMPHOCYTES RELATIVE 13(L) 43 - 53 % 11/22/2023 7:25 AM CDT [facility] - . [facility] ATYPICAL LYMPHOCYTES RELATIVE 3 0 - 5 % 11/22/2023 7:25 AM CDT [facility] - [facility] MONOCYTES RELATIVE 8 % 11/22/2023 7:25 AM CDT [facility] EOSINOPHILS RELATIVE 2 % 11/22/2023 7:25 AM CDT [facility] - . [facility] BASOPHILS RELATIVE 1 % 11/22/2023 7:25 AM CDT [facility] - . [facility] METAMYELOCYTES RELATIVE 2(H) <=0 % 11/22/2023 7:25 AM CDT [facility] - . [facility] MYELOCYTES - REL (DIFF) 1(H) <=0 % 11/22/2023 7:25 AM CDT [facility] - [facility] NEUTROPHILS ABSOLUTE COUNT 7.18(H) 1.90 - 7.00 K/uL 11/22/2023 7:25 AM CDT [facility] - [facility] LYMPHOCYTES ABSOLUTE 1.33 0.70 - 4.50 K/uL 11/22/2023 7:25 AM CDT [facility] MONOCYTES ABSOLUTE 0.80 0.10 - 1.30 K/uL 11/22/2023 7:25 AM CDT [facility] - [facility] EOSINOPHILS ABSOLUTE 0.18 0.00 - 0.70 K/uL 11/22/2023 7:25 AM CDT [facility] BASOPHILS ABSOLUTE 0.09 0.00 - 0.20 K/uL 11/22/2023 7:25 AM CDT [facility] TOTAL CELLS COUNTED IN DIFF 114 11/22/2023 7:25 AM CDT [facility] RBC MORPHOLOGY abnormal 11/22/2023 7:25 AM CDT [facility] - [facility] PLATELET EST. Consistent w Count 11/22/2023 7:25 AM CDT [facility] - [facility] PLATELET MORPHOLOGY abnormal 11/22/2023 7:25 AM CDT [facility] ANISOCYTOSIS 1+ /hpf 11/22/2023 7:25 AM CDT [facility] POIKILOCYTES 1+ /hpf 11/22/2023 7:25 AM CDT [facility] - [facility] POLYCHROMASIA 1+ /hpf 11/22/2023 7:25 AM CDT [facility] - [facility] OVALOCYTES 1+ /hpf 11/22/2023 7:25 AM CDT [facility] [facility] [place] Present 7:25 AM CDT [facility] Blood Venipuncture / Unknown 11/22/2023 6:11 AM CDT 11/22/2023 6:17 AM CDT Yaima Mitchell MD HEMATOLOGY ORDERABLE S COM [facility] - [facility]# [id number] [address] [facility] [address] * (ABNORMAL) CBC WITH DIFFERENTIAL (11/22/2023 6:11 AM CDT) WBC 10.1(H) 4.0 - 9.8 K/uL 11/22/2023 6:37 AM CDT [facility] RBC 2.64(L) 4.50 - 5.40 M/uL 11/22/2023 6:37 AM CDT [facility] HEMOGLOBIN 8.4(L) 13.6 - 16.5 g/dL 11/22/2023 6:37 AM CDT [facility] - [facility] HEMATOCRIT 25.2(L) 40.0 - 48.0 % 11/22/2023 6:37 AM CDT [facility] - . [facility] MCV 95.5 82.0 - 99.0 fL 11/22/2023 6:37 AM CDT [facility] - [facility] MCH 31.8 27.2 - 32.6 pg 11/22/2023 6:37 AM CDT [facility] - [facility] MCHC 33.3 31.5 - 35.5 g/dL 11/22/2023 6:37 AM CDT [facility] RDW 13.3 11.5 - 14.5 % 11/22/2023 6:37 AM CDT [facility] RDW-STDEV 45.1 37.1 - 48.7 fL 11/22/2023 6:37 AM CDT [facility] PLATELETS 335 140 - 350 K/uL 11/22/2023 6:37 AM CDT [facility] MPV 9.1(L) 9.3 - 12.4 fL 11/22/2023 6:37 AM CDT [facility] - [facility] Blood Venipuncture / Unknown 11/22/2023 6:11 AM CDT 11/22/2023 6:17 AM CDT Yaima Mitchell MD HEMATOLOGY ORDERABLE S [facility] - [facility]# [id number] [address] [facility] [place] [address] * (ABNORMAL) BASIC METABOLIC PANEL (11/22/2023 6:11 AM CDT) SODIUM 138 136 - 145 mmol/L 11/22/2023 6:56 AM CDT [facility] - . [facility] POTASSIUM 4.0 3.5 - 5.0 mmol/L 11/22/2023 6:56 AM CDT [facility] - [facility] CHLORIDE 107 98 - 107 mmol/L 11/22/2023 6:56 AM [facility] LABORATORY [facility] CO2 21(L) 22 - 29 mmol/L 11/22/2023 6:56 AM [facility] CALCIUM 8.5(L) 8.6 - 10.2 mg/dL 11/22/2023 6:56 AM [facility] LABORATORY [facility] BUN 12 6 - 20 mg/dL 11/22/2023 6:56 AM [facility] CREATININE 0.66(L) 0.67 - 1.17 mg/dL 11/22/2023 6:56 AM [facility] LABORATORY [facility] GLUCOSE 113(H) 74 - 99 mg/dL 11/22/2023 6:56 AM [facility] GFR >60 >=60 mL/min/1.7 3 sq meter 11/22/2023 6:56 AM [facility] LABORATORY [facility] Comment:eGFR calculated with 2020 CKD-EPI equation. Vegetarian diet, extremely high or low muscle mass, and may affect results. Cystatin C with Glomerular Filtration Rate is a suitable alternative for these patients. ANION GAP 10 8 - 16 mmol/L 11/22/2023 6:56 AM [facility] Blood Venipuncture / Unknown 11/22/2023 6:11 AM CDT 11/22/2023 6:17 AM CDT Jessica Angel MD CHEMISTRY ORDERABLES [facility] CLIA# [id number] [address] [facility] [place] [address] * (ABNORMAL) HEMOGLOBIN AND HEMATOCRIT (11/21/2023 12:21 PM CDT) HEMOGLOBIN 8.1(L) 13.6 - 16.5 g/dL 11/21/2023 12:37 PM CDT [facility] HEMATOCRIT 25.5(L) 40.0 - 48.0 % 11/21/2023 12:37 PM CDT [facility] Blood Venipuncture / Unknown 11/21/2023 12:21 PM CDT 11/21/2023 12:29 PM CDT Jessica Angel MD HEMATOLOGY ORDERABLE S [facility] CLIA# [id number] [address] [place] [id number] * CTA CHEST W WO CONTRAST (11/21/2023 [...] ??Interval cholecystectomy. DICTATION LOCATION: Location 1 - [facility] Narrative 11/21/2023 10:38 AM CDT EXAMINATION: Computed tomography angiography (CTA) of the chest without and with intravenous contrast with reformatted images DATE: 11/21/2023 10:16 AM HISTORY: Pulmonary embolism (PE) suspected, high prob. 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 ?? TECHNIQUE: CTA of the chest was performed prior to and following the uneventful intravenous administration of IOPAMIDOL 61 % INTRAVENOUS SOLUTION (MULTI-DOSE BULK PACK) Given:80 mL contrast according to standard protocol. 3-D reconstructions were created on a separate workstation by a human performance technologist and submitted for review. The examination [...] created on a separate workstation by a human performance technologist and submitted for review. The examination [...] Interval cholecystectomy. DICTATION LOCATION: Location 1 - [facility] Jessica Angel MD CT ORDERABLES * (ABNORMAL) MANUAL DIFFERENTIAL (11/21/2023 5:54 AM CDT) SEGMENTED NEUTROPHILS 70 % 11/21/2023 7:28 AM T [facility] - . [facility] LYMPHOCYTES RELATIVE 20(L) 43 - 53 % 11/21/2023 7:28 AM T [facility] MONOCYTES RELATIVE 7 % 11/21/2023 7:28 AM [facility] fos[facility]X [facility] - . [facility] EOSINOPHILS RELATIVE 2 % 11/21/2023 7:28 AM [facility] fos[facility]X SERVICES - . [facility] MYELOCYTES - REL (DIFF) 1(H) <=0 % 11/21/2023 7:28 AM [facility] SERVICES - . [facility] NEUTROPHILS ABSOLUTE COUNT 6.39 1.90 - 7.00 K/uL 11/21/2023 7:28 AM [facility] f[facility]X [facility] - [facility] LYMPHOCYTES ABSOLUTE 1.80 0.70 - 4.50 K/uL 11/21/2023 7:28 AM [facility] - [facility] MONOCYTES ABSOLUTE 0.66 0.10 - 1.30 K/uL 11/21/2023 7:28 AM [facility] - . [facility] EOSINOPHILS ABSOLUTE 0.16 0.00 - 0.70 K/uL 11/21/2023 7:28 AM [facility] f[facility] SERVICES - . [facility] TOTAL CELLS COUNTED IN DIFF 111 11/21/2023 7:28 AM [facility] - . [facility] RBC MORPHOLOGY abnormal 11/21/2023 7:28 AM [facility] f[facility] SERVICES - [facility] PLATELET EST. Consistent w Count 11/21/2023 7:28 AM [email or web address] ANISOCYTOSIS 1+ /hpf 11/21/2023 7:28 AM [facility] - . [facility] MICROCYTES 1+ /hpf 11/21/2023 7:28 AM [email or web address] - [facility] POLYCHROMASIA 1+ /hpf 11/21/2023 7:28 AM CDT [facility] - . [facility] HYPOCHROMIA 1+ /hpf 11/21/2023 7:28 AM CDT [facility] - [facility] Blood Venipuncture / Unknown 11/21/2023 5:54 AM CDT 11/21/2023 6:11 AM CDT Yaima Mitchell MD HEMATOLOGY ORDERABLE S COM [facility] - [facility] CLIA# [id number] [address] [place] [address] * (ABNORMAL) CBC WITH DIFFERENTIAL (11/21/2023 5:54 AM CDT) WBC 9.1 4.0 - 9.8 K/uL 11/21/2023 6:51 AM CDT [facility] - . [facility] RBC 2.31(L) 4.50 - 5.40 M/uL 11/21/2023 6:51 AM CDT [facility] - . [facility] HEMOGLOBIN 7.3(L) 13.6 - 16.5 g/dL 11/21/2023 6:51 AM CDT [facility] - . [facility] HEMATOCRIT 22.1(L) 40.0 - 48.0 % 11/21/2023 6:51 AM CDT [facility] - . [facility] MCV 95.7 82.0 - 99.0 fL 11/21/2023 6:51 AM CDT [facility] - . [facility] MCH 31.6 27.2 - 32.6 pg 11/21/2023 6:51 AM CDT [facility] - . [facility] MCHC 33.0 31.5 - 35.5 g/dL 11/21/2023 6:51 AM CDT [facility] - . [facility] RDW 13.0 11.5 - 14.5 % 11/21/2023 6:51 AM CDT [facility] - [facility] RDW-STDEV 44.4 37.1 - 48.7 fL 11/21/2023 6:51 AM CDT [facility] PLATELETS 324 140 - 350 K/uL 11/21/2023 6:51 AM T [facility] - [facility] MPV 9.2(L) 9.3 - 12.4 fL 11/21/2023 6:51 AM T [facility] Blood Venipuncture / Unknown 11/21/2023 5:54 AM CDT 11/21/2023 6:11 AM CDT Yaima Mitchell MD HEMATOLOGY ORDERABLE S [facility] - [facility] CLIA# [id number] [address] [place], [place] [address] * (ABNORMAL) COMPREHENSIVE METABOLIC PANEL (11/21/2023 5:54 AM CDT) SODIUM 139 136 - 145 mmol/L 11/21/2023 7:24 AM T [facility] - [facility] POTASSIUM 3.6 3.5 - 5.0 mmol/L 11/21/2023 7:24 AM T [facility] - [facility] CHLORIDE 107 98 - 107 mmol/L 11/21/2023 7:24 AM T [facility] CO2 21(L) 22 - 29 mmol/L 11/21/2023 7:24 AM T [facility] CALCIUM 8.1(L) 8.6 - 10.2 mg/dL 11/21/2023 7:24 AM T [facility] BUN 13 6 - 20 mg/dL 11/21/2023 7:24 AM T [facility] - [facility] CREATININE 0.68 0.67 - 1.17 mg/dL 11/21/2023 7:24 AM T [facility] GLUCOSE 117(H) 74 - 99 mg/dL 11/21/2023 7:24 AM T [facility] TOTAL PROTEIN 5.8(L) 6.7 - 8.6 g/dL 11/21/2023 7:24 AM [facility] ALBUMIN 3.0(L) 3.5 - 5.2 g/dL 11/21/2023 7:24 AM [facility] BILIRUBIN TOTAL 0.4 0.3 - 1.2 mg/dL 11/21/2023 7:24 AM [facility] ALKALINE PHOSPHATASE 206(H) 40 - 129 U/L 11/21/2023 7:24 AM [facility] AST 33 <41 U/L 11/21/2023 7:24 AM [facility] ALT 33 <42 U/L 11/21/2023 7:24 AM [facility] GFR >60 >=60 mL/min/1.7 3 sq meter 11/21/2023 7:24 AM [facility] Comment:eGFR calculated with 2020 CKD-EPI equation. Vegetarian diet, extremely high or low muscle mass, and may affect results. Cystatin C with Glomerular Filtration Rate is a suitable alternative for these patients. ANION GAP 11 8 - 16 mmol/L 11/21/2023 7:24 AM [facility] Blood Venipuncture / Unknown 11/21/2023 5:54 AM CDT 11/21/2023 6:11 AM T Narrative [facility] - 11/21/2023 7:24 AM CDT Samples containing indocyanine green cause interferences on Total and/or Direct Bilirubin and must not be measured. Yaima Mitchell MD CHEMISTRY [facility]ABLES [id number] [address] [place] [place] [address] * (ABNORMAL) BLOOD GAS ARTERIAL (11/20/2023 2:48 PM CDT) PH ARTERIAL 7.47(H) 7.35 - 7.45 11/20/2023 2:56 PM [facility] PCO2 ARTERIAL 32(L) 35 - 48 mm Hg 11/20/2023 2:56 PM CDT [facility] PO2 ARTERIAL 63(L) 83 - 108 mm Hg 11/20/2023 2:56 PM CDT [facility] HCO3 ARTERIAL 23 22 - 26 mmol/L 11/20/2023 2:56 PM T [facility] BASE EXCESS ABG -0.2 -2.0 - 3.0 mmol/L 11/20/2023 2:56 PM CDT [facility] O2 SAT EST ARTERIAL 94(L) 95 - 99 % 11/20/2023 2:56 PM CDT [facility] P/F RATIO ARTERIAL 300 11/20/2023 2:56 PM T [facility] OXYGEN MODE Room Air 11/20/2023 2:56 PM T [facility] FIO2 21.0 21.0 - 100.0 % 11/20/2023 2:56 PM CDT [facility] Blood, arterial Arterial / Unknown 2023 2:48 PM CDT 11/20/2023 2:53 PM CDT Jessica Angel MD ABG ORDERABLES [facility]# [id number] [facility] [place] [address] * XR CHEST PA OR AP 1 [...] right lung base. There is an associated ynvap-sp-lrcnylne right pleural effusion. ??No pneumothorax. Cardiac silhouette is stable. Distended air-filled bowel is seen. There are surgical clips in the right upper quadrant and a stimulator device over the left chest. ?? DICTATION LOCATION: Location 1 - [facility] Procedure Note Maura Jones MD - 11/20/2023 XR CHEST PA OR AP 1 VW DATE: 11/20/2023 12:54 PM HISTORY: Pneumonia COMPARISON: 11/13/2023 FINDINGS: There is a shallow degree of inspiration with new infiltrate/atelectasis at the right lung base. There is an associated [id number] right pleural effusion. No pneumothorax. Cardiac silhouette is stable. Distended air-filled bowel is seen. There are surgical clips in the right upper quadrant and a stimulator device over the left chest. DICTATION LOCATION: Location 1 - [facility] Jessica Angel MD DIAGNOSTIC IMAGING O RDERABLES * (ABNORMAL) CBC WITH DIFFERENTIAL (11/20/2023 3:38 AM CDT) [facility] WBC 9.6 4.0 - 9.8 K/uL 11/20/2023 3:53 AM CDT [facility] - [facility] RBC 2.89(L) 4.50 - 5.40 M/uL 11/20/2023 3:53 AM CDT [facility] - [facility] HEMOGLOBIN 8.9(L) 13.6 - 16.5 g/dL 11/20/2023 3:53 AM CDT [facility] - [facility] HEMATOCRIT 26.9(L) 40.0 - 48.0 % 11/20/2023 3:53 AM CDT [facility] - [facility] MCV 93.1 82.0 - 99.0 fL 11/20/2023 3:53 AM CDT [facility] - [facility] MCH 30.8 27.2 - 32.6 pg 11/20/2023 3:53 AM CDT [facility] - [facility] MCHC 33.1 31.5 - 35.5 g/dL 11/20/2023 3:53 AM CDT [facility] - [facility] RDW 12.7 11.5 - 14.5 % 11/20/2023 3:53 AM CDT [facility] - . [facility] RDW-STDEV 42.5 37.1 - 48.7 fL 11/20/2023 3:53 AM CDT [facility] [place] 357(H) 140 - 350 K/uL 11/20/2023 3:53 AM CDT [facility] MPV 8.8(L) 9.3 - 12.4 fL 11/20/2023 3:53 AM CDT [facility] NEUTROPHILS 63 % 11/20/2023 3:53 AM CDT [facility] LYMPHOCYTES 19 % 11/20/2023 3:53 AM CDT [facility] MONOCYTES 12 % 11/20/2023 3:53 AM CDT [facility] EOSINOPHILS 2 % 11/20/2023 3:53 AM CDT [facility] BASOPHILS 1 % 11/20/2023 3:53 AM CDT [facility] IMMATURE GRANULOCYTES 3 % 11/20/2023 3:53 AM CDT [facility] Comment:IG (Immature Granulo cyte) count includes Metamyelocytes, Myelocytes, and Promyelocytes NEUTROPHIL ABSOLUTE 6.08 1.90 - 7.00 K/uL 11/20/2023 3:53 AM CDT [facility] - . [facility] LYMPHOCYTE ABSOLUTE 1.79 0.70 - 4.50 K/uL 11/20/2023 3:53 AM CDT [facility] MONOCYTE ABSOLUTE 1.13 0.10 - 1.30 K/uL 11/20/2023 3:53 AM CDT [facility] EOSINOPHIL ABSOLUTE 0.23 0.00 - 0.70 K/uL 11/20/2023 3:53 AM CDT [facility] BASOPHILS ABSOLUTE 0.05 0.00 - 0.20 K/uL 11/20/2023 3:53 AM CDT [facility] IMMATURE GRANULOCYTES ABSOLUTE 0.33(H) 0.00 - 0.03 K/uL 11/20/2023 3:53 AM CDT [facility] Blood Venipuncture / Unknown 11/20/2023 3:38 AM CDT 11/20/2023 3:44 AM CDT Yaima Mitchell MD HEMATOLOGY ORDERABLE S [facility] SERVICES [facility] CLIA# [id number] [address] [facility] [place] [id number] * (ABNORMAL) COMPREHENSIVE METABOLIC PANEL (11/20/2023 3:38 AM CDT) SODIUM 140 136 - 145 mmol/L 11/20/2023 4:24 AM CDT [facility] - . [facility] POTASSIUM 3.9 3.5 - 5.0 mmol/L 11/20/2023 4:24 AM T [facility] - [facility] CHLORIDE 105 98 - 107 mmol/L 11/20/2023 4:24 AM T [facility] CO2 23 22 - 29 mmol/L 11/20/2023 4:24 AM T [facility] - [facility] CALCIUM 8.5(L) 8.6 - 10.2 mg/dL 11/20/2023 4:24 AM T [facility] - [facility] BUN 11 6 - 20 mg/dL 11/20/2023 4:24 AM T [facility] - [facility] CREATININE 0.60(L) 0.67 - 1.17 mg/dL 11/20/2023 4:24 AM T [facility] - [facility] GLUCOSE 117(H) 74 - 99 mg/dL 11/20/2023 4:24 AM T [facility] - [facility] [place] TOTAL PROTEIN 7.6 6.7 - 8.6 g/dL 11/20/2023 4:24 AM T [facility] - [facility] ALBUMIN 3.1(L) 3.5 - 5.2 g/dL 11/20/2023 4:24 AM T [facility] - [facility] BILIRUBIN TOTAL 0.4 0.3 - 1.2 mg/dL 11/20/2023 4:24 AM T [facility] ALKALINE PHOSPHATASE 213(H) 40 - 129 U/L 11/20/2023 4:24 AM T [facility] AST 24 <41 U/L 11/20/2023 4:24 AM [facility] ALT 28 <42 U/L 11/20/2023 4:24 AM T [facility] GFR >60 >=60 mL/min/1.7 3 sq meter 11/20/2023 4:24 AM T [facility] Comment:eGFR calculated with 2020 CKD-EPI equation. Vegetarian diet, extremely high or low muscle mass, and may affect results. Cystatin C with Glomerular Filtration Rate is a suitable alternative for these patients. ANION GAP 12 8 - 16 mmol/L 11/20/2023 4:24 AM [facility] Blood Venipuncture / Unknown 11/20/2023 3:38 AM CDT 11/20/2023 3:44 AM CDT [facility] - 11/20/2023 4:24 AM CDT Samples containing indocyanine green cause interferences on Total and/or Direct Bilirubin and must not be measured. Yaima Mitchell MD CHEMISTRY ORDERABLES [facility]# [id number] [address] [place] [id number] * (ABNORMAL) CBC WITH DIFFERENTIAL (11/19/2023 6:10 AM CDT) WBC 10.9(H) 4.0 - 9.8 K/uL 11/19/2023 6:53 AM T [facility] RBC 2.73(L) 4.50 - 5.40 M/uL 11/19/2023 6:53 AM T [facility] HEMOGLOBIN 8.6(L) 13.6 - 16.5 g/dL 11/19/2023 6:53 AM T [facility] HEMATOCRIT 25.7(L) 40.0 - 48.0 % 11/19/2023 6:53 AM CDT [facility] - . [facility] MCV 94.1 82.0 - 99.0 fL 11/19/2023 6:53 AM CDT [facility] - . [facility] MCH 31.5 27.2 - 32.6 pg 11/19/2023 6:53 AM CDT [facility] - [facility] MCHC 33.5 31.5 - 35.5 g/dL 11/19/2023 6:53 AM CDT [facility] - . [facility] RDW 12.9 11.5 - 14.5 % 11/19/2023 6:53 AM CDT [facility] - [facility] RDW-STDEV 44.0 37.1 - 48.7 fL 11/19/2023 6:53 AM CDT [facility] - [facility] PLATELETS 304 140 - 350 K/uL 11/19/2023 6:53 AM CDT [facility] - [facility] MPV 9.2(L) 9.3 - 12.4 fL 11/19/2023 6:53 AM CDT [facility] - . [facility] NEUTROPHILS 67 % 11/19/2023 6:53 AM CDT [facility] - . [facility] LYMPHOCYTES 16 % 11/19/2023 6:53 AM CDT [facility] - . [facility] MONOCYTES 12 % 11/19/2023 6:53 AM CDT [facility] - . [facility] EOSINOPHILS 3 % 11/19/2023 6:53 AM CDT [facility] - . [facility] BASOPHILS 1 % 11/19/2023 6:53 AM CDT [facility] - . [facility] IMMATURE GRANULOCYTES 2 % 11/19/2023 6:53 AM CDT [facility] - . [facility] Comment:IG (Immature Granulo cyte) count includes Metamyelocytes, Myelocytes, and Promyelocytes NEUTROPHIL ABSOLUTE 7.33(H) 1.90 - 7.00 K/uL 11/19/2023 6:53 AM CDT [facility] - . [facility] LYMPHOCYTE ABSOLUTE 1.71 0.70 - 4.50 K/uL 11/19/2023 6:53 AM CDT [facility] - [facility] MONOCYTE ABSOLUTE 1.26 0.10 - 1.30 K/uL 11/19/2023 6:53 AM CDT [facility] - [facility] EOSINOPHIL ABSOLUTE 0.35 0.00 - 0.70 K/uL 11/19/2023 6:53 AM CDT [facility] SERVICES [facility] BASOPHILS ABSOLUTE 0.05 0.00 - 0.20 K/uL 11/19/2023 6:53 AM CDT [facility] IMMATURE GRANULOCYTES ABSOLUTE 0.21(H) 0.00 - 0.03 K/uL 11/19/2023 6:53 AM CDT [facility] Blood Venipuncture / Unknown 11/19/2023 6:10 AM CDT 11/19/2023 6:34 AM CDT Yaima Mitchell MD HEMATOLOGY ORDERABLE S [facility]# [id number] [address] [place] [address] * (ABNORMAL) COMPREHENSIVE METABOLIC PANEL (11/19/2023 6:10 AM CDT) SODIUM 139 136 - 145 mmol/L 11/19/2023 7:18 AM T [facility] - [facility] POTASSIUM 3.9 3.5 - 5.0 mmol/L 11/19/2023 7:18 AM T [facility] - [facility] CHLORIDE 108(H) 98 - 107 mmol/L 11/19/2023 7:18 AM CDT [facility] - . [place] CO2 22 22 - 29 mmol/L 11/19/2023 7:18 AM T [facility] - . [facility] CALCIUM 8.4(L) 8.6 - 10.2 mg/dL 11/19/2023 7:18 AM T [facility] - . [facility] BUN 8 6 - 20 mg/dL 11/19/2023 7:18 AM T [facility] - . [facility] CREATININE 0.61(L) 0.67 - 1.17 mg/dL 11/19/2023 7:18 AM [facility] GLUCOSE 104(H) 74 - 99 mg/dL 11/19/2023 7:18 AM [facility]. [facility] TOTAL PROTEIN 5.9(L) 6.7 - 8.6 g/dL 11/19/2023 7:18 AM [facility]. [facility] ALBUMIN 3.1(L) 3.5 - 5.2 g/dL 11/19/2023 7:18 AM [facility] BILIRUBIN TOTAL 0.4 0.3 - 1.2 mg/dL 11/19/2023 7:18 AM [facility] ALKALINE PHOSPHATASE 161(H) 40 - 129 U/L 11/19/2023 7:18 AM [facility] AST 27 <41 U/L 11/19/2023 7:18 AM [facility] ALT 31 <42 U/L 11/19/2023 7:18 AM [facility] GFR >60 >=60 mL/min/1.7 3 sq meter 11/19/2023 7:18 AM [facility] Comment:eGFR calculated with 2020 CKD-EPI equation. Vegetarian diet, extremely high or low muscle mass, and may affect results. Cystatin C with Glomerular Filtration Rate is a suitable alternative for these patients. ANION GAP 9 8 - 16 mmol/L 11/19/2023 7:18 AM [facility] Blood Venipuncture / Unknown 11/19/2023 6:10 AM CDT 11/19/2023 6:34 AM [facility] - 11/19/2023 7:18 AM T Samples containing indocyanine green cause interferences on Total and/or Direct Bilirubin and must not be measured. Yaima Mitchell MD CHEMISTRY ORDERABLES [facility] CLIA# [id number] [address] [facility] [place] [id number] * (ABNORMAL) URINALYSIS WITH REFLEX MICROSCOPIC (11/18/2023 1:39 PM CDT) COLOR UA Yellow Pale to Dark Yellow 11/18/2023 2:39 PM CDT [facility] UA Clear Clear 11/18/2023 2:39 PM CDT [facility] - [facility] SPECIFIC GRAVITY UA 1.025 1.003 - 1.035 11/18/2023 2:39 PM T [facility] - [facility] PH UA 7.0 5.0 - 8.0 11/18/2023 2:39 PM CDT [facility] - [facility] LEUKOCYTE ESTERASE UA Negative Negative 11/18/2023 2:39 PM T [facility] - [facility] NITRITE UA Negative Negative 11/18/2023 2:39 PM T [facility] PROTEIN UA 1+(A) Negative 11/18/2023 2:39 PM T [facility] GLUCOSE UA Negative Negative 11/18/2023 2:39 PM CDT [facility] [facility] UA Negative Negative 11/18/2023 2:39 PM CDT [facility] UROBILINOGEN UA 0.2 <2.0 mg/dL 2:39 PM T [facility] BILIRUBIN UA Negative Negative 11/18/2023 2:39 PM CDT [facility] BLOOD UA 1+(A) Negative 11/18/2023 2:39 PM CDT [facility] WBC UA 3-5(A) 0 - 2 /hpf 11/18/2023 2:39 PM CDT [facility] RBC UA 0-2 0 - 2 /hpf 11/18/2023 2:39 PM T [facility] Comment:<2mL of urine sample received. Microscopic performed on uncentrifuged urine. Urine sediment results may be falsely decreased. BACTERIA UA 1+(A) Negative /hpf 11/18/2023 2:39 PM CDT [facility] Urine (Urine, indwelling (Chavez) catheter) Collection / Unknown 11/18/2023 1:39 PM CDT 11/18/2023 2:04 PM CDT Yaima Mitchell MD URINE ORDERABLES [facility] [id number] 5 SSharif [facility] [place] [address] * (ABNORMAL) CBC WITH DIFFERENTIAL (11/18/2023 4:35 AM CDT) Pathologist [facility] [place] WBC 11.1(H) 4.0 - 9.8 K/uL 11/18/2023 4:55 AM CDT [facility] SERVICES - [facility] RBC 2.99(L) 4.50 - 5.40 M/uL 11/18/2023 4:55 AM CDT [facility] LAB[facility] SERVICES - [facility] HEMOGLOBIN 9.3(L) 13.6 - 16.5 g/dL 11/18/2023 4:55 AM CDT [facility] SERVICES - [facility] HEMATOCRIT 28.4(L) 40.0 - 48.0 % 11/18/2023 4:55 AM CDT [facility] LAB[facility] SERVICES - [facility] MCV 95.0 82.0 - 99.0 fL 11/18/2023 4:55 AM CDT [facility] SERVICES - [facility] MCH 31.1 27.2 - 32.6 pg 11/18/2023 4:55 AM CDT [facility] SERVICES - [facility] MCHC 32.7 31.5 - 35.5 g/dL 11/18/2023 4:55 AM CDT [facility] SERVICES - [facility] RDW 13.0 11.5 - 14.5 % 11/18/2023 4:55 AM CDT [facility] - [facility] RDW-STDEV 44.8 37.1 - 48.7 fL 11/18/2023 4:55 AM CDT [facility] LABORAT[facility] SERVICES - . [facility] PLATELETS 338 140 - 350 K/uL 11/18/2023 4:55 AM CDT [facility] LABORATORY SERVICES - . [facility] MPV 8.6(L) 9.3 - 12.4 fL 11/18/2023 4:55 AM CDT [facility] LABORATORY SERVICES - . [facility] NEUTROPHILS 74 % 11/18/2023 4:55 AM CDT [facility] - . [facility] LYMPHOCYTES 10 % 11/18/2023 4:55 AM CDT [facility] LABORATORY SERVICES - . [facility] MONOCYTES 14 % 11/18/2023 4:55 AM CDT [facility] EOSINOPHILS 1 % 11/18/2023 4:55 AM CDT [facility] SERVICES - . [facility] BASOPHILS 0 % 11/18/2023 4:55 AM CDT [facility] LABORATORY SERVICES - . [facility] IMMATURE GRANULOCYTES 1 % 11/18/2023 4:55 AM CDT [facility]ORY SERVICES - . [facility] Comment:IG (Immature Granulo cyte) count includes Metamyelocytes, Myelocytes, and Promyelocytes NEUTROPHIL ABSOLUTE 8.19(H) 1.90 - 7.00 K/uL 11/18/2023 4:55 AM CDT [facility] LABORATORY SERVICES - . [facility] LYMPHOCYTE ABSOLUTE 1.11 0.70 - 4.50 K/uL 11/18/2023 4:55 AM CDT [facility] SERVICES - . [facility] MONOCYTE ABSOLUTE 1.58(H) 0.10 - 1.30 K/uL 11/18/2023 4:55 AM CDT [facility] LABORATORY SERVICES - . [facility] EOSINOPHIL ABSOLUTE 0.10 0.00 - 0.70 K/uL 11/18/2023 4:55 AM CDT [facility] LABORATORY SERVICES - . [facility] BASOPHILS ABSOLUTE 0.02 0.00 - 0.20 K/uL 11/18/2023 4:55 AM CDT [facility] LABORATORY SERVICES - . [facility] IMMATURE GRANULOCYTES ABSOLUTE 0.09(H) 0.00 - 0.03 K/uL 11/18/2023 4:55 AM T [facility] LABORATORY SERVICES - . [facility] Blood Venipuncture / Unknown 11/18/2023 4:35 AM CDT 11/18/2023 4:48 AM CDT Yaima Mitchell MD HEMATOLOGY ORDERABLE S [facility] SERVICES - [facility] CLIA# [id number] [address] [place] [address] * (ABNORMAL) COMPREHENSIVE METABOLIC PANEL (11/18/2023 4:35 AM CDT) [facility] SODIUM 139 136 - 145 mmol/L 11/18/2023 5:51 AM CDT [facility] POTASSIUM 3.9 3.5 - 5.0 mmol/L 11/18/2023 5:51 AM CDT [facility] CHLORIDE 108(H) 98 - 107 mmol/L 11/18/2023 5:51 AM CDT [facility] CO2 21(L) 22 - 29 mmol/L 11/18/2023 5:51 AM CDT [facility] CALCIUM 8.2(L) 8.6 - 10.2 mg/dL 11/18/2023 5:51 AM CDT [facility] BUN 6 6 - 20 mg/dL 11/18/2023 5:51 AM CDT [facility] CREATININE 0.55(L) 0.67 - 1.17 mg/dL 11/18/2023 5:51 AM CDT [facility] GLUCOSE 164(H) 74 - 99 mg/dL 11/18/2023 5:51 AM CDT [facility] TOTAL PROTEIN 5.8(L) 6.7 - 8.6 g/dL 11/18/2023 5:51 AM CDT [facility] ALBUMIN 3.3(L) 3.5 - 5.2 g/dL 11/18/2023 5:51 AM CDT [facility] BILIRUBIN TOTAL 0.3 0.3 - 1.2 mg/dL 11/18/2023 5:51 AM CDT [facility] ALKALINE PHOSPHATASE 110 40 - 129 U/L 11/18/2023 5:51 AM CDT [facility] AST 39 <41 U/L 11/18/2023 5:51 AM CDT [facility] ALT 35 <42 U/L 11/18/2023 5:51 AM CDT [facility] GFR >60 >=60 mL/min/1.7 3 sq meter 11/18/2023 5:51 AM CDT [facility] LAB[facility]ATORY [facility] Comment:eGFR calculated with 2020 CKD-EPI equation. Vegetarian diet, extremely high or low muscle mass, and may affect results. Cystatin C with Glomerular Filtration Rate is a suitable alternative for these patients. ANION GAP 10 8 - 16 mmol/L 11/18/2023 5:51 AM CDT [facility] Blood Venipuncture / Unknown 11/18/2023 4:35 AM CDT 11/18/2023 4:48 AM CDT Narrative [facility] - 11/18/2023 5:51 AM CDT Samples containing indocyanine green cause interferences on Total and/or Direct Bilirubin and must not be measured. Yaima Mitchell MD CHEMISTRY ORDERABLES Performing Organization Address City/[facility]/ZIP Co de Phone Number [facility] CLIA# [id number] [address] [place] [address] * (ABNORMAL) C-REACTIVE PROTEIN (11/18/2023 4:35 AM CDT) CRP 146.0(H) <5.0 mg/L 11/18/2023 5:51 AM CDT [facility] Blood Venipuncture / Unknown 11/18/2023 4:35 AM CDT 11/18/2023 4:48 AM CDT Jim Nguyen MD CHEMISTRY ORDERABLES [facility] CLIA# [id number] [address] [place] [address] * ECHOCARDIOGRAM W/ CONTRAST AGENT (11/17/2023 6:00 AM CDT) EJECTION FRACTION 701 INTERFACE SYSTEM 11/17/2023 5:34 AM CDT Narrative INTERFACE SYSTEM - 11/17/2023 8:38 AM CDT [facility] [address] [place] [address] [email or web address] Transthoracic Echocardiogram Patient: ?Curt Beebe: ?[id number] Study ID: ? ECHO COMPLETE - Gender: ? M : ?1985 Age: ?38 Race: ? CAU Height ?170.2cm Study Date: ? 11/17/2023 Weight: ? 76.1kg Access. 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 STUDY CONCLUSIONS: [...] ?Prepared and Electronically Authenticated Rob Almendarez MD [id number] Procedure Note Rob Almendarez MD - 11/17/[address] [address] [email or web address] Transthoracic Echocardiogram Patient: Curt Beebe Study ID: ECHO COMPLETE - Gender: Abraham : 1985 Age: 38 Race: SANDEEP Height 170.2cm Study Date: 11/17/2023 Weight: 76.1kg Access. 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 STUDY CONCLUSIONS: [...] AM. Prepared andElectronically Authenticated Rob Almendarez MD [id number] Evelio Miller MD US ORDERABLES INTERFACE SYSTEM Refer to clinic/hospital department * BLOOD CULTURE (11/17/2023 5:03 AM CDT) BLOOD CULTURE No growth 11/22/2023 6:44 AM CDT [facility] LABORATORY SERVICES [facility] Blood (Peripheral) Venipuncture / Unknown 11/17/2023 5:03 AM CDT 11/17/2023 5:11 AM CDT Evelio Miller MD 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 - [facility] ORDERABLES Performing Organization Address City/[facility] Co de Phone Number [facility] LABORATORY SERVICES [facility]# [id number] [address] [place] [address] * (ABNORMAL) COMPREHENSIVE METABOLIC PANEL (11/17/2023 5:03 AM CDT) SODIUM 141 136 - 145 mmol/L 11/17/2023 6:04 AM CDT [facility] - [facility] POTASSIUM 3.8 3.5 - 5.0 mmol/L 11/17/2023 6:04 AM CDT [facility] SERVICES - [facility] CHLORIDE 111(H) 98 - 107 mmol/L 11/17/2023 6:04 AM T [facility] LABORATORY SERVICES - . [facility] CO2 22 22 - 29 mmol/L 11/17/2023 6:04 AM T [facility] LAB[facility]ATORY SERVICES - [facility] CALCIUM 7.9(L) 8.6 - 10.2 mg/dL 11/17/2023 6:04 AM T [facility] - . [facility] BUN 7 6 - 20 mg/dL 11/17/2023 6:04 AM [facility] CREATININE 0.62(L) 0.67 - 1.17 mg/dL 11/17/2023 6:04 AM [facility] GLUCOSE 167(H) 74 - 99 mg/dL 11/17/2023 6:04 AM [facility] TOTAL PROTEIN 5.5(L) 6.7 - 8.6 g/dL 11/17/2023 6:04 AM [facility] ALBUMIN 3.2(L) 3.5 - 5.2 g/dL 11/17/2023 6:04 AM [facility] BILIRUBIN TOTAL 0.3 0.3 - 1.2 mg/dL 11/17/2023 6:04 AM [facility] ALKALINE PHOSPHATASE 266(H) 40 - 129 U/L 11/17/2023 6:04 AM [facility] AST 69(H) <41 U/L 11/17/2023 6:04 AM [facility] Comment:Hemolysis present. R esult may be falsely elevated. ALT 41 <42 U/L 11/17/2023 6:04 AM [facility] GFR >60 >=60 mL/min/1.7 3 sq meter 11/17/2023 6:04 AM [facility] Comment:eGFR calculated with 2020 CKD-EPI equation. Vegetarian diet, extremely high or low muscle mass, and may affect results. Cystatin C with Glomerular Filtration Rate is a suitable alternative for these patients. ANION GAP 8 8 - 16 mmol/L 11/17/2023 6:04 AM [facility] Blood Venipuncture / Unknown 11/17/2023 5:03 AM CDT 11/17/2023 5:11 AM [facility] - 11/17/2023 6:04 AM [facility] Samples containing indocyanine green cause interferences on Total and/or Direct Bilirubin and must not be measured. Yaima Mitchell MD CHEMISTRY ORDERABLES Performing Organization Address [facility] Co de Phone Number [facility]# [id number] [address] [place] [address] * (ABNORMAL) C-REACTIVE PROTEIN (11/17/2023 5:03 AM CDT) CRP 184.0(H) <5.0 mg/L 11/17/2023 6:04 AM CDT [facility] Blood Venipuncture / Unknown 11/17/2023 5:03 AM CDT 11/17/2023 5:11 AM CDT Iva Joseph PA-C CHEMISTRY ORDERABL ES Performing Organization Address [facility] Co de Phone Number [facility]# [id number] [address] [place] [address] * (ABNORMAL) PHOSPHORUS (11/17/2023 5:03 AM CDT) PHOSPHORUS 2.3(L) 2.5 - 4.5 mg/dL 11/17/2023 6:04 AM CDT [facility] Blood Venipuncture / Unknown 11/17/2023 5:03 AM CDT 11/17/2023 5:11 AM CDT Jim Nguyen MD CHEMISTRY ORDERABLES Performing Organization Address [facility]/ZIP Co de Phone Number [facility]# [id number] [address] [place] [address] * MAGNESIUM LEVEL (11/17/2023 5:03 AM CDT) MAGNESIUM 1.8 1.6 - 2.6 mg/dL 11/17/2023 6:04 AM CDT [facility] Blood Venipuncture / Unknown 11/17/2023 5:03 AM CDT 11/17/2023 5:11 AM CDT Jim Nguyen MD CHEMISTRY ORDERABLES Performing Organization Address City/[facility]/ZIP Co de Phone Number [facility] LABORATORY [facility] CLIA# [id number] [address] [place] [address] * BLOOD CULTURE (11/17/2023 4:55 AM CDT) [facility] BLOOD CULTURE No growth 11/22/2023 6:44 AM CDT [facility] LABORATORY SERVICES [facility] Blood (Peripheral) Venipuncture / Unknown 11/17/2023 4:55 AM CDT 11/17/2023 4:59 AM CDT Evelio Miller MD 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 - [facility] AL ORDERABLES Performing Organization Address [facility]/ZIP Co de Phone Number [facility] LAB[facility]ORY [facility] CLIA# [id number] [address] [place] [address] * (ABNORMAL) CBC WITH DIFFERENTIAL (11/17/2023 4:55 AM CDT) [facility] WBC 8.3 4.0 - 9.8 K/uL 11/17/2023 5:14 AM CDT [facility]ATORY SERVICES [facility] RBC 2.73(L) 4.50 - 5.40 M/uL 11/17/2023 5:14 AM CDT [facility]ATORY SERVICES [facility] HEMOGLOBIN 8.7(L) 13.6 - 16.5 g/dL 11/17/2023 5:14 AM CDT [facility]ATORY SERVICES [facility] HEMATOCRIT 25.3(L) 40.0 - 48.0 % 11/17/2023 5:14 AM CDT [facility] LABORATORY SERVICES [facility] MCV 92.7 82.0 - 99.0 fL 11/17/2023 5:14 AM CDT [facility] LAB[facility]ATORY SERVICES [facility] MCH 31.9 27.2 - 32.6 pg 11/17/2023 5:14 AM CDT [facility]AT[facility] SERVICES [facility] MCHC 34.4 31.5 - 35.5 g/dL 11/17/2023 5:14 AM CDT [facility] - [facility] RDW 13.0 11.5 - 14.5 % 11/17/2023 5:14 AM CDT [facility] - [facility] RDW-STDEV 43.6 37.1 - 48.7 fL 11/17/2023 5:14 AM CDT [facility] - [facility] PLATELETS 243 140 - 350 K/uL 11/17/2023 5:14 AM CDT [facility] - [facility] MPV 9.0(L) 9.3 - 12.4 fL 11/17/2023 5:14 AM CDT [facility] SERVICES - . [facility] NEUTROPHILS 78 % 11/17/2023 5:14 AM CDT [facility] SERVICES - . [facility] LYMPHOCYTES 10 % 11/17/2023 5:14 AM CDT [facility] SERVICES - . [facility] MONOCYTES 12 % 11/17/2023 5:14 AM CDT [facility] SERVICES - . [facility] EOSINOPHILS 0 % 11/17/2023 5:14 AM CDT [facility] SERVICES - . [facility] BASOPHILS 0 % 11/17/2023 5:14 AM CDT [facility] SERVICES - . [facility] IMMATURE GRANULOCYTES 1 % 11/17/2023 5:14 AM CDT [facility] SERVICES - . [facility] Comment:IG (Immature Granulo cyte) count includes Metamyelocytes, Myelocytes, and Promyelocytes NEUTROPHIL ABSOLUTE 6.44 1.90 - 7.00 K/uL 11/17/2023 5:14 AM CDT [facility] SERVICES - . [facility] LYMPHOCYTE ABSOLUTE 0.83 0.70 - 4.50 K/uL 11/17/2023 5:14 AM CDT [facility] SERVICES - . [facility] MONOCYTE ABSOLUTE 0.95 0.10 - 1.30 K/uL 11/17/2023 5:14 AM CDT [facility] - [facility] EOSINOPHIL ABSOLUTE 0.01 0.00 - 0.70 K/uL 11/17/2023 5:14 AM CDT [facility] SERVICES - . [facility] BASOPHILS ABSOLUTE 0.01 0.00 - 0.20 K/uL 11/17/2023 5:14 AM CDT [facility] IMMATURE GRANULOCYTES ABSOLUTE 0.04(H) 0.00 - 0.03 K/uL 11/17/2023 5:14 AM CDT [facility] Blood Venipuncture / Unknown 11/17/2023 4:55 AM CDT 11/17/2023 4:59 AM CDT Yaima Mitchell MD HEMATOLOGY ORDERABLE S [facility] CLIA# [id number] [address] [place] [address] * CT SINUS FACIAL BONES W CONTRAST [...] Technique. ?? DICTATION LOCATION: Location 1 - [facility] Narrative 11/17/2023 7:40 AM CDT EXAM: CT [...] Reconstruction Technique. DICTATION LOCATION: Location 1 - [facility] Evelio Miller MD CT ORDERABLES * (ABNORMAL) CBC WITH DIFFERENTIAL (11/16/2023 11:59 PM CDT) WBC 7.2 4.0 - 9.8 K/uL 11/17/2023 12:25 AM CDT [facility]ATORY SERVICES [facility] RBC 2.60(L) 4.50 - 5.40 M/uL 11/17/2023 12:25 AM CDT [facility] LABORATORY [facility] HEMOGLOBIN 8.4(L) 13.6 - 16.5 g/dL 11/17/2023 12:25 AM T [facility] LABORATORY SERVICES [facility] Comment:Significant change f rom prior result, correlate clinically and redraw if necessary. HEMATOCRIT 24.2(L) 40.0 - 48.0 % 11/17/2023 12:25 AM CDT [facility] SERVICES - . [facility] MCV 93.1 82.0 - 99.0 fL 11/17/2023 12:25 AM CDT [facility] MCH 32.3 27.2 - 32.6 pg 11/17/2023 12:25 AM CDT [facility] SERVICES - . [facility] MCHC 34.7 31.5 - 35.5 g/dL 11/17/2023 12:25 AM [employer] [facility] RDW 13.0 11.5 - 14.5 % 11/17/2023 12:25 AM CDT [facility] SERVICES - . [facility] RDW-STDEV 44.3 37.1 - 48.7 fL 11/17/2023 12:25 AM [employer] LABORATORY SERVICES - . [facility] PLATELETS 205 140 - 350 K/uL 11/17/2023 12:25 AM [employer] LABORATORY SERVICES - . [facility] MPV 8.9(L) 9.3 - 12.4 fL 11/17/2023 12:25 AM [employer] LABORATORY SERVICES - . [facility] NEUTROPHILS 85 % 11/17/2023 12:25 AM [employer] [facility]ATORY SERVICES - . [facility] LYMPHOCYTES 6 % 11/17/2023 12:25 AM [employer] [facility] - [facility] MONOCYTES 9 % 11/17/2023 12:25 AM [facility] [facility] EOSINOPHILS 0 % 11/17/2023 12:25 AM [employer] [facility]AT[facility] SERVICES - [facility] BASOPHILS 0 % 11/17/2023 12:25 AM [employer] LABORATORY SERVICES - . [facility] IMMATURE GRANULOCYTES 1 % 11/17/2023 12:25 AM [facility] [facility] - . [facility] Comment:IG (Immature Granulo cyte) count includes Metamyelocytes, Myelocytes, and Promyelocytes NEUTROPHIL ABSOLUTE 6.07 1.90 - 7.00 K/uL 11/17/2023 12:25 AM [facility] LYMPHOCYTE ABSOLUTE 0.40(L) 0.70 - 4.50 K/uL 11/17/2023 12:25 AM [employer] LABORATORY SERVICES - . [facility] MONOCYTE ABSOLUTE 0.62 0.10 - 1.30 K/uL 11/17/2023 12:25 AM CDT [facility] - [facility] EOSINOPHIL ABSOLUTE 0.01 0.00 - 0.70 K/uL 11/17/2023 12:25 AM CDT [facility] BASOPHILS ABSOLUTE 0.01 0.00 - 0.20 K/uL 11/17/2023 12:25 AM CDT [facility] - [facility] IMMATURE GRANULOCYTES ABSOLUTE 0.04(H) 0.00 - 0.03 K/uL 11/17/2023 12:25 AM CDT [facility] Blood Venipuncture / Unknown 11/16/2023 11:59 PM CDT 11/17/2023 12:02 AM CDT Renny Ray PA-C HEMATOLOGY ORD ERABLES [facility] CLIA# [id number] [address] [place] [address] * PATHOLOGY (11/16/2023 6:26 PM CDT) CASE REPORT Surgical Pathology Report ? Case: [id number] ? Authorizing Provider: ??Henok Artis MD Collected: ? 11/16/2023 06:26 PM ? Ordering Location: ? [facility] ?Received: ?11/18/2023 06:56 AM ? Operating Room ? Pathologist: ? Skylar Nevarez MD ? Specimen: ?Gallbladder, gallbladder ? 10:33 AM [facility] FINAL DIAGNOSIS Gallbladder, laparoscopic cholecystectomy: -Acute gangrenous cholecystitis with abscess formation. -No evidence of malignancy. 10:33 AM [email or web address] S DESCRIPTION Received in a single container labeled Curt Beebe and gallbladder, is a 9.8 x 6 [...] in the wall, consistent with possible necrosis. Reverser sections of gallbladder wall are submitted in cassettes A1 through A3, with A1 containing the en face cystic duct margin. [facility] 10:33 AM [facility] [employer] [facility] MICROSCOPIC DESCRIPTION The slides are labeled [id number] and Curt Beebe. Sections of gallbladder reveal thickened wall with diffuse acute inflammation, surface ulceration, gangrenous necrosis and abscess formation. A piece of adhesed the liver with acute and chronic inflammation is present. There are submucosal spindled to epithelioid cells, suggestive of reactive fibroblasts with surrounding vascular proliferation. The cells are negative for pancytokeratin and CD34, confirming reactive changes. 4 10:33 AM CDT [facility] OPERATIVE PROCEDURE 1: CHOLECYSTECTOMY LAPAROSCOPIC 2: CHOLECYSTOMY 4 10:33 AM CDT [facility] COMMENT Special stain, immunohistochemical, and/or in situ hybridization results are interpreted with controls that demonstrate appropriate staining reactions. Note on use of immunohistochemistry reagents and in situ hybridization probes: These tests were developed and their performance characteristics determined by [facility], Department of Laboratory Medicine. It has not [...] part or completely in the following laboratories: [facility], CLIA #[id number] [address] [place] [id number] [facility], CLIA #[id number] [address] [place] [address] [facility], CLIA #[id number] [address] [place] [address] This report was created with the [employer] voice-activated dictation system. Inherent to this system is the possibility of syntax, grammar, punctuation and other errors that could impact the interpretation of the report. If there are interpretative questions about aspects of this report, please contact the performing pathologist. 4 10:33 AM CDT [facility] Tissue ENTIRE GALLBLADDER / Unknown Collection / Unknown 11/16/2023 6:26 PM CDT 11/18/2023 6:56 AM CDT Henok Artis MD PATHOLOGY/CYTOL OGY ORDERABLES [facility] CLIA# [id number] [address] [facility] [place] [id number] * (ABNORMAL) CBC WITH DIFFERENTIAL (11/16/2023 3:53 AM CDT) [facility] WBC 9.3 4.0 - 9.8 K/uL 11/16/2023 4:22 AM CDT [facility] - . [facility] RBC 3.59(L) 4.50 - 5.40 M/uL 11/16/2023 4:22 AM CDT [facility] - . [facility] HEMOGLOBIN 11.4(L) 13.6 - 16.5 g/dL 11/16/2023 4:22 AM CDT [facility] - [facility] HEMATOCRIT 33.4(L) 40.0 - 48.0 % 11/16/2023 4:22 AM CDT [facility] - . [facility] MCV 93.0 82.0 - 99.0 fL 11/16/2023 4:22 AM CDT [facility] - . [facility] MCH 31.8 27.2 - 32.6 pg 11/16/2023 4:22 AM CDT [facility] - . [facility] MCHC 34.1 31.5 - 35.5 g/dL 11/16/2023 4:22 AM CDT [facility] - . [facility] RDW 12.8 11.5 - 14.5 % 11/16/2023 4:22 AM CDT [facility] - [facility] RDW-STDEV 44.1 37.1 - 48.7 fL 11/16/2023 4:22 AM CDT [facility] - . [facility] PLATELETS 249 140 - 350 K/uL 11/16/2023 4:22 AM CDT [facility] - . [facility] MPV 9.1(L) 9.3 - 12.4 fL 11/16/2023 4:22 AM CDT [facility] NEUTROPHILS 77 % 11/16/2023 4:22 AM CDT [facility] - [facility] LYMPHOCYTES 8 % 11/16/2023 4:22 AM CDT [facility] MONOCYTES 12 % 11/16/2023 4:22 AM CDT [facility] EOSINOPHILS 1 % 11/16/2023 4:22 AM CDT [facility] BASOPHILS 0 % 11/16/2023 4:22 AM CDT [facility] [facility] IMMATURE GRANULOCYTES 1 % 11/16/2023 4:22 AM CDT [facility] Comment:IG (Immature Granulo cyte) count includes Metamyelocytes, Myelocytes, and Promyelocytes NEUTROPHIL ABSOLUTE 7.18(H) 1.90 - 7.00 K/uL 11/16/2023 4:22 AM CDT [facility] LYMPHOCYTE ABSOLUTE 0.77 0.70 - 4.50 K/uL 11/16/2023 4:22 AM CDT [facility] MONOCYTE ABSOLUTE 1.15 0.10 - 1.30 K/uL 11/16/2023 4:22 AM CDT [facility] - . [facility] EOSINOPHIL ABSOLUTE 0.13 0.00 - 0.70 K/uL 11/16/2023 4:22 AM CDT [facility] - . [facility] BASOPHILS ABSOLUTE 0.02 0.00 - 0.20 K/uL 11/16/2023 4:22 AM T [facility] IMMATURE GRANULOCYTES ABSOLUTE 0.05(H) 0.00 - 0.03 K/uL 11/16/2023 4:22 AM T [facility] Blood Venipuncture / Unknown 11/16/2023 3:53 AM CDT 11/16/2023 3:58 AM CDT Yaima Mitchell MD HEMATOLOGY ORDERABLE S [id number] [facility] [place] [id number] * (ABNORMAL) COMPREHENSIVE METABOLIC PANEL (11/16/2023 3:53 AM CDT) [facility] SODIUM 142 136 - 145 mmol/L 11/16/2023 4:48 AM CDT [facility] SERVICES [facility] POTASSIUM 3.5 3.5 - 5.0 mmol/L 11/16/2023 4:48 AM [facility] CHLORIDE 110(H) 98 - 107 mmol/L 11/16/2023 4:48 AM [facility] CO2 21(L) 22 - 29 mmol/L 11/16/2023 4:48 AM [facility] CALCIUM 8.8 8.6 - 10.2 mg/dL 11/16/2023 4:48 AM [facility] BUN 11 6 - 20 mg/dL 11/16/2023 4:48 AM [facility] CREATININE 0.65(L) 0.67 - 1.17 mg/dL 11/16/2023 4:48 AM [facility] [employer] [facility] GLUCOSE 122(H) 74 - 99 mg/dL 11/16/2023 4:48 AM [facility] [employer] [facility] - . [facility] TOTAL PROTEIN 6.7 6.7 - 8.6 g/dL 11/16/2023 4:48 AM [facility] [employer] [facility] ALBUMIN 3.3(L) 3.5 - 5.2 g/dL 11/16/2023 4:48 AM [facility] BILIRUBIN TOTAL 0.5 0.3 - 1.2 mg/dL 11/16/2023 4:48 AM [facility] [employer] [facility] - . [facility] ALKALINE PHOSPHATASE 182(H) 40 - 129 U/L 11/16/2023 4:48 AM [facility] [employer] Screens [facility]. [facility] AST 14 <41 U/L 11/16/2023 4:48 AM [employer] [facility] ALT 14 <42 U/L 11/16/2023 4:48 AM [employer] [facility] - . [facility] GFR >60 >=60 mL/min/1.7 3 sq meter 11/16/2023 4:48 AM [facility] [employer] [facility]. [facility] Comment:eGFR calculated with 2020 CKD-EPI equation. Vegetarian diet, extremely high or low muscle mass, and may affect results. Cystatin C with Glomerular Filtration Rate is a suitable alternative for these patients. ANION GAP 11 8 - 16 mmol/L 11/16/2023 4:48 AM CDT [facility] Blood Venipuncture / Unknown 11/16/2023 3:53 AM CDT 11/16/2023 3:58 AM CDT Narrative [facility] - 11/16/2023 4:48 AM CDT Samples containing indocyanine green cause interferences on Total and/or Direct Bilirubin and must not be measured. Yaima Mitchell MD CHEMISTRY ORDERABLES [facility] CLIA# [id number] [address] [facility] [place] [address] * NM HEPATOBILIARY SCAN (11/15/2023 10:30 AM [...] Sanchez MD DICTATION LOCATION: 1 [place] ORDERABLES * (ABNORMAL) CBC WITH DIFFERENTIAL (11/15/2023 3:17 AM CDT) WBC 9.9(H) 4.0 - 9.8 K/uL 11/15/2023 4:16 AM CDT [facility] RBC 3.66(L) 4.50 - 5.40 M/uL 11/15/2023 4:16 AM CDT [facility] HEMOGLOBIN 11.8(L) 13.6 - 16.5 g/dL 11/15/2023 4:16 AM CDT [facility] HEMATOCRIT 34.6(L) 40.0 - 48.0 % 11/15/2023 4:16 AM CDT [facility] MCV 94.5 82.0 - 99.0 fL 11/15/2023 4:16 AM CDT [facility] MCH 32.2 27.2 - 32.6 pg 11/15/2023 4:16 AM CDT [facility] MCHC 34.1 31.5 - 35.5 g/dL 11/15/2023 4:16 AM CDT [facility] RDW 13.1 11.5 - 14.5 % 11/15/2023 4:16 AM CDT [facility] RDW-STDEV 45.3 37.1 - 48.7 fL 11/15/2023 4:16 AM CDT [facility] - [facility] PLATELETS 228 140 - 350 K/uL 11/15/2023 4:16 AM CDT [facility] MPV 9.6 9.3 - 12.4 fL 11/15/2023 4:16 AM CDT [facility] NEUTROPHILS 76 % 11/15/2023 4:16 AM CDT [facility] LYMPHOCYTES 10 % 11/15/2023 4:16 AM CDT [facility] MONOCYTES 13 % 11/15/2023 4:16 AM CDT [facility] EOSINOPHILS 1 % 11/15/2023 4:16 AM CDT [facility] BASOPHILS 0 % 11/15/2023 4:16 AM CDT [facility] IMMATURE GRANULOCYTES 0 % 11/15/2023 4:16 AM CDT [facility] NEUTROPHIL ABSOLUTE 7.50(H) 1.90 - 7.00 K/uL 11/15/2023 4:16 AM CDT [facility] LYMPHOCYTE ABSOLUTE 1.00 0.70 - 4.50 K/uL 11/15/2023 4:16 AM CDT [facility] MONOCYTE ABSOLUTE 1.23 0.10 - 1.30 K/uL 11/15/2023 4:16 AM CDT [facility] EOSINOPHIL ABSOLUTE 0.07 0.00 - 0.70 K/uL 11/15/2023 4:16 AM CDT [facility] BASOPHILS ABSOLUTE 0.03 0.00 - 0.20 K/uL 11/15/2023 4:16 AM CDT [facility] IMMATURE GRANULOCYTES ABSOLUTE 0.02 0.00 - 0.03 K/uL 11/15/2023 4:16 AM CDT [facility] - . [facility] Blood Venipuncture / Unknown 11/15/2023 3:17 AM CDT 11/15/2023 3:45 AM CDT Yaima Mitchell MD HEMATOLOGY ORDERABLE S [facility] - [facility]# [id number] [address] [place] [address] * (ABNORMAL) COMPREHENSIVE METABOLIC PANEL (11/15/2023 3:17 AM CDT) [facility] SODIUM 139 136 - 145 mmol/L 11/15/2023 4:50 AM CDT [facility] POTASSIUM 3.7 3.5 - 5.0 mmol/L 11/15/2023 4:50 AM CDT [facility] CHLORIDE 107 98 - 107 mmol/L 11/15/2023 4:50 AM CDT [facility] CO2 20(L) 22 - 29 mmol/L 11/15/2023 4:50 AM CDT [facility] CALCIUM 8.9 8.6 - 10.2 mg/dL 11/15/2023 4:50 AM CDT [facility] BUN 16 6 - 20 mg/dL 11/15/2023 4:50 AM CDT [facility] CREATININE 0.79 0.67 - 1.17 mg/dL 11/15/2023 4:50 AM CDT [facility] GLUCOSE 110(H) 74 - 99 mg/dL 11/15/2023 4:50 AM CDT [facility] TOTAL PROTEIN 7.0 6.7 - 8.6 g/dL 11/15/2023 4:50 AM CDT [facility] ALBUMIN 3.4(L) 3.5 - 5.2 g/dL 11/15/2023 4:50 AM CDT [facility] BILIRUBIN TOTAL 0.7 0.3 - 1.2 mg/dL 11/15/2023 4:50 AM CDT [facility] ALKALINE PHOSPHATASE 159(H) 40 - 129 U/L 11/15/2023 4:50 AM CDT [facility] AST 17 <41 U/L 11/15/2023 4:50 AM CDT [facility] ALT 17 <42 U/L 11/15/2023 4:50 AM CDT [facility] GFR >60 >=60 mL/min/1.7 3 sq meter 11/15/2023 4:50 AM CDT [facility] Comment:eGFR calculated with 2020 CKD-EPI equation. Vegetarian diet, extremely high or low muscle mass, and may affect results. Cystatin C with Glomerular Filtration Rate is a suitable alternative for these patients. ANION GAP 12 8 - 16 mmol/L 11/15/2023 4:50 AM CDT [facility] Blood Venipuncture / Unknown 11/15/2023 3:17 AM CDT 11/15/2023 3:45 AM CDT Narrative [facility] - 11/15/2023 4:50 AM CDT Samples containing indocyanine green cause interferences on Total and/or Direct Bilirubin and must not be measured. Yaima Mitchell MD CHEMISTRY ORDERABLES Performing Organization Address City/[facility]/ZIP Co de Phone Number [facility] CLIA# [id number] [address] [facility] [place] [address] * (ABNORMAL) C-REACTIVE PROTEIN (11/15/2023 3:17 AM CDT) Pathologist [facility] [place] CRP 300.0(H) <5.0 mg/L 11/15/2023 4:50 AM CDT [facility] Blood Venipuncture / Unknown 11/15/2023 3:17 AM CDT 11/15/2023 3:45 AM CDT Jim Nguyen MD CHEMISTRY ORDERABLES [facility] CLIA# [id number] [address] [facility] [place] [address] * (ABNORMAL) BLOOD GAS VENOUS (11/14/2023 7:28 PM CDT) PH, VENOUS 7.41 7.32 - 7.43 11/14/2023 7:32 PM CDT [facility] PCO2 VENOUS 31(L) 38 - 50 mm Hg 11/14/2023 7:32 PM T [facility] PO2 VENOUS 90(H) 25 - 40 mm Hg 11/14/2023 7:32 PM CDT [facility] HCO3 VENOUS 19(L) 22 - 29 mmol/L 7:32 PM T [facility] BASE EXCESS VENOUS -4.2 Reference Range Not Established mmol/L 11/14/2023 7:32 PM [facility] HEMOGLOBIN VENOUS 14.4 No Ref Range Estab g/dL 11/14/2023 7:32 PM T [facility] O2 SAT EST VENOUS 98(H) 40 - 70 % 11/14/2023 7:32 PM [facility]ORY [facility] Blood, venous Venipuncture / Unknown 11/14/2023 7:28 PM CDT 11/14/2023 6:41 PM CDT Jim Nguyen MD ABG ORDERABLES [facility]# [id number] [address] [place] [address] * LACTIC ACID (11/14/2023 5:23 PM CDT) LACTIC ACID 1.6 <=2.0 mmol/L 11/14/2023 5:50 PM CDT [facility] Blood Venipuncture / Unknown 11/14/2023 5:23 PM CDT 11/14/2023 5:26 PM CDT Jim Nguyen MD CHEMISTRY ORDERABLES [facility] CLIA# [id number] [address] [place] [address] * (ABNORMAL) CBC WITH DIFFERENTIAL (11/14/2023 3:44 AM CDT) WBC 16.7(H) 4.0 - 9.8 K/uL 11/14/2023 4:11 AM CDT [facility] RBC 4.05(L) 4.50 - 5.40 M/uL 11/14/2023 4:11 AM CDT [facility] HEMOGLOBIN 13.0(L) 13.6 - 16.5 g/dL 11/14/2023 4:11 AM CDT [facility] HEMATOCRIT 38.8(L) 40.0 - 48.0 % 11/14/2023 4:11 AM CDT [facility] MCV 95.8 82.0 - 99.0 fL 11/14/2023 4:11 AM CDT [facility] MCH 32.1 27.2 - 32.6 pg 11/14/2023 4:11 AM CDT [facility] MCHC 33.5 31.5 - 35.5 g/dL 11/14/2023 4:11 AM CDT [facility] RDW 13.4 11.5 - 14.5 % 11/14/2023 4:11 AM CDT [facility] RDW-STDEV 47.6 37.1 - 48.7 fL 11/14/2023 4:11 AM CDT [facility] PLATELETS 234 140 - 350 K/uL 11/14/2023 4:11 AM CDT [facility] MPV 9.6 9.3 - 12.4 fL 11/14/2023 4:11 AM CDT [facility] - [facility] NEUTROPHILS 80 % 11/14/2023 4:11 AM CDT [facility] LYMPHOCYTES 7 % 11/14/2023 4:11 AM CDT [facility] MONOCYTES 12 % 11/14/2023 4:11 AM CDT [facility] EOSINOPHILS 0 % 11/14/2023 4:11 AM CDT [facility] BASOPHILS 0 % 11/14/2023 4:11 AM CDT [facility] IMMATURE GRANULOCYTES 1 % 11/14/2023 4:11 AM CDT [facility] Comment:IG (Immature Granulo cyte) count includes Metamyelocytes, Myelocytes, and Promyelocytes NEUTROPHIL ABSOLUTE 13.42(H) 1.90 - 7.00 K/uL 11/14/2023 4:11 AM CDT [facility] LYMPHOCYTE ABSOLUTE 1.11 0.70 - 4.50 K/uL 11/14/2023 4:11 AM CDT [facility] MONOCYTE ABSOLUTE 2.03(H) 0.10 - 1.30 K/uL 11/14/2023 4:11 AM CDT [facility] EOSINOPHIL ABSOLUTE 0.01 0.00 - 0.70 K/uL 11/14/2023 4:11 AM CDT [facility] BASOPHILS ABSOLUTE 0.03 0.00 - 0.20 K/uL 11/14/2023 4:11 AM CDT [facility] IMMATURE GRANULOCYTES ABSOLUTE 0.11(H) 0.00 - 0.03 K/uL 11/14/2023 4:11 AM T [facility] Blood Venipuncture / Unknown 11/14/2023 3:44 AM CDT 11/14/2023 3:51 AM CDT Yaima Mitchell MD HEMATOLOGY ORDERABLE S [facility] SERVICES - [facility]# [id number] [address] [facility] [place] [address] * (ABNORMAL) COMPREHENSIVE METABOLIC PANEL (11/14/2023 3:44 AM CDT) SODIUM 133(L) 136 - 145 mmol/L 11/14/2023 4:44 AM CDT [facility] POTASSIUM 3.7 3.5 - 5.0 mmol/L 11/14/2023 4:44 AM CDT [facility] CHLORIDE 103 98 - 107 mmol/L 11/14/2023 4:44 AM [facility] CO2 19(L) 22 - 29 mmol/L 11/14/2023 4:44 AM [facility] CALCIUM 8.8 8.6 - 10.2 mg/dL 11/14/2023 4:44 AM [facility] LAB[facility]ATORY [facility] BUN 16 6 - 20 mg/dL 11/14/2023 4:44 AM [facility] CREATININE 0.64(L) 0.67 - 1.17 mg/dL 11/14/2023 4:44 AM [facility] GLUCOSE 142(H) 74 - 99 mg/dL 11/14/2023 4:44 AM [facility]. [facility] TOTAL PROTEIN 7.3 6.7 - 8.6 g/dL 11/14/2023 4:44 AM [email or web address] ALBUMIN 3.8 3.5 - 5.2 g/dL 11/14/2023 4:44 AM [facility] BILIRUBIN TOTAL 1.2 0.3 - 1.2 mg/dL 11/14/2023 4:44 AM [facility] ALKALINE PHOSPHATASE 192(H) 40 - 129 U/L 11/14/2023 4:44 AM [facility] AST 31 <41 U/L 11/14/2023 4:44 AM [facility] LABORATORY [facility] Comment:Hemolysis present. R esult may be falsely elevated. ALT 23 <42 U/L 11/14/2023 4:44 AM [facility]. [facility] GFR >60 >=60 mL/min/1.7 3 sq meter 11/14/2023 4:44 AM [email or web address] Comment:eGFR calculated with 2020 CKD-EPI equation. Vegetarian diet, extremely high or low muscle mass, and may affect results. Cystatin C with Glomerular Filtration Rate is a suitable alternative for these patients. ANION GAP 11 8 - 16 mmol/L 11/14/2023 4:44 AM [facility] Blood Venipuncture / Unknown 11/14/2023 3:44 AM CDT 11/14/2023 3:51 AM CDT [facility] - 11/14/2023 4:44 AM CDT Samples containing indocyanine green cause interferences on Total and/or Direct Bilirubin and must not be measured. Yaima Mitchell MD CHEMISTRY ORDERABLES Performing Organization Address [facility] Co de Phone Number [facility]# [id number] [address] [place] [address] * TROPONIN 6 HR, 5TH GEN (11/14/2023 3:44 AM CDT) TROPONIN T, 6 HR 5TH GEN 9 <=15 ng/L 11/14/2023 4:44 AM CDT [facility] Blood Venipuncture / Unknown 11/14/2023 3:44 AM CDT 11/14/2023 3:51 AM CDT [facility] - 11/14/2023 4:44 AM CDT Troponin Detectable but normal range. Unable to calculate delta. Delay in collection of timed specimen beyond recommended collection interval. Results must be interpreted in clinical context. Yaima Mitchell MD CHEMISTRY ORDERABLES Performing Organization Address [facility] Phone Number [facility]# [id number] [address] [place] [address] * (ABNORMAL) C-REACTIVE PROTEIN (11/13/2023 10:25 PM CDT) CRP 266.0(H) <5.0 mg/L 11/13/2023 11:41 PM CDT [facility] Blood Venipuncture / Unknown 11/13/2023 10:25 PM CDT 11/13/2023 10:40 PM CDT Iva Joseph PA-C CHEMISTRY ORDERABL ES Performing Organization Address [facility]/ZIP Co de Phone Number [facility] CLJOAO# [id number] [address] [place] [address] * TROPONIN 2 HR, 5TH GEN (11/13/2023 10:25 PM CDT) TROPONIN T, 2 HR 5TH GEN 6 <=15 ng/L 11/13/2023 11:24 PM CDT [facility] Blood Venipuncture / Unknown 11/13/2023 10:25 PM CDT 11/13/2023 10:40 PM CDT Narrative [facility] - 11/13/2023 11:24 PM CDT Troponin Detectable but normal range. Delay in collection of timed specimen beyond recommended collection interval. Results must be interpreted in clinical context. Unable to calculate delta. Gilberto Cote DO CHEMISTRY ORDERABLES Performing Organization Address [facility]/ZIP Co de Phone Number [facility]# [id number] [address] [place] [address] * CT CHEST ABDOMEN PELVIS WO CONT [...] of cholecystitis. DICTATION LOCATION: Location 1 - [facility] 11/13/2023 9:[address] CHEST, [...] of cholecystitis. DICTATION LOCATION: Location 1 - [facility] * POC LACTIC ACID (11/13/2023 6:57 PM CDT) [facility] LACTIC ACID POC 1.9 <=2.0 mmol/L 11/13/2023 6:57 PM CDT [facility] SPECIMEN SOURCE, GASES POC Blank 11/13/2023 6:57 PM CDT [facility] COMMENT, GASES POC Responsible Clinical Caregiver notified 11/13/2023 6:57 PM CDT [facility] Blood 11/13/2023 6:57 PM CDT 11/13/2023 6:58 PM CDT [facility]INT OF CARE TESTIN G [facility]# [id number] [address] [facility] [place] [address] * (ABNORMAL) BLOOD CULTURE PATHOGEN PCR PANEL (11/13/2023 6:51 PM CDT) [facility] Streptococcus spp by PCR DETECTED( A) Not Detected 11/14/2023 2:28 PM CDT [facility] Blood (Peripheral) Venipuncture / Unknown 11/13/2023 6:51 PM CDT 11/13/2023 7:02 PM CDT Narrative [facility] - 11/14/2023 2:28 PM CDT The Film [...] ??The following organisms are identified using the FilmArray BCID Panel: Gram Positive Bacteria Enterococcus faecalis [...] Cryptococcus neoformans/iveth Gilberto Cote DO 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 - GENER AL ORDERABLES Performing Organization Address City/[facility]/ZIP Co de Phone Number [facility] CLIA# [id number] [address] [place] [address] * (ABNORMAL) LIPASE (11/13/2023 6:51 PM CDT) LIPASE 10(L) 13 - 60 U/L 11/13/2023 9:35 PM CDT [facility] Blood Venipuncture / Unknown 11/13/2023 6:51 PM CDT 11/13/2023 7:03 PM CDT Gilberto Cote DO CHEMISTRY ORDERABLES Performing Organization Address [facility]/ZIP Co de Phone Number [facility] CLIA# [id number] [address] [place] [address] * (ABNORMAL) BLOOD CULTURE (11/13/2023 6:51 PM CDT) BLOOD CULTURE Abnormal Gram Stain(A) 11/16/2023 11:13 AM CDT [facility] BLOOD CULTURE Culture positive for Streptococcus viridans-sanguini s group(A) JERMAINE MCG/ML 11/16/2023 11:13 AM CDT [facility] Comment:Susceptibility on pr evious culture. Blood (Peripheral) Venipuncture / Unknown 11/13/2023 6:51 PM CDT 11/13/2023 7:04 PM CDT Narrative [facility] - 11/16/2023 11:13 AM CDT Results called [...] Cote DO 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 - GENER AL ORDERABLES Performing Organization Address City/State/[facility] Co de Phone Number [facility]# [id number] [address] [place] [address] * (ABNORMAL) BLOOD CULTURE (11/13/2023 6:51 PM CDT) BLOOD CULTURE Abnormal Gram Stain(A) 11/19/2023 3:09 PM CDT [facility] BLOOD CULTURE Culture positive for Streptococcus viridans-sanguini s group(A) JERMAINE MCG/ML 11/19/2023 3:09 PM CDT [facility] Blood (Peripheral) Venipuncture / Unknown 11/13/2023 6:51 PM CDT 11/13/2023 7:02 PM CDT Narrative [facility] - 11/19/2023 3:09 PM CDT Gram stain [...] mcg/mL: Intermediate Gilberto Cote DO 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 - GENER AL ORDERABLES [facility] CLIA# [id number] [address] [place] [address] * PROLACTIN (11/13/2023 6:51 PM CDT) PROLACTIN 5.5 4.0 - 15.2 ng/mL 11/13/2023 7:49 PM CDT [facility] Blood Venipuncture / Unknown 11/13/2023 6:51 PM CDT 11/13/2023 7:03 PM CDT Gilberto Cote DO CHEMISTRY ORDERABLES Performing Organization Address [facility]/ZIP Co de Phone Number [facility] CLIA# [id number] [address] [place] [address] * TROPONIN BASELINE, 5TH GEN (11/13/2023 6:51 PM CDT) TROPONIN T, BASELINE 5TH GEN <6 <=15 ng/L 11/13/2023 7:49 PM CDT [facility] Blood Venipuncture / Unknown 11/13/2023 6:51 PM CDT 11/13/2023 7:03 PM CDT Narrative [facility] - 11/13/2023 7:49 PM CDT Troponin Undetectable Gilberto Cote DO CHEMISTRY ORDERABLES Performing Organization Address City/[facility] Co de Phone Number [facility] [id number] [facility] CLIA# [id number] [address] [place] [address] * (ABNORMAL) BRAIN NATRIURETIC PEPTIDE, BNP OR PROBNP (11/13/2023 6:51 PM CDT) PROBNP, N TERMINAL 979(H) <124 pg/mL 11/13/2023 7:49 PM CDT [facility] Comment: INTERPRETIVE COMMENT based on diagnosis: Diagnostic [...] PM CDT Gilberto Cote DO CHEMISTRY ORDERABLES [facility] CLIA# [id number] [address] [place] [address] [address] * (ABNORMAL) COMPREHENSIVE METABOLIC PANEL (11/13/2023 6:51 PM CDT) SODIUM 134(L) 136 - 145 mmol/L 11/13/2023 7:49 PM CDT [facility] POTASSIUM 4.3 3.5 - 5.0 mmol/L 11/13/2023 7:49 PM CDT [facility] CHLORIDE 99 98 - 107 mmol/L 11/13/2023 7:49 PM CDT [facility] CO2 21(L) 22 - 29 mmol/L 11/13/2023 7:49 PM CDT [facility] CALCIUM 10.0 8.6 - 10.2 mg/dL 11/13/2023 7:49 PM CDT [facility] BUN 17 6 - 20 mg/dL 11/13/2023 7:49 PM CDT [facility] CREATININE 0.80 0.67 - 1.17 mg/dL 11/13/2023 7:49 PM CDT [facility] GLUCOSE 165(H) 74 - 99 mg/dL 11/13/2023 7:49 PM CDT [facility] - [facility] TOTAL PROTEIN 8.6 6.7 - 8.6 g/dL 11/13/2023 7:49 PM CDT [facility] - [facility] ALBUMIN 4.4 3.5 - 5.2 g/dL 11/13/2023 7:49 PM CDT [facility] BILIRUBIN TOTAL 1.1 0.3 - 1.2 mg/dL 11/13/2023 7:49 PM CDT [facility] ALKALINE PHOSPHATASE 212(H) 40 - 129 U/L 11/13/2023 7:49 PM CDT [facility] AST 32 <41 U/L 11/13/2023 7:49 PM CDT [facility] Comment:Hemolysis present. R esult may be falsely elevated. ALT 22 <42 U/L 11/13/2023 7:49 PM CDT [facility] GFR >60 >=60 mL/min/1.7 3 sq meter 11/13/2023 7:49 PM CDT [facility] Comment:eGFR calculated with 2020 CKD-EPI equation. Vegetarian diet, extremely high or low muscle mass, and may affect results. Cystatin C with Glomerular Filtration Rate is a suitable alternative for these patients. ANION GAP 14 8 - 16 mmol/L 11/13/2023 7:49 PM CDT [facility] Blood Venipuncture / Unknown 11/13/2023 6:51 PM CDT 11/13/2023 7:03 PM CDT [facility]ORATORY [facility] - 11/13/2023 7:49 PM CDT Samples containing indocyanine green cause interferences on Total and/or Direct Bilirubin and must not be measured. Gilberto Cote DO CHEMISTRY ORDERABLES [facility] CLIA# [id number] [address] [facility] [place] [address] * (ABNORMAL) CBC WITH DIFFERENTIAL (11/13/2023 6:51 PM CDT) WBC 19.9(H) 4.0 - 9.8 K/uL 11/13/2023 7:15 PM CDT [facility] RBC 4.39(L) 4.50 - 5.40 M/uL 11/13/2023 7:15 PM CDT [facility] HEMOGLOBIN 14.0 13.6 - 16.5 g/dL 11/13/2023 7:15 PM CDT [facility] HEMATOCRIT 41.5 40.0 - 48.0 % 11/13/2023 7:15 PM CDT [facility] MCV 94.5 82.0 - 99.0 fL 11/13/2023 7:15 PM CDT [facility] MCH 31.9 27.2 - 32.6 pg 11/13/2023 7:15 PM CDT [facility] MCHC 33.7 31.5 - 35.5 g/dL 11/13/2023 7:15 PM CDT [facility] RDW 13.4 11.5 - 14.5 % 11/13/2023 7:15 PM CDT [facility] RDW-STDEV 47.4 37.1 - 48.7 fL 11/13/2023 7:15 PM CDT [facility] PLATELETS 281 140 - 350 K/uL 11/13/2023 7:15 PM CDT [facility] MPV 10.1 9.3 - 12.4 fL 11/13/2023 7:15 PM CDT [facility] NEUTROPHILS 82 % 11/13/2023 7:15 PM CDT [facility] LYMPHOCYTES 5 % 11/13/2023 7:15 PM CDT [facility] - . [facility] MONOCYTES 12 % 11/13/2023 7:15 PM CDT [facility] - . [facility] EOSINOPHILS 0 % 11/13/2023 7:15 PM CDT [facility] BASOPHILS 0 % 11/13/2023 7:15 PM CDT [facility] IMMATURE GRANULOCYTES 1 % 11/13/2023 7:15 PM CDT [facility] - . [facility] Comment:IG (Immature Granulo cyte) count includes Metamyelocytes, Myelocytes, and Promyelocytes NEUTROPHIL ABSOLUTE 16.39(H) 1.90 - 7.00 K/uL 11/13/2023 7:15 PM CDT [facility] - . [facility] LYMPHOCYTE ABSOLUTE 0.94 0.70 - 4.50 K/uL 11/13/2023 7:15 PM CDT [facility] - . [facility] MONOCYTE ABSOLUTE 2.37(H) 0.10 - 1.30 K/uL 11/13/2023 7:15 PM CDT [facility] - . [facility] EOSINOPHIL ABSOLUTE 0.02 0.00 - 0.70 K/uL 11/13/2023 7:15 PM CDT [facility] BASOPHILS ABSOLUTE 0.03 0.00 - 0.20 K/uL 11/13/2023 7:15 PM CDT [facility] IMMATURE GRANULOCYTES ABSOLUTE 0.14(H) 0.00 - 0.03 K/uL 11/13/2023 7:15 PM CDT [facility] Blood Venipuncture / Unknown 11/13/2023 6:51 PM CDT 11/13/2023 7:03 PM CDT Gilberto Cote DO HEMATOLOGY ORDERABLE S [facility] CLIA# [id number] [address] [facility] [place] [address] * EKG 12-LEAD (11/13/2023 6:26 PM CDT) 11/13/2023 6:26 PM CDT Narrative INTERFACE SYSTEM - 11/14/2023 8:30 AM CDT ? [facility] ? [address] [place] [address] ? Test Date: ?2023-11-13 Pat Name: ? CURT BEEBE ?Department: ?? 40 ? Room: ? 7388 Gender: ? Male ? Systems Administration Analyst: ?? kim : ?1985 ? Requested By: GILBERTO TAMTA ?? Order Number: [id number] ? Reading MD: ?? Alvarez Chan ? Measurements Intervals ?[place] ? Rate: ? 66 ? P: ?13 MN: ? 148 ?QRS: ?16 QRSD: ? 99 ? T: ?7 QT: ? 361 ? QTc: ?379 ? Interpretive Statements Incomplete analysis due to missing data in precordial lead(s) Sinus rhythm Borderline T abnormalities, anterior leads Electronically Signed On 11-14-2023 8:30:05 CDT by Alvarez Chan Procedure Note Provider, 11/14/2023 [facility] [address], [place] [address] Test Date: 2023-11-13 Pat Name: CURT BEEBE Department: 40 Room: 7388 Gender: Male Systems Administration Analyst: kim : 1985 Requested By: GILBERTO COTE Order Number: [id number] Reading MD: Alvarez Chan Measurements Intervals [place] Rate: 66 P: 13 MN: 148 QRS: 16 QRSD: 99 T: 7 QT: 361 QTc: 379 Interpretive Statements Incomplete analysis due to missing data in precordial lead(s) Sinus rhythm Borderline T abnormalities, anterior leads Electronically Signed On 11-14-2023 8:30:05 CDT by Alavrez Chan Gilberto Cote DO ECG ORDERABLES INTERFACE SYSTEM Refer to clinic/hospital department * (ABNORMAL) RESPIRATORY PATHOGEN PCR PANEL (11/13/2023 6:11 PM CDT) Pathologist [facility] [place] COVID-19 PCR NOT DETECTED Not Detected 11/13/2023 7:57 PM CDT [facility] Respiratory syncytial virus by PCR DETECTED(A) Not Detected 11/13/2023 7:57 PM CDT [facility] Upper Respiratory ENTIRE NASOPHARYNX / Unknown Collection / Unknown 11/13/2023 6:11 PM CDT 11/13/2023 6:39 PM CDT [facility] fos4X [facility] - 11/13/2023 7:57 PM CDT [employer] [...] Mycoplasma pneumoniae Gilberto Cote DO 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 - GENER AL ORDERABLES [facility] fos4X [facility] CLIA# [id number] [address] [place] [address] documented in this encounter Visit Diagnoses Not [...] Sat11/29/23 at 0006, Indigestion, Routine bisacodyL (DULCOLAX) rectal suppository 10 mg 10 mg, Rectal, DAILY PRN, Starting on 11/20/23 at 1510, Until Sat11/29/23 at 0006, Constipation, Routine Given 11/20/2023 3:17 PM CDT 10 mg BUPivacaine-EPINEPHrine (SENSORCAINE-EPINEPHRINE) 0.5 %-1:200,000 injection INTRA-PROCEDURE PRN, Starting on 11/16/23 at 1634, Until 11/16/23 at 2005, Routine, Intra-op Given 11/16/2023 4:34 PM CDT 10 mL Opera tive Site busPIRone (BUSPAR) tablet 10 mg 10 mg, Oral, THREE TIMES DAILY, First dose on Emily 11/14/23 at 1200, Until Discontinued, Routine, Previous Med: busPIRone (BUSPAR) 10 mg Oral tablet - Orig Sig - Take 10 mg by mouth 3 times daily. Given 11/28/2023 5:40 PM CDT 10 mg Given 11/28/2023 1:45 PM CDT 10 mg Given 11/28/2023 5:59 AM CDT 10 mg cloBAZam (ONFI) tablet 40 mg 40 mg, Oral, DAILY AT BEDTIME, First dose on Sat11/14/23 at 2100, Until Discontinued, Routine, Previous Med: cloBAZam (ONFI) 10 mg Tablet - Orig Sig - Take 40 mg by mouth daily at bedtime. Given 11/27/2023 8:48 PM CDT 40 mg Given 11/26/2023 9:48 PM CDT 40 mg Given 11/25/2023 8:30 PM CDT 40 mg docusate sodium (COLACE) capsule 100 mg [...] Given 11/27/2023 6:45 PM CDT 20 mg hydrOXYzine HCL (ATARAX) tablet 25 mg 25 mg, Oral, THREE TIMES DAILY PRN, Starting on Sat11/14/23 at 0121, Until Sat11/29/23 at 0006, Itching, Routine, Previous Med: hydrOXYzine HCL (ATARAX) 25 mg tablet - Orig Sig - Take 25 mg by mouth 3 times daily as needed for Itching. Given 11/26/2023 11:00 AM CDT 25 mg lacosamide (VIMPAT) tablet 200 mg 200 mg, Oral, TWO TIMES DAILY, First dose on Sat11/14/23 at 0900, Until Discontinued, Routine, Previous Med: lacosamide (VIMPAT) 100 mg tablet - Orig Sig - Take 200 mg by mouth 2 times daily . Given 11/28/2023 6:43 PM CDT 200 mg Given 11/28/2023 6:03 AM CDT 200 mg Given 11/27/2023 6:38 PM CDT 200 mg lamoTRIgine (LaMICtal) tablet 150 mg [...] PM CDT 150 mg lamoTRIgine (LaMICtal) tablet 300 mg 300 mg, Oral, TWO TIMES DAILY, First dose on Sat11/14/23 at 0900, Until Discontinued, Routine, Previous Med: lamoTRIgine (LaMICtal) 150 mg tablet - Orig Sig - Take 300 mg by mouth 2 times daily. Given 11/28/2023 5:42 PM CDT 300 mg Given 11/28/2023 5:58 AM CDT 300 mg Given 11/27/2023 6:36 PM CDT 300 mg menthol (HALLS COUGH DROP) lozenge 5.8 mg 5.8 mg (1 Lozenge), Mouth/Throat, EVERY 2 HOURS PRN, Starting on Sat11/19/23 at 1611, Until Sat11/29/23 at 0006, Sore Throat, Routine Given 11/19/2023 4:22 PM CDT 5.8 mg naloxone (NARCAN) 0.4 mg/mL injection 0.1 mg [...] 6 HOURS PRN, Starting on Sat11/14/23 at 1305, Until Sat11/29/23 at 0006, Nausea/Emesis, [...] Given 11/26/2023 5:57 AM CDT 40 mg prochlorperazine (COMPAZINE) injection 5 mg 5 mg, [...] AM CDT 160 mg sodium chloride 0.9% irrigation solution INTRA-PROCEDURE PRN, Starting on 11/16/23 at 1700, Until 11/16/23 at 2005, Routine, Intra-op Given 11/16/2023 5:50 PM CDT 2,000 mL Opera tive Site Given 11/16/2023 5:00 PM CDT 1,000 mL Op erative Site Zonisamide (ZONEGRAN) capsule 400 mg 400 mg, Oral, TWO TIMES DAILY, First dose on Emily 11/14/23 at 0900, Until Discontinued, Routine, Previous Med: Zonisamide (ZONEGRAN) 100 mg capsule - Orig Sig - Take 400 mg by mouth 2 times daily. Given 11/28/2023 5:41 PM CDT 400 mg Given 11/28/2023 5:59 AM CDT 400 mg Given 11/27/2023 6:42 PM CDT 400 mg documented in this [...] Concepcion Sahu, MAURO)1841 (Given - Provider: Tammy Sena, MAURO) 0559 (Given - Provider: Gladys Mendoza, [...] Sahu RN) 1120 (Given - Provider: Monica Hull, MAURO) famotidine (PEPCID) tablet 20 mg 20 [...] Gladys Mendoza RN)1741 (Given - Provider: Monica Hull, MAURO) lacosamide (VIMPAT) 200 mg/20 mL injection 200 [...] mg by mouth 2 times daily . 0622 (Given - Provider: WESTLEY Lan)173 (Given - Provider: Naty Varner RN) 0500 (Not Given - Provider: Lincoln Paez RN - Reason: Clarify-Other (Comment) - Comment: pt swatted med out of RN's hand and refused to take)08 (Not Given - Provider: Concepcion Sahu RN - Reason: Other - See Comment - Comment: pt refusing to take)1838 (Given - Provider: Tammy Sena RN) 0603 (Given - Provider: Gladys Mendoza RN)1843 (Given - Provider: Monica Hull, MAURO) lamoTRIgine (LaMICtal) tablet 150 mg 150 mg, Oral, DAILY AFTER LUNCH, First dose on Sat11/14/23 at 1300, Until Discontinued, Routine, Previous Med: lamoTRIgine (LaMICtal) 150 mg tablet - Orig Sig - Take 150 mg by mouth daily after lunch. 1234 (Given - Provider: Ethel Salazar RN) 1320 (Given - Provider: Concepcion Sahu, MAURO) 1345 (Given - Provider: Monica Hull, MAURO) lamoTRIgine (LaMICtal) tablet 300 mg 300 mg, Oral, TWO TIMES DAILY, First dose on Sat11/14/23 at 0900, Until Discontinued, Routine, Previous Med: lamoTRIgine (LaMICtal) 150 mg tablet - Orig Sig - Take 300 mg by mouth 2 times daily. 0622 (Given - Provider: WESTLEY Lan)1732 (Given - Provider: Naty Varner RN) 0512 (Given - Provider: Lincoln Paez RN)1836 (Given - Provider: Tammy Sena, MAURO) 0558 (Given - Provider: Gladys Mendoza RN)1742 (Given - Provider: Monica Hull RN) naloxone (NARCAN) 0.4 mg/mL injection 0.1 mg 0.1 mg, IV, SEE ADMIN INSTRUCTIONS, Starting on Emily 11/14/23 at 0122, Until Sat11/29/23 at 0006, Routine naproxen (NAPROSYN) tablet 250 mg 250 mg, Oral, TWO TIMES DAILY WITH MEALS, First dose on Sat11/24/23 at 1130, Until Discontinued, Routine 1101 (Given - Provider: Ethel Salazar RN)1731 (Given - Provider: Naty Varner, MAURO) 1000 (Given - Provider: Concepcion Sahu, MAURO)1844 (Given - Provider: Tammy Sena, MAURO) 1120 (Given - Provider: Monica Hull RN)1742 (Given - Provider: Monica Hull RN) pantoprazole (PROTONIX) 40 mg in sodium chloride [...] Varner RN) 1000 (Given - Provider: Concepcion Sahu RN)1842 (Given - Provider: Tammy Sena RN) 0559 (Given - Provider: Gladys Mendoza RN)1741 (Given - Provider: Monica Hull RN) PRN Medication Order 11/26/2023 11/27/2023 11/28/2023 acetaminophen (TYLENOL) 325 mg/10.15 mL oral solution 650 mg 650 mg, Oral, EVERY 6 HOURS PRN, Starting on Sat11/14/23 at 1650, Until Sat11/29/23 at 0006, Pain, Mild, Pain, Mild / Temperature, fever, Routine 2147 (Given - Provider: Lincoln Paez RN) 1326 (Refused - Provider: Concepcion Sahu RN) aluminum - magnesium - simethicone (MYLANTA) 200-200-20 mg/5 mL oral suspension 30 mL 30 mL, Oral, EVERY 2 HOURS PRN, Starting on Sat11/14/23 at 0122, Until Sat11/29/23 at 0006, Indigestion, [...] documented as of this encounter Care Teams Director Child Abuse Therapy Relationship Specialty Start Date End Date Gulshan Mena DO [address] [place] [address] PCP - General 01/26/15 documented as of this encounter
--- OUTSIDE RECORDS SUMMARY | 2024-02-12 05:13 | XMS_ITS | Encounter Summary ---
Author Organization [employer] Address [address] [place] [address] Care Team Providers Care Construction Technology Instructor Name Role Phone Gulshan Mena DO Primary Care Provider [phone] Encounter Details Date Type Department Care Team [...] documented as of this encounter Care Teams Construction Technology Instructor Relationship Specialty Start Date End Date Gulshan Mena DO [address] [place] [id number] PCP - General 01/26/15 documented as of this encounter
--- OUTSIDE RECORDS SUMMARY | 2024-02-12 05:13 | XMS_ITS | Encounter Summary ---
Author Organization [employer] Address [address] [place] [address] Care Team Providers Care Biodiesel Division Manager Name Role Phone Gulshan Mena DO Primary Care Provider [phone] Encounter Details Date Type Department Care Team [...] documented as of this encounter Care Teams Biodiesel Division Manager Relationship Specialty Start Date End Date Gulshan Mena DO [address] [place] [id number] PCP - General 01/26/15 documented as of this encounter
--- OUTSIDE RECORDS SUMMARY | 2024-02-12 05:13 | XMS_ITS | Encounter Summary ---
Author Organization [facility] Address [address] [place] [address] Care Team Providers Care Milk Tester Name Role Phone Gulshan Mena DO Primary Care Provider [phone] Reason for Visit * Auth/Cert (Routine) Specialty Diagnoses / Procedures Referred By Padmini vogt Referred To Contact Emergency Medicine [facility] Emergency Dept [address] [place] [address] Referral ID Status Reason Start Date Expiration Date Visits Re quested Visits Authorized [id number] 1 1 Encounter Details Date Type Department Care Team (Late st Contact Info) Description 11/16/2023 3:31 PM CDT Anesthesia Event [facility] Operating Room [address] [place] [address] Olga Walters MD [address] [place] [address] Trevor Velazco MD [address] [place] [address] Anesthesia Record Procedure Summary Procedure Name Responsible Anesthesiologist Anesthesia Start Time Anesthesia Stop Time CHOLECYSTECTOMY LAPAROSCOPIC (Abdomen) Olga Walters MD 11/16/23 1531 11/16/232007 Events Date Time Event Comment 11/16/2023 1521 AN Equip Check Anesthesia eq uipment and materials checked in accordance with local policy. 1531 An Start 1534 In Room This event disp lays the In Room time documented in the Surgical Log. Deleting this event will not remove it from the log but will remove it from the Grid and Graph timeline. 1534 An Start Data 1540 Pre-Induction Immediate pre- induction anesthetic assessment performed. Vital signs as noted on graphic. 1557 An Induction 1559 An Intubation 1601 Anesthesia Ready 1634 Procedure Start This event d isplays the Procedure Start time documented in the Surgical Log. Deleting this event will not remove it from the log but will remove it from the Grid and Graph timeline. 1652 1712 Quick Note Converted to op en 1735 Quick Note Peep increased, recruitment breaths given, patient O2 sats back up 1841 Procedure Stop This event di splays the Procedure Stop time documented in the Surgical Log. Deleting this event will not remove it from the log but will remove it from the Grid and Graph timeline. 1846 An Extubation Emergence unev entful Awake, spontaneous respirations. Adequate muscle strength demonstrated Adequate tidal volume. Orapharynx suctioned. Extubated with positive pressure ventilation. 1855 Quick Note On pacu hold 2004 an stop data 2004 Out of Room This event disp lays the Out of Room time documented in the Surgical Log. Deleting this event will not remove it from the log but will remove it from the Grid and Graph timeline. 2007 An Stop 2007 Hand-off to Receiving [facility] rahul Medrupa Name Total fentaNYL (SUBLIMAZE) PF 50??mcg/mL injec tion 100 mcg lidocaine PF (XYLOCAINE MPF) 2% injectio n 2.5 mL propofol (DIPRIVAN) 10??mg/mL injection 150 mg rocuronium (ZEMURON) 10 mg/mL 5 mL injec tion 100 mg dexAMETHasone (DECADRON) 4 mg/mL injecti on 4 mg ondansetron (ZOFRAN) 4??mg/2 mL injectio n 4 mg famotidine (pf) (PEPCID) 20 mg/2 mL inje ction 20 mg sugammadex (BRIDION) 100 mg/mL injection 200 mg phenylephrine 1 mg/10 mL (100 mcg/mL) in jection 400 mcg HYDROmorphone (DILAUDID) 1 mg/mL injecti on 1 mg albumin, human (BUMINATE) 5 % injection 25 Gram 25 Gram sodium chloride 0.9% infusion 1,400 mL * Agents Name Air O2 * Blood No blood administrations on file. Lines, Drains, and Airways Type Details Placement Removal Peripheral IV Orientation: Anterio r, Left; Gauge: 18 gauge; Removal Indication: site symptomatic 11/13/23 1853 by Santi Marroquin RN 11/16/23 1638 by Leroy Hopkins AA Peripheral IV Pre-Hospital Start: No; Orientation: Right, Posterior; Location: Hand; Device: Angiocath; Gauge: 20 gauge; Needle Length: 1.16 in length; Insertion Attempts: 1; Removal Indication: observed not present; Removal Interventions: direct pressure, catheter intact 11/16/23 1539 by Leroy Hopkins AA 11/18/23 0445 by Mark Arevalo GN Endotracheal Airway Type: ETT; Size: 7; Attempts: 1; Verification: Auscultated bilateral breath sounds, Equal chest movement, Continuous waveform capnography 11/16/23 1559 by Leroy Hopkins AA 11/16/23 184 by Olga Walters MD Peripheral IV Pre-Hospital Start: No; Orientation: Right, Lower, Anterior; Location: Arm; Gauge: 18 gauge; Needle Length: 1.16 in length; Insertion Attempts: 1; Patient Tolerance: tolerated well; Removal Indication: site symptomatic; Removal Interventions: catheter intact 11/16/23 1603 by Leroy Hopkins AA 11/18/23 2019 by Yanci De La Rosa, RN Drain Present on Admission : No; Tube Number: #1; Orientation: Right:; Location: abdomen; Type: channel; Size (Fr): 9 Fr 11/16/23 1752 by Kasey Lee, MAURO 11/19/23 0000 by Glenna Gray GN Incision 11/16/23; 1816; surgical incision; other (comment); abdomen; 11/29/23; 1001 11/16/23 1816 by Kasey Lee, MAURO 11/29/23 1001 by PROVIDER, DISCHARGE PATIENT Indwelling Urethral Catheter 11/16/23; 1839; No; Indwelling double lumen catheter; latex; 16 Fr; inserted (Lee ADAMS); 1; 5; 10; 11/18/23; 1416 11/16/23 1839 by Kasey Lee, MAURO 11/18/23 1416 by Kanika Feliz GN Incision 11/16/23; 1843; surgical incision; Right; abdomen; 11/29/23; 1001 11/16/23 1843 by Kasey Lee RN 11/29/23 1001 by PROVIDER, DISCHARGE PATIENT documented in this encounter Social History Tobacco [...] on file documented as of this encounter OR Notes * Anesthesia Postprocedure Evaluation - Olga Walters MD - 11/16/2023 9:32 PM CDT Post Anesthesia Evaluation Vitals: Vitals Value Taken Time BP 145/81 11/16/232114 Temp 36.7 ??C 11/16/232007 Resp 20 11/16/232114 SpO2 97 % 11/16/232114 Pulse 95 11/16/232114 Heart Rate 95 bpm 11/16/232114 Pain Rating: Presence of Pain: sleeping (11/16/232114) Pain Rating: FACES (rest): hurts little more (11/15/232009) Pain Rating: FACES (activity): hurts little more (11/15/232009) Score: FLACC (rest): 0 (11/16/232114) Anesthesia Post Evaluation Patient location during evaluation: PACU Patient participation: patient was able to participate in the post op evaluation Level of consciousness: 0 = alert, responsive, answers simple questions appropriately, able to perform simple tasks Pain management: adequate Airway patency: patent Nausea or Vomiting: none Cardiovascular status: regular rate and rhythm Respiratory status: no respiratory symptoms Hydration status: well hydrated No notable events documented. Olga Walters MD Phase I Postanesthesia Evaluation Including Modified Karley Score Patient seen and evaluated: Modified Karley Score: Score: 8 (11/16/232106) COMMENTS: No apparent Anesthesia related complications RESPIRATORY FUNCTION: Respiration: able to breath and cough freely (11/16/232106) [2=able to breathe and cough freely, 1=dyspnea, limited breathing or tachypnea, 0=apnea or mechanicventilator] O2 Saturation: needs O2 inhalation to maintain O2 saturation greater than 90% (11/16/232106) [2=able to maintain O2 saturation greater than 92% on room air, 1=needs O2 inhalation to maintain O2 saturation greater than 90%, 0=O2 saturation less than 90% even with O2 supplement] Resp: 20 (11/16/232114)SpO2: 97 % (11/16/232114) CARDIOVASCULAR FUNCTION: Heart Rate: 95 bpm (11/16/232114) BP: (!) 145/81 (11/16/232114) Circulation: BP within 20% of preanesthetic level (11/16/232106) [2=BP within 20% of preanesthetic level, 1=BP within 20-49% of preanesthetic level, 0=BP within 50%of preanesthetic level] MENTAL STATUS, NEURO, ACTIVITY: PATIENT PARTICIPATION IN EVALUATION:yes Consciousness: arousable on calling (11/16/232106) [2=fully awake, 1=arousable on calling, 0=not responding] Activity: able to move 4 extremities voluntarily or on command (11/16/232106) [2=able to move 4 extremities voluntarily or on command, 1=able to move 2 extremities voluntarily or on command, 0=unable to move extremities voluntarily or on command] TEMPERATURE: Temp: 36.7 ??C (11/16/232007) PAIN: Pain Rating: FACES (rest): hurts little more (11/15/232009) Presence of Pain: sleeping (11/16/232114) NAUSEA AND VOMITING: no nausea and no vomiting Signs/Symptoms: emesis;projectile;green;containing undigested food (11/14/23 1030) POSTOPERATIVE HYDRATION: well hydrated Intake/Output Summary (Last 24 hours) at 11/16/20232131 Last data filed at 11/16/2023 1927 Gross per 24 hour Intake 1900 ml Output 410 ml Net 1490 ml Olga Walters MD 11/16/2023 9:32 PM * Anesthesia Handoff - Suri Red AA-C - 11/16/2023 8:08 PM CDT Post-Anesthetic transfer of care report elements to appropriate post-anesthesia recovery environment completed in accordance with procedure. I completed my handoff to the receiving nurse during which we: 1. Identified the patient 2. Identified the responsible provider 3. Reviewed the pertinent medical history 4. Discussed the surgical course 5. Reviewed intra-op anesthesia management and issues during anesthesia 6. Set expectations for post-procedure period 7. Orders as necessary and appropriate for continuation of care are present in Epic. 8. Allowed opportunity for questions and acknowledgement of understanding. Vital Signs: Vitals Value Taken Time BP 133/72 11/16/232007 Temp 36.7 ??C 11/16/232007 Resp 24 11/16/232007 SpO2 96 % 11/16/232007 Pulse 104 11/16/232007 Heart Rate 104 bpm 11/16/232007 8:13 PM TONO Hooper * Anesthesia Preprocedure Evaluation - Trevor Velazco MD - 11/16/2023 4:49 PM CDT Relevant Problems Neuro/Psych (+) Autism (+) Intractable Emmett-Gastaut syndrome (+) Seizure disorder, complex partial, with intractable epilepsy PULMONARY (+) Pneumonia due to COVID-19 virus Anesthesia Evaluation Patient summary reviewed Airway TM distance: >3 FB Neck ROM: full Dental - normal exam Pulmonary - negative ROS and normal exam breath sounds clear to auscultation Cardiovascular - negative ROS and normal exam Rhythm: regular Rate: normal ROS comment: Hx severer autism nonverbal vagal n stim for seizure hx strep and rsv EKG sr nsstt No cp angina, no known ASCAD, adequate et Neuro/Psych (+) seizures GI/Hepatic/Renal - negative ROS Endo/Other - negative ROS Abdominal Anesthesia History Anesthesia Plan ASA Final: 3 General Intravenous induction Oral ETT airway maintenance NPO status > 6 hours Anesthetic plan and risks discussed with Patient. Plan discussed with Surgeon and Other. Post-op Pain Control Plan to use IV or IM medication for post-op pain control. Smoking Compliance patient did not smoke on day of surgery * Anesthesia Procedure Notes - Leroy Hopkins AA - 11/16/2023 4:38 PM CDT Associated Order(s): Airway Airway Date/Time: 11/16/2023 3:59 PM Location: OR Plan: routine intubation Patient Identity Confirmed by: Verbally with patient and armband Airway: not difficult Staffing Performed: Student NA/AA Authorized by: Trevor Velazco MD Performed by: Leroy Hopkins AA Indications and Patient Condition: Indications for Airway Management: Anesthesia Sedation Level: general anesthesia Preoxygenated: yes Patient Position: Sniffing Mask Difficulty Assessment: 1 - vent by mask Plan to extubate at end of case: Yes Final Airway Details: Final Airway Type: Endotracheal airway ETT Cuffed: Yes Cuff Volume (mL): 6 Technique Used for Successful ETT Placement: Video laryngoscopy Devices/Methods Used in Placement: Intubating stylet Blade Size: 3 Insertion Site: Oral ETT Size (mm): 7.0 Video Laryngoscopy Devices: GlideScope Measured from: Teeth ETT to Teeth (cm): 22 Tube secured with: Tape Placement Verified by: auscultation, end tidal CO2 and chest rise Cormack-Lehane Classification: Grade I - full view of glottis Number of Attempts at Approach: 1 Additional Procedure Information: atraumatic and dentition unchanged documented in this encounter Plan of Treatment Not on file documented as of this encounter Procedures Procedure Name Priority Date/Time Associated Diagnosis Comments ME ANES INSERT ENDOTRACHEAL AIRWAY Routine 11/16/2023 3:59 PM CDT documented in this encounter Results * ME ANES INSERT ENDOTRACHEAL AIRWAY (11/16/2023 3:59 PM CDT) Narrative Leroy Hopkins AA - 11/16/2023 3:59 PM CDT Leroy Hopkins AA ? 11/16/2023 ??4:39 PM Airway Date/Time: 11/16/2023 3:59 PM Location: OR Plan: routine intubation Patient Identity Confirmed by: ??Verbally with patient and armband Airway: not difficult Staffing Performed: Student NA/AA Authorized by: Trevor Velzaco MD ?? Performed by: Leroy Hopkins AA [...] Trevor Velazco MD PROCEDURE/MINOR SURG ICAL ORDERABLES documented in this encounter Visit Diagnoses Not on filedocumented in this encounter Administered Medications Inactive Administered Medications - up to 3 most recent administrations Medication Order MAR Action Action Date Dose Rate Site albumin, human (BUMINATE) 5 % injection 25 Gram 25 Gram, IV, ONE TIME ONLY, 1 dose, On 11/16/23 at 1800, Routine, Anesthesia Intra-op New Bag 11/16/2023 5:50 PM CDT 25 Grams dexAMETHasone (DECADRON) 4 mg/mL injection IV, INTRA-PROCEDURE PRN, Starting on 11/16/23 at 1606, Until 11/16/23 at 2012, Routine, Anesthesia Intra-op Given 11/16/2023 4:06 PM CDT 4 mg famotidine PF (PEPCID) 20 mg/2 mL injection IV, INTRA-PROCEDURE PRN, Starting on 11/16/23 at 1606, Until 11/16/23 at 2012, Routine, Anesthesia Intra-op Given 11/16/2023 4:06 PM CDT 20 mg fentaNYL PF (SUBLIMAZE) 50 mcg/mL injection IV, INTRA-PROCEDURE PRN, Starting on 11/16/23 at 1543, Until 11/16/23 at 2012, Routine, Anesthesia Intra-op Given 11/16/2023 4:34 PM CDT 50 mcg Given 11/16/2023 3:43 PM CDT 50 mcg HYDROmorphone (PF) (DILAUDID) injection IV, INTRA-PROCEDURE PRN, Starting on 11/16/23 at 1711, Until 11/16/23 at 2012, Routine, Anesthesia Intra-op Given 11/16/2023 5:57 PM CDT 0.5 mg Given 11/16/2023 5:11 PM CDT 0.5 mg lidocaine PF 2% (XYLOCAINE MPF) injection Infiltration, INTRA-PROCEDURE PRN, Starting on 11/16/23 at 1555, Until 11/16/23 at 2012, Routine, Anesthesia Intra-op Given 11/16/2023 3:55 PM CDT 2.5 mL ondansetron (ZOFRAN) 4 mg/2 mL injection IV, INTRA-PROCEDURE PRN, Starting on 11/16/23 at 1606, Until 11/16/23 at 2012, Routine, Anesthesia Intra-op Given 11/16/2023 4:06 PM CDT 4 mg phenylephrine syringe IV, INTRA-PROCEDURE PRN, Starting on 11/16/23 at 1622, Until 11/16/23 at 2012, Routine, Anesthesia Intra-op Given 11/16/2023 6:03 PM CDT 100 mcg Given 11/16/2023 5:42 PM CDT 100 mcg Given 11/16/2023 4:22 PM CDT 100 mcg propofoL (DIPRIVAN) injection IV, INTRA-PROCEDURE PRN, Starting on 11/16/23 at 1557, Until 11/16/23 at 2012, Anesthesia Intra-op Given 11/16/2023 3:57 PM CDT 150 mg rocuronium syringe IV, INTRA-PROCEDURE PRN, Starting on 11/16/23 at 1557, Until 11/16/23 at 2012, Routine, Anesthesia Intra-op Given 11/16/2023 5:44 PM CDT 10 mg Given 11/16/2023 5:12 PM CDT 20 mg Given 11/16/2023 4:52 PM CDT 20 mg sodium chloride 0.9% infusion IV, INTRA-PROCEDURE CONTINUOUS PRN, Starting on 11/16/23 at 1531, Until 11/16/23 at 2012, Routine, Anesthesia Intra-op New Bag 11/16/2023 3:31 PM CDT sugammadex (BRIDION) 100 mg/mL injection IV, INTRA-PROCEDURE PRN, Starting on 11/16/23 at 1820, Until 11/16/23 at 2012, Routine, Anesthesia Intra-op Given 11/16/2023 6:20 PM CDT 200 mg documented in this encounter Additional Health Concerns Infection Onset Date Last Indicated Resolved Time Respiratory Syncytial Virus (RSV) 11/13/2023 024 12/11/2023 1:16 AM CDT documented as of this encounter Care Teams Milk Tester Relationship Specialty Start Date End Date Gulshan Mena DO [address] [place] [address] PCP - General 01/26/15 documented as of this encounter
--- OUTSIDE RECORDS SUMMARY | 2024-02-12 05:13 | XMS_ITS | Encounter Summary ---
Author Organization [facility] Address [address] [place] [address] Care Team Providers Care Mail Room Clerk Name Role Phone Gulshan Mena DO Primary Care Provider [phone] Encounter Details Date Type Department Care Team (Late st Contact Info) Description 07/18/2023 External Device Data [facility] ABSTRACTION Provider, Abstract [...] on filedocumented in this encounter Care Teams Mail Room Clerk Relationship Specialty Start Date End Date Gulshan Mena DO [facility] [address] [place] [address] PCP - General 01/26/15 documented as of this encounter
--- OUTSIDE RECORDS SUMMARY | 2024-02-12 05:13 | XMS_ITS | Encounter Summary ---
Author Organization [facility] Address [address] [place] [address] Care Team Providers Care Professor Of Environmental Science Name Role Phone Gulshan Mena DO Primary Care Provider [phone] Encounter Details Date Type Department Care Team (Late st Contact Info) Description 07/30/2023 External Device Data [facility] ABSTRACTION Provider, Abstract [...] on filedocumented in this encounter Care Teams Professor Of Environmental Science Relationship Specialty Start Date End Date Gulshan Mena DO [facility] [address] [place] [address] PCP - General 01/26/15 documented as of this encounter
--- OUTSIDE RECORDS SUMMARY | 2024-02-12 05:14 | XMS_ITS | Encounter Summary ---
Author Organization [facility] Address [address] [place] [address] Care Team Providers Care County Sheriff Name Role Phone Gulshan Mena DO Primary Care Provider [phone] Encounter Details Date Type Department Care Team (Late st Contact Info) Description 04/26/2023 External Device Data [facility] ABSTRACTION Provider, Abstract [...] emotionally and/or physically? Patient unable to answer 04/19/2023 Sex and Gender Information Value Date Recorded Sex Assigned at Not on file Gender Identity Not on file Sexual Orientation Not on file documented as of this encounter Plan of Treatment Not on file documented as of this encounter Visit Diagnoses Not on filedocumented in this encounter Care Teams County Sheriff Relationship Specialty Start Date End Date Gulshan Mena DO [facility] [address] [place] [address] PCP - General 01/26/15 documented as of this encounter
--- OUTSIDE RECORDS SUMMARY | 2024-02-12 05:14 | XMS_ITS | Encounter Summary ---
Author Organization [facility] Address [address] [place] [address] Care Team Providers Care Gas Appliance Installer Name Role Phone Gulshan Mena DO Primary Care Provider [phone] Reason for Visit * Reason Comments Seizure * Auth/Cert (Routine) Specialty Diagnoses / Procedures Referred By Contkellee t Referred To Contact Emergency Medicine [facility] Emergency Dept [address] [place] [address] Referral ID Status Reason Start Date Expiration Date Visits Re quested Visits Authorized [id number] 1 1 Encounter Details Date Type Department Care Team (Late st Contact Info) Description 04/19/2023 7:35 AM WELLNESS NURSE - 04/19/2023 10:51 AM [facility] Emergency [facility] Emergency Department [address] [place] [address] [place] [address] [place] [address] Seizure (Primary Dx) Discharge Disposition: Home or [...] Sign Reading Time Taken Comments Blood Pressure 110/56 04/19/2023 10:15 AM WELLNESS NURSE Pulse 75 04/19/2023 8:45 AM WELLNESS NURSE Temperature 36.8 ??C (98.2 ??F) 04/19/2023 7:36 AM CS T Respiratory Rate 16 04/19/2023 10:50 AM WELLNESS NURSE Oxygen Saturation 97% 04/19/2023 8:45 AM WELLNESS NURSE Inhaled Oxygen Concentration - - Weight 79.7 kg (175 lb 9.6 oz) 04/19/2023 7:36 A M WELLNESS NURSE Height - - Body Mass Index 27.5 08/08/2022 11:31 AM CDT documented in this encounter Discharge Instructions * Discharge Instructions* Mickey Galvan, - 04/19/2023 9:32 AM WELLNESS NURSE Images from the original note were not included. The examination and treatment that you received in the emergency department has been given on an emergent basis only. Please be aware that the diagnoses that you received are preliminary only and your condition may gear changer time. Please follow up with your primary care physician in 1-2 days. Should your condition worsen or new symptoms develop, or you do not recover as expected, immediately contact your physician or return to the emergency department. Please know that we are always here if you need us. After discharge, you will receive a survey regarding your care. Trust in the Care specifically reviews my performance as your physician. The rest of the survey will be reviewing the facility and its operations. All of the information received is important and has ramifications for those responsible. Please let us know either prior to discharge or in the comments of the survey if for some reasonyou cannot give the highest possible rating for Trust in my care. Thank you for allowing me to take care of you today! Mickey Galvan, If you need assistance getting established with a primary care provider for follow up and/or management of prescriptions, regardless of insurance status, call Anabel Mccann, Community Grain Drier Operator at [phone]. If you need to follow up or establish care with a primary doctor, dispatcher ship pilot, or MIXER BLENDER provider,you can make an appointment online using [employer] Available Scheduling. Go to [employer] Click the First Available Scheduling link in the top right corner. (See below) [facility], pediatrics or women???s health to make an appointment. In most cases, you can be seen in 1-2 business days. New patients are able to choose their new health provider based on geography and their timely availability. NESS NURSE * Attachments The following attachments cannot be sent through Care Everywhere. * Seizure (Guamanian) documented in this encounter Medications at Time of Discharge Medication Sig Dispensed Refills Start Date End Date diazePAM (Valtoco) 10 mg/spray (0.1 mL) Valier, Non-Aerosol Administer 10 mg in each nostril [...] by mouth 1 time daily as needed. ranitidine (ZANTAC) 150 mg tablet Take 150 mg by mouth 2 times daily. 11/14/2023 cloNIDine HCl (CATAPRES) 0.3 mg tablet Take 0.3 mg by mouth Daily LATE. At 8 PM 11/26/2023 propranoloL (INDERAL LA) 160 mg Long Acting 24 hour capsule Take 120 mg by mouth daily. 01/08/2024 documented as of this encounter ED Notes * Antonia Siddiqi RN - 04/19/2023 10:50 AM CST Pt cleaned up of urine and stool; diaper and clothes changed. Dc instructions given to caregiver. Assisted pt to caregivers car via WC. NESS NURSE * Antonia Siddiqi RN - 04/19/2023 7:57 AM CST Pt's mother called for update. Update provided. POC reviewed. Mother verbalized understanding. Pt becoming sleepier and resting with eyes closed. Chest rise and fall noted. Pt on continuous monitoring. NESS NURSE * Antonia Siddiqi RN - 04/19/2023 7:46 AM CST 89 BG at bedside NESS NURSE * Antonia Siddiqi RN - 04/19/2023 7:45 AM CST BG 101 per EMS NESS NURSE * Mickey Galvan DO - 04/19/2023 7:41 AM CST HISTORY OF PRESENT ILLNESS Travis Beebe, a 38 y.o. male presents to the ED with a Chief Complaint of Seizure Subjective 7:41 AM: Travis Beebe is a 38 y.o. male with a history of seizure disorder, autism, developmentaldelay, ADHD, and psychiatric disorder. The pt arrived via EMS from an assisted living facility. Per the facility and EMS, pt had a seizure at 6:30 AM and lasted 25 minutes. She was administered 2doses of intranasal diazepam. He continued to seize. At the 20-minute yunior EMS was called per protocol EMS did not administer anything en route. Pt can follow commands and is non verbal at baseline. History limited due to patient's mentation. History provided by: The patient, medical records and the EMS personnel Arrived by: EMS Arrived from: An outside facility REVIEW OF SYSTEMS Review of Systems PAST MEDICAL HISTORY REVIEWED MEDICAL: Patient has [...] pr unlisted procedure dentoalveolar structures (N/A, 12/06/2016). FAMILY: Patient's family history includes Cancer in his maternal grandfather; Diabetes in his maternal grandfather and paternal grandmother; Healthy in his brother, brother, sister, and sister; High Cholesterol in his maternal grandfather; Hypertension in his maternal grandfather, maternal grandmother, andpaternal grandmother; Other in his father and mother. SOCIAL: reports that he has never smoked. He has never used smokeless tobacco. He reports that he does not drink alcohol and does not use drugs. No history on file. Social History Other Topics Concern Not on file ALLERGIES Amoxicillin, Carbamazepine, Penicillins, and Phenytoin sodium HOME MEDICATIONS Discharge Medication List as of 04/19/2023 9:38 AM CONTINUE these medications which have NOT CHANGED Details diazePAM (Valtoco) 10 mg/spray (0.1 mL) Valier, Non-Aerosol Administer 10 mg in each nostril 1 time daily as needed for Seizures. cloBAZam (ONFI) 10 mg Tablet Take 40 mg by mouth daily at bedtime. magnesium hydroxide (MILK OF MAGNESIA) 400 mg/5 mL suspension Take 30 mL by mouth 1 time daily as needed for Constipation. Zonisamide (ZONEGRAN) 100 mg capsule Take 400 mg by mouth 2 times daily. GUAIFENESIN (MUCINEX ORAL) Take 400 mg by mouth Every 4-6 hours PRN . ranitidine (ZANTAC) 150 mg tablet Take 150 mg by mouth 2 times daily. bisacodyl (DULCOLAX) 5 mg Delayed Release tablet Take 10 mg by mouth 1 time daily as needed for Constipation. cloNIDine HCl (CATAPRES) 0.3 mg tablet Take 0.3 mg by mouth Daily LATE. At 8 PM acetaminophen (TYLENOL) 325 mg tablet Take 2 Tabs by mouth every 4 hours as needed for Pain., Disp-60 Tab, R-0 ergocalciferol (VITAMIN D2) 50,000 unit capsule Take 50,000 Units by mouth every 7 days Saturday. multivitamin (DAILY-KALYN) tablet Take 1 Tab by mouth daily. lamoTRIgine (LaMICtal) 150 mg tablet Take 300 mg by mouth 3 times daily. propranoloL (INDERAL LA) 160 mg Long Acting 24 hour capsule Take 160 mg by mouth daily. docusate sodium (COLACE) 100 mg Oral capsule Take 100 mg by mouth 2 times daily. lacosamide (VIMPAT) 100 mg tablet Take 200 mg by mouth 2 times daily . busPIRone (BUSPAR) 10 mg Oral tablet Take 10 mg by mouth 3 times daily. LACTOSE-FREE FOOD (ENSURE ORAL) Take by mouth 1 time daily as needed. Objective PHYSICAL EXAM INITIAL VS BP: 102/67 (04/19/23735), Heart Rate: 77 bpm (04/19/23735), Resp: 22 (04/19/23735), Pulse: 74(04/19/23 0755), Temp: 98.2 ??F (36.8 ??C) (04/19/23735), Temp src: (not recorded), SpO2: 98 % (04/19/23735), Height: (not recorded), Weight: 79.7 kg (175 lb 9.6 oz) (04/19/23735), BMI (Calculated): (not recorded) No LMP for male patient. Physical Exam HENT: Head: Normocephalic and atraumatic. Eyes: Extraocular Movements: Extraocular movements intact. Pupils: Pupils are equal, round, and reactive to light. Cardiovascular: Pulses: Normal pulses. Heart sounds: No murmur heard. No friction rub. No gallop. Pulmonary: Effort: Pulmonary effort is normal. No respiratory distress. Breath sounds: Normal breath sounds. No stridor. No wheezing, rhonchi or rales. Chest: Chest wall: No tenderness. Abdominal: General: Abdomen is flat. Palpations: Abdomen is soft. Musculoskeletal: General: No swelling. Cervical back: Normal range of motion and neck supple. Skin: General: Skin is warm and dry. Capillary Refill: Capillary refill takes less than 2 seconds. Neurological: General: No focal deficit present. Mental Status: He is alert. Mental status is at baseline. Comments: Patient is nonverbal but will follow commands. He is alert and following examiner with his eyes. DIAGNOSTICS LAB: CBC WITH DIFFERENTIAL - Abnormal Result Value WBC 5.1 RBC 4.11 (*) HEMOGLOBIN 13.1 (*) HEMATOCRIT 38.7 (*) MCV 94.2 MCH 31.9 MCHC 33.9 RDW 12.6 RDW-STDEV 43.0 PLATELETS 205 MPV 9.6 NEUTROPHILS 61 LYMPHOCYTES 27 MONOCYTES 8 EOSINOPHILS 3 BASOPHILS 1 IMMATURE GRANULOCYTES 1 NEUTROPHIL ABSOLUTE 3.13 LYMPHOCYTE ABSOLUTE 1.38 MONOCYTE ABSOLUTE 0.39 EOSINOPHIL ABSOLUTE 0.14 BASOPHILS ABSOLUTE 0.03 IMMATURE GRANULOCYTES ABSOLUTE 0.05 (*) COMPREHENSIVE METABOLIC PANEL - Abnormal SODIUM 139 POTASSIUM 4.1 CHLORIDE 109 (*) CO2 22 CALCIUM 9.3 BUN 15 CREATININE 0.93 GLUCOSE 76 TOTAL PROTEIN 7.5 ALBUMIN 4.3 BILIRUBIN TOTAL 0.4 ALKALINE PHOSPHATASE 120 AST 29 ALT 38 GFR >60 ANION GAP 8 ZONISAMIDE LEVEL LAMOTRIGINE LEVEL POC GLUCOSE GLUCOSE POC 89 SPECIMEN SOURCE, GLUCOSE POC Whole Blood COMMENT, GLU POC Notified RN/MD RADIOLOGY: No orders to display PROCEDURES Procedures MEDICAL DECISION MAKING AND PLAN OF CARE ED Course as of 04/19/23 1306 SatApr 19, 2023 0739 Reviewed neurology note 10/10/22. [EE] 0803 --On initial evaluation, saw and examined the patient. Discussed plan for labs. Patient understands and agrees with the plan. ED provider and ED nurse verbally discussed patient plan of care at this time. [EE] 6071 9:22 AM: D/w Dr. Noble, partner of Dr. Elaine, who is familiar with the pt and does not recommend making changes to medications. Follow up advised. [EE] 6728 9:31 AM: Patient's symptoms have improved. Updated pt on their lab results. Follow up and return precautions discussed. Patient understands and agrees with the plan. All questions and concerns addressed. The patient is stable for discharge. [EE] ED Course User Index [EE] Kailey Zhang Scribe Medical Decision Making Patient has a complex seizure history. Discussed with physician on-call for his neurologist. Feels that a breakthrough seizure is not unusual for patient and he would not change medication at this time. Patient will follow-up as an outpatient. List 1 or 2 critical diagnoses that were considered/evaluated (not all inclusive of differential diagnosis): Status epilepticus, Discussion/decision regarding admission vs outpatient management? Yes This chart was made using the aid of dictation software and therefore errors or substitutions may occur. Problems Addressed: Seizure: acute illness or injury Amount and/or Complexity of Data Reviewed Independent Historian: EMS External Data Reviewed: notes. Labs: ordered. Risk Prescription drug management. Decision regarding hospitalization. Clinical Scoring & Consults Discharge Medication List as of 04/19/2023 9:38 AM CONTINUE these medications which have NOT CHANGED Details diazePAM (Valtoco) 10 mg/spray (0.1 mL) Valier, Non-Aerosol Administer 10 mg in each nostril 1 time daily as needed for Seizures. cloBAZam (ONFI) 10 mg Tablet Take 40 mg by mouth daily at bedtime. magnesium hydroxide (MILK OF MAGNESIA) 400 mg/5 mL suspension Take 30 mL by mouth 1 time daily as needed for Constipation. Zonisamide (ZONEGRAN) 100 mg capsule Take 400 mg by mouth 2 times daily. GUAIFENESIN (MUCINEX ORAL) Take 400 mg by mouth Every 4-6 hours PRN . ranitidine (ZANTAC) 150 mg tablet Take 150 mg by mouth 2 times daily. bisacodyl (DULCOLAX) 5 mg Delayed Release tablet Take 10 mg by mouth 1 time daily as needed for Constipation. cloNIDine HCl (CATAPRES) 0.3 mg tablet Take 0.3 mg by mouth Daily LATE. At 8 PM acetaminophen (TYLENOL) 325 mg tablet Take 2 Tabs by mouth every 4 hours as needed for Pain., Disp-60 Tab, R-0 ergocalciferol (VITAMIN D2) 50,000 unit capsule Take 50,000 Units by mouth every 7 days Saturday. multivitamin (DAILY-KALYN) tablet Take 1 Tab by mouth daily. lamoTRIgine (LaMICtal) 150 mg tablet Take 300 mg by mouth 3 times daily. propranoloL (INDERAL LA) 160 mg Long Acting 24 hour capsule Take 160 mg by mouth daily. docusate sodium (COLACE) 100 mg Oral capsule Take 100 mg by mouth 2 times daily. lacosamide (VIMPAT) 100 mg tablet Take 200 mg by mouth 2 times daily . busPIRone (BUSPAR) 10 mg Oral tablet Take 10 mg by mouth 3 times daily. LACTOSE-FREE FOOD (ENSURE ORAL) Take by mouth 1 time daily as needed. LAST VS BP: 110/56 (04/19/23 1015), Heart Rate: 64 bpm (04/19/23 1015), Resp: 16 (04/19/23 1050), Pulse: 75(04/19/23 0845), Temp: 98.2 ??F (36.8 ??C) (04/19/23 0736), Temp src: (not recorded), SpO2: 97 % (04/19/23 0845) CLINICAL IMPRESSION Final diagnoses: [R56.9] Seizure (Primary) DISPOSITION, EDUCATION AND MEDICATION RECONCILIATION Medications reconciled. See after visit summary for patient education on discharged patients. ED Disposition ED Disposition Discharge Condition Stable User Mickey Galvan DO Date/Time SatApr 19, 2023 9:31 AM Comment -- ATTESTATION STATEMENTS This note is prepared by Kailey Zhang acting as a scribe for Dr. Mickey Galvan DO. The scribe's documentation has been prepared under my direction. I confirm that the note above accurately reflects all work, treatment, procedures, and medical decision making performed by me. Despite this, the chart was made using the aid of dictation software, and therefore errors or substitutions may occur. NESS NURSE * Antonia Siddiqi RN - 04/19/2023 7:40 AM CST Pt began seizure activity per facility at 0630 and was given rescue Valtoco IN at 0640 and again [id number] with no improvement. EMS called and pt seizure activity resolved en route. Pt arrives awake, nonverbal (baseline), follows commands and maintains eye contact and engages with staff. MD at bedside. Seizure precautions in place. NESS NURSE documented in this encounter Miscellaneous Notes * ED Bed Hold Comment Note - Shirley Jang RN - 04/19/2023 7:35 AM WELLNESS NURSE Bed: 05 Expected date: 04/19/23 Expected time: 7:26 AM Means of arrival: [place] Comments: 38M Seizure, 2 doses rescue meds. NESS NURSE documented in this encounter Plan of Treatment Not on file documented as of this encounter Procedures Procedure Name Priority Date/Time Associated Diagnosis Comments ZONISAMIDE LEVEL Stat 04/19/2023 7:48 AM WELLNESS NURSE CBC WITH DIFFERENTIAL Stat 04/19/2023 7:48 AM WELLNESS NURSE LAMOTRIGINE LEVEL Stat 04/19/2023 7:4 8 AM WELLNESS NURSE COMPREHENSIVE METABOLIC PANEL Stat 04/19/2023 7:48 AM WELLNESS NURSE POC GLUCOSE Stat 04/19/2023 7:46 AM WELLNESS NURSE documented in this encounter Results * LAMOTRIGINE LEVEL (04/19/2023 7:48 AM WELLNESS NURSE) LAMOTRIGINE LEVEL 14.1 2.5 - 15.0 mcg/mL 04/25/2023 1:55 PM CDT [facility] Comment: This test was developed and its analytical performance characteristics have been determined by [facility]. It has not been cleared or approved by the FDA. This assay has been validated pursuant to the CLIA regulations and is used for clinical purposes. Blood Venipuncture / Unknown 04/19/2023 7:48 AM WELLNESS NURSE 04/19/2023 7:59 AM WELLNESS NURSE Narrative [facility] - 04/25/2023 1:55 PM CDT Performing Organization Information: ?Site ID: [id number] ?Name: [email or web address] ?Address: [address] [place] [address] ?Director: Hieu Whipple M.D. Mickey Galvan DO CHEMISTRY ORDERABLES [facility] [phone] * (ABNORMAL) COMPREHENSIVE METABOLIC PANEL (04/19/2023 7:48 AM WELLNESS NURSE) SODIUM 139 136 - 145 mmol/L 04/19/2023 8:43 AM WELLNESS NURSE [facility] POTASSIUM 4.1 3.5 - 5.0 mmol/L 04/19/2023 8:43 AM WELLNESS NURSE [facility] Comment:Slightly hemolyzed. Result may be falsely elevated. CHLORIDE 109(H) 98 - 107 mmol/L 04/19/2023 8:43 AM WELLNESS NURSE [facility] CO2 22 22 - 29 mmol/L 04/19/2023 8:43 AM WELLNESS NURSE [facility] CALCIUM 9.3 8.6 - 10.2 mg/dL 04/19/2023 8:43 AM WELLNESS NURSE [facility] BUN 15 6 - 20 mg/dL 04/19/2023 8:43 AM WELLNESS NURSE [facility] CREATININE 0.93 0.67 - 1.17 mg/dL 04/19/2023 8:43 AM WELLNESS NURSE [facility] GLUCOSE 76 74 - 99 mg/dL 04/19/2023 8:43 AM WELLNESS NURSE [facility] TOTAL PROTEIN 7.5 6.7 - 8.6 g/dL 04/19/2023 8:43 AM WELLNESS NURSE [facility] ALBUMIN 4.3 3.5 - 5.2 g/dL 04/19/2023 8:43 AM WELLNESS NURSE [facility] BILIRUBIN TOTAL 0.4 0.3 - 1.2 mg/dL 04/19/2023 8:43 AM WELLNESS NURSE [facility] ALKALINE PHOSPHATASE 120 40 - 129 U/L 04/19/2023 8:43 AM WELLNESS NURSE [facility] AST 29 <41 U/L 04/19/2023 8:43 AM [facility] Comment:Hemolysis present. R esult may be falsely elevated. ALT 38 <42 U/L 04/19/2023 8:43 AM [facility] GFR >60 >=60 mL/min/1.7 3 sq meter 04/19/2023 8:43 AM [facility] Comment:eGFR calculated with 2020 CKD-EPI equation. Vegetarian diet, extremely high or low muscle mass, and may affect results. Cystatin C with Glomerular Filtration Rate is a suitable alternative for these patients. ANION GAP 8 8 - 16 mmol/L 04/19/2023 8:43 AM [facility] Blood Venipuncture / Unknown 04/19/2023 7:48 AM WELLNESS NURSE 04/19/2023 7:59 AM [facility] - 04/19/2023 8:43 AM WELLNESS NURSE Samples containing indocyanine green cause interferences on Total and/or Direct Bilirubin and must not be measured. Mickey Galvan DO CHEMISTRY ORDERABLES [facility]# [id number] [address] [place] [address] [place] [address] * (ABNORMAL) CBC WITH DIFFERENTIAL (04/19/2023 7:48 AM WELLNESS NURSE) WBC 5.1 4.0 - 9.8 K/uL 04/19/2023 8:14 AM [facility] RBC 4.11(L) 4.50 - 5.40 M/uL 04/19/2023 8:14 AM [facility] HEMOGLOBIN 13.1(L) 13.6 - 16.5 g/dL 04/19/2023 8:14 AM [facility] HEMATOCRIT 38.7(L) 40.0 - 48.0 % 04/19/2023 8:14 AM [facility] MCV 94.2 82.0 - 99.0 fL 04/19/2023 8:14 AM [facility] MCH 31.9 27.2 - 32.6 pg 04/19/2023 8:14 AM WELLNESS NURSE [facility] MCHC 33.9 31.5 - 35.5 g/dL 04/19/2023 8:14 AM WELLNESS NURSE [facility] RDW 12.6 11.5 - 14.5 % 04/19/2023 8:14 AM WELLNESS NURSE [facility] RDW-STDEV 43.0 37.1 - 48.7 fL 04/19/2023 8:14 AM WELLNESS NURSE [facility] PLATELETS 205 140 - 350 K/uL 04/19/2023 8:14 AM [facility] MPV 9.6 9.3 - 12.4 fL 04/19/2023 8:14 AM [facility] NEUTROPHILS 61 % 04/19/2023 8:14 AM [facility] LYMPHOCYTES 27 % 04/19/2023 8:14 AM [facility] MONOCYTES 8 % 04/19/2023 8:14 AM [facility] EOSINOPHILS 3 % 04/19/2023 8:14 AM [facility] BASOPHILS 1 % 04/19/2023 8:14 AM [facility] IMMATURE GRANULOCYTES 1 % 04/19/2023 8:14 AM [facility] Comment:IG (Immature Granulo cyte) count includes Metamyelocytes, Myelocytes, and Promyelocytes NEUTROPHIL ABSOLUTE 3.13 1.90 - 7.00 K/uL 04/19/2023 8:14 AM [facility] LYMPHOCYTE ABSOLUTE 1.38 0.70 - 4.50 K/uL 04/19/2023 8:14 AM [facility] MONOCYTE ABSOLUTE 0.39 0.10 - 1.30 K/uL 04/19/2023 8:14 AM [facility] EOSINOPHIL ABSOLUTE 0.14 0.00 - 0.70 K/uL 04/19/2023 8:14 AM WELLNESS NURSE [facility] BASOPHILS ABSOLUTE 0.03 0.00 - 0.20 K/uL 04/19/2023 8:14 AM WELLNESS NURSE [facility] IMMATURE GRANULOCYTES ABSOLUTE 0.05(H) 0.00 - 0.03 K/uL 04/19/2023 8:14 AM WELLNESS NURSE [facility] Blood Venipuncture / Unknown 04/19/2023 7:48 AM WELLNESS NURSE 04/19/2023 7:59 AM WELLNESS NURSE Mickey Galvan DO HEMATOLOGY ORDERABLE S [facility] CLIA# [id number] [address] [place] [address] * ZONISAMIDE LEVEL (04/19/2023 7:48 AM WELLNESS NURSE) ZONISAMIDE, BLOOD 26.9 10.0 - 40.0 mcg/mL 04/25/2023 1:55 PM CDT [facility] Comment: This test was developed and its analytical performance characteristics have been determined by [facility]. It has not been cleared or approved by the FDA. This assay has been validated pursuant to the CLIA regulations and is used for clinical purposes. Blood Venipuncture / Unknown 04/19/2023 7:48 AM WELLNESS NURSE 04/19/2023 7:59 AM WELLNESS NURSE Narrative [facility] - 04/25/2023 1:55 PM CDT Performing Organization Information: ?Site ID: [id number] ?Name: [facility] ?Address: [address] [place] [address] ?Director: Hieu Whipple M.D. Mickey Galvan DO CHEMISTRY ORDERABLES [facility] [phone] * POC GLUCOSE (04/19/2023 7:46 AM WELLNESS NURSE) GLUCOSE POC 89 74 - 99 mg/dL 04/19/2023 7:46 AM WELLNESS NURSE [facility] SPECIMEN SOURCE, GLUCOSE POC Whole Blood 04/19/2023 7:46 AM WELLNESS NURSE [facility] COMMENT, GLU POC Notified RN/MD 04/19/2023 7:46 AM WELLNESS NURSE [facility] Blood, whole 04/19/2023 7:46 AM WELLNESS NURSE 04/19/2023 7:54 AM WELLNESS NURSE Mickey Galvan DO POINT OF CARE GAEL White [facility] CLIA# [id number] [address] [place] [id number] documented in this encounter Visit Diagnoses Diagnosis Seizure- Primary Other convulsions documented in this encounter Care Teams Gas Appliance Installer Relationship Specialty Start Date End Date Gulshan Mena DO [address] [place] [id number] PCP - General 01/26/15 documented as of this encounter
--- OUTSIDE RECORDS SUMMARY | 2024-02-12 05:14 | XMS_ITS | Encounter Summary ---
Author Organization [employer] Address [address] [place] [address] Care Team Providers Care Respite Worker Name Role Phone Gulshan Mena DO Primary Care Provider [phone] Encounter Details Date Type Department Care Team (Latest Contact Info) Description 12/06/2006 Outpatient Historical [facility] Erich Santiago MD NO ADDRESS ON FILE Contusion of Face, Scalp, and Neck except Eye(s) (Primary Dx) Social History Tobacco Use Types Packs/Day Years Used Date Smoking Tobacco: Never Assessed Sex and Gender Information Value Date Recorded Sex Assigned at Not on file Gender Identity Not on file Sexual Orientation Not on file documented as of this encounter Plan of Treatment Not on file documented as of this encounter Visit Diagnoses Diagnosis Contusion of face, scalp, and neck except eye(s)- Primary documented in this encounter Additional Health Concerns Infection Onset Date Last Indicated Resolved Time R/O COVID-19 02/13/2021 02/13/2021 02/13/2021 6:22 PM 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 aware. 02/13/2021 02/13/2021 02/23/2021 8:[address] R/O Respiratory 11/13/2023 11/13/2023 11/13/2023 7 :57 PM CDT Respiratory Syncytial Virus (RSV) 11/13/2023 024 12/11/2023 1:16 AM CDT R/O Respiratory 01/07/2024 01/07/2024 01/07/2024 1 1:41 PM INTERRELATED SPECIAL EDUCATION TEACHER documented as of this encounter Care Teams Respite Worker Relationship Specialty Start Date End Date Gulshan Mena DO [address] [place] [phone] PCP - General 01/26/15 documented as of this encounter
--- OUTSIDE RECORDS SUMMARY | 2024-02-12 05:14 | XMS_ITS | Encounter Summary ---
Author Organization [facility] Address 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, with intractable epilepsy [345.41] Procedures VAGUS NERVE STIMULATOR PLACEMENT [facility] Operating Room [address] [place] [phone] Referral ID Status Reason Start Date Expiration Date Visits Re quested Visits Authorized [id number] Closed 1 1 Encounter Details Date Type Department Care Team (Late st Contact Info) Description 10/27/2013 7:28 AM CDT Anesthesia Event [facility] Operating Room [address] [place] [phone] Joe Spears MD NO ADDRESS ON FILE Anesthesia Record Procedure Summary Procedure Name Responsible Anesthesiologist Anesthesia Start Time Anesthesia Stop Time VAGUS NERVE STIMULATOR PLACEMENT (Left: Chest) Joe Spears MD 10/27/13 0728 10/27/13 0842 Events Date Time Event Comment 10/27/2013 0645 0646 AN Equip Check Anesthesia eq uipment and materials checked in accordance with local policy. 0728 An Start 0728 An Start Data 0730 Pre-Induction Immediate pre- induction anesthetic assessment performed. Vital signs as noted on graphic. 0733 An Induction 0735 An Intubation 0739 Anesthesia Ready 0750 Quick Note Start Procedure 0836 An Extubation Emergence unev entful Awake, spontaneous respirations. Adequate muscle strength demonstrated Adequate tidal volume. Orapharynx suctioned. Extubated with positive pressure ventilation. 0838 an stop data 0842 An Stop Meds Name Total propofol (DIPRIVAN) 10??mg/mL injection 200 mg lidocaine (XYLOCAINE) 2% injection 60 mg rocuronium (ZEMURON) 10mg/mL injection 4 0 mg midazolam (VERSED) 1??mg/mL injection 3 mg fentaNYL (SUBLIMAZE) PF 50??mcg/mL injec tion 100 mcg glycopyrrolate (ROBINUL) 0.2 mg/mL injec tion 0.6 mg neostigmine (PROSTIGMINE) 1 mg/mL inject ion 3 mg succinylcholine (ANECTINE) 20 mg/mL inje ction 100 mg lactated ringers infusion 750 mL * Agents Name N2O Air Isoflurane % Isoflurane O2 Inspired O2 N2O Inspired N2O O2 * Blood No blood administrations on file. Lines, Drains, and Airways Type Details Placement Removal Wound 10/27/13; No; 2; Lef t:, anterior; neck; surgical; 02/15/21 10/27/13 0000 by Shayla Morocho RN 02/15/21 0000 by Ursula Hardin RN Endotracheal Airway Type: ETT, Oral; Verification: Auscultated bilateral breath sounds, Equal chest movement, Continuous waveform capnography 10/27/13 0637 by Joe Spears MD 10/27/13 0836 by Joe Spears MD Peripheral IV Pre-Hospital Start: No; Orientation: Right; Location: Hand; Device: Angiocath; Gauge: 20 gauge; Insertion Attempts: 1; Patient Tolerance: tolerated well (per ); Pain Prevention: distraction; Removal Indication: no longer indicated, removed per policy; Removal Interventions: pressure dressing, direct pressure, catheter intact 10/27/13 0702 by Angie Lynn RN 10/27/13 1107 by Светлана Anderson RN Endotracheal Airway Type: ETT; Cuff Pressure: cuff inflated; Size: 7.5; Site: mouth; Attempts: 1; FOV: I; cm: 22; Device: Curved Blade; Blade: 3; Secured: secured with tape; Verification: Auscultated bilateral breath sounds, Equal chest movement, Continuous waveform capnography 10/27/13 0733 by Joe pSears MD 10/27/13 0836 by Joe Spears MD Adult Incision 10/27/13; 0757; surgical incision; Left; chest; 10/27/13; 2324 10/27/13 0757 by Shayla Morocho RN 10/27/13 2324 by PROVIDER, DISCHARGE PATIENT documented in this [...] OR Notes * Anesthesia Postprocedure Evaluation - Adrian Varela MD - 10/27/2013 9:43 AM CDT Post Anesthesia Evaluation Vitals: BP 122/75 Pulse 55 Temp(Src) 36.2 ??C (Temporal) Resp 10 Ht 5' 6 (1.676 m) Wt 164 lb (74.39 kg) BMI 26.48 kg/m2 SpO2 100% Pain Rating: Pain Rating: Rest: 0 (10/27/13 0656) Nausea/Vomiting: no nausea and no vomiting Post-Op hydration: well hydrated Respiratory function: no respiratory symptoms Airway patency: normal Cardiovascular function: Normal - Regular rate and rhythm Mental status, LOC: Baseline Patient participated in evaluation: yes Anesthetic complications: no Adrian Varela MD * Anesthesia Preprocedure Evaluation - Joe Spears MD - 10/27/2013 6:43 AM CDT Anesthesia Evaluation Patient summary reviewed and Nursing notes reviewed Airway TM distance: >3 FB Neck ROM: full Comment: Could not properly examine airway due to patient non-compliance Dental Comment: Some missing and chipped teeth upper. Pulmonary - negative ROS and normal exam Cardiovascular - negative ROS and normal exam Neuro/Psych (+) seizures poorly controlled, psychiatric history (developmental delay, autism, ADHD, anxiety, non-verbal) GI/Hepatic/Renal - negative ROS Endo/Other - negative ROS Abdominal - normal exam Anesthesia History No history of anesthetic complications. Anesthesia Plan ASA 2 General Intravenous induction Oral ETT airway maintenance NPO status > 8 hours Anesthetic plan and risks discussed with Mother and Patient Designated Pouncing Machine Operator. Plan discussed with Surgeon. Post-op Pain Control Plan to use Per surgeon and IV or IM medication for post-op pain control. documented in this encounter Plan of Treatment Not on file documented as of this encounter Visit Diagnoses Not on filedocumented in this encounter Administered Medications Inactive Administered Medications - up to 3 most recent administrations Medication Order MAR Action Action Date Dose Rate Site fentaNYL PF (SUBLIMAZE) 50 mcg/mL injection INTRA-PROCEDURE PRN, Starting on Sat10/27/13 at 0730, Until Sat10/27/13 at 0842, Routine, Anesthesia Intra-op Given 10/27/2013 7:30 AM CDT 100 mcg glycopyrrolate (ROBINUL) injection INTRA-PROCEDURE PRN, Starting on Sat10/27/13 at 0822, Until Sat10/27/13 at 0842, Routine, Anesthesia Intra-op Given 10/27/2013 8:29 AM CDT 0.2 mg Given 10/27/2013 8:22 AM CDT 0.4 mg lactated ringers solution INTRA-PROCEDURE CONTINUOUS PRN, Starting on Sat10/27/13 at 0725, Until Sat10/27/13 at 0842, Routine, Anesthesia Intra-op New Bag 10/27/2013 7:25 AM CDT lidocaine 2 % (XYLOCAINE) injection INTRA-PROCEDURE PRN, Starting on Sat10/27/13 at 0730, Until Sat10/27/13 at 0842, Other (See Comment), Routine, Anesthesia Intra-op Given 10/27/2013 7:30 AM CDT 60 mg midazolam (VERSED) injection INTRA-PROCEDURE PRN, Starting on Sat10/27/13 at 0730, Until Sat10/27/13 at 0842, Routine, Anesthesia Intra-op Given 10/27/2013 7:30 AM CDT 3 mg neostigmine (PROSTIGMINE) 1 mg/mL injection INTRA-PROCEDURE PRN, Starting on Sat10/27/13 at 0822, Until Sat10/27/13 at 0842, Routine, Anesthesia Intra-op Given 10/27/2013 8:22 AM CDT 3 mg propofol (DIPRIVAN) injection INTRA-PROCEDURE PRN, Starting on Sat10/27/13 at 0733, Until Sat10/27/13 at 0842, Anesthesia Intra-op Given 10/27/2013 7:33 AM CDT 200 mg rocuronium (ZEMURON) injection INTRA-PROCEDURE PRN, Starting on Sat10/27/13 at 0730, Until Sat10/27/13 at 0842, Routine, Anesthesia Intra-op Given 10/27/2013 7:38 AM CDT 35 mg Given 10/27/2013 7:30 AM CDT 5 mg succinylcholine (ANECTINE) 20 mg/mL injection INTRA-PROCEDURE PRN, Starting on Sat10/27/13 at 0733, Until Sat10/27/13 at 0842, Routine, Anesthesia Intra-op Given 10/27/2013 7:33 AM CDT 100 mg documented in this encounter Care Teams Transcription Specialist Relationship Specialty Start Date End Date Gulshan Mena DO PCP - General Internal Medicine 04/22/11 01/25/15 documented as of this encounter
--- OUTSIDE RECORDS SUMMARY | 2024-02-12 05:14 | XMS_ITS | Encounter Summary ---
Author Organization [facility] Address [address] [place] [address] Care Team Providers Care Marine Welder Name Role Phone Gulshan Mena DO Primary Care Provider Chapo cadet Reason for Visit * Reason Comments Rash all over this AM; pl aced on Amoxicillin 04-17-11; Brenda Mayo RN 1400 04-22-11 Encounter Details Date Type Department Care Team (Late st Contact Info) Description 04/22/2011 1:50 PM CDT Office Visit [facility] [address] [facility] , [place] [address] [place] [id number] Tyshawn Faith MD NO ADDRESS ON FILE Nica Mendez NP NO ADDRESS ON FILE Drug eruption (Primary Dx) Social History Tobacco Use Types Packs/Day Years Used Date Smoking Tobacco: Never Assessed Sex and Gender Information Value Date Recorded Sex Assigned at Not on file Gender Identity Not on file Sexual Orientation Not on file documented as of this encounter Last Filed Vital Signs Vital Sign Reading Time Taken Comments Blood Pressure 90/62 04/22/2011 2:05 PM CDT Pulse 90 04/22/2011 2:05 PM CDT Temperature 36.6 ??C (97.9 ??F) 04/22/2011 2:05 PM CD T Respiratory Rate 20 04/22/2011 2:05 PM CDT Oxygen Saturation - - Inhaled Oxygen Concentration - - Weight 68.9 kg (152 lb) 04/22/2011 2:05 PM CDT Height 170.2 cm (5' 7 ) 04/22/2011 2:05 PM CDT Body Mass Index 23.81 04/22/2011 2:05 PM CDT documented in this encounter Progress Notes * Nica Mendez NP - 04/22/2011 2:43 PM CDT HISTORY OF PRESENT ILLNESS Travis Beebe, a 26 y.o. male. HPI Chief Complaint Patient presents with ??? Rash all over this AM; placed on Amoxicillin 04-17-11; Brenda Mayo RN 1400 04-22-11 Mom at one time said pt was allergic to Amoxil but Recently said he was not. Placed on Amoxil for ?Infection in mouth on 04/17/11. Has rash now REVIEW OF SYSTEMS Review of Systems Constitutional: Negative. Respiratory: Negative. Cardiovascular: Negative. Skin: Positive for rash. PHYSICAL EXAM BP 90/62 Pulse 90 Temp(Src) 97.9 ??F (36.6 ??C) (Oral) Resp 20 Ht 5' 7 (1.702 m) Wt 152 lb (68.947 kg) BMI 23.81 kg/m2 Physical Exam Constitutional: He appears well-developed and well-nourished. White male, wearing helmet. Has severe seizure disorder and lives in [facility] . Has 2 caseworkers with him. Cooperative. HENT: Right Ear: External ear normal. Left Ear: External ear normal. Nose: Nose normal. Mouth/Throat: Oropharynx is clear and moist. No oropharyngeal exudate. No infection noted to gums, cheek or teeth. Cardiovascular: Normal rate, regular rhythm and normal heart sounds. Pulmonary/Chest: Effort normal and breath sounds normal. No respiratory distress. He has no wheezes. Skin: Fine papular erythematous rash to torso and upper extremities. ASSESSMENT and PLAN: 1. Drug eruption (693.0) documented in this encounter Miscellaneous Notes * Assessment & Plan Note - Hawa Scanning, [facility] - 04/22/2011 8:45 PM CDT * Patient Instructions - Nica Mendez NP - 04/22/2011 2:38 PM CDT Images from the original note were not included. Allergic Reaction to Amoxil Benadryl (generic) 25 mg po every 4 hours prn until rash resolves Stop Amoxil Call 911for difficulty swallowing, shortness of breath F/U for worsening rash. [place] Patient Instructions Allergic Reaction: After Your Visit Your Care Instructions An allergic reaction is an excessive response from your immune system to a medicine, chemical, food, insect bite, or other substance. A reaction can range from mild to life-threatening. Some people have a mild rash, hives, and itching or stomach cramps. In severe reactions, swelling of your tongue and throat can close up your airway so that you cannot breathe. Follow-up care is a honeycutt part of your treatment and safety. Be sure to make and go to all appointments, and call your doctor if you are having problems. It???s also a good idea to know your test results and keep a list of the medicines you take. How can you care for yourself at home? ?? If you know what caused your allergic reaction, be sure to avoid it. Your allergy may become more severe each time you have a reaction. ?? Take an xpey-tem-cafmqid antihistamine, such as Benadryl or Claritin, to treat mild symptoms. Read and follow all instructions on the label. Do not give antihistamines to a child unless you have checked with your doctor first. ?? Do not scratch hives or a rash. Put a cold, moist towel on them or take cool baths to relieve itching. Put ice packs on hives, swelling, or insect stings for 10 to 15 minutes at a time. Put a thincloth between the ice pack and your skin. Do not take hot baths or showers. They will make the itching worse. ?? Your doctor may prescribe a shot of epinephrine (such as EpiPen) to carry with you in case you have a severe reaction. Learn how to give yourself the shot and keep it with you at all times. Make sure it is not . ?? Go to the emergency room every time you have a severe reaction, even if you have used your shot of epinephrine and are feeling better. Symptoms can come back after a shot. ?? Wear medical alert jewelry that lists your allergies. You can buy this at most [employer]. ?? If your child has a severe allergy, make sure that his or her teachers, babysitters, coaches, and other caregivers know about the allergy. They should have an epinephrine shot, know how and when to give it, and have a plan to take your child to the hospital. When should you call for help? Call 911 anytime you think you may need emergency care. For example, call if: ?? You passed out (lost consciousness). ?? Your tongue or throat is swelling. ?? You have breathing problems or wheezing. ?? You feel like you are having a severe reaction that is like one you have had in the past. If youhave an epinephrine shot, go ahead and use it. Go to the emergency room, even if you feel better. Call your doctor now or seek immediate medical care if: ?? You are dizzy or lightheaded, or you feel like you may faint. ?? You get a skin rash, itching, a feeling of warmth, or hives. Watch closely for changes in your health, and be sure to contact your doctor if: ?? Your symptoms do not get better over the next 1 to 2 days. ?? Your allergy reactions get worse over time. ?? You want to find out more about allergy shots or epinephrine shots. Where can you learn more? Go to www.[employer]) in the Health Information search box Enter E081 in the search box to learn more about Allergic Reaction: After Your Visit. ?? [id number] [employer]. Care instructions adapted under license by [employer]. [employer] disclaims any warranty or liability for your use of this information. This information is not intended to represent the ethical and buddhism beliefs of [facility]. This care instruction is for use with your licensed healthcare professional. If you have questions about a medical condition or this instruction, always ask your healthcare professional. [employer] disclaims any warranty or liability for your use of this information. Content Version: 9.2.899402; Last Revised: May 03, 2010 documented in this encounter Plan of Treatment Not on file documented as of this encounter Visit Diagnoses Diagnosis Drug eruption- Primary Dermatitis due to drugs and medicines taken internally documented in this encounter Care Teams Marine Welder Relationship Specialty Start Date End Date Gulshan Mena DO PCP - General Internal Medicine 04/22/11 01/25/15 documented as of this encounter
--- OUTSIDE RECORDS SUMMARY | 2024-02-12 05:14 | XMS_ITS | Encounter Summary ---
Author Organization [employer] Address [address] [place] [address] Care Team Providers Care Rock Drill Operator Name Role Phone Gulshan Mena DO Primary Care Provider [phone] Encounter Details Date Type Department Care Team (Late st Contact Info) Description 02/12/2023 External Device Data [facility] ABSTRACTION Provider, Abstract [...] on filedocumented in this encounter Care Teams Rock Drill Operator Relationship Specialty Start Date End Date Gulshan Mena DO [address] [place] [phone] PCP - General 01/26/15 documented as of this encounter
--- OUTSIDE RECORDS SUMMARY | 2024-02-12 05:14 | XMS_ITS | Encounter Summary ---
Author Organization [facility] Address [address] [facility] Attn: [place] [address] Care Team Providers Care Clearance Coordinator Name Role Phone Gulshan Mena DO Primary Care Provider [phone] Encounter Details Date Type Department Care Team (Latest Contact Info) Description 06/13/2023 Travel Social History Tobacco Use Types Packs/Day [...] on filedocumented in this encounter Care Teams Clearance Coordinator Relationship Specialty Start Date End Date Gulshan Mena DO [address] [place] [phone] PCP - General 01/26/15 documented as of this encounter
--- OUTSIDE RECORDS SUMMARY | 2024-02-12 05:14 | XMS_ITS | Encounter Summary ---
Author Organization [employer] [facility] Address [address] [place] [address] Care Team Providers Care Manufacturer'S Representative Name Role Phone Gulshan Mena DO Primary Care Provider Chapo cadet Reason for Visit * Auth/Cert - Closed Specialty Diagnoses / Procedures Referred By Padmini vogt Referred To Contact General Surgery Diagnoses DENTAL CARIES Procedures DENTAL REHABILITATION [facility] [place] [address] [place] [address] Referral ID Status Reason Start Date Expiration Date Visits Re quested Visits Authorized [id number] Closed 1 1 Encounter Details Date Type Department Care Team (Late st Contact Info) Description 10/20/2014 11:47 AM CDT - 10/20/2014 4:17 PM CDT Surgery [facility] Operating Room [address] [place] [address] Dereck Dunbar DDS [address] [facility] [address] [place] [address] DENTAL REHABILITATION Surgery Details Date/Time Status Location OR Service Patient Class Case Class Case Type Trauma Case? 10/20/2014 11:47 AM Posted [facility] OR MAIN OR 19 Oralmaxillofacial Surgical OP/Extende d Care Elective No Panel 1 Procedure LRB Anes Op Region Wound Class Comments DENTAL REHABILITATION N/A General Mouth Clean Co ntaminated-II Surgeon Surgeon Role Service Panel Dereck Dunbar DDS Primary Oralmaxillofacia l 1 Case Notes MEDICAID, #[id number] PER DELLA, CPT: 72477 documented in this encounter Social History Tobacco [...] Sign Reading Time Taken Comments Blood Pressure 116/77 10/20/2014 2:35 PM CDT Pulse 84 10/20/2014 2:35 PM CDT Temperature 36.6 ??C (97.8 ??F) 10/20/2014 2:03 PM CD T Respiratory Rate 16 10/20/2014 2:35 PM CDT Oxygen Saturation 95% 10/20/2014 2:35 PM CDT Inhaled Oxygen Concentration - - Weight 78 kg (172 lb) 10/20/2014 9:12 AM CDT Height 167.6 cm (5' 6 ) 10/07/2014 3:04 PM CDT Body Mass Index 27.76 10/07/2014 3:04 PM CDT documented in this encounter Discharge Summaries * Dereck Dunbar DDS - 10/20/2014 1:08 PM CDT Pt to be discharged once anesthesia criteria met Pt to eat as he feels, no limitations for today. Pt to drink as he feels, no limitations. No post op pain meds needed. Pt to be up and ambulatory as he is able. Pt to be discharged once anesthesia criteria met/ documented in this encounter Discharge Instructions * Discharge Instructions* Katie Melvin RN - 10/20/2014 2:11 PM CDT SAFETY For the next 24 hours, you may feel sleepy due to medicines used during your procedure. For the next 24 hour period or while you are on pain medication, DO NOT make any important decisions or sign any important papers. DO NOT drink any alcoholic beverages, including beer. DO NOT drive a car or operate machinery and power tools. For your safety and protection, we strongly recommend that a responsible adult be with you today and throughout the night. Medication Pain Medication given at . Next dose due at , if needed. ADDITIONAL INFORMATION Once you are home, if you develop any of the following symptoms, call your physician. Difficulty in breathing, persistent nausea or vomiting, pain that is unusual, excessive swelling orredness at incision site, trouble swallowing, temperature greater than 101 degrees, excessive bleeding at incision site. If you cannot contact your physician, call or come to the Emergency Room at [facility] ([phone]) or the nearest Emergency Room. In an emergency, Call 911. documented in this encounter Medications at Time of Discharge Medication Sig Dispensed Refills Start Date End Date GUAIFENESIN (MUCINEX ORAL) Take 400 mg by [...] by mouth 1 time daily as needed. codeine-guaiFENesin (ROBITUSSIN-AC) 10-100 mg/5 mL Liquid Take 10 mL by mouth Every 4-6 hours PRN . 03/02/2021 ranitidine (ZANTAC) 150 mg tablet Take 150 mg by mouth 2 times daily. 11/14/2023 bisacodyl (DULCOLAX) 10 mg Suppository Insert 10 mg by rectum daily. 02/14/2021 cloNIDine HCl (CATAPRES) 0.3 mg tablet Take 0.3 mg by mouth Daily LATE. At 8 PM 11/26/2023 CLOBAZAM ORAL Take 40 mg by mouth daily at bedtime . 02/09/2022 LEVETIRACETAM (KEPPRA ORAL) Take 1,250 mg by mouth 2 times daily. 12/06/2016 PHENYLEPHRINE HCL (SUDAFED PE ORAL) Take by mouth every 4 hours as needed. 03/02/2021 DIAZEPAM (DIASTAT RECTAL) Insert by rectum. GIVE dIASTAT 20 MG RECTALLY FOR SEIZURES LASTING MORE THAN 5 MINUTES, IF STILL CONVULSING 30 MINUTES LATER GIVE AN ADDITIONAL 10 MG 02/09/2022 loratadine (CLARITIN) 10 mg tablet Take 10 mg by mouth daily. 02/13/2022 propranoloL (INDERAL LA) 160 mg Long Acting 24 hour capsule Take 120 mg by mouth daily. 01/08/2024 carbamide peroxide (DEBROX) 6.5 % OT Drop 5 Drops 2 times daily. 03/02/2021 Zonisamide (ZONEGRAN) 100 mg Oral capsule Take 200 mg by mouth daily AT O800. 02/14/2021 documented as of this encounter OR Notes * Operative Report - Yumiko Burton DDS - 10/20/2014 2:32 PM CDT Operative Note: [facility] [address] [place] [address], [address] O: F: SURGEON GUS Garcia Dr., DDS PGY I FERRYBOAT PILOT Alethea Mac PREOPERATIVE DIAGNOSIS 1.)Dental Caries 2.)Periodontal disease POSTOPERATIVE DIAGNOSIS 1.)Periodontal disease 2.) OPERATION NAME [facility] INDICATIONS FOR PROCEDURE The patient, Travis Beebe, with a history of severe mental retardation with developmental delay, seizure disorder, ADHD, Agression Adjustment Disorder, Autism, Tremors, Anxiety, Allergic Rhintis, and Emmett Gastaut Syndrome was referred to our office for dental care, but is unable to receive care inthe dental office setting. For the patient???s safety, the patient was taken to the operating room in a controlled and monitored environment for general anesthesia and the completion of comprehensivedental care. ANESTHESIA General anesthesia, via nasal/endotracheal tube, provided by Yordy Dempsey CRNA. PROCEDURE The patient was taken to the operating room on 10/20/14 at approximately 12:00. [facility] to the operating table in the supine position where ECG, pulse oximeter and blood pressure monitors were affixed and proved to be functioning normally. The appropriate amount ofanesthetic was given by the anesthesia team. The patient was intubated with a nasal endotracheal tub e, which was secured in the usual fashion, and the patient was draped for a dental surgical procedure. Full mouth dental radiographs were taken and a comprehensive dental examination was performed. The status of all remaining teeth was evaluated radiographically and clinically, and a treatment planfor the patient???s oral care was developed. After thorough suctioning of the oral cavity, a moistened throat pack was placed. Scaling and root planing of the upper right, lower right, upper left, and lower left quadrants of the mouth was performed with a Cavitron and hand instrumentation. The teeth were then polished with prophy paste and fluoride gel was applied liberally over all dental surfaces. No caries detected clinically or radiographically. SCC on #4,12,13,20 are in good repair and will be monitored for future restorative needs. With no additional treatment needs, the oral cavity was suction and thoroughly examined for debris.The throat pack was removed, the patient was allowed to awaken, extubated, and transferred to the awaiting bed. The patient was then taken to the Post-Anesthesia Recovery Room in stable condition. FLUIDS _500_ mL lactated Ringer???s ESTIMATED BLOOD LOSS Minimal COMPLICATIONS None CONDITION Stable * Anesthesia Handoff - Yordy Dempsey CRNA - 10/20/2014 1:11 PM CDT Post-Anesthetic transfer of care report elements to appropriate post-anesthesia recovery environment completed in accordance with procedure. Vital Signs: BP: 133/85 mmHg (10/20/2014 1:09 PM) Pulse: 92 (10/20/2014 1:09 PM) Heart Rate: 90 bpm (10/20/2014 1:09 PM) Temp: 36.4 ??C (10/20/2014 1:09 PM) Resp: 12 (10/20/2014 1:09 PM) SpO2: 100 % (10/20/2014 1:09 PM) 1:11 PM Yordy Dempsey CRNA * Anny-OP - Chip Steve RN - 10/20/2014 1:07 PM CDT Throat Pack In 1210 Out 1257 * Anny-OP - Gladis Nobles RN - 10/19/2014 9:13 AM CDT VNS RECOMMENATIONS RECEIVED FROM DR NOBLE * Anny-OP - Chikis Livingston RN - 10/15/2014 10:13 AM CDT I called Gudelia Linares, contact lens flashing puncher for [employer] to inquire on status of Operative and Blood Consents that I had been told were forwarded to Gladis Mariano ([employer] andpt's court appointed guardian). She stated she will find out about same and fax to us at [phone] or call me back. * Anny-OP - Chikis Livingston RN - 10/14/2014 11:[address] Noble's office at to check status of request for Anny- anesthesia recommendations of VNS form. They stated they would relay message. * Anny-OP - Chikis Livingston RN - 10/12/2014 3:25 PM CDT Pre op instr sheet faxed to Pau at [employer] at [phone]. I called and left a message with Dr Noble's office and left VM message requesting status of clearance request and device management recommendations for VMS faxed on 10/08. * Anny-OP - Chikis Livingston RN - 10/08/2014 10:32 AM CDT I contacted Gudelia Linares (care-personal caregiver) [facility]. Pt's neurologist is Dr. Noble phone: . I faxed clearance request and request for Anny- Anesthesia Management recommendation for VNS to Dr. Noble's office at [phone]. Yanely in his office stated they would forward to Dr. Noble. * Anny-OP - Chikis Livingston RN - 10/07/2014 3:58 PM CDT [facility] anesthesiologist (Dr Jacques) recommends we either have patient come in for PQ visit prior to DOS or obtain recommendations for Anny-Anesthesia Management of VNS. Dr Malik's office (surgeon who put in VNS) stated we needed to contact patient's neurologist to obtain same. Call placed to Gudelia Linares (care- personal caregiver) at [facility] at [phone] (cell) to obtain name and number of patient's neurologist who manages patient's VNS. VM message left. * Anny-OP - Chikis Livingston RN - 10/06/2014 1:02 PM CDT senior living care-personal caregiver stated she was having operative consent and blood consent sent to her by Dr Mejia's office signed by guardian. She is to fax us MAR, H&P, DX sheet, Ht, Wt, any recent labs. documented in this encounter Miscellaneous Notes * Care Plan - Katie Melvin RN - 10/20/2014 2:34 PM CDT Knowledge deficit related to post-discharge care Interventions: Assess learning needs and willingness to learn; give clear, concise explanations of the care required post-discharge; address patient/family questions and concerns; provide teaching asindicated Expected Outcome: Patient and/or family/significant other demonstrate(s) behaviors required for performance of activities enhancing recovery post-discharge Outcome Met: Caregiver voices understanding of post-op instructions. * Care Plan - Mahnaz Rodríguez RN - 10/20/2014 1:28 PM CDT Potential for pain related to surgical/procedural intervention Interventions: Assess level of pain/comfort utilizing verbal/nonverbal pain scales; assess culturalor confucianism indicators attached to pain; administer pain medications as prescribed; utilize non-pharmacologic pain control and comfort measures Expected Outcome: Patient demonstrates and reports adequate pain control Outcome Met: pt resting quietly, no c/o pain Potential for alteration in thermoregulatory, circulatory, respiratory fluid & electrolyte status Interventions: Perform ongoing physical assessment; maintenance of airway or mechanical ventilation; monitor level of consciousness; initiate safety measures; observe patient???s respiratory status and oxygen saturation; obtain measurements of ongoing hemodynamic parameters, cardiac rhythm, and temperature; monitor intake and output; inspect wound dressings and/or drain output; perform prescribedtherapeutic regimens, treatments and tests; document and/or communicate care given Expected Outcome: Patient will maintain functional status compatible with preoperative status Outcome Met: VSS and WNL * Care Plan - Jess Green RN - 10/20/2014 9:06 AM CDT Knowledge deficit related to procedure/environment Interventions: Assess learning needs and willingness to learn; give clear, concise explanations of the environment and sequence of events surrounding the periop experience; address patient/family questions and concerns; provide teaching as indicated, provide teaching related to postoperative pain assessment utilizing pain scales Expected Outcome: Patient verbalizes or demonstrates awareness/understanding of surgery and perioperative experience Outcome Met: */family understands instructions documented in this encounter Plan of Treatment Not on file documented as of this encounter Procedures Procedure Name Priority Date/Time Associated Diagnosis Comments TELEMETRY REPORT 10/22/2014 6:00 PM CDT DENTAL REHABILITATION 10/20/2014 10:55 AM CDT DENTAL CARIES Case Notes MEDICAID, #[id number] PER DELLA, CPT: 34469 documented in this encounter Results * TELEMETRY REPORT (10/22/2014 6:00 PM CDT) Provider Scanning ECG ORDERABLES documented in this encounter Visit Diagnoses Not on filedocumented in this encounter Administered Medications Inactive Administered Medications - up to 3 most recent administrations Medication Order MAR Action Action Date Dose Rate Site lactated ringers solution IV, at 150 mL/hr, PRE-PROCEDURE CONTINUOUS, Starting on Sat10/20/14 at 0915, Until Sat10/20/14 at 1654, Routine New Bag 10/20/2014 10:02 AM CDT 150 mL/hr sodium chloride 0.9 % irrigation irrigation INTRA-PROCEDURE PRN, Starting on Sat10/20/14 at 1240, Until Sat10/20/14 at 1306, Routine, Intra-op Given 10/20/2014 12:40 PM CDT 400 mL Operative Site documented in this encounter Active and Recently Administered Medications Times are shown in CDT. Scheduled Medication Order 10/18/2014 10/19/2014 10/20/2014 clindamycin (CLEOCIN) IVPB 900 mg (COMPLETED) 900 mg, IV, PRE-PROCEDURE ONCE, 1 dose, Starting on Sat10/20/14 at 0908, Until Sat10/20/14 at 1219, Routine, Antibiotic Indication: Surgical prophylaxis 1149 (Given - Provid er: Yordy Dempsey CRNA)1219 (Stopped - Provider: Yordy Dempsey CRNA) Continuous Medication Order 10/18/2014 10/19/2014 10/20/2014 lactated ringers solution (CANCELED) IV, at 150 mL/hr, PRE-PROCEDURE CONTINUOUS, Starting on Sat10/20/14 at 0915, Until Sat10/20/14 at 1654, Routine 1002 (New Bag - Prov ider: Jess Green, MAURO)1130 (Canceled Entry - Provider: Yordy Dempsey CRNA)1310 (Fluid Volume - Provider: Yordy Dempsey CRNA)1435 (Stopped - Provider: Katie Melvin RN) PRN Medication Order 10/18/2014 10/19/2014 10/20/2014 sodium chloride 0.9 % irrigation irrigation (CANCELED) INTRA-PROCEDURE PRN, Starting on Sat10/20/14 at 1240, Until Sat10/20/14 at 1306, Routine, Intra-op 1240 (Given - Provid er: Dereck Dunbar DDS) documented in this encounter Care Teams Manufacturer'S Representative Relationship Specialty Start Date End Date Gulshan Mena DO PCP - General Internal Medicine 04/22/11 01/25/15 documented as of this encounter
--- OUTSIDE RECORDS SUMMARY | 2024-02-12 05:14 | XMS_ITS | Encounter Summary ---
[facility] Organization [facility] Address [address] [facility] Attn: [place] [address] Care Team Providers Care Manager Financial Reporting Name Role Phone Gulshan Mena DO Primary Care Provider [phone] Encounter Details Date Type Department Care Team (Latest Contact Info) Description 04/19/2023 Travel Social History Tobacco Use Types Packs/Day [...] on filedocumented in this encounter Care Teams Manager Financial Reporting Relationship Specialty Start Date End Date Gulshan Mena DO [address] [place] [address] PCP - General 01/26/15 documented as of this encounter
--- OUTSIDE RECORDS SUMMARY | 2024-02-12 05:14 | XMS_ITS | Encounter Summary ---
Author Organization [facility] Address [address] [place] [address] Care Team Providers Care Body Straightener Name Role Phone Gulshan Mena DO Primary [...] epilepsy [345.41] Procedures VAGUS NERVE STIMULATOR PLACEMENT [facility] Operating Room [address] [place] [phone] Referral ID Status Reason Start Date Expiration Date Visits Re quested Visits Authorized [id number] Closed 1 1 Encounter Details Date Type Department Care Team (Latest Contact Info) Description 10/27/2013 6:27 AM CDT - 10/27/2013 11:24 AM CDT Hospital Encounter [facility] [address] [place] [phone] Hieu Macias MD [address] [phone] Seizure disorder, complex partial, with intractable epilepsy [...] Sign Reading Time Taken Comments Blood Pressure 113/72 10/27/2013 11:07 AM CDT Pulse 79 10/27/2013 11:07 AM CDT Temperature 36.4 ??C (97.5 ??F) 10/27/2013 11:07 AM C DT Respiratory Rate 19 10/27/2013 11:07 AM CDT Oxygen Saturation 100% 10/27/2013 11:07 AM CDT Inhaled Oxygen Concentration - - Weight 74.4 kg (164 lb) 10/27/2013 7:02 AM CDT Height 167.6 cm (5' 6 ) 10/27/2013 6:56 AM CDT Body Mass Index 26.47 10/27/2013 6:56 AM CDT documented in this encounter Discharge Instructions * Discharge Instructions* Fela Colbert RN - 10/27/2013 9:51 AM CDT [place], [place] Vagal Nerve Stimulator Placement- Discharge Instructions ACTIVITY: ??? No strenuous activity such as sports or athletic working out for two (2) weeks. ??? Do not lift more than ten (10) pounds for 2 weeks. ??? Avoid excessive stooping, bending, or pulling for four (4) weeks after surgery. ??? Climbing stairs is allowed. Walking is encouraged. ??? No driving. ??? No smoking! WOUND CARE: ??? May wash incision daily with soap water using a fresh washcloth each time. Showering is allowed2 days postoperatively. ??? Report ANY redness, drainage, or warmth at the incision site or difficulty with swallowing to the surgeon???s office. Report any fever greater than 101 degrees F. ??? Men should avoid shaving close to the incision for one (1) week. DIET: ??? Resume preoperative diet. Heart healthy diet advised. MEDICATIONS: Current Discharge Medication List CHANGE how you take these medications acetaminophen 325 mg tablet Commonly known as: TYLENOL What Changed: - how much to take - reasons to take this Take 2 Tabs by mouth every 4 hours as needed for Pain. Provider: Hieu Macias Quantity: 60 Tab Refills: 0 VITAMIN D2 50,000 unit capsule What Changed: Another medication with the same name was removed. Continue taking this medication, and follow the directions you see here. Take 50,000 Units by mouth every 7 days. Refills: 0 Generic drug: ergocalciferol CONTINUE taking these medications busPIRone 10 mg tablet Commonly known as: BUSPAR Take 10 mg by mouth 3 times daily. Refills: 0 CLARITIN 10 mg tablet Take 10 mg by mouth daily. Refills: 0 Generic drug: loratadine CLOBAZAM ORAL - Take by mouth. 10 MG AT 8 AM - 20 MG AT 8 PM Refills: 0 cloNIDine HCl 0.3 mg tablet Commonly known as: CATAPRES Take 0.3 mg by mouth Daily LATE. At 8 PM Refills: 0 COLACE 100 mg capsule Take 100 mg by mouth 2 times daily. Refills: 0 Generic drug: docusate sodium DEBROX 6.5 % Drop 5 Drops 2 times daily. Refills: 0 Generic drug: carbamide peroxide DIASTAT RECTAL Insert by rectum. GIVE dIASTAT 20 MG RECTALLY FOR SEIZURES LASTING MORE THAN 5 MINUTES, IF STILL CONVULSING 30 MINUTES LATER GIVE AN ADDITIONAL 10 MG Refills: 0 ENSURE ORAL Take by mouth 1 time daily as needed. Refills: 0 INDERAL LA 160 mg Long Acting 24 hour capsule Take 160 mg by mouth daily. Refills: 0 Generic drug: propranolol KEPPRA ORAL Take 1,250 mg by mouth 2 times daily. Refills: 0 LaMICtal 150 mg tablet Take 300 mg by mouth 3 times daily. Refills: 0 Generic drug: lamoTRIgine multivitamin tablet Commonly known as: DAILY-KALYN Take 1 Tab by mouth daily. Refills: 0 SUDAFED PE ORAL Take by mouth every 4 hours as needed. Refills: 0 VIMPAT 100 mg tablet Take by mouth 2 times daily. Refills: 0 Generic drug: lacosamide ZONEGRAN 100 mg capsule Take 200 mg by mouth 2 times daily. Refills: 0 Generic drug: Zonisamide FOLLOW-UP: ??? Hieu Macias MD, FACS in approximately 3 weeks. Call [phone] to schedule day and time of the appointment ??? If you have any questions, please do not hesitate to call our office. [facility], [address], [place], [place] [phone] Hieu Macias MD, FACS POST-SEDATION DISCHARGE INSTRUCTIONS FOR ADULTS This medication given during the procedure may change your judgment for approximately eight hours. Things you should NOT do after the procedure: 1) Do nothing in which thinking quickly and accurately is necessary. These activities include cooking, driving, bicycling, swimming, skiing, taking a walk or operation of any dangerous machinery or vehicle such as a car, boat, tractor or motorcycle. YOU WILL NEED SOMEONE TO DRIVE YOU HOME. 2) Do not drink alcohol or take any mood altering drugs such as tranquilizers or stimulants. 3) You will not be able to be responsible for small children or other persons. 4) You will not be able to work Things you SHOULD do after the Procedure: 1) You may want to go home and take a nap. 2) Return to your normal diet unless instructed otherwise. 3) Have someone stay with you the first four hours to make sure you do not do anything you should not do. 4) May resume normal activity 24 hours following this procedure unless otherwise instructed. 5) Be aware that all medications can have SIDE EFFECTS- the pharmacist will discuss these with you when you cotton picker your prescription. Please follow any precautions mentioned by your nurse as well. Please call your doctor immediately if you develop any of the following symptoms: ?? Persistent vomiting ?? Difficulty breathing ?? Very pale or grayish skin color ?? Any other symptoms that concern you If unable to reach your doctor, call or come to the Emergency department at [phone] documented in this encounter Medications at Time of Discharge Medication Sig Dispensed Refills Start Date End Date acetaminophen (TYLENOL) 325 mg tablet Take 2 [...] by mouth 1 time daily as needed. cloNIDine HCl (CATAPRES) 0.3 mg tablet Take [...] O800. 02/14/2021 documented as of this encounter H&P Notes * Hieu Macias MD - 10/27/2013 7:18 AM CDT I have reviewed the last H&P and performed a physical examination of the patient today and there are no changes to the above H&P. Hieu Macias MD, FACS Source Note - Hieu Macias MD - 10/15/2013 2:58 PM CDT HPI Chief Complaint: Chief Complaint Patient presents with ??? Epilepsy Sent by Dr. Douglas for further discussion of vagal nerve stimulator placement for treatment of intractable seizures. History of Present Illness: Travis Beebe is a 28 y.o. male sent for evaluation/consultation for refractory seizures by Drs. Douglas and Aide. The patients caregivers reports the onset of seizures in the patient at age 13 years.The onset was not associated with trauma, anoxic brain injury, or other known etiology. The patientis on 5 anti- seizure medications, but still has inadequate seizure control. His frequency of seizures is often 4-5/day. Prior neurologic evaluation has determined that the patient is not a candidate for anti-seizure neurosurgery. He has two types of seizures. The most frequent one is a partial complex type. Sometimes he will have generalized seizures as well. The patient is experiencing problematic side effects of her current anti-seizure medications (declining word vocabulary and interaction with people). The patient's neurologist has recommended proceeding with VNS implantation. Past Medical History Diagnosis Date ??? Seizure disorder ??? Static encephalopathy ??? Developmental delay disorder ??? ADHD (attention deficit hyperactivity disorder) ??? Adjustment reaction with aggression ??? Autism ??? Tremors of nervous system ??? Psychiatric disorder anxiety ??? Allergic rhinitis ??? Cullowhee-Gastaut syndrome Past Surgical History Procedure Laterality Date ??? Hx wisdom teeth extraction 2008 Current Outpatient Prescriptions Medication Sig Dispense Refill ??? CLOBAZAM ORAL Take by mouth. 10 MG AT 8 AM 20 MG AT 8 PM ??? ergocalciferol (VITAMIN D2) 50,000 unit capsule Take 50,000 Units by mouth every 7 days. ??? LEVETIRACETAM (KEPPRA ORAL) Take 1,250 mg by mouth 2 times daily. ??? multivitamin (DAILY-KALYN) tablet Take 1 Tab by mouth daily. ??? PHENYLEPHRINE HCL (SUDAFED PE ORAL) Take by mouth every 4 hours as needed. ??? DIAZEPAM (DIASTAT RECTAL) Insert by rectum. GIVE dIASTAT 20 MG RECTALLY FOR SEIZURES LASTING MORE THAN 5 MINUTES, IF STILL CONVULSING 30 MINUTES LATER GIVE AN ADDITIONAL 10 MG ??? lamoTRIgine (LAMICTAL) 150 mg Oral tablet Take 300 mg by mouth 3 times daily. ??? loratadine (CLARITIN) 10 mg Oral tablet Take 10 mg by mouth daily. ??? propranolol SR 24 hour (INDERAL LA) 160 mg Oral Cs24 Take 160 mg by mouth daily. ??? ergocalciferol (VITAMIN D) 50,000 unit Oral capsule Take 50,000 Units by mouth. ??? docusate sodium (COLACE) 100 mg Oral capsule Take 100 mg by mouth 2 times daily. ??? carbamide peroxide (DEBROX) 6.5 % OT Drop 5 Drops 2 times daily. ??? lacosamide (VIMPAT) 100 mg Oral tablet Take by mouth 2 times daily. ??? busPIRone (BUSPAR) 10 mg Oral tablet Take 10 mg by mouth 3 times daily. ??? Zonisamide (ZONEGRAN) 100 mg Oral capsule Take 200 mg by mouth 2 times daily. ??? acetaminophen (TYLENOL) 325 mg Oral tablet Take 325 mg by mouth every 4 hours as needed. ??? LACTOSE-FREE FOOD (ENSURE ORAL) Take by mouth 1 time daily as needed. No current facility-administered medications for this visit. Allergies Allergen Reactions ??? Amoxil (Amoxicillin) Hives ??? Other Drug (Unclassified Drug) Other (See Comments) Patient was told that since he was allergic to Amoxil that he could be allergic to all cillans . ??? Tegretol (Carbamazepine) Other (See Comments) tremors History Social History ??? Marital Status: Single Spouse Name: N/A Number of Children: N/A ??? Years of Education: N/A Occupational History ??? Not Employed Social History Main Topics ??? Smoking status: Never Smoker ??? Smokeless tobacco: Never Used ??? Alcohol Use: No ??? Drug Use: No ??? Sexually Active: Not on file Other Topics Concern ??? Not on file Social History Narrative ??? No narrative on file Family History Problem Relation Age of Onset ??? Other Father PSYCHIATRIC ISSUES ??? Other Mother MS ??? Healthy Sister ??? Healthy Brother ??? Hypertension Maternal Grandmother ??? High Cholesterol Maternal Grandfather ??? Hypertension Maternal Grandfather ??? Diabetes Maternal Grandfather ??? Cancer Maternal Grandfather PERHAPS KIDNEY OR LIVER ??? Hypertension Paternal Grandmother ??? Diabetes Paternal Grandmother ??? Healthy Sister ??? Healthy Brother REVIEW OF SYSTEMS Review of Systems Constitutional: Negative for fever, chills, diaphoresis, activity change, appetite change and unexpected weight change. HENT: Negative for hearing loss, nosebleeds, congestion, trouble swallowing, neck stiffness, voice change, sinus pressure and tinnitus. Eyes: Negative for photophobia, pain and visual disturbance. Respiratory: Negative for apnea, cough, choking, chest tightness, shortness of breath, wheezing andstridor. Cardiovascular: Negative for chest pain, palpitations and leg swelling. Claudication reported: YES NO ([id number]) Gastrointestinal: Negative for nausea, vomiting, abdominal pain, diarrhea, constipation, blood in stool, abdominal distention, anal bleeding and rectal pain. GERD, Heartburn reported: YES NO ([id number]) Genitourinary: Negative for dysuria, urgency, frequency, hematuria, flank pain and difficulty urinating. Musculoskeletal: Negative for myalgias, back pain, joint swelling, arthralgias and gait problem. Skin: Negative for color change, pallor, rash and wound. Neurological: Positive for tremors, seizures and speech difficulty. Negative for dizziness, syncope, facial asymmetry, weakness, light-headedness, numbness and headaches. Mental retardation/developmental delay. Had a 30 word vocabulary which has slowly declined. Mostly not verbal now. Hematological: Negative for adenopathy. Does not bruise/bleed easily. Psychiatric/Behavioral: Positive for agitation. Negative for suicidal ideas, hallucinations, behavioral problems, confusion, sleep disturbance, self-injury, dysphoric mood and decreased concentration. The patient is nervous/anxious. The patient is not hyperactive. PHYSICAL EXAM BP 128/81 Pulse 70 Ht 5' 6 (1.676 m) Wt 177 lb (80.287 kg) BMI 28.58 kg/m2 SpO2 % Physical Exam Constitutional: He appears well-developed and well-nourished. No distress. Adult, non-verbal male in a helmet due to frequent seizures/falls. Body mass index is 28.58 kg/(m^2). HENT: Head: Normocephalic and atraumatic. Right Ear: External ear normal. Left Ear: External ear normal. Nose: Nose normal. Mouth/Throat: No oropharyngeal exudate. Eyes: Conjunctivae and EOM are normal. Pupils are equal, round, and reactive to light. Left eye exhibits no discharge. No scleral icterus. Neck: Normal range of motion. Neck supple. No JVD present. No tracheal deviation present. No thyromegaly present. Cardiovascular: Normal rate, regular rhythm, normal heart sounds and intact distal pulses. Exam reveals no gallop and no friction rub. No murmur heard. Pulmonary/Chest: Effort normal and breath sounds normal. No stridor. No respiratory distress. He has no wheezes. He has no rales. He exhibits no tenderness. Abdominal: Soft. Bowel sounds are normal. He exhibits no distension and no mass. There is no tenderness. There is no rebound and no guarding. Musculoskeletal: Normal range of motion. He exhibits no edema and no tenderness. Lymphadenopathy: He has no cervical adenopathy. Neurological: He is alert. Not verbal. Does not obey commands. Moves all 4 extremities. Has a tremor. Skin: Skin is warm and dry. No rash noted. He is not diaphoretic. No erythema. No pallor. Psychiatric: Non verbal. Developmentally delayed. Impression: 1. Epilepsy, Complex Partial/Focal Seizure, Intractable. Patient Active Problem List Diagnosis Code ??? 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 Development delay 783.40 ??? Autism 299.00 ??? ADHD (attention deficit hyperactivity disorder) 314.01 ??? Seizure disorder, complex partial, with intractable epilepsy 345.41 Plan: 1.The risks, benefits, side effects and alternatives to placement of a left vagal nerve electrode and neurostimulator generator were discussed with the adult furniture assembler in detail. The side effects of voice changes, cough, and local pain were described in great detail to them, in addition to the usual surgical and anesthetic risks of the procedure. 2. The patient/adult furniture assembler requested the procedure be performed and will coordinate with the mother to have her come and give consent to proceed. 3. The surgery will be performed under general anesthesia and will be scheduled in the near future. Hieu Macias MD, FACS ICD-9-CM ICD-10-CM 1. 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 Development delay 783.40 R62.50 3. Autism 299.00 F84.0 4. ADHD (attention deficit hyperactivity disorder) 314.01 F90.9 5. Seizure disorder, complex partial, with intractable epilepsy 345.41 G40.219 documented in this encounter OR Notes * Anny-OP - Fela Colbert RN - 10/27/2013 11:23 AM CDT Discharge Note from [facility] Discharge instructions for home have been reviewed with patient and responsible alliance party, no further questions at this time. Patient has tolerated recovery phase well and has met discharge criteria. Patient reports pain level of __0__ on a numeric pain rating scale of 0 is no complaints of pain and 10 being the highest level of pain. Pt discharged to private vehicle per wheelchair accompanied by ASC staff. * Anny-OP - Светлана Anderson RN - 10/27/2013 11:08 AM CDT Pt meets criteria for discharge from phase II Release with permission from Anesthesia Pain with in acceptable range * Anny-OP - Fela Colbert RN - 10/27/2013 10:20 AM CDT Informed child care assistant that patient has met criteria for discharge. Discharge instructions discussed with caregiver and mother. Questions answered and caregiver verbalized understanding. Caregiver states that they are not ready to leave and that she wants him to eat and drink more. Also states that she is going to give him his 15 Home medications prior to leaving. Dr Macias ok'd to receive meds. Instructed caregiver to notify when they are ready for discharge. * AnnySakinaOP - Fela Colbert RN - 10/27/2013 9:45 AM CDT 1. KNOWLEDGE DEFICIT RELATED TO POST-DISCHARGE CARE Interventions: Assess learning needs and willingness to learn; give clear, concise explanations of the care required post-discharge; address patient/family questions and concerns; provide teaching asindicated. Expected Outcomes: Patient and/or family/significant other demonstrates behaviors required for performance of activities enhancing recovery post-discharge. Outcome Met: Yes * AnnySakinaOP - Zo Myles RN - 10/27/2013 9:38 AM CDT 1. POTENTIAL FOR PAIN RELATED TO SURGICAL/PROCEDURAL INTERVENTION Interventions: Assess level of pain/comfort utilizing verbal/non-verbal pain scales; assess cultural or anabaptist indicators attached to pain; administer pain medications as prescribed; utilize non-pharmacologic pain control and comfort measures. Expected Outcome: Patient demonstrates and reports adequate pain control. Outcome Met: Yes/ 2. POTENTIAL FOR ALTERATION IN THERMOREGULATORY, CIRCULATORY, RESPIRATORY, FLUID & ELECTROLYTE STATUS Interventions: Perform on-going physical assessment; maintenance of airway or mechanical ventilation; monitor level of consciousness; initiate safety measures; observe patient's respiratory status and oxygen saturation; obtain measurements of ongoing hemodynamic parameters, cardiac rhythm, and temperature; monitor intake and output; inspect wound dressings and/or drain output; perform prescribed therapeutic regimens, treatments, and tests; document and/or communicate care given. Expected Outcome: Patient will maintain functional status compatible with preoperative status. Outcome Met: Yes * Anny-OP - Zo Myles RN - 10/27/2013 9:17 AM CDT Pt arouses to verbal stimuli, but falls back to sleep. Pt is non verbal. VSS * Anesthesia Handoff - Joe Spears MD - 10/27/2013 8:42 AM CDT Post-Anesthetic transfer of care report elements to appropriate post-anesthesia recovery environment completed in accordance with procedure. Vital Signs: BP: 122/75 mmHg (10/27/2013 8:40 AM) Pulse: 55 (10/27/2013 8:40 AM) Temp: 36.2 ??C (10/27/2013 8:40 AM) Resp: 10 (10/27/2013 8:40 AM) SpO2: 100 % (10/27/2013 8:40 AM) 8:42 AM Joe Spears MD * Anny-OP - Zo Myles RN - 10/27/2013 8:40 AM CDT Pt to PACU post left vagus nerve stimulator generator and stimulator implant. Pt arrives asleep, not responding to verbal stimuli. Dressing to left chest is dry and intact. All VSS Oral airway in place. * Operative Report - Hieu Macias MD - 10/27/2013 8:34 AM CDT Operative Report : [place], [place] Patient: Travis Granados Beebe / 28 y.o. / male : 1985 Date: 10/27/2013 CSN: [id number] Preoperative Diagnosis: Seizure disorder, complex partial, with intractable epilepsy Postoperative Diagnosis: Same Procedure Performed: 1. Implantation of Left Vagal Nerve Stimulator Electrodes and Neurostimulator Generator 2. Device Interrogation and Programming Surgeon: Hieu Macias MD, FACS Surgical Staff: Procedure Rn: Arleen Davis RN; Shayla Morocho RN Scrub: Stella Fowler; Concepcion Sanchez Faculty Member: Mitzi Soares RN Anesthesia: General Estimated Blood Loss: 10 ml Complications: None Findings: The lead impedance was 2077 Ohms and 2049 Ohms on device diagnostics tests. The device was programmed with 0 output in both regular and magnet modes. Implants: Implant Name Type Inv. Item Serial No. Instrumentation Chemist Lot No. LRB No. Used Action GENERATOR VNS 105 - [id number] Neuro [id number] [employer] Left 1 Implanted LEAD VNS THERAPY [facility] 303-20 - [id number] Lead [id number] [employer] Left 1 Implanted Description of Technique: After induction of General endotracheal anesthesia, the left neck and upper chest were prepped withChloraprep and draped in the usual sterile fashion. The patient had a transverse incision made in the anterior left neck. The platysma was divided with electrocautery and the sternocleidomastoid muscle was retracted laterally. The jugular vein was visualized and the vein was then retracted laterally. The vagus nerve was found laying between the carotid artery and the jugular vein in its usual position. The Trice Imagings 2 mm vagus nerve lead was placed around the left vagus nerve and secured to the omohyoid and sternocleidomastoid muscles using the provided pledgets and 3-0 Prolene forming the strain relief loop. The patient then had an incision made on the left chest in the anterior axillary line. A subcutaneous pocket was made for the neurostimulator generator. The lead was tunneled from the left neck to the left chest pocket, and then was connected to the neurostimulator generator. The d evice was interrogated and the system diagnostics were performed. The lead impedance was 2077 Ohms and OK . The generator was placed in the subcutaneous pocket and the testing repeated. The lead impedance was again OK at 2049 Ohms. The platysma was closed with 3-0 Polysorb, and the subcutaneous tissue of the chest incision was closed with 3-0 Polysorb. The skin layer of both incisions was closed with 4-0 Biosyn. Octylseal was used as a dressing. The patient was taken to the recovery room in stable condition. Disposition: The patient will be observed in the PACU and then ASC for a few hours before discharge. See DC Instructions. Hieu Macias MD, FACS * Anny-OP - Angie Lynn RN - 10/27/2013 6:47 AM CDT 1. POTENTIAL FOR ANXIETY RELATED TO SURGICAL INTERVENTION: Interventions: Convey caring/supportive attitude; offer emotional support as needed; provide comfort measures (warm blanket, pillow, quiet environment); allow patient opportunity to verbalize concerns/fears/questions; explore coping behaviors; allow age-specific/special needs family support Expected Outcome: Patient will demonstrate decreased anxiety or adaptive coping strategies Outcome Met: Yes 2. KNOWLEDGE DEFICIT RELATED TO PROCEDURE/ENVIRONMENT: Interventions: Assess learning needs and willingness to learn; give clear, concise explanations of the environment and sequence of events surrounding the periop experience; address patient/family questions and concerns; provide teaching as indicaitated , provide teaching related to postoperative pain assessment utilizing pain scales. Expected Outcome: Patient verbalizes or demonstrates awareness/understanding of surgery and perioperative experience. Outcome Met: Yes POTENTIAL FOR FALL DUE TO RISK ASSESSMENT SCORE OF >8: Interventions: Maintain/provide for a safe environment; Place a yellow Fall Risk bracelet on the patient: Educate patient/family on need to keep siderails up due to narrow stretchers; Advise patient/family to summon assistance if the patient needs to get up for any reason; Utilize assistive devicesas indicated. Expected Outcome: Absence of injury or fall during this visit. Outcome Met: Yes documented in this encounter Plan of Treatment Not on file documented as of this encounter Procedures Procedure Name Priority Date/Time Associated Diagnosis Comments VAGUS NERVE STIMULATOR INSERTION 10/27/2013 7:05 AM CDT Localization-related (focal) (partial) epilepsy and epileptic syndromes with complex partial seizures, with intractable epilepsy Case Notes 345.41 [facility] [id number] MEDICAID documented in this encounter Visit Diagnoses Diagnosis Seizure disorder, complex partial, with intractable epilepsy- Primary Localization-related (focal) (partial) epilepsy and epileptic syndromes with complex partial seizures, with intractable epilepsy [place]-Gastaut syndrome with intractable epilepsy Generalized nonconvulsive epilepsy with intractable epilepsy Autism Autistic disorder, current or active state documented in this encounter Administered Medications Inactive Administered Medications - up to 3 most recent administrations Medication Order MAR Action Action Date Dose Rate Site clindamycin (CLEOCIN) IVPB 600 mg 600 mg, IV, PRE-PROCEDURE ONCE, Starting on Sat10/27/13 at 0647, Until Sat10/27/13 at 1324, Routine, Pre-op, Antibiotic Indication: Surgical prophylaxis New Bag 10/27/2013 7:25 AM CDT 600 mg lactated ringers solution IV, at 125 mL/hr, PRE-PROCEDURE CONTINUOUS, Starting on Sat10/27/13 at 0700, Until Sat10/27/13 at 1324, Routine, Pre-op Bag Switched 10/27/2013 10:26 AM CDT 125 mL/hr New Bag 10/27/2013 7:08 AM CDT 125 mL/hr documented in this encounter Active and Recently Administered Medications Times are shown in CDT. Scheduled Medication Order 10/25/2013 10/26/2013 10/27/2013 clindamycin (CLEOCIN) IVPB 600 mg (CANCELED) 600 mg, IV, PRE-PROCEDURE ONCE, Starting on Sat10/27/13 at 0647, Until Sat10/27/13 at 1324, Routine, Pre-op, Antibiotic Indication: Surgical prophylaxis 0725 (New Bag - Prov ider: Shayla Morocho, RN)0742 (Stopped - Provider: Shayla Morocho, RN) Continuous Medication Order 10/25/2013 10/26/2013 10/27/2013 lactated ringers solution (CANCELED) IV, at 125 mL/hr, PRE-PROCEDURE CONTINUOUS, Starting on Sat10/27/13 at 0700, Until Sat10/27/13 at 1324, Routine, Pre-op 0708 (New Bag - Prov ider: Angie Lynn RN)1026 (Bag Switched - Provider: Fela Colbert, MAURO)1108 (Stopped - Provider: Светлана Anderson RN) PRN Medication Order 10/25/2013 10/26/2013 10/27/2013 sodium chloride 0.9 % irrigation irrigation (CANCELED) INTRA-PROCEDURE PRN, Starting on Sat10/27/13 at 0750, Until Sat10/27/13 at 0839, Routine, Intra-op 0750 (Given - Provid er: Hieu Macias MD - Comment: Available on back table for irrigation and clean up) documented in this encounter Care Teams Body Straightener Relationship Specialty Start Date End Date Gulshan Mena DO PCP - General Internal Medicine 04/22/11 01/25/15 documented as of this encounter
--- OUTSIDE RECORDS SUMMARY | 2024-02-12 05:14 | XMS_ITS | Encounter Summary ---
Author Organization [facility] Address [address] [place] [address] Care Team Providers Care Etl Tester Name Role Phone Gulshan Mena DO Primary Care Provider Chapo cadet Reason for Visit * Auth/Cert - Closed Specialty Diagnoses / Procedures Referred By Padmini vogt Referred To Contact General Surgery Diagnoses DENTAL CARIES Procedures DENTAL REHABILITATION [facility] Or [address] [place] [address] Referral ID Status Reason Start Date Expiration Date Visits Re quested Visits Authorized [id number] Closed 1 1 Encounter Details Date Type Department Care Team (Late st Contact Info) Description 10/20/2014 11:37 AM CDT Anesthesia Event [facility] Operating Room [address] [place] [address] Juany Sin MD [address] [place] [address] Anesthesia Record Procedure Summary Procedure Name Responsible Anesthesiologist Anesthesia Start Time Anesthesia Stop Time DENTAL REHABILITATION (Mouth) Juany Sin MD 10/20/14 1137 10/20/14 1310 Events Date Time Event Comment 10/20/2014 0936 1137 AN Equip Check Anesthesia eq uipment and materials checked in accordance with local policy. 1137 An Start 1137 An Start Data 1140 Pre-Induction Immediate pre- induction anesthetic assessment performed. Vital signs as noted on graphic. 1140 An Induction 1146 An Intubation 1149 Anesthesia Ready 1210 Throat Pack Placed 1257 Throat Pack Removed 1301 An Extubation Emergence unev entful Awake, spontaneous respirations. Adequate muscle strength demonstrated Adequate tidal volume. Orapharynx suctioned. Extubated with positive pressure ventilation. 1304 an stop data 1310 An Stop Meds Name Total midazolam (VERSED) 1??mg/mL injection 4 mg lidocaine (XYLOCAINE) 2% injection 100 m g propofol (DIPRIVAN) 10??mg/mL injection 200 mg fentaNYL PF 150 mcg rocuronium (ZEMURON) 10??mg/mL injection 20 mg glycopyrrolate (ROBINUL) 0.2 mg/mL injec tion 0.4 mg dexamethasone (DECADRON) 4 mg/mL injecti on 8 mg ondansetron (ZOFRAN) 4??mg/2 mL injectio n 4 mg clindamycin (CLEOCIN) IVPB 900 mg 900 mg lactated ringers solution 900 mL * Agents Name Sevoflurane % Desflurane % Sevoflurane Desflurane O2 Inspired O2 N2O Inspired N2O * Blood No blood administrations on file. Lines, Drains, and Airways Type Details Placement Removal Wound 10/27/13; No; 2; Lef t:, anterior; neck; surgical; 02/15/21 10/27/13 0000 by Shayla Morocho RN 02/15/21 0000 by Ursula Hardin RN Wound 10/20/14; No; 1; upp er, lower; gum; surgical; 02/15/21 10/20/14 0000 by Chip tSeve RN 02/15/21 0000 by Ursula Hardin RN Endotracheal Airway Type: ETT; Cuff Pressure: minimal leak technique, minimal occluding volume, cuff inflated; Secured: secured with tape; Verification: Auscultated bilateral breath sounds, Equal chest movement, Continuous waveform capnography 10/20/14 0948 by Yordy Dempsey CRNA 10/20/14 1301 by Yordy Dempsey CRNA Peripheral IV Pre-Hospital Start: No; Orientation: Right; Location: Hand; Device: Angiocath; Gauge: 20 gauge; Insertion Attempts: 1; Patient Tolerance: tolerated well; Removal Indication: no longer indicated, removed per policy; Removal Interventions: pressure dressing, direct pressure, catheter intact 10/20/14 0957 by Jess Green RN 10/20/14 1437 by Katie Melvin RN documented in this encounter Social History Tobacco [...] OR Notes * Anesthesia Postprocedure Evaluation - Michael Campos MD - 10/20/2014 1:27 PM CDT Phase I Postanesthesia Evaluation Including Modified Karley Score Patient seen and evaluated: Modified Karley Score: Score: 10 (10/20/141326) COMMENTS: No apparent Anesthesia related complications RESPIRATORY FUNCTION: Respiration: able to breath and cough freely (10/20/141326) [2=able to breathe and cough freely, 1=dyspnea, limited breathing or tachypnea, 0=apnea or mechanicventilator] O2 Saturation: able to maintain O2 saturation greater than 92% on room air (10/20/141326) [2=able to maintain O2 saturation greater than 92% on room air, 1=needs O2 inhalation to maintain O2 saturation greater than 90%, 0=O2 saturation less than 90% even with O2 supplement] Resp: 14 (10/20/141321)SpO2: 100 % (10/20/141321) CARDIOVASCULAR FUNCTION: Heart Rate: 93 bpm (10/20/141321) BP: 136/79 mmHg (10/20/141321) Circulation: BP within 20% of preanesthetic level (10/20/141326) [2=BP within 20% of preanesthetic level, 1=BP within 20-49% of preanesthetic level, 0=BP within 50%of preanesthetic level] MENTAL STATUS, NEURO, ACTIVITY: PATIENT PARTICIPATION IN EVALUATION:yes Consciousness: fully awake (10/20/141326) [2=fully awake, 1=arousable on calling, 0=not responding] Activity: able to move 4 extremities voluntarily or on command (10/20/141326) [2=able to move 4 extremities voluntarily or on command, 1=able to move 2 extremities voluntarily or on command, 0=unable to move extremities voluntarily or on command] TEMPERATURE: Temp: 36.4 ??C (10/20/141308) PAIN: Pain Rating: Rest: 0 (10/20/14911) Presence of Pain: denies pain/discomfort (10/20/14911) NAUSEA AND VOMITING: no nausea and no vomiting POSTOPERATIVE HYDRATION: well hydrated Intake/Output Summary (Last 24 hours) at 10/20/141326 Last data filed at 10/20/14 1310 Gross per 24 hour Intake 900 ml Output 0 ml Net 900 ml Michael Campos MD 10/20/2014 1:27 PM Phase I Postanesthesia Evaluation Including Modified Karley Score Patient seen and evaluated: Modified Karley Score: Score: 10 (10/20/141326) COMMENTS: No apparent Anesthesia related complications RESPIRATORY FUNCTION: Respiration: able to breath and cough freely (10/20/141326) [2=able to breathe and cough freely, 1=dyspnea, limited breathing or tachypnea, 0=apnea or mechanicventilator] O2 Saturation: able to maintain O2 saturation greater than 92% on room air (10/20/141326) [2=able to maintain O2 saturation greater than 92% on room air, 1=needs O2 inhalation to maintain O2 saturation greater than 90%, 0=O2 saturation less than 90% even with O2 supplement] Resp: 14 (10/20/141321)SpO2: 100 % (10/20/141321) CARDIOVASCULAR FUNCTION: Heart Rate: 93 bpm (10/20/141321) BP: 136/79 mmHg (10/20/141321) Circulation: BP within 20% of preanesthetic level (10/20/141326) [2=BP within 20% of preanesthetic level, 1=BP within 20-49% of preanesthetic level, 0=BP within 50%of preanesthetic level] MENTAL STATUS, NEURO, ACTIVITY: PATIENT PARTICIPATION IN EVALUATION:yes Consciousness: fully awake (10/20/141326) [2=fully awake, 1=arousable on calling, 0=not responding] Activity: able to move 4 extremities voluntarily or on command (10/20/141326) [2=able to move 4 extremities voluntarily or on command, 1=able to move 2 extremities voluntarily or on command, 0=unable to move extremities voluntarily or on command] TEMPERATURE: Temp: 36.4 ??C (10/20/14 1309) PAIN: Pain Rating: Rest: 0 (10/20/14911) Presence of Pain: denies pain/discomfort (10/20/14911) NAUSEA AND VOMITING: no nausea and no vomiting POSTOPERATIVE HYDRATION: well hydrated Intake/Output Summary (Last 24 hours) at 10/20/14 1327 Last data filed at 10/20/14 1310 Gross per 24 hour Intake 900 ml Output 0 ml Net 900 ml Michael Campos MD 10/20/2014 1:27 PM * Anesthesia Preprocedure Evaluation - Juany Sin MD - 10/20/2014 9:33 AM CDT Anesthesia Evaluation Anesthesia Plan ASA 3 General Intravenous induction Nasal ETT airway maintenance NPO status > 8 hours (clears >2) Anesthetic plan and risks discussed with Mother and Patient. Plan discussed with Nurse Medical Assistant Secretary. Post-op Pain Control Plan to use IV or IM medication and Per surgeon for post-op pain control. Pediatric Pre-Anesthesia Evaluation - Long Form 10/20/2014 9:34 AM Name: Travis Beebe Age: 29 y.o. Sex: male CSN: [id number] Procedure: Procedure(s): DENTAL REHABILITATION Surgeons/Assistants: Surgeon(s) and Role: * Dereck Dunbar DDS - Primary Allergies Allergen Reactions ??? Amoxil [Amoxicillin] Hives ??? Tegretol [Carbamazepine] Other (See Comments) tremors Prescriptions prior to admission Medication Sig Dispense Refill Last Dose ??? codeine-guaiFENesin (ROBITUSSIN-AC) 10-100 mg/5 mL Liquid Take 10 mL by mouth Every 4-6 hours PRN . ??? GUAIFENESIN (MUCINEX ORAL) Take 400 mg by mouth Every 4-6 hours PRN . ??? ranitidine (ZANTAC) 150 mg tablet Take 150 mg by mouth 2 times daily. ??? bisacodyl (DULCOLAX) 5 mg Delayed Release tablet Take 10 mg by mouth 1 time daily as needed forConstipation. ??? bisacodyl (DULCOLAX) 10 mg Suppository Insert 10 mg by rectum daily. ??? cloNIDine HCl (CATAPRES) 0.3 mg tablet Take 0.3 mg by mouth Daily LATE. At 8 PM ??? acetaminophen (TYLENOL) 325 mg tablet Take 2 Tabs by mouth every 4 hours as needed for Pain. 60Tab 0 ??? CLOBAZAM ORAL Take 40 mg by mouth daily at bedtime . 10/26/2013 at pm ??? ergocalciferol (VITAMIN D2) 50,000 unit capsule Take 50,000 Units by mouth every 7 days Saturday.Past Week at Unknown time ??? LEVETIRACETAM (KEPPRA ORAL) Take 1,250 mg by mouth 2 times daily. 10/26/2013 at pm ??? multivitamin (DAILY-KALYN) tablet Take 1 Tab by mouth daily. 10/26/2013 at pm ? ? PHENYLEPHRINE HCL (SUDAFED PE ORAL) Take by mouth every 4 hours as needed. > Month at Unknown time ??? DIAZEPAM (DIASTAT RECTAL) Insert by rectum. GIVE dIASTAT 20 MG RECTALLY FOR SEIZURES LASTING MORE THAN 5 MINUTES, IF STILL CONVULSING 30 MINUTES LATER GIVE AN ADDITIONAL 10 MG Past Week at Unknown time ??? lamoTRIgine (LAMICTAL) 150 mg Oral tablet Take 300 mg by mouth 3 times daily. 10/26/2013 at pm ??? loratadine (CLARITIN) 10 mg Oral tablet Take 10 mg by mouth daily. 10/26/2013 at am ??? propranolol SR 24 hour (INDERAL LA) 160 mg Oral Cs24 Take 160 mg by mouth daily. 10/26/2013 at am ??? docusate sodium (COLACE) 100 mg Oral capsule Take 100 mg by mouth 2 times daily. 10/26/2013 at pm ??? carbamide peroxide (DEBROX) 6.5 % OT Drop 5 Drops 2 times daily. Past Month at Unknown time ??? lacosamide (VIMPAT) 100 mg Oral tablet Take 200 mg by mouth 2 times daily . 10/26/2013 at pm ??? busPIRone (BUSPAR) 10 mg Oral tablet Take 10 mg by mouth 3 times daily. 10/26/2013 at pm ??? Zonisamide (ZONEGRAN) 100 mg Oral capsule Take by mouth 1 CAP AT 8 AM AND 3 CAPS (300 MG) AT 8PM. 10/26/2013 at pm ??? LACTOSE-FREE FOOD (ENSURE ORAL) Take by mouth 1 time daily as needed. Past Month at Unknown time Current Facility-Administered Medications Medication Dose Route Frequency Provider Last Rate Last Dose ??? lactated ringers solution IV Pre-Proc Continuous Dereck Dunbar DDS ??? lidocaine PF 2 % (XYLOCAINE MPF) injection 0.3 mL 0.3 mL Infiltration ONCE Dereck Dunbar DDS ??? clindamycin (CLEOCIN) IVPB 900 mg 900 mg IV Pre-Proc Once Dereck Dunbar DDS Patient Active Problem List Diagnosis Date Noted ??? Seizure disorder, complex partial, with intractable epilepsy 10/15/2013 ??? 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 Development delay 10/14/2013 ??? Autism 10/14/2013 ??? ADHD (attention deficit hyperactivity disorder) 10/14/2013 Past Medical History Diagnosis Date ??? Seizure disorder ??? Developmental delay disorder ??? Adjustment reaction with aggression ??? Autism ??? Tremors of nervous system ??? Psychiatric disorder anxiety ??? Allergic rhinitis ??? [place]-Gastaut syndrome ??? 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 Static encephalopathy ??? ADHD (attention deficit hyperactivity disorder) ??? Constipation ??? Other general symptoms(780.99) Aggression-Adjustment Disorder Past Surgical History Procedure Laterality Date ??? Hx wisdom teeth extraction 2009 front teeth ? ? Pr imp stim,cranial,subq,>1 array Left 10/27/2013 VAGUS NERVE STIMULATOR PLACEMENT performed by Hieu Macias MD at [facility] OR History Substance Use Topics ??? Smoking status: Never Smoker ??? Smokeless tobacco: Never Used ??? Alcohol Use: No Family History Problem Relation Age of Onset ??? Other Father PSYCHIATRIC ISSUES ??? Other Mother MS ??? Healthy Sister ??? Healthy Brother ??? Hypertension Maternal Grandmother ??? High Cholesterol Maternal Grandfather ??? Hypertension Maternal Grandfather ??? Diabetes Maternal Grandfather ??? Cancer Maternal Grandfather PERHAPS KIDNEY OR LIVER ??? Hypertension Paternal Grandmother ??? Diabetes Paternal Grandmother ??? Healthy Sister ??? Healthy Brother Previous Anesthesia Problems/Concerns: No anesthesia problems/complications History of PONV No Review of Systems Cardiovascular:Negative for SOB, irregular heart beats, diaphoresis, cyanosis or syncope. No known congenital heart disease. Respiratory: Negative for wheezing, stridor, hemoptysis or recent pneumonia. Gastroenterology: Negative for vomiting, reflux, abdominal pain or symptomatic constipation. Neuro: Epilepsy ([place]-Gastaut syndrome). Seizure control improved after vagal nerve stimulator. Developmental delay. PHYSICAL EXAM BP 142/104 mmHg Pulse 72 Temp(Src) 36.6 ??C (Temporal) Resp 16 Ht 5' 6 (1.676 m) Wt 172 lb (78.019 kg) BMI 27.77 kg/m2 SpO2 100% Weight: Weight: 172 lb (78.019 kg) (10/20/14 0912) Height: Ht Readings from Last 1 Encounters: 10/07/14 5' 6 (1.676 m) BMI: Body mass index is 27.77 kg/(m^2). Airway: Normal facies/normal mandible, no known cervical instability.; Lungs: clear to auscultation bilaterally, normal respiratory effort Heart: regular rate and rhythm, without murmur/click,gallop/rub. Neuro: No obvious abnormality Vascular Access: None LABS No results found for: WBC, MANUALWBC, HGB, HGBPOC, HCT, HCTPOC, PLT, MCV No results found for: NA, K, CL, CO2, CA, BUN, CREAT, GLUCOSE, ANIONGAP, BCRATIO No results found for: INR, PT, PROTIMEPOC No results found for: HCGURPOC, HCGQUALUR, HCGQUAL, HCGQUANT, HCGINTACT No results found for: GLUCPOC EKG: EKG not indicated today. Other Studies/Considerations: None Postop pain management discussed yes Smoking/Tobacco Counseling: None Recommendations: None ASA Physical Status: ASA 3 - Patient with moderate systemic disease with functional limitations I have seen and examined this patient and confirm that all data is current and accurate. Yes Choice of Anesthesia/Anesthesia Plan: Proceed and General I have discussed the anesthetic options and the risks/benefits with the patient/family. Questions have been solicited and answered. Yes Juany Sin MD documented in this encounter Plan of Treatment Not on file documented as of this encounter Visit Diagnoses Not on filedocumented in this encounter Administered Medications Inactive Administered Medications - up to 3 most recent administrations Medication Order MAR Action Action Date Dose Rate Site clindamycin (CLEOCIN) IVPB 900 mg 900 mg, IV, PRE-PROCEDURE ONCE, 1 dose, Starting on Sat10/20/14 at 0908, Until Sat10/20/14 at 1219, Routine, Antibiotic Indication: Surgical prophylaxis Given 10/20/2014 11:49 AM CDT 900 mg dexamethasone (DECADRON) injection INTRA-PROCEDURE PRN, Starting on Sat10/20/14 at 1149, Until Sat10/20/14 at 1310, Routine, Anesthesia Intra-op Given 10/20/2014 11:49 AM CDT 8 mg fentaNYL PF (SUBLIMAZE) 50 mcg/mL injection INTRA-PROCEDURE PRN, Starting on Sat10/20/14 at 1137, Until Sat10/20/14 at 1310, Routine, Anesthesia Intra-op Given 10/20/2014 11:40 AM CDT 50 mcg Given 10/20/2014 11:37 AM CDT 100 mcg glycopyrrolate (ROBINUL) injection INTRA-PROCEDURE PRN, Starting on Sat10/20/14 at 1227, Until Sat10/20/14 at 1310, Routine, Anesthesia Intra-op Given 10/20/2014 12:27 PM CDT 0.4 mg lidocaine 2 % (XYLOCAINE) injection INTRA-PROCEDURE PRN, Starting on Sat10/20/14 at 1140, Until Sat10/20/14 at 1310, Other (See Comment), Routine, Anesthesia Intra-op Given 10/20/2014 11:40 AM CDT 100 mg midazolam (VERSED) injection INTRA-PROCEDURE PRN, Starting on Sat10/20/14 at 1130, Until Sat10/20/14 at 1310, Routine, Anesthesia Intra-op Given 10/20/2014 11:30 AM CDT 4 mg ondansetron (ZOFRAN) 4 mg/2 mL injection INTRA-PROCEDURE PRN, Starting on Sat10/20/14 at 1249, Until Sat10/20/14 at 1310, Nausea/Emesis, Routine, Anesthesia Intra-op Given 10/20/2014 12:49 PM CDT 4 mg propofol (DIPRIVAN) injection INTRA-PROCEDURE PRN, Starting on Sat10/20/14 at 1140, Until Sat10/20/14 at 1310, Anesthesia Intra-op Given 10/20/2014 11:40 AM CDT 200 mg rocuronium (ZEMURON) injection INTRA-PROCEDURE PRN, Starting on Sat10/20/14 at 1140, Until Sat10/20/14 at 1310, Routine, Anesthesia Intra-op Given 10/20/2014 11:40 AM CDT 20 mg documented in this encounter Care Teams Etl Tester Relationship Specialty Start Date End Date Gulshan Mena DO PCP - General Internal Medicine 04/22/11 01/25/15 documented as of this encounter
--- OUTSIDE RECORDS SUMMARY | 2024-02-12 05:14 | XMS_ITS | Encounter Summary ---
Author Organization [employer] Address [address] [place] [address] Care Team Providers Care Hydroelectric Production Manager Name Role Phone Gulshan Mena DO Primary Care Provider [phone] Encounter Details Date Type Department Care Team (Late st Contact Info) Description 05/29/2023 External Device Data [facility] ABSTRACTION Provider, Abstract [...] filedocumented in this encounter Care Teams Hydroelectric Production Manager Relationship Specialty Start Date End Date Gulshan Mena DO [facility] Antony Rai [place] [address] PCP - General 01/26/15 documented as of this encounter
--- OUTSIDE RECORDS SUMMARY | 2024-02-12 05:14 | XMS_ITS | Encounter Summary ---
Author Organization [employer] Address [address] [place] [address] Care Team Providers Care Wire Wheeler Name Role Phone Gulshan Mena DO Primary Care Provider [phone] Encounter Details Date Type Department Care Team (Late st Contact Info) Description 06/18/2023 External Device Data [facility] ABSTRACTION Provider, Abstract [...] on filedocumented in this encounter Care Teams Wire Wheeler Relationship Specialty Start Date End Date Gulshan Mena DO [facility] [address]y Rai [place] [address] PCP - General 01/26/15 documented as of this encounter
--- OUTSIDE RECORDS SUMMARY | 2024-02-12 05:14 | XMS_ITS | Encounter Summary ---
Author Organization [facility] Address [address] [place] [address] Care Team Providers Care Bindery Leadperson Name Role Phone Gulshan Mena DO Primary Care Provider Reason for Visit * Auth/Cert Specialty Diagnoses / Procedures Referred By Padmini vogt Referred To Contact General Surgery Diagnoses DENTAL CARIES Procedures [facility] [address] [place] [address] Referral ID Status Reason Start Date Expiration Date Visits Re quested Visits Authorized [id number] 1 1 Encounter Details Date Type Department Care Team (Latest Contact Info) Description 12/06/2016 5:22 AM CDT - 12/06/2016 11:42 AM CDT Hospital Encounter [facility] [address] [place] [address] Dereck Dunbar, GUS [address] [facility] [address] [place] [address] Discharge Disposition: Home or Self Care Social [...] Sign Reading Time Taken Comments Blood Pressure 120/76 12/06/2016 11:13 AM CDT Pulse 78 12/06/2016 11:13 AM CDT Temperature 36 ??C (96.8 ??F) 12/06/2016 11:13 AM CDT Respiratory Rate 20 12/06/2016 11:13 AM CDT Oxygen Saturation 96% 12/06/2016 11:13 AM CDT Inhaled Oxygen Concentration - - Weight 86.2 kg (190 lb) 12/06/2016 6:01 AM CDT Height 172.7 cm (5' 8 ) 12/06/2016 6:01 AM CDT Body Mass Index 28.89 12/06/2016 6:01 AM CDT documented in this encounter Discharge Summaries * Dereck Dunbar DDS - 12/06/2016 9:08 AM CDT Pt to be discharged when anesthesia criteria met. Pt to have soft diet today, resume normal diet tomorrow. Pt to have clear liquids today, normal fluid intake tomorrow. Pt to have OTC pain meds as needed. Pt to be up and ambulatory prn. Pt to be discharged when anesthesia criteria met. documented in this encounter Discharge Instructions * Discharge Instructions* Damaris Wright RN - 12/06/2016 10:28 AM CDT SAFETY For the next 24 hours, [...] or come to the Emergency Room at [facility] ([phone]) or the nearest Emergency Room. In an emergency, Call 911. documented in this encounter Medications at Time of Discharge Medication Sig Dispensed Refills Start Date End Date Zonisamide (ZONEGRAN) 100 mg capsuleIndications:AT HS Take [...] by mouth daily at bedtime . 02/09/2022 PHENYLEPHRINE HCL (SUDAFED PE ORAL) Take by [...] as of this encounter H&P Notes * Dereck Dunbar DDS - 12/06/2016 7:15 AM CDT Reviewed pt H&P and went over treatment for today with caregiver. Pt fine for surgery today. documented in this encounter OR Notes * Operative Report - Naida Ornelas DMD - 12/06/2016 9:33 AM CDT Operative Note: [facility] [address] [place] [address], [address] O: F: SURGEON Dr. 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 For the patient???s safety, the patient was taken to the operating roomin a controlled and monitored environment for general anesthesia and the completion of comprehensive dental care. ANESTHESIA General anesthesia, via nasal, provided by Monet Lopez MD. PROCEDURE The patient was taken to the operating room on 12/06/2016 at approximately 8:27AM. The patient was transferred from the [facility] to the operating table in the supine position where ECG, pulse oximeter and blood pressure monitors were affixed and proved to be functioning normally. The appropriate amount of anesthetic was given by the anesthesia team. The patient was intubated with a nasalendotracheal tube, which was secured in the usual fashion, and the patient was draped for a dental surgical procedure. Full mouth dental radiographs were taken and a comprehensive dental examination was performed. The status of all remaining teeth was evaluated radiographically and clinically, and a treatment p butch for the patient???s oral care was developed. After thorough suctioning of the oral cavity, a moistened throat pack was placed. Periodontal maintenance of the upper right, lower right, upper left, and lower left quadrants of the mouth was performed with a Cavitron and hand instrumentation. Dental decay was excavated on tooth #5 [place]. Following excavation of decay, composite/glass ionomer restorations were placed in the usual and customary fashion. Chemically prepared sealant placed on tooth #14. The teeth were then polished with prophy paste and fluoride gel was applied liberally over all dental surfaces. With no additional treatment needs, the oral cavity was suction and thoroughly examined for debris.The throat pack was removed, the patient was allowed to awaken, extubated, and transferred to the awaiting bed. The patient was then taken to the Post-Anesthesia Recovery Room in stable condition. The attending was present for the entire procedure. FLUIDS 250 mL lactated Ringer???s ESTIMATED BLOOD LOSS Minimal COMPLICATIONS None CONDITION Stable RONMENTAL AID documented in this encounter Miscellaneous Notes * Care Plan - Damaris Wright RN - 12/06/2016 10:27 AM CDT Potential for pain related to surgical/procedural intervention Interventions: Assess level of pain/comfort utilizing verbal/nonverbal pain scales; assess culturalor episcopalian indicators attached to pain; administer pain medications as prescribed; utilize non-pharmacologic pain control and comfort measures Expected Outcome: Patient demonstrates and reports adequate pain control Outcome Met: no s/s pain * Care Plan - Alla Ortiz RN - 12/06/2016 9:24 AM CDT Potential for pain related to surgical/procedural intervention Interventions: Assess level of pain/comfort utilizing verbal/nonverbal pain scales; assess culturalor episcopalian indicators attached to pain; administer pain medications as prescribed; utilize non-pharmacologic pain control and comfort measures Expected Outcome: Patient demonstrates and reports adequate pain control Outcome Met: patient demonstrates adequate pain control. Potential for alteration in thermoregulatory, circulatory, respiratory [...] status compatible with preoperative status Outcome Met: no drainage at surgical site. * Care Plan - Flor Basilio RN - 12/06/2016 7:12 AM CDT Pt/family questions/concerns addressed and understands preop process and flowKnowledge deficit related to procedure/environment Interventions: Assess learning needs and willingness to learn; give clear, concise explanations of the environment and sequence of events surrounding the periop experience; address patient/family questions and concerns; provide teaching as indicated, provide teaching related to postoperative pain assessment utilizing pain scales Expected Outcome: Patient verbalizes or demonstrates awareness/understanding of surgery and perioperative experience Outcome Met: Potential for anxiety related to surgical intervention Interventions: convey caring/supportive attitude; offer emotional support as needed; provide comfort measures (warm blanket, pillow, quiet environment); allow patient opportunity to verbalize concerns/fears/questions; explore coping behaviors; allow age-specific/special needs family support Expected Outcome: Patient will demonstrate decreased anxiety or adaptive coping strategies Outcome Met: * Questions/concerns addressed and ready for OR documented in this encounter Plan of Treatment Not on file documented as of this encounter Procedures Procedure Name Priority Date/Time Associated Diagnosis Comments TELEMETRY REPORT 12/06/2016 9:26 PM CDT DENTAL REHABILITATION 12/06/2016 7:00 AM CDT DENTAL CARIES Case Notes MEDICAID, REF# [id number], CPT 84274 documented in this encounter Results * TELEMETRY REPORT (12/06/2016 9:26 PM CDT) Provider Scanning ECG ORDERABLES documented in this encounter Visit Diagnoses Not on filedocumented in this encounter Administered Medications Inactive Administered Medications - up to 3 most recent administrations Medication Order MAR Action Action Date Dose Rate Site fentaNYL PF (SUBLIMAZE) 50 mcg/mL injection 25 mcg 25 mcg, IV, POST-PROCEDURE Q 3 MINUTES PRN, Starting on Emily 12/06/16 at 0821, Until Emily 12/06/16 at 1347, Pain, Moderate, For pain scale 4-6, Routine, PACU fentaNYL PF (SUBLIMAZE) 50 mcg/mL injection 50 mcg 50 mcg, IV, POST-PROCEDURE Q 3 MINUTES PRN, Starting on Emily 12/06/16 at 0822, Until Emily 12/06/16 at 1347, Pain, Severe, For pain scale 7-10, Routine, PACU lactated Ringers solution IV, at 150 mL/hr, CONTINUOUS, Starting on Emily 12/06/16 at 0730, Until Emily 12/06/16 at 1347, Routine New Bag 12/06/2016 8:34 AM CDT New Bag 12/06/2016 7:18 AM CDT 150 mL/hr midazolam (PF) (VERSED) injection 1 mg 1 mg, IV, POST-PROCEDURE Q 5 MINUTES PRN, 5 doses, Starting on Emily 12/06/16 at 0822, Until Emily 12/06/16 at 1347, Anxiety, Routine, PACU ondansetron (ZOFRAN) 4 mg/2 mL injection 4 mg 4 mg, IV, POST-PROCEDURE ONCE PRN, 1 dose, Starting on Emily 12/06/16 at 0822, Until Emily 12/06/16 at 1347, Nausea/Emesis, Routine, PACU documented in this encounter Active and Recently Administered Medications Times are shown in CDT. Continuous Medication Order 12/04/2016 12/05/2016 12/06/2016 lactated Ringers solution IV, at 150 mL/hr, CONTINUOUS, Starting on Emily 12/06/16 at 0730, Until Emily 12/06/16 at 1347, Routine 0718 (New Bag - Prov ider: Flor Basilio, MAURO)0834 (New Bag - Provider: TONO Calloway)1115 (Stopped - Provider: Damaris Wright RN) PRN Medication Order 12/04/2016 12/05/2016 12/06/2016 fentaNYL PF (SUBLIMAZE) 50 mcg/mL injection 25 mcg 25 mcg, IV, POST-PROCEDURE Q 3 MINUTES PRN, Starting on Emily 12/06/16 at 0821, Until Emily 12/06/16 at 1347, Pain, Moderate, For pain scale 4-6, Routine, PACU fentaNYL PF (SUBLIMAZE) 50 mcg/mL injection 50 mcg 50 mcg, IV, POST-PROCEDURE Q 3 MINUTES PRN, Starting on Emily 12/06/16 at 0822, Until Emily 12/06/16 at 1347, Pain, Severe, For pain scale 7-10, Routine, PACU midazolam (PF) (VERSED) injection 1 mg 1 mg, IV, POST-PROCEDURE Q 5 MINUTES PRN, 5 doses, Starting on Emily 12/06/16 at 0822, Until Emily 12/06/16 at 1347, Anxiety, Routine, PACU ondansetron (ZOFRAN) 4 mg/2 mL injection 4 mg 4 mg, IV, POST-PROCEDURE ONCE PRN, 1 dose, Starting on Emily 12/06/16 at 0822, Until Emily 12/06/16 at 1347, Nausea/Emesis, Routine, PACU sodium chloride 0.9 % irrigation solution (CANCELED) INTRA-PROCEDURE PRN, Starting on Emily 12/06/16 at 0759, Until Emily 12/06/16 at 0918, Routine, Intra-op 0759 (Given - Provid er: Dereck Dunbar DDS - Comment: with drill and PRN) documented in this encounter Care Teams Bindery Leadperson Relationship Specialty Start Date End Date Gulshan Mena DO [facility] [place] [address] PCP - General 01/26/15 documented as of this encounter
--- OUTSIDE RECORDS SUMMARY | 2024-02-12 05:14 | XMS_ITS | Encounter Summary ---
Author Organization [facility] Address [address] [place] [address] Care Team Providers Care Supervisor Customer Complaint Service Name Role Phone Gulshan Mena DO Primary Care Provider [phone] Reason for Referral * Eval and Treat (Routine) - Closed Specialty Diagnoses / Procedures Referred By Padmini t Referred To Contact Diagnoses 2019 novel [place] [address] [place] [address] Referral ID Status Reason Start Date Expiration Date V isits Requested Visits Authorized [id number] Closed Performing Dept To Review 02/27/2021 02/27/2022 1 1 ED GOODS EMBOSSING PRESS OPERATOR Encounter Details Date Type Department Care Team (Late st Contact Info) Description 02/27/2021 Orders Only [facility] [address] [address] [place] [address] [place] [address] [place] [address] 2019 novel coronavirus detected (Primary Dx) Social History Tobacco Use Types [...] or suspected to have Coronavirus / COVID-19? Yes 02/13/2021 5:02 PM MOLDED GOODS EMBOSSING PRESS OPERATOR documented as of this encounter Plan of Treatment Scheduled Referrals Name Type Priority Associated Diagnoses Orde r Schedule AMB REFERRAL TO OVID ADULT MONITORING PROGRAM Outpatient Referral Routine 2019 novel coronavirus detected Ordered: 02/27/2021 documented as of this encounter Visit Diagnoses Diagnosis 2019 novel coronavirus detected- Primary documented in this encounter Care Teams Supervisor Customer Complaint Service Relationship Specialty Start Date End Date Gulshan Mena DO [address] [place] [address] PCP - General 01/26/15 documented as of this encounter
--- OUTSIDE RECORDS SUMMARY | 2024-02-12 05:14 | XMS_ITS | Encounter Summary ---
Author Organization [employer] Address [address] [place] [address] Care Team Providers Care White Shoe Ragger Name Role Phone Gulshan Mena DO Primary Care Provider [phone] Encounter Details Date Type Department Care Team (Late st Contact Info) Description 07/09/2023 External Device Data STL ABSTRACTION Provider, Abstract [...] on filedocumented in this encounter Care Teams White Shoe Ragger Relationship Specialty Start Date End Date Gulshan Mena DO [facility] [address] [place] [address] PCP - General 01/26/15 documented as of this encounter
--- OUTSIDE RECORDS SUMMARY | 2024-02-12 05:14 | XMS_ITS | Encounter Summary ---
Author Organization [facility] Address [address] [place] [address] Care Team Providers Care Manager Club Name Role Phone Gulshan Mena DO Primary Care Provider Chapo cadet Reason for Visit * Auth/Cert - Closed Specialty Diagnoses / Procedures Referred By Padmini vogt Referred To Contact General Surgery Diagnoses DENTAL CARIES Procedures DENTAL REHABILITATION [facility] [address] [place] [address] Referral ID Status Reason Start Date Expiration Date Visits Re quested Visits Authorized [id number] Closed 1 1 Encounter Details Date Type Department Care Team (Latest Contact Info) Description 10/20/2014 8:14 AM CDT - 10/20/2014 2:54 PM CDT Hospital Encounter [facility] [address] [place] [address] Dereck Dunbar, GUS [address] [facility] [address] [place] [address] Discharge Disposition: Home or Self [...] or come to the Emergency Room at [facility] ([phone]) or the nearest Emergency Room. In an [...] CDT Operative Note: [facility] [address] [place] [address], [address] O: F: SURGEON GUS Garcia Dr[address] DDS PGY I FOREMAN OR SUPERVISOR AND OPERATOR Alethea Mac PREOPERATIVE DIAGNOSIS 1.)Dental Caries 2.)Periodontal [...] 12:00. The patient was transferred from the [facility] to the operating table in [...] 10:13 AM CDT I called Gudelia Linares, linesperson for [employer] to inquire on status of Operative and Blood Consents that I had been told were forwarded to Gladis Mariano (Public Information Systems Security Manager andpt's court appointed guardian). She stated she will find out about same and fax to us at [phone] or call me back. * Anny-OP - Chikis Livingston RN - 10/14/2014 11:[address] Noble's office at to check status of request for Anny- anesthesia recommendations of VNS form. They stated they would relay message. * Anny-OP - Chikis Livingston RN - 10/12/2014 3:25 PM CDT Pre op instr sheet faxed to Pau at [employer] at [phone]. I called and left a message with Dr Noble's office and left VM message requesting status of clearance request and device management recommendations for VMS faxed on 10/08. * Anny-OP - Chikis Livingston RN - 10/08/2014 10:32 AM CDT I contacted Gudelia Linares (care-information security specialist) [facility]. Pt's neurologist is Dr. Noble phone: . I faxed clearance request and request for Anny- Anesthesia Management recommendation for VNS to Dr. Noble's office at [phone]. Yanely in his office stated they would [...] same. Call placed to Gudelia Linares (care- information security specialist) at [facility] at [phone] (cell) to obtain name and number of patient's neurologist who manages patient's VNS. VM message left. * Anny-OP - Chikis Livingston RN - 10/06/2014 1:02 PM CDT [facility] care-information security specialist stated she was having operative consent and [...] pain/comfort utilizing verbal/nonverbal pain scales; assess culturalor judaism indicators attached to pain; administer pain medications [...] AM CDT DENTAL CARIES Case Notes MEDICAID, #[id number] PER DELLA, CPT: 71793 documented in this encounter Results * TELEMETRY [...] Bag 10/20/2014 10:02 AM CDT 150 mL/hr documented in this encounter Active and [...] 1002 (New Bag - Prov ider: Jess Green RN)1130 (Canceled Entry - Provider: Yordy Dempsey CRNA)1310 (Fluid Volume - Provider: Yordy Dempsey CRNA)1435 (Stopped - Provider: Katie Melvin RN) PRN Medication Order 10/18/2014 10/19/2014 10/20/2014 sodium chloride 0.9 % irrigation irrigation (CANCELED) INTRA-PROCEDURE PRN, Starting on Sat10/20/14 at 1240, Until Sat10/20/14 at 1306, Routine, Intra-op 1240 (Given - Provid er: Dereck Dunbar DDS) documented in this encounter Care Teams Manager Club Relationship Specialty Start Date End Date Gulshan Mena DO PCP - General Internal Medicine 04/22/11 01/25/15 documented as of this encounter
--- OUTSIDE RECORDS SUMMARY | 2024-02-12 05:14 | XMS_ITS | Encounter Summary ---
Author Organization [employer] Address [address] [place] [address] Care Team Providers Care Airplane Inspector Name Role Phone Gulshan Mena DO Primary Care Provider [phone] Encounter Details Date Type Department Care Team (Late st Contact Info) Description 04/01/2023 External Device Data STL ABSTRACTION Provider, Abstract [...] filedocumented in this encounter Care Teams Airplane Inspector Relationship Specialty Start Date End Date Gulshan Mena DO [address] [place] [address] PCP - General 01/26/15 documented as of this encounter
--- OUTSIDE RECORDS SUMMARY | 2024-02-12 05:14 | XMS_ITS | Encounter Summary ---
Author Organization [facility] Address [address] [place] [address] Care Team Providers Care Rehabilitation Services Director Name Role Phone Gulshan Mena DO Primary Care Provider Chapo cadet Reason for Visit * Reason Comments Epilepsy Sent by Dr. Douglas for further discussion of vagal nerve stimulator placement for treatment of intractable seizures. Encounter Details Date Type Department Care Team (Latest Contact Info) Description 10/14/2013 1:00 PM CDT Office Visit [facility] - [place] [address] [place] [address] [address] [place] [address] Hieu Macias MD [address] [place] [address] [place] syndrome with intractable epilepsy (Primary Dx); Development delay; Autism; ADHD (attention deficit hyperactivity disorder); Seizure disorder, complex partial, with intractable epilepsy Social History Tobacco Use Types Packs/Day Years [...] Sign Reading Time Taken Comments Blood Pressure 128/81 10/14/2013 1:14 PM CDT Pulse 70 10/14/2013 1:14 PM CDT Temperature - - Respiratory Rate - - Oxygen Saturation - - Inhaled Oxygen Concentration - - Weight 80.3 kg (177 lb) 10/14/2013 1:14 PM CDT Height 167.6 cm (5' 6 ) 10/14/2013 1:14 PM CDT Body Mass Index 28.57 10/14/2013 1:14 PM CDT documented in this encounter Progress Notes * Hieu Macais MD - 10/15/2013 2:48 PM CDT HPI Chief Complaint: Chief Complaint [...] Psychiatric disorder anxiety ??? Allergic rhinitis ??? [place] syndrome Past Surgical History Procedure Laterality Date [...] and leg swelling. Claudication reported: YES NO ([id number]) Gastrointestinal: Negative for nausea, vomiting, abdominal pain, diarrhea, constipation, blood in stool, abdominal distention, anal bleeding and rectal pain. GERD, Heartburn reported: YES NO ([id number]) Genitourinary: Negative for dysuria, urgency, frequency, hematuria, [...] Patient Active Problem List Diagnosis Code ??? [place] syndrome with intractable epilepsy 345.01 ??? Development delay 783.40 ??? Autism 299.00 ??? ADHD (attention deficit hyperactivity disorder) 314.01 ??? Seizure disorder, complex partial, with intractable epilepsy 345.41 Plan: 1.The risks, benefits, side effects and alternatives to placement of a left vagal nerve electrode and neurostimulator generator were discussed with the adult ese teacher in detail. The side effects of voice changes, cough, and local pain were described in great detail to them, in addition to the usual surgical and anesthetic risks of the procedure. 2. The patient/adult ese teacher requested the procedure be performed and will coordinate with the mother to have her come and give consent to proceed. 3. The surgery will be performed under general anesthesia and will be scheduled in the near future. Hieu Macias MD, FACS ICD-9-CM ICD-10-CM 1. [place]-G[place] syndrome with intractable epilepsy 345.01 G40.814 2. Development delay 783.40 R62.50 3. Autism 299.00 F84.0 4. ADHD (attention deficit hyperactivity disorder) 314.01 F90.9 5. Seizure disorder, complex partial, with intractable epilepsy 345.41 G40.219 * Teena Kwon RN - 10/14/2013 1:12 PM CDT Sent by Dr. Douglas for further discussion of vagal nerve stimulator placement for treatment of intractable seizures. Seizures started at the age of 13. No cause. Patient has been in the residential care facility for 7 years. Slowly losing his vocabulary. Patient has two different kinds of seizures. Has several seizures weekly. documented in this encounter H&P Notes * Hieu Macias MD - 10/15/2013 2:58 PM [...] Psychiatric disorder anxiety ??? Allergic rhinitis ??? [place] syndrome Past Surgical History Procedure Laterality Date [...] and leg swelling. Claudication reported: YES NO ([id number]) Gastrointestinal: Negative for nausea, vomiting, abdominal pain, diarrhea, constipation, blood in stool, abdominal distention, anal bleeding and rectal pain. GERD, Heartburn reported: YES NO ([id number]) Genitourinary: Negative for dysuria, urgency, frequency, hematuria, [...] Patient Active Problem List Diagnosis Code ??? [place] syndrome with intractable epilepsy 345.01 ??? Development delay 783.40 ??? Autism 299.00 ??? ADHD (attention deficit hyperactivity disorder) 314.01 ??? Seizure disorder, complex partial, with intractable epilepsy 345.41 Plan: 1.The risks, benefits, side effects and alternatives to placement of a left vagal nerve electrode and neurostimulator generator were discussed with the adult ese teacher in detail. The side effects of voice changes, cough, and local pain were described in great detail to them, in addition to the usual surgical and anesthetic risks of the procedure. 2. The patient/adult ese teacher requested the procedure be performed and will coordinate with the mother to have her come and give consent to proceed. 3. The surgery will be performed under general anesthesia and will be scheduled in the near future. Hieu Macias MD, [facility] ICD-9-CM ICD-10-CM 1. 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 Development delay 783.40 R62.50 3. Autism 299.00 F84.0 4. ADHD (attention deficit hyperactivity disorder) 314.01 F90.9 5. Seizure disorder, complex partial, with intractable epilepsy 345.41 G40.219 documented in this encounter Miscellaneous Notes * Patient Instructions - Neto Hopkins - 10/14/2013 2:39 PM CDT Travis is scheduled for implantation of vagal nerve stimulator generator and electrodes / general /sop on 10/27/13 at 7:[address] [facility]. He has been instructed to arrive at 6:30 am on the date of surgery. He will pre-register by phone with the Surgery Center. No pre-op testing is needed per Dr. Macias. The patient is not to eat or drink after midnight, with the exception of a small sip ofwater with medications, and will need to have a driver service technician available upon discharge. All meds should beheld the morning of surgery. Written and verbal instructions have been given to the patient's caregivers and they verbalize understanding. documented in this encounter Plan of Treatment Not on file documented as of this encounter Visit Diagnoses Diagnosis [place] syndrome with intractable epilepsy- Primary Generalized nonconvulsive epilepsy with intractable epilepsy Development delay Unspecified delay in development Autism Autistic disorder, current or active state ADHD (attention deficit hyperactivity disorder) Attention deficit disorder with hyperactivity Seizure disorder, complex partial, with intractable epilepsy Localization-related (focal) (partial) epilepsy and epileptic syndromes with complex partial seizures, with intractable epilepsy documented in this encounter Care Teams Rehabilitation Services Director Relationship Specialty Start Date End Date Gulshan Mena DO PCP - General Internal Medicine 04/22/11 01/25/15 documented as of this encounter
--- OUTSIDE RECORDS SUMMARY | 2024-02-12 05:14 | XMS_ITS | Encounter Summary ---
Author Organization [facility] Address [address] [place] [address] Care Team Providers Care Dental Practice Manager Name Role Phone Gulshan Mena DO Primary Care Provider [phone] Encounter Details Date Type Department Care Team (Late st Contact Info) Description 01/26/2023 External Device Data [facility]STRACTION Provider, Abstract [...] on filedocumented in this encounter Care Teams Dental Practice Manager Relationship Specialty Start Date End Date Gulshan Mena DO [address] [place] [address] PCP - General 01/26/15 documented as of this encounter
--- OUTSIDE RECORDS SUMMARY | 2024-02-12 05:14 | XMS_ITS | Encounter Summary ---
Author Organization [facility] Address [address] [place] [address] Care Team Providers Care Manager Insurance Name Role Phone Gulshan Mena DO Primary Care Provider [phone] Encounter Details Date Type Department Care Team [...] filedocumented in this encounter Care Teams Manager Insurance Relationship Specialty Start Date End Date Gulshan Mena DO [facility] [address] [place] [phone] PCP - General 01/26/15 documented as of this encounter
--- OUTSIDE RECORDS SUMMARY | 2024-02-12 05:14 | XMS_ITS | Encounter Summary ---
Author Organization [facility] Address [address] [place] [address] Care Team Providers Care Magazine Hand Name Role Phone Gulshan Mena DO Primary Care Provider [phone] Encounter Details Date Type Department Care Team [...] on filedocumented in this encounter Care Teams Magazine Hand Relationship Specialty Start Date End Date Gulshan Mena DO [facility] [address] [place] [address] PCP - General 01/26/15 documented as of this encounter
--- OUTSIDE RECORDS SUMMARY | 2024-02-12 05:14 | XMS_ITS | Encounter Summary ---
Author Organization [facility] Address [address] [place] [address] [address] Care [address] Freight Brake Coupler Name Role Phone Gulshan Mena DO Primary Care Provider Chapo cadet Encounter Details Date Type Department Care Team (Late st Contact Info) Description 10/01/2013 Abstract [facility]ists - [place] [address] [place] [id number] Hieu Macias MD [address] [place] [address] Social History Tobacco Use Types Packs/Day Years Used Date Smoking Tobacco: Never Assessed Sex and Gender Information Value Date Recorded Sex Assigned at Not on file Gender Identity Not on file Sexual Orientation Not on file documented as of this encounter Plan of Treatment Not on file documented as of this encounter Visit Diagnoses Not on filedocumented in this encounter Care Teams Road Freight Brake Coupler Relationship Specialty Start Date End Date Gulshan Mena DO PCP - General Internal Medicine 04/22/11 01/25/15 documented as of this encounter
--- OUTSIDE RECORDS SUMMARY | 2024-02-12 05:14 | XMS_ITS | Encounter Summary ---
Author Organization [facility] Address [address] [place] [address] Care Team Providers Care Utility Sales And Service Manager Name Role Phone Gulshan Mena DO Primary Care Provider [phone] Reason for Visit * Reason Comments Ankle Pain right ankle, was see n on saturday, wants x ray * Auth/Cert Specialty Diagnoses / Procedures Referred By Contac t Referred To Contact Urgent Care [address] [place] [address] Referral ID Status Reason Start Date Expiration Date Visits Re quested Visits Authorized [id number] 1 1 Encounter Details Date Type Department Care Team (Latest Contact Info) Description 07/09/2017 2:48 PM CDT - 07/09/2017 3:36 PM CDT Hospital Encounter [facility] [address] [place] [id number] Right ankle swelling (Primary Dx) Discharge Disposition: Home or Self [...] Sign Reading Time Taken Comments Blood Pressure 111/78 07/09/2017 2:45 PM CDT Pulse 77 07/09/2017 2:45 PM CDT Temperature - - Respiratory Rate 16 07/09/2017 2:45 PM CDT Oxygen Saturation 97% 07/09/2017 2:45 PM CDT Inhaled Oxygen Concentration - - Weight 85.3 kg (188 lb) 07/09/2017 2:45 PM CDT Height 165.1 cm (5' 5 ) 07/09/2017 2:45 PM CDT Body Mass Index 31.28 07/09/2017 2:45 PM CDT documented in this encounter Discharge Instructions * Discharge Instructions* Liberty Worrell, COMPLIANCE REVIEW SPECIALIST - 07/09/2017 3:28 PM CDT Images from the original note were not included. Right ankle Xray negative for fracture. Follow up with a primary care provider if symptoms persist/new symptoms develop and report to the Emergency Department for any new or worsening symptoms. Please follow with your primary care physician, Gulshan Mena, DO in 48-72 hours if NOT better. If your symptoms worsen recheck at your local ER. Your health and well being are extremely important to us. We strive for excellence in everything wedo and Excellent ratings in overall care. You may receive a survey from [facility] in follow up asking your opinion. Our goal is to be rated Excellent! Thanks for your support. If you do not have a primary doctor, [facility] offers a free referral service by calling [phone], , or toll free . This information can also be accessed on the web at [email or web address] If a test or physician referral was ordered for you today, you can schedule these by calling Central Testing Scheduling (CTS),[phone], or Central Referral Scheduling (CRS), during normal work hours. Inform them you had a test or referral ordered during your visit at the [facility]. If you are female and on hormone based control there is a slight increase in risk with the use of antibiotics, the patient is asked to back up her OCP with condom or other method during this (or any) cycle during which she is taking antibiotics. IMPORTANT: You were examined and treated today on an urgent basis. This was not a substitute for, nor an effort to provide, complete and ongoing medical care. On arrival to [facility], you may have reported taking home medications that will be listed on your After Visit Summary. If applicable, this regimen is not being changed, except as noted and discussed with you. You should follow up with your primary care physician for ongoing medication management. This AVS (after visit summary) is a printed copy of the form that is part of your permanent electronic medical record. By accepting this form you acknowledge that your tests, diagnosis, treatment plan, and follow up care has been discussed with you by appropriate medical personnel. Thank-you again for choosing [facility]. documented in this encounter Medications at Time of Discharge Medication Sig Dispensed Refills Start Date End Date magnesium hydroxide (MILK OF MAGNESIA) 400 mg/5 [...] O800. 02/14/2021 documented as of this encounter Nursing Notes * Rea Rowe RN - 07/09/2017 2:50 PM CDT Travis Beebe is a 32 y.o. male. Patient presents in a wheelchair to exam room accompanied by care provider with complaints of right ankle pain. Pt is non verbal. He has been limping for the past fewdays. No known injury. Swelling off and on. Patient interacting appropriately. A&O; Respirations non labored; Skin pink, warm & dry. documented in this encounter ED Notes * Liberty Worrell FNP - 07/09/2017 1:51 PM CDT HISTORY OF PRESENT ILLNESS Travis Beebe, a 32 y.o. male presents with a Chief Complaint of Ankle Pain (right ankle, was seen on saturday, wants x ray) Subjective Presents today with caregiver with intermittent right ankle swelling for the past four days. History is obtained from the caregiver as the patient is nonverbal. Caregiver denies any injury or trauma.Caregiver states patient was seen here two days ago and requesting to have right ankle Xray today. Caregiver denies any swelling in right ankle since three days ago. History provided by: A caregiver Ankle Pain Associated symptoms: no fever REVIEW OF SYSTEMS Review of Systems Constitutional: Negative for chills and fever. Musculoskeletal: Right ankle swelling PAST MEDICAL HISTORY REVIEWED MEDICAL: Patient has a past medical history of ADHD (attention deficit hyperactivity disorder); Adjustment reaction with aggression; Allergic rhinitis; Autism; Constipation; Developmental delay disorder; Emmett-Gastaut syndrome; Other general symptoms(780.99); Psychiatric disorder; S/P placement of VNS (vagus nerve stimulation) device; Seizure disorder; Static encephalopathy; and Tremors of nervous system. He also has no past medical history of Malignant hyperthermia; Pseudocholinesterase deficiency; orUnspecified adverse effect of anesthesia. SURGICAL: Patient has a past surgical history that includes hx wisdom teeth extraction (2008); pr imp stim,cranial,subq,>1 array (Left, 10/27/2013); pr dental surgery procedure (N/A, 10/20/2014); and pr dentalsurgery procedure (N/A, 12/06/2016). FAMILY: Patient's family history includes [...] reports that he does not drink alcohol or use drugs. No history on file. Social History Other Topics Concern ??? Not on file PROBLEM LIST: Patient has Emmett-Gastaut syndrome with intractable epilepsy; Development delay; Autism; ADHD (attention deficit hyperactivity disorder); and Seizure disorder, complex partial, with intractable epilepsy on his problem list. ALLERGIES Amoxil [amoxicillin] and Tegretol [carbamazepine] HOME MEDICATIONS Discharge Medication List as of 07/09/2017 3:29 PM CONTINUE these medications which have NOT CHANGED Details magnesium hydroxide (MILK OF MAGNESIA) 400 mg/5 mL suspension Take 30 mL by mouth 1 time daily as needed for Constipation. !! Zonisamide (ZONEGRAN) 100 mg capsule Take 400 mg by mouth. codeine-guaiFENesin (ROBITUSSIN-AC) 10-100 mg/5 mL Liquid Take 10 mL by mouth Every 4-6 hours PRN . GUAIFENESIN (MUCINEX ORAL) Take 400 mg by [...] as needed for Pain., Disp-60 Tab, R-0 CLOBAZAM ORAL Take 40 mg by mouth daily at bedtime . ergocalciferol (VITAMIN D2) 50,000 unit capsule Take 50,000 Units by mouth every 7 days Saturday. multivitamin (DAILY-KALYN) tablet Take 1 Tab by mouth daily. PHENYLEPHRINE HCL (SUDAFED PE ORAL) Take by mouth every 4 hours as needed. DIAZEPAM (DIASTAT RECTAL) Insert by rectum. GIVE dIASTAT 20 MG RECTALLY FOR SEIZURES LASTING MORE THAN 5 MINUTES, IF STILL CONVULSING 30 MINUTES LATER GIVE AN ADDITIONAL 10 MG lamoTRIgine (LaMICtal) 150 mg tablet Take 300 mg by mouth 3 times daily. loratadine (CLARITIN) 10 mg Oral tablet Take 10 mg by mouth daily. propranolol SR 24 hour (INDERAL LA) 160 mg Oral Cs24 Take 160 mg by mouth daily. docusate sodium (COLACE) 100 mg Oral capsule Take 100 mg by mouth 2 times daily. carbamide peroxide (DEBROX) 6.5 % OT Drop 5 Drops 2 times daily. lacosamide (VIMPAT) 100 mg Oral tablet Take 200 mg by mouth 2 times daily . busPIRone (BUSPAR) 10 mg Oral tablet Take 10 mg by mouth 3 times daily. !! Zonisamide (ZONEGRAN) 100 mg Oral capsule Take 200 mg by mouth daily AT O800. LACTOSE-FREE FOOD (ENSURE ORAL) Take by mouth 1 time daily as needed. bisacodyl (DULCOLAX) 10 mg Suppository Insert 10 mg by rectum daily. !! - Potential duplicate medications found. Please discuss with provider. Objective PHYSICAL EXAM INITIAL VS BP: 111/78 (07/09/17 1445), Heart Rate: (not recorded), Pulse: 77 (07/09/17 1445), Resp: 16 (07/09/17 144), Temp: (not recorded), Temp src: (not recorded), SpO2: 97 % (07/09/17 1445), Pain Score: (not recorded), Height: 5' 5 (165.1 cm) (07/09/17 1445), Weight: 85.3 kg (188 lb) (07/09/17 144), BMI (Calculated): 31.28 (07/09/17 144) No LMP for male patient. Physical Exam Constitutional: Vital signs are normal. He appears well-developed and well-nourished. HENT: Head: Normocephalic. Neck: Normal range of motion. Neck supple. Cardiovascular: Normal rate, regular rhythm and normal heart sounds. Exam reveals no friction rub. No murmur heard. Pulmonary/Chest: Effort normal and breath sounds normal. No respiratory distress. Musculoskeletal: Right foot: Normal. There is no swelling. Left foot: Normal. There is no swelling. Bilateral lower extremities with normal skin color and no skin changes. No edema, erythema, or ecchymosis noted. Neurological: He is alert. Skin: Skin is warm and dry. No rash noted. Nursing note and vitals reviewed. DIAGNOSTICS LAB: RADIOLOGY: XR ANKLE 3+ VW RIGHT XR ANKLE 3+ VW RIGHT Preliminary Result IMPRESSION: No acute abnormalities. DICTATION LOCATION: Location [address] [place] [address] EKG: PROCEDURES Procedures MEDICAL DECISION MAKING AND PLAN OF CARE REEVALUATION CASE DISCUSSED Discharge Medication List as of 07/09/2017 3:29 PM CONTINUE these medications which have NOT CHANGED Details magnesium hydroxide (MILK OF MAGNESIA) 400 mg/5 mL suspension Take 30 mL by mouth 1 time daily as needed for Constipation. !! Zonisamide (ZONEGRAN) 100 mg capsule Take 400 mg by mouth. codeine-guaiFENesin (ROBITUSSIN-AC) 10-100 mg/5 mL Liquid Take 10 mL by mouth Every 4-6 hours PRN . GUAIFENESIN (MUCINEX ORAL) Take 400 mg by [...] as needed for Pain., Disp-60 Tab, R-0 CLOBAZAM ORAL Take 40 mg by mouth daily at bedtime . ergocalciferol (VITAMIN D2) 50,000 unit capsule Take 50,000 Units by mouth every 7 days Saturday. multivitamin (DAILY-KALYN) tablet Take 1 Tab by mouth daily. PHENYLEPHRINE HCL (SUDAFED PE ORAL) Take by mouth every 4 hours as needed. DIAZEPAM (DIASTAT RECTAL) Insert by rectum. GIVE dIASTAT 20 MG RECTALLY FOR SEIZURES LASTING MORE THAN 5 MINUTES, IF STILL CONVULSING 30 MINUTES LATER GIVE AN ADDITIONAL 10 MG lamoTRIgine (LaMICtal) 150 mg tablet Take 300 mg by mouth 3 times daily. loratadine (CLARITIN) 10 mg Oral tablet Take 10 mg by mouth daily. propranolol SR 24 hour (INDERAL LA) 160 mg Oral Cs24 Take 160 mg by mouth daily. docusate sodium (COLACE) 100 mg Oral capsule Take 100 mg by mouth 2 times daily. carbamide peroxide (DEBROX) 6.5 % OT Drop 5 Drops 2 times daily. lacosamide (VIMPAT) 100 mg Oral tablet Take 200 mg by mouth 2 times daily . busPIRone (BUSPAR) 10 mg Oral tablet Take 10 mg by mouth 3 times daily. !! Zonisamide (ZONEGRAN) 100 mg Oral capsule Take 200 mg by mouth daily AT O800. LACTOSE-FREE FOOD (ENSURE ORAL) Take by mouth 1 time daily as needed. bisacodyl (DULCOLAX) 10 mg Suppository Insert 10 mg by rectum daily. !! - Potential duplicate medications found. Please discuss with provider. LAST VS BP: 111/78 (07/09/17 1445), Heart Rate: (not recorded), Pulse: 77 (07/09/17 1445), Resp: 16 (07/09/17 1445), Temp: (not recorded), Temp src: (not recorded), SpO2: 97 % (07/09/17 1445), Pain Score: (not recorded) CLINICAL IMPRESSION Final diagnoses: [M25.471] Right ankle swelling (Primary) Orders Placed This Encounter ??? XR ANKLE 3+ VW RIGHT Right ankle Xray negative for fracture. Instructed caregiver to follow up with PCP as needed and togo to the emergency room for worsening pain or numbness/tingling. CODING Coding DISPOSITION, EDUCATION AND MEDICATION RECONCILIATION Medications reconciled. See after visit summary for patient education on discharged patients. documented in this encounter Plan of Treatment Not on file documented as of this encounter Procedures Procedure Name Priority Date/Time Associated Diagnosis Comments XR ANKLE 3+ VW RIGHT Stat 07/09/2017 2:59 PM CDT documented in this encounter Results * XR ANKLE 3+ VW RIGHT (07/09/2017 2:59 PM CDT) Anatomical Region Laterality Modality Ankle / Foot Computed Radiogr aphy 07/09/2017 2:59 PM CDT Impressions 07/09/2017 4:41 PM CDT IMPRESSION: No acute abnormalities. DICTATION LOCATION: Location [address] [place] [address] Narrative 07/09/2017 4:41 PM CDT RIGHT ANKLE 3 VIEWS DATE: 07/09/2017 2:59 PM HISTORY: Pain FINDINGS: No joint effusion is seen. Joint spaces are preserved. No fractures are identified. Bone density is normal. No foreign bodies are appreciated. Procedure Note Otoniel Mims MD - 07/09/2017 RIGHT ANKLE 3 VIEWS DATE: 07/09/2017 2:59 PM HISTORY: Pain FINDINGS: No joint effusion is seen. Joint spaces are preserved. No fractures are identified. Bone density is normal. No foreign bodies are appreciated. IMPRESSION: No acute abnormalities. DICTATION LOCATION: Location [address] [place] [address] Aisha Miller MD DIAGNOSTIC IMAGING O RDERABLES documented in this encounter Visit Diagnoses Diagnosis Right ankle swelling- Primary Effusion of ankle and foot joint documented in this encounter Care Teams Utility Sales And Service Manager Relationship Specialty Start Date End Date Gulshan Mena DO [address] [place] [phone] PCP - General 01/26/15 documented as of this encounter
--- OUTSIDE RECORDS SUMMARY | 2024-02-12 05:14 | XMS_ITS | Encounter Summary ---
Author Organization [facility] Address [address] [place] [address] Care Team Providers Care Electronic Induction Hardener Name Role Phone Gulshan Mena DO Primary Care Provider Chapo cadet Reason for Visit * Reason Comments Follow Up 3 weeks s/p VNS impl ant. Encounter Details Date Type Department Care Team ([facility] st Contact Info) Description 11/16/2013 10:45 AM CDT Office Visit [facility] [place] [id number] [place] [address] Hieu Macias MD [address] [place] [phone] Follow-up examination, following other surgery (Primary Dx) Social History Tobacco Use Types [...] Sign Reading Time Taken Comments Blood Pressure 111/76 11/16/2013 10:50 AM CDT Pulse - - Temperature - - Respiratory Rate - - Oxygen Saturation - - Inhaled Oxygen Concentration - - Weight 80.3 kg (177 lb) 11/16/2013 10:50 AM CDT Height 167.6 cm (5' 6 ) 11/16/2013 10:50 AM CDT Body Mass Index 28.57 11/16/2013 10:50 AM CDT documented in this encounter Progress Notes * Hieu Macias MD - 11/16/2013 4:44 PM CDT CC: Follow up visit from Vagal Nerve Stimulator Placement Surgery 3 weeks ago. HPI: Travis Beebe is a 28 y.o. male who is s/p VNS placement. The patient has no complaint of painor discomfort at the surgical site. There has been no drainage or significant swelling at the surgical site. The patient has no complaint of redness at the surgical site. The device has been activated. The patient reports minimal in degree side effects from the device activation. Since device activation, the patient has only had one seizure. The device was interrogated, the programming was reviewed (but not changed) and the lead impedence was normal at 3373 [address]ms. PE: BP 111/76 Ht 5' 6 (1.676 m) Wt 177 lb (80.287 kg) BMI 28.58 kg/m2 Incisions- The neck incision is healing well without sign of infection, hematoma, or seroma. The chest incision is also healing normally. Impression: Normal recovery following recent VNS placement surgery. Plan: No return appointment scheduled. Return if problem recurs, worsens, or new problem develops Patient care will be returned to the primary care physician Hieu Macias MD, FACS * Marina Melendrez RN - 11/16/2013 10:50 AM CDT 3 weeks s/p VNS implant. Patient doing well. Patient 1 seizure this month. Patient has problems with constipation. Last BM was Saturday. Patient was given Milk of Mag last night. documented in this encounter Plan of Treatment Not on file documented as of this encounter Visit Diagnoses Diagnosis Follow-up examination, following other surgery- Primary documented in this encounter Care Teams Electronic Induction Hardener Relationship Specialty Start Date End Date Gulshan Mena DO PCP - General Internal Medicine 04/22/11 01/25/15 documented as of this encounter
--- OUTSIDE RECORDS SUMMARY | 2024-02-12 05:14 | XMS_ITS | Encounter Summary ---
[facility] Organization [facility] Address [address] [place] [address] Care Team Providers Care Solderer Torch Name Role Phone Gulshan Mena DO Primary Care Provider [phone] Reason for Visit * Reason Comments Ankle swelling right ankle swelling X 1 day [id number]/27/18 1412 * Auth/Cert Specialty Diagnoses / Procedures Referred By Contac t Referred To Contact Urgent Care [address] [place] [address] Referral ID Status Reason Start Date Expiration Date Visits Re quested Visits Authorized [id number] 1 1 Encounter Details Date Type Department Care Team (Late st Contact Info) Description 07/07/2017 1:59 PM CDT - 07/07/2017 3:11 PM CDT Hospital Encounter [address] [place] [address] Aisha Miller MD [address] [place] [id number] Venous stasis (Primary Dx) Discharge Disposition: Home or Self [...] Sign Reading Time Taken Comments Blood Pressure 113/76 07/07/2017 2:13 PM CDT Pulse 86 07/07/2017 2:13 PM CDT Temperature 36.9 ??C (98.5 ??F) 07/07/2017 2:13 PM CD T Respiratory Rate 16 07/07/2017 2:13 PM CDT Oxygen Saturation 98% 07/07/2017 2:13 PM CDT Inhaled Oxygen Concentration - - Weight 85.3 kg (188 lb) 07/07/2017 2:13 PM CDT Height - - Body Mass Index 28.59 12/06/2016 6:01 AM CDT documented in this encounter Discharge Instructions * Attachments The following attachments cannot be sent through Care Everywhere. * Edema: Leg and Ankle (Mauritanian) documented in this encounter Medications at Time [...] as of this encounter Nursing Notes * Meg Adkins LPN - 07/07/2017 2:15 PM CDT Travis Beebe is a 32 y.o. male reporting to the clinic today with complaint of right ankle swelling X 1 day. 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 documented in this encounter ED Notes * Aisha Miller MD - 07/07/2017 1:39 PM CDT HISTORY OF PRESENT ILLNESS Travis Beebe, a 32 y.o. male presents with a Chief Complaint of Ankle swelling (right ankle swelling X 1 day [id number]/27/18 1412) Subjective Patient is here with caregiver with c/o possible right ankle swelling x 1 day. Patient is nonverbal, and his caregiver denies any injury. Caregiver states ongoing problem has been x 1 day, and appears to currently have resolved. REVIEW OF SYSTEMS Review of Systems Constitutional: Negative for chills and fever. Cardiovascular: Positive for leg swelling (right ankle swelling.). Musculoskeletal: Negative for myalgias. Skin: Negative for rash and wound. Allergic/Immunologic: Negative for immunocompromised state. Neurological: Negative for weakness and numbness. Hematological: Negative for adenopathy. PAST MEDICAL HISTORY REVIEWED MEDICAL: Patient has [...] HOME MEDICATIONS Discharge Medication List as of 07/07/2017 3:02 PM CONTINUE these medications which have NOT CHANGED Details !! Zonisamide (ZONEGRAN) 100 mg capsule Take 400 mg by mouth. codeine-guaiFENesin (ROBITUSSIN-AC) 10-100 mg/5 mL Liquid Take 10 mL by mouth Every 4-6 hours PRN . ranitidine (ZANTAC) 150 mg tablet Take 150 mg by mouth 2 times daily. bisacodyl (DULCOLAX) 5 mg Delayed Release tablet Take 10 mg by mouth 1 time daily as needed for Constipation. bisacodyl (DULCOLAX) 10 mg Suppository Insert 10 mg by rectum daily. cloNIDine HCl (CATAPRES) 0.3 mg tablet Take 0.3 mg by mouth Daily LATE. At 8 PM acetaminophen (TYLENOL) 325 mg tablet Take 2 Tabs by mouth every 4 hours as needed for Pain., Disp-60 Tab, R-0 CLOBAZAM ORAL Take 40 mg by mouth daily at bedtime . ergocalciferol (VITAMIN D2) 50,000 unit capsule Take 50,000 Units by mouth every 7 days Saturday. multivitamin (DAILY-KAYLN) tablet Take 1 Tab by mouth daily. [...] by mouth 1 time daily as needed. GUAIFENESIN (MUCINEX ORAL) Take 400 mg by mouth Every 4-6 hours PRN . !! - Potential duplicate medications found. Please discuss with provider. Objective PHYSICAL EXAM INITIAL VS BP: 113/76 (07/07/17 1413), Heart Rate: (not recorded), Pulse: 86 (07/07/17 1413), Resp: 16 (07/07/17 1413), Temp: 98.5 ??F (36.9 ??C) (07/07/17 1413), Temp src: Oral (07/07/17 1413), SpO2: 98 % (07/07/17 141), Pain Score: (unable to obtain) (07/07/17 141), Height: (not recorded), Weight: 85.3 kg(188 lb) (07/07/17 141), BMI (Calculated): (not recorded) No LMP for male patient. Physical Exam Constitutional: He is oriented to person, place, and time. He appears well- developed and well-nourished. No distress. HENT: Right Ear: External ear normal. Left Ear: External ear normal. Eyes: Pupils are equal, round, and reactive to light. Neck: Normal range of motion. Neck supple. Cardiovascular: Normal rate, regular rhythm, normal heart sounds and intact distal pulses. Pulmonary/Chest: Effort normal and breath sounds normal. Abdominal: Soft. Bowel sounds are normal. Musculoskeletal: He exhibits no tenderness or deformity. Edema: Normal color of skin of both lower legs. No skin changes noted, no pitting edema. Neurological: He is alert and oriented to person, place, and time. Coordination normal. Skin: No rash noted. No erythema. Nursing note and vitals reviewed. DIAGNOSTICS LAB: RADIOLOGY: No orders to display No orders to display EKG: PROCEDURES Procedures MEDICAL DECISION MAKING AND PLAN OF CARE REEVALUATION: I discussed differential Dx, Management and PCP follow up in 3-5 days if no resolution or ER followup with any worsening of condition. Caregiver voiced understanding. CASE DISCUSSED: Discharge Medication List as of 07/07/2017 3:02 PM CONTINUE these medications which have NOT CHANGED Details !! Zonisamide (ZONEGRAN) 100 mg capsule Take 400 mg by mouth. codeine-guaiFENesin (ROBITUSSIN-AC) 10-100 mg/5 mL Liquid Take 10 mL by mouth Every 4-6 hours PRN . ranitidine (ZANTAC) 150 mg tablet Take 150 mg by mouth 2 times daily. bisacodyl (DULCOLAX) 5 mg Delayed Release tablet Take 10 mg by mouth 1 time daily as needed for Constipation. bisacodyl (DULCOLAX) 10 mg Suppository Insert 10 mg by rectum daily. cloNIDine HCl (CATAPRES) 0.3 mg tablet Take [...] by mouth 1 time daily as needed. GUAIFENESIN (MUCINEX ORAL) Take 400 mg by mouth Every 4-6 hours PRN . !! - Potential duplicate medications found. Please discuss with provider. LAST VS BP: 113/76 (07/07/17 1413), Heart Rate: (not recorded), Pulse: 86 (07/07/17 1413), Resp: 16 (07/07/17 141), Temp: 98.5 ??F (36.9 ??C) (07/07/17 141), Temp src: Oral (07/07/171412), SpO2: 98 % (07/07/173), Pain Score: (unable to obtain) (07/07/17 1413) CLINICAL IMPRESSION Final diagnoses: [I87.8] Venous stasis (Primary) CODING Coding DISPOSITION, EDUCATION AND MEDICATION RECONCILIATION: Medications reconciled. See after visit summary for patient education on discharged patients. An After Visit Summary was printed and given to the patient. documented in this encounter Plan of Treatment Not on file documented as of this encounter Visit Diagnoses Diagnosis Venous stasis- Primary Unspecified venous (peripheral) insufficiency documented in this encounter Care Teams Solderer Torch Relationship Specialty Start Date End Date Gulshan Mena DO [address] [place] [phone] PCP - General 01/26/15 documented as of this encounter
--- OUTSIDE RECORDS SUMMARY | 2024-02-12 05:14 | XMS_ITS | Encounter Summary ---
Author Organization [employer] Address [address] [place] [address] Care Team Providers Care Metal Tube Cutter Name Role Phone Gulshan Mena DO Primary Care Provider Encounter Details Date Type Department Care Team (Late st Contact Info) Description 04/04/2023 External Device Data ST[facility] ABSTRACTION Provider, Abstract [...] on filedocumented in this encounter Care Teams Metal Tube Cutter Relationship Specialty Start Date End Date Gulshan Mena DO [address] [place] [phone] PCP - General 01/26/15 documented as of this encounter
--- OUTSIDE RECORDS SUMMARY | 2024-02-12 05:14 | XMS_ITS | Encounter Summary ---
Author Organization [facility] Address [address] [place] [address] Care Team Providers Care Sort Supervisor Name Role Phone Gulshan Mena DO Primary Care Provider [phone] Reason for Visit * Reason Comments Wound Check Pt from a [facility] ; noted wound to right forearm a few days ago. Started on keflex. Area red, warm and swollen, unsure of fevers. Pt nonverbal at baseline * Auth/Cert (Routine) Specialty Diagnoses / Procedures Referred By Padmini vogt Referred To Contact Emergency Medicine [facility] Emergency Dept [address] [place] [address] Referral ID Status Reason Start Date Expiration Date Visits Re quested Visits Authorized [id number] 1 1 Encounter Details Date Type Department Care Team (Latest Contact Info) Description 02/09/2022 2:55 PM FILM RECORDIST - 02/13/2022 5:14 PM FILM RECORDIST Hospital Encounter [facility] Medicine [address] [place] [address] Tony Kc MD [address] [facility] [place] [address] Jim Hirsch MD [address] [address] Jimi Silva MD [address] [place] [address] Thad Hung MD [address] [place] [address] Abscess of right forearm Discharge Disposition: Home or Self Care Social [...] suspected to have Coronavirus/COVID-19? No / Unsure 02/09/2022 12:09 PM FILM RECORDIST documented as of this encounter Last Filed Vital Signs Vital Sign Reading Time Taken Comments Blood Pressure 102/74 02/13/2022 11:45 AM FILM RECORDIST Pulse 83 02/13/2022 11:45 AM FILM RECORDIST Temperature 36.4 ??C (97.5 ??F) 02/13/2022 1 1:45 AM FILM RECORDIST Respiratory Rate 18 02/13/2022 11:4 5 AM FILM RECORDIST Oxygen Saturation 96% 02/13/2022 11: 45 AM FILM RECORDIST Inhaled Oxygen Concentration - - Weight 86.5 kg (190 lb 11.2 oz) 022 12:29 AM FILM RECORDIST Height 170.2 cm (5' 7 ) 02/10/2022 12:2 9 AM FILM RECORDIST Body Mass Index 29.87 02/10/2022 12:29 AM FILM RECORDIST documented in this encounter Discharge Summaries * Thad Hung MD - 02/13/2022 9:44 AM CST [facility] Adult Hospitalist Discharge Summary Travis Ryder 36 y.o. male 1985 CSN: [id number] Date of Admission: 02/09/2022 Date of Discharge: 02/13/2022 Discharging Physician: Thad Hung MD LOS: 4 days PCP: Gulshan Mena DO Activity: activity as tolerated. Dispo: home Diet: DIET GENERAL Effective Now Code Status at Discharge: Full Code Wound Care: Keep wound clean and dry Admitting Dx: Abscess of right forearm Discharge Diagnoses: Active Hospital Problems Diagnosis Cellulitis and abscess of upper extremity Abscess of right forearm Resolved Hospital Problems No resolved problems to display. Discharge medications and new prescriptions: Medication List START taking these medications doxycycline hyclate 100 mg tablet Commonly known as: VIBRAMYCIN Take 1 Tablet (100 mg) by mouth 2 times daily for 7 days. Signed by: Dr. Thad Hung MD Quantity: 14 Tablet Refills: 0 CONTINUE taking these medications acetaminophen 325 mg tablet Commonly known as: TYLENOL Take 2 Tabs by mouth every 4 hours as needed for Pain. Signed by: Dr. Hieu Macias MD Quantity: 60 Tab Refills: 0 bisacodyL 5 mg Delayed Release tablet Commonly [...] Daily LATE. At 8 PM Refills: 0 Colace 100 mg capsule Take 100 mg by mouth 2 times daily. Refills: 0 Generic drug: docusate sodium ENSURE ORAL Take by mouth 1 time daily as needed. Refills: 0 lacosamide 100 mg tablet Commonly known as: VIMPAT Take 200 mg by mouth 2 times daily . Refills: 0 LaMICtal 150 mg tablet Take 300 mg by mouth 3 times daily. Refills: 0 Generic drug: lamoTRIgine magnesium hydroxide 400 mg/5 mL suspension Commonly [...] 160 mg by mouth daily. Refills: 0 raNITIdine 150 mg tablet Commonly known as: ZANTAC Take 150 mg by mouth 2 times daily. Refills: 0 Valtoco 10 mg/spray (0.1 mL) [place], Non-Aerosol Administer 10 mg in each nostril 1 time daily as needed for Seizures. Refills: 0 Generic drug: diazePAM Vitamin D2 50,000 unit capsule Take 50,000 Units by mouth every 7 days Saturday. Refills: 0 Generic drug: ergocalciferol Zonisamide 100 mg capsule Commonly known as: ZONEGRAN Take 400 mg by mouth 2 times daily. Refills: 0 Indications of Use: AT HS STOP taking these medications cephALEXin 500 mg capsule Commonly known as: KEFLEX loratadine 10 mg tablet Commonly known as: CLARITIN Where to Get Your Medications These medications were sent to [facility] [place], [place] - [address] [facility] [address] doxycycline hyclate 100 mg tablet Consultants: IP CONSULT TO IV TEAM Significant Diagnostic Studies This Admission: Labs from this Hospitalization Needing Follow Up: Lamotrigine and Lacosamide levels Discharge Lab Data: Lab Results Component Value Date WBC 5.0 02/09/2022 HGB 14.6 02/09/2022 HCT 43.9 02/09/2022 PLT 220 02/09/2022 NA 137 02/09/2022 CL 106 02/09/2022 K 4.0 02/09/2022 CO2 19 (L) 02/09/2022 BUN 17 02/09/2022 CREAT 0.92 02/09/2022 GLUCOSE 82 02/09/2022 AST 18 02/09/2022 ALT 24 02/09/2022 CRP 62.7 (H) 02/13/2021 Discharge Exam: BP (!) 94/57 Pulse 70 Temp 98 ??F (36.7 ??C) (Axillary) Resp 16 Ht 5' 7 (1.702 m) Wt 86.5 kg (190 lb 11.2 oz) SpO2 92% BMI 29.87 kg/m?? Physical Exam: General appearance alert, cooperative, no distress, appears stated age Lungs clear to auscultation bilaterally Heart regular rate and rhythm, S1, S2 normal, no murmur, click, rub or gallop Abdomen soft, non-tender. Bowel sounds normal. No masses, No organomegaly Extremities extremities normal, right upper ext erythema Skin Skin color, texture, turgor normal. No rashes or lesions Hospital Course: 36-year-old male with a PMH of HTN, autism, Emmett GasStout syndrome, epilepsy, admitted for cellulitis of the right forearm Right forearm cellulitis s/p cefazolin, underwent I&D in ED, final wound culture no organisms, as needed pain meds, switched to doxy on discharge Autism continue with buspirone propanolol and clonidine Epilepsy continue with AEDs, had breakthrough seizure on 02/10 resolved with Ativan 2 mg IV, pending lacosamide and Vimpat levels Nutritional status and in-house recommendations: Current Diet and/or Nutritional Supplementation ordered: DIET GENERAL Effective Now Discharge Condition: improved to baseline. Follow-up: Gulshan Mena DO in 5 days. More than 30 minutes were spent in this discharge activity. Signed: Thad Hung MD 02/13/2022, 9:44 AM RECORDIST documented in this encounter Medications at Time of Discharge Medication Sig Dispensed Refills Start Date End Date diazePAM (Valtoco) 10 mg/spray (0.1 mL) [place], Non-Aerosol Administer 10 mg in each nostril [...] by mouth 1 time daily as needed. doxycycline hyclate (VIBRAMYCIN) 100 mg tablet Take 1 Tablet (100 mg) by mouth 2 times daily for 7 days. 14 Tablet 02/13/2022 02/20/2022 ranitidine (ZANTAC) 150 mg tablet Take 150 mg by mouth 2 times daily. 11/14/2023 cloNIDine HCl (CATAPRES) 0.3 mg tablet Take 0.3 mg by mouth Daily LATE. At 8 PM 11/26/2023 propranoloL (INDERAL LA) 160 mg Long Acting 24 hour capsule Take 120 mg by mouth daily. 01/08/2024 documented as of this encounter Progress Notes * Thad Hung MD - 02/12/2022 2:18 PM CST [facility] Adult Hospitalist Progress Note Admit Date: 02/09/2022 Date of Note: 02/12/2022, 2:18 PM LOS: 3 days Previous history of present illness and review of systems have been reviewed today as documented inthe H&P on 02/09/2022; medications, labs, studies, notes, orders and consults have been reviewed. I have reviewed the notes from admission. Subjective: Patient seen and examined bedside, watching TV Objective: BP 109/85 (BP Location: Right arm, Patient Position (BP): Sitting) Pulse 83 Temp 98 ??F (36.7 ??C) (Axillary) Resp 18 Ht 5' 7 (1.702 m) Wt 86.5 kg (190 lb 11.2 oz) SpO2 95% BMI 29.87 kg/m?? Temp (24hrs), Av.2 ??F (36.8 ??C), Min:97.6 ??F (36.4 ??C), Max:98.8 ??F (37.1 ??C) Large amount stool (02/11/22 0542) Exam: General: Alert NAD. Heart: Regular rate and rhythm, S1, S2 normal, no murmur, click, rub or gallop. Lungs: Clear to auscultation bilaterally Abdomen: Soft, non-tender. Bowel sounds times four. No masses, No organomegaly. Extremities: No clubbing, right lower forearm erythematous and swelling i improving Skin: Skin color, texture, turgor normal. No rashes or lesions. Warm and dry. Head: Normocephalic, atraumatic Neck: Supple, symmetrical, trachea midline, no adenopathy. No significant change since yesterday except as above Data Base: I have reviewed all new labs and studies resulted and pertinent ones are noted below Assessment/Plan of Actively Managed Problems 36-year-old male with a PMH of HTN, autism, Emmett GasStout syndrome, epilepsy, admitted for cellulitis of the right forearm Right forearm cellulitis continue cefazolin, pending final wound culture, as needed pain meds, willswitch to doxy on discharge Autism continue with buspirone propanolol and clonidine Epilepsy continue with AEDs, had breakthrough seizure on 02/10 resolved with Ativan 2 mg IV, pending lacosamide and Vimpat levels Nutrition: Current Diet and/or Nutritional Supplementation ordered: DIET GENERAL Effective Now DVT Prophylaxis - sequential compression devices Chavez catheter:absent Lines: Peripheral IV Activity Order: Present Activity: in bed (02/11/22 8664) Current Code Status -Full Code Plan discussed with patient, questions answered. Discussed with social Estimated Discharge Day: 02/13/2022 Current Planned Disposition -pending final wound culture, possible discharge tomorrow Thad Hung MD RECORDIST * Thad Hung MD - 02/11/2022 11:23 AM CST [facility] Adult Hospitalist Progress Note Admit Date: 02/09/2022 Date of Note: 02/11/2022, 11:23 AM LOS: 2 days Previous history of present illness and review of systems have been reviewed today as documented inthe H&P on 02/09/2022; medications, labs, studies, notes, orders and consults have been reviewed. I have reviewed the notes from admission. Subjective: Patient seen and examined bedside, no events overnight Objective: BP (!) 94/44 (BP Location: Right arm, Patient Position (BP): Lying left side) Pulse 74 Temp 97.9 ??F (36.6 ??C) (Axillary) Resp 18 Ht 5' 7 (1.702 m) Wt 86.5 kg (190 lb 11.2 oz) SpO2 97% BMI 29.87 kg/m?? Temp (24hrs), Av ??F (36.7 ??C), Min:97.7 ??F (36.5 ??C), Max:98.6 ??F (37 ??C) Large amount stool (02/11/22 0547) Exam: General: Sleeping, no distress. Heart: Regular rate and rhythm, S1, S2 normal, no murmur, click, rub or gallop. Lungs: Clear to auscultation bilaterally Abdomen: Soft, non-tender. Bowel sounds times four. No masses, No organomegaly. Extremities: No clubbing, right lower forearm erythematous and swelling improving Skin: Skin color, texture, turgor normal. No rashes or lesions. Warm and dry. Head: Normocephalic, atraumatic Neck: Supple, symmetrical, trachea midline, no adenopathy. No significant change since yesterday except as above Data Base: I have reviewed all new labs and studies resulted and pertinent ones are noted below Assessment/Plan of Actively Managed Problems 36-year-old male with a PMH of HTN, autism, [place] GasStout syndrome, epilepsy, admitted for cellulitis of the right forearm Right forearm cellulitis switching antibiotics to cefazolin, pending final wound culture, as neededpain meds Autism continue with buspirone propanolol and clonidine Epilepsy continue with AEDs, had breakthrough seizure on 02/10 resolved with Ativan 2 mg IV, pending lacosamide and Vimpat levels Nutrition: Current Diet and/or Nutritional Supplementation ordered: DIET GENERAL Effective Now DVT Prophylaxis - sequential compression devices Chavez catheter:absent Lines: Peripheral IV Activity Order: Present Activity: in bed (02/11/22 1009) Current Code Status -Full Code Plan discussed with patient, questions answered. Estimated Discharge Day: 02/11/2022 Current Planned Disposition -pending final wound culture, possible discharge tomorrow Thad Hung MD RECORDIST * Rigo Henley RN - 02/10/2022 4:53 PM CST -pt showed no signs of pain today -Pt had not urinated this shift at 1400. Bladder scan 652 mls. Pt had very large incontinent episode shortly after -Tolerating diet with help feeding -No BM Max softeners given -VSS RECORDIST * Rigo Henley RN - 02/10/2022 4:49 PM CST UNDRESS and ASSESS for ALL ADMISSIONS and TRANSFERS On Admission On Transfer When off unit for greater than 2 hours Remove all existing dressings and devices and assess ENTIRE SKIN SURFACE (unless instructed by provider). on admission to Location(unit/floor)MS 6 Star Score: Star Score: 15 (02/10/22 0930) 1 Undress and Assess performed by bedside coworker Rigo WADE and bedside coworker Arleen Georges 2 Does the patient have any skin breakdown? No Add an LDA for any wound for non-blanching pink/red or purple areas. Assess all high risk areas: heels, ankles, knees, hips, sacrum, coccyx, ischium, gluteal, occiput, spine and all skin folds Consult wound care services for all new pressure-related injuries If yes, location(s) and description of breakdown: n/a Photograph wound, if applicable. 3 Is a specialty support surface in place? No If yes, which one?: n/a (examples: Low air loss air mattress, Roho, etc...) Patients with impaired mobility, bariatric, malnourished, existing pressure injury, are high considerations for specialty support surface. 4 Is the patient a paraplegic/quadriplegic? No If yes AND if stable spine immediately place on specialty surface and consult wound care services. If unstable spine or new spinal injury, defer to provider before specialty surface use. 5 Is a medical delivery driver present? no If yes, which one?: n/a Remove device/brace/splint to check skin underneath, obtain provider order if necessary. 6 Does the patient have a wound VAC (negative pressure wound therapy)? No If yes, please consult wound care services and switch VAC device to hospital VAC, if compatible. 7 Does the patient have an ostomy? No If yes, please consult wound care/ostomy services. (Add comment to consult if ostomy is problematic for patient.) 9 Was the Skin Prevention/ Pressure Injury Pathway initiated and appropriate interventions selected? No Use for prevention of skin issues due to friction, shear, pressure, mobility or moisture issues. 10 Was the Skin Care Treatment: Pressure Injury/Lower Extremity Ulcer Pathway initiated, and appropriate interventions selected? Yes Use for conditions such as: existing pressure injuries, yeast, deep tissue injury, incontinence associated dermatitis, lower extremity ulcers, and skin tears. 11 Wound care consult/ostomy care consult was not initiated. Belongings: ANA BALDERAS Skin Care Injury Prevention and Treatment Protocol [facility] Approved by: [facility] - Medical Executive Committee Approval Date: 02/26/2019 ORDERS ARE ENTERED ???PER PROTOCOL?? Nursing Orders: When a patient age 18 years or older has: a documented Star score of 18 or less or a Star sub score of 2 or 1, or a documented condition on the problem list of: diabetes, malnutrition or cachectic, paralysis, spinal cord disorder/injuries or muscle/neurological disease, THEN, the RN will order the Skin Care/Pressure Injury Prevention Pathway and initiate all appropriate interventions as per the Star Risk Assessment Algorithm. When a patient age 18 years or older has a wound requiring treatment, the RN and Wound Care Nurses may order the Skin Care/Pressure Ulcer/Lower Extremity Ulcer Treatment Pathway and use appropriate treatments found in the Nursing Algorithm. The Wound Care Nurse may also order treatments found in the Wound Care Algorithm. RECORDIST * Thad Hung MD - 02/10/2022 1:23 PM CST [facility] Adult Hospitalist Progress Note Admit Date: 02/09/2022 Date of Note: 02/10/2022, 1:23 PM LOS: 1 day Previous history of present illness and review of systems have been reviewed today as documented inthe H&P on 02/09/2022; medications, labs, studies, notes, orders and consults have been reviewed. I have reviewed the notes from admission. Subjective: Patient seen and examined bedside sleeping Objective: BP 111/57 (BP Location: Left arm, Patient Position (BP): Supine) Pulse 70 Temp 97.7 ??F (36.5 ??C) (Axillary) Resp 18 Ht 5' 7 (1.702 m) Wt 86.5 kg (190 lb 11.2 oz) SpO2 97% BMI 29.87 kg/m?? Temp (24hrs), Av ??F (36.7 ??C), Min:97.7 ??F (36.5 ??C), Max:98.1 ??F (36.7 ??C) Exam: General: Sleeping, no distress. Heart: Regular rate and rhythm, S1, S2 normal, no murmur, click, rub or gallop. Lungs: Clear to auscultation bilaterally Abdomen: Soft, non-tender. Bowel sounds times four. No masses, No organomegaly. Extremities: No clubbing, right lower forearm erythematous and swelling Skin: Skin color, texture, turgor normal. No rashes or lesions. Warm and dry. Head: Normocephalic, atraumatic Neck: Supple, symmetrical, trachea midline, no adenopathy. Data Base: I have reviewed all new labs and studies resulted and pertinent ones are noted below Assessment/Plan of Actively Managed Problems 36-year-old male with a PMH of HTN, autism, Emmett GasStout syndrome, epilepsy, admitted for cellulitis of the right forearm Right forearm cellulitis switching antibiotics to cefazolin, pending final wound culture, as neededpain meds Autism continue with buspirone propanolol and clonidine Epilepsy continue with AEDs Nutrition: Current Diet and/or Nutritional Supplementation ordered: DIET GENERAL Effective Now DVT Prophylaxis - sequential compression devices Chavez catheter:absent Lines: Peripheral IV Activity Order: Present Activity: in bed (02/10/22 1045) Current Code Status -Full Code Plan discussed with patient, questions answered. Estimated Discharge Day: 02/11/2022 Current Planned Disposition -pending final wound culture Thad Hung MD RECORDIST * Antonia Samayoa APRN - 02/10/2022 1:39 AM CST [facility] CROSS COVER NOTE 02/10/22 1:39 AM Contacted for: Pt caregiver requested onfi brought into room for administration be returned becauseshe was unsure of dosage, believing it to be 20 mg instead of 40. Bedside nurse complied. Med was already scanned, prior to being returned. Caregiver now says that 40 mg as previously ordered was thecorrect dose. Can you put in another order for 40 mg Onfi as pt has not yet received this med d/t mi scommunication between nurse and caregiver. Vitals: 02/10/22 0029 BP: 128/82 Pulse: 77 Resp: 18 Temp: 98.1 ??F (36.7 ??C) SpO2: 96% Intervention/Follow up/Discussion: Reviewed chart, patient here for abscess with cellulitis of the right forearm. Reordered Onfi Addendum @0221- Pt having seizure, starting at 0210. Per caregiver, he receives 10 mg diazepam spray, but none is ordered. Can we get that ordered? Spoke with nurse Gaffney, per mother at bedside patient usually has a couple seizures a week. Ativan 2mg IV x1 Lacosamide and vimpat Antonia Samayoa APRN RECORDIST * Ja Nichols LSW - 02/10/2022 1:19 AM CST Care Management Initial Assessment Initial Discharge Planning Assessment completed. Discussed Care Management's role and Discharge planning. Discharge Plan: Home to [facility]. Comments: FERNANDO met with pt and pt's caregiver, Ruth, at bedside. Pt is non- verbal, so caregiver Ruth did all the talking. Ruth reports that pt lives at an [facility], [facility]. Pt is really sweet but will get combative when being changed by unfamiliar people. Pt is not bed bound but does like to lounge in his bed and his rocking chair. Pt attends a day center with his friends called the [facility]. Patient Discharge Planning Goal: Return home to the facility, [facility]. Patient will potentially discharge to a SNF/NH? No Care Management visited with: patient and otherCaregiver May via in person. Prior to admission, patient resides at: [facility] . Prior to admission, living arrangements: group setting. Prior to admission, patient's functional level:requires assistance; uses other Gait Belt for mobility; needs assistance with iADLs: bathing, dressing, toileting, meal preparation, transportation, shopping, running errands, medication management, housekeeping, telephone use, and managing finances Prior to admission, the patient has the following DME? Yes wheelchair, hospital bed, and other Helmet and Gait Belt Services in the home: none Receives hemodialysis? No Emergency contact(s): Extended Emergency Contact Information Primary Emergency Contact: SANDOR RYDER Address: [address] [place] [address] [place], [place] [address] [place] [address] Relation: Mother Secondary Emergency Contact: BRITNIQUIN Mobile Relation: Other Insurance coverage verified: Payor: MEDICAID / Plan: [place] / Product Type: Medicaid / Prescription coverage: yes Preferred Pharmacy verified: [facility] - [place], [place] - [address] [place] [address] [address], [address] Employment Status: disabled Has VA Benefits: no PCP verified as: Gulshan Mena, DO Patient has not had a stay at an acute care hospital in the last 30 days. Recent Falls?: No. Plan for transportation at discharge: Facility staff will provide transport according to May. Care Management contact information provided. Care Management will continue to follow and assist asneeded. Ja Quan LMSW ADVERTISEMENT DISTRIBUTOR Recreation Assistant II [facility] RECORDIST documented in this encounter H&P Notes * Jim Hirsch MD - 02/09/2022 7:08 PM CST [facility] Adult Hospitalist Admission H & P Patient Name: Travis Ryder Primary Care Doctor: Gulshan Mena DO Date of Admission: 02/09/2022 Date of Service: 02/09/2022 Chief Complaint: Painful swelling involving the right forearm. HPI: The patient is a 36-year-old male with autism, Emmett-Gastaut syndrome, seizure disorder, and MARCOS. He presented to the ED today on account of the above issue. The patient is non-verbal. I obtained the history from a caregiver at the bedside. He was noted to have a raised tender spot on the posterior right mid forearm 4 days ago. Since that time, the area has increased in size and become very painful. He was started on Keflex a couple days ago by his PCP.The area started draining purulent fluid yesterday. Subsequently he was brought to the ED today forevaluation. On presentation he was noted to have a raised, warm and tender area over the mid right forearm posteriorly; there was an ulcerated center that was draining purulent fluid. I&D was done under local anesthesia, and a wound culture was obtained. He was then started on empiric IV vancomycin. He will be admitted to the medical floor for further management. Past Medical History: Diagnosis Date ADHD (attention [...] HX WISDOM TEETH EXTRACTION 2008 front teeth AL DENTAL SURGERY PROCEDURE N/A 10/20/2014 DENTAL REHABILITATION performed by Dereck Dunbar DDS at [facility] OR [facility] DENTAL SURGERY PROCEDURE N/A 12/06/2016 DENTAL REHABILITATION performed by Dereck Dunbar DDS at [facility] OR [facility] AL IMP STIM,CRANIAL,SUBQ,>1 ARRAY Left 10/27/2013 VAGUS NERVE STIMULATOR PLACEMENT performed by Hieu Macias MD at [facility] OR Current Medications: (Not in a hospital admission) Medication Allergies: Allergies Allergen Reactions Amoxicillin Hives Carbamazepine Other (See Comments) tremors Penicillins Hives Phenytoin Sodium Rash and Nausea and Vomiting Family History Problem Relation Name Age of Onset Other Father PSYCHIATRIC ISSUES Other Mother SANDOR LERNER Healthy Sister CRISTOBAL Healthy Brother MERRILL Hypertension Maternal Grandmother High Cholesterol Maternal Grandfather Hypertension Maternal Grandfather Diabetes Maternal Grandfather Cancer Maternal Grandfather PERHAPS KIDNEY OR LIVER Hypertension Paternal Grandmother Diabetes Paternal Grandmother Healthy Sister YOBANY Healthy Brother EDWIGE Social History: Social History Tobacco Use Smoking status: Never Smokeless tobacco: Never Substance Use Topics Alcohol use: No He resides at a [facility] in [facility]. Review of Systems: Constitutional: No fever, chills, headache. His appetite is fair; no recent weight loss. Eyes: No eye pain, visual loss, blurry vision. Ears: No hearing loss or tinnitus. Mouth: No oral ulcers, sore throat. Endocrine: No polyuria, polydipsia. Not diabetic. Pulm: No shortness of breath, cough, or hemoptysis noted. CV: No orthopnea or lower extremity edema. GI: No abdominal pain, nausea, vomiting, diarrhea, or constipation. : No hematuria, frequency. Musc: No swollen joints. Skin: No new skin rash. Neuro: No focal motor or sensory changes. He has seizure disorder, and has an implanted vagus nervestimulator. Psychiatric: No hallucinations. He has MARCOS, autism, and Vienna-Gastaut syndrome. Physical Exam: Patient Vitals for the past 8 hrs: BP Temp Temp src Pulse Resp SpO2 Height Weight 02/09/22 1715 -- -- -- (!) 59 -- 99 % -- -- 02/09/22 1710 115/80 -- -- (!) 59 -- 100 % -- -- 02/09/22 1204 128/86 97.3 ??F (36.3 ??C) Axillary 76 20 99 % 5' 7 (1.702 m) 83.5 kg (184 lb) General: This is a pleasant male patient; he is non-verbal but interactive. He is lying in bed in no apparent distress. HEENT: Normocephalic, atraumatic. Oropharynx is moist without obvious lesions. Neck: Supple; no significant adenopathy. Lungs: Clear to auscultation bilaterally. CV: Heart sounds S1, S2 are regular; no significant murmur. Abd: Full, soft, non-tender; no organomegaly, no palpable masses. Ext: No edema. There is moderate swelling over the posterior right forearm, with associated erythema and tenderness. The central area is ulcerated and draining a minimal amount of purulent material. Skin: No obvious rash. Neuro: Alert; non-verbal but interactive. No gross focal neurologic deficits. Data Base: Lab: Results for orders placed or performed during the hospital encounter of 02/09/22 (from the past 24 hour(s)) CBC WITH DIFFERENTIAL Result Value Ref Range WBC 5.0 4.0 - 9.8 K/uL RBC 4.56 4.50 - 5.40 M/uL HEMOGLOBIN 14.6 13.6 - 16.5 g/dL HEMATOCRIT 43.9 40.0 - 48.0 % MCV 96.3 82.0 - 99.0 fL MCH 32.0 27.2 - 32.6 pg MCHC 33.3 31.5 - 35.5 g/dL RDW 13.2 11.5 - 14.5 % RDW-STDEV 46.6 37.1 - 48.7 fL PLATELETS 220 140 - 350 K/uL MPV 9.2 (L) 9.3 - 12.4 fL NEUTROPHILS 56 % LYMPHOCYTES 27 % MONOCYTES 10 % EOSINOPHILS 5 % BASOPHILS 1 % IMMATURE GRANULOCYTES 0 % NEUTROPHIL ABSOLUTE 2.79 1.90 - 7.00 K/uL LYMPHOCYTE ABSOLUTE 1.35 0.70 - 4.50 K/uL MONOCYTE ABSOLUTE 0.50 0.10 - 1.30 K/uL EOSINOPHIL ABSOLUTE 0.27 0.00 - 0.70 K/uL BASOPHILS ABSOLUTE 0.03 0.00 - 0.20 K/uL IMMATURE GRANULOCYTES ABSOLUTE 0.02 0.00 - 0.03 K/uL COMPREHENSIVE METABOLIC PANEL Result Value Ref Range SODIUM 137 136 - 145 mmol/L POTASSIUM 4.0 3.5 - 5.0 mmol/L CHLORIDE 106 98 - 107 mmol/L CO2 19 (L) 22 - 29 mmol/L CALCIUM 9.4 8.6 - 10.2 mg/dL BUN 17 6 - 20 mg/dL CREATININE 0.92 0.67 - 1.17 mg/dL GLUCOSE 82 74 - 99 mg/dL TOTAL PROTEIN 7.6 6.7 - 8.6 g/dL ALBUMIN 4.5 3.5 - 5.2 g/dL BILIRUBIN TOTAL 0.4 0.3 - 1.2 mg/dL ALKALINE PHOSPHATASE 162 (H) 40 - 129 U/L AST 18 <41 U/L ALT 24 <42 U/L GFR >60 >=60 mL/min/1.73 sq meter ANION GAP 12 8 - 16 mmol/L WOUND (AEROBIC) CULTURE WITH GRAM STAIN Specimen: Arm, right; Abscess Result Value Ref Range GRAM STAIN No organisms observed GRAM STAIN 1+ (Rare or Occasional) WBC Assessment/Plan: 1. Abscess with cellulitis involving the right forearm - He will be admitted to the medical floor. - He has been started on empiric IV vancomycin. - We will initiate the Cellulitis Pathway. - We will give analgesics as needed. - We will follow the wound culture results. 2. Autism, Emmett-Gastaut syndrome, MARCOS - We will continue buspirone, propranolol, and clonidine, along with supportive care. 3. Seizure disorder - We will continue his AEDs, namely zonisamide, clobazam, lamotrigine, and lacosamide. Dispo: I anticipate that the patient will be hospitalized for 2 days. CODE STATUS: Full Code. VTE prophylaxis: SCDs. Jim Hirsch MD [facility] Hospitalist [phone] (Office) RECORDIST documented in this encounter Consult Notes * Heike Hendrix RN - 02/11/2022 5:59 PM CSTAssociated Order(s): IP CONSULT TO IV TEAM IV CONSULT: Request for IV consult. Reviewed electronic record and completed a vascular assessment. US guided PIV started with assistance of primary nurse and documented in EPIC. Bed in low position,HOB up 35 degrees, side rails up X3. Safety check completed. RN notified. RECORDIST documented in this encounter ED Notes * Niesha Oh RN - 02/09/2022 7:48 PM CST Vancomycin infusion initiated as ordered. Tolerating well. Patient/family has been informed about benefits and any potential clinically significant side effects or other concerns regarding the administration of the drug they have just been given. Caregiver remains at bedside. Warm blanket provided. Call light in reach. RECORDIST * Niesha Oh RN - 02/09/2022 7:20 PM CST Nursing handoff received per Hallie WADE. Care assumed at this time. RECORDIST * Hallie Galvez RN - 02/09/2022 7:06 PM CST Caregiver given menu to order food. RECORDIST * Hallie Galvez RN - 02/09/2022 6:34 PM CST No change in exam. Pt awaiting admission. Caregiver remains at bedside. RECORDIST * Hallie Galvez RN - 02/09/2022 5:31 PM CST I&D complete by provider. Covered with occlusive dressing. Pt tolerated well. Culture swab obtained and sent to lab. Plan for admission for abx. RECORDIST * Hallie Galvez RN - 02/09/2022 3:45 PM CST Pt to the ED with a dime size wound to R forearm. Large amt of redness and warmth is surrounding the wound. Unknown if any fevers. [facility] from a [facility] and is autistic/non-verbal. PIV placed and blood obtained. Safety precautions followed per protocol and nursing judgment. Patient???s non- skid footwear (socksor shoes) utilized, yellow armband on patient, stretcher in low and locked position, call light andpersonal items within reach, side rails up x2. Patient and visitors informed of importance of safety precautions that are being implemented and the importance of calling for assistance. RECORDIST * Tony Kc MD - 02/09/2022 11:48 AM CSTAssociated Order(s): Incision and Drainage Images from the original note were not included. HISTORY OF PRESENT ILLNESS Travis Ryder, a 36 y.o. male presents to the ED with a Chief Complaint of Wound Check Subjective Documented Triage Chief Complaint: Wound Check 3:06 PM: Travis Ryder is a 36 y.o. male with a history of ADHD, autism, Vienna- Gastaut syndrome, and seizure disorder, who presents to the Emergency Department with complaints of wound. Patient is nonverbal and lives in a [facility]. Caregiver at bedside reports wound on right forearma few days ago. It started off as a large zit with drainage then developed swelling and redness to the area. She notes that it is progressively worsening and the redness is now 10 times the size when she had last checked it. She thinks wound is due to an animal bite. Patient was started on Keflex 4 days ago without relief. Denies fevers. Patient also has scratches on his right upper arm but caregiver reports that it is normal for him since he has frequent seizures. Physician(s): Gulshan Mena DO History provided by: A caregiver History limited by: A developmental delay Arrived by: Private vehicle Wound Check Location: Shoulder/arm Shoulder/arm location: R forearm Context: Wound Progression since initial treatment: Worsening Treatment since initial wound: Oral antibiotics Wound appearance: Red and drainage purulent Fever: No REVIEW OF SYSTEMS Review of Systems Unable to perform ROS: Patient nonverbal PAST MEDICAL HISTORY REVIEWED MEDICAL: Patient has a past medical history of ADHD (attention deficit hyperactivity disorder), Adjustment reaction with aggression, Allergic rhinitis, Autism, Constipation, COVID-19 virus detected (02/13/2021), Developmental delay disorder, Emmett-Gastaut syndrome, Other general symptoms(780.99), Psychiatric disorder, 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 He has no past medical history of Malignant hyperthermia, Pseudocholinesterase deficiency, or Unspecified adverse effect of anesthesia. SURGICAL: Patient has [...] Carbamazepine, Penicillins, and Phenytoin sodium HOME MEDICATIONS Patient's Home Medications Current Home Medications ACETAMINOPHEN (TYLENOL) 325 MG TABLET BISACODYL (DULCOLAX) 5 MG DELAYED RELEASE TABLET BUSPIRONE (BUSPAR) 10 MG ORAL TABLET CEPHALEXIN (KEFLEX) 500 MG CAPSULE CLOBAZAM ORAL CLONIDINE HCL (CATAPRES) 0.3 MG TABLET DIAZEPAM (DIASTAT RECTAL) DOCUSATE SODIUM (COLACE) 100 MG ORAL CAPSULE ERGOCALCIFEROL (VITAMIN D2) 50,000 UNIT CAPSULE GUAIFENESIN (MUCINEX ORAL) LACOSAMIDE (VIMPAT) 100 MG ORAL TABLET LACTOSE-FREE FOOD (ENSURE ORAL) LAMOTRIGINE (LAMICTAL) 150 MG TABLET LORATADINE (CLARITIN) 10 MG ORAL TABLET MAGNESIUM HYDROXIDE (MILK OF MAGNESIA) 400 MG/5 ML SUSPENSION MULTIVITAMIN (DAILY-KALYN) TABLET PROPRANOLOL SR 24 HOUR (INDERAL LA) 160 MG ORAL CS24 RANITIDINE (ZANTAC) 150 MG TABLET ZONISAMIDE (ZONEGRAN) 100 MG CAPSULE Medications Modified during this Encounter No medications on file Medications Discontinued during this Encounter No medications on file Objective PHYSICAL EXAM INITIAL VS BP: 128/86 (02/09/22 1204), Heart Rate: 76 bpm (02/09/22 1204), Resp: 20 (02/09/22 1204), Pulse: 76(02/09/22 1204), Temp: 97.3 ??F (36.3 ??C) (02/09/22 1204), Temp src: Axillary (02/09/22 1204), SpO2: 99 % (02/09/22 1204), Height: 5' 7 (170.2 cm) (02/09/22 1204), Weight: 83.5 kg (184 lb) (02/09/22 1204), BMI (Calculated): (!) 28.81 (02/09/22 1204) No LMP for male patient. Physical Exam Vitals and nursing note reviewed. Constitutional: General: He is not in acute distress. HENT: Head: Normocephalic. Eyes: General: Lids are normal. Conjunctiva/sclera: Conjunctivae normal. Cardiovascular: Rate and Rhythm: Normal rate and regular rhythm. Pulmonary: Effort: Pulmonary effort is normal. No accessory muscle usage. Breath sounds: Normal breath sounds. No decreased breath sounds or rhonchi. Abdominal: General: Bowel sounds are normal. Palpations: Abdomen is soft. Tenderness: There is no abdominal tenderness. Musculoskeletal: General: Normal range of motion. Cervical back: Neck supple. Skin: General: Skin is warm and dry. Comments: Swelling and redness to right forearm, centrally located superficial ulceration with somepurulent drainage, no significant fluctuance. Neurological: Mental Status: He is alert. Sensory: No sensory deficit. DIAGNOSTICS LAB: CBC WITH DIFFERENTIAL - Abnormal Result Value WBC 5.0 RBC 4.56 HEMOGLOBIN 14.6 HEMATOCRIT 43.9 MCV 96.3 MCH 32.0 MCHC 33.3 RDW 13.2 RDW-STDEV 46.6 PLATELETS 220 MPV 9.2 (*) NEUTROPHILS 56 LYMPHOCYTES 27 MONOCYTES 10 EOSINOPHILS 5 BASOPHILS 1 IMMATURE GRANULOCYTES 0 NEUTROPHIL ABSOLUTE 2.79 LYMPHOCYTE ABSOLUTE 1.35 MONOCYTE ABSOLUTE 0.50 EOSINOPHIL ABSOLUTE 0.27 BASOPHILS ABSOLUTE 0.03 IMMATURE GRANULOCYTES ABSOLUTE 0.02 COMPREHENSIVE METABOLIC PANEL - Abnormal SODIUM 137 POTASSIUM 4.0 CHLORIDE 106 CO2 19 (*) CALCIUM 9.4 BUN 17 CREATININE 0.92 GLUCOSE 82 TOTAL PROTEIN 7.6 ALBUMIN 4.5 BILIRUBIN TOTAL 0.4 ALKALINE PHOSPHATASE 162 (*) AST 18 ALT 24 GFR >60 ANION GAP 12 WOUND (AEROBIC) CULTURE WITH GRAM STAIN GRAM STAIN No organisms observed GRAM STAIN 1+ (Rare or Occasional) WBC RADIOLOGY: No orders to display EKG: PROCEDURES Incision and Drainage Date/Time: 02/09/2022 5:36 PM Performed by: Tony Kc MD Authorized by: Tony Kc MD Consent: Consent obtained: Verbal Consent given by: caregiver. Risks, benefits, and alternatives were discussed: yes Risks discussed: Bleeding, incomplete drainage, pain, damage to other organs and infection [place] protocol: Procedure explained and questions answered to patient or proxy's satisfaction: yes Site/side marked: yes Immediately prior to procedure, a time out was called: yes Patient identity confirmed: Hospital-assigned identification number and arm band Location: Type: Abscess Location: Upper extremity Upper extremity location: Arm Arm location: R lower arm Anesthesia: Anesthesia method: Local infiltration Local anesthetic: Lidocaine 1% WITH epi Procedure type: Complexity: Simple Procedure details: Incision type: Wound was already draining, no incision made, just probed. Techniques: probed. Drainage: Purulent Wound treatment: Drain placed Packing materials: / in gauze Post-procedure details: Procedure completion: Tolerated well, no immediate complications MEDICAL DECISION MAKING AND PLAN OF CARE --On initial evaluation, saw and examined the patient. Discussed plan for labs. Caregiver understands and agrees with the plan. 4:39 PM: Reached out to mom from staff's phone. There was no answer. Left voice message regarding her son's findings and care and requested her to call back. 4:57 PM: Teetee, pt mother, called back. She agrees with the treatment plan. 5:07 PM: Discussed with ANNA Sage [facility], who agrees with admission to the medical floor under Dr. Silva ([facility]). 5:35 PM: Updated patient on results, diagnosis, and the plan for admission. Patient agrees with theplan. The opportunity for questions was given and questions were answered to the patient's satisfaction. All questions and concerns have been addressed. ED provider and ED nurse verbally discussed patient plan of care at this time. MDM Summary Statement: Autistic male nonverbal brought in for evaluation of redness to arm. He recently had abscess that spontaneously drained. He was treated with oral antibiotics. He has severe cellulitis but is not septic. Will start on IV antibiotics. I&D performed on abscess. Will admit to hospitalist service for further evaluation and management. I have reviewed previous: notes I have reviewed current: labs Consults: hospitalist Medications Administered During the ED Stay from 02/09/2022 1148 to 02/09/20221958 Date/Time Order Dose Route Action 02/09/20221944 FILM RECORDIST vancomycin (VANCOCIN) 1,250 mg in sodium chloride 0.9% 250 mL IVPB (PREMIX) 1,250 mg IV New Bag . New Prescriptions for this Encounter LAST VS BP: 115/80 (02/09/22 1710), Heart Rate: 76 bpm (02/09/22 1204), Resp: 20 (02/09/22 1204), Pulse: (!) 59 (02/09/22 1715), Temp: 97.3 ??F (36.3 ??C) (02/09/22 1204), Temp src: Axillary (02/09/22 1204),SpO2: 99 % (02/09/221714) CLINICAL IMPRESSION Final diagnoses: [L03.119, L02.419] Cellulitis and abscess of upper extremity (Primary) DISPOSITION, EDUCATION AND MEDICATION RECONCILIATION Medications reconciled. See after visit summary for patient education on discharged patients. ED Disposition ED Disposition Admit Condition Stable User Tony Kc MD Date/Time SatFeb 09, 2022 5:07 PM Comment -- ATTESTATION STATEMENTS This note has been prepared by Tangela Corona acting as a scribe for Dr. Tony Kc on 02/09/2022 at 6:09 PM. The scribe's documentation has been prepared under my direction and personally reviewed by me, [email or web address], in its entirety on 02/09/22 at 7:59 PM. I confirm that the note above accurately reflects all work, treatment, procedures, and medical decision making performed by me. Diagnosis Diagnosis Comment Added By Time Added Cellulitis and abscess of upper extremity [L03.119, L02.419] Tony Kc MD 02/09/2022 5:08 PM RECORDIST documented in this encounter Miscellaneous Notes * Care Plan - Odalys Kowalski RN - 02/13/2022 2:46 PM CST Travis awaiting [facility] to [facility] Tolerated gen diet, no N/V IV abx infused Swallowed pills whole w/ bites of pudding Nonverbal Turns self Incontinent of urine -bm Fall, seizure precautions maintained Problem: Infection Risk/Actual Goal: Infection Risk/Actual: Infection prevention, control, or resolution by discharge Description: Outcome: Variance Problem: Cognitive/Perceptual/Neuro Goal: Achieve optimal cognitive/perceptual/neurological function by discharge or maintain baseline function Outcome: Variance RECORDIST * Care Plan - Mitzi Ruiz RN - 02/13/2022 12:43 PM CST [facility] @ [facility] verified facility will provide transportation today at 1500 the earliest.Patient's nurse aware. Mitzi Ruiz RN, MSN,[facility] International Account Representative [facility] [phone] (cell) [phone] (office) Problem: Discharge Planning Goal: Identify discharge needs upon admission and through discharge Description: 02/13/2022 1243 by Mitzi Ruiz RN Outcome: Progressing 02/13/2022 1102 by Mitzi Ruiz RN Outcome: Progressing 02/13/2022 0945 by Mitzi Ruiz RN Outcome: Progressing RECORDIST * Marilin Anderson - Mitzi Ruiz RN - 02/13/2022 11:03 AM CST AMARI contacted Lorenza @ [facility] [phone] regarding no return call from [facility] and patient has discharge order. She stated still reviewing. AMARI lvm for [facility] again. CM faxed discharge summary to [phone] earlier this AM. Mitzi Ruiz RN, MSN,[facility] International Account Representative [facility] [phone] (cell) [phone] (office) Problem: Discharge Planning Goal: Identify discharge needs upon admission and through discharge Description: 02/13/2022 1102 by Mitzi Ruiz RN Outcome: Progressing 02/13/2022 0945 by Mitzi Ruiz RN Outcome: Progressing RECORDIST * Marilin Plan - Mitzi Ruiz RN - 02/13/2022 9:46 AM CST AMARI lvm for [facility] @ [facility] #[phone] to return call and patient has discharge order. AMARI contacted patient's mother Sandor regarding discharge today. She agrees with [facility] to [facility] andthey will provide transportation. Sandor requested update from physician. Mitzi Ruiz RN, MSN,[facility] International Account Representative [facility] [phone] (cell) [phone] (office) Problem: Discharge Planning Goal: Identify discharge needs upon admission and through discharge Description: Outcome: Progressing RECORDIST * Care Plan - Brigette Lee LPN - 02/12/2022 11:10 PM CST Day 1 - Current ([place] Pathway: Adult and Obstetrics) Patient, family, or healthcare designee is participating in individual care plan process Outcome: Not Met Patient, family, or healthcare designee understands side effects of medications Outcome: Not Met Pathway Day 1 - Current (INTERDIS PW: SKIN/PRESSURE INJURY PREVENTION) Skin Integrity/Integumentary: Interventions initiated to maintain intact skin. Patient maintains intact skin with Star Score maintained or improved. Outcome: Not Met Nutrition Management: Patient/health care delegate understands importance of adequate protein and fluid intake. Outcome: Not Met Bladder & Bowel Movement: Moisture management for incontinence initiated and maintained or patient is continent of urine/stool. Outcome: Not Met Activity/Rehab: Patient/health care delegate understands repositioning/offloading techniques or patient moves independently. Outcome: Not Met RECORDIST * Care Plan - Mitzi Ruiz RN - 02/12/2022 10:49 AM CST AMARI contacted [facility] cell # [phone] for [facility]. She requested clinical faxed to [phone]. [facility] stated pharmacy is [facility] and today is a holiday. She will plan on possible discharge tomorrow and the facility can provide transportation. [facility] cannot accept IV or IV antibiotics. Mitzi Ruiz RN, MSN,[facility] International Account Representative [facility] [phone] (cell) [phone] (office) Problem: Discharge Planning Goal: Identify discharge needs upon admission and through discharge Description: Outcome: Progressing RECORDIST * Care Plan - Brigette Lee LPN - 02/11/2022 11:02 PM CST Day 1 - Current ([place] Pathway: Adult and Obstetrics) Patient, family, or healthcare designee is participating in individual care plan process Outcome: Not Met Patient, family, or healthcare designee understands side effects of medications Outcome: Not Met Pathway Day 1 - Current (INTERDIS PW: SKIN/PRESSURE INJURY PREVENTION) Skin Integrity/Integumentary: Interventions initiated to maintain intact skin. Patient maintains intact skin with Star Score maintained or improved. Outcome: Not Met Nutrition Management: Patient/health care delegate understands importance of adequate protein and fluid intake. Outcome: Not Met Bladder & Bowel Movement: Moisture management for incontinence initiated and maintained or patient is continent of urine/stool. Outcome: Not Met Activity/Rehab: Patient/health care delegate understands repositioning/offloading techniques or patient moves independently. Outcome: Not Met RECORDIST * Care Plan - Tony Ac RN - 02/11/2022 6:23 PM CST Travis has been resting peacefully watching tv all day. Good appetite with meals. IV removed via patient and IV therapy placed a new one in left upper arm. Pleaseant mood all day. RECORDIST * Care Plan - Selena Pat LPN - 02/11/2022 6:25 AM CST Non-verbal. Incont of bowel et bladder. No acute change noted. Appears to be resting comfortably without distress noted. RECORDIST * Care Plan - Dilia Conrad LPN - 02/10/2022 6:58 AM CST Patient had a seizure last night that lasted 8 min. Multiple staff at bedside. Called for seizure pads. Bed rails wrapped in blanket. Patient received IV ativan. Patient is resting at this time. No ss of distress RECORDIST * Treatment Plan - Quoc Rodriguez, PHARMACIST - 02/09/2022 9:22 PM FILM RECORDIST Pharmacy Note: Vancomycin Consult Mr. Travis Rdyer is a 36 y.o. male currently in who was admitted 02/09/2022 2:55 PM. The pharmacy team has been consulted for vancomycin management by Dr. Hirsch. BP 115/80 Pulse (!) 59 Temp 97.3 ??F (36.3 ??C) (Axillary) Resp 20 Ht 5' 7 (1.702 m) Wt 83.5 kg (184 lb) SpO2 99% BMI 28.82 kg/m?? All: Amoxicillin, Carbamazepine, Penicillins, and Phenytoin sodium Lab Results Component Value Date CREAT 0.92 02/09/2022 Lab Results Component Value Date WBC 5.0 02/09/2022 HGB 14.6 02/09/2022 HCT 43.9 02/09/2022 PLT 220 02/09/2022 Lab Results Component Value Date CRP 62.7 (H) 02/13/2021 Microbiology: pending Assessment: Patient is a 36 y.o. male requiring vancomycin for Cellulitis . Goal trough 10- 15 mcg/ mL. The patient's most recent weight is 83.5 kg. Renal function appears stable with most recent Estimated Creatinine Clearance: 115.9 mL/min (by C-G formula based on SCr of 0.92 mg/dL). Plan: 1. Initial therapy will be vancomycin 1500 mg q12h (1250 mg OTD 02/09 @ 1945). 2. Pt will be evaluated for AUC vs Trough monitoring as more information becomes available. 3. Assess for potential de-escalation. The pharmacy will continue to follow and adjust as appropriate. Thank you for allowing me to participate in the care of this patient. Quoc Rodriguez, PHARMACIST 02/09/2022 9:19 PM RECORDIST documented in this encounter Plan of Treatment Not on file documented as of this encounter Procedures Procedure Name Priority Date/Time Associated Diagnosis Comments LACOSAMIDE LEVEL Routine 02/10/2022 3:40 AM FILM RECORDIST LAMOTRIGINE LEVEL Routine 02/10/2022 3:4 0 AM FILM RECORDIST INCISION AND DRAINAGE, ABSCESS Routine 02/09/2022 5:36 PM FILM RECORDIST WOUND CULTURE WITH GRAM STAIN Stat 02/09/2022 5:11 PM FILM RECORDIST CBC WITH DIFFERENTIAL Stat 02/09/2022 3:42 PM FILM RECORDIST COMPREHENSIVE METABOLIC PANEL Stat 02/09/2022 3:42 PM FILM RECORDIST documented in this encounter Results * LACOSAMIDE LEVEL (02/10/2022 3:40 AM FILM RECORDIST) LACOSAMIDE 6.8 mcg/mL 02/16/2022 10:05 AM FILM RECORDIST [facility] Comment: Expected concentrations of Lacosamide in patients receiving recommended daily dosages: Up to 15.0 mcg/mL. Toxic range not established This test was developed and its analytical performance characteristics have been determined by [employer]. It has not been cleared or approved by the FDA. This assay has been validated pursuant to the CLIA regulations and is used for clinical purposes. Blood Venipuncture / Unknown 02/10/2022 3:40 AM FILM RECORDIST 02/10/2022 3:55 AM FILM RECORDIST Narrative [facility] - 02/16/2022 10:05 AM FILM RECORDIST Performing Organization Information: ?Site ID: [id number] ?Name: [employer] ?Address: [id number] [place] [id number] ?Director: Hieu Whipple M.D. Antonia Samayoa APRN CHEMISTRY ORDERABL ES Performing Organization Address [facility] de Phone Number [facility] [phone] * LAMOTRIGINE LEVEL (02/10/2022 3:40 AM FILM RECORDIST) LAMOTRIGINE LEVEL 7.0 4.0 - 18.0 mcg/mL 02/16/2022 9:02 AM FILM RECORDIST [facility] Comment: This test was developed and its analytical performance characteristics have been determined by [employer]. It has not been cleared or approved by the FDA. This assay has been validated pursuant to the CLIA regulations and is used for clinical purposes. Blood Venipuncture / Unknown 02/10/2022 3:40 AM FILM RECORDIST 02/10/2022 3:56 AM FILM RECORDIST Narrative [facility] - 02/16/2022 9:02 AM FILM RECORDIST Performing Organization Information: ?Site ID: [id number] ?Name: [employer] ?Address: [address] [place] [id number] ?Director: Hieu Whipple M.D. Antonia Samayoa APRN [facility] Performing Organization Address [facility] de Phone Number [facility] [phone] * Incision and Drainage (02/09/2022 5:36 PM FILM RECORDIST) Narrative Tony Kc MD - 02/09/2022 5:36 PM FILM RECORDIST Tony Kc MD ? 02/09/2022 ??8:00 PM Incision and Drainage Date/Time: 02/09/2022 5:36 PM Performed by: Tony Kc MD Authorized by: Tony Kc MD Consent: ??Consent obtained: ??Verbal ??Consent given by: caregiver. ??Risks, benefits, and alternatives were discussed: yes ?Risks discussed: ??Bleeding, incomplete drainage, pain, damage to other organs and infection [place] protocol: ??Procedure explained and questions answered to patient or proxy's satisfaction: yes ?Site/side marked: yes ?Immediately prior to procedure, a time out was called: yes ?Patient identity confirmed: ??Hospital-assigned identification number and arm band Location: ??Type: ??Abscess ??Location: ??Upper extremity ??Upper extremity location: ??Arm ??Arm location: ??R lower arm Anesthesia: ??Anesthesia method: ??Local infiltration ??Local anesthetic: ??Lidocaine 1% WITH epi Procedure type: ??Complexity: ??Simple Procedure details: ??Incision type: Wound was already draining, no incision made, just probed. ??Techniques: probed. ??Drainage: ??Purulent ??Wound treatment: ??Drain placed ??Packing materials: ??02/14 in gauze Post-procedure details: ??Procedure completion: ??Tolerated well, no immediate complications Tony Kc MD PROCEDURE/MINOR SURG ICAL ORDERABLES * WOUND (AEROBIC) CULTURE WITH GRAM STAIN (02/09/2022 5:11 PM FILM RECORDIST) Pathologist [facility] CULTURE No growth 02/12/2022 7:54 AM FILM RECORDIST [facility] GRAM STAIN No organisms observed 02/12/2022 7:54 AM FILM RECORDIST [facility] GRAM STAIN 1+ (Rare or Occasional) WBC 02/12/2022 7:54 AM FILM RECORDIST [facility] [employer] [facility] Abscess (Arm, right) Collection / Unknown 02/09/2022 5:11 PM FILM RECORDIST 02/09/2022 5:20 PM FILM RECORDIST Tony Kc MD 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 - [facility] AL [facility]ABLES [id number] 5 [facility] [place] [id number] * (ABNORMAL) COMPREHENSIVE METABOLIC PANEL (02/09/2022 3:42 PM FILM RECORDIST) SODIUM 137 136 - 145 mmol/L 02/09/2022 4:55 PM FILM RECORDIST [facility] POTASSIUM 4.0 3.5 - 5.0 mmol/L 02/09/2022 4:55 PM [facility] [employer] LABORATORY SERVICES - [facility] CHLORIDE 106 98 - 107 mmol/L 02/09/2022 4:55 PM [facility] [employer] LABORATORY SERVICES - [facility] CO2 19(L) 22 - 29 mmol/L 02/09/2022 4:55 PM [facility] [employer] LABORATORY SERVICES - [facility] CALCIUM 9.4 8.6 - 10.2 mg/dL 02/09/2022 4:55 PM [facility] [employer] LABORATORY SERVICES - [facility] BUN 17 6 - 20 mg/dL 02/09/2022 4:55 PM [email or web address] - . [facility] CREATININE 0.92 0.67 - 1.17 mg/dL 02/09/2022 4:55 PM [facility] [employer] LABORATORY SERVICES - . [place] GLUCOSE 82 74 - 99 mg/dL 02/09/2022 4:55 PM [facility] [employer] LABORATORY SERVICES - . [facility] TOTAL PROTEIN 7.6 6.7 - 8.6 g/dL 02/09/2022 4:55 PM [facility] [employer] LABORATORY SERVICES - . [facility] ALBUMIN 4.5 3.5 - 5.2 g/dL 02/09/2022 4:55 PM [facility] [employer] LABORATORY SERVICES - . [facility] BILIRUBIN TOTAL 0.4 0.3 - 1.2 mg/dL 02/09/2022 4:55 PM [facility] [employer] LABORATORY SERVICES - [facility] ALKALINE PHOSPHATASE 162(H) 40 - 129 U/L 02/09/2022 4:55 PM [facility] [employer] LABORATORY SERVICES - . [facility] AST 18 <41 U/L 02/09/2022 4:55 PM [facility] [employer] LABORATORY SERVICES - . [facility] ALT 24 <42 U/L 02/09/2022 4:55 PM [facility] [employer] LABORATORY SERVICES - . [facility] GFR >60 >=60 mL/min/1.7 3 sq meter 02/09/2022 4:55 PM [facility] [employer] LABORATORY SERVICES - . [facility] Comment:eGFR calculated with 2020 CKD-EPI equation. Vegetarian diet, extremely high or low muscle mass, and may affect results. Cystatin C with Glomerular Filtration Rate is a suitable alternative for these patients. ANION GAP 12 8 - 16 mmol/L 02/09/2022 4:55 PM [facility] [employer] LABORATORY SERVICES - . [facility] Blood Venipuncture / Unknown 02/09/2022 3:42 PM FILM RECORDIST 02/09/2022 4:01 PM FILM RECORDIST [facility] LABORATORY SERVICES - [facility] - 02/09/2022 4:55 PM FILM RECORDIST Samples containing indocyanine green cause interferences on Total and/or Direct Bilirubin and must not be measured. Tony Kc MD CHEMISTRY ORDERABLES [facility] LABORATORY SERVICES - [facility] CLIA# [id number] [facility] [place] [address] * (ABNORMAL) CBC WITH DIFFERENTIAL (02/09/2022 3:42 PM FILM RECORDIST) Pathologist [facility] WBC 5.0 4.0 - 9.8 K/uL 02/09/2022 4:09 PM [facility] RBC 4.56 4.50 - 5.40 M/uL 02/09/2022 4:09 PM [facility]AT[facility] HEMOGLOBIN 14.6 13.6 - 16.5 g/dL 02/09/2022 4:09 PM [facility] LABORATORY [facility] HEMATOCRIT 43.9 40.0 - 48.0 % 02/09/2022 4:09 PM [facility] LABORATORY [facility] MCV 96.3 82.0 - 99.0 fL 02/09/2022 4:09 PM [facility] LABORATORY [facility] MCH 32.0 27.2 - 32.6 pg 02/09/2022 4:09 PM [facility] LABORATORY [facility] MCHC 33.3 31.5 - 35.5 g/dL 02/09/2022 4:09 PM [facility] RDW 13.2 11.5 - 14.5 % 02/09/2022 4:09 PM [facility] LABOR[facility] RDW-STDEV 46.6 37.1 - 48.7 fL 02/09/2022 4:09 PM [facility] PLATELETS 220 140 - 350 K/uL 02/09/2022 4:09 PM [facility]OR[facility] MPV 9.2(L) 9.3 - 12.4 fL 02/09/2022 4:09 PM FILM RECORDIST [facility] LABORATORY SERVICES - [facility] NEUTROPHILS 56 % 02/09/2022 4:09 PM FILM RECORDIST [facility] LABORATORY SERVICES - [facility] LYMPHOCYTES 27 % 02/09/2022 4:09 PM FILM RECORDIST [facility] LABORATORY SERVICES - [facility] MONOCYTES 10 % 02/09/2022 4:09 PM FILM RECORDIST [facility] LABORATORY SERVICES - [facility] EOSINOPHILS 5 % 02/09/2022 4:09 PM FILM RECORDIST [facility] LABORATORY SERVICES - [facility] BASOPHILS 1 % 02/09/2022 4:09 PM FILM RECORDIST [facility] LABORATORY SERVICES - [facility] IMMATURE GRANULOCYTES 0 % 02/09/2022 4:09 PM FILM RECORDIST [facility] LABORATORY SERVICES - [facility] NEUTROPHIL ABSOLUTE 2.79 1.90 - 7.00 K/uL 02/09/2022 4:09 PM FILM RECORDIST [facility] LABORATORY SERVICES - [facility] LYMPHOCYTE ABSOLUTE 1.35 0.70 - 4.50 K/uL 02/09/2022 4:09 PM FILM RECORDIST [facility] LABORATORY SERVICES - [facility] [place] MONOCYTE ABSOLUTE 0.50 0.10 - 1.30 K/uL 02/09/2022 4:09 PM FILM RECORDIST [facility] LABORATORY SERVICES - [facility] EOSINOPHIL ABSOLUTE 0.27 0.00 - 0.70 K/uL 02/09/2022 4:09 PM FILM RECORDIST [facility] LABORATORY SERVICES - [facility] BASOPHILS ABSOLUTE 0.03 0.00 - 0.20 K/uL 02/09/2022 4:09 PM FILM RECORDIST [facility] LABORATORY SERVICES - . [facility] IMMATURE GRANULOCYTES ABSOLUTE 0.02 0.00 - 0.03 K/uL 02/09/2022 4:09 PM [facility] LAB[facility]ATORY SERVICES - . [facility] Blood Venipuncture / Unknown 02/09/2022 3:42 PM FILM RECORDIST 02/09/2022 4:01 PM FILM RECORDIST Tony Kc MD HEMATOLOGY ORDERABLE S [facility] LABORATORY SERVICES [facility]# [id number] [facility] [address] [place] [id number] documented in this encounter Visit Diagnoses Diagnosis Abscess of right forearm- Primary Cellulitis and abscess of upper arm and forearm Cellulitis and abscess of upper extremity Cellulitis and abscess of upper extremity documented in this encounter Administered Medications Inactive Administered Medications - up to 3 most recent administrations Medication Order MAR Action Action Date Dose Rate Site acetaminophen (TYLENOL) tablet 650 mg 650 mg, Oral, EVERY 6 HOURS PRN, Starting on Sat02/09/22 at 2114, Until Sat02/13/22 at 1914, Pain, Mild / Temperature, ., Routine busPIRone (BUSPAR) tablet 10 mg 10 mg, Oral, ONE TIME ONLY, 1 dose, On Sat02/09/22 at 2230, Routine Given 02/10/2022 1:27 AM FILM RECORDIST 10 mg busPIRone (BUSPAR) tablet 10 mg 10 mg, Oral, THREE TIMES DAILY, First dose (after last reorder) on 02/10/22 at 0900, Until Discontinued, Routine, Previous Med: busPIRone (BUSPAR) 10 mg Oral tablet - Orig Sig - Take 10 mg by mouth 3 times daily. Given 02/13/2022 12:36 PM FILM RECORDIST 10 mg Given 02/13/2022 9:25 AM FILM RECORDIST 10 mg Given 02/12/2022 6:40 PM FILM RECORDIST 10 mg ceFAZolin (ANCEF) 1,000 mg in dextrose (iso-osmotic) 50 mL IVPB (PREMIX) 1,000 mg, IV, EVERY 8 HOURS, First dose on 02/10/22 at 1300, Until Discontinued, Routine, Antibiotic Indication: Wound / Cellulitis / Abscess, Is sepsis suspected? Unlikely New Bag 02/13/2022 12:38 PM FILM RECORDIST 1,000 mg 100 mL/hr New Bag 02/13/2022 5:01 AM FILM RECORDIST 1,000 mg 100 mL/hr New Bag 02/12/2022 8:22 PM FILM RECORDIST 1,000 mg 100 mL/hr cloBAZam (ONFI) tablet 40 mg 40 mg, Oral, DAILY AT BEDTIME, First dose (after last reorder) on 02/10/22 at 2100, Until Discontinued, Routine, Previous Med: cloBAZam (ONFI) 10 mg Tablet - Orig Sig - Take 40 mg by mouth daily at bedtime. Given 02/12/2022 8:12 PM FILM RECORDIST 40 mg Given 02/11/2022 8:19 PM FILM RECORDIST 40 mg Given 02/10/2022 8:24 PM FILM RECORDIST 40 mg cloBAZam (ONFI) tablet 40 mg 40 mg, Oral, ONE TIME ONLY, 1 dose, On Sat02/10/22 at 0145, Routine Given 02/10/2022 1:47 AM FILM RECORDIST 40 mg cloNIDine HCL (CATAPRES) tablet 0.3 mg 0.3 mg, Oral, DAILY AT BEDTIME, First dose on Sat02/09/22 at 2115, Until Discontinued, Routine, Previous Med: cloNIDine HCl (CATAPRES) 0.3 mg tablet - Orig Sig - Take 0.3 mg by mouth Daily LATE. At 8 PM Given 02/12/2022 8:13 PM FILM RECORDIST 0.3 mg Given 02/11/2022 8:20 PM FILM RECORDIST 0.3 mg Given 02/10/2022 8:24 PM FILM RECORDIST 0.3 mg enoxaparin (LOVENOX) injection 40 mg 40 mg, subCUT, EVERY 24 HOURS, First dose on 02/10/22 at 1515, Until Discontinued, Routine, Indication: Prophylaxis of VTE Given 02/12/2022 3:13 PM FILM RECORDIST 40 mg Abdomen, Left Lower Quadrant Given 02/11/2022 3:15 PM FILM RECORDIST 40 mg Ab dominal Tissue Given 02/10/2022 3:42 PM FILM RECORDIST 40 mg Ab dominal Tissue lacosamide (VIMPAT) tablet 200 mg 200 mg, Oral, ONE TIME ONLY, 1 dose, On Sat02/09/22 at 2300, Routine Given 02/10/2022 1:48 AM FILM RECORDIST 200 mg lacosamide (VIMPAT) tablet 200 mg 200 mg, Oral, TWO TIMES DAILY, First dose (after last reorder) on 02/10/22 at 0900, Until Discontinued, Routine, Previous Med: lacosamide (VIMPAT) 100 mg tablet - Orig Sig - Take 200 mg by mouth 2 times daily . Given 02/13/2022 9:24 AM FILM RECORDIST 200 m g Given 02/12/2022 9:29 PM FILM RECORDIST 200 mg Given 02/12/2022 11:56 AM FILM RECORDIST 200 mg lamoTRIgine (LaMICtal) tablet 300 mg 300 mg, Oral, ONE TIME ONLY, 1 dose, On Sat02/09/22 at 2230, Routine Given 02/10/2022 1:27 AM FILM RECORDIST 300 mg lamoTRIgine (LaMICtal) tablet 300 mg 300 mg, Oral, THREE TIMES DAILY, First dose (after last reorder) on 02/10/22 at 0900, Until Discontinued, Routine, Previous Med: lamoTRIgine (LaMICtal) 150 mg tablet - Orig Sig - Take 300 mg by mouth 3 times daily. Given 02/13/2022 12:36 PM FILM RECORDIST 300 mg Given 02/13/2022 9:25 AM FILM RECORDIST 300 mg Given 02/12/2022 6:40 PM FILM RECORDIST 300 mg loratadine (CLARITIN) tablet 10 mg 10 mg, Oral, DAILY, First dose on 02/10/22 at 0900, Until Discontinued, Routine, Previous Med: loratadine (CLARITIN) 10 mg tablet - Orig Sig - Take 10 mg by mouth daily. Given 02/13/2022 9:25 AM FILM RECORDIST 10 mg Given 02/12/2022 9:49 AM FILM RECORDIST 10 mg Given 02/11/2022 11:12 AM FILM RECORDIST 10 mg LORazepam (ATIVAN) 2 mg/mL injection 2 mg 2 mg, IV, ONE TIME ONLY, 1 dose, On 02/10/22 at 0230, Routine Given 02/10/2022 2:25 AM FILM RECORDIST 2 mg LORazepam (ATIVAN) 2 mg/mL injection 2 mg 2 mg, IV, EVERY 4 HOURS PRN, 3 doses, Starting on 02/10/22 at 0228, Until Sat02/13/22 at 1914, Seizures, Can use if zofran or reglan not helping, Routine LORAZEPAM 2 MG/ML INJECTION SOLUTION (CABINET OVERRIDE) 1 dose, Starting on 02/10/22 at 0222, Until 02/10/22 at 0225, Yomi Mcmanus: cabinet override magnesium hydroxide (MILK OF MAGNESIA) oral suspension 30 mL 30 mL, Oral, DAILY PRN, Starting on Sat02/11/22 at 0459, Until Sat02/13/22 at 1914, Constipation, Routine ondansetron (ZOFRAN) 4 mg/2 mL injection 4 mg 4 mg, IV, EVERY 6 HOURS PRN, Starting on Sat02/09/22 at 2114, Until Sat02/13/22 at 1914, Nausea/Emesis, Routine polyethylene glycol (MIRALAX) packet 17 Gram 17 Gram, Oral, TWO TIMES DAILY, First dose on 02/10/22 at 1515, Until Discontinued, Routine Given 02/12/2022 8:13 PM FILM RECORDIST 17 Grams Given 02/12/2022 9:51 AM FILM RECORDIST 17 Grams Given 02/11/2022 8:19 PM FILM RECORDIST 17 Grams propranoloL (INDERAL LA) SR 24 hour capsule 160 mg 160 mg, Oral, DAILY, First dose on 02/10/22 at 0900, Until Discontinued, Routine, Previous Med: propranoloL (INDERAL LA) 160 mg Long Acting 24 hour capsule - Orig Sig - Take 160 mg by mouth daily. Given 02/12/2022 9:49 AM FILM RECORDIST 160 mg sennosides-docusate sodium (SENNA-S) 8.6-50 mg per tablet 2 Tablet 2 Tablet, Oral, TWO TIMES DAILY, First dose on Sat02/10/22 at 1515, Until Discontinued, Routine Given 02/12/2022 8:13 PM FILM RECORDIST 2 Tablets Given 02/12/2022 9:50 AM FILM RECORDIST 2 Tablets Given 02/11/2022 8:20 PM FILM RECORDIST 2 Tablets vancomycin (VANCOCIN) 1,250 mg in sodium chloride 0.9% 250 mL IVPB (PREMIX) 1,250 mg (rounded from 1,252.5 mg = 15 mg/kg ? 83.5 kg), IV, ONE TIME ONLY, 1 dose, On Sat02/09/22 at 1715, Routine, Antibiotic Indication: Wound / Cellulitis / Abscess, Is sepsis suspected? Unlikely New Bag 02/09/2022 7:45 PM FILM RECORDIST 1,250 mg 166.67 mL/h r vancomycin (VANCOCIN) 1,500 mg in sodium chloride 0.9% 500 mL IVPB (PREMIX) 1,500 mg, IV, EVERY 12 HOURS, First dose (after last reorder) on 02/10/22 at 0730, Until Discontinued, Routine, Antibiotic Indication: Wound / Cellulitis / Abscess, Is sepsis suspected? Unlikely New Bag 02/10/2022 9:44 AM FILM RECORDIST 1,500 mg 333.33 mL/h r Zonisamide (ZONEGRAN) capsule 400 mg 400 mg, Oral, ONE TIME ONLY, 1 dose, On Sat02/09/22 at 2230, Routine Given 02/10/2022 1:26 AM FILM RECORDIST 400 mg Zonisamide (ZONEGRAN) capsule 400 mg 400 mg, Oral, TWO TIMES DAILY, First dose (after last reorder) on 02/10/22 at 0900, Until Discontinued, Routine, Previous Med: Zonisamide (ZONEGRAN) 100 mg capsule - Orig Sig - Take 400 mg by mouth 2 times daily. Given 02/13/2022 9:25 AM FILM RECORDIST 400 mg Given 02/12/2022 8:13 PM FILM RECORDIST 400 mg Given 02/12/2022 9:49 AM FILM RECORDIST 400 mg documented in this encounter Active and Recently Administered Medications Times are shown in FILM RECORDIST. Scheduled Medication Order 02/11/2022 02/12/2022 02/13/2022 busPIRone (BUSPAR) tablet 10 mg 10 mg, Oral, THREE TIMES DAILY, First dose (after last reorder) on 02/10/22 at 0900, Until Discontinued, Routine, Previous Med: busPIRone (BUSPAR) 10 mg Oral tablet - Orig Sig - Take 10 mg by mouth 3 times daily. 1111 (Given - Provider: Tony Ac RN)1404 (Given - Provider: Tony Ac RN)1820 (Given - Provider: Tony Ac RN) 0950 (Given - Provider: Tony Ac RN)1312 (Given - Provider: Tony Ac RN)1840 (Given - Provider: Tony Ac RN) 0925 (Given - Provider: Odalys Kowalski RN)1236 (Given - Provider: Odalys Kowalski RN) ceFAZolin (ANCEF) 1,000 mg in dextrose (iso-osmotic) 50 mL IVPB (PREMIX) 1,000 mg, IV, EVERY 8 HOURS, First dose on 02/10/22 at 1300, Until Discontinued, Routine, Antibiotic Indication: Wound / Cellulitis / Abscess, Is sepsis suspected? Unlikely 0434 (New Bag - Provider: Selena Pat LPN)0504 (Stopped - Provider: Selena Pat LPN)1410 (New Bag - Provider: Tony Ac RN)1440 (Stopped - Provider: Tony Ac RN)202 (New Bag - Provider: Brigette Lee LPN)205 (Stopped - Provider: Brigette Lee LPN) 0557 (New Bag - Provider: Brigette Lee LPN)0627 (Stopped - Provider: Tony Ac RN)1316 (New Bag - Provider: Tony Ac RN)1346 (Stopped - Provider: Tony Ac RN)2021 (New Bag - Provider: Brigette Lee LPN)2051 (Stopped - Provider: Brigette Lee LPN) 0501 (New Bag - Provider: Brigette Lee LPN)0531 (Stopped - Provider: Brigette Lee LPN)1238 (New Bag - Provider: Odalys Kowalski RN)1308 (Stopped - Provider: Odalys Kowalski RN) cloBAZam (ONFI) tablet 40 mg 40 mg, Oral, DAILY AT BEDTIME, First dose (after last reorder) on 02/10/22 at 2100, Until Discontinued, Routine, Previous Med: cloBAZam (ONFI) 10 mg Tablet - Orig Sig - Take 40 mg by mouth daily at bedtime. 2018 (Given - Provider: Brigette Lee LPN) 2011 (Given - Provider: Brigette Lee LPN) cloNIDine HCL (CATAPRES) tablet 0.3 mg 0.3 mg, Oral, DAILY AT BEDTIME, First dose on Sat02/09/22 at 2115, Until Discontinued, Routine, Previous Med: cloNIDine HCl (CATAPRES) 0.3 mg tablet - Orig Sig - Take 0.3 mg by mouth Daily LATE. At 8 PM 2019 (Given - Provider: Brigette Lee LPN) 2012 (Given - Provider: Brigette Lee LPN) enoxaparin (LOVENOX) injection 40 mg 40 mg, subCUT, EVERY 24 HOURS, First dose on 02/10/22 at 1515, Until Discontinued, Routine, Indication: Prophylaxis of VTE 1515 (Given - Provider: Tony Ac RN) 1513 (Given - Provider: Tony Ac RN) 1515 (Not Given - Provider: Bethany Jimenez LPN - Reason: Patient condition) lacosamide (VIMPAT) tablet 200 mg 200 mg, Oral, TWO TIMES DAILY, First dose (after last reorder) on 02/10/22 at 0900, Until Discontinued, Routine, Previous Med: lacosamide (VIMPAT) 100 mg tablet - Orig Sig - Take 200 mg by mouth 2 times daily . 1119 (Given - Provider: Tony Ac RN)2203 (Given - Provider: Brigette Lee LPN) 1156 (Given - Provider: Tony Ac RN - Comment: given late. patient was refusing)2128 (Given - Provider: Brigette Lee LPN) 0924 (Given - Provider: Odayls Kowalski RN) lamoTRIgine (LaMICtal) tablet 300 mg 300 mg, Oral, THREE TIMES DAILY, First dose (after last reorder) on 02/10/22 at 0900, Until Discontinued, Routine, Previous Med: lamoTRIgine (LaMICtal) 150 mg tablet - Orig Sig - Take 300 mg by mouth 3 times daily. 1111 (Given - Provider: Tony Ac RN)1404 (Given - Provider: Tony Ac RN)1820 (Given - Provider: Tony Ac RN) 0950 (Given - Provider: Tony Ac RN)1312 (Given - Provider: Tony Ac RN)1840 (Given - Provider: Tony Ac RN) 0925 (Given - Provider: Odalys Kowalski RN)1236 (Given - Provider: Odalys Kowalski RN) loratadine (CLARITIN) tablet 10 mg 10 mg, Oral, DAILY, First dose on 02/10/22 at 0900, Until Discontinued, Routine, Previous Med: loratadine (CLARITIN) 10 mg tablet - Orig Sig - Take 10 mg by mouth daily. 1112 (Given - Provider: Tony Ac RN) 0949 (Given - Provider: Tony Ac RN) 0925 (Given - Provider: Odalys Kowalski RN) polyethylene glycol (MIRALAX) packet 17 Gram 17 Gram, Oral, TWO TIMES DAILY, First dose on 02/10/22 at 1515, Until Discontinued, Routine 0900 (Not Given - Provider: Tony Ac RN - Reason: Other - See Comment - Comment: bit bowel movement this morning)2018 (Given - Provider: Brigette Lee LPN) 0951 (Given - Provider: Tony Ac RN)2012 (Given - Provider: Brigette Lee LPN) 0804 (Not Given - Provider: Odalys Kowalski RN - Reason: Patient condition) propranoloL (INDERAL LA) SR 24 hour capsule 160 mg 160 mg, Oral, DAILY, First dose on 02/10/22 at 0900, Until Discontinued, Routine, Previous Med: propranoloL (INDERAL LA) 160 mg Long Acting 24 hour capsule - Orig Sig - Take 160 mg by mouth daily. 0900 (Not Given - Provider: Tony Ac RN - Reason: Patient condition) 0949 (Given - Provider: Tony Ac RN) 0932 (Not Given - Provider: Odalys Kowalski RN - Reason: Patient condition) sennosides-docusate sodium (SENNA-S) 8.6-50 mg per tablet 2 Tablet 2 Tablet, Oral, TWO TIMES DAILY, First dose on 02/10/22 at 1515, Until Discontinued, Routine 0900 (Not Given - Provider: Tony Ac RN - Reason: Patient condition - Comment: big bowel movement this morning)2019 (Given - Provider: Brigette Lee LPN) 0950 (Given - Provider: Tony Ac RN)2012 (Given - Provider: Brigette Lee LPN) 0804 (Not Given - Provider: Odalys Kowalski RN - Reason: Patient condition) Zonisamide (ZONEGRAN) capsule 400 mg 400 mg, Oral, TWO TIMES DAILY, First dose (after last reorder) on 02/10/22 at 0900, Until Discontinued, Routine, Previous Med: Zonisamide (ZONEGRAN) 100 mg capsule - Orig Sig - Take 400 mg by mouth 2 times daily. 1111 (Given - Provider: Tony Ac RN)2018 (Given - Provider: Brigette Lee LPN) 0949 (Given - Provider: Tony Ac RN)2012 (Given - Provider: Brigette Lee LPN) 0925 (Given - Provider: Odalys Kowalski RN) PRN Medication Order 02/11/2022 02/12/2022 02/13/2022 acetaminophen (TYLENOL) tablet 650 mg 650 mg, Oral, EVERY 6 HOURS PRN, Starting on Sat02/09/22 at 2114, Until Sat02/13/22 at 1914, Pain, Mild / Temperature, ., Routine 0927 (Not Given - Provider: Tony Ac RN - Reason: Other - See Comment - Comment: pulled on his name but was for antoher patient) LORazepam (ATIVAN) 2 mg/mL injection 2 mg 2 mg, IV, EVERY 4 HOURS PRN, 3 doses, Starting on 02/10/22 at 0228, Until Sat02/13/22 at 1914, Seizures, Can use if zofran or reglan not helping, Routine magnesium hydroxide (MILK OF MAGNESIA) oral suspension 30 mL 30 mL, Oral, DAILY PRN, Starting on Sat02/11/22 at 0459, Until Sat02/13/22 at 1914, Constipation, Routine ondansetron (ZOFRAN) 4 mg/2 mL injection 4 mg 4 mg, IV, EVERY 6 HOURS PRN, Starting on 02/09/22 at 2114, Until Sat02/13/22 at 1914, Nausea/Emesis, Routine documented in this encounter Care Teams Sort Supervisor Relationship Specialty Start Date End Date Gulshan Mena DO [address] [place] [id number] PCP - General 01/26/15 documented as of this encounter
--- OUTSIDE RECORDS SUMMARY | 2024-02-12 05:14 | XMS_ITS | Encounter Summary ---
Author Organization [facility] Address [address] [place] [address] Care Team Providers Care Treasury Consultant Name Role Phone Gulshan Mena DO Primary Care Provider [phone] Reason for Visit * Reason Comments Fever Pt to ED with nora medrano from residential fci with fever. Tmax 102F. 2 residents have covid. 1 seizure today, normal for pt. Nonverbal. Associated congestion. No OTC medications given. Glucose 119. * Auth/Cert Specialty Diagnoses / Procedures Referred By Padmini vogt Referred To Contact Emergency Medicine [facility] Emergency Dept [address] [place] [address] Referral ID Status Reason Start Date Expiration Date Visits Re quested Visits Authorized [id number] 1 1 Encounter Details Date Type Department Care Team (Latest Contact Info) Description 02/13/2021 10:21 PM GIS MAPPING TECHNICIAN - 03/02/2021 2:04 PM GIS MAPPING TECHNICIAN Hospital Encounter [facility] Medical Surgical [address] [place] [address] Bulmaro Hoff MD [address] [facility] [place] [address] Gilberto Nettles [place] [address] [place] [address] Ethan Mcdowell MD [address] [facility] [address] [place] [address] Diane Mejia MD [address] [place] [address] Jhonatan Myaen MD [address] [place] [address] [place] [id number] [facility] [address] [place] [address] Pneumonia due to COVID-19 virus Discharge Disposition: Intermediate Care Facility Social History [...] Coronavirus / COVID-19? Yes 02/13/2021 5:02 PM GIS MAPPING TECHNICIAN documented as of this encounter Last Filed Vital Signs Vital Sign Reading Time Taken Comments Blood Pressure 130/71 03/02/2021 8:29 AM GIS MAPPING TECHNICIAN Pulse 94 03/02/2021 8:29 AM GIS MAPPING TECHNICIAN Temperature 36.4 ??C (97.6 ??F) 03/02/2021 8:29 AM CS T Respiratory Rate 18 03/02/2021 8:29 AM GIS MAPPING TECHNICIAN Oxygen Saturation 97% 03/02/2021 8:29 AM GIS MAPPING TECHNICIAN Inhaled Oxygen Concentration - - Weight 74.4 kg (164 lb) 02/13/2021 5:00 PM GIS MAPPING TECHNICIAN Height 170.2 cm (5' 7 ) 02/13/2021 5:00 PM GIS MAPPING TECHNICIAN Body Mass Index 25.69 02/13/2021 5:00 PM GIS MAPPING TECHNICIAN documented in this encounter Discharge Summaries * Sandee Onofre MD - 03/02/2021 10:54 AM CST DISCHARGE SUMMARY and INPATIENT ACUTE THERAPY ORDERS AT TRANSITION OF CARE Travis Beebe 35 y.o. male 1985 CSN: [id number] Date of Admission: 02/13/2021 Document Creation Date: 03/02/2021 Date of Discharge: 03/02/2021 LOS: 17 days PCP: Gulshan Mena DO Dispo: fci 45 Minutes spent in the d/c process today. Reason for Admission/HPI: Chief Complaint Patient presents with ??? 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 Tmax 102F. 2 residents have covid. 1 seizure today, normal for pt. Nonverbal. Associated congestion. No OTC medications given. Glucose 119. Pertinent Discharge Diagnoses and Associated Hospital Course: Active Hospital Problems Diagnosis ??? Thrombocytopenia ??? Pneumonia due to COVID-19 virus ??? Hypernatremia ??? Intractable Emmett-Gastaut syndrome ??? Autism Resolved Hospital Problems No resolved problems to display. HPI from admit note: Travis Beebe is a 35 y.o. male who presents with the following symptoms concerning for COVID-19: cough. A COVID-19 PCR test is positive. The patient has had confirmed exposure to a lab-confirmed COVID-19 individual. ?? The patient has hx of seizure disorder and autism who is presenting with above symptoms. Patient isaccompanied by caregiver. Patient lives in a fci. His roommates tested positive for covid a few days ago however patient was not tested due to family preference. He was having symptoms of cough. OTC cough medications tried by symptoms unimproved and hence brought to ED for evaluation. ?? Patient has not received the covid 19 vaccine. I have reviewed his med list. PROBLEM LIST: covid pneumonia, initial hypoxemia of 88% on RA, was on oxygen, now appears to be weaned off. Completed ten days of IV decadron 02/22 and off remdesivir Discontinued isolation 02/23 Con pt/ot -he seems to be making progress in therapy and will be returning to his fci ?? 1. Hypertension. Adjust clonidine and propranolol as needed. 2. Acute hypoxemic resp failure. Resolved. Currently on RA 3. Seizure disorder. 4. Autism disorder 5. Leukopenia, likely from covid. Monitoring. On vimpat, zonegran, lamictal, onfi, which are home meds. 6. Urinary retention - did receive straight cath but now urinating own but is incontinent; no significant residual on bladder scan Addendum on 03/02/2021-patient was discharged, patient's fci did not accept him until we get the helmet, patient's helmet was arranged and patient will be discharged to fci today, discharge summary, plan of care has not changed since the time of discharge placed on 02/28/2021 Nutritional status and in-house recommendations: Current Diet and/or Nutritional Supplementation ordered: DIET GENERAL Effective Now CrCl cannot be calculated (Patient's most recent lab result is older than the maximum 7 days allowed.). Allergies Allergen Reactions ??? Amoxicillin Hives ??? Carbamazepine Other (See Comments) tremors ??? Penicillins Hives ??? Phenytoin Sodium Rash and Nausea and Vomiting Pertinent Diagnostic Studies This Admission (Please see full report for details): 02/13 CXR IMPRESSION: Small lung volumes with perihilar and left retrocardiac airspace opacities, concerning for pneumonia. Discharge ROS: A comprehensive ROS was negative except for unable to obtain Discharge Exam: BP 130/71 (BP Location: Right arm, Patient Position (BP): Lying left side) Pulse 94 Temp 97.6 ??F (36.4 ??C) (Axillary) Resp 18 Ht 5' 7 (1.702 m) Wt 74.4 kg (164 lb) SpO2 97% BMI 25.69kg/m?? Last documented weight: Weight: 74.4 kg (164 lb) (02/13/21 1700) Physical Exam General-alert Cardiovascular regular rate and rhythm no murmurs rubs or gallops Lungs clear to auscultation bilaterally Abdomen soft nontender nondistended Extremities no clubbing cyanosis or edema Discharge Condition: improving. Prognosis: good Recent Labs: (Please note date of lab as some may be old) Lab Results Component Value Date WBC 5.5 02/20/2021 HGB 13.7 02/20/2021 HCT 38.9 (L) 02/20/2021 PLT 308 02/20/2021 NA 141 02/20/2021 K 3.7 02/20/2021 CO2 22 02/20/2021 BUN 15 02/20/2021 CREAT 0.92 02/20/2021 GLUCOSE 183 (H) 02/20/2021 AST 28 02/13/2021 ALT 28 02/13/2021 CRP 62.7 (H) 02/13/2021 No results found for: INR DISCHARGE ORDERS Code status at discharge: No CPR. There was not ongoing discussion on a change of code status this admission. Medications ordered may be substituted per institutions therapeutic interchange policy, unless otherwise indicated. Medication List CONTINUE taking these medications acetaminophen [...] by mouth 3 times daily. Refills: 0 Claritin 10 mg tablet Take 10 mg by mouth daily. Refills: 0 Generic drug: loratadine CLOBAZAM ORAL Take 40 mg by mouth daily at bedtime . Refills: 0 cloNIDine HCL 0.3 mg tablet Commonly known as: CATAPRES Take 0.3 mg by mouth Daily LATE. At 8 PM Refills: 0 Colace 100 mg capsule Take 100 mg by mouth 2 times daily. Refills: 0 Generic drug: docusate sodium DIASTAT RECTAL Insert by rectum. GIVE dIASTAT 20 MG RECTALLY FOR SEIZURES LASTING MORE THAN 5 MINUTES, IF STILL CONVULSING 30 MINUTES LATER GIVE AN ADDITIONAL 10 MG Refills: 0 ENSURE ORAL Take by mouth 1 time daily as needed. Refills: 0 Inderal LA 160 mg Long Acting 24 hour capsule Take 160 mg by mouth daily. Refills: 0 Generic drug: propranoloL LaMICtaL 150 mg tablet Take 300 mg by [...] 1 Tab by mouth daily. Refills: 0 raNITIdine 150 mg tablet Commonly known as: ZANTAC Take 150 mg by mouth 2 times daily. Refills: 0 Vimpat 100 mg tablet Take 200 mg by mouth 2 times daily . Refills: 0 Generic drug: lacosamide Vitamin D2 50,000 unit capsule Take 50,000 Units by mouth every 7 days Saturday. Refills: 0 Generic drug: ergocalciferol Zonegran 100 mg capsule Take 400 mg by mouth 2 times daily. Refills: 0 Indications of Use: AT HS Generic drug: Zonisamide STOP taking these medications codeine-guaiFENesin 10-100 mg/5 mL Liquid Commonly known as: ROBITUSSIN-AC Debrox 6.5 % Drops Generic drug: carbamide peroxide dextromethorphan-guaiFENesin 10-100 mg/5 mL solution Commonly known as: ROBITUSSIN DM SUDAFED PE ORAL Activity Status with Weight Bearing Status: ADL: Activity as Tolerated Rehab Services Orders: Rehab potential: good [x]PT Eval/Treat as indicated [x]OT Eval/Treat as indicated [x]ST Eval/Treat as indicated Weight Bearing Orders: no restriction Diet Orders: Content: no restriction Fluid restriction: None [x] OK for oral nutritional supplements per dietary consult Texture: Regular Liquids: regular liquids Tube Feeding Orders: Not Applicable Aspiration Precautions: Aspiration precautions as follows: sit at 90 degree angle (chin to neck angle- not HOB), alternate liquids and solids, small, single sips, small bites, crush pills in puree ifallowed, no straws, 100% supervision DVT Prophylaxis: NA Labs Needing Followup: None Antibiotic Surveillance Labs: None Accu checks: if the patient is a diabetic and/or on diabetic medications, should be checked: beforemeals, bedtime and PRN symptoms Anticoagulation Indication: None INR goal (if on Coumadin): patient not on Coumadin Does the patient have any known contraindications to full anticoagulation in case needed in the future: no Respiratory Orders: Oxygen:Room air 24 hours a day [x] Wean as tolerated Keep Oxygen Saturation > 92% Oxygen Indication: not on oxygen at discharge CPAP/BIPAP Orders: Not Medically Indicated Wound Care Instructions: Location of wound(s) which need treatment(s): none noted Star Score: 16 (02/14/211) Star Score: 17 (03/02/21 0200) Chavez Catheter: Chavez Indication: none/ok to remove if present Pertinent Consultations and Follow up Recommendations: ?? Follow up with Primary Care Physician in 1 week The following will be given unless crossed through: [x]PPD 2 Step on Admission (2099) [x]Pneumovax on Admission (2099) [x]Influenza Vaccination annually (11/11-05/11) [x]May consult dental, podiatry, opthalmology PRN [x]Siderails up for mobility [x]Barrier creat to [place] area as needed END OF ORDERS Primary Emergency Contact: SANDOR BEEBE, Edward Immunization Status at Discharge (please note that patient may receive immunizations on the day of discharge that are not reflected on this form): There is no immunization history on file for this patient. I certify that the post hospital acute therapy services are required to be given on an inpatient basis because of the above named patient's need for post acute therapy on a continuing basis for the condition(s) for which he/she was receiving inpatient hospital services prior to his/her transfer to post acute therapy. [facility] Office Number: [phone] [employer] Pager Number: [phone] Accepting Physician: Print Name: Date: Contact Information for Medication Questions: I have reviewed the above medications and certify that they are accurate for new orders. I crossed out any medications that I do not want to be continued. MAPPING TECHNICIAN * Jhonatan Mayen MD - 02/28/2021 3:35 PM CST DISCHARGE SUMMARY and INPATIENT ACUTE THERAPY ORDERS AT TRANSITION OF CARE Travis Granados Abiel 35 y.o. male 1985 CSN: [id number] Date of Admission: 02/13/2021 Document Creation Date: 02/28/2021 Date of Discharge: 02/28/2021 LOS: 15 days PCP: Gulshan Mena DO Dispo: fci 45 Minutes spent in the d/c process today. Reason for Admission/HPI: Chief Complaint Patient presents with ??? 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 Tmax 102F. 2 residents have covid. 1 seizure today, normal for pt. Nonverbal. Associated congestion. No OTC medications given. Glucose 119. Pertinent Discharge Diagnoses and Associated Hospital Course: Active Hospital Problems Diagnosis ??? Thrombocytopenia ??? Pneumonia due to COVID-19 virus ??? Hypernatremia ??? Intractable [place]-Gastaut syndrome ??? Autism Resolved Hospital Problems No resolved problems to display. HPI from admit note: Travis Beebe is a 35 y.o. male who presents with the following symptoms concerning for COVID-19: cough. A COVID-19 PCR test is positive. The patient has had confirmed exposure to a lab-confirmed COVID-19 individual. ?? The patient has hx of seizure disorder and autism who is presenting with above symptoms. Patient isaccompanied by caregiver. Patient lives in a fci. His roommates tested positive for covid a few days ago however patient was not tested due to family preference. He was having symptoms of cough. OTC cough medications tried by symptoms unimproved and hence brought to ED for evaluation. ?? Patient has not received the covid 19 vaccine. I have reviewed his med list. PROBLEM LIST: covid pneumonia, initial hypoxemia of 88% on RA, was on oxygen, now appears to be weaned off. Completed ten days of IV decadron 02/22 and off remdesivir Discontinued isolation 02/23 Con pt/ot -he seems to be making progress in therapy and will be returning to his fci ?? 1. Hypertension. Adjust clonidine and propranolol as needed. 2. Acute hypoxemic resp failure. Resolved. Currently on RA 3. Seizure disorder. 4. Autism disorder 5. Leukopenia, likely from covid. Monitoring. On vimpat, zonegran, lamictal, onfi, which are home meds. 6. Urinary retention - did receive straight cath but now urinating own but is incontinent; no significant residual on bladder scan Addendum 02/28 His group will not accept him until we are able to get his temitope. He other mercado is doing well; no changes over last 24 hours Nutritional status and in-house recommendations: Current Diet and/or Nutritional Supplementation ordered: DIET GENERAL Effective Now CrCl cannot be calculated (Patient's most recent lab result is older than the maximum 7 days allowed.). Allergies Allergen Reactions ??? Amoxicillin Hives ??? Carbamazepine Other (See Comments) tremors ??? Penicillins Hives ??? Phenytoin Sodium Rash and Nausea and Vomiting Pertinent Diagnostic Studies This Admission (Please see full report for details): 02/13 CXR IMPRESSION: Small lung volumes with perihilar and left retrocardiac airspace opacities, concerning for pneumonia. Discharge ROS: A comprehensive ROS was negative except for unable to obtain Discharge Exam: BP 104/71 (BP Location: Right arm, Patient Position (BP): Supine) Pulse 95 Temp 98.9 ??F (37.2 ??C) (Axillary) Resp 18 Ht 5' 7 (1.702 m) Wt 74.4 kg (164 lb) SpO2 96% BMI 25.69 kg/m?? Last documented weight: Weight: 74.4 kg (164 lb) (02/13/21 1700) Physical Exam CV regular Lungs clear Abdomen soft NT ND Ext no edema Discharge Condition: improving. Prognosis: good Recent Labs: (Please note date of lab as some may be old) Lab Results Component Value Date WBC 5.5 02/20/2021 HGB 13.7 02/20/2021 HCT 38.9 (L) 02/20/2021 PLT 308 02/20/2021 NA 141 02/20/2021 K 3.7 02/20/2021 CO2 22 02/20/2021 BUN 15 02/20/2021 CREAT 0.92 02/20/2021 GLUCOSE 183 (H) 02/20/2021 AST 28 02/13/2021 ALT 28 02/13/2021 CRP 62.7 (H) 02/13/2021 No results found for: INR DISCHARGE ORDERS Code status at discharge: No CPR. There was not ongoing discussion on a change of code status this admission. Medications ordered may be substituted per institutions therapeutic interchange policy, unless otherwise indicated. Medication List CONTINUE taking these medications acetaminophen [...] by mouth 3 times daily. Refills: 0 Claritin 10 mg tablet Take 10 mg by mouth daily. Refills: 0 Generic drug: loratadine CLOBAZAM ORAL Take 40 mg by mouth daily at bedtime . Refills: 0 cloNIDine HCL 0.3 mg tablet Commonly known as: CATAPRES Take 0.3 mg by mouth Daily LATE. At 8 PM Refills: 0 Colace 100 mg capsule Take 100 mg by mouth 2 times daily. Refills: 0 Generic drug: docusate sodium DIASTAT RECTAL Insert by rectum. GIVE dIASTAT 20 MG RECTALLY FOR SEIZURES LASTING MORE THAN 5 MINUTES, IF STILL CONVULSING 30 MINUTES LATER GIVE AN ADDITIONAL 10 MG Refills: 0 ENSURE ORAL Take by mouth 1 time daily as needed. Refills: 0 Inderal LA 160 mg Long Acting 24 hour capsule Take 160 mg by mouth daily. Refills: 0 Generic drug: propranoloL LaMICtaL 150 mg tablet Take 300 mg by [...] 1 Tab by mouth daily. Refills: 0 raNITIdine 150 mg tablet Commonly known as: ZANTAC Take 150 mg by mouth 2 times daily. Refills: 0 Vimpat 100 mg tablet Take 200 mg by mouth 2 times daily . Refills: 0 Generic drug: lacosamide Vitamin D2 50,000 unit capsule Take 50,000 Units by mouth every 7 days Saturday. Refills: 0 Generic drug: ergocalciferol Zonegran 100 mg capsule Take 400 mg by mouth 2 times daily. Refills: 0 Indications of Use: AT HS Generic drug: Zonisamide STOP taking these medications codeine-guaiFENesin 10-100 mg/5 mL Liquid Commonly known as: ROBITUSSIN-AC Debrox 6.5 % Drops Generic drug: carbamide peroxide dextromethorphan-guaiFENesin 10-100 mg/5 mL solution Commonly known as: ROBITUSSIN DM SUDAFED PE ORAL Activity Status with Weight Bearing Status: ADL: Activity as Tolerated Rehab Services Orders: Rehab potential: good [x]PT Eval/Treat as indicated [x]OT Eval/Treat as indicated [x]ST Eval/Treat as indicated Weight Bearing Orders: no restriction Diet Orders: Content: no restriction Fluid restriction: None [x] OK for oral nutritional supplements per dietary consult Texture: Regular Liquids: regular liquids Tube Feeding Orders: Not Applicable Aspiration Precautions: Aspiration precautions as follows: sit at 90 degree angle (chin to neck angle- not HOB), alternate liquids and solids, small, single sips, small bites, crush pills in puree ifallowed, no straws, 100% supervision DVT Prophylaxis: NA Labs Needing Followup: None Antibiotic Surveillance Labs: None Accu checks: if the patient is a diabetic and/or on diabetic medications, should be checked: beforemeals, bedtime and PRN symptoms Anticoagulation Indication: None INR goal (if on Coumadin): patient not on Coumadin Does the patient have any known contraindications to full anticoagulation in case needed in the future: no Respiratory Orders: Oxygen:Room air 24 hours a day [x] Wean as tolerated Keep Oxygen Saturation > 92% Oxygen Indication: not on oxygen at discharge CPAP/BIPAP Orders: Not Medically Indicated Wound Care Instructions: Location of wound(s) which need treatment(s): none noted Star Score: 16 (02/14/212130) Star Score: 17 (02/28/21 1008) Chavez Catheter: Chavez Indication: none/ok to remove if present Pertinent Consultations and Follow up Recommendations: ?? Follow up with Primary Care Physician in 1 week The following will be given unless crossed through: [x]PPD 2 Step on Admission (2099) [x]Pneumovax on Admission (2099) [x]Influenza Vaccination annually (11/11-05/11) [x]May consult dental, podiatry, opthalmology PRN [x]Siderails up for mobility [x]Barrier creat to [place] area as needed END OF ORDERS Primary Emergency Contact: SANDOR BEEBE Immunization Status at Discharge (please note that patient may receive immunizations on the day of discharge that are not reflected on this form): There is no immunization history on file for this patient. I certify that the post hospital acute therapy services are required to be given on an inpatient basis because of the above named patient's need for post acute therapy on a continuing basis for the condition(s) for which he/she was receiving inpatient hospital services prior to his/her transfer to post acute therapy. [facility] Office Number: [phone] [employer] Pager Number: [phone] Accepting Physician: Print Name: Date: Contact Information for Medication Questions: I have reviewed the above medications and certify that they are accurate for new orders. I crossed out any medications that I do not want to be continued. MAPPING TECHNICIAN * Jhonatan Mayen MD - 02/27/2021 9:43 AM CST DISCHARGE SUMMARY and INPATIENT ACUTE THERAPY ORDERS AT TRANSITION OF CARE Travis Beebe 35 y.o. male 1985 CSN: [id number] Date of Admission: 02/13/2021 Document Creation Date: 02/27/2021 Date of Discharge: 02/27/2021 LOS: 14 days PCP: Gulshan Mena DO Dispo: fci 45 Minutes spent in the d/c process today. Reason for Admission/HPI: Chief Complaint Patient presents with ??? 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 Tmax 102F. 2 residents have covid. 1 seizure today, normal for pt. Nonverbal. Associated congestion. No OTC medications given. Glucose 119. Pertinent Discharge Diagnoses and Associated Hospital Course: Active Hospital Problems Diagnosis ??? Thrombocytopenia ??? Pneumonia due to COVID-19 virus ??? Hypernatremia ??? Intractable Emmett-Gastaut syndrome ??? Autism Resolved Hospital Problems No resolved problems to display. HPI from admit note: Travis Beebe is a 35 y.o. male who presents with the following symptoms concerning for COVID-19: cough. A COVID-19 PCR test is positive. The patient has had confirmed exposure to a lab-confirmed COVID-19 individual. ?? The patient has hx of seizure disorder and autism who is presenting with above symptoms. Patient isaccompanied by caregiver. Patient lives in a fci. His roommates tested positive for covid a few days ago however patient was not tested due to family preference. He was having symptoms of cough. OTC cough medications tried by symptoms unimproved and hence brought to ED for evaluation. ?? Patient has not received the covid 19 vaccine. I have reviewed his med list. PROBLEM LIST: covid pneumonia, initial hypoxemia of 88% on RA, was on oxygen, now appears to be weaned off. Completed ten days of IV decadron 02/22 and off remdesivir Discontinued isolation 02/23 Con pt/ot -he seems to be making progress in therapy and will be returning to his fci ?? 1. Hypertension. Adjust clonidine and propranolol as needed. 2. Acute hypoxemic resp failure. Resolved. Currently on RA 3. Seizure disorder. 4. Autism disorder 5. Leukopenia, likely from covid. Monitoring. On vimpat, zonegran, lamictal, onfi, which are home meds. 6. Urinary retention - did receive straight cath but now urinating own but is incontinent; no significant residual on bladder scan Nutritional status and in-house recommendations: Current Diet and/or Nutritional Supplementation ordered: DIET GENERAL Effective Now estimated creatinine clearance is 105.8 mL/min (by C-G formula based on SCr of 0.92 mg/dL). Allergies Allergen Reactions ??? Amoxicillin Hives ??? Carbamazepine Other (See Comments) tremors ??? Penicillins Hives ??? Phenytoin Sodium Rash and Nausea and Vomiting Pertinent Diagnostic Studies This Admission (Please see full report for details): 02/13 CXR IMPRESSION: Small lung volumes with perihilar and left retrocardiac airspace opacities, concerning for pneumonia. Discharge ROS: A comprehensive ROS was negative except for unable to obtain Discharge Exam: BP 116/83 (BP Location: Right arm, Patient Position (BP): Supine) Pulse 71 Temp 98.8 ??F (37.1 ??C) (Axillary) Resp 20 Ht 5' 7 (1.702 m) Wt 74.4 kg (164 lb) SpO2 98% BMI 25.69 kg/m?? Last documented weight: Weight: 74.4 kg (164 lb) (02/13/21 1700) Physical Exam CV regular Lungs clear Abdomen soft NT ND Ext no edema Discharge Condition: improving. Prognosis: good Recent Labs: (Please note date of lab as some may be old) Lab Results Component Value Date WBC 5.5 02/20/2021 HGB 13.7 02/20/2021 HCT 38.9 (L) 02/20/2021 PLT 308 02/20/2021 NA 141 02/20/2021 K 3.7 02/20/2021 CO2 22 02/20/2021 BUN 15 02/20/2021 CREAT 0.92 02/20/2021 GLUCOSE 183 (H) 02/20/2021 AST 28 02/13/2021 ALT 28 02/13/2021 CRP 62.7 (H) 02/13/2021 No results found for: INR DISCHARGE ORDERS Code status at discharge: No CPR. There was not ongoing discussion on a change of code status this admission. Medications ordered may be substituted per institutions therapeutic interchange policy, unless otherwise indicated. Medication List CONTINUE taking these medications acetaminophen [...] by mouth 3 times daily. Refills: 0 Claritin 10 mg tablet Take 10 mg by mouth daily. Refills: 0 Generic drug: loratadine CLOBAZAM ORAL Take 40 mg by mouth daily at bedtime . Refills: 0 cloNIDine HCL 0.3 mg tablet Commonly known as: CATAPRES Take 0.3 mg by mouth Daily LATE. At 8 PM Refills: 0 Colace 100 mg capsule Take 100 mg by mouth 2 times daily. Refills: 0 Generic drug: docusate sodium DIASTAT RECTAL Insert by rectum. GIVE dIASTAT 20 MG RECTALLY FOR SEIZURES LASTING MORE THAN 5 MINUTES, IF STILL CONVULSING 30 MINUTES LATER GIVE AN ADDITIONAL 10 MG Refills: 0 ENSURE ORAL Take by mouth 1 time daily as needed. Refills: 0 Inderal LA 160 mg Long Acting 24 hour capsule Take 160 mg by mouth daily. Refills: 0 Generic drug: propranoloL LaMICtaL 150 mg tablet Take 300 mg by [...] 1 Tab by mouth daily. Refills: 0 raNITIdine 150 mg tablet Commonly known as: ZANTAC Take 150 mg by mouth 2 times daily. Refills: 0 Vimpat 100 mg tablet Take 200 mg by mouth 2 times daily . Refills: 0 Generic drug: lacosamide Vitamin D2 50,000 unit capsule Take 50,000 Units by mouth every 7 days Saturday. Refills: 0 Generic drug: ergocalciferol Zonegran 100 mg capsule Take 400 mg by mouth 2 times daily. Refills: 0 Indications of Use: AT HS Generic drug: Zonisamide STOP taking these medications codeine-guaiFENesin 10-100 mg/5 mL Liquid Commonly known as: ROBITUSSIN-AC Debrox 6.5 % Drops Generic drug: carbamide peroxide dextromethorphan-guaiFENesin 10-100 mg/5 mL solution Commonly known as: ROBITUSSIN DM SUDAFED PE ORAL Activity Status with Weight Bearing Status: ADL: Activity as Tolerated Rehab Services Orders: Rehab potential: good [x]PT Eval/Treat as indicated [x]OT Eval/Treat as indicated [x]ST Eval/Treat as indicated Weight Bearing Orders: no restriction Diet Orders: Content: no restriction Fluid restriction: None [x] OK for oral nutritional supplements per dietary consult Texture: Regular Liquids: regular liquids Tube Feeding Orders: Not Applicable Aspiration Precautions: Aspiration precautions as follows: sit at 90 degree angle (chin to neck angle- not HOB), alternate liquids and solids, small, single sips, small bites, crush pills in puree ifallowed, no straws, 100% supervision DVT Prophylaxis: NA Labs Needing Followup: None Antibiotic Surveillance Labs: None Accu checks: if the patient is a diabetic and/or on diabetic medications, should be checked: beforemeals, bedtime and PRN symptoms Anticoagulation Indication: None INR goal (if on Coumadin): patient not on Coumadin Does the patient have any known contraindications to full anticoagulation in case needed in the future: no Respiratory Orders: Oxygen:Room air 24 hours a day [x] Wean as tolerated Keep Oxygen Saturation > 92% Oxygen Indication: not on oxygen at discharge CPAP/BIPAP Orders: Not Medically Indicated Wound Care Instructions: Location of wound(s) which need treatment(s): none noted Star Score: 16 (02/14/212130) Star Score: 17 (02/26/212117) Chavez Catheter: Chavez Indication: none/ok to remove if present Pertinent Consultations and Follow up Recommendations: ?? Follow up with Primary Care Physician in 1 week The following will be given unless crossed through: [x]PPD 2 Step on Admission (2099) [x]Pneumovax on Admission (2099) [x]Influenza Vaccination annually (11/11-05/11) [x]May consult dental, podiatry, opthalmology PRN [x]Siderails up for mobility [x]Barrier creat to [place] area as needed END OF ORDERS ?? Primary Emergency Contact: SANDOR BEEBE, Edward Immunization Status at Discharge (please note that patient may receive immunizations on the day of discharge that are not reflected on this form): There is no immunization history on file for this patient. I certify that the post hospital acute therapy services are required to be given on an inpatient basis because of the above named patient's need for post acute therapy on a continuing basis for the condition(s) for which he/she was receiving inpatient hospital services prior to his/her transfer to post acute therapy. [facility] Office Number: [phone] [employer] Pager Number: [phone] Accepting Physician: Print Name: Date: Contact Information for Medication Questions: I have reviewed the above medications and certify that they are accurate for new orders. I crossed out any medications that I do not want to be continued. MAPPING TECHNICIAN documented in this encounter Discharge Instructions * Discharge Instructions* Jhonatan Mayen MD - 02/27/2021 9:41 AM GIS MAPPING TECHNICIAN Your discharging physician is Jhonatan Mayen MD and may be reached at for any questions or concerns until you see your doctor. FOLLOW-UP Follow up with Gulshan Mena DO in 5 days. Prescriptions given? No Heart Patients: Weigh yourself everyday at the same time, with the same amount of clothing and after you have emptied your bladder. Keep a log of your daily weights and bring them with you to your physician appointments. Call your physician (*) if you have a weight gain of 3 pounds in one day (or 5pounds in 2 or more days) or (*) if you have increased shortness of breath or (*) if you have swelling in your feet, belly or legs. <<<Call 911 or go to the nearest emergency room if you have increased shortness of breath or chest pain or discomfort that is not relieved by nitroglycerin. ACTIVITY Your activity level is: increase activity as tolerated and no smoking. DIET Your diet is: DIET GENERAL Effective Now WOUND CARE For your wound/incision: NA. MAPPING TECHNICIAN documented in this encounter Medications at [...] by mouth daily at bedtime . 02/09/2022 DIAZEPAM (DIASTAT RECTAL) Insert by rectum. GIVE [...] as of this encounter Progress Notes * Damaris Bull RN - 03/02/2021 1:02 PM CST Caregiver Mayela at bedside, getting patient dressed to take back to Skilled Nursing today. He has his newhelmet on his head and in place. RN gave caregiver his VNS magnet and 3 toys he came in with. VSS. Patient cooperative, smiling, and in a good mood. He will be transferred to the car via wheelchair. DC paperwork given to caregiver. MAPPING TECHNICIAN * Val Ross RN - 03/02/2021 3:54 AM CST Pt is presently lying in bed at this time. Call light in reach. No s/s of pain present. Pt took allmeds well this shift. No seizure activity present thus far. Requires assistance with all ADL's. MAPPING TECHNICIAN * Sandee Onofre MD - 03/01/2021 11:59 AM CST Hospitalist Progress Note Admit Date: 02/13/2021 Date of Note: 03/01/2021, 11:59 AM PCP: Gulshan Mena DO LOS: 16 days Subjective: Pt seen and examined at the bedside. *Denies any acute events overnight Objective: BP 134/72 (BP Location: Right arm, Patient Position (BP): Supine) Pulse 87 Temp 98.9 ??F (37.2 ??C) (Axillary) Resp 18 Ht 5' 7 (1.702 m) Wt 74.4 kg (164 lb) SpO2 100% BMI 25.69 kg/m?? No data recorded. Moderate amount stool (02/27/211999) Body mass index is 25.69 kg/m??. Physical Exam General- Alert not oriented HEENT -normocephalic, atraumatic Cardiovascular- regular rate and rhythm, no murmurs, rubs or gallops Lungs - clear to auscultation bilaterally Abdomen- soft, non tender, nondistended Neurologically- nonfocal Psychiatric- intact Skin- intact no skin rashes, erythema noted Extremities - no clubbing, cyanosis or edema Data Base: No results for input(s): WBC, HGB, PLT in the last 72 hours. Invalid input(s): HEMATOCIT No results for input(s): NA, K, CL, CO2, BUN, GLUCOSE in the last 72 hours. Invalid input(s): CR, CALCIUM, ALBU, PHOS No components found for: LABINR Imaging XR CHEST PA OR AP 1 VW Narrative: PORTABLE AP VIEW OF THE CHEST DATE: 02/13/2021 10:47 PM HISTORY: Shortness of Breath SOB. COMPARISON: None available FINDINGS: Lung volumes are small. There are perihilar opacities and left retrocardiac airspace opacities. No pneumothorax. No pleural effusion. The cardiac and mediastinal silhouettes are normal. Impression: IMPRESSION: Small lung volumes with perihilar and left retrocardiac airspace opacities, concerning for pneumonia. DICTATION LOCATION: Location 1 - [facility] No results found for this or any previous visit. No results found for this or any previous visit. CURRENT (OP & IP) meds: Current Facility-Administered Medications Medication Dose Route Frequency Provider Last Rate Last Admin ??? sennosides-docusate sodium (SENNA-S) 8.6-50 mg per tablet 2 Tablet 2 Tablet Oral BID Diane Mejia MD 2 Tablet at 03/01/21 0943 ??? [Held by Provider] cloNIDine HCL (CATAPRES) tablet 0.1 mg 0.1 mg Oral daily BEDTIME Diane Mejia MD 0.1 mg at 02/15/216 ??? loratadine (CLARITIN) tablet 10 mg 10 mg Oral daily Diane Mejia MD 10 mg at 03/01/21 0944 ??? [Held by Provider] propranoloL (INDERAL LA) SR 24 hour capsule 160 mg 160 mg Oral daily Diane Mejia MD 160 mg at 02/14/21 1109 ??? cloBAZam (ONFI) tablet 40 mg 40 mg Oral daily BEDTIME Frieda Allison MD 40 mg at 02/28/212136 ??? lacosamide (VIMPAT) tablet 200 mg 200 mg Oral BID Frieda Allison MD 200 mg at 03/01/21943 ??? lamoTRIgine (LaMICtal) tablet 300 mg 300 mg Oral TID Frieda Allison MD 300 mg at 03/01/21943 ??? Zonisamide (ZONEGRAN) capsule 400 mg 400 mg Oral BID Frieda Allison MD 400 mg at 03/01/2143 ??? busPIRone (BUSPAR) tablet 10 mg 10 mg Oral TID Frieda Allison MD 10 mg at 03/01/21943 ??? guaiFENesin (ROBITUSSIN) 100 mg/5 mL oral solution 200 mg 200 mg Oral every 4 hours PRN Frieda Allison MD ??? acetaminophen (TYLENOL) tablet 650 mg 650 mg Oral every 4 hours PRN Frieda Allison MD ??? naloxone (NARCAN) 0.4 mg/mL injection 0.1 mg 0.1 mg IV see admin instructions Frieda Allison MD ??? enoxaparin (LOVENOX) injection 40 mg 40 mg subCUT every 24 hours Frieda Allison MD 40 mg at 02/27/21 0902 Assessment and Plan: Principal Problem: Pneumonia due to COVID-19 virus Active Problems: Intractable [place] syndrome Autism Hypernatremia Thrombocytopenia COVID-pneumonia Initial hypoxemia of 88% on room air, was on oxygen, no appear to be weaned off of oxygen, completed 10 days of IV Decadron on 02/22 and off of remdesivir - Discontinued isolation on 03/12 - PT OT [facility] be [facility] but patient lost his helmet and now unable to be discharged to [facility] Hypertension-adjust clonidine and propranolol as needed Acute hypoxic respiratory failure-resolved Seizure disorder, continue home meds including Lamictal, Vimpat, Urinary retention, straight cath as needed Seizure disorder, autism-Home medications Disposition: Patient has a discharge order in, patient is missing helmet, unable to be discharged until we have the helmet placed Plan discussed with patient; questions were answered Current Code Status -NO CPR (In Event of Cardiopulmonary Arrest) Sandee Onofre M.D This note was at least partially dictated using Dragon Dictation. Please excuse any typographical errors Contact [facility] hospitalist after hours 7pm-7am MAPPING TECHNICIAN * Sheila Whitten RN - 02/27/2021 6:51 PM CST Pt has not taken his 1800 Buspirone (10mg) and his lamotrigine (300mg). I found it best to give these medications with his meals. He was not interested in the pudding today, but if you order mohawk fries or pancakes, you can put the meds in pieces of those foods and he takes them well. Patient is : A&Ox ISMAEL Behaviors: Calm Cardio: WDL Activity: x2 assist Resp: WDL Pain Range/Score during the shift: No signs on distress Medication that have helped or need to be changed: All meds working at this time Diet Tolerated : General. Will need help feeding Void or Bowel Movement: No BM on shift Skin Concerns : None Discharge: TBD. We will need to find his helmet for his facility to accept him back. It was last seen in the ED. Pt has remained free of falls this shift. Pt is stable and resting comfortably. Will continue to monitor PT. MAPPING TECHNICIAN * Yumiko Guardado RN - 02/26/2021 1:00 PM CST Patient was up ambulating in the alcocer with [facility] caregiver to came to check on him and see himambulate. She assisted him in eating his late breakfast as well. MAPPING TECHNICIAN * Jhonatan Mayen MD - 02/26/2021 10:21 AM CST [facility] Adult Progress Note Admit Date: 02/13/2021 Date of Note: 02/26/2021, 10:21 AM LOS: 13 days Previous history of present illness and review of systems have been reviewed today as documented inthe H&P on 02/13/2021; medications, labs, studies, notes, orders and consults have been reviewed.I have reviewed the notes from yesterday. PLAN: Active Problems: covid pneumonia, initial hypoxemia of 88% on RA, was on oxygen, now appears to be weaned off. Completed ten days of IV decadron 02/22 and off remdesivir Discontinued isolation 02/23 Con pt/ot -he seems to be making progress in therapy; I am hoping he will be able to [facility] 1. Hypertension. Adjust clonidine and propranolol as needed. 2. Acute hypoxemic resp failure. Resolved. Currently on RA 3. Seizure disorder. 4. Autism disorder 5. Leukopenia, likely from covid. Monitoring. On vimpat, zonegran, lamictal, onfi, which are home meds. 6. Urinary retention - monitor - straight cath as needed Quality/Safety/Core Measures/Disposition Planning: Diet DIET GENERAL Effective Now PT/OT:no DVT Prophylaxis - Enoxaparin Chavez catheter:absent Current Code Status -NO CPR (In Event of Cardiopulmonary Arrest) Plan discussed with patient, questions answered. Dispo: PT/OT eval. Pt will need to get stronger SUBJECTIVE: Remains on room air Moved out of covid unit Informed he is doing better with therapy OBJECTIVE: Intake/Output Summary (Last 24 hours) at 02/26/2021 1021 Last data filed at 02/25/20212025 Gross per 24 hour Intake 60 ml Output -- Net 60 ml Incontinent large amount stool (02/22/21 1800) Physical Exam: BP 116/83 (BP Location: Right arm, Patient Position (BP): Supine) Pulse 96 Temp 98.9 ??F (37.2 ??C) Resp 20 Ht 5' 7 (1.702 m) Wt 74.4 kg (164 lb) SpO2 99% BMI 25.69 kg/m?? Temp (24hrs), Av.9 ??F (37.2 ??C), Min:98.9 ??F (37.2 ??C), Max:98.9 ??F (37.2 ??C) General In position Lungs Bilateral air entry Heart regular rate and rhythm Abdomen soft, non-tender. Bowel sounds normal. Extremities Neuro extremities normal, atraumatic, no cyanosis or edema Skin: no rash Move all ext. limited communicating. Data: I have reviewed all new labs and studies resulted and pertinent ones are noted below Jhonatan Mayen MD [facility] Adult Hospitalist If you need assistance from 0700 to 1900: Secure Chat me for non-urgent matters If you need assistance from 1900 to 0700: Contact the vHospitalist provider through the [facility] Virtual Connector in the drop down menu (preferred) 02/26/2021, 10:21 AM MAPPING TECHNICIAN * Jhonatan Mayen MD - 02/25/2021 10:09 AM CST [facility] Adult Progress Note Admit Date: 02/13/2021 Date of Note: 02/25/2021, 10:09 AM LOS: 12 days Previous history of present illness and review of systems have been reviewed today as documented inthe H&P on 02/13/2021; medications, labs, studies, notes, orders and consults have been reviewed.I have reviewed the notes from yesterday. PLAN: Active Problems: covid pneumonia, initial hypoxemia of 88% on RA, was on oxygen, now appears to be weaned off. Completed ten days of IV decadron 02/22 and off remdesivir Discontinued isolation 02/23 Con pt/ot - appears making progress and would likely be able to return on Saturday 1. Hypertension. Adjust clonidine and propranolol as needed. 2. Acute hypoxemic resp failure. Resolved. Currently on RA 3. Seizure disorder. 4. Autism disorder 5. Leukopenia, likely from covid. Monitoring. On vimpat, zonegran, lamictal, onfi, which are home meds. 6. Urinary retention - monitor - straight cath as needed Quality/Safety/Core Measures/Disposition Planning: Diet DIET GENERAL Effective Now PT/OT:no DVT Prophylaxis - Enoxaparin Chavez catheter:absent Current Code Status -NO CPR (In Event of Cardiopulmonary Arrest) Plan discussed with patient, questions answered. Dispo: PT/OT eval. Pt will need to get stronger SUBJECTIVE: Remains on room air Moved out of covid unit Informed he is doing better with therapy OBJECTIVE: Intake/Output Summary (Last 24 hours) at 02/25/2021 1009 Last data filed at 02/24/20212056 Gross per 24 hour Intake 400 ml Output -- Net 400 ml Incontinent large amount stool (02/22/21 1800) Physical Exam: BP 116/83 (BP Location: Right arm, Patient Position (BP): Supine) Pulse 96 Temp 98.5 ??F (36.9 ??C) (Axillary) Resp 20 Ht 5' 7 (1.702 m) Wt 74.4 kg (164 lb) SpO2 99% BMI25.69 kg/m?? Temp (24hrs), Av.3 ??F (36.8 ??C), Min:98.1 ??F (36.7 ??C), Max:98.5 ??F (36.9 ??C) General In position Lungs Bilateral air entry Heart regular rate and rhythm Abdomen soft, non-tender. Bowel sounds normal. Extremities Neuro extremities normal, atraumatic, no cyanosis or edema Skin: no rash Move all ext. limited communicating. Data: I have reviewed all new labs and studies resulted and pertinent ones are noted below Jhonatan Mayen MD [facility] Adult Hospitalist If you need assistance from 0700 to 1900: Secure Chat me for non-urgent matters If you need assistance from 1900 to 0700: Contact the vHospitalist provider through the [employer] Virtual [employer]ctor in the drop down menu (preferred) 02/25/2021, 10:09 AM MAPPING TECHNICIAN * Mayela Frey GN - 02/24/2021 5:37 PM CST VSS. No signs of pain or discomfort. Pt moved around freely in bed. Pt was very playful and cooperative today. Pt transferred to room 7349. Report was given to nurse. MAPPING TECHNICIAN * Jhonatan Mayen MD - 02/24/2021 11:49 AM CST [facility] Adult Progress Note Admit Date: 02/13/2021 Date of Note: 02/24/2021, 11:49 AM LOS: 11 days Previous history of present illness and review of systems have been reviewed today as documented inthe H&P on 02/13/2021; medications, labs, studies, notes, orders and consults have been reviewed.I have reviewed the notes from yesterday. PLAN: Active Problems: covid pneumonia, initial hypoxemia of 88% on RA, was on oxygen, now appears to be weaned off. Completed ten days of IV decadron 02/22 and off remdesivir Discontinued isolation 02/23 Con pt/ot - awaiting for improvement to get back to [facility] 1. Hypertension. Adjust clonidine and propranolol as needed. 2. Acute hypoxemic resp failure. Resolved. Currently on RA 3. Seizure disorder. 4. Autism disorder 5. Leukopenia, likely from covid. Monitoring. On vimpat, zonegran, lamictal, onfi, which are home meds. 6. Urinary retention - monitor - straight cath as needed Plan discussed with Nurse Georges at and also Mom over phone Quality/Safety/Core Measures/Disposition Planning: Diet DIET GENERAL Effective Now PT/OT:no DVT Prophylaxis - Enoxaparin Chavez catheter:absent Current Code Status -NO CPR (In Event of Cardiopulmonary Arrest) Plan discussed with patient, questions answered. Dispo: PT/OT eval. Pt will need to get stronger SUBJECTIVE: Had to be straight cathed last night On room air OBJECTIVE: Intake/Output Summary (Last 24 hours) at 02/24/2021 1149 Last data filed at 02/23/2021 2044 Gross per 24 hour Intake 962 ml Output 700 ml Net 262 ml Incontinent large amount stool (02/22/21 1800) Physical Exam: BP 125/71 (BP Location: Left lower leg, Patient Position (BP): Supine) Pulse 85 Temp 98.1 ??F (36.7 ??C) (Axillary) Resp 20 Ht 5' 7 (1.702 m) Wt 74.4 kg (164 lb) SpO2 98% BMI 25.69 kg/m?? Temp (24hrs), Av.2 ??F (36.8 ??C), Min:98.1 ??F (36.7 ??C), Max:98.3 ??F (36.8 ??C) General In position Lungs Bilateral air entry Heart regular rate and rhythm Abdomen soft, non-tender. Bowel sounds normal. Extremities Neuro extremities normal, atraumatic, no cyanosis or edema Skin: no rash Move all ext. limited communicating. Data: I have reviewed all new labs and studies resulted and pertinent ones are noted below Jhonatan Mayen MD [facility] Adult Hospitalist If you need assistance from 0700 to 1900: Secure Chat me for non-urgent matters If you need assistance from 1900 to 0700: Contact the vHospitalist provider through the [facility] Virtual Connector in the drop down menu (preferred) 02/24/2021, 11:49 AM MAPPING TECHNICIAN * Juliana Nichols RN - 02/24/2021 5:35 AM CST Pt did not show signs of distress, pain, or nausea during shift. Orientation status unable to be assessed due to pt's nonverbal state, but pt engaged with RN midshift and interacted with the toys in the room. Pt swatted at the spoon of pudding with his evening medicine and did not take medicine; [facility] hospitalist notified. Pt's bladder scan showed 237 ml retained; no straight cath done since parameter wasn't met. Pt slept in between care. MAPPING TECHNICIAN * Jhonatan Mayen MD - 02/23/2021 9:28 AM CST [facility] Adult Progress Note Admit Date: 02/13/2021 Date of Note: 02/23/2021, 9:28 AM LOS: 10 days Previous history of present illness and review of systems have been reviewed today as documented inthe H&P on 02/13/2021; medications, labs, studies, notes, orders and consults have been reviewed.I have reviewed the notes from yesterday. PLAN: Active Problems: covid pneumonia, initial hypoxemia of 88% on RA, was on oxygen, now appears to be weaned off. Completed ten days of IV decadron 02/22 and off remdesivir Discontinued isolation 02/23 Con pt/ot - awaiting for improvement to get [facility] to [facility] 1. Hypertension. Adjust clonidine and propranolol as needed. 2. Acute hypoxemic resp failure. Resolved. Currently on RA 3. Seizure disorder. 4. Autism disorder 5. Leukopenia, likely from covid. Monitoring. On vimpat, zonegran, lamictal, onfi, which are home meds. Quality/Safety/Core Measures/Disposition Planning: Diet DIET GENERAL Effective Now PT/OT:no DVT Prophylaxis - Enoxaparin Chavez catheter:absent Current Code Status -NO CPR (In Event of Cardiopulmonary Arrest) Plan discussed with patient, questions answered. Dispo: PT/OT eval. Pt will need to get stronger SUBJECTIVE: Smiles Looks comfortable on room air OBJECTIVE: Intake/Output Summary (Last 24 hours) at 02/23/2021 0928 Last data filed at 02/23/2021 0014 Gross per 24 hour Intake 360 ml Output -- Net 360 ml Incontinent large amount stool (02/22/21 1800) Physical Exam: BP 105/67 (BP Location: Left arm, Patient Position (BP): Supine) Pulse 85 Temp 98.3 ??F (36.8 ??C) (Axillary) Resp 18 Ht 5' 7 (1.702 m) Wt 74.4 kg (164 lb) SpO2 94% BMI 25.69 kg/m?? Temp (24hrs), Av.6 ??F (37 ??C), Min:98.1 ??F (36.7 ??C), Max:99.2 ??F (37.3 ??C) General In position Lungs Bilateral air entry Heart regular rate and rhythm Abdomen soft, non-tender. Bowel sounds normal. Extremities Neuro extremities normal, atraumatic, no cyanosis or edema Skin: no rash Move all ext. limited communicating. Data: I have reviewed all new labs and studies resulted and pertinent ones are noted below Jhonatan Mayen MD [facility] Adult Hospitalist If you need assistance from 0700 to 1900: Secure Chat me for non-urgent matters If you need assistance from 1900 to 0700: Contact the ospitalist provider through the [facility] Virtual Connector in the drop down menu (preferred) 02/23/2021, 9:28 AM MAPPING TECHNICIAN * Mack Coleman RN - 02/23/2021 8:14 AM CST Patient alert, but unable to verbalize. Medications given in ice cream and tolerated well. Patient awake most of shift. Cooperative with care. Did not appear to be in pain. Assessments completed and education provided. Mack Coleman RN, 02/23/2021 8:15 AM MAPPING TECHNICIAN * Jhonatan Mayen MD - 02/22/2021 8:33 AM CST [facility] Adult Progress Note Admit Date: 02/13/2021 Date of Note: 02/22/2021, 8:33 AM LOS: 9 days Previous history of present illness and review of systems have been reviewed today as documented inthe H&P on 02/13/2021; medications, labs, studies, notes, orders and consults have been reviewed.I have reviewed the notes from yesterday. PLAN: Active Problems: covid pneumonia, initial hypoxemia of 88% on RA, was on oxygen, now appears to be weaned off. cont IV decadron (day #10) - last dose today, dc Remdesivir Con pt/ot 1. Hypertension. Adjust clonidine and propranolol as needed. 2. Acute hypoxemic resp failure. Resolved. Currently on RA 3. Seizure disorder. 4. Autism disorder 5. Leukopenia, likely from covid. Monitoring. On vimpat, zonegran, lamictal, onfi, which are home meds. Quality/Safety/Core Measures/Disposition Planning: Diet DIET GENERAL Effective Now PT/OT:no DVT Prophylaxis - Enoxaparin Chavez catheter:absent Current Code Status -NO CPR (In Event of Cardiopulmonary Arrest) Plan discussed with patient, questions answered. Dispo: PT/OT eval. Pt will need to get stronger SUBJECTIVE: Smiles Looks comfortable on room air OBJECTIVE: Intake/Output Summary (Last 24 hours) at 02/22/2021 0833 Last data filed at 02/21/2021 1200 Gross per 24 hour Intake 490 ml Output -- Net 490 ml Moderate amount stool (02/21/21 1835) Physical Exam: BP 116/84 (BP Location: Right arm, Patient Position (BP): Supine) Pulse 88 Temp 98.2 ??F (36.8 ??C) (Axillary) Resp 23 Ht 5' 7 (1.702 m) Wt 74.4 kg (164 lb) SpO2 97% BMI25.69 kg/m?? Temp (24hrs), Av.4 ??F (36.9 ??C), Min:97.2 ??F (36.2 ??C), Max:99.8 ??F (37.7 ??C) General In position Lungs Bilateral air entry Heart regular rate and rhythm Abdomen soft, non-tender. Bowel sounds normal. Extremities Neuro extremities normal, atraumatic, no cyanosis or edema Skin: no rash Move all ext. limited communicating. Data: I have reviewed all new labs and studies resulted and pertinent ones are noted below Jhonatan Mayen MD [facility] Adult Hospitalist If you need assistance from 0700 to 1900: Secure Chat me for non-urgent matters If you need assistance from 1900 to 0700: Contact the vHospitalist provider through the [employer] in the drop down menu (preferred) 02/22/2021, 8:33 AM MAPPING TECHNICIAN * Mack Coleman RN - 02/22/2021 8:18 AM CST Patient alert, but unable to verbalize. BM x1 during shift. Incontinent care completed. Medicationsgiven in ice cream and tolerated well. Patient awake all of shift. Cooperative with care. Did not appear to be in pain. Assessments completed and education provided. Mack Coleman RN, 02/22/2021 8:21 AM MAPPING TECHNICIAN * Jhonatan Mayen MD - 02/21/2021 8:40 AM CST [facility] Adult Progress Note Admit Date: 02/13/2021 Date of Note: 02/21/2021, 8:40 AM LOS: 8 days Previous history of present illness and review of systems have been reviewed today as documented inthe H&P on 02/13/2021; medications, labs, studies, notes, orders and consults have been reviewed.I have reviewed the notes from yesterday. PLAN: Active Problems: covid pneumonia, initial hypoxemia of 88% on RA, was on oxygen, now appears to be weaned off. cont IV decadron (day #9), dc Remdesivir Con pt/ot 1. Hypertension. Adjust clonidine and propranolol as needed. 2. Acute hypoxemic resp failure. Resolved. Currently on RA 3. Seizure disorder. 4. Autism disorder 5. Leukopenia, likely from covid. Monitoring. On vimpat, zonegran, lamictal, onfi, which are home meds. Quality/Safety/Core Measures/Disposition Planning: Diet DIET GENERAL Effective Now PT/OT:no DVT Prophylaxis - Enoxaparin Chavez catheter:absent Current Code Status -NO CPR (In Event of Cardiopulmonary Arrest) Plan discussed with patient, questions answered. Dispo: PT/OT eval. Pt will need to get stronger SUBJECTIVE: Non verbal Looks comfortable on room air OBJECTIVE: Intake/Output Summary (Last 24 hours) at 02/21/2021 0840 Last data filed at 02/20/2021 1033 Gross per 24 hour Intake 550 ml Output -- Net 550 ml Incontinent large amount stool (02/18/21 2156) Physical Exam: BP 100/86 (BP Location: Left arm, Patient Position (BP): Supine) Pulse 91 Temp 98.2 ??F (36.8 ??C) (Oral) Resp 18 Ht 5' 7 (1.702 m) Wt 74.4 kg (164 lb) SpO2 98% BMI 25.69 kg/m?? Temp (24hrs), Av.1 ??F (36.7 ??C), Min:98 ??F (36.7 ??C), Max:98.2 ??F (36.8 ??C) General In position Lungs Bilateral air entry Heart regular rate and rhythm Abdomen soft, non-tender. Bowel sounds normal. Extremities Neuro extremities normal, atraumatic, no cyanosis or edema Skin: no rash Move all ext. limited communicating. Data: I have reviewed all new labs and studies resulted and pertinent ones are noted below Jhonaatn Mayen MD [facility] Adult Hospitalist If you need assistance from 0700 to 1900: Secure Chat me for non-urgent matters If you need assistance from 1900 to 0700: Contact the vHospitalist provider through the [facility] [employer] in the drop down menu (preferred) 02/21/2021, 8:40 AM MAPPING TECHNICIAN * Diane Mejia MD - 02/20/2021 5:42 PM CST [facility] Adult Progress Note Admit Date: 02/13/2021 Date of Note: 02/20/2021, 5:42 PM LOS: 7 days Previous history of present illness and review of systems have been reviewed today as documented inthe H&P on 02/13/2021; medications, labs, studies, notes, orders and consults have been reviewed.I have reviewed the notes from yesterday. PLAN: Active Problems: 1. covid pneumonia, initial hypoxemia of 88% on RA, on 2L/min now on RA. cont IV decadron, dc Remdesivir Con pt/ot 2. Hypertension. Adjust clonidine and propranolol as needed. 3. Acute hypoxemic resp failure. Resolved. Currently on RA 4. Seizure disorder. 5. Autism disorder 6. Leukopenia, likely from covid. Monitoring. On vimpat, zonegran, lamictal, onfi, which are home meds. Quality/Safety/Core Measures/Disposition Planning: Diet DIET GENERAL Effective Now PT/OT:no DVT Prophylaxis - Enoxaparin Chavez catheter:absent Current Code Status -NO CPR (In Event of Cardiopulmonary Arrest) Plan discussed with patient, questions answered. Dispo: PT/OT eval. Pt will need to get stronger SUBJECTIVE: Pt is seen and examined this morning. Currently on RA. Travis is not in acute distress. Not eating much. Lethargic. He refuses meds occasionally. check cbc and bmp and give IVF. OBJECTIVE: Intake/Output Summary (Last 24 hours) at 02/20/2021 1742 Last data filed at 02/20/2021 1033 Gross per 24 hour Intake 550 ml Output -- Net 550 ml Incontinent large amount stool (02/18/21 2148) Physical Exam: BP (!) 131/117 (BP Location: Left arm, Patient Position (BP): Supine) Pulse (!) 103 Temp 98.1 ??F (36.7 ??C) (Oral) Resp 20 Ht 5' 7 (1.702 m) Wt 74.4 kg (164 lb) SpO2 97% BMI 25.69 kg/m?? Temp (24hrs), Av.4 ??F (36.9 ??C), Min:97.7 ??F (36.5 ??C), Max:99.8 ??F (37.7 ??C) General Lethargic. Say simple words. Lungs Mild insp crackles john. Heart regular rate and rhythm Abdomen soft, non-tender. Bowel sounds normal. Extremities Neuro extremities normal, atraumatic, no cyanosis or edema Skin: no rash Move all ext. limited communicating. Data: I have reviewed all new labs and studies resulted and pertinent ones are noted below Diane Mejia MD [facility] Adult Hospitalist If you need assistance from 0700 to 1900: Secure Chat me for non-urgent matters If you need assistance from 1900 to 0700: Contact the ospitalist provider through the [employer] in the drop down menu (preferred) Total time spent: 30 minutes are spent today in care of this patient which includes but not limitedto face to face patient care, review of medical history and labs imaging etc, discussing with the family members, discussing with consultants and multidisciplinary rounds. More than 50% time spent in counseling and coordination of care. 02/20/2021, 5:42 PM MAPPING TECHNICIAN * Celina Cotto RN - 02/20/2021 12:54 PM CST [facility] Rehab consult received. Will need to be off Covid Isolation before we would consider for admission. Will follow. Celina Cotto RN-BSN [facility] [place] [phone] MAPPING TECHNICIAN * Maia Angeles RN - 02/20/2021 1:59 AM CST Unable to assess pt orientation, non verbal. Pt tolerated some of dinner tonight. Did not appear nic in any pain. incontinent urine. VSS. On room air. NSR per Ramila. MAPPING TECHNICIAN * Diane Mejia MD - 02/19/2021 2:45 PM CST [facility] Adult Progress Note Admit Date: 02/13/2021 Date of Note: 02/19/2021, 2:45 PM LOS: 6 days Previous history of present illness and review of systems have been reviewed today as documented inthe H&P on 02/13/2021; medications, labs, studies, notes, orders and consults have been reviewed.I have reviewed the notes from yesterday. PLAN: Active Problems: 1. covid pneumonia, initial hypoxemia of 88% on RA, on 2L/min now on RA. cont IV decadron dc Remdesivir 2. Hypertension. Adjust clonidine and propranolol as needed. 3. Acute hypoxemic resp failure. Resolved. Currently on RA 4. Seizure disorder. 5. Autism disorder 6. Leukopenia, likely from covid. Monitoring. On vimpat, zonegran, lamictal, onfi, which are home meds. Quality/Safety/Core Measures/Disposition Planning: Diet DIET GENERAL Effective Now PT/OT:no DVT Prophylaxis - Enoxaparin Chavez catheter:absent Current Code Status -NO CPR (In Event of Cardiopulmonary Arrest) Plan discussed with patient, questions answered. Dispo: PT/OT eval. home in 1-2 days. SUBJECTIVE: Pt is seen and examined this morning. Currently on RA. Travis is not in acute distress. Not eating much. Lethargic. Discussed with nurse -- we would allow family visit with food and toys. OBJECTIVE: Intake/Output Summary (Last 24 hours) at 02/19/2021 1445 Last data filed at 02/19/2021 0638 Gross per 24 hour Intake 50 ml Output 0 ml Net 50 ml Incontinent large amount stool (02/18/21 3816) Physical Exam: BP 103/71 (BP Location: Right arm, Patient Position (BP): Supine) Pulse 85 Temp 98 ??F (36.7 ??C) (Axillary) Resp 18 Ht 5' 7 (1.702 m) Wt 74.4 kg (164 lb) SpO2 95% BMI 25.69 kg/m?? Temp (24hrs), Av.3 ??F (36.8 ??C), Min:97.7 ??F (36.5 ??C), Max:98.6 ??F (37 ??C) General Lethargic. Say simple words. Lungs Mild insp crackles john. Heart regular rate and rhythm Abdomen soft, non-tender. Bowel sounds normal. Extremities Neuro extremities normal, atraumatic, no cyanosis or edema Skin: no rash Move all ext. limited communicating. Data: I have reviewed all new labs and studies resulted and pertinent ones are noted below Diane Mejia MD [facility] Adult Hospitalist If you need assistance from 0700 to 1900: Secure Chat me for non-urgent matters If you need assistance from 1900 to 0700: Contact the ospitalist provider through the [employer] in the drop down menu (preferred) Total time spent: 35 minutes are spent today in care of this patient which includes but not limitedto face to face patient care, review of medical history and labs imaging etc, discussing with the family members, discussing with consultants and multidisciplinary rounds. More than 50% time spent in counseling and coordination of care. 02/19/2021, 2:45 PM MAPPING TECHNICIAN * Shirley Hill GN - 02/19/2021 7:07 AM CST Unable to assess pt's A&O status, nonverbal. Seizure precautions maintained. VSS. No cough noted. Incontinent of bowel and bladder this shift. Turned per flowsheets. Took meds whole in pudding. Pt did not seem to be in distress or in pain. Easily consoled with toys at bedside. Rested peacefullythis shift. Bed alarm on. MAPPING TECHNICIAN * Diane eMjia MD - 02/18/2021 3:36 PM CST [facility] Adult Progress Note Admit Date: 02/13/2021 Date of Note: 02/18/2021, 3:36 PM LOS: 5 days Previous history of present illness and review of systems have been reviewed today as documented inthe H&P on 02/13/2021; medications, labs, studies, notes, orders and consults have been reviewed.I have reviewed the notes from yesterday. PLAN: Active Problems: 1. covid pneumonia, initial hypoxemia of 88% on RA, on 2L/min now on RA. cont IV decadron dc Remdesivir today 2. Hypertension. Adjust clonidine and propranolol as needed. 3. Acute hypoxemic resp failure 4. Seizure disorder. 5. Autism disorder 6. Leukopenia, likely from covid. Monitoring. On vimpat, zonegran, lamictal, onfi, which are home meds. Quality/Safety/Core Measures/Disposition Planning: Diet DIET GENERAL Effective Now PT/OT:no DVT Prophylaxis - Enoxaparin Chavez catheter:absent Current Code Status -NO CPR (In Event of Cardiopulmonary Arrest) Plan discussed with patient, questions answered. Dispo: PT/OT eval. home in 1-2 days. SUBJECTIVE: Pt is seen and examined this morning. Travis is not in acute distress, however he is weak. Sup to sit maxA x2. On RA. OBJECTIVE: No intake or output data in the 24 hours ending 02/18/21 9776 Physical Exam: BP (!) 104/93 (BP Location: Right arm, Patient Position (BP): Lying left side) Pulse 93 Temp 98.8 ??F (37.1 ??C) (Axillary) Resp 18 Ht 5' 7 (1.702 m) Wt 74.4 kg (164 lb) SpO2 95% BMI 25.69 kg/m?? Temp (24hrs), Av.5 ??F (36.9 ??C), Min:98.2 ??F (36.8 ??C), Max:98.8 ??F (37.1 ??C) General Lethargic. Say simple words. Lungs Mild insp crackles john. Heart regular rate and rhythm Abdomen soft, non-tender. Bowel sounds normal. Extremities Neuro extremities normal, atraumatic, no cyanosis or edema Skin: no rash Move all ext. limited communicating. Data: I have reviewed all new labs and studies resulted and pertinent ones are noted below Diane Mejia MD [facility] Adult Hospitalist If you need assistance from 0700 to 1900: Secure Chat me for non-urgent matters If you need assistance from 1900 to 0700: Contact the ospitalist provider through the [facility] [employer] in the drop down menu (preferred) Total time spent: 28 minutes are spent today in care of this patient which includes but not limitedto face to face patient care, review of medical history and labs imaging etc, discussing with the family members, discussing with consultants and multidisciplinary rounds. More than 50% time spent in counseling and coordination of care. 02/18/2021, 3:36 PM MAPPING TECHNICIAN * Diane Mejia MD - 02/17/2021 5:50 PM CST [facility] Adult Progress Note Admit Date: 02/13/2021 Date of Note: 02/17/2021, 5:50 PM LOS: 4 days Previous history of present illness and review of systems have been reviewed today as documented inthe H&P on 02/13/2021; medications, labs, studies, notes, orders and consults have been reviewed.I have reviewed the notes from yesterday. PLAN: Active Problems: 1. covid pneumonia, initial hypoxemia of 88% on RA, on 2L/min now on RA. cont IV decadron dc Remdesivir today 2. Hypertension. Adjust clonidine and propranolol as needed. 3. Acute hypoxemic resp failure 4. Seizure disorder. 5. Autism disorder 6. Leukopenia, likely from covid. Monitoring. On vimpat, zonegran, lamictal, onfi, which are home meds. Quality/Safety/Core Measures/Disposition Planning: Diet DIET GENERAL Effective Now PT/OT:no DVT Prophylaxis - Enoxaparin Chavez catheter:absent Current Code Status -NO CPR (In Event of Cardiopulmonary Arrest) Plan discussed with patient, questions answered. Dispo: PT/OT eval. home in 1-2 days. SUBJECTIVE: Pt is seen and examined this morning. Currently on RA. Travis looks better. Pt /ot eval. Stop remedesivir per mom. Mom wants him to return to [facility] discharge. OBJECTIVE: Intake/Output Summary (Last 24 hours) at 02/17/2021 1750 Last data filed at 02/17/2021 0423 Gross per 24 hour Intake 120 ml Output 350 ml Net -230 ml Physical Exam: BP 107/77 (BP Location: Right arm, Patient Position (BP): Sitting) Pulse 86 Temp98.9 ??F (37.2 ??C) (Axillary) Resp 20 Ht 5' 7 (1.702 m) Wt 74.4 kg (164 lb) SpO2 97% BMI 25.69 kg/m?? Temp (24hrs), Av.4 ??F (36.9 ??C), Min:97.2 ??F (36.2 ??C), Max:98.9 ??F (37.2 ??C) General Lethargic. Say simple words. Lungs Mild insp crackles john. Heart regular rate and rhythm Abdomen soft, non-tender. Bowel sounds normal. Extremities Neuro extremities normal, atraumatic, no cyanosis or edema Skin: no rash Move all ext. limited communicating. Data: I have reviewed all new labs and studies resulted and pertinent ones are noted below MD [facility] Adult Hospitalist If you need assistance from 0700 to 1900: Secure Chat me for non-urgent matters If you need assistance from 1900 to 0700: Contact the vHospitalist provider through the [employer] in the drop down menu (preferred) Total time spent: 30 minutes are spent today in care of this patient which includes but not limitedto face to face patient care, review of medical history and labs imaging etc, discussing with the family members, discussing with consultants and multidisciplinary rounds. More than 50% time spent in counseling and coordination of care. 02/17/2021, 5:50 PM MAPPING TECHNICIAN * Glenna Méndez GN - 02/17/2021 3:59 AM CST Pt nonverbal but alert and arousable by speech. VSS on RA. NSR on monitor. Turned Q2. Meds given with pudding. Incont of urine. CC placed. No BM. Started on bowel protocol. Bed alarm on, wheels locked, seizure and aspiration precautions in place. MAPPING TECHNICIAN * Glenna Méndez GN - 02/17/2021 3:59 AM CST Approved by: [facility] - Medical Executive Committee Approval Date: 06/30/2020 Adult Bowel Routine Protocol- [facility] ORDERS ARE ENTERED ???PER PROTOCOL?? Enter the protocol in the patient???s electronic health record using [employer] .adultbowelroutineprotocol Patient Population: Nurse to initiate for patients utilizing or have anticipated utilization of OPIOIDS 2 or more timesper day and/or patients who have not had a bowel movement within 48 hours, either prior to admission or during current admission. Patient population excluded from protocol (contact provider for bowel routine orders): Patients with bowel obstruction, Post GI surgery or anyone with status of NPO that cannot take medications by mouth. ??? Nurse to hold ordered bowel medications if patient is experiencing loose stools or has more than 2 bowel movements per day. Nursing Orders: ??? Encourage adequate oral hydration as permissible per ordered diet ??? Encourage ambulation as per activity order ??? Encourage gum chewing as patient is able to participate between meals Medication Orders: Note: If at any time patient is experiencing loose stools or has more than 2 bowel movement per day, Nurse to HOLD ordered bowel medications. ??? Upon initiation: o Scheduled bowel therapy o Senna S 2 tablets by mouth daily at bedtime, first dose may be given now. o PRN therapy (Offer PRN therapy, patient to select which they would prefer) o Miralax 17 grams mixed in water/juice/soda by mouth every 12 hours PRN constipation o Dulcolax 1 suppository given rectally every 12 hours PRN constipation o If no bowel movement within 24 hours proceed to step 2. ??? Step 2: o Scheduled bowel therapy (increase scheduled therapy) o Continue Senna S 2 tablets by mouth twice daily. o Add Miralax 17 grams mixed in water/juice/soda by mouth twice daily, first dose may be given now. o PRN therapy (Offer PRN therapy, patient to select which they would prefer) o Dulcolax 1 tablet by mouth every 12 hours PRN unrelieved by scheduled bowel routine o Dulcolax 1 suppository given rectally every 12 hours PRN constipation unrelieved by scheduled bowel routine o If no bowel movement within 24 hours or more on Step 2 medications, proceed to step 3 ??? Step 3: o Scheduled bowel therapy (add to scheduled therapy) o Increase Senna S to 3 tablets by mouth twice daily o Miralax 17 grams mixed with water/juice/soda by mouth twice daily, first dose may be given now. o PRN therapy (Offer PRN therapy, patient to select which they would prefer) o Dulcolax 2 tablets by mouth every 12 hours PRN unrelieved by scheduled bowel routine o Dulcolax 1 suppository given rectally every 12 hours PRN constipation unrelieved by scheduled bowel routine o If no bowel movement within 24 hours or more on Step 3 medications, proceed to Step 4. ??? Step 4: o Administer current scheduled and PRN therapy o Contact provider for further orders. If during nightshift, contact provider during morning rounds. MAPPING TECHNICIAN * Diane Mejia MD - 02/16/2021 1:26 PM CST [facility] Adult Progress Note Admit Date: 02/13/2021 Date of Note: 02/16/2021, 1:26 PM LOS: 3 days Previous history of present illness and review of systems have been reviewed today as documented inthe H&P on 02/13/2021; medications, labs, studies, notes, orders and consults have been reviewed.I have reviewed the notes from yesterday. PLAN: Active Problems: 1. covid pneumonia, initial hypoxemia of 88% on RA, on 2L/min now on RA. cont IV decadron and Remdesivir. 2. Hypertension. Adjust clonidine and propranolol as needed. 3. Acute hypoxemic resp failure 4. Seizure disorder. 5. Autism disorder 6. Leukopenia, likely from covid. Monitoring. On vimpat, zonegran, lamictal, onfi, which are home meds. Quality/Safety/Core Measures/Disposition Planning: Diet DIET GENERAL Effective Now PT/OT:no DVT Prophylaxis - Enoxaparin Chavez catheter:absent Current Code Status -Default Full Code - Needs Discussion Plan discussed with patient, questions answered. Dispo: home in 1-2 days. SUBJECTIVE: Pt is seen and examined this morning. Currently on RA. Poor appetite this morning but otherwise no new complaints. OBJECTIVE: Intake/Output Summary (Last 24 hours) at 02/16/2021 1326 Last data filed at 02/15/2021 1624 Gross per 24 hour Intake 0 ml Output -- Net 0 ml Physical Exam: BP 105/71 (BP Location: Left arm, Patient Position (BP): Supine) Pulse 74 Temp 98 ??F (36.7 ??C) (Axillary) Resp 21 Ht 5' 7 (1.702 m) Wt 74.4 kg (164 lb) SpO2 95% BMI 25.69 kg/m?? Temp (24hrs), Av.4 ??F (36.9 ??C), Min:97.5 ??F (36.4 ??C), Max:100.1 ??F (37.8 ??C) General Lethargic. Say simple words. Lungs Mild insp crackles john. Heart regular rate and rhythm Abdomen soft, non-tender. Bowel sounds normal. Extremities Neuro extremities normal, atraumatic, no cyanosis or edema Skin: no rash Move all ext. limited communicating. Data: I have reviewed all new labs and studies resulted and pertinent ones are noted below MD Tatianna Edwards Adult Hospitalist If you need assistance from 0700 to 1900: Secure Chat me for non-urgent matters If you need assistance from 1900 to 0700: Contact the vHospitalist provider through the [employer] in the drop down menu (preferred) Total time spent: 30 minutes are spent today in care of this patient which includes but not limitedto face to face patient care, review of medical history and labs imaging etc, discussing with the family members, discussing with consultants and multidisciplinary rounds. More than 50% time spent in counseling and coordination of care. 02/16/2021, 1:26 PM MAPPING TECHNICIAN * Diane Mejia MD - 02/15/2021 3:54 PM CST [facility] Adult Progress Note Admit Date: 02/13/2021 Date of Note: 02/15/2021, 3:54 PM LOS: 2 days Previous history of present illness and review of systems have been reviewed today as documented inthe H&P on 02/13/2021; medications, labs, studies, notes, orders and consults have been reviewed.I have reviewed the notes from yesterday. PLAN: Active Problems: 1. covid pneumonia, initial hypoxemia of 88% on RA, on 2L/min now on RA. cont IV decadron and Remdesivir. 2. Hypertension. Adjust clonidine and propranolol as needed. 3. Acute hypoxemic resp failure 4. Seizure disorder. 5. Autism disorder 6. Leukopenia, likely from covid. Monitoring. On vimpat, zonegran, lamictal, onfi, which are home meds. Quality/Safety/Core Measures/Disposition Planning: Diet DIET GENERAL Effective Now PT/OT:no DVT Prophylaxis - Enoxaparin Chavez catheter:absent Current Code Status -Default Full Code - Needs Discussion Plan discussed with patient, questions answered. Dispo: home in 1-2 days. SUBJECTIVE: Pt is seen and examined this morning. O2 sat is improving. Some cough with eating. Speech eval reviewed. Will cont cough meds and regulardiet. I have discussed with mom. Updates given. Code status has updated to NO CPR. OBJECTIVE: Intake/Output Summary (Last 24 hours) at 02/15/2021 1554 Last data filed at 02/15/2021 1252 Gross per 24 hour Intake 480 ml Output -- Net 480 ml Physical Exam: BP 114/73 (BP Location: Left arm, Patient Position (BP): Sitting) Pulse 87 Temp 98 ??F (36.7 ??C) (Axillary) Resp 20 Ht 5' 7 (1.702 m) Wt 74.4 kg (164 lb) SpO2 97% BMI 25.69 kg/m?? Temp (24hrs), Av ??F (36.7 ??C), Min:97.5 ??F (36.4 ??C), Max:98.4 ??F (36.9 ??C) General Lethargic. Nonverbal today Lungs Mild insp crackles john. Heart regular rate and rhythm Abdomen soft, non-tender. Bowel sounds normal. Extremities Neuro extremities normal, atraumatic, no cyanosis or edema Skin: no rash Move all ext. Not communicating. Data: I have reviewed all new labs and studies resulted and pertinent ones are noted below Diane Mejia MD [facility] Adult Hospitalist If you need assistance from 0700 to 1900: Secure Chat me for non-urgent matters If you need assistance from 1900 to 0700: Contact the ospitalist provider through the [facility] Virtual Connector in the drop down menu (preferred) Total time spent: 36 minutes are spent today in care of this patient which includes but not limitedto face to face patient care, review of medical history and labs imaging etc, discussing with the family members, discussing with consultants and multidisciplinary rounds. More than 50% time spent in counseling and coordination of care. 02/15/2021, 3:54 PM MAPPING TECHNICIAN * Ethan Mcdowell MD - 02/14/2021 9:40 AM CST [facility] Adult Progress Note Admit Date: 02/13/2021 Date of Note: 02/14/2021, 9:40 AM LOS: 1 day Previous history of present illness and review of systems have been reviewed today as documented inthe H&P on 02/13/2021; medications, labs, studies, notes, orders and consults have been reviewed.I have reviewed the notes from yesterday. PLAN: Active Problems: 1. covid pneumonia, initial hypoxemia of 88% on RA, on 2L/min overnight, now on RA eating and looksok. On IV decadron and Remdesivir. 2. Acute hypoxemic resp failure 3. Seizure disorder 4. Autism disorder 5. Leukopenia, likely from covid. Monitoring. On vimpat, zonegran, lamictal, onfi, which are home meds. Overall looks pretty good today. If this continues, he could get back to [facility] soon. Quality/Safety/Core Measures/Disposition Planning: Diet DIET GENERAL Effective Now PT/OT:no DVT Prophylaxis - Enoxaparin Chavez catheter:absent Current Code Status -Default Full Code - Needs Discussion Plan discussed with patient, questions answered. Dispo: home in 1-2 days. SUBJECTIVE: Eating right now. Appetite is 'ok', not as good as normal. On RA when I saw him and looked comfortable. History given by caregiver. Has a cough. OBJECTIVE: No intake or output data in the 24 hours ending 02/14/21 0940 Physical Exam: BP 111/70 Pulse 73 Temp 98.2 ??F (36.8 ??C) Resp 18 Ht 5' 7 (1.702 m) Wt 74.4 kg (164 lb) SpO2 95% BMI 25.69 kg/m?? Temp (24hrs), Av.8 ??F (37.1 ??C), Min:98.2 ??F (36.8 ??C), Max:99.3 ??F (37.4 ??C) General alert, cooperative, no distress, appears stated age Lungs Mild insp crackles john. Heart regular rate and rhythm Abdomen soft, non-tender. Bowel sounds normal. Extremities extremities normal, atraumatic, no cyanosis or edema Skin: no rash Neuro: non-focal grossly, not verbal, does not answer questions, but alert, smiling with caregiver. Data: I have reviewed all new labs and studies resulted and pertinent ones are noted below Ethan Mcdowell MD [facility] Adult Hospitalist If you need assistance from 0700 to 1900: Secure Chat me for non-urgent matters If you need assistance from 1900 to 0700: Contact the vHospitalist provider through the [facility] Virtual Connector in the drop down menu (preferred) 02/14/2021, 9:40 AM MAPPING TECHNICIAN documented in this encounter H&P Notes * Frieda Allison MD - 02/13/2021 11:22 PM CST [facility] COVID-19 Inpatient History and Physical Chief Complaint: Cough History of Present Illness: Travis Beebe is a 35 y.o. male who presents with the following symptoms concerning for COVID-19: cough. A COVID-19 PCR test is positive. The patient has had confirmed exposure to a lab-confirmed COVID-19 individual. The patient has hx of seizure disorder and autism who is presenting with above symptoms. Patient isaccompanied by caregiver. Patient [facility] in a [facility]. His roommates tested positive for covid a few days ago however patient was not tested due to family preference. He was having symptoms of cough. OTC cough medications tried by symptoms unimproved and hence brought to ED for evaluation. Patient has not received the covid 19 vaccine. I have reviewed his med list. Past Medical History: Diagnosis Date ??? ADHD (attention deficit hyperactivity disorder) ??? Adjustment reaction with aggression ??? Allergic rhinitis ??? Autism ??? Constipation ??? Developmental delay disorder ??? Emmett-Gastaut syndrome ??? Other general symptoms(780.99) Aggression-Adjustment Disorder ??? Psychiatric disorder anxiety ??? 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 Seizure disorder ??? Static encephalopathy ??? Tremors of nervous system Past Surgical History: Procedure Laterality Date ??? HX WISDOM TEETH EXTRACTION 2009 front teeth ??? [place] DENTAL SURGERY PROCEDURE N/A 10/20/2014 DENTAL REHABILITATION performed by Dereck Dunbar DDS at [facility] ??? [place] DENTAL SURGERY PROCEDURE N/A 12/06/2016 DENTAL REHABILITATION performed by Dereck Dunbar DDS at [facility] OR [facility] ? ? [place] IMP STIM,CRANIAL,SUBQ,>1 ARRAY Left 10/27/2013 VAGUS NERVE STIMULATOR PLACEMENT performed by Hieu Macias MD at [facility] OR (Not in a hospital admission) Allergies Allergen Reactions ??? Amoxicillin Hives ??? Carbamazepine Other (See Comments) tremors ??? Penicillins Hives ??? Phenytoin Sodium Rash and Nausea and Vomiting Social History Socioeconomic History ??? Marital status: Single Spouse name: Not on file ??? Number of children: Not on file ??? Years of education: Not on file ??? Highest education level: Not on file Occupational History Employer: NOT EMPLOYED Tobacco Use ??? Smoking status: Never Smoker ??? Smokeless tobacco: Never Used Substance and Sexual Activity ??? Alcohol use: No ??? Drug use: No ??? Sexual activity: Not on file Other Topics Concern ??? Not on file Social History Narrative ??? Not on file Social Determinants of Health Financial Resource Strain: Not on file Food Insecurity: Not on file Transportation Needs: Not on file Physical Activity: Not on file Stress: Not on file Social Connections: Not on file Intimate Partner Violence: Not on file Family History Problem Relation Name Age of Onset ??? Other Father PSYCHIATRIC ISSUES ??? Other Mother SANDOR LERNER ??? Healthy Sister BILLIE ??? Healthy Brother MERRILL ??? Hypertension Maternal Grandmother ??? High Cholesterol Maternal Grandfather ??? Hypertension Maternal Grandfather ??? Diabetes Maternal Grandfather ??? Cancer Maternal Grandfather PERHAPS KIDNEY OR LIVER ??? Hypertension Paternal Grandmother ??? Diabetes Paternal Grandmother ??? Healthy Sister YOBANY ??? Healthy Brother EDWIGE Review of Systems: Unable to obtain due to patient factors Physical Exam: BP 117/65 Pulse 86 Temp 99.3 ??F (37.4 ??C) (Axillary) Resp 18 Ht 5' 7 (1.702 m) Wt 74.4kg (164 lb) SpO2 95% BMI 25.69 kg/m?? Body mass index is 25.69 kg/m??. Vitals reviewed Constitutional: alert and cooperative HEENT: Head: Normocephalic, no lesions, without obvious abnormality. Respiratory: non-labored Cardiovascular: exam: rate/rhythm: normal Chest: no increased work of breathing GI: exam abdomen soft with no palpable masses Skin: warm and dry Musculoskeletal: no joint tenderness, deformity or swelling Neurological: alert, oriented, normal speech, no focal findings or movement disorder noted Psychological: mood and affect are within normal limits Data Review: COVID-19 PCR Date Value Ref Range Status 02/13/2021 Detected (A) Not Detected Final No results found for: RESPPCRPANEL, RHINOENTVIR Influenza A by PCR Date Value Ref Range Status 02/13/2021 Not Detected Not Detected Final Influenza B by PCR Date Value Ref Range Status 02/13/2021 Not Detected Not Detected Final NOTE: For COVID-19, particular laboratory features have also been associated with worse outcomes. These include: ?? Lymphopenia (Absolute Lymphocytes <1.0 K/??L) ?? Elevated liver enzymes ?? Elevated lactate dehydrogenase (LDH) ?? Elevated inflammatory markers (eg, C-reactive protein [CRP], ferritin) ?? Elevated D-dimer (>1 mcg/mL) ?? Elevated prothrombin time (PT) ?? Elevated troponin ?? Elevated creatine phosphokinase (CPK) ?? Acute kidney injury Reference: UpToDate COVID 19 article Neutrophil to lymphocyte count ratio > 3 = worse prognosis COVID Prognostic Labs: Recent Labs 02/13/212041 LYMPHOCYTE 1.43 LYMPHPERCENT 34 ALT 28 AST 28 CRP 62.7* Common labs: Recent Labs 02/13/212041 WBC 4.2 HGB 12.3* HCT 36.9* PLT 128* NA 146* K 3.8 CL 113* CO2 19* BUN 20 CREAT 0.95 GLUCOSE 89 Results for orders placed or performed during the hospital encounter of 02/13/21 XR CHEST PA OR AP 1 VW Narrative PORTABLE AP VIEW OF THE CHEST DATE: 02/13/2021 10:47 PM HISTORY: Shortness of Breath SOB. COMPARISON: None available FINDINGS: Lung volumes are small. There are perihilar opacities and left retrocardiac airspace opacities. No pneumothorax. No pleural effusion. The cardiac and mediastinal silhouettes are normal. Impression IMPRESSION: Small lung volumes with perihilar and left retrocardiac airspace opacities, concerning for pneumonia. DICTATION LOCATION: Location 1 - [facility] Assessment and Plan: Travis Beebe is a 35 y.o. year old male who presented with a suspected COVID-19 Infection. The patient is noted to have the following risk factors for severe of illness and risk of mortality with COVID-19: none. ??? Associated diagnoses: o Hypoxemia: with acute respiratory failure on 2 LPM via nasal cannula. The patient's room air saturation is 88%.. o Pneumonia: yes - bilateral - viral only - COVID-19 o Other diagnoses: none ??? Continue droplet and contact isolation, patient to wear mask, and batch care per protocol. While on droplet isolation, will try to avoid aerosolizing procedures (high humidity high flow oxygen, BiPAP, CPAP, nebs) if at all possible and will escalate to airborne precautions if aerosolizing procedures are required ??? Judicious use of fluids ??? Will start patient on dexamethasone and remdesivir ??? Check baseline CRP, D Dimer. Check serum procalcitonin and hold abx until resulted ??? Prn anti tussive ordered Hypernatremia: mild. 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 Resume bedtime clonidine Thrombocytopenia ?? DVT Prophylaxis: enoxaparin (Lovenox) ?? DIET GENERAL Effective Now ?? Code status and goals of care will be discussed with the patient and mother, and code status wasupdated in the chart. ?? Code Status: Prior ?? Disposition: home once deemed medically stable which I anticipate will be in >2 days. More than 60 minutes were spent in the care of this patient today; more than half of this time includes counseling and coordination of care. I personally reviewed the patient's clinical labs, vitals, and other diagnostic studies. Frieda Allison MD MAPPING TECHNICIAN documented in this encounter ED Notes * Billie Mac RN - 02/14/2021 11:14 AM CST Patient/family has been informed about benefits and any potential clinically significant side effects or other concerns regarding the administration of the drug they have just been given. MAPPING TECHNICIAN * Billie Mac RN - 02/14/2021 10:29 AM CST Patient/family has been informed about benefits and any potential clinically significant side effects or other concerns regarding the administration of the drug they have just been given. Patient cleaned up. MAPPING TECHNICIAN * Billie Mac RN - 02/14/2021 7:30 AM CST Patient remains in room resting on stretcher. Patient denies any new complaints at this time. Respirations are even and unlabored. Call light within reach. Afebrile at this time. MAPPING TECHNICIAN * Leonor Kaur RN - 02/14/2021 7:02 AM CST Tray request sent to dietary MAPPING TECHNICIAN Leonor Morales RN - 02/14/2021 7:01 AM CST Meds requested from pharmacy per MAR MAPPING TECHNICIAN Leonor Morales RN - 02/14/2021 3:57 AM CST VBG results given to MD Nettles to review. No further orders given. Will continue to monitor pt Leonor Whalen RN - 02/14/2021 3:50 AM CST POC BG 148. Pt resting in bed with side rails up x2. Caregiver at bedside. Call light within reach.VBG obtained and awaiting RT Leonor Whalen RN - 02/14/2021 3:40 AM CST This RN came into room to move pt onto hospital bed for comfort measures. When moving pt onto bed, pt was minimally responsive to the movement. Pt is nonverbal at baseline but concerns relayed to MD Nettles. See orders MAPPING TECHNICIAN * Leonor Kaur RN - 02/14/2021 1:19 AM CST Caregiver at bedside. Pt given apple juice per request. MAPPING TECHNICIAN * Leonor Kaur RN - 02/14/2021 1:04 AM CST Upon entry into room, pt had taken oxygen off and was satting 88% on RA. NC replaced on 2 L and satwent to 90%. Oxygen increased to 3LNC and pt currently 92-93%. Will continue to monitor MAPPING TECHNICIAN * Leonor Kaur RN - 02/13/2021 11:29 PM CST Assumed care of pt at 2315. Will continue to monitor MAPPING TECHNICIAN * Lucy Henriquez RN - 02/13/2021 10:40 PM CST To ED via EMS From residential facility with caregiver reports fever and cough with difficulty ambulating. Caregiver reports + COVID exposure. PMH of autism and seizure, pt is nonverbal at baseline. Respirations unlabored. Equal chest rise and fall of chest. Pt placed on bedside monitor at this time. Caregiver at bedside; updated on POC. MAPPING TECHNICIAN * Bulmaro Hoff MD - 02/13/2021 4:27 PM CSTAssociated Order(s): Critical Care HISTORY OF PRESENT ILLNESS Travis Beebe, a 35 y.o. male presents to the ED with a Chief Complaint of Fever Subjective Pt is a 35 year old male with a hx of autism and seizures who presents for evaluation of fever, cough and chills. He resides in a residential facility with electric melt operator caregivers and they say his symptoms started on the - He is unvaccinated as his mother would not consent for vaccination. He hasbecome more lethargic and care team state that they cannot lift him. He coughs in the room but is nonverbal - he has daily seizures and had one today that's normal for him . 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 He has no past medical history of Malignant hyperthermia, Pseudocholinesterase deficiency, or Unspecified adverse effect of anesthesia. SURGICAL: Patient has a past surgical history that includes wisdom teeth extraction (2008); pr imp stim,cranial,subq,>1 array (Left, 10/27/2013); pr dental surgery procedure (N/A, 10/20/2014); and pr dental surgery procedure (N/A, 12/06/2016). FAMILY: Patient's family history [...] Other Topics Concern ??? Not on file ALLERGIES Amoxicillin, Carbamazepine, Penicillins, and Phenytoin sodium HOME MEDICATIONS Patient's Home Medications Current Home Medications ACETAMINOPHEN (TYLENOL) 325 MG TABLET BISACODYL (DULCOLAX) 5 MG DELAYED RELEASE TABLET BUSPIRONE (BUSPAR) 10 MG ORAL TABLET CARBAMIDE PEROXIDE (DEBROX) 6.5 % OT DROP CLOBAZAM ORAL CLONIDINE HCL (CATAPRES) 0.3 MG TABLET CODEINE-GUAIFENESIN (ROBITUSSIN-AC) 10-100 MG/5 ML LIQUID DEXTROMETHORPHAN-GUAIFENESIN (ROBITUSSIN DM) 10-100 MG/5 ML SOLUTION DIAZEPAM (DIASTAT RECTAL) DOCUSATE SODIUM (COLACE) 100 MG ORAL CAPSULE ERGOCALCIFEROL (VITAMIN D2) 50,000 UNIT CAPSULE GUAIFENESIN (MUCINEX ORAL) LACOSAMIDE (VIMPAT) 100 MG ORAL TABLET LACTOSE-FREE FOOD (ENSURE ORAL) LAMOTRIGINE (LAMICTAL) 150 MG TABLET LORATADINE (CLARITIN) 10 MG ORAL TABLET MAGNESIUM HYDROXIDE (MILK OF MAGNESIA) 400 MG/5 ML SUSPENSION MULTIVITAMIN (DAILY-KALYN) TABLET PHENYLEPHRINE HCL (SUDAFED PE ORAL) PROPRANOLOL SR 24 HOUR (INDERAL LA) 160 MG ORAL CS24 RANITIDINE (ZANTAC) 150 MG TABLET ZONISAMIDE (ZONEGRAN) 100 MG CAPSULE Medications Modified during this Encounter Medications Discontinued during this Encounter BISACODYL (DULCOLAX) 10 MG SUPPOSITORY CLOBAZAM (ONFI) 10 MG TABLET ZONISAMIDE (ZONEGRAN) 100 MG ORAL CAPSULE Objective PHYSICAL EXAM INITIAL VS BP: (!) 150/87 (02/13/211699), Heart Rate: 81 bpm (02/13/211699), Resp: 18 (02/13/211699), Pulse: 81 (02/13/211699), Temp: 99.3 ??F (37.4 ??C) (02/13/211699), Temp src: Axillary (02/13/211699),SpO2: 98 % (02/13/211699), Height: 5' 7 (170.2 cm) (02/13/211699), Weight: 74.4 kg (164 lb) (02/13/211699), BMI (Calculated): 25.68 (02/13/211699) No LMP for male patient. Physical Exam Vitals and nursing note reviewed. Constitutional: General: He is not in acute distress. Appearance: He is ill-appearing. He is not diaphoretic. HENT: Head: Normocephalic and atraumatic. Mouth/Throat: Mouth: Mucous membranes are dry. Pharynx: No oropharyngeal exudate. Eyes: General: No scleral icterus. Right eye: No discharge. Left eye: No discharge. Conjunctiva/sclera: Conjunctivae normal. Pupils: Pupils are equal, round, and reactive to light. Cardiovascular: Rate and Rhythm: Normal rate and regular rhythm. Heart sounds: Normal heart sounds. Pulmonary: Effort: Pulmonary effort is normal. Breath sounds: Rales present. Abdominal: General: Bowel sounds are normal. There is no distension. Palpations: Abdomen is soft. Tenderness: There is no abdominal tenderness. There is no rebound. Musculoskeletal: General: No tenderness. Cervical back: Normal range of motion and neck supple. Comments: At baseline - Skin: General: Skin is warm and dry. Findings: No erythema or rash. Neurological: Mental Status: He is alert. Cranial Nerves: No cranial nerve deficit. Coordination: Coordination normal. Comments: Awake alert - nonverbal - at his baseline per caregiver Psychiatric: Comments: Unable to assess secondary to pt's nonverbal state Appears content with his caregiver DIAGNOSTICS LAB: INFLUENZA A/B AND COVID-19 PCR PANEL - Abnormal Result Value Influenza A by PCR Not Detected Influenza B by PCR Not Detected COVID-19 PCR Detected (*) CBC WITH DIFFERENTIAL - Abnormal WBC 4.2 RBC 3.87 (*) HEMOGLOBIN 12.3 (*) HEMATOCRIT 36.9 (*) MCV 95.3 MCH 31.8 MCHC 33.3 RDW 12.8 RDW-STDEV 44.3 PLATELETS 128 (*) MPV 9.1 (*) NEUTROPHILS 54 LYMPHOCYTES 34 MONOCYTES 12 EOSINOPHILS 0 BASOPHILS 0 IMMATURE GRANULOCYTES 0 NEUTROPHIL ABSOLUTE 2.29 LYMPHOCYTE ABSOLUTE 1.43 MONOCYTE ABSOLUTE 0.50 EOSINOPHIL ABSOLUTE 0.00 BASOPHILS ABSOLUTE 0.01 IMMATURE GRANULOCYTES ABSOLUTE 0.01 COMPREHENSIVE METABOLIC PANEL - Abnormal SODIUM 146 (*) POTASSIUM 3.8 CHLORIDE 113 (*) CO2 19 (*) CALCIUM 8.5 (*) BUN 20 CREATININE 0.95 GLUCOSE 89 TOTAL PROTEIN 7.3 ALBUMIN 3.9 BILIRUBIN TOTAL 0.4 ALKALINE PHOSPHATASE 123 AST 28 ALT 28 GFR >60 GFR, >60 ANION GAP 14 C-REACTIVE PROTEIN - Abnormal CRP 62.7 (*) RSV, PCR DETECTION - Normal RSV by PCR Not Detected INFLUENZA A/B, RSV AND COVID-19 PCR PANEL EXTRA TUBE EXTRA TUBE (RED) RADIOLOGY: XR CHEST PA OR AP 1 VW Radiologist Impression IMPRESSION: Small lung volumes with perihilar and left retrocardiac airspace opacities, concerning for pneumonia. DICTATION LOCATION: Location 1 - [facility] EKG: PROCEDURES Critical Care Performed by: Bulmaro Hoff MD Authorized by: Bulmaro Hoff MD Critical care provider statement: Critical care time (minutes): 40 Critical care was necessary to treat or prevent imminent or life-threatening deterioration of the following conditions: Respiratory failure Critical care was time spent personally by me on the following activities: Ordering and performing treatments and interventions, ordering and review of laboratory studies, ordering and review of radiographic studies, pulse oximetry, re-evaluation of patient's condition, review of old charts, obtaining history from patient or surrogate, examination of patient, evaluation of patient's response to treatment, discussions with consultants and development of treatment plan with patient or surrogate MEDICAL DECISION MAKING AND PLAN OF CARE 11:19 PM discussed with Maia ADAMS for [facility]ist accepts admission under Dr. Allison [facility] Summary Statement: Pt is a 35 year old male with COVID pneumonia - he is hypoxic here (91-93%) - will start Decadron -admit to the hospitalist I have reviewed current: imaging and labs I have reviewed nursing notes related to past medical history, social history, and review of systems and agree, unless otherwise noted. Consults: hospitalist Medications Administered During the ED Stay from 02/13/2021 1628 to 02/14/2021 0104 Date/Time Order Dose Route Action 02/13/2021 2246 dexamethasone (DECADRON) injection 6 mg 6 mg IV Given . 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 See after visit summary for patient education on discharged patients. ED Disposition ED Disposition Condition User Date/Time Comment Admit Serious Bulmaro Hoff MD Mon Feb 13, 2021 10:35 PM ATTESTATION STATEMENTS MAPPING TECHNICIAN documented in this encounter Miscellaneous Notes * Care Plan - Damaris Bull RN - 03/02/2021 1:01 PM CST Pneumonia Pathway - Current (INTERDIS PW: PNEUMONIA PATHWAY ADULT) Hemodynamic: Temp </= 100.4 F, Heart Rate </= 100 beats/minute, Respirations </= 24/minute, Systolic Blood Pressure >/= 90 mmHg for the past 24 hours. Outcome: Met Respiratory: Oxygen Saturation maintained >/= 90% for the past 24 hours on room air -OR- baseline oxygen therapy. Outcome: Met Nutrition: Able to maintain oral intake without an increase in respiratory symptoms -OR- nutrition needs identified and arrangements made for discharge. Outcome: Met Activity: Able to ambulate greater than 50 feet (or participate in baseline activity) -OR- arrangements made for discharge. Outcome: Met Medication Management: Transitioned to oral antibiotics -OR- arrangements for post-discharge IV antibiotics have been made. Outcome: Met Discharge Instructions/Patient Education: Learner verbalizes names of antibiotics and understands importance of completing therapy, follow-up provider appointment, symptoms to report, nutrition/fluidintake and progressive activity. Outcome: Met Day 1 - Current ([facility] Pathway: Adult and Obstetrics) Patient, family, or healthcare designee is participating in individual care plan process Outcome: Met Patient, family, or healthcare designee understands side effects of medications Outcome: Met Pathway Day 1 - Current (INTERDIS PW: SKIN/PRESSURE INJURY PREVENTION) Skin Integrity/Integumentary: Interventions initiated to maintain intact skin. Patient maintains intact skin with Star Score maintained or improved. Outcome: Met Nutrition Management: Patient/health care delegate understands importance of adequate protein and fluid intake. Outcome: Met Bladder & Bowel Movement: Moisture management for incontinence initiated and maintained or patient is continent of urine/stool. Outcome: Met Activity/Rehab: Patient/health care delegate understands repositioning/offloading techniques or patient moves independently. Outcome: Met MAPPING TECHNICIAN * Care Plan - Billie Hart LCSW - 03/02/2021 9:49 AM CST Plan for patient to be fitting with new helmet at 11:30am. VM left with RN at [facility], [facility], to confirm they are able to accept patient back this afternoon. SW awaiting call back. ADDENDUM 1100: FERNANDO spoke with Destini who confirmed they are able to accept patient back today. [facility] staff will be at bedside between 1230 and 1300 to transport patient home. RN aware. Updated DC ordersfaxed to [facility] per request ([phone]). SONI Reddy LCSW Day 1 - Current ([facility] Pathway: Adult and Obstetrics) Patient, family, or healthcare designee is participating in individual care plan process Outcome: Met Problem: Discharge Planning Goal: Identify discharge needs upon admission and through discharge Description: Outcome: Progressing MAPPING TECHNICIAN * Care Plan - Sheila Whitten RN - 03/01/2021 4:43 PM CST Problem: Respiratory Goal: Achieve optimal respiratory function by discharge and/or maintain baseline function Outcome: Progressing Problem: Pain, Potential/Actual Goal: Verbalizes/displays acceptable comfort level or baseline comfort level Description: Outcome: Progressing Problem: Infection Risk/Actual Goal: Infection Risk/Actual: Infection prevention, control, or resolution by discharge Description: Outcome: Progressing Problem: Safety/Fall Goal: Safety/Fall: Absence of fall, injury, harm during hospitalization Description: Outcome: Progressing Problem: Discharge Planning Goal: Identify discharge needs upon admission and through discharge Description: Outcome: Progressing Problem: Mobility Goal: Absence of/Reduce Fall Risk r/t Mobility Deficits Description: Patient is a fall risk because of mobility deficits. A patient with mobility deficits is automatically at high risk for falls. Potential Interventions: 1. Schedule patient toileting to avoid emergency trips to the bathroom 2. If available, use floor mats next to bed or in front of chair when up 3. If applicable, remove floor mats when getting patient up and replace when leaving patient 4. Assistive devices as required, educate patient on correct use of device (walkers, shower chairs,lift equipment, etc.) 5. Exit bed on patient's strongest side 6. Gait belt easily accessible 7. Activate bed or chair alarm while in bed or up in chair 8. Get order for PT consult if appropriate 9. Patient requires 2 assist - bedpan and bed bath if 2 staff not available, bedside commode if 2 staff are available entire time 10. Slow progressive position changes if patient experiencing dizziness Outcome: Progressing Problem: Medications Goal: Absence of/Reduce Fall Risk r/t Medications Description: Patient is a fall risk because of medications (i.e. - BP meds, CV/LAP MACHINE TENDER meds, seizure meds, diuretics, pain meds, psych meds, current chemotherapy). Potential Interventions: 1. Orthostatic VS q day; educate to dangle before rising 2. Educate patient and family on how medications increase patient's fall risk (may make dizzy, lower BP, etc) 3. Do first dose education with all med/dosage changes. Document education 4.Reassess fall risk whenever a medication is changed/added (sleeping pill, pain med, BP med dose adjustment, etc) 5. Activate bed or chair alarm while in bed or up in chair 6. Limit combination of PRN meds whenever possible (i.e. - space out narcs and benzos) 7. Schedule frequent toileting for patients on diuretic to help prevent emergencies 8. Consult pharmacy to review meds and make recommendations (determine best timing, possible dosingadjustments, or identify other education that might be appropriate for patient) 9. Use floor mats next to bed and in front of chair when patient left unattended 10.Do not leave patient unattended while toileting or showering 11.Use appropriate assistive equipment (walker, shower chair, etc) 12. Include information on high risk medications, last doses, and patient tolerance in hand-off communication Outcome: Progressing Problem: Mental Status/LOC/Awareness Goal: Absence of/Reduce Fall Risk r/t Mental Status/LOC/Awareness Description: Patient is a fall risk because of mental status. A patient with altered mental status is automatically at high risk for falls. Potential Interventions: 1.Hourly rounding 2. Do not leave patient unattended while toileting or showering 3. If patient is lethargic/unable to follow directions - use bedpan 4. Place patient close to nurse's station if possible 5. Provide appropriate diversion activities (i.e. - coloring, crosswords, activity blanket, towel folding, books) 6. Activate bed or chair alarm while in bed or up in chair 7. Encourage family to stay with patient 8. Frequent fall reeducation and reorientation 9. Specialty low bed 10. Use floor mats next to bed and in front of chair when patient left unattended 11. Collaborate with care team regarding how to determine reversible causes of mental status changeand eliminate cause 12. Patient sitter 13. Appropriate lighting for day/night Outcome: Progressing Problem: Toileting Needs Goal: Absence of/Reduce Fall Risk r/t Toileting Needs Description: Patient is a fall risk because of toileting needs (i.e. - IV fluids, UTI, diuretics, frequency, diarrhea). Potential Interventions: 1. Schedule toileting at frequent intervals based on patient's needs (i.e. - hourly, every 2 hours) 2. Frequent rounding between toileting 3. Bedside Commode 4. Activate bed or chair alarm while in bed or up in chair 5. Encourage male patients to use urinal 6. Educate patient on fall risk, use of grab bars, and to call for assistance 7. Assess length of IV and/or O2 tubing if applicable 8. Use bedpan or lift equipment if patient also has other fall risk factors (i.e. - mobility) Outcome: Progressing Problem: Communication/Sensory Goal: Absence of/Reduce Fall Risk r/t Communication/Sensory Description: Patient is a fall risk due to sensory or communication issues. Potential Interventions: 1.Use alternative communication devices wherever necessary and when available (i.e. - picture board, note pad and pen, etc) 2. SALES REPRESENTATIVE JEWELRY referral if applicable 3. Provide education in patient's primary language. Obtain dairy inspector and appropriate written materials. If patient refuses dairy inspector services have refusal waiver signed 4. Patients with visual deficits - place belongings and call light within field of vision, maintainsame setup in surroundings, narrate setup and activities to patient, provide necessary visual aids (i.e. Glasses) 5. Patients with hearing deficits - have patient repeat teaching back to ensure understanding 6. Patients with neuropathy - use appropriate assistive devices to aid mobility, and/or use appropriate footwear 7. Slow progressive position changes if patient experiencing dizziness Outcome: Progressing Problem: Behavior Goal: Absence of/Reduce Fall Risk r/t Behavior Description: Potential Interventions: 1. Specialty low bed 2. Use floor mats next to bed and in front of chair when patient left unattended 3. Engage patient in daily routine/activity 4. Provide appropriate diversion activities (i.e. - coloring, crosswords, activity blanket, towel folding, books) 5. Alcohol withdrawal protocol/CIWA assessment as ordered 6. Encourage family to stay with patient 7. Use appropriate de-escalation techniques 8. Consulting pharmacy to review meds and make recommendations (determine best timing, possible dosing adjustments, or identify other education that might be appropriate for patient) 9. Utilize relaxation channel to soothe patient 10. Patient sitter 11. Appropriate lighting for day/night Outcome: Progressing Problem: Gastrointestinal Goal: Achieve optimal [...] no signs/symptoms of aspiration Outcome: Progressing Problem: Cognitive/Perceptual/Neuro Goal: Achieve optimal cognitive/perceptual/neurological function by discharge or maintain baseline function Outcome: Progressing Problem: Peripheral Neurovascular Goal: Achieve optimal peripheral neurovascular function by discharge or maintain baseline function Outcome: Progressing Problem: Physical Mobility, Impaired Goal: Mobility goal: Improve transfer ability by discharge Description: Patient will transfer to/from toilet with modified independent. Outcome: Progressing Problem: Self-Care Deficit Goal: Self care goal: Improve dressing ability by discharge Description: Patient will require modified independence with lower extremity dressing Outcome: Progressing Problem: Physical Mobility, Impaired Goal: Mobility goal: Improve transfer ability by discharge Description: Patient will transfer supine to sit with modified independence. Outcome: Progressing Goal: Mobility goal: Improve ambulation by discharge Description: Patient will ambulate 50 feet on level surface, using none assistive device, with supervision so patient can navigate discharge environment. Outcome: Progressing Problem: Cardiovascular Goal: Achieve optimal cardiovascular function by discharge or maintain baseline function Outcome: Progressing MAPPING TECHNICIAN * Care Plan - Billie Hart LCSW - 03/01/2021 2:47 PM CST FERNANDO has been in contact with leaders from the ED, ed, and [facility] as well as various RNs. Several areas have been searched but patient's helmet has not been located. This issue has been escalated to administration. SW working with administration to obtain new helmet for patient. SONI Reddy LCSW Day 1 - Current ([facility]) Patient, family, or healthcare designee is participating in individual care plan process Outcome: Met Problem: Discharge Planning Goal: Identify discharge needs upon admission and through discharge Description: Outcome: Progressing MAPPING TECHNICIAN * Care Plan - Crystal Yin, Physical Therapist - 03/01/2021 11:22 AM GIS MAPPING TECHNICIAN Problem: Physical Mobility, Impaired Goal: Mobility goal: Improve transfer ability by discharge Description: Patient will transfer supine to sit with modified independence. Outcome: Progressing Goal: Mobility goal: Improve ambulation by discharge Description: Patient will ambulate 50 feet on level surface, using none assistive device, with supervision so patient can navigate discharge environment. Outcome: Progressing Flowsheets (Taken 03/01/2021941) Wed: X Pain Rating: Rest: (pt did not express pain) -- Present Activity: in bed up in room Total Treatment Time (min): 25 PT Current Discharge Recommendation: (anticipate pt return to prior level of assisted care) Other (comment in note) PT Treatment Start Time: 941 PT Treatment Stop Time: 1007 S: Patient agreeable to therapy. RN in room. Pt non verbal but smiling and reaches out for therapist hand. O: Cognition/ Perception: Alert, non verbal, smiling, resistive to mobility at times Weight Bearing: no restriction Skin Integrity: pt found incontinent of urine Precautions: Fall MOBILITY ASSESSMENT Bed Mobility: Supine to long sitting in bed SBA. Pt maintains a sitting up in bed position for increased time as RN and therapist provide clean up due to incontinence. Pt very interactive and reaching frequently for therapist hands. Manual assist to place non skid socks as pt with legs crossed. Sitting up in bed to sit EOB with mod A x2 to facilitate motion. Sits EOB with min Ax2/close SBA x2 forsafety. Sit and scoot toward HOB with mod A x2. Sit to supine with min A x2 to facilitate lowering of trunk and secure LE placement. Max A x2 to scoot up in bed. Transfers: Sit to stand with modA /GREASER HELPER x2- assist to direct motion and facilitate activity. Performed x 7 stand attempts from EOB. Dynamic standing with mod A /GREASER HELPER x2 to steady. Gait: Pt ambulated 3-4 steps x 2 attempts with mod A/GREASER HELPER x2. --Gait deviations: Assist x 2 for safety and to steady. Resistive to further distance and begins tolean posteriorly. Pt seated for safety. Equipment to be issued at discharge: DME: To be determined (02/25/21 0551) Education: functional mobility Other: Pt easily distracted during activity. Positioning after tx: Pt in supported long sit position in bed, RN in room to assist pt with meds/feeding. A: Response to treatment: Progressing towards goals Recommend: Other (comment in note) (anticipate pt return to prior level of assisted care) () Recommendations were made on today's assessment. Additional recommendations will be based on patient's progress in therapy. P: Continue PT 2-5x/wk at bedside for Transfer training, Gait training, Exercises, unless change instatus or patient is discharged from the facility. Plan of Care developed, as indicated by PT assessment and patient's current status. Please refer to plan of care for updates on goals. Zone #: [id number] MAPPING TECHNICIAN * Care Plan - Leonor Cuba, Fine Wire Drawer - 03/01/2021 9:40 AM CST Problem: Self-Care Deficit Goal: Self care goal: Improve dressing ability by discharge Description: Patient will require modified independence with lower extremity dressing Outcome: Progressing Problem: Physical Mobility, Impaired Goal: Mobility goal: Improve transfer ability by discharge Description: Patient will transfer supine to sit with modified independence. Outcome: Progressing Goal: Mobility goal: Improve ambulation by discharge Description: Patient will ambulate 50 feet on level surface, using none assistive device, with supervision so patient can navigate discharge environment. Outcome: Progressing Flowsheets (Taken 03/01/2021 1326) Wed: X Assistive Devices Screening: ??? Transfer pad ??? Gait belt Assistive Devices Used: Gait belt Present Activity: ??? in bed ??? bed mobility ??? up in room Physical Assist/Nonphysical Assist: w/ 2 person assist Total Treatment Time (min): 27 OT Current Discharge Recommendation: ??? Post acute care ??? Will tolerate 3 hours of therapy OT Recommended DME: No new DME recommended OT Treatment Start Time: 09 OT Treatment Stop Time: 1007 Additional Recommended Adaptive Equipment: No new additional adaptive equipment necessary S: Patient agrees to therapy O: Cognition/ Perception: Alert, Non-Verbal Skin Integrity: No Concerns Weight Bearing: No Restrictions Precautions: Fall FUNCTIONAL ACTIVITIES LB Dressing: Max A to tone socks in bed Bed Mobility: Pt is able to complete supine to sit in bed with SBA. Pt sits in bed with legs crossed with supervision. Pt is able to sit EOB with Mod A x 2. Pt requires Close SBA for EOB sitting. Pt scoots to HOB with Mod A x 2. Functional mobility: Pt sit to stand is Mod A x 2 with hand over hand assist x 2 for safety and facilites ambulating. Pt completed x 7 sit to stands from EOB with Mod A. Equipment Recommended at discharge: None at this time Education: OT POC, Safety Awareness, Transfers Positioning after tx: Supine in bed with call light, room phone and bedside table in reach A: Response to treatment: Agreeable; Progressing Recommend: Back to prior facility Recommendations were made on today's assessment. Additional recommendations will be based on patient's progress in therapy. P: Continue 2-5x/wk at bedside for: ADL Training, Functional Mobility Training, UE ROM/Strengthening, Patient Education, Cognition/Perception [facility] Plan of Care developed, as indicated by OT assessment and patient's current status. Please refer to plan of care for updates on goals. Zone #: [id number] MAPPING TECHNICIAN * Care Plan - Nael Acuna RN - 03/01/2021 4:47 AM CST [facility] - Current ([facility]DIS PW: SKIN/PRESSURE INJURY PREVENTION) Skin Integrity/Integumentary: Interventions initiated to maintain intact skin. Patient maintains intact skin with Star Score maintained or improved. Outcome: Met Nutrition Management: Patient/health care delegate understands importance of adequate protein and fluid intake. Outcome: Met Bladder & Bowel Movement: Moisture management for incontinence initiated and maintained or patient is continent of urine/stool. Outcome: Met Activity/Rehab: Patient/health care delegate understands repositioning/offloading techniques or patient moves independently. Outcome: Met Problem: Respiratory Goal: Achieve optimal respiratory function by discharge and/or maintain baseline function Outcome: Progressing Problem: Pain, Potential/Actual Goal: Verbalizes/displays acceptable comfort level or baseline comfort level Description: Outcome: Progressing Problem: Infection Risk/Actual Goal: Infection Risk/Actual: Infection prevention, control, or resolution by discharge Description: Outcome: Progressing Problem: Safety/Fall Goal: Safety/Fall: Absence of fall, injury, harm during hospitalization Description: Outcome: Progressing Problem: Discharge Planning Goal: Identify discharge needs upon admission and through discharge Description: Outcome: Progressing Problem: Mobility Goal: Absence of/Reduce Fall Risk r/t Mobility Deficits Description: Patient is a fall risk because of mobility deficits. A patient with mobility deficits is automatically at high risk for falls. Potential Interventions: 1. Schedule patient toileting to avoid emergency trips to the bathroom 2. If available, use floor mats next to bed or in front of chair when up 3. If applicable, remove floor mats when getting patient up and replace when leaving patient 4. Assistive devices as required, educate patient on correct use of device (walkers, shower chairs,lift equipment, etc.) 5. Exit bed on patient's strongest side 6. Gait belt easily accessible 7. Activate bed or chair alarm while in bed or up in chair 8. Get order for PT consult if appropriate 9. Patient requires 2 assist - bedpan and bed bath if 2 staff not available, bedside commode if 2 staff are available entire time 10. Slow progressive position changes if patient experiencing dizziness Outcome: Progressing Problem: Medications Goal: Absence of/Reduce Fall Risk r/t Medications Description: Patient is a fall risk because of medications (i.e. - BP meds, CV/LAP MACHINE TENDER meds, seizure meds, diuretics, pain meds, psych meds, current chemotherapy). Potential Interventions: 1. Orthostatic VS q day; educate to dangle before rising 2. Educate patient and family on how medications increase patient's fall risk (may make dizzy, lower BP, etc) 3. Do first dose education with all med/dosage changes. Document education 4.Reassess fall risk whenever a medication is changed/added (sleeping pill, pain med, BP med dose adjustment, etc) 5. Activate bed or chair alarm while in bed or up in chair 6. Limit combination of PRN meds whenever possible (i.e. - space out narcs and benzos) 7. Schedule frequent toileting for patients on diuretic to help prevent emergencies 8. Consult pharmacy to review meds and make recommendations (determine best timing, possible dosingadjustments, or identify other education that might be appropriate for patient) 9. Use floor mats next to bed and in front of chair when patient left unattended 10.Do not leave patient unattended while toileting or showering 11.Use appropriate assistive equipment (walker, shower chair, etc) 12. Include information on high risk medications, last doses, and patient tolerance in hand-off communication Outcome: Progressing Problem: Mental Status/LOC/Awareness Goal: Absence of/Reduce Fall Risk r/t Mental Status/LOC/Awareness Description: Patient is a fall risk because of mental status. A patient with altered mental status is automatically at high risk for falls. Potential Interventions: 1.Hourly rounding 2. Do not leave patient unattended while toileting or showering 3. If patient is lethargic/unable to follow directions - use bedpan 4. Place patient close to nurse's station if possible 5. Provide appropriate diversion activities (i.e. - coloring, crosswords, activity blanket, towel folding, books) 6. Activate bed or chair alarm while in bed or up in chair 7. Encourage family to stay with patient 8. Frequent fall reeducation and reorientation 9. Specialty low bed 10. Use floor mats next to bed and in front of chair when patient left unattended 11. Collaborate with care team regarding how to determine reversible causes of mental status changeand eliminate cause 12. Patient sitter 13. Appropriate lighting for day/night Outcome: Progressing Problem: Toileting Needs Goal: Absence of/Reduce Fall Risk r/t Toileting Needs Description: Patient is a fall risk because of toileting needs (i.e. - IV fluids, UTI, diuretics, frequency, diarrhea). Potential Interventions: 1. Schedule toileting at frequent intervals based on patient's needs (i.e. - hourly, every 2 hours) 2. Frequent rounding between toileting 3. Bedside Commode 4. Activate bed or chair alarm while in bed or up in chair 5. Encourage male patients to use urinal 6. Educate patient on fall risk, use of grab bars, and to call for assistance 7. Assess length of IV and/or O2 tubing if applicable 8. Use bedpan or lift equipment if patient also has other fall risk factors (i.e. - mobility) Outcome: Progressing Problem: Communication/Sensory Goal: Absence of/Reduce Fall Risk r/t Communication/Sensory Description: Patient is a fall risk due to sensory or communication issues. Potential Interventions: 1.Use alternative communication devices wherever necessary and when available (i.e. - picture board, note pad and pen, etc) 2. SALES REPRESENTATIVE JEWELRY referral if applicable 3. Provide education in patient's primary language. Obtain dairy inspector and appropriate written materials. If patient refuses dairy inspector services have refusal waiver signed 4. Patients with visual deficits - place belongings and call light within field of vision, maintainsame setup in surroundings, narrate setup and activities to patient, provide necessary visual aids (i.e. Glasses) 5. Patients with hearing deficits - have patient repeat teaching back to ensure understanding 6. Patients with neuropathy - use appropriate assistive devices to aid mobility, and/or use appropriate footwear 7. Slow progressive position changes if patient experiencing dizziness Outcome: Progressing Problem: Behavior Goal: Absence of/Reduce Fall Risk r/t Behavior Description: Potential Interventions: 1. Specialty low bed 2. Use floor mats next to bed and in front of chair when patient left unattended 3. Engage patient in daily routine/activity 4. Provide appropriate diversion activities (i.e. - coloring, crosswords, activity blanket, towel folding, books) 5. Alcohol withdrawal protocol/CIWA assessment as ordered 6. Encourage family to stay with patient 7. Use appropriate de-escalation techniques 8. Consulting pharmacy to review meds and make recommendations (determine best timing, possible dosing adjustments, or identify other education that might be appropriate for patient) 9. Utilize relaxation channel to soothe patient 10. Patient sitter 11. Appropriate lighting for day/night Outcome: Progressing Problem: Gastrointestinal Goal: Achieve optimal [...] no signs/symptoms of aspiration Outcome: Progressing Problem: Cognitive/Perceptual/Neuro Goal: Achieve optimal cognitive/perceptual/neurological function by discharge or maintain baseline function Outcome: Progressing Problem: Peripheral Neurovascular Goal: Achieve optimal peripheral neurovascular function by discharge or maintain baseline function Outcome: Progressing Problem: Physical Mobility, Impaired Goal: Mobility goal: Improve transfer ability by discharge Description: Patient will transfer to/from toilet with modified independent. Outcome: Progressing Problem: Self-Care Deficit Goal: Self care goal: Improve dressing ability by discharge Description: Patient will require modified independence with lower extremity dressing Outcome: Progressing Problem: Physical Mobility, Impaired Goal: Mobility goal: Improve transfer ability by discharge Description: Patient will transfer supine to sit with modified independence. Outcome: Progressing Goal: Mobility goal: Improve ambulation by discharge Description: Patient will ambulate 50 feet on level surface, using none assistive device, with supervision so patient can navigate discharge environment. Outcome: Progressing Problem: Cardiovascular Goal: Achieve optimal cardiovascular function by discharge or maintain baseline function Outcome: Progressing Today this pt has had a complete bath and has had one incontinent occurrence this shift he has beenbladder scanned and the result was 220. He otherwise has tolerated his meals and medications well and awaits for the next plan MAPPING TECHNICIAN * Care Plan - Sheila Whitten RN - 02/28/2021 7:50 PM CST Patient is : A&Ox ISMAEL Behaviors: Calm Cardio: WDL Activity: x2 assist Resp: WDL Pain Range/Score during the shift: No distress Medication that have helped or need to be changed: All meds working at this time Diet Tolerated : Regular diet, feeder Void or Bowel Movement: No BM on shift Skin Concerns : None Discharge: TBD, needs to find his helmet to go home Pt has remained free of falls this shift. Pt is stable and resting comfortably. Will continue to monitor PT. Problem: Respiratory Goal: Achieve optimal respiratory function by discharge and/or maintain baseline function Outcome: Progressing Problem: Pain, Potential/Actual Goal: Verbalizes/displays acceptable comfort level or baseline comfort level Description: Outcome: Progressing Problem: Infection Risk/Actual Goal: Infection Risk/Actual: Infection prevention, control, or resolution by discharge Description: Outcome: Progressing Problem: Safety/Fall Goal: Safety/Fall: Absence of fall, injury, harm during hospitalization Description: Outcome: Progressing Problem: Discharge Planning Goal: Identify discharge needs upon admission and through discharge Description: Outcome: Progressing Problem: Mobility Goal: Absence of/Reduce Fall Risk r/t Mobility Deficits Description: Patient is a fall risk because of mobility deficits. A patient with mobility deficits is automatically at high risk for falls. Potential Interventions: 1. Schedule patient toileting to avoid emergency trips to the bathroom 2. If available, use floor mats next to bed or in front of chair when up 3. If applicable, remove floor mats when getting patient up and replace when leaving patient 4. Assistive devices as required, educate patient on correct use of device (walkers, shower chairs,lift equipment, etc.) 5. Exit bed on patient's strongest side 6. Gait belt easily accessible 7. Activate bed or chair alarm while in bed or up in chair 8. Get order for PT consult if appropriate 9. Patient requires 2 assist - bedpan and bed bath if 2 staff not available, bedside commode if 2 staff are available entire time 10. Slow progressive position changes if patient experiencing dizziness Outcome: Progressing Problem: Medications Goal: Absence of/Reduce Fall Risk r/t Medications Description: Patient is a fall risk because of medications (i.e. - BP meds, CV/LAP MACHINE TENDER meds, seizure meds, diuretics, pain meds, psych meds, current chemotherapy). Potential Interventions: 1. Orthostatic VS q day; educate to dangle before rising 2. Educate patient and family on how medications increase patient's fall risk (may make dizzy, lower BP, etc) 3. Do first dose education with all med/dosage changes. Document education 4.Reassess fall risk whenever a medication is changed/added (sleeping pill, pain med, BP med dose adjustment, etc) 5. Activate bed or chair alarm while in bed or up in chair 6. Limit combination of PRN meds whenever possible (i.e. - space out narcs and benzos) 7. Schedule frequent toileting for patients on diuretic to help prevent emergencies 8. Consult pharmacy to review meds and make recommendations (determine best timing, possible dosingadjustments, or identify other education that might be appropriate for patient) 9. Use floor mats next to bed and in front of chair when patient left unattended 10.Do not leave patient unattended while toileting or showering 11.Use appropriate assistive equipment (walker, shower chair, etc) 12. Include information on high risk medications, last doses, and patient tolerance in hand-off communication Outcome: Progressing Problem: Mental Status/LOC/Awareness Goal: Absence of/Reduce Fall Risk r/t Mental Status/LOC/Awareness Description: Patient is a fall risk because of mental status. A patient with altered mental status is automatically at high risk for falls. Potential Interventions: 1.Hourly rounding 2. Do not leave patient unattended while toileting or showering 3. If patient is lethargic/unable to follow directions - use bedpan 4. Place patient close to nurse's station if possible 5. Provide appropriate diversion activities (i.e. - coloring, crosswords, activity blanket, towel folding, books) 6. Activate bed or chair alarm while in bed or up in chair 7. Encourage family to stay with patient 8. Frequent fall reeducation and reorientation 9. Specialty low bed 10. Use floor mats next to bed and in front of chair when patient left unattended 11. Collaborate with care team regarding how to determine reversible causes of mental status changeand eliminate cause 12. Patient sitter 13. Appropriate lighting for day/night Outcome: Progressing Problem: Toileting Needs Goal: Absence of/Reduce Fall Risk r/t Toileting Needs Description: Patient is a fall risk because of toileting needs (i.e. - IV fluids, UTI, diuretics, frequency, diarrhea). Potential Interventions: 1. Schedule toileting at frequent intervals based on patient's needs (i.e. - hourly, every 2 hours) 2. Frequent rounding between toileting 3. Bedside Commode 4. Activate bed or chair alarm while in bed or up in chair 5. Encourage male patients to use urinal 6. Educate patient on fall risk, use of grab bars, and to call for assistance 7. Assess length of IV and/or O2 tubing if applicable 8. Use bedpan or lift equipment if patient also has other fall risk factors (i.e. - mobility) Outcome: Progressing Problem: Communication/Sensory Goal: Absence of/Reduce Fall Risk r/t Communication/Sensory Description: Patient is a fall risk due to sensory or communication issues. Potential Interventions: 1.Use alternative communication devices wherever necessary and when available (i.e. - picture board, note pad and pen, etc) 2. SALES REPRESENTATIVE JEWELRY referral if applicable 3. Provide education in patient's primary language. Obtain dairy inspector and appropriate written materials. If patient refuses dairy inspector services have refusal waiver signed 4. Patients with visual deficits - place belongings and call light within field of vision, maintainsame setup in surroundings, narrate setup and activities to patient, provide necessary visual aids (i.e. Glasses) 5. Patients with hearing deficits - have patient repeat teaching back to ensure understanding 6. Patients with neuropathy - use appropriate assistive devices to aid mobility, and/or use appropriate footwear 7. Slow progressive position changes if patient experiencing dizziness Outcome: Progressing Problem: Behavior Goal: Absence of/Reduce Fall Risk r/t Behavior Description: Potential Interventions: 1. Specialty low bed 2. Use floor mats next to bed and in front of chair when patient left unattended 3. Engage patient in daily routine/activity 4. Provide appropriate diversion activities (i.e. - coloring, crosswords, activity blanket, towel folding, books) 5. Alcohol withdrawal protocol/CIWA assessment as ordered 6. Encourage family to stay with patient 7. Use appropriate de-escalation techniques 8. Consulting pharmacy to review meds and make recommendations (determine best timing, possible dosing adjustments, or identify other education that might be appropriate for patient) 9. Utilize relaxation channel to soothe patient 10. Patient sitter 11. Appropriate lighting for day/night Outcome: Progressing Problem: Gastrointestinal Goal: Achieve optimal [...] no signs/symptoms of aspiration Outcome: Progressing Problem: Cognitive/Perceptual/Neuro Goal: Achieve optimal cognitive/perceptual/neurological function by discharge or maintain baseline function Outcome: Progressing Problem: Peripheral Neurovascular Goal: Achieve optimal peripheral neurovascular function by discharge or maintain baseline function Outcome: Progressing Problem: Physical Mobility, Impaired Goal: Mobility goal: Improve transfer ability by discharge Description: Patient will transfer to/from toilet with modified independent. Outcome: Progressing Problem: Self-Care Deficit Goal: Self care goal: Improve dressing ability by discharge Description: Patient will require modified independence with lower extremity dressing Outcome: Progressing Problem: Physical Mobility, Impaired Goal: Mobility goal: Improve transfer ability by discharge Description: Patient will transfer supine to sit with modified independence. Outcome: Progressing Goal: Mobility goal: Improve ambulation by discharge Description: Patient will ambulate 50 feet on level surface, using none assistive device, with supervision so patient can navigate discharge environment. Outcome: Progressing Problem: Cardiovascular Goal: Achieve optimal cardiovascular function by discharge or maintain baseline function Outcome: Progressing MAPPING TECHNICIAN * Care Plan - Billie Hart LCSW - 02/28/2021 11:21 AM CST FERNANDO aware patient medically stable for DC. FERNANDO spoke with MAURO Santiago at patient's [facility]. Per Pamela, onsite visit was completed. Pamela agreeable to patient returning. However, patient presented to ED with helmet. Per Pamela, patient cannot return unless helmet is located. Per nursing notes, patient arrived [facility] without it. Security has been contacted- they do not have it. ed has been contacted and will look for it. FERNANDO spoke with mom, she does not have the helmet. Issue has been escalated to management. Per Pamela, patients Flight Line Mechanic, Gayatri, was contacted to inquire about obtaining a new helmet for patient. Per Gayatri, it can take several weeks to obtain. Patient CANNOT dc until helmet is located or a new one is obtained. DC order is in place. DC summary faxed to Pamela per request. SONI Reddy, MASTER TAX ADVISOR Day 1 - Current ([facility]) Patient, family, or healthcare designee is participating in individual care plan process Outcome: Met Problem: Discharge Planning Goal: Identify discharge needs upon admission and through discharge Description: Outcome: Progressing MAPPING TECHNICIAN * Therapy Treatment - Shaye Sales, Occupational Therapist - 02/28/2021 10:37 AM CST Patient not seen for OT secondary to eating breakfast. Will continue to follow patient and will re-attempt as time permits. Thank you. Zone #: [id number] MAPPING TECHNICIAN * Care Plan - Nael Acuna RN - 02/28/2021 5:50 AM CST [facility] - Current ([facility] PW: SKIN/PRESSURE INJURY PREVENTION) Skin Integrity/Integumentary: Interventions initiated to maintain intact skin. Patient maintains intact skin with Star Score maintained or improved. Outcome: Met Nutrition Management: Patient/health care delegate understands importance of adequate protein and fluid intake. Outcome: Met Bladder & Bowel Movement: Moisture management for incontinence initiated and maintained or patient is continent of urine/stool. Outcome: Met Activity/Rehab: Patient/health care delegate understands repositioning/offloading techniques or patient moves independently. Outcome: Met Problem: Respiratory Goal: Achieve optimal respiratory function by discharge and/or maintain baseline function Outcome: Progressing Problem: Pain, Potential/Actual Goal: Verbalizes/displays acceptable comfort level or baseline comfort level Description: Outcome: Progressing Problem: Infection Risk/Actual Goal: Infection Risk/Actual: Infection prevention, control, or resolution by discharge Description: Outcome: Progressing Problem: Safety/Fall Goal: Safety/Fall: Absence of fall, injury, harm during hospitalization Description: Outcome: Progressing Problem: Discharge Planning Goal: Identify discharge needs upon admission and through discharge Description: Outcome: Progressing Problem: Mobility Goal: Absence of/Reduce Fall Risk r/t Mobility Deficits Description: Patient is a fall risk because of mobility deficits. A patient with mobility deficits is automatically at high risk for falls. Potential Interventions: 1. Schedule patient toileting to avoid emergency trips to the bathroom 2. If available, use floor mats next to bed or in front of chair when up 3. If applicable, remove floor mats when getting patient up and replace when leaving patient 4. Assistive devices as required, educate patient on correct use of device (walkers, shower chairs,lift equipment, etc.) 5. Exit bed on patient's strongest side 6. Gait belt easily accessible 7. Activate bed or chair alarm while in bed or up in chair 8. Get order for PT consult if appropriate 9. Patient requires 2 assist - bedpan and bed bath if 2 staff not available, bedside commode if 2 staff are available entire time 10. Slow progressive position changes if patient experiencing dizziness Outcome: Progressing Problem: Medications Goal: Absence of/Reduce Fall Risk r/t Medications Description: Patient is a fall risk because of medications (i.e. - BP meds, CV/LAP MACHINE TENDER meds, seizure meds, diuretics, pain meds, psych meds, current chemotherapy). Potential Interventions: 1. Orthostatic VS q day; educate to dangle before rising 2. Educate patient and family on how medications increase patient's fall risk (may make dizzy, lower BP, etc) 3. Do first dose education with all med/dosage changes. Document education 4.Reassess fall risk whenever a medication is changed/added (sleeping pill, pain med, BP med dose adjustment, etc) 5. Activate bed or chair alarm while in bed or up in chair 6. Limit combination of PRN meds whenever possible (i.e. - space out narcs and benzos) 7. Schedule frequent toileting for patients on diuretic to help prevent emergencies 8. Consult pharmacy to review meds and make recommendations (determine best timing, possible dosingadjustments, or identify other education that might be appropriate for patient) 9. Use floor mats next to bed and in front of chair when patient left unattended 10.Do not leave patient unattended while toileting or showering 11.Use appropriate assistive equipment (walker, shower chair, etc) 12. Include information on high risk medications, last doses, and patient tolerance in hand-off communication Outcome: Progressing Problem: Mental Status/LOC/Awareness Goal: Absence of/Reduce Fall Risk r/t Mental Status/LOC/Awareness Description: Patient is a fall risk because of mental status. A patient with altered mental status is automatically at high risk for falls. Potential Interventions: 1.Hourly rounding 2. Do not leave patient unattended while toileting or showering 3. If patient is lethargic/unable to follow directions - use bedpan 4. Place patient close to nurse's station if possible 5. Provide appropriate diversion activities (i.e. - coloring, crosswords, activity blanket, towel folding, books) 6. Activate bed or chair alarm while in bed or up in chair 7. Encourage family to stay with patient 8. Frequent fall reeducation and reorientation 9. Specialty low bed 10. Use floor mats next to bed and in front of chair when patient left unattended 11. Collaborate with care team regarding how to determine reversible causes of mental status changeand eliminate cause 12. Patient sitter 13. Appropriate lighting for day/night Outcome: Progressing Problem: Toileting Needs Goal: Absence of/Reduce Fall Risk r/t Toileting Needs Description: Patient is a fall risk because of toileting needs (i.e. - IV fluids, UTI, diuretics, frequency, diarrhea). Potential Interventions: 1. Schedule toileting at frequent intervals based on patient's needs (i.e. - hourly, every 2 hours) 2. Frequent rounding between toileting 3. Bedside Commode 4. Activate bed or chair alarm while in bed or up in chair 5. Encourage male patients to use urinal 6. Educate patient on fall risk, use of grab bars, and to call for assistance 7. Assess length of IV and/or O2 tubing if applicable 8. Use bedpan or lift equipment if patient also has other fall risk factors (i.e. - mobility) Outcome: Progressing Problem: Communication/Sensory Goal: Absence of/Reduce Fall Risk r/t Communication/Sensory Description: Patient is a fall risk due to sensory or communication issues. Potential Interventions: 1.Use alternative communication devices wherever necessary and when available (i.e. - picture board, note pad and pen, etc) 2. SALES REPRESENTATIVE JEWELRY referral if applicable 3. Provide education in patient's primary language. Obtain dairy inspector and appropriate written materials. If patient refuses dairy inspector services have refusal waiver signed 4. Patients with visual deficits - place belongings and call light within field of vision, maintainsame setup in surroundings, narrate setup and activities to patient, provide necessary visual aids (i.e. Glasses) 5. Patients with hearing deficits - have patient repeat teaching back to ensure understanding 6. Patients with neuropathy - use appropriate assistive devices to aid mobility, and/or use appropriate footwear 7. Slow progressive position changes if patient experiencing dizziness Outcome: Progressing Problem: Behavior Goal: Absence of/Reduce Fall Risk r/t Behavior Description: Potential Interventions: 1. Specialty low bed 2. Use floor mats next to bed and in front of chair when patient left unattended 3. Engage patient in daily routine/activity 4. Provide appropriate diversion activities (i.e. - coloring, crosswords, activity blanket, towel folding, books) 5. Alcohol withdrawal protocol/CIWA assessment as ordered 6. Encourage family to stay with patient 7. Use appropriate de-escalation techniques 8. Consulting pharmacy to review meds and make recommendations (determine best timing, possible dosing adjustments, or identify other education that might be appropriate for patient) 9. Utilize relaxation channel to soothe patient 10. Patient sitter 11. Appropriate lighting for day/night Outcome: Progressing Problem: Gastrointestinal Goal: Achieve optimal [...] no signs/symptoms of aspiration Outcome: Progressing Problem: Cognitive/Perceptual/Neuro Goal: Achieve optimal cognitive/perceptual/neurological function by discharge or maintain baseline function Outcome: Progressing Problem: Peripheral Neurovascular Goal: Achieve optimal peripheral neurovascular function by discharge or maintain baseline function Outcome: Progressing Problem: Physical Mobility, Impaired Goal: Mobility goal: Improve transfer ability by discharge Description: Patient will transfer to/from toilet with modified independent. Outcome: Progressing Problem: Self-Care Deficit Goal: Self care goal: Improve dressing ability by discharge Description: Patient will require modified independence with lower extremity dressing Outcome: Progressing Problem: Physical Mobility, Impaired Goal: Mobility goal: Improve transfer ability by discharge Description: Patient will transfer supine to sit with modified independence. Outcome: Progressing Goal: Mobility goal: Improve ambulation by discharge Description: Patient will ambulate 50 feet on level surface, using none assistive device, with supervision so patient can navigate discharge environment. Outcome: Progressing Problem: Cardiovascular Goal: Achieve optimal cardiovascular function by discharge or maintain baseline function Outcome: Progressing Today this pt has been in his bed getting turned every two hours. He tolerated taking his medications and no seizure activity this shift. He has been otherwise very friendly when staff walks into theroom and he has had one BM this shift and had to be straight cathed. Otherwise he patiently awaits the next plan. MAPPING TECHNICIAN * Care Plan - Sheila Whitten RN - 02/27/2021 6:42 PM CST Problem: Respiratory Goal: Achieve optimal respiratory function by discharge and/or maintain baseline function Outcome: Progressing Problem: Pain, Potential/Actual Goal: Verbalizes/displays acceptable comfort level or baseline comfort level Description: Outcome: Progressing Problem: Infection Risk/Actual Goal: Infection Risk/Actual: Infection prevention, control, or resolution by discharge Description: Outcome: Progressing Problem: Safety/Fall Goal: Safety/Fall: Absence of fall, injury, harm during hospitalization Description: Outcome: Progressing Problem: Discharge Planning Goal: Identify discharge needs upon admission and through discharge Description: Outcome: Progressing Problem: Mobility Goal: Absence of/Reduce Fall Risk r/t Mobility Deficits Description: Patient is a fall risk because of mobility deficits. A patient with mobility deficits is automatically at high risk for falls. Potential Interventions: 1. Schedule patient toileting to avoid emergency trips to the bathroom 2. If available, use floor mats next to bed or in front of chair when up 3. If applicable, remove floor mats when getting patient up and replace when leaving patient 4. Assistive devices as required, educate patient on correct use of device (walkers, shower chairs,lift equipment, etc.) 5. Exit bed on patient's strongest side 6. Gait belt easily accessible 7. Activate bed or chair alarm while in bed or up in chair 8. Get order for PT consult if appropriate 9. Patient requires 2 assist - bedpan and bed bath if 2 staff not available, bedside commode if 2 staff are available entire time 10. Slow progressive position changes if patient experiencing dizziness Outcome: Progressing Problem: Medications Goal: Absence of/Reduce Fall Risk r/t Medications Description: Patient is a fall risk because of medications (i.e. - BP meds, CV/LAP MACHINE TENDER meds, seizure meds, diuretics, pain meds, psych meds, current chemotherapy). Potential Interventions: 1. Orthostatic VS q day; educate to dangle before rising 2. Educate patient and family on how medications increase patient's fall risk (may make dizzy, lower BP, etc) 3. Do first dose education with all med/dosage changes. Document education 4.Reassess fall risk whenever a medication is changed/added (sleeping pill, pain med, BP med dose adjustment, etc) 5. Activate bed or chair alarm while in bed or up in chair 6. Limit combination of PRN meds whenever possible (i.e. - space out narcs and benzos) 7. Schedule frequent toileting for patients on diuretic to help prevent emergencies 8. Consult pharmacy to review meds and make recommendations (determine best timing, possible dosingadjustments, or identify other education that might be appropriate for patient) 9. Use floor mats next to bed and in front of chair when patient left unattended 10.Do not leave patient unattended while toileting or showering 11.Use appropriate assistive equipment (walker, shower chair, etc) 12. Include information on high risk medications, last doses, and patient tolerance in hand-off communication Outcome: Progressing Problem: Mental Status/LOC/Awareness Goal: Absence of/Reduce Fall Risk r/t Mental Status/LOC/Awareness Description: Patient is a fall risk because of mental status. A patient with altered mental status is automatically at high risk for falls. Potential Interventions: 1.Hourly rounding 2. Do not leave patient unattended while toileting or showering 3. If patient is lethargic/unable to follow directions - use bedpan 4. Place patient close to nurse's station if possible 5. Provide appropriate diversion activities (i.e. - coloring, crosswords, activity blanket, towel folding, books) 6. Activate bed or chair alarm while in bed or up in chair 7. Encourage family to stay with patient 8. Frequent fall reeducation and reorientation 9. Specialty low bed 10. Use floor mats next to bed and in front of chair when patient left unattended 11. Collaborate with care team regarding how to determine reversible causes of mental status changeand eliminate cause 12. Patient sitter 13. Appropriate lighting for day/night Outcome: Progressing Problem: Toileting Needs Goal: Absence of/Reduce Fall Risk r/t Toileting Needs Description: Patient is a fall risk because of toileting needs (i.e. - IV fluids, UTI, diuretics, frequency, diarrhea). Potential Interventions: 1. Schedule toileting at frequent intervals based on patient's needs (i.e. - hourly, every 2 hours) 2. Frequent rounding between toileting 3. Bedside Commode 4. Activate bed or chair alarm while in bed or up in chair 5. Encourage male patients to use urinal 6. Educate patient on fall risk, use of grab bars, and to call for assistance 7. Assess length of IV and/or O2 tubing if applicable 8. Use bedpan or lift equipment if patient also has other fall risk factors (i.e. - mobility) Outcome: Progressing Problem: Communication/Sensory Goal: Absence of/Reduce Fall Risk r/t Communication/Sensory Description: Patient is a fall risk due to sensory or communication issues. Potential Interventions: 1.Use alternative communication devices wherever necessary and when available (i.e. - picture board, note pad and pen, etc) 2. SALES REPRESENTATIVE JEWELRY referral if applicable 3. Provide education in patient's primary language. Obtain dairy inspector and appropriate written materials. If patient refuses dairy inspector services have refusal waiver signed 4. Patients with visual deficits - place belongings and call light within field of vision, maintainsame setup in surroundings, narrate setup and activities to patient, provide necessary visual aids (i.e. Glasses) 5. Patients with hearing deficits - have patient repeat teaching back to ensure understanding 6. Patients with neuropathy - use appropriate assistive devices to aid mobility, and/or use appropriate footwear 7. Slow progressive position changes if patient experiencing dizziness Outcome: Progressing Problem: Behavior Goal: Absence of/Reduce Fall Risk r/t Behavior Description: Potential Interventions: 1. Specialty low bed 2. Use floor mats next to bed and in front of chair when patient left unattended 3. Engage patient in daily routine/activity 4. Provide appropriate diversion activities (i.e. - coloring, crosswords, activity blanket, towel folding, books) 5. Alcohol withdrawal protocol/CIWA assessment as ordered 6. Encourage family to stay with patient 7. Use appropriate de-escalation techniques 8. Consulting pharmacy to review meds and make recommendations (determine best timing, possible dosing adjustments, or identify other education that might be appropriate for patient) 9. Utilize relaxation channel to soothe patient 10. Patient sitter 11. Appropriate lighting for day/night Outcome: Progressing Problem: Gastrointestinal Goal: Achieve optimal [...] no signs/symptoms of aspiration Outcome: Progressing Problem: Cognitive/Perceptual/Neuro Goal: Achieve optimal cognitive/perceptual/neurological function by discharge or maintain baseline function Outcome: Progressing Problem: Peripheral Neurovascular Goal: Achieve optimal peripheral neurovascular function by discharge or maintain baseline function Outcome: Progressing Problem: Physical Mobility, Impaired Goal: Mobility goal: Improve transfer ability by discharge Description: Patient will transfer to/from toilet with modified independent. Outcome: Progressing Problem: Self-Care Deficit Goal: Self care goal: Improve dressing ability by discharge Description: Patient will require modified independence with lower extremity dressing Outcome: Progressing Problem: Physical Mobility, Impaired Goal: Mobility goal: Improve transfer ability by discharge Description: Patient will transfer supine to sit with modified independence. Outcome: Progressing Goal: Mobility goal: Improve ambulation by discharge Description: Patient will ambulate 50 feet on level surface, using none assistive device, with supervision so patient can navigate discharge environment. Outcome: Progressing Problem: Cardiovascular Goal: Achieve optimal cardiovascular function by discharge or maintain baseline function Outcome: Progressing MAPPING TECHNICIAN * Care Plan - Constance Reddy, Occupational Therapist - 02/27/2021 11:34 AM CST Problem: Self-Care Deficit Goal: Self care goal: Improve dressing ability by discharge Description: Patient will require modified independence with lower extremity dressing Outcome: Progressing Problem: Physical Mobility, Impaired Goal: Mobility goal: Improve transfer ability by discharge Description: Patient will transfer supine to sit with modified independence. Outcome: Progressing Goal: Mobility goal: Improve ambulation by discharge Description: Patient will ambulate 50 feet on level surface, using none assistive device, with supervision so patient can navigate discharge environment. Outcome: Progressing Flowsheets (Taken 02/27/2021 1058) Total Treatment Time (min): 30 OT Treatment Start Time: 1058 OT Treatment Stop Time: 1128 S: Patient sitting up in bed, okay for therapy per RN. Pt is nonverbal, pt participates in bed level activity, resistive to OOB mobility. O: Cognition/ Perception: Alert, nonverbal, makes eye contact at times throughout session, follows commands with tactile cues, resistive to some commands Skin Integrity: visible skin intact Weight Bearing: no restrictions Precautions: Fall; FUNCTIONAL ACTIVITIES Grooming: Max A for pericare in stance at bed LE Dressing: Max A to don B socks Toilet Transfer: declined Functional mobility: Supine > sit EOB Max A with increased time to encourage self-initiation andexplanation of importance of standing and desire to manage toileting/incontinence, resistive to most movement. Sit EOB SBA ~ 10 minutes while encouraging standing and tossing a ball. Sit <> stand Max A with full frontal support, very resistive to this and sits back down quickly. Sit > supine Min A and boosts self in bed Min A. Equipment Recommended at discharge: defer to next level of care Education: OT plan of care, importance of activity and hygeine care Positioning after tx: Pt supine in bed with alarm intact. All needs within reach. RN call light placed within reach and RN aware. A: Response to treatment: Progressing in goals Recommend: Post Acute Facility- will tolerate 3 hours of therapy/day, Home with home health, Home with supervision Recommendations were made on today's assessment. Additional recommendations will be based on patient's progress in therapy. P: Continue 2-5x/wk at bedside for: ADL Training, Functional Mobility Training, UE ROM/Strengthening, Patient Education, Cognition/Perception unless change in status [facility] Plan of Care developed, as indicated by OT assessment and patient's current status. Please refer to plan of care for updates on goals. Zone #: [id number] MAPPING TECHNICIAN * Care Plan - Yumiko Guardado RN - 02/26/2021 4:49 PM CST Problem: Respiratory Goal: Achieve optimal respiratory function by discharge and/or maintain baseline function Outcome: Progressing Problem: Pain, Potential/Actual Goal: Verbalizes/displays acceptable comfort level or baseline comfort level Description: Outcome: Progressing Problem: Infection Risk/Actual Goal: Infection Risk/Actual: Infection prevention, control, or resolution by discharge Description: Outcome: Progressing Problem: Safety/Fall Goal: Safety/Fall: Absence of fall, injury, harm during hospitalization Description: Outcome: Progressing Problem: Discharge Planning Goal: Identify discharge needs upon admission and through discharge Description: Outcome: Progressing MAPPING TECHNICIAN * Care Plan - Billie Polk Occupational Therapist - 02/26/2021 11:52 AM GIS MAPPING TECHNICIAN Problem: Self-Care Deficit Goal: Self care goal: Improve dressing ability by discharge Description: Patient will require modified independence with lower extremity dressing Outcome: Progressing Problem: Physical Mobility, Impaired Goal: Mobility goal: Improve transfer ability by discharge Description: Patient will transfer supine to sit with modified independence. Outcome: Progressing Goal: Mobility goal: Improve ambulation by discharge Description: Patient will ambulate 50 feet on level surface, using none assistive device, with supervision so patient can navigate discharge environment. Outcome: Progressing S: Patient agrees to therapy. Pt denies pain. Pt semi-supine in bed. Caregiver, Mayela, in room for caregiver training. Per Mayela pt requires assist at baseline for ADLs and IADLs. Mayela states at pt baseline he ambulateshousehold distances with gait belt and assistance for 1 person. Mayela states that pt requires assistfor dressing and grooming tasks at baseline. Mayela states that pt typically stands in the shower while staff assists in bathing him. OT discussed with pt the benefits of a shower chair with back for increased safety in the shower. Mayela states they have a shower chair with back if needed at his home.Mayela states that he requires assist for toilet transfers and nakita-care at baseline as well. Since pt's helmet is not present, Mayela okay with pt ambulating short distances with 2 people present (Mayela and this OT) and having a chair nearby for safety. Pt also returned to bed at end of sessioninstead of sitting up in chair due to no helmet. --Per PT note yesterday 02/26 PT notified RN, AMARI, about pt's helmet missing. PT and PCT placed calls to pt's previous floors this admission to try to find helmet and unable to locate. Mayela stated at end of session pt is very close to baseline and she feels comfortable with him returning home to his previous living arrangements with 03/09 supervision/assistance for all mobility and ADLs. O: Cognition/ Perception: Alert and follows commands with min-mod verbal and tactile cues to sequence and attend to tasks as well as for safety awareness. Skin Integrity: No obvious signs for skin breakdown noted. Weight Bearing: no restrictions charted Precautions: Fall; FUNCTIONAL ACTIVITIES Caregiver assisted OT with all ADLs and mobility this date during session for caregiver training/education components Grooming: Pt max A to wash face semi-supine in bed UE Dressing: Pt max A to adjust/close gown in back in stance LE Dressing: Pt dependent to don B socks semi-supine in bed Toilet Transfer: Pt simulated toilet transfers sit <> stand coming from EOB to stance mod A. Functional mobility: Pt supine <> sit EOB mod-max A. Pt sat EOB ~2 min close SBA. Pt sit <> stand coming from EOB to stance mod A + GREASER HELPER. Pt ambulated in hallway ~60ft modAx1 +min Ax1 withB GREASER HELPER during first walk. Pt ambulated a second time in hallway ~60ft with mod Ax1 with L GREASER HELPER + SBA of OT for safety. Pt required max verbal and tactile cues to navigate physical environment. Equipment Recommended at discharge: no new DME recommended at this time Education: ADLs, functional mobility, transfers, safety awareness, caregiver training, DME needs Positioning after tx: Pt left lying supine in bed. Bed alarm on. Call light and phone within reach.All lines intact. RN aware. A: Response to treatment: Pt tolerated treatment well Recommend: Post-Acute Facility, Post Acute Facility- will tolerate 3 hours of therapy/day vs. return to fci with previous level of care and 03/09 supervision --This OT discussed d/c planning with Mayela. At this time Mayela feels as if pt is very close to baseline and feels he is ready to return to his fci. OT discussed accommodations of pt using w/cfor mobility (especially for long distances), pt donning depends from seated position instead of standing, using a shower chair instead of standing in shower - caregiver very receptive to education and ideas. --If fci cannot provide assist of 1 person for all transfers and gait of short distances, recommend post acute (will tolerate 3 hours/day). Recommendations were made on today's assessment. Additional recommendations will be based on patient's progress in therapy. P: Continue 2-5x/wk at bedside for: ADL Training, Functional Mobility Training, UE ROM/Strengthening, Patient Education, Cognition/Perception unless change in status [facility] Plan of Care developed, as indicated by OT assessment and patient's current status. Please refer to plan of care for updates on goals. Zone #: [id number] MAPPING TECHNICIAN * Care Plan - Rosa Isela Ramirez, RN - 02/26/2021 6:35 AM CST Problem: Safety/Fall Goal: Safety/Fall: Absence of fall, injury, harm during hospitalization Description: Outcome: Progressing Problem: Mental Status/LOC/Awareness Goal: Absence of/Reduce Fall Risk r/t Mental Status/LOC/Awareness Description: Patient is a fall risk because of mental status. A patient with altered mental status is automatically at high risk for falls. Potential Interventions: 1.Hourly rounding 2. Do not leave patient unattended while toileting or showering 3. If patient is lethargic/unable to follow directions - use bedpan 4. Place patient close to nurse's station if possible 5. Provide appropriate diversion activities (i.e. - coloring, crosswords, activity blanket, towel folding, books) 6. Activate bed or chair alarm while in bed or up in chair 7. Encourage family to stay with patient 8. Frequent fall reeducation and reorientation 9. Specialty low bed 10. Use floor mats next to bed and in front of chair when patient left unattended 11. Collaborate with care team regarding how to determine reversible causes of mental status changeand eliminate cause 12. Patient sitter 13. Appropriate lighting for day/night Outcome: Progressing MAPPING TECHNICIAN * Care Plan - Tayler Jung, Physical Therapist - 02/25/2021 3:11 PM GIS MAPPING TECHNICIAN Problem: Physical Mobility, Impaired Goal: Mobility goal: Improve transfer ability by discharge Description: Patient will transfer supine to sit with modified independence. Outcome: Progressing Goal: Mobility goal: Improve ambulation by discharge Description: Patient will ambulate 50 feet on level surface, using none assistive device, with supervision so patient can navigate discharge environment. Outcome: Progressing Flowsheets Taken 02/25/2021 1556 Present Activity: ??? ambulated ??? up in room ??? up in alcocer ??? chair ??? in bed Taken 02/25/2021 1511 Sat: X S: Patient agreeable to therapy. Per RN, pt appropriate for PT. Mayela, the qa manager of pt's fci and one of pt's caregivers was present for session. Mayela states that at baseline, pt wears a gait belt and a helmet for all OOB mobility (helmet for seizures), however helmet not in pt's room today or yesterday when this PT worked with pt. Mayela statesthat pt ambulated without assist at baseline and walked pretty fast, but a caregiver was always with him. Mayela states that pt can stand to take a shower and stands to change his depends. Mayela states that pt can ambulate household distances including from his room out to the car. Mayela would like to be present for therapy session tomorrow and states she will be here in the morning between 9am-12pm - this PT will leave a note for PT or OT to see pt during that time to work on ADLs and mobility with pt. Mayela's main concerns are sit <> stand transfers and donning/doffing depends. Since pt's helmet is not present, Mayela okay with pt ambulating short distances with 2 people present (Mayela and this PT) and having a chair nearby for safety. Pt also returned to bed at end of sessioninstead of sitting up in chair due to no helmet. RN, CM, MD all notified about pt's helmet missing.PT and PCT placed calls to pt's previous floors this admission to try to find helmet and unable to locate. O: Cognition/ Perception: Alert, cooperative and pleasant, nonverbal, motivated by toys in room Weight Bearing: no restrictions Precautions: Fall Skin Integrity: no new issues noted on skin visualized MOBILITY ASSESSMENT Bed Mobility: supine <> sit modA mostly for initiation Sitting balance: pt sat EOB 5 minutes SBA while playing catch with football Transfers: Sit <> stand x2 reps modA no device GREASER HELPER - PT educated caregiver to stand on side of pt to assist with gait belt and not GREASER HELPER (caregiver used to standing in front of pt and assisting him up with holding each other hands) Gait: 60 feet + 30 feet no device Juwan/modAx1 progressing to Juwan/modAx2 with fatigue Education provided for caregiver to stand at pt's side and hold both gait belt and one of pt's hands (caregiver used to standing in front of pt and holding both his hands) --Gait deviations: decreased step length, increased lateral sway, unsteadiness, encouragement needed and motivation of toys needed at times, most difficulty noted with turning around to sit when almost back at chair/bed, pt tolerates well - HR 113 and SpO2 97% after ambulation Equipment to be issued at discharge: To be determined (02/25/211510) Education: PT plan of care, d/c planning, gait, caregiver training on sit <> stand and gait Other: Pt tolerated session well. Pt happy and smiling throughout. Pt enjoyed kissing this PT's hand and giving lots of high-fives. Positioning after tx: Pt left sitting up in bed with bed alarm on, call light in reach, caregiver in room, all needs met, RN aware. A: Response to treatment: Progressing towards goals Recommend: Other (comment in note);Will tolerate 3 hours of therapy;Post acute care (02/25/211510) This PT discussed d/c planning with Mayela. Mayela is unsure if pt's fci will be able to providethe level of assist that the pt currently needs. PT discussed accommodations of pt using w/c for mobility (especially for long distances), pt donning depends from seated position instead of standing,using a shower chair instead of standing in shower - caregiver very receptive to education and ideas. At baseline, pt ambulates with SBA, stands with 1 person assist to don depends, and stands in shower without assist. If fci cannot provide assist of 1 person for all transfers and gait of short distances, recommend post acute (will tolerate 3 hours/day). Recommendations were made on today's assessment. Additional recommendations will be based on patient's progress in therapy. P: Continue PT 2-5x/wk at bedside , at bedside for Transfer training, Gait training, Exercises, Balance training, unless change in status or patient is discharged from the facility. Plan of Care developed, as indicated by PT assessment and patient's current status. Please refer to plan of care for updates on goals. Zone #: [id number] On weekends--please call [phone] MAPPING TECHNICIAN * Care Plan - Rosa Isela Ramirez, RN - 02/25/2021 6:09 AM CST Pathway Day 1 - Current (INTERDIS PW: SKIN/PRESSURE INJURY PREVENTION) Skin Integrity/Integumentary: Interventions initiated to maintain intact skin. Patient maintains intact skin with Star Score maintained or improved. Outcome: Met Pathway Day 1 - Current (INTERDIS PW: SKIN/PRESSURE INJURY PREVENTION) Bladder & Bowel Movement: Moisture management for incontinence initiated and maintained or patient is continent of urine/stool. Outcome: Met Problem: Respiratory Goal: Achieve optimal respiratory function by discharge and/or maintain baseline function Outcome: Progressing Problem: Mobility Goal: Absence of/Reduce Fall Risk r/t Mobility Deficits Description: Patient is a fall risk because of mobility deficits. A patient with mobility deficits is automatically at high risk for falls. Potential Interventions: 1. Schedule patient toileting to avoid emergency trips to the bathroom 2. If available, use floor mats next to bed or in front of chair when up 3. If applicable, remove floor mats when getting patient up and replace when leaving patient 4. Assistive devices as required, educate patient on correct use of device (walkers, shower chairs,lift equipment, etc.) 5. Exit bed on patient's strongest side 6. Gait belt easily accessible 7. Activate bed or chair alarm while in bed or up in chair 8. Get order for PT consult if appropriate 9. Patient requires 2 assist - bedpan and bed bath if 2 staff not available, bedside commode if 2 staff are available entire time 10. Slow progressive position changes if patient experiencing dizziness Outcome: Progressing Problem: Behavior Goal: Absence of/Reduce Fall Risk r/t Behavior Description: Potential Interventions: 1. Specialty low bed 2. Use floor mats next to bed and in front of chair when patient left unattended 3. Engage patient in daily routine/activity 4. Provide appropriate diversion activities (i.e. - coloring, crosswords, activity blanket, towel folding, books) 5. Alcohol withdrawal protocol/CIWA assessment as ordered 6. Encourage family to stay with patient 7. Use appropriate de-escalation techniques 8. Consulting pharmacy to review meds and make recommendations (determine best timing, possible dosing adjustments, or identify other education that might be appropriate for patient) 9. Utilize relaxation channel to soothe patient 10. Patient sitter 11. Appropriate lighting for day/night Outcome: Progressing MAPPING TECHNICIAN * Therapy Treatment - Cesilia Enins Occupational Therapist - 02/24/2021 6:02 PM CST OT tx attempted, however, pt in process of transferring to another floor. OT will continue to follow. MAPPING TECHNICIAN * Care Plan - Tayler Jung Physical Therapist - 02/24/2021 1:57 PM GIS MAPPING TECHNICIAN Problem: Physical Mobility, Impaired Goal: Mobility goal: Improve transfer ability by discharge Description: Patient will transfer supine to sit with modified independence. Outcome: Progressing Goal: Mobility goal: Improve ambulation by discharge Description: Patient will ambulate 50 feet on level surface, using none assistive device, with supervision so patient can navigate discharge environment. Outcome: Progressing Flowsheets Taken 02/24/2021 1427 Present Activity: ??? ambulated ??? up in room ??? in bed Taken 02/24/2021 1357 Fri: X S: Patient agreeable to therapy. Per RN, pt appropriate for PT. PCT present in room throughout. Pt does not appear to be in pain. Pt smiling and laughing and playful throughout session. Pt motivated by toys in room (rattle, football). O: Cognition/ Perception: Alert, cooperative and pleasant Weight Bearing: no restrictions Precautions: Fall Skin Integrity: no new issues noted on skin visualized MOBILITY ASSESSMENT Bed Mobility: supine <> sit modA Boost up in bed maxAx2 Sitting balance: pt sat EOB 6 minutes with Juwan quickly progressing to SBA - PT and pt and PCT played catch with football while pt seated EOB Transfers: sit <> stand x3 reps no device GREASER HELPER- first rep modAx2, second rep modAx1, third repminAx1 - pt improves with each rep Gait: 10 feet + 15 feet no device Juwan-modA GREASER HELPER, PCT in room holding toys in front of pt to motivate pt to ambulate, pt laughing and very motivated to steal his toys back --Gait deviations: some unsteadiness and shakiness but no loss of balance, good activity tolerance,decreased step length Equipment to be issued at discharge: No new DME recommended;To be determined (02/24/211356) Education: PT plan of care Other: Pt tolerated session well. Pt giving PT multiple high-fives at end of session. Positioning after tx: Pt left sitting up in bed, bed alarm on, call light in reach, all needs met, toys in reach, RN aware. A: Response to treatment: Progressing towards goals Recommend: Other (comment in note) (02/24/211356) - return to fci if facility able to provide assist of 1 person for all mobility vs post acute (able to tolerate 3 hours/day) Recommendations were made on today's assessment. Additional recommendations will be based on patient's progress in therapy. P: Continue PT 2-5x/wk at bedside , at bedside for Transfer training, Gait training, Exercises, Balance training, unless change in status or patient is discharged from the facility. Plan of Care developed, as indicated by PT assessment and patient's current status. Please refer to plan of care for updates on goals. Zone #: [id number] On weekends--please call [phone] MAPPING TECHNICIAN * Care Plan - Sujatha Novak RN - 02/24/2021 11:08 AM CST Discharge planning continues. Patient discussed in TEMPO and chart reviewed. CM spoke with his fci nurse for a status update. She was concerned because the staff had not been able to come out to work with Travis. She thinks he tends to get by with doing things because out staff is new to him. AMARI has made the team aware he will not be abler to return to the home need assist of 2. CM asked if doctor could contact the mother and fci nurse to discuss progress and plan. Patient is no longer on isolation and can be moved to a unit where he can receive visitors. Then the [facility] homemanager could come out to assess him. CM to follow. 2:30 PM CM contacted Destini his nurse at [facility] to let her know the progress in therapy noted today. Therapy will work with him over the weekend. Destini said staff will come Saturday or Saturday if he is moved to a different unit to assess him. Destini is planning for his discharge on Saturday if medically stable. His community will provide transportation and Destini said discharge notes should be faxed to [phone]. Sujatha CALVILLO RN CRRN Office: [phone] [email or web address] Problem: Discharge Planning Goal: Identify discharge needs upon admission and through discharge Description: Outcome: Progressing Problem: Discharge Planning Goal: Identify discharge needs upon admission and through discharge Description: Outcome: Progressing MAPPING TECHNICIAN * Care Plan - Silke Trevizo RN - 02/23/2021 6:58 PM CST Travis has no complaints or signs of pain. Unable to get A&O status due to being non verbal. Slept majority of shift. Bladder scanned pt w/ 490 residual. Pt unable to cooperate to stand up to BSCand urinate. Straight cath pt with 700 output and 0 residual. Orders placed to straight cath q8 hrs. No BM this shift. Tolerated lunch and dinner well. Resting between care. Pt off isolation and waiting for bed placement. MAPPING TECHNICIAN * Care Plan - Silke Trevizo RN - 02/22/2021 5:41 PM CST RN unable to assess Albaro's A&O status due to being nonverbal. Pt had no complaints or signs of pain. Pt in good mood today and tolerated meals well. Talked w/ pt's mom and she said pt normallywalks around well at facility and PT/OT notified. Pt sitting in bed most of shift. RN and tech had to lay pt down to stretch out his legs. VSS. Incontinent urine and 1 large BM. MAPPING TECHNICIAN * Care Plan - Charanjit Payne SLP - 02/22/2021 11:12 AM CST Problem: Therapy: Dysphagia/Swallow Goal: Tolerates least restrictive diet utilizing swallowing precautions/strategies with no signs/symptoms of aspiration Outcome: Progressing Flowsheets (Taken 02/22/2021 1112) Therapy Start Time: 1100 Therapy Stop Time: 1110 Total Therapy Minutes: 10 Pain Rating: Rest: 0 SALES REPRESENTATIVE JEWELRY Swallow follow-up S: Pt awake, alert, upright in bed. O: Respiratory Status: Oxygen Therapy O2 Device: room air (02/22/21 9930) Oxygen Therapy Flow (L/min): 3 (02/14/21 3117) Consent: Consent for dysphagia treatment given by Patient Po Trials: Po trials performed with water only as Pt declined trials of puree and hue cracker, pushing bolus away when presented. Pt with adequate oral prep and control of liquids via straw. Pharyngeal swallow response was prompt. Laryngeal elevation was fair to palpation. Pharyngeal swallow wasgenerally crisp to cervical auscultation. No gross overt s/s of aspiration. Patient Education: The Pt was educated on the impressions, recommendations, and aspiration precautions. Pt verbalized understanding, requires reinforcement. RN notified of recommendations A: This represents no change in swallow function. Pt tolerating current diet per observation and reports. No recent reported difficulties. Continue aspiration precautions. SALES REPRESENTATIVE JEWELRY will follow. P: Current diet: General diet Aspiration Precautions: Aspiration precautions as follows: - sit at 90 degree angle (chin to neck angle- not HOB) - alternate liquids and solids - small, single sips - slow rate - pills whole in puree - 100% supervision Further Recommendations: SALES REPRESENTATIVE JEWELRY to follow for diet and aspiration precautions management, dysphagia exercises, and Pt and family training as indicated. SALES REPRESENTATIVE JEWELRY to continue to follow during this admission. If DC from facility were to occur before next treatment, please continue SALES REPRESENTATIVE JEWELRY services at next level of care if Pt remains therapeutic. Willie Payne M.A., [facility]SALES REPRESENTATIVE JEWELRY Speech Language Pathology [facility] *On weekends call [phone] MAPPING TECHNICIAN * Care Plan - Billie Fowler Occupational Therapist - 02/22/2021 9:35 AM GIS MAPPING TECHNICIAN Problem: Physical Mobility, Impaired Goal: Mobility goal: Improve transfer ability by discharge Description: Patient will transfer to/from toilet with modified independent. Outcome: Progressing Problem: Self-Care Deficit Goal: Self care goal: Improve dressing ability by discharge Description: Patient will require modified independence with lower extremity dressing Outcome: Progressing S: Patient agrees to therapy O: Cognition/ Perception: Pt is alert and cooperative. Limited command following, however motivatedby various toys in room. Able to interact with therapists appropriately. Nonverbal. Skin Integrity: No obvious signs of skin breakdown noted. Weight Bearing: No restrictions Precautions: Fall; COVID FUNCTIONAL ACTIVITIES Grooming: Max A to wash face seated EOB- encouraged to initiate task with verbal/tactile cues, however does not initiate UE Dressing: Max A to adjust/tie gown seated EOB LE Dressing: Max A to don socks Functional mobility: Min A x2 supine<>sit EOB- heavy verbal/tactile cues for task initiation.Pt sat EOB ~10 minutes with close SBA for sitting balance- shaky/tremulous throughout. While seated EOB, pt able to toss ball back and forth with decreased accuracy and decreased bilateral coordination. Pt smiling and laughing throughout- appears content. Equipment Recommended at discharge: To be determined Education: self care, ADLs, functional mobility Positioning after tx: Pt left lying supine in bed, bed alarm on, call light and phone within reach,all lines intact. RN aware. A: Response to treatment: Patient tolerated treatment well this date. Progressing towards goals. Recommend: Post-Acute Facility Recommendations were made on today's assessment. Additional recommendations will be based on patient's progress in therapy. P: Continue 2-5x/wk at bedside for: ADL Training, Functional Mobility Training, UE ROM/Strengthening, Patient Education, Cognition/Perception unless change in status or patient is discharged [facility]. Plan of Care developed, as indicated by OT assessment and patient's current status. Please refer to plan of care for updates on goals. Zone #: [id number] MAPPING TECHNICIAN * Care Plan - Simeon Fong, Picking Supervisor - 02/22/2021 9:08 AM CST Problem: Physical Mobility, Impaired Goal: Mobility goal: Improve transfer ability by discharge Description: Patient will transfer supine to sit with modified independence. Outcome: Progressing Flowsheets Taken 02/22/2021 0908 by Simeon Fong, Picking Supervisor Pain Management Interventions: unnecessary movement avoided relaxation positioning Response to Interventions: content/relaxed resting quietly Present Activity: bed mobility dangled at bedside Physical Assist/Nonphysical Assist: w/ 2 person assist PT Current Discharge Recommendation: Post acute care PT Recommended DME: To be determined Taken 02/18/2021 1427 by Ángela Salazar Physical Therapist Therapy Plan of Care: 2-5x/week Therapy Eval Date: 02/18/21 Therapy Comments: 02/18:nonverbal, cotx S: Patient agreeable to therapy. Pt was sitting up in bed with the PCT in the room upon arrival. Ptis on room air. Co-treat with OT O: Cognition/ Perception: Alert and oriented, non verbal Weight Bearing: No restrictions Skin Integrity: Visible skin intact Precautions: Fall, covid+ MOBILITY ASSESSMENT Bed Mobility: Pt required min to mod assist x 2 for supine <> sit with assist needed to scoothis hips forward on the EOB. The pt required max assist x 2 for boosting up in bed. The pt demonstrated good static sitting balance for ~10 minutes while playing catch. The pt required SBA during static sitting. Transfers: Did not assess this session Gait: Did not assess this session Stairs: Did not assess this session Equipment to be issued at discharge: DME: To be determined (02/22/21907) Education: Education Documentation Rehabilitation, taught by Simeon Fong, Picking Supervisor at 02/22/2021 9:08 AM. Learner: Patient Readiness: Acceptance Method: Explanation, Demonstration Response: Demonstrated Understanding, Needs Reinforcement Comment: Per PT POC, safety with bed mobility Rehabilitation, taught by Simeon Fong, Picking Supervisor at 02/20/2021 2:04 PM. Learner: Patient Readiness: Acceptance Method: Explanation, Demonstration, Teach Back Response: Needs Reinforcement, No Evidence of Learning Comment: Per PT POC, safety with transfers, safety with bed mobility. Education Comments No comments found. Other: Pt showed no signs of dizziness or SOB Positioning after tx: Tolerated session well. Patient returned supine, positioned as found, bilateral upper extremities and lower extremities elevated for comfort and maintained skin integrity, bed alarm on with all lines intact; call light in reach. RN aware. A: Response to treatment: Progressing towards goals Recommend: Post acute care (02/22/21907) Recommendations were made on today's assessment. Additional recommendations will be based on patient's progress in therapy. P: Continue PT 2-5x/wk at bedside for Transfer training, Gait training, Exercises, Balance training, unless change in status or patient is discharged from the facility. Plan of Care developed, as indicated by PT assessment and patient's current status. Please refer to plan of care for updates on goals. Zone #: [id number] MAPPING TECHNICIAN * Care Plan - Fior Anderson RN - 02/21/2021 7:33 PM CST Pt alert and cooperative with staff though non-verbal. Pt having increased tremors and shaking thisshift that improved after waving magnet over neuro simulator over several minutes. Pt's appetite good eating most of all meals. MAPPING TECHNICIAN * Care Plan - Dalton Barron GN - 02/21/2021 6:20 AM CST Pt alert and nonverbal. Pt showed no signs of pain. Pt took med's whole in vanilla pudding. Pt incontinent of urine. Pt sleeping in between care. Will Continue to monitor. Call light in reach. Pt on room air. Pneumonia Pathway - Current (INTERDIS PW: PNEUMONIA PATHWAY ADULT) Hemodynamic: Temp </= 100.4 F, Heart Rate </= 100 beats/minute, Respirations </= 24/minute, Systolic Blood Pressure >/= 90 mmHg for the past 24 hours. Outcome: Met Respiratory: Oxygen Saturation maintained >/= 90% for the past 24 hours on room air -OR- baseline oxygen therapy. Outcome: Met Nutrition: Able to maintain oral intake without an increase in respiratory symptoms -OR- nutrition needs identified and arrangements made for discharge. Outcome: Met Activity: Able to ambulate greater than 50 feet (or participate in baseline activity) -OR- arrangements made for discharge. Outcome: Met Medication Management: Transitioned to oral antibiotics -OR- arrangements for post-discharge IV antibiotics have been made. Outcome: Met Discharge Instructions/Patient Education: Learner verbalizes names of antibiotics and understands importance of completing therapy, follow-up provider appointment, symptoms to report, nutrition/fluidintake and progressive activity. Outcome: Met Day 1 - Current ([place] Pathway: Adult and Obstetrics) Patient, family, or healthcare designee is participating in individual care plan process Outcome: Met Patient, family, or healthcare designee understands side effects of medications Outcome: Met Pathway Day 1 - Current (INTERDIS PW: SKIN/PRESSURE INJURY PREVENTION) Skin Integrity/Integumentary: Interventions initiated to maintain intact skin. Patient maintains intact skin with Star Score maintained or improved. Outcome: Met Nutrition Management: Patient/health care delegate understands importance of adequate protein and fluid intake. Outcome: Met Bladder & Bowel Movement: Moisture management for incontinence initiated and maintained or patient is continent of urine/stool. Outcome: Met Activity/Rehab: Patient/health care delegate understands repositioning/offloading techniques or patient moves independently. Outcome: Met MAPPING TECHNICIAN * Care Plan - Fior Anderson RN - 02/20/2021 4:11 PM CST Pt alert and non verbal. VSS. No S/S of pain noted. Pt's appetite remains poor, though encouragement and assistance provided at meal times. MAPPING TECHNICIAN * Care Plan - Yanci Romero, Occupational Therapist - 02/20/2021 2:04 PM GIS MAPPING TECHNICIAN Problem: Physical Mobility, Impaired Goal: Mobility goal: Improve transfer ability by discharge Description: Patient will transfer to/from toilet with modified independent. Outcome: Progressing Flowsheets Taken 02/20/2021 1427 by Yanci Romero Occupational Therapist Present Activity: dangled at bedside in bed Taken 02/20/2021 1404 by Yanci Romero Occupational Therapist Mon: X Pain Rating: Rest: 0 Pain Management Interventions: unnecessary movement avoided Response to Interventions: content/relaxed Total Treatment Time (min): 17 OT Treatment Start Time: 1404 OT Treatment Stop Time: 1421 Taken 02/20/2021 0455 by Hieu Chacon, TREVER Physical Assist/Nonphysical Assist: w/ 2 person assist Taken 02/19/2021 2256 by Maia Angeles RN Assistive Devices Screening: Transfer pad Taken 02/18/2021 1428 by Mario Mack, Occupational Therapist Therapy Plan of Care: 2-5x/week Therapy Comments: from [facility], non-verbal, typically can ambulate short distances Problem: Self-Care Deficit Goal: Self care goal: Improve dressing ability by discharge Description: Patient will require modified independence with lower extremity dressing Outcome: Progressing S: Patient agrees to therapy. Pt denies pain throughout session. Pt supine in bed connected to telemetry upon OT arrival. Co-treat with physical therapy to advance therapy outcomes. O: Cognition/ Perception: Alert, pleasant, cooperative, decreased command follow, non-verbal Skin Integrity: No signs of skin breakdown noted Weight Bearing: no restrictions Precautions: Fall; high droplet contact Exercises: Bilateral UE PROM x 10 reps ---UE Exercises: Elbow flex/extension, pronation/supination, hand/wrist ROM. UE exercises to help improve pts strength, ROM and [place] with self care. Physical therapy performed LE exercises FUNCTIONAL ACTIVITIES UE Dressing: Dependent to manipulate strings behind neck. LE Dressing: dependent to don and doff sock supine in bed Functional mobility: Max A supine to sit with assistance to elevate trunk and maneuver LE off bed. Max A to scoot hips to EOB with transfer pad. Mod A for EOB sitting balance however progressed to close SBA. Pt sat EOB ~5-7 minutes. Mod A x2 sit to supine with assistance to control trunk and elevate LE. Max A x2 to boost to HOB. Equipment Recommended at discharge: to be determined Education: Purpose of OT, OT POC, ADLs, safe transfers, UE exercises. Positioning after tx: pt supine in bed, bed alarm on, call light in reach, all lines intact, RN aware. A: Response to treatment: Pt responded well to treatment and is progressing towards goals. Recommend: Post-Acute Facility Recommendations were made on today's assessment. Additional recommendations will be based on patient's progress in therapy. P: Continue 2-5x/wk at bedside for: ADL Training, Functional Mobility Training, UE ROM/Strengthening, Patient Education, Cognition/Perception unless change in status or patient is discharged from [facility]. Plan of Care developed, as indicated by OT assessment and patient's current status. Please refer to plan of care for updates on goals. Zone #: [id number] MAPPING TECHNICIAN * Care Plan - Simeon Fong Picking Supervisor - 02/20/2021 2:04 PM CST Problem: Physical Mobility, Impaired Goal: Mobility goal: Improve transfer ability by discharge Description: Patient will transfer supine to sit with modified independence. Outcome: Progressing Flowsheets Taken 02/20/2021 1405 by Simeon Fong, Picking Supervisor Pain Management Interventions: unnecessary movement avoided relaxation positioning Response to Interventions: content/relaxed resting quietly Present Activity: bed mobility dangled at bedside in bed Physical Assist/Nonphysical Assist: w/ 2 person assist PT Current Discharge Recommendation: Post acute care PT Recommended DME: To be determined Taken 02/18/2021 1427 by Ángela Salazar Physical Therapist Therapy Plan of Care: 2-5x/week Therapy Eval Date: 02/18/21 Therapy Comments: 02/18:nonverbal, cotx S: Patient is nonverbal, informed pt and RN to treatment, RN agreeable to therapy. Pt was supine inbed upon arrival on room air. Co-Treat with OT. O: Cognition/ Perception: Alert, nonverbal Weight Bearing: No restrictions Skin Integrity: Visible skin intact Precautions: Fall, covid+ Exercises: Bilateral LE PROM x 10 reps, sitting Type: Sitting exercises: Long arc quads, ankle pumps --LE ROM performed to increase ROM, increase strength, increase muscular endurance, prevent loss ofjoint mobility to promote independence with functional mobility and gait. MOBILITY ASSESSMENT Bed Mobility: Pt required max assist during supine > sit with v/c for proper hand placement on the EOB. Pts sitting balance progressed from mod assist x1 to SBA when dangling EOB for ~7 minutes. Pt required mod assist x 2 during sit > supine and max assist x 2 for boosting and repositioning in the bed. Transfers: Did not assess due to pt shaky during this session Gait: Did not assess due to safety concern Stairs: Did not assess Equipment to be issued at discharge: DME: To be determined (02/20/211404) Education: Education Documentation Rehabilitation, taught by Simeon Fong, Picking Supervisor at 02/20/2021 2:04 PM. Learner: Patient Readiness: Acceptance Method: Explanation, Demonstration, Teach Back Response: Needs Reinforcement, No Evidence of Learning Comment: Per PT POC, safety with transfers, safety with bed mobility. Education Comments No comments found. Other: Pt on room air tele, with O2 sats not dropping below 90% this session Positioning after tx: Tolerated session well. Patient returned supine, positioned as found, bilateral upper extremities and lower extremities elevated for comfort and maintained skin integrity, bed alarm on with all lines intact; call light in reach. RN aware. A: Response to treatment: Progressing towards goals Recommend: Post acute care (02/20/211404) Recommendations were made on today's assessment. Additional recommendations will be based on patient's progress in therapy. P: Continue PT 2-5x/wk at bedside for Transfer training, Gait training, Exercises, Balance training, unless change in status or patient is discharged from the facility. Plan of Care developed, as indicated by PT assessment and patient's current status. Please refer to plan of care for updates on goals. Zone #: [id number] MAPPING TECHNICIAN * Care Plan - Sujatha Novak RN - 02/20/2021 11:33 AM CST Discharge planning continues. CM spoke with nurse and reviewed chart. Patient is very weak and requires 2 max to sit up. Destini WADE from his residential fpc called for an update. She was made aware he is not very ambulatory at this time. His endurance is not good at this time. Referrals were place today for inpatient rehab if tolerated. It is his mother goal for him to return to his home. Sujatha CALVILLO RN CRRN Office: [phone] [email or web address] Problem: Discharge Planning Goal: Identify discharge needs upon admission and through discharge Description: Outcome: Progressing MAPPING TECHNICIAN * Care Plan - Mayela Frey GN - 02/19/2021 8:02 PM CST VSS. Pt has had very little appetite today. Spoke with mother about suggestions. She stated he likes chocolate Ensure shakes. We will try that with his meals. No complaints or signs of pain. Pt resting between care. MAPPING TECHNICIAN * Care Plan - Olga Garcia RN - 02/18/2021 5:13 PM CST ISMAEL pt mental status during this shift, pt is nonverbal. Pt did not seem to be in pain during this shift. Pt was turned q2. Pt refused to eating breakfast and lunch during this shift. Pt rested in between care during this shift. Pt did refuse his afternoon medication MD made aware. Pt remains on RA. Pt has call light with in reach. No other concerns at this time. MAPPING TECHNICIAN * Therapy Evaluation - Ángela Salazar, Physical Therapist - 02/18/2021 3:19 PM CST Physical Therapy order received, chart reviewed, and evaluation completed. Please see full evaluation below for details. Daily PT notes will be located in Care Plan notes. Thank You. PT INITIAL EVALUATION Reason for Admission: Cough, COVID+ Ordered by: MD Roberto Activity Order: None listed Weight Bearing Status: None listed Precautions: Fall; high droplet/contact COVID + PMH: Past Medical History: Diagnosis Date ??? ADHD (attention deficit hyperactivity disorder) ??? Adjustment reaction with aggression ??? Allergic rhinitis ??? Autism ??? Constipation ??? COVID-19 virus detected 02/13/2021 02/13/2021 ??? Developmental delay disorder ??? Emmett-Gastaut syndrome ??? Other general symptoms(780.99) Aggression-Adjustment Disorder ??? Psychiatric disorder anxiety ??? 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 Seizure disorder ??? Static encephalopathy ??? Tremors of nervous system S: Patient is nonverbal. RN consents to treatment. Pt does not demonstrate any s/s of pain Pain intervention: No intervention required Response to pain intervention: Agrees to continue Living Situation/Functional Level ASSISTANT MEN'S SOCCER COACH: Pt unable to provide history. Per chart review, pt lives in a fci and receives assist w/ ADLs and ambulates short distances Home Equipment: unknown O: Appearance: 35 yo male laying in bed w/ telemetry in place Cognition/Perception: Pt is nonverbal, follows 1 step commands, pleasant Skin Integrity: Exposed areas intact to observation ROM: Bilateral Lower Extremity WFL Muscle Tone: WFL Strength: unable to assess due to difficulty w/ command following - appears functionally intact, ptable to move extremities against gravity in all directions Sensation: Unable to assess MOBILITY ASSESSMENT: Bed Mobility: Sup>sit: maxA x2 to bring LE off EOB and elevate trunk. Initially required [place] for static sitting, progressing to SBA x10 minutes. Sit>sup: [place] for LE elevation, pt able to boost once back in bed several inches but then required maxA x2 to boost the rest of the way Transfers: Sit<>stand: performed 3x w/ modA x2 and GREASER HELPER. Pt able to stand statically for ~10 seconds w/ each trial. Pt sits suddenly though due to fatigue. Gait: Unable to assess due to decreased safety Balance: Static sitting: fair w/ no UE support and SBA Static standing: fair w/ 2 UE support and modA x2 Patient/Family Education: PT POC Other: Co-tx performed this date for safety and to maximize functional outcomes. Recommend continued co-tx to progress mobility. Positioning after tx: Supine in bed with bed alarm active, lines intact, call light/needs within reach. RN aware. A: Disabilities: Decreased ability to transfer and ambulate, decreased independence w/ functional mobility, decreased strength, impaired balance, impaired endurance Assessment: Initiate skilled PT to address the above deficits Clinical Presentation: Stable and/or uncomplicated EVALUATION COMPLEXITY: Low Complexity -These findings are based on patient's self reporting, therapist's objective findings and professional determinations. Recommend: Post acute care (02/18/211426) Recommendations were made on today's assessment. Additional recommendations will be based on patient's progress in therapy. P: PT to see patient: At bedside 2-5x/wk. Will continue therapy unless patient has a change in status or patient is discharged from the facility. Plan of Care developed, as indicated by PT assessmentand patient's current status. Treatment Plan: Patient to be seen for Transfer training, Gait training, Exercises, Balance training Recommendations: For: Nursing --none Equipment to be issued at DC: To be determined (02/18/211426) --Patient involved in goal setting: no Patient goals will be found in the Care Plan section of the medical chart. Zone #: [id number] On weekends--please call [phone] MAPPING TECHNICIAN * Therapy Evaluation - Mario Mack Occupational Therapist - 02/18/2021 2:57 PM CST Occupational Therapy order received, chart reviewed, and evaluation completed. Please see full evaluation below for details. Daily OT notes will be located in Care Plan notes. Thank You. OT INITIAL EVALUATION Reason for Admission: COVID-19, weakness, hypoxemia Ordered by: Up with assist Activity Order: Up w/ assist Weight Bearing Status: No restrictions Precautions: Fall; contact, high droplet PMH: Past Medical History: Diagnosis Date ??? ADHD (attention deficit hyperactivity disorder) ??? Adjustment reaction with aggression ??? Allergic rhinitis ??? Autism ??? Constipation ??? COVID-19 virus detected 02/13/2021 02/13/2021 ??? Developmental delay disorder ??? Emmett-Gastaut syndrome ??? Other general symptoms(780.99) Aggression-Adjustment Disorder ??? Psychiatric disorder anxiety ??? 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 Seizure disorder ??? Static encephalopathy ??? Tremors of nervous system S: Patient non-verbal, does not appear to be in distress, RN oksydnee guzman Living Situation/Functional Level ASSISTANT MEN'S SOCCER COACH: [facility], per chart patient able to ambulate short distances but does also have wheelchair he can use, he has 24/7 assist from caregivers, receives help w/ ADLs Home Equipment: wheelchair O: Appearance: 35 year old male supine in bed, tele Cognition/Perception: Alert, follows some basic 1 step commands w/ increased time, non-verbal UE ROM: grossly intact per observation UE Strength: grossly intact per observation Coordination: right Hand Dominant: WFL FUNCTIONAL ACTIVITIES ASSESSMENT: Grooming: maxA to wash face while seated EOB, close SBA static sitting balance UE Dressing: maxA to tie gown around backside LE Dressing: maxA to doff/tone socks Bed mobility: maxA x 2 supine to sit EOB for trunk and BLE support, initial Juwan progressing to SBAfor static sitting balance,Juwan dynamic reaching balance, Juwan EOB to supine and assist of 2 for boosting up in bed; Functional Mobility: modA x 2 sit <> stand from EOB to GREASER HELPER two trials of standing, tolerates standing x 10 seconds w/ GREASER HELPER modA, pt sits abruptly, quickly fatigues. Attempted to have patient take side steps at EOB however pt unable to safely complete Positioning after tx: Pt supine in bed bed alarm secondary school principal light in reach lines intact Patient/Family Education: Role/goal of OT Equipment needed at DC: ongoing A: Disabilities: Patient presents with decreased independence and safety with ADL and functional mobility Assessment: Patient would benefit from skilled OT to address above deficits EVALUATION COMPLEXITY: Low Complexity -These findings are based on patient's self reporting, therapist's objective findings and professional determinations. Recommend: Post acute care (02/18/21 2990) Recommendations were made on today's assessment. Additional recommendations will be based on patient's progress in therapy. P: OT to see patient: 2-5x/wk at bedside Treatment: OT to see patient for: ADL Training, Functional Mobility Training, UE ROM/Strengthening,Patient Education, Cognition/Perception Will continue therapy unless patient has a change in statusor patient is discharged from the facility. --Patient involved in goal setting: yes Patient goals will be found in the Care Plan section of the medical chart. Zone #: [id number] On weekends--please call [phone] MAPPING TECHNICIAN * Care Plan - Mack Coleman RN - 02/18/2021 8:02 AM CST Patient A&Ox0 due to unable to verbalize. Did not appear to be in pain during shift. Patient resting during the night. VSS and on RA. Medication given in ice cream. Incontinent of urine during shift. Incontinent care performed. Bowel protocol continued. Assessments completed and education. Mack Coleman RN, 02/18/2021 8:09 AM MAPPING TECHNICIAN * Care Plan - Monica Daley RN - 02/17/2021 6:28 PM CST ISMAEL A&O status d/t pt being non-verbal, but arousable by speech. VSS. Pt does not appear to be in pain. Pleasant interactions during shift. Resting between cares. MAPPING TECHNICIAN * Care Plan - Sara Smith RN - 02/16/2021 8:02 PM CST Unable to assess A&O status due to MR. However pt responds to name and is alert when at bedside. VSS. Afebrile. On RA. Telemetry monitoring continues. Took medications in pudding w/o any difficulty. Incontinent of urine throughout shift. Seizure precautions in place and side rails are padded. Good appetite and pt requires assistance with eating. No further concerns at this time. MAPPING TECHNICIAN * Care Plan - Ursula Hardin RN - 02/16/2021 6:28 AM CST Pt is alert this shift, although unable to assess A&O status due to pt being nonverbal. VSS. Maintains O2 on room air. Telemetry monitoring continued. Pt is incontinent x2, urinates often, linensand gown changed. No BM this shift. Seizure precautions in place. Suction equipment at bedside, seizure pads ordered. Uneventful night, pt sleeps most of shift. MAPPING TECHNICIAN * Care Plan - Sara Smith RN - 02/15/2021 6:53 PM CST Pt. Non-verbal due to MR. Unable to assess A&O status although alert when in room. Remains on RA. Incontinent x2 no BM this shift. Repositioned throughout shift. Good appetite.Sleeping between care. No further concerns. MAPPING TECHNICIAN * Care Plan - Charanjit Payne SLP - 02/15/2021 2:06 PM CST Problem: Therapy: Dysphagia/Swallow Goal: Tolerates least restrictive diet utilizing swallowing precautions/strategies with no signs/symptoms of aspiration Outcome: Progressing Flowsheets (Taken 02/15/2021 1406) Therapy Start Time: 1340 Therapy Stop Time: 1405 Total Therapy Minutes: 25 Pain Rating: Rest: 0 Pain Rating: FACES (rest): 0 Pain Rating: FACES (activity): 0 Speech-Language Pathology Swallow Evaluation Pertinent Medical History: 35 y.o. male who presents with the following symptoms concerning for COVID-19: cough. A COVID-19 PCR test is positive. The patient has had confirmed exposure to a lab-confirmed COVID-19 individual. H/o autism. Nonverbal at baseline. Consent: Consent for swallow evaluation given by Patient Orientation/Cognition/Behavior: Pt awake, alert, nonverbal. Did not follow commands. Oral Mechanism Examination: Dentition appears largely intact. Respiratory Status: Oxygen Therapy O2 Device: room air (02/15/21 1155) Oxygen Therapy Flow (L/min): 3 (02/14/21 1655) Baseline Diet/Dysphagia: General diet at baseline. Per Pt's mother, food needs to be cut into smallpieces. RN reports Pt coughing with po medications in puree this morning. Results of po trials: Po trials performed with ice chips, applesauce, hue cracker, and water. Ptwith mild prolonged mastication and oral prep of bolus. Pharyngeal swallow response was often mild-moderate delayed, more so with puree and solids. Laryngeal elevation was fair to palpation. Pharyngeal swallow was mild diminished in crispness to cervical auscultation. No gross overt s/s of aspiration. Patient Education: The Pt was educated on the impressions, recommendations, and aspiration precautions. Pt verbalized understanding, requires reinforcement RN notified of recommendations Impressions: Pt presents with mild oropharyngeal dysphagia, likely baseline from underlying autism/developmental disorder. Overall tolerated po trials fairly well during my exam. Will resume general diet. Aspiration precautions. Assist with meals as needed. Recommendations: 1. General diet, cut foods into small pieces 2. Aspiration precautions as follows: - sit at 90 degree angle (chin to neck angle- not HOB) - alternate liquids and solids - small, single sips - slow rate - pills in puree - 100% supervision 3. SALES REPRESENTATIVE JEWELRY to follow for diet and aspiration precautions management, dysphagia exercises, and Pt and family training as indicated. SALES REPRESENTATIVE JEWELRY to continue to follow during this admission. If DC from facility were to occur before next treatment, please continue SALES REPRESENTATIVE JEWELRY services at next level of care if Pt remains therapeutic. Willie Payne M.A., [facility] REPRESENTATIVE JEWELRY Speech Language Pathology [facility] *On weekends call [phone] MAPPING TECHNICIAN * Care Plan - Sujatha Novak RN - 02/15/2021 1:42 PM CST Care Management Initial Assessment Initial Discharge Planning Assessment completed. Discussed Care Management's role and Discharge planning. Discharge Plan: Residential care facility Patient Discharge Planning Goal: Return to previous facility, [facility] Patient will potentially discharge to a SNF/NH? No Care Management visited with: other mother Mary via phone. Prior to admission, patient resides at: [facility]. 03/09 care givers Prior to admission, living arrangements: group setting. Prior to admission, patient's functional level:requires assistance; uses wheelchair and other gait belt, medical bed, and helmet for ADLs; needs assistance with iADLs: bathing, dressing, meal preparation, transportation, shopping, running errands, medication management, housekeeping, telephone use, and managing finances Prior to admission, the patient has the following DME? Yes wheelchair Services in the home: NA Receives hemodialysis? No Emergency contact(s): Extended Emergency Contact Information Primary Emergency Contact: SANDOR BEEBE Address: [address] [place] [address] [place] [address] [facility] Relation: Mother Secondary Emergency Contact: QUIN STALLWORTH Mobile Relation: Other Insurance coverage verified: Payor: MEDICAID / Plan: [place] / Product Type: Medicaid / Prescription coverage: yes Preferred Pharmacy verified: [facility] [place], [place] - [address], [address] Employment Status: disabled Has VA Benefits: no PCP verified as: Gulshan Mena, DO Patient has not had a stay at an acute care hospital in the last 30 days. Recent Falls?: Last Known Fall: No falls Patient has a [employer] account: no Patient has a smart device: No Patient's mobile number verified: No. Patient's number: No relevant phone numbers on file. Patient is able to receive text messages: No Patient has access to the internet: No Plan for transportation at discharge: [facility] provides transportation Comments: [facility] CM is Irma Pat [phone], Justin Stallworth [phone], Destini WADE [phone]. Community Living Facility will accept him back just there are no weekend admissions. Must be discharge before 5pm Saturday and the need a 24 hour notice to arrange transportation. Patient is not able to return with IV medication or oxygen. Would like for him to be as close to his baseline as possible. She should be able to ambulate some. He does have a wheelchair available if needed. Care Management contact information provided. Care Management will continue to follow and assist asneeded. Sujatha CALVILLO RN CRRN Office: [phone] [email or web address] Problem: Discharge Planning Goal: Identify discharge needs upon admission and through discharge Description: Outcome: Progressing MAPPING TECHNICIAN * Care Plan - Ursula Hardin RN - 02/15/2021 6:53 AM CST VSS. Pt maintains O2 sat on room air throughout night. Pt is nonverbal, unable to assess A&O status. Pt is very alert and cooperative with care. Incontinent x2, urinates often, no BM this shift. Linens and gown changed. Pt's mother updated on POC this AM. Pt sleeps well throughout night. No further concerns. MAPPING TECHNICIAN * Care Plan - Tonia Locke LPN - 02/14/2021 8:56 PM CST UNDRESS AND ASSESS FOR ALL ADMISSIONS AND TRANSFERS: Remove all existing dressings and assess all wounds upon admission (unless instructed by physician). Undress and Assess performed by: bedside coworker MAURO Vergara and bedside coworker MAGDY Randall on admission to [facility] Surg Star Score: 1. Patient does not have skin breakdown. ??? If yes o Describe wound location and appearance: o LDA added for any open areas and for non-blanching pink/red or purple areas? N/A (please note, heels, ankles, knees, hips, sacrum, coccyx, ischium, gluteal, occiput, spine and all skin folds are high risk for skin breakdown) and consult wound care services 2. Was wound photographed: N/A 3. Is a specialty support surface utilized? N/A If yes, which one?: i.e. impaired mobility, bariatric, malnourished, existing pressure injury. 4. Is the patient a paraplegic/quadriplegic? N/A If so, if stable spine immediately place on specialty surface. If unstable spine or new spinal injury, consult physician (per facility process) and consult wound care services. 5. Is a medical claims representative in place?no If yes, remove device/brace/splint to check skin underneath, obtain provider order if necessary. 6. Does the patient have a wound VAC (negative pressure wound therapy)? No If yes, please consult wound care services and follow facility process. 7. Does the patient have an ostomy? No If yes, please consult wound care services. 8. Was the Skin Care Prevention: Pressure Injury Pathway initiated and appropriate interventions selected? No (Use for prevention of skin issues due to friction, shear, pressure, mobility or moisture issues.) 9. Was the Skin Care Treatment: Pressure Injury/Lower Extremity Ulcer Pathway initiated, and appropriate interventions selected? No (Use for conditions such as: existing pressure injuries, yeast, deep tissue injury, incontinence associated dermatitis, lower extremity ulcers, and skin tears) Wound care consult was not initiated. [facility] Skin Care Injury Prevention and Treatment Protocol [facility] Approved by: [facility] - Medical Executive Committee Approval Date: 02/26/2019 ORDERS ARE ENTERED ???PER PROTOCOL?? Nursing Orders: o When a patient age 18 years or older has: ? a documented Star score of 18 or less or a Star sub score of 2 or 1, ? or a documented condition on the problem list of: diabetes, malnutrition or cachectic, paralysis,spinal cord disorder/injuries or muscle/neurological disease, THEN, the RN will order the Skin Care/Pressure Injury Prevention Pathway and initiate all appropriate interventions as per the Star Risk Assessment Algorithm. o When a patient age 18 years or older has a wound requiring treatment, the RN and Wound Care Nurses may order the Skin Care/Pressure Ulcer/Lower Extremity Ulcer Treatment Pathway and use appropriatetreatments found in the Nursing Algorithm. o The Wound Care Nurse may also order treatments found in the Wound Care Algorithm. MAPPING TECHNICIAN documented in this encounter Plan of Treatment Not on file documented as of this encounter Procedures Procedure Name Priority Date/Time Associated Diagnosis Comments TELEMETRY REPORT 02/24/2021 10:4 9 AM GIS MAPPING TECHNICIAN TELEMETRY REPORT 02/22/2021 10:0 4 AM GIS MAPPING TECHNICIAN CBC WITH DIFFERENTIAL Routine 02/20/2021 7:15 PM GIS MAPPING TECHNICIAN BASIC METABOLIC PANEL Routine 02/20/2021 7:15 PM GIS MAPPING TECHNICIAN CBC WITH DIFFERENTIAL Routine 02/15/2021 7:53 AM GIS MAPPING TECHNICIAN BASIC METABOLIC PANEL Routine 02/15/2021 7:53 AM GIS MAPPING TECHNICIAN PROCALCITONIN Stat 02/14/2021 7:12 AM GIS MAPPING TECHNICIAN CBC WITH DIFFERENTIAL Stat 02/14/2021 7:12 AM GIS MAPPING TECHNICIAN D-DIMER Stat 02/14/2021 7:12 AM GIS MAPPING TECHNICIAN BASIC METABOLIC PANEL Stat 02/14/2021 7:12 AM GIS MAPPING TECHNICIAN POC LACTIC ACID Stat 02/14/2021 3:57 AM GIS MAPPING TECHNICIAN BLOOD GAS,(INCL. H+H, LYTES, GLUC) Stat 02/14/2021 3:57 AM GIS MAPPING TECHNICIAN POC GLUCOSE Stat 02/14/2021 3:48 AM GIS MAPPING TECHNICIAN XR CHEST PA OR AP 1 VW Stat 10:47 PM GIS MAPPING TECHNICIAN EXTRA TUBE (RED) Stat 02/13/2021 8:42 PM GIS MAPPING TECHNICIAN EXTRA TUBE Stat 02/13/2021 8:42 PM GIS MAPPING TECHNICIAN CBC WITH DIFFERENTIAL Stat 02/13/2021 8:42 PM GIS MAPPING TECHNICIAN C-REACTIVE PROTEIN Stat 02/13/2021 8: 42 PM GIS MAPPING TECHNICIAN COMPREHENSIVE METABOLIC PANEL Stat 02/13/2021 8:42 PM GIS MAPPING TECHNICIAN INFLUENZA A/B, RSV AND COVID-19 PCR PANEL Stat 02/13/2021 5:07 PM GIS MAPPING TECHNICIAN INFLUENZA A/B AND COVID-19 PCR PANEL Stat 02/13/2021 5:07 PM GIS MAPPING TECHNICIAN RSV, PCR DETECTION Stat 02/13/2021 5: 07 PM GIS MAPPING TECHNICIAN CRITICAL CARE Routine 02/13/2021 4:27 PM GIS MAPPING TECHNICIAN documented in this encounter Results * TELEMETRY REPORT (02/24/2021 10:49 AM GIS MAPPING TECHNICIAN) Provider Scanning ECG ORDERABLES * TELEMETRY REPORT (02/22/2021 10:04 AM GIS MAPPING TECHNICIAN) Provider Scanning ECG ORDERABLES * (ABNORMAL) BASIC METABOLIC PANEL (02/20/2021 7:15 PM GIS MAPPING TECHNICIAN) SODIUM 141 136 - 145 mmol/L 02/20/2021 8:08 PM GIS MAPPING TECHNICIAN [facility] - [facility] POTASSIUM 3.7 3.5 - 5.0 mmol/L 02/20/2021 8:08 PM GIS MAPPING TECHNICIAN [facility] - [facility] CHLORIDE 107 98 - 107 mmol/L 02/20/2021 8:08 PM GIS MAPPING TECHNICIAN [facility] - . [facility] CO2 22 22 - 29 mmol/L 02/20/2021 8:08 PM GIS MAPPING TECHNICIAN [facility] - . [facility] CALCIUM 9.6 8.6 - 10.2 mg/dL 02/20/2021 8:08 PM GIS MAPPING TECHNICIAN [facility] - . [facility] BUN 15 6 - 20 mg/dL 02/20/2021 8:08 PM GIS MAPPING TECHNICIAN [facility] - . [facility] CREATININE 0.92 0.67 - 1.17 mg/dL 02/20/2021 8:08 PM GIS MAPPING TECHNICIAN [facility] - . [facility] GLUCOSE 183(H) 74 - 99 mg/dL 02/20/2021 8:08 PM GIS MAPPING TECHNICIAN [facility] - . [facility] GFR >60 mL/min/1.7 3 sq meter 02/20/2021 8:08 PM GIS MAPPING TECHNICIAN [facility] - [facility] Comment: eGFR has not been validated for use in the elderly (> 70 years of age), women, patients with serious co-morbid conditions, or persons with extremes of body size or muscle mass and should also be interpreted with caution in patients with acute kidney failure, dialysis dependent patients, patients reporting exceptional dietary intake (e.g. vegetarian diet, high protein diets, creatine supplementation), and patients with severe liver disease. Based on National Kidney Disease Education Program If patient is , please refer to the GFR result. GFR, >60 mL/min/1.7 3 sq meter 02/20/2021 8:08 PM GIS MAPPING TECHNICIAN [facility] ANION GAP 12 8 - 16 mmol/L 02/20/2021 8:08 PM GIS MAPPING TECHNICIAN [facility] Blood Venipuncture / Unknown 02/20/2021 7:15 PM GIS MAPPING TECHNICIAN 02/20/2021 7:31 PM GIS MAPPING TECHNICIAN Diane Mejia MD CHEMISTRY ORDERABLES [facility] CLCO# [id number] [address] [place] [address] * (ABNORMAL) CBC WITH DIFFERENTIAL (02/20/2021 7:15 PM GIS MAPPING TECHNICIAN) WBC 5.5 4.0 - 9.8 K/uL 02/20/2021 7:43 PM GIS MAPPING TECHNICIAN [facility] NRBCS 1 % 02/20/2021 7:43 PM [facility] RBC 4.34(L) 4.50 - 5.40 M/uL 02/20/2021 7:43 PM [facility] HEMOGLOBIN 13.7 13.6 - 16.5 g/dL 02/20/2021 7:43 PM GIS MAPPING TECHNICIAN [facility] HEMATOCRIT 38.9(L) 40.0 - 48.0 % 02/20/2021 7:43 PM GIS MAPPING TECHNICIAN [facility] MCV 89.6 82.0 - 99.0 fL 02/20/2021 7:43 PM GIS MAPPING TECHNICIAN [facility] MCH 31.6 27.2 - 32.6 pg 02/20/2021 7:43 PM GIS MAPPING TECHNICIAN [facility] MCHC 35.2 31.5 - 35.5 g/dL 02/20/2021 7:43 PM GIS MAPPING TECHNICIAN [facility] RDW 12.5 11.5 - 14.5 % 02/20/2021 7:43 PM GIS MAPPING TECHNICIAN [facility] - [facility] RDW-STDEV 40.0 37.1 - 48.7 fL 02/20/2021 7:43 PM GIS MAPPING TECHNICIAN [facility] PLATELETS 308 140 - 350 K/uL 02/20/2021 7:43 PM GIS MAPPING TECHNICIAN [facility] - [facility] MPV 9.0(L) 9.3 - 12.4 fL 02/20/2021 7:43 PM GIS MAPPING TECHNICIAN [facility] - [facility] NEUTROPHILS 72 % 02/20/2021 7:43 PM GIS MAPPING TECHNICIAN [facility] - [facility] LYMPHOCYTES 19 % 02/20/2021 7:43 PM GIS MAPPING TECHNICIAN [facility] MONOCYTES 4 % 02/20/2021 7:43 PM GIS MAPPING TECHNICIAN [facility] - [facility] EOSINOPHILS 1 % 02/20/2021 7:43 PM GIS MAPPING TECHNICIAN [facility] - [facility] BASOPHILS 1 % 02/20/2021 7:43 PM GIS MAPPING TECHNICIAN [facility] - . [facility] IMMATURE GRANULOCYTES 4 % 02/20/2021 7:43 PM GIS MAPPING TECHNICIAN [facility] - [facility] Comment:IG (Immature Granulo cyte) count includes Metamyelocytes, Myelocytes, and Promyelocytes NEUTROPHIL ABSOLUTE 3.94 1.90 - 7.00 K/uL 02/20/2021 7:43 PM GIS MAPPING TECHNICIAN [facility] LYMPHOCYTE ABSOLUTE 1.06 0.70 - 4.50 K/uL 02/20/2021 7:43 PM GIS MAPPING TECHNICIAN [facility] MONOCYTE ABSOLUTE 0.23 0.10 - 1.30 K/uL 02/20/2021 7:43 PM GIS MAPPING TECHNICIAN [facility] EOSINOPHIL ABSOLUTE 0.03 0.00 - 0.70 K/uL 02/20/2021 7:43 PM GIS MAPPING TECHNICIAN [facility] BASOPHILS ABSOLUTE 0.03 0.00 - 0.20 K/uL 02/20/2021 7:43 PM GIS MAPPING TECHNICIAN [facility] - . [facility] IMMATURE GRANULOCYTES ABSOLUTE 0.20(H) 0.00 - 0.03 K/uL 02/20/2021 7:43 PM [facility] Blood Venipuncture / Unknown 02/20/2021 7:15 PM GIS MAPPING TECHNICIAN 02/20/2021 7:31 PM GIS MAPPING TECHNICIAN Diane Mejia MD HEMATOLOGY ORDERABLE [facility] - [facility]# [id number] [address] [facility] [place] [address] * (ABNORMAL) BASIC METABOLIC PANEL (02/15/2021 7:53 AM GIS MAPPING TECHNICIAN) SODIUM 144 136 - 145 mmol/L 02/15/2021 8:32 AM [facility] - . [facility] POTASSIUM 3.9 3.5 - 5.0 mmol/L 02/15/2021 8:32 AM [facility] - . [facility] CHLORIDE 111(H) 98 - 107 mmol/L 02/15/2021 8:32 AM [facility] - . [facility] CO2 23 22 - 29 mmol/L 02/15/2021 8:32 AM [facility] CALCIUM 8.8 8.6 - 10.2 mg/dL 02/15/2021 8:32 AM [facility] BUN 17 6 - 20 mg/dL 02/15/2021 8:32 AM [facility] - . [facility] CREATININE 0.84 0.67 - 1.17 mg/dL 02/15/2021 8:32 AM [facility] - [facility] GLUCOSE 90 74 - 99 mg/dL 02/15/2021 8:32 AM [facility] GFR >60 mL/min/1.7 3 sq meter 02/15/2021 8:32 AM [facility] - [facility] Comment: eGFR has not been validated for use in the elderly (> 70 years of age), women, patients with serious co-morbid conditions, or persons with extremes of body size or muscle mass and should also be interpreted with caution in patients with acute kidney failure, dialysis dependent patients, patients reporting exceptional dietary intake (e.g. vegetarian diet, high protein diets, creatine supplementation), and patients with severe liver disease. Based on National Kidney Disease Education Program If patient is , please refer to the GFR result. GFR, >60 mL/min/1.7 3 sq meter 02/15/2021 8:32 AM [facility] ANION GAP 10 8 - 16 mmol/L 02/15/2021 8:32 AM [facility] - [facility] Blood Venipuncture / Unknown 02/15/2021 7:53 AM GIS MAPPING TECHNICIAN 02/15/2021 7:57 AM GIS MAPPING TECHNICIAN Ethan Mcdowell MD CHEMISTRY ORDERABLES [facility] CLIA# [id number] [address] [facility] [facility] [place] [address] * (ABNORMAL) CBC WITH DIFFERENTIAL (02/15/2021 7:53 AM GIS MAPPING TECHNICIAN) WBC 4.3 4.0 - 9.8 K/uL 02/15/2021 8:03 AM [facility] SERVICES [facility] RBC 3.87(L) 4.50 - 5.40 M/uL 02/15/2021 8:03 AM [facility] [facility] HEMOGLOBIN 12.1(L) 13.6 - 16.5 g/dL 02/15/2021 8:03 AM [facility] LABORATORY SERVICES [facility] HEMATOCRIT 35.7(L) 40.0 - 48.0 % 02/15/2021 8:03 AM [facility] LABORATORY SERVICES [facility] MCV 92.2 82.0 - 99.0 fL 02/15/2021 8:03 AM [facility] LABORATORY SERVICES - [facility] MCH 31.3 27.2 - 32.6 pg 02/15/2021 8:03 AM [facility] LABORATORY SERVICES [facility] MCHC 33.9 31.5 - 35.5 g/dL 02/15/2021 8:03 AM [facility] LABORATORY [facility] RDW 12.7 11.5 - 14.5 % 02/15/2021 8:03 AM [email or web address] LABORATORY SERVICES - . [facility] RDW-STDEV 42.7 37.1 - 48.7 fL 02/15/2021 8:03 AM [facility] [employer] LABORATORY SERVICES - . [place] PLATELETS 150 140 - 350 K/uL 02/15/2021 8:03 AM [facility] [employer] LABORATORY SERVICES - [facility] MPV 8.9(L) 9.3 - 12.4 fL 02/15/2021 8:03 AM [facility] [employer] LABORATORY SERVICES - [facility] NEUTROPHILS 55 % 02/15/2021 8:03 AM [facility] [employer] LABORATORY SERVICES - [facility] LYMPHOCYTES 33 % 02/15/2021 8:03 AM [email or web address] LABORATORY SERVICES - [facility] MONOCYTES 11 % 02/15/2021 8:03 AM [email or web address] LABORATORY SERVICES - . [place] EOSINOPHILS 0 % 02/15/2021 8:03 AM [facility] [employer] LABORATORY SERVICES - [facility] BASOPHILS 0 % 02/15/2021 8:03 AM [email or web address] LABORATORY SERVICES - . [facility] IMMATURE GRANULOCYTES 1 % 02/15/2021 8:03 AM [facility] [employer] LABORATORY SERVICES - . [place] Comment:IG (Immature Granulo cyte) count includes Metamyelocytes, Myelocytes, and Promyelocytes NEUTROPHIL ABSOLUTE 2.35 1.90 - 7.00 K/uL 02/15/2021 8:03 AM [facility] [employer] LABORATORY SERVICES [facility]. [facility] LYMPHOCYTE ABSOLUTE 1.42 0.70 - 4.50 K/uL 02/15/2021 8:03 AM [email or web address] LABORATORY SERVICES - . [facility] MONOCYTE ABSOLUTE 0.47 0.10 - 1.30 K/uL 02/15/2021 8:03 AM [email or web address] LABORATORY SERVICES - . [facility] EOSINOPHIL ABSOLUTE 0.01 0.00 - 0.70 K/uL 02/15/2021 8:03 AM [email or web address] LABORATORY SERVICES - . [place] BASOPHILS ABSOLUTE 0.01 0.00 - 0.20 K/uL 02/15/2021 8:03 AM [email or web address] SERVICES - . [facility] IMMATURE GRANULOCYTES ABSOLUTE 0.03 0.00 - 0.03 K/uL 02/15/2021 8:03 AM [email or web address] LABORATORY SERVICES [facility]. [facility] Blood Venipuncture / Unknown 02/15/2021 7:53 AM GIS MAPPING TECHNICIAN 02/15/2021 7:57 AM GIS MAPPING TECHNICIAN Ethan Mcdowell MD HEMATOLOGY ORDERABLE S [facility] LABORATORY SERVICES - [facility] CLIA# [id number] [address] [place] [address] * (ABNORMAL) CBC WITH DIFFERENTIAL (02/14/2021 7:12 AM GIS MAPPING TECHNICIAN) [facility] WBC 2.6(L) 4.0 - 9.8 K/uL 02/14/2021 7:29 AM GIS MAPPING TECHNICIAN [employer] LABORATORY SERVICES - [facility] RBC 3.76(L) 4.50 - 5.40 M/uL 02/14/2021 7:29 AM [facility] [employer] LABORATORY SERVICES - [facility] HEMOGLOBIN 11.7(L) 13.6 - 16.5 g/dL 02/14/2021 7:29 AM [facility] [employer] LABORATORY SERVICES - [facility] HEMATOCRIT 35.8(L) 40.0 - 48.0 % 02/14/2021 7:29 AM [facility] [employer] LABORATORY SERVICES - [facility] MCV 95.2 82.0 - 99.0 fL 02/14/2021 7:29 AM GIS MAPPING TECHNICIAN [employer] LABORATORY SERVICES - [facility] MCH 31.1 27.2 - 32.6 pg 02/14/2021 7:29 AM GIS MAPPING TECHNICIAN [employer] LABORATORY SERVICES - [facility] MCHC 32.7 31.5 - 35.5 g/dL 02/14/2021 7:29 AM GIS MAPPING TECHNICIAN [employer] LABORATORY SERVICES - [facility] RDW 12.9 11.5 - 14.5 % 02/14/2021 7:29 AM GIS MAPPING TECHNICIAN [employer] LABORATORY SERVICES - [facility] RDW-STDEV 45.1 37.1 - 48.7 fL 02/14/2021 7:29 AM GIS MAPPING TECHNICIAN [employer] LABORATORY SERVICES - [facility] PLATELETS 153 140 - 350 K/uL 02/14/2021 7:29 AM GIS MAPPING TECHNICIAN [employer] LABORATORY SERVICES - [facility] MPV 9.6 9.3 - 12.4 fL 02/14/2021 7:29 AM GIS MAPPING TECHNICIAN [employer] LABORATORY SERVICES - [facility] NEUTROPHILS 62 % 02/14/2021 7:29 AM [email or web address] LABORATORY SERVICES - [facility] LYMPHOCYTES 28 % 02/14/2021 7:29 AM [facility] [employer] LABORATORY SERVICES - [facility] MONOCYTES 10 % 02/14/2021 7:29 AM [facility] [employer] LABORATORY SERVICES - [facility] EOSINOPHILS 0 % 02/14/2021 7:29 AM [facility] LABORATORY SERVICES - [facility] BASOPHILS 0 % 02/14/2021 7:29 AM [facility] [employer] LABORATORY SERVICES - [facility] IMMATURE GRANULOCYTES 0 % 02/14/2021 7:29 AM [facility] [employer] LABORATORY SERVICES - [facility] NEUTROPHIL ABSOLUTE 1.62(L) 1.90 - 7.00 K/uL 02/14/2021 7:29 AM [facility] [employer] LABORATORY SERVICES - [facility] LYMPHOCYTE ABSOLUTE 0.74 0.70 - 4.50 K/uL 02/14/2021 7:29 AM [facility] [employer] LABORATORY SERVICES - [facility] MONOCYTE ABSOLUTE 0.25 0.10 - 1.30 K/uL 02/14/2021 7:29 AM [facility] [employer] LABORATORY SERVICES - [facility] EOSINOPHIL ABSOLUTE 0.00 0.00 - 0.70 K/uL 02/14/2021 7:29 AM [facility] [employer] LABORATORY SERVICES - [facility] BASOPHILS ABSOLUTE 0.01 0.00 - 0.20 K/uL 02/14/2021 7:29 AM [facility] [employer] LABORATORY SERVICES - [facility] IMMATURE GRANULOCYTES ABSOLUTE 0.01 0.00 - 0.03 K/uL 02/14/2021 7:29 AM [facility] [employer] LABORATORY [facility] - [facility] Blood Venipuncture / Unknown 02/14/2021 7:12 AM GIS MAPPING TECHNICIAN 02/14/2021 7:15 AM [facility] Frieda Allison MD HEMATOLOGY ORDERABLE S [facility] SERVICES - [facility] CLIA# [id number] [address] [place] [address] * (ABNORMAL) BASIC METABOLIC PANEL (02/14/2021 7:12 AM GIS MAPPING TECHNICIAN) SODIUM 144 136 - 145 mmol/L 02/14/2021 8:05 AM [facility] [employer] [facility]I SERVICES - [facility] POTASSIUM 4.3 3.5 - 5.0 mmol/L 02/14/2021 8:05 AM [facility] - . [facility] CHLORIDE 114(H) 98 - 107 mmol/L 02/14/2021 8:05 AM [facility]. [facility] CO2 19(L) 22 - 29 mmol/L 02/14/2021 8:05 AM [facility]. [facility] CALCIUM 8.5(L) 8.6 - 10.2 mg/dL 02/14/2021 8:05 AM [facility]. [place] BUN 16 6 - 20 mg/dL 02/14/2021 8:05 AM [facility]. [facility] CREATININE 0.83 0.67 - 1.17 mg/dL 02/14/2021 8:05 AM [facility]. [facility] GLUCOSE 125(H) 74 - 99 mg/dL 02/14/2021 8:05 AM [facility] GFR >60 mL/min/1.7 3 sq meter 02/14/2021 8:05 AM [facility] Comment: eGFR has not been validated for use in the elderly (> 70 years of age), women, patients with serious co-morbid conditions, or persons with extremes of body size or muscle mass and should also be interpreted with caution in patients with acute kidney failure, dialysis dependent patients, patients reporting exceptional dietary intake (e.g. vegetarian diet, high protein diets, creatine supplementation), and patients with severe liver disease. Based on National Kidney Disease Education Program If patient is , please refer to the GFR result. GFR, >60 mL/min/1.7 3 sq meter 02/14/2021 8:05 AM [facility] ANION GAP 11 8 - 16 mmol/L 02/14/2021 8:05 AM [facility] Blood Venipuncture / Unknown 02/14/2021 7:12 AM GIS MAPPING TECHNICIAN 02/14/2021 7:15 AM GIS MAPPING TECHNICIAN Frieda Allison MD CHEMISTRY ORDERABLES [facility] CLIA# [id number] [address] [place] [address] * PROCALCITONIN (02/14/2021 7:12 AM GIS MAPPING TECHNICIAN) PROCALCITONIN 0.13 <=0.25 ng/mL 02/14/2021 8:55 AM GIS MAPPING TECHNICIAN [facility] Blood Venipuncture / Unknown 02/14/2021 7:12 AM GIS MAPPING TECHNICIAN 02/14/2021 7:15 AM GIS MAPPING TECHNICIAN Narrative [facility] LABORATORY [facility] - 02/14/2021 8:55 AM GIS MAPPING TECHNICIAN The utility of procalcitonin is limited/NOT recommended in certain populations (e.g. newborns, dialysis/ESRD, patients with recent major surgery/trauma/lin, liver cirrhosis, viral hepatitis, certain cancers, etc.). ??Procalcitonin levels MUST be interpreted in the context of the patient's clinical condition and CANNOT be solely relied upon for diagnosis of infection. <0.25 ng/mL: Bacterial infection unlikely, particularly lower respiratory tract infections. <0.5 ng/mL: Low risk for progression to severe sepsis/septic shock. Localized infection possible. ??Measurements done early (<6 hours) after systemic process starts may still be low. 0.5-2 ng/mL: Moderate risk for progression to severe sepsis/septic shock. ?? >2 ng/mL: High risk for progression to severe sepsis/septic shock. If antibiotics ARE administered, repeat testing is recommended every 2-3 days to help guide antibiotic cessation. ??Once a decrease of 80% or more has occurred from baseline, discontinuation of antibiotics should strongly be considered in clinically stable patients. ?? Procalcitonin is produced in the setting of systemic inflammation, particularly bacterial infections. ??It is detectable within 2-4 hours and peaks within 6-24 hours. Frieda Allison MD CHEMISTRY ORDERABLES [facility] [id number] [address] [place] [address] * (ABNORMAL) D-DIMER (02/14/2021 7:12 AM GIS MAPPING TECHNICIAN) Pathologist [facility] D-DIMER QUANT 1.22(H) <0.42 ug/mL FEU 02/14/2021 7:38 AM GIS [address] TECHNICIAN [facility] LAB[facility]AT[facility] Comment: The DIC reference range is not clearly established in uncomplicated pregnancies. ??Values above the upper limit of the reference range are common from the 31st to 40th week of . ??High negative predictive values for DVT have been reported with the current methodology, as part of a comprehensive medical examination, including risk stratification. Various clinical studies utilizing this method have shown that a result of <0.5 mcg/ml FEU excludes deep vein thrombosis and pulmonary embolism with high sensitivity when used in conjunction with a non-high clinical pre-test probability assessment. Blood Venipuncture / Unknown 02/14/2021 7:12 AM GIS MAPPING TECHNICIAN 02/14/2021 7:15 AM GIS MAPPING TECHNICIAN Frieda Allison MD HEMATOLOGY ORDERABLE S Performing Organization Address City/[facility]/ZIP Co de Phone Number [facility] CLIA# [id number] [address] [place] [address] * POC LACTIC ACID (02/14/2021 3:57 AM GIS MAPPING TECHNICIAN) [facility] LACTIC ACID POC 0.8 <=2.0 mmol/L 02/14/2021 3:57 AM GIS MAPPING TECHNICIAN [facility] LAB[facility]AT[facility] SPECIMEN SOURCE, GASES POC Venous 02/14/2021 3:57 AM GIS MAPPING TECHNICIAN [facility] COMMENT, GASES POC RN/MD NOTIFIED 02/14/2021 3:57 AM GIS MAPPING TECHNICIAN [facility] Blood 02/14/2021 3:57 AM GIS MAPPING TECHNICIAN 02/14/2021 3:58 AM GIS MAPPING TECHNICIAN Gilberto Nettles DO POINT OF CARE TESTIN G Performing Organization Address [facility]/ZIP Co de Phone Number [facility] CLIA# [id number] [address] [place] [address] * (ABNORMAL) BLOOD GAS,(INCL. H+H, LYTES, GLUC) (02/14/2021 3:57 AM GIS MAPPING TECHNICIAN) PH BLOOD POC 7.38 7.32 - 7.43 02/14/2021 3:57 AM [facility] [employer] LABORATORY SERVICES - [facility] PCO2 POC 38 38 - 50 mm Hg 02/14/2021 3:57 AM [facility] [employer] LABORATORY SERVICES - . [facility] PO2 POC 71(H) 25 - 40 mm Hg 02/14/2021 3:57 AM [facility] - [facility] TCO2 (CALC) POC 24 22 - 26 mmol/L 02/14/2021 3:57 AM [facility] - . [facility] HCO3 (CALC) POC 23 22 - 29 mmol/L 02/14/2021 3:57 AM [facility] - [facility] O2 SATURATION POC 96(H) 40 - 70 % 02/14/2021 3:57 AM [facility] - [facility] BASE EXCESS POC -2 No Reference Range Established mmol/L 02/14/2021 3:57 AM [facility] - . [facility] HEMOGLOBIN POC 12.9(L) 13.6 - 16.5 g/dL 02/14/2021 3:57 AM [facility] - . [facility] GLUCOSE POC 159(H) 74 - 99 mg/dL 02/14/2021 3:57 AM [facility] - . [facility] SODIUM POC 141 135 - 145 mmol/L 02/14/2021 3:57 AM [facility] - . [facility] POTASSIUM POC 4.4 3.5 - 4.9 mmol/L 02/14/2021 3:57 AM [facility]. [facility] CALCIUM IONIZED POC 4.5(L) 4.8 - 5.2 mg/dL 02/14/2021 3:57 AM [facility] - . [facility] PH TEMP CORRECT 7.38 7.32 - 7.43 02/14/2021 3:57 AM [facility]. [facility] PCO2 TEMP CORRECT 38 38 - 50 mm Hg 02/14/2021 3:57 AM [facility] SERVICES [facility]. [facility] PO2 TEMP CORRECT 71(H) 25 - 40 mm Hg 02/14/2021 3:57 AM GIS MAPPING TECHNICIAN [facility] LABORATORY SERVICES - [facility] SPECIMEN SOURCE, GASES POC Venous 02/14/2021 3:57 AM GIS MAPPING TECHNICIAN [facility] LABORATORY SERVICES - [facility] PATIENT'S TEMPERATURE POC 37.0 degrees 02/14/2021 3:57 AM GIS MAPPING TECHNICIAN [facility] LABORATORY SERVICES - [facility] COMMENT, GASES POC RN/MD NOTIFIED 02/14/2021 3:57 AM GIS MAPPING TECHNICIAN [facility] LABORATORY SERVICES - [facility] Blood, arterial 02/14/2021 3 :57 AM GIS MAPPING TECHNICIAN 02/14/2021 3:58 AM GIS MAPPING TECHNICIAN Gilberto Nettles DO ABG ORDERABLES Performing Organization Address [facility]/ZIP Co de Phone Number [facility] CLIA# [id number] [address] [place] [address] * (ABNORMAL) POC GLUCOSE (02/14/2021 3:48 AM GIS MAPPING TECHNICIAN) [facility] GLUCOSE POC 148(H) 74 - 99 mg/dL 02/14/2021 3:48 AM GIS MAPPING TECHNICIAN [facility] LABORATORY SERVICES - [facility] SPECIMEN SOURCE, GLUCOSE POC Whole Blood 02/14/2021 3:48 AM [facility] LABORATORY [facility] Blood, whole 02/14/2021 3:48 AM GIS MAPPING TECHNICIAN 02/14/2021 3:59 AM GIS MAPPING TECHNICIAN Gilberto Nettles DO POINT OF CARE TESTIN G Performing Organization Address City/[facility]/ZIP Co de Phone Number [facility] CLIA# [id number] [address] [place] [address] * XR CHEST PA OR AP 1 VW (02/13/2021 10:47 PM GIS MAPPING TECHNICIAN) Anatomical Region Laterality Modality Chest Computed Radiogr aphy 02/13/2021 10:4 8 PM GIS MAPPING TECHNICIAN Impressions 02/13/2021 10:54 PM GIS MAPPING TECHNICIAN IMPRESSION: Small lung volumes with perihilar and left retrocardiac airspace opacities, concerning for pneumonia. DICTATION LOCATION: Location - [facility] Narrative 02/13/2021 10:54 PM GIS MAPPING TECHNICIAN PORTABLE AP VIEW OF THE CHEST ?? DATE: 02/13/2021 10:47 PM HISTORY: Shortness of Breath SOB. COMPARISON: None available FINDINGS: ?? Lung volumes are small. There are perihilar opacities and left retrocardiac airspace opacities. No pneumothorax. No pleural effusion. The cardiac and mediastinal silhouettes are normal. ?? Procedure Note Juany Vela MD - 02/13/2021 PORTABLE AP VIEW OF THE CHEST DATE: 02/13/2021 10:47 PM HISTORY: Shortness of Breath SOB. COMPARISON: None available FINDINGS: Lung volumes are small. There are perihilar opacities and left retrocardiac airspace opacities. No pneumothorax. No pleural effusion. The cardiac and mediastinal silhouettes are normal. IMPRESSION: Small lung volumes with perihilar and left retrocardiac airspace opacities, concerning for pneumonia. DICTATION LOCATION: Location [address] [place] [address] Bulmaro Hoff MD DIAGNOSTIC IMAGING O RDERABLES * (ABNORMAL) C-REACTIVE PROTEIN (02/13/2021 8:42 PM GIS MAPPING TECHNICIAN) CRP 62.7(H) <5.0 mg/L 02/14/2021 12:29 AM [address] TECHNICIAN [facility] Blood Venipuncture / Unknown 02/13/2021 8:42 PM GIS MAPPING TECHNICIAN 02/13/2021 9:01 PM GIS MAPPING TECHNICIAN Frieda Allison MD CHEMISTRY ORDERABLES [facility] [id number] [address] [address] * EXTRA TUBE (RED) (02/13/2021 8:42 PM GIS MAPPING TECHNICIAN) Blood Venipuncture / Unknown 02/13/2021 8:42 PM GIS MAPPING TECHNICIAN 02/13/2021 9:01 PM GIS MAPPING TECHNICIAN Bulmaro Hoff MD CHEMISTRY ORDERABLES [facility] LABORATORY SERVICES - [facility]# [id number] [address] [place] [address] * (ABNORMAL) COMPREHENSIVE METABOLIC PANEL (02/13/2021 8:42 PM GIS MAPPING TECHNICIAN) SODIUM 146(H) 136 - 145 mmol/L 02/13/2021 11:15 PM [facility] LABORATORY SERVICES - [facility] POTASSIUM 3.8 3.5 - 5.0 mmol/L 02/13/2021 11:15 PM [facility] LABORATORY SERVICES - [facility] CHLORIDE 113(H) 98 - 107 mmol/L 02/13/2021 11:15 PM [facility] LABORATORY SERVICES - [facility] CO2 19(L) 22 - 29 mmol/L 02/13/2021 11:15 PM [facility] LABORATORY SERVICES - [facility] CALCIUM 8.5(L) 8.6 - 10.2 mg/dL 02/13/2021 11:15 PM [facility] LABORATORY SERVICES - [facility] BUN 20 6 - 20 mg/dL 02/13/2021 11:15 PM [facility] LABORATORY SERVICES - [facility] CREATININE 0.95 0.67 - 1.17 mg/dL 02/13/2021 11:15 PM [facility] LABORATORY SERVICES - [facility] GLUCOSE 89 74 - 99 mg/dL 02/13/2021 11:15 PM [facility] LABORATORY SERVICES - [facility] TOTAL PROTEIN 7.3 6.7 - 8.6 g/dL 02/13/2021 11:15 PM [facility] LABORATORY SERVICES - [facility] ALBUMIN 3.9 3.5 - 5.2 g/dL 02/13/2021 11:15 PM [facility] [employer] LABORATORY SERVICES - [facility] BILIRUBIN TOTAL 0.4 0.3 - 1.2 mg/dL 02/13/2021 11:15 PM [facility] LABORATORY SERVICES - [facility] ALKALINE PHOSPHATASE 123 40 - 129 U/L 02/13/2021 11:15 PM [facility] [employer] LABORATORY SERVICES - [facility] AST 28 <41 U/L 02/13/2021 11:15 PM [facility] ALT 28 <42 U/L 02/13/2021 11:15 PM [facility] GFR >60 mL/min/1.7 3 sq meter 02/13/2021 11:15 PM [facility] Comment: eGFR has not been validated for use in the elderly (> 70 years of age), women, patients with serious co-morbid conditions, or persons with extremes of body size or muscle mass and should also be interpreted with caution in patients with acute kidney failure, dialysis dependent patients, patients reporting exceptional dietary intake (e.g. vegetarian diet, high protein diets, creatine supplementation), and patients with severe liver disease. Based on National Kidney Disease Education Program If patient is , please refer to the GFR result. GFR, >60 mL/min/1.7 3 sq meter 02/13/2021 11:15 PM [facility] ANION GAP 14 8 - 16 mmol/L 02/13/2021 11:15 PM [facility] Blood Venipuncture / Unknown 02/13/2021 8:42 PM GIS MAPPING TECHNICIAN 02/13/2021 9:01 PM [facility] - 02/13/2021 11:15 PM GIS MAPPING TECHNICIAN Samples containing indocyanine green cause interferences on Total and/or Direct Bilirubin and must not be measured. Bulmaro Hoff MD CHEMISTRY ORDERABLES Performing Organization Address City/State/[facility] Co de Phone Number [facility]# [id number] [address] [place], [place] [address] [address] * (ABNORMAL) CBC WITH DIFFERENTIAL (02/13/2021 8:42 PM GIS MAPPING TECHNICIAN) WBC 4.2 4.0 - 9.8 K/uL 02/13/2021 9:10 PM [facility] RBC 3.87(L) 4.50 - 5.40 M/uL 02/13/2021 9:10 PM [facility] HEMOGLOBIN 12.3(L) 13.6 - 16.5 g/dL 02/13/2021 9:10 PM GIS MAPPING TECHNICIAN [facility] HEMATOCRIT 36.9(L) 40.0 - 48.0 % 02/13/2021 9:10 PM GIS MAPPING TECHNICIAN [facility] - . [facility] MCV 95.3 82.0 - 99.0 fL 02/13/2021 9:10 PM GIS MAPPING TECHNICIAN [facility] LABORATORY SERVICES - [facility] MCH 31.8 27.2 - 32.6 pg 02/13/2021 9:10 PM GIS MAPPING TECHNICIAN [facility] - [facility] MCHC 33.3 31.5 - 35.5 g/dL 02/13/2021 9:10 PM GIS MAPPING TECHNICIAN [facility] - [facility] RDW 12.8 11.5 - 14.5 % 02/13/2021 9:10 PM GIS MAPPING TECHNICIAN [facility] - [facility] RDW-STDEV 44.3 37.1 - 48.7 fL 02/13/2021 9:10 PM GIS MAPPING TECHNICIAN [facility] LABOR[facility] PLATELETS 128(L) 140 - 350 K/uL 02/13/2021 9:10 PM GIS MAPPING TECHNICIAN [facility] MPV 9.1(L) 9.3 - 12.4 fL 02/13/2021 9:10 PM GIS MAPPING TECHNICIAN [facility] NEUTROPHILS 54 % 02/13/2021 9:10 PM GIS MAPPING TECHNICIAN [facility] LYMPHOCYTES 34 % 02/13/2021 9:10 PM GIS MAPPING TECHNICIAN [facility] MONOCYTES 12 % 02/13/2021 9:10 PM GIS MAPPING TECHNICIAN [facility] EOSINOPHILS 0 % 02/13/2021 9:10 PM GIS MAPPING TECHNICIAN [facility] BASOPHILS 0 % 02/13/2021 9:10 PM GIS MAPPING TECHNICIAN [facility] IMMATURE GRANULOCYTES 0 % 02/13/2021 9:10 PM GIS MAPPING TECHNICIAN [facility] NEUTROPHIL ABSOLUTE 2.29 1.90 - 7.00 K/uL 02/13/2021 9:10 PM GIS MAPPING TECHNICIAN [facility] - . [facility] LYMPHOCYTE ABSOLUTE 1.43 0.70 - 4.50 K/uL 02/13/2021 9:10 PM GIS MAPPING TECHNICIAN [facility] - . [facility] MONOCYTE ABSOLUTE 0.50 0.10 - 1.30 K/uL 02/13/2021 9:10 PM GIS MAPPING TECHNICIAN [facility] - . [facility] EOSINOPHIL ABSOLUTE 0.00 0.00 - 0.70 K/uL 02/13/2021 9:10 PM GIS MAPPING TECHNICIAN [facility] - . [facility] BASOPHILS ABSOLUTE 0.01 0.00 - 0.20 K/uL 02/13/2021 9:10 PM [facility] - . [facility] IMMATURE GRANULOCYTES ABSOLUTE 0.01 0.00 - 0.03 K/uL 02/13/2021 9:10 PM [facility] Blood Venipuncture / Unknown 02/13/2021 8:42 PM GIS MAPPING TECHNICIAN 02/13/2021 9:01 PM GIS MAPPING TECHNICIAN Bulmaro Hoff MD HEMATOLOGY ORDERABLE S [facility] CLIA# [id number] [address] [place] [id number] * RSV, PCR DETECTION (02/13/2021 5:07 PM GIS MAPPING TECHNICIAN) Pathologist [facility] RSV by PCR NOT DETECTED Not Detected 02/13/2021 6:14 PM [facility] Upper Respiratory ENTIRE NASOPHARYNX / Unknown Collection / Unknown 02/13/2021 5:07 PM GIS MAPPING TECHNICIAN 02/13/2021 5:12 PM GIS MAPPING TECHNICIAN Bulmaro Hoff MD MICRO - GEN ORDERABL ES COM [facility] CLIA# [id number] [address] [place] [address] * (ABNORMAL) INFLUENZA A/B AND COVID-19 PCR PANEL (02/13/2021 5:07 PM GIS MAPPING TECHNICIAN) Pathologist [facility] Influenza A by PCR NOT DETECTED Not Detected 02/13/2021 6:22 PM [facility] Influenza B by PCR NOT DETECTED Not Detected 02/13/2021 6:22 PM [facility] COVID-19 PCR DETECTED(A) Not Detected 6:22 PM [facility] Upper Respiratory ENTIRE NASOPHARYNX / Unknown Collection / Unknown 02/13/2021 5:07 PM GIS MAPPING TECHNICIAN 02/13/2021 5:12 PM GIS MAPPING TECHNICIAN Narrative [facility] - 02/13/2021 6:22 PM GIS MAPPING TECHNICIAN This test has been authorized by the FDA under an Emergency Use Authorization for use by authorized laboratories. ??This test has been validated in accordance with the FDA's guidance regarding Coronavirus Disease-2019 testing. ??Optimum specimen types and timing for peak viral levels during infection have not been determined. ??A negative RT-PCR result does not rule out infection with the 2019-Novel Coronavirus. Bulmaro Hoff MD 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 - [facility] ORDERABLES [facility]# [id number] [address] [facility] [place] [address] * Critical Care (02/13/2021 4:27 PM GIS MAPPING TECHNICIAN) Narrative Bulmaro Hoff MD - 02/13/2021 4:27 PM GIS MAPPING TECHNICIAN Bulmaro Hoff MD ? 02/14/2021 ??1:04 AM Critical Care Performed by: Bulmaro Hoff MD Authorized by: Bulmaro Hoff MD Critical care provider statement: ??Critical care time (minutes): ??40 ??Critical care was necessary to treat or prevent imminent or life-threatening deterioration of the following conditions: ??Respiratory failure ??Critical care was time spent personally by me on the following activities: ??Ordering and performing treatments and interventions, ordering and review of laboratory studies, ordering and review of radiographic studies, pulse oximetry, re-evaluation of patient's condition, review of old charts, obtaining history from patient or surrogate, examination of patient, evaluation of patient's response to treatment, discussions with consultants and development of treatment plan with patient or surrogate Bulmaro Hoff MD PROCEDURE/MINOR SURG ICAL ORDERABLES documented in this encounter Visit Diagnoses Diagnosis Pneumonia due to COVID-19 virus- Primary Pneumonia due to COVID-19 virus Acute respiratory failure with hypoxia Acute respiratory failure Seizure disorder Unspecified epilepsy without mention of intractable epilepsy 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 Development delay Unspecified delay in development Autism Autistic disorder, current or active state Intractable [place]-Gastaut syndrome Autism Autistic disorder, current or active state Hypernatremia Hyperosmolality and/or hypernatremia Thrombocytopenia Thrombocytopenia, unspecified documented in this encounter Administered Medications Inactive Administered Medications - up to 3 most recent administrations Medication Order MAR Action Action Date Dose Rate Site acetaminophen (TYLENOL) tablet 650 mg 650 mg, Oral, EVERY 4 HOURS PRN, Starting on Sat02/14/21 at 0203, Until Sat03/02/21 at 1609, Pain, Routine busPIRone (BUSPAR) tablet 10 mg 10 mg, Oral, THREE TIMES DAILY, First dose on Sat02/14/21 at 1000, Until Discontinued, Routine Given 03/02/2021 12:56 PM GIS MAPPING TECHNICIAN 10 mg Given 03/02/2021 9:53 AM GIS MAPPING TECHNICIAN 10 mg Given 03/01/2021 7:21 PM GIS MAPPING TECHNICIAN 10 mg cloBAZam (ONFI) tablet 40 mg 40 mg, Oral, DAILY AT BEDTIME, First dose on Sat02/14/21 at 2100, Until Discontinued, Previous Med: CLOBAZAM ORAL - Orig Sig - Take 40 mg by mouth daily at bedtime . Given 03/01/2021 8:35 PM GIS MAPPING TECHNICIAN 40 mg Given 02/28/2021 9:37 PM GIS MAPPING TECHNICIAN 40 mg Given 02/27/2021 9:10 PM GIS MAPPING TECHNICIAN 40 mg cloNIDine HCL (CATAPRES) tablet 0.1 mg 0.1 mg, Oral, DAILY AT BEDTIME, First dose (after last modification) on Sat02/15/21 at 2000, Until Discontinued, Routine, On hold since Sat02/16/2021 at 1329 until manually unheld Given 02/15/2021 10:26 PM GIS MAPPING TECHNICIAN 0.1 mg cloNIDine HCL (CATAPRES) tablet 0.3 mg 0.3 mg, Oral, DAILY AT BEDTIME, First dose on Sat02/14/21 at 2000, Until Discontinued, Routine Given 02/14/2021 9:33 PM GIS MAPPING TECHNICIAN 0.3 mg dexamethasone (DECADRON) injection 6 mg 6 mg, IV, ONE TIME ONLY, 1 dose, On Sat02/13/21 at 2245, Routine Given 02/13/2021 10:46 PM GIS MAPPING TECHNICIAN 6 mg Hand, Right dexamethasone (DECADRON) injection 6 mg 6 mg, IV, DAILY, 9 doses, First dose (after last reorder) on Sat02/14/21 at 0900, Last dose on Sat02/22/21 at 0900, Routine Given 02/22/2021 9:31 AM GIS MAPPING TECHNICIAN 6 mg Given 02/21/2021 9:00 AM GIS MAPPING TECHNICIAN 6 mg Given 02/20/2021 10:43 AM GIS MAPPING TECHNICIAN 6 mg dextrose 5% - sodium chloride 0.9% infusion IV, at 100 mL/hr, CONTINUOUS, Starting on Sat02/20/21 at 1800, Until Sat02/21/21 at 0359, Routine New Bag 02/20/2021 6:38 PM GIS MAPPING TECHNICIAN 100 mL/hr enoxaparin (LOVENOX) injection 40 mg 40 mg, subCUT, EVERY 24 HOURS, First dose on Sat02/14/21 at 0900, Until Discontinued, Routine, Indication: Prophylaxis of VTE, Dose to be adjusted per facility protocol? Yes Given 03/02/2021 9:54 AM GIS MAPPING TECHNICIAN 40 mg Abdomen, Left Lower Quadrant Given 02/27/2021 9:02 AM GIS MAPPING TECHNICIAN 40 mg Ab domen, Left Lower Quadrant Given 02/26/2021 11:22 AM GIS MAPPING TECHNICIAN 40 mg A rm, Right Upper guaiFENesin (ROBITUSSIN) 100 mg/5 mL oral solution 200 mg 200 mg, Oral, EVERY 4 HOURS PRN, Starting on Sat02/14/21 at 0203, Until Sat03/02/21 at 1609, Cough, Routine lacosamide (VIMPAT) tablet 200 mg 200 mg, Oral, TWO TIMES DAILY, First dose on Sat02/14/21 at 1100, Until Discontinued, Routine Given 03/02/2021 12:55 PM GIS MAPPING TECHNICIAN 200 mg Given 03/01/2021 10:50 PM GIS MAPPING TECHNICIAN 200 mg Given 03/01/2021 9:44 AM GIS MAPPING TECHNICIAN 200 mg lamoTRIgine (LaMICtal) tablet 300 mg 300 mg, Oral, THREE TIMES DAILY, First dose on Sat02/14/21 at 1300, Until Discontinued, Routine Given 03/02/2021 12:55 PM GIS MAPPING TECHNICIAN 300 mg Given 03/02/2021 9:53 AM GIS MAPPING TECHNICIAN 300 mg Given 03/01/2021 7:20 PM GIS MAPPING TECHNICIAN 300 mg loratadine (CLARITIN) tablet 10 mg 10 mg, Oral, DAILY, First dose on Sat02/14/21 at 1000, Until Discontinued, Routine Given 03/02/2021 9:54 AM GIS MAPPING TECHNICIAN 10 mg Given 03/01/2021 9:44 AM GIS MAPPING TECHNICIAN 10 mg Given 02/28/2021 10:09 AM GIS MAPPING TECHNICIAN 10 mg naloxone (NARCAN) 0.4 mg/mL injection 0.1 mg 0.1 mg, IV, SEE ADMIN INSTRUCTIONS, Starting on Sat02/14/21 at 0208, Until Sat03/02/21 at 1609, Routine propranoloL (INDERAL LA) SR 24 hour capsule 160 mg 160 mg, Oral, DAILY, First dose on Sat02/14/21 at 1000, Until Discontinued, Routine, On hold since Sat02/15/2021 at 1559 until manually unheld Given 02/14/2021 11:09 AM GIS MAPPING TECHNICIAN 160 mg remdesivir (VEKLURY) 100 mg in sodium chloride 0.9% 250 mL IVPB 100 mg, IV, EVERY 24 HOURS, 4 doses, First dose on Sat02/15/21 at 1300, Last dose on Sat02/18/21 at 1300, Routine New Bag 02/16/2021 2:31 PM GIS MAPPING TECHNICIAN 100 mg 250 mL/hr New Bag 02/15/2021 4:27 PM GIS MAPPING TECHNICIAN 100 mg 250 mL/hr remdesivir (VEKLURY) 200 mg in sodium chloride 0.9% 250 mL IVPB 200 mg, IV, ONE TIME ONLY, 1 dose, On Sat02/14/21 at 1300, Routine New Bag 02/14/2021 2:15 PM GIS MAPPING TECHNICIAN 200 mg 250 mL/hr sennosides-docusate sodium (SENNA-S) 8.6-50 mg per tablet 2 Tablet 2 Tablet, Oral, TWO TIMES DAILY, First dose on Sat02/17/21 at 0900, Until Discontinued, Routine Given 03/02/2021 9:54 AM GIS MAPPING TECHNICIAN 2 Tablets Given 03/01/2021 8:31 PM GIS MAPPING TECHNICIAN 2 Tablets Given 03/01/2021 9:43 AM GIS MAPPING TECHNICIAN 2 Tablets Zonisamide (ZONEGRAN) capsule 400 mg 400 mg, Oral, TWO TIMES DAILY, First dose on Sat02/14/21 at 1000, Until Discontinued, Routine Given 03/02/2021 9:53 AM GIS MAPPING TECHNICIAN 400 mg Given 03/01/2021 8:30 PM GIS MAPPING TECHNICIAN 400 mg Given 03/01/2021 9:43 AM GIS MAPPING TECHNICIAN 400 mg documented in this encounter Active and Recently Administered Medications Times are shown in GIS MAPPING TECHNICIAN. Scheduled Medication Order 02/28/2021 03/01/2021 03/02/2021 busPIRone (BUSPAR) tablet 10 mg 10 mg, Oral, THREE TIMES DAILY, First dose on Sat02/14/21 at 1000, Until Discontinued, Routine 1009 (Given - Provider: Sheila Whitten, MAURO)1334 (Given - Provider: Sheila Whitten, RN)1999 (Given - Provider: Nael Acuna RN) 0944 (Given - Provider: Sheila Whitten RN)141 (Given - Provider: Sheila Whitten RN)192 (Given - Provider: Billie Foreman RN) 0953 (Given - Provider: Damaris Bull RN)1256 (Given - Provider: Damaris Bull RN) cloBAZam (ONFI) tablet 40 mg 40 mg, Oral, DAILY AT BEDTIME, First dose on Sat02/14/21 at 2100, Until Discontinued, Previous Med: CLOBAZAM ORAL - Orig Sig - Take 40 mg by mouth daily at bedtime . 2136 (Given - Provider: Nael Acuna RN) 2034 (Given - Provider: Val Ross, MAURO) cloNIDine HCL (CATAPRES) tablet 0.1 mg 0.1 mg, Oral, DAILY AT BEDTIME, First dose (after last modification) on Sat02/15/21 at 2000, Until Discontinued, Routine, On hold since Emily 02/16/2021 at 1329 until manually unheld 1999 (Automatically Held - Provider: Diane Mejia MD) 1999 (Automatically Held - Provider: Diane Mejia MD) 1609 (Order Unhold - Provider: PROVIDER, DISCHARGE PATIENT) enoxaparin (LOVENOX) injection 40 mg 40 mg, subCUT, EVERY 24 HOURS, First dose on Sat02/14/21 at 0900, Until Discontinued, Routine, Indication: Prophylaxis of VTE, Dose to be adjusted per facility protocol? Yes 0900 (Not Given - Provider: Sheila Whitten RN - Reason: Other - See Comment - Comment: Pt would not cooperate for the shot) 0900 (Not Given - Provider: Sheila Whitten RN - Reason: Other - See Comment - Comment: Pt not cooperative this morning) 0954 (Given - Provider: Damaris uBll, MAURO) lacosamide (VIMPAT) tablet 200 mg 200 mg, Oral, TWO TIMES DAILY, First dose on Sat02/14/21 at 1100, Until Discontinued, Routine 1008 (Given - Provider: Sheila Whitten RN)2137 (Given - Provider: Nael Acuna RN) 0944 (Given - Provider: Sheila Whitten RN)2250 (Given - Provider: Val Ross RN) 1255 (Given - Provider: Damaris Bull RN) lamoTRIgine (LaMICtal) tablet 300 mg 300 mg, Oral, THREE TIMES DAILY, First dose on Sat02/14/21 at 1300, Until Discontinued, Routine 1009 (Given - Provider: Sheila Whitten RN)1334 (Given - Provider: Sheila Whitten RN)2000 (Given - Provider: Nael Acuna RN) 0944 (Given - Provider: Sheila Whitten RN)1411 (Given - Provider: Sheila Whitten RN)1920 (Given - Provider: Billie Foreman RN) 0953 (Given - Provider: Damaris Bull RN)1255 (Given - Provider: Damaris Bull RN) loratadine (CLARITIN) tablet 10 mg 10 mg, Oral, DAILY, First dose on Sat02/14/21 at 1000, Until Discontinued, Routine 1009 (Given - Provider: Sheila Whitten RN) 0944 (Given - Provider: Sheila Whitten RN) 0954 (Given - Provider: Damaris Bull RN) naloxone (NARCAN) 0.4 mg/mL injection 0.1 mg 0.1 mg, IV, SEE ADMIN INSTRUCTIONS, Starting on Sat02/14/21 at 0208, Until Sat03/02/21 at 1609, Routine propranoloL (INDERAL LA) SR 24 hour capsule 160 mg 160 mg, Oral, DAILY, First dose on Sat02/14/21 at 1000, Until Discontinued, Routine, On hold since Sat02/15/2021 at 1559 until manually unheld 0900 (Automatically Held - Provider: Diane Mejia MD) 0900 (Automatically Held - Provider: Diane Mejia MD) 0900 (Automatically Held - Provider: Diane Mejia MD)1609 (Order Unhold - Provider: PROVIDER, DISCHARGE PATIENT) sennosides-docusate sodium (SENNA-S) 8.6-50 mg per tablet 2 Tablet 2 Tablet, Oral, TWO TIMES DAILY, First dose on Sat02/17/21 at 0900, Until Discontinued, Routine 1009 (Given - Provider: Sheila Whitten RN)213 (Given - Provider: Nael Acuna RN) 0943 (Given - Provider: Sheila Whitten, MAURO)2030 (Given - Provider: Val Ross RN) 0954 (Given - Provider: Damaris Bull, MAURO) Zonisamide (ZONEGRAN) capsule 400 mg 400 mg, Oral, TWO TIMES DAILY, First dose on Sat02/14/21 at 1000, Until Discontinued, Routine 1009 (Given - Provider: Sheila Whitten RN)1999 (Given - Provider: Nael Acuna, MAURO) 0943 (Given - Provider: Sheila Whitten RN)2030 (Given - Provider: Val Ross, MAURO) 0953 (Given - Provider: Damaris Bull, MAURO) PRN Medication Order 02/28/2021 03/01/2021 03/02/2021 acetaminophen (TYLENOL) tablet 650 mg 650 mg, Oral, EVERY 4 HOURS PRN, Starting on Sat02/14/21 at 0203, Until Emily 03/02/21 at 1609, Pain, Routine guaiFENesin (ROBITUSSIN) 100 mg/5 mL oral solution 200 mg 200 mg, Oral, EVERY 4 HOURS PRN, Starting on Sat02/14/21 at 0203, Until Emily 03/02/21 at 1609, Cough, Routine documented in this encounter Additional Health Concerns Infection Onset Date Last Indicated Resolved Time COVID-19 Comment:Meets CDC guidelines to resolve COVID. MD aware. 02/13/2021 02/13/2021 02/23/2021 8:48 AM Maureen HORNE documented as of this encounter Care Teams Treasury Consultant Relationship Specialty Start Date End Date Gulshan Mena DO [address] [place] [address] PCP - General 01/26/15 documented as of this encounter
--- OUTSIDE RECORDS SUMMARY | 2024-02-12 05:14 | XMS_ITS | Encounter Summary ---
Author Organization [facility] Address [address] Attn: [place] [address] Care Team Providers Care Exhibits Coordinator Name Role Phone Gulshan Mena DO Primary Care Provider [phone] Encounter Details Date Type Department Care Team (Latest Contact Info) Description 06/06/2023 Travel Social History Tobacco Use Types Packs/Day Years Used Date Smoking Tobacco: Never Smokeless Tobacco: Never Alcohol Use Standard Drinks/Week Comments No 0 (1 standard drink = 0.6 oz pur e alcohol) Feeling Safe Answer Date Recorded Are you in a relationship wi th someone who hurts you emotionally and/or physically? Patient unable to answer 06/06/2023 Sex and Gender Information Value Date Recorded Sex Assigned at Not on file Gender Identity Not on file Sexual Orientation Not on file documented as of this encounter Plan of Treatment Not on file documented as of this encounter Visit Diagnoses Not on filedocumented in this encounter Care Teams Exhibits Coordinator Relationship Specialty Start Date End Date Gulshan Mena DO [address] [place] [id number] PCP - General 01/26/15 documented as of this encounter
--- OUTSIDE RECORDS SUMMARY | 2024-02-12 05:14 | XMS_ITS | Encounter Summary ---
Author Organization [employer] Address [address] [place] [address] Care Team Providers Care Clean Rice Broker Name Role Phone Gulshan Mena DO Primary Care Provider [phone] Encounter Details Date Type Department Care Team (Late st Contact Info) Description 03/29/2023 External Device Data [facility] ABSTRACTION Provider, Abstract [...] on filedocumented in this encounter Care Teams Clean Rice Broker Relationship Specialty Start Date End Date Gulshan Mena DO [address] [place] [id number] PCP - General 01/26/15 documented as of this encounter
--- OUTSIDE RECORDS SUMMARY | 2024-02-12 05:14 | XMS_ITS | Encounter Summary ---
Author Organization [employer] Address [address] [place] [address] Care Team Providers Care Centrifugal Chiller Technician Name Role Phone Gulshan Mena DO Primary Care Provider [phone] Encounter Details Date Type Department Care Team (Late st Contact Info) Description 06/11/2023 External Device Data [facility] ABSTRACTION Provider, Abstract [...] on filedocumented in this encounter Care Teams Centrifugal Chiller Technician Relationship Specialty Start Date End Date Gulshan Mena DO [facility] [address] [place] [phone] PCP - General 01/26/15 documented as of this encounter
--- OUTSIDE RECORDS SUMMARY | 2024-02-12 05:14 | XMS_ITS | Encounter Summary ---
Author Organization [facility] Address [address] [place] [address] Care Team Providers Care Bond Clerk Name Role Phone Gulshan Mena DO Primary Care Provider [phone] Reason for Visit * Auth/Cert Specialty Diagnoses / Procedures Referred By Padmini vogt Referred To Contact General Surgery Diagnoses DENTAL CARIES Procedures DENTAL REHABILITATION [facility] Or [address] [place] [address] Referral ID Status Reason Start Date Expiration Date Visits Re quested Visits Authorized [id number] 1 1 Encounter Details Date Type Department Care Team (Late st Contact Info) Description 12/06/2016 7:26 AM CDT Anesthesia Event [facility] Operating Room [address] [place] [address] Monet Lopez MD [address] [place] [address] Anesthesia Record Procedure Summary Procedure Name Responsible Anesthesiologist Anesthesia Start Time Anesthesia Stop Time DENTAL REHABILITATION (Mouth) Monet Lopez MD 12/06/16 0726 12/06/16 0927 Events Date Time Event Comment 12/05/2016 1530 Intended Opioids 12/06/2016 0720 AN Equip Check Anesthesia eq uipment and materials checked in accordance with local policy. 0725 0726 An Start 0728 An Start Data 0730 Pre-Induction Immediate pre- induction anesthetic assessment performed. Vital signs as noted on graphic. 0734 An Induction 0744 An Intubation 0745 Anesthesia Ready 0813 Throat Pack Placed 0903 Throat Pack Removed 0914 An Extubation Emergence unev entful Awake, spontaneous respirations. Adequate muscle strength demonstrated Adequate tidal volume. Orapharynx suctioned. Extubated with positive pressure ventilation. 09 an stop data 09 An Stop 926 Hand-off to Receiving [facility] rahul Post-Anesthetic transfer of care report elements to appropriate post-anesthesia recovery environment completed in accordance with procedure. Meds Name Total propofol (DIPRIVAN) 10??mg/mL injection 100 mg rocuronium (ZEMURON) 10 mg/mL 5 mL injec tion 30 mg midazolam PF (VERSED) 1 mg/mL injection 2 mg fentaNYL (SUBLIMAZE) PF 50??mcg/mL injec tion 50 mcg ondansetron (ZOFRAN) 4??mg/2 mL injectio n 4 mg lidocaine (XYLOCAINE) 2% syringe 5 mL oxymetazoline (AFRIN) 0.05% nasal spray 2 [place] famotidine PF (PEPCID) 20mg/2 mL injecti on 20 mg dexamethasone (DECADRON) 4 mg/mL injecti on 4 mg neostigmine (PROSTIGMINE) 4 mg/4 mL (1 m g/mL) injection 2 mg glycopyrrolate (ROBINUL) 0.4 mg/2 mL (0. 2 mg/mL) syringe 0.4 mg lactated Ringers solution 1,000 mL * Agents Name Air Sevoflurane % Desflurane % Sevoflurane Desflurane O2 N2O Inspired N2O O2 * Blood No blood administrations on file. Lines, Drains, and Airways Type Details Placement Removal Wound 10/27/13; No; 2; Lef t:, anterior; neck; surgical; 02/15/21 10/27/13 0000 by Shayla Morocho RN 02/15/21 0000 by Ursula Hardin RN Wound 10/20/14; No; 1; upp er, lower; gum; surgical; 02/15/21 10/20/14 0000 by Chip Steve RN 02/15/21 0000 by Ursula Hardin RN Peripheral IV Orientation: Inner, Lower; Location: Wrist; Device: Angiocath; Gauge: 22 gauge; Needle Length: 1.25 in length; Insertion Attempts: 1 (Charline); Patient Tolerance: tolerated well; Pain Prevention: intradermal injection; Removal Indication: no longer indicated; Removal Interventions: direct pressure, catheter intact 12/06/16 0713 by Flor Basilio RN 12/06/16 1141 by Damaris Wright RN Peripheral IV Pre-Hospital Start: No; Orientation: Right; Location: Hand; Device: Angiocath; Gauge: 20 gauge; Needle Length: 1.25 in length; Patient Tolerance: tolerated well; Pain Prevention: (under GA); Removal Indication: no longer indicated; Removal Interventions: direct pressure, catheter intact 12/06/16 0736 by Demetrio Lujan AA-C 12/06/16 1141 by Damaris Wright RN Endotracheal Airway Type: NT Tube, ETT; Cuff Pressure: minimal leak technique, minimal occluding volume, cuff inflated; Size: 7; Site: right nostril; Attempts: 2 (first attempt by AA student ); FOV: I (right nare dilated with 8.0 nasal trumpet. ); cm: 25; Device: Straight Blade; Blade: 2; Secured: secured with tape; Verification: Auscultated bilateral breath sounds, Equal chest movement, Continuous waveform capnography 12/06/16 0744 by Demetrio Lujan AA-C 12/06/16 0914 by Demetrio Lujan AA-C Wound 12/06/16; 0904; No; 1; gum; surgical; 02/15/21 12/06/16 0904 by Kasey Lee RN 02/15/21 0000 by Ursula Hardin RN documented in this encounter Social History [...] OR Notes * Anesthesia Postprocedure Evaluation - Monet Lopez MD - 12/06/2016 9:50 AM CDT Post Anesthesia Evaluation Vitals: BP 124/79 Pulse (!) 54 Temp 36.2 ??C (Temporal) Resp 19 Ht 5' 8 (1.727 m) Wt 86.2 kg (190 lb) SpO2 100% BMI 28.89 kg/m?? Pain Rating: Nausea/Vomiting: no nausea and no vomiting Post-Op hydration: well hydrated Respiratory function: no respiratory symptoms Airway patency: normal Cardiovascular function: Normal - Regular rate and rhythm Mental status, LOC: 0=alert; keenly responsive Patient participated in evaluation: yes Unanticipated Events: no Monet Lopez MD * Anesthesia Handoff - Demetrio Lujan AA-C - 12/06/2016 9:27 AM CDT Post-Anesthetic transfer of care report [...] 6. Set expectations for post-procedure period 7. Allowed opportunity for questions and acknowledgement of understanding. Vital Signs: BP: 133/76 (12/06/2016 9:19 AM) Pulse: 64 (12/06/2016 6:01 AM) Heart Rate: 63 bpm (12/06/2016 9:19 AM) Temp: 36.2 ??C (12/06/2016 9:19 AM) Resp: 15 (12/06/2016 9:19 AM) SpO2: 100 % (12/06/2016 9:19 AM) 9:27 AM TONO Cortez * Anesthesia Preprocedure Evaluation - Monet Lopez MD - 12/06/2016 7:21 AM CDT Relevant Problems No active problems are marked relevant to this note. 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 Anesthesia Plan ASA 3 General Intravenous induction Nasal ETT airway maintenance NPO status > 6 hours Anesthetic plan and risks discussed with Patient and Mother. Plan discussed with Anesthesiologist Gatehouse Attendant. Post-op Pain Control Plan to use IV or IM medication for post-op pain control. documented in this encounter Plan of Treatment Not on file documented as of this encounter Visit Diagnoses Not on filedocumented in this encounter Administered Medications Inactive Administered Medications - up to 3 most recent administrations Medication Order MAR Action Action Date Dose Rate Site dexamethasone (DECADRON) injection INTRA-PROCEDURE PRN, Starting on Emily 12/06/16 at 0754, Until Emily 12/06/16 at 0927, Routine, Anesthesia Intra-op Given 12/06/2016 7:54 AM CDT 4 mg famotidine PF (PEPCID) 20 mg/2 mL injection INTRA-PROCEDURE PRN, Starting on Emily 12/06/16 at 0754, Until Emily 12/06/16 at 0927, Routine, Anesthesia Intra-op Given 12/06/2016 7:54 AM CDT 20 mg fentaNYL PF (SUBLIMAZE) 50 mcg/mL injection INTRA-PROCEDURE PRN, Starting on Emily 12/06/16 at 0730, Until Emily 12/06/16 at 0927, Pain (See admin instructions), Routine, Anesthesia Intra-op Given 12/06/2016 7:30 AM CDT 50 mcg glycopyrrolate (ROBINUL) injection INTRA-PROCEDURE PRN, Starting on Emily 12/06/16 at 0855, Until Emily 12/06/16 at 0927, Routine, Anesthesia Intra-op Given 12/06/2016 8:55 AM CDT 0.4 mg lactated Ringers solution IV, at 150 mL/hr, CONTINUOUS, Starting on Emily 12/06/16 at 0730, Until Emily 12/06/16 at 1347, Routine New Bag 12/06/2016 8:34 AM CDT New Bag 12/06/2016 7:18 AM CDT 150 mL/hr lidocaine (XYLOCAINE) 60 mg/3 mL (2 %) syringe INTRA-PROCEDURE PRN, Starting on Emily 12/06/16 at 0734, Until Emily 12/06/16 at 0927, Routine, Anesthesia Intra-op Given 12/06/2016 7:34 AM CDT 5 mL midazolam (PF) (VERSED) injection INTRA-PROCEDURE PRN, Starting on Emily 12/06/16 at 0726, Until Emily 12/06/16 at 0927, Routine, Anesthesia Intra-op Given 12/06/2016 7:26 AM CDT 2 mg neostigmine (PROSTIGMINE) 4 mg/4 mL (1 mg/mL) injection INTRA-PROCEDURE PRN, Starting on Emily 12/06/16 at 0855, Until Emily 12/06/16 at 0927, Routine, Anesthesia Intra-op Given 12/06/2016 8:55 AM CDT 2 mg ondansetron (ZOFRAN) 4 mg/2 mL injection INTRA-PROCEDURE PRN, Starting on Emily 12/06/16 at 0754, Until Emily 12/06/16 at 0927, Nausea/Emesis, Routine, Anesthesia Intra-op Given 12/06/2016 7:54 AM CDT 4 mg oxymetazoline (AFRIN) 0.05 % nasal spray INTRA-PROCEDURE PRN, Starting on Emily 12/06/16 at 0735, Until Emily 12/06/16 at 09, Routine, Anesthesia Intra-op Given 12/06/2016 7:35 AM CDT 2 Sprays propofol (DIPRIVAN) injection INTRA-PROCEDURE PRN, Starting on Emily 12/06/16 at 0734, Until Emily 12/06/16 at 09, Anesthesia Intra-op Given 12/06/2016 7:34 AM CDT 100 mg rocuronium (ZEMURON) injection INTRA-PROCEDURE PRN, Starting on Emily 12/06/16 at 0734, Until Emily 12/06/16 at 0927, Routine, Anesthesia Intra-op Given 12/06/2016 7:34 AM CDT 30 mg documented in this encounter Care Teams Bond Clerk Relationship Specialty Start Date End Date Gulshan Mena DO [address] [place] [id number] PCP - General 01/26/15 documented as of this encounter
--- OUTSIDE RECORDS SUMMARY | 2024-02-12 05:14 | XMS_ITS | Encounter Summary ---
Author Organization [facility] Address [address] [place] [address] Care Team Providers Care Paint Roller Covermaker Name Role Phone Gulshan Mena DO Primary Care Provider [phone] Reason for Visit * Auth/Cert Specialty Diagnoses / Procedures Referred By Padmini vogt Referred To Contact General Surgery Diagnoses DENTAL CARIES Procedures DENTAL REHABILITATION [facility] [address] [place] [address] Referral ID Status Reason Start Date Expiration Date Visits Re quested Visits Authorized [id number] 1 1 Encounter Details Date Type Department Care Team (Late st Contact Info) Description 12/06/2016 7:15 AM CDT - 12/06/2016 9:45 AM CDT Surgery [facility] Operating Room [address] [place] [address] Dereck Dunbar DDS [address] [facility] [address] [place] [address] DENTAL REHABILITATION Surgery Details Date/Time Status Location OR Service Patient Class Case Class Case Type Trauma Case? 12/06/2016 7:15 AM Posted [facility] OR MAIN OR 26 Oralmaxillofacial Surgical OP/Extende d Care Elective No Panel 1 Procedure LRB Anes Op Region Wound Class Comments DENTAL REHABILITATION N/A General Mouth Clean Co ntaminated-II Surgeon Surgeon Role Service Panel Dereck Dunbar DDS Primary Oralmaxillofacia l 1 Case Notes MEDICAID, REF# [id number], CPT 34060 documented in this encounter Social History Tobacco [...] Sign Reading Time Taken Comments Blood Pressure 124/79 12/06/2016 9:45 AM CDT Pulse 54 12/06/2016 9:45 AM CDT Temperature 36.2 ??C (97.2 ??F) 12/06/2016 9:19 AM CD T Respiratory Rate 19 12/06/2016 9:45 AM CDT Oxygen Saturation 100% 12/06/2016 9:45 AM CDT Inhaled Oxygen Concentration - - [...] or come to the Emergency Room at [facility] ([phone]) or the nearest Emergency Room. In an [...] CDT Operative Note: [facility] [address] [facility], [address] O: F: SURGEON Dr. 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 The patient was transferred from the [facility] to the operating table in [...] BLOOD LOSS Minimal COMPLICATIONS None CONDITION Stable ESPONDENCE SPECIALIST documented in this encounter Miscellaneous Notes * Care Plan - Damaris Wright RN - 12/06/2016 10:27 AM CDT Potential for pain related to surgical/procedural intervention Interventions: Assess level of pain/comfort utilizing verbal/nonverbal pain scales; assess culturalor methodist indicators attached to pain; administer pain medications as prescribed; utilize non-pharmacologic pain control and comfort measures Expected Outcome: Patient demonstrates and reports adequate pain control Outcome Met: no s/s pain * Care Plan - Alla Ortiz RN - 12/06/2016 9:24 AM CDT Potential for pain related to surgical/procedural intervention Interventions: Assess level of pain/comfort utilizing verbal/nonverbal pain scales; assess culturalor methodist indicators attached to pain; administer pain medications [...] CDT DENTAL CARIES Case Notes MEDICAID, REF# [id number], CPT 72419 documented in this encounter Results * TELEMETRY [...] PACU sodium chloride 0.9 % irrigation solution INTRA-PROCEDURE PRN, Starting on Emily 12/06/16 at 0759, Until Emily 12/06/16 at 0918, Routine, Intra-op Given 12/06/2016 7:59 AM CDT 1,000 mL Opera tive Site documented in this encounter Active and [...] PRN) documented in this encounter Care Teams Paint Roller Covermaker Relationship Specialty Start Date End Date Gulshan Mena DO [address] [place] [address] PCP - General 01/26/15 documented as of this encounter
--- OUTSIDE RECORDS SUMMARY | 2024-02-12 05:14 | XMS_ITS | Encounter Summary ---
Author Organization [facility] Address [address] [facility] Attn: Epic Prelude ADT [place] [address] Care Team Providers Care Secretary To Board Of Commissioners Name Role Phone Gulshan Mena DO Primary Care Provider [phone] Encounter Details Date Type Department Care Team (Latest Contact Info) Description 02/09/2022 Travel Social History Tobacco Use Types Packs/Day [...] Coronavirus/COVID-19? No / Unsure 02/09/2022 12:09 PM CALCINER OPERATOR HELPER documented as of this encounter Plan of Treatment Not on file documented as of this encounter Visit Diagnoses Not on filedocumented in this encounter Care Teams Secretary To Board Of Commissioners Relationship Specialty Start Date End Date Gulshan Mena DO [facility] [address] [place] [id number] PCP - General 01/26/15 documented as of this encounter
--- OUTSIDE RECORDS SUMMARY | 2024-02-12 05:14 | XMS_ITS | Encounter Summary ---
Author Organization [facility] Address [address] [place] [address] Care Team Providers Care Pipe Bending Machine Operator Name Role Phone Gulshan Mena DO Primary Care Provider [phone] Reason for Visit * Reason Comments Seizure 38M w/ extensive hx of seizure activity presents to the ED via EMS from a halfway for c/o seizure lasting aprox. 20-30min per halfway staff. Seizing included jerking + eye gazing and a post ictal period. alf staff attempted his typical treatment w/o relief from symptoms in a timely manor. Per EMS, they were told pt was back to baseline upon their arrival. * Auth/Cert (Routine) Specialty Diagnoses / Procedures Referred By Padmini vogt Referred To Contact Emergency Medicine [facility] Emergency Dept [address] [place] [address] Referral ID Status Reason Start Date Expiration Date Visits Re quested Visits Authorized [id number] 1 1 Encounter Details Date Type Department Care Team (Late st Contact Info) Description 06/06/2023 11:56 AM CDT - 06/06/2023 3:[address] [facility] Emergency Department [address] [place] [address] Ying Patterson MD [address] 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 Discharge Disposition: Home or Self Care Social [...] Sign Reading Time Taken Comments Blood Pressure 107/67 06/06/2023 2:31 PM CDT Pulse 67 06/06/2023 2:31 PM CDT Temperature 36.7 ??C (98 ??F) 06/06/2023 2:31 PM CDT Respiratory Rate 16 06/06/2023 2:31 PM CDT Oxygen Saturation 99% 06/06/2023 2:31 PM CDT Inhaled Oxygen Concentration - - Weight 79.4 kg (175 lb) 06/06/2023 12:17 PM CDT Height 170.2 cm (5' 7 ) 06/06/2023 12:17 PM CDT Body Mass Index 27.41 06/06/2023 12:17 PM CDT documented in this encounter Discharge Instructions * Discharge Instructions* Ying Patterson MD - 06/06/2023 2:56 PM CDT Continue home medications as prescribed Call the neurologist to establish short-term outpatient follow-up Return to the ER sooner for any other concerns * Attachments The following attachments cannot be sent through Care Everywhere. * Epilepsy (Citizen Of [place]) documented in this encounter Medications at Time of Discharge Medication Sig Dispensed Refills Start Date End Date diazePAM (Valtoco) 10 mg/spray (0.1 mL) Kevin, Non-Aerosol Administer 10 mg in each nostril [...] as of this encounter ED Notes * Kailey Olea RN - 06/06/2023 3:11 PM CDT Pt's caregiver verbalizes understanding of discharge instructions and need for follow up at this time. This RN transported pt out of ED via wheelchair and assisted pt into vehicle. VS as charted. * Kailey Olea RN - 06/06/2023 2:30 PM CDT CMP hemolyzed - this RN redrew via venipuncture. Specimen collected and sent to lab. Pt remains resting on stretcher at this time. Visitor at bedside. * Suri Escobar RN - 06/06/2023 12:46 PM CDT Chief Complaint Patient presents with Seizure 38M w/ extensive hx of seizure activity presents to the ED via EMS from a halfway for c/o seizure lasting aprox. 20-30min per halfway staff. Seizing included jerking + eye gazing and a post ictal period. alf staff attempted his typical treatment w/o relief from symptoms in a timely manor. Per EMS, they were told pt was back to baseline upon their arrival. This RN wrote and agrees with triage note. Pt is non-verbal, Even unlabored respirations. PWD. Pt connected to continuous cardiac monitoring, NIBP, and pulse ox. IV access obtained, blood drawn and sent to lab. Pt facility fuels sales representative at bedside. * Ying Patterson MD - 06/06/2023 11:54 AM CDT HISTORY OF PRESENT ILLNESS Documented Triage Chief Complaint: seizure 11:54 PM Curt Ryder is a 38 y.o. male with a history of seizure disorder, developmental delay, autism, who presents for seizure. Patient was on his way to day program when he began having a seizure. They gave 2 doses of intranasal diazepam which did not break the seizure within 20 minutes. Seizure lasted 20-30 minutes. Per protocol, patient has to be evaluated at the ED if a seizure lasts longer than 20 minutes. Upon EMS arrival, staff noted the patient appeared to be at baseline. Seen on 04/19/23 for similar. Takes Onfi, Lamictal, zonegran, vimpat. Onset: sudden Severity: moderate Duration: greater than 20 minutes Frequency/Progression: resolved Quality: not specified Radiation: none Modifiers: see above Associated symptoms: see above Primary Care Doctor: Gulshan Mena DO History provided by: A caregiver, the EMS personnel and a healthcare provider Arrived by: EMS Arrived from: Other PAST MEDICAL HISTORY REVIEWED MEDICAL: has a past medical history of ADHD (attention deficit hyperactivity disorder), Adjustment reaction with aggression, Allergic rhinitis, Autism, Constipation, COVID-19 virus detected (02/13/2021), Developmental delay disorder, Mayo- Gastaut syndrome, Other general symptoms(780.99), Psychiatric disorder, S/P placement of VNS (vagus nerve stimulation) device, Seizure disorder, Static encephalopathy,and Tremors of nervous system. He has no past medical history of Malignant hyperthermia, Pseudocholinesterase deficiency, or Unspecified adverse effect of anesthesia. SURGICAL: has a past surgical history that includes wisdom teeth extraction (2008); pr insj/rplcmt cranial neurostim gener 2/> eltrds (Left, 10/27/2013); pr unlisted procedure dentoalveolar structures (N/A, 10/20/2014); and pr unlisted procedure dentoalveolar structures (N/A, 12/06/2016). ALLERGIES Amoxicillin, Carbamazepine, Penicillins, and Phenytoin sodium PHYSICAL EXAM INITIAL VS BP: 114/62 (06/06/23 1217), Heart Rate: 74 bpm (06/06/23 1217), Resp: 17 (06/06/23 1217), Pulse: 74(06/06/23 1217), Temp: 98.1 ??F (36.7 ??C) (06/06/23 1217), Temp src: Axillary (06/06/23 1217), SpO2: 100 % (06/06/23 1217), Height: 5' 7 (170.2 cm) (06/06/23 1217), Weight: 79.4 kg (175 lb) (06/06/23 1217), BMI (Calculated): (!) 27.4 (06/06/23 1217) No LMP for male patient. Physical Exam Vitals and nursing note reviewed. Constitutional: General: He is not in acute distress. HENT: Head: Normocephalic and atraumatic. Eyes: General: No scleral icterus. Pupils: Pupils are equal, round, and reactive to light. Cardiovascular: Rate and Rhythm: Normal rate and regular rhythm. Heart sounds: No murmur heard. Pulmonary: Effort: No respiratory distress. Breath sounds: Normal breath sounds. Chest: Chest wall: No tenderness. Abdominal: General: There is no distension. Palpations: Abdomen is soft. Tenderness: There is no abdominal tenderness. There is no guarding or rebound. Musculoskeletal: General: No deformity. Normal range of motion. Cervical back: Normal range of motion and neck supple. Skin: General: Skin is warm and dry. Findings: No rash. Neurological: General: No focal deficit present. Mental Status: He is alert. Mental status is at baseline. Comments: Non verbal, awake, and following examiner with eyes similar to previous documented exam DIAGNOSTICS LAB: CBC WITH DIFFERENTIAL - Abnormal Result Value WBC 4.9 RBC 4.50 HEMOGLOBIN 14.7 HEMATOCRIT 43.0 MCV 95.6 MCH 32.7 (*) MCHC 34.2 RDW 13.3 RDW-STDEV 46.9 PLATELETS 186 MPV 9.5 NEUTROPHILS 54 LYMPHOCYTES 32 MONOCYTES 10 EOSINOPHILS 3 BASOPHILS 1 IMMATURE GRANULOCYTES 0 NEUTROPHIL ABSOLUTE 2.66 LYMPHOCYTE ABSOLUTE 1.59 MONOCYTE ABSOLUTE 0.50 EOSINOPHIL ABSOLUTE 0.15 BASOPHILS ABSOLUTE 0.03 IMMATURE GRANULOCYTES ABSOLUTE 0.01 COMPREHENSIVE METABOLIC PANEL - Abnormal SODIUM 138 POTASSIUM 4.1 CHLORIDE 108 (*) CO2 20 (*) CALCIUM 9.4 BUN 17 CREATININE 0.86 GLUCOSE 96 TOTAL PROTEIN 7.5 ALBUMIN 4.3 BILIRUBIN TOTAL 0.4 ALKALINE PHOSPHATASE 143 (*) AST 28 ALT 46 (*) GFR >60 ANION GAP 10 POC GLUCOSE - Abnormal GLUCOSE POC 105 (*) SPECIMEN SOURCE, GLUCOSE POC Whole Blood LAMOTRIGINE LEVEL ZONISAMIDE LEVEL LACOSAMIDE LEVEL RADIOLOGY: No orders to display EKG: Sinus rhythm, rate in the 70s, normal axis and intervals, no STEMI, non specific ST changes. No previous to compare. PROCEDURES Procedures MEDICAL DECISION MAKING AND PLAN OF CARE -- On initial evaluation, discussed plan for work up with caregiver at bedside. Patients caregiver understands and agrees with the plan. 1326: Dr. Noble, neurology -- patient maxed out on doses. Recommends outpatient follow up. ED provider and ED nurse verbally discussed patient plan of care at this time. Medical Decision Making Summary: 38 year old male with extensive complicated history including intractable seizure presentswith seizure. He is at baseline without intervention in the ED. Case discussed with Dr. Noble, neurology, who recommended discharge home and to continue current medication. He will need short term outpatient follow up and he will follow the lab results for further medical guidance. Differential diagnosis includes, but is not limited to, seizure, subtherapeutic dosing, electrolytedisturbance. By virtue of history and physical, some of these diagnoses can be excluded. Imaging was interpreted by me and notable for n/a. Non-ED notes reviewed: Patient seen for same on 04/19/23 with 2 doses of intranasal diazepam was unable to break seizure. Last seen by neurology on 10/10/22. Patient has vagus nerve stimulator which ahshelped with seizure frequency. Discussed potential for CBD oil if symptoms worsen. Additional information obtained from independent historian, Caregiver and EMS. The following social determinants of health potentially complicated the patient's course and were considered in my plan of care: Housing/Living situation, Financial access to medical care / no insurance / self pay, Transportation needs, Education and life opportunities, and Safety at home Amount and/or Complexity of Data Reviewed Independent Historian: caregiver and EMS External Data Reviewed: notes. Details: Patient seen for same on 04/19/23 with 2 doses of intranasal diazepam was unable to break seizure. Last seen by neurology on 10/10/22. Patient has vagus nerve stimulator which ahs helped with seizure frequency. Discussed potential for CBD oil if symptoms worsen. Labs: ordered. ECG/medicine tests: ordered and independent interpretation performed. MDM Consults: neurology . 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 See after visit summary for patient education on discharged patients. ED Disposition ED Disposition Discharge Condition Stable User Ying Patterson MD Date/Time Emily Jun 06, 2023 2:55 PM Comment -- ATTESTATION STATEMENTS This note has been prepared by Jeremiah Miramontes acting as a scribe for Dr. Lincoln Patterson on 06/06/2023 at 2:15 PM. The scribe's documentation has been prepared under my direction and personally reviewed by me, Dr. Patterson, in its entirety on 06/06/23 at 2:58 PM. I confirm that the note above accurately reflects all work, treatment, procedures, and medical decision making performed by me. 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 [G40.814] Ying Patterson MD 06/06/2023 2:55 PM documented in this encounter Miscellaneous Notes * ED Bed Hold Comment Note - Billie Radford RN - 06/06/2023 11:57 AM CDT Bed: 4 Expected date: 06/06/23 Expected time: 11:44 AM Means of arrival: Susana Comments: 241 - 38M sz x 23 min, now resolved documented in this encounter Plan of Treatment Not on file documented as of this encounter Procedures Procedure Name Priority Date/Time Associated Diagnosis Comments COMPREHENSIVE METABOLIC PANEL Stat 06/06/2023 1:45 PM CDT LACOSAMIDE LEVEL Stat 06/06/2023 12:4 3 PM CDT ZONISAMIDE LEVEL Stat 06/06/2023 12:4 3 PM CDT CBC WITH DIFFERENTIAL Stat 06/06/2023 12:43 PM CDT LAMOTRIGINE LEVEL Stat 06/06/2023 12: 43 PM CDT EKG 12-LEAD Stat 06/06/2023 12:21 PM CDT POC GLUCOSE Stat 06/06/2023 12:02 PM CDT documented in this encounter Results * (ABNORMAL) COMPREHENSIVE METABOLIC PANEL (06/06/2023 1:45 PM CDT) [facility] SODIUM 138 136 - 145 mmol/L 06/06/2023 2:40 PM CDT [facility] POTASSIUM 4.1 3.5 - 5.0 mmol/L 06/06/2023 2:40 PM CDT [facility] Comment:Slightly hemolyzed. Result may be falsely elevated. CHLORIDE 108(H) 98 - 107 mmol/L 06/06/2023 2:40 PM CDT [employer] [facility]ATORY SERVICES [facility] CO2 20(L) 22 - 29 mmol/L 06/06/2023 2:40 PM CDT [employer] [facility]ORY SERVICES [facility] CALCIUM 9.4 8.6 - 10.2 mg/dL 06/06/2023 2:40 PM CDT [employer] [facility] SERVICES [facility] BUN 17 6 - 20 mg/dL 06/06/2023 2:40 PM CDT [facility]OR[facility] SERVICES [facility] CREATININE 0.86 0.67 - 1.17 mg/dL 06/06/2023 2:40 PM CDT [facility] GLUCOSE 96 74 - 99 mg/dL 06/06/2023 2:40 PM CDT [facility] TOTAL PROTEIN 7.5 6.7 - 8.6 g/dL 06/06/2023 2:40 PM CDT [facility] ALBUMIN 4.3 3.5 - 5.2 g/dL 06/06/2023 2:40 PM CDT [facility] BILIRUBIN TOTAL 0.4 0.3 - 1.2 mg/dL 06/06/2023 2:40 PM CDT [facility] ALKALINE PHOSPHATASE 143(H) 40 - 129 U/L 06/06/2023 2:40 PM CDT [facility] AST 28 <41 U/L 06/06/2023 2:40 PM CDT [facility] Comment:Hemolysis present. R esult may be falsely elevated. ALT 46(H) <42 U/L 06/06/2023 2:40 PM CDT [facility] GFR >60 >=60 mL/min/1.7 3 sq meter 06/06/2023 2:40 PM CDT [facility] Comment:eGFR calculated with 2020 CKD-EPI equation. Vegetarian diet, extremely high or low muscle mass, and may affect results. Cystatin C with Glomerular Filtration Rate is a suitable alternative for these patients. ANION GAP 10 8 - 16 mmol/L 06/06/2023 2:40 PM CDT [facility] Blood Venipuncture / Unknown 06/06/2023 1:45 PM CDT 06/06/2023 2:01 PM CDT Narrative [facility] - 06/06/2023 2:40 PM CDT Samples containing indocyanine green cause interferences on Total and/or Direct Bilirubin and must not be measured. Ying Patterson MD CHEMISTRY ORDERAB LES [facility] CLIA# [id number] [facility] [place] [address] * LACOSAMIDE LEVEL (06/06/2023 12:43 PM CDT) [facility] LACOSAMIDE 10.1 mcg/mL 06/14/2023 2:08 PM CDT [employer] [facility] Comment: Expected concentrations of Lacosamide in patients receiving recommended daily dosages: Up to 15.0 mcg/mL. Toxic range not established This test was developed and its analytical performance characteristics have been determined by [email or web address]. It has not been cleared or approved by the FDA. This assay has been validated pursuant to the CLIA regulations and is used for clinical purposes. Blood Venipuncture / Unknown 06/06/2023 12:43 PM CDT 06/06/2023 12:48 PM CDT [facility] [employer] [facility] - 06/14/2023 2:08 PM CDT Performing Organization Information: ?Site ID: [id number] ?Name: [facility] ?Address: [address] [place] [address] ?Director: Hieu Whipple M.D. Ying Patterson MD CHEMISTRY ORDERAB LES Performing Organization Address [facility] Co de Phone Number [facility] [phone] * ZONISAMIDE LEVEL (06/06/2023 12:43 PM CDT) ZONISAMIDE, BLOOD 30.8 10.0 - 40.0 mcg/mL 06/12/2023 9:37 AM CDT [facility] Comment: This test was developed and its analytical performance characteristics have been determined by [email or web address]. It has not been cleared or approved by the FDA. This assay has been validated pursuant to the CLIA regulations and is used for clinical purposes. Blood Venipuncture / Unknown 06/06/2023 12:43 PM CDT 06/06/2023 12:48 PM CDT Narrative [facility] - 06/12/2023 9:37 AM CDT Performing Organization Information: ?Site ID: [id number] ?Name: [facility] ?Address: [address] [place] [address] ?Director: Hieu Whipple M.D. Ying Patterson MD CHEMISTRY ORDERAB LES Performing Organization Address [facility] Co de Phone Number [facility] [phone] * LAMOTRIGINE LEVEL (06/06/2023 12:43 PM CDT) LAMOTRIGINE LEVEL 14.2 2.5 - 15.0 mcg/mL 06/13/2023 7:35 AM CDT [facility] Comment: This test was developed and its analytical performance characteristics have been determined by [email or web address]. It has not been cleared or approved by the FDA. This assay has been validated pursuant to the CLIA regulations and is used for clinical purposes. Blood Venipuncture / Unknown 06/06/2023 12:43 PM CDT 06/06/2023 12:48 PM CDT Narrative [facility] - 06/13/2023 7:35 AM CDT Performing Organization Information: ?Site ID: [id number] ?Name: [facility] ?Address: [address] [place] [id number] ?Director: Hieu Whipple M.D. Ying Patterson MD CHEMISTRY ORDERAB LES [facility] [phone] * (ABNORMAL) CBC WITH DIFFERENTIAL (06/06/2023 12:43 PM CDT) [facility] WBC 4.9 4.0 - 9.8 K/uL 06/06/2023 12:56 PM CDT [employer] LABORATORY SERVICES - [facility] RBC 4.50 4.50 - 5.40 M/uL 06/06/2023 12:56 PM CDT [employer] LAB[facility]ATORY SERVICES - [facility] HEMOGLOBIN 14.7 13.6 - 16.5 g/dL 06/06/2023 12:56 PM CDT [employer] [facility]ORY [facility] - [facility] HEMATOCRIT 43.0 40.0 - 48.0 % 06/06/2023 12:56 PM CDT [facility] - [facility] MCV 95.6 82.0 - 99.0 fL 06/06/2023 12:56 PM CDT [employer] [facility]ORY SERVICES - [facility] MCH 32.7(H) 27.2 - 32.6 pg 06/06/2023 12:56 PM CDT [facility] - [facility] MCHC 34.2 31.5 - 35.5 g/dL 06/06/2023 12:56 PM CDT [facility] - [facility] RDW 13.3 11.5 - 14.5 % 06/06/2023 12:56 PM CDT [facility] - [facility] RDW-STDEV 46.9 37.1 - 48.7 fL 06/06/2023 12:56 PM CDT [employer] [facility]ATORY SERVICES - [facility] PLATELETS 186 140 - 350 K/uL 06/06/2023 12:56 PM CDT [facility] MPV 9.5 9.3 - 12.4 fL 06/06/2023 12:56 PM CDT [facility] NEUTROPHILS 54 % 06/06/2023 12:56 PM CDT [facility] LYMPHOCYTES 32 % 06/06/2023 12:56 PM CDT [facility] MONOCYTES 10 % 06/06/2023 12:56 PM CDT [facility] EOSINOPHILS 3 % 06/06/2023 12:56 PM CDT [facility] BASOPHILS 1 % 06/06/2023 12:56 PM CDT [facility] IMMATURE GRANULOCYTES 0 % 06/06/2023 12:56 PM CDT [facility] NEUTROPHIL ABSOLUTE 2.66 1.90 - 7.00 K/uL 06/06/2023 12:56 PM CDT [facility] LYMPHOCYTE ABSOLUTE 1.59 0.70 - 4.50 K/uL 06/06/2023 12:56 PM CDT [facility] MONOCYTE ABSOLUTE 0.50 0.10 - 1.30 K/uL 06/06/2023 12:56 PM CDT [facility] - [facility] EOSINOPHIL ABSOLUTE 0.15 0.00 - 0.70 K/uL 06/06/2023 12:56 PM CDT [facility] - [facility] BASOPHILS ABSOLUTE 0.03 0.00 - 0.20 K/uL 06/06/2023 12:56 PM CDT [facility] - [facility] IMMATURE GRANULOCYTES ABSOLUTE 0.01 0.00 - 0.03 K/uL 06/06/2023 12:56 PM CDT [facility] Blood Venipuncture / Unknown 06/06/2023 12:43 PM CDT 06/06/2023 12:48 PM CDT Ying Patterson MD HEMATOLOGY ORDERA BLES [facility] LABORATORY SERVICES - [facility] CLIA# [id number] [address] [facility] [place] [address] * EKG 12-LEAD (06/06/2023 12:21 PM CDT) 06/06/2023 12:2 1 PM CDT Narrative INTERFACE SYSTEM - 06/06/2023 12:23 PM CDT ? [facility] ? [address] [place] [address] ? Test Date: ?2023-06-06 Pat Name: ? CURT RYDER ?Department: ?? 36 ? Room: ? H04 H04 Gender: ? Male ? Security Chief Museum: ?? [email or web address] : ?1985 ? Requested By: YING PATTERSON ?? Order Number: [id number] ? Reading MD: ?? Chip Warner ? Measurements Intervals ?[place] ? Rate: ? 71 ? P: ?22 [place]: ? 184 ?QRS: ?3 QRSD: ? 106 ?T: ?11 QT: ? 373 ? QTc: ?406 ? Interpretive Statements Sinus rhythm Nonspecific T Wave Abnormality Electronically Signed On 06-06-2023 12:23:33 CDT by Chip Warner Procedure Note Chip Warner MD - 06/06/2023 [facility] [address] [place] [address] Test Date: 2023-06-06 Pat Name: CURT RYDER Department: 36 Room: [place] [address] Gender: Male Security Chief Museum: tarah : 1985 Requested By: YING PATTERSON Order Number: [id number] Aixa MD: Chip Warner Measurements Intervals [place] Rate: 71 P: 22 [place]: 184 QRS: 3 QRSD: 106 T: 11 QT: 373 QTc: 406 Interpretive Statements Sinus rhythm Nonspecific T Wave Abnormality Electronically Signed On 06-06-2023 12:23:33 CDT by Chip Warner Ying Patterson MD ECG ORDERABLES INTERFACE SYSTEM Refer to clinic/hospital department * (ABNORMAL) POC GLUCOSE (06/06/2023 12:02 PM CDT) GLUCOSE POC 105(H) 74 - 99 mg/dL 06/06/2023 12:02 PM CDT [facility] LABORATORY SERVICES - [facility] SPECIMEN SOURCE, GLUCOSE POC Whole Blood 06/06/2023 12:02 PM CDT [facility] Blood, whole 06/06/2023 12:0 2 PM CDT 06/06/2023 12:09 PM CDT Ying Patterson MD POINT OF CARE DARRIUS CERVANTES [facility] Organization Address City/State/ZIP Co de Phone Number [facility] LABORATORY SERVICES [facility]# [id number] [address] [place] [address] documented in this encounter Visit Diagnoses Diagnosis Breakthrough seizure- Primary Unspecified epilepsy with intractable epilepsy Development delay Unspecified delay in development 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
--- OUTSIDE RECORDS SUMMARY | 2024-02-12 05:14 | XMS_ITS | Encounter Summary ---
Author Organization [facility] Address [address] [place] [address] Care Team Providers Care Detail Assembler Name Role Phone Gulshan Mena DO Primary Care Provider [phone] Encounter Details Date Type Department Care Team (Late st Contact Info) Description 04/23/2023 External Device Data STL ABSTRACTION Provider, Abstract [...] on filedocumented in this encounter Care Teams Detail Assembler Relationship Specialty Start Date End Date Gulshan Mena DO [facility] [address] [place] [address] PCP - General 01/26/15 documented as of this encounter
--- OUTSIDE RECORDS SUMMARY | 2024-02-12 05:14 | XMS_ITS | Encounter Summary ---
Author Organization [facility] Address [address] [facility] Attn: Epic Prelude ADT [place] [address] Care Team Providers Care Cold Header Name Role Phone Gulshan Mena DO Primary Care Provider [phone] Encounter Details Date Type Department Care Team (Latest Contact Info) Description 02/13/2021 Travel Social History Tobacco Use Types Packs/Day [...] Coronavirus / COVID-19? Yes 02/13/2021 5:02 PM CAFETERIA HELPER documented as of this encounter Plan of Treatment Not on file documented as of this encounter Visit Diagnoses Not on filedocumented in this encounter Additional Health Concerns Infection Onset Date Last Indicated Resolved Time R/O COVID-19 02/13/2021 02/13/2021 02/13/2021 6:22 PM CAFETERIA HELPER COVID-19 Comment:Meets CDC guidelines to resolve COVID. MD aware. 02/13/2021 02/13/2021 02/23/2021 8:[address] documented as of this encounter Care Teams Cold Header Relationship Specialty Start Date End Date Gulshan Mena DO [address] [place] [id number] PCP - General 01/26/15 documented as of this encounter
--- OUTSIDE RECORDS SUMMARY | 2024-02-12 05:14 | XMS_ITS | Encounter Summary ---
Author Organization [employer] Address [address] [place] [address] Care Team Providers Care Software Configuration Specialist Name Role Phone Gulshan Mena DO Primary Care Provider [phone] Encounter Details Date Type Department Care Team (Late st Contact Info) Description 04/18/2023 External Device Data STL ABSTRACTION Provider, Abstract [...] on filedocumented in this encounter Care Teams Software Configuration Specialist Relationship Specialty Start Date End Date Gulshan Mena DO [facility] [address] [place] [address] PCP - General 01/26/15 documented as of this encounter
--- OUTSIDE RECORDS SUMMARY | 2024-02-12 05:14 | XMS_ITS | Encounter Summary ---
Author Organization [employer] Address [address] [place] [address] Care Team Providers Care Baseball Inspector And Repairer Name Role Phone Gulshan Mena DO Primary [...] on filedocumented in this encounter Care Teams Baseball Inspector And Repairer Relationship Specialty Start Date End Date Gulshan Mena DO [facility] [address] [place] [phone] PCP - General 01/26/15 documented as of this encounter
--- OUTSIDE RECORDS SUMMARY | 2024-02-12 05:14 | XMS_ITS | Encounter Summary ---
Author Organization [employer] Address 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 MD aware. 02/13/2021 02/13/2021 02/23/2021 8:[address] R/O Respiratory 11/13/2023 11/13/2023 11/13/2023 7 :57 PM CDT Respiratory Syncytial Virus (RSV) 11/13/2023 10 024 12/11/2023 1:16 AM CDT R/O Respiratory 01/07/2024 01/07/2024 01/07/2024 1 1:41 PM TYPEWRITERS FUNCTIONAL TESTER documented as of this encounter Care Teams Ophthalmic Technician Apprentice Relationship Specialty Start Date End Date Gulshan Mena DO [address] [place] [phone] PCP - General 01/26/15 documented as of this encounter
--- OUTSIDE RECORDS SUMMARY | 2024-02-12 05:14 | XMS_ITS | Encounter Summary ---
Author Organization [employer] Address [address] [place] [address] Care Team Providers Care Hand Stoner Name Role Phone Gulshan Mena DO Primary Care Provider [phone] Encounter Details Date Type Department Care Team (Late st Contact Info) Description 08/27/2022 4:20 PM CDT Ancillary Procedure [facility] [address] [place] [address] Swapna Denton, JACKY [address] [place] [address] Pain of great toe, unspecified laterality Social History Tobacco Use Types Packs/Day Years [...] Name Priority Date/Time Associated Diagnosis Comments XR FOOT 3+ VW LEFT Routine 08/27/2022 4: 42 PM CDT Pain of great toe, unspecified laterality documented in this encounter Results * XR FOOT 3+ VW LEFT (08/27/2022 4:42 PM CDT) Anatomical Region Laterality Modality Ankle / Foot Computed Radiogr aphy 08/27/2022 4:43 PM CDT Impressions 08/28/2022 7:47 AM CDT IMPRESSION: ?? 1. No acute osseous abnormality Narrative 08/28/2022 7:47 AM CDT EXAM: XR FOOT 3+ VW LEFT DATE: 08/28/2022 HISTORY: Pain of great toe, unspecified laterality COMPARISON: 08/08/2022. FINDINGS: No fracture, dislocation, or other osseous abnormalities are present. The bone texture and density are normal. The articular surfaces are smooth. No lytic or blastic lesions are demonstrated. Procedure Note Charanjit Dawson MD - 08/28/2022 EXAM: XR FOOT 3+ VW LEFT DATE: 08/28/2022 HISTORY: Pain of great toe, unspecified laterality COMPARISON: 08/08/2022. FINDINGS: No fracture, dislocation, or other osseous abnormalities are present. The bone texture and density are normal. The articular surfaces are smooth. No lytic or blastic lesions are demonstrated. IMPRESSION: 1. No acute osseous abnormality Swapna Denton ELECTRIC VEHICLE ELECTRICIAN DIAGNOSTIC IMAGING O RDERABLES documented in this encounter Visit Diagnoses Diagnosis Pain of great toe, unspecified laterality documented in this encounter Care Teams Hand Stoner Relationship Specialty Start Date End Date Gulshan Mena DO [address] [place] [phone] PCP - General 01/26/15 documented as of this encounter
--- OUTSIDE RECORDS SUMMARY | 2024-02-12 05:14 | XMS_ITS | Encounter Summary ---
Author Organization [employer] Address [address] [place] [address] Care Team Providers Care Diesel Engine Mechanic Apprentice Name Role Phone Gulshan Mena DO Primary Care Provider [phone] Encounter Details Date Type Department Care Team (Late st Contact Info) Description 05/17/2023 External Device Data STL ABSTRACTION Provider, Abstract [...] on filedocumented in this encounter Care Teams Diesel Engine Mechanic Apprentice Relationship Specialty Start Date End Date Gulshan Mena DO [facility] [address] [place] [phone] PCP - General 01/26/15 documented as of this encounter
--- OUTSIDE RECORDS SUMMARY | 2024-02-12 05:14 | XMS_ITS | Encounter Summary ---
Author Organization [facility] Address [address] [place] [address] Care Team Providers Care Spray Ii Painter Name Role Phone Gulshan Mena DO Primary Care Provider [phone] Reason for Referral * Eval and Treat (Routine) - Closed Specialty Diagnoses / Procedures Referred By Padmini vogt Referred To Contact Diagnoses 2019 novel coronavirus disease (COVID-19) [place] [address] [place] [address] Referral ID Status Reason Start Date Expiration Date V isits Requested Visits Authorized [id number] Closed Performing Dept To Review 02/13/2021 02/13/2022 1 1 TRUCTION DRILLER Encounter Details Date Type Department Care Team (Late st Contact Info) Description 02/13/2021 Orders Only [facility] [address] [place] [address] [place] [address] [place] [address] 2018 novel coronavirus disease (COVID-19) (Primary Dx) Social History Tobacco Use Types [...] Coronavirus / COVID-19? Yes 02/13/2021 5:02 PM CONSTRUCTION DRILLER documented as of this encounter Plan of Treatment Scheduled Referrals Name Type Priority Associated Diagnoses Orde r Schedule [facility] Out[facility] Referral Routine 2019 novel coronavirus disease (COVID-19) Ordered: 02/13/2021 documented as of this encounter Visit Diagnoses Diagnosis 2019 novel coronavirus disease (COVID-19)- Primary documented in this encounter Additional Health Concerns Infection Onset Date Last Indicated Resolved Time R/O COVID-19 02/13/2021 02/13/2021 02/13/2021 6:22 PM CONSTRUCTION DRILLER COVID-19 Comment:Meets CDC guidelines to resolve COVID. MD aware. 02/13/2021 02/13/2021 02/23/2021 8:48 AM Maureen HORNE documented as of this encounter Care Teams Spray Ii Painter Relationship Specialty Start Date End Date Gulshan Mena DO [address] [place] [phone] PCP - General 01/26/15 documented as of this encounter
--- OUTSIDE RECORDS SUMMARY | 2024-02-12 05:14 | XMS_ITS | Encounter Summary ---
Author Organization [employer] Address [address] [place] [address] Care Team Providers Care Racing Manager Name Role Phone Gulshan Mena DO Primary Care Provider [phone] Encounter Details Date Type Department Care Team [...] on filedocumented in this encounter Care Teams Racing Manager Relationship Specialty Start Date End Date Gulshan Mena DO [facility] [address] [place] [phone] PCP - General 01/26/15 documented as of this encounter
--- OUTSIDE RECORDS SUMMARY | 2024-02-12 05:14 | XMS_ITS | Encounter Summary ---
Author Organization [facility] Address [address] [place] [address] Care Team Providers Care Packaging Sales Consultant Name Role Phone Gulshan Mena DO Primary Care Provider [phone] Reason for Visit * Reason Comments Seizure Pt presents to ED vi a EMS from care home following seizure. Per EMS pt was not postictal when they arrived. Per care home, pt had two seizures both lasting 10 minutes long. EMS reports the home gave the pt 20 mg of valium prior to their arrival. Pt has hx of seizures/epilepsy and autism. * Auth/Cert (Routine) Specialty Diagnoses / Procedures Referred By Padmini vogt Referred To Contact Emergency Medicine [facility] Emergency Dept [address] [place] [address] Referral ID Status Reason Start Date Expiration Date Visits Re quested Visits Authorized [id number] 1 1 Encounter Details Date Type Department Care Team (Late st Contact Info) Description 06/13/2023 11:04 PM CDT - 06/14/2023 1:08 AM CDT Emergency [facility] Emergency Department [address] [place] [address] Glen Rocha MD [address] [place] [address] Intractable epilepsy without status epilepticus, unspecified epilepsy type (Primary Dx); 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 * Epilepsy (Portuguese) documented in this encounter Medications at Time of Discharge Medication Sig Dispensed Refills Start Date End Date diazePAM (Valtoco) 10 mg/spray (0.1 mL) [place], Non-Aerosol Administer 10 mg in each nostril [...] as of this encounter ED Notes * Tiff Gates RN - 06/14/2023 1:08 AM CDT D/c instructions reviewed with residential child care counselor. All questions answered * Richard Riley RN - 06/14/2023 12:29 AM CDT This RN at bedside to change pt depend. Pt caregiver attempted to have pt provide urine sample but believes that pt went in depend recently [employer] or upon arrival. No questions or complaints from pt caregiver at this time. Call light within reach. Will continue to assess. * Glen Rocha MD - 06/13/2023 11:28 PM CDT History of Present Illness Primary Care Doctor: Gulhsan Mena DO Documented Triage Chief Complaint: Seizure Provider was at the bedside at 11:28 PM Travis Beebe is a 38 y.o. male who presents after a seizure. Patient arrives via EMS from care home. Per care home patient had a 20 minute seizure, 2 10 minute ones. States they gave him 2 10 mg of diazepam. Notes having a 20 minute seizure last week as well. Patient has a history of epilepsy. Denies recent fall or head trauma. Onset: sudden Severity: moderate Duration: 20 minutes Frequency/Progression: N/A Quality: Radiation: Modifiers: Associated symptoms: Patient information was obtained from primarily from the patient's care home History/Exam limitations: patient's condition Review of Systems A comprehensive review of systems was completed. All other systems negative except as marked. See HPI for additional ROS Constitutional: No Fever Eyes: No vision change, no photophobia ENT: No rhinorrhea, No sore throat Respiratory: No cough Cardiac: No chest pain, No palpitations GI: No abdominal pain, no nausea, no vomiting, no diarrhea : No dysuria or genital discharge, no hematuria Musculoskeletal: No joint pain, no muscle aches Skin: No rash Heme: No spontaneous bleeding, no bruising Neuro: No weakness, no numbness/tingling, no difficulty walking Psych: No hallucinations, no acute change in mood Relevant Medical History Past Medical History: Past Medical History: Diagnosis Date ADHD (attention deficit hyperactivity disorder) Adjustment reaction with aggression Allergic rhinitis Autism Constipation COVID-19 virus detected 02/13/2021 02/13/2021 Developmental delay disorder Emmett-Gastaut syndrome Other general symptoms(780.99) Aggression-Adjustment Disorder Psychiatric disorder anxiety S/P placement of VNS (vagus nerve stimulation) device Seizure disorder Static encephalopathy Tremors of nervous system Past Surgical History: Past Surgical History: Procedure Laterality Date HX WISDOM TEETH EXTRACTION 2008 front teeth OR INSJ/RPLCMT CRANIAL NEUROSTIM GENER 2/> ELTRDS Left 10/27/2013 VAGUS NERVE STIMULATOR PLACEMENT performed by Hieu Macias MD at [facility] OR OR UNLISTED PROCEDURE DENTOALVEOLAR STRUCTURES N/A 10/20/2014 DENTAL REHABILITATION performed by Dereck Dunbar DDS at [facility] OR [facility] OR UNLISTED PROCEDURE DENTOALVEOLAR STRUCTURES N/A 12/06/2016 DENTAL REHABILITATION performed by Dereck Dunbar DDS at [facility] OR [facility] Home Medications: Patient's Home Medications Current Home Medications ACETAMINOPHEN (TYLENOL) 325 MG TABLET BISACODYL (DULCOLAX) 5 MG DELAYED RELEASE TABLET BUSPIRONE (BUSPAR) 10 MG ORAL TABLET CLOBAZAM (ONFI) 10 MG TABLET CLONIDINE HCL (CATAPRES) 0.3 MG TABLET DIAZEPAM (VALTOCO) 10 MG/SPRAY (0.1 ML) SPRAY, NON-AEROSOL DOCUSATE SODIUM (COLACE) 100 MG ORAL CAPSULE ERGOCALCIFEROL (VITAMIN D2) 50,000 UNIT CAPSULE GUAIFENESIN (MUCINEX ORAL) LACOSAMIDE (VIMPAT) 100 MG TABLET LACTOSE-FREE FOOD (ENSURE ORAL) LAMOTRIGINE (LAMICTAL) 150 MG TABLET MAGNESIUM HYDROXIDE (MILK OF MAGNESIA) 400 MG/5 ML SUSPENSION MULTIVITAMIN (DAILY-KALYN) TABLET PROPRANOLOL (INDERAL LA) 160 MG LONG ACTING 24 HOUR CAPSULE RANITIDINE (ZANTAC) 150 MG TABLET ZONISAMIDE (ZONEGRAN) 100 MG CAPSULE Medications Modified during this Encounter No medications on file Medications Discontinued during this Encounter No medications on file Allergies: Amoxicillin, Carbamazepine, Penicillins, and Phenytoin sodium Social History: reports that he has never smoked. He has never used smokeless tobacco. He reports that he does not drink alcohol and does not use drugs. Family History: family history includes Cancer in his maternal grandfather; Diabetes in his maternal grandfather and paternal grandmother; Healthy in his brother, brother, sister, and sister; High Cholesterol in hismaternal grandfather; Hypertension in his maternal grandfather, maternal grandmother, and paternal grandmother; Other in his father and mother. Physical Exam BP: 117/75 (06/13/232314), Pulse: 79 (06/13/232314), Resp: 18 (06/13/232314), Temp: 98.2 ??F (36.8 ??C) (06/13/232314), Temp src: Axillary (06/13/232314) General: Alert, no obvious distress, nonverbal HEENT: Normocephalic, atraumatic, Throat clear, Nose without drainage, mucous membranes moist Neck: No JVD Back: Not tender in midline, no CVAT Chest Wall: No tenderness, injury or deformity Heart: RRR without murmur Lungs: CTA = Bilat Abdomen: Soft, non-tender, normal bowel sounds Rectal: Not performed Extremities: No edema, no calf tenderness Skin: No rash noted, no petechiae, no purpura Lymphatic: No lymphadenopathy noted Neuro: No facial droop, good and equal strength in all ext. Psychiatric: normal affect and mood. Other: Studies and Interpretation Pulse Oximetry Interpretation: Saturation: 99% Oxygen Delivery: Room Air Interpretation: Not hypoxic Imaging (all imaging was independently reviewed by me if performed): Imaging Results None Lab: (Reviewed by me if performed), Significant for: Results for orders placed or performed during the hospital encounter of 06/13/23 (from the past 24 hour(s)) POC GLUCOSE Result Value Ref Range GLUCOSE POC 106 (H) 74 - 99 mg/dL SPECIMEN SOURCE, GLUCOSE POC Whole Blood CBC WITH DIFFERENTIAL Result Value Ref Range WBC 5.7 4.0 - 9.8 K/uL RBC 4.00 (L) 4.50 - 5.40 M/uL HEMOGLOBIN 12.9 (L) 13.6 - 16.5 g/dL HEMATOCRIT 37.7 (L) 40.0 - 48.0 % MCV 94.3 82.0 - 99.0 fL MCH 32.3 27.2 - 32.6 pg MCHC 34.2 31.5 - 35.5 g/dL RDW 13.2 11.5 - 14.5 % RDW-STDEV 45.7 37.1 - 48.7 fL PLATELETS 173 140 - 350 K/uL MPV 9.6 9.3 - 12.4 fL NEUTROPHILS 55 % LYMPHOCYTES 30 % MONOCYTES 11 % EOSINOPHILS 3 % BASOPHILS 1 % IMMATURE GRANULOCYTES 0 % NEUTROPHIL ABSOLUTE 3.13 1.90 - 7.00 K/uL LYMPHOCYTE ABSOLUTE 1.72 0.70 - 4.50 K/uL MONOCYTE ABSOLUTE 0.62 0.10 - 1.30 K/uL EOSINOPHIL ABSOLUTE 0.19 0.00 - 0.70 K/uL BASOPHILS ABSOLUTE 0.03 0.00 - 0.20 K/uL IMMATURE GRANULOCYTES ABSOLUTE 0.02 0.00 - 0.03 K/uL COMPREHENSIVE METABOLIC PANEL Result Value Ref Range SODIUM 142 136 - 145 mmol/L POTASSIUM 3.6 3.5 - 5.0 mmol/L CHLORIDE 109 (H) 98 - 107 mmol/L CO2 24 22 - 29 mmol/L CALCIUM 8.9 8.6 - 10.2 mg/dL BUN 18 6 - 20 mg/dL CREATININE 0.92 0.67 - 1.17 mg/dL GLUCOSE 95 74 - 99 mg/dL TOTAL PROTEIN 7.0 6.7 - 8.6 g/dL ALBUMIN 4.4 3.5 - 5.2 g/dL BILIRUBIN TOTAL 0.3 0.3 - 1.2 mg/dL ALKALINE PHOSPHATASE 141 (H) 40 - 129 U/L AST 27 <41 U/L ALT 49 (H) <42 U/L GFR >60 >=60 mL/min/1.73 sq meter ANION GAP 9 8 - 16 mmol/L MAGNESIUM LEVEL Result Value Ref Range MAGNESIUM 1.9 1.6 - 2.6 mg/dL Note: Some of these results may have resulted after patient discharge or admission to the hospital. Medical Decision Making and ED Course Medical Decision Making: Summary: 38 y.o. male presenting w/ recurrent intractable epilepsy with seizure, in the setting of genetic condition, seizure did not ant after Valium as well as magnet use on vagal nerve stimulator. Patient is back to baseline. Differential diagnosis includes, but is not limited to, metabolic concern for electrolyte concern or infectious concern leading to decreased seizure threshold versus intractable epilepsy in the setting of his genetic condition, no head trauma, no signs of acute intracranial process such as mass effect lesion or intracranial hemorrhage. By virtue of history and physical, some of these diagnoses can be excluded. Non-ED notes reviewed: seizure history, vagal nerve stimulator history Additional information obtained from independent historian, Caregiver, gives all of history. The following social determinants of health affected my care of this patient: None Risks: Risks include those of inpatient management including iatrogenic harm, deconditioning, exposure to nosocomial infections. I considered admission vs discharge, and, through shared decision making with the patient when appropriate, the decision was made to Discharge. Progress Note(s) --On initial evaluation, saw and examined the patient. Discussed plan for labs. Patient understandsand agrees with the plan. 12:31 AM: Discussed with Dr. Anguiano (Neurology) covering for his neurologist, they want them to call clinic for follow up and continue care for the time being. ED provider and ED nurse verbally discussed patient plan of care at this time. Procedures: Amount and/or Complexity of Data Reviewed --I reviewed the labs and/or radiology studies, vital signs, and nursing notes. I agree with the nursing notes except as noted in the body of this record. --Clinical lab tests: ordered and reviewed Condition at disposition: Stable : I updated the patient on findings, diagnosis, and plan for discharge. Any prescriptions given are listed below and they were instructed to follow up with the given provider. Pt agrees with the plan and is comfortable going home. The patient is clinically well; my impression is that at this time, they are safe for discharge. I have spent time counseling the patient on their diagnosis, findings, results, and plan including strict return to ER instructions for this diagnosis and mandatory follow up. ED provider and ED nurse verbally discussed patient plan of care at this time Vitals at Discharge: BP 117/75 (BP Location: Left arm, Patient Position (BP): Sitting) Pulse 79 Temp 98.2 ??F (36.8 ??C) (Axillary) Resp 18 SpO2 99% New Prescriptions: . New Prescriptions for this Encounter Follow Up: Deny Noble, DO [address] [facility] [address] [facility] [id number] Schedule an appointment as soon as possible for a visit Diagnosis: Encounter Diagnoses Code Name Primary? 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 Glen Rocha on 06/13/2023 at 12:39 AM. The scribe's documentation has been prepared under my direction and personally reviewed by me, Glen Rocha, in its entirety on 06/14/23 at 12:39 AM. I confirm that the note above accurately reflects all work, treatment, procedures, and medical decision making performed by me. Note: This H+P was created with the aid of dictation software, thus there may be some word substitutions or errors. documented in this encounter Miscellaneous Notes * ED Bed Hold Comment Note - Sebastien Nicholson RN - 06/13/2023 11:05 PM CDT Bed: 01 Expected date: 06/13/23 Expected time: 11:00 PM Means of arrival: [facility]. EMS Comments: Sccad 802 38M seizure documented in this encounter Plan of Treatment Not on file documented as of this encounter Procedures Procedure Name Priority Date/Time Associated Diagnosis Comments CBC WITH DIFFERENTIAL Stat 06/13/2023 11:43 PM CDT LAMOTRIGINE LEVEL Stat 06/13/2023 11: 43 PM CDT MAGNESIUM LEVEL Stat 06/13/2023 11:43 PM CDT COMPREHENSIVE METABOLIC PANEL Stat 06/13/2023 11:43 PM CDT POC GLUCOSE Stat 06/13/2023 11:41 PM CDT documented in this encounter Results * LAMOTRIGINE LEVEL (06/13/2023 11:43 PM CDT) LAMOTRIGINE LEVEL 10.5 2.5 - 15.0 mcg/mL 06/20/2023 8:42 AM CDT [facility] Comment: This test was developed and its analytical performance characteristics have been determined by [facility]. It has not been cleared or approved by the FDA. This assay has been validated pursuant to the CLIA regulations and is used for clinical purposes. Blood Venipuncture / Unknown 06/13/2023 11:43 PM CDT 06/13/2023 11:48 PM CDT Narrative [facility] - 06/20/2023 8:42 AM CDT Performing Organization Information: ?Site ID: [id number] ?Name: [facility] ?Address: [address] [place] [id number] ?Director: Hieu Whipple M.D. Glen Rocha MD CHEMISTRY ORD ERABLES [facility] [phone] * MAGNESIUM LEVEL (06/13/2023 11:43 PM CDT) MAGNESIUM 1.9 1.6 - 2.6 mg/dL 06/14/2023 12:19 AM CDT [facility] Blood Venipuncture / Unknown 06/13/2023 11:43 PM CDT 06/13/2023 11:48 PM CDT Glen Rocha MD CHEMISTRY ORD ERABLES [facility] - [facility]# [id number] [address] [place] [address] * (ABNORMAL) COMPREHENSIVE METABOLIC PANEL (06/13/2023 11:43 PM CDT) SODIUM 142 136 - 145 mmol/L 06/14/2023 12:19 AM T [facility] POTASSIUM 3.6 3.5 - 5.0 mmol/L 06/14/2023 12:19 AM T [facility] CHLORIDE 109(H) 98 - 107 mmol/L 06/14/2023 12:19 AM T [facility] CO2 24 22 - 29 mmol/L 06/14/2023 12:19 AM T [facility] CALCIUM 8.9 8.6 - 10.2 mg/dL 06/14/2023 12:19 AM T [facility] BUN 18 6 - 20 mg/dL 06/14/2023 12:19 AM T [facility] CREATININE 0.92 0.67 - 1.17 mg/dL 06/14/2023 12:19 AM T [facility] GLUCOSE 95 74 - 99 mg/dL 06/14/2023 12:[address] [facility] TOTAL PROTEIN 7.0 6.7 - 8.6 g/dL 06/14/2023 12:19 AM T [facility] ALBUMIN 4.4 3.5 - 5.2 g/dL 06/14/2023 12:19 AM T [facility] BILIRUBIN TOTAL 0.3 0.3 - 1.2 mg/dL 06/14/2023 12:19 AM T [facility] ALKALINE PHOSPHATASE 141(H) 40 - 129 U/L 06/14/2023 12:19 AM T [facility] AST 27 <41 U/L 06/14/2023 12:19 AM [facility] ALT 49(H) <42 U/L 06/14/2023 12:19 AM [facility] GFR >60 >=60 mL/min/1.7 3 sq meter 06/14/2023 12:19 AM [facility] Comment:eGFR calculated with 2020 CKD-EPI equation. Vegetarian diet, extremely high or low muscle mass, and may affect results. Cystatin C with Glomerular Filtration Rate is a suitable alternative for these patients. ANION GAP 9 8 - 16 mmol/L 06/14/2023 12:19 AM [facility] Blood Venipuncture / Unknown 06/13/2023 11:43 PM CDT 06/13/2023 11:48 PM CDT [facility] LABORATORY [facility] - 06/14/2023 12:19 AM CDT Samples containing indocyanine green cause interferences on Total and/or Direct Bilirubin and must not be measured. Glen Rocha MD CHEMISTRY ORD ERABLES [facility]# [id number] [address] [facility] [place] [address] * (ABNORMAL) CBC WITH DIFFERENTIAL (06/13/2023 11:43 PM CDT) Pathologist [facility] WBC 5.7 4.0 - 9.8 K/uL 06/13/2023 11:56 PM [facility] RBC 4.00(L) 4.50 - 5.40 M/uL 06/13/2023 11:56 PM [facility] HEMOGLOBIN 12.9(L) 13.6 - 16.5 g/dL 06/13/2023 11:56 PM [facility] HEMATOCRIT 37.7(L) 40.0 - 48.0 % 06/13/2023 11:56 PM [facility] MCV 94.3 82.0 - 99.0 fL 06/13/2023 11:56 PM CDT [facility] MCH 32.3 27.2 - 32.6 pg 06/13/2023 11:56 PM CDT [facility] MCHC 34.2 31.5 - 35.5 g/dL 06/13/2023 11:56 PM CDT [facility] RDW 13.2 11.5 - 14.5 % 06/13/2023 11:56 PM CDT [facility] RDW-STDEV 45.7 37.1 - 48.7 fL 06/13/2023 11:56 PM CDT [facility] - [facility] PLATELETS 173 140 - 350 K/uL 06/13/2023 11:56 PM CDT [facility] MPV 9.6 9.3 - 12.4 fL 06/13/2023 11:56 PM CDT [facility] NEUTROPHILS 55 % 06/13/2023 11:56 PM CDT [facility] - . [facility] LYMPHOCYTES 30 % 06/13/2023 11:56 PM CDT [facility] MONOCYTES 11 % 06/13/2023 11:56 PM CDT [facility] EOSINOPHILS 3 % 06/13/2023 11:56 PM CDT [facility] - . [facility] BASOPHILS 1 % 06/13/2023 11:56 PM CDT [facility] - . [facility] IMMATURE GRANULOCYTES 0 % 06/13/2023 11:56 PM CDT [facility] - . [facility] NEUTROPHIL ABSOLUTE 3.13 1.90 - 7.00 K/uL 06/13/2023 11:56 PM CDT [facility] LYMPHOCYTE ABSOLUTE 1.72 0.70 - 4.50 K/uL 06/13/2023 11:56 PM CDT [facility] MONOCYTE ABSOLUTE 0.62 0.10 - 1.30 K/uL 06/13/2023 11:56 PM CDT [facility] EOSINOPHIL ABSOLUTE 0.19 0.00 - 0.70 K/uL 06/13/2023 11:56 PM CDT [facility] BASOPHILS ABSOLUTE 0.03 0.00 - 0.20 K/uL 06/13/2023 11:56 PM CDT [facility] SERVICES - [facility] IMMATURE GRANULOCYTES ABSOLUTE 0.02 0.00 - 0.03 K/uL 06/13/2023 11:56 PM CDT [facility] LABORATORY [facility] Blood Venipuncture / Unknown 06/13/2023 11:43 PM CDT 06/13/2023 11:48 PM CDT Glen Rocha MD HEMATOLOGY OR DERABLES [facility] CLIA# [id number] [address] [place] [address] * (ABNORMAL) POC GLUCOSE (06/13/2023 11:41 PM CDT) GLUCOSE POC 106(H) 74 - 99 mg/dL 06/13/2023 11:41 PM CDT [facility] LABORATORY [facility] SPECIMEN SOURCE, GLUCOSE POC Whole Blood 06/13/2023 11:41 PM CDT [facility] LABORATORY 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
--- OUTSIDE RECORDS SUMMARY | 2024-02-12 05:14 | XMS_ITS | Encounter Summary ---
Author Organization [facility] Address [address] [place] [address] Care Team Providers Care Pet Resort Concierge Name Role Phone Gulshan Mena DO Primary Care Provider [phone] Encounter Details Date Type Department Care Team [...] on filedocumented in this encounter Care Teams [employer] Resort Concierge Relationship Specialty Start Date End Date Gulshan Mena DO [facility] [address] [place] [id number] PCP - General 01/26/15 documented as of this encounter
--- OUTSIDE RECORDS SUMMARY | 2024-02-12 05:14 | XMS_ITS | Encounter Summary ---
Author Organization [facility] Address [address] [place] [address] Care Team Providers Care Grails Web Application Developer Name Role Phone Gulshan Mena DO Primary [...] epilepsy [345.41] Procedures VAGUS NERVE STIMULATOR PLACEMENT [facility] Operating Room [address] [place] [phone] Referral ID Status Reason Start Date Expiration Date Visits Re quested Visits Authorized [id number] Closed 1 1 Encounter Details Date Type Department Care Team (Late st Contact Info) Description 10/27/2013 7:30 AM CDT - 10/27/2013 8:34 AM CDT Surgery [facility] Operating Room [address] [place] [phone] Hieu Macias MD [address] [phone] VAGUS NERVE STIMULATOR PLACEMENT Surgery Details Date/Time Status Location OR Service Patient Class Case Class Case Type Trauma Case? 10/27/2013 7:30 AM Posted WASH OR OR 02 General Surgery Surgical OP/Extended Care Elective No Panel 1 Procedure LRB Anes Op Region Wound Class Comments VAGUS NERVE STIMULATOR PLACEMENT Left General Chest Clean-I GENERATOR AND ELECTRODE Surgeon Surgeon Role Service Panel Hieu Macias MD Primary General Surg kodak 1 Case Notes 345.41 CPT 44319 MEDICAID documented in this encounter Social History Tobacco [...] Sign Reading Time Taken Comments Blood Pressure 113/70 10/27/2013 6:56 AM CDT Pulse 66 10/27/2013 6:56 AM CDT Temperature 36.5 ??C (97.7 ??F) 10/27/2013 6:56 AM CD T Respiratory Rate 20 10/27/2013 6:56 AM CDT Oxygen Saturation 99% 10/27/2013 6:56 AM CDT Inhaled Oxygen Concentration - - Weight 74.4 kg (164 lb) 10/27/2013 7:02 AM CDT Height 167.6 cm (5' 6 ) 10/27/2013 6:56 AM CDT Body Mass Index 26.47 10/27/2013 6:56 AM CDT documented in this encounter Discharge Instructions * Discharge Instructions* Fela Colbert RN - 10/27/2013 9:51 AM CDT [place], [place] Vagal Nerve Stimulator Placement- Discharge Instructions [...] MD, FACS in approximately 3 weeks. Call [phone] to schedule day and time of the appointment ??? If you have any questions, please do not hesitate to call our office. [facility], [address], [place], [place] [phone] Hieu Macias MD, FACS POST-SEDATION DISCHARGE INSTRUCTIONS [...] will discuss these with you when you supervisor picking crew your prescription. Please follow any precautions mentioned by your nurse as well. Please call your doctor immediately if you develop any of the following symptoms: ?? Persistent vomiting ?? Difficulty breathing ?? Very pale or grayish skin color ?? Any other symptoms that concern you If unable to reach your doctor, call or come to the Emergency department at [phone] documented in this encounter Medications at Time [...] Psychiatric disorder anxiety ??? Allergic rhinitis ??? [place]-Gastaut syndrome Past Surgical History Procedure Laterality Date [...] and leg swelling. Claudication reported: YES NO ([id number]) Gastrointestinal: Negative for nausea, vomiting, abdominal pain, diarrhea, constipation, blood in stool, abdominal distention, anal bleeding and rectal pain. GERD, Heartburn reported: YES NO ([id number]) Genitourinary: Negative for dysuria, urgency, frequency, hematuria, [...] Patient Active Problem List Diagnosis Code ??? 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 Development delay 783.40 ??? Autism 299.00 ??? ADHD (attention deficit hyperactivity disorder) 314.01 ??? 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 The side effects of voice changes, cough, and local pain were described in great detail to them, in addition to the usual surgical and anesthetic risks of the procedure. 2. The patient/adult gin pole operator requested the procedure be performed and will coordinate with the mother to have her come and give consent to proceed. 3. The surgery will be performed under general anesthesia and will be scheduled in the near future. Hieu Macias MD, FACS ICD-9-CM ICD-10-CM 1. 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 Development delay 783.40 R62.50 3. Autism 299.00 F84.0 4. ADHD (attention deficit hyperactivity disorder) 314.01 F90.9 5. 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 [...] when they are ready for discharge. * Anny-OP - Fela Colbert RN - 10/27/2013 9:45 AM CDT 1. KNOWLEDGE DEFICIT RELATED TO POST-DISCHARGE CARE Interventions: Assess learning needs and willingness to learn; give clear, concise explanations of the care required post-discharge; address patient/family questions and concerns; provide teaching asindicated. Expected Outcomes: Patient and/or family/significant other demonstrates behaviors required for performance of activities enhancing recovery post-discharge. Outcome Met: Yes * Anny-OP - Zo Myles RN - 10/27/2013 9:38 AM CDT 1. POTENTIAL FOR PAIN RELATED TO SURGICAL/PROCEDURAL INTERVENTION Interventions: Assess level of pain/comfort utilizing verbal/non-verbal pain scales; assess cultural or jehovah's witness indicators attached to pain; administer pain medications as prescribed; utilize non-pharmacologic pain control and comfort measures. Expected Outcome: Patient demonstrates and reports adequate pain control. Outcome Met: Yes/ 2. POTENTIAL FOR ALTERATION IN THERMOREGULATORY, CIRCULATORY, RESPIRATORY, FLUID & ELECTROLYTESTATUS Interventions: Perform on-going physical assessment; maintenance of [...] 10/27/2013 8:34 AM CDT Operative Report : [place], [place] Patient: Travis Granados Beebe / 28 y.o. / male : 1985 Date: 10/27/2013 CSN: [id number] Preoperative Diagnosis: Seizure disorder, complex partial, with intractable epilepsy Postoperative Diagnosis: Same Procedure Performed: 1. Implantation of Left Vagal Nerve Stimulator Electrodes and Neurostimulator Generator 2. Device Interrogation and Programming Surgeon: Hieu Macias MD, FACS Surgical Staff: Medical Representative: Arleen Davis RN; Shayla Morocho RN Scrub: Stella Fowler; Concepcion Sanchez General Manager In Training: Mitzi Soares RN Anesthesia: General Estimated Blood Loss: 10 ml Complications: None Findings: The lead impedance was 2077 Ohms and 2049 Ohms on device diagnostics tests. The device was programmed with 0 output in both regular and magnet modes. Implants: Implant Name Type Inv. Item Serial No. Tin Stacker Lot No. LRB No. Used Action GENERATOR VNS 105 - [id number] [place] Left 1 Implanted LEAD VNS THERAPY 2MM 303-20 - [id number] Lead [id number] [place] Left 1 Implanted Description of Technique: After [...] jugular vein in its usual position. 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 Scheduled Medication Order 10/25/2013 10/26/2013 10/27/2013 clindamycin (CLEOCIN) IVPB 600 mg (CANCELED) 600 mg, IV, PRE-PROCEDURE ONCE, Starting on Sat10/27/13 at 0647, Until Sat10/27/13 at 1324, Routine, Pre-op, Antibiotic Indication: Surgical prophylaxis 0725 (New Bag - Prov ider: Shayla Morocho, MAURO)0742 (Stopped - Provider: Shayla Morocho, MAURO) Continuous Medication Order 10/25/2013 10/26/2013 10/27/2013 lactated ringers solution (CANCELED) IV, at 125 mL/hr, PRE-PROCEDURE CONTINUOUS, Starting on Sat10/27/13 at 0700, Until Sat10/27/13 at 1324, Routine, Pre-op 0708 (New Bag - Prov ider: Angie Lynn RN)1026 (Bag Switched - Provider: Fela Colbert, MAURO)1108 (Stopped - Provider: Светлана Anderson, MAURO) PRN Medication Order 10/25/2013 10/26/2013 10/27/2013 sodium chloride 0.9 % irrigation irrigation (CANCELED) INTRA-PROCEDURE PRN, Starting on Sat10/27/13 at 0750, Until Sat10/27/13 at 0839, Routine, Intra-op 0750 (Given - Provid er: Hieu Macias MD - Comment: Available on back table for irrigation and clean up) documented in this encounter Care Teams Grails Web Application Developer Relationship Specialty Start Date End Date Gulshan Mena DO PCP - General Internal Medicine 04/22/11 01/25/15 documented as of this encounter
--- OUTSIDE RECORDS SUMMARY | 2024-02-12 05:14 | XMS_ITS | Encounter Summary ---
Author Organization [employer] Address [address] [place] [address] Care Team Providers Care Black Top Roller Name Role Phone Gulshan Mena DO Primary Care Provider [phone] Encounter Details Date Type Department Care Team (Late st Contact Info) Description 05/07/2023 External Device Data STL ABSTRACTION Provider, Abstract [...] on filedocumented in this encounter Care Teams Black Top Roller Relationship Specialty Start Date End Date Gulshan Mena DO [facility] [address] [place] [phone] PCP - General 01/26/15 documented as of this encounter
--- OUTSIDE RECORDS SUMMARY | 2024-02-12 05:14 | XMS_ITS | Encounter Summary ---
Author Organization [facility] Address [address] [place] [address] Care Team Providers Care Cleaning Supervisor Name Role Phone Gulshan Mena DO Primary Care Provider [phone] Reason for Visit * Reason Comments Toe Injury L big toe injuryHas a seizure on 08/01 in the shower; hit his toe and now has bruisingParent is requesting imaging Encounter Details Date Type Department Care Team (Late st Contact Info) Description 08/08/2022 11:40 AM CDT Office Visit [facility] [address] [place] [address] Teena Troy [facility] [address] [place] [address] Bruised toe (Primary Dx) Social History Tobacco Use Types [...] Sign Reading Time Taken Comments Blood Pressure 117/89 08/08/2022 11:31 AM CDT Pulse 79 08/08/2022 11:31 AM CDT Temperature 36.9 ??C (98.4 ??F) 08/08/2022 11:31 AM C DT Respiratory Rate 16 08/08/2022 11:31 AM CDT Oxygen Saturation 97% 08/08/2022 11:31 AM CDT Inhaled Oxygen Concentration - - Weight 83.5 kg (184 lb) 08/08/2022 11:31 AM CDT Height 170.2 cm (5' 7 ) 08/08/2022 11:31 AM CDT Body Mass Index 28.82 08/08/2022 11:31 AM CDT documented in this encounter Patient Instructions * Attachments The following attachments cannot be sent through Care Everywhere. * Ingrown Toenail (Azeri) documented in this encounter Progress Notes * Teena Troy, JACKY - 08/08/2022 11:40 AM CDT Images from the original note were not included. Chief Complaint Patient presents with Toe Injury L big toe injury Has a seizure on 08/01 in the shower; hit his toe and now has bruising Parent is requesting imaging Current Outpatient Medications Medication Sig Dispense Refill diazePAM (Valtoco) 10 mg/spray (0.1 mL) [place], Non-Aerosol Administer 10 mg in each nostril [...] for this visit. Allergies Allergen Reactions Amoxicillin Hives Carbamazepine Other (See Comments) tremors Penicillins Hives Phenytoin Sodium Rash and Nausea and Vomiting Past Medical History: Diagnosis Date ADHD (attention deficit hyperactivity disorder) Adjustment reaction with aggression Allergic rhinitis Autism Constipation COVID-19 virus detected 02/13/2021 02/13/2021 Developmental delay disorder [place]-Gastaut syndrome Other general symptoms(780.99) Aggression-Adjustment Disorder Psychiatric disorder anxiety S/P placement of VNS (vagus nerve stimulation) device Seizure disorder Static encephalopathy Tremors of nervous system Past Surgical History: Procedure Laterality Date HX WISDOM TEETH EXTRACTION 2008 front teeth [place] INSJ/RPLCMT CRANIAL NEUROSTIM GENER 2/> ELTRDS Left 10/27/2013 VAGUS NERVE STIMULATOR PLACEMENT performed by Hieu Macias MD at [facility] [place] UNLISTED PROCEDURE DENTOALVEOLAR STRUCTURES N/A 10/20/2014 DENTAL REHABILITATION performed by Dereck Dunbar DDS at [facility] OR [facility] [place] UNLISTED PROCEDURE DENTOALVEOLAR STRUCTURES N/A 12/06/2016 DENTAL REHABILITATION performed by Dereck Dunbar DDS at [facility] OR [facility] Family History Problem Relation Name Age of [...] Never Substance Use Topics Alcohol use: No Travis Granados Abiel is a 37 y.o. male who presents with chief complaint of left great toe/ foot pain for 7 days after an injury. Mechanism of injury: seizure, ptis nonverbal .There is associated swelling, pain at the left toes of foot. Symptoms are worsened with walking, weight bearing (is able to bear weight), better with rest. Severity is described as mild. ROM is normal for pt . Associated symptoms : none History of previous similar symptoms: none Allergy and Medication lists are reviewed Review of Systems - No pain above including ankle or below the joint going to toes, and no diminished light touch, motor loss. OBJECTIVE: BP 117/89 Pulse 79 Temp 98.4 ??F (36.9 ??C) (Tympanic) Resp 16 Ht 5' 7 (1.702 m) Wt 83.5kg (184 lb) SpO2 97% BMI 28.82 kg/m?? Physical Examination: NAD, AOX4. ecchymoses at toes of left foot There is no bony tenderness over the rest of the foot including the toes, and proximally to the ankle. Ankle is normal - no swelling, bruising, non-tender, FROM. Neurologic - nl motor and lt touch distally to area of injury/pain. Vascular - nl color, foot pulses, cap refill distally. Xray (3 view) of left foot: negative for fracture Reading Physician Reading Date Result Priority Quoc Brown DO [phone] 08/08/2022 Narrative & Impression EXAM: Left foot three views. DATE: 08/08/2022 11:42 AM. HISTORY: Fall, left great toe bruising. COMPARISON: None. FINDINGS: Mild motion on the AP projection limits detail. Bone island within the first proximal phalanx distally. No visible fracture or dislocation. Soft tissues appear unremarkable. IMPRESSION: 1. No acute radiographic process of the left foot. Follow-up in 7-10 days if there is persistent pain. DICTATION LOCATION: Location 1 - [facility] Specimen Collected: 08/08/22 11:42 CDT Last Resulted: 08/08/22 11:48 CDT ASSESSMENT AND PLAN: ICD-10-CM ICD-9-CM 1. Bruised toe S90.129A 924.3 XR FOOT 3+ VW LEFT An After Visit Summary was printed and given to the patient. Discussed concerns of ingrown toenail and referred to Podiatry for proper care and removal. documented in this encounter Miscellaneous Notes * Patient Instructions - Teena Troy FNP - 08/08/2022 11:40 AM CDT Images from the original note were not included. Reading Physician Reading Date Result Priority Quoc Brown DO [phone] 08/08/2022 Narrative & Impression EXAM: Left foot three views. DATE: 08/08/2022 11:42 AM. HISTORY: Fall, left great toe bruising. COMPARISON: None. FINDINGS: Mild motion on the AP projection limits detail. Bone island within the first proximal phalanx distally. No visible fracture or dislocation. Soft tissues appear unremarkable. IMPRESSION: 1. No acute radiographic process of the left foot. Follow-up in 7-10 days if there is persistent pain. DICTATION LOCATION: Location [address] [place] [address] Specimen Collected: 08/08/22 11:42 CDT Last Resulted: 08/08/22 11:48 CDT Continue symptomatic treatment of elevation For ingrown toenail refer to prosthetic technician for proper care and removal of nail Recheck with PCP if needed documented in this encounter Plan of Treatment Not on file documented as of this encounter Results * XR FOOT 3+ VW LEFT (08/08/2022 11:42 AM CDT) Anatomical Region Laterality Modality Ankle / Foot Computed Radiogr aphy 08/08/2022 11:4 2 AM CDT Impressions 08/08/2022 11:48 AM CDT IMPRESSION: ?? 1. No acute radiographic process of the left foot. Follow-up in 7-10 days if there is persistent pain. DICTATION LOCATION: Location [address] [place] [address] Narrative 08/08/2022 11:48 AM CDT EXAM: Left foot three views. DATE: 08/08/2022 11:42 AM. HISTORY: Fall, left great toe bruising. COMPARISON: None. FINDINGS: Mild motion on the AP projection limits detail. Bone island within the first proximal phalanx distally. No visible fracture or dislocation. Soft tissues appear unremarkable. Procedure Note Quoc Brown DO - 08/08/2022 EXAM: Left foot three views. DATE: 08/08/2022 11:42 AM. HISTORY: Fall, left great toe bruising. COMPARISON: None. FINDINGS: Mild motion on the AP projection limits detail. Bone island within the first proximal phalanx distally. No visible fracture or dislocation. Soft tissues appear unremarkable. IMPRESSION: 1. No acute radiographic process of the left foot. Follow-up in 7-10 days if there is persistent pain. DICTATION LOCATION: Location - [facility] Teena Troy [facility] DIAGNOSTIC IMAGING ORDERABLES documented in this encounter Visit Diagnoses Diagnosis Bruised toe- Primary Contusion of toe Bruised toe Contusion of toe documented in this encounter Care Teams Cleaning Supervisor Relationship Specialty Start Date End Date Gulshan Mena DO [address] [place] [address] PCP - General 01/26/15 documented as of this encounter
--- OUTSIDE RECORDS SUMMARY | 2024-02-12 05:14 | XMS_ITS | Encounter Summary ---
Author Organization [facility] Address [address] [place] [address] Care Team Providers Care Guest Services Name Role Phone Gulshan Mena DO Primary Care Provider [phone] Encounter Details Date Type Department Care Team (Late st Contact Info) Description 08/08/2022 11:45 AM CDT Ancillary Procedure [facility] [address] [place] [phone] Teena Troy, [employer] [address] [place] [address] Bruised toe Social History Tobacco Use Types Packs/Day Years [...] Diagnosis Comments XR FOOT 3+ VW LEFT Stat 08/08/2022 11 :42 AM CDT Bruised toe documented in this encounter Results * XR FOOT 3+ VW LEFT (08/08/2022 11:42 AM CDT) Anatomical Region Laterality Modality Ankle / Foot Computed Radiogr aphy 08/08/2022 11:4 2 AM CDT Impressions 08/08/2022 11:48 AM CDT IMPRESSION: ?? 1. No acute radiographic process of the left foot. Follow-up in 7-10 days if there is persistent pain. DICTATION LOCATION: Location [address] [place] [address] Narrative 08/08/2022 11:48 AM CDT EXAM: Left foot three views. DATE: 08/08/2022 11:42 AM. HISTORY: Fall, left great toe bruising. COMPARISON: None. FINDINGS: Mild motion on the AP projection limits detail. Bone island within the first proximal phalanx distally. No visible fracture or dislocation. Soft tissues appear unremarkable. Procedure Note MarthaQuoc stovallDO - 08/08/2022 EXAM: Left foot three views. [...] there is persistent pain. DICTATION LOCATION: Location [address] [place] [address] Teena RICO DIAGNOSTIC IMAGING ORDERABLES documented in this encounter Visit Diagnoses Diagnosis Bruised toe Contusion of toe documented in this encounter Care Teams Guest Services Relationship Specialty Start Date End Date Gulshan Mena DO [address] [place] [address] PCP - General 01/26/15 documented as of this encounter
== END 2024-02-05 11:25 | disposition home or self-care (01) ==
PROVIDERS: Emergency Provider Emergency Medicine; PCP Internal Medicine
DX: R56.9 Unspecified convulsions (principal); Z20.822 Contact with and (suspected) exposure to COVID-19; Z87.820 Personal history of traumatic brain injury
CPT/HCPCS: 36415; 71045; 80053; 81003; 83605; 85025; 87637; 96361; 96374; 99284; J2060; J7030